=== PATIENT | female | born 1975 | race Two or more races ===

== ENCOUNTER 2020-01-14 08:03 | Emergency (ER) | payer MEDICAID, SELFPAY ==
[2020-01-14 08:12] VITALS: BP 119/63; PULSE 79; RESP 16; TEMP 36.3; O2SAT 99; BMI 22.1
--- NOTE | 2020-01-14 08:12 | XR_ITS ---
EXAMINATION: XR CHEST CLINICAL INFORMATION: Cough COMPARISON: Chest radiographs 05/26/2019, 04/23/2019 TECHNIQUE: Frontal x2 views of the chest was obtained. FINDINGS: The lungs are clear. The vascularity is normal. There is no airspace consolidation or effusion. The heart is normal in size. The hilar and mediastinal contours and visualized bony structures are unremarkable. IMPRESSION: Unremarkable examination.
--- NOTE | 2020-01-14 08:12 | ED.URI ---
HPI - URI/Sore Throat General Chief Complaint: Upper Respiratory Symptoms Stated Complaint: cold symptoms Time Seen by Provider: 01/14/20 08:11 Source: patient Mode of arrival: ambulatory Limitations: no limitations History of Present Illness MD elicited complaint: cough and rhinorrhea Pertinent past history: asthma Onset (ago): day(s) (7) Consistency: constant Severity: moderate Description of mucous: clear and watery Able to tolerate fluids by mouth: Yes Exacerbating factors: nothing Relieving factors: nothing Associated symptoms: chills, myalgias, rhinorrhea, nasal congestion, cough and shortness of breath Treatments prior to arrival: other (using inhaler more frequently ) Related Data Previous Rx's Medication Instructions Recorded prednisone 40 mg PO DAILY 5 Days #10 tab 01/14/20 Allergies Allergy/AdvReac Type Severity Reaction Status Date / Time No Known Allergies Allergy Unverified 12/20/19 15:51 dust Allergy Unknown Uncoded 08/03/11 00:00 NKDA Allergy Unknown Uncoded 08/03/11 00:00 Review of Systems Review of Systems: Constitutional : no Fever, positive Chills, positive fatigue, positive Malaise ENT/Mouth : no sore throat, positive runny nose Eyes: No Discharge Cardiovascular : No Chest Pain, positive dyspnea Respiratory : positive Cough, No Sputum Gastrointestinal : No Nausea, No Vomiting, No Diarrhea Genitourinary : No Dysuria, No Urinary Frequency Musculoskeletal : positive Myalgia Skin : No rash Neuro : No Headache PMFSH Past Medical History Medical History Asthma Surgical History History of carpal tunnel release Social History Social History (Updated 01/14/20 @ 08:13 by Queenie Duffy DO) Smoking Status: Current every day smoker Use of substances other than those prescribed or required for medical reasons: No Advance Directives: No Advance Directives Information Provided: Yes Physical Exam Vital Signs: Vital Signs: Vital Signs Temp Pulse Resp BP Pulse Ox 01/14/20 08:12 97.3 F 79 16 119/63 99 Body Mass Index 22.1 Appearance: Alert. Oriented X3. No acute distress. Eyes: Pupils equal, round and reactive to light. ENT: Pharynx normal. Neck: Normal inspection. Neck supple. CVS: Normal heart rate and rhythm. Pulses normal. Respiratory: No respiratory distress. Breath sounds normal. Abdomen: Soft and nontender. Skin: Skin warm and dry. Normal skin color. Normal skin turgor. Extremities: No lower extremity edema. Normal ROM Neuro: Oriented X 3. No motor deficit. No sensory deficit. Course Course Course Narrative: negative CXR stable for DC MDM - URI/Sore Throat MDM Narrative Medical decision making narrative: not toxic, well hydrated, no hypoxia, clear lungs hx of asthma here with URI will obtain CXR to r/o pneumonia, using INH at home frequently - start on steroids and test for COVID. Discharge Plan Discharge Clinical Impression: Upper respiratory infection Patient Disposition: Home, Self-Care Instructions: Viral Syndrome (ED), COVID-19 (Coronavirus Disease 2019) (ED) Prescriptions: New prednisone 20 mg tablet 40 mg PO DAILY 5 Days Qty: 10 RF: 0 Referrals: Dory Ray MD [Primary Care Provider] - 2 days (if not better)
== END 2020-01-14 09:00 | disposition home or self-care (01) ==
LOC: HO.ED 08:39
PROVIDERS: Emergency Provider Emergency Medicine; PCP Internal Medicine
DX: J06.9 Acute upper respiratory infection, unspecified (principal); Z20.828 Contact with and (suspected) exposure to other viral communicable diseases; J02.9 Acute pharyngitis, unspecified; J45.909 Unspecified asthma, uncomplicated; F17.200 Nicotine dependence, unspecified, uncomplicated
CPT/HCPCS: 71045; 87635; 99284

== ENCOUNTER 2020-02-06 09:31 | Outpatient (REF) | payer MEDICAID, SELFPAY ==
[2020-02-06 13:21] LABS: CT PCR NOT DETECTED (Not Detect.); NG PCR NOT DETECTED (Not Detect.)
== END 2020-02-06 09:32 | disposition home or self-care (01) ==
LOC: HO.LAB 09:31
PROVIDERS: PCP Internal Medicine; Visit Provider Obstetrics & Gynecology
DX: Z01.419 Encounter for gynecological examination (general) (routine) without abnormal findings (principal); N84.1 Polyp of cervix uteri; R10.2 Pelvic and perineal pain; N92.1 Excessive and frequent menstruation with irregular cycle; N63.13 Unspecified lump in the right breast, lower outer quadrant; F17.200 Nicotine dependence, unspecified, uncomplicated; Z79.52 Long term (current) use of systemic steroids
CPT/HCPCS: 81025; 87491; 87591; 88305

== ENCOUNTER 2020-02-18 09:54 | Outpatient (REF) | payer MEDICAID, SELFPAY ==
[2020-02-18 11:36] LABS: Hemoglobin 12.3 g/dl (12.0-16.0); Mean Corpuscular HGB Conc 33.2 g/dl (31.0-35.0); Mean Corpuscular Volume 96.4 fL (80-98); Mean Platelet Volume 10.3 fL (9.4-12.3); Platelet Count 247 X10*3/uL (160-400); Red Blood Count 3.84 X10*6/uL (4.20-5.50); Red Cell Distribution Width 13.1 % (11.0-16.0); White Blood Count 6.1 X10*3/uL (4.8-10.8)
[2020-02-18 12:21] LABS: Thyroid Stimulating Hormone 2.12 uIU/mL (0.32-4.0)
[2020-02-18 12:38] LABS: HCG Quantitative 3 mIU/mL
== END 2020-02-18 09:55 | disposition home or self-care (01) ==
LOC: HO.LAB 09:54
PROVIDERS: PCP Internal Medicine; Visit Provider Obstetrics & Gynecology
DX: N92.1 Excessive and frequent menstruation with irregular cycle (principal); R10.2 Pelvic and perineal pain
CPT/HCPCS: 36415; 84443; 84702; 85027

== ENCOUNTER → 2020-02-19 10:22 | Outpatient (BNVA) | payer MEDICAID, SELFPAY | PROVIDERS: PCP Internal Medicine; Visit Provider Urology | DX: N39.3 Stress incontinence (female) (male) (principal) | CPT/HCPCS: 51798 ==

== ENCOUNTER 2020-02-20 13:46 | Outpatient (REF) | payer MEDICAID, SELFPAY ==
--- NOTE | 2020-02-20 13:51 | MM_ITS ---
EXAMINATION: MM DIAGNOSTIC DIGITAL BREAST TOMOSYNTHESIS, BILATERAL US DIAGNOSTIC ULTRASOUND BREAST, RIGHT CLINICAL INFORMATION: Chronic palpable olive-sized nodule noted by patient posterior inferior right breast near inframammary fold 7:00 position. Also pain right 8:00-9:00 position. No discharge. Family history breast cancer in sister. The lifetime risk of breast cancer based on the Tyrer-Cuzick Model is 15%. COMPARISON: Mammography: 03/01/2018, 12/27/2016, 06/16/2016, 11/21/2015 TECHNIQUE: Digital breast tomosynthesis is performed in both the craniocaudal and mediolateral oblique views along with computer-aided detection (CAD). Synthesized 2D images are generated from the tomosynthesis. Additional exaggerated right CC view is provided. Ultrasound right breast is targeted to both areas of concern, palpable area inferior breast and lateral breast. Patient is able to point to the areas of concern at time of imaging. Grayscale imaging and color Doppler are performed without and with harmonics. FINDINGS: There are scattered areas of fibroglandular density (ACR BI-RADS breast composition Category b). Breast parenchymal pattern is similar to prior studies. There is no developing density. There is denser breast tissue in the outer quadrant similar to prior studies. There is no interval mass or architectural abnormality. No abnormal calcification. No skin thickening or coarsening of the Hugo's ligaments. No adenopathy. Ultrasound right breast demonstrates no cystic or solid mass, architectural abnormality, or focal duct ectasia. No skin thickening or edema tracking in the soft tissue planes. Results are discussed with the patient at time of visit. MM/MM diagnostic mammo BI IMPRESSION: 1. No mammographic evidence of malignancy or focal inflammatory changes. 2. Unremarkable targeted right breast ultrasound. ASSESSMENT: BI-RADS 1: Negative RECOMMENDATION: 1. Patient should be managed based on the clinical impression. If clinically indicated, further evaluation may be considered with surgical consult. Decision to proceed with biopsy should be based on clinical grounds and degree of clinical concern. 2. Otherwise, routine annual screening mammography. This patient's information was entered into a reminder system with a target due date for their next mammogram.
== END 2020-02-20 13:47 | disposition home or self-care (01) ==
LOC: HO.MAMMO 13:46
PROVIDERS: PCP Internal Medicine; Visit Provider Obstetrics & Gynecology
DX: N63.13 Unspecified lump in the right breast, lower outer quadrant (principal); N64.52 Nipple discharge; F17.200 Nicotine dependence, unspecified, uncomplicated; Z79.899 Other long term (current) drug therapy
CPT/HCPCS: 76642; 77066; 99202

== ENCOUNTER 2020-02-22 10:16 | Outpatient (REF) | payer MEDICAID, SELFPAY | END 2020-02-22 10:17 | disposition home or self-care (01) | LOC: HO.CT 10:16 | PROVIDERS: Visit Provider Obstetrics & Gynecology | DX: Z13.89 Encounter for screening for other disorder (principal) ==

== ENCOUNTER 2020-03-05 08:24 | Outpatient (REF) | payer MEDICAID, SELFPAY ==
[2020-03-06 09:36] LABS: BV Int Neg Control Negative (Negative); BV Int Pos Control Positive (Positive)
[2020-03-11 11:30] LABS: CT PCR NOT DETECTED (Not Detect.); NG PCR NOT DETECTED (Not Detect.)
== END 2020-03-05 08:25 | disposition home or self-care (01) ==
LOC: HO.LNP 08:24
PROVIDERS: PCP Internal Medicine; Visit Provider Obstetrics & Gynecology
DX: N76.0 Acute vaginitis (principal); N92.1 Excessive and frequent menstruation with irregular cycle; B96.89 Other specified bacterial agents as the cause of diseases classified elsewhere
CPT/HCPCS: 87480; 87491; 87510; 87591; 87660; 99212

== ENCOUNTER 2020-03-07 07:49 | Outpatient (REF) | payer MEDICAID, SELFPAY ==
--- NOTE | 2020-03-07 07:52 | CT_ITS ---
EXAMINATION: CT ABDOMEN AND PELVIS WITH CONTRAST CLINICAL INFORMATION: R10.2 - Pelvic and perineal pain. Age 44. COMPARISON: CT abdomen and pelvis with contrast 11/14/2019, 03/03/2019 TECHNIQUE: Multidetector volumetric images were obtained from the superior aspect of the liver through the pubic symphysis following administration 85 mL of Omnipaque 350 intravenous contrast. Sagittal and coronal reformatted images were obtained on the technologist's workstation. Oral contrast: No This CT examination was performed using dose optimization techniques as appropriate, variously including the following: *Automated exposure control *Adjustment of mA and/or kV according to patient size (this includes techniques or standardized protocols for targeted exams where dose is matched to indication/reason for exam; i.e. extremities or head) *Use of iterative reconstruction technique DLP: 264 mGy-cm FINDINGS: LUNG BASES: Minor disc atelectasis left lateral and bilateral posterior bases. No airspace consolidation or effusion. LIVER, GALLBLADDER, AND BILIARY TREE: Liver is normal in size and smooth in contour and normal in attenuation. There is no focal hepatic parenchymal lesion or intrahepatic ductal dilatation. The gallbladder is unremarkable with no evidence of radiopaque gallstones, gallbladder wall thickening, or obvious pericholecystic inflammatory changes. PANCREAS: Unremarkable. SPLEEN: Unremarkable. ADRENAL GLANDS: Unremarkable. KIDNEYS AND URETERS: The kidneys are normal in size and smooth in contour and enhance symmetrically. There is a small cyst again noted lower pole left kidney. No hydronephrosis, hydroureter, or perinephric stranding. BLADDER: Unremarkable. GASTROINTESTINAL TRACT: There is no bowel obstruction or inflammatory changes in the bowel or mesentery. There is moderate stool scattered throughout the colon. The appendix is normal. No ascites or fluid collection. ABDOMINAL WALL: No significant hernia is appreciated. LYMPH NODES: No lymphadenopathy. VASCULAR: Unremarkable. PELVIC VISCERA: Bilateral tubal ligation clips suggested. Anteverted uterus. Benign-appearing left adnexal cyst with fine nonenhancing internal septation and overall size 5.0 x 4.0 x 3.6 cm. No right adnexal mass. No pelvic ascites or fluid collection. OSSEOUS STRUCTURES: Unremarkable. CT/CT abdomen pelvis w con IMPRESSION: 1. Benign-appearing left adnexal cyst 5.0 x 4.0 x 3.6 cm with single fine avascular internal septation. No ascites. 2. No inflammatory changes in bowel or mesentery. Normal appendix.
[2020-03-07] MEDS: iohexoL 350 MG/ML 100 ML INFUS..BTL 85 ML IV (10:49)
[2020-03-07] MEDS: Barium Sulfate Oral (Berry) 450 ML ORAL.SUSP 900 ML PO (10:50)
== END 2020-03-07 07:50 | disposition home or self-care (01) ==
LOC: HO.CT 07:49
PROVIDERS: PCP Internal Medicine; Visit Provider Obstetrics & Gynecology
DX: R10.2 Pelvic and perineal pain (principal)
CPT/HCPCS: 74177; Q9967

== ENCOUNTER 2020-03-24 13:43 | Emergency (ER) | payer MEDICAID, SELFPAY ==
[2020-03-24 13:57] VITALS: BP 113/61; PULSE 81; RESP 15; TEMP 36.6; O2SAT 98; BMI 22.3
== END 2020-03-24 17:46 | disposition left against medical advice (07) ==
PROVIDERS: Emergency Provider Emergency Medicine; PCP Internal Medicine
DX: R10.9 Unspecified abdominal pain (principal); R11.0 Nausea
CPT/HCPCS: 99282

== ENCOUNTER 2020-03-26 07:51 | Outpatient (REF) | payer MEDICAID, SELFPAY ==
[2020-03-26 10:15] LABS: HCG Quantitative < 2 mIU/mL
[2020-03-27 10:07] LABS: Follicle Stimulating Hormone 12.4 mIU/mL; Lutenizing Hormone 12.9 mIU/mL
[2020-03-27 11:42] LABS: CA-125 15 U/mL (<35)
== END 2020-03-26 07:52 | disposition home or self-care (01) ==
LOC: HO.LAB 07:51
PROVIDERS: PCP Internal Medicine; Visit Provider Obstetrics & Gynecology
DX: N83.299 Other ovarian cyst, unspecified side (principal); N92.1 Excessive and frequent menstruation with irregular cycle; R79.89 Other specified abnormal findings of blood chemistry
CPT/HCPCS: 58100; 81025; 83001; 83002; 84702; 86304; 99212

== ENCOUNTER → 2020-04-09 08:39 | Outpatient (BNVA) | payer MEDICAID, SELFPAY | PROVIDERS: PCP Internal Medicine; Visit Provider Obstetrics & Gynecology | DX: N63.11 Unspecified lump in the right breast, upper outer quadrant (principal); N92.1 Excessive and frequent menstruation with irregular cycle | CPT/HCPCS: 99212 ==

== ENCOUNTER 2020-04-17 14:10 | Outpatient (REF) | payer MEDICAID, SELFPAY | END 2020-04-17 14:11 | disposition home or self-care (01) | LOC: HO.LAB 14:10 | PROVIDERS: Visit Provider Internal Medicine | DX: Z20.822 Contact with and (suspected) exposure to COVID-19 (principal) | CPT/HCPCS: 36415; C9803; U0003 ==

== ENCOUNTER 2020-04-22 07:46 | Emergency (ER) | payer MEDICAID, SELFPAY | END 2020-04-22 11:16 | disposition left against medical advice (07) | PROVIDERS: Emergency Provider Emergency Medicine; PCP Internal Medicine | DX: J45.909 Unspecified asthma, uncomplicated (principal) ==

== ENCOUNTER 2020-04-24 09:33 | Outpatient (REF) | payer MEDICAID, SELFPAY | END 2020-04-24 09:34 | disposition home or self-care (01) | LOC: HO.LAB 09:33 | PROVIDERS: PCP Internal Medicine; Visit Provider Obstetrics & Gynecology | DX: N84.1 Polyp of cervix uteri (principal); N92.1 Excessive and frequent menstruation with irregular cycle; N76.0 Acute vaginitis; B96.89 Other specified bacterial agents as the cause of diseases classified elsewhere | CPT/HCPCS: 88305; 99212 ==

== ENCOUNTER 2020-04-28 16:54 | Outpatient (REF) | payer MEDICAID, SELFPAY | END 2020-04-28 16:55 | disposition home or self-care (01) | LOC: HO.LAB 16:54 | PROVIDERS: Visit Provider Internal Medicine | DX: Z20.822 Contact with and (suspected) exposure to COVID-19 (principal) | CPT/HCPCS: 36415; C9803; U0003 ==

== ENCOUNTER 2020-04-29 14:39 | Outpatient (REF) | payer MEDICAID, SELFPAY ==
--- NOTE | 2020-04-29 14:42 | US_ITS ---
EXAMINATION: PELVIC ULTRASOUND CLINICAL INFORMATION: Ovarian cyst. The right ovary has been removed. COMPARISON: Previous pelvic ultrasound most recent October 2019 CT of the abdomen and pelvis March 2020 TECHNIQUE: Transabdominal and transvaginal pelvic ultrasound was performed. Transvaginal exam was performed for better visualization of the uterus and ovaries. FINDINGS: The uterus is anteverted and measures 8.7 x 4 x 5.9 cm in dimension. There is a 1.1 x 1 x 1.1 cm complex cystic lesion in the anterior uterine body adjacent to the endometrium questionable for a small fibroid. No other focal uterine lesion is seen. Endometrial thickness is normal measuring 1.1 cm. There are nabothian cysts in the cervix. The right ovary has reportedly been removed. The left ovary measures 2.7 x 2.8 x 2.3 cm. There is a 1.8 x 1.7 x 1.6 cm minimally complex cyst with slightly thickened wall and internal echoes. The previously identified 3.5 x 4 cm left ovarian cyst on CT 11/22/2019 is no longer seen. There is no fluid in the pelvis. US/US transvaginal IMPRESSION: Resolved 3.5 x 4 cm left ovarian cyst from CT March 2020. 1.8 x 1.7 x 1.6 cm minimally complex probable physiologic left ovarian cyst. Question small uterine fibroid.
--- NOTE | 2020-04-29 14:42 | US_ITS ---
EXAMINATION: PELVIC ULTRASOUND CLINICAL INFORMATION: Ovarian cyst. The right ovary has been removed. COMPARISON: Previous pelvic ultrasound most recent October 2019 CT of the abdomen and pelvis March 2020 TECHNIQUE: Transabdominal and transvaginal pelvic ultrasound was performed. Transvaginal exam was performed for better visualization of the uterus and ovaries. FINDINGS: The uterus is anteverted and measures 8.7 x 4 x 5.9 cm in dimension. There is a 1.1 x 1 x 1.1 cm complex cystic lesion in the anterior uterine body adjacent to the endometrium questionable for a small fibroid. No other focal uterine lesion is seen. Endometrial thickness is normal measuring 1.1 cm. There are nabothian cysts in the cervix. The right ovary has reportedly been removed. The left ovary measures 2.7 x 2.8 x 2.3 cm. There is a 1.8 x 1.7 x 1.6 cm minimally complex cyst with slightly thickened wall and internal echoes. The previously identified 3.5 x 4 cm left ovarian cyst on CT 11/22/2019 is no longer seen. There is no fluid in the pelvis. US/US pelvic complete IMPRESSION: Resolved 3.5 x 4 cm left ovarian cyst from CT March 2020. 1.8 x 1.7 x 1.6 cm minimally complex probable physiologic left ovarian cyst. Question small uterine fibroid.
== END 2020-04-29 14:40 | disposition home or self-care (01) ==
LOC: HO.US 14:39
PROVIDERS: Visit Provider Obstetrics & Gynecology
DX: N83.299 Other ovarian cyst, unspecified side (principal)
CPT/HCPCS: 76830; 76856

== ENCOUNTER → 2020-05-13 11:38 | Outpatient (BNVA) | payer MEDICAID, SELFPAY | PROVIDERS: PCP Internal Medicine; Visit Provider Obstetrics & Gynecology ==

== ENCOUNTER 2020-05-27 19:17 | Emergency (ER) | payer MEDICAID, SELFPAY ==
--- NOTE | ~2020-05-27 | CT_ITS ---
EXAMINATION: CT ANGIOGRAM OF THE CHEST WITH AND WITHOUT CONTRAST (CT PULMONARY ANGIOGRAM FOR PE) CLINICAL INFORMATION: Reason for Exam pain on inspiration, tachycardia COMPARISON: Chest x-ray 01/14/2020. CT of chest 03/07/2019 TECHNIQUE: Prior to contrast administration, noncontrast localization images were obtained. Subsequently, multidetector volumetric imaging was performed from the thoracic inlet to below the diaphragms following the administration of 55 mL Omnipaque 350 intravenous contrast. No contrast reaction reported Sagittal, coronal, and MIP oblique sagittal reformatted images were obtained on the CT workstation, uploaded to PACS, and reviewed. This CT examination was performed using dose optimization techniques as appropriate, variously including the following: *Automated exposure control *Adjustment of mA and/or kV according to patient size (this includes techniques or standardized protocols for targeted exams where dose is matched to indication/reason for exam; i.e. extremities or head) *Use of iterative reconstruction technique Total exam dose-length product 185 mGy-cm FINDINGS: QUALITY OF STUDY/CONTRAST BOLUS: Satisfactory. PULMONARY ARTERIES: No central or segmental pulmonary emboli. THORACIC AORTA: No aneurysm or dissection. LUNG: No acute airspace disease. No interstitial lung disease. There is no bronchiectasis. Lung nodules: The previously seen 2 mm nodule in the left lower lobe on the CAT scan to 03/07/2019 is stable axial image 346/499 series 603. This is benign nodule with no further follow-up needed. There are no new lung nodules. PLEURA: No pleural effusion or pneumothorax. MEDIASTINUM: Normal heart size. No pericardial effusion. No hilar or mediastinal lymphadenopathy. No evidence of septal bowing or right heart strain. CHEST WALL/AXILLA: No axillary or internal mammary lymphadenopathy. OSSEOUS STRUCTURES: No acute or suspicious osseous abnormality. UPPER ABDOMEN: Unremarkable. No reflux of contrast into the hepatic veins to suggest elevated right heart pressures. CT/CT angio chest PE protocol IMPRESSION: Normal CT of chest. No evidence of pulmonary embolism. VTE: negative
[2020-05-27 20:20] VITALS: BP 107/64; PULSE 92; RESP 18; TEMP 37.3; O2SAT 99; BMI 22.3
--- NOTE | 2020-05-27 20:54 | ECG_ITS ---
Test Reason : CHEST PAIN Blood Pressure : / mmHG Vent. Rate : 074 BPM Atrial Rate : 074 BPM P-R Int : 110 ms QRS Dur : 082 ms QT Int : 348 ms P-R-T Axes : 058 065 054 degrees QTc Int : 386 ms Sinus rhythm with sinus arrhythmia with short GA Otherwise normal ECG When compared with ECG of 07-MAR-2019 11:29, No significant change was found Referred By: Karley Venegas Electronically Signed By:QUITA CERVANTES MD
--- NOTE | 2020-05-27 20:57 | ED.URI ---
HPI - URI/Sore Throat General Chief Complaint: Upper Respiratory Symptoms Stated Complaint: COVID + Time Seen by Provider: 05/27/20 21:48 Source: patient Mode of arrival: ambulatory Limitations: no limitations History of Present Illness HPI Narrative: 44-year-old female with past medical history of arthritis, asthma, depression, fibromyalgia, migraines, breast lumps with strong family history of breast cancer, menorrhagia, recent COVID positive test presents with increased shortness of breath, shortness of breath on exertion, pain on inspiration to the left lateral chest wall, dizziness, and palpitations. She states that her symptoms have worsened, and that [id number] medications are not subsiding her symptoms. MD elicited complaint: fever and cough Pertinent past history: other (Positive COVID-19) Onset (ago): day(s) Consistency: constant Severity: moderate Pain scale (0-10): 7 Description of mucous: clear Able to tolerate fluids by mouth: Yes Exacerbating factors: exertion and deep breaths Relieving factors: nothing Associated symptoms: myalgias, headache, chest pain and shortness of breath Treatments prior to arrival: acetaminophen and ibuprofen Related Data Home Medications Medication Instructions Recorded Confirmed cyclobenzaprine 10 mg tablet 10 mg PO BEDTIME 02/20/20 05/13/20 loratadine 10 mg capsule 10 mg PO DAILY 02/20/20 05/13/20 paroxetine HCl 40 mg tablet 50 mg PO DAILY tab 02/20/20 05/13/20 tramadol 50 mg tablet 50 mg PO DAILY 02/20/20 05/13/20 mirtazapine 15 mg tablet 15 mg PO DAILY 05/13/20 05/13/20 Previous Rx's Medication Instructions Recorded metronidazole 500 mg tablet 500 mg PO BID 7 Days #14 tab 03/05/20 metronidazole 500 mg tablet 500 mg PO BID 7 Days #14 tab 04/24/20 azithromycin 250 mg PO DAILY 5 Days #5 tab 05/27/20 benzonatate [Tessalon Perles] 100 mg PO TID PRN #30 cap 05/27/20 Allergies Allergy/AdvReac Type Severity Reaction Status Date / Time dust Allergy Unknown unknown Uncoded 05/27/20 20:20 Review of Systems Review of Systems: Constitutional: positive Fever, positive Chills, positive fatigue, positive Malaise ENT/Mouth: No sore throat, positive runny nose Eyes: No Discharge Cardiovascular: Positive Chest Pain, positive SOB, positive SOB on exertion, positive pain on inspiration Respiratory: Positive Cough, No Sputum, No Wheezing, No Smoke Exposure, No Dyspnea Gastrointestinal: No Nausea, No Vomiting, No Diarrhea Genitourinary: no irregular bleeding, No Dysuria, No Urinary Frequency, No Hematuria, No Urinary Incontinence, No Urgency, No Flank Pain, Musculoskeletal: positive Myalgia Skin: No rash Neuro: No Headache Yes all other systems are reviewed and are negative PMFSH Past Medical History Attestation statement: The following information was validated with the patient. Source: old records reviewed Medical History Arthritis Asthma Depression Fibromyalgia Migraines Surgical History H/O LEEP History of bilateral tubal ligation History of carpal tunnel release History of salpingo-oophorectomy Family History Family History Sister History of breast cancer, Onset Age: 52 Brother History of bone cancer History of blood disorder History of brain cancer Paternal Aunt History of cancer of uterus Social History Social History Alcohol intake: never Smoking Status: Current every day smoker Use of substances other than those prescribed or required for medical reasons: No Advance Directives: No Advance Directives Information Provided: No Sexual orientation: Straight/Heterosexual Gender identity: female Physical Exam Vital Signs: Vital Signs: Last Vital Signs Temp 98.4 F 05/27/20 21:41 Pulse 86 05/27/20 21:41 Resp 19 05/27/20 21:41 BP 139/85 05/27/20 21:41 Pulse Ox 98 05/27/20 21:43 Body Mass Index 22.3 Appearance: Alert. Oriented X3. Mild distress. Eyes: Pupils equal, round and reactive to light. Sclera nonicteric ENT: Pharynx normal. Neck: Normal inspection. Neck supple. No JVD CVS: Tachycardic heart rate and rhythm. Pulses normal. Respiratory: No respiratory distress. Lung sounds expiratory wheezing throughout Abdomen: Soft and nontender. Skin: Skin warm and dry. Normal skin color. Normal skin turgor. Extremities: No lower extremity edema. Neuro: No motor deficit. No sensory deficit. Cranial nerves 2-12 intact, gait well balanced well coordinated Course Course Course Narrative: 44-year-old female recently COVID positive presents with increased shortness of breath on exertion, chest pain, chest pain on inspiration, slightly tachycardic with heart rate of 103 regular rhythm. Patient has had total hysterectomy with bilateral oophorectomy and salpingectomy, has a strong family history of breast cancer. Based on her presentation will order CT PE study, rule out ACS, repeat COVID test. COVID is positive. CT PE study is negative. EKG is normal sinus with shortened CT interval no changes from prior EKGs. At this time will treat with azithromycin, albuterol, and Tessalon. Will discharge home as she is not hypoxic, has even unlabored respirations no accessory muscle use, lactic acid is negative no indication of sepsis, patient verbalized understanding of and agrees to plan of care discharge home. MDM - URI/Sore Throat MDM Narrative Medical decision making narrative: Pulmonary embolism, pneumonia Differential Diagnosis Differential diagnosis: Likely upper respiratory infection, otitis media, sinusitis, viral infection, bronchitis, influenza and pharyngitis Medical Records Attestation: I reviewed the patient's medical records. Lab Data Attestation: I reviewed the patient's lab results. Result diagrams: 05/27/20 21:38 05/27/20 21:38 Labs: Lab Results 05/27/20 05/27/20 05/27/20 Range/Units 21:38 21:38 21:38 WBC 4.9 (4.8-10.8) X10*3/uL RBC 3.70 L (4.20-5.50) X10*6/uL Hgb 11.8 L (12.0-16.0) g/dl Hct 35.2 L (37-47) % MCV 95.1 (80-98) fL MCH 31.9 (27.0-33.0) pg MCHC 33.5 (31.0-35.0) g/dl RDW 12.7 (11.0-16.0) % Plt Count 207 (160-400) X10*3/uL MPV 9.9 (9.4-12.3) fL Immature Gran % (Auto) 0.2 (0.0-0.4) % Neut % (Auto) 55.6 (45-73) % Lymph % (Auto) 30.3 (20-40) % [place] % (Auto) 11.7 H (2-11) % Eos % (Auto) 1.8 (0-4) % Baso % (Auto) 0.4 (0-2) % Lymph # (Auto) 1.5 (1.2-4.9) X10*3/uL [place] # (Auto) 0.6 (0.1-1.2) X10*3/uL Eos # (Auto) 0.1 (0.0-0.4) X10*3/uL Baso # (Auto) 0.0 (0.0-0.2) X10*3/uL Abs Immat Gran (auto) 0.01 (0.00-0.03) X10*3/uL Absolute Neuts (auto) 2.7 (2.0-8.3) X10*3/uL Absolute Nucleated RBC 0.000 (0.0-0.012) X10*3/uL Nucleated RBC % (auto) 0.0 (0.0-0.2) /100WBC PT (10.8-13.0) SEC INR (0.9-1.1) APTT (24.1-38.0) SEC Hold Blue Top Sodium 138 (135-145) mmol/L Potassium 4.3 (3.3-5.1) mmol/L Chloride 108 (96-108) mmol/L Carbon Dioxide 23 (22-29) mmol/L Anion Gap 11 L (12-20) BUN 11 (9-16) mg/dL Creatinine 0.73 (0.5-1.4) mg/dL Estim Creat Clear Calc 83.1 Estimated GFR > 60 Random Glucose 84 (60-115) mg/dL Calcium 9.1 (8.4-10.2) mg/dL Total Bilirubin 0.2 (0.0-1.0) mg/dL Direct Bilirubin < 0.2 (0.0-0.5) mg/dL AST 14 (5-31) U/L ALT 11 (0-31) U/L Alkaline Phosphatase 34 L (39-117) U/L Troponin I High Sens < 3.5 (<3.5-17.0) ng/L Total Protein 6.8 (6.5-8.0) g/dL Albumin 4.2 (3.5-5.0) g/dL Lipase 55 (8-78) U/L Coronavirus (PCR) (Negative) Influenza Type A (PCR) (Negative) Influenza Type B (PCR) (Negative) RSV RNA Qual (PCR) (Negative) 05/27/20 05/27/20 Range/Units 21:40 21:46 WBC (4.8-10.8) X10*3/uL RBC (4.20-5.50) X10*6/uL Hgb (12.0-16.0) g/dl Hct (37-47) % MCV (80-98) fL MCH (27.0-33.0) pg MCHC (31.0-35.0) g/dl RDW (11.0-16.0) % Plt Count (160-400) X10*3/uL MPV (9.4-12.3) fL Immature Gran % (Auto) (0.0-0.4) % Neut % (Auto) (45-73) % Lymph % (Auto) (20-40) % [place] % (Auto) (2-11) % Eos % (Auto) (0-4) % Baso % (Auto) (0-2) % Lymph # (Auto) (1.2-4.9) X10*3/uL [place] # (Auto) (0.1-1.2) X10*3/uL Eos # (Auto) (0.0-0.4) X10*3/uL Baso # (Auto) (0.0-0.2) X10*3/uL Abs Immat Gran (auto) (0.00-0.03) X10*3/uL Absolute Neuts (auto) (2.0-8.3) X10*3/uL Absolute Nucleated RBC (0.0-0.012) X10*3/uL Nucleated RBC % (auto) (0.0-0.2) /100WBC PT 11.6 (10.8-13.0) SEC INR 1.0 (0.9-1.1) APTT 36.2 (24.1-38.0) SEC Hold Blue Top SEE NOTE Sodium (135-145) mmol/L Potassium (3.3-5.1) mmol/L Chloride (96-108) mmol/L Carbon Dioxide (22-29) mmol/L Anion Gap (12-20) BUN (9-16) mg/dL Creatinine (0.5-1.4) mg/dL Estim Creat Clear Calc Estimated GFR Random Glucose (60-115) mg/dL Calcium (8.4-10.2) mg/dL Total Bilirubin (0.0-1.0) mg/dL Direct Bilirubin (0.0-0.5) mg/dL AST (5-31) U/L ALT (0-31) U/L Alkaline Phosphatase (39-117) U/L Troponin I High Sens (<3.5-17.0) ng/L Total Protein (6.5-8.0) g/dL Albumin (3.5-5.0) g/dL Lipase (8-78) U/L Coronavirus (PCR) POSITIVE A (Negative) Influenza Type A (PCR) NEGATIVE (Negative) Influenza Type B (PCR) NEGATIVE (Negative) RSV RNA Qual (PCR) NEGATIVE (Negative) Imaging Data CT PE study: Attestation: I personally reviewed and interpreted this imaging study as follows: Radiologist's impression: EXAMINATION: CT ANGIOGRAM OF THE CHEST WITH AND WITHOUT CONTRAST (CT PULMONARY ANGIOGRAM FOR PE) CLINICAL INFORMATION: Reason for Exam pain on inspiration, tachycardia COMPARISON: Chest x-ray 01/14/2020. CT of chest 03/07/2019 TECHNIQUE: Prior to contrast administration, noncontrast localization images were obtained. Subsequently, multidetector volumetric imaging was performed from the thoracic inlet to below the diaphragms following the administration of 55 mL Omnipaque 350 intravenous contrast. No contrast reaction reported Sagittal, coronal, and MIP oblique sagittal reformatted images were obtained on the CT workstation, uploaded to PACS, and reviewed. This CT examination was performed using dose optimization techniques as appropriate, variously including the following: *Automated exposure control *Adjustment of mA and/or kV according to patient size (this includes techniques or standardized protocols for targeted exams where dose is matched to indication/reason for exam; i.e. extremities or head) *Use of iterative reconstruction technique Total exam dose-length product 185 mGy-cm FINDINGS: QUALITY OF STUDY/CONTRAST BOLUS: Satisfactory. PULMONARY ARTERIES: No central or segmental pulmonary emboli. THORACIC AORTA: No aneurysm or dissection. LUNG: No acute airspace disease. No interstitial lung disease. There is no bronchiectasis. Lung nodules: The previously seen 2 mm nodule in the left lower lobe on the CAT scan to 03/07/2019 is stable axial image 346/499 series 603. This is benign nodule with no further follow-up needed. There are no new lung nodules. PLEURA: No pleural effusion or pneumothorax. MEDIASTINUM: Normal heart size. No pericardial effusion. No hilar or mediastinal lymphadenopathy. No evidence of septal bowing or right heart strain. CHEST WALL/AXILLA: No axillary or internal mammary lymphadenopathy. OSSEOUS STRUCTURES: No acute or suspicious osseous abnormality. UPPER ABDOMEN: Unremarkable. No reflux of contrast into the hepatic veins to suggest elevated right heart pressures. CT/CT angio chest PE protocol IMPRESSION: Normal CT of chest. No evidence of pulmonary embolism. VTE: negative ECG Data Attestation: I personally reviewed and interpreted this ECG as follows: ECG interpretation date: 05/27/20 ECG interpretation time: 21:38 Prior ECG tracings: available for review Interpretation: Vent. rate [address] interval 110 ms QRS duration 82 ms QT/QTc 348/386 ms P-R-T axes 58 65 54 Sinus rhythm with sinus arrhythmia with short CT Otherwise normal ECG When compared with ECG of 07-MAR-2019 11:29, No significant change was found Discharge Plan Discharge Clinical Impression: COVID-19, Non-cardiac chest pain Patient Disposition: Home, Self-Care Instructions: Noncardiac Chest Pain (ED), COVID-19 (Coronavirus Disease 2019) (ED) Additional Instructions: Usted fue evaluado para detectar s?ntomas consistentes con COVID-19, as? praveena dolor en el pecho en la inspiraci?n a los lados laterales. Pedimos shyann tomograf?a computarizada para descartar la embolia pulmonar. Esta tomograf?a computarizada fue negativa, no tienes co?gulos sangu?neos en los pulmones. Monge electrocardiograma era el ritmo sinusal normal, jonathon enzimas card?acas nicholas negativas. Usted es positivo para COVID-19. Por favor, contin?e manteniendo las directrices estatales y federales para el aislamiento social. Es monge responsabilidad mantener estas directrices. Utilice Tesal?n Perles seg?n sea necesario para la tos. Curso completo de azitromicina. Utilice albuterol seg?n sea necesario para la dificultad para respirar. Sarah por elegir aleksandr departamento de emergencias para monge evaluaci?n. Por favor, jorge un seguimiento con el m?dico de atenci?n primaria seg?n sea necesario. Regrese al servicio de emergencias para cualquier s?ntoma nuevo, preocupante o que empeore. You were evaluated for symptoms consistent with COVID-19, as well as chest pain on inspiration to the lateral sides. We ordered a CT scan to rule out pulmonary embolism. This CT scan was negative, you do not have blood clots in the lungs. Your EKG was normal sinus rhythm, your cardiac enzymes were negative. You are positive for COVID-19. Please continue to maintain state and Federal guidelines for social isolation. It is your responsibility to maintain these guidelines. Use Tessalon Perles as needed for cough. Complete course of azithromycin. Use albuterol as needed for shortness of breath. Thank you for choosing this emergency department for evaluation. Please follow-up with primary care physician as needed. Return to the emergency department for any new, concerning, or worsening symptoms. Prescriptions: New azithromycin 250 mg tablet 250 mg PO DAILY 5 Days Qty: 5 RF: 0 benzonatate [Tessalon Perles] 100 mg capsule 100 mg PO TID PRN (Reason: cough) Qty: 30 RF: 0 No Action metronidazole 500 mg tablet 500 mg PO BID 7 Days Qty: 14 RF: 0 metronidazole [Flagyl] 500 mg tablet 500 mg PO BID 7 Days Qty: 14 RF: 0 loratadine 10 mg capsule 10 mg PO DAILY RF: 0 paroxetine HCl [Paxil] 40 mg tablet 50 mg PO DAILY RF: 0 tramadol 50 mg tablet 50 mg PO DAILY RF: 0 cyclobenzaprine 10 mg tablet 10 mg PO BEDTIME RF: 0 mirtazapine [Remeron] 15 mg tablet 15 mg PO DAILY RF: 0 Interventions: ED Discharge Assessment Last Done: 05/27/20 23:29 Discharge Date/Time: 05/27/20 23:50
[2020-05-27 21:41] VITALS: BP 139/85; PULSE 86; RESP 19; TEMP 36.9; O2SAT 100
[2020-05-27 21:43] VITALS: O2SAT 98
[2020-05-27 21:52] LABS: MANUAL DIFF FLAG NO
[2020-05-27 21:55] LABS: Basophils Percent Auto 0.4 % (0-2); Eosinophils Absolute Auto 0.1 X10*3/uL (0.0-0.4); Eosinophils Percent Auto 1.8 % (0-4); Hematocrit 35.2 % (37-47); Hemoglobin 11.8 g/dl (12.0-16.0); Imm Gran Abs Auto 0.01 X10*3/uL (0.00-0.03); Imm Gran Pct Auto 0.2 % (0.0-0.4); Lymphocytes Absolute Auto 1.5 X10*3/uL (1.2-4.9); Lymphocytes Percent Auto 30.3 % (20-40); Mean Corpuscular HGB Conc 33.5 g/dl (31.0-35.0); Mean Corpuscular Hemoglobin 31.9 pg (27.0-33.0); Mean Corpuscular Volume 95.1 fL (80-98); Mean Platelet Volume 9.9 fL (9.4-12.3); Monocytes Absolute Auto 0.6 X10*3/uL (0.1-1.2); Monocytes Percent Auto 11.7 % (2-11); Neutrophils Absolute Auto 2.7 X10*3/uL (2.0-8.3); Neutrophils Percent Auto 55.6 % (45-73); Platelet Count 207 X10*3/uL (160-400); Red Cell Distribution Width 12.7 % (11.0-16.0); White Blood Count 4.9 X10*3/uL (4.8-10.8)
--- NOTE | 2020-05-27 22:01 | PC.NURSE ---
iv inserted, labs drawn, ekg performed, monitor tech applied-nsr 80s, vss, covid swab performed, pt awaiting ct scan, will continue to monitor
[2020-05-27 22:27] LABS: Prothrombin Time 11.6 SEC (10.8-13.0)
[2020-05-27 22:28] LABS: Alanine Aminotransferase 11 U/L (0-31); Albumin Level 4.2 g/dL (3.5-5.0); Alkaline Phosphatase 34 U/L (39-117); Anion Gap 11 (12-20); Aspartate Amino Transferase 14 U/L (5-31); Bilirubin Direct < 0.2 mg/dL (0.0-0.5); Bilirubin Total 0.2 mg/dL (0.0-1.0); Blood Urea Nitrogen 11 mg/dL (9-16); Calcium 9.1 mg/dL (8.4-10.2); Carbon Dioxide 23 mmol/L (22-29); Chloride 108 mmol/L (96-108); Creatinine Clr Calc Pharmacy 83.1; Estimated Glomerular Filt Rate > 60; Glucose Random 84 mg/dL (60-115); Lipase 55 U/L (8-78); Potassium 4.3 mmol/L (3.3-5.1); Sodium 138 mmol/L (135-145); Total Protein 6.8 g/dL (6.5-8.0)
[2020-05-27 22:29] LABS: Partial Thromboplastin Time 36.2 SEC (24.1-38.0)
[2020-05-27 22:34] LABS: Troponin-I High Sensitivity < 3.5 ng/L (<3.5-17.0)
[2020-05-27 22:35] LABS: Influenza A PCR NEGATIVE (Negative); Influenza B PCR NEGATIVE (Negative); Resp Syncy Virus RNA Qual PCR NEGATIVE (Negative); SARS COV2 PCR INHOUSE POSITIVE (Negative)
[2020-05-27] MEDS: iohexoL 350 MG/ML 100 ML INFUS..BTL IV (22:46)
[2020-05-27] MEDS: Benzonatate 100 MG CAPSULE 200 MG PO (23:46)
[2020-05-27] MEDS: Azithromycin 500 MG TABLET PO (23:47)
[2020-05-27] MEDS: Albuterol Sulfate 90 MCG 8 GM INHALER 2 PUFF INHALE (23:47)
--- NOTE | 2020-05-27 23:49 | PC.NURSE ---
patient medicated per order
== END 2020-05-27 23:50 | disposition home or self-care (01) ==
PROVIDERS: Nurse Practitioner Family; Emergency Provider Emergency Medicine; PCP Internal Medicine
DX: U07.1 COVID-19 (principal); R07.89 Other chest pain; J45.909 Unspecified asthma, uncomplicated; Z79.899 Other long term (current) drug therapy; F17.200 Nicotine dependence, unspecified, uncomplicated
CPT/HCPCS: 0241U; 36415; 71275; 80048; 80076; 83690; 84484; 85025; 85610; 85730; 93005; 99284; Q9967

== ENCOUNTER 2020-06-10 07:49 | Emergency (ER) | payer MEDICAID, SELFPAY ==
--- NOTE | ~2020-06-10 | CT_ITS ---
EXAMINATION: CT HEAD WITHOUT CONTRAST CLINICAL INFORMATION: Headache. COMPARISON: 05/31/[address] scan[address] TECHNIQUE: Contiguous axial imaging was performed from the skull base to vertex without intravenous administration of contrast. Coronal and sagittal reformatted images were obtained. This CT examination was performed using dose optimization techniques as appropriate, variously including the following: *Automated exposure control *Adjustment of mA and/or kV according to patient size (this includes techniques or standardized protocols for targeted exams where dose is matched to indication/reason for exam; i.e. extremities or head) *Use of iterative reconstruction technique DLP: 640.08 mGy-cm FINDINGS: There is no evidence of acute intracranial hemorrhage or territorial infarction. No abnormal mass effect or midline shift is seen. Stark to white matter differentiation is well preserved. No extra-axial fluid collections are identified. The ventricles are normal in size. There is no abnormal attenuation within the brain parenchyma. The osseous structures and soft tissues are normal. The mastoid air cells and visualized portions of the paranasal sinuses are well aerated. CT/CT head/brain wo con IMPRESSION: No acute intracranial pathology.
[2020-06-10 08:05] VITALS: BP 118/76; PULSE 83; RESP 16; TEMP 36.3; O2SAT 98; BMI 22.3
--- NOTE | 2020-06-10 08:57 | ED.HA ---
HPI - Headache General Chief Complaint: Headache Stated Complaint: headache x 4 days Time Seen by Provider: 06/10/20 08:50 Source: patient Mode of arrival: ambulatory Limitations: no limitations History of Present Illness HPI Narrative: Female with below noted past medical history including history of arthritis, asthma, depression, fibromyalgia and migraine headaches for which she says she sees her primary care doctor and has not had any imaging of her head states she has been suffering from headaches for the past couple of years and will have occasional exacerbations states felt more frequent this time given that she had an episode last month the last 2 weeks and then this episode going on for last 4 days she called her primary care doctor she was given Imitrex and naproxen did not help much. Denies any fever chills. MD elicited complaint: migraine Onset (ago): day(s) Onset description: gradually Location: temporal and occipital Severity: moderate Quality & Timing: aching Exacerbating factors: none Relieving factors: nothing Associated symptoms: photophobia Treatments prior to arrival: other (Naproxen and Imitrex) Related Data Home Medications Medication Instructions Recorded Confirmed cyclobenzaprine 10 mg tablet 10 mg PO BEDTIME 02/20/20 05/13/20 loratadine 10 mg capsule 10 mg PO DAILY 02/20/20 05/13/20 paroxetine HCl 40 mg tablet 50 mg PO DAILY tab 02/20/20 05/13/20 tramadol 50 mg tablet 50 mg PO DAILY 02/20/20 05/13/20 mirtazapine 15 mg tablet 15 mg PO DAILY 05/13/20 05/13/20 Previous Rx's Medication Instructions Recorded metronidazole 500 mg tablet 500 mg PO BID 7 Days #14 tab 03/05/20 metronidazole 500 mg tablet 500 mg PO BID 7 Days #14 tab 04/24/20 azithromycin 250 mg PO DAILY 5 Days #5 tab 05/27/20 benzonatate [Tessalon Perles] 100 mg PO TID PRN #30 cap 05/27/20 Allergies Allergy/AdvReac Type Severity Reaction Status Date / Time dust Allergy Unknown unknown Uncoded 05/27/20 20:20 Review of Systems Review of Systems: Constitutional: No Weight loss, No Fever, No Chills, No Night Sweats, No Fatigue, No Malaise ENT/Mouth: No Hearing loss, No Ear Pain, No Nasal Congestion, No Sinus Pain, No Hoarseness, No sore throat, No Rhinorrhea, No Swallowing Difficulty Eyes: No Eye Pain, No Swelling, No Redness, No Foreign Body, No Discharge, No Vision Changes Cardiovascular: No Chest Pain, No SOB, No Dyspnea on Exertion, No Orthopnea, No Edema, No Palpitations Respiratory: No Cough, No Sputum, No Wheezing, No Dyspnea Gastrointestinal: No Nausea, No Vomiting, No Diarrhea, No Constipation, No abdominal Pain, No Hematochezia, No Melena Genitourinary: no irregular bleeding, No Dysuria, No Urinary Frequency, No Hematuria, No Urinary Incontinence, No Urgency, No Flank Pain, No Urinary Flow Changes, No Hesitancy Musculoskeletal: No joint pain, No Myalgias, No Joint Swelling Skin: No Skin Lesions, No rash Neuro: No Weakness, No Numbness, No Paresthesias, No Loss of Consciousness, No Dizziness, + Headache as noted per HPI Psych: No Social Issues Heme/Lymph: No Bruising, No Bleeding,No Lymphadenopathy Endocrine: No Polyuria, No Polydipsia, No Temperature Intolerance Yes all other systems are reviewed and are negative Neurologic: Reports Abnormal speech present [facility] Past Medical History Medical History Arthritis Asthma Depression Fibromyalgia Migraines Surgical History H/O LEEP History of bilateral tubal ligation History of carpal tunnel release History of salpingo-oophorectomy Family History Family History Sister History of breast cancer, Onset Age: 52 Brother History of bone cancer History of blood disorder History of brain cancer Paternal Aunt History of cancer of uterus Social History Social History Alcohol intake: never Smoking Status: Current every day smoker Use of substances other than those prescribed or required for medical reasons: No Advance Directives: Yes Advance Directives Information Provided: Yes Advance Directives on File: No Sexual orientation: Straight/Heterosexual Gender identity: female Physical Exam Vital Signs: Vital Signs: Last Vital Signs Temp 97.3 F 06/10/20 08:05 Pulse 83 06/10/20 10:37 Resp 16 06/10/20 10:37 BP 123/73 06/10/20 10:37 Pulse Ox 100 06/10/20 10:37 Body Mass Index 22.3 Reviewed Const: Other: On her cell phone General: cooperative and healthy appearing; No acute distress or intoxicated appearing Nutritional Appearance: average body habitus Orientation/consciousness: patient oriented x3 HENMT: Head: Yes normal to inspection Ears: hearing grossly normal bilaterally Eyes: General: appearance normal, both eyes and all related structures Visual Redd: normal visual redd by confrontation Pupils: Equal, round and reactive pupils present Neck: Neck: Yes normal visual inspection, Yes no meningeal signs, No positive Brudzinski's sign, No positive Kernig's sign and No tender Thyroid: Thyroid normal Chest: Chest palpation & inspection: normal inspection of the chest Resp: Effort & Inspection: normal respiratory effort Auscultation: clear to auscultation bilaterally Cardio: Jugular venous distension: no JVD Rhythm: regular rhythm Heart sounds: S1 normal heart sound present and S2 normal heart sound present GI: Inspection: Yes normal to inspection Percussion: Yes normal to percussion Auscultation: normal bowel sounds : General: Yes no CVA tenderness Back/Spine/Pelvis: Back: no CVA tenderness Skin: General skin exam: no rashes or lesions noted Neuro: General: patient oriented x3, gait normal, tone normal, moves all extremities, Normal light touch and pain sensation, no meningeal signs, no focal motor deficits, CN's II-XI intact bilaterally and normal sensation to monofilament Cranial nerves: Yes CN's II-XII intact bilaterally, Yes Facial sensation intact/muscles of mastication intact, Yes Intact sense of smell present, Yes Equal, round and reactive pupils present, Yes Normal accommodation reflex present, Yes Bilaterally intact EOM present, Yes Nystagmus not present, Yes Normal facial strength present, Yes Midline tongue present and Yes Normal gag reflex present Cognition (Neuro): normal cognition Speech: Abnormal speech present Gait exam (Neuro): Normal gait present Motor exam (neuro): 5/5 motor strength present throughout Sensory Exam: Normal double simultaneous stimulation for sensation Extrem: General: Yes normal to inspection NIH Stroke Scale Internal: Initial- Upon Arrival Level of Consciousness: Alert Level of Consciousness Questions: Answers both questions correctly Level of Consciousness Commands: Performs both tasks correctly Best Gaze: Normal Visual: No visual loss Facial Palsy: Normal Motor Arm (Right): No drift Motor Arm (Left): No drift Motor Leg (Right): No drift Motor Leg (Left): No drift Limb Ataxia: Absent Sensory: Normal Best Language: No aphasia Dysarthia: Normal Extinction and Inattention: No abnormality Score: 0 Course Course Course Narrative: Workup overall stable. Head CT negative. Was able to sleep after her migraine cocktail now tells me that her headache has 100% resolved. I will give her referral to Neurology for follow-up. She will also follow up with her primary care doctor. She is ambulatory status with gait. Stable for discharge. MDM - Headache MDM Narrative Medical decision making narrative: Will check labs head CT states has not had formal neuro evaluation being treated with migraine medications dome ice suspicion for acute intracranial process is low will need to rule out mass. Will treat with migraine cocktail. Differential Diagnosis Differential diagnosis: Likely migraine, tension headache and headache; Unlikely subarachnoid hemorrhage, meningitis, sinusitis and postconcussion syndrome Medical Records Attestation: I reviewed the patient's medical records. Medical records narrative: She was here May 26 2020 for COVID related complaint. Lab Data Attestation: I reviewed the patient's lab results. Result diagrams: 06/10/20 09:16 06/10/20 09:16 Labs: Lab Results 06/10/20 06/10/20 Range/Units 09:16 09:16 WBC 9.2 (4.8-10.8) X10*3/uL RBC 3.88 L (4.20-5.50) X10*6/uL Hgb 12.1 (12.0-16.0) g/dl Hct 36.4 L (37-47) % MCV 93.8 (80-98) fL MCH 31.2 (27.0-33.0) pg MCHC 33.2 (31.0-35.0) g/dl RDW 12.6 (11.0-16.0) % Plt Count 240 (160-400) X10*3/uL MPV 9.7 (9.4-12.3) fL Immature Gran % (Auto) 0.3 (0.0-0.4) % Neut % (Auto) 70.6 (45-73) % Lymph % (Auto) 23.0 (20-40) % [place] % (Auto) 5.1 (2-11) % Eos % (Auto) 0.8 (0-4) % Baso % (Auto) 0.2 (0-2) % Lymph # (Auto) 2.1 (1.2-4.9) X10*3/uL [place] # (Auto) 0.5 (0.1-1.2) X10*3/uL Eos # (Auto) 0.1 (0.0-0.4) X10*3/uL Baso # (Auto) 0.0 (0.0-0.2) X10*3/uL Abs Immat Gran (auto) 0.03 (0.00-0.03) X10*3/uL Absolute Neuts (auto) 6.5 (2.0-8.3) X10*3/uL Absolute Nucleated RBC 0.000 (0.0-0.012) X10*3/uL Nucleated RBC % (auto) 0.0 (0.0-0.2) /100WBC Sodium 140 (135-145) mmol/L Potassium 4.1 (3.3-5.1) mmol/L Chloride 107 (96-108) mmol/L Carbon Dioxide 27 (22-29) mmol/L Anion Gap 10 L (12-20) BUN 10 (9-16) mg/dL Creatinine 0.70 (0.5-1.4) mg/dL Estim Creat Clear Calc 86.7 Estimated GFR > 60 Random Glucose 85 (60-115) mg/dL Calcium 8.9 (8.4-10.2) mg/dL Total Bilirubin 0.4 (0.0-1.0) mg/dL AST 14 (5-31) U/L ALT 10 (0-31) U/L Alkaline Phosphatase 37 L (39-117) U/L Total Protein 6.7 (6.5-8.0) g/dL Albumin 4.2 (3.5-5.0) g/dL Discharge Plan Discharge Clinical Impression: Migraine Patient Disposition: Home, Self-Care Instructions: Migraine Headache (ED) Additional Instructions: Your CT scan of the head did not show any acute findings Well-balanced diet Plenty of sleep Push fluids Keep a headache diary Avoiding triggers Follow up with her primary care doctor Follow-up with neurology call for appointment Thank you Prescriptions: No Action metronidazole 500 mg tablet 500 mg PO BID 7 Days Qty: 14 RF: 0 azithromycin 250 mg tablet 250 mg PO DAILY 5 Days Qty: 5 RF: 0 benzonatate [Tessalon Perles] 100 mg capsule 100 mg PO TID PRN (Reason: cough) Qty: 30 RF: 0 metronidazole [Flagyl] 500 mg tablet 500 mg PO BID 7 Days Qty: 14 RF: 0 loratadine 10 mg capsule 10 mg PO DAILY RF: 0 paroxetine HCl [Paxil] 40 mg tablet 50 mg PO DAILY RF: 0 tramadol 50 mg tablet 50 mg PO DAILY RF: 0 cyclobenzaprine 10 mg tablet 10 mg PO BEDTIME RF: 0 mirtazapine [Remeron] 15 mg tablet 15 mg PO DAILY RF: 0 Referrals: Dory Ray MD [Primary Care Provider] - 1 week Conchis Cesar MD [Physician] - 2 weeks Interventions: ED Discharge Assessment Last Done: 06/10/20 11:28 Discharge Date/Time: 06/10/20 11:28
[2020-06-10] MEDS: Acetaminophen 325 MG TABLET 975 MG PO (09:17)
[2020-06-10] MEDS: 0.9 % Sodium Chloride 1,000 ML 999 ML IV (09:17)
[2020-06-10] MEDS: diphenhydrAMINE HCL 50 MG/ML VIAL IVPUSH (09:19)
[2020-06-10] MEDS: ondansetron HCL 4 MG/2 ML VIAL IVPUSH (09:19)
[2020-06-10 09:31] LABS: MANUAL DIFF FLAG NO
[2020-06-10 09:32] LABS: Basophils Percent Auto 0.2 % (0-2); Eosinophils Absolute Auto 0.1 X10*3/uL (0.0-0.4); Eosinophils Percent Auto 0.8 % (0-4); Hematocrit 36.4 % (37-47); Hemoglobin 12.1 g/dl (12.0-16.0); Imm Gran Abs Auto 0.03 X10*3/uL (0.00-0.03); Imm Gran Pct Auto 0.3 % (0.0-0.4); Lymphocytes Absolute Auto 2.1 X10*3/uL (1.2-4.9); Mean Corpuscular HGB Conc 33.2 g/dl (31.0-35.0); Mean Corpuscular Hemoglobin 31.2 pg (27.0-33.0); Mean Corpuscular Volume 93.8 fL (80-98); Mean Platelet Volume 9.7 fL (9.4-12.3); Monocytes Absolute Auto 0.5 X10*3/uL (0.1-1.2); Monocytes Percent Auto 5.1 % (2-11); Neutrophils Absolute Auto 6.5 X10*3/uL (2.0-8.3); Neutrophils Percent Auto 70.6 % (45-73); Platelet Count 240 X10*3/uL (160-400); Red Blood Count 3.88 X10*6/uL (4.20-5.50); Red Cell Distribution Width 12.6 % (11.0-16.0); White Blood Count 9.2 X10*3/uL (4.8-10.8)
--- NOTE | 2020-06-10 09:43 | PC.NURSE ---
To and from CT scan, ambulatory, steady gait.
[2020-06-10 10:02] LABS: Alanine Aminotransferase 10 U/L (0-31); Albumin Level 4.2 g/dL (3.5-5.0); Alkaline Phosphatase 37 U/L (39-117); Anion Gap 10 (12-20); Aspartate Amino Transferase 14 U/L (5-31); Bilirubin Total 0.4 mg/dL (0.0-1.0); Blood Urea Nitrogen 10 mg/dL (9-16); Calcium 8.9 mg/dL (8.4-10.2); Carbon Dioxide 27 mmol/L (22-29); Chloride 107 mmol/L (96-108); Creatinine Clr Calc Pharmacy 86.7; Estimated Glomerular Filt Rate > 60; Glucose Random 85 mg/dL (60-115); Potassium 4.1 mmol/L (3.3-5.1); Sodium 140 mmol/L (135-145); Total Protein 6.7 g/dL (6.5-8.0)
[2020-06-10 10:37] VITALS: BP 123/73; PULSE 83; RESP 16; O2SAT 100
--- NOTE | 2020-06-10 10:37 | PC.NURSE ---
Headache has subsided s/p med interventions
== END 2020-06-10 11:28 | disposition home or self-care (01) ==
PROVIDERS: Nurse Practitioner Primary Care; Emergency Provider Emergency Medicine Emergency Medical Services; PCP Internal Medicine
DX: G43.909 Migraine, unspecified, not intractable, without status migrainosus (principal); Z79.899 Other long term (current) drug therapy; F17.200 Nicotine dependence, unspecified, uncomplicated; Z71.6 Tobacco abuse counseling
CPT/HCPCS: 36415; 70450; 80053; 85025; 96365; 96375; 99284; J1200; J2405

== ENCOUNTER 2020-09-03 11:06 | Outpatient (REF) | payer MEDICAID, SELFPAY ==
--- NOTE | ~2020-09-03 | US_ITS ---
EXAMINATION: PELVIC ULTRASOUND CLINICAL INFORMATION: Ovarian cyst with pelvic pain and menorrhagia. COMPARISON: Pelvic ultrasound 04/29/2020 CT abdomen/pelvis 03/07/2020 TECHNIQUE: Both transabdominal and endovaginal scanning was performed. FINDINGS: An anteverted uterus is present measuring 7.4 x 3.7 x 5.0 cm. Endometrium appears unremarkable at 0.8 cm. No uterine masses are seen. Previously detected fibroid seen at the time of the prior ultrasound is not seen with certainty on the current study. The cervix measures about 3.3 cm in length and contains nabothian cysts and some calcification. The right ovary has been removed and is not visualized. Left ovary measures 2.5 x 1.1 x 2.0 cm for a volume of 2.9 mL and appears unremarkable. A small follicular cyst is present. No free fluid is present in the cul-de-sac. US/US transvaginal IMPRESSION: A worrisome finding is not present. The previously seen small uterine fibroid is not identified on the current study. An abnormal adnexal mass is not seen.
--- NOTE | ~2020-09-03 | US_ITS ---
EXAMINATION: PELVIC ULTRASOUND CLINICAL INFORMATION: Ovarian cyst with pelvic pain and menorrhagia. COMPARISON: Pelvic ultrasound 04/29/2020 CT abdomen/pelvis 03/07/2020 TECHNIQUE: Both transabdominal and endovaginal scanning was performed. FINDINGS: An anteverted uterus is present measuring 7.4 x 3.7 x 5.0 cm. Endometrium appears unremarkable at 0.8 cm. No uterine masses are seen. Previously detected fibroid seen at the time of the prior ultrasound is not seen with certainty on the current study. The cervix measures about 3.3 cm in length and contains nabothian cysts and some calcification. The right ovary has been removed and is not visualized. Left ovary measures 2.5 x 1.1 x 2.0 cm for a volume of 2.9 mL and appears unremarkable. A small follicular cyst is present. No free fluid is present in the cul-de-sac. US/US pelvic complete IMPRESSION: A worrisome finding is not present. The previously seen small uterine fibroid is not identified on the current study. An abnormal adnexal mass is not seen.
== END 2020-09-03 11:07 | disposition home or self-care (01) ==
LOC: HO.US 11:06
PROVIDERS: Visit Provider Obstetrics & Gynecology
DX: N83.299 Other ovarian cyst, unspecified side (principal)
CPT/HCPCS: 76830; 76856

== ENCOUNTER → 2020-09-17 11:10 | Outpatient (BNVA) | payer MEDICAID, SELFPAY | PROVIDERS: Visit Provider Obstetrics & Gynecology ==

== ENCOUNTER 2020-10-26 07:37 | Emergency (ER) | payer MEDICAID, SELFPAY ==
--- NOTE | ~2020-10-26 | XR_ITS ---
EXAMINATION: XR LUMBOSACRAL SPINE CLINICAL INFORMATION: Right-sided sciatica COMPARISON: CT abdomen of March 07, 2020 TECHNIQUE: Three views of the lumbosacral spine. FINDINGS: There is sacralization of the left side of L5. No acute fracture, spondylolisthesis, or spondylolysis is appreciated. Pedicles intact. There is some narrowing of the L5-S1 disc space. No significant abnormality of the sacroiliac joints is seen other than some sclerosis about the sacralization of the left side of L5. XR/XR lumbar spine 2-3V IMPRESSION: Sacralization left side of L5. Otherwise essentially unremarkable lumbosacral spine study.
[2020-10-26 07:41] VITALS: BP 104/46; PULSE 84; RESP 16; TEMP 36.2; O2SAT 98; BMI 22.3
--- NOTE | 2020-10-26 08:11 | ED.BACK ---
HPI - Back Pain/Injury General Chief Complaint: Back Pain/Injury Stated Complaint: BACK PAIN Time Seen by Provider: 10/26/20 08:11 Source: patient Mode of arrival: ambulatory Limitations: no limitations History of Present Illness HPI Narrative: patient with right flank pain worse with walking and bending. Patient does not have back problems. No dysuria no hematuria MD elicited complaint: back pain Pertinent past history: prior back pain Onset (ago): day(s) (4) Timing: intermittent Severity: moderate Quality: burning Location: lumbar spine Radiation: right upper leg Exacerbating factors: movement Relieving factors: none Context: while lifting, turning/twisting and bending Related Data Home Medications Medication Instructions Recorded Confirmed cyclobenzaprine 10 mg tablet 10 mg PO BEDTIME 02/20/20 05/13/20 loratadine 10 mg capsule 10 mg PO DAILY 02/20/20 05/13/20 paroxetine HCl 40 mg tablet 50 mg PO DAILY tab 02/20/20 05/13/20 tramadol 50 mg tablet 50 mg PO DAILY 02/20/20 05/13/20 mirtazapine 15 mg tablet 15 mg PO DAILY 05/13/20 05/13/20 Previous Rx's Medication Instructions Recorded metronidazole 500 mg tablet 500 mg PO BID 7 Days #14 tab 03/05/20 metronidazole 500 mg tablet 500 mg PO BID 7 Days #14 tab 04/24/20 azithromycin 250 mg PO DAILY 5 Days #5 tab 05/27/20 benzonatate [Tessalon Perles] 100 mg PO TID PRN #30 cap 05/27/20 cyclobenzaprine 10 mg PO TID #10 tab 10/26/20 naproxen [Naprosyn] 500 mg PO BID #20 tab 10/26/20 Allergies Allergy/AdvReac Type Severity Reaction Status Date / Time dust Allergy Unknown unknown Uncoded 05/27/20 20:20 Review of Systems Constitutional: Constitutional: Reports no additional constitutional complaints Eyes: Eyes: Reports no additional eye complaints ENT: Denies dizziness Cardiovascular: Cardiovascular: Reports no additional cardiovascular complaints Respiratory: Respiratory: Reports as per HPI Gastrointestinal: Gastrointestinal: Reports no additional gastrointestinal complaints Genitourinary: Genitourinary: Reports no additional female genitourinary complaints Musculoskeletal: Musculoskeletal: Reports no additional musculoskeletal complaints Integumentary/Breasts: Skin/Breast: Denies rash Neurologic: Reports system reviewed and no additional complaints, except as documented, Denies dizziness and Denies Sensory deficit (Neuro) Psychiatric: Psychiatric: Denies anxiety [facility] Past Medical History Medical History Arthritis Asthma Depression Fibromyalgia Migraines Surgical History H/O LEEP History of bilateral tubal ligation History of carpal tunnel release History of salpingo-oophorectomy Family History Family History Sister History of breast cancer, Onset Age: 52 Brother History of bone cancer History of blood disorder History of brain cancer Paternal Aunt History of cancer of uterus Social History Social History Alcohol intake: never Advance Directives: Yes Advance Directives Information Provided: Yes Advance Directives on File: No Patient : No Sexual orientation: Straight/Heterosexual Gender identity: female Physical Exam Vital Signs: Vital Signs: Last Vital Signs Temp 97.9 F 10/26/20 08:48 Pulse 68 10/26/20 08:48 Resp 16 10/26/20 08:48 BP 140/87 H 10/26/20 08:48 Pulse Ox 99 10/26/20 08:48 Body Mass Index 22.3 Const: General: healthy appearing Nutritional Appearance: average body habitus Orientation/consciousness: oriented to person and patient oriented x3 Limitations: no limitations HENMT: Head: Yes normal to inspection Ears: external ears normal General nose exam: Normal external nose present Mouth: Normal oral and palatal mucosa present and oropharynx normal Throat: Yes posterior oropharynx normal Eyes: General: appearance normal, both eyes and all related structures Neck: Other: supple Neck: Yes normal visual inspection Chest: Chest palpation & inspection: normal inspection of the chest Resp: Auscultation: clear to auscultation bilaterally Cardio: Jugular venous distension: no JVD Rate: regular rate Rhythm: regular rhythm Heart sounds: S1 normal heart sound present and S2 normal heart sound present GI: Inspection: Yes normal to inspection Palpation (GI): Soft to palpation, nontender and No hepatosplenomegaly present Auscultation: normal bowel sounds : General: Yes no CVA tenderness Back/Spine/Pelvis: Other: right SI joint tenderness and right sciatica tenderness Back: no CVA tenderness Skin: General skin exam: no rashes or lesions noted Neuro: General: oriented to person and patient oriented x3 Cranial nerves: Yes CN's II-XII intact bilaterally Motor exam (neuro): 5/5 motor strength present throughout Sensory Exam: No Sensory deficit (Neuro) Extrem: General: Yes normal to inspection Psych: Appearance: grossly normal Course Reevaluation(s) Reevaluation #1: UA and xray are negative, will give naprosyn and flexeril for pain to treat lumbar radiculopathy Time: 09:45 MDM - Back Pain/Injury Lab Data Labs: Lab Results 10/26/20 Range/Units 08:52 Urine Color YELLOW Urine Appearance HAZY Urine pH 6.0 (5.0-8.0) Ur Specific [place] <= 1.005 (1.005-1.025) Urine Protein NEG (NEG-TRACE) MG/DL Urine Glucose (UA) NEG (NEG) MG/DL Urine Ketones NEG (NEG) MG/DL Urine Blood 1+ H (NEG) Urine Nitrite NEG (NEG) Ur Leukocyte Esterase NEG (NEG) Urine RBC 0-2 (0) /HPF Urine WBC 0 (0-4) /HPF Ur Squamous Epith Cells 2+ /LPF Urine Bacteria 1+ /LPF Imaging Data lumbar sacral spine: Radiologist's impression: IMPRESSION: Sacralization left side of L5. Otherwise essentially unremarkable lumbosacral spine study. Discharge Plan Discharge Clinical Impression: Lumbar radiculopathy Patient Disposition: Home, Self-Care Instructions: Lumbar Radiculopathy (ED) Prescriptions: New cyclobenzaprine 10 mg tablet 10 mg PO TID Qty: 10 RF: 0 naproxen [Naprosyn] 500 mg tablet 500 mg PO BID Qty: 20 RF: 0 No Action metronidazole 500 mg tablet 500 mg PO BID 7 Days Qty: 14 RF: 0 azithromycin 250 mg tablet 250 mg PO DAILY 5 Days Qty: 5 RF: 0 benzonatate [Tessalon Perles] 100 mg capsule 100 mg PO TID PRN (Reason: cough) Qty: 30 RF: 0 metronidazole [Flagyl] 500 mg tablet 500 mg PO BID 7 Days Qty: 14 RF: 0 loratadine 10 mg capsule 10 mg PO DAILY RF: 0 paroxetine HCl [Paxil] 40 mg tablet 50 mg PO DAILY RF: 0 tramadol 50 mg tablet 50 mg PO DAILY RF: 0 cyclobenzaprine 10 mg tablet 10 mg PO BEDTIME RF: 0 mirtazapine [Remeron] 15 mg tablet 15 mg PO DAILY RF: 0 Referrals: Dory Ray MD [Primary Care Provider] - 1 week
[2020-10-26] MEDS: Ketorolac Tromethamine 60 MG/2 ML VIAL IM (08:39)
[2020-10-26] MEDS: Cyclobenzaprine HCl 10 MG TABLET PO (08:39)
[2020-10-26 08:48] VITALS: BP 140/87; PULSE 68; RESP 16; TEMP 36.6; O2SAT 99
[2020-10-26 08:57] LABS: Glucose Urine UA NEG (NEG); Leukocyte Esterase Urine NEG (NEG); Nitrite Urine NEG (NEG); Specific Gravity - Urine <= 1.005 (1.005-1.025); Urine Blood 1+ (NEG); Urine Ketones NEG (NEG); Urine Protein NEG (NEG-TRACE)
[2020-10-26 08:59] LABS: Appearance Urine HAZY; Color Urine YELLOW
[2020-10-26 09:04] LABS: RBC Urine 0-2 /HPF (0); WBC Urine 0 /HPF (0-4)
[2020-10-26 09:05] LABS: Bacteria Urine 1+ /LPF; Squamous Epithelial Cell Urine 2+ /LPF
== END 2020-10-26 10:12 | disposition home or self-care (01) ==
PROVIDERS: Emergency Provider Emergency Medicine; PCP Internal Medicine
DX: M54.16 Radiculopathy, lumbar region (principal)
CPT/HCPCS: 72100; 81001; 96372; 99284; J1885

== ENCOUNTER 2020-11-14 14:19 | Emergency (ER) | payer MEDICAID, SELFPAY ==
--- NOTE | ~2020-11-14 | XR_ITS ---
EXAMINATION: XR CHEST CLINICAL INFORMATION: Cough COMPARISON: January 14, 2020 TECHNIQUE: AP portable view of the chest was obtained. FINDINGS: No significant abnormality is noted involving the heart, lungs, mediastinum, bony thorax or soft tissues. XR/XR chest 1V IMPRESSION: No acute disease.
[2020-11-14 14:30] VITALS: BP 129/79; PULSE 81; RESP 18; TEMP 36.8; O2SAT 99; BMI 22.3
[2020-11-14 14:59] LABS: COVID-19 Test Negative (Negative)
--- NOTE | 2020-11-14 15:12 | ECG_ITS ---
Test Reason : SHORTNESSOF BREATH Blood Pressure : / mmHG Vent. Rate : 080 BPM Atrial Rate : 080 BPM P-R Int : 136 ms QRS Dur : 084 ms QT Int : 374 ms P-R-T Axes : 062 049 052 degrees QTc Int : 431 ms Normal sinus rhythm Normal ECG When compared with ECG of 27-MAY-2020 21:38, No significant change was found Referred By: Yareli Mallory Electronically Signed By:NIRMAL ÁLVAREZ
--- NOTE | 2020-11-14 15:14 | ED.URI ---
HPI - URI/Sore Throat General Chief Complaint: Upper Respiratory Symptoms Stated Complaint: headache cough Time Seen by Provider: 11/14/20 14:58 Source: patient Mode of arrival: ambulatory Limitations: no limitations History of Present Illness HPI Narrative: 45-year-old female presents with dry cough, gradual onset headache, congestion, runny nose, itchy sore throat, nausea, mild dizziness that started last night. Patient has a history of asthma. She is vaccinated for COVID, but spent time with her granddaughter who had similar symptoms recently. Patient is not short of breath, has no chest pain, but complains of chest tightness. Her headache was gradual onset with no visual changes, no fever, no stiff neck. Patient does not have an albuterol inhaler at home, although she has used albuterol and prednisone for viral infections in the past due to her asthma. MD elicited complaint: cough, sore throat, rhinorrhea and nasal congestion Pertinent past history: asthma Onset (ago): day(s) (1) Consistency: constant Severity: moderate Able to tolerate fluids by mouth: Yes Exacerbating factors: nothing Relieving factors: OTC cold medicine Context: sick contacts Associated symptoms: headache, rhinorrhea, nasal congestion, sore throat, cough and nausea Treatments prior to arrival: acetaminophen Related Data Home Medications Medication Instructions Recorded Confirmed cyclobenzaprine 10 mg tablet 10 mg PO BEDTIME 02/20/20 05/13/20 loratadine 10 mg capsule 10 mg PO DAILY 02/20/20 05/13/20 paroxetine HCl 40 mg tablet (Paxil) 50 mg PO DAILY tab 02/20/20 05/13/20 tramadol 50 mg tablet 50 mg PO DAILY 02/20/20 05/13/20 mirtazapine 15 mg tablet (Remeron) 15 mg PO DAILY 05/13/20 05/13/20 Previous Rx's Medication Instructions Recorded metronidazole 500 mg tablet 500 mg PO BID 7 Days #14 tab 03/05/20 (Flagyl) metronidazole 500 mg tablet 500 mg PO BID 7 Days #14 tab 04/24/20 azithromycin 250 mg tablet 250 mg PO DAILY 5 Days #5 tab 05/27/20 benzonatate 100 mg capsule 100 mg PO TID PRN #30 cap 05/27/20 (Vickey Cartwright) cyclobenzaprine 10 mg tablet 10 mg PO TID #10 tab 10/26/20 naproxen 500 mg tablet (Naprosyn) 500 mg PO BID #20 tab 10/26/20 albuterol sulfate 90 mcg/actuation 2 puff INHALATION Q6H PRN #8.5 g 11/14/20 aerosol inhaler prednisone 20 mg tablet 60 mg PO DAILY 5 Days #15 tab 11/14/20 Allergies Allergy/AdvReac Type Severity Reaction Status Date / Time dust Allergy Unknown unknown Uncoded 05/27/20 20:20 Review of Systems Constitutional: Constitutional: Denies body ache(s), Denies chills, Denies fatigue, Denies fever(s), Reports headache(s), Denies malaise and Denies weakness Eyes: Eyes: Denies blurry vision, Denies diplopia and Denies itchy eyes ENT: Denies vertigo, Reports dizziness, Denies otalgia, Reports headache(s), Denies mouth pain, Reports nasal congestion, Reports nasal discharge, Denies post nasal drip, Denies sinus pain, Denies sinus pressure, Reports sore throat and Denies throat swelling Cardiovascular: Cardiovascular: Denies chest pain, Denies syncope, Denies leg edema, Denies lightheadedness, Denies Loss of Consciousness, Denies palpitations and Denies dyspnea Respiratory: Respiratory: Denies chest congestion, Reports cough, Denies hemoptysis, Denies pain on inspiration, Reports pain with cough and Denies dyspnea Gastrointestinal: Gastrointestinal: Denies abdominal pain, Denies hematochezia, Denies constipation, Denies diarrhea and Denies vomiting Musculoskeletal: Musculoskeletal: Reports no additional musculoskeletal complaints and Denies myalgias Integumentary/Breasts: Skin/Breast: Denies erythema and Denies rash Neurologic: Denies confusion, Denies vertigo, Reports dizziness, Denies syncope, Reports headache(s) and Denies weakness Psychiatric: Psychiatric: Denies anxiety, Denies confusion and Denies depression Endocrine: Endocrine: Denies fatigue and Denies palpitations Allergic/Immunologic: Allergic/Immunologic: Denies itchy eyes and Denies throat swelling PMFSH Past Medical History Medical History Arthritis Asthma Depression Fibromyalgia Migraines Surgical History H/O LEEP History of bilateral tubal ligation History of carpal tunnel release History of salpingo-oophorectomy Family History Family History Sister History of breast cancer, Onset Age: 52 Brother History of bone cancer History of blood disorder History of brain cancer Paternal Aunt History of cancer of uterus Social History Social History Alcohol intake: never Advance Directives: No Advance Directives Information Provided: No Sexual orientation: Straight/Heterosexual Gender identity: female Physical Exam Vital Signs: Vital Signs: Last Vital Signs Temp 98.3 F 11/14/20 16:00 Pulse 75 11/14/20 16:00 Resp 18 11/14/20 16:00 BP 121/69 11/14/20 16:00 Pulse Ox 99 11/14/20 16:00 Body Mass Index 22.3 Const: General: no acute distress and alert; No confusion Nutritional Appearance: well nourished Orientation/consciousness: patient oriented x3 and No confusion Limitations: no limitations HENMT: Head: Yes normal to inspection, Yes normocephalic and Yes atraumatic Ears: hearing grossly normal bilaterally, external ears normal, TM's normal bilaterally and EAC's normal General nose exam: Normal external nose present Face and sinus: Yes normal facial exam and Yes sinuses nontender Mouth: Normal oral and palatal mucosa present Throat: Yes uvula midline and Yes posterior oropharynx abnormal (erythematous) Eyes: Conjunctivae: conjunctivae normal Pupils: Equal, round and reactive pupils present EOM: EOMs intact bilaterally Neck: Neck: Yes full ROM, Yes no lymphadenopathy, Yes no meningeal signs and Yes supple Resp: Other: Diminished breath sounds, wheezes throughout Effort & Inspection: able to speak in complete sentences and Actively coughing Quality: dry Auscultation: no crackles, no rales, no rhonchi and wheezes Cardio: Rate: regular rate Rhythm: regular rhythm Heart sounds: S1 normal heart sound present and S2 normal heart sound present GI: Inspection: Yes normal to inspection Palpation (GI): Soft to palpation, nontender, no guarding and not rigid Percussion: Yes normal to percussion Auscultation: normal bowel sounds Skin: General skin exam: no rashes or lesions noted Neuro: General: patient oriented x3, gait normal, tone normal, moves all extremities, no meningeal signs, no focal motor deficits, CN's II-XI intact bilaterally and No confusion Cranial nerves: Yes Equal, round and reactive pupils present Extrem: General: Yes normal to inspection and Yes full ROM Psych: Appearance: grossly normal Affect: normal affect Attitude: cooperative Thought process: Normal thought process present Course Course Course Narrative: 45-year-old female presents with upper respiratory symptoms including headache, runny nose, sore throat, and dry cough. Patient has a history of asthma but has run out of her albuterol inhaler. Patient had contact with sick granddaughter last week. On exam, patient has stable vitals, satting 99% on room air with a normal heart rate. Patient complains of chest tightness, and her lungs are diminished with diffuse wheezing, will get chest x-ray, EKG, CBC, CMP, will give prednisone, albuterol, and Tylenol. Patient's COVID is negative. CBC and CMP are remarkable only for white blood cell count of 11.2 with a left shift. CXR is negtive. This appears to be a upper respiratory infection with asthmatic component. Will send patient home on prednisone, albuterol, encouraged Tylenol, fluids, rest. MDM - URI/Sore Throat Lab Data Result diagrams: 11/14/20 16:16 11/14/20 16:16 Labs: Lab Results 11/14/20 11/14/20 11/14/20 Range/Units 14:34 16:16 16:16 WBC 11.2 H (4.8-10.8) X10*3/uL RBC 3.97 L (4.20-5.50) X10*6/uL Hgb 12.6 (12.0-16.0) g/dl Hct 37.8 (37-47) % MCV 95.2 (80-98) fL MCH 31.7 (27.0-33.0) pg MCHC 33.3 (31.0-35.0) g/dl RDW 13.4 (11.0-16.0) % Plt Count 227 (160-400) X10*3/uL MPV 9.4 (9.4-12.3) fL Immature Gran % (Auto) 0.3 (0.0-0.4) % Neut % (Auto) 88.3 H (45-73) % Lymph % (Auto) 9.9 L (20-40) % [place] % (Auto) 1.2 L (2-11) % Eos % (Auto) 0.1 (0-4) % Baso % (Auto) 0.2 (0-2) % Lymph # (Auto) 1.1 L (1.2-4.9) X10*3/uL [place] # (Auto) 0.1 (0.1-1.2) X10*3/uL Eos # (Auto) 0.0 (0.0-0.4) X10*3/uL Baso # (Auto) 0.0 (0.0-0.2) X10*3/uL Abs Immat Gran (auto) 0.03 (0.00-0.03) X10*3/uL Absolute Neuts (auto) 9.9 H (2.0-8.3) X10*3/uL Absolute Nucleated RBC 0.000 (0.0-0.012) X10*3/uL Nucleated RBC % (auto) 0.0 (0.0-0.2) /100WBC Sodium 138 (135-145) mmol/L Potassium 3.8 (3.3-5.1) mmol/L Chloride 106 (96-108) mmol/L Carbon Dioxide 24 (22-29) mmol/L Anion Gap 12 (12-20) BUN 10 (9-16) mg/dL Creatinine 0.74 (0.5-1.4) mg/dL Estim Creat Clear Calc 81.1 Estimated GFR > 60 Random Glucose 122 H D (60-115) mg/dL Calcium 9.2 (8.4-10.2) mg/dL Total Bilirubin 0.6 (0.0-1.0) mg/dL AST 14 (5-31) U/L ALT 14 (0-31) U/L Alkaline Phosphatase 38 L (39-117) U/L Total Protein 7.0 (6.5-8.0) g/dL Albumin 4.3 (3.5-5.0) g/dL COVID-19 ([facility]) Negative (Negative) COVID-19 Clin Com See Note ECG Data Interpretation: With EQ to normal sinus with a rate of 80, normal axis, no T-wave changes, no ST elevations or depression. The AL interval 136, QRS 84, QTC 431. Discharge Plan Discharge Clinical Impression: Upper respiratory infection, viral Patient Disposition: Home, Self-Care Additional Instructions: Please fill your prescription for prednisone: Take the next 5 days. Please use your albuterol inhaler, 2 puffs every 4 hours for the next 2-3 days. Please take Tylenol, and push fluids. Please rest. Return to emergency room if you have fevers, shortness of breath, chest pain, or any other new or concerning Prescriptions: New prednisone 20 mg tablet 60 mg PO DAILY 5 Days Qty: 15 RF: 0 albuterol sulfate 90 mcg/actuation HFA aerosol inhaler 2 puff inhalation Q6H PRN (Reason: shortness of breath or wheezing) Qty: 8.5 RF: 0 No Action metronidazole 500 mg tablet 500 mg PO BID 7 Days Qty: 14 RF: 0 cyclobenzaprine 10 mg tablet 10 mg PO TID Qty: 10 RF: 0 naproxen [Naprosyn] 500 mg tablet 500 mg PO BID Qty: 20 RF: 0 azithromycin 250 mg tablet 250 mg PO DAILY 5 Days Qty: 5 RF: 0 benzonatate [Tessalon Perles] 100 mg capsule 100 mg PO TID PRN (Reason: cough) Qty: 30 RF: 0 metronidazole [Flagyl] 500 mg tablet 500 mg PO BID 7 Days Qty: 14 RF: 0 loratadine 10 mg capsule 10 mg PO DAILY RF: 0 paroxetine HCl [Paxil] 40 mg tablet 50 mg PO DAILY RF: 0 tramadol 50 mg tablet 50 mg PO DAILY RF: 0 cyclobenzaprine 10 mg tablet 10 mg PO BEDTIME RF: 0 mirtazapine [Remeron] 15 mg tablet 15 mg PO DAILY RF: 0
[2020-11-14] MEDS: Albuterol Sulfate 90 MCG 8 GM INHALER 2 PUFF INHALE (15:44)
[2020-11-14] MEDS: Acetaminophen 325 MG TABLET 950 MG PO (15:53)
[2020-11-14] MEDS: predniSONE 20 MG TABLET 60 MG PO (15:54)
[2020-11-14 16:00] VITALS: BP 121/69; PULSE 75; RESP 18; TEMP 36.8; O2SAT 99
[2020-11-14 16:24] LABS: Basophils Percent Auto 0.2 % (0-2); Eosinophils Percent Auto 0.1 % (0-4); Hematocrit 37.8 % (37-47); Hemoglobin 12.6 g/dl (12.0-16.0); Imm Gran Abs Auto 0.03 X10*3/uL (0.00-0.03); Imm Gran Pct Auto 0.3 % (0.0-0.4); Lymphocytes Absolute Auto 1.1 X10*3/uL (1.2-4.9); Lymphocytes Percent Auto 9.9 % (20-40); MANUAL DIFF FLAG NO; Mean Corpuscular HGB Conc 33.3 g/dl (31.0-35.0); Mean Corpuscular Hemoglobin 31.7 pg (27.0-33.0); Mean Corpuscular Volume 95.2 fL (80-98); Mean Platelet Volume 9.4 fL (9.4-12.3); Monocytes Absolute Auto 0.1 X10*3/uL (0.1-1.2); Monocytes Percent Auto 1.2 % (2-11); Neutrophils Absolute Auto 9.9 X10*3/uL (2.0-8.3); Neutrophils Percent Auto 88.3 % (45-73); Platelet Count 227 X10*3/uL (160-400); Red Blood Count 3.97 X10*6/uL (4.20-5.50); Red Cell Distribution Width 13.4 % (11.0-16.0); White Blood Count 11.2 X10*3/uL (4.8-10.8)
[2020-11-14 16:47] LABS: Alanine Aminotransferase 14 U/L (0-31); Albumin Level 4.3 g/dL (3.5-5.0); Alkaline Phosphatase 38 U/L (39-117); Anion Gap 12 (12-20); Aspartate Amino Transferase 14 U/L (5-31); Bilirubin Total 0.6 mg/dL (0.0-1.0); Blood Urea Nitrogen 10 mg/dL (9-16); Calcium 9.2 mg/dL (8.4-10.2); Carbon Dioxide 24 mmol/L (22-29); Chloride 106 mmol/L (96-108); Creatinine Clr Calc Pharmacy 81.1; Estimated Glomerular Filt Rate > 60; Glucose Random 122 mg/dL (60-115); Potassium 3.8 mmol/L (3.3-5.1); Sodium 138 mmol/L (135-145)
--- NOTE | 2020-11-14 16:53 | PC.NURSE ---
PT AWAITING FOR PENDING RESULTS. WILL CONTINUE TO MONITOR PT.
== END 2020-11-14 17:06 | disposition home or self-care (01) ==
PROVIDERS: Physician Assistant; Emergency Provider Emergency Medicine; PCP Internal Medicine
DX: J06.9 Acute upper respiratory infection, unspecified (principal); R51.9 Headache, unspecified; R05 Cough; Z79.899 Other long term (current) drug therapy; Z20.822 Contact with and (suspected) exposure to COVID-19
CPT/HCPCS: 36415; 71045; 80053; 85025; 87635; 93005; 94640; 99284

== ENCOUNTER 2020-12-08 09:00 | Emergency (ER) | payer MEDICAID, SELFPAY ==
[2020-12-08 09:13] VITALS: BP 136/74; PULSE 72; RESP 14; TEMP 35.9; O2SAT 99; BMI 22.6
--- NOTE | 2020-12-08 09:51 | ED_ITS ---
HPI - Back Pain/Injury General Chief Complaint: Back Pain/Injury Stated Complaint: FALL BACK PAIN Time Seen by Provider: 12/08/20 09:43 Source: patient Mode of arrival: ambulatory History of Present Illness HPI Narrative: 45-year-old female with a past medical history of arthritis, asthma, depression, fibromyalgia, migraines, presenting to the ED complaining of acute on chronic low back pain radiating down bilateral lower extremities. R eports pain began since fall in kitchen in September has see PCP taking prednisone, Robaxin, tramadol without any relief, scheduled to see specialist on the . Denies new or more recent injury, numbness/tingling, weakness, urinary incontinence/retention, fever MD elicited complaint: back pain Related Data Home Medications Medication Instructions Recorded Confirmed cyclobenzaprine 10 mg tablet 10 mg PO BEDTIME 02/20/20 05/13/20 loratadine 10 mg capsule 10 mg PO DAILY 02/20/20 05/13/20 paroxetine HCl 40 mg tablet (Paxil) 50 mg PO DAILY tab 02/20/20 05/13/20 tramadol 50 mg tablet 50 mg PO DAILY 02/20/20 05/13/20 mirtazapine 15 mg tablet (Remeron) 15 mg PO DAILY 05/13/20 05/13/20 Previous Rx's Medication Instructions Recorded metronidazole 500 mg tablet 500 mg PO BID 7 Days #14 tab 03/05/20 (Flagyl) metronidazole 500 mg tablet 500 mg PO BID 7 Days #14 tab 04/24/20 azithromycin 250 mg tablet 250 mg PO DAILY 5 Days #5 tab 05/27/20 benzonatate 100 mg capsule 100 mg PO TID PRN #30 cap 05/27/20 (Tessalon Perles) cyclobenzaprine 10 mg tablet 10 mg PO TID #10 tab 10/26/20 naproxen 500 mg tablet (Naprosyn) 500 mg PO BID #20 tab 10/26/20 albuterol sulfate 90 mcg/actuation 2 puff INHALATION Q6H PRN #8.5 g 11/14/20 aerosol inhaler prednisone 20 mg tablet 60 mg PO DAILY 5 Days #15 tab 11/14/20 hydrocodone 5 mg-acetaminophen 325 1 tab PO Q8H PRN 3 Days #9 tab 12/08/20 mg tablet lidocaine 5 % topical patch 1 patch TOPICAL DAILY PRN #30 ea 12/08/20 (Lidoderm) MDD remove after 12 hours Allergies Allergy/AdvReac Type Severity Reaction Status Date / Time dust Allergy Unknown unknown Uncoded 05/27/20 20:20 Review of Systems Review of Systems: Constitutional: No Fever, No Chills ENT/Mouth: No Ear Pain, No sore throat Cardiovascular: No Chest Pain, No SOB Respiratory: No Cough, No Sputum, No Wheezing Gastrointestinal: No Nausea, No Vomiting, No Abdominal pain Genitourinary:No Dysuria, No Urinary Frequency, No Hematuria, No Urinary Incontinence/retention Musculoskeletal: + joint pain, No Myalgias, No Joint Swelling Skin: No Skin Lesions, No rash Neuro: No Weakness, No Numbness, No Paresthesias Yes all other systems are reviewed and are negative Neurologic: Denies Sensory deficit (Neuro) [facility] Past Medical History Attestation statement: The following information was validated with the patient. Medical History Arthritis Asthma Depression Fibromyalgia Migraines Surgical History H/O LEEP History of bilateral tubal ligation History of carpal tunnel release History of salpingo-oophorectomy Family History Family History Sister History of breast cancer, Onset Age: 52 Brother History of bone cancer History of blood disorder History of brain cancer Paternal Aunt History of cancer of uterus Social History Social History Alcohol intake: never Advance Directives: Yes Advance Directives Information Provided: Yes Advance Directives on File: No Sexual orientation: Straight/Heterosexual Gender identity: Female Physical Exam Vital Signs: Vital Signs: Last Vital Signs Temp 96.6 F L 12/08/20 09:13 Pulse 72 12/08/20 09:13 Resp 14 12/08/20 09:13 BP 136/74 12/08/20 09:13 Pulse Ox 99 12/08/20 09:13 Body Mass Index 22.6 Const: General: cooperative and healthy appearing Orientation/consciousness: patient oriented x3 Limitations: no limitations HENMT: Head: Yes normal to inspection Ears: hearing grossly normal bilaterally General nose exam: Normal external nose present Face and sinus: Yes normal facial exam Eyes: General: appearance normal, both eyes and all related structures EOM: EOMs intact bilaterally Neck: Other: No midline cervical spinous tenderness Neck: Yes normal visual inspection Resp: Effort & Inspection: normal respiratory effort and no respiratory distress Cardio: Rate: regular rate Back/Spine/Pelvis: Other: No midline thoracic/lumbar spinous tenderness. + visible lumbar muscle spasming/swelling and bilateral lumbar MSK tenderness to palpation. Skin: Rashes: no rashes Wounds: no wounds Neuro: Other: No saddle anesthesia General: patient oriented x3, gait normal, tone normal and moves all extremities Gait exam (Neuro): Normal gait present Sensory Exam: No Sensory deficit (Neuro) Extrem: General: Yes normal to inspection MDM - Back Pain/Injury MDM Narrative Medical decision making narrative: On exam VSS, NAD/well-appearing, physical exam as above. No midline spinous tenderness throughout, no red flag symptoms. On x-rays from 10/26 show sacralization of the left side of L5. Mass PAT review shows patient filled prescription of 28 days supply of tramadol on 11/25 Will give Toradol injection in the ED and 3 days supply of [place] Medical Records Attestation: I reviewed the patient's medical records. Discharge Plan Discharge Clinical Impression: Lumbar radiculopathy Patient Disposition: Home, Self-Care Instructions: Acute Low Back Pain (ED), Lumbar Radiculopathy (ED) Additional Instructions: Your pain is likely musculoskeletal Continue taking Naproxen as an anti-inflammatory / pain medication, take with food [place] 10 opiate medication, take pain is severe for the next 3 days Lidoderm patches are numbing patches, apply to painful area In addition take Tylenol at home If symptoms persist or worsen, pain becomes unbearable, you developed urinary retention or incontinence, or weakness return to the ED Prescriptions: New hydrocodone-acetaminophen 5-325 mg tablet 1 tab PO Q8H PRN (Reason: pain, severe) 3 Days Qty: 9 RF: 0 lidocaine [Lidoderm] 5 % adhesive patch,medicated 1 patch topical DAILY MDD remove after 12 hours PRN (Reason: pain) Qty: 30 RF: 0 No Action metronidazole 500 mg tablet 500 mg PO BID 7 Days Qty: 14 RF: 0 cyclobenzaprine 10 mg tablet 10 mg PO TID Qty: 10 RF: 0 naproxen [Naprosyn] 500 mg tablet 500 mg PO BID Qty: 20 RF: 0 prednisone 20 mg tablet 60 mg PO DAILY 5 Days Qty: 15 RF: 0 albuterol sulfate 90 mcg/actuation HFA aerosol inhaler 2 puff inhalation Q6H PRN (Reason: shortness of breath or wheezing) Qty: 8.5 RF: 0 azithromycin 250 mg tablet 250 mg PO DAILY 5 Days Qty: 5 RF: 0 benzonatate [Tessalon Perles] 100 mg capsule 100 mg PO TID PRN (Reason: cough) Qty: 30 RF: 0 metronidazole [Flagyl] 500 mg tablet 500 mg PO BID 7 Days Qty: 14 RF: 0 loratadine 10 mg capsule 10 mg PO DAILY RF: 0 paroxetine HCl [Paxil] 40 mg tablet 50 mg PO DAILY RF: 0 tramadol 50 mg tablet 50 mg PO DAILY RF: 0 cyclobenzaprine 10 mg tablet 10 mg PO BEDTIME RF: 0 mirtazapine [Remeron] 15 mg tablet 15 mg PO DAILY RF: 0 Referrals: Dory Ray MD [Primary Care Provider] - 2 days
[2020-12-08] MEDS: Ketorolac Tromethamine 15 MG/ML VIAL 30 MG IM (10:02)
== END 2020-12-08 10:13 | disposition home or self-care (01) ==
PROVIDERS: Emergency Provider Emergency Medicine; PCP Internal Medicine
DX: M54.16 Radiculopathy, lumbar region (principal); M54.5 Low back pain
CPT/HCPCS: 96372; 99284; J1885

== ENCOUNTER 2020-12-19 09:16 | Outpatient (REF) | payer MEDICAID, SELFPAY ==
--- NOTE | ~2020-12-19 | MR_ITS ---
EXAMINATION: MR LUMBAR SPINE WITHOUT CONTRAST CLINICAL INFORMATION: Back pain with left-sided sciatica. Right and left leg pain. COMPARISON: Lumbar spine radiographs dated 10/26/2020. TECHNIQUE: MRI of the lumbar spine was obtained using routine sequences without contrast. FINDINGS: VERTEBRAL BODIES AND PARASPINAL STRUCTURES: Normal vertebral body alignment. The lumbar lordosis is maintained. No acute fracture or subluxation. No loss of vertebral body height. Mild loss of intervertebral disc height with disc desiccation at L2-L3 and L5-S1. Tiny multilevel endplate osteophytes. No marrow edema to suggest acute osseous injury. The visualized paraspinal soft tissues are unremarkable. CONUS MEDULLARIS AND CAUDA EQUINA: Normal, terminating at the level of L1. SPINAL LEVELS: T12-L1: No significant disc bulge. No central canal or neural foraminal stenosis. L1-L2: Minimal broad-based disc bulge and bilateral facet arthropathy. No central canal or neural foraminal stenosis. L2-L3: Mild broad-based disc bulge with bilateral facet arthropathy causing mild bilateral neural foraminal stenosis. No significant central canal stenosis. L3-L4: Mild broad-based disc bulge. Superimposed left subarticular disc protrusion. Mild bilateral facet arthropathy and thickening of the ligamentum flavum. Findings encroach upon the traversing left L4 nerve root within the lateral recess. [id number] left and mild right neural foraminal stenosis. L4-L5: Mild broad-based disc bulge with a shallow posterior central disc protrusion, bilateral facet arthropathy, and thickening of the ligamentum flavum causing mild central canal stenosis and encroaching upon the traversing bilateral L5 nerve roots within the lateral recesses. Mild bilateral neural foraminal stenosis. L5-S1: No significant disc bulge. Bilateral facet arthropathy and thickening of the ligamentum flavum with mild bilateral neural foraminal stenosis. MR/MR lumbar spine wo con IMPRESSION: 1. Mild broad-based disc bulge at L2 L4 L1 superimposed left subarticular disc protrusion. Mild bilateral facet arthropathy and thickening of the ligamentum flavum which encroaches upon the traversing left L4 nerve root in the lateral recess and causes [id number] left as well as mild right neural foraminal stenosis. 2. Mild broad-based disc bulge at L4-L5 with a shallow posterior central disc extrusion, bilateral facet arthropathy, and thickening of the ligamentum flavum causing mild central canal stenosis and encroaching upon the traversing bilateral L5 nerve roots. Mild bilateral neural foraminal stenosis. 3. Mild broad-based disc bulge at L2-L3 with bilateral facet arthropathy causing mild bilateral neural foraminal stenosis.
== END 2020-12-19 09:17 | disposition home or self-care (01) ==
LOC: HO.MRI 09:16
PROVIDERS: PCP Internal Medicine; Visit Provider Registered Nurse Community Health
DX: M54.42 Lumbago with sciatica, left side (principal)
CPT/HCPCS: 72148

== ENCOUNTER 2020-12-27 10:33 | Emergency (ER) | payer MEDICAID, SELFPAY ==
[2020-12-27 11:00] VITALS: BP 113/78; PULSE 78; RESP 18; TEMP 36.7; O2SAT 99; BMI 22.6
== END 2020-12-27 12:36 | disposition left against medical advice (07) ==
PROVIDERS: Emergency Provider Emergency Medicine; PCP Internal Medicine
DX: R51.9 Headache, unspecified (principal); R06.02 Shortness of breath; R53.1 Weakness
CPT/HCPCS: 99281; 99282

== ENCOUNTER 2021-01-06 09:18 | Outpatient (REF) | payer MEDICAID, SELFPAY ==
[2021-01-07 09:22] LABS: CT PCR NOT DETECTED (Not Detect.); NG PCR NOT DETECTED (Not Detect.)
[2021-01-07 09:55] LABS: BV Int Neg Control Negative (Negative); BV Int Pos Control Positive (Positive)
== END 2021-01-06 09:19 | disposition home or self-care (01) ==
LOC: HO.LAB 09:18
PROVIDERS: Visit Provider Obstetrics & Gynecology
DX: N92.1 Excessive and frequent menstruation with irregular cycle (principal); N76.0 Acute vaginitis; B96.89 Other specified bacterial agents as the cause of diseases classified elsewhere; R19.04 Left lower quadrant abdominal swelling, mass and lump
CPT/HCPCS: 87480; 87491; 87510; 87591; 87660; 99212

== ENCOUNTER 2021-01-29 09:40 | Outpatient (REF) | payer MEDICAID, SELFPAY ==
--- NOTE | ~2021-01-29 | XR_ITS ---
EXAMINATION: XR HAND, LEFT CLINICAL INFORMATION: Bouchards nodes with arthropathy. COMPARISON: 03/22/2008 report only. TECHNIQUE: PA, lateral, and oblique views of the left hand. FINDINGS: No fracture or dislocation. Alignment is anatomic. Joint spaces are maintained. No osseous erosion. No soft tissue abnormality. XR/XR hand LT min 3V IMPRESSION: Normal left hand. No arthritic changes noted.
== END 2021-01-29 09:41 | disposition home or self-care (01) ==
LOC: HO.XRAY 09:40
PROVIDERS: Absent Provider Internal Medicine; PCP Internal Medicine; Visit Provider Registered Nurse
DX: M15.2 Bouchard's nodes (with arthropathy) (principal)
CPT/HCPCS: 73130

== ENCOUNTER 2021-01-30 08:34 | Emergency (ER) | payer MEDICAID, SELFPAY ==
--- NOTE | ~2021-01-30 | XR_ITS ---
EXAMINATION: XR CHEST CLINICAL INFORMATION: Shortness of breath, diminished lung sounds on right. COMPARISON: Chest radiographs 11/14/2020, 01/14/2020 TECHNIQUE: The chest is imaged in 2 frontal views and a lateral projection for a total of 3 views. FINDINGS: The lungs are clear. There is no pneumothorax, pleural reaction, airspace consolidation, groundglass opacity. The costophrenic sulci are well-defined and there is no effusion. The cardiac and hilar and mediastinal contours and visualized bony structures are unremarkable. XR/XR chest 2V IMPRESSION: Unremarkable examination.
[2021-01-30 09:03] VITALS: BP 135/72; PULSE 87; RESP 16; TEMP 36.7; O2SAT 100; BMI 23.5
--- NOTE | 2021-01-30 09:14 | ED.HA ---
HPI - Headache General Chief Complaint: Headache Stated Complaint: cold, cough Time Seen by Provider: 01/30/21 09:14 Source: patient Mode of arrival: ambulatory Limitations: no limitations History of Present Illness HPI Narrative: 45-year-old female past medical history of COPD, emphysema, asthma presents to the emergency department with 3 days of dry cough, rhinorrhea, headache and chills. She states that she was recently seen by her primary care provider for upper respiratory symptoms, and because she was wheezing a lot, she was placed on prednisone for the wheezing, but they did not prescribe her any antibiotics. She states she is having facial pressure, a dry cough, runny nose w/ green/yellow discharge, and she states that she has had chills she is unsure of whether not she has had a fever. She also mentions a headache, she describes as tightness, and pressure to her head, forehead. Denies shortness of breath, chest pain, abdominal pain, nausea, vomiting, weakness. MD elicited complaint: headache Pertinent past history: other (recent URI ) Onset (ago): day(s) (3) Onset description: gradually and other (worse with cough ) Location: frontal and facial Severity: moderate Quality & Timing: squeezing and pressure Exacerbating factors: none Relieving factors: nothing Associated symptoms: other (chills) Related Data Home Medications Medication Instructions Recorded Confirmed cyclobenzaprine 10 mg tablet 10 mg PO BEDTIME 02/20/20 05/13/20 loratadine 10 mg capsule 10 mg PO DAILY 02/20/20 05/13/20 paroxetine HCl 40 mg tablet (Paxil) 50 mg PO DAILY tab 02/20/20 05/13/20 mirtazapine 15 mg tablet (Remeron) 15 mg PO DAILY 05/13/20 05/13/20 baclofen 20 mg tablet 20 mg PO TID 01/06/21 diclofenac sodium 75 mg 75 mg PO BID 01/06/21 tablet,delayed release fluticasone propionate 50 2 spray INTRANASAL DAILY 01/06/21 mcg/actuation nasal spray,suspension gabapentin 600 mg tablet 600 mg PO BID PRN 01/06/21 lorazepam 1 mg tablet 1 mg PO DAILY PRN 01/06/21 Previous Rx's Medication Instructions Recorded metronidazole 500 mg tablet 500 mg PO BID 7 Days #14 tab 03/05/20 (Flagyl) metronidazole 500 mg tablet 500 mg PO BID 7 Days #14 tab 04/24/20 azithromycin 250 mg tablet 250 mg PO DAILY 5 Days #5 tab 05/27/20 benzonatate 100 mg capsule 100 mg PO TID PRN #30 cap 05/27/20 (Violetasalclarisa Cartwright) cyclobenzaprine 10 mg tablet 10 mg PO TID #10 tab 10/26/20 naproxen 500 mg tablet (Naprosyn) 500 mg PO BID #20 tab 10/26/20 albuterol sulfate 90 mcg/actuation 2 puff INHALATION Q6H PRN #8.5 g 11/14/20 aerosol inhaler prednisone 20 mg tablet 60 mg PO DAILY 5 Days #15 tab 11/14/20 hydrocodone 5 mg-acetaminophen 325 1 tab PO Q8H PRN 3 Days #9 tab 12/08/20 mg tablet lidocaine 5 % topical patch 1 patch TOPICAL DAILY PRN #30 ea 12/08/20 (Lidoderm) MDD remove after 12 hours metronidazole 500 mg tablet 500 mg PO BID 7 Days #14 tab 01/06/21 barium sulfate 2 % (w/v) oral 900 ml PO ONCE #900 ml 01/21/21 suspension (Readi-Cat 2) amoxicillin 875 mg-potassium 1 tab PO BID 7 Days #14 tab 01/30/21 clavulanate 125 mg tablet (Augmentin) benzonatate 100 mg capsule 100 mg PO BID PRN #14 cap 01/30/21 (Tessalon Chay) Allergies Allergy/AdvReac Type Severity Reaction Status Date / Time dust Allergy Unknown unknown Uncoded 05/27/20 20:20 Review of Systems Review of Systems: Yes all other systems are reviewed and are negative Constitutional: Constitutional: Reports no additional constitutional complaints, Denies body ache(s), Reports chills, Denies fever(s), Reports headache(s) and Denies weakness Eyes: Eyes: Reports no additional eye complaints and Denies change in vision ENT: Reports system reviewed and no additional complaints, except as documented, Denies dizziness, Reports headache(s), Reports nasal congestion, Reports nasal discharge, Denies neck pain and Reports sinus pain Cardiovascular: Cardiovascular: Reports no additional cardiovascular complaints, Denies chest pain, Denies leg edema and Denies dyspnea Respiratory: Respiratory: Reports no additional respiratory complaints, Denies cough and Denies dyspnea Gastrointestinal: Gastrointestinal: Reports no additional gastrointestinal complaints, Denies abdominal pain, Denies diarrhea, Denies nausea and Denies vomiting Genitourinary: Genitourinary: Reports no additional female genitourinary complaints and Denies urinary incontinence Musculoskeletal: Musculoskeletal: Reports no additional musculoskeletal complaints, Denies back pain, Denies arthralgias, Denies joint swelling, Denies neck pain, Denies numbness and Denies tingling Integumentary/Breasts: Skin/Breast: Reports system reviewed and no additional complaints, except as docu and Denies rash Neurologic: Reports system reviewed and no additional complaints, except as documented, Denies Abnormal speech present, Denies dizziness, Reports headache(s), Denies numbness, Denies tingling and Denies weakness PMFSH Past Medical History Attestation statement: The following information was validated with the patient. Source: old records reviewed and nursing notes reviewed Medical History Arthritis Asthma COVID-19 Depression Fibromyalgia Migraines Surgical History H/O LEEP History of bilateral tubal ligation History of carpal tunnel release History of salpingo-oophorectomy Family History Family History Sister History of breast cancer, Onset Age: 52 Brother History of bone cancer History of blood disorder History of brain cancer Paternal Aunt History of cancer of uterus Social History Social History Alcohol intake: never Advance Directives: No Patient : No Sexual orientation: Straight/Heterosexual Gender identity: Female Physical Exam Vital Signs: Vital Signs: Last Vital Signs Temp 98.1 F 01/30/21 09:03 Pulse 87 01/30/21 09:03 Resp 16 01/30/21 09:03 BP 135/72 01/30/21 09:03 Pulse Ox 100 01/30/21 09:03 Body Mass Index 23.5 Const: General: cooperative, healthy appearing, comfortable and no acute distress Orientation/consciousness: patient oriented x3 Limitations: no limitations HENMT: Head: Yes normal to inspection Ears: hearing grossly normal bilaterally General nose exam: Normal external nose present and Other nasal findings present (dark yello nasal d/c) Face and sinus: Yes normal facial exam and No sinuses nontender (Tenderness to percussion and palpation of maxilarry and ethmoid sinuses ) Mouth: Normal oral and palatal mucosa present Throat: Yes posterior oropharynx normal Eyes: General: appearance normal, both eyes and all related structures Pupils: Equal, round and reactive pupils present Neck: Neck: Yes normal visual inspection Chest: Chest palpation & inspection: normal inspection of the chest Resp: Effort & Inspection: normal respiratory effort Auscultation: clear to auscultation bilaterally (w/ dimished breathsounds in right lower lobe ) Cardio: Rate: regular rate Rhythm: regular rhythm Peripheral pulses: Peripheral pulses 2+ throughout GI: Inspection: Yes normal to inspection Palpation (GI): Soft to palpation and nontender Auscultation: normal bowel sounds Back/Spine/Pelvis: Thoracic/Lumbar Spine: thoracic and lumbar spine normal to inspection Skin: General skin exam: no rashes or lesions noted Neuro: General: patient oriented x3, no focal motor deficits and normal sensation to monofilament Cranial nerves: Yes Equal, round and reactive pupils present Cognition (Neuro): normal cognition Speech: No Abnormal speech present Gait exam (Neuro): Normal gait present Motor exam (neuro): 5/5 motor strength present throughout Extrem: General: Yes normal to inspection Course Reevaluation(s) Reevaluation #1: At this time patient is refusing Tylenol, she will be given Fioricet for her headache. X-ray shows no acute findings. COVID negative. This is likely sinusitis. She will be discharged home on antibiotics and given Tessalon Perles for the cough. She has been advised to follow-up with her primary care provider. Return with new or worsening symptoms. She is safe for discharge home with PCP MDM - Headache MDM Narrative Medical decision making narrative: 45-year-old female past medical history is significant COPD, asthma, migraines presents emergency department with 3 days of worsening upper respiratory symptoms. She was recently seen at her primary care provider and put on prednisone for wheezing. She states all of her symptoms have worsened, and she states she has been having headache when she coughs because she has been coughing so much. She is vaccinated against COVID 19. Upon physical examination there are diminished lung sounds in the low right lower lobe. There is green/yellow nasal discharge. And there is pain & pressure with bending over. There is also discomfort with palpation, and percussion over the sinuses. Based off of patient history, and physical examination this is likely sinusitis. However, chest x-ray will be done to rule out pneumonia. Medical Records Attestation: I reviewed the patient's medical records. Lab Data Attestation: I reviewed the patient's lab results. Labs: Lab Results 01/30/21 Range/Units 09:23 COVID-19 ([facility]) Negative (Negative) COVID-19 Clin Com See Note Imaging Data Chest x-ray: Attestation: I personally reviewed and interpreted this imaging study as follows: Radiologist's impression: FINDINGS: The lungs are clear. There is no pneumothorax, pleural reaction, airspace consolidation, groundglass opacity. The costophrenic sulci are well-defined and there is no effusion. The cardiac and hilar and mediastinal contours and visualized bony structures are unremarkable. XR/XR chest 2V IMPRESSION: Unremarkable examination. Discharge Plan Discharge Clinical Impression: Cough Sinusitis Qualifiers: Sinusitis location: unspecified location Chronicity: acute Recurrence: not specified as recurrent Qualified Code(s): J01.90 - Acute sinusitis, unspecified Upper respiratory infection Qualifiers: URI type: unspecified viral URI Qualified Code(s): J06.9 - Acute upper respiratory infection, unspecified Patient Disposition: Home, Self-Care Instructions: Sinusitis (ED), Acute Cough (ED) Additional Instructions: Your x-ray looked good today, no signs of pneumonia. Your symptoms are likely from sinusitis. Antibiotics have been prescribed, it is important that you take these as prescribed, do not miss any doses, do not stop them early. Follow-up with your primary care provider this week. If you develop a fever you can take Tylenol, or Motrin. Return to the emergency department with new or worsening symptoms. Prescriptions: New amoxicillin-pot clavulanate [Augmentin] 875-125 mg tablet 1 tab PO BID 7 Days Qty: 14 RF: 0 benzonatate [Tessalon Perles] 100 mg capsule 100 mg PO BID PRN (Reason: cough) Qty: 14 RF: 0 No Action metronidazole 500 mg tablet 500 mg PO BID 7 Days Qty: 14 RF: 0 Readi-Cat 2 2 % (w/v) suspension 900 ml PO ONCE Qty: 900 RF: 0 cyclobenzaprine 10 mg tablet 10 mg PO TID Qty: 10 RF: 0 naproxen [Naprosyn] 500 mg tablet 500 mg PO BID Qty: 20 RF: 0 prednisone 20 mg tablet 60 mg PO DAILY 5 Days Qty: 15 RF: 0 albuterol sulfate 90 mcg/actuation HFA aerosol inhaler 2 puff inhalation Q6H PRN (Reason: shortness of breath or wheezing) Qty: 8.5 RF: 0 azithromycin 250 mg tablet 250 mg PO DAILY 5 Days Qty: 5 RF: 0 benzonatate [Tessalon Perles] 100 mg capsule 100 mg PO TID PRN (Reason: cough) Qty: 30 RF: 0 hydrocodone-acetaminophen 5-325 mg tablet 1 tab PO Q8H PRN (Reason: pain, severe) 3 Days Qty: 9 RF: 0 lidocaine [Lidoderm] 5 % adhesive patch,medicated 1 patch topical DAILY MDD remove after 12 hours PRN (Reason: pain) Qty: 30 RF: 0 diclofenac sodium 75 mg tablet,delayed release (DR/EC) 75 mg PO BID RF: 0 baclofen 20 mg tablet 20 mg PO TID RF: 0 gabapentin 600 mg tablet 600 mg PO BID PRNRF: 0 lorazepam 1 mg tablet 1 mg PO DAILY PRNRF: 0 fluticasone propionate 50 mcg/actuation spray,suspension 2 spray intranasal DAILY RF: 0 metronidazole [Flagyl] 500 mg tablet 500 mg PO BID 7 Days Qty: 14 RF: 0 loratadine 10 mg capsule 10 mg PO DAILY RF: 0 paroxetine HCl [Paxil] 40 mg tablet 50 mg PO DAILY RF: 0 cyclobenzaprine 10 mg tablet 10 mg PO BEDTIME RF: 0 mirtazapine [Remeron] 15 mg tablet 15 mg PO DAILY RF: 0 metronidazole 500 mg tablet 500 mg PO BID 7 Days Qty: 14 RF: 0 Referrals: Dory Ray MD [Primary Care Provider] - 2 days Stand Alone Forms: Work/School Release Interventions: ED Discharge Assessment Last Done: 01/30/21 10:20 Discharge Date/Time: 01/30/21 10:21
[2021-01-30 09:52] LABS: COVID-19 Test Negative (Negative); IDNOW Serial# 9DD0AD1C
[2021-01-30] MEDS: Butalb/Acetamin/Caff 50/325/40 TABLET 1 TAB PO (10:19)
== END 2021-01-30 10:21 | disposition home or self-care (01) ==
PROVIDERS: Nurse Practitioner Family; Emergency Provider Emergency Medicine; PCP Internal Medicine
DX: J06.9 Acute upper respiratory infection, unspecified (principal); J01.90 Acute sinusitis, unspecified; J43.9 Emphysema, unspecified; Z20.822 Contact with and (suspected) exposure to COVID-19
CPT/HCPCS: 36415; 71046; 87635; 99284

== ENCOUNTER 2021-02-08 12:41 | Emergency (ER) | payer MEDICAID, SELFPAY ==
--- NOTE | ~2021-02-08 | XR_ITS ---
EXAMINATION: XR CHEST CLINICAL INFORMATION: Cough. COMPARISON: Chest x-ray January 30, 2021 TECHNIQUE: Frontal view of the chest was obtained. 1:56 PM FINDINGS: No significant abnormality is noted involving the heart, lungs, mediastinum, bony thorax or soft tissues. XR/XR chest 1V IMPRESSION: Unremarkable examination.
--- NOTE | 2021-02-08 12:59 | ECG_ITS ---
Test Reason : CHEST TIGHTNES Blood Pressure : / mmHG Vent. Rate : 080 BPM Atrial Rate : 080 BPM P-R Int : 112 ms QRS Dur : 084 ms QT Int : 352 ms P-R-T Axes : 058 056 055 degrees QTc Int : 405 ms Normal sinus rhythm Minimal voltage criteria for LVH, may be normal variant ( Sokolow-Richards ) Borderline ECG No significant changes seen Referred By: Generic ED Physician Electronically Signed By:JOHN NICOLE MD
[2021-02-08 13:13] VITALS: BP 105/75; PULSE 76; RESP 20; TEMP 36.6; O2SAT 99; BMI 23.6
--- NOTE | 2021-02-08 13:39 | ED_ITS ---
HPI - URI/Sore Throat General Chief Complaint: Upper Respiratory Symptoms Stated Complaint: chest tightness, lung pain Time Seen by Provider: 02/08/21 13:13 History of Present Illness HPI Narrative: Patient is a 45-year-old female presents today with having chest pain. Coughing upper respiratory symptoms. The symptoms been ongoing for days. Patient was seen in the in the last month for similar symptoms. Now she is developing chest pain. The chest pain is worse when she lies down worse when she coughs. Improved with sitting up. No exertional component. Patient does have a history of smoking. No history of diabetes, high blood pressure, high cholesterol. Never had a heart attack. She did have her coronavirus vaccine. Patient denies any leg swelling. Denies any history of blood clots. Is not on control. Related Data Home Medications Medication Instructions Recorded Confirmed cyclobenzaprine 10 mg tablet 10 mg PO BEDTIME 02/20/20 05/13/20 loratadine 10 mg capsule 10 mg PO DAILY 02/20/20 05/13/20 paroxetine HCl 40 mg tablet (Paxil) 50 mg PO DAILY tab 02/20/20 05/13/20 mirtazapine 15 mg tablet (Remeron) 15 mg PO DAILY 05/13/20 05/13/20 baclofen 20 mg tablet 20 mg PO TID 01/06/21 diclofenac sodium 75 mg 75 mg PO BID 01/06/21 tablet,delayed release fluticasone propionate 50 2 spray INTRANASAL DAILY 01/06/21 mcg/actuation nasal spray,suspension gabapentin 600 mg tablet 600 mg PO BID PRN 01/06/21 lorazepam 1 mg tablet 1 mg PO DAILY PRN 01/06/21 Previous Rx's Medication Instructions Recorded metronidazole 500 mg tablet 500 mg PO BID 7 Days #14 tab 03/05/20 (Flagyl) metronidazole 500 mg tablet 500 mg PO BID 7 Days #14 tab 04/24/20 azithromycin 250 mg tablet 250 mg PO DAILY 5 Days #5 tab 05/27/20 benzonatate 100 mg capsule 100 mg PO TID PRN #30 cap 05/27/20 (Tessalon Chay) cyclobenzaprine 10 mg tablet 10 mg PO TID #10 tab 10/26/20 naproxen 500 mg tablet (Naprosyn) 500 mg PO BID #20 tab 10/26/20 albuterol sulfate 90 mcg/actuation 2 puff INHALATION Q6H PRN #8.5 g 11/14/20 aerosol inhaler prednisone 20 mg tablet 60 mg PO DAILY 5 Days #15 tab 11/14/20 hydrocodone 5 mg-acetaminophen 325 1 tab PO Q8H PRN 3 Days #9 tab 12/08/20 mg tablet lidocaine 5 % topical patch 1 patch TOPICAL DAILY PRN #30 ea 12/08/20 (Lidoderm) MDD remove after 12 hours metronidazole 500 mg tablet 500 mg PO BID 7 Days #14 tab 01/06/21 barium sulfate 2 % (w/v) oral 900 ml PO ONCE #900 ml 01/21/21 suspension (Readi-Cat 2) amoxicillin 875 mg-potassium 1 tab PO BID 7 Days #14 tab 01/30/21 clavulanate 125 mg tablet (Augmentin) benzonatate 100 mg capsule 100 mg PO BID PRN #14 cap 01/30/21 (Tessalon Perles) Allergies Allergy/AdvReac Type Severity Reaction Status Date / Time dust Allergy Unknown unknown Uncoded 05/27/20 20:20 Review of Systems Review of Systems: Positive coughing upper respiratory symptoms. Positive chest pain. No cold sweat PMFSH Past Medical History Attestation statement: The following information was validated with the patient. Medical History Arthritis Asthma COVID-19 Depression Fibromyalgia Migraines Surgical History H/O LEEP History of bilateral tubal ligation History of carpal tunnel release History of salpingo-oophorectomy Family History Family History Sister History of breast cancer, Onset Age: 52 Brother History of bone cancer History of blood disorder History of brain cancer Paternal Aunt History of cancer of uterus Social History Social History Alcohol intake: never Advance Directives: No Sexual orientation: Straight/Heterosexual Gender identity: Female Physical Exam Vital Signs: Vital Signs: Last Vital Signs Temp 97.8 F 02/08/21 13:13 Pulse 76 02/08/21 13:13 Resp 20 02/08/21 13:13 BP 105/75 02/08/21 13:13 Pulse Ox 99 02/08/21 13:13 Body Mass Index 23.6 Appearance: Alert. Oriented X3. No acute distress. Eyes: Pupils equal, round and reactive to light. ENT: Pharynx normal. Neck: Normal inspection. Neck supple. No lymph nodes noted. No crepitus CVS: Normal heart rate and rhythm. Pulses normal. Normal S1 and S2 Respiratory: No respiratory distress. Breath sounds normal. No Wheezing. No rales Abdomen: Soft and nontender. No rigidity. No distention. good BS x4 Skin: Skin warm and dry. Normal skin color. Normal skin turgor. Extremities: No lower extremity edema. Neurovascular intact to all extremities. No Lacerations. No Rash Neuro: Oriented X 3. No motor deficit. No sensory deficit. Moving all extermities. No slurred speech MDM - URI/Sore Throat MDM Narrative Medical decision making narrative: EKG showed a sinus pattern heart rate is 80 p.o. clears QT within normal limits. There is no ST segment elevation. Patient's D-dimer was negative. There is no evidence for PE in the setting of low risk. Patient's chest x-ray negative for pneumonia pneumothorax. Patient's troponin was negative she has been having chest pain all night. In the setting of she is 45. Negative troponin. History not consistent with ACS. Patient's heart score is less than 3. Will discharge patient home. Close follow-up outpatient basis. Medical Records Attestation: I reviewed the patient's medical records. Lab Data Attestation: I reviewed the patient's lab results. Result diagrams: 02/08/21 14:02 02/08/21 14:02 Labs: Lab Results 02/08/21 02/08/21 02/08/21 Range/Units 14:02 14:02 14:02 WBC 9.1 (4.8-10.8) X10*3/uL RBC 3.94 L (4.20-5.50) X10*6/uL Hgb 12.8 (12.0-16.0) g/dl Hct 38.1 (37.0-47.0) % MCV 96.7 (80.0-98.0) fL MCH 32.5 (27.0-33.0) pg MCHC 33.6 (31.0-35.0) g/dl RDW 12.6 (11.0-16.0) % Plt Count 249 (160-400) X10*3/uL MPV 9.5 (9.4-12.3) fL Immature Gran % (Auto) 0.4 (0.0-0.4) % Neut % (Auto) 61.9 (45-73) % Lymph % (Auto) 30.5 (20-40) % [place] % (Auto) 6.2 (2-11) % Eos % (Auto) 0.8 (0-4) % Baso % (Auto) 0.2 (0-2) % Lymph # (Auto) 2.8 (1.2-4.9) X10*3/uL [place] # (Auto) 0.6 (0.1-1.2) X10*3/uL Eos # (Auto) 0.1 (0.0-0.4) X10*3/uL Baso # (Auto) 0.0 (0.0-0.2) X10*3/uL Abs Immat Gran (auto) 0.04 H (0.00-0.03) X10*3/uL Absolute Neuts (auto) 5.6 (2.0-8.3) x10*3/uL Absolute Nucleated RBC 0.000 (0.0-0.012) X10*3/uL Nucleated RBC % (auto) 0.0 (0.0-0.2) /100WBC D-Dimer 224 NG/ML Sodium 139 (135-145) mmol/L Potassium 3.9 (3.3-5.1) mmol/L Chloride 108 (96-108) mmol/L Carbon Dioxide 25 (22-29) mmol/L Anion Gap 10 L (12-20) BUN 10 (9-16) mg/dL Creatinine 0.78 (0.5-1.4) mg/dL Estim Creat Clear Calc 76.9 Estimated GFR > 60 Random Glucose 93 (60-115) mg/dL Calcium 8.8 (8.4-10.2) mg/dL Troponin I High Sens (<3.5-17.0) ng/L 02/08/21 Range/Units 14:02 WBC (4.8-10.8) X10*3/uL RBC (4.20-5.50) X10*6/uL Hgb (12.0-16.0) g/dl Hct (37.0-47.0) % MCV (80.0-98.0) fL MCH (27.0-33.0) pg MCHC (31.0-35.0) g/dl RDW (11.0-16.0) % Plt Count (160-400) X10*3/uL MPV (9.4-12.3) fL Immature Gran % (Auto) (0.0-0.4) % Neut % (Auto) (45-73) % Lymph % (Auto) (20-40) % [place] % (Auto) (2-11) % Eos % (Auto) (0-4) % Baso % (Auto) (0-2) % Lymph # (Auto) (1.2-4.9) X10*3/uL [place] # (Auto) (0.1-1.2) X10*3/uL Eos # (Auto) (0.0-0.4) X10*3/uL Baso # (Auto) (0.0-0.2) X10*3/uL Abs Immat Gran (auto) (0.00-0.03) X10*3/uL Absolute Neuts (auto) (2.0-8.3) x10*3/uL Absolute Nucleated RBC (0.0-0.012) X10*3/uL Nucleated RBC % (auto) (0.0-0.2) /100WBC D-Dimer NG/ML Sodium (135-145) mmol/L Potassium (3.3-5.1) mmol/L Chloride (96-108) mmol/L Carbon Dioxide (22-29) mmol/L Anion Gap (12-20) BUN (9-16) mg/dL Creatinine (0.5-1.4) mg/dL Estim Creat Clear Calc Estimated GFR Random Glucose (60-115) mg/dL Calcium (8.4-10.2) mg/dL Troponin I High Sens < 3.5 (<3.5-17.0) ng/L Discharge Plan Discharge Clinical Impression: Chest pain, Acute upper respiratory infection Patient Disposition: Home, Self-Care Instructions: Chest Pain (ED), Upper Respiratory Infection (ED) Prescriptions: No Action metronidazole 500 mg tablet 500 mg PO BID 7 Days Qty: 14 RF: 0 Readi-Cat 2 2 % (w/v) suspension 900 ml PO ONCE Qty: 900 RF: 0 cyclobenzaprine 10 mg tablet 10 mg PO TID Qty: 10 RF: 0 naproxen [Naprosyn] 500 mg tablet 500 mg PO BID Qty: 20 RF: 0 prednisone 20 mg tablet 60 mg PO DAILY 5 Days Qty: 15 RF: 0 albuterol sulfate 90 mcg/actuation HFA aerosol inhaler 2 puff inhalation Q6H PRN (Reason: shortness of breath or wheezing) Qty: 8.5 RF: 0 azithromycin 250 mg tablet 250 mg PO DAILY 5 Days Qty: 5 RF: 0 benzonatate [Tessalon Perles] 100 mg capsule 100 mg PO TID PRN (Reason: cough) Qty: 30 RF: 0 hydrocodone-acetaminophen 5-325 mg tablet 1 tab PO Q8H PRN (Reason: pain, severe) 3 Days Qty: 9 RF: 0 lidocaine [Lidoderm] 5 % adhesive patch,medicated 1 patch topical DAILY MDD remove after 12 hours PRN (Reason: pain) Qty: 30 RF: 0 amoxicillin-pot clavulanate [Augmentin] 875-125 mg tablet 1 tab PO BID 7 Days Qty: 14 RF: 0 benzonatate [Tessalon Perles] 100 mg capsule 100 mg PO BID PRN (Reason: cough) Qty: 14 RF: 0 diclofenac sodium 75 mg tablet,delayed release (DR/EC) 75 mg PO BID RF: 0 baclofen 20 mg tablet 20 mg PO TID RF: 0 gabapentin 600 mg tablet 600 mg PO BID PRNRF: 0 lorazepam 1 mg tablet 1 mg PO DAILY PRNRF: 0 fluticasone propionate 50 mcg/actuation spray,suspension 2 spray intranasal DAILY RF: 0 metronidazole [Flagyl] 500 mg tablet 500 mg PO BID 7 Days Qty: 14 RF: 0 loratadine 10 mg capsule 10 mg PO DAILY RF: 0 paroxetine HCl [Paxil] 40 mg tablet 50 mg PO DAILY RF: 0 cyclobenzaprine 10 mg tablet 10 mg PO BEDTIME RF: 0 mirtazapine [Remeron] 15 mg tablet 15 mg PO DAILY RF: 0 metronidazole 500 mg tablet 500 mg PO BID 7 Days Qty: 14 RF: 0 Referrals: Dory Ray MD [Primary Care Provider] - 2 days
[2021-02-08 14:08] LABS: MANUAL DIFF FLAG NO
[2021-02-08 14:10] LABS: Basophils Percent Auto 0.2 % (0-2); Eosinophils Absolute Auto 0.1 X10*3/uL (0.0-0.4); Eosinophils Percent Auto 0.8 % (0-4); Hematocrit 38.1 % (37.0-47.0); Hemoglobin 12.8 g/dl (12.0-16.0); Imm Gran Abs Auto 0.04 X10*3/uL (0.00-0.03); Imm Gran Pct Auto 0.4 % (0.0-0.4); Lymphocytes Absolute Auto 2.8 X10*3/uL (1.2-4.9); Lymphocytes Percent Auto 30.5 % (20-40); Mean Corpuscular HGB Conc 33.6 g/dl (31.0-35.0); Mean Corpuscular Hemoglobin 32.5 pg (27.0-33.0); Mean Corpuscular Volume 96.7 fL (80.0-98.0); Mean Platelet Volume 9.5 fL (9.4-12.3); Monocytes Absolute Auto 0.6 X10*3/uL (0.1-1.2); Monocytes Percent Auto 6.2 % (2-11); Neutrophils Absolute Auto 5.6 x10*3/uL (2.0-8.3); Neutrophils Percent Auto 61.9 % (45-73); Platelet Count 249 X10*3/uL (160-400); Red Blood Count 3.94 X10*6/uL (4.20-5.50); Red Cell Distribution Width 12.6 % (11.0-16.0); White Blood Count 9.1 X10*3/uL (4.8-10.8)
[2021-02-08 14:24] LABS: Anion Gap 10 (12-20); Blood Urea Nitrogen 10 mg/dL (9-16); Calcium 8.8 mg/dL (8.4-10.2); Carbon Dioxide 25 mmol/L (22-29); Chloride 108 mmol/L (96-108); Creatinine Clr Calc Pharmacy 76.9; Estimated Glomerular Filt Rate > 60; Glucose Random 93 mg/dL (60-115); Potassium 3.9 mmol/L (3.3-5.1); Sodium 139 mmol/L (135-145)
[2021-02-08 14:30] LABS: Troponin-I High Sensitivity < 3.5 ng/L (<3.5-17.0)
[2021-02-08 14:48] LABS: D Dimer 224 NG/ML
--- NOTE | 2021-02-08 14:58 | PC.NURSE ---
Unlabored resp. ls cta. skin pwd. NAD. awaits swab results. states that right sided cp is worse when lying down.
[2021-02-08 15:21] VITALS: BP 129/69; PULSE 74; RESP 18; TEMP 36.8; O2SAT 98
[2021-02-08 15:21] LABS: Influenza A PCR NEGATIVE (Negative); Influenza B PCR NEGATIVE (Negative); Resp Syncy Virus RNA Qual PCR NEGATIVE (Negative); SARS COV2 PCR INHOUSE NEGATIVE (Negative)
== END 2021-02-08 16:09 | disposition home or self-care (01) ==
PROVIDERS: Emergency Provider Emergency Medicine Emergency Medical Services; PCP Internal Medicine
DX: R07.9 Chest pain, unspecified (principal); J06.9 Acute upper respiratory infection, unspecified; R05.9 Cough, unspecified; Z20.822 Contact with and (suspected) exposure to COVID-19
CPT/HCPCS: 0241U; 36415; 71045; 80048; 84484; 85025; 85379; 93005; 99283; 99284

== ENCOUNTER → 2021-02-09 14:35 | Outpatient (BNVA) | payer MEDICAID, SELFPAY | PROVIDERS: PCP Internal Medicine; Visit Provider Anesthesiology | DX: M51.36 Other intervertebral disc degeneration, lumbar region (principal); M47.816 Spondylosis without myelopathy or radiculopathy, lumbar region; G89.4 Chronic pain syndrome | CPT/HCPCS: 99202 ==

== ENCOUNTER 2021-03-11 08:47 | Outpatient (REF) | payer MEDICAID, SELFPAY ==
--- NOTE | ~2021-03-11 | CT_ITS ---
EXAMINATION: CT ABDOMEN AND PELVIS WITH CONTRAST CLINICAL INFORMATION: Left lower quadrant pain COMPARISON: Previous CT of the abdomen and pelvis March 2020 TECHNIQUE: Multidetector volumetric images were obtained from the superior aspect of the liver through the pubic symphysis following administration 85 mL of Omnipaque 350 intravenous contrast. Sagittal and coronal reformatted images were obtained on the technologist's workstation. Oral contrast: Yes This CT examination was performed using dose optimization techniques as appropriate, variously including the following: *Automated exposure control *Adjustment of mA and/or kV according to patient size (this includes techniques or standardized protocols for targeted exams where dose is matched to indication/reason for exam; i.e. extremities or head) *Use of iterative reconstruction technique DLP: 365 mGy-cm FINDINGS: LUNG BASES: There is a 3 mm left lower lobe nodule axial image 12 series 7. This is stable from previous exams. LIVER, GALLBLADDER, AND BILIARY TREE: The liver is normal in size, shape, and attenuation. No focal hepatic lesion or biliary ductal dilatation is present. The gallbladder is unremarkable with no evidence of radiopaque gallstones, gallbladder wall thickening, or obvious pericholecystic inflammatory changes. PANCREAS: Unremarkable. SPLEEN: Unremarkable. ADRENAL GLANDS: Unremarkable. KIDNEYS AND URETERS: There is a 1 cm low-attenuation lesion in the lower pole of the left kidney suggestive of a cyst. This is similar to previous exam. No imaging follow-up needed. The kidneys are otherwise unremarkable. BLADDER: Unremarkable. GASTROINTESTINAL TRACT: There is mild diverticulosis of the colon. No evidence of diverticulitis is seen. There is a large amount of stool seen in the colon questionable for constipation. The small and large bowel is otherwise unremarkable. The appendix is unremarkable. Stomach is unremarkable. ABDOMINAL WALL: No significant hernia is appreciated. LYMPH NODES: Normal. VASCULAR: Unremarkable. PELVIC VISCERA: Unremarkable OSSEOUS STRUCTURES: Unremarkable. CT/CT abdomen pelvis w con IMPRESSION: Mild diverticulosis of the colon. Question constipation. Small left renal cyst. Stable small left lower lobe pulmonary nodule. Fleischner guidelines were followed.
[2021-03-11] MEDS: iohexoL 350 MG/ML 100 ML INFUS..BTL IV (11:32)
[2021-03-11] MEDS: Barium Sulfate Oral (Vanilla) 450 ML ORAL.SUSP 900 ML PO (11:32)
== END 2021-03-11 08:48 | disposition home or self-care (01) ==
LOC: HO.CT 08:47
PROVIDERS: PCP Internal Medicine; Visit Provider Surgery
DX: R19.04 Left lower quadrant abdominal swelling, mass and lump (principal)
CPT/HCPCS: 74177; Q9967

== ENCOUNTER → 2021-03-19 09:36 | Outpatient (BNVA) | payer MEDICAID, SELFPAY | PROVIDERS: PCP Internal Medicine; Referring Provider Internal Medicine; Visit Provider Surgery | DX: R19.04 Left lower quadrant abdominal swelling, mass and lump (principal) | CPT/HCPCS: 99212 ==

== ENCOUNTER 2021-03-24 04:04 | Emergency (ER) | payer MEDICAID, SELFPAY ==
--- NOTE | ~2021-03-24 | US_ITS ---
EXAMINATION: US PELVIS CLINICAL INFORMATION: Left-sided pain. History of ovarian cysts COMPARISON: Previous CT of the abdomen and pelvis 03/11/2021 and pelvic ultrasound most recent September 2020 TECHNIQUE: Ultrasound of the pelvis is performed using both transabdominal and transvaginal transducers along with Doppler. Transvaginal imaging is performed due to inadequate visualization transabdominally. FINDINGS: Uterus: The uterus is anteverted and measures 10 x 4.4 x 5.5 cm. The double wall endometrial thickness is 18 mm. The uterus is smooth in contour and has normal myometrial echogenicity. No visible fibroid. There is a small nabothian cyst in the cervix. Adnexa: The right ovary has reportedly been removed. The left ovary is enlarged and measures 5.8 x 3.9 x 4 cm. There is a complex cyst in the left ovary measuring 3.6 x 2.7 x 3.1 cm. This demonstrates slight wall thickening and lacelike reticulations suggestive of a hemorrhagic cyst. There is an adjacent simple cyst measuring 2.5 x 2.5 x 2.4 cm. Doppler and color signal is documented to the left ovary. There is no evidence of torsion. Left ovarian cysts are new from previous exams September and March 2021. There is no fluid in the pelvis. US/US pelvic and transvaginal IMPRESSION: Slightly thickened endometrium measuring 1.8 cm. Enlarged left ovary with 2 new cysts, largest a 3.6 x 2.7 x 3.1 cm minimally complex cyst suggestive of a hemorrhagic cyst. No evidence of torsion.
[2021-03-24 04:19] VITALS: BP 110/75; PULSE 97; RESP 16; TEMP 36.9; O2SAT 97; BMI 23.6
[2021-03-24 05:01] LABS: MANUAL DIFF FLAG NO
[2021-03-24 05:06] LABS: Basophils Percent Auto 0.1 % (0-2); Eosinophils Percent Auto 0.1 % (0-4); Hematocrit 38.8 % (37.0-47.0); Hemoglobin 12.7 g/dl (12.0-16.0); Imm Gran Abs Auto 0.03 X10*3/uL (0.00-0.03); Imm Gran Pct Auto 0.4 % (0.0-0.4); Lymphocytes Absolute Auto 1.1 X10*3/uL (1.2-4.9); Lymphocytes Percent Auto 14.7 % (20-40); Mean Corpuscular HGB Conc 32.7 g/dl (31.0-35.0); Mean Corpuscular Hemoglobin 31.6 pg (27.0-33.0); Mean Corpuscular Volume 96.5 fL (80.0-98.0); Mean Platelet Volume 9.7 fL (9.4-12.3); Monocytes Absolute Auto 0.1 X10*3/uL (0.1-1.2); Monocytes Percent Auto 1.2 % (2-11); Neutrophils Absolute Auto 6.4 x10*3/uL (2.0-8.3); Neutrophils Percent Auto 83.5 % (45-73); Platelet Count 227 X10*3/uL (160-400); Red Blood Count 4.02 X10*6/uL (4.20-5.50); Red Cell Distribution Width 12.7 % (11.0-16.0); White Blood Count 7.7 X10*3/uL (4.8-10.8)
[2021-03-24 05:16] LABS: COVID-19 Test Negative (Negative); IDNOW Serial# 9DD0AD1C
[2021-03-24 05:27] LABS: Alanine Aminotransferase 30 U/L (0-31); Albumin Level 4.2 g/dL (3.5-5.0); Alkaline Phosphatase 41 U/L (39-117); Anion Gap 9 (12-20); Aspartate Amino Transferase 21 U/L (5-31); Bilirubin Total 0.3 mg/dL (0.0-1.0); Blood Urea Nitrogen 17 mg/dL (9-16); Calcium 9.4 mg/dL (8.4-10.2); Carbon Dioxide 23 mmol/L (22-29); Chloride 112 mmol/L (96-108); Creatinine Clr Calc Pharmacy 75.1; Estimated Glomerular Filt Rate > 60; Glucose Random 146 mg/dL (60-115); Potassium 4.6 mmol/L (3.3-5.1); Sodium 139 mmol/L (135-145); Total Protein 6.7 g/dL (6.5-8.0)
--- NOTE | 2021-03-24 06:23 | PC.NURSE ---
pt a&o, no sob or chest pain. pt able to get oob with a steady gait. Ua collected and sent .
[2021-03-24 06:30] LABS: Appearance Urine HAZY; Color Urine YELLOW; Glucose Urine UA NEG (NEG); Leukocyte Esterase Urine NEG (NEG); Nitrite Urine NEG (NEG); Specific Gravity - Urine 1.025 (1.005-1.025); UACC Culture Trigger NO; Urine Blood 2+ (NEG); Urine Ketones NEG (NEG); Urine Protein NEG (NEG-TRACE)
--- NOTE | 2021-03-24 06:35 | ED_ITS ---
HPI - Abdominal Pain General Chief Complaint: Abdominal Pain Stated Complaint: Left Side Pain Time Seen by Provider: 03/24/21 06:34 Source: patient Mode of arrival: ambulatory Limitations: no limitations History of Present Illness MD elicited complaint: abdominal pain Pertinent past history: none Onset (ago): day(s) (3) Pain Consistency: constant Location: LLQ Severity: moderate Quality: cramping Radiation: none Migration to: no migration Exacerbating factors: movement Relieving factors: nothing Associated symptoms: dysuria Related Data Home Medications Medication Instructions Recorded Confirmed cyclobenzaprine 10 mg tablet 10 mg PO BEDTIME 02/20/20 02/09/21 loratadine 10 mg capsule 10 mg PO DAILY 02/20/20 02/09/21 paroxetine HCl 40 mg tablet (Paxil) 50 mg PO DAILY tab 02/20/20 05/13/20 mirtazapine 15 mg tablet (Remeron) 15 mg PO DAILY 05/13/20 05/13/20 baclofen 20 mg tablet 20 mg PO TID 01/06/21 diclofenac sodium 75 mg 75 mg PO BID 01/06/21 02/09/21 tablet,delayed release fluticasone propionate 50 2 spray INTRANASAL DAILY 01/06/21 02/09/21 mcg/actuation nasal spray,suspension gabapentin 600 mg tablet 600 mg PO BID PRN 01/06/21 02/09/21 lorazepam 1 mg tablet 1 mg PO DAILY PRN 01/06/21 02/09/21 doxycycline hyclate 100 mg capsule 100 mg PO BID 02/09/21 02/09/21 hydroxyzine pamoate 25 mg capsule 0 mg PO 02/09/21 02/09/21 lactulose 10 gram/15 mL oral 10 g PO DAILY 02/09/21 02/09/21 solution methocarbamol 750 mg tablet 0 mg PO BEDTIME 02/09/21 02/09/21 norethindrone (contraceptive) 0.35 0.35 mg PO DAILY 02/09/21 02/09/21 mg tablet (Ortho Micronor) topiramate 50 mg tablet 50 mg PO BID 02/09/21 02/09/21 Previous Rx's Medication Instructions Recorded metronidazole 500 mg tablet 500 mg PO BID 7 Days #14 tab 03/05/20 (Flagyl) metronidazole 500 mg tablet 500 mg PO BID 7 Days #14 tab 01/21/21 azithromycin 250 mg tablet 250 mg PO DAILY 5 Days #5 tab 05/27/20 benzonatate 100 mg capsule 100 mg PO TID PRN #30 cap 05/27/20 (Tessalon Chay) cyclobenzaprine 10 mg tablet 10 mg PO TID #10 tab 10/26/20 naproxen 500 mg tablet (Naprosyn) 500 mg PO BID #20 tab 10/26/20 albuterol sulfate 90 mcg/actuation 2 puff INHALATION Q6H PRN #8.5 g 11/14/20 aerosol inhaler prednisone 20 mg tablet 60 mg PO DAILY 5 Days #15 tab 11/14/20 hydrocodone 5 mg-acetaminophen 325 1 tab PO Q8H PRN 3 Days #9 tab 12/08/20 mg tablet lidocaine 5 % topical patch 1 patch TOPICAL DAILY PRN #30 ea 12/08/20 (Lidoderm) MDD remove after 12 hours metronidazole 500 mg tablet 500 mg PO BID 7 Days #14 tab 01/06/21 barium sulfate 2 % (w/v) oral 900 ml PO ONCE #900 ml 01/21/21 suspension (Readi-Cat 2) amoxicillin 875 mg-potassium 1 tab PO BID 7 Days #14 tab 01/30/21 clavulanate 125 mg tablet (Augmentin) benzonatate 100 mg capsule 100 mg PO BID PRN #14 cap 01/30/21 (Tessalon Chay) tramadol 50 mg tablet 50 mg PO Q8H PRN #14 tab 03/24/21 Allergies Allergy/AdvReac Type Severity Reaction Status Date / Time dust Allergy Unknown unknown Uncoded 02/09/21 15:06 Review of Systems Review of Systems Constitutional : No Weight loss, No Fever, No Chills ENT/Mouth : No sore throat, No Rhinorrhea Eyes: No Swelling, No Redness Cardiovascular : No Chest Pain, No SOB, NoEdema Respiratory : No Cough, No Sputum, No Wheezing Gastrointestinal : no Nausea, no Vomiting, no Diarrhea, positive abdominal Pain, No Hematochezia, No Melena Genitourinary : pos Dysuria, pos Urinary Frequency, No Hematuria, No Urgency Musculoskeletal : No joint pain, No Myalgias, No Joint Swelling Skin : No Skin Lesions, No rash Neuro : No Weakness, No Numbness, No Dizziness, No Headache Psych : No Anxiety/Panic, No Depression Heme/Lymph: No Bruising, No Lymphadenopathy Endocrine : No Polyuria, No Polydipsia All other systems reviewed and are negative. Physical Exam Vital Signs: Vital Signs: Last Vital Signs Temp 98.1 F 03/24/21 07:44 Pulse 78 03/24/21 07:44 Resp 16 03/24/21 07:44 BP 98/57 L 03/24/21 07:44 Pulse Ox 97 03/24/21 07:44 BMI result Body Mass Index 23.6 Appearance: Alert. Oriented X3. No acute distress. Eyes: Pupils equal, round and reactive to light. ENT: Pharynx normal. Neck: Normal inspection. Neck supple. CVS: Normal heart rate and rhythm. Pulses normal. Respiratory: No respiratory distress. Breath sounds normal. Abdomen: Soft and very mild L pelvic lower ttp no rebound or guarding no mass Skin: Skin warm and dry. Normal skin color. Normal skin turgor. Extremities: No lower extremity edema. No calf ttp Neuro: Oriented X 3. No motor deficit. No sensory deficit. Course Course Course Narrative: chronic hematuria stable for DC at this time MDM - Abdominal Pain MDM Narrative Medical decision making narrative: 45 yo female with hx of R ovarian cysts here with some dysuria and very low L pelvic pain no mass felt no other GI symptoms such as n/v/d no fevers not toxic will obtain UA and pelvic studies to evaluate for ovarian cyst. Dispo per results and findings. Lab Data Result diagrams: 03/24/21 04:55 03/24/21 04:55 Labs: Lab Results 03/24/21 03/24/21 03/24/21 Range/Units 04:55 04:55 04:56 WBC 7.7 (4.8-10.8) X10*3/uL RBC 4.02 L (4.20-5.50) X10*6/uL Hgb 12.7 (12.0-16.0) g/dl Hct 38.8 (37.0-47.0) % MCV 96.5 (80.0-98.0) fL MCH 31.6 (27.0-33.0) pg MCHC 32.7 (31.0-35.0) g/dl RDW 12.7 (11.0-16.0) % Plt Count 227 (160-400) X10*3/uL MPV 9.7 (9.4-12.3) fL Immature Gran % (Auto) 0.4 (0.0-0.4) % Neut % (Auto) 83.5 H (45-73) % Lymph % (Auto) 14.7 L (20-40) % Putnam % (Auto) 1.2 L (2-11) % Eos % (Auto) 0.1 (0-4) % Baso % (Auto) 0.1 (0-2) % Lymph # (Auto) 1.1 L (1.2-4.9) X10*3/uL [place] # (Auto) 0.1 (0.1-1.2) X10*3/uL Eos # (Auto) 0.0 (0.0-0.4) X10*3/uL Baso # (Auto) 0.0 (0.0-0.2) X10*3/uL Abs Immat Gran (auto) 0.03 (0.00-0.03) X10*3/uL Absolute Neuts (auto) 6.4 (2.0-8.3) x10*3/uL Absolute Nucleated RBC 0.000 (0.0-0.012) X10*3/uL Nucleated RBC % (auto) 0.0 (0.0-0.2) /100WBC Sodium 139 (135-145) mmol/L Potassium 4.6 (3.3-5.1) mmol/L Chloride 112 H (96-108) mmol/L Carbon Dioxide 23 (22-29) mmol/L Anion Gap 9 L (12-20) BUN 17 H (9-16) mg/dL Creatinine 0.80 (0.5-1.4) mg/dL Estim Creat Clear Calc 75.1 Estimated GFR > 60 Random Glucose 146 H (60-115) mg/dL Calcium 9.4 D (8.4-10.2) mg/dL Total Bilirubin 0.3 (0.0-1.0) mg/dL AST 21 D (5-31) U/L ALT 30 (0-31) U/L Alkaline Phosphatase 41 (39-117) U/L Total Protein 6.7 (6.5-8.0) g/dL Albumin 4.2 (3.5-5.0) g/dL Lipase 44 (8-78) U/L Urine Color Urine Appearance Urine pH (5.0-8.0) Ur Specific [place] (1.005-1.025) Urine Protein (NEG-TRACE) MG/DL Urine Glucose (UA) (NEG) MG/DL Urine Ketones (NEG) MG/DL Urine Blood (NEG) Urine Nitrite (NEG) Ur Leukocyte Esterase (NEG) Urine RBC (0) /HPF Urine WBC (0-4) /HPF Ur Squamous Epith Cells /LPF Amorphous Sediment /LPF Urine Bacteria /LPF COVID-19 (VAL[facility]IN) Negative (Negative) COVID-19 Clin Com See Note 03/24/21 Range/Units 06:24 WBC (4.8-10.8) X10*3/uL RBC (4.20-5.50) X10*6/uL Hgb (12.0-16.0) g/dl Hct (37.0-47.0) % MCV (80.0-98.0) fL MCH (27.0-33.0) pg MCHC (31.0-35.0) g/dl RDW (11.0-16.0) % Plt Count (160-400) X10*3/uL MPV (9.4-12.3) fL Immature Gran % (Auto) (0.0-0.4) % Neut % (Auto) (45-73) % Lymph % (Auto) (20-40) % [place]nam % (Auto) (2-11) % Eos % (Auto) (0-4) % Baso % (Auto) (0-2) % Lymph # (Auto) (1.2-4.9) X10*3/uL [place] # (Auto) (0.1-1.2) X10*3/uL Eos # (Auto) (0.0-0.4) X10*3/uL Baso # (Auto) (0.0-0.2) X10*3/uL Abs Immat Gran (auto) (0.00-0.03) X10*3/uL Absolute Neuts (auto) (2.0-8.3) x10*3/uL Absolute Nucleated RBC (0.0-0.012) X10*3/uL Nucleated RBC % (auto) (0.0-0.2) /100WBC Sodium (135-145) mmol/L Potassium (3.3-5.1) mmol/L Chloride (96-108) mmol/L Carbon Dioxide (22-29) mmol/L Anion Gap (12-20) BUN (9-16) mg/dL Creatinine (0.5-1.4) mg/dL Estim Creat Clear Calc Estimated GFR Random Glucose (60-115) mg/dL Calcium (8.4-10.2) mg/dL Total Bilirubin (0.0-1.0) mg/dL AST (5-31) U/L ALT (0-31) U/L Alkaline Phosphatase (39-117) U/L Total Protein (6.5-8.0) g/dL Albumin (3.5-5.0) g/dL Lipase (8-78) U/L Urine Color YELLOW Urine Appearance HAZY Urine pH 7.0 (5.0-8.0) Ur Specific [place] 1.025 (1.005-1.025) Urine Protein NEG (NEG-TRACE) MG/DL Urine Glucose (UA) NEG (NEG) MG/DL Urine Ketones NEG (NEG) MG/DL Urine Blood 2+ H (NEG) Urine Nitrite NEG (NEG) Ur Leukocyte Esterase NEG (NEG) Urine RBC 5-9 H (0) /HPF Urine WBC 0-2 (0-4) /HPF Ur Squamous Epith Cells TRACE /LPF Amorphous Sediment 2+ /LPF Urine Bacteria NONE /LPF COVID-19 ([facility]ENTIN) (Negative) COVID-19 Clin Com Discharge Plan Discharge Clinical Impression: Complex ovarian cyst Patient Disposition: Home, Self-Care Instructions: Ovarian Cyst (ED) Additional Instructions: return to ED for any worsening symptoms or concerns Slightly thickened endometrium measuring 1.8 cm. Enlarged left ovary with 2 new cysts, largest a 3.6 x 2.7 x 3.1 cm minimally complex cyst suggestive of a hemorrhagic cyst. No evidence of torsion. REPEAT ULTRASOUND IN 4 WEEKS Prescriptions: New tramadol 50 mg tablet 50 mg PO Q8H PRN (Reason: pain) Qty: 14 RF: 0 No Action metronidazole 500 mg tablet 500 mg PO BID 7 Days Qty: 14 RF: 0 Readi-Cat 2 2 % (w/v) suspension 900 ml PO ONCE Qty: 900 RF: 0 cyclobenzaprine 10 mg tablet 10 mg PO TID Qty: 10 RF: 0 naproxen [Naprosyn] 500 mg tablet 500 mg PO BID Qty: 20 RF: 0 prednisone 20 mg tablet 60 mg PO DAILY 5 Days Qty: 15 RF: 0 albuterol sulfate 90 mcg/actuation HFA aerosol inhaler 2 puff inhalation Q6H PRN (Reason: shortness of breath or wheezing) Qty: 8.5 RF: 0 azithromycin 250 mg tablet 250 mg PO DAILY 5 Days Qty: 5 RF: 0 benzonatate [Tessalon Perles] 100 mg capsule 100 mg PO TID PRN (Reason: cough) Qty: 30 RF: 0 hydrocodone-acetaminophen 5-325 mg tablet 1 tab PO Q8H PRN (Reason: pain, severe) 3 Days Qty: 9 RF: 0 lidocaine [Lidoderm] 5 % adhesive patch,medicated 1 patch topical DAILY MDD remove after 12 hours PRN (Reason: pain) Qty: 30 RF: 0 amoxicillin-pot clavulanate [Augmentin] 875-125 mg tablet 1 tab PO BID 7 Days Qty: 14 RF: 0 benzonatate [Tessalon Perles] 100 mg capsule 100 mg PO BID PRN (Reason: cough) Qty: 14 RF: 0 diclofenac sodium 75 mg tablet,delayed release (DR/EC) 75 mg PO BID RF: 0 baclofen 20 mg tablet 20 mg PO TID RF: 0 gabapentin 600 mg tablet 600 mg PO BID PRNRF: 0 lorazepam 1 mg tablet 1 mg PO DAILY PRNRF: 0 fluticasone propionate 50 mcg/actuation spray,suspension 2 spray intranasal DAILY RF: 0 metronidazole [Flagyl] 500 mg tablet 500 mg PO BID 7 Days Qty: 14 RF: 0 loratadine 10 mg capsule 10 mg PO DAILY RF: 0 paroxetine HCl [Paxil] 40 mg tablet 50 mg PO DAILY RF: 0 cyclobenzaprine 10 mg tablet 10 mg PO BEDTIME RF: 0 mirtazapine [Remeron] 15 mg tablet 15 mg PO DAILY RF: 0 metronidazole 500 mg tablet 500 mg PO BID 7 Days Qty: 14 RF: 0 norethindrone (contraceptive) [Ortho Micronor] 0.35 mg tablet 0.35 mg PO DAILY RF: 0 lactulose 10 gram/15 mL solution 10 g PO DAILY RF: 0 doxycycline hyclate 100 mg capsule 100 mg PO BID RF: 0 hydroxyzine pamoate 25 mg capsule 0 mg PO RF: 0 topiramate 50 mg tablet 50 mg PO BID RF: 0 methocarbamol 750 mg tablet 0 mg PO BEDTIME RF: 0 Referrals: Macho Sarkar MD [Physician] - 2 weeks Stand Alone Forms: Work/School Release [facility] Past Medical History Medical History Arthritis Asthma Chronic pain syndrome COVID-19 Depression Disc degeneration, lumbar Fibromyalgia Migraines Spondylosis of lumbar spine Surgical History H/O LEEP History of bilateral tubal ligation History of carpal tunnel release History of salpingo-oophorectomy Family History Family History Sister History of breast cancer, Onset Age: 52 Brother History of bone cancer History of blood disorder History of brain cancer Paternal Aunt History of cancer of uterus Social History Social History Alcohol intake: never Patient Tobacco Use Status: Current someday Tobacco user Use of substances other than those prescribed or required for medical reasons: No Advance Directives: No Advance Directives Information Provided: No Sexual orientation: Straight/Heterosexual Gender identity: Female
--- NOTE | 2021-03-24 07:05 | PC.NURSE ---
pt reports having had a bm no straining. Pt reports passing gas. denies any n/v
[2021-03-24 07:11] LABS: Lipase 44 U/L (8-78)
[2021-03-24 07:27] LABS: WBC Urine 0-2 /HPF (0-4)
[2021-03-24 07:28] LABS: Amorphous Sediment Urine 2+ /LPF; Squamous Epithelial Cell Urine TRACE /LPF
[2021-03-24 07:44] VITALS: BP 98/57; PULSE 78; RESP 16; TEMP 36.7; O2SAT 97
[2021-03-24] MEDS: traMADoL HCL 50 MG TABLET PO (07:51)
== END 2021-03-24 09:25 | disposition home or self-care (01) ==
PROVIDERS: Emergency Provider Emergency Medicine; PCP Internal Medicine
DX: N83.292 Other ovarian cyst, left side (principal); J45.909 Unspecified asthma, uncomplicated; Z20.822 Contact with and (suspected) exposure to COVID-19
CPT/HCPCS: 36415; 76830; 76856; 80053; 81001; 83690; 85025; 87635; 99284; 99285

== ENCOUNTER 2021-05-11 17:52 | Emergency (ER) | payer MEDICAID, SELFPAY ==
--- NOTE | 2021-05-11 | ECG_ITS ---
Test Reason : CHEST PAIN Blood Pressure : / mmHG Vent. Rate : 080 BPM Atrial Rate : 080 BPM P-R Int : 138 ms QRS Dur : 078 ms QT Int : 360 ms P-R-T Axes : 061 049 044 degrees QTc Int : 415 ms Normal sinus rhythm Normal ECG When compared with ECG of 08-FEB-2021 14:02, No significant change was found Referred By: Generic ED Physician Electronically Signed By:Sid Walter
--- NOTE | ~2021-05-11 | US_ITS ---
EXAMINATION: US VENOUS ULTRASOUND WITH DOPPLER LOWER EXTREMITY, LEFT CLINICAL INFORMATION: Left lower extremity pain COMPARISON: None TECHNIQUE: Ultrasound of the deep veins is performed from the hip to the calf with compression sonography and color and pulse Doppler assessment. Spectral analysis with color-flow imaging is performed. FINDINGS: There is normal venous compression and respiratory variation and augmented flow. The visualized common femoral vein, superficial femoral vein, profunda femoral vein, popliteal vein, and the trifurcation region shows no evidence of deep venous thrombosis. There is no significant popliteal fossa cyst. If the patient's symptoms persist, followup ultrasound in 5 days 7 days might be of value to exclude proximal propagation from a non-visualized calf vein. US/US venous duplex LE LT IMPRESSION: No DVT demonstrated in the left lower extremity.
--- NOTE | ~2021-05-11 | XR_ITS ---
EXAMINATION: XR CHEST CLINICAL INFORMATION: Chest pain and shortness of breath COMPARISON: 02/08/2021 TECHNIQUE: Frontal view of the chest was obtained. FINDINGS: No significant abnormality is noted involving the heart, lungs, mediastinum, bony thorax or soft tissues. XR/XR chest 1V IMPRESSION: Unremarkable examination.
[2021-05-11 18:10] VITALS: BP 116/75; PULSE 84; RESP 18; TEMP 36.7; O2SAT 99; BMI 23.6
--- NOTE | 2021-05-11 20:17 | ED.CHESTPAIN ---
HPI - Chest Pain General Chief Complaint: Chest Pain Stated Complaint: knee pain, chest pain Time Seen by Provider: 05/11/21 20:17 Source: patient Mode of arrival: ambulatory Limitations: no limitations History of Present Illness HPI narrative: Patient with no known coronary artery disease complaining of pain in the chest for last 1 week patient does have history of musculoskeletal chronic pain syndrome on pain medications also complaining of pain in the left popliteal area for last few days no calf pain has slight swelling of the popliteal area Related Data Home Medications Medication Instructions Recorded Confirmed loratadine 10 mg capsule 10 mg PO DAILY 02/20/20 04/17/21 paroxetine HCl 40 mg tablet (Paxil) 50 mg PO DAILY tab 02/20/20 04/17/21 mirtazapine 15 mg tablet (Remeron) 15 mg PO DAILY 05/13/20 04/17/21 baclofen 20 mg tablet 20 mg PO TID 01/06/21 04/17/21 diclofenac sodium 75 mg 75 mg PO BID 01/06/21 04/17/21 tablet,delayed release fluticasone propionate 50 2 spray INTRANASAL DAILY 01/06/21 04/17/21 mcg/actuation nasal spray,suspension gabapentin 600 mg tablet 600 mg PO BID PRN 01/06/21 04/17/21 lorazepam 1 mg tablet 1 mg PO DAILY PRN 01/06/21 04/17/21 doxycycline hyclate 100 mg capsule 100 mg PO BID 02/09/21 04/17/21 hydroxyzine pamoate 25 mg capsule 0 mg PO 02/09/21 02/09/21 lactulose 10 gram/15 mL oral 10 g PO DAILY 02/09/21 04/17/21 solution methocarbamol 750 mg tablet 750 mg PO BEDTIME 02/09/21 02/09/21 norethindrone (contraceptive) 0.35 0.35 mg PO DAILY 02/09/21 04/17/21 mg tablet (Ortho Micronor) topiramate 50 mg tablet 50 mg PO BID 02/09/21 02/09/21 Previous Rx's Medication Instructions Recorded cyclobenzaprine 10 mg tablet 10 mg PO TID #10 tab 10/26/20 naproxen 500 mg tablet (Naprosyn) 500 mg PO BID #20 tab 10/26/20 albuterol sulfate 90 mcg/actuation 2 puff INHALATION Q6H PRN #8.5 g 11/14/20 aerosol inhaler prednisone 20 mg tablet 60 mg PO DAILY 5 Days #15 tab 11/14/20 lidocaine 5 % topical patch 1 patch TOPICAL DAILY PRN #30 ea 12/08/20 (Lidoderm) MDD remove after 12 hours barium sulfate 2 % (w/v) oral 900 ml PO ONCE #900 ml 01/21/21 suspension (Readi-Cat 2) benzonatate 100 mg capsule 100 mg PO BID PRN #14 cap 01/30/21 (Tessalon Perles) tramadol 50 mg tablet 50 mg PO Q8H PRN #14 tab 03/24/21 Allergies Allergy/AdvReac Type Severity Reaction Status Date / Time dust Allergy Unknown unknown Uncoded 05/11/21 18:10 Review of Systems Review of Systems: Yes all other systems are reviewed and are negative [facility] Past Medical History Medical History Anxiety and depression Arthritis Asthma Chronic pain syndrome COVID-19 Depression Disc degeneration, lumbar Fibromyalgia Migraines Seasonal allergies Spondylosis of lumbar spine Surgical History H/O LEEP History of bilateral tubal ligation History of carpal tunnel release History of salpingo-oophorectomy Hx of colonoscopy Family History Family History Sister History of breast cancer, Onset Age: 52 Brother History of bone cancer History of blood disorder History of brain cancer Paternal Aunt History of cancer of uterus Social History Social History Alcohol intake: never Patient Tobacco Use Status: Current someday Tobacco user Advance Directives: No Advance Directives Information Provided: Yes Patient : No Sexual orientation: Straight/Heterosexual Gender identity: Female Physical Exam Vital Signs: Vital Signs: Last Vital Signs Temp 98.1 F 05/11/21 18:10 Pulse 84 05/11/21 18:10 Resp 18 05/11/21 18:10 BP 116/75 05/11/21 18:10 Pulse Ox 99 05/11/21 18:10 BMI result Body Mass Index 23.6 Appearance: Alert. Oriented X3. No acute distress. ENT: Pharynx normal. Oral Mucosa moist Neck: Normal inspection. Neck supple. CVS: Normal heart rate and rhythm. Pulses normal. Respiratory: No respiratory distress. Equal air entry bilateral, no wheezing/rales/rhonchi left chest wall tenderness++ Abdomen: Soft and nontender. Bowel sounds are present, no mass palpable, no CVA tenderness Skin: Skin warm and dry. Normal skin color. Normal skin turgor. Extremities: No lower extremity edema. No calf tenderness slight tenderness in popliteal area on the left side with fullness,Consuelo sign negative Neuro: Oriented X 3. MDM - Chest Pain MDM Narrative Medical decision making narrative: Patient atypical chest pain for 1 with negative troponin Doppler of the left leg is negative for popliteal cyst or DVT will discharge patient home on pain management Lab Data Attestation: I reviewed the patient's lab results. Result diagrams: 05/11/21 20:52 05/11/21 20:52 Labs: Lab Results 05/11/21 05/11/21 05/11/21 Range/Units 20:52 20:52 20:52 WBC 6.2 (4.8-10.8) X10*3/uL RBC 3.55 L (4.20-5.50) X10*6/uL Hgb 11.3 L (12.0-16.0) g/dl Hct 34.4 L (37.0-47.0) % MCV 96.9 (80.0-98.0) fL MCH 31.8 (27.0-33.0) pg MCHC 32.8 (31.0-35.0) g/dl RDW 13.1 (11.0-16.0) % Plt Count 216 (160-400) X10*3/uL MPV 9.4 (9.4-12.3) fL Immature Gran % (Auto) 0.3 (0.0-0.4) % Neut % (Auto) 45.6 (45-73) % Lymph % (Auto) 45.9 H (20-40) % [place] % (Auto) 5.8 (2-11) % Eos % (Auto) 2.1 (0-4) % Baso % (Auto) 0.3 (0-2) % Lymph # (Auto) 2.9 (1.2-4.9) X10*3/uL [place] # (Auto) 0.4 (0.1-1.2) X10*3/uL Eos # (Auto) 0.1 (0.0-0.4) X10*3/uL Baso # (Auto) 0.0 (0.0-0.2) X10*3/uL Abs Immat Gran (auto) 0.02 (0.00-0.03) X10*3/uL Absolute Neuts (auto) 2.8 (2.0-8.3) x10*3/uL Absolute Nucleated RBC 0.000 (0.0-0.012) X10*3/uL Nucleated RBC % (auto) 0.0 (0.0-0.2) /100WBC D-Dimer High Sensitivty NG/ML Sodium 138 (135-145) mmol/L Potassium 3.7 (3.3-5.1) mmol/L Chloride 108 (96-108) mmol/L Carbon Dioxide 28 (22-29) mmol/L Anion Gap 6 L (12-20) BUN 10 (9-16) mg/dL Creatinine 0.70 (0.5-1.4) mg/dL Estim Creat Clear Calc 85.8 Estimated GFR > 60 Random Glucose 99 (60-115) mg/dL Calcium 8.9 (8.4-10.2) mg/dL Troponin I High Sens < 3.5 (<3.5-17.0) ng/L 05/11/21 Range/Units 20:52 WBC (4.8-10.8) X10*3/uL RBC (4.20-5.50) X10*6/uL Hgb (12.0-16.0) g/dl Hct (37.0-47.0) % MCV (80.0-98.0) fL MCH (27.0-33.0) pg MCHC (31.0-35.0) g/dl RDW (11.0-16.0) % Plt Count (160-400) X10*3/uL MPV (9.4-12.3) fL Immature Gran % (Auto) (0.0-0.4) % Neut % (Auto) (45-73) % Lymph % (Auto) (20-40) % [place] % (Auto) (2-11) % Eos % (Auto) (0-4) % Baso % (Auto) (0-2) % Lymph # (Auto) (1.2-4.9) X10*3/uL [place] # (Auto) (0.1-1.2) X10*3/uL Eos # (Auto) (0.0-0.4) X10*3/uL Baso # (Auto) (0.0-0.2) X10*3/uL Abs Immat Gran (auto) (0.00-0.03) X10*3/uL Absolute Neuts (auto) (2.0-8.3) x10*3/uL Absolute Nucleated RBC (0.0-0.012) X10*3/uL Nucleated RBC % (auto) (0.0-0.2) /100WBC D-Dimer High Sensitivty 287 NG/ML Sodium (135-145) mmol/L Potassium (3.3-5.1) mmol/L Chloride (96-108) mmol/L Carbon Dioxide (22-29) mmol/L Anion Gap (12-20) BUN (9-16) mg/dL Creatinine (0.5-1.4) mg/dL Estim Creat Clear Calc Estimated GFR Random Glucose (60-115) mg/dL Calcium (8.4-10.2) mg/dL Troponin I High Sens (<3.5-17.0) ng/L ECG Data ECG #1: Interpretation: Normal sinus rhythm heart rate 80 beats per minute normal intervals normal axis no acute ST wave changes no acute ischemia impression normal EKG Discharge Plan Discharge Clinical Impression: Atypical chest pain, Musculoskeletal leg pain Patient Disposition: Home, Self-Care Instructions: Musculoskeletal Pain (ED), Chest Wall Pain (ED) Additional Instructions: Take pain medication as prescribed by her PCP No blood clot was seen in your left leg Prescriptions: No Action Readi-Cat 2 2 % (w/v) suspension 900 ml PO ONCE Qty: 900 0RF cyclobenzaprine 10 mg tablet 10 mg PO TID Qty: 10 0RF naproxen [Naprosyn] 500 mg tablet 500 mg PO BID Qty: 20 0RF prednisone 20 mg tablet 60 mg PO DAILY 5 Days Qty: 15 0RF albuterol sulfate 90 mcg/actuation HFA aerosol inhaler 2 puff inhalation Q6H PRN (Reason: shortness of breath or wheezing) Qty: 8.5 0RF lidocaine [Lidoderm] 5 % adhesive patch,medicated 1 patch topical DAILY MDD remove after 12 hours PRN (Reason: pain) Qty: 30 0RF Rx Instructions: leave on most painful area for up to 12 hrs benzonatate [Tessalon Perles] 100 mg capsule 100 mg PO BID PRN (Reason: cough) Qty: 14 0RF tramadol 50 mg tablet 50 mg PO Q8H PRN (Reason: pain) Qty: 14 0RF diclofenac sodium 75 mg tablet,delayed release (DR/EC) 75 mg PO BID 0RF baclofen 20 mg tablet 20 mg PO TID 0RF gabapentin 600 mg tablet 600 mg PO BID PRN (Reason: Pain) 0RF lorazepam 1 mg tablet 1 mg PO DAILY PRN (Reason: Anxiety) 0RF fluticasone propionate 50 mcg/actuation spray,suspension 2 spray intranasal DAILY 0RF loratadine 10 mg capsule 10 mg PO DAILY 0RF paroxetine HCl [Paxil] 40 mg tablet 50 mg PO DAILY 0RF mirtazapine [Remeron] 15 mg tablet 15 mg PO DAILY 0RF norethindrone (contraceptive) [Ortho Micronor] 0.35 mg tablet 0.35 mg PO DAILY 0RF lactulose 10 gram/15 mL solution 10 g PO DAILY 0RF doxycycline hyclate 100 mg capsule 100 mg PO BID 0RF hydroxyzine pamoate 25 mg capsule 0 mg PO 0RF topiramate 50 mg tablet 50 mg PO BID 0RF methocarbamol 750 mg tablet 750 mg PO BEDTIME 0RF
[2021-05-11 20:56] LABS: MANUAL DIFF FLAG NO
[2021-05-11 20:57] LABS: Basophils Percent Auto 0.3 % (0-2); Eosinophils Absolute Auto 0.1 X10*3/uL (0.0-0.4); Eosinophils Percent Auto 2.1 % (0-4); Hematocrit 34.4 % (37.0-47.0); Hemoglobin 11.3 g/dl (12.0-16.0); Imm Gran Abs Auto 0.02 X10*3/uL (0.00-0.03); Imm Gran Pct Auto 0.3 % (0.0-0.4); Lymphocytes Absolute Auto 2.9 X10*3/uL (1.2-4.9); Lymphocytes Percent Auto 45.9 % (20-40); Mean Corpuscular HGB Conc 32.8 g/dl (31.0-35.0); Mean Corpuscular Hemoglobin 31.8 pg (27.0-33.0); Mean Corpuscular Volume 96.9 fL (80.0-98.0); Mean Platelet Volume 9.4 fL (9.4-12.3); Monocytes Absolute Auto 0.4 X10*3/uL (0.1-1.2); Monocytes Percent Auto 5.8 % (2-11); Neutrophils Absolute Auto 2.8 x10*3/uL (2.0-8.3); Neutrophils Percent Auto 45.6 % (45-73); Platelet Count 216 X10*3/uL (160-400); Red Blood Count 3.55 X10*6/uL (4.20-5.50); Red Cell Distribution Width 13.1 % (11.0-16.0); White Blood Count 6.2 X10*3/uL (4.8-10.8)
[2021-05-11 21:18] LABS: D Dimer High Sensitivity 287 NG/ML
[2021-05-11 21:22] LABS: Troponin-I High Sensitivity < 3.5 ng/L (<3.5-17.0)
[2021-05-11 21:24] LABS: Anion Gap 6 (12-20); Blood Urea Nitrogen 10 mg/dL (9-16); Calcium 8.9 mg/dL (8.4-10.2); Carbon Dioxide 28 mmol/L (22-29); Chloride 108 mmol/L (96-108); Creatinine Clr Calc Pharmacy 85.8; Estimated Glomerular Filt Rate > 60; Glucose Random 99 mg/dL (60-115); Potassium 3.7 mmol/L (3.3-5.1); Sodium 138 mmol/L (135-145)
== END 2021-05-11 23:09 | disposition home or self-care (01) ==
PROVIDERS: Emergency Provider Internal Medicine; PCP Internal Medicine
DX: R07.89 Other chest pain (principal); M79.605 Pain in left leg; M79.18 Myalgia, other site; F17.200 Nicotine dependence, unspecified, uncomplicated; G89.29 Other chronic pain; Z79.891 Long term (current) use of opiate analgesic
CPT/HCPCS: 36415; 71045; 80048; 84484; 85025; 85379; 93005; 93971; 99283; 99284

== ENCOUNTER 2021-05-12 10:00 | Outpatient (RCR) | payer MEDICAID, SELFPAY | END 2021-05-12 10:30 | disposition home or self-care (01) | LOC: HO.OT 10:00 | PROVIDERS: PCP Internal Medicine; Visit Provider Internal Medicine | DX: M79.642 Pain in left hand (principal) | CPT/HCPCS: 97018; 97035; 97110; 97165 ==

== ENCOUNTER 2021-05-22 08:18 | Outpatient (REF) | payer MEDICAID, SELFPAY ==
--- NOTE | ~2021-05-22 | XR_ITS ---
EXAMINATION: XR KNEE, LEFT CLINICAL INFORMATION: Left knee pain COMPARISON: None TECHNIQUE: Four views of the left knee. FINDINGS: Bones and soft tissues are normal. No fracture or joint effusion. Alignment is anatomic. Joint spaces are well maintained. No abnormal soft tissue calcification. XR/XR knee LT 4V IMPRESSION: No bony abnormality of the left knee identified.
== END 2021-05-22 08:19 | disposition home or self-care (01) ==
LOC: HO.XRAY 08:18
PROVIDERS: PCP Internal Medicine; Visit Provider Internal Medicine
DX: M25.562 Pain in left knee (principal)
CPT/HCPCS: 73564

== ENCOUNTER 2021-07-19 07:37 | Emergency (ER) | payer MEDICAID, SELFPAY ==
--- NOTE | ~2021-07-19 | XR_ITS ---
EXAMINATION: XR CHEST CLINICAL INFORMATION: Cough COMPARISON: May 11, 2021 TECHNIQUE: AP portable view of the chest was obtained. FINDINGS: No significant abnormality is noted involving the heart, lungs, mediastinum, bony thorax or soft tissues. XR/XR chest 1V IMPRESSION: No acute disease.
[2021-07-19 07:51] VITALS: BP 125/70; PULSE 80; RESP 22; TEMP 36.2; O2SAT 99; BMI 22.3
[2021-07-19 08:00] VITALS: BP 121/72; PULSE 90; RESP 16; TEMP 36.8; O2SAT 100
--- NOTE | 2021-07-19 08:22 | ED_ITS ---
HPI - URI/Sore Throat General Chief Complaint: Upper Respiratory Symptoms Stated Complaint: Asthma Time Seen by Provider: 07/19/21 08:20 Source: patient Mode of arrival: ambulatory Limitations: no limitations History of Present Illness HPI Narrative: 45-year-old female came in for evaluation of upper respiratory symptoms. This is a 45-year-old female, smoker and history of asthma and COPD, patient's daughter just flew from [place] complaining of coughing and runny nose and was tested positive for flu at her doctor. Patient has been complaining of generalized body ache and coughing with no production of sputum, subjective low-grade fever. Patient do not have albuterol at home. Related Data Home Medications Medication Instructions Recorded Confirmed loratadine 10 mg capsule 10 mg PO DAILY 02/20/20 04/17/21 paroxetine HCl 40 mg tablet (Paxil) 50 mg PO DAILY tab 02/20/20 04/17/21 mirtazapine 15 mg tablet (Remeron) 15 mg PO DAILY 05/13/20 04/17/21 baclofen 20 mg tablet 20 mg PO TID 01/06/21 04/17/21 diclofenac sodium 75 mg 75 mg PO BID 01/06/21 04/17/21 tablet,delayed release fluticasone propionate 50 2 spray INTRANASAL DAILY 01/06/21 04/17/21 mcg/actuation nasal spray,suspension gabapentin 600 mg tablet 600 mg PO BID PRN 01/06/21 04/17/21 lorazepam 1 mg tablet 1 mg PO DAILY PRN 01/06/21 04/17/21 doxycycline hyclate 100 mg capsule 100 mg PO BID 02/09/21 04/17/21 hydroxyzine pamoate 25 mg capsule 0 mg PO 02/09/21 02/09/21 lactulose 10 gram/15 mL oral 10 g PO DAILY 02/09/21 04/17/21 solution methocarbamol 750 mg tablet 750 mg PO BEDTIME 02/09/21 02/09/21 norethindrone (contraceptive) 0.35 0.35 mg PO DAILY 02/09/21 04/17/21 mg tablet (Ortho Micronor) topiramate 50 mg tablet 50 mg PO BID 02/09/21 02/09/21 Previous Rx's Medication Instructions Recorded cyclobenzaprine 10 mg tablet 10 mg PO TID #10 tab 10/26/20 naproxen 500 mg tablet (Naprosyn) 500 mg PO BID #20 tab 10/26/20 albuterol sulfate 90 mcg/actuation 2 puff INHALATION Q6H PRN #8.5 g 11/14/20 aerosol inhaler prednisone 20 mg tablet 60 mg PO DAILY 5 Days #15 tab 11/14/20 lidocaine 5 % topical patch 1 patch TOPICAL DAILY PRN #30 ea 12/08/20 (Lidoderm) MDD remove after 12 hours barium sulfate 2 % (w/v) oral 900 ml PO ONCE #900 ml 01/21/21 suspension (Readi-Cat 2) benzonatate 100 mg capsule 100 mg PO BID PRN #14 cap 01/30/21 (Tessalon Perles) tramadol 50 mg tablet 50 mg PO Q8H PRN #14 tab 03/24/21 albuterol sulfate 90 mcg/actuation 1 inh INHALATION QID PRN #6.7 g 07/19/21 aerosol inhaler oseltamivir 75 mg capsule (Tamiflu) 75 mg PO BID 5 Days #10 cap 07/19/21 prednisone 20 mg tablet 20 mg PO BID #10 tab 07/19/21 Allergies Allergy/AdvReac Type Severity Reaction Status Date / Time dust Allergy Mild unknown Uncoded 07/19/21 07:51 Review of Systems Review of Systems: All other systems are reviewed and are negative Constitutional: Reports as per HPI and Reports no additional constitutional complaints Eyes: Reports as per HPI and Reports no additional eye complaints Reports system reviewed and no additional complaints, except as documented Cardiovascular: Reports as per HPI and Reports no additional cardiovascular complaints Respiratory: Reports as per HPI and Reports no additional respiratory complaints Gastrointestinal: Reports as per HPI and Reports no additional gastrointestinal complaints Genitourinary: Reports no additional female genitourinary complaints Musculoskeletal: Reports no additional musculoskeletal complaints Skin/Breast: Reports system reviewed and no additional complaints, except as do cu Psychiatric: Reports no additional psychiatric complaints Endocrine: Reports no additional endocrine complaints Hematologic/Lymphatic: Reports no additional hematologic/lymphatic complaints Allergic/Immunologic: Reports no additional allergic/immunologic complaints Reports system reviewed and no additional complaints, except as documented and Reports Abnormal speech present [facility] Past Medical History Medical History Anxiety and depression Arthritis Asthma Chronic pain syndrome COVID-19 Depression Disc degeneration, lumbar Fibromyalgia Migraines Seasonal allergies Spondylosis of lumbar spine Surgical History H/O LEEP History of bilateral tubal ligation History of carpal tunnel release History of salpingo-oophorectomy Hx of colonoscopy Family History Family History Sister History of breast cancer, Onset Age: 52 Brother History of bone cancer History of blood disorder History of brain cancer Paternal Aunt History of cancer of uterus Social History Social History Alcohol intake: never Patient Tobacco Use Status: Current someday Tobacco user Advance Directives: No Advance Directives Information Provided: No Patient : No Sexual orientation: Straight/Heterosexual Gender identity: Female Physical Exam Vital Signs: Vital Signs: Last Vital Signs Temp 97.2 F 07/19/21 07:51 Pulse 77 07/19/21 08:31 Resp 22 H 07/19/21 08:31 BP 125/70 07/19/21 07:51 Pulse Ox 99 07/19/21 07:51 BMI result Body Mass Index 22.3 Vital signs have been reviewed as appeared to be correct. Blood pressure normal. Heart rate normal. Respiration rate normal. Temperature normal. Ox ygen saturation normal. Appearance: Alert. Oriented X3. No acute distress. Head: Normal external exam. Normocephalic. Atraumatic. No Sanderson signs noted. No raccoon eyes noted Eyes: PERRLA. EOMI. Conjunctiva and sclera normal. Eyelids normal. ENT: TM's Normal. Pharynx normal. Uvula midline. Moist mucous membranes. No trismus noted. No drooling noted. No muffled voice noted. Neck: Normal inspection. Neck supple. FROM. No adenopathy. Thyroid Normal. No meningeal signs. No neck mass noted. CVS: Normal heart rate and rhythm. Heart sound normal. No murmurs noted. Pulses normal throughout. Respiratory: No respiratory distress. Painless inspiration. Breath sounds normal. Diffuse expiratory wheezing with prolonged expiration. Chest nontender. No accessory muscle usage noted or decreased air movement noted. Abdomen: Soft and nontender. Bowel sounds normal in all 4 quadrants. No distention noted. No organomegaly noted. No visible injury noted. Back: No CVA tenderness. Full range of motion noted. Skin: Skin warm and dry. Normal skin color. Normal skin turgor. No rashes/lesions/lacerations noted. Extremities: No lower extremity edema. Extremities exhibit normal range of motion. Extremities nontender. Neuro: Oriented X 3. Cranial nerve exam: II-XII are grossly intact No motor deficit. No sensory deficit. Reflexes normal. Course Course Course Narrative: Assessment and plan. 45-year-old female history of smoking and COPD with asthma presented with viral acute bronchitis secondary to flu a. Start patient on Tamiflu/albuterol/prednisone. MDM - URI/Sore Throat Lab Data Attestation: I reviewed the patient's lab results. Labs: Lab Results 07/19/21 07/19/21 Range/Units 08:03 08:03 COVID-19 (VALENTIN) Negative (Negative) COVID-19 Clin Com See Note Influenza Type A (KALEB) Positive A (Negative) Influenza Type B (KALEB) Negative (Negative) Influenza A & B Note See Note Imaging Data Chest x-ray: Attestation: I personally reviewed and interpreted this imaging study as follows: Radiologist's impression: No acute thoracic pathology. Discharge Plan Discharge Clinical Impression: Influenza A, Acute bronchitis, viral Patient Disposition: Home, Self-Care Instructions: Influenza (ED) Prescriptions: New oseltamivir [Tamiflu] 75 mg capsule 75 mg PO BID 5 Days Qty: 10 0RF albuterol sulfate 90 mcg/actuation HFA aerosol inhaler 1 inh inhalation QID PRN (Reason: shortness of breath or wheezing) Qty: 6.7 0RF prednisone 20 mg tablet 20 mg PO BID Qty: 10 0RF No Action Readi-Cat 2 2 % (w/v) suspension 900 ml PO ONCE Qty: 900 0RF cyclobenzaprine 10 mg tablet 10 mg PO TID Qty: 10 0RF naproxen [Naprosyn] 500 mg tablet 500 mg PO BID Qty: 20 0RF prednisone 20 mg tablet 60 mg PO DAILY 5 Days Qty: 15 0RF albuterol sulfate 90 mcg/actuation HFA aerosol inhaler 2 puff inhalation Q6H PRN (Reason: shortness of breath or wheezing) Qty: 8.5 0RF lidocaine [Lidoderm] 5 % adhesive patch,medicated 1 patch topical DAILY MDD remove after 12 hours PRN (Reason: pain) Qty: 30 0RF Rx Instructions: leave on most painful area for up to 12 hrs benzonatate [Tessalon Perles] 100 mg capsule 100 mg PO BID PRN (Reason: cough) Qty: 14 0RF tramadol 50 mg tablet 50 mg PO Q8H PRN (Reason: pain) Qty: 14 0RF diclofenac sodium 75 mg tablet,delayed release (DR/EC) 75 mg PO BID 0RF baclofen 20 mg tablet 20 mg PO TID 0RF gabapentin 600 mg tablet 600 mg PO BID PRN (Reason: Pain) 0RF lorazepam 1 mg tablet 1 mg PO DAILY PRN (Reason: Anxiety) 0RF fluticasone propionate 50 mcg/actuation spray,suspension 2 spray intranasal DAILY 0RF loratadine 10 mg capsule 10 mg PO DAILY 0RF paroxetine HCl [Paxil] 40 mg tablet 50 mg PO DAILY 0RF mirtazapine [Remeron] 15 mg tablet 15 mg PO DAILY 0RF norethindrone (contraceptive) [Ortho Micronor] 0.35 mg tablet 0.35 mg PO DAILY 0RF lactulose 10 gram/15 mL solution 10 g PO DAILY 0RF doxycycline hyclate 100 mg capsule 100 mg PO BID 0RF hydroxyzine pamoate 25 mg capsule 0 mg PO 0RF topiramate 50 mg tablet 50 mg PO BID 0RF methocarbamol 750 mg tablet 750 mg PO BEDTIME 0RF Referrals: Dory Ray MD [Primary Care Provider] -
[2021-07-19 08:25] LABS: COVID-19 Test Negative (Negative); IDNOW Serial# 16C4AD1C; Influenza A Positive (Negative); Influenza B2 Negative (Negative)
[2021-07-19 08:31] VITALS: PULSE 77; RESP 22; O2SAT 99
[2021-07-19] MEDS: Albuterol/Iprat 2.5/0.5MG 3 ML AMPUL.NEB INHALE (08:31)
[2021-07-19] MEDS: Albuterol Sulfate (0.083%) 2.5 MG/3 ML VIAL.NEB 5 MG INHALE (08:31)
[2021-07-19] MEDS: predniSONE 20 MG TABLET 60 MG PO (08:35)
[2021-07-19] MEDS: Acetaminophen 325 MG TABLET 650 MG PO (08:55)
== END 2021-07-19 11:03 | disposition home or self-care (01) ==
PROVIDERS: Emergency Provider Emergency Medicine; PCP Internal Medicine
DX: J10.1 Influenza due to other identified influenza virus with other respiratory manifestations (principal); J44.0 Chronic obstructive pulmonary disease with (acute) lower respiratory infection; J20.8 Acute bronchitis due to other specified organisms; Z20.822 Contact with and (suspected) exposure to COVID-19
CPT/HCPCS: 71045; 87502; 87635; 94640; 99284

== ENCOUNTER 2021-07-21 07:31 | Emergency (ER) | payer MEDICAID, SELFPAY ==
--- NOTE | ~2021-07-21 | XR_ITS ---
EXAMINATION: XR CHEST CLINICAL INFORMATION: Chest pain, shortness of breath, flu positive. COMPARISON: 07/19/2021 chest radiograph. TECHNIQUE: 2 views of the chest were obtained. FINDINGS: No significant abnormality is noted involving the heart, lungs, mediastinum, bony thorax or soft tissues. XR/XR chest 2V IMPRESSION: No acute cardiopulmonary process.
[2021-07-21 08:33] VITALS: BP 128/83; PULSE 97; RESP 18; TEMP 37; O2SAT 99; BMI 22.3
--- NOTE | 2021-07-21 09:14 | ECG_ITS ---
Test Reason : MED CLEARANCE Blood Pressure : / mmHG Vent. Rate : 083 BPM Atrial Rate : 083 BPM P-R Int : 128 ms QRS Dur : 086 ms QT Int : 354 ms P-R-T Axes : 076 058 025 degrees QTc Int : 415 ms Normal sinus rhythm Possible Left atrial enlargement Nonspecific ST abnormality Abnormal ECG When compared with ECG of 11-MAY-2021 18:29, No significant change was found Referred By: Carly Parham Electronically Signed By:QUITA CERVANTES MD
[2021-07-21] MEDS: Albuterol/Iprat 2.5/0.5MG 3 ML AMPUL.NEB INHALE (09:22)
[2021-07-21 09:23] VITALS: PULSE 92; RESP 18; O2SAT 97
[2021-07-21] MEDS: Ibuprofen 600 MG TABLET PO (09:40)
[2021-07-21] MEDS: Acetaminophen 325 MG TABLET 975 MG PO (09:40)
[2021-07-21] MEDS: predniSONE 20 MG TABLET 60 MG PO (09:41)
[2021-07-21] MEDS: guaiFENesin DM 100/10/5 ML 5 ML SYRUP PO (10:14)
[2021-07-21 10:16] LABS: MANUAL DIFF FLAG NO
[2021-07-21 10:27] LABS: Basophils Percent Auto 0.2 % (0-2); Eosinophils Percent Auto 0.2 % (0-4); Hematocrit 34.5 % (37.0-47.0); Hemoglobin 11.2 g/dl (12.0-16.0); Imm Gran Abs Auto 0.04 X10*3/uL (0.00-0.03); Imm Gran Pct Auto 0.3 % (0.0-0.4); Lymphocytes Absolute Auto 3.7 X10*3/uL (1.2-4.9); Lymphocytes Percent Auto 31.7 % (20-40); Mean Corpuscular HGB Conc 32.5 g/dl (31.0-35.0); Mean Corpuscular Volume 95.6 fL (80.0-98.0); Mean Platelet Volume 9.7 fL (9.4-12.3); Monocytes Absolute Auto 0.8 X10*3/uL (0.1-1.2); Neutrophils Percent Auto 60.6 % (45-73); Platelet Count 225 X10*3/uL (160-400); Red Blood Count 3.61 X10*6/uL (4.20-5.50); Red Cell Distribution Width 13.8 % (11.0-16.0); White Blood Count 11.5 X10*3/uL (4.8-10.8)
--- NOTE | 2021-07-21 10:36 | ED_ITS ---
HPI - URI/Sore Throat General Chief Complaint: Upper Respiratory Symptoms Stated Complaint: Asthma/Sore throat Time Seen by Provider: 07/21/21 08:40 Source: patient Mode of arrival: ambulatory Limitations: no limitations History of Present Illness HPI Narrative: Patient presents to the emergency department for evaluation of asthma/flu symptoms. She was diagnosed with influenza last week by her doctor's office, w as evaluated in the emergency department 2 days ago for similar symptoms. She reports feeling no better, complaining of worsening fatigue, headache, sore throat, cough, congestion, chest pain, shortness of breath. She has been taking Tylenol and ibuprofen in addition to her albuterol inhaler and nebulizer without significant improvement. She reports that she has been taking prednisone and Tamiflu as prescribed. Denies any past history of intubations for her asthma. Related Data Home Medications Medication Instructions Recorded Confirmed loratadine 10 mg capsule 10 mg PO DAILY 02/20/20 04/17/21 paroxetine HCl 40 mg tablet (Paxil) 50 mg PO DAILY tab 02/20/20 04/17/21 mirtazapine 15 mg tablet (Remeron) 15 mg PO DAILY 05/13/20 04/17/21 baclofen 20 mg tablet 20 mg PO TID 01/06/21 04/17/21 diclofenac sodium 75 mg 75 mg PO BID 01/06/21 04/17/21 tablet,delayed release fluticasone propionate 50 2 spray INTRANASAL DAILY 01/06/21 04/17/21 mcg/actuation nasal spray,suspension gabapentin 600 mg tablet 600 mg PO BID PRN 01/06/21 04/17/21 lorazepam 1 mg tablet 1 mg PO DAILY PRN 01/06/21 04/17/21 doxycycline hyclate 100 mg capsule 100 mg PO BID 02/09/21 04/17/21 hydroxyzine pamoate 25 mg capsule 0 mg PO 02/09/21 02/09/21 lactulose 10 gram/15 mL oral 10 g PO DAILY 02/09/21 04/17/21 solution methocarbamol 750 mg tablet 750 mg PO BEDTIME 02/09/21 02/09/21 norethindrone (contraceptive) 0.35 0.35 mg PO DAILY 02/09/21 04/17/21 mg tablet (Ortho Micronor) topiramate 50 mg tablet 50 mg PO BID 02/09/21 02/09/21 Previous Rx's Medication Instructions Recorded cyclobenzaprine 10 mg tablet 10 mg PO TID #10 tab 10/26/20 naproxen 500 mg tablet (Naprosyn) 500 mg PO BID #20 tab 10/26/20 albuterol sulfate 90 mcg/actuation 2 puff INHALATION Q6H PRN #8.5 g 11/14/20 aerosol inhaler prednisone 20 mg tablet 60 mg PO DAILY 5 Days #15 tab 11/14/20 lidocaine 5 % topical patch 1 patch TOPICAL DAILY PRN #30 ea 12/08/20 (Lidoderm) MDD remove after 12 hours barium sulfate 2 % (w/v) oral 900 ml PO ONCE #900 ml 01/21/21 suspension (Readi-Cat 2) benzonatate 100 mg capsule 100 mg PO BID PRN #14 cap 01/30/21 (Teslolita Cartwright) tramadol 50 mg tablet 50 mg PO Q8H PRN #14 tab 03/24/21 albuterol sulfate 90 mcg/actuation 1 inh INHALATION QID PRN #6.7 g 07/19/21 aerosol inhaler oseltamivir 75 mg capsule (Tamiflu) 75 mg PO BID 5 Days #10 cap 07/19/21 prednisone 20 mg tablet 20 mg PO BID #10 tab 07/19/21 benzonatate 100 mg capsule 100 mg PO BID PRN #14 cap 07/21/21 dextromethorphan-guaifenesin 5 10 ml PO Q4-8H PRN #118 ml 07/21/21 mg-100 mg/5 mL oral liquid (Robitussin Cough-Chest Congestion DM) Allergies Allergy/AdvReac Type Severity Reaction Status Date / Time dust Allergy Mild unknown Uncoded 07/19/21 07:51 Review of Systems Review of Systems: Constitutional : No Fever, No Chills ENT/Mouth : No Hoarseness, No sore throat, No Rhinorrhea Eyes: No Redness, No Discharge, No Vision Changes Cardiovascular : Positive Chest Pain, positive SOB, positive Dyspnea on Exertion, No Edema Respiratory : positive Cough, No Sputum, positive Wheezing, Gastrointestinal : No Nausea, No Vomiting, No Diarrhea, No abdominal Pain Genitourinary : No Dysuria, No Hematuria Musculoskeletal : No joint pain, No Myalgias Skin : No rash Neuro : No Weakness, No Numbness, No Headache Psych : No anxiety, depression Heme/Lymph: No Bruising, No Bleeding Endocrine : No Polyuria, No Polydipsia Yes all other systems are reviewed and are negative [facility] Past Medical History Attestation statement: The following information was validated with the patient. Source: old records reviewed Medical History Anxiety and depression Arthritis Asthma Chronic pain syndrome COVID-19 Depression Disc degeneration, lumbar Fibromyalgia Migraines Seasonal allergies Spondylosis of lumbar spine Surgical History H/O LEEP History of bilateral tubal ligation History of carpal tunnel release History of salpingo-oophorectomy Hx of colonoscopy Family History Family History Sister History of breast cancer, Onset Age: 52 Brother History of bone cancer History of blood disorder History of brain cancer Paternal Aunt History of cancer of uterus Social History Social History Alcohol intake: never Patient Tobacco Use Status: Current someday Tobacco user Advance Directives: No Advance Directives Information Provided: No Sexual orientation: Straight/Heterosexual Gender identity: Female Physical Exam Vital Signs: Vital Signs: Last Vital Signs Temp 99.4 F 07/21/21 11:16 Pulse 77 07/21/21 11:16 Resp 16 07/21/21 11:16 BP 134/76 07/21/21 11:16 Pulse Ox 99 07/21/21 11:16 BMI result Body Mass Index 22.3 Vital signs have been reviewed as normal and appeared to be correct. Blood pressure normal.? Heart rate normal.? Respiration rate normal. Temperature normal.? Oxygen saturation normal. Appearance: Alert.?Oriented to person, place and time. No acute distress, appears tired.?Normal affect. Eyes: Pupils equal, round and reactive to light.? ENT: Pharynx normal.?? Neck: Normal inspection.? Neck supple.?? CVS: Heart sounds normal. Normal heart rate and rhythm.? Pulses normal.?? Respiratory: No respiratory distress. No increased work of breathing, use of accessory muscles. Lung sounds expiratory wheezing bilaterally throughout Abdomen: Soft and non-tender. Normoactive bowel sounds. No pulsatile mass.?? Skin: Skin warm and dry.? Normal skin color.? Normal skin turgor.?? Extremities: No lower extremity edema.? No calf ttp? Neuro: Moves all extremities spontaneously. Sensation intact bilaterally. CN II- XII intact. No focal neuro deficits. Ambulates with normal steady gait. Course Course Course Narrative: Patient is a 45-year-old female with a past medical history of anxiety, depression, arthritis, asthma, fibromyalgia, migraines, and recent influenza diagnosis. Presenting for evaluation of flu-like symptoms and asthma exacerbation. Given reports of associated chest pain, worsening shortness of breath and fatigue will obtain CBC, BMP, troponin, EKG, chest x-ray. Not consistent with PE, AAA, dissection. Patient to receive Tylenol and ibuprofen in addition to DuoNeb updraft, Robitussin DM for cough. Disposition pending results Reevaluation(s) Reevaluation #1: CBC reveals a mild leukocytosis at 11.5, mild normocytic anemia with hemoglobin 11.2 and hematocrit 34.5 consistent with prior labs. BMP is overall unremarkable. Troponin is <3.5, EKG reveals normal sinus rhythm no acute concerns for ischemia, heart score of 1, unlikely to be ACS. Chest x-ray is normal, unlikely pneumonia. Patient without tachycardia, hypoxia. Lung sounds with decreased wheezing throughout after receiving DuoNeb. Cough has improved with use of Robitussin DM. Symptoms are most consistent with bronchitis secondary to viral infection, with asthma. Discussed plan of care for discharge home, outpatient follow-up with primary care provider in 1-3 days, discussed reasons to return back to the emergency department, patient is agreeable to plan of care. MDM - URI/Sore Throat Medical Records Attestation: I reviewed the patient's medical records. Lab Data Attestation: I reviewed the patient's lab results. Result diagrams: 07/21/21 10:11 07/21/21 10:11 Labs: Lab Results 07/21/21 07/21/21 07/21/21 Range/Units 10:11 10:11 10:11 WBC 11.5 H (4.8-10.8) X10*3/uL RBC 3.61 L (4.20-5.50) X10*6/uL Hgb 11.2 L (12.0-16.0) g/dl Hct 34.5 L (37.0-47.0) % MCV 95.6 (80.0-98.0) fL MCH 31.0 (27.0-33.0) pg MCHC 32.5 (31.0-35.0) g/dl RDW 13.8 (11.0-16.0) % Plt Count 225 (160-400) X10*3/uL MPV 9.7 (9.4-12.3) fL Immature Gran % (Auto) 0.3 (0.0-0.4) % Neut % (Auto) 60.6 (45-73) % Lymph % (Auto) 31.7 (20-40) % Gonzales % (Auto) 7.0 (2-11) % Eos % (Auto) 0.2 (0-4) % Baso % (Auto) 0.2 (0-2) % Lymph # (Auto) 3.7 (1.2-4.9) X10*3/uL Gonzales # (Auto) 0.8 (0.1-1.2) X10*3/uL Eos # (Auto) 0.0 (0.0-0.4) X10*3/uL Baso # (Auto) 0.0 (0.0-0.2) X10*3/uL Abs Immat Gran (auto) 0.04 H (0.00-0.03) X10*3/uL Absolute Neuts (auto) 7.0 (2.0-8.3) x10*3/uL Absolute Nucleated RBC 0.000 (0.0-0.012) X10*3/uL Nucleated RBC % (auto) 0.0 (0.0-0.2) /100WBC Sodium 139 (135-145) mmol/L Potassium 3.4 (3.3-5.1) mmol/L Chloride 106 (96-108) mmol/L Carbon Dioxide 26 (22-29) mmol/L Anion Gap 10 L (12-20) BUN 11 (9-16) mg/dL Creatinine 0.69 (0.5-1.4) mg/dL Estim Creat Clear Calc 87.0 Estimated GFR > 60 Random Glucose 88 (60-115) mg/dL Calcium 8.8 (8.4-10.2) mg/dL Magnesium 1.8 (1.6-2.6) mg/dL Troponin I High Sens < 3.5 (<3.5-17.0) ng/L Imaging Data Chest x-ray: Radiologist's impression: FINDINGS: No significant abnormality is noted involving the heart, lungs, mediastinum, bony thorax or soft tissues. XR/XR chest 2V IMPRESSION: No acute cardiopulmonary process. ECG Data Attestation: I personally reviewed and interpreted this ECG as follows: ECG interpretation date: 07/21/21 ECG interpretation time: 10:30 Prior ECG tracings: available for review Interpretation: Rate: 83 Rhythm:? Normal sinus rhythm [place]:? Normal Normal P waves.? Normal SUE.?? Normal QRS complex.?? ST T wave :??Nonspecific ST abnormality qTC: 415 prior studies:? May 2021 The study has been interpreted contemporaneously by me. Discharge Plan Discharge Clinical Impression: Influenza, Asthma exacerbation, Bronchitis Patient Disposition: Home, Self-Care Instructions: Asthma (ED), Pharyngitis (ED), Influenza (ED), Acute Bronchitis (ED) Additional Instructions: Continue taking Tamiflu and prednisone as previously prescribed, addition to the use of your albuterol inhaler nebulizer as needed for shortness breath. Follow- up with your primary care provider in 1-3 days. Return to the emergency department with any new or worsening symptoms or concerns Prescriptions: New Robitussin Cough-Chest Jarod DM 5-100 mg/5 mL liquid 10 ml PO Q4-8H PRN (Reason: cough) Qty: 118 0RF benzonatate 100 mg capsule 100 mg PO BID PRN (Reason: cough) Qty: 14 0RF No Action Readi-Cat 2 2 % (w/v) suspension 900 ml PO ONCE Qty: 900 0RF cyclobenzaprine 10 mg tablet 10 mg PO TID Qty: 10 0RF naproxen [Naprosyn] 500 mg tablet 500 mg PO BID Qty: 20 0RF prednisone 20 mg tablet 60 mg PO DAILY 5 Days Qty: 15 0RF albuterol sulfate 90 mcg/actuation HFA aerosol inhaler 2 puff inhalation Q6H PRN (Reason: shortness of breath or wheezing) Qty: 8.5 0RF lidocaine [Lidoderm] 5 % adhesive patch,medicated 1 patch topical DAILY MDD remove after 12 hours PRN (Reason: pain) Qty: 30 0RF Rx Instructions: leave on most painful area for up to 12 hrs benzonatate [Tessalon Perles] 100 mg capsule 100 mg PO BID PRN (Reason: cough) Qty: 14 0RF tramadol 50 mg tablet 50 mg PO Q8H PRN (Reason: pain) Qty: 14 0RF oseltamivir [Tamiflu] 75 mg capsule 75 mg PO BID 5 Days Qty: 10 0RF albuterol sulfate 90 mcg/actuation HFA aerosol inhaler 1 inh inhalation QID PRN (Reason: shortness of breath or wheezing) Qty: 6.7 0RF prednisone 20 mg tablet 20 mg PO BID Qty: 10 0RF diclofenac sodium 75 mg tablet,delayed release (DR/EC) 75 mg PO BID 0RF baclofen 20 mg tablet 20 mg PO TID 0RF gabapentin 600 mg tablet 600 mg PO BID PRN (Reason: Pain) 0RF lorazepam 1 mg tablet 1 mg PO DAILY PRN (Reason: Anxiety) 0RF fluticasone propionate 50 mcg/actuation spray,suspension 2 spray intranasal DAILY 0RF loratadine 10 mg capsule 10 mg PO DAILY 0RF paroxetine HCl [Paxil] 40 mg tablet 50 mg PO DAILY 0RF mirtazapine [Remeron] 15 mg tablet 15 mg PO DAILY 0RF norethindrone (contraceptive) [Ortho Micronor] 0.35 mg tablet 0.35 mg PO DAILY 0RF lactulose 10 gram/15 mL solution 10 g PO DAILY 0RF doxycycline hyclate 100 mg capsule 100 mg PO BID 0RF hydroxyzine pamoate 25 mg capsule 0 mg PO 0RF topiramate 50 mg tablet 50 mg PO BID 0RF methocarbamol 750 mg tablet 750 mg PO BEDTIME 0RF
[2021-07-21 10:39] LABS: Anion Gap 10 (12-20); Blood Urea Nitrogen 11 mg/dL (9-16); Calcium 8.8 mg/dL (8.4-10.2); Carbon Dioxide 26 mmol/L (22-29); Chloride 106 mmol/L (96-108); Estimated Glomerular Filt Rate > 60; Glucose Random 88 mg/dL (60-115); Magnesium 1.8 mg/dL (1.6-2.6); Potassium 3.4 mmol/L (3.3-5.1); Sodium 139 mmol/L (135-145)
[2021-07-21 10:43] LABS: Troponin-I High Sensitivity < 3.5 ng/L (<3.5-17.0)
[2021-07-21 11:16] VITALS: BP 134/76; PULSE 77; RESP 16; TEMP 37.4; O2SAT 99
== END 2021-07-21 11:37 | disposition home or self-care (01) ==
PROVIDERS: Nurse Practitioner Family; Emergency Provider Emergency Medicine; PCP Internal Medicine
DX: J11.1 Influenza due to unidentified influenza virus with other respiratory manifestations (principal); J40 Bronchitis, not specified as acute or chronic; R07.89 Other chest pain; R06.02 Shortness of breath; Z79.899 Other long term (current) drug therapy
CPT/HCPCS: 36415; 71046; 80048; 83735; 84484; 85025; 93005; 94640; 99284

== ENCOUNTER 2021-08-28 09:08 | Outpatient (REF) | payer MEDICAID, SELFPAY ==
--- NOTE | ~2021-08-28 | MM_ITS ---
EXAMINATION: MM SCREENING DIGITAL BREAST TOMOSYNTHESIS, BILATERAL CLINICAL INFORMATION: Screening. Asymptomatic. The lifetime risk of breast cancer based on the Tyrer-Cuzick Model is 15%. COMPARISON: Mammography: 02/20/2020 and prior studies dating back to 01/04/2014 TECHNIQUE: Digital breast tomosynthesis is performed in both the craniocaudal and mediolateral oblique views along with computer-aided detection (CAD). Synthesized 2D images are generated from the tomosynthesis. FINDINGS: There are scattered areas of fibroglandular density (ACR BI-RADS breast composition Category b). There are no significant masses, abnormal calcifications, or other abnormalities. Parenchymal pattern is similar to prior studies. There is chronic minor accessory fibroglandular tissue anterior upper left breast on MLO view similar to prior exams. No developing density. The axilla and skin contours are unremarkable. MM/MM tomosynthesis screening BI IMPRESSION: No significant changes from prior studies. ASSESSMENT: BI-RADS 2: Benign RECOMMENDATION: Routine annual mammography screening. This patient's information was entered into a reminder system with a target due date for their next mammogram.
== END 2021-08-28 09:09 | disposition home or self-care (01) ==
LOC: HO.MAMMO 09:08
PROVIDERS: PCP Internal Medicine; Visit Provider Internal Medicine
DX: Z12.31 Encounter for screening mammogram for malignant neoplasm of breast (principal)
CPT/HCPCS: 77063; 77067

== ENCOUNTER → 2021-10-29 09:10 | Outpatient (BNVA) | payer MEDICAID, SELFPAY | PROVIDERS: PCP Internal Medicine; Visit Provider Surgery Vascular Surgery | DX: I83.12 Varicose veins of left lower extremity with inflammation (principal) | CPT/HCPCS: 99202 ==

== ENCOUNTER 2021-11-29 07:25 | Emergency (ER) | payer MEDICAID, SELFPAY ==
--- NOTE | ~2021-11-29 | US_ITS ---
EXAMINATION: US VENOUS ULTRASOUND WITH DOPPLER LOWER EXTREMITY, LEFT CLINICAL INFORMATION: Pain and swelling COMPARISON: May 11, 2021 TECHNIQUE: Ultrasound of the deep veins is performed from the hip to the calf with compression sonography and color and pulse Doppler assessment. Spectral analysis with color-flow imaging is performed. FINDINGS: There is normal venous compression and respiratory variation and augmented flow. The visualized common femoral vein, superficial femoral vein, profunda femoral vein, popliteal vein, and the trifurcation region shows no evidence of deep venous thrombosis. There is no significant popliteal fossa cyst. US/US venous duplex LE LT IMPRESSION: No acute DVT demonstrated in the left lower extremity.
[2021-11-29 07:27] VITALS: BP 135/87; PULSE 82; RESP 17; TEMP 36.6; O2SAT 98; BMI 25.7
--- NOTE | 2021-11-29 07:48 | ED.LOWEXIN ---
HPI - Extremity Injury (Lower) General Chief Complaint: Extremity Injury, Lower Stated Complaint: L leg pain/swelling Time Seen by Provider: 11/29/21 07:46 Source: patient Mode of arrival: ambulatory Limitations: no limitations History of Present Illness HPI Narrative: 46-YEAR-OLD FEMALE CAME IN FOR EVALUATION OF LEFT LOWER EXTREMITIES PAIN. Left leg pain started months ago, declined any trauma or injury to the left lower extremity, no recent travel, no SOB, no CP. No fever, no chills. Patient has been taking NSAIDs. Related Data Home Medications Medication Instructions Recorded Confirmed loratadine 10 mg capsule 10 mg PO DAILY 02/20/20 04/17/21 paroxetine HCl 40 mg tablet (Paxil) 50 mg PO DAILY 02/20/20 04/17/21 mirtazapine 15 mg tablet (Remeron) 15 mg PO DAILY 05/13/20 04/17/21 baclofen 20 mg tablet 20 mg PO TID 01/06/21 04/17/21 diclofenac sodium 75 mg 75 mg PO BID 01/06/21 04/17/21 tablet,delayed release fluticasone propionate 50 2 spray intranasal DAILY 01/06/21 04/17/21 mcg/actuation nasal spray,suspension gabapentin 600 mg tablet 600 mg PO BID PRN Pain 01/06/21 04/17/21 lorazepam 1 mg tablet 1 mg PO DAILY PRN Anxiety 01/06/21 04/17/21 doxycycline hyclate 100 mg capsule 100 mg PO BID 02/09/21 04/17/21 lactulose 10 gram/15 mL oral 10 g PO DAILY 02/09/21 04/17/21 solution methocarbamol 750 mg tablet 750 mg PO BEDTIME 02/09/21 02/09/21 norethindrone (contraceptive) 0.35 0.35 mg PO DAILY 02/09/21 04/17/21 mg tablet (Ortho Micronor) topiramate 50 mg tablet 50 mg PO BID 02/09/21 02/09/21 hydroxyzine pamoate 25 mg capsule 50 mg PO 10/29/21 Previous Rx's Medication Instructions Recorded cyclobenzaprine 10 mg tablet 10 mg PO TID #10 tabs 10/26/20 naproxen 500 mg tablet (Naprosyn) 500 mg PO BID #20 tabs 10/26/20 albuterol sulfate 90 mcg/actuation 2 puff inhalation Q6H PRN 11/14/20 aerosol inhaler shortness of breath or wheezing #8.5 grams prednisone 20 mg tablet 60 mg PO DAILY asthma flare 5 days 11/14/20 #15 tabs lidocaine 5 % topical patch 1 patch topical DAILY PRN pain #30 12/08/20 (Lidoderm) ea barium sulfate 2 % (w/v) oral 900 ml PO ONCE #900 mL 01/21/21 suspension (Readi-Cat 2) benzonatate 100 mg capsule 100 mg PO BID PRN cough #14 caps 01/30/21 (Tessalon Perles) tramadol 50 mg tablet 50 mg PO Q8H PRN pain #14 tabs 03/24/21 albuterol sulfate 90 mcg/actuation 1 inh inhalation QID PRN shortness 07/19/21 aerosol inhaler of breath or wheezing #6.7 grams oseltamivir 75 mg capsule (Tamiflu) 75 mg PO BID 5 days #10 caps 07/19/21 prednisone 20 mg tablet 20 mg PO BID #10 tabs 07/19/21 benzonatate 100 mg capsule 100 mg PO BID PRN cough #14 caps 07/21/21 dextromethorphan-guaifenesin 5 10 ml PO Q4-8H PRN cough #118 mL 07/21/21 mg-100 mg/5 mL oral liquid (Robitussin Cough-Chest Congestion DM) Allergies Allergy/AdvReac Type Severity Reaction Status Date / Time dust Allergy Mild unknown Uncoded 07/19/21 07:51 Review of Systems Review of Systems: All other systems are reviewed and are negative Constitutional: Reports as per HPI and Reports no additional constitutional complaints Eyes: Reports as per HPI and Reports no additional eye complaints Reports system reviewed and no additional complaints, except as documented Cardiovascular: Reports as per HPI and Reports no additional cardiovascular complaints Respiratory: Reports as per HPI and Reports no additional respiratory complaints Gastrointestinal: Reports as per HPI and Reports no additional gastrointestinal complaints Genitourinary: Reports no additional female genitourinary complaints Musculoskeletal: Reports no additional musculoskeletal complaints Skin/Breast: Reports system reviewed and no additional complaints, except as docu Psychiatric: Reports no additional psychiatric complaints Endocrine: Reports no additional endocrine complaints Hematologic/Lymphatic: Reports no additional hematologic/lymphatic complaints Allergic/Immunologic: Reports no additional allergic/immunologic complaints Reports system reviewed and no additional complaints, except as documented and Reports Abnormal speech present PMFSH Past Medical History Medical History Anxiety and depression Arthritis Asthma Chronic pain syndrome COVID-19 Depression Disc degeneration, lumbar Fibromyalgia Migraines Seasonal allergies Spondylosis of lumbar spine Surgical History H/O LEEP History of bilateral tubal ligation History of carpal tunnel release History of salpingo-oophorectomy Hx of colonoscopy Family History Family History Sister History of breast cancer, Onset Age: 52 Brother History of bone cancer History of blood disorder History of brain cancer Paternal Aunt History of cancer of uterus Social History Social History Alcohol intake: never Patient Tobacco Use Status: Former Tobacco user Cigarettes Per Day: 8 Smoked in Last 30 Days: Yes Use of substances other than those prescribed or required for medical reasons: No Advance Directives: No Advance Directives Information Provided: Yes Patient : No Sexual orientation: Straight/Heterosexual Gender identity: Female Physical Exam Vital Signs: Vital Signs: Last Vital Signs Temp 98.1 F 11/29/21 08:00 Pulse 74 11/29/21 08:00 Resp 16 11/29/21 08:00 BP 101/79 11/29/21 08:00 Pulse Ox 97 11/29/21 08:00 O2 Del Method 11/29/21 08:00 BMI result Body Mass Index 25.7 Vital signs have been reviewed as appeared to be correct. Blood pressure normal. Heart rate normal. Respiration rate normal. Temperature normal. Oxygen saturation normal. Appearance: Alert. Oriented X3. No acute distress. Head: Normal external exam. Normocephalic. Atraumatic. No Sanderson signs noted. No raccoon eyes noted Eyes: PERRLA. EOMI. Conjunctiva and sclera normal. Eyelids normal. ENT: TM's Normal. Pharynx normal. Uvula midline. Moist mucous membranes. No trismus noted. No drooling noted. No muffled voice noted. Neck: Normal inspection. Neck supple. FROM. No adenopathy. Thyroid Normal. No meningeal signs. No neck mass noted. CVS: Normal heart rate and rhythm. Heart sound normal. No murmurs noted. Pulses normal throughout. Respiratory: No respiratory distress. Painless inspiration. Breath sounds normal. No wheezes/rales/rhonchi noted. Chest nontender. No accessory muscle usage noted or decreased air movement noted. Abdomen: Soft and nontender. Bowel sounds normal in all 4 quadrants. No distention noted. No organomegaly noted. No visible injury noted. Back: No CVA tenderness. Full range of motion noted. Skin: Skin warm and dry. Normal skin color. Normal skin turgor. No rashes/lesions/lacerations noted. Extremities: No lower extremity edema. Extremities exhibit normal range of motion. Extremities nontender. Neuro: Oriented X 3. Cranial nerve exam: II-XII are grossly intact No motor deficit. No sensory deficit. Reflexes normal. Course Course Course Narrative: Left leg pain for many months, no DVT negative ultrasound today, no apparent trauma or injury. Continue with heating pads and NSAIDs with follow-up with PCP. MDM - Extremity Injury (Lower) Imaging Data Left leg ultrasound: Attestation: I personally reviewed and interpreted this imaging study as follows: Radiologist's impression: No acute DVT demonstrated in the left lower extremity. Discharge Plan Discharge Clinical Impression: Acute leg pain Patient Disposition: Home, Self-Care Instructions: Leg Pain (ED) Prescriptions: No Action Readi-Cat 2 2 % (w/v) suspension 900 ml PO ONCE Qty: 900 0RF cyclobenzaprine 10 mg tablet 10 mg PO TID Qty: 10 0RF naproxen [Naprosyn] 500 mg tablet 500 mg PO BID Qty: 20 0RF prednisone 20 mg tablet 60 mg PO DAILY 5 Days Qty: 15 0RF albuterol sulfate 90 mcg/actuation HFA aerosol inhaler 2 puff inhalation Q6H PRN (Reason: shortness of breath or wheezing) Qty: 8.5 0RF lidocaine [Lidoderm] 5 % adhesive patch,medicated 1 patch topical DAILY MDD remove after 12 hours PRN (Reason: pain) Qty: 30 0RF Rx Instructions: leave on most painful area for up to 12 hrs benzonatate [Tessalon Perles] 100 mg capsule 100 mg PO BID PRN (Reason: cough) Qty: 14 0RF tramadol 50 mg tablet 50 mg PO Q8H PRN (Reason: pain) Qty: 14 0RF oseltamivir [Tamiflu] 75 mg capsule 75 mg PO BID 5 Days Qty: 10 0RF albuterol sulfate 90 mcg/actuation HFA aerosol inhaler 1 inh inhalation QID PRN (Reason: shortness of breath or wheezing) Qty: 6.7 0RF prednisone 20 mg tablet 20 mg PO BID Qty: 10 0RF Robitussin Cough-Chest Jarod DM 5-100 mg/5 mL liquid 10 ml PO Q4-8H PRN (Reason: cough) Qty: 118 0RF benzonatate 100 mg capsule 100 mg PO BID PRN (Reason: cough) Qty: 14 0RF diclofenac sodium 75 mg tablet,delayed release (DR/EC) 75 mg PO BID baclofen 20 mg tablet 20 mg PO TID gabapentin 600 mg tablet 600 mg PO BID PRN (Reason: Pain) lorazepam 1 mg tablet 1 mg PO DAILY PRN (Reason: Anxiety) fluticasone propionate 50 mcg/actuation spray,suspension 2 spray intranasal DAILY loratadine 10 mg capsule 10 mg PO DAILY paroxetine HCl [Paxil] 40 mg tablet 50 mg PO DAILY mirtazapine [Remeron] 15 mg tablet 15 mg PO DAILY norethindrone (contraceptive) [Ortho Micronor] 0.35 mg tablet 0.35 mg PO DAILY lactulose 10 gram/15 mL solution 10 g PO DAILY doxycycline hyclate 100 mg capsule 100 mg PO BID topiramate 50 mg tablet 50 mg PO BID methocarbamol 750 mg tablet 750 mg PO BEDTIME hydroxyzine pamoate 25 mg capsule 50 mg PO
[2021-11-29 08:00] VITALS: BP 101/79; PULSE 74; RESP 16; TEMP 36.7; O2SAT 97
[2021-11-29] MEDS: oxyCODONE HCl Immed Release 5 MG TABLET PO (08:10)
--- NOTE | 2021-11-29 08:19 | PC.NURSE ---
Patient reports experiencing right knee pain a 9 and she said when ambulating she is limping. Patient vitals were stable, patient was administer oxy by doctor order. Patient lung sound were clear, patient had skin turgor normal, no edema on her leg, no wound, no discoloration, varicose veins, and palpate distal pulses.
[2021-11-29 10:00] VITALS: BP 148/79; PULSE 55; RESP 20; O2SAT 98
== END 2021-11-29 10:41 | disposition home or self-care (01) ==
PROVIDERS: Emergency Provider Emergency Medicine; PCP Internal Medicine
DX: R60.0 Localized edema (principal); Z79.899 Other long term (current) drug therapy; Z87.891 Personal history of nicotine dependence
CPT/HCPCS: 93971; 99284

== ENCOUNTER 2021-12-13 06:45 | Emergency (ER) | payer MEDICAID, SELFPAY ==
[2021-12-13 07:09] VITALS: BP 112/69; PULSE 78; RESP 16; TEMP 36.1; O2SAT 99; BMI 23.3
[2021-12-13 07:35] LABS: Appearance Urine Clear; Color Urine Yellow; Glucose Urine UA Negative (Negative); Leukocyte Esterase Urine Negative (Negative); Nitrite Urine Negative (Negative); PH 5.5 (5.0-9.0); Specific Gravity - Urine 1.025 (1.005-1.025); Urine Blood Moderate (2+) (Negative); Urine Ketones Negative (Negative); Urine Protein Negative (Neg-Trace)
[2021-12-13 07:41] LABS: Bacteria Urine None Seen (None Seen); Hyaline Casts Urine 0-2 /LPF (0-2); WBC Urine 0-5 /HPF (0-5)
--- NOTE | 2021-12-13 08:30 | ED_ITS ---
HPI - Female Genitourinary General Chief complaint: Urogenital-Female Stated complaint: vaginal infection Time Seen by Provider: 12/13/21 08:30 Source: patient Mode of arrival: ambulatory Limitations: no limitations History of Present Illness HPI Narrative: 46-year-old female came in for evaluation of dysuria and frequency urination. Started 2 days ago with suprapubic pain more with urination, increased urination and burning sensation while urinating, bad odor to the urine, no vaginal discharge, patient is sexually active with 1 partner patient declined chance of STDs. Related Data Home Medications Medication Instructions Recorded Confirmed loratadine 10 mg capsule 10 mg PO DAILY 02/20/20 04/17/21 paroxetine HCl 40 mg tablet (Paxil) 50 mg PO DAILY 02/20/20 04/17/21 mirtazapine 15 mg tablet (Remeron) 15 mg PO DAILY 05/13/20 04/17/21 baclofen 20 mg tablet 20 mg PO TID 01/06/21 04/17/21 diclofenac sodium 75 mg 75 mg PO BID 01/06/21 04/17/21 tablet,delayed release fluticasone propionate 50 2 spray intranasal DAILY 01/06/21 04/17/21 mcg/actuation nasal spray,suspension gabapentin 600 mg tablet 600 mg PO BID PRN Pain 01/06/21 04/17/21 lorazepam 1 mg tablet 1 mg PO DAILY PRN Anxiety 01/06/21 04/17/21 doxycycline hyclate 100 mg capsule 100 mg PO BID 02/09/21 04/17/21 lactulose 10 gram/15 mL oral 10 g PO DAILY 02/09/21 04/17/21 solution methocarbamol 750 mg tablet 750 mg PO BEDTIME 02/09/21 02/09/21 norethindrone (contraceptive) 0.35 0.35 mg PO DAILY 02/09/21 04/17/21 mg tablet (Ortho Micronor) topiramate 50 mg tablet 50 mg PO BID 02/09/21 02/09/21 hydroxyzine pamoate 25 mg capsule 50 mg PO 10/29/21 Previous Rx's Medication Instructions Recorded cyclobenzaprine 10 mg tablet 10 mg PO TID #10 tabs 10/26/20 naproxen 500 mg tablet (Naprosyn) 500 mg PO BID #20 tabs 10/26/20 albuterol sulfate 90 mcg/actuation 2 puff inhalation Q6H PRN 11/14/20 aerosol inhaler shortness of breath or wheezing #8.5 grams prednisone 20 mg tablet 60 mg PO DAILY asthma flare 5 days 11/14/20 #15 tabs lidocaine 5 % topical patch 1 patch topical DAILY PRN pain #30 12/08/20 (Lidoderm) ea barium sulfate 2 % (w/v) oral 900 ml PO ONCE #900 mL 01/21/21 suspension (Readi-Cat 2) benzonatate 100 mg capsule 100 mg PO BID PRN cough #14 caps 01/30/21 (Tessalon Perles) tramadol 50 mg tablet 50 mg PO Q8H PRN pain #14 tabs 03/24/21 albuterol sulfate 90 mcg/actuation 1 inh inhalation QID PRN shortness 07/19/21 aerosol inhaler of breath or wheezing #6.7 grams oseltamivir 75 mg capsule (Tamiflu) 75 mg PO BID 5 days #10 caps 07/19/21 prednisone 20 mg tablet 20 mg PO BID #10 tabs 07/19/21 benzonatate 100 mg capsule 100 mg PO BID PRN cough #14 caps 07/21/21 dextromethorphan-guaifenesin 5 10 ml PO Q4-8H PRN cough #118 mL 07/21/21 mg-100 mg/5 mL oral liquid (Robitussin Cough-Chest Congestion DM) nitrofurantoin 100 mg PO Q12H 5 days #10 caps 12/13/21 monohydrate/macrocrystals 100 mg capsule (Macrobid) phenazopyridine 100 mg tablet 100 mg PO TID PRN pain 6 doses #6 12/13/21 (Pyridium) tabs Allergies Allergy/AdvReac Type Severity Reaction Status Date / Time dust Allergy Mild unknown Uncoded 07/19/21 07:51 Review of Systems Review of Systems: All other systems are reviewed and are negative Constitutional: Reports as per HPI and Reports no additional constitutional complaints Eyes: Reports as per HPI and Reports no additional eye complaints Reports system reviewed and no additional complaints, except as documented Cardiovascular: Reports as per HPI and Reports no additional cardiovascular complaints Respiratory: Reports as per HPI and Reports no additional respiratory complaints Gastrointestinal: Reports as per HPI and Reports no additional gastrointestinal complaints Genitourinary: Reports no additional female genitourinary complaints Musculoskeletal: Reports no additional musculoskeletal complaints Skin/Breast: Reports system reviewed and no additional complaints, except as docu Psychiatric: Reports no additional psychiatric complaints Endocrine: Reports no additional endocrine complaints Hematologic/Lymphatic: Reports no additional hematologic/lymphatic complaints Allergic/Immunologic: Reports no additional allergic/immunologic complaints Reports system reviewed and no additional complaints, except as documented and Reports Abnormal speech present [facility] Past Medical History Medical History Anxiety and depression Arthritis Asthma Chronic pain syndrome COVID-19 Depression Disc degeneration, lumbar Fibromyalgia Migraines Seasonal allergies Spondylosis of lumbar spine Surgical History H/O LEEP History of bilateral tubal ligation History of carpal tunnel release History of salpingo-oophorectomy Hx of colonoscopy Family History Family History Sister History of breast cancer, Onset Age: 52 Brother History of bone cancer History of blood disorder History of brain cancer Paternal Aunt History of cancer of uterus Social History Social History Alcohol intake: never Patient Tobacco Use Status: Former Tobacco user Cigarettes Per Day: 8 Advance Directives: No Advance Directives Information Provided: Yes Sexual orientation: Straight/Heterosexual Gender identity: Female Physical Exam Vital Signs: Vital Signs: Last Vital Signs Temp 97.0 F 12/13/21 07:09 Pulse 78 12/13/21 07:09 Resp 16 12/13/21 07:09 BP 112/69 12/13/21 07:09 Pulse Ox 99 12/13/21 07:09 O2 Del Method 12/13/21 07:09 BMI result Body Mass Index 23.3 Vital signs have been reviewed as appeared to be correct. Blood pressure normal. Heart rate normal. Respiration rate normal. Temperature normal. Oxygen saturation normal. Appearance: Alert. Oriented X3. No acute distress. Head: Normal external exam. Normocephalic. Atraumatic. No Sanderson signs noted. No raccoon eyes noted Eyes: PERRLA. EOMI. Conjunctiva and sclera normal. Eyelids normal. ENT: TM's Normal. Pharynx normal. Uvula midline. Moist mucous membranes. No trismus noted. No drooling noted. No muffled voice noted. Neck: Normal inspection. Neck supple. FROM. No adenopathy. Thyroid Normal. No meningeal signs. No neck mass noted. CVS: Normal heart rate and rhythm. Heart sound normal. No murmurs noted. Pulses normal throughout. Respiratory: No respiratory distress. Painless inspiration. Breath sounds normal. No wheezes/rales/rhonchi noted. Chest nontender. No accessory muscle usage noted or decreased air movement noted. Abdomen: Soft and nontender. Bowel sounds normal in all 4 quadrants. No distention noted. No organomegaly noted. No visible injury noted. Back: No CVA tenderness. Full range of motion noted. Skin: Skin warm and dry. Normal skin color. Normal skin turgor. No rashes/lesions/lacerations noted. Extremities: No lower extremity edema. Extremities exhibit normal range of motion. Extremities nontender. Neuro: Oriented X 3. Cranial nerve exam: II-XII are grossly intact No motor deficit. No sensory deficit. Reflexes normal. Course Course Course Narrative: 46-year-old female with dysuria and urinary frequency UA showing blood. Physical exam and finding is more consistent with possible hemorrhagic cystitis, start the patient on Macrobid and encouraged to drink plenty of fluid MDM - Female Genitourinary Lab Data Attestation: I reviewed the patient's lab results. Labs: Lab Results 12/13/21 Range/Units 07:25 Urine Color Yellow Urine Appearance Clear Urine pH 5.5 (5.0-9.0) Ur Specific [place] 1.025 (1.005-1.025) Urine Protein Negative (Neg-Trace) mg/dL Urine Glucose (UA) Negative (Negative) mg/dL Urine Ketones Negative (Negative) mg/dL Urine Blood Moderate (2+) H (Negative) Urine Nitrite Negative (Negative) Ur Leukocyte Esterase Negative (Negative) Urine RBC 6-10 H (0-2) /HPF Urine WBC 0-5 (0-5) /HPF Ur Squamous Epith Cells 6-10 (0-2) /HPF Urine Bacteria None Seen (None Seen) Hyaline Casts 0-2 (0-2) /LPF Discharge Plan Discharge Clinical Impression: Cystitis, Urinary tract infection Patient Disposition: Home, Self-Care Instructions: Urinary Tract Infection in Women (ED) Prescriptions: New nitrofurantoin monohyd/m-cryst [Macrobid] 100 mg capsule 100 mg PO Q12H 5 Days Qty: 10 0RF Rx Instructions: must administer with a meal/food phenazopyridine [Pyridium] 100 mg tablet 100 mg PO TID PRN (Reason: pain) Qty: 6 0RF No Action Readi-Cat 2 2 % (w/v) suspension 900 ml PO ONCE Qty: 900 0RF cyclobenzaprine 10 mg tablet 10 mg PO TID Qty: 10 0RF naproxen [Naprosyn] 500 mg tablet 500 mg PO BID Qty: 20 0RF prednisone 20 mg tablet 60 mg PO DAILY 5 Days Qty: 15 0RF albuterol sulfate 90 mcg/actuation HFA aerosol inhaler 2 puff inhalation Q6H PRN (Reason: shortness of breath or wheezing) Qty: 8.5 0RF lidocaine [Lidoderm] 5 % adhesive patch,medicated 1 patch topical DAILY MDD remove after 12 hours PRN (Reason: pain) Qty: 30 0RF Rx Instructions: leave on most painful area for up to 12 hrs benzonatate [Tessalon Perles] 100 mg capsule 100 mg PO BID PRN (Reason: cough) Qty: 14 0RF tramadol 50 mg tablet 50 mg PO Q8H PRN (Reason: pain) Qty: 14 0RF oseltamivir [Tamiflu] 75 mg capsule 75 mg PO BID 5 Days Qty: 10 0RF albuterol sulfate 90 mcg/actuation HFA aerosol inhaler 1 inh inhalation QID PRN (Reason: shortness of breath or wheezing) Qty: 6.7 0RF prednisone 20 mg tablet 20 mg PO BID Qty: 10 0RF Robitussin Cough-Chest Jarod DM 5-100 mg/5 mL liquid 10 ml PO Q4-8H PRN (Reason: cough) Qty: 118 0RF benzonatate 100 mg capsule 100 mg PO BID PRN (Reason: cough) Qty: 14 0RF diclofenac sodium 75 mg tablet,delayed release (DR/EC) 75 mg PO BID baclofen 20 mg tablet 20 mg PO TID gabapentin 600 mg tablet 600 mg PO BID PRN (Reason: Pain) lorazepam 1 mg tablet 1 mg PO DAILY PRN (Reason: Anxiety) fluticasone propionate 50 mcg/actuation spray,suspension 2 spray intranasal DAILY loratadine 10 mg capsule 10 mg PO DAILY paroxetine HCl [Paxil] 40 mg tablet 50 mg PO DAILY mirtazapine [Remeron] 15 mg tablet 15 mg PO DAILY norethindrone (contraceptive) [Ortho Micronor] 0.35 mg tablet 0.35 mg PO DAILY lactulose 10 gram/15 mL solution 10 g PO DAILY doxycycline hyclate 100 mg capsule 100 mg PO BID topiramate 50 mg tablet 50 mg PO BID methocarbamol 750 mg tablet 750 mg PO BEDTIME hydroxyzine pamoate 25 mg capsule 50 mg PO Referrals: Dory Ray MD [Primary Care Provider] -
[2021-12-13 08:38] LABS: UPreg QC Valid YES
[2021-12-13 08:40] LABS: Urine Pregnancy NEGATIVE (NEGATIVE)
[2021-12-13] MEDS: Phenazopyridine HCL 100 MG TABLET PO (09:17)
[2021-12-13] MEDS: Fluconazole 150 MG TABLET PO (09:17)
[2021-12-13] MEDS: Nitrofurantoin Monohyd/M-Cryst 100 MG CAPSULE PO (09:17)
== END 2021-12-13 09:24 | disposition home or self-care (01) ==
PROVIDERS: Emergency Provider Emergency Medicine; PCP Internal Medicine
DX: N30.00 Acute cystitis without hematuria (principal); R30.0 Dysuria; Z87.891 Personal history of nicotine dependence; Z79.899 Other long term (current) drug therapy
CPT/HCPCS: 81001; 81025; 99283; 99284

== ENCOUNTER 2021-12-15 08:26 | Emergency (ER) | payer MEDICAID, SELFPAY ==
--- NOTE | ~2021-12-15 | CT_ITS ---
EXAMINATION: CT ABDOMEN AND PELVIS WITHOUT CONTRAST CLINICAL INFORMATION: Flank pain COMPARISON: Previous CT of the abdomen and pelvis pelvic ultrasound March 2021 TECHNIQUE: Multidetector volumetric imaging was performed from the superior aspect of the liver through the pubic symphysis. Sagittal and coronal reformatted images were obtained on the technologist's workstation. This CT examination was performed using dose optimization techniques as appropriate, variously including the following: *Automated exposure control *Adjustment of mA and/or kV according to patient size (this includes techniques or standardized protocols for targeted exams where dose is matched to indication/reason for exam; i.e. extremities or head) *Use of iterative reconstruction technique DLP: 397 mGy-cm FINDINGS: LUNG BASES: The visualized lung bases are unremarkable. LIVER, GALLBLADDER, AND BILIARY TREE: The liver is normal in size, shape, and attenuation. There is a small calcification in the right lobe of liver axial image 19 series 3. No other focal hepatic lesion or biliary ductal dilatation is present. The gallbladder is unremarkable with no evidence of radiopaque gallstones, gallbladder wall thickening, or obvious pericholecystic inflammatory changes. PANCREAS: Unremarkable. SPLEEN: Unremarkable. ADRENAL GLANDS: Unremarkable. KIDNEYS AND URETERS: The kidneys are normal in size, shape, and attenuation. No hydronephrosis, hydroureter, or calculi seen. No perinephric stranding. BLADDER: Unremarkable. GASTROINTESTINAL TRACT: The small and large bowel are unremarkable. The appendix is unremarkable. ABDOMINAL WALL: No significant hernia is appreciated. LYMPH NODES: Normal. VASCULAR: Unremarkable. PELVIC VISCERA: Unremarkable. OSSEOUS STRUCTURES: Unremarkable. CT/CT abdomen pelvis wo IV con IMPRESSION: Unremarkable exam. Fleischner guidelines were followed.
[2021-12-15 08:30] VITALS: BP 120/80; PULSE 86; RESP 18; TEMP 36.8; O2SAT 98; BMI 23.3
[2021-12-15 08:46] LABS: Appearance Urine Clear; Color Urine Dark Yellow; Glucose Urine UA Negative (Negative); Leukocyte Esterase Urine Trace (Negative); Nitrite Urine Positive (Negative); UMIC TRIGGER UACC YES; Urine Blood Small (1+) (Negative); Urine Ketones Negative (Negative); Urine Protein Negative (Neg-Trace)
[2021-12-15 08:57] LABS: Hyaline Casts Urine 0-2 /LPF (0-2); UACC Culture Trigger YES; WBC Urine 0-5 /HPF (0-5)
[2021-12-15 08:59] LABS: Bacteria Urine Trace (None Seen)
--- NOTE | 2021-12-15 10:06 | ED.FEMALEGU ---
HPI - Female Genitourinary General Chief complaint: Urogenital-Female Stated complaint: lower abd pain/possible UTI Time Seen by Provider: 12/15/21 09:11 History of Present Illness HPI Narrative: Patient recently seen for UTI and treated with Macrobid complains that she has continuing bladder discomfort with urination as well as some low back pain worse on the left side She has no nausea no vomiting no fever Her back pain is worse with movement Related Data Home Medications Medication Instructions Recorded Confirmed loratadine 10 mg capsule 10 mg PO DAILY 02/20/20 04/17/21 paroxetine HCl 40 mg tablet (Paxil) 50 mg PO DAILY 02/20/20 04/17/21 mirtazapine 15 mg tablet (Remeron) 15 mg PO DAILY 05/13/20 04/17/21 baclofen 20 mg tablet 20 mg PO TID 01/06/21 04/17/21 diclofenac sodium 75 mg 75 mg PO BID 01/06/21 04/17/21 tablet,delayed release fluticasone propionate 50 2 spray intranasal DAILY 01/06/21 04/17/21 mcg/actuation nasal spray,suspension gabapentin 600 mg tablet 600 mg PO BID PRN Pain 01/06/21 04/17/21 lorazepam 1 mg tablet 1 mg PO DAILY PRN Anxiety 01/06/21 04/17/21 doxycycline hyclate 100 mg capsule 100 mg PO BID 02/09/21 04/17/21 lactulose 10 gram/15 mL oral 10 g PO DAILY 02/09/21 04/17/21 solution methocarbamol 750 mg tablet 750 mg PO BEDTIME 02/09/21 02/09/21 norethindrone (contraceptive) 0.35 0.35 mg PO DAILY 02/09/21 04/17/21 mg tablet (Ortho Micronor) topiramate 50 mg tablet 50 mg PO BID 02/09/21 02/09/21 hydroxyzine pamoate 25 mg capsule 50 mg PO 10/29/21 Previous Rx's Medication Instructions Recorded cyclobenzaprine 10 mg tablet 10 mg PO TID #10 tabs 10/26/20 naproxen 500 mg tablet (Naprosyn) 500 mg PO BID #20 tabs 10/26/20 albuterol sulfate 90 mcg/actuation 2 puff inhalation Q6H PRN 11/14/20 aerosol inhaler shortness of breath or wheezing #8.5 grams prednisone 20 mg tablet 60 mg PO DAILY asthma flare 5 days 11/14/20 #15 tabs lidocaine 5 % topical patch 1 patch topical DAILY PRN pain #30 12/08/20 (Lidoderm) ea barium sulfate 2 % (w/v) oral 900 ml PO ONCE #900 mL 01/21/21 suspension (Readi-Cat 2) benzonatate 100 mg capsule 100 mg PO BID PRN cough #14 caps 01/30/21 (Vickey Cartwright) tramadol 50 mg tablet 50 mg PO Q8H PRN pain #14 tabs 03/24/21 albuterol sulfate 90 mcg/actuation 1 inh inhalation QID PRN shortness 07/19/21 aerosol inhaler of breath or wheezing #6.7 grams oseltamivir 75 mg capsule (Tamiflu) 75 mg PO BID 5 days #10 caps 07/19/21 prednisone 20 mg tablet 20 mg PO BID #10 tabs 07/19/21 benzonatate 100 mg capsule 100 mg PO BID PRN cough #14 caps 07/21/21 dextromethorphan-guaifenesin 5 10 ml PO Q4-8H PRN cough #118 mL 07/21/21 mg-100 mg/5 mL oral liquid (Robitussin Cough-Chest Congestion DM) nitrofurantoin 100 mg PO Q12H 5 days #10 caps 12/13/21 monohydrate/macrocrystals 100 mg capsule (Macrobid) phenazopyridine 100 mg tablet 100 mg PO TID PRN pain 6 doses #6 12/13/21 (Pyridium) tabs cefuroxime axetil 250 mg tablet 250 mg PO BID 7 days #14 tabs 12/15/21 ibuprofen 600 mg tablet 600 mg PO Q6H PRN pain #20 tabs 12/15/21 oxycodone 5 mg tablet 5 mg PO Q6H PRN pain #7 tabs 12/15/21 phenazopyridine 200 mg tablet 200 mg PO TID PRN Urinary 12/15/21 (Pyridium) discomfort 6 doses #6 tabs Allergies Allergy/AdvReac Type Severity Reaction Status Date / Time dust Allergy Mild unknown Uncoded 07/19/21 07:51 Review of Systems Review of Systems: Positive for dysuria and back pain Negatives are no fever no chills no dizziness no weakness no fainting no feeling faint no headache no neck pain no chest pain no abdominal pain no numbness weakness or tingling no incontinence no skin rash Yes all other systems are reviewed and are negative [facility] Past Medical History Source: nursing notes reviewed Medical History Anxiety and depression Arthritis Asthma Chronic pain syndrome COVID-19 Depression Disc degeneration, lumbar Fibromyalgia Migraines Seasonal allergies Spondylosis of lumbar spine Surgical History H/O LEEP History of bilateral tubal ligation History of carpal tunnel release History of salpingo-oophorectomy Hx of colonoscopy Family History Family History Sister History of breast cancer, Onset Age: 52 Brother History of bone cancer History of blood disorder History of brain cancer Paternal Aunt History of cancer of uterus Social History Social History Alcohol intake: never Patient Tobacco Use Status: Former Tobacco user Cigarettes Per Day: 8 Advance Directives: No Advance Directives Information Provided: No Sexual orientation: Straight/Heterosexual Gender identity: Female Physical Exam Vital Signs: Vital Signs: Last Vital Signs Temp 98.2 F 12/15/21 08:30 Pulse 86 12/15/21 08:30 Resp 18 12/15/21 08:30 BP 120/80 12/15/21 08:30 Pulse Ox 98 12/15/21 08:30 O2 Del Method 12/15/21 08:30 BMI result Body Mass Index 23.3 General appearance no acute distress Head is normocephalic atraumatic Eyes anicteric no pallor The neck is supple The pharynx is clear moist and well hydrated The chest is clear to auscultation bilateral The abdomen there is some tenderness in the suprapubic area and some flank tenderness on the right side Extremities full range of motion x4 Legs no swelling Skin no rash Course Course Course Narrative: CT scan was done to rule out kidney stones, no acute pathology was noted Urinalysis was consistent with infection Antibiotic was changed as patient has been taking Macrobid but has persistent symptoms and so it was changed to cefuroxime, urine culture was not back from previous visit and well-appearing patient was discharged [facility] - Female Genitourinary Lab Data Attestation: I reviewed the patient's lab results. Result diagrams: 12/15/21 10:27 12/15/21 10:27 Labs: Lab Results 12/15/21 12/15/21 12/15/21 Range/Units 08:39 10:27 10:27 WBC 8.1 (4.8-10.8) X10*3/uL RBC 4.20 (4.20-5.50) X10*6/uL Hgb 13.1 (12.0-16.0) g/dl Hct 38.6 (37.0-47.0) % MCV 91.9 (80.0-98.0) fL MCH 31.2 (27.0-33.0) pg MCHC 33.9 (31.0-35.0) g/dl RDW 13.1 (11.0-16.0) % Plt Count 218 (160-400) X10*3/uL MPV 9.3 L (9.4-12.3) fL Immature Gran % (Auto) 0.4 (0.0-0.4) % Neut % (Auto) 60.8 (45-73) % Lymph % (Auto) 31.2 (20-40) % [place] % (Auto) 6.7 (2-11) % Eos % (Auto) 0.7 (0-4) % Baso % (Auto) 0.2 (0-2) % Lymph # (Auto) 2.5 (1.2-4.9) X10*3/uL [place] # (Auto) 0.5 (0.1-1.2) X10*3/uL Eos # (Auto) 0.1 (0.0-0.4) X10*3/uL Baso # (Auto) 0.0 (0.0-0.2) X10*3/uL Abs Immat Gran (auto) 0.03 (0.00-0.03) X10*3/uL Absolute Neuts (auto) 4.9 (2.0-8.3) x10*3/uL Absolute Nucleated RBC 0.000 (0.0-0.012) X10*3/uL Nucleated RBC % (auto) 0.0 (0.0-0.2) /100WBC Sodium 137 (135-145) mmol/L Potassium 4.0 (3.3-5.1) mmol/L Chloride 101 (96-108) mmol/L Carbon Dioxide 29 (22-29) mmol/L Anion Gap 11 L (12-20) BUN 7 L (9-16) mg/dL Creatinine 0.72 (0.5-1.4) mg/dL Estim Creat Clear Calc 82.5 Estimated GFR > 60 Random Glucose 89 (60-115) mg/dL Calcium 9.1 (8.4-10.2) mg/dL Total Bilirubin 0.4 (0.0-1.0) mg/dL Direct Bilirubin 0.2 (0.0-0.5) mg/dL AST 14 (5-31) U/L ALT 9 (0-31) U/L Alkaline Phosphatase 41 (39-117) U/L Total Protein 6.8 (6.5-8.0) g/dL Albumin 4.2 (3.5-5.0) g/dL Lipase 27 (8-78) U/L Urine Color Dark Yellow Urine Appearance Clear Urine pH 6.0 (5.0-9.0) Ur Specific [place] 1.010 (1.005-1.025) Urine Protein Negative (Neg-Trace) mg/dL Urine Glucose (UA) Negative (Negative) mg/dL Urine Ketones Negative (Negative) mg/dL Urine Blood Small (1+) H (Negative) Urine Nitrite Positive H (Negative) Ur Leukocyte Esterase Trace H (Negative) Urine RBC 3-5 H (0-2) /HPF Urine WBC 0-5 (0-5) /HPF Ur Squamous Epith Cells 6-10 (0-2) /HPF Urine Bacteria Trace (None Seen) Hyaline Casts 0-2 (0-2) /LPF Discharge Plan Discharge Clinical Impression: UTI (urinary tract infection), Back pain Patient Disposition: Home, Self-Care Additional Instructions: As you are still having symptoms after taking antibiotic Macrobid for urine infection we are changing it to cefuroxime which is a different antibiotic You can use Pyridium which is often helpful for bladder pain the low back pain may be unrelated to your urine infection, so use Motrin and if needed the oxycodone for this pain Follow with her doctor Return any time for fever vomiting weakness any change or worsening pain any worse condition or any concerns Urinalysis did show that you likely still have a urine infection, otherwise there were no significant lab abnormalities The CT scan did not reveal any kidney stones or any dangerous condition Prescriptions: New cefuroxime axetil 250 mg tablet 250 mg PO BID 7 Days Qty: 14 0RF phenazopyridine [Pyridium] 200 mg tablet 200 mg PO TID PRN (Reason: Urinary discomfort) Qty: 6 0RF ibuprofen 600 mg tablet 600 mg PO Q6H PRN (Reason: pain) Qty: 20 0RF oxycodone 5 mg tablet 5 mg PO Q6H PRN (Reason: pain) Qty: 7 0RF Rx Instructions: Partial Fill upon patient request. No Action Readi-Cat 2 2 % (w/v) suspension 900 ml PO ONCE Qty: 900 0RF cyclobenzaprine 10 mg tablet 10 mg PO TID Qty: 10 0RF naproxen [Naprosyn] 500 mg tablet 500 mg PO BID Qty: 20 0RF prednisone 20 mg tablet 60 mg PO DAILY 5 Days Qty: 15 0RF albuterol sulfate 90 mcg/actuation HFA aerosol inhaler 2 puff inhalation Q6H PRN (Reason: shortness of breath or wheezing) Qty: 8.5 0RF lidocaine [Lidoderm] 5 % adhesive patch,medicated 1 patch topical DAILY MDD remove after 12 hours PRN (Reason: pain) Qty: 30 0RF Rx Instructions: leave on most painful area for up to 12 hrs benzonatate [Tessalon Perles] 100 mg capsule 100 mg PO BID PRN (Reason: cough) Qty: 14 0RF tramadol 50 mg tablet 50 mg PO Q8H PRN (Reason: pain) Qty: 14 0RF oseltamivir [Tamiflu] 75 mg capsule 75 mg PO BID 5 Days Qty: 10 0RF albuterol sulfate 90 mcg/actuation HFA aerosol inhaler 1 inh inhalation QID PRN (Reason: shortness of breath or wheezing) Qty: 6.7 0RF prednisone 20 mg tablet 20 mg PO BID Qty: 10 0RF Robitussin Cough-Chest Jarod DM 5-100 mg/5 mL liquid 10 ml PO Q4-8H PRN (Reason: cough) Qty: 118 0RF benzonatate 100 mg capsule 100 mg PO BID PRN (Reason: cough) Qty: 14 0RF nitrofurantoin monohyd/m-cryst [Macrobid] 100 mg capsule 100 mg PO Q12H 5 Days Qty: 10 0RF Rx Instructions: must administer with a meal/food phenazopyridine [Pyridium] 100 mg tablet 100 mg PO TID PRN (Reason: pain) Qty: 6 0RF diclofenac sodium 75 mg tablet,delayed release (DR/EC) 75 mg PO BID baclofen 20 mg tablet 20 mg PO TID gabapentin 600 mg tablet 600 mg PO BID PRN (Reason: Pain) lorazepam 1 mg tablet 1 mg PO DAILY PRN (Reason: Anxiety) fluticasone propionate 50 mcg/actuation spray,suspension 2 spray intranasal DAILY loratadine 10 mg capsule 10 mg PO DAILY paroxetine HCl [Paxil] 40 mg tablet 50 mg PO DAILY mirtazapine [Remeron] 15 mg tablet 15 mg PO DAILY norethindrone (contraceptive) [Ortho Micronor] 0.35 mg tablet 0.35 mg PO DAILY lactulose 10 gram/15 mL solution 10 g PO DAILY doxycycline hyclate 100 mg capsule 100 mg PO BID topiramate 50 mg tablet 50 mg PO BID methocarbamol 750 mg tablet 750 mg PO BEDTIME hydroxyzine pamoate 25 mg capsule 50 mg PO Interventions: ED Discharge Assessment Last Done: 12/15/21 11:43 Discharge Date/Time: 12/15/21 11:43
[2021-12-15 10:36] LABS: MANUAL DIFF FLAG NO
[2021-12-15 10:37] LABS: Basophils Percent Auto 0.2 % (0-2); Eosinophils Absolute Auto 0.1 X10*3/uL (0.0-0.4); Eosinophils Percent Auto 0.7 % (0-4); Hematocrit 38.6 % (37.0-47.0); Hemoglobin 13.1 g/dl (12.0-16.0); Imm Gran Abs Auto 0.03 X10*3/uL (0.00-0.03); Imm Gran Pct Auto 0.4 % (0.0-0.4); Lymphocytes Absolute Auto 2.5 X10*3/uL (1.2-4.9); Lymphocytes Percent Auto 31.2 % (20-40); Mean Corpuscular HGB Conc 33.9 g/dl (31.0-35.0); Mean Corpuscular Hemoglobin 31.2 pg (27.0-33.0); Mean Corpuscular Volume 91.9 fL (80.0-98.0); Mean Platelet Volume 9.3 fL (9.4-12.3); Monocytes Absolute Auto 0.5 X10*3/uL (0.1-1.2); Monocytes Percent Auto 6.7 % (2-11); Neutrophils Absolute Auto 4.9 x10*3/uL (2.0-8.3); Neutrophils Percent Auto 60.8 % (45-73); Platelet Count 218 X10*3/uL (160-400); Red Cell Distribution Width 13.1 % (11.0-16.0); White Blood Count 8.1 X10*3/uL (4.8-10.8)
[2021-12-15 10:53] LABS: Alanine Aminotransferase 9 U/L (0-31); Albumin Level 4.2 g/dL (3.5-5.0); Alkaline Phosphatase 41 U/L (39-117); Anion Gap 11 (12-20); Aspartate Amino Transferase 14 U/L (5-31); Bilirubin Direct 0.2 mg/dL (0.0-0.5); Bilirubin Total 0.4 mg/dL (0.0-1.0); Blood Urea Nitrogen 7 mg/dL (9-16); Calcium 9.1 mg/dL (8.4-10.2); Carbon Dioxide 29 mmol/L (22-29); Chloride 101 mmol/L (96-108); Creatinine Clr Calc Pharmacy 82.5; Estimated Glomerular Filt Rate > 60; Glucose Random 89 mg/dL (60-115); Lipase 27 U/L (8-78); Sodium 137 mmol/L (135-145); Total Protein 6.8 g/dL (6.5-8.0)
[2021-12-15] MEDS: Ibuprofen 600 MG TABLET PO (11:41)
== END 2021-12-15 11:43 | disposition home or self-care (01) ==
PROVIDERS: Emergency Provider Emergency Medicine
DX: N39.0 Urinary tract infection, site not specified (principal); B96.89 Other specified bacterial agents as the cause of diseases classified elsewhere; M54.50 Low back pain, unspecified; Z87.891 Personal history of nicotine dependence; Z79.899 Other long term (current) drug therapy
CPT/HCPCS: 36415; 74176; 80048; 80076; 81001; 83690; 85025; 87086; 99283; 99284

== ENCOUNTER 2021-12-21 16:09 | Emergency (ER) | payer MEDICAID, SELFPAY ==
[2021-12-21 16:11] VITALS: BP 114/89; BP 138/100; PULSE 72; PULSE 80; RESP 18; TEMP 36.6; O2SAT 95; O2SAT 98; BMI 23.3
--- NOTE | 2021-12-21 16:12 | ECG_ITS ---
Test Reason : chest pain Blood Pressure : / mmHG Vent. Rate : 069 BPM Atrial Rate : 069 BPM P-R Int : 140 ms QRS Dur : 082 ms QT Int : 380 ms P-R-T Axes : 064 041 029 degrees QTc Int : 407 ms Normal sinus rhythm Normal ECG When compared with ECG of 21-JUL-2021 09:57, No significant change was found Referred By: Generic ED Physician Electronically Signed By:SARITHA SUNG
[2021-12-21 16:30] LABS: MANUAL DIFF FLAG NO
[2021-12-21 16:39] LABS: Basophils Percent Auto 0.3 % (0-2); Eosinophils Absolute Auto 0.1 X10*3/uL (0.0-0.4); Eosinophils Percent Auto 0.9 % (0-4); Hematocrit 35.6 % (37.0-47.0); Hemoglobin 12.2 g/dl (12.0-16.0); Imm Gran Abs Auto 0.02 X10*3/uL (0.00-0.03); Imm Gran Pct Auto 0.2 % (0.0-0.4); Lymphocytes Absolute Auto 3.2 X10*3/uL (1.2-4.9); Lymphocytes Percent Auto 36.2 % (20-40); Mean Corpuscular HGB Conc 34.3 g/dl (31.0-35.0); Mean Corpuscular Hemoglobin 32.1 pg (27.0-33.0); Mean Corpuscular Volume 93.7 fL (80.0-98.0); Monocytes Absolute Auto 0.6 X10*3/uL (0.1-1.2); Monocytes Percent Auto 6.2 % (2-11); Neutrophils Percent Auto 56.2 % (45-73); Platelet Count 210 X10*3/uL (160-400); Red Cell Distribution Width 12.6 % (11.0-16.0); White Blood Count 8.9 X10*3/uL (4.8-10.8)
[2021-12-21 16:50] LABS: Alanine Aminotransferase 9 U/L (0-31); Albumin Level 4.2 g/dL (3.5-5.0); Alkaline Phosphatase 43 U/L (39-117); Anion Gap 12 (12-20); Aspartate Amino Transferase 15 U/L (5-31); Bilirubin Total 0.5 mg/dL (0.0-1.0); Blood Urea Nitrogen 9 mg/dL (9-16); Calcium 9.4 mg/dL (8.4-10.2); Carbon Dioxide 27 mmol/L (22-29); Chloride 101 mmol/L (96-108); Creatinine Clr Calc Pharmacy 75.1; Estimated Glomerular Filt Rate > 60; Glucose Random 93 mg/dL (60-115); Potassium 3.5 mmol/L (3.3-5.1); Sodium 136 mmol/L (135-145)
[2021-12-21 16:54] LABS: Troponin-I High Sensitivity < 3.5 ng/L (<3.5-17.0)
--- NOTE | 2021-12-21 21:17 | PC.NURSE ---
called x3 to triage for reassessment. No answer Presumed LWT at this time.
== END 2021-12-21 21:26 | disposition left against medical advice (07) ==
PROVIDERS: Emergency Provider Emergency Medicine
DX: R07.9 Chest pain, unspecified (principal); R10.13 Epigastric pain
CPT/HCPCS: 36415; 80053; 84484; 85025; 93005; 99283

== ENCOUNTER 2021-12-22 07:43 | Emergency (ER) | payer MEDICAID, SELFPAY ==
--- NOTE | ~2021-12-22 | XR_ITS ---
EXAMINATION: XR CHEST CLINICAL INFORMATION: Chest pain. COMPARISON: 07/21/2021 chest radiographs. TECHNIQUE: 2 views of the chest were obtained. FINDINGS: No significant abnormality is noted involving the heart, lungs, mediastinum, bony thorax or soft tissues. XR/XR chest 2V IMPRESSION: No acute cardiopulmonary process.
--- NOTE | 2021-12-22 07:48 | ECG_ITS ---
Test Reason : chest pain Blood Pressure : / mmHG Vent. Rate : 074 BPM Atrial Rate : 074 BPM P-R Int : 138 ms QRS Dur : 086 ms QT Int : 372 ms P-R-T Axes : 064 054 046 degrees QTc Int : 412 ms Normal sinus rhythm Normal ECG When compared with ECG of 21-DEC-2021 16:16, No significant change was found Referred By: Generic ED Physician Electronically Signed By:SARITHA SUNG
[2021-12-22 07:51] VITALS: BP 117/56; PULSE 84; RESP 18; TEMP 36.6; O2SAT 98; BMI 25.7
--- NOTE | 2021-12-22 10:29 | ED.GENADULT ---
HPI - General Adult General Chief complaint: General Medical Stated complaint: chest pain Time Seen by Provider: 12/22/21 10:29 Source: patient Mode of arrival: ambulatory Limitations: no limitations History of Present Illness HPI narrative: chest pain started 3 days ago, no fever no cough. Patient had chest pain in the past. No history of heart problems Onset (ago): day(s) Location: chest Severity: mild Relieving factors: none Exacerbating factors: movement Associated symptoms: denies other symptoms Related Data Home Medications Medication Instructions Recorded Confirmed loratadine 10 mg capsule 10 mg PO DAILY 02/20/20 04/17/21 paroxetine HCl 40 mg tablet (Paxil) 50 mg PO DAILY 02/20/20 04/17/21 mirtazapine 15 mg tablet (Remeron) 15 mg PO DAILY 05/13/20 04/17/21 baclofen 20 mg tablet 20 mg PO TID 01/06/21 04/17/21 diclofenac sodium 75 mg 75 mg PO BID 01/06/21 04/17/21 tablet,delayed release fluticasone propionate 50 2 spray intranasal DAILY 01/06/21 04/17/21 mcg/actuation nasal spray,suspension gabapentin 600 mg tablet 600 mg PO BID PRN Pain 01/06/21 04/17/21 lorazepam 1 mg tablet 1 mg PO DAILY PRN Anxiety 01/06/21 04/17/21 doxycycline hyclate 100 mg capsule 100 mg PO BID 02/09/21 04/17/21 lactulose 10 gram/15 mL oral 10 g PO DAILY 02/09/21 04/17/21 solution methocarbamol 750 mg tablet 750 mg PO BEDTIME 02/09/21 02/09/21 norethindrone (contraceptive) 0.35 0.35 mg PO DAILY 02/09/21 04/17/21 mg tablet (Ortho Micronor) topiramate 50 mg tablet 50 mg PO BID 02/09/21 02/09/21 hydroxyzine pamoate 25 mg capsule 50 mg PO 10/29/21 Previous Rx's Medication Instructions Recorded cyclobenzaprine 10 mg tablet 10 mg PO TID #10 tabs 10/26/20 naproxen 500 mg tablet (Naprosyn) 500 mg PO BID #20 tabs 10/26/20 albuterol sulfate 90 mcg/actuation 2 puff inhalation Q6H PRN 11/14/20 aerosol inhaler shortness of breath or wheezing #8.5 grams prednisone 20 mg tablet 60 mg PO DAILY asthma flare 5 days 11/14/20 #15 tabs lidocaine 5 % topical patch 1 patch topical DAILY PRN pain #30 12/08/20 (Lidoderm) ea barium sulfate 2 % (w/v) oral 900 ml PO ONCE #900 mL 01/21/21 suspension (Readi-Cat 2) benzonatate 100 mg capsule 100 mg PO BID PRN cough #14 caps 01/30/21 (Tessalon Chay) tramadol 50 mg tablet 50 mg PO Q8H PRN pain #14 tabs 03/24/21 albuterol sulfate 90 mcg/actuation 1 inh inhalation QID PRN shortness 07/19/21 aerosol inhaler of breath or wheezing #6.7 grams oseltamivir 75 mg capsule (Tamiflu) 75 mg PO BID 5 days #10 caps 07/19/21 prednisone 20 mg tablet 20 mg PO BID #10 tabs 07/19/21 benzonatate 100 mg capsule 100 mg PO BID PRN cough #14 caps 07/21/21 dextromethorphan-guaifenesin 5 10 ml PO Q4-8H PRN cough #118 mL 07/21/21 mg-100 mg/5 mL oral liquid (Robitussin Cough-Chest Congestion DM) nitrofurantoin 100 mg PO Q12H 5 days #10 caps 12/13/21 monohydrate/macrocrystals 100 mg capsule (Macrobid) phenazopyridine 100 mg tablet 100 mg PO TID PRN pain 6 doses #6 12/13/21 (Pyridium) tabs cefuroxime axetil 250 mg tablet 250 mg PO BID 7 days #14 tabs 12/15/21 ibuprofen 600 mg tablet 600 mg PO Q6H PRN pain #20 tabs 12/15/21 oxycodone 5 mg tablet 5 mg PO Q6H PRN pain #7 tabs 12/15/21 phenazopyridine 200 mg tablet 200 mg PO TID PRN Urinary 12/15/21 (Pyridium) discomfort 6 doses #6 tabs naproxen 500 mg tablet (Naprosyn) 500 mg PO BID #20 tabs 12/22/21 Allergies Allergy/AdvReac Type Severity Reaction Status Date / Time dust Allergy Mild unknown Uncoded 07/19/21 07:51 Review of Systems Constitutional: Constitutional: Reports no additional constitutional complaints Eyes: Eyes: Reports no additional eye complaints ENT: Denies dizziness Cardiovascular: Cardiovascular: Reports no additional cardiovascular complaints Respiratory: Respiratory: Reports as per HPI Gastrointestinal: Gastrointestinal: Reports no additional gastrointestinal complaints Genitourinary: Genitourinary: Reports no additional female genitourinary complaints Musculoskeletal: Musculoskeletal: Reports no additional musculoskeletal complaints Integumentary/Breasts: Skin/Breast: Denies rash Neurologic: Reports system reviewed and no additional complaints, except as documented, Denies dizziness and Denies Sensory deficit (Neuro) Psychiatric: Psychiatric: Denies anxiety PMFSH Past Medical History Medical History Anxiety and depression Arthritis Asthma Chronic pain syndrome COVID-19 Depression Disc degeneration, lumbar Fibromyalgia Migraines Seasonal allergies Spondylosis of lumbar spine Surgical History H/O LEEP History of bilateral tubal ligation History of carpal tunnel release History of salpingo-oophorectomy Hx of colonoscopy Family History Family History Sister History of breast cancer, Onset Age: 52 Brother History of bone cancer History of blood disorder History of brain cancer Paternal Aunt History of cancer of uterus Social History Social History Alcohol intake: never Patient Tobacco Use Status: Former Tobacco user Cigarettes Per Day: 8 Advance Directives: No Advance Directives Information Provided: No Sexual orientation: Straight/Heterosexual Gender identity: Female Physical Exam ED Vital Signs: Vital Signs - 24 hr 12/22/21 07:51 12/22/21 11:13 Temperature 98 F 98.5 F Pulse Rate 84 65 Respiratory Rate 18 14 Blood Pressure 117/56 L 113/60 Pulse Oximetry 98 98 Oxygen Delivery Method Room Air Room Air BMI result Body Mass Index 25.7 Const Other: anxious General: healthy appearing Nutritional Appearance: average body habitus Orientation/consciousness: oriented to person and patient oriented x3 Limitations: no limitations HENMT Head: Yes normal to inspection Ears: external ears normal General nose exam: Normal external nose present Mouth: Normal oral and palatal mucosa present and oropharynx normal Throat: Yes posterior oropharynx normal Eyes General: appearance normal, both eyes and all related structures Neck Neck: Yes normal visual inspection Chest Other: reproducible pain to palpation Resp Auscultation: clear to auscultation bilaterally Cardio Jugular venous distension: no JVD Rate: regular rate Rhythm: regular rhythm Heart sounds: S1 normal heart sound present and S2 normal heart sound present GI Inspection: Yes normal to inspection Palpation (GI): Soft to palpation, nontender and No hepatosplenomegaly present Auscultation: normal bowel sounds General: Yes no CVA tenderness Back/Spine/Pelvis Back: no CVA tenderness Skin General skin exam: no rashes or lesions noted Neuro General: oriented to person and patient oriented x3 Cranial nerves: Yes CN's II-XII intact bilaterally Motor exam (neuro): 5/5 motor strength present throughout Sensory Exam: No Sensory deficit (Neuro) Extrem General: Yes normal to inspection Psych Appearance: grossly normal Course Reevaluation(s) Reevaluation #1: patient with chronic pain syndrome, exam and history likely costrochondritis, will dc on naprosyn Time: 11:38 Medical Decision Making Imaging Data Chest x-ray: Radiologist's impression: FINDINGS: No significant abnormality is noted involving the heart, lungs, mediastinum, bony thorax or soft tissues. ECG Data Attestation: I personally reviewed and interpreted this ECG as follows: Interpretation: sinus rate 75, no st or twave changes Discharge Plan Discharge Clinical Impression: Acute costochondritis Patient Disposition: Home, Self-Care Instructions: Costochondritis (ED), Thoracic Pain (ED) Prescriptions: New naproxen [Naprosyn] 500 mg tablet 500 mg PO BID Qty: 20 0RF No Action Readi-Cat 2 2 % (w/v) suspension 900 ml PO ONCE Qty: 900 0RF cyclobenzaprine 10 mg tablet 10 mg PO TID Qty: 10 0RF naproxen [Naprosyn] 500 mg tablet 500 mg PO BID Qty: 20 0RF prednisone 20 mg tablet 60 mg PO DAILY 5 Days Qty: 15 0RF albuterol sulfate 90 mcg/actuation HFA aerosol inhaler 2 puff inhalation Q6H PRN (Reason: shortness of breath or wheezing) Qty: 8.5 0RF lidocaine [Lidoderm] 5 % adhesive patch,medicated 1 patch topical DAILY MDD remove after 12 hours PRN (Reason: pain) Qty: 30 0RF Rx Instructions: leave on most painful area for up to 12 hrs benzonatate [Tessalon Perles] 100 mg capsule 100 mg PO BID PRN (Reason: cough) Qty: 14 0RF cefuroxime axetil 250 mg tablet 250 mg PO BID 7 Days Qty: 14 0RF phenazopyridine [Pyridium] 200 mg tablet 200 mg PO TID PRN (Reason: Urinary discomfort) Qty: 6 0RF ibuprofen 600 mg tablet 600 mg PO Q6H PRN (Reason: pain) Qty: 20 0RF oxycodone 5 mg tablet 5 mg PO Q6H PRN (Reason: pain) Qty: 7 0RF Rx Instructions: Partial Fill upon patient request. tramadol 50 mg tablet 50 mg PO Q8H PRN (Reason: pain) Qty: 14 0RF oseltamivir [Tamiflu] 75 mg capsule 75 mg PO BID 5 Days Qty: 10 0RF albuterol sulfate 90 mcg/actuation HFA aerosol inhaler 1 inh inhalation QID PRN (Reason: shortness of breath or wheezing) Qty: 6.7 0RF prednisone 20 mg tablet 20 mg PO BID Qty: 10 0RF Robitussin Cough-Chest Jarod DM 5-100 mg/5 mL liquid 10 ml PO Q4-8H PRN (Reason: cough) Qty: 118 0RF benzonatate 100 mg capsule 100 mg PO BID PRN (Reason: cough) Qty: 14 0RF nitrofurantoin monohyd/m-cryst [Macrobid] 100 mg capsule 100 mg PO Q12H 5 Days Qty: 10 0RF Rx Instructions: must administer with a meal/food phenazopyridine [Pyridium] 100 mg tablet 100 mg PO TID PRN (Reason: pain) Qty: 6 0RF diclofenac sodium 75 mg tablet,delayed release (DR/EC) 75 mg PO BID baclofen 20 mg tablet 20 mg PO TID gabapentin 600 mg tablet 600 mg PO BID PRN (Reason: Pain) lorazepam 1 mg tablet 1 mg PO DAILY PRN (Reason: Anxiety) fluticasone propionate 50 mcg/actuation spray,suspension 2 spray intranasal DAILY loratadine 10 mg capsule 10 mg PO DAILY paroxetine HCl [Paxil] 40 mg tablet 50 mg PO DAILY mirtazapine [Remeron] 15 mg tablet 15 mg PO DAILY norethindrone (contraceptive) [Ortho Micronor] 0.35 mg tablet 0.35 mg PO DAILY lactulose 10 gram/15 mL solution 10 g PO DAILY doxycycline hyclate 100 mg capsule 100 mg PO BID topiramate 50 mg tablet 50 mg PO BID methocarbamol 750 mg tablet 750 mg PO BEDTIME hydroxyzine pamoate 25 mg capsule 50 mg PO Referrals: Dory Ray MD [Primary Care Provider] - 1 week
[2021-12-22] MEDS: Ketorolac Tromethamine 60 MG/2 ML VIAL IM (10:41)
[2021-12-22 11:13] VITALS: BP 113/60; PULSE 65; RESP 14; TEMP 36.9; O2SAT 98
== END 2021-12-22 12:17 | disposition home or self-care (01) ==
PROVIDERS: Emergency Provider Emergency Medicine; PCP Internal Medicine
DX: M94.0 Chondrocostal junction syndrome [Tietze] (principal); R07.89 Other chest pain; Z79.899 Other long term (current) drug therapy
CPT/HCPCS: 71046; 93005; 96372; 99284; J1885

== ENCOUNTER 2021-12-30 12:31 | Outpatient (REF) | payer MEDICAID, SELFPAY ==
--- NOTE | ~2021-12-30 | US_ITS ---
EXAMINATION: US LOWER EXTREMITY VENOUS (REFLUX EXAM), BILATERAL CLINICAL INDICATION: Varicose veins COMPARISON: None. TECHNIQUE: Color flow triplex imaging and compression Doppler was performed to evaluate both the deep and the superficial systems bilaterally. To evaluate the superficial system, the examination was performed in the upright position. Color-flow Doppler ultrasound and compression ultrasound were utilized. In addition, maneuvers were utilized to demonstrate reflux. FINDINGS: 1. DEEP VENOUS ULTRASOUND OF THE RIGHT LOWER EXTREMITY: Common Femoral Vein: Compressible, normal respiratory variation and augmented flow. Femoral Vein: Compressible, normal color flow and augmentation. Popliteal Vein: Compressible, normal augmentation. Deep Reflux: There is no evidence of reflux in the deep system in either the common femoral vein or the popliteal vein. There is no evidence of a Martinez's cyst. 2. SUPERFICIAL ULTRASOUND WITH DOPPLER OF RIGHT LOWER EXTREMITY: GREAT SAPHENOUS VEIN: Saphenofemoral Junction: 0.5 cm; Reflux: 0 ms Proximal Thigh: 0.3 cm; Reflux: 0 ms Mid Thigh: 0.2 cm; Reflux: 0 ms Above Knee: 0.3 cm; Reflux: 0 ms At Knee: 0.4 cm; Reflux: 0 ms Below Knee: 0.2 cm; Reflux: 428 ms Mid Calf: 0.1 cm; Reflux: 0 ms Ankle: 0.1 cm; Reflux: 0 ms DUPLICATED MEDIAL GREAT SAPHENOUS VEIN: Diameter: None Imaged Reflux: NA DUPLICATED LATERAL GREAT SAPHENOUS VEIN: Diameter: None Imaged Reflux: NA SMALL SAPHENOUS VEIN: Proximal: 0.2 cm; Reflux: 0 ms Distal: 0.1 cm; Reflux: 0 ms VEIN OF GIACOMINI: None Imaged. PERFORATORS: Location: Proximal calf and mid thigh Size: 0.2cm Reflux: NA VARICOSITIES: Location: None Imaged Size: NA Reflux: NA 3. DEEP VENOUS ULTRASOUND OF THE LEFT LOWER EXTREMITY: Common Femoral Vein: Compressible, normal respiratory variation and augmented flow. Femoral Vein: Compressible, normal color flow and augmentation. Popliteal Vein: Compressible, normal augmentation. Deep Reflux: There is no evidence of reflux in the deep system in either the common femoral vein or the popliteal vein. There is no evidence of a Martinez's cyst. 4. SUPERFICIAL ULTRASOUND WITH DOPPLER OF LEFT LOWER EXTREMITY: GREAT SAPHENOUS VEIN: Saphenofemoral Junction: 0.7 cm; Reflux: 0 ms Proximal Thigh: 0.4 cm; Reflux: 0 ms Mid Thigh: 0.2 cm; Reflux: 0 ms Above Knee: 0.2 cm; Reflux: 0 ms At Knee: 0.2 cm; Reflux: 0 ms Below Knee: 0.2 cm; Reflux: 0 ms Mid Calf: 0.08 cm; Reflux: 0 ms Ankle: 0.09 cm; Reflux: 0 ms DUPLICATED MEDIAL GREAT SAPHENOUS VEIN: Diameter: None Imaged Reflux: NA DUPLICATED LATERAL GREAT SAPHENOUS VEIN: Diameter: 0.2 cm Reflux: NA SMALL SAPHENOUS VEIN: Proximal: 0.2 cm; Reflux: 0 ms Distal: 0.1 cm; Reflux: 0 ms VEIN OF GIACOMINI: None Imaged. PERFORATORS: Location: MID thigh Size: 0.2 cm Reflux: NA VARICOSITIES: Location: Lateral calf Size: 0.1 cm Reflux: 1172 ms US/US venous duplex LE BI IMPRESSION: Right: Minimal reflux in the right great saphenous vein below the knee. Multiple small mid thigh and calf perforators. Left: No reflux in the great saphenous vein. There is a mid thigh fuel buyer and a proximal lateral calf varicose vein with reflux.
== END 2021-12-30 12:32 | disposition home or self-care (01) ==
LOC: HO.US 12:31
PROVIDERS: Visit Provider Surgery Vascular Surgery
DX: I83.12 Varicose veins of left lower extremity with inflammation (principal)
CPT/HCPCS: 93970

== ENCOUNTER → 2022-01-07 10:26 | Outpatient (BNVA) | payer MEDICAID, SELFPAY | PROVIDERS: PCP Internal Medicine; Visit Provider Surgery Vascular Surgery | DX: I83.12 Varicose veins of left lower extremity with inflammation (principal) | CPT/HCPCS: 99212 ==

== ENCOUNTER → 2022-01-27 10:38 | Outpatient (BNVA) | payer MEDICAID, SELFPAY | PROVIDERS: PCP Internal Medicine; Referring Provider Internal Medicine; Visit Provider Internal Medicine Cardiovascular Disease | DX: R07.9 Chest pain, unspecified (principal) | CPT/HCPCS: 99202 ==

== ENCOUNTER 2022-02-18 10:14 | Outpatient (REF) | payer MEDICAID, SELFPAY ==
--- NOTE | ~2022-02-18 | MM_ITS ---
EXAMINATION: MM DIAGNOSTIC DIGITAL BREAST TOMOSYNTHESIS, LEFT US DIAGNOSTIC ULTRASOUND BREAST, LEFT CLINICAL INFORMATION: Pain medial left breast with ridgelike fullness near sternum. Patient notes recent visit to emergency room with similar symptoms, costochondritis. Family history breast cancer. TC score 17%. COMPARISON: Mammography: 08/28/2021 and prior exams dating back to 01/04/2014. TECHNIQUE: Digital breast tomosynthesis is performed in both the craniocaudal and mediolateral oblique views along with computer-aided detection (CAD). Synthesized 2D images are generated from the tomosynthesis. Additional left MLO view is obtained. Ultrasound left breast is targeted to the areas of clinical concern. Grayscale imaging and color Doppler are performed without and with harmonics. Patient is able to point to area of concern at time of imaging. FINDINGS: There are scattered areas of fibroglandular density (ACR BI-RADS breast composition Category b). Parenchymal pattern is similar to prior exams and there is no interval mass or architectural abnormality or abnormal calcifications. No skin thickening or coarsening of the Hugo's ligaments. Ultrasound demonstrates no cystic or solid mass or architectural abnormality. No focal duct ectasia. No skin thickening or edema tracking in soft tissue planes. Chest wall soft tissues appear normal. No hyperemia. Results are discussed with the patient at time of visit, with assistance of an charging board operator. MM/MM tomosynthesis diagnostic LT IMPRESSION: -No mammographic evidence of malignancy or inflammatory changes. -Unremarkable targeted left breast ultrasound. ASSESSMENT: BI-RADS 1: Negative RECOMMENDATION: 1. Patient should be managed based on the clinical impression. 2. Otherwise, routine annual screening mammography. This patient's information was entered into a reminder system with a target due date for their next mammogram.
== END 2022-02-18 10:15 | disposition home or self-care (01) ==
LOC: HO.MAMMO 10:14
PROVIDERS: PCP Nurse Practitioner Primary Care; Visit Provider Nurse Practitioner Primary Care
DX: N63.22 Unspecified lump in the left breast, upper inner quadrant (principal); N64.4 Mastodynia; Z80.3 Family history of malignant neoplasm of breast
CPT/HCPCS: 76642; 77061; 77065

== ENCOUNTER 2022-03-01 09:34 | Outpatient (REF) | payer MEDICAID, SELFPAY ==
--- NOTE | ~2022-03-01 | MR_ITS ---
EXAMINATION: MR LUMBAR SPINE WITHOUT CONTRAST CLINICAL INFORMATION: Lumbago with sciatica, right side. COMPARISON: Lumbar spine MRI 12/19/2020. TECHNIQUE: MRI of the lumbar spine was obtained using routine sequences without contrast. FINDINGS: The lumbar vertebral bodies maintain normal heights. There is trace retrolisthesis of L3 on L4 with progressive mild disc height loss. Unchanged mild disc height loss at L2-L3. There is no bone marrow edema. The distal spinal cord appears normal. The conus medullaris terminates normally at the L1 level. The extraspinal soft tissues are within normal limits. SPINAL LEVELS: L1-L2: No posterior disc abnormality. No spinal canal or neural foraminal stenosis. L2-L3: Mild disc bulging. No spinal canal or neural foraminal stenosis. L3-L4: Disc bulging with shallow left foraminal protrusion and mild facet arthropathy. Mild narrowing left subarticular zone. Progressive mild left more than right neural foraminal stenosis without foraminal nerve root compression. L4-L5: Mild disc bulging with mild to moderate facet arthropathy. No spinal canal or neural foraminal stenosis. L5-S1: Hypoplastic disc. No spinal canal or neural foraminal stenosis. MR/MR lumbar spine wo con IMPRESSION: 1. At L3-L4 there is progressive mild disc height loss and shallow left foraminal protrusion with mild narrowing of the left subarticular zone and progressive mild left more than right neural foraminal stenosis without foraminal nerve root compression. 2. At L2-L3 there is unchanged mild disc bulging without nerve root compression. 3. At L4-L5 there is mild disc bulging with mild to moderate facet arthropathy but no spinal canal or neural foraminal stenosis. 4. At L5-S1 there is a hypoplastic disc.
== END 2022-03-01 09:35 | disposition home or self-care (01) ==
LOC: HO.MRI 09:34
PROVIDERS: Visit Provider Emergency Medicine
DX: M54.41 Lumbago with sciatica, right side (principal)
CPT/HCPCS: 72148

== ENCOUNTER 2022-04-13 19:52 | Emergency (ER) | payer MEDICAID, SELFPAY ==
[2022-04-13 20:11] VITALS: BP 120/81; PULSE 87; RESP 18; TEMP 36.2; O2SAT 97; BMI 25.7
--- NOTE | 2022-04-13 20:12 | ED_ITS ---
HPI - General Adult General Chief complaint: General Medical Stated complaint: Back pain Time Seen by Provider: 04/13/22 20:43 Source: patient Mode of arrival: ambulatory Limitations: no limitations History of Present Illness HPI narrative: 46 yo female presenting with suprapubic abdominal pain, increased urinary frequency and urgency for the last 3 days. She feels like she has UTI. She is nauseous but not vomiting. No fevers but has some chills at home. No blood in her urine. No flank pain. MD complaint: Suprapubic pain Onset (ago): day(s) (3) Location: abdomen Radiation: back Severity: moderate Quality: burning and aching Pain Consistency: constant Relieving factors: none Exacerbating factors: other (urination) Associated symptoms: fever/chills and nausea/vomiting Treatments prior to arrival: none Related Data Home Medications Medication Instructions Recorded Confirmed loratadine 10 mg capsule 10 mg PO DAILY 02/20/20 01/27/22 paroxetine HCl 40 mg tablet (Paxil) 50 mg PO DAILY 02/20/20 01/27/22 mirtazapine 15 mg tablet (Remeron) 15 mg PO DAILY 05/13/20 01/27/22 baclofen 20 mg tablet 20 mg PO TID 01/06/21 01/27/22 diclofenac sodium 75 mg 75 mg PO BID 01/06/21 01/27/22 tablet,delayed release fluticasone propionate 50 2 spray intranasal DAILY 01/06/21 01/27/22 mcg/actuation nasal spray,suspension doxycycline hyclate 100 mg capsule 100 mg PO BID 02/09/21 01/27/22 lactulose 10 gram/15 mL oral 10 g PO DAILY 02/09/21 01/27/22 solution methocarbamol 750 mg tablet 750 mg PO BEDTIME 02/09/21 01/27/22 norethindrone (contraceptive) 0.35 0.35 mg PO DAILY 02/09/21 01/27/22 mg tablet (Ortho Micronor) hydroxyzine pamoate 25 mg capsule 50 mg PO 10/29/21 01/27/22 bupropion HCl 300 mg 24 hr tablet, 300 mg PO QPM 01/07/22 01/27/22 extended release hydrochlorothiazide 12.5 mg tablet 12.5 mg PO DAILY 01/07/22 01/27/22 trazodone 150 mg tablet 150 mg PO DAILY 01/07/22 01/27/22 famotidine 40 mg tablet 40 mg PO BEDTIME 01/27/22 01/27/22 gabapentin 600 mg tablet 800 mg PO TID Pain 01/27/22 01/27/22 ibuprofen 600 mg tablet 800 mg PO Q6H PRN pain 01/27/22 01/27/22 lorazepam 1 mg tablet 1 mg PO DAILY Anxiety 01/27/22 01/27/22 sumatriptan succinate 50 mg tablet 0 mg PO 01/27/22 01/27/22 Previous Rx's Medication Instructions Recorded cyclobenzaprine 10 mg tablet 10 mg PO TID #10 tabs 10/26/20 albuterol sulfate 90 mcg/actuation 2 puff inhalation Q6H PRN 11/14/20 aerosol inhaler shortness of breath or wheezing #8.5 grams lidocaine 5 % topical patch 1 patch topical DAILY PRN pain #30 12/08/20 (Lidoderm) ea tramadol 50 mg tablet 50 mg PO Q8H PRN pain #14 tabs 03/24/21 albuterol sulfate 90 mcg/actuation 1 inh inhalation QID PRN shortness 07/19/21 aerosol inhaler of breath or wheezing #6.7 grams benzonatate 100 mg capsule 100 mg PO BID PRN cough #14 caps 07/21/21 dextromethorphan-guaifenesin 5 10 ml PO Q4-8H PRN cough #118 mL 07/21/21 mg-100 mg/5 mL oral liquid (Robitussin Cough-Chest Congestion DM) nitrofurantoin 100 mg PO Q12H 5 days #10 caps 12/13/21 monohydrate/macrocrystals 100 mg capsule (Macrobid) naproxen 500 mg tablet (Naprosyn) 500 mg PO BID #20 tabs 12/22/21 cefuroxime axetil 250 mg tablet 250 mg PO BID 7 days #14 tabs 04/13/22 Allergies Allergy/AdvReac Type Severity Reaction Status Date / Time dust Allergy Mild unknown Uncoded 01/27/22 11:04 Review of Systems Review of Systems: Yes all other systems are reviewed and are negative PMFSH Past Medical History Medical History Anxiety and depression Arthritis Asthma Chronic pain syndrome COVID-19 Depression Disc degeneration, lumbar Fibromyalgia Migraines Seasonal allergies Spondylosis of lumbar spine Surgical History H/O LEEP History of bilateral tubal ligation History of carpal tunnel release History of salpingo-oophorectomy Hx of colonoscopy Family History Family History Sister History of breast cancer, Onset Age: 52 Brother History of bone cancer History of blood disorder History of brain cancer Paternal Aunt History of cancer of uterus Social History Social History Alcohol intake: never Patient Tobacco Use Status: Former Tobacco user Cigarettes Per Day: 8 Advance Directives: No Advance Directives Information Provided: No Sexual orientation: Straight/Heterosexual Gender identity: Female Physical Exam ED Vital Signs: Vital Signs - 24 hr 04/13/22 20:11 Temperature 97.2 F Pulse Rate 87 Respiratory Rate 18 Blood Pressure 120/81 Pulse Oximetry 97 Oxygen Delivery Method Room Air BMI result Body Mass Index 25.7 Appearance: Alert. Oriented X3. No acute distress. Eyes: Pupils equal, round and reactive to light. ENT: Pharynx normal. Neck: Normal inspection. Neck supple. CVS: Normal heart rate and rhythm. Pulses normal. Respiratory: No respiratory distress. Breath sounds normal. Abdomen: Soft with lower abdominal tenderness, +BS x4. pelvic deferred. Skin: Skin warm and dry. Normal skin color. Normal skin turgor. No rashes. Extremities: No lower extremity edema. Neuro: Oriented X 3. nonfocal Course Course Course Narrative: 46 yo female presenting with 3 days of uterus pain radiating to my lower back along with urinary frequency and sensation of incomplete bladder emptying. +Nausea but no vomiting, no fevers. Similar to prior UTIs. Afebrile in triage. UA ordered. Nontoxic appearing. Reevaluation(s) Reevaluation #1: UA positive for infection. 1st dose of ceftin and pyridium given here. stable for d/c home with po abx. Medical Decision Making Lab Data Labs: Lab Results 04/13/22 Range/Units 20:22 Urine Color Yellow Urine Appearance Clear Urine pH 8.0 (5.0-9.0) Ur Specific [place] 1.020 (1.005-1.025) Urine Protein Negative (Neg-Trace) mg/dL Urine Glucose (UA) Negative (Negative) mg/dL Urine Ketones Negative (Negative) mg/dL Urine Blood Small (1+) H (Negative) Urine Nitrite Negative (Negative) Ur Leukocyte Esterase Negative (Negative) Discharge Plan Discharge Clinical Impression: Acute UTI Patient Disposition: Home, Self-Care Instructions: Urinary Tract Infection in Women (ED) Additional Instructions: Your urine test showed you have a urinary tract infection. Start the prescribed antibiotics tomorrow morning, your given 1st dose today in the ER. Increase her oral hydration, drink plenty of water. No sexual activity until your symptoms are completely resolved and your off antibiotics. Follow-up with primary care doctor. If you develop new or worsening symptoms call 911 or come back to the ER for further evaluation. Delgado an?lisis de orina mostr? que tiene shyann infecci?n del tracto urinario. Comience con los antibi?ticos recetados ma?giovanni por la ma?giovanni, le dieron la primera dosis hoy en la casey de emergencias. Aumente delgado hidrataci?n oral, pamela ting agua. No tenga actividad sexual hasta que jonathon s?ntomas se resuelvan por completo y deje de hugo antibi?ticos. Seguimiento con m?dico de atenci?n primaria. Si desarrolla s?ntomas nuevos o que empeoran, llame al 911 o regrese a la casey de emergencias para shyann evaluaci?n adicional. Prescriptions: New cefuroxime axetil 250 mg tablet 250 mg PO BID 7 Days Qty: 14 0RF No Action cyclobenzaprine 10 mg tablet 10 mg PO TID Qty: 10 0RF albuterol sulfate 90 mcg/actuation HFA aerosol inhaler 2 puff inhalation Q6H PRN (Reason: shortness of breath or wheezing) Qty: 8.5 0RF lidocaine [Lidoderm] 5 % adhesive patch,medicated 1 patch topical DAILY MDD remove after 12 hours PRN (Reason: pain) Qty: 30 0RF Rx Instructions: leave on most painful area for up to 12 hrs naproxen [Naprosyn] 500 mg tablet 500 mg PO BID Qty: 20 0RF tramadol 50 mg tablet 50 mg PO Q8H PRN (Reason: pain) Qty: 14 0RF albuterol sulfate 90 mcg/actuation HFA aerosol inhaler 1 inh inhalation QID PRN (Reason: shortness of breath or wheezing) Qty: 6.7 0RF Robitussin Cough-Chest Jarod DM 5-100 mg/5 mL liquid 10 ml PO Q4-8H PRN (Reason: cough) Qty: 118 0RF benzonatate 100 mg capsule 100 mg PO BID PRN (Reason: cough) Qty: 14 0RF nitrofurantoin monohyd/m-cryst [Macrobid] 100 mg capsule 100 mg PO Q12H 5 Days Qty: 10 0RF Rx Instructions: must administer with a meal/food diclofenac sodium 75 mg tablet,delayed release (DR/EC) 75 mg PO BID baclofen 20 mg tablet 20 mg PO TID fluticasone propionate 50 mcg/actuation spray,suspension 2 spray intranasal DAILY gabapentin 600 mg tablet 800 mg PO TID lorazepam 1 mg tablet 1 mg PO DAILY loratadine 10 mg capsule 10 mg PO DAILY paroxetine HCl [Paxil] 40 mg tablet 50 mg PO DAILY mirtazapine [Remeron] 15 mg tablet 15 mg PO DAILY ibuprofen 600 mg tablet 800 mg PO Q6H PRN (Reason: pain) sumatriptan succinate 50 mg tablet 0 mg PO famotidine 40 mg tablet 40 mg PO BEDTIME norethindrone (contraceptive) [Ortho Micronor] 0.35 mg tablet 0.35 mg PO DAILY lactulose 10 gram/15 mL solution 10 g PO DAILY doxycycline hyclate 100 mg capsule 100 mg PO BID methocarbamol 750 mg tablet 750 mg PO BEDTIME hydroxyzine pamoate 25 mg capsule 50 mg PO hydrochlorothiazide 12.5 mg tablet 12.5 mg PO DAILY bupropion HCl 300 mg tablet extended release 24 hr 300 mg PO QPM trazodone 150 mg tablet 150 mg PO DAILY Referrals: Dory Ray MD [Primary Care Provider] - Print Language: Icelandic
[2022-04-13 20:30] LABS: Appearance Urine Clear; Color Urine Yellow; Glucose Urine UA Negative (Negative); Leukocyte Esterase Urine Negative (Negative); Nitrite Urine Negative (Negative); UMIC TRIGGER UACC YES; Urine Blood Small (1+) (Negative); Urine Ketones Negative (Negative); Urine Protein Negative (Neg-Trace)
[2022-04-13] MEDS: Phenazopyridine HCL 100 MG TABLET PO (20:54)
[2022-04-13 21:09] LABS: Bacteria Urine None Seen (None Seen); Hyaline Casts Urine 0-2 /LPF (0-2); RBC Urine >20 /HPF (0-2); Squamous Epithelial Cell Urine 0-2 /HPF (0-2); WBC Urine 0-5 /HPF (0-5)
== END 2022-04-13 20:58 | disposition home or self-care (01) ==
PROVIDERS: Physician Assistant; Emergency Provider Internal Medicine; PCP Internal Medicine
DX: N39.0 Urinary tract infection, site not specified (principal); Z87.891 Personal history of nicotine dependence; Z79.899 Other long term (current) drug therapy
CPT/HCPCS: 81001; 99283

== ENCOUNTER 2022-06-14 05:45 | Emergency (ER) | payer MEDICAID, SELFPAY ==
--- NOTE | ~2022-06-14 | CT_ITS ---
EXAMINATION: CT ABDOMEN AND PELVIS WITHOUT CONTRAST CLINICAL INFORMATION: Flank pain COMPARISON: 12/15/2021 TECHNIQUE: Multidetector volumetric imaging was performed from the superior aspect of the liver through the pubic symphysis. Sagittal and coronal reformatted images were obtained on the technologist's workstation. This CT examination was performed using dose optimization techniques as appropriate, variously including the following: *Automated exposure control *Adjustment of mA and/or kV according to patient size (this includes techniques or standardized protocols for targeted exams where dose is matched to indication/reason for exam; i.e. extremities or head) *Use of iterative reconstruction technique DLP: 383 mGy-cm FINDINGS: LUNG BASES: The visualized lung bases are unremarkable. LIVER, GALLBLADDER, AND BILIARY TREE: The liver is normal in size, shape, and attenuation. No focal hepatic lesion or biliary ductal dilatation is present. The gallbladder is unremarkable with no evidence of radiopaque gallstones, gallbladder wall thickening, or obvious pericholecystic inflammatory changes. PANCREAS: Unremarkable. SPLEEN: Unremarkable. ADRENAL GLANDS: Unremarkable. KIDNEYS AND URETERS: The kidneys are normal in size, shape, and attenuation. No hydronephrosis, hydroureter, or calculi seen. No perinephric stranding. Multiple phleboliths in the pelvis are unchanged from prior. BLADDER: Unremarkable. GASTROINTESTINAL TRACT: The stomach is unremarkable. Normal caliber of the small bowel. No obstruction. Scattered colonic diverticulosis without diverticulitis. Normal appendix. No free air or free fluid. ABDOMINAL WALL: No significant hernia is appreciated. LYMPH NODES: Normal. VASCULAR: Normal caliber aorta with mild atherosclerotic calcification. PELVIC VISCERA: Anteverted uterus. Endometrial thickness of 1.1 cm. 4.6 cm simple-appearing left adnexal cyst. No follow-up imaging recommended. OSSEOUS STRUCTURES: No acute or suspicious osseous abnormality. Mild degenerative changes of the spine. Transitional anatomy of the lumbosacral junction. CT/CT abdomen pelvis wo IV con IMPRESSION: No acute findings in the abdomen or pelvis. No hydronephrosis or nephrolithiasis. Fleischner guidelines were followed.
[2022-06-14 05:51] VITALS: BP 139/71; PULSE 76; RESP 21; TEMP 36.6; O2SAT 98; BMI 22.6
[2022-06-14 06:37] LABS: Appearance Urine Clear; Color Urine Yellow; Glucose Urine UA Negative (Negative); Leukocyte Esterase Urine Negative (Negative); Nitrite Urine Negative (Negative); PH 6.5 (5.0-9.0); UMIC TRIGGER UACC YES; UPreg QC Valid YES; Urine Blood Moderate (2+) (Negative); Urine Ketones Negative (Negative); Urine Pregnancy NEGATIVE (NEGATIVE); Urine Protein Negative (Neg-Trace)
[2022-06-14 06:42] LABS: Bacteria Urine None Seen (None Seen); Hyaline Casts Urine 0-2 /LPF (0-2); RBC Urine >20 /HPF (0-2); WBC Urine 0-5 /HPF (0-5)
--- NOTE | 2022-06-14 06:58 | PC.NURSE ---
pt aox4, calm/cooperative no apparent distress
--- NOTE | 2022-06-14 07:23 | ED.FEMALEGU ---
HPI - Female Genitourinary General Chief complaint: Urogenital-Female Stated complaint: UTI Time Seen by Provider: 06/14/22 06:33 Source: patient Mode of arrival: ambulatory History of Present Illness HPI Narrative: 46-year-old female without significant past medical history, denies any previous kidney stones, presents with 4 days of urinary frequency and chills but denies any nausea or vomiting and states she is having lower abdominal discomfort. Related Data Home Medications Medication Instructions Recorded Confirmed loratadine 10 mg capsule 10 mg PO DAILY 02/20/20 01/27/22 paroxetine HCl 40 mg tablet (Paxil) 50 mg PO DAILY 02/20/20 01/27/22 mirtazapine 15 mg tablet (Remeron) 15 mg PO DAILY 05/13/20 01/27/22 baclofen 20 mg tablet 20 mg PO TID 01/06/21 01/27/22 diclofenac sodium 75 mg 75 mg PO BID 01/06/21 01/27/22 tablet,delayed release fluticasone propionate 50 2 spray intranasal DAILY 01/06/21 01/27/22 mcg/actuation nasal spray,suspension doxycycline hyclate 100 mg capsule 100 mg PO BID 02/09/21 01/27/22 lactulose 10 gram/15 mL oral 10 g PO DAILY 02/09/21 01/27/22 solution methocarbamol 750 mg tablet 750 mg PO BEDTIME 02/09/21 01/27/22 norethindrone (contraceptive) 0.35 0.35 mg PO DAILY 02/09/21 01/27/22 mg tablet (Ortho Micronor) hydroxyzine pamoate 25 mg capsule 50 mg PO 10/29/21 01/27/22 bupropion HCl 300 mg 24 hr tablet, 300 mg PO QPM 01/07/22 01/27/22 extended release hydrochlorothiazide 12.5 mg tablet 12.5 mg PO DAILY 01/07/22 01/27/22 trazodone 150 mg tablet 150 mg PO DAILY 01/07/22 01/27/22 famotidine 40 mg tablet 40 mg PO BEDTIME 01/27/22 01/27/22 gabapentin 600 mg tablet 800 mg PO TID Pain 01/27/22 01/27/22 ibuprofen 600 mg tablet 800 mg PO Q6H PRN pain 01/27/22 01/27/22 lorazepam 1 mg tablet 1 mg PO DAILY Anxiety 01/27/22 01/27/22 sumatriptan succinate 50 mg tablet 0 mg PO 01/27/22 01/27/22 Previous Rx's Medication Instructions Recorded cyclobenzaprine 10 mg tablet 10 mg PO TID #10 tabs 10/26/20 albuterol sulfate 90 mcg/actuation 2 puff inhalation Q6H PRN 11/14/20 aerosol inhaler shortness of breath or wheezing #8.5 grams lidocaine 5 % topical patch 1 patch topical DAILY PRN pain #30 12/08/20 (Lidoderm) ea tramadol 50 mg tablet 50 mg PO Q8H PRN pain #14 tabs 03/24/21 albuterol sulfate 90 mcg/actuation 1 inh inhalation QID PRN shortness 07/19/21 aerosol inhaler of breath or wheezing #6.7 grams benzonatate 100 mg capsule 100 mg PO BID PRN cough #14 caps 07/21/21 dextromethorphan-guaifenesin 5 10 ml PO Q4-8H PRN cough #118 mL 07/21/21 mg-100 mg/5 mL oral liquid (Robitussin Cough-Chest Congestion DM) nitrofurantoin 100 mg PO Q12H 5 days #10 caps 12/13/21 monohydrate/macrocrystals 100 mg capsule (Macrobid) naproxen 500 mg tablet (Naprosyn) 500 mg PO BID #20 tabs 12/22/21 cefuroxime axetil 250 mg tablet 250 mg PO BID 7 days #14 tabs 04/13/22 Allergies Allergy/AdvReac Type Severity Reaction Status Date / Time dust Allergy Mild unknown Uncoded 01/27/22 11:04 Review of Systems Review of Systems: Pertinent positives and negatives as stated in HPI [facility] Past Medical History Source: nursing notes reviewed Medical History Anxiety and depression Arthritis Asthma Chronic pain syndrome COVID-19 Depression Disc degeneration, lumbar Fibromyalgia Migraines Seasonal allergies Spondylosis of lumbar spine Surgical History H/O LEEP History of bilateral tubal ligation History of carpal tunnel release History of salpingo-oophorectomy Hx of colonoscopy Family History Family History Sister History of breast cancer, Onset Age: 52 Brother History of bone cancer History of blood disorder History of brain cancer Paternal Aunt History of cancer of uterus Social History Social History Alcohol intake: never Patient Tobacco Use Status: Former Tobacco user Cigarettes Per Day: 8 Advance Directives: No Advance Directives Information Provided: Yes Patient : No Sexual orientation: Straight/Heterosexual Gender identity: Female Physical Exam Vital Signs: Vital Signs: Last Vital Signs Temp 97.8 F 06/14/22 08:18 Pulse 62 06/14/22 08:18 Resp 18 06/14/22 08:18 BP 110/72 06/14/22 08:18 Pulse Ox 98 06/14/22 08:18 O2 Del Method 06/14/22 08:18 BMI result Body Mass Index 22.6 VITAL SIGNS: Reviewed. GENERAL: Well developed, well nourished, in no acute distress. HEAD: Normocephalic/atraumatic EYES: PERRLA, EOMI LUNGS: Normal breath sounds. No adventitious sounds or accessory muscle use. SpO2<98> CARDIOVASCULAR: Regular rate and rhythm without noted murmurs ABDOMEN: Soft, mild tenderness in lower abdomen, non-distended with bowel sounds, no CVA tenderness. MUSCULOSKELETAL: No tenderness, deformities, or effusions noted on gross inspection. EXTREMITIES: No cyanosis, clubbing or edema. SKIN: Inspection of the skin reveals no rashes NEUROLOGIC: Alert and oriented x 4. Strength and sensation to light touch were grossly intact x 4. Medications Administered Discontinued Medications Generic Name Dose Route Start Last Admin Trade Name Freq PRN Reason Stop Dose Admin Sodium Chloride 1,000 mls @ 999 mls/hr 06/14/22 07:30 06/14/22 07:43 Ns IV 06/14/22 08:30 999 mls/hr .Q1H1M KATHERINE Administration Ketorolac Tromethamine 15 mg 06/14/22 07:22 06/14/22 07:45 Ketorolac Tromethamine 30 Mg/Ml Vial IVPUSH 06/14/22 07:23 15 mg ONCE ONE Administration Medical Decision Making Medical Decision Making [facility] Narrative: 0725: 46-year-old female with history and clinical presentation suggestive of possible renal colic,ectopic, UTI and lower clinical suspicion for pyelonephritis. Review of all investigations, negative in my interpretation is as patient may have menstrual related discomfort. She received combination analgesics, she has a left ovarian cyst as well. Will provide patient with referral to gynecology and she will be discharged home in stable condition Differential Diagnosis Please see the discussion above Lab Data Please see the discussion above Labs: Lab Results 06/14/22 06/14/22 Range/Units 06:30 06:30 Urine Color Yellow Urine Appearance Clear Urine pH 6.5 (5.0-9.0) Ur Specific [place] 1.020 (1.005-1.025) Urine Protein Negative (Neg-Trace) mg/dL Urine Glucose (UA) Negative (Negative) mg/dL Urine Ketones Negative (Negative) mg/dL Urine Blood Moderate (2+) H (Negative) Urine Nitrite Negative (Negative) Ur Leukocyte Esterase Negative (Negative) Urine RBC >20 H (0-2) /HPF Urine WBC 0-5 (0-5) /HPF Ur Squamous Epith Cells 6-10 (0-2) /HPF Urine Bacteria None Seen (None Seen) Hyaline Casts 0-2 (0-2) /LPF Urine Test NEGATIVE (NEGATIVE) Radiology Impression Radiologist Impression: My interpretation is in agreement with radiology's impression of the imaging studies. External Record Review External record reviewed: Outpatient record and Prior outpatient labs Discharge Plan Discharge Clinical Impression: Abdominal discomfort, Cyst of left ovary Patient Disposition: Home, Self-Care Instructions: Abdominal Pain (ED), Ovarian Cyst (ED) Additional Instructions: 1. Tylenol 1000 mg, orally, every 6 hours as needed for pain control. Do not exceed 4000 mg within 24 hours. 2. Ibuprofen 400 mg, orally with milk or food, every 6 hours as needed for pain control. 3. I have given you a referral to follow-up with gynecology for further management and evaluation left ovarian cyst. 4. Please follow-up with your primary care provider by calling the office today and setting up an appointment. Return to the ER for any worsening symptoms. Prescriptions: No Action cyclobenzaprine 10 mg tablet 10 mg PO TID Qty: 10 0RF albuterol sulfate 90 mcg/actuation HFA aerosol inhaler 2 puff inhalation Q6H PRN (Reason: shortness of breath or wheezing) Qty: 8.5 0RF lidocaine [Lidoderm] 5 % adhesive patch,medicated 1 patch topical DAILY MDD remove after 12 hours PRN (Reason: pain) Qty: 30 0RF Rx Instructions: leave on most painful area for up to 12 hrs naproxen [Naprosyn] 500 mg tablet 500 mg PO BID Qty: 20 0RF cefuroxime axetil 250 mg tablet 250 mg PO BID 7 Days Qty: 14 0RF tramadol 50 mg tablet 50 mg PO Q8H PRN (Reason: pain) Qty: 14 0RF albuterol sulfate 90 mcg/actuation HFA aerosol inhaler 1 inh inhalation QID PRN (Reason: shortness of breath or wheezing) Qty: 6.7 0RF Robitussin Cough-Chest Jarod DM 5-100 mg/5 mL liquid 10 ml PO Q4-8H PRN (Reason: cough) Qty: 118 0RF benzonatate 100 mg capsule 100 mg PO BID PRN (Reason: cough) Qty: 14 0RF nitrofurantoin monohyd/m-cryst [Macrobid] 100 mg capsule 100 mg PO Q12H 5 Days Qty: 10 0RF Rx Instructions: must administer with a meal/food diclofenac sodium 75 mg tablet,delayed release (DR/EC) 75 mg PO BID baclofen 20 mg tablet 20 mg PO TID fluticasone propionate 50 mcg/actuation spray,suspension 2 spray intranasal DAILY gabapentin 600 mg tablet 800 mg PO TID lorazepam 1 mg tablet 1 mg PO DAILY loratadine 10 mg capsule 10 mg PO DAILY paroxetine HCl [Paxil] 40 mg tablet 50 mg PO DAILY mirtazapine [Remeron] 15 mg tablet 15 mg PO DAILY ibuprofen 600 mg tablet 800 mg PO Q6H PRN (Reason: pain) sumatriptan succinate 50 mg tablet 0 mg PO famotidine 40 mg tablet 40 mg PO BEDTIME norethindrone (contraceptive) [Ortho Micronor] 0.35 mg tablet 0.35 mg PO DAILY lactulose 10 gram/15 mL solution 10 g PO DAILY doxycycline hyclate 100 mg capsule 100 mg PO BID methocarbamol 750 mg tablet 750 mg PO BEDTIME hydroxyzine pamoate 25 mg capsule 50 mg PO hydrochlorothiazide 12.5 mg tablet 12.5 mg PO DAILY bupropion HCl 300 mg tablet extended release 24 hr 300 mg PO QPM trazodone 150 mg tablet 150 mg PO DAILY Referrals: Macho Sarkar MD [Physician] - (4.6cm left ovarian cyst)
[2022-06-14 07:33] VITALS: BP 103/71; PULSE 77; RESP 19; TEMP 36.6; O2SAT 97
[2022-06-14] MEDS: 0.9 % Sodium Chloride 1,000 ML 999 ML IV (07:43)
[2022-06-14] MEDS: Ketorolac Tromethamine 30 MG/ML VIAL 15 MG IVPUSH (07:45)
[2022-06-14 08:18] VITALS: BP 110/72; PULSE 62; RESP 18; TEMP 36.6; O2SAT 98
[2022-06-14 09:15] VITALS: BP 124/79; PULSE 66; RESP 18; TEMP 36.7; O2SAT 99
== END 2022-06-14 09:28 | disposition home or self-care (01) ==
PROVIDERS: Emergency Provider Student in an Organized Health Care Education/Training Program
DX: N83.202 Unspecified ovarian cyst, left side (principal); R10.2 Pelvic and perineal pain; R35.0 Frequency of micturition; Z79.899 Other long term (current) drug therapy
CPT/HCPCS: 74176; 81001; 81025; 96361; 96374; 99284; 99285; J1885

== ENCOUNTER 2022-06-16 08:30 | Outpatient (REF) | payer MEDICAID, SELFPAY ==
[2022-06-16 13:51] LABS: CT PCR NOT DETECTED (Not Detect.); NG PCR NOT DETECTED (Not Detect.)
[2022-06-17 10:56] LABS: BV Int Neg Control Negative (Negative); BV Int Pos Control Positive (Positive)
== END 2022-06-16 08:31 | disposition home or self-care (01) ==
LOC: HO.LNP 08:30
PROVIDERS: Visit Provider Obstetrics & Gynecology
DX: N83.209 Unspecified ovarian cyst, unspecified side (principal); N89.8 Other specified noninflammatory disorders of vagina; R31.29 Other microscopic hematuria
CPT/HCPCS: 0353U; 87086; 87480; 87510; 87660; 99212

== ENCOUNTER 2022-07-05 10:55 | Outpatient (REF) | payer MEDICAID, SELFPAY ==
[2022-07-05 13:02] LABS: HBsAGNum1 0.36 S/CO (0.00-0.99); HIV AB/AG Nonreactive (Nonreactive); HIV Num 1 0.06 S/CO (0.00-0.99); Hepatitis B Surface Antigen Negative (Negative); ~HepC Num1 0.25 S/CO (0.00-0.79); ~Hepatitis C Antibody Nonreactive (Nonreactive)
[2022-07-05 13:04] LABS: Syphilis Screen Nonreactive (Nonreactive)
== END 2022-07-05 10:56 | disposition home or self-care (01) ==
LOC: HO.LAB 10:55
PROVIDERS: Visit Provider Obstetrics & Gynecology
DX: Z11.4 Encounter for screening for human immunodeficiency virus [HIV] (principal); B96.89 Other specified bacterial agents as the cause of diseases classified elsewhere; N76.0 Acute vaginitis
CPT/HCPCS: 36415; 86780; 86803; 87340; 87389

== ENCOUNTER → 2022-07-13 09:22 | Outpatient (BNVA) | payer MEDICAID, SELFPAY | PROVIDERS: Visit Provider Obstetrics & Gynecology | DX: R31.29 Other microscopic hematuria (principal); N83.209 Unspecified ovarian cyst, unspecified side | CPT/HCPCS: 81003; 99212 ==

== ENCOUNTER 2022-07-24 19:15 | Emergency (ER) | payer MEDICAID, SELFPAY ==
--- NOTE | ~2022-07-24 | CT_ITS ---
EXAMINATION: CT ABDOMEN AND PELVIS WITHOUT CONTRAST CLINICAL INFORMATION: Flank pain. Question kidney stones. COMPARISON: 06/14/2022 TECHNIQUE: Multidetector volumetric imaging was performed from the superior aspect of the liver through the pubic symphysis. Sagittal and coronal reformatted images were obtained on the technologist's workstation. This CT examination was performed using dose optimization techniques as appropriate, variously including the following: *Automated exposure control. *Adjustment of mA and/or kV according to patient size (this includes techniques or standardized protocols for targeted exams where dose is matched to indication/reason for exam; i.e. extremities or head). *Use of iterative reconstruction technique. DLP: 402 mGy-cm FINDINGS: LUNG BASES: The visualized lung bases are unremarkable. LIVER, GALLBLADDER, AND BILIARY TREE: The liver is normal in size, shape, and attenuation. No focal hepatic lesion or biliary ductal dilatation is present. The gallbladder is unremarkable with no evidence of radiopaque gallstones, gallbladder wall thickening, or obvious pericholecystic inflammatory changes. PANCREAS: Unremarkable. SPLEEN: Unremarkable. ADRENAL GLANDS: Unremarkable. KIDNEYS AND URETERS: The kidneys are normal in size, shape, and attenuation. No hydronephrosis, hydroureter, or calculi seen. No perinephric stranding. BLADDER: Unremarkable. GASTROINTESTINAL TRACT: Stomach, small bowel, and colon are normal in caliber. No bowel wall thickening or surrounding inflammatory changes. Appendix is normal. No intraperitoneal free fluid or free air. ABDOMINAL WALL: No significant hernia is appreciated. LYMPH NODES: Normal. VASCULAR: Unremarkable. PELVIC VISCERA: Uterus is anteverted. Normal endometrial thickness. No focal lesions. No suspicious adnexal lesions. OSSEOUS STRUCTURES: There is Castellvi type IIA transitional anatomy on the left at the lumbosacral junction. No acute osseous abnormalities. Mild multilevel degenerative disc disease with multilevel disc bulges, most notably at L3-L4 and L4-L5. CT/CT abdomen pelvis wo IV con IMPRESSION: No acute intra-abdominal or intrapelvic abnormalities. No nephrolithiasis or evidence of obstructive uropathy. Fleischner guidelines were followed.
[2022-07-24 19:28] VITALS: BP 133/54; PULSE 84; RESP 18; TEMP 36.6; O2SAT 98; BMI 23.6
--- NOTE | 2022-07-24 19:31 | ED_ITS ---
HPI - General Adult General Chief complaint: Urogenital-Female <Jordon Hidalgo - Last Filed: 07/24/22 20:00> Stated complaint: back pain for several days <Jordon Hidalgo - Last Filed: 07/24/22 20:00> Time Seen by Provider: 07/24/22 20:44 <Jordon Hidalgo - Last Filed: 07/24/22 20:00> Source: patient <KATH Aiken - Last Filed: 07/25/22 17:35> Mode of arrival: ambulatory <KATH Aiken - Last Filed: 07/25/22 17:35> Limitations: no limitations <KATH Aiken Last Filed: 07/25/22 17:35> History of Present Illness HPI narrative: 47-year-old female with chronic back pain presents to the ED for low back pain radiating to bilateral lower abdomen for one week. Patient denies any urinary symptoms, urinary/bowel incontinence, fever, chills, or any recent trauma. Patient states she is not having ovary pain but more chronic back pain exacerbation radiating to her lower abdomen. Patient states no nausea or vomiting. Patient states no fever, chills, chest pain, shortness of breath. Denies any history of IV drug use. patient states back pain that is worse on movement. <KATH Aiken - Last Filed: 07/25/22 17:35> Related Data Home medications: Home Medications Medication Instructions Recorded Confirmed loratadine 10 mg capsule 10 mg PO DAILY 02/20/20 01/27/22 paroxetine HCl 40 mg tablet (Paxil) 50 mg PO DAILY 02/20/20 01/27/22 mirtazapine 15 mg tablet (Remeron) 15 mg PO DAILY 05/13/20 01/27/22 baclofen 20 mg tablet 20 mg PO TID 01/06/21 01/27/22 diclofenac sodium 75 mg 75 mg PO BID 01/06/21 01/27/22 tablet,delayed release fluticasone propionate 50 2 spray intranasal DAILY 01/06/21 01/27/22 mcg/actuation nasal spray,suspension doxycycline hyclate 100 mg capsule 100 mg PO BID 02/09/21 01/27/22 lactulose 10 gram/15 mL oral 10 g PO DAILY 02/09/21 01/27/22 solution methocarbamol 750 mg tablet 750 mg PO BEDTIME 02/09/21 01/27/22 norethindrone (contraceptive) 0.35 0.35 mg PO DAILY 02/09/21 01/27/22 mg tablet (Ortho Micronor) hydroxyzine pamoate 25 mg capsule 50 mg PO 10/29/21 01/27/22 bupropion HCl 300 mg 24 hr tablet, 300 mg PO QPM 01/07/22 01/27/22 extended release hydrochlorothiazide 12.5 mg tablet 12.5 mg PO DAILY 01/07/22 01/27/22 trazodone 150 mg tablet 150 mg PO DAILY 01/07/22 01/27/22 famotidine 40 mg tablet 40 mg PO BEDTIME 01/27/22 01/27/22 gabapentin 600 mg tablet 800 mg PO TID Pain 01/27/22 01/27/22 ibuprofen 600 mg tablet 800 mg PO Q6H PRN pain 01/27/22 01/27/22 lorazepam 1 mg tablet 1 mg PO DAILY Anxiety 01/27/22 01/27/22 sumatriptan succinate 50 mg tablet 0 mg PO 01/27/22 01/27/22 Previous Rx's Medication Instructions Recorded cyclobenzaprine 10 mg tablet 10 mg PO TID #10 tabs 10/26/20 albuterol sulfate 90 mcg/actuation 2 puff inhalation Q6H PRN 11/14/20 aerosol inhaler shortness of breath or wheezing #8.5 grams lidocaine 5 % topical patch 1 patch topical DAILY PRN pain #30 12/08/20 (Lidoderm) ea tramadol 50 mg tablet 50 mg PO Q8H PRN pain #14 tabs 03/24/21 albuterol sulfate 90 mcg/actuation 1 inh inhalation QID PRN shortness 07/19/21 aerosol inhaler of breath or wheezing #6.7 grams benzonatate 100 mg capsule 100 mg PO BID PRN cough #14 caps 07/21/21 dextromethorphan-guaifenesin 5 10 ml PO Q4-8H PRN cough #118 mL 07/21/21 mg-100 mg/5 mL oral liquid (Robitussin Cough-Chest Congestion DM) nitrofurantoin 100 mg PO Q12H 5 days #10 caps 12/13/21 monohydrate/macrocrystals 100 mg capsule (Macrobid) naproxen 500 mg tablet (Naprosyn) 500 mg PO BID #20 tabs 12/22/21 cefuroxime axetil 250 mg tablet 250 mg PO BID 7 days #14 tabs 04/13/22 nitrofurantoin 100 mg PO BID 5 days #10 caps 06/16/22 monohydrate/macrocrystals 100 mg capsule (Macrobid) metronidazole 0.75 % (37.5 mg/5 1 appful vaginal BEDTIME 5 days 06/18/22 gram) vaginal gel #70 grams naproxen 500 mg tablet 500 mg PO BID PRN pain 7 days #14 07/25/22 tabs prednisone 20 mg tablet 40 mg PO DAILY 5 days #10 tabs 07/25/22 <Jordon Hidalgo - Last Filed: 07/24/22 20:00> Allergies/adverse reactions: Allergies Allergy/AdvReac Type Severity Reaction Status Date / Time dust Allergy Mild unknown Uncoded 07/24/22 19:28 <Jordon Hidalgo - Last Filed: 07/24/22 20:00> Review of Systems Review of Systems: Chronic back pain exacerbation no trauma <KATH Aiken - Last Filed: 07/25/22 17:35> Yes all other systems are reviewed and are negative <KATH Aiken - Last Filed: 07/25/22 17:35> PMFSH Past Medical History Medical History: Medical History Anxiety and depression Arthritis Asthma Chronic pain syndrome COVID-19 Depression Disc degeneration, lumbar Fibromyalgia Migraines Seasonal allergies Spondylosis of lumbar spine <Jordon Hidalgo - Last Filed: 07/24/22 20:00> Surgical History: Surgical History H/O LEEP History of bilateral tubal ligation History of carpal tunnel release History of salpingo-oophorectomy Hx of colonoscopy <Jordon Hidalgo - Last Filed: 07/24/22 20:00> Family History Family History: Family History Sister History of breast cancer, Onset Age: 52 Brother History of bone cancer History of blood disorder History of brain cancer Paternal Aunt History of cancer of uterus <Jordon Hidalgo - Last Filed: 07/24/22 20:00> Social History Social History: Social History Alcohol intake: never Patient Tobacco Use Status: Former Tobacco user Cigarettes Per Day: 8 Advance Directives: No Advance Directives Information Provided: No Sexual orientation: Straight/Heterosexual Gender identity: Female <Jordon Hidalgo - Last Filed: 07/24/22 20:00> Physical Exam ED Vital Signs: Vital Signs - 24 hr 07/24/22 19:28 07/24/22 20:00 07/24/22 22:00 Temperature 97.9 F 97.9 F 97.7 F Pulse Rate 84 82 80 Respiratory Rate 18 18 16 Blood Pressure 133/54 L 130/60 132/58 L Pulse Oximetry 98 98 98 Oxygen Delivery Method Room Air Room Air Room Air 07/24/22 23:58 Temperature 97.8 F Pulse Rate 62 Respiratory Rate 16 Blood Pressure 130/70 Pulse Oximetry 98 Oxygen Delivery Method Room Air BMI result Body Mass Index 23.6 <Jordon Hidalgo - Last Filed: 07/24/22 20:00> Vital Signs - 24 hr 07/24/22 19:28 07/24/22 20:00 07/24/22 22:00 Temperature 97.9 F 97.9 F 97.7 F Pulse Rate 84 82 80 Respiratory Rate 18 18 16 Blood Pressure 133/54 L 130/60 132/58 L Pulse Oximetry 98 98 98 Oxygen Delivery Method Room Air Room Air Room Air 07/24/22 23:58 Temperature 97.8 F Pulse Rate 62 Respiratory Rate 16 Blood Pressure 130/70 Pulse Oximetry 98 Oxygen Delivery Method Room Air BMI result Body Mass Index 23.6 <KATH Aiken - Last Filed: 07/25/22 17:35> Const General: cooperative, healthy appearing, comfortable, no acute distress, well developed, alert and awake <KATH Aiken - Last Filed: 07/25/22 17:35> Orientation/consciousness: oriented to person, oriented to place, oriented to time and patient oriented x3 <KATH Aiken Last Filed: 07/25/22 17:35> HENMT Head: Yes normal to inspection, Yes No palpable skull fracture present, Yes normocephalic, Yes atraumatic and No abrasion <Taras Hogan KATH Jorge Last Filed: 07/25/22 17:35> Eyes General: appearance normal, both eyes and all related structures <Taras Hogan [facility] Last Filed: 07/25/22 17:35> Neck Neck: Yes normal visual inspection, Yes full ROM, Yes no lymphadenopathy, Yes no meningeal signs, Yes trachea midline, Yes supple, No anterior neck swelling and No tender <Taras Hogan [place] Last Filed: 07/25/22 17:35> Chest Chest palpation & inspection: normal inspection of the chest and normal palpation of entire chest wall <Taras Hogan KATH Last Filed: 07/25/22 17:35> Resp Effort & Inspection: normal respiratory effort and able to speak in complete sentences <Taras Hogan [place] Filed: 07/25/22 17:35> Auscultation: clear to auscultation bilaterally <Taras Hogan [place] Last Filed: 07/25/22 17:35> Cardio Jugular venous distension: no JVD <Taras Hogan [place] Last Filed: 07/25/22 17:35> Heart sounds: S1 normal heart sound present and S2 normal heart sound present <Taras Hogan [place] Last Filed: 07/25/22 17:35> GI Inspection: Yes normal to inspection and No abdominal wall ecchymosis <Taras Hogan [place] Last Filed: 07/25/22 17:35> Palpation (GI): Soft to palpation, not firm, nontender, no guarding, not rigid and No hepatosplenomegaly present <Taras Hogan [place] Last Filed: 07/25/22 17:35> General: No CVA tenderness and Yes no CVA tenderness <Taras Hogan KATH Last Filed: 07/25/22 17:35> Back/Spine/Pelvis Back: no CVA tenderness, No CVA tenderness and back tenderness (lumbar spine tenderness on palpation.) <Taras Edison KATH Last Filed: 07/25/22 17:35> Back/spine/pelvis image: 1. Positive for tenderness on palpation. Negative for crepitus. Negative erythema. Negative for ecchymosis. <Jordon Hidalgo - Last Filed: 07/24/22 20:00> 1. Positive for tenderness on palpation. Negative for crepitus. Negative erythema. Negative for ecchymosis. <KATH Aiken - Last Filed: 07/25/22 17:35> Skin General skin exam: no rashes or lesions noted and elasticity normal <KATH Aiken - Last Filed: 07/25/22 17:35> Neuro General: oriented to person, oriented to place, oriented to time, patient oriented x3, gait normal, tone normal, moves all extremities, Normal light touch and pain sensation, no meningeal signs, no focal motor deficits, CN's II-XI intact bilaterally and normal sensation to monofilament <KATH Aiken - Last Filed: 07/25/22 17:35> Extrem General: Yes normal to inspection and Yes full ROM <KATH Aiken - Last Filed: 07/25/22 17:35> Psych Appearance: grossly normal, well kempt and not disheveled <KATH Aiken - Last Filed: 07/25/22 17:35> Course Course Course Narrative: 46-year-old female presents for evaluation of left lower back pain that radiates to her left flank, down to her buttocks and across her left lower abdomen. Reports urinary frequency and oliguria. Plan for UA and basic labs. <Jordon Hidalgo - Last Filed: 07/24/22 20:00> Reevaluation(s) Reevaluation #1: UA show blood. Patient is not on her menstruation. Negative for any suprapubic tenderness. Patient denies any vaginal bleeding. Patient sent for CT scan to rule out kidney stone. CT scan did not show any pelvic adnexal mass or any emergent abdominal etiology or kidney stones. It shows severe lumbar radiculopathy. Patient will be discharged with pain medication. Not suspecting tubo-ovarian abscess or torsion. Patient last OBGYN note Dr. Sarkar states there was negative for complex left ovarian cyst. Patient's pain resolved after receiving meds. <KATH Aiken Last Filed: 07/25/22 17:35> Time: 01:41 <KATH Aiken Last Filed: 07/25/22 17:35> Medications Administered Discontinued Medications Generic Name Dose Route Start Last Admin Trade Name Freq PRN Reason Stop Dose Admin Ketorolac Tromethamine 30 mg 07/24/22 21:40 07/24/22 21:59 Ketorolac Tromethamine 30 Mg/Ml Vial IVPUSH 07/24/22 21:41 30 mg ONCE ONE Administration Morphine Sulfate 4 mg 07/24/22 22:51 07/24/22 22:57 Morphine Sulfate 4 Mg/Ml Cartridge IVPUSH 07/24/22 22:52 4 mg ONCE ONE Administration Protocol <Jordon Hidalgo - Last Filed: 07/24/22 20:00> Medications Administered Discontinued Medications Generic Name Dose Route Start Last Admin Trade Name Freq PRN Reason Stop Dose Admin Ketorolac Tromethamine 30 mg 07/24/22 21:40 07/24/22 21:59 Ketorolac Tromethamine 30 Mg/Ml Vial IVPUSH 07/24/22 21:41 30 mg ONCE ONE Administration Morphine Sulfate 4 mg 07/24/22 22:51 07/24/22 22:57 Morphine Sulfate 4 Mg/Ml Cartridge IVPUSH 07/24/22 22:52 4 mg ONCE ONE Administration Protocol <KATH Aiken - Last Filed: 07/25/22 17:35> Medical Decision Making Medical Decision Making [facility] Narrative: 47-year-old female with back spinal lumbar pain radiating to bilateral lower abdomen. Positive for spinal tenderness on palpation. Negative for urinary/bowel incontinence. Negative IV drug use. Negative recent trauma <KATH Aiken - Last Filed: 07/25/22 17:35> Differential Diagnosis Differential Diagnoses: The differential diagnosis associated with the presentation includes (Kidney stones, pyelonephritis, spinal fracture, lumbar radiculopathy, diverticulitis, UTI) <KATH Aiken - Last Filed: 07/25/22 17:35> Admission/Observation Consideration of admission/observation: Escalation of care including admission/observation considered <KATH Aiken - Last Filed: 07/25/22 17:35> Lab Data [facility] Lab Attestation statement: I reviewed the patient's lab results. <KATH Aiken - Last Filed: 07/25/22 17:35> Result Diagrams: 07/24/22 19:55 07/24/22 19:55 <Jordon Hidalgo - Last Filed: 07/24/22 20:00> Labs: Lab Results 07/24/22 07/24/22 07/24/22 Range/Units 19:55 19:55 19:55 WBC 8.7 (4.8-10.8) X10*3/uL RBC 3.96 L (4.20-5.50) X10*6/uL Hgb 12.6 (12.0-16.0) g/dl Hct 37.0 (37.0-47.0) % MCV 93.4 (80.0-98.0) fL MCH 31.8 (27.0-33.0) pg MCHC 34.1 (31.0-35.0) g/dl RDW 13.3 (11.0-16.0) % Plt Count 276 D (160-400) X10*3/uL MPV 9.4 (9.4-12.3) fL Immature Gran % (Auto) 0.2 (0.0-0.4) % Neut % (Auto) 54.4 (45-73) % Lymph % (Auto) 38.6 (20-40) % [place] % (Auto) 5.0 (2-11) % Eos % (Auto) 1.5 (0-4) % Baso % (Auto) 0.3 (0-2) % Lymph # (Auto) 3.4 (1.2-4.9) X10*3/uL [place] # (Auto) 0.4 (0.1-1.2) X10*3/uL Eos # (Auto) 0.1 (0.0-0.4) X10*3/uL Baso # (Auto) 0.0 (0.0-0.2) X10*3/uL Abs Immat Gran (auto) 0.02 (0.00-0.03) X10*3/uL Absolute Neuts (auto) 4.7 (2.0-8.3) x10*3/uL Absolute Nucleated RBC 0.000 (0.0-0.012) X10*3/uL Nucleated RBC % (auto) 0.0 (0.0-0.2) /100WBC Sodium 138 (135-145) mmol/L Potassium 3.7 (3.3-5.1) mmol/L Chloride 103 (96-108) mmol/L Carbon Dioxide 28 (22-29) mmol/L Anion Gap 11 L (12-20) BUN 11 (9-16) mg/dL Creatinine 0.81 (0.5-1.4) mg/dL Estim Creat Clear Calc 73.3 Estimated GFR > 60 Random Glucose 105 (60-115) mg/dL Calcium 9.2 (8.4-10.2) mg/dL Urine Color Yellow Urine Appearance Cloudy Urine pH >= 9.0 (5.0-9.0) Ur Specific [place] 1.020 (1.005-1.025) Urine Protein Trace (Neg-Trace) mg/dL Urine Glucose (UA) Negative (Negative) mg/dL Urine Ketones Negative (Negative) mg/dL Urine Blood Trace H (Negative) Urine Nitrite Negative (Negative) Ur Leukocyte Esterase Negative (Negative) Urine RBC 11-20 H (0-2) /HPF Urine WBC 0-5 (0-5) /HPF Ur Squamous Epith Cells 3-5 (0-2) /HPF Urine Bacteria None Seen (None Seen) Hyaline Casts 0-2 (0-2) /LPF <Jordon Hidalgo - Last Filed: 07/24/22 20:00> Lab Results 07/24/22 07/24/22 07/24/22 Range/Units 19:55 19:55 19:55 WBC 8.7 (4.8-10.8) X10*3/uL RBC 3.96 L (4.20-5.50) X10*6/uL Hgb 12.6 (12.0-16.0) g/dl Hct 37.0 (37.0-47.0) % MCV 93.4 (80.0-98.0) fL MCH 31.8 (27.0-33.0) pg MCHC 34.1 (31.0-35.0) g/dl RDW 13.3 (11.0-16.0) % Plt Count 276 D (160-400) X10*3/uL MPV 9.4 (9.4-12.3) fL Immature Gran % (Auto) 0.2 (0.0-0.4) % Neut % (Auto) 54.4 (45-73) % Lymph % (Auto) 38.6 (20-40) % [place] % (Auto) 5.0 (2-11) % Eos % (Auto) 1.5 (0-4) % Baso % (Auto) 0.3 (0-2) % Lymph # (Auto) 3.4 (1.2-4.9) X10*3/uL [place] # (Auto) 0.4 (0.1-1.2) X10*3/uL Eos # (Auto) 0.1 (0.0-0.4) X10*3/uL Baso # (Auto) 0.0 (0.0-0.2) X10*3/uL Abs Immat Gran (auto) 0.02 (0.00-0.03) X10*3/uL Absolute Neuts (auto) 4.7 (2.0-8.3) x10*3/uL Absolute Nucleated RBC 0.000 (0.0-0.012) X10*3/uL Nucleated RBC % (auto) 0.0 (0.0-0.2) /100WBC Sodium 138 (135-145) mmol/L Potassium 3.7 (3.3-5.1) mmol/L Chloride 103 (96-108) mmol/L Carbon Dioxide 28 (22-29) mmol/L Anion Gap 11 L (12-20) BUN 11 (9-16) mg/dL Creatinine 0.81 (0.5-1.4) mg/dL Estim Creat Clear Calc 73.3 Estimated GFR > 60 Random Glucose 105 (60-115) mg/dL Calcium 9.2 (8.4-10.2) mg/dL Urine Color Yellow Urine Appearance Cloudy Urine pH >= 9.0 (5.0-9.0) Ur Specific [place] 1.020 (1.005-1.025) Urine Protein Trace (Neg-Trace) mg/dL Urine Glucose (UA) Negative (Negative) mg/dL Urine Ketones Negative (Negative) mg/dL Urine Blood Trace H (Negative) Urine Nitrite Negative (Negative) Ur Leukocyte Esterase Negative (Negative) Urine RBC 11-20 H (0-2) /HPF Urine WBC 0-5 (0-5) /HPF Ur Squamous Epith Cells 3-5 (0-2) /HPF Urine Bacteria None Seen (None Seen) Hyaline Casts 0-2 (0-2) /LPF <KATH Aiken - Last Filed: 07/25/22 17:35> Radiology Impression Discussion of test interpretation with radiology: I have reviewed the radiologist's reading. <KATH Aiken - Last Filed: 07/25/22 17:35> Prescription Management I considered prescription management with: Pain Medication <KATH Aiken - Last Filed: 07/25/22 17:35> Discharge Plan Discharge Clinical Impression: Lumbar radiculopathy <Jordon Hidalgo - Last Filed: 07/24/22 20:00> Patient Disposition: Home, Self-Care <Jordon Hidalgo - Last Filed: 07/24/22 20:00> Instructions: Lumbar Radiculopathy (ED) <Jordon Hidalgo - Last Filed: 07/24/22 20:00> Additional Instructions: Your CT scan shows extensive lumbar radiculopathy with disc bulging. Probably developing herniated disc. Return to the ED for worsening back pain, urinary/bowel incontinence, fever, chills, nausea, vomiting, abdominal pain, vaginal discharge, vaginal bleeding, fever, chills, flank pain, weakness, or any other concerning symptoms. <Jordon Hidalgo - Last Filed: 07/24/22 20:00> Prescriptions: New naproxen 500 mg tablet 500 mg PO BID PRN (Reason: pain) 7 Days Qty: 14 0RF prednisone 20 mg tablet 40 mg PO DAILY 5 Days Qty: 10 0RF No Action metronidazole 0.75 % (37.5mg/5 gram) gel 1 appful vaginal BEDTIME 5 Days Qty: 70 0RF cyclobenzaprine 10 mg tablet 10 mg PO TID Qty: 10 0RF albuterol sulfate 90 mcg/actuation HFA aerosol inhaler 2 puff inhalation Q6H PRN (Reason: shortness of breath or wheezing) Qty: 8.5 0RF lidocaine [Lidoderm] 5 % adhesive patch,medicated 1 patch topical DAILY MDD remove after 12 hours PRN (Reason: pain) Qty: 30 0RF Rx Instructions: leave on most painful area for up to 12 hrs naproxen [Naprosyn] 500 mg tablet 500 mg PO BID Qty: 20 0RF cefuroxime axetil 250 mg tablet 250 mg PO BID 7 Days Qty: 14 0RF tramadol 50 mg tablet 50 mg PO Q8H PRN (Reason: pain) Qty: 14 0RF albuterol sulfate 90 mcg/actuation HFA aerosol inhaler 1 inh inhalation QID PRN (Reason: shortness of breath or wheezing) Qty: 6.7 0RF Robitussin Cough-Chest Jarod DM 5-100 mg/5 mL liquid 10 ml PO Q4-8H PRN (Reason: cough) Qty: 118 0RF benzonatate 100 mg capsule 100 mg PO BID PRN (Reason: cough) Qty: 14 0RF nitrofurantoin monohyd/m-cryst [Macrobid] 100 mg capsule 100 mg PO Q12H 5 Days Qty: 10 0RF Rx Instructions: must administer with a meal/food diclofenac sodium 75 mg tablet,delayed release (DR/EC) 75 mg PO BID baclofen 20 mg tablet 20 mg PO TID fluticasone propionate 50 mcg/actuation spray,suspension 2 spray intranasal DAILY gabapentin 600 mg tablet 800 mg PO TID lorazepam 1 mg tablet 1 mg PO DAILY loratadine 10 mg capsule 10 mg PO DAILY paroxetine HCl [Paxil] 40 mg tablet 50 mg PO DAILY mirtazapine [Remeron] 15 mg tablet 15 mg PO DAILY ibuprofen 600 mg tablet 800 mg PO Q6H PRN (Reason: pain) sumatriptan succinate 50 mg tablet 0 mg PO famotidine 40 mg tablet 40 mg PO BEDTIME nitrofurantoin monohyd/m-cryst [Macrobid] 100 mg capsule 100 mg PO BID 5 Days Qty: 10 0RF norethindrone (contraceptive) [Ortho Micronor] 0.35 mg tablet 0.35 mg PO DAILY lactulose 10 gram/15 mL solution 10 g PO DAILY doxycycline hyclate 100 mg capsule 100 mg PO BID methocarbamol 750 mg tablet 750 mg PO BEDTIME hydroxyzine pamoate 25 mg capsule 50 mg PO hydrochlorothiazide 12.5 mg tablet 12.5 mg PO DAILY bupropion HCl 300 mg tablet extended release 24 hr 300 mg PO QPM trazodone 150 mg tablet 150 mg PO DAILY <Jordon Hidalgo - Last Filed: 07/24/22 20:00> Stand Alone Forms: Work/School Release <Jordon Hidalgo - Last Filed: 07/24/22 20:00> Interventions: ED Discharge Assessment Last Done: 07/25/22 02:11 <Jordon Hidalgo - Last Filed: 07/24/22 20:00> Discharge Date/Time: 07/25/22 02:12 <Jordon Hidalgo - Last Filed: 07/24/22 20:00> Print Language: Turkmen <Jordon Hidalgo - Last Filed: 07/24/22 20:00>
[2022-07-24 20:00] VITALS: BP 130/60; PULSE 82; RESP 18; TEMP 36.6; O2SAT 98
[2022-07-24 20:03] LABS: MANUAL DIFF FLAG NO
[2022-07-24 20:05] LABS: Basophils Percent Auto 0.3 % (0-2); Eosinophils Absolute Auto 0.1 X10*3/uL (0.0-0.4); Eosinophils Percent Auto 1.5 % (0-4); Hemoglobin 12.6 g/dl (12.0-16.0); Imm Gran Abs Auto 0.02 X10*3/uL (0.00-0.03); Imm Gran Pct Auto 0.2 % (0.0-0.4); Lymphocytes Absolute Auto 3.4 X10*3/uL (1.2-4.9); Lymphocytes Percent Auto 38.6 % (20-40); Mean Corpuscular HGB Conc 34.1 g/dl (31.0-35.0); Mean Corpuscular Hemoglobin 31.8 pg (27.0-33.0); Mean Corpuscular Volume 93.4 fL (80.0-98.0); Mean Platelet Volume 9.4 fL (9.4-12.3); Monocytes Absolute Auto 0.4 X10*3/uL (0.1-1.2); Neutrophils Absolute Auto 4.7 x10*3/uL (2.0-8.3); Neutrophils Percent Auto 54.4 % (45-73); Platelet Count 276 X10*3/uL (160-400); Red Blood Count 3.96 X10*6/uL (4.20-5.50); Red Cell Distribution Width 13.3 % (11.0-16.0); White Blood Count 8.7 X10*3/uL (4.8-10.8)
[2022-07-24 20:06] LABS: Appearance Urine Cloudy; Color Urine Yellow; Glucose Urine UA Negative (Negative); Leukocyte Esterase Urine Negative (Negative); Nitrite Urine Negative (Negative); PH >= 9.0 (5.0-9.0); UMIC TRIGGER UACC YES; Urine Blood Trace (Negative); Urine Ketones Negative (Negative); Urine Protein Trace mg/dL (Neg-Trace)
[2022-07-24 20:10] LABS: Bacteria Urine None Seen (None Seen); Hyaline Casts Urine 0-2 /LPF (0-2); WBC Urine 0-5 /HPF (0-5)
[2022-07-24 20:24] LABS: Anion Gap 11 (12-20); Blood Urea Nitrogen 11 mg/dL (9-16); Calcium 9.2 mg/dL (8.4-10.2); Carbon Dioxide 28 mmol/L (22-29); Chloride 103 mmol/L (96-108); Creatinine Clr Calc Pharmacy 73.3; Estimated Glomerular Filt Rate > 60; Glucose Random 105 mg/dL (60-115); Potassium 3.7 mmol/L (3.3-5.1); Sodium 138 mmol/L (135-145)
[2022-07-24] MEDS: Ketorolac Tromethamine 30 MG/ML VIAL IVPUSH (21:59)
[2022-07-24 22:00] VITALS: BP 132/58; PULSE 80; RESP 16; TEMP 36.5; O2SAT 98
[2022-07-24] MEDS: Morphine Sulfate 4 MG/ML CARTRIDGE IVPUSH (22:57)
[2022-07-24 23:58] VITALS: BP 130/70; PULSE 62; RESP 16; TEMP 36.6; O2SAT 98
== END 2022-07-25 02:12 | disposition home or self-care (01) ==
PROVIDERS: Physician Assistant; Emergency Provider Emergency Medicine; PCP Internal Medicine
DX: M54.16 Radiculopathy, lumbar region (principal); Z79.899 Other long term (current) drug therapy
CPT/HCPCS: 36415; 74176; 80048; 81001; 85025; 96374; 96375; 99284; J1885; J2270

== ENCOUNTER 2022-08-08 16:43 | Emergency (ER) | payer MEDICAID, SELFPAY ==
[2022-08-08 16:55] VITALS: BP 139/87; PULSE 112; RESP 18; TEMP 36.8; O2SAT 97; BMI 23.7
--- NOTE | 2022-08-08 16:55 | ED_ITS ---
HPI - General Adult General Chief complaint: Headache <KATH Wren - Last Filed: 08/08/22 16:58> Stated complaint: dizziness/high bp <KATH Wren - Last Filed: 08/08/22 16:58> Time Seen by Provider: 08/08/22 18:02 <KATH Wren - Last Filed: 08/08/22 16:58> Source: patient <Laura Adkins MD - Last Filed: 08/08/22 22:52> Mode of arrival: ambulatory <Laura Adkins MD - Last Filed: 08/08/22 22:52> History of Present Illness HPI narrative: 47-year-old female with known hypertension presents with complaints of h eadache, tachycardia, weakness as well as elevated blood pressure in tremors. Otherwise, she denies any fever, chills, GI or symptoms. <Laura Adkins MD - Last Filed: 08/08/22 22:52> Related Data Home medications: Home Medications Medication Instructions Recorded Confirmed loratadine 10 mg capsule 10 mg PO DAILY 02/20/20 01/27/22 paroxetine HCl 40 mg tablet (Paxil) 50 mg PO DAILY 02/20/20 01/27/22 mirtazapine 15 mg tablet (Remeron) 15 mg PO DAILY 05/13/20 01/27/22 baclofen 20 mg tablet 20 mg PO TID 01/06/21 01/27/22 diclofenac sodium 75 mg 75 mg PO BID 01/06/21 01/27/22 tablet,delayed release fluticasone propionate 50 2 spray intranasal DAILY 01/06/21 01/27/22 mcg/actuation nasal spray,suspension doxycycline hyclate 100 mg capsule 100 mg PO BID 02/09/21 01/27/22 lactulose 10 gram/15 mL oral 10 g PO DAILY 02/09/21 01/27/22 solution methocarbamol 750 mg tablet 750 mg PO BEDTIME 02/09/21 01/27/22 norethindrone (contraceptive) 0.35 0.35 mg PO DAILY 02/09/21 01/27/22 mg tablet (Ortho Micronor) hydroxyzine pamoate 25 mg capsule 50 mg PO 10/29/21 01/27/22 bupropion HCl 300 mg 24 hr tablet, 300 mg PO QPM 01/07/22 01/27/22 extended release hydrochlorothiazide 12.5 mg tablet 12.5 mg PO DAILY 01/07/22 01/27/22 trazodone 150 mg tablet 150 mg PO DAILY 01/07/22 01/27/22 famotidine 40 mg tablet 40 mg PO BEDTIME 01/27/22 01/27/22 gabapentin 600 mg tablet 800 mg PO TID Pain 01/27/22 01/27/22 ibuprofen 600 mg tablet 800 mg PO Q6H PRN pain 01/27/22 01/27/22 lorazepam 1 mg tablet 1 mg PO DAILY Anxiety 01/27/22 01/27/22 sumatriptan succinate 50 mg tablet 0 mg PO 01/27/22 01/27/22 Previous Rx's Medication Instructions Recorded cyclobenzaprine 10 mg tablet 10 mg PO TID #10 tabs 10/26/20 albuterol sulfate 90 mcg/actuation 2 puff inhalation Q6H PRN 11/14/20 aerosol inhaler shortness of breath or wheezing #8.5 grams lidocaine 5 % topical patch 1 patch topical DAILY PRN pain #30 12/08/20 (Lidoderm) ea tramadol 50 mg tablet 50 mg PO Q8H PRN pain #14 tabs 03/24/21 albuterol sulfate 90 mcg/actuation 1 inh inhalation QID PRN shortness 07/19/21 aerosol inhaler of breath or wheezing #6.7 grams benzonatate 100 mg capsule 100 mg PO BID PRN cough #14 caps 07/21/21 dextromethorphan-guaifenesin 5 10 ml PO Q4-8H PRN cough #118 mL 07/21/21 mg-100 mg/5 mL oral liquid (Robitussin Cough-Chest Congestion DM) nitrofurantoin 100 mg PO Q12H 5 days #10 caps 12/13/21 monohydrate/macrocrystals 100 mg capsule (Macrobid) naproxen 500 mg tablet (Naprosyn) 500 mg PO BID #20 tabs 12/22/21 cefuroxime axetil 250 mg tablet 250 mg PO BID 7 days #14 tabs 04/13/22 nitrofurantoin 100 mg PO BID 5 days #10 caps 06/16/22 monohydrate/macrocrystals 100 mg capsule (Macrobid) metronidazole 0.75 % (37.5 mg/5 1 appful vaginal BEDTIME 5 days 06/18/22 gram) vaginal gel #70 grams naproxen 500 mg tablet 500 mg PO BID PRN pain 7 days #14 07/25/22 tabs prednisone 20 mg tablet 40 mg PO DAILY 5 days #10 tabs 07/25/22 <KATH Wren - Last Filed: 08/08/22 16:58> Allergies/adverse reactions: Allergies Allergy/AdvReac Type Severity Reaction Status Date / Time dust Allergy Mild unknown Uncoded 08/08/22 16:55 <KATH Wren - Last Filed: 08/08/22 16:58> Review of Systems Review of Systems: And negatives as stated in HPI <Laura Adkins MD - Last Filed: 08/08/22 22:52> PMFSH Past Medical History Source: nursing notes reviewed <Laura Adkins MD - Last Filed: 08/08/22 22:52> Medical History: Medical History Anxiety and depression Arthritis Asthma Chronic pain syndrome COVID-19 Depression Disc degeneration, lumbar Fibromyalgia Migraines Seasonal allergies Spondylosis of lumbar spine <KATH Wren - Last Filed: 08/08/22 16:58> Surgical History: Surgical History H/O LEEP History of bilateral tubal ligation History of carpal tunnel release History of salpingo-oophorectomy Hx of colonoscopy <KATH Wren - Last Filed: 08/08/22 16:58> Family History Family History: Family History Sister History of breast cancer, Onset Age: 52 Brother History of bone cancer History of blood disorder History of brain cancer Paternal Aunt History of cancer of uterus <KATH Wren - Last Filed: 08/08/22 16:58> Social History Social History: Social History Alcohol intake: never Patient Tobacco Use Status: Former Tobacco user Cigarettes Per Day: 8 Smoked in Last 30 Days: Yes Use of substances other than those prescribed or required for medical reasons: No Advance Directives: No Advance Directives Information Provided: No Sexual orientation: Straight/Heterosexual Gender identity: Female <KATH Wren - Last Filed: 08/08/22 16:58> Physical Exam ED Vital Signs: Vital Signs - 24 hr 08/08/22 16:55 08/08/22 17:54 08/08/22 21:37 Temperature 98.3 F Pulse Rate 112 H 101 H 87 Respiratory Rate 18 18 Blood Pressure 139/87 119/81 102/72 Pulse Oximetry 97 97 Oxygen Delivery Method Room Air 08/08/22 21:38 08/08/22 21:38 Temperature Pulse Rate 90 111 H Respiratory Rate Blood Pressure 122/76 110/76 Pulse Oximetry Oxygen Delivery Method BMI result Body Mass Index 23.7 <KATH Wren - Last Filed: 08/08/22 16:58> Vital Signs - 24 hr 08/08/22 16:55 08/08/22 17:54 08/08/22 21:37 Temperature 98.3 F Pulse Rate 112 H 101 H 87 Respiratory Rate 18 18 Blood Pressure 139/87 119/81 102/72 Pulse Oximetry 97 97 Oxygen Delivery Method Room Air 08/08/22 21:38 08/08/22 21:38 Temperature Pulse Rate 90 111 H Respiratory Rate Blood Pressure 122/76 110/76 Pulse Oximetry Oxygen Delivery Method BMI result Body Mass Index 23.7 VITAL SIGNS: Reviewed. GENERAL: Well developed, well nourished, in no acute distress. HEAD: Normocephalic/atraumatic EYES: PERRLA, EOMI EARS: Ext canals without abnormality LUNGS: Normal breath sounds. No adventitious sounds or accessory muscle use. SpO2<97> CARDIOVASCULAR: Regular rate and rhythm without noted murmurs, no JVD or lower extremity edema. ABDOMEN: Soft, non-tender, non-distended with bowel sounds. MUSCULOSKELETAL: No tenderness, deformities, or effusions noted on gross inspection. EXTREMITIES: No cyanosis, clubbing or edema. SKIN: Inspection of the skin reveals no rashes NEUROLOGIC: Alert and oriented x 4. Strength somewhat decreased on the left at baseline due to chronic back pain, and sensation to light touch were grossly intact x 4. <Laura Adkins MD - Last Filed: 08/08/22 22:52> Course Course Course Narrative: RME: 47-year-old female with a past medical history HTN, presenting to the ED complaining of elevated BP and heart rate at home with associated headache x today. Also reports CP last night & feeling shaky. denies N/V appear anxious, tachycardic, BP 139/87 EKG, labs ordered Full HPI, ROS and PE to be performed by primary ED provider. <KATH Wren - Last Filed: 08/08/22 16:58> Medical Decision Making Medical Decision Making MDM Narrative: 47-year-old female with history and clinical presentation suggestive of possible hypertension although she reports being compliant with her medications and denies any recent changes in medications. There is no history to suggest acute infection or anemia but will obtain lab work, EKG. Patient does not appear to be hypertensive here in the emergency room. I reviewed all investigations and my interpretation is that patient may have been suffering from poor p.o. intake. My interpretation is there is no evidence of infection, anemia, electrolyte abnormalities and patient is not suffering from diarrhea, nausea or vomiting that would otherwise prevent her from drinking more fluids. Orthostatics are otherwise negative and patient was discharged home in stable condition with instructions to follow-up with her primary care provider for evaluation of blood pressure and to continue to drink more fluids. <Laura Adkins MD - Last Filed: 08/08/22 22:52> Differential Diagnosis Please see the discussion above <Laura Adkins MD - Last Filed: 08/08/22 22:52> Lab Data Please see the discussion above <Laura Adkins MD - Last Filed: 08/08/22 22:52> Result Diagrams: 08/08/22 17:20 08/08/22 17:20 <KATH Wren - Last Filed: 08/08/22 16:58> Labs: Lab Results 08/08/22 08/08/22 08/08/22 Range/Units 17:20 17:20 17:20 WBC 8.6 (4.8-10.8) X10*3/uL RBC 4.31 (4.20-5.50) X10*6/uL Hgb 13.5 (12.0-16.0) g/dl Hct 40.4 (37.0-47.0) % MCV 93.7 (80.0-98.0) fL MCH 31.3 (27.0-33.0) pg MCHC 33.4 (31.0-35.0) g/dl RDW 13.4 (11.0-16.0) % Plt Count 238 (160-400) X10*3/uL MPV 9.4 (9.4-12.3) fL Immature Gran % (Auto) 0.5 H (0.0-0.4) % Neut % (Auto) 59.0 (45-73) % Lymph % (Auto) 32.0 (20-40) % [place] % (Auto) 6.8 (2-11) % Eos % (Auto) 1.2 (0-4) % Baso % (Auto) 0.5 (0-2) % Lymph # (Auto) 2.7 (1.2-4.9) X10*3/uL [place] # (Auto) 0.6 (0.1-1.2) X10*3/uL Eos # (Auto) 0.1 (0.0-0.4) X10*3/uL Baso # (Auto) 0.0 (0.0-0.2) X10*3/uL Abs Immat Gran (auto) 0.04 H (0.00-0.03) X10*3/uL Absolute Neuts (auto) 5.1 (2.0-8.3) x10*3/uL Absolute Nucleated RBC 0.000 (0.0-0.012) X10*3/uL Nucleated RBC % (auto) 0.0 (0.0-0.2) /100WBC Sodium 139 (135-145) mmol/L Potassium 3.3 (3.3-5.1) mmol/L Chloride 104 (96-108) mmol/L Carbon Dioxide 24 (22-29) mmol/L Anion Gap 14 (12-20) BUN 6 L (9-16) mg/dL Creatinine 0.71 (0.5-1.4) mg/dL Estim Creat Clear Calc 82.7 Estimated GFR > 60 Random Glucose 110 (60-115) mg/dL Calcium 9.4 (8.4-10.2) mg/dL Magnesium 1.9 (1.6-2.6) mg/dL Total Bilirubin 0.3 (0.0-1.0) mg/dL Direct Bilirubin 0.1 (0.0-0.5) mg/dL AST 17 (5-31) U/L ALT 20 (0-31) U/L Alkaline Phosphatase 41 (39-117) U/L Troponin I High Sens < 2.7 (<3.5-17.0) ng/L Total Protein 7.1 (6.5-8.0) g/dL Albumin 4.2 (3.5-5.0) g/dL TSH 3.02 (0.32-4.0) uIU/mL Beta HCG, Quant < 2 mIU/mL Urine Color Urine Appearance Urine pH (5.0-9.0) Ur Specific [place] (1.005-1.025) Urine Protein (Neg-Trace) mg/dL Urine Glucose (UA) (Negative) mg/dL Urine Ketones (Negative) mg/dL Urine Blood (Negative) Urine Nitrite (Negative) Ur Leukocyte Esterase (Negative) Urine RBC (0-2) /HPF Urine WBC (0-5) /HPF Ur Squamous Epith Cells (0-2) /HPF Urine Bacteria (None Seen) Hyaline Casts (0-2) /LPF Urine Opiates Screen (Not Detect) Urine Fentanyl Screen (Not Detect) Ur Barbiturates Screen (Not Detect) Ur Phencyclidine Scrn (Not Detect) Ur Amphetamines Screen (Not Detect) U Benzodiazepines Scrn (Not Detect) Urine Cocaine Screen (Not Detect) U Marijuana (THC) Screen (Not Detect) 08/08/22 08/08/22 Range/Units 18:25 18:25 WBC (4.8-10.8) X10*3/uL RBC (4.20-5.50) X10*6/uL Hgb (12.0-16.0) g/dl Hct (37.0-47.0) % MCV (80.0-98.0) fL MCH (27.0-33.0) pg MCHC (31.0-35.0) g/dl RDW (11.0-16.0) % Plt Count (160-400) X10*3/uL MPV (9.4-12.3) fL Immature Gran % (Auto) (0.0-0.4) % Neut % (Auto) (45-73) % Lymph % (Auto) (20-40) % [place] % (Auto) (2-11) % Eos % (Auto) (0-4) % Baso % (Auto) (0-2) % Lymph # (Auto) (1.2-4.9) X10*3/uL [place] # (Auto) (0.1-1.2) X10*3/uL Eos # (Auto) (0.0-0.4) X10*3/uL Baso # (Auto) (0.0-0.2) X10*3/uL Abs Immat Gran (auto) (0.00-0.03) X10*3/uL Absolute Neuts (auto) (2.0-8.3) x10*3/uL Absolute Nucleated RBC (0.0-0.012) X10*3/uL Nucleated RBC % (auto) (0.0-0.2) /100WBC Sodium (135-145) mmol/L Potassium (3.3-5.1) mmol/L Chloride (96-108) mmol/L Carbon Dioxide (22-29) mmol/L Anion Gap (12-20) BUN (9-16) mg/dL Creatinine (0.5-1.4) mg/dL Estim Creat Clear Calc Estimated GFR Random Glucose (60-115) mg/dL Calcium (8.4-10.2) mg/dL Magnesium (1.6-2.6) mg/dL Total Bilirubin (0.0-1.0) mg/dL Direct Bilirubin (0.0-0.5) mg/dL AST (5-31) U/L ALT (0-31) U/L Alkaline Phosphatase (39-117) U/L Troponin I High Sens (<3.5-17.0) ng/L Total Protein (6.5-8.0) g/dL Albumin (3.5-5.0) g/dL TSH (0.32-4.0) uIU/mL Beta HCG, Quant mIU/mL Urine Color Yellow Urine Appearance Clear Urine pH 7.5 (5.0-9.0) Ur Specific [place] 1.010 (1.005-1.025) Urine Protein Negative (Neg-Trace) mg/dL Urine Glucose (UA) Negative (Negative) mg/dL Urine Ketones Negative (Negative) mg/dL Urine Blood Trace H (Negative) Urine Nitrite Negative (Negative) Ur Leukocyte Esterase Negative (Negative) Urine RBC 3-5 H (0-2) /HPF Urine WBC 0-5 (0-5) /HPF Ur Squamous Epith Cells 0-2 (0-2) /HPF Urine Bacteria None Seen (None Seen) Hyaline Casts 0-2 (0-2) /LPF Urine Opiates Screen Not Detected (Not Detect) Urine Fentanyl Screen Not Detected (Not Detect) Ur Barbiturates Screen Not Detected (Not Detect) Ur Phencyclidine Scrn Not Detected (Not Detect) Ur Amphetamines Screen Not Detected (Not Detect) U Benzodiazepines Scrn Not Detected (Not Detect) Urine Cocaine Screen Not Detected (Not Detect) U Marijuana (THC) Screen Not Detected (Not Detect) <KATH Wren - Last Filed: 08/08/22 16:58> Lab Results 08/08/22 08/08/22 08/08/22 Range/Units 17:20 17:20 17:20 WBC 8.6 (4.8-10.8) X10*3/uL RBC 4.31 (4.20-5.50) X10*6/uL Hgb 13.5 (12.0-16.0) g/dl Hct 40.4 (37.0-47.0) % MCV 93.7 (80.0-98.0) fL MCH 31.3 (27.0-33.0) pg MCHC 33.4 (31.0-35.0) g/dl RDW 13.4 (11.0-16.0) % Plt Count 238 (160-400) X10*3/uL MPV 9.4 (9.4-12.3) fL Immature Gran % (Auto) 0.5 H (0.0-0.4) % Neut % (Auto) 59.0 (45-73) % Lymph % (Auto) 32.0 (20-40) % [place] % (Auto) 6.8 (2-11) % Eos % (Auto) 1.2 (0-4) % Baso % (Auto) 0.5 (0-2) % Lymph # (Auto) 2.7 (1.2-4.9) X10*3/uL [place] # (Auto) 0.6 (0.1-1.2) X10*3/uL Eos # (Auto) 0.1 (0.0-0.4) X10*3/uL Baso # (Auto) 0.0 (0.0-0.2) X10*3/uL Abs Immat Gran (auto) 0.04 H (0.00-0.03) X10*3/uL Absolute Neuts (auto) 5.1 (2.0-8.3) x10*3/uL Absolute Nucleated RBC 0.000 (0.0-0.012) X10*3/uL Nucleated RBC % (auto) 0.0 (0.0-0.2) /100WBC Sodium 139 (135-145) mmol/L Potassium 3.3 (3.3-5.1) mmol/L Chloride 104 (96-108) mmol/L Carbon Dioxide 24 (22-29) mmol/L Anion Gap 14 (12-20) BUN 6 L (9-16) mg/dL Creatinine 0.71 (0.5-1.4) mg/dL Estim Creat Clear Calc 82.7 Estimated GFR > 60 Random Glucose 110 (60-115) mg/dL Calcium 9.4 (8.4-10.2) mg/dL Magnesium 1.9 (1.6-2.6) mg/dL Total Bilirubin 0.3 (0.0-1.0) mg/dL Direct Bilirubin 0.1 (0.0-0.5) mg/dL AST 17 (5-31) U/L ALT 20 (0-31) U/L Alkaline Phosphatase 41 (39-117) U/L Troponin I High Sens < 2.7 (<3.5-17.0) ng/L Total Protein 7.1 (6.5-8.0) g/dL Albumin 4.2 (3.5-5.0) g/dL TSH 3.02 (0.32-4.0) uIU/mL Beta HCG, Quant < 2 mIU/mL Urine Color Urine Appearance Urine pH (5.0-9.0) Ur Specific [place] (1.005-1.025) Urine Protein (Neg-Trace) mg/dL Urine Glucose (UA) (Negative) mg/dL Urine Ketones (Negative) mg/dL Urine Blood (Negative) Urine Nitrite (Negative) Ur Leukocyte Esterase (Negative) Urine RBC (0-2) /HPF Urine WBC (0-5) /HPF Ur Squamous Epith Cells (0-2) /HPF Urine Bacteria (None Seen) Hyaline Casts (0-2) /LPF Urine Opiates Screen (Not Detect) Urine Fentanyl Screen (Not Detect) Ur Barbiturates Screen (Not Detect) Ur Phencyclidine Scrn (Not Detect) Ur Amphetamines Screen (Not Detect) U Benzodiazepines Scrn (Not Detect) Urine Cocaine Screen (Not Detect) U Marijuana (THC) Screen (Not Detect) 08/08/22 08/08/22 Range/Units 18:25 18:25 WBC (4.8-10.8) X10*3/uL RBC (4.20-5.50) X10*6/uL Hgb (12.0-16.0) g/dl Hct (37.0-47.0) % MCV (80.0-98.0) fL MCH (27.0-33.0) pg MCHC (31.0-35.0) g/dl RDW (11.0-16.0) % Plt Count (160-400) X10*3/uL MPV (9.4-12.3) fL Immature Gran % (Auto) (0.0-0.4) % Neut % (Auto) (45-73) % Lymph % (Auto) (20-40) % [place] % (Auto) (2-11) % Eos % (Auto) (0-4) % Baso % (Auto) (0-2) % Lymph # (Auto) (1.2-4.9) X10*3/uL [place] # (Auto) (0.1-1.2) X10*3/uL Eos # (Auto) (0.0-0.4) X10*3/uL Baso # (Auto) (0.0-0.2) X10*3/uL Abs Immat Gran (auto) (0.00-0.03) X10*3/uL Absolute Neuts (auto) (2.0-8.3) x10*3/uL Absolute Nucleated RBC (0.0-0.012) X10*3/uL Nucleated RBC % (auto) (0.0-0.2) /100WBC Sodium (135-145) mmol/L Potassium (3.3-5.1) mmol/L Chloride (96-108) mmol/L Carbon Dioxide (22-29) mmol/L Anion Gap (12-20) BUN (9-16) mg/dL Creatinine (0.5-1.4) mg/dL Estim Creat Clear Calc Estimated GFR Random Glucose (60-115) mg/dL Calcium (8.4-10.2) mg/dL Magnesium (1.6-2.6) mg/dL Total Bilirubin (0.0-1.0) mg/dL Direct Bilirubin (0.0-0.5) mg/dL AST (5-31) U/L ALT (0-31) U/L Alkaline Phosphatase (39-117) U/L Troponin I High Sens (<3.5-17.0) ng/L Total Protein (6.5-8.0) g/dL Albumin (3.5-5.0) g/dL TSH (0.32-4.0) uIU/mL Beta HCG, Quant mIU/mL Urine Color Yellow Urine Appearance Clear Urine pH 7.5 (5.0-9.0) Ur Specific [place] 1.010 (1.005-1.025) Urine Protein Negative (Neg-Trace) mg/dL Urine Glucose (UA) Negative (Negative) mg/dL Urine Ketones Negative (Negative) mg/dL Urine Blood Trace H (Negative) Urine Nitrite Negative (Negative) Ur Leukocyte Esterase Negative (Negative) Urine RBC 3-5 H (0-2) /HPF Urine WBC 0-5 (0-5) /HPF Ur Squamous Epith Cells 0-2 (0-2) /HPF Urine Bacteria None Seen (None Seen) Hyaline Casts 0-2 (0-2) /LPF Urine Opiates Screen Not Detected (Not Detect) Urine Fentanyl Screen Not Detected (Not Detect) Ur Barbiturates Screen Not Detected (Not Detect) Ur Phencyclidine Scrn Not Detected (Not Detect) Ur Amphetamines Screen Not Detected (Not Detect) U Benzodiazepines Scrn Not Detected (Not Detect) Urine Cocaine Screen Not Detected (Not Detect) U Marijuana (THC) Screen Not Detected (Not Detect) <Laura Adkins MD - Last Filed: 08/08/22 22:52> Independent Interpretation I performed an independent interpretation of an: EKG <Laura Adkins MD - Last Filed: 08/08/22 22:52> Interpretation: Sinus tachycardia, HR-102, no STEMI, RI/QRS/QTC is within normal limits. <Laura Adkins MD - Last Filed: 08/08/22 22:52> External Record Review External record reviewed: Outpatient record and Prior outpatient labs <Laura Adkins MD - Last Filed: 08/08/22 22:52> Discharge Plan Discharge Clinical Impression: Dehydration, Headache, Hypertension <KATH Wren - Last Filed: 08/08/22 16:58> Patient Disposition: Home, Self-Care <KATH Wren - Last Filed: 08/08/22 16:58> Instructions: Dehydration (ED), General Headache (ED), Hypertension (ED) <KATH Wren - Last Filed: 08/08/22 16:58> Additional Instructions: 1. Resume all home medications as prescribed. Increase the amount of water intake. 2. Please follow-up with primary care provider by calling the office in Tuesday. Return to the ER for any worsening symptoms. <KATH Wren - Last Filed: 08/08/22 16:58> Prescriptions: No Action metronidazole 0.75 % (37.5mg/5 gram) gel 1 appful vaginal BEDTIME 5 Days Qty: 70 0RF cyclobenzaprine 10 mg tablet 10 mg PO TID Qty: 10 0RF albuterol sulfate 90 mcg/actuation HFA aerosol inhaler 2 puff inhalation Q6H PRN (Reason: shortness of breath or wheezing) Qty: 8.5 0RF lidocaine [Lidoderm] 5 % adhesive patch,medicated 1 patch topical DAILY MDD remove after 12 hours PRN (Reason: pain) Qty: 30 0RF Rx Instructions: leave on most painful area for up to 12 hrs naproxen [Naprosyn] 500 mg tablet 500 mg PO BID Qty: 20 0RF cefuroxime axetil 250 mg tablet 250 mg PO BID 7 Days Qty: 14 0RF tramadol 50 mg tablet 50 mg PO Q8H PRN (Reason: pain) Qty: 14 0RF albuterol sulfate 90 mcg/actuation HFA aerosol inhaler 1 inh inhalation QID PRN (Reason: shortness of breath or wheezing) Qty: 6.7 0RF Robitussin Cough-Chest Jarod DM 5-100 mg/5 mL liquid 10 ml PO Q4-8H PRN (Reason: cough) Qty: 118 0RF benzonatate 100 mg capsule 100 mg PO BID PRN (Reason: cough) Qty: 14 0RF nitrofurantoin monohyd/m-cryst [Macrobid] 100 mg capsule 100 mg PO Q12H 5 Days Qty: 10 0RF Rx Instructions: must administer with a meal/food naproxen 500 mg tablet 500 mg PO BID PRN (Reason: pain) 7 Days Qty: 14 0RF prednisone 20 mg tablet 40 mg PO DAILY 5 Days Qty: 10 0RF diclofenac sodium 75 mg tablet,delayed release (DR/EC) 75 mg PO BID baclofen 20 mg tablet 20 mg PO TID fluticasone propionate 50 mcg/actuation spray,suspension 2 spray intranasal DAILY gabapentin 600 mg tablet 800 mg PO TID lorazepam 1 mg tablet 1 mg PO DAILY loratadine 10 mg capsule 10 mg PO DAILY paroxetine HCl [Paxil] 40 mg tablet 50 mg PO DAILY mirtazapine [Remeron] 15 mg tablet 15 mg PO DAILY ibuprofen 600 mg tablet 800 mg PO Q6H PRN (Reason: pain) sumatriptan succinate 50 mg tablet 0 mg PO famotidine 40 mg tablet 40 mg PO BEDTIME nitrofurantoin monohyd/m-cryst [Macrobid] 100 mg capsule 100 mg PO BID 5 Days Qty: 10 0RF norethindrone (contraceptive) [Ortho Micronor] 0.35 mg tablet 0.35 mg PO DAILY lactulose 10 gram/15 mL solution 10 g PO DAILY doxycycline hyclate 100 mg capsule 100 mg PO BID methocarbamol 750 mg tablet 750 mg PO BEDTIME hydroxyzine pamoate 25 mg capsule 50 mg PO hydrochlorothiazide 12.5 mg tablet 12.5 mg PO DAILY bupropion HCl 300 mg tablet extended release 24 hr 300 mg PO QPM trazodone 150 mg tablet 150 mg PO DAILY <KATH Wren - Last Filed: 08/08/22 16:58> Referrals: Dory Ray MD [Primary Care Provider] - <KATH Wren - Last Filed: 08/08/22 16:58>
--- NOTE | 2022-08-08 16:56 | ECG_ITS ---
Test Reason : DIZZINESS Blood Pressure : / mmHG Vent. Rate : 102 BPM Atrial Rate : 102 BPM P-R Int : 140 ms QRS Dur : 080 ms QT Int : 336 ms P-R-T Axes : 067 037 021 degrees QTc Int : 437 ms Sinus tachycardia Otherwise normal ECG When compared with ECG of 22-DEC-2021 07:56, T wave inversion now evident in Inferior leads Referred By: Aubree Melvin Electronically Signed By:NIRMAL ÁLVAREZ
[2022-08-08 17:26] LABS: MANUAL DIFF FLAG NO
[2022-08-08 17:34] LABS: Basophils Percent Auto 0.5 % (0-2); Eosinophils Absolute Auto 0.1 X10*3/uL (0.0-0.4); Eosinophils Percent Auto 1.2 % (0-4); Hematocrit 40.4 % (37.0-47.0); Hemoglobin 13.5 g/dl (12.0-16.0); Imm Gran Abs Auto 0.04 X10*3/uL (0.00-0.03); Imm Gran Pct Auto 0.5 % (0.0-0.4); Lymphocytes Absolute Auto 2.7 X10*3/uL (1.2-4.9); Mean Corpuscular HGB Conc 33.4 g/dl (31.0-35.0); Mean Corpuscular Hemoglobin 31.3 pg (27.0-33.0); Mean Corpuscular Volume 93.7 fL (80.0-98.0); Mean Platelet Volume 9.4 fL (9.4-12.3); Monocytes Absolute Auto 0.6 X10*3/uL (0.1-1.2); Monocytes Percent Auto 6.8 % (2-11); Neutrophils Absolute Auto 5.1 x10*3/uL (2.0-8.3); Platelet Count 238 X10*3/uL (160-400); Red Blood Count 4.31 X10*6/uL (4.20-5.50); Red Cell Distribution Width 13.4 % (11.0-16.0); White Blood Count 8.6 X10*3/uL (4.8-10.8)
[2022-08-08 17:54] VITALS: BP 119/81; PULSE 101; RESP 18; O2SAT 97
[2022-08-08 17:55] LABS: Alanine Aminotransferase 20 U/L (0-31); Albumin Level 4.2 g/dL (3.5-5.0); Alkaline Phosphatase 41 U/L (39-117); Anion Gap 14 (12-20); Aspartate Amino Transferase 17 U/L (5-31); Bilirubin Direct 0.1 mg/dL (0.0-0.5); Bilirubin Total 0.3 mg/dL (0.0-1.0); Blood Urea Nitrogen 6 mg/dL (9-16); Calcium 9.4 mg/dL (8.4-10.2); Carbon Dioxide 24 mmol/L (22-29); Chloride 104 mmol/L (96-108); Creatinine Clr Calc Pharmacy 82.7; Estimated Glomerular Filt Rate > 60; Glucose Random 110 mg/dL (60-115); Magnesium 1.9 mg/dL (1.6-2.6); Potassium 3.3 mmol/L (3.3-5.1); Sodium 139 mmol/L (135-145); Total Protein 7.1 g/dL (6.5-8.0)
[2022-08-08 18:04] LABS: Troponin-I High Sensitivity < 2.7 ng/L (<3.5-17.0)
[2022-08-08 18:10] LABS: TSH reflex Free T4 3.02 uIU/mL (0.32-4.0)
[2022-08-08 18:54] LABS: HCG Quantitative < 2 mIU/mL
[2022-08-08 18:54] LABS: Amphetamine Screen Urine Not Detected (Not Detect); Barbiturates, Urine Not Detected (Not Detect); Benzodiazepines Screen Urine Not Detected (Not Detect); Cannabinoid Screen Urine Not Detected (Not Detect); Cocaine Screen Urine Not Detected (Not Detect); Fentanyl, urine Not Detected (Not Detect); Opiate Screen Urine Not Detected (Not Detect); Phencyclidine Screen Urine Not Detected (Not Detect)
[2022-08-08 19:35] LABS: Color Urine Yellow; Glucose Urine UA Negative (Negative); Leukocyte Esterase Urine Negative (Negative); Nitrite Urine Negative (Negative); PH 7.5 (5.0-9.0); UMIC TRIGGER UACC YES; Urine Blood Trace (Negative); Urine Ketones Negative (Negative); Urine Protein Negative (Neg-Trace)
[2022-08-08 19:36] LABS: Appearance Urine Clear
[2022-08-08 19:54] LABS: Bacteria Urine None Seen (None Seen); Hyaline Casts Urine 0-2 /LPF (0-2); Squamous Epithelial Cell Urine 0-2 /HPF (0-2); WBC Urine 0-5 /HPF (0-5)
[2022-08-08 21:37] VITALS: BP 102/72; PULSE 87
[2022-08-08 21:38] VITALS: BP 110/76; BP 122/76; PULSE 111; PULSE 90
== END 2022-08-08 23:06 | disposition home or self-care (01) ==
PROVIDERS: Physician Assistant; Emergency Provider Student in an Organized Health Care Education/Training Program; PCP Internal Medicine
DX: E86.0 Dehydration (principal); R51.9 Headache, unspecified; R42 Dizziness and giddiness; R00.0 Tachycardia, unspecified; I10 Essential (primary) hypertension; Z79.899 Other long term (current) drug therapy; Z87.891 Personal history of nicotine dependence
CPT/HCPCS: 36415; 80048; 80076; 80307; 81001; 81003; 83735; 84443; 84484; 84702; 85025; 93005; 99284

== ENCOUNTER → 2022-09-02 10:46 | Outpatient (BNVA) | payer MEDICAID, SELFPAY | PROVIDERS: PCP Internal Medicine; Visit Provider Urology | DX: R31.29 Other microscopic hematuria (principal) | CPT/HCPCS: 99202 ==

== ENCOUNTER 2022-09-28 09:31 | Day surgery (SDC) | payer MEDICAID, SELFPAY ==
--- NOTE | 2022-09-27 11:05 | P.CONAN_ITS ---
Documented by User: Mary Billingsley NP 09/27/22 11:08 HPI - Anesthesia Eval Consult details Narrative: 47yo F for Cystoscopy Hydrodistention,poss Bladder biopsy s/p tubal PMFSH Active Problems Active Problems: All Active Problems (Updated 08/10/22 @ 00:33 by Francie Lacy) Vaginal discharge (Acute) Microscopic hematuria (Acute) Ovarian cyst (Acute) Chest pain (Acute) Varicose veins of left lower extremity with inflammation (Acute) Well woman exam (Acute) Metrorrhagia (Acute) Breast lump (Acute) Female pelvic pain (Acute) Endocervical polyp (Acute) Stress incontinence (Acute) Bacterial vaginosis (Acute) Complex ovarian cyst (Acute) COVID-19 (Acute) Abdominal mass, left lower quadrant (Acute) Chronic pain syndrome (Acute) Spondylosis of lumbar spine (Acute) Disc degeneration, lumbar (Acute) Past Medical History Medical History Anxiety and depression Arthritis Asthma Chronic pain syndrome COVID-19 Depression Disc degeneration, lumbar Fibromyalgia Migraines Seasonal allergies Spondylosis of lumbar spine Family History Family History Sister History of breast cancer, Onset Age: 52 Brother History of bone cancer History of blood disorder History of brain cancer Paternal Aunt History of cancer of uterus Surgical History Surgical History H/O LEEP History of bilateral tubal ligation History of carpal tunnel release History of salpingo-oophorectomy Hx of colonoscopy Social History Social History Alcohol intake: never Patient Tobacco Use Status: Current everyday Tobacco user Cigarettes Per Day: 10 Use of substances other than those prescribed or required for medical reasons: No Are you DNR?: No Advance Directives: No Advance Directives Information Provided: Yes Recently lost weight without trying: No Sexual orientation: Straight/Heterosexual Gender identity: Female Meds Allergies Allergy/AdvReac Type Severity Reaction Status Date / Time dust Allergy Mild unknown Uncoded 09/02/22 11:25 Home Medications Medication Instructions Recorded Confirmed Last Taken Type loratadine 10 mg capsule 10 mg PO DAILY 02/20/20 09/24/22 Unknown History baclofen 20 mg tablet 20 mg PO TID 01/06/21 09/24/22 Unknown History diclofenac sodium 75 mg 75 mg PO BID 01/06/21 09/24/22 Unknown History tablet,delayed release fluticasone propionate 50 2 spray intranasal DAILY 01/06/21 09/24/22 Unknown History mcg/actuation nasal spray,suspension doxycycline hyclate 100 mg capsule 100 mg PO BID 02/09/21 09/24/22 Unknown History lactulose 10 gram/15 mL oral 10 g PO DAILY 02/09/21 09/24/22 Unknown History solution methocarbamol 750 mg tablet 750 mg PO BEDTIME 02/09/21 09/24/22 Unknown History hydroxyzine pamoate 25 mg capsule 50 mg PO 10/29/21 01/27/22 Unknown History bupropion HCl 300 mg 24 hr tablet, 300 mg PO QPM 01/07/22 09/24/22 Unknown History extended release hydrochlorothiazide 12.5 mg tablet 12.5 mg PO DAILY 01/07/22 09/24/22 Unknown History trazodone 150 mg tablet 150 mg PO DAILY 01/07/22 09/24/22 Unknown History famotidine 40 mg tablet 40 mg PO BEDTIME 01/27/22 09/24/22 Unknown History gabapentin 600 mg tablet 800 mg PO TID Pain 01/27/22 09/24/22 Unknown History ibuprofen 600 mg tablet 800 mg PO Q6H PRN pain 01/27/22 09/24/22 Unknown History lorazepam 1 mg tablet 1 mg PO DAILY Anxiety 01/27/22 09/24/22 Unknown History sumatriptan succinate 50 mg tablet 0 mg PO 01/27/22 01/27/22 Unknown History mirtazapine 15 mg tablet 15 mg PO BEDTIME 09/24/22 09/24/22 Unknown History norethindrone (contraceptive) 0.35 0.35 mg PO DAILY 09/24/22 09/24/22 Unknown History mg tablet paroxetine HCl 10 mg tablet 10 mg PO DAILY 09/24/22 09/24/22 Unknown History paroxetine HCl 40 mg tablet 40 mg PO DAILY 09/24/22 09/24/22 Unknown History Exam Exam Date and Time: September 27, 2022 110 Pertinent Lab Results Pertinent Lab Results: Laboratory Tests 08/08/22 08/08/22 17:20 17:20 WBC 8.6 Hgb 13.5 Hct 40.4 Plt Count 238 Sodium 139 Potassium 3.3 Chloride 104 Carbon Dioxide 24 BUN 6 L Creatinine 0.71 Narrative Narrative: EKG 08/2022 Vent. Rate : 102 BPM ? ? Atrial Rate : 102 BPM ?? P-R Int : 140 ms? QRS Dur : 080 ms ? ? QT Int : 336 ms ? ? ? P-R-T Axes : 067 037 021 degrees ?? QTc Int : 437 ms ? Sinus tachycardia Otherwise normal ECG When compared with ECG of 22-DEC-2021 07:56, T wave inversion now evident in Inferior leads Assessment and Plan Assessment Anesthesia Assessment: Chart Reviewed Documented by User: Irene Kelley MD 09/28/22 14:02 [facility] Past Medical History Medical History Anxiety and depression Arthritis Asthma Chronic pain syndrome COVID-19 Depression Disc degeneration, lumbar Fibromyalgia Migraines Seasonal allergies Spondylosis of lumbar spine Family History Family History Sister History of breast cancer, Onset Age: 52 Brother History of bone cancer History of blood disorder History of brain cancer Paternal Aunt History of cancer of uterus Family history of problems with anesthesia: No Surgical History Surgical History H/O LEEP History of bilateral tubal ligation History of carpal tunnel release History of salpingo-oophorectomy Hx of colonoscopy History of Problems with Anesthesia: No Social History Social History Alcohol intake: never Patient Tobacco Use Status: Current everyday Tobacco user Cigarettes Per Day: 10 Use of substances other than those prescribed or required for medical reasons: No Are you DNR?: No Advance Directives: No Advance Directives Information Provided: Yes Recently lost weight without trying: No Sexual orientation: Straight/Heterosexual Gender identity: Female Meds Allergies Allergy/AdvReac Type Severity Reaction Status Date / Time dust Allergy Mild unknown Uncoded 09/02/22 11:25 Home Medications Medication Instructions Recorded Confirmed Last Taken Type loratadine 10 mg capsule 10 mg PO DAILY 02/20/20 09/24/22 Unknown History baclofen 20 mg tablet 20 mg PO TID 01/06/21 09/24/22 Unknown History diclofenac sodium 75 mg 75 mg PO BID 01/06/21 09/24/22 Unknown History tablet,delayed release fluticasone propionate 50 2 spray intranasal DAILY 01/06/21 09/24/22 Unknown History mcg/actuation nasal spray,suspension doxycycline hyclate 100 mg capsule 100 mg PO BID 02/09/21 09/24/22 Unknown History lactulose 10 gram/15 mL oral 10 g PO DAILY 02/09/21 09/24/22 Unknown History solution methocarbamol 750 mg tablet 750 mg PO BEDTIME 02/09/21 09/24/22 Unknown History hydroxyzine pamoate 25 mg capsule 50 mg PO 10/29/21 01/27/22 Unknown History bupropion HCl 300 mg 24 hr tablet, 300 mg PO QPM 01/07/22 09/24/22 Unknown History extended release hydrochlorothiazide 12.5 mg tablet 12.5 mg PO DAILY 01/07/22 09/24/22 Unknown History trazodone 150 mg tablet 150 mg PO DAILY 01/07/22 09/24/22 Unknown History famotidine 40 mg tablet 40 mg PO BEDTIME 01/27/22 09/24/22 Unknown History gabapentin 600 mg tablet 800 mg PO TID Pain 01/27/22 09/24/22 Unknown History ibuprofen 600 mg tablet 800 mg PO Q6H PRN pain 01/27/22 09/24/22 Unknown History lorazepam 1 mg tablet 1 mg PO DAILY Anxiety 01/27/22 09/24/22 Unknown History sumatriptan succinate 50 mg tablet 0 mg PO 01/27/22 01/27/22 Unknown History mirtazapine 15 mg tablet 15 mg PO BEDTIME 09/24/22 09/24/22 Unknown History norethindrone (contraceptive) 0.35 0.35 mg PO DAILY 09/24/22 09/24/22 Unknown History mg tablet paroxetine HCl 10 mg tablet 10 mg PO DAILY 09/24/22 09/24/22 Unknown History paroxetine HCl 40 mg tablet 40 mg PO DAILY 09/24/22 09/24/22 Unknown History Exam Airway Mallampati Class: II TM Dist: >3cm Neck ROM: Full Loose/Missing/Broken Teeth: No Heart: rr Lungs: cta Assessment and Plan Final Anesthetic Review Family History of Problems with Anesthesia: No History of Problems with Anesthesia: No NPO: Yes ASA Class: II Final Preanesthetic Review: No Changes in Pt Med Stat, Meds/Allgs Chart Reviewed, Consent Obtained/Reviewed and Anes Risks/Benef Reviewed Patient Risk: Low Procedure Risk: Low Anesthetic Plan Anesthetic Plan: GA Disposition: Standard PACU
[2022-09-28 10:46] VITALS: BMI 24.2
[2022-09-28 10:54] VITALS: BP 119/75; PULSE 76; RESP 18; TEMP 36.1; O2SAT 95
[2022-09-28] MEDS: Lactated Ringers 1,000 ML 100 ML IVCONT (11:31)
--- NOTE | 2022-09-28 13:20 | MHC.SHP ---
Pre-Procedural Eval Section A Date of Service: 09/28/22 The History & Physical has been completed within 30 days and I have reviewed it.: Yes Section B Chief Complaint: Other microscopic hematuria Allergies: Allergies Allergy/AdvReac Type Severity Reaction Status Date / Time dust Allergy Mild unknown Uncoded 09/02/22 11:25 Plan Diagnosis/Plan: Unchanged I have reviewed the history and physical and performed a pertinent physical examination on my patient. No changes have occurred unless specified. Cystoscopy Hydrodistension. Discussed risks to include but not limited to, blood in the urine, burning with urination, urgency. Time Spent With Patient Time: Total time managing care of this patient today ____ minutes.
[2022-09-28 14:23] VITALS: BP 111/62; PULSE 73; RESP 16; TEMP 36.5; O2SAT 97
[2022-09-28 14:28] VITALS: BP 112/67; PULSE 67; RESP 12; O2SAT 97
--- NOTE | 2022-09-28 14:28 | P.OP_ITS ---
Operative Note Operative Note Date of Service: 09/28/22 Narrative: PREOP DIAGNOSIS: pelvic pain, microscopic hematuria POSTOP DIAGNOSIS: pelvic pain, microscopic hematuria, Interstitial cystitis, PROCEDURE: CYSTOSCOPY HYDRODISTENTION Anethesia: General Surgeon: Dr. Jessica Beard Details of procedure: The patient was brought into the operating room placed on the OR table in supine position. 2 g of Ancef IV. General anesthesia was administered. The patient was repositioned into lithotomy position, prepped and draped in the usual sterile fashion. Time-out was done per protocol. A 22 fr cystoscope was placed transurethrally into the bladder. Urine was drained from the bladder measuring 75 mL.The right and left ureteral orifices were visualized. The entire bladder was visualized. There were no suspicious bladder lesions seen. There were mild trabeculations noted. The bladder was filled with sterile water at 80 cm of water pressure under gravity. The bladder was distended for 2 minutes. Bladder capacity measured 575 mL. Revisualization of the bladder, noted mild/moderate glomerulations. No Wilmer ulcerations. The bladder was refilled with sterile water again at 80 cm of water pressure under gravity. The bladder was distended for 3 minutes. The fluid was drained from the bladder and measured 700 mL. The cystoscope was removed. 2% lidocaine urojet was passed transurethrally, Solution of (1% l idocaine plain, 15 mL, 0.5 % Marcaine 15 mL mixed with 30, 000 units of heparin concentration 5000 units per mL total of 6 mL hepaine) instilled transurethrally with 16 fr red rubber catheter into the bladder. The patient was brought out of anesthesia and taken to recovery in stable condition. Complications: None Drains: none
[2022-09-28 14:33] VITALS: BP 123/70; PULSE 73; RESP 16; O2SAT 97
[2022-09-28 14:38] VITALS: BP 125/67; PULSE 73; RESP 16; O2SAT 97
[2022-09-28 14:53] VITALS: BP 119/69; PULSE 69; RESP 16; TEMP 36.3; O2SAT 96
== END 2022-09-28 15:13 | disposition home or self-care (01) ==
PROVIDERS: PCP Internal Medicine; Visit Provider Urology
PROC: 0T7B7ZZ Dilation of Bladder, Via Natural or Artificial Opening (ICD-10-PCS; CPT 52260; principal; 2022-09-28 11:20)
DX: N30.11 Interstitial cystitis (chronic) with hematuria (principal); R31.29 Other microscopic hematuria; R10.2 Pelvic and perineal pain; G89.4 Chronic pain syndrome; N83.292 Other ovarian cyst, left side; N32.89 Other specified disorders of bladder; M79.7 Fibromyalgia; F41.8 Other specified anxiety disorders; J45.909 Unspecified asthma, uncomplicated; Z79.51 Long term (current) use of inhaled steroids; Z79.1 Long term (current) use of non-steroidal anti-inflammatories (NSAID); Z79.899 Other long term (current) drug therapy; F17.210 Nicotine dependence, cigarettes, uncomplicated
CPT/HCPCS: 52260; J0690; J1643; J2250; J2795; J3010

== ENCOUNTER 2022-10-28 09:50 | Outpatient (AMB) | payer MEDICAID, SELFPAY ==
--- NOTE | 2022-10-28 06:49 | A.OFFVIS_ITS ---
Intake Intake Visit Reasons: 4 week follow up Intake Note: Patient presents today for a follow-up on Post Op, Patient stated urinating every half hour: Meds- Pyridium & Naproxen Allergies to Antibiotic- No Known Allergies Blood Thinner- None PVR- 0ml Slip Dumper Required: Yes Slip Dumper Language: Icicle Machine Operator Name: EMILIANO Quintana/CAYETANO Coulter Accompanied by: Mother Allergies dust Allergy (Mild, Uncoded 10/28/22 10:24) unknown HPI HPI Comments History of Present Illness Details Marlene is a 47-year-old female who presents to the office as a fu for microscopic hematuria. 09/02/22-- In review of the chart she has been seen in past for pain management for chronic back pain and had evaluation with OB-PROCUREMENT OFFICER for pelvic pain. She had imaging in the past and review of? OB-PROCUREMENT OFFICER note noted simple left adnexal cyst. She was in the ER last couple of months in June and July for abdominal pain and back pain. CAT scan was done on both the visits. There were no urinary tract stone visualized and kidneys WNL, bladder unremarkable. The patient states having history of microscopic hematuria, c/o's of urinary frequency, urinary incontinence and feeling of? incomplete bladder emptying. The patient takes Motrin occasionally for back pain Evaluation today:? Urinalysis--Blood: 2+, leukocytes: negative. CT Imaging reviewed with the patient Plan: Cystoscopy Hydrodistension discussed to be scheduled. Consent was obtained. Instructed not to take NSAIDS? 5 days prior to procedure 10/28/2022--Here for FU The patient is following up post-cystoscopy hydrodistention on 09/28/22. A certified network relay tester was present during the visit. She states that she has noticed significant improvement in her pain post- procedure. She states that her pain score is down from 10/10 to 6/10 in intensity. The patient still reports urinary urgency and frequently goes to the bathroom. 09/28/22 -- Cystoscopy hydrodistention finding results reviewed --- Bladder capacity post distention was 700 mL. Mild to moderate glomerulations noted post distention. Finding consistent with interstitial cystitis. Evaluation today UA: Blood: 1+ Lino/uL, leukocytes: Negative. Bladder scan PVR 0 mL. It is discussed that Interstitial cystitis (IC) is a chronic condition in which the lining of the bladder is inflamed and symptoms may include bladder pressure, burning with urination, urgency or pelvic pain. The exact cause for IC is not known, but likely factors that contribute would be factors that affect the protective lining of the bladder allowing urine to irritate the bladder wall. Contributing factors may include Recurrent UTI's, autoimmune reaction, heredity or allergy. Treatment includes lifestyle changes including diet modification. Plan: Bladder instillation with nurse was discussed to be scheduled. Myrbetriq 50 mg once daily was ordered. A pamphlet on interstitial cystitis diagnosis and symptoms was provided to the patient with dietary recommendations. The patient will follow up in three months. [facility] Medical History (Updated 11/09/22 @ 13:48 by Jessica Beard MD) Anxiety and depression Arthritis Asthma Chronic pain syndrome COVID-19 Cystitis Depression Disc degeneration, lumbar Fibromyalgia Migraines Seasonal allergies Spondylosis of lumbar spine Surgical History H/O LEEP History of bilateral tubal ligation History of carpal tunnel release History of salpingo-oophorectomy Hx of bladder endoscopy Hx of colonoscopy Family History Sister History of breast cancer, Onset Age: 52 Brother History of bone cancer History of blood disorder History of brain cancer Paternal Aunt History of cancer of uterus Social History Alcohol intake: never Patient Tobacco Use Status: Current everyday Tobacco user Cigarettes Per Day: 10 Sexual orientation: Straight/Heterosexual Gender identity: Female Review of Systems Const All systems reviewed & are unremarkable except as noted in HPI and below Reports no additional complaints Eyes Reports no additional complaints ENT Reports no additional complaints Card Denies dyspnea Resp Denies cough and Denies dyspnea GI Reports no additional complaints Reports no additional complaints Musc Reports no additional complaints Skin/Breast Denies rash and Denies unusual bruising Neuro Reports no additional complaints Psych Reports no additional complaints Endo Reports no additional complaints Min/Lymph Reports no additional complaints Aller/Immun Reports no additional complaints Physical Exam Const General: cooperative, healthy appearing and no acute distress Orientation/consciousness: patient oriented x3 HEENT Head: Yes normal to inspection, Yes normocephalic and Yes atraumatic Eyes Conjunctivae: conjunctivae normal Neck Neck: Yes normal visual inspection and Yes trachea midline Chest Chest palpation & inspection: normal inspection of the chest Resp Effort & Inspection: normal respiratory effort Cardio Rate: regular rate GI Inspection: Yes normal to inspection Skin General skin exam: no rashes or lesions noted Neuro General: patient oriented x3 Extrem General: No edema Psych Appearance: grossly normal Results AMB Urinalysis, Automated UA Leukoctes 0 Deisy/uL Last Edit by EMILIANO Quintana on 10/28/22 10:31 UA Nitrite Negative Last Edit by EMILIANO Quintana on 10/28/22 10:31 UA Urobilinogen 0.2 mg/dL Last Edit by EMILIANO Quintana on 10/28/22 10:3 1 UA Protein 0 mg/dL Last Edit by EMILIANO Quintana on 10/28/22 10:31 UA pH 6.5 Last Edit by EMILIANO Quintana on 10/28/22 10:31 UA Blood 25 Lino/uL Last Edit by EMILIANO Quintana on 10/28/22 10:31 1+ John Hernandez 10/28/22 10:31 UA Specific [place] 1.015 Last Edit by EMILIANO Quintana on 10/28/22 10: 31 UA Ketone Negative Last Edit by EMILIANO Quintana on 10/28/22 10:31 UA Bilirubin 0 mg/dL Last Edit by EMILIANO Quintana on 10/28/22 10:31 UA Glucose 0 mg/dL Last Edit by EMILIANO Quintana on 10/28/22 10:31 Results Reviewed Results Reviewed: Laboratory Last Values Urine pH (Auto) 6.5 10/28/22 10:30 Specific [place] (Auto) 1.015 10/28/22 10:30 Urine Protein (Auto) 0 mg/dL 10/28/22 10:30 Glucose (UA)(Auto) 0 mg/dL 10/28/22 10:30 Urine Ketones (Auto) Negative 10/28/22 10:30 Urine Blood (Auto) 25 Lino/uL 10/28/22 10:30 Urine Nitrite (Auto) Negative 10/28/22 10:30 Urine Bilirubin (Auto) 0 mg/dL 10/28/22 10:30 Urine Urobilinogen (Auto) 0.2 mg/dL 10/28/22 10:30 Leukocyte Esterase (Auto) 0 Deisy/uL 10/28/22 10:30 Assessment & Plan Assessment & Plan (1) Interstitial cystitis: Code(s): N30.10 - Interstitial cystitis (chronic) without hematuria (2) Female pelvic pain: Code(s): R10.2 - Pelvic and perineal pain (3) Bladder pain: Code(s): R39.89 - Other symptoms and signs involving the genitourinary system (4) Urinary frequency: Code(s): R35.0 - Frequency of micturition Plan Bladder instillation with nurse was discussed to be scheduled. Myrbetriq 50 mg once daily was ordered. A pamphlet on interstitial cystitis diagnosis and symptoms was provided to the patient with dietary recommendations. The patient will follow up in three months. Orders: Orders AMB Urinalysis Automated 10/28/22 Z13.9 - Encounter for screening, unspecified AMB Post Void Residual by ultrasound 10/28/22 N39.8 - Other specified disorders of urinary system Medications: New mirabegron ER (Myrbetriq) 50 mg PO DAILY 90 tabs 0RF Patient Instructions: The patient had an opportunity to ask questions regarding treatment plan. All questions were answered. Imaging, Laboratory studies and physical exam results were discussed and reviewed in detail. No major barriers to understanding were identified. The patient expressed understanding and agreement with the above treatment plan.? ? ? The patient is aware they should contact our office by phone for worsening of their current condition or the appearance of new symptoms. Compliance is encouraged with any medications and followup testing that is ordered.? ? ? It is a privilege to be allowed the opportunity to participate in the urologic care of your patient. If you have any questions or concerns regarding treatment for the above conditions please do not hesitate to contact me. The office telephone contact is [phone].? ? ? This note is constructed in part using voice recognition software. While every effort has been made to ensure accuracy card processing clerk errors may have been included.? ? ? Yours sincerely,? ? ? Jessica Beard MD? ? Coding Level of Care Code Est Pt Level 4 (39084) Diagnoses Interstitial cystitis N30.10 Female pelvic pain R10.2 Bladder pain R39.89 Urinary frequency R35.0
== END 2022-10-28 10:50 | disposition home or self-care (01) ==
PROVIDERS: PCP Internal Medicine; Visit Provider Urology
DX: N30.10 Interstitial cystitis (chronic) without hematuria (principal); R10.2 Pelvic and perineal pain; R39.89 Other symptoms and signs involving the genitourinary system; R35.0 Frequency of micturition
CPT/HCPCS: 99214

== ENCOUNTER → 2022-10-28 09:50 | Outpatient (BNVA) | payer MEDICAID, SELFPAY | PROVIDERS: PCP Internal Medicine; Visit Provider Urology | DX: N30.10 Interstitial cystitis (chronic) without hematuria (principal); R10.2 Pelvic and perineal pain; R39.89 Other symptoms and signs involving the genitourinary system; R35.0 Frequency of micturition | CPT/HCPCS: 99212 ==

== ENCOUNTER 2022-11-02 10:10 | Outpatient (AMB) | payer MEDICAID, SELFPAY ==
--- NOTE | 2022-11-02 10:22 | AM.OFFVISNUR ---
Intake Intake Visit Reasons: IC instillation #1 Allergies dust Allergy (Mild, Uncoded 10/28/22 10:24) unknown Office Procedures Bladder/Catheter Procedure Details: pt presents to office for daily IC instillation #1- per Dr Canchola pt prepped with 10 mls lidocaine urojet, 12 fr straight cath used to empty bladder and instill: 10 mls lidocaine 2% 10 mls bupivicaine 10,000 units (2 mls) heparin 1 ml solumedrol (40 mg) [id number] of Bladder [id number]-Berdtd Bladder Catheter Procedure code (CPT) selection complete Coding Diagnoses CPT Codes Bladder/Catheter Procedure - CPT: 84662-Wyrukveqra of Bladder ([id number]) Bladder/Catheter Procedure - CPT: 96085-Egitsj Bladder Catheter ([id number]) Assessment & Plan Assessment & Plan Orders: Orders AMB Bladder/Catheter Procedure Today N30.90 - Cystitis, unspecified without hematuria
== END 2022-11-02 11:22 | disposition home or self-care (01) ==
PROVIDERS: PCP Internal Medicine; Visit Provider Urology
DX: N30.10 Interstitial cystitis (chronic) without hematuria (principal)
CPT/HCPCS: 51700

== ENCOUNTER → 2022-11-02 10:10 | Outpatient (BNVA) | payer MEDICAID, SELFPAY | PROVIDERS: PCP Internal Medicine; Visit Provider Urology | DX: N30.90 Cystitis, unspecified without hematuria (principal) | CPT/HCPCS: 51700; J1643; J2920 ==

== ENCOUNTER 2022-11-03 11:30 | Outpatient (AMB) | payer MEDICAID, SELFPAY ==
--- NOTE | 2022-11-03 11:32 | AM.OFFVISNUR ---
Intake Intake Visit Reasons: IC instillation #2 Allergies dust Allergy (Mild, Uncoded 10/28/22 10:24) unknown Office Procedures Bladder/Catheter Procedure Details: pt presents to office for daily IC instillation #2, pt states I'm already feeling better - per Dr Canchola pt prepped with 10 mls lidocaine urojet, 12 fr straight cath used to empty bladder and instill: 10 mls lidocaine 2% 10 mls bupivicaine 10,000 units (2 mls) heparin 1 ml solumedrol (40 mg) 13817-Ngwsjoggvd of Bladder 03138-Qmjxvd Bladder Catheter Procedure code (CPT) selection complete Coding Diagnoses CPT Codes Bladder/Catheter Procedure - CPT: 98633-Ztjvbjlnxw of Bladder ([id number]) Bladder/Catheter Procedure - CPT: 90047-Tzkfmc Bladder Catheter ([id number]) Assessment & Plan Assessment & Plan Orders: Orders AMB Bladder/Catheter Procedure Today N30.90 - Cystitis, unspecified without hematuria
== END 2022-11-03 11:48 | disposition home or self-care (01) ==
LOC: HO.HUSH 11:30
PROVIDERS: PCP Internal Medicine; Visit Provider Urology
DX: N30.10 Interstitial cystitis (chronic) without hematuria (principal)
CPT/HCPCS: 51700

== ENCOUNTER → 2022-11-03 11:30 | Outpatient (BNVA) | payer MEDICAID, SELFPAY | PROVIDERS: PCP Internal Medicine; Visit Provider Urology | DX: N30.90 Cystitis, unspecified without hematuria (principal) | CPT/HCPCS: 51700; J2920 ==

== ENCOUNTER → 2022-11-04 10:16 | Outpatient (BNVA) | payer MEDICAID, SELFPAY | PROVIDERS: PCP Internal Medicine; Visit Provider Urology | DX: N30.90 Cystitis, unspecified without hematuria (principal) | CPT/HCPCS: 51700; 51701; J1643; J2920 ==

== ENCOUNTER → 2022-11-05 10:20 | Outpatient (BNVA) | payer MEDICAID, SELFPAY | PROVIDERS: PCP Internal Medicine; Visit Provider Urology | DX: N30.90 Cystitis, unspecified without hematuria (principal) | CPT/HCPCS: 51700; 51701 ==

== ENCOUNTER → 2022-11-10 10:20 | Outpatient (BNVA) | payer MEDICAID, SELFPAY | PROVIDERS: PCP Internal Medicine; Visit Provider Urology | DX: N30.10 Interstitial cystitis (chronic) without hematuria (principal) | CPT/HCPCS: 51700; J2920 ==

== ENCOUNTER 2022-11-10 13:09 | Emergency (ER) | payer MEDICAID, SELFPAY ==
[2022-11-10 13:39] VITALS: BP 129/88; PULSE 73; RESP 16; TEMP 36.6; O2SAT 96; BMI 25.4
--- NOTE | 2022-11-10 13:39 | ED.GENADULT ---
HPI - General Adult General Chief complaint: General Medical Stated complaint: Urinary issues Related Data Home Medications Medication Instructions Recorded Confirmed loratadine 10 mg capsule 10 mg PO DAILY 02/20/20 09/24/22 baclofen 20 mg tablet 20 mg PO TID 01/06/21 09/24/22 diclofenac sodium 75 mg 75 mg PO BID 01/06/21 09/24/22 tablet,delayed release fluticasone propionate 50 2 spray intranasal DAILY 01/06/21 09/24/22 mcg/actuation nasal spray,suspension doxycycline hyclate 100 mg capsule 100 mg PO BID 02/09/21 09/24/22 lactulose 10 gram/15 mL oral 10 g PO DAILY 02/09/21 09/24/22 solution methocarbamol 750 mg tablet 750 mg PO BEDTIME 02/09/21 09/24/22 hydroxyzine pamoate 25 mg capsule 50 mg PO 10/29/21 01/27/22 bupropion HCl 300 mg 24 hr tablet, 300 mg PO QPM 01/07/22 09/24/22 extended release hydrochlorothiazide 12.5 mg tablet 12.5 mg PO DAILY 01/07/22 09/24/22 trazodone 150 mg tablet 150 mg PO DAILY 01/07/22 09/24/22 famotidine 40 mg tablet 40 mg PO BEDTIME 01/27/22 09/24/22 gabapentin 600 mg tablet 800 mg PO TID Pain 01/27/22 09/24/22 ibuprofen 600 mg tablet 800 mg PO Q6H PRN pain 01/27/22 09/24/22 lorazepam 1 mg tablet 1 mg PO DAILY Anxiety 01/27/22 09/24/22 sumatriptan succinate 50 mg tablet 0 mg PO 01/27/22 01/27/22 mirtazapine 15 mg tablet 15 mg PO BEDTIME 09/24/22 09/24/22 norethindrone (contraceptive) 0.35 0.35 mg PO DAILY 09/24/22 09/24/22 mg tablet paroxetine HCl 10 mg tablet 10 mg PO DAILY 09/24/22 09/24/22 paroxetine HCl 40 mg tablet 40 mg PO DAILY 09/24/22 09/24/22 Previous Rx's Medication Instructions Recorded cyclobenzaprine 10 mg tablet 10 mg PO TID #10 tabs 10/26/20 albuterol sulfate 90 mcg/actuation 2 puff inhalation Q6H PRN 11/14/20 aerosol inhaler shortness of breath or wheezing #8.5 grams lidocaine 5 % topical patch 1 patch topical DAILY PRN pain #30 12/08/20 (Lidoderm) ea tramadol 50 mg tablet 50 mg PO Q8H PRN pain #14 tabs 03/24/21 benzonatate 100 mg capsule 100 mg PO BID PRN cough #14 caps 07/21/21 dextromethorphan-guaifenesin 5 10 ml PO Q4-8H PRN cough #118 mL 07/21/21 mg-100 mg/5 mL oral liquid (Robitussin Cough-Chest Congestion DM) naproxen 500 mg tablet (Naprosyn) 500 mg PO BID #20 tabs 12/22/21 metronidazole 0.75 % (37.5 mg/5 1 appful vaginal BEDTIME 5 days 06/18/22 gram) vaginal gel #70 grams naproxen 500 mg tablet 500 mg PO BID PRN pain 7 days #14 07/25/22 tabs phenazopyridine 200 mg tablet 200 mg PO TID urinary burning, 09/28/22 (Pyridium) pain #20 tabs mirabegron 50 mg tablet,extended 50 mg PO DAILY #90 tabs 10/28/22 release 24 hr (Myrbetriq) terconazole 0.8 % vaginal cream 1 appful vaginal BEDTIME 3 days 11/10/22 #20 grams Allergies Allergy/AdvReac Type Severity Reaction Status Date / Time dust Allergy Mild unknown Uncoded 11/10/22 13:42 [facility] Past Medical History Medical History (Updated 11/13/22 @ 17:33 by KATH Phillips) Anxiety and depression Arthritis Asthma Chronic pain syndrome COVID-19 Cystitis Depression Disc degeneration, lumbar Fibromyalgia Migraines Seasonal allergies Spondylosis of lumbar spine Surgical History H/O LEEP History of bilateral tubal ligation History of carpal tunnel release History of salpingo-oophorectomy Hx of bladder endoscopy Hx of colonoscopy Family History Family History Sister History of breast cancer, Onset Age: 52 Brother History of bone cancer History of blood disorder History of brain cancer Paternal Aunt History of cancer of uterus Social History Social History Alcohol intake: never Patient Tobacco Use Status: Current everyday Tobacco user Cigarettes Per Day: 10 Sexual orientation: Straight/Heterosexual Gender identity: Female Physical Exam ED Vital Signs: BMI result Body Mass Index 25.4 Course Course Course Narrative: RME - 47 yo female presents to the ER for evaluation of 3 days of headache, dizziness, nausea & night sweats. Seen recently at Urology and found to have some glucose in her urine, no infection. Thinks she has BV and was just sent in Rx by [facility]CH[employer] here. Reevaluation(s) Reevaluation #1: patient eloped prior to full evaluation and treatment Medical Decision Making Lab Data 11/10/22 14:12 11/10/22 14:12 Labs: Lab Results 11/10/22 11/10/22 11/10/22 Range/Units 14:12 14:12 14:12 WBC 8.3 (4.8-10.8) X10*3/uL RBC 4.29 (4.20-5.50) X10*6/uL Hgb 13.3 (12.0-16.0) g/dl Hct 40.1 (37.0-47.0) % MCV 93.5 (80.0-98.0) fL MCH 31.0 (27.0-33.0) pg MCHC 33.2 (31.0-35.0) g/dl RDW 12.9 (11.0-16.0) % Plt Count 258 (160-400) X10*3/uL MPV 9.2 L (9.4-12.3) fL Immature Gran % (Auto) 0.4 (0.0-0.4) % Neut % (Auto) 51.4 (45-73) % Lymph % (Auto) 41.2 H (20-40) % [place] % (Auto) 5.8 (2-11) % Eos % (Auto) 0.8 (0-4) % Baso % (Auto) 0.4 (0-2) % Lymph # (Auto) 3.4 (1.2-4.9) X10*3/uL [place] # (Auto) 0.5 (0.1-1.2) X10*3/uL Eos # (Auto) 0.1 (0.0-0.4) X10*3/uL Baso # (Auto) 0.0 (0.0-0.2) X10*3/uL Abs Immat Gran (auto) 0.03 (0.00-0.03) X10*3/uL Absolute Neuts (auto) 4.3 (2.0-8.3) x10*3/uL Absolute Nucleated RBC 0.000 (0.0-0.012) X10*3/uL Nucleated RBC % (auto) 0.0 (0.0-0.2) /100WBC Sodium 141 (135-145) mmol/L Potassium 4.0 D (3.3-5.1) mmol/L Chloride 103 (96-108) mmol/L Carbon Dioxide 29 (22-29) mmol/L Anion Gap 13 (12-20) BUN 9 (9-16) mg/dL Creatinine 0.75 (0.5-1.4) mg/dL Estim Creat Clear Calc 85.4 Estimated GFR > 60 Random Glucose 86 (60-115) mg/dL Calcium 9.7 (8.4-10.2) mg/dL Magnesium 2.2 (1.6-2.6) mg/dL Total Bilirubin 0.3 (0.0-1.0) mg/dL Direct Bilirubin 0.1 (0.0-0.5) mg/dL AST 15 (5-31) U/L ALT 14 (0-31) U/L Alkaline Phosphatase 48 (39-117) U/L Total Protein 7.3 (6.5-8.0) g/dL Albumin 4.0 (3.5-5.0) g/dL COVID-19 (VALENTIN) Negative (Negative) COVID-19 Clin Com See Note Discharge Plan Discharge Clinical Impression: Headache Patient Disposition: Elopement Prescriptions: No Action metronidazole 0.75 % (37.5mg/5 gram) gel 1 appful vaginal BEDTIME 5 Days Qty: 70 0RF terconazole 0.8 % cream 1 appful vaginal BEDTIME 3 Days Qty: 20 0RF cyclobenzaprine 10 mg tablet 10 mg PO TID Qty: 10 0RF albuterol sulfate 90 mcg/actuation HFA aerosol inhaler 2 puff inhalation Q6H PRN (Reason: shortness of breath or wheezing) Qty: 8.5 0RF lidocaine [Lidoderm] 5 % adhesive patch,medicated 1 patch topical DAILY MDD remove after 12 hours PRN (Reason: pain) Qty: 30 0RF Rx Instructions: leave on most painful area for up to 12 hrs naproxen [Naprosyn] 500 mg tablet 500 mg PO BID Qty: 20 0RF tramadol 50 mg tablet 50 mg PO Q8H PRN (Reason: pain) Qty: 14 0RF Robitussin Cough-Chest Jarod DM 5-100 mg/5 mL liquid 10 ml PO Q4-8H PRN (Reason: cough) Qty: 118 0RF benzonatate 100 mg capsule 100 mg PO BID PRN (Reason: cough) Qty: 14 0RF naproxen 500 mg tablet 500 mg PO BID PRN (Reason: pain) 7 Days Qty: 14 0RF paroxetine HCl 10 mg tablet 10 mg PO DAILY mirtazapine 15 mg tablet 15 mg PO BEDTIME paroxetine HCl 40 mg Tablet 40 mg PO DAILY Rx Instructions: to equal 50 mg daily norethindrone (contraceptive) 0.35 mg Tablet 0.35 mg PO DAILY phenazopyridine [Pyridium] 200 mg tablet 200 mg PO TID Qty: 20 1RF Rx Instructions: take with food as may cause stomach upset diclofenac sodium 75 mg tablet,delayed release (DR/EC) 75 mg PO BID baclofen 20 mg tablet 20 mg PO TID fluticasone propionate 50 mcg/actuation spray,suspension 2 spray intranasal DAILY gabapentin 600 mg tablet 800 mg PO TID lorazepam 1 mg tablet 1 mg PO DAILY loratadine 10 mg capsule 10 mg PO DAILY ibuprofen 600 mg tablet 800 mg PO Q6H PRN (Reason: pain) sumatriptan succinate 50 mg tablet 0 mg PO famotidine 40 mg tablet 40 mg PO BEDTIME lactulose 10 gram/15 mL solution 10 g PO DAILY doxycycline hyclate 100 mg capsule 100 mg PO BID methocarbamol 750 mg tablet 750 mg PO BEDTIME hydroxyzine pamoate 25 mg capsule 50 mg PO hydrochlorothiazide 12.5 mg tablet 12.5 mg PO DAILY bupropion HCl 300 mg tablet extended release 24 hr 300 mg PO QPM trazodone 150 mg tablet 150 mg PO DAILY Myrbetriq 50 mg tablet extended release 24 hr 50 mg PO DAILY Qty: 90 0RF Discharge Date/Time: 11/10/22 17:18
== END 2022-11-10 17:18 | disposition left against medical advice (07) ==
PROVIDERS: Emergency Provider Emergency Medicine; PCP Internal Medicine
DX: R51.9 Headache, unspecified (principal); N30.10 Interstitial cystitis (chronic) without hematuria; R39.198 Other difficulties with micturition; R11.2 Nausea with vomiting, unspecified; R61 Generalized hyperhidrosis; Z20.822 Contact with and (suspected) exposure to COVID-19; Z20.828 Contact with and (suspected) exposure to other viral communicable diseases; Z79.899 Other long term (current) drug therapy; F17.210 Nicotine dependence, cigarettes, uncomplicated; Z71.6 Tobacco abuse counseling
CPT/HCPCS: 51700; 51701; 80048; 80076; 83735; 85025; 87086; 87635; 99281; 99283; 99284

== ENCOUNTER 2022-11-10 18:03 | Outpatient (REF) | payer MEDICAID, SELFPAY ==
[2022-11-10 14:16] LABS: MANUAL DIFF FLAG NO
[2022-11-10 14:17] LABS: Basophils Percent Auto 0.4 % (0-2); Eosinophils Absolute Auto 0.1 X10*3/uL (0.0-0.4); Eosinophils Percent Auto 0.8 % (0-4); Hematocrit 40.1 % (37.0-47.0); Hemoglobin 13.3 g/dl (12.0-16.0); Imm Gran Abs Auto 0.03 X10*3/uL (0.00-0.03); Imm Gran Pct Auto 0.4 % (0.0-0.4); Lymphocytes Absolute Auto 3.4 X10*3/uL (1.2-4.9); Lymphocytes Percent Auto 41.2 % (20-40); Mean Corpuscular HGB Conc 33.2 g/dl (31.0-35.0); Mean Corpuscular Volume 93.5 fL (80.0-98.0); Mean Platelet Volume 9.2 fL (9.4-12.3); Monocytes Absolute Auto 0.5 X10*3/uL (0.1-1.2); Monocytes Percent Auto 5.8 % (2-11); Neutrophils Absolute Auto 4.3 x10*3/uL (2.0-8.3); Neutrophils Percent Auto 51.4 % (45-73); Platelet Count 258 X10*3/uL (160-400); Red Blood Count 4.29 X10*6/uL (4.20-5.50); Red Cell Distribution Width 12.9 % (11.0-16.0); White Blood Count 8.3 X10*3/uL (4.8-10.8)
[2022-11-10 14:31] LABS: Alanine Aminotransferase 14 U/L (0-31); Alkaline Phosphatase 48 U/L (39-117); Anion Gap 13 (12-20); Aspartate Amino Transferase 15 U/L (5-31); Bilirubin Direct 0.1 mg/dL (0.0-0.5); Bilirubin Total 0.3 mg/dL (0.0-1.0); Blood Urea Nitrogen 9 mg/dL (9-16); Calcium 9.7 mg/dL (8.4-10.2); Carbon Dioxide 29 mmol/L (22-29); Chloride 103 mmol/L (96-108); Creatinine Clr Calc Pharmacy 85.4; Estimated Glomerular Filt Rate > 60; Glucose Random 86 mg/dL (60-115); Magnesium 2.2 mg/dL (1.6-2.6); Sodium 141 mmol/L (135-145); Total Protein 7.3 g/dL (6.5-8.0)
[2022-11-10 14:32] LABS: COVID-19 Test Negative (Negative); IDNOW Serial# BCCEAD1C
== END 2022-11-10 18:04 ==
LOC: HO.HHCLNP 18:03
PROVIDERS: Physician Assistant; Visit Provider Emergency Medicine
DX: N30.10 Interstitial cystitis (chronic) without hematuria (principal); Z20.822 Contact with and (suspected) exposure to COVID-19
CPT/HCPCS: 51700; 80048; 80076; 83735; 85025; 87086; 87635

== ENCOUNTER 2022-11-11 11:35 | Outpatient (REF) | payer MEDICAID, SELFPAY ==
[2022-11-12 11:44] LABS: BV Int Neg Control Negative (Negative); BV Int Pos Control Positive (Positive)
== END 2022-11-11 11:36 | disposition home or self-care (01) ==
LOC: HO.HHCLNP 11:35
PROVIDERS: Visit Provider Emergency Medicine
DX: N89.8 Other specified noninflammatory disorders of vagina (principal)
CPT/HCPCS: 87480; 87510; 87660

== ENCOUNTER 2022-11-11 13:29 | Outpatient (REF) | payer MEDICAID, SELFPAY ==
--- NOTE | ~2022-11-11 | XR_ITS ---
EXAMINATION: XR CHEST CLINICAL INFORMATION: Acute cough x2 weeks. Smoker. COMPARISON: None available. TECHNIQUE: 2 views of the chest were obtained. FINDINGS: No significant abnormality is noted involving the heart, lungs, mediastinum, bony thorax or soft tissues. XR/XR chest 2V IMPRESSION: Unremarkable chest examination.
== END 2022-11-11 13:30 | disposition home or self-care (01) ==
LOC: HO.HHCX 13:29
PROVIDERS: Visit Provider Emergency Medicine
DX: R05.1 Acute cough (principal)
CPT/HCPCS: 71046

== ENCOUNTER 2022-11-17 10:10 | Outpatient (AMB) | payer MEDICAID, SELFPAY ==
--- NOTE | 2022-11-17 10:24 | AM.OFFVISNUR ---
Intake Intake Visit Reasons: IC instillation week #2 Allergies dust Allergy (Mild, Uncoded 11/10/22 13:42) unknown Office Procedures Bladder/Catheter Procedure Details: pt presents to office for weekly IC instillation #2. pt reports feels well, instillations still working, not waking at night as much and feels much better than she did last week- went to [facility] mort[facility] operator and was prescribed abx for BV. per Dr Canchola pt prepped with 10 mls lidocaine urojet, 12 fr straight cath used to empty bladder and instill: 10 mls lidocaine 2% 10 mls bupivicaine 30,000 units (6 mls) heparin 1 ml solumedrol (40 mg) 26047-Hrgpocqqcg of Bladder 15877-Okpwts Bladder Catheter Procedure code (CPT) selection complete Coding Diagnoses CPT Codes Bladder/Catheter Procedure - CPT: 33756-Dhuxjmpgxf of Bladder ([id number]) Bladder/Catheter Procedure - CPT: 41954-Nftwvn Bladder Catheter ([id number]) Assessment & Plan Assessment & Plan Orders: Orders AMB Bladder/Catheter Procedure Today N30.10 - Interstitial cystitis (chronic) without hematuria
== END 2022-11-17 11:01 | disposition home or self-care (01) ==
PROVIDERS: PCP Internal Medicine; Visit Provider Urology
DX: N30.10 Interstitial cystitis (chronic) without hematuria (principal)

== ENCOUNTER → 2022-11-17 10:10 | Outpatient (BNVA) | payer MEDICAID, SELFPAY | PROVIDERS: PCP Internal Medicine; Visit Provider Urology | DX: N30.10 Interstitial cystitis (chronic) without hematuria (principal) | CPT/HCPCS: 51700; J1643; J2920 ==

== ENCOUNTER 2022-11-24 10:01 | Outpatient (AMB) | payer MEDICAID, SELFPAY ==
--- NOTE | 2022-11-24 10:15 | AM.OFFVISNUR ---
Intake Intake Visit Reasons: IC instillation week #3 Allergies dust Allergy (Mild, Uncoded 11/10/22 13:42) unknown Office Procedures Bladder/Catheter Procedure Details: pt presents to office for weekly IC instillation #3. pt continues to report improvement in symptoms. 12 fr straight cath used to empty bladder and instill: 10 mls lidocaine 2% 10 mls bupivicaine 10 mls lidocaine urojet 10,000 units (2 mls) heparin 1 ml solumedrol (40 mg) 57763-Wethxmtolh of Bladder 93393-Issxce Bladder Catheter Procedure code (CPT) selection complete Coding Diagnoses CPT Codes Bladder/Catheter Procedure - CPT: 24502-Tjvhkjutbz of Bladder ([id number]) Bladder/Catheter Procedure - CPT: 17616-Odpxnq Bladder Catheter ([id number]) Assessment & Plan Assessment & Plan Orders: Orders AMB Bladder/Catheter Procedure Today N30.10 - Interstitial cystitis (chronic) without hematuria
== END 2022-11-24 11:42 | disposition home or self-care (01) ==
PROVIDERS: PCP Internal Medicine; Visit Provider Urology
DX: N30.10 Interstitial cystitis (chronic) without hematuria (principal)

== ENCOUNTER → 2022-11-24 10:01 | Outpatient (BNVA) | payer MEDICAID, SELFPAY | PROVIDERS: PCP Internal Medicine; Visit Provider Urology | DX: N30.10 Interstitial cystitis (chronic) without hematuria (principal) | CPT/HCPCS: 51700; J1643; J2920 ==

== ENCOUNTER 2022-11-25 16:09 | Outpatient (REF) | payer MEDICAID, SELFPAY ==
[2022-11-25 17:12] LABS: Amphetamine Screen Urine Not Detected (Not Detect); Barbiturates, Urine Not Detected (Not Detect); Benzodiazepines Screen Urine Not Detected (Not Detect); Cannabinoid Screen Urine Not Detected (Not Detect); Cocaine Screen Urine Not Detected (Not Detect); Fentanyl, urine Not Detected (Not Detect); Opiate Screen Urine Not Detected (Not Detect); Phencyclidine Screen Urine Not Detected (Not Detect)
== END 2022-11-25 16:10 | disposition home or self-care (01) ==
LOC: HO.HHCLNP 16:09
PROVIDERS: Visit Provider Internal Medicine
DX: F41.9 Anxiety disorder, unspecified (principal)
CPT/HCPCS: 80307

== ENCOUNTER 2022-12-01 10:21 | Outpatient (AMB) | payer MEDICAID, SELFPAY ==
--- NOTE | 2022-12-01 10:44 | AM.OFFVISNUR ---
Intake Intake Visit Reasons: IC instillation week #4 Allergies dust Allergy (Mild, Uncoded 11/10/22 13:42) unknown Office Procedures Bladder/Catheter Procedure Details: pt presents to office for weekly IC instillation #4. pt continues to report improvement in symptoms, but states for past two days has had lower abd pain and she cannto distinguish between BV or UTI symptoms- UA done, negative results, pt states will follow up with [facility]ACT[facility] MANAGER. 12 fr straight cath used to empty bladder and instill: 10 mls lidocaine 2% 10 mls bupivicaine 10 mls lidocaine urojet 10,000 units (2 mls) heparin 1 ml solumedrol (40 mg) 65423-Pktlryezzj of Bladder 27549-Nmsmfk Bladder Catheter Procedure code (CPT) selection complete Results AMB Urinalysis, Automated UA Leukoctes 0 Deisy/uL Last Edit by Marquita Martinez RN on 12/01/22 10:50 UA Nitrite Negative Last Edit by Marquita Martinez RN on 12/01/22 10:50 UA Urobilinogen 0 mg/dL Last Edit by Marquita Martinez RN on 12/01/22 10:50 UA Protein 0 mg/dL Last Edit by Marquita Martinez RN on 12/01/22 10:50 UA pH 6.5 Last Edit by Marquita Martinez RN on 12/01/22 10:50 UA Blood 10 Lino/uL Last Edit by Marquita Martinez RN on 12/01/22 10:50 UA Specific Morven 1.015 Last Edit by Marquita Martinez RN on 12/01/22 10:50 UA Ketone Negative Last Edit by Marquita Martinez RN on 12/01/22 10:50 UA Bilirubin 0 mg/dL Last Edit by Marquita Martinez RN on 12/01/22 10:50 UA Glucose 0 mg/dL Last Edit by Marquita Martinez RN on 12/01/22 10:50 Coding Diagnoses CPT Codes Bladder/Catheter Procedure - CPT: 69795-Wauvopfjjc of Bladder ([id number]) Bladder/Catheter Procedure - CPT: 02795-Juzfkc Bladder Catheter ([id number]) Assessment & Plan Assessment & Plan Orders: Orders AMB Bladder/Catheter Procedure Today N30.10 - Interstitial cystitis (chronic) without hematuria AMB Urinalysis Automated Today N30.10 - Interstitial cystitis (chronic) without hematuria
== END 2022-12-01 11:10 | disposition home or self-care (01) ==
PROVIDERS: PCP Internal Medicine; Visit Provider Urology
DX: N30.10 Interstitial cystitis (chronic) without hematuria (principal)

== ENCOUNTER → 2022-12-01 10:21 | Outpatient (BNVA) | payer MEDICAID, SELFPAY | PROVIDERS: PCP Internal Medicine; Visit Provider Urology | DX: N30.10 Interstitial cystitis (chronic) without hematuria (principal) | CPT/HCPCS: 51700; 51702; 81003; J1643; J2920 ==

== ENCOUNTER 2022-12-03 13:31 | Outpatient (REF) | payer MEDICAID, SELFPAY ==
[2022-12-03 16:50] LABS: Amphetamine Screen Urine Not Detected (Not Detect); Barbiturates, Urine Not Detected (Not Detect); Benzodiazepines Screen Urine Not Detected (Not Detect); Cannabinoid Screen Urine Not Detected (Not Detect); Cocaine Screen Urine Not Detected (Not Detect); Fentanyl, urine Not Detected (Not Detect); Opiate Screen Urine Not Detected (Not Detect); Phencyclidine Screen Urine Not Detected (Not Detect)
== END 2022-12-03 13:32 | disposition home or self-care (01) ==
LOC: HO.HHCL 13:31
PROVIDERS: Visit Provider Internal Medicine
DX: F41.9 Anxiety disorder, unspecified (principal)
CPT/HCPCS: 80307

== ENCOUNTER → 2022-12-10 13:57 | Outpatient (BNVA) | payer MEDICAID, SELFPAY | PROVIDERS: PCP Internal Medicine; Visit Provider Urology | DX: N30.10 Interstitial cystitis (chronic) without hematuria (principal) | CPT/HCPCS: 51700; 51701; J1643; J2920 ==

== ENCOUNTER 2022-12-11 10:59 | Emergency (ER) | payer MEDICAID, SELFPAY | END 2022-12-11 11:56 | disposition left against medical advice (07) | PROVIDERS: Emergency Provider Emergency Medicine; PCP Internal Medicine | DX: K08.89 Other specified disorders of teeth and supporting structures (principal) ==

== ENCOUNTER 2022-12-12 08:34 | Emergency (ER) | payer MEDICAID, SELFPAY ==
[2022-12-12 08:40] VITALS: BP 114/73; PULSE 77; RESP 18; TEMP 36.6; O2SAT 98; BMI 25.4
[2022-12-12 08:59] VITALS: BP 136/75; PULSE 71; RESP 18; TEMP 36.2; O2SAT 97
--- NOTE | 2022-12-12 09:08 | PC.NURSE ---
reports dental pain left upper mouth r/t removal / of molar. rsting calm/coop. no resp distress.
--- NOTE | 2022-12-12 10:01 | ED.DENTAL ---
HPI - Dental/Oral General Chief complaint: Dental/Oral Stated complaint: Dental pain Time Seen by Provider: 12/12/22 09:09 Source: patient Mode of arrival: ambulatory Limitations: no limitations History of Present Illness HPI Narrative: 47-year-old female here with complaints of left lower dental pain for the last week. Patient reports 1 week ago she had several teeth removed with a dentist. She called him on Tuesday to tell him that she was still having pain any start her on amoxicillin. She took 1 dose Tuesday evening, 2 doses yesterday and 1 dose today. She is taking a Tylenol and Motrin intermittently as well as tramadol with continued pain. No fevers, chills, difficulty breathing, difficulty swallowing. Related Data Home Medications Medication Instructions Recorded Confirmed loratadine 10 mg capsule 10 mg PO DAILY 02/20/20 09/24/22 baclofen 20 mg tablet 20 mg PO TID 01/06/21 09/24/22 diclofenac sodium 75 mg 75 mg PO BID 01/06/21 09/24/22 tablet,delayed release fluticasone propionate 50 2 spray intranasal DAILY 01/06/21 09/24/22 mcg/actuation nasal spray,suspension doxycycline hyclate 100 mg capsule 100 mg PO BID 02/09/21 09/24/22 lactulose 10 gram/15 mL oral 10 g PO DAILY 02/09/21 09/24/22 solution methocarbamol 750 mg tablet 750 mg PO BEDTIME 02/09/21 09/24/22 hydroxyzine pamoate 25 mg capsule 50 mg PO 10/29/21 01/27/22 bupropion HCl 300 mg 24 hr tablet, 300 mg PO QPM 01/07/22 09/24/22 extended release hydrochlorothiazide 12.5 mg tablet 12.5 mg PO DAILY 01/07/22 09/24/22 trazodone 150 mg tablet 150 mg PO DAILY 01/07/22 09/24/22 famotidine 40 mg tablet 40 mg PO BEDTIME 01/27/22 09/24/22 gabapentin 600 mg tablet 800 mg PO TID Pain 01/27/22 09/24/22 ibuprofen 600 mg tablet 800 mg PO Q6H PRN pain 01/27/22 09/24/22 lorazepam 1 mg tablet 1 mg PO DAILY Anxiety 01/27/22 09/24/22 sumatriptan succinate 50 mg tablet 0 mg PO 01/27/22 01/27/22 mirtazapine 15 mg tablet 15 mg PO BEDTIME 09/24/22 09/24/22 norethindrone (contraceptive) 0.35 0.35 mg PO DAILY 09/24/22 09/24/22 mg tablet paroxetine HCl 10 mg tablet 10 mg PO DAILY 09/24/22 09/24/22 paroxetine HCl 40 mg tablet 40 mg PO DAILY 09/24/22 09/24/22 Previous Rx's Medication Instructions Recorded cyclobenzaprine 10 mg tablet 10 mg PO TID #10 tabs 10/26/20 albuterol sulfate 90 mcg/actuation 2 puff inhalation Q6H PRN 11/14/20 aerosol inhaler shortness of breath or wheezing #8.5 grams lidocaine 5 % topical patch 1 patch topical DAILY PRN pain #30 12/08/20 (Lidoderm) ea tramadol 50 mg tablet 50 mg PO Q8H PRN pain #14 tabs 03/24/21 benzonatate 100 mg capsule 100 mg PO BID PRN cough #14 caps 07/21/21 dextromethorphan-guaifenesin 5 10 ml PO Q4-8H PRN cough #118 mL 07/21/21 mg-100 mg/5 mL oral liquid (Robitussin Cough-Chest Congestion DM) naproxen 500 mg tablet (Naprosyn) 500 mg PO BID #20 tabs 12/22/21 metronidazole 0.75 % (37.5 mg/5 1 appful vaginal BEDTIME 5 days 06/18/22 gram) vaginal gel #70 grams naproxen 500 mg tablet 500 mg PO BID PRN pain 7 days #14 07/25/22 tabs phenazopyridine 200 mg tablet 200 mg PO TID urinary burning, 09/28/22 (Pyridium) pain #20 tabs mirabegron 50 mg tablet,extended 50 mg PO DAILY #90 tabs 10/28/22 release 24 hr (Myrbetriq) terconazole 0.8 % vaginal cream 1 appful vaginal BEDTIME 3 days 11/10/22 #20 grams Allergies Allergy/AdvReac Type Severity Reaction Status Date / Time dust Allergy Mild unknown Uncoded 11/10/22 13:42 Review of Systems Review of Systems: Yes all other systems are reviewed and are negative Constitutional: Constitutional: Reports no additional constitutional complaints, Denies body ache(s), Denies chills, Denies fever(s), Denies headache(s) and Denies weakness Eyes: Eyes: Reports no additional eye complaints and Denies change in vision ENT: Reports system reviewed and no additional complaints, except as documented, Reports dental pain, Denies dizziness, Denies headache(s), Denies nasal congestion, Denies nasal discharge and Denies neck pain Cardiovascular: Cardiovascular: Reports no additional cardiovascular complaints, Denies chest pain, Denies leg edema and Denies dyspnea Respiratory: Respiratory: Reports no additional respiratory complaints, Denies cough and Denies dyspnea Gastrointestinal: Gastrointestinal: Reports no additional gastrointestinal complaints, Denies abdominal pain, Denies diarrhea, Denies nausea and Denies vomiting Genitourinary: Genitourinary: Reports no additional female genitourinary complaints and Denies urinary incontinence Musculoskeletal: Musculoskeletal: Reports no additional musculoskeletal complaints, Denies back pain, Denies arthralgias, Denies joint swelling, Denies neck pain, Denies numbness and Denies tingling Integumentary/Breasts: Skin/Breast: Reports system reviewed and no additional complaints, except as docu and Denies rash Neurologic: Reports system reviewed and no additional complaints, except as documented, Denies Abnormal speech present, Denies dizziness, Denies headache(s), Denies numbness, Denies tingling and Denies weakness PMFSH Past Medical History Attestation statement: The following information was validated with the patient. Source: old records reviewed and nursing notes reviewed Medical History Cystitis Seasonal allergies Anxiety and depression Chronic pain syndrome Spondylosis of lumbar spine Disc degeneration, lumbar COVID-19 Depression Fibromyalgia Arthritis Migraines Asthma Surgical History Hx of bladder endoscopy Hx of colonoscopy History of salpingo-oophorectomy History of bilateral tubal ligation H/O LEEP History of carpal tunnel release Family History Family History Sister History of breast cancer, Onset Age: 52 Brother History of bone cancer History of blood disorder History of brain cancer Paternal Aunt History of cancer of uterus Social History Social History Alcohol intake: never Patient Tobacco Use Status: Current everyday Tobacco user Cigarettes Per Day: 10 Smoked in Last 30 Days: Yes Use of substances other than those prescribed or required for medical reasons: No Advance Directives: No Sexual orientation: Straight/Heterosexual Gender identity: Female Physical Exam Vital Signs: Vital Signs: Last Vital Signs Temp 97.1 F 12/12/22 08:59 Pulse 71 12/12/22 08:59 Resp 18 12/12/22 08:59 BP 136/75 12/12/22 08:59 Pulse Ox 97 12/12/22 08:59 O2 Del Method Room Air 12/12/22 08:59 BMI result Body Mass Index 25.4 Const: General: cooperative, healthy appearing, comfortable and no acute distress Orientation/consciousness: patient oriented x3 Limitations: no limitations HEENT: Head: Yes normal to inspection Ears: hearing grossly normal bilaterally General nose exam: Normal external nose present Face and sinus: Yes normal facial exam Mouth: Normal oral and palatal mucosa present Teeth image: 1. +absent teeth, no fluctuance/abscess/swelling noted. No abscess or trismus on exam Throat: Yes posterior oropharynx normal Eyes: General: appearance normal, both eyes and all related structures Pupils: Equal, round and reactive pupils present Neck: Neck: Yes normal visual inspection, Yes full ROM and Yes no lymphadenopathy Chest: Chest palpation & inspection: normal inspection of the chest Resp: Effort & Inspection: normal respiratory effort Auscultation: clear to auscultation bilaterally Cardio: Rate: regular rate Rhythm: regular rhythm Peripheral pulses: Peripheral pulses 2+ throughout GI: Inspection: Yes normal to inspection Palpation (GI): Soft to palpation and nontender Auscultation: normal bowel sounds Back/Spine/Pelvis: Thoracic/Lumbar Spine: thoracic and lumbar spine normal to inspection Skin: General skin exam: no rashes or lesions noted Neuro: General: patient oriented x3, no focal motor deficits and normal sensation to monofilament Cranial nerves: Yes Equal, round and reactive pupils present Cognition (Neuro): normal cognition Speech: No Abnormal speech present Gait exam (Neuro): Normal gait present Motor exam (neuro): 5/5 motor strength present throughout Extrem: General: Yes normal to inspection Medications Administered Discontinued Medications Generic Name Dose Route Start Last Admin Trade Name Freq PRN Reason Stop Dose Admin Ketorolac Tromethamine 60 mg 12/12/22 10:01 12/12/22 10:12 Ketorolac Tromethamine 60 Mg/2 Ml Vial IM 12/12/22 10:02 60 mg ONCE ONE Administration Medical Decision Making Medical Decision Making [facility] Narrative: 47 year-old female here with complaints of left lower dental pain for the last week. Patient reports 1 week ago she had several teeth removed with a dentist. She called him on Tuesday to tell him that she was still having pain any start her on amoxicillin. She took 1 dose Tuesday evening, 2 doses yesterday and 1 dose today. She is taking a Tylenol and Motrin intermittently as well as tramadol with continued pain. No fevers, chills, difficulty breathing, difficulty swallowing. On exam patient has the left lower dental area absent teeth with no evidence of cellulitis, dental abscess. There is no trismus on exam. Patient is tolerating secretions with no difficulty. No lymphadenopathy. Patient will be given Toradol IM for her pain. I do not see any reason to change her antibiotic as there is no signs of infection on exam. Patient can continue supportive care with Motrin and Tylenol or her home tramadol as needed. She should follow-up with her dentist tomorrow in the office. Reviewed worrisome signs and symptoms of when to return to the emergency room. Comfortable plan for discharge home. Differential Diagnosis Differential Diagnoses: The differential diagnosis associated with the presentation includes No evidence of Bry's angina, dental abscess, cellulitis Admission/Observation Consideration of admission/observation: Escalation of care including admission/observation considered No evidence of Bry's angina, cellulitis necessitating CT facial bones and or IV antibiotics and admission Tests considered The following testing was considered but not selected: No evidence of Bry's angina, cellulitis necessitating CT facial bones Prescription Management I considered prescription management with: Pain Medication and Antibiotic patient is currently on amoxicillin. There is no evidence of infection and I do not think that a change in antibiotics is warranted. Patient has tramadol at home which she can take for pain in addition to Motrin Tylenol I do not feel that she needs additional pain medication. Discharge Plan Discharge Clinical Impression: Toothache Patient Disposition: Home, Self-Care Instructions: Toothache (ED) Additional Instructions: continue your antibiotic continue to alternate Motrin and Tylenol and take your pain medicine at home saltwater gargles soft food call your dentist tomorrow to follow-up Prescriptions: No Action metronidazole 0.75 % (37.5mg/5 gram) gel 1 appful vaginal BEDTIME 5 Days Qty: 70 0RF terconazole 0.8 % cream 1 appful vaginal BEDTIME 3 Days Qty: 20 0RF cyclobenzaprine 10 mg tablet 10 mg PO TID Qty: 10 0RF albuterol sulfate 90 mcg/actuation HFA aerosol inhaler 2 puff inhalation Q6H PRN (Reason: shortness of breath or wheezing) Qty: 8.5 0RF lidocaine [Lidoderm] 5 % adhesive patch,medicated 1 patch topical DAILY MDD remove after 12 hours PRN (Reason: pain) Qty: 30 0RF Rx Instructions: leave on most painful area for up to 12 hrs naproxen [Naprosyn] 500 mg tablet 500 mg PO BID Qty: 20 0RF tramadol 50 mg tablet 50 mg PO Q8H PRN (Reason: pain) Qty: 14 0RF Robitussin Cough-Chest Jarod DM 5-100 mg/5 mL liquid 10 ml PO Q4-8H PRN (Reason: cough) Qty: 118 0RF benzonatate 100 mg capsule 100 mg PO BID PRN (Reason: cough) Qty: 14 0RF naproxen 500 mg tablet 500 mg PO BID PRN (Reason: pain) 7 Days Qty: 14 0RF paroxetine HCl 10 mg tablet 10 mg PO DAILY mirtazapine 15 mg tablet 15 mg PO BEDTIME paroxetine HCl 40 mg Tablet 40 mg PO DAILY Rx Instructions: to equal 50 mg daily norethindrone (contraceptive) 0.35 mg Tablet 0.35 mg PO DAILY phenazopyridine [Pyridium] 200 mg tablet 200 mg PO TID Qty: 20 1RF Rx Instructions: take with food as may cause stomach upset diclofenac sodium 75 mg tablet,delayed release (DR/EC) 75 mg PO BID baclofen 20 mg tablet 20 mg PO TID fluticasone propionate 50 mcg/actuation spray,suspension 2 spray intranasal DAILY gabapentin 600 mg tablet 800 mg PO TID lorazepam 1 mg tablet 1 mg PO DAILY loratadine 10 mg capsule 10 mg PO DAILY ibuprofen 600 mg tablet 800 mg PO Q6H PRN (Reason: pain) sumatriptan succinate 50 mg tablet 0 mg PO famotidine 40 mg tablet 40 mg PO BEDTIME lactulose 10 gram/15 mL solution 10 g PO DAILY doxycycline hyclate 100 mg capsule 100 mg PO BID methocarbamol 750 mg tablet 750 mg PO BEDTIME hydroxyzine pamoate 25 mg capsule 50 mg PO hydrochlorothiazide 12.5 mg tablet 12.5 mg PO DAILY bupropion HCl 300 mg tablet extended release 24 hr 300 mg PO QPM trazodone 150 mg tablet 150 mg PO DAILY Myrbetriq 50 mg tablet extended release 24 hr 50 mg PO DAILY Qty: 90 0RF Interventions: ED Discharge Assessment Last Done: 12/12/22 10:20 Discharge Date/Time: 12/12/22 10:20
[2022-12-12] MEDS: Ketorolac Tromethamine 60 MG/2 ML VIAL IM (10:12)
== END 2022-12-12 10:20 | disposition home or self-care (01) ==
PROVIDERS: Emergency Provider Emergency Medicine; PCP Internal Medicine
DX: K08.89 Other specified disorders of teeth and supporting structures (principal); F17.210 Nicotine dependence, cigarettes, uncomplicated; Z71.6 Tobacco abuse counseling; Z79.899 Other long term (current) drug therapy
CPT/HCPCS: 96372; 99284; J1885

== ENCOUNTER 2022-12-14 10:00 | Outpatient (REF) | payer MEDICAID, SELFPAY ==
[2022-12-14 11:55] LABS: TSH reflex Free T4 2.38 uIU/mL (0.32-4.0)
== END 2022-12-14 10:01 | disposition home or self-care (01) ==
LOC: HO.HHCL 10:00
PROVIDERS: Visit Provider Internal Medicine
DX: R63.5 Abnormal weight gain (principal)
CPT/HCPCS: 36415; 84443

== ENCOUNTER → 2022-12-15 10:27 | Outpatient (BNVA) | payer MEDICAID, SELFPAY | PROVIDERS: PCP Internal Medicine; Visit Provider Urology | DX: N30.10 Interstitial cystitis (chronic) without hematuria (principal) | CPT/HCPCS: 51700; 51701; J1643; J2920 ==

== ENCOUNTER 2022-12-22 12:33 | Outpatient (AMB) | payer MEDICAID, SELFPAY ==
--- NOTE | 2022-12-22 12:47 | AM.OFFVISNUR ---
Intake Intake Visit Reasons: IC instillation week #7 Allergies dust Allergy (Mild, Uncoded 11/10/22 13:42) unknown Office Procedures Bladder/Catheter Procedure Details: pt presents to office for weekly IC instillation #7. pt requesting in office UA, states got no sleep last night as was waking constantly to urinate. UA results negative for infection. pt would like to proceed with instillation. 14 fr straight cath used to empty bladder and instill: 10 mls lidocaine 2% 10 mls bupivicaine 10 mls lidocaine urojet 10,000 units (2 mls) heparin 1 ml solumedrol (40 mg) 75039-Bfttlbtsob of Bladder 18751-Lheybn Bladder Catheter Procedure code (CPT) selection complete Results AMB Urinalysis, Automated UA Leukoctes 0 Deisy/uL Last Edit by Marquita Martinez RN on 12/22/22 12:53 UA Nitrite Negative Last Edit by Marquita Martinez RN on 12/22/22 12:53 UA Urobilinogen 0 mg/dL Last Edit by Marquita Martinez RN on 12/22/22 12:53 UA Protein 30 mg/dL Last Edit by Marquita Martinez RN on 12/22/22 12:53 UA pH 6.0 Last Edit by Marquita Martinez RN on 12/22/22 12:53 UA Blood 25 Lino/uL Last Edit by Marquita Martinez RN on 12/22/22 12:53 UA Specific [place] 1.030 Last Edit by Marquita Martinez RN on 12/22/22 12:53 UA Ketone Positive Last Edit by Marquita Martinez RN on 12/22/22 12:53 UA Bilirubin 1 mg/dL Last Edit by Marquita Martinez RN on 12/22/22 12:53 UA Glucose 0 mg/dL Last Edit by Marquita Martinez RN on 12/22/22 12:53 Coding CPT Codes Bladder/Catheter Procedure - CPT: 51072-Qtuxcrphef of Bladder ([id number]) Bladder/Catheter Procedure - CPT: 69790-Mqnkja Bladder Catheter ([id number]) Assessment & Plan Assessment & Plan Orders: Orders AMB Bladder/Catheter Procedure Today N30.10 - Interstitial cystitis (chronic) without hematuria AMB Urinalysis Automated Today N30.10 - Interstitial cystitis (chronic) without hematuria
== END 2022-12-22 13:43 | disposition home or self-care (01) ==
PROVIDERS: PCP Internal Medicine; Visit Provider Urology
DX: N30.10 Interstitial cystitis (chronic) without hematuria (principal)

== ENCOUNTER → 2022-12-22 12:33 | Outpatient (BNVA) | payer MEDICAID, SELFPAY | PROVIDERS: PCP Internal Medicine; Visit Provider Urology | DX: N30.10 Interstitial cystitis (chronic) without hematuria (principal) | CPT/HCPCS: 51700; 51701; 81003 ==

== ENCOUNTER → 2022-12-29 10:08 | Outpatient (BNVA) | payer MEDICAID, SELFPAY | PROVIDERS: PCP Internal Medicine; Visit Provider Urology | DX: N30.10 Interstitial cystitis (chronic) without hematuria (principal) | CPT/HCPCS: 51700; 51701 ==

== ENCOUNTER 2023-01-11 17:24 | Outpatient (REF) | payer MEDICAID, SELFPAY | END 2023-01-11 17:25 | disposition home or self-care (01) | LOC: HO.HHCLNP 17:24 | PROVIDERS: Visit Provider Internal Medicine | DX: R35.0 Frequency of micturition (principal) | CPT/HCPCS: 87086 ==

== ENCOUNTER 2023-01-14 08:53 | Outpatient (REF) | payer MEDICAID, SELFPAY ==
--- NOTE | ~2023-01-14 | XR_ITS ---
EXAMINATION: XR ANKLE, RIGHT CLINICAL INFORMATION: Pain in right ankle and joints of foot. Pain along the posterior distal lower leg COMPARISON: None available. TECHNIQUE: AP, lateral, and mortise views of the right ankle. FINDINGS: A few tiny faint calcific/ossific densities in the soft tissues along the dorsal superior aspect of the calcaneus. Alignment preserved. Joint spaces are maintained. XR/XR ankle RT min 3V IMPRESSION: A few tiny faint calcific/ossific densities in the soft tissues along the dorsal superior aspect of the calcaneus. Correlation with clinical exam recommended to determine further management. Recommend follow-up imaging in 10-14 days if fracture is suspected. Additional imaging with CT scan or MRI should be considered for better visualization as these modalities are much more sensitive for detection of fracture or other underlying pathology.
== END 2023-01-14 08:54 | disposition home or self-care (01) ==
LOC: HO.HOSX 08:53
PROVIDERS: PCP Internal Medicine; Visit Provider Orthopaedic Surgery
DX: R39.89 Other symptoms and signs involving the genitourinary system (principal); N30.10 Interstitial cystitis (chronic) without hematuria; S86.111A Strain of other muscle(s) and tendon(s) of posterior muscle group at lower leg level, right leg, initial encounter
CPT/HCPCS: 51798; 73610; 81003; 99212

== ENCOUNTER 2023-01-14 08:53 | Outpatient (AMB) | payer MEDICAID, SELFPAY ==
--- NOTE | 2023-01-14 09:39 | MHC.OFFVIS ---
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 Patient reports ongoing pain for a week. No hx of injury. Her pain is on the back of the ankle and it radiates up to her calf. 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 She states she has pain in the posterior aspect of her ankle which radiates to her calf. She has not had any recent injury. [facility] Medical History Cystitis Seasonal allergies Anxiety and depression Chronic pain syndrome Spondylosis of lumbar spine Disc degeneration, lumbar COVID-19 Depression Fibromyalgia Arthritis Migraines Asthma Surgical History Hx of bladder endoscopy Hx of colonoscopy History of salpingo-oophorectomy History of bilateral tubal ligation H/O LEEP History of carpal tunnel release Family History Sister History of breast cancer, Onset Age: 52 Brother History of bone cancer History of blood disorder History of brain cancer Paternal Aunt History of cancer of uterus Social History Alcohol intake: never Patient Tobacco Use Status: Current everyday Tobacco user Cigarettes Per Day: 10 Sexual orientation: Straight/Heterosexual Gender identity: Female Review of Systems Const All systems reviewed & are unremarkable except as noted in HPI and below Physical Exam Vital Signs: BMI result Body Mass Index 25.4 Const General: cooperative, healthy appearing, comfortable, no acute distress, well developed and alert Orientation/consciousness: patient oriented x3 HEENT Head: Yes normal to inspection, Yes normocephalic and Yes atraumatic Eyes General: appearance normal, both eyes and all related structures Resp Effort & Inspection: normal respiratory effort and able to speak in complete sentences Cardio Rate: regular rate Peripheral pulses: Peripheral pulses 2+ throughout GI Palpation (GI): Soft to palpation Skin Lesions: no lesions Rashes: no rashes Neuro General: patient oriented x3 Extrem Other: Right ankle: Normal to inspection. Tenderness over the distal end of the Achilles tendon which extends to the muscle belly of the gastroc. She has full ROM of the ankle however she has some discomfort with plantar flexion with and without resistance. Negative Estevez?s. No deformity along the Achilles or gastroc. Results AMB Urinalysis, Automated UA Leukoctes 0 Deisy/uL Last Edit by EMILIANO Quintana on 01/14/23 14:02 UA Nitrite Negative Last Edit by John Hernandez [facility] on 01/14/23 14:02 UA Urobilinogen 0.2 mg/dL Last Edit by John Hernandez [facility] on 01/14/23 14:02 UA Protein 0 mg/dL Last Edit by John Hernandez [facility] on 01/14/23 14:02 UA pH 6.0 Last Edit by John Hernandez [facility] on 01/14/23 14:02 UA Blood 80 Lino/uL Last Edit by John Hernandez [facility] on 01/14/23 14:02 2+ John Hernandez 01/14/23 14:02 UA Specific [place] 1.025 Last Edit by John Hernandez Nichole on 01/14/23 14:02 UA Ketone Negative Last Edit by John Hernandez [facility] on 01/14/23 14:02 UA Bilirubin 0 mg/dL Last Edit by John Hernandez [facility] on 01/14/23 14:02 UA Glucose 0 mg/dL Last Edit by John Hernandez [facility] on 01/14/23 14:02 Results Reviewed Results Reviewed: X-rays of the right ankle obtained in the office today show negative for any acute fracture or dislocation. Assessment & Plan Assessment & Plan (1) Strain of gastrocnemius tendon of right lower extremity: Code(s): S86.111A - Strain of other muscle(s) and tendon(s) of posterior muscle group at lower leg level, right leg, initial encounter Plan She was given a tall boot to weight bearing as tolerated for the next 2 weeks. At that time I feel that she should transition to a regular street shoe as tolerated. I do recommend a course of physical therapy to work on ROM, heel quad stretching and strengthening. She will see me back if symptoms persist or worsen. Orders: Orders XR ankle RT min 3V 01/14/23 M25.571 - Pain in right ankle and joints of right foot PT Evaluation and Treatment 01/14/23 S86.111A - Strain of other muscle(s) and tendon(s) of posterior muscle group at lower leg level, right leg, initial encounter Patient Instructions: Scribed for Symone Mathur PA-C, by Javier Rodriugez medical aides teacher, on 01/14/2023 at 9:15 AM EST. I, Symone Mathur PA-C, have personally reviewed and agree with the information entered by the scribe. Coding Level of Care Code New Pt Level 2 (58982) Diagnoses Strain of gastrocnemius tendon of right lower extremity S86.111A
[2023-01-14 09:42] VITALS: BMI 25.4
== END 2023-01-14 11:05 | disposition home or self-care (01) ==
PROVIDERS: PCP Internal Medicine; Visit Provider Physician Assistant
DX: S86.111A Strain of other muscle(s) and tendon(s) of posterior muscle group at lower leg level, right leg, initial encounter (principal)
CPT/HCPCS: 99202

== ENCOUNTER 2023-01-14 13:12 | Outpatient (AMB) | payer MEDICAID, SELFPAY ==
--- NOTE | 2023-01-14 13:42 | MHC.OFFVIS ---
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 LV -- 10/28/2022?Follow-up visit. The patient is following up post-cystoscopy hydrodistention on 09/28/22. A certified hand hardener was present during the visit. She states that she has noticed significant improvement in her pain post-procedure. She states that her pain score is down from 10/10 to 6/10 in intensity. The patient still reports urinary urgency and frequently goes to the bathroom. 09/28/22 -- Cystoscopy hydrodistention finding results reviewed --- Bladder capacity post distention was 700 mL. Mild to moderate glomerulations noted post distention. Finding consistent with interstitial cystitis. Evaluation today UA: Blood: 1+ Lino/uL, leukocytes: Negative. Bladder scan PVR 0 mL. It is discussed that Interstitial cystitis (IC) is a chronic condition in which the lining of the bladder is inflamed and symptoms may include bladder pressure, burning with urination, urgency or pelvic pain. The exact cause for IC is not known, but likely factors that contribute would be factors that affect the protective lining of the bladder allowing urine to irritate the bladder wall. Contributing factors may include Recurrent UTI's, autoimmune reaction, heredity or allergy. Treatment includes lifestyle changes including diet modification. 01/14/23: The patient is following up for painful bladder syndrome. The patient underwent cystoscopy hydrodistention on 09/28/22, which was notable for glomerulations, and the finding was consistent with interstitial cystitis. The patient reports worsening bladder pain. She has completed the bladder instillation with the nursing staff. She states that the initial three treatments were beneficial, but after that, she felt that the medication did not help the bladder pain. She is not taking Myrbetriq 50 mg for the about 3 weeks, she did not get a refill. She is taking hydroxyzine 50 mg, which is prescribed by another provider. I also discussed with the patient that Elmiron is an FDA-approved medication for IC. There are possible side effects, which include elevation of liver enzymes, which usually return to normal with stopping the medication. There are also reports of retinal changes after long-term use (5?10 years). The patient understands and wants to use the Elmiron. Evaluation today-- Blood: 80 Lino/uL, leukocytes: 0 Deisy/uL. Urine protein: 0 mg/dL. Bladder scan PVR: 43 ml. Plan The patient will resume Myrbetriq 50 mg as directed. She will also take Pyridium P.R.N. as directed. I will start her on Elmiron 100 mg, 2 tablets, in the morning and 1 at night. I also discussed that Elmiron can take up to three months to provide effective improvement in bladder pain symptoms. The patient will follow up in eight weeks. [facility] Medical History Cystitis Seasonal allergies Anxiety and depression Chronic pain syndrome Spondylosis of lumbar spine Disc degeneration, lumbar COVID-19 Depression Fibromyalgia Arthritis Migraines Asthma Surgical History Hx of bladder endoscopy Hx of colonoscopy History of salpingo-oophorectomy History of bilateral tubal ligation H/O LEEP History of carpal tunnel release Family History Sister History of breast cancer, Onset Age: 52 Brother History of bone cancer History of blood disorder History of brain cancer Paternal Aunt History of cancer of uterus Social History Alcohol intake: never Patient Tobacco Use Status: Current everyday Tobacco user Cigarettes Per Day: 10 Sexual orientation: Straight/Heterosexual Gender identity: Female Review of Systems Const All systems reviewed & are unremarkable except as noted in HPI and below Reports no additional complaints Eyes Reports no additional complaints ENT Reports no additional complaints Card Reports no additional complaints Resp Reports no additional complaints GI Reports no additional complaints Musc Reports no additional complaints Skin/Breast Reports system reviewed and no additional complaints, except as documented Neuro Reports no additional complaints Psych Reports no additional complaints Endo Reports no additional complaints Min/Lymph Reports no additional complaints Aller/Immun Reports no additional complaints Physical Exam Const General: healthy appearing, no acute distress and well developed Orientation/consciousness: patient oriented x3 HEENT Head: Yes normocephalic and Yes atraumatic Eyes Conjunctivae: conjunctivae normal Neck Neck: Yes normal visual inspection Chest Chest palpation & inspection: normal inspection of the chest Resp Effort & Inspection: normal respiratory effort Cardio Rate: regular rate GI Inspection: Yes normal to inspection Skin General skin exam: no rashes or lesions noted Neuro General: patient oriented x3 Extrem General: Yes no pedal edema Psych Appearance: grossly normal Affect: normal affect Office Procedures Post Void Residual Post Residual Void Post Void Residual (PVR): [id number] Void Residual by ultrasound Results AMB Urinalysis, Automated UA Leukoctes 0 Deisy/uL Last Edit by EMILIANO Quintana on 01/14/23 14:02 UA Nitrite Negative Last Edit by John Hernandez [facility] on 01/14/23 14:02 UA Urobilinogen 0.2 mg/dL Last Edit by John Hernandez [facility] on 01/14/23 14:02 UA Protein 0 mg/dL Last Edit by John Hernandez [facility] on 01/14/23 14:02 UA pH 6.0 Last Edit by John Hernandez [facility] on 01/14/23 14:02 UA Blood 80 Lino/uL Last Edit by John Hernandez [facility] on 01/14/23 14:02 2+ John Hernandez 01/14/23 14:02 UA Specific [place] 1.025 Last Edit by John Hernandez [facility] on 01/14/23 14:02 UA Ketone Negative Last Edit by John Hernandez Nichole on 01/14/23 14:02 UA Bilirubin 0 mg/dL Last Edit by John Hernandez [facility] on 01/14/23 14:02 UA Glucose 0 mg/dL Last Edit by John Hernandez [facility] on 01/14/23 14:02 Results Reviewed Results Reviewed: Laboratory Last Values Urine pH (Auto) 6.0 01/14/23 13:44 Specific [place] (Auto) 1.025 01/14/23 13:44 Urine Protein (Auto) 0 mg/dL 01/14/23 13:44 Glucose (UA)(Auto) 0 mg/dL 01/14/23 13:44 Urine Ketones (Auto) Negative 01/14/23 13:44 Urine Blood (Auto) 80 Lino/uL 01/14/23 13:44 Urine Nitrite (Auto) Negative 01/14/23 13:44 Urine Bilirubin (Auto) 0 mg/dL 01/14/23 13:44 Urine Urobilinogen (Auto) 0.2 mg/dL 01/14/23 13:44 Leukocyte Esterase (Auto) 0 Deisy/uL 01/14/23 13:44 Assessment & Plan Assessment & Plan (1) Bladder pain: Code(s): R39.89 - Other symptoms and signs involving the genitourinary system (2) Interstitial cystitis: Code(s): N30.10 - Interstitial cystitis (chronic) without hematuria Plan The patient will resume Myrbetriq 50 mg as directed. She will also take Pyridium P.R.N. as directed. I will start her on Elmiron 100 mg, 2 tablets, in the morning and 1 at night. I also discussed that Elmiron can take up to three months to provide effective improvement in bladder pain symptoms. The patient will follow up in eight weeks. Orders: Orders AMB Urinalysis Automated 01/14/23 Z13.9 - Encounter for screening, unspecified AMB Post Void Residual by ultrasound 01/14/23 N39.8 - Other specified disorders of urinary system Medications: New pentosan polysulfate sodium (Elmiron) 100 mg orally take 2 tabs in the morning, and one tab at night; 90 caps 1RF Refilled mirabegron ER (Myrbetriq) 50 mg PO DAILY 90 tabs 3RF Patient Instructions: The patient had an opportunity to ask questions regarding treatment plan. All questions were answered. Imaging, Laboratory studies and physical exam results were discussed and reviewed in detail. No major barriers to understanding were identified. The patient expressed understanding and agreement with the above treatment plan. The patient is aware they should contact our office by phone for worsening of their current condition or the appearance of new symptoms. Compliance is encouraged with any medications and followup testing that is ordered. It is a privilege to be allowed the opportunity to participate in the urologic care of your patient. If you have any questions or concerns regarding treatment for the above conditions please do not hesitate to contact me. The office telephone contact is [phone]. This note is constructed in part using voice recognition software. While every effort has been made to ensure accuracy insole taper errors may have been included. Yours sincerely, Jessica Beard MD Coding Level of Care Code Est Pt Level 4 (35783) Diagnoses Bladder pain R39.89 Interstitial cystitis N30.10 CPT Codes Post Residual Void - PVR CPT Code: 10724-Zxrk Void Residual by ultrasound ([id number])
== END 2023-01-14 14:07 | disposition home or self-care (01) ==
PROVIDERS: PCP Internal Medicine; Visit Provider Urology
DX: R39.89 Other symptoms and signs involving the genitourinary system (principal); N30.10 Interstitial cystitis (chronic) without hematuria
CPT/HCPCS: 99214

== ENCOUNTER 2023-01-20 09:59 | Outpatient (REF) | payer MEDICAID, SELFPAY ==
[2023-01-22 02:09] LABS: Lyme Abs Screen <0.90 index
[2023-01-25 19:38] LABS: Estrogen 139 pg/mL
== END 2023-01-20 10:00 | disposition home or self-care (01) ==
LOC: HO.LAB 09:59
PROVIDERS: PCP Internal Medicine; Visit Provider Psychiatry & Neurology Neurology
DX: Z13.89 Encounter for screening for other disorder (principal)
CPT/HCPCS: 36415; 82672; 86617; 86618

== ENCOUNTER 2023-02-21 13:19 | Outpatient (AMB) | payer MEDICAID, SELFPAY ==
--- NOTE | 2023-02-21 13:24 | A.OFFVIS_ITS ---
Intake Vital Signs 02/21/23 13:29 Height 5 ft 4 in Weight 147 lb 11.355 oz BMI 25.4 BP 110/70 Intake Visit Reasons: AUB Dairy Specialist Required: Yes Dairy Specialist Language: Transfer And Pumphouse Operator Chief Name: Sirisha CUMMINGS Information Interpreted: non-clinical & clinical Editor Managing Director: Editor Managing Director Present (Sirisha CUMMIGNS) Accompanied by: Self / Same As Patient Allergies dust Allergy (Mild, Uncoded 02/21/23 13:30) unknown Post menopausal: Yes HPI HPI Comments History of Present Illness Details The patient is presenting c/o irregular uterine bleeding. Last co testing was 02 18 last mammogram was BI-RADS 1 in 02/23 [facility] Medical History Cystitis Seasonal allergies Anxiety and depression Chronic pain syndrome Spondylosis of lumbar spine Disc degeneration, lumbar COVID-19 Depression Fibromyalgia Arthritis Migraines Asthma Surgical History Hx of bladder endoscopy Hx of colonoscopy History of salpingo-oophorectomy History of bilateral tubal ligation H/O LEEP History of carpal tunnel release Family History Sister History of breast cancer, Onset Age: 52 Brother History of bone cancer History of blood disorder History of brain cancer Paternal Aunt History of cancer of uterus Social History Alcohol intake: never Patient Tobacco Use Status: Current everyday Tobacco user Cigarettes Per Day: 10 Sexual orientation: Straight/Heterosexual Gender identity: Female Review of Systems Const All systems reviewed & are unremarkable except as noted in HPI and below Card Reports as per HPI Resp Reports as per HPI GI Reports as per HPI and Reports no additional complaints Reports as per HPI Physical Exam Vital Signs: BMI result Body Mass Index 25.4 Const General: cooperative, healthy appearing and comfortable Chest Chest palpation & inspection: normal inspection of the chest and normal palpation of entire chest wall Breast/axilla inspection: normal inspection of the breasts and normal inspection of the axillae Breast/axilla palpation: normal palpation of the breasts, normal palpation of the axillae and no axillary lymphadenopathy Resp Effort & Inspection: normal respiratory effort Auscultation: clear to auscultation bilaterally Percussion: percussion normal Cardio Palpation: normal PMI Rate: regular rate Rhythm: regular rhythm Heart sounds: no murmurs and no rubs Peripheral pulses: Peripheral pulses 2+ throughout GI Inspection: Yes normal to inspection Palpation (GI): Soft to palpation, nontender, no guarding, not rigid and No hepatosplenomegaly present Percussion: Yes normal to percussion Auscultation: normal bowel sounds Rectal Exam - Female: deferred General: Yes bladder normal to palpation External Female Exam: No lesion Speculum Exam - Vagina: normal appearance of the vagina, normal palpation, normal vaginal discharge and not erythematous Speculum Exam - Cervix: normal appearance of the cervix and normal palpation Bimanual exam- vagina & uterus: normal bimanual exam, normal palpation, uterine size normal, bladder normal to palpation, consistency normal and normal palpation Bimanual Exam- Adnexa, other: normal adnexae, no masses and no tenderness Assessment & Plan Assessment & Plan (1) Abnormal uterine bleeding (AUB): Code(s): N93.9 - Abnormal uterine and vaginal bleeding, unspecified Plan: Urine test done in the office was negative. Co testing done, GC and chlamydia taken CBC, TSH, FSH/LH, HCG, and pelvic ultrasound ordered. Discussed with the patient the different causes of abnormal bleeding including thyroid disorders, uterine and ovarian pathology, endometrial hyperplasia, carcinoma and other potential causes. Discussed with the patient the work up including CBC (to r/o anemia), TSH, pelvic Ultrasound, endometrial biopsy to r/o endometrial pathology. All questions answered and the patient verbalized understanding. Instructed the patient to schedule an appointment for an endometrial biopsy in 2 weeks. Orders: Orders TSH reflex Free T4 Today N93.9 - Abnormal uterine and vaginal bleeding, unspecified Complete Blood Count no Diff Today N93.9 - Abnormal uterine and vaginal bleedi ng, unspecified Prolactin Today N93.9 - Abnormal uterine and vaginal bleeding, unspecified US pelvic and transvaginal Today N93.9 - Abnormal uterine and vaginal bleeding, unspecified MM screening mammo BI Today Z12.31 - Encounter for screening mammogram for malignant neoplasm of breast HCG Quantitative Today N93.9 - Abnormal uterine and vaginal bleeding, unspecified Lutenizing Hormone Today N93.9 - Abnormal uterine and vaginal bleeding, unspecified Follicle Stimulating Hormone Today N93.9 - Abnormal uterine and vaginal bleeding, unspecified Medications: Refilled phenazopyridine (Pyridium) take with food as may cause stomach upset 200 mg PO TID 20 tabs 1RF urinary burning, pain Coding Level of Care Code Est Pt Level 3 (41197) Diagnoses Abnormal uterine bleeding (AUB) N93.9
[2023-02-21 13:29] VITALS: BP 110/70; BMI 25.4
== END 2023-02-21 13:46 | disposition home or self-care (01) ==
PROVIDERS: PCP Internal Medicine; Visit Provider Obstetrics & Gynecology
DX: N93.9 Abnormal uterine and vaginal bleeding, unspecified (principal)
CPT/HCPCS: 99213

== ENCOUNTER 2023-02-21 13:19 | Outpatient (REF) | payer MEDICAID, SELFPAY ==
[2023-02-22 03:30] LABS: CT PCR NOT DETECTED (Not Detect.); NG PCR NOT DETECTED (Not Detect.)
[2023-02-25 08:53] LABS: HPV mRNA E6/E7 rflx Not Detected (Not Detected)
== END 2023-02-21 13:20 | disposition home or self-care (01) ==
LOC: HO.LNP 13:19
PROVIDERS: PCP Internal Medicine; Visit Provider Obstetrics & Gynecology
DX: N93.9 Abnormal uterine and vaginal bleeding, unspecified (principal)
CPT/HCPCS: 0353U; 87624; 88142; 99212

== ENCOUNTER 2023-02-28 05:04 | Emergency (ER) | payer MEDICAID, SELFPAY ==
--- NOTE | ~2023-02-28 | CT_ITS ---
EXAMINATION: CT ABDOMEN AND PELVIS WITHOUT CONTRAST CLINICAL INFORMATION: Right lower quadrant and flank pain COMPARISON: 07/24/2022 TECHNIQUE: Multidetector volumetric imaging was performed from the superior aspect of the liver through the pubic symphysis. Sagittal and coronal reformatted images were obtained on the technologist's workstation. This CT examination was performed using dose optimization techniques as appropriate, variously including the following: *Automated exposure control *Adjustment of mA and/or kV according to patient size (this includes techniques or standardized protocols for targeted exams where dose is matched to indication/reason for exam; i.e. extremities or head) *Use of iterative reconstruction technique DLP: 434 mGy-cm FINDINGS: LUNG BASES: The visualized lung bases are unremarkable. LIVER, GALLBLADDER, AND BILIARY TREE: The liver is normal in size, shape, and attenuation. No focal hepatic lesion or biliary ductal dilatation is identified on this noncontrast exam. The gallbladder is unremarkable with no evidence of radiopaque gallstones, gallbladder wall thickening, or obvious pericholecystic inflammatory changes. PANCREAS: Unremarkable. SPLEEN: Unremarkable. ADRENAL GLANDS: Unremarkable. KIDNEYS AND URETERS: No hydronephrosis or obstructing calculus bilaterally. BLADDER: Minimally distended and grossly unremarkable. GASTROINTESTINAL TRACT: No evidence of bowel obstruction or significant wall thickening. The appendix is unremarkable. No free fluid or free air is seen. ABDOMINAL WALL: No significant hernia is appreciated. LYMPH NODES: Normal. VASCULAR: Minimal scattered calcification. PELVIC VISCERA: Left adnexal cyst measuring approximately 2.7 cm. Findings are overwhelmingly likely to represent a normal ovarian follicle. No followup imaging recommended. OSSEOUS STRUCTURES: Redemonstrated transitional anatomy at the lumbosacral junction on the left. Mild endplate osteophytes in the spine. Disc space narrowing at L3-L4. CT/CT abdomen pelvis wo IV con IMPRESSION: No acute findings identified in the abdomen/pelvis.
[2023-02-28 05:10] VITALS: BP 127/82; PULSE 89; RESP 18; TEMP 36.4; O2SAT 97; BMI 25.4
[2023-02-28 05:24] LABS: Appearance Urine Turbid; Color Urine Yellow; Glucose Urine UA Negative (Negative); Leukocyte Esterase Urine Small (1+) (Negative); Nitrite Urine Negative (Negative); Specific Gravity - Urine 1.025 (1.005-1.025); UMIC TRIGGER UACC YES; Urine Blood Large (3+) (Negative); Urine Ketones Trace mg/dL (Negative); Urine Protein 30 (1+) mg/dL (Neg-Trace)
[2023-02-28 05:29] LABS: Bacteria Urine 4+ (None Seen); Hyaline Casts Urine 0-2 /LPF (0-2); RBC Urine >20 /HPF (0-2); Squamous Epithelial Cell Urine >20 /HPF (0-2); UACC Culture Trigger YES
[2023-02-28 05:32] LABS: Basophils Percent Auto 0.3 % (0-2); Eosinophils Absolute Auto 0.1 X10*3/uL (0.0-0.4); Eosinophils Percent Auto 1.7 % (0-4); Hematocrit 37.8 % (37.0-47.0); Hemoglobin 12.6 g/dl (12.0-16.0); Imm Gran Abs Auto 0.02 X10*3/uL (0.00-0.03); Imm Gran Pct Auto 0.3 % (0.0-0.4); Lymphocytes Absolute Auto 2.7 X10*3/uL (1.2-4.9); Lymphocytes Percent Auto 41.5 % (20-40); MANUAL DIFF FLAG NO; Mean Corpuscular HGB Conc 33.3 g/dl (31.0-35.0); Mean Corpuscular Hemoglobin 31.2 pg (27.0-33.0); Mean Corpuscular Volume 93.6 fL (80.0-98.0); Mean Platelet Volume 9.4 fL (9.4-12.3); Monocytes Absolute Auto 0.4 X10*3/uL (0.1-1.2); Monocytes Percent Auto 6.1 % (2-11); Neutrophils Absolute Auto 3.3 x10*3/uL (2.0-8.3); Neutrophils Percent Auto 50.1 % (45-73); Platelet Count 264 X10*3/uL (160-400); Red Blood Count 4.04 X10*6/uL (4.20-5.50); Red Cell Distribution Width 13.3 % (11.0-16.0); White Blood Count 6.5 X10*3/uL (4.8-10.8)
[2023-02-28 05:49] LABS: Alanine Aminotransferase 9 U/L (0-31); Alkaline Phosphatase 42 U/L (39-117); Anion Gap 13 (12-20); Aspartate Amino Transferase 16 U/L (5-31); Bilirubin Direct < 0.2 mg/dL (0.0-0.5); Bilirubin Total 0.2 mg/dL (0.0-1.0); Blood Urea Nitrogen 9 mg/dL (9-16); Calcium 9.1 mg/dL (8.4-10.2); Carbon Dioxide 25 mmol/L (22-29); Chloride 107 mmol/L (96-108); Creatinine Clr Calc Pharmacy 82.1; Estimated Glomerular Filt Rate > 60; Glucose Random 121 mg/dL (60-115); Lipase 29 U/L (8-78); Potassium 3.6 mmol/L (3.3-5.1); Sodium 141 mmol/L (135-145); Total Protein 7.3 g/dL (6.5-8.0)
--- NOTE | 2023-02-28 05:54 | ED.BACK ---
HPI - Back Pain/Injury General Chief Complaint: Back Pain/Injury Stated Complaint: back pain Time Seen by Provider: 02/28/23 05:53 Source: patient Mode of arrival: ambulatory Limitations: no limitations History of Present Illness HPI Narrative: 47-year-old female with history of cystitis, anxiety, depression, chronic pain syndrome, spondylosis of lumbar spine, degenerative lumbar disease, depression, fibromyalgia, migraines, asthma who presents emergency department for evaluation of right lower back and right flank pain. Patient states that 2 days prior she developed pain in her right back, the pain came on suddenly, the pain was intermittent and eventually resolved she states that last night at around 20:00 hours the pain came back. She states the pain was located in her right flank area and then radiated to her right lower abdomen. The pain was a sharp, constant pain which was 9/10. Patient had associated nausea and diaphoresis with no vomiting. She denied fever, chills, chest pain or shortness of breath. She did note urinary frequency dysuria. This is a 1st episode of this type of pain. She states she took tramadol and ibuprofen with no relief for pain. Related Data Home Medications Medication Instructions Recorded Confirmed loratadine 10 mg capsule 10 mg PO DAILY 02/20/20 09/24/22 baclofen 20 mg tablet 20 mg PO TID 01/06/21 09/24/22 fluticasone propionate 50 2 spray intranasal DAILY 01/06/21 09/24/22 mcg/actuation nasal spray,suspension lactulose 10 gram/15 mL oral 10 g PO DAILY 02/09/21 09/24/22 solution hydroxyzine pamoate 25 mg capsule 50 mg PO 10/29/21 01/27/22 bupropion HCl 300 mg 24 hr tablet, 300 mg PO QPM 01/07/22 09/24/22 extended release hydrochlorothiazide 12.5 mg tablet 12.5 mg PO DAILY 01/07/22 09/24/22 trazodone 150 mg tablet 150 mg PO DAILY 01/07/22 09/24/22 famotidine 40 mg tablet 40 mg PO BEDTIME 01/27/22 09/24/22 gabapentin 600 mg tablet 800 mg PO TID Pain 01/27/22 09/24/22 ibuprofen 600 mg tablet 800 mg PO Q6H PRN pain 01/27/22 09/24/22 lorazepam 1 mg tablet 1 mg PO DAILY Anxiety 01/27/22 09/24/22 sumatriptan succinate 50 mg tablet 0 mg PO 01/27/22 01/27/22 mirtazapine 30 mg tablet 30 mg PO BEDTIME 02/21/23 topiramate 25 mg tablet 25 mg PO DAILY 02/21/23 Previous Rx's Medication Instructions Recorded albuterol sulfate 90 mcg/actuation 2 puff inhalation Q6H PRN 11/14/20 aerosol inhaler shortness of breath or wheezing #8.5 grams lidocaine 5 % topical patch 1 patch topical DAILY PRN pain #30 12/08/20 (Lidoderm) ea tramadol 50 mg tablet 50 mg PO Q8H PRN pain #14 tabs 03/24/21 benzonatate 100 mg capsule 100 mg PO BID PRN cough #14 caps 07/21/21 terconazole 0.8 % vaginal cream 1 appful vaginal BEDTIME 3 days 11/10/22 #20 grams pentosan polysulfate sodium 100 mg 100 mg PO .COMPLEX #90 caps 01/14/23 capsule (Elmiron) phenazopyridine 200 mg tablet 200 mg PO TID urinary burning, 02/21/23 (Pyridium) pain #20 tabs cefuroxime axetil 250 mg tablet 250 mg PO Q12H 5 days #10 tabs 02/28/23 morphine 15 mg immediate release 15 mg PO Q6H PRN pain #10 tabs 02/28/23 tablet Allergies Allergy/AdvReac Type Severity Reaction Status Date / Time dust Allergy Mild unknown Uncoded 02/21/23 13:30 Review of Systems Review of Systems: Yes all other systems are reviewed and are negative [facility] Past Medical History [facility] Narrative: Social history: She does smoke cigarettes. She denies alcohol use. She denies drug use. Medical History Cystitis Seasonal allergies Anxiety and depression Chronic pain syndrome Spondylosis of lumbar spine Disc degeneration, lumbar COVID-19 Depression Fibromyalgia Arthritis Migraines Asthma Surgical History Hx of bladder endoscopy Hx of colonoscopy History of salpingo-oophorectomy History of bilateral tubal ligation H/O LEEP History of carpal tunnel release Family History Family History Sister History of breast cancer, Onset Age: 52 Brother History of bone cancer History of blood disorder History of brain cancer Paternal Aunt History of cancer of uterus Social History Alcohol intake: never Patient Tobacco Use Status: Current everyday Tobacco user Cigarettes Per Day: 10 Smoked in Last 30 Days: Yes Use of substances other than those prescribed or required for medical reasons: Yes Substance Use Type: Marijuana Substance Use Frequency: Occasionally Advance Directives: No Patient : No Sexual orientation: Straight/Heterosexual Gender identity: Female Physical Exam Vital Signs: Vital Signs: Last Vital Signs Temp 97.5 F 02/28/23 05:10 Pulse 89 02/28/23 05:10 Resp 18 02/28/23 05:10 BP 127/82 02/28/23 05:10 Pulse Ox 97 02/28/23 05:10 O2 Del Method Room Air 02/28/23 05:10 BMI result Body Mass Index 25.4 Vital signs were normal Exam: General: Awake, alert, in [id number] distress secondary to back pain Head: Normocephalic, atraumatic EENT: PERRL, Lids normal, sclera normal, conjunctiva normal, nose normal , ears normal, throat without erythema or exudates Neck: Supple, no adenopathy, no trachea midline or C-spine tenderness Lung: breath sounds symmetric, no wheezing, rales or rhonchi Chest: symmetric movement, nontender Heart: regular rate and rhythm, normal S1, S2 no murmurs or rubs Abdomen: soft, mild to moderate right lower quadrant tenderness, nondistended, normal bowel sounds Back: no vertebral tenderness, moderate right CVA tenderness Extremities: no deformities, moves all extremities symmetrically Neuro: Awake, alert, oriented, normal speech, moves all extremities symmetrically Psych: Pleasant, cooperative Medications Administered Discontinued Medications Generic Name Dose Route Start Last Admin Trade Name Freq PRN Reason Stop Dose Admin Sodium Chloride 1,000 mls @ 999 mls/hr 02/28/23 06:05 02/28/23 06:21 Ns IV 02/28/23 07:05 999 mls/hr .Q1H1M STA Administration Ketorolac Tromethamine 15 mg 02/28/23 06:05 02/28/23 06:22 Ketorolac Tromethamine 15 Mg/Ml Vial IVPUSH 02/28/23 06:06 15 mg ONCE STA Administration Ondansetron HCl 4 mg 02/28/23 06:05 02/28/23 06:20 Ondansetron Hcl 4 Mg/2 Ml Vial IVPUSH 02/28/23 06:06 4 mg ONCE ONE Administration Medical Decision Making Medical Decision Making MDM Narrative: 47-year-old female with history of cystitis, anxiety, depression, chronic pain syndrome, spondylosis of lumbar spine, degenerative lumbar disease, depression, fibromyalgia, migraines, asthma who presents emergency department for evaluation of right lower back and right flank pain. Patient states that 2 days prior she developed pain in her right back, the pain came on suddenly but resolved. Pain came back suddenly last night at 20:00 hours, located in her right flank and radiates to her right lower quadrant. Pain was 9/10, associated with diaphoresis, nausea and urinary frequency. Vital signs were normal. Physical exam revealed right CVA tenderness and right lower quadrant tenderness. Following evaluation was ordered: CBC, CMP, urinalysis, CT scan of the abdomen pelvis without IV contrast Patient was treated with Toradol 15 mg IV, Zofran 4 mg IV and normal saline x1 L 06:19 My interpretation patient's laboratory evaluation is as follows: CBC was normal. CMP revealed an elevated glucose of 121. The urinalysis revealed 3+ blood, + leukocyte, + protein. Microscopic revealed greater than 20 RBCs, 11 to 20 WBCs, 4+ bacteria greater than 20 squamous cells-this is a non clean catch specimen therefore is nondiagnostic. 07:03 CT scan of the patient's abdomen pelvis without IV contrast did not reveal a clear etiology for the patient's pain At this time I do not have a clear etiology, it is possible with pain could be musculoskeletal or may be secondary to urinary tract infection. Patient will be treated empirically with cefuroxime 250 mg q.12 hours x 5 days Patient was advised to take Tylenol ibuprofen for pain and for pain not relieved by these medications she was prescribed morphine. She was given printed and verbal instructions and discharged home. Differential Diagnosis Differential Diagnoses: The differential diagnosis associated with the presentation includes Differential diagnosis includes was not limited to renal colic, ureteral stone, urinary tract infection, pyelonephritis, electrolyte abnormalities, anemia Admission/Observation Consideration of admission/observation: Escalation of care including admission/observation considered Lab Data [facility] Lab Attestation statement: I reviewed the patient's lab results. See MDM 02/28/23 05:27 02/28/23 05:27 Labs: Lab Results 02/28/23 02/28/23 Range/Units 05:18 05:27 WBC 6.5 (4.8-10.8) X10*3/uL RBC 4.04 L (4.20-5.50) X10*6/uL Hgb 12.6 (12.0-16.0) g/dl Hct 37.8 (37.0-47.0) % MCV 93.6 (80.0-98.0) fL MCH 31.2 (27.0-33.0) pg MCHC 33.3 (31.0-35.0) g/dl RDW 13.3 (11.0-16.0) % Plt Count 264 (160-400) X10*3/uL MPV 9.4 (9.4-12.3) fL Immature Gran % (Auto) 0.3 (0.0-0.4) % Neut % (Auto) 50.1 (45-73) % Lymph % (Auto) 41.5 H (20-40) % [place] % (Auto) 6.1 (2-11) % Eos % (Auto) 1.7 (0-4) % Baso % (Auto) 0.3 (0-2) % Lymph # (Auto) 2.7 (1.2-4.9) X10*3/uL [place] # (Auto) 0.4 (0.1-1.2) X10*3/uL Eos # (Auto) 0.1 (0.0-0.4) X10*3/uL Baso # (Auto) 0.0 (0.0-0.2) X10*3/uL Abs Immat Gran (auto) 0.02 (0.00-0.03) X10*3/uL Absolute Neuts (auto) 3.3 (2.0-8.3) x10*3/uL Absolute Nucleated RBC 0.000 (0.0-0.012) X10*3/uL Nucleated RBC % (auto) 0.0 (0.0-0.2) /100WBC Sodium 141 (135-145) mmol/L Potassium 3.6 (3.3-5.1) mmol/L Chloride 107 (96-108) mmol/L Carbon Dioxide 25 (22-29) mmol/L Anion Gap 13 (12-20) BUN 9 (9-16) mg/dL Creatinine 0.78 (0.5-1.4) mg/dL Estim Creat Clear Calc 82.1 Estimated GFR > 60 Random Glucose 121 H (60-115) mg/dL Calcium 9.1 D (8.4-10.2) mg/dL Total Bilirubin 0.2 (0.0-1.0) mg/dL Direct Bilirubin < 0.2 (0.0-0.5) mg/dL AST 16 (5-31) U/L ALT 9 (0-31) U/L Alkaline Phosphatase 42 (39-117) U/L Total Protein 7.3 (6.5-8.0) g/dL Albumin 4.0 (3.5-5.0) g/dL Lipase 29 (8-78) U/L Urine Color Yellow Urine Appearance Turbid Urine pH 6.0 (5.0-9.0) Ur Specific [place] 1.025 (1.005-1.025) Urine Protein 30 (1+) H (Neg-Trace) mg/dL Urine Glucose (UA) Negative (Negative) mg/dL Urine Ketones Trace (Negative) mg/dL Urine Blood Large (3+) H (Negative) Urine Nitrite Negative (Negative) Ur Leukocyte Esterase Small (1+) H (Negative) Urine RBC >20 H (0-2) /HPF Urine WBC 11-20 H (0-5) /HPF Ur Squamous Epith Cells >20 (0-2) /HPF Urine Bacteria 4+ (None Seen) Hyaline Casts 0-2 (0-2) /LPF Radiology Impression Discussion of test interpretation with radiology: I have reviewed the radiologist's reading. Radiologist Impression: CT abdomen pelvis wo IV con IMPRESSION: No acute findings identified in the abdomen/pelvis. Dictated By: Corey Gordon MD Prescription Management I considered prescription management with: Pain Medication and Antibiotic Chronic Conditions Patient?s care impacted by: Other (Chronic pain syndrome) Discharge Plan Discharge Clinical Impression: Acute right flank pain Abdominal pain Qualifiers: Abdominal location: right lower quadrant Qualified Code(s): R10.31 - Right lower quadrant pain Urinary tract infection Qualifiers: Urinary tract infection type: site unspecified Hematuria presence: with hematuria Qualified Code(s): N39.0 - Urinary tract infection, site not specified Patient Disposition: Home, Self-Care Instructions: Urinary Tract Infection in Women (ED), Abdominal Pain (ED) Additional Instructions: Your blood work was unremarkable. Your urinalysis was nondiagnostic. The CT scan of your abdomen pelvis did not reveal a clear cause for your pain, there was no kidney stone seen by the radiologist. I am going to treat you for possible urinary tract infection with cefuroxime 250 mg pills, 1 pill every 12 hours for 5 days Take ibuprofen 200 mg pills, 3 pills every 6 hours as needed for pain. Take Tylenol (acetaminophen) 2 pills every 6 hours as needed for pain. For pain not relieved by ibuprofen or Tylenol take morphine 15 mg pills, 1 pill every 6 hours as needed for pain. This medication will make you sleepy, do not drive or work while taking this medication. Morphine is a narcotic medication and can be addicting. If you are concerned about addiction you can ask the pharmacist for less pills or do not get this prescription filled. Follow-up with your doctor in 2 days. Please return to the emergency department if your symptoms get worse or if you develop any symptoms that are concerning to you. Prescriptions: New cefuroxime axetil 250 mg tablet 250 mg PO Q12H 5 Days Qty: 10 0RF morphine 15 mg tablet 15 mg PO Q6H PRN (Reason: pain) Qty: 10 0RF Rx Instructions: The patient may ask for partial fill; Partial Fill upon patient request. No Action terconazole 0.8 % cream 1 appful vaginal BEDTIME 3 Days Qty: 20 0RF albuterol sulfate 90 mcg/actuation HFA aerosol inhaler 2 puff inhalation Q6H PRN (Reason: shortness of breath or wheezing) Qty: 8.5 0RF lidocaine [Lidoderm] 5 % adhesive patch,medicated 1 patch topical DAILY MDD remove after 12 hours PRN (Reason: pain) Qty: 30 0RF Rx Instructions: leave on most painful area for up to 12 hrs tramadol 50 mg tablet 50 mg PO Q8H PRN (Reason: pain) Qty: 14 0RF benzonatate 100 mg capsule 100 mg PO BID PRN (Reason: cough) Qty: 14 0RF baclofen 20 mg tablet 20 mg PO TID fluticasone propionate 50 mcg/actuation spray,suspension 2 spray intranasal DAILY gabapentin 600 mg tablet 800 mg PO TID lorazepam 1 mg tablet 1 mg PO DAILY loratadine 10 mg capsule 10 mg PO DAILY ibuprofen 600 mg tablet 800 mg PO Q6H PRN (Reason: pain) sumatriptan succinate 50 mg tablet 0 mg PO famotidine 40 mg tablet 40 mg PO BEDTIME lactulose 10 gram/15 mL solution 10 g PO DAILY hydroxyzine pamoate 25 mg capsule 50 mg PO hydrochlorothiazide 12.5 mg tablet 12.5 mg PO DAILY bupropion HCl 300 mg tablet extended release 24 hr 300 mg PO QPM trazodone 150 mg tablet 150 mg PO DAILY Elmiron 100 mg capsule 100 mg PO .COMPLEX Qty: 90 1RF Rx Instructions: 100 mg orally take 2 tabs in the morning, and one tab at night; topiramate 25 mg tablet 25 mg PO DAILY mirtazapine 30 mg tablet 30 mg PO BEDTIME phenazopyridine [Pyridium] 200 mg tablet 200 mg PO TID Qty: 20 1RF Rx Instructions: take with food as may cause stomach upset
[2023-02-28] MEDS: ondansetron HCL 4 MG/2 ML VIAL IVPUSH (06:20)
[2023-02-28] MEDS: 0.9 % Sodium Chloride 1,000 ML 999 ML IV (06:21)
[2023-02-28] MEDS: Ketorolac Tromethamine 15 MG/ML VIAL IVPUSH (06:22)
[2023-02-28] MEDS: cefuroxime axetiL 250 MG TABLET PO (07:52)
[2023-02-28 07:54] VITALS: BP 134/45; PULSE 74; RESP 18; O2SAT 99
== END 2023-02-28 07:58 | disposition home or self-care (01) ==
PROVIDERS: Emergency Provider Emergency Medicine Emergency Medical Services; PCP Internal Medicine
DX: N39.0 Urinary tract infection, site not specified (principal); R10.31 Right lower quadrant pain; F17.210 Nicotine dependence, cigarettes, uncomplicated; F12.90 Cannabis use, unspecified, uncomplicated
CPT/HCPCS: 36415; 74176; 80048; 80076; 81001; 83690; 85025; 87086; 96361; 96374; 96375; 99284; 99285; J1885; J2405

== ENCOUNTER 2023-04-19 07:12 | Emergency (ER) | payer MEDICAID, SELFPAY ==
[2023-04-19 07:25] VITALS: BP 132/77; PULSE 95; RESP 17; TEMP 36.1; O2SAT 94; BMI 26.4
--- NOTE | 2023-04-19 07:53 | ED.GENADULT ---
HPI - General Adult General Chief complaint: Dental/Oral Stated complaint: Pain/lump on tongue Time Seen by Provider: 04/19/23 07:53 Source: patient Mode of arrival: ambulatory Limitations: no limitations History of Present Illness HPI narrative: Patient is a 47 year old assigned female at with a history of chronic pain syndrome presenting to the emergency department today with mouth pain. Patient states that over the last few months she has had pain on the top of her mouth. Patient states that she has not seen her dentist for this. Patient denies any dizziness, lightheadedness, abdominal pain, nausea, vomiting, fever, chills, blurry vision, double vision, loss of vision, chest pain, difficulty breathing, shortness of breath, back pain, night sweats, pain with urination, increased urinary frequency, increased urinary urgency, blood in her urine or stool, syncope or a near syncopal episode, recent trauma or falls, bowel incontinence, bladder incontinence, bowel retention, bladder retention, or any other complaints at this time. Onset (ago): month(s) (3) Location: mouth Severity: mild Severity scale (1-10): 2 Quality: aching and dull Pain Consistency: constant Relieving factors: none Exacerbating factors: eating Associated symptoms: denies other symptoms Treatments prior to arrival: none Related Data Home Medications Medication Instructions Recorded Confirmed loratadine 10 mg capsule 10 mg PO DAILY 02/20/20 09/24/22 baclofen 20 mg tablet 20 mg PO TID 01/06/21 09/24/22 fluticasone propionate 50 2 spray intranasal DAILY 01/06/21 09/24/22 mcg/actuation nasal spray,suspension lactulose 10 gram/15 mL oral 10 g PO DAILY 02/09/21 09/24/22 solution hydroxyzine pamoate 25 mg capsule 50 mg PO 10/29/21 01/27/22 bupropion HCl 300 mg 24 hr tablet, 300 mg PO QPM 01/07/22 09/24/22 extended release hydrochlorothiazide 12.5 mg tablet 12.5 mg PO DAILY 01/07/22 09/24/22 trazodone 150 mg tablet 150 mg PO DAILY 01/07/22 09/24/22 famotidine 40 mg tablet 40 mg PO BEDTIME 01/27/22 09/24/22 gabapentin 600 mg tablet 800 mg PO TID Pain 01/27/22 09/24/22 ibuprofen 600 mg tablet 800 mg PO Q6H PRN pain 01/27/22 09/24/22 lorazepam 1 mg tablet 1 mg PO DAILY Anxiety 01/27/22 09/24/22 sumatriptan succinate 50 mg tablet 0 mg PO 01/27/22 01/27/22 mirtazapine 30 mg tablet 30 mg PO BEDTIME 02/21/23 topiramate 25 mg tablet 25 mg PO DAILY 02/21/23 Previous Rx's Medication Instructions Recorded albuterol sulfate 90 mcg/actuation 2 puff inhalation Q6H PRN 11/14/20 aerosol inhaler shortness of breath or wheezing #8.5 grams lidocaine 5 % topical patch 1 patch topical DAILY PRN pain #30 12/08/20 (Lidoderm) ea tramadol 50 mg tablet 50 mg PO Q8H PRN pain #14 tabs 03/24/21 benzonatate 100 mg capsule 100 mg PO BID PRN cough #14 caps 07/21/21 terconazole 0.8 % vaginal cream 1 appful vaginal BEDTIME 3 days 11/10/22 #20 grams pentosan polysulfate sodium 100 mg 100 mg PO .COMPLEX #90 caps 01/14/23 capsule (Elmiron) phenazopyridine 200 mg tablet 200 mg PO TID urinary burning, 02/21/23 (Pyridium) pain #20 tabs cefuroxime axetil 250 mg tablet 250 mg PO Q12H 5 days #10 tabs 02/28/23 morphine 15 mg immediate release 15 mg PO Q6H PRN pain #10 tabs 02/28/23 tablet lidocaine HCl 2 % mucosal solution 1 appl mucous membrane BID PRN 04/19/23 (Lidocaine Viscous) mouth pain #100 mL Allergies Allergy/AdvReac Type Severity Reaction Status Date / Time dust Allergy Mild unknown Uncoded 02/21/23 13:30 Review of Systems Constitutional: Constitutional: Reports no additional constitutional complaints, Denies chills, Denies fever(s) and Denies night sweats Eyes: Eyes: Reports no additional eye complaints, Denies blurry vision, Denies change in vision, Denies diplopia, Denies eye discharge, Denies loss of vision and Denies eye pain ENT: Denies dizziness and Reports mouth pain Cardiovascular: Cardiovascular: Reports no additional cardiovascular complaints, Denies chest pain, Denies lightheadedness, Denies Loss of Consciousness and Denies dyspnea Respiratory: Respiratory: Reports no additional respiratory complaints and Denies dyspnea Gastrointestinal: Gastrointestinal: Reports no additional gastrointestinal complaints, Denies abdominal pain, Denies melena, Denies hematochezia, Denies change in bowel habits and Denies change in stool character Genitourinary: Genitourinary: Denies hematuria, Denies urinary frequency, Denies dysuria, Denies urinary incontinence, Denies urinary hesitancy and Denies urinary urgency Musculoskeletal: Musculoskeletal: Reports no additional musculoskeletal complaints, Denies numbness and Denies tingling Neurologic: Denies dizziness, Denies loss of vision, Denies numbness and Denies tingling Psychiatric: Psychiatric: Reports no additional psychiatric complaints Endocrine: Endocrine: Reports no additional endocrine complaints Hematologic/Lymphatic: Hematologic/Lymphatic: Reports no additional hematologic/lymphatic complaints Allergic/Immunologic: Allergic/Immunologic: Reports no additional allergic/immunologic complaints PMFSH Past Medical History Attestation statement: The following information was validated with the patient. Source: old records reviewed and nursing notes reviewed Onset Date is defined in the Problem List Problems that require an onset date and time if occurred within 24 hrs of arrival to the ED Aortic Dissection and Rupture; Neurologic impairment; Cardiopulmonary Arrest; Endotracheal Intubation; Insertion or Replacement of Mechanical Circulatory Assist Device Medical History Abnormal uterine bleeding (AUB) Strain of gastrocnemius tendon of right lower extremity Urinary frequency Bladder pain Interstitial cystitis Vaginal discharge Microscopic hematuria Chest pain Cystitis Abdominal mass, left lower quadrant COVID-19 Complex ovarian cyst Bacterial vaginosis Stress incontinence Female pelvic pain Breast lump Well woman exam Seasonal allergies Anxiety and depression Chronic pain syndrome Spondylosis of lumbar spine Disc degeneration, lumbar COVID-19 Depression Fibromyalgia Arthritis Migraines Asthma Surgical History Hx of bladder endoscopy Hx of colonoscopy History of salpingo-oophorectomy History of bilateral tubal ligation H/O LEEP History of carpal tunnel release Family History Family History Sister History of breast cancer, Onset Age: 52 Brother History of bone cancer History of blood disorder History of brain cancer Paternal Aunt History of cancer of uterus Social History Social History Alcohol intake: never Patient Tobacco Use Status: Current everyday Tobacco user Cigarettes Per Day: 10 Substance Use Type: Marijuana Advance Directives: No Sexual orientation: Straight/Heterosexual Gender identity: Female Physical Exam ED Vital Signs: Vital Signs - 24 hr 04/19/23 07:25 Temperature 97.0 F Pulse Rate 95 Respiratory Rate 17 Blood Pressure 132/77 Pulse Oximetry 94 Oxygen Delivery Method Room Air BMI result Body Mass Index 26.4 Const General: cooperative, no acute distress, alert and awake Nutritional Appearance: well nourished Orientation/consciousness: patient oriented x3 Limitations: no limitations HENMT Head: Yes normal to inspection and Yes atraumatic Ears: hearing grossly normal bilaterally and external ears normal General nose exam: Normal external nose present, no nasal discharge noted and no epistaxis Face and sinus: Yes normal facial exam, No abrasion and No laceration Mouth: Normal oral and palatal mucosa present, no drooling and no muffled voice Eyes General: appearance normal, both eyes and all related structures Periorbital: periorbital findings normal Eyelids: Yes eyelids normal Conjunctivae: conjunctivae normal Pupils: Equal, round and reactive pupils present EOM: EOMs intact bilaterally Neck Neck: Yes normal visual inspection, Yes full ROM and Yes no lymphadenopathy Chest Chest palpation & inspection: normal inspection of the chest Resp Effort & Inspection: normal respiratory effort and able to speak in complete sentences GI Inspection: Yes normal to inspection Neuro General: patient oriented x3 and moves all extremities Cranial nerves: Yes Equal, round and reactive pupils present Cognition (Neuro): normal cognition Motor exam (neuro): 5/5 motor strength present throughout Sensory Exam: Normal double simultaneous stimulation for sensation Coordination: [id number] test normal Extrem General: Yes normal to inspection, Yes full ROM and Yes capillary refill normal Psych Appearance: grossly normal Mental Status: mental status grossly normal Affect: normal affect Attitude: cooperative Thought process: Normal thought process present Thought content: Normal thought content present Insight: Good insight present (Psych) Medical Decision Making Medical Decision Making MDM Narrative: Patient is a 47 year old assigned female at with a history of chronic pain syndrome presenting to the emergency department today with mouth pain. Patient's physical exam was unremarkable. I explained my physical exam findings to the patient. I answered all questions asked by the patient. I stressed the importance of the patient taking her medication as prescribed. I stressed the importance of the patient following up with her primary care provider and dentist. I stressed the importance of the patient returning to the emergency department immediately if her symptoms were to worsen or if she were to develop any dizziness, shortness of breath, difficulty breathing, chest pain, blurry vision, loss of vision, nausea, vomiting, abdominal pain, fever, chills, back pain, or any other complaints. Patient verbalized agreement and understanding with this treatment plan and discharge. Differential Diagnosis Differential Diagnoses: The differential diagnosis associated with the presentation includes Mouth pain Admission/Observation Consideration of admission/observation: Escalation of care including admission/observation considered Patient would have been admitted to the hospital had her clinical presentation warranted hospital admission. Prescription Management I considered prescription management with: Pain Medication (patient prescribed viscous lidocaine for pain.) Discharge Plan Discharge Clinical Impression: Mouth pain Patient Disposition: Home, Self-Care Additional Instructions: Follow up with your primary care provider and a dentist. Return to the emergency department immediately if your symptoms worsen or if you develop any dizziness, shortness of breath, difficulty breathing, chest pain, blurry vision, loss of vision, nausea, vomiting, abdominal pain, fever, chills, back pain, or any other complaints. Prescriptions: New lidocaine HCl [Lidocaine Viscous] 2 % solution 1 appl mucous membrane BID PRN (Reason: mouth pain) Qty: 100 0RF No Action terconazole 0.8 % cream 1 appful vaginal BEDTIME 3 Days Qty: 20 0RF albuterol sulfate 90 mcg/actuation HFA aerosol inhaler 2 puff inhalation Q6H PRN (Reason: shortness of breath or wheezing) Qty: 8.5 0RF lidocaine [Lidoderm] 5 % adhesive patch,medicated 1 patch topical DAILY MDD remove after 12 hours PRN (Reason: pain) Qty: 30 0RF Rx Instructions: leave on most painful area for up to 12 hrs tramadol 50 mg tablet 50 mg PO Q8H PRN (Reason: pain) Qty: 14 0RF benzonatate 100 mg capsule 100 mg PO BID PRN (Reason: cough) Qty: 14 0RF cefuroxime axetil 250 mg tablet 250 mg PO Q12H 5 Days Qty: 10 0RF morphine 15 mg tablet 15 mg PO Q6H PRN (Reason: pain) Qty: 10 0RF Rx Instructions: The patient may ask for partial fill; Partial Fill upon patient request. baclofen 20 mg tablet 20 mg PO TID fluticasone propionate 50 mcg/actuation spray,suspension 2 spray intranasal DAILY gabapentin 600 mg tablet 800 mg PO TID lorazepam 1 mg tablet 1 mg PO DAILY loratadine 10 mg capsule 10 mg PO DAILY ibuprofen 600 mg tablet 800 mg PO Q6H PRN (Reason: pain) sumatriptan succinate 50 mg tablet 0 mg PO famotidine 40 mg tablet 40 mg PO BEDTIME lactulose 10 gram/15 mL solution 10 g PO DAILY hydroxyzine pamoate 25 mg capsule 50 mg PO hydrochlorothiazide 12.5 mg tablet 12.5 mg PO DAILY bupropion HCl 300 mg tablet extended release 24 hr 300 mg PO QPM trazodone 150 mg tablet 150 mg PO DAILY Elmiron 100 mg capsule 100 mg PO .COMPLEX Qty: 90 1RF Rx Instructions: 100 mg orally take 2 tabs in the morning, and one tab at night; topiramate 25 mg tablet 25 mg PO DAILY mirtazapine 30 mg tablet 30 mg PO BEDTIME phenazopyridine [Pyridium] 200 mg tablet 200 mg PO TID Qty: 20 1RF Rx Instructions: take with food as may cause stomach upset Referrals: [facility] [place] Family Medicine [Provider Group] (Call to establish and follow up with a primary care provider. If you already have a primary care provider, please follow up with them.) [facility] [place] Primary Care, [facility] [Provider Group] (Call to establish and follow up with a primary care provider. If you already have a primary care provider, please follow up with them.) [facility] [place] Primary Care,[facility] [Provider Group] (Call to establish and follow up with a primary care provider. If you already have a primary care provider, please follow up with them.) Interventions: ED Discharge Assessment Last Done: 04/19/23 08:32 Discharge Date/Time: 04/19/23 08:32 Print Language: Syriac
== END 2023-04-19 08:32 | disposition home or self-care (01) ==
PROVIDERS: Emergency Provider Emergency Medicine
DX: K13.79 Other lesions of oral mucosa (principal); F17.210 Nicotine dependence, cigarettes, uncomplicated
CPT/HCPCS: 99282; 99283

== ENCOUNTER 2023-05-28 07:58 | Outpatient (REF) | payer MEDICAID, SELFPAY | END 2023-05-28 07:59 | disposition home or self-care (01) | LOC: HO.MAMMO 07:58 | PROVIDERS: PCP Internal Medicine; Referring Provider Obstetrics & Gynecology; Visit Provider Internal Medicine | DX: Z12.31 Encounter for screening mammogram for malignant neoplasm of breast (principal) | CPT/HCPCS: 77063; 77067 ==

== ENCOUNTER → 2023-05-28 08:15 | Outpatient (BNV) | payer MEDICAID, SELFPAY | PROVIDERS: PCP Internal Medicine; Visit Provider Radiology Diagnostic Radiology | DX: Z12.31 Encounter for screening mammogram for malignant neoplasm of breast (principal) | CPT/HCPCS: 77063; 77067 ==

== ENCOUNTER 2023-06-16 09:59 | Outpatient (REF) | payer MEDICAID, SELFPAY ==
[2023-06-16 12:17] LABS: Alanine Aminotransferase 10 U/L (0-31); Alkaline Phosphatase 46 U/L (39-117); Anion Gap 12 (12-20); Aspartate Amino Transferase 15 U/L (5-31); Bilirubin Direct < 0.2 mg/dL (0.0-0.5); Bilirubin Total 0.2 mg/dL (0.0-1.0); Blood Urea Nitrogen 10 mg/dL (9-16); Calcium 9.1 mg/dL (8.4-10.2); Carbon Dioxide 26 mmol/L (22-29); Chloride 107 mmol/L (96-108); Cholesterol 191 mg/dL (<200); Estimated Glomerular Filt Rate > 60; Glucose Random 100 mg/dL (60-115); HDL Cholesterol 33 mg/dL (>40); LDL Cholesterol Calculated 137 mg/dL (<100); Potassium 4.2 mmol/L (3.3-5.1); Sodium 141 mmol/L (135-145); Total Protein 7.2 g/dL (6.5-8.0); Triglycerides 107 mg/dL (<150)
[2023-06-16 12:51] LABS: TSH reflex Free T4 3.16 uIU/mL (0.32-4.0)
== END 2023-06-16 10:00 | disposition home or self-care (01) ==
LOC: HO.HHCL 09:59
PROVIDERS: Visit Provider Internal Medicine
DX: I10 Essential (primary) hypertension (principal); R63.5 Abnormal weight gain
CPT/HCPCS: 36415; 80048; 80061; 80076; 84443

== ENCOUNTER 2023-07-18 16:43 | Emergency (ER) | payer MEDICAID, SELFPAY ==
[2023-07-18 17:13] VITALS: BP 134/74; PULSE 88; RESP 18; TEMP 36.3; O2SAT 99; BMI 26.2
--- NOTE | 2023-07-18 17:22 | ED.GENADULT ---
HPI - General Adult General Chief complaint: General Medical Stated complaint: rash all over body Related Data Home Medications ?Medication ?Instructions ?Recorded ?Confirmed loratadine 10 mg capsule 10 mg PO DAILY 02/20/20 09/24/22 baclofen 20 mg tablet 20 mg PO TID 01/06/21 09/24/22 fluticasone propionate 50 2 spray intranasal DAILY 01/06/21 09/24/22 mcg/actuation nasal spray,suspension lactulose 10 gram/15 mL oral 10 g PO DAILY 02/09/21 09/24/22 solution hydroxyzine pamoate 25 mg capsule 50 mg PO 10/29/21 01/27/22 bupropion HCl 300 mg 24 hr tablet, 300 mg PO QPM 01/07/22 09/24/22 extended release hydrochlorothiazide 12.5 mg tablet 12.5 mg PO DAILY 01/07/22 09/24/22 trazodone 150 mg tablet 150 mg PO DAILY 01/07/22 09/24/22 famotidine 40 mg tablet 40 mg PO BEDTIME 01/27/22 09/24/22 gabapentin 600 mg tablet 800 mg PO TID Pain 01/27/22 09/24/22 ibuprofen 600 mg tablet 800 mg PO Q6H PRN pain 01/27/22 09/24/22 lorazepam 1 mg tablet 1 mg PO DAILY Anxiety 01/27/22 09/24/22 sumatriptan succinate 50 mg tablet 0 mg PO 01/27/22 01/27/22 mirtazapine 30 mg tablet 30 mg PO BEDTIME 02/21/23 topiramate 25 mg tablet 25 mg PO DAILY 02/21/23 Previous Rx's ?Medication ?Instructions ?Recorded albuterol sulfate 90 mcg/actuation 2 puff inhalation Q6H PRN 11/14/20 aerosol inhaler shortness of breath or wheezing #8.5 grams lidocaine 5 % topical patch 1 patch topical DAILY PRN pain #30 12/08/20 (Lidoderm) ea tramadol 50 mg tablet 50 mg PO Q8H PRN pain #14 tabs 03/24/21 benzonatate 100 mg capsule 100 mg PO BID PRN cough #14 caps 07/21/21 terconazole 0.8 % vaginal cream 1 appful vaginal BEDTIME 3 days 11/10/22 #20 grams pentosan polysulfate sodium 100 mg 100 mg PO .COMPLEX #90 caps 01/14/23 capsule (Elmiron) phenazopyridine 200 mg tablet 200 mg PO TID urinary burning, 02/21/23 (Pyridium) pain #20 tabs cefuroxime axetil 250 mg tablet 250 mg PO Q12H 5 days #10 tabs 02/28/23 morphine 15 mg immediate release 15 mg PO Q6H PRN pain #10 tabs 02/28/23 tablet lidocaine HCl 2 % mucosal solution 1 appl mucous membrane BID PRN 04/19/23 (Lidocaine Viscous) mouth pain #100 mL Allergies Allergy/AdvReac Type Severity Reaction Status Date / Time No Known Allergies Allergy Verified 07/18/23 17:15 PMFSH Past Medical History Medical History Abnormal uterine bleeding (AUB) Strain of gastrocnemius tendon of right lower extremity Urinary frequency Bladder pain Interstitial cystitis Vaginal discharge Microscopic hematuria Chest pain Cystitis Abdominal mass, left lower quadrant COVID-19 Complex ovarian cyst Bacterial vaginosis Stress incontinence Female pelvic pain Breast lump Well woman exam Seasonal allergies Anxiety and depression Chronic pain syndrome Spondylosis of lumbar spine Disc degeneration, lumbar COVID-19 Depression Fibromyalgia Arthritis Migraines Asthma Surgical History Hx of bladder endoscopy Hx of colonoscopy History of salpingo-oophorectomy History of bilateral tubal ligation H/O LEEP History of carpal tunnel release Family History Family History Sister History of breast cancer, Onset Age: 52 Brother History of bone cancer History of blood disorder History of brain cancer Paternal Aunt History of cancer of uterus Social History Social History Alcohol intake: never Patient Tobacco Use Status: Current everyday Tobacco user Cigarettes Per Day: 10 Substance Use Type: Marijuana Sexual orientation: Straight/Heterosexual Gender identity: Female Physical Exam ED Vital Signs: Vital Signs - 24 hr 07/18/23 17:13 Temperature 97.4 F Pulse Rate 88 Respiratory Rate 18 Blood Pressure 134/74 Pulse Oximetry 99 Oxygen Delivery Method Room Air BMI result Body Mass Index 26.2 Course Course Course Narrative: RME- 47 year old female presents for evaluation of a rash. Symptoms started 10 days ago. She saw her PCP and was given Benadryl and prednisone without improvement Discharge Plan Discharge Prescriptions: No Action terconazole 0.8 % cream 1 appful vaginal BEDTIME 3 Days Qty: 20 0RF albuterol sulfate 90 mcg/actuation HFA aerosol inhaler 2 puff inhalation Q6H PRN (Reason: shortness of breath or wheezing) Qty: 8.5 0RF lidocaine [Lidoderm] 5 % adhesive patch,medicated 1 patch topical DAILY MDD remove after 12 hours PRN (Reason: pain) Qty: 30 0RF Rx Instructions: leave on most painful area for up to 12 hrs tramadol 50 mg tablet 50 mg PO Q8H PRN (Reason: pain) Qty: 14 0RF benzonatate 100 mg capsule 100 mg PO BID PRN (Reason: cough) Qty: 14 0RF cefuroxime axetil 250 mg tablet 250 mg PO Q12H 5 Days Qty: 10 0RF morphine 15 mg tablet 15 mg PO Q6H PRN (Reason: pain) Qty: 10 0RF Rx Instructions: The patient may ask for partial fill; Partial Fill upon patient request. lidocaine HCl [Lidocaine Viscous] 2 % solution 1 appl mucous membrane BID PRN (Reason: mouth pain) Qty: 100 0RF baclofen 20 mg tablet 20 mg PO TID fluticasone propionate 50 mcg/actuation spray,suspension 2 spray intranasal DAILY gabapentin 600 mg tablet 800 mg PO TID lorazepam 1 mg tablet 1 mg PO DAILY loratadine 10 mg capsule 10 mg PO DAILY ibuprofen 600 mg tablet 800 mg PO Q6H PRN (Reason: pain) sumatriptan succinate 50 mg tablet 0 mg PO famotidine 40 mg tablet 40 mg PO BEDTIME lactulose 10 gram/15 mL solution 10 g PO DAILY hydroxyzine pamoate 25 mg capsule 50 mg PO hydrochlorothiazide 12.5 mg tablet 12.5 mg PO DAILY bupropion HCl 300 mg tablet extended release 24 hr 300 mg PO QPM trazodone 150 mg tablet 150 mg PO DAILY Elmiron 100 mg capsule 100 mg PO .COMPLEX Qty: 90 1RF Rx Instructions: 100 mg orally take 2 tabs in the morning, and one tab at night; topiramate 25 mg tablet 25 mg PO DAILY mirtazapine 30 mg tablet 30 mg PO BEDTIME phenazopyridine [Pyridium] 200 mg tablet 200 mg PO TID Qty: 20 1RF Rx Instructions: take with food as may cause stomach upset Print Language: Bhutanese
[2023-07-18 18:13] LABS: MANUAL DIFF FLAG NO
[2023-07-18 18:14] LABS: Basophils Percent Auto 0.4 % (0-2); Eosinophils Absolute Auto 0.1 X10*3/uL (0.0-0.4); Eosinophils Percent Auto 1.4 % (0-4); Hematocrit 37.5 % (37.0-47.0); Hemoglobin 12.9 g/dl (12.0-16.0); Imm Gran Abs Auto 0.08 X10*3/uL (0.00-0.03); Imm Gran Pct Auto 0.8 % (0.0-0.4); Lymphocytes Absolute Auto 3.2 X10*3/uL (1.2-4.9); Lymphocytes Percent Auto 31.3 % (20-40); Mean Corpuscular HGB Conc 34.4 g/dl (31.0-35.0); Mean Corpuscular Hemoglobin 31.6 pg (27.0-33.0); Mean Corpuscular Volume 91.9 fL (80.0-98.0); Mean Platelet Volume 8.9 fL (9.4-12.3); Monocytes Absolute Auto 0.5 X10*3/uL (0.1-1.2); Monocytes Percent Auto 4.5 % (2-11); Neutrophils Absolute Auto 6.2 x10*3/uL (2.0-8.3); Neutrophils Percent Auto 61.6 % (45-73); Platelet Count 310 X10*3/uL (160-400); Red Blood Count 4.08 X10*6/uL (4.20-5.50); Red Cell Distribution Width 13.4 % (11.0-16.0); White Blood Count 10.1 X10*3/uL (4.8-10.8)
[2023-07-18 18:27] LABS: Anion Gap 13 (12-20); Blood Urea Nitrogen 10 mg/dL (9-16); C Reactive Protein 0.53 mg/dL (< or = 0.50); Calcium 9.5 mg/dL (8.4-10.2); Carbon Dioxide 24 mmol/L (22-29); Chloride 105 mmol/L (96-108); Creatinine Clr Calc Pharmacy 85.5; Estimated Glomerular Filt Rate > 60; Glucose Random 112 mg/dL (60-115); Potassium 3.5 mmol/L (3.3-5.1); Sodium 138 mmol/L (135-145)
[2023-07-18 18:53] LABS: Erythrocyte Sedimentation Rate 28 MM/HR (0-20)
== END 2023-07-18 19:49 | disposition left against medical advice (07) ==
PROVIDERS: Physician Assistant; Emergency Provider Emergency Medicine; PCP Internal Medicine
DX: R21 Rash and other nonspecific skin eruption (principal)
CPT/HCPCS: 36415; 80048; 85025; 85652; 86140; 99281; 99283

== ENCOUNTER 2023-07-19 08:38 | Outpatient (REF) | payer MEDICAID, SELFPAY ==
[2023-07-19 15:48] LABS: CT PCR NOT DETECTED (Not Detect.); NG PCR NOT DETECTED (Not Detect.)
[2023-07-20 13:55] LABS: BV Int Neg Control Negative (Negative); BV Int Pos Control Positive (Positive)
[2023-07-21 23:29] LABS: HPV mRNA E6/E7 rflx Not Detected (Not Detected)
== END 2023-07-19 08:39 | disposition home or self-care (01) ==
LOC: HO.LNP 08:38
PROVIDERS: Visit Provider Obstetrics & Gynecology
DX: Z01.419 Encounter for gynecological examination (general) (routine) without abnormal findings (principal); N76.0 Acute vaginitis; R31.29 Other microscopic hematuria
CPT/HCPCS: 0353U; 81002; 87086; 87480; 87510; 87624; 87660; 88142; 99396

== ENCOUNTER 2023-07-19 08:38 | Outpatient (AMB) | payer MEDICAID, SELFPAY ==
--- NOTE | 2023-07-19 08:53 | MHC.OFFVIS ---
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 Media Relations Specialist Required: Yes Media Relations Specialist Language: Artificial Stone Setter Name: Sirisha Thrasher Information Interpreted: non-clinical & clinical Blasting Helper: Blasting Helper Present (Aidyn) Allergies No Known Allergies Allergy (Verified 07/19/23 08:59) Is last menstrual period known: Yes Last menstrual period: 06/18/23 Post menopausal: No HPI HPI Comments History of Present Illness Details Presenting for annual exam, complaining of vaginal discharge associated with itching and no foul malodor, in addition to urinary frequency, dysuria over the last 2 days Last Pap/HPV was ascus/HPV negative in 02/24 Last Mammogram was BI-RADS 1 in 05/28 No previous screening Colonoscopy PFSH Medical History (Updated 07/19/23 @ 09:18 by Macho Sarkar MD) Microscopic hematuria Well woman exam Abnormal uterine bleeding (AUB) Strain of gastrocnemius tendon of right lower extremity Urinary frequency Bladder pain Interstitial cystitis Vaginal discharge Chest pain Cystitis Abdominal mass, left lower quadrant COVID-19 Complex ovarian cyst Bacterial vaginosis Stress incontinence Female pelvic pain Breast lump Seasonal allergies Anxiety and depression Chronic pain syndrome Spondylosis of lumbar spine Disc degeneration, lumbar COVID-19 Depression Fibromyalgia Arthritis Migraines Asthma Surgical History Hx of bladder endoscopy Hx of colonoscopy History of salpingo-oophorectomy History of bilateral tubal ligation H/O LEEP History of carpal tunnel release Family History Sister History of breast cancer, Onset Age: 52 Brother History of bone cancer History of blood disorder History of brain cancer Paternal Aunt History of cancer of uterus Social History Alcohol intake: never Patient Tobacco Use Status: Current everyday Tobacco user Cigarettes Per Day: 10 Substance Use Type: Marijuana Sexual orientation: Straight/Heterosexual Gender identity: Female Female Reproductive History Menstrual Age of Menarche: 9 Duration of menses: 6-7 days Date of last menstrual period: 06/18/23 control method: permanent sterilization Total pregnancies: 3 Full term: 3 Number of Living Children: 3 Date of last pap smear: 02/22/23 (ASCUS) History of abnormal pap smear: Yes Date of Mammogram: 05/28/23 Review of Systems Const All systems reviewed & are unremarkable except as noted in HPI and below Card Reports as per HPI Resp Reports as per HPI GI Reports as per HPI and Reports no additional complaints Reports as per HPI Physical Exam Vital Signs: Last Vital Signs BP 102/66 07/19/23 08:57 BMI result Body Mass Index 26.1 Const General: cooperative, healthy appearing and comfortable Chest Chest palpation & inspection: normal inspection of the chest and normal palpation of entire chest wall Breast/axilla inspection: normal inspection of the breasts and normal inspection of the axillae Breast/axilla palpation: normal palpation of the breasts, normal palpation of the axillae and no axillary lymphadenopathy Resp Effort & Inspection: normal respiratory effort Auscultation: clear to auscultation bilaterally Percussion: percussion normal Cardio Palpation: normal PMI Rate: regular rate Rhythm: regular rhythm Heart sounds: no murmurs and no rubs Peripheral pulses: Peripheral pulses 2+ throughout GI Inspection: Yes normal to inspection Palpation (GI): Soft to palpation, nontender, no guarding, not rigid and No hepatosplenomegaly present Percussion: Yes normal to percussion Auscultation: normal bowel sounds Rectal Exam - Female: deferred General: Yes bladder normal to palpation External Female Exam: No lesion Speculum Exam - Vagina: normal appearance of the vagina, normal palpation, normal vaginal discharge and not erythematous Speculum Exam - Cervix: normal appearance of the cervix and normal palpation Bimanual exam- vagina & uterus: normal bimanual exam, normal palpation, uterine size normal, bladder normal to palpation, consistency normal and normal palpation Bimanual Exam- Adnexa, other: normal adnexae, no masses and no tenderness Assessment & Plan Assessment & Plan (1) Well woman exam: Comment: Ascus/HPV negative in 02/24 Code(s): Z01.419 - Encounter for gynecological examination (general) (routine) without abnormal findings Plan: Co testing done. Counseled the patient about the recommended dietary allowance of 1200 mg of Calcium & 600 IU of vitamin D. Instructions given the patient to schedule next screen Mammogram in 05/29. The patient was referred to GI for screening colonoscopy . The patient was instructed to perform monthly self-breast exams and schedule annual exam in a year. All questions answered and the patient verbalized understanding. (2) Vulvovaginitis: Code(s): N76.0 - Acute vaginitis Plan: GC/CT, Bacterial Vaginosis panel taken, Terazol 0.8% q.h.s. for 3 days was sent to the patient's pharmacy. The patient was instructed to call if symptoms don't improve in 48 hours. (3) Microscopic hematuria: Code(s): R31.29 - Other microscopic hematuria Plan: Urine dip showed microscopic hematuria, will send urine for culture, treat with Macrobid 100 mg p.o. b.i.d. for 5 days and repeat urine dip in 2 weeks. Instructions given the patient to call in case symptoms persist, fever above 100.4, flank pain, nausea or vomiting and to schedule a 2 week follow-up urine dip appointment. Orders: Referrals Gastroenterology Referral Z12.11 - Encounter for screening for malignant neoplasm of colon Medications: New nitrofurantoin monohyd/m-cryst 100 mg (Macrobid) 100 mg PO BID 5 days 10 caps 0RF terconazole 0.8% 1 appful vaginal BEDTIME 3 days 20 grams 0RF Coding Level of Care Code Est Pt Prev Care 40-64y(40931) Diagnoses Well woman exam Z01.419 Vulvovaginitis N76.0 Microscopic hematuria R31.29
[2023-07-19 08:57] VITALS: BP 102/66; BMI 26.1
== END 2023-07-19 10:01 | disposition home or self-care (01) ==
PROVIDERS: PCP Internal Medicine; Visit Provider Obstetrics & Gynecology
DX: Z01.419 Encounter for gynecological examination (general) (routine) without abnormal findings (principal); N76.0 Acute vaginitis; R31.29 Other microscopic hematuria
CPT/HCPCS: 99396

== ENCOUNTER 2023-07-21 19:02 | Emergency (ER) | payer MEDICAID, SELFPAY ==
[2023-07-21 19:42] VITALS: BP 114/72; PULSE 87; RESP 16; TEMP 37.1; O2SAT 98; BMI 26.3
--- NOTE | 2023-07-21 19:43 | ED_ITS ---
HPI - General Adult General Chief complaint: Urogenital-Female Stated complaint: Blood in urine Time Seen by Provider: 07/22/23 00:27 History of Present Illness HPI narrative: The patient is a 47-year-old female who a says that her urine looked bloody today. 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 She says that she was found to have microscopic hematuria. She was started on Macrobid 100 mg p.o. b.i.d. for 5 days. She was also found to have bacterial vaginosis and was prescribed terazosin 0.8% cream at bedtime. The patient says that today she received calls that she missed that she believes were from the gynecology office and may have had results that she does not know the result of. However she was also prescribed metronidazole 500 mg b.i.d.. The patient says today she felt that she had gross hematuria. She says that when she was at the office visit 2 days ago microscopic hematuria. She acknowledges that the urine sample that she gave here in the emergency room did not appear bloody. She is also complaining of pain in her back and in her lower abdomen. She says these symptoms are more bilateral than unilateral. Related Data Home Medications ?Medication ?Instructions ?Recorded ?Confirmed loratadine 10 mg capsule 10 mg PO DAILY 02/20/20 09/24/22 baclofen 20 mg tablet 20 mg PO TID 01/06/21 09/24/22 fluticasone propionate 50 2 spray intranasal DAILY 01/06/21 09/24/22 mcg/actuation nasal spray,suspension lactulose 10 gram/15 mL oral 10 g PO DAILY 02/09/21 09/24/22 solution hydroxyzine pamoate 25 mg capsule 50 mg PO 10/29/21 01/27/22 bupropion HCl 300 mg 24 hr tablet, 300 mg PO QPM 01/07/22 09/24/22 extended release hydrochlorothiazide 12.5 mg tablet 12.5 mg PO DAILY 01/07/22 09/24/22 trazodone 150 mg tablet 150 mg PO DAILY 01/07/22 09/24/22 famotidine 40 mg tablet 40 mg PO BEDTIME 01/27/22 09/24/22 gabapentin 600 mg tablet 800 mg PO TID Pain 01/27/22 09/24/22 ibuprofen 600 mg tablet 800 mg PO Q6H PRN pain 01/27/22 09/24/22 lorazepam 1 mg tablet 1 mg PO DAILY Anxiety 01/27/22 09/24/22 sumatriptan succinate 50 mg tablet 0 mg PO 01/27/22 01/27/22 mirtazapine 30 mg tablet 30 mg PO BEDTIME 02/21/23 topiramate 25 mg tablet 25 mg PO DAILY 02/21/23 diphenhydramine HCl 25 mg tablet 25 mg PO Q6H PRN itch 07/19/23 (Gina-Dryl) Previous Rx's ?Medication ?Instructions ?Recorded albuterol sulfate 90 mcg/actuation 2 puff inhalation Q6H PRN 11/14/20 aerosol inhaler shortness of breath or wheezing #8.5 grams lidocaine 5 % topical patch 1 patch topical DAILY PRN pain #30 12/08/20 (Lidoderm) ea tramadol 50 mg tablet 50 mg PO Q8H PRN pain #14 tabs 03/24/21 benzonatate 100 mg capsule 100 mg PO BID PRN cough #14 caps 07/21/21 pentosan polysulfate sodium 100 mg 100 mg PO .COMPLEX #90 caps 01/14/23 capsule (Elmiron) phenazopyridine 200 mg tablet 200 mg PO TID urinary burning, 02/21/23 (Pyridium) pain #20 tabs cefuroxime axetil 250 mg tablet 250 mg PO Q12H 5 days #10 tabs 02/28/23 morphine 15 mg immediate release 15 mg PO Q6H PRN pain #10 tabs 02/28/23 tablet lidocaine HCl 2 % mucosal solution 1 appl mucous membrane BID PRN 04/19/23 (Lidocaine Viscous) mouth pain #100 mL nitrofurantoin 100 mg PO BID 5 days #10 caps 07/19/23 monohydrate/macrocrystals 100 mg capsule (Macrobid) terconazole 0.8 % vaginal cream 1 appful vaginal BEDTIME 3 days 07/19/23 #20 grams metronidazole 500 mg tablet 500 mg PO BID 7 days #14 tabs 07/20/23 Allergies Allergy/AdvReac Type Severity Reaction Status Date / Time No Known Allergies Allergy Verified 07/21/23 19:46 Review of Systems 2 Review of Systems: Yes all other systems are reviewed and are negative [facility] Past Medical History Medical History (Updated 07/22/23 @ 00:42 by Andrew Villanueva MD) Microscopic hematuria Well woman exam Abnormal uterine bleeding (AUB) Strain of gastrocnemius tendon of right lower extremity Urinary frequency Bladder pain Interstitial cystitis Vaginal discharge Chest pain Cystitis Abdominal mass, left lower quadrant COVID-19 Complex ovarian cyst Bacterial vaginosis Stress incontinence Female pelvic pain Breast lump Seasonal allergies Anxiety and depression Chronic pain syndrome Spondylosis of lumbar spine Disc degeneration, lumbar COVID-19 Depression Fibromyalgia Arthritis Migraines Asthma Surgical History Hx of bladder endoscopy Hx of colonoscopy History of salpingo-oophorectomy History of bilateral tubal ligation H/O LEEP History of carpal tunnel release Family History Family History Sister History of breast cancer, Onset Age: 52 Brother History of bone cancer History of blood disorder History of brain cancer Paternal Aunt History of cancer of uterus Social History Social History Alcohol intake: never Patient Tobacco Use Status: Current everyday Tobacco user Cigarettes Per Day: 10 Smoked in Last 30 Days: No Use of substances other than those prescribed or required for medical reasons: No Substance Use Type: Marijuana Advance Directives: No Advance Directives Information Provided: Yes Patient : No Sexual orientation: Straight/Heterosexual Gender identity: Female Physical Exam ED Vital Signs: Vital Signs - 24 hr 07/21/23 19:42 07/22/23 00:52 07/22/23 00:53 Temperature 98.7 F 98.6 F 98.6 F Pulse Rate 87 90 90 Respiratory Rate 16 16 16 Blood Pressure 114/72 122/81 122/81 Pulse Oximetry 98 96 96 Oxygen Delivery Method Room Air Room Air Room Air BMI result Body Mass Index 26.3 Const Other: The patient is awake and alert and does not appear in obvious distress. HENMT Other: Face is symmetrical. Mucous membranes moist. Eyes Other: Pupils are round equal, conjunctivae are clear Resp Effort & Inspection: normal respiratory effort Auscultation: clear to auscultation bilaterally Cardio Rate: regular rate Rhythm: regular rhythm Heart sounds: S1 normal heart sound present and S2 normal heart sound present GI Other: The patient seemed to have mild diffuse abdominal tenderness without significant focal tenderness. No rebound or guarding. Back/Spine/Pelvis Other: No definite unilateral CVA tenderness. Skin Other: Skin is dry and unremarkable. Neuro Other: The patient is awake, alert, pleasant, cooperative. Cranial nerves are grossly intact and she moves her extremities normally. Extrem Other: No peripheral edema Course Course Course Narrative: This is an RME: Additional HPI, ROS, PE not included below will be deferred to primary provider. 47 yo f presents with microscopic hematuria at [facility] with wood heel flap rubber. Antibiotics given on Tuesday, new one added today. Reports suprapubic discomfort with visible hematuria today. Reports headache and chills. Denies chest pain, shortness of breath, fever, cough. Medical Decision Making Medical Decision Making MDM Narrative: The patient is a 47-year-old woman who presents with a complaint of hematuria. She had had a scheduled annual exam with her automation/controls manager 2 days ago. Apparently she had some microscopic hematuria which prompted a prescription for Macrobid. She was also felt to have vaginitis and was initially started on a topical treatment. She says that she received calls today that may have indicated some results. Additionally she was concerned that she had seen some gross hematuria. I reviewed her chart. Apparently she tested positive for Gardnerella and metronidazole prescription was called in today which she has picked up. The patient's urinalysis currently shows only trace microscopic hematuria. I spoke to the patient about possibly doing a CT of the abdomen and pelvis to look for a kidney stone or other source of hematuria but she indicated that she is not feeling that bad and that if the metronidazole was the appropriate medication for Gardnerella she was just as comfortable going home without a CT. I think this is entirely reasonable. Lab Data 07/21/23 20:07 07/21/23 20:07 Labs: Lab Results 07/21/23 Range/Units 20:07 WBC 9.7 (4.8-10.8) X10*3/uL RBC 4.22 (4.20-5.50) X10*6/uL Hgb 13.2 (12.0-16.0) g/dl Hct 39.0 (37.0-47.0) % MCV 92.4 (80.0-98.0) fL MCH 31.3 (27.0-33.0) pg MCHC 33.8 (31.0-35.0) g/dl RDW 13.4 (11.0-16.0) % Plt Count 280 (160-400) X10*3/uL MPV 9.1 L (9.4-12.3) fL Immature Gran % (Auto) 0.6 H (0.0-0.4) % Neut % (Auto) 59.3 (45-73) % Lymph % (Auto) 32.3 (20-40) % [place] % (Auto) 5.7 (2-11) % Eos % (Auto) 1.7 (0-4) % Baso % (Auto) 0.4 (0-2) % Lymph # (Auto) 3.2 (1.2-4.9) X10*3/uL [place] # (Auto) 0.6 (0.1-1.2) X10*3/uL Eos # (Auto) 0.2 (0.0-0.4) X10*3/uL Baso # (Auto) 0.0 (0.0-0.2) X10*3/uL Abs Immat Gran (auto) 0.06 H (0.00-0.03) X10*3/uL Absolute Neuts (auto) 5.8 (2.0-8.3) x10*3/uL Absolute Nucleated RBC 0.000 (0.0-0.012) X10*3/uL Nucleated RBC % (auto) 0.0 (0.0-0.2) /100WBC Sodium 140 (135-145) mmol/L Potassium 3.7 (3.3-5.1) mmol/L Chloride 104 (96-108) mmol/L Carbon Dioxide 28 (22-29) mmol/L Anion Gap 12 (12-20) BUN 10 (9-16) mg/dL Creatinine 0.79 (0.5-1.4) mg/dL Estim Creat Clear Calc 82.4 Estimated GFR > 60 Random Glucose 113 (60-115) mg/dL Calcium 9.6 (8.4-10.2) mg/dL Total Bilirubin 0.2 (0.0-1.0) mg/dL AST 17 (5-31) U/L ALT 15 (0-31) U/L Alkaline Phosphatase 50 (39-117) U/L C-Reactive Protein 0.77 H (< or = 0.50) mg/dL Total Protein 7.5 (6.5-8.0) g/dL Albumin 4.3 (3.5-5.0) g/dL Urine Color [place] A Urine Appearance Clear Urine pH 7.0 (5.0-9.0) Ur Specific [place] 1.010 (1.005-1.025) Urine Protein Negative (Neg-Trace) mg/dL Urine Glucose (UA) Negative (Negative) mg/dL Urine Ketones Negative (Negative) mg/dL Urine Blood Trace H (Negative) Urine Nitrite Negative (Negative) Ur Leukocyte Esterase Negative (Negative) Urine RBC 6-10 H (0-2) /HPF Urine WBC 0-5 (0-5) /HPF Ur Squamous Epith Cells 0-2 (0-2) /HPF Urine Bacteria None Seen (None Seen) Hyaline Casts 0-2 (0-2) /LPF Discharge Plan Discharge Clinical Impression: Hematuria Patient Disposition: Home, Self-Care Additional Instructions: Your urine test today does not show any significant amount of blood in your urine. Please continue the medications that has been prescribed by your automation/controls manager. Please continue the nitrofurantoin and the metronidazole. If you have continuing concerns about blood in your urine please follow up with your regular doctor. If you feel significantly worse please return to the emergency room. Prescriptions: No Action metronidazole 500 mg tablet 500 mg PO BID 7 Days Qty: 14 0RF albuterol sulfate 90 mcg/actuation HFA aerosol inhaler 2 puff inhalation Q6H PRN (Reason: shortness of breath or wheezing) Qty: 8.5 0RF lidocaine [Lidoderm] 5 % adhesive patch,medicated 1 patch topical DAILY MDD remove after 12 hours PRN (Reason: pain) Qty: 30 0RF Rx Instructions: leave on most painful area for up to 12 hrs tramadol 50 mg tablet 50 mg PO Q8H PRN (Reason: pain) Qty: 14 0RF benzonatate 100 mg capsule 100 mg PO BID PRN (Reason: cough) Qty: 14 0RF cefuroxime axetil 250 mg tablet 250 mg PO Q12H 5 Days Qty: 10 0RF morphine 15 mg tablet 15 mg PO Q6H PRN (Reason: pain) Qty: 10 0RF Rx Instructions: The patient may ask for partial fill; Partial Fill upon patient request. lidocaine HCl [Lidocaine Viscous] 2 % solution 1 appl mucous membrane BID PRN (Reason: mouth pain) Qty: 100 0RF baclofen 20 mg tablet 20 mg PO TID fluticasone propionate 50 mcg/actuation spray,suspension 2 spray intranasal DAILY gabapentin 600 mg tablet 800 mg PO TID lorazepam 1 mg tablet 1 mg PO DAILY loratadine 10 mg capsule 10 mg PO DAILY ibuprofen 600 mg tablet 800 mg PO Q6H PRN (Reason: pain) sumatriptan succinate 50 mg tablet 0 mg PO famotidine 40 mg tablet 40 mg PO BEDTIME lactulose 10 gram/15 mL solution 10 g PO DAILY hydroxyzine pamoate 25 mg capsule 50 mg PO hydrochlorothiazide 12.5 mg tablet 12.5 mg PO DAILY bupropion HCl 300 mg tablet extended release 24 hr 300 mg PO QPM trazodone 150 mg tablet 150 mg PO DAILY Elmiron 100 mg capsule 100 mg PO .COMPLEX Qty: 90 1RF Rx Instructions: 100 mg orally take 2 tabs in the morning, and one tab at night; diphenhydramine HCl [Gina-Dryl] 25 mg tablet 25 mg PO Q6H PRN (Reason: itch) terconazole 0.8 % cream 1 appful vaginal BEDTIME 3 Days Qty: 20 0RF nitrofurantoin monohyd/m-cryst [Macrobid] 100 mg capsule 100 mg PO BID 5 Days Qty: 10 0RF topiramate 25 mg tablet 25 mg PO DAILY mirtazapine 30 mg tablet 30 mg PO BEDTIME phenazopyridine [Pyridium] 200 mg tablet 200 mg PO TID Qty: 20 1RF Rx Instructions: take with food as may cause stomach upset Referrals: Dory Ray MD [Physician] - Interventions: ED Discharge Assessment Last Done: 07/22/23 00:53 Discharge Date/Time: 07/22/23 00:55 Print Language: Ukrainian
[2023-07-21 20:13] LABS: MANUAL DIFF FLAG NO
[2023-07-21 20:17] LABS: Basophils Percent Auto 0.4 % (0-2); Eosinophils Absolute Auto 0.2 X10*3/uL (0.0-0.4); Eosinophils Percent Auto 1.7 % (0-4); Hemoglobin 13.2 g/dl (12.0-16.0); Imm Gran Abs Auto 0.06 X10*3/uL (0.00-0.03); Imm Gran Pct Auto 0.6 % (0.0-0.4); Lymphocytes Absolute Auto 3.2 X10*3/uL (1.2-4.9); Lymphocytes Percent Auto 32.3 % (20-40); Mean Corpuscular HGB Conc 33.8 g/dl (31.0-35.0); Mean Corpuscular Hemoglobin 31.3 pg (27.0-33.0); Mean Corpuscular Volume 92.4 fL (80.0-98.0); Mean Platelet Volume 9.1 fL (9.4-12.3); Monocytes Absolute Auto 0.6 X10*3/uL (0.1-1.2); Monocytes Percent Auto 5.7 % (2-11); Neutrophils Absolute Auto 5.8 x10*3/uL (2.0-8.3); Neutrophils Percent Auto 59.3 % (45-73); Platelet Count 280 X10*3/uL (160-400); Red Blood Count 4.22 X10*6/uL (4.20-5.50); Red Cell Distribution Width 13.4 % (11.0-16.0); White Blood Count 9.7 X10*3/uL (4.8-10.8)
[2023-07-21 20:22] LABS: Appearance Urine Clear; Color Urine Orange; Glucose Urine UA Negative (Negative); Leukocyte Esterase Urine Negative (Negative); Nitrite Urine Negative (Negative); UMIC TRIGGER UACC YES; Urine Blood Trace (Negative); Urine Ketones Negative (Negative); Urine Protein Negative (Neg-Trace)
[2023-07-21 20:23] LABS: Bacteria Urine None Seen (None Seen); Hyaline Casts Urine 0-2 /LPF (0-2); Squamous Epithelial Cell Urine 0-2 /HPF (0-2); WBC Urine 0-5 /HPF (0-5)
[2023-07-21 20:29] LABS: Alanine Aminotransferase 15 U/L (0-31); Albumin Level 4.3 g/dL (3.5-5.0); Alkaline Phosphatase 50 U/L (39-117); Anion Gap 12 (12-20); Aspartate Amino Transferase 17 U/L (5-31); Bilirubin Total 0.2 mg/dL (0.0-1.0); Blood Urea Nitrogen 10 mg/dL (9-16); Calcium 9.6 mg/dL (8.4-10.2); Carbon Dioxide 28 mmol/L (22-29); Chloride 104 mmol/L (96-108); Creatinine Clr Calc Pharmacy 82.4; Estimated Glomerular Filt Rate > 60; Glucose Random 113 mg/dL (60-115); Potassium 3.7 mmol/L (3.3-5.1); Sodium 140 mmol/L (135-145); Total Protein 7.5 g/dL (6.5-8.0)
[2023-07-22 00:52] VITALS: BP 122/81; PULSE 90; RESP 16; TEMP 37; O2SAT 96
[2023-07-22 00:53] VITALS: BP 122/81; PULSE 90; RESP 16; TEMP 37; O2SAT 96
[2023-07-22 01:01] LABS: C Reactive Protein 0.77 mg/dL (< or = 0.50)
== END 2023-07-22 00:55 | disposition home or self-care (01) ==
PROVIDERS: Physician Assistant; Emergency Provider Emergency Medicine
DX: R31.29 Other microscopic hematuria (principal); N76.0 Acute vaginitis; B96.89 Other specified bacterial agents as the cause of diseases classified elsewhere
CPT/HCPCS: 36415; 80053; 81001; 85025; 86140; 99283; 99284

== ENCOUNTER 2023-07-29 09:59 | Outpatient (REF) | payer MEDICAID, SELFPAY ==
[2023-07-30 04:15] LABS: Syphilis Screen Nonreactive (Nonreactive)
== END 2023-07-29 10:00 | disposition home or self-care (01) ==
LOC: HO.HHCL 09:59
PROVIDERS: Visit Provider Internal Medicine
DX: L30.9 Dermatitis, unspecified (principal)
CPT/HCPCS: 36415; 86780

== ENCOUNTER 2023-08-01 13:17 | Outpatient (AMB) | payer MEDICAID, SELFPAY ==
--- NOTE | 2023-08-01 13:20 | A.OFFVIS_ITS ---
Intake Visit Reasons: Abdominal pain/ Hematuria Intake Note: Patient presents today for a follow-up Interstitial cystitis, Urinary Frequency: Meds- Pyridium, Mybertriq & Naproxen Allergies to Antibiotic- No Known Allergies Blood Thinner- None PVR- 55 mL Lab Associate Required: Yes Lab Associate Language: Turkmen Information Interpreted: non-clinical & clinical Accompanied by: Mother Allergies No Known Allergies Allergy (Verified 07/21/23 19:46) HPI Comments Details: --Marlene is a 48-year-old female who presents to the office as a fu for interstitial cystitis. She complains of Increased bladder pain and blood in the urine, she states she stopped Elmiron because she ran out. Plan--resume Elmiron and Pyridium IC diet pamphlet provided again, follow-up in 3 months. Review of chart: 09/02/22--In review of the chart she has been seen in past for pain management for chronic back pain and had evaluation with OB-NATURAL DEVELOPER for pelvic pain. She had imaging in the past and review of? OB-NATURAL DEVELOPER note noted simple left adnexal cyst. She was in the ER last couple of months in June and July for abdominal pain and back pain. CAT scan was done on both the visits. There were no urinary tract stone visualized and kidneys WNL, bladder unremarkable. The patient states having history of microscopic hematuria, c/o's of urinary frequency, urinary incontinence and feeling of? incomplete bladder emptying. The patient takes Motrin occasionally for back pain. Evaluation today:? Urinalysis--Blood: 2+, leukocytes: negative. CT Imaging reviewed with the patient. Plan: Cystoscopy Hydrodistension discussed to be scheduled. Consent was obtained. Instructed not to take NSAIDS? 5 days prior to procedure. 10/28/2022--Here for FU. The patient is following up post-cystoscopy hydrodistention on 09/28/22. A certified engine lathe operator was present during the visit. She states that she has noticed significant improvement in her pain post-procedure. She states that her pain score is down from 10/10 to 6/10 in intensity. The patient still reports urinary urgency and frequently goes to the bathroom. 09/28/22 -- Cystoscopy hydrodistention finding results reviewed --- Bladder capacity post distention was 700 mL. Mild to moderate glomerulations noted post distention. Finding consistent with interstitial cystitis. Evaluation today UA: Blood: 1+ Lino/uL, leukocytes: Negative. Bladder scan PVR 0 mL. It is discussed that Interstitial cystitis (IC) is a chronic condition in which the lining of the bladder is inflamed and symptoms may include bladder pressure, burning with urination, urgency or pelvic pain. The exact cause for IC is not known, but likely factors that contribute would be factors that affect the protective lining of the bladder allowing urine to irritate the bladder wall. Contributing factors may include Recurrent UTI's, autoimmune reaction, heredity or allergy. Treatment includes lifestyle changes including diet modification. Plan: Bladder instillation with nurse was discussed to be scheduled. Myrbetriq 50 mg once daily was ordered. A pamphlet on interstitial cystitis diagnosis and symptoms was provided to the patient with dietary recommendations. The patient will follow up in three months. [facility] Medical History Microscopic hematuria Well woman exam Abnormal uterine bleeding (AUB) Strain of gastrocnemius tendon of right lower extremity Urinary frequency Bladder pain Interstitial cystitis Vaginal discharge Chest pain Cystitis Abdominal mass, left lower quadrant COVID-19 Complex ovarian cyst Bacterial vaginosis Stress incontinence Female pelvic pain Breast lump Seasonal allergies Anxiety and depression Chronic pain syndrome Spondylosis of lumbar spine Disc degeneration, lumbar COVID-19 Depression Fibromyalgia Arthritis Migraines Asthma Surgical History Hx of bladder endoscopy Hx of colonoscopy History of salpingo-oophorectomy History of bilateral tubal ligation H/O LEEP History of carpal tunnel release Family History Sister History of breast cancer, Onset Age: 52 Brother History of bone cancer History of blood disorder History of brain cancer Paternal Aunt History of cancer of uterus Social History Alcohol intake: never Patient Tobacco Use Status: Current everyday Tobacco user Cigarettes Per Day: 10 Substance Use Type: Marijuana Sexual orientation: Straight/Heterosexual Gender identity: Female Female Reproductive History Menstrual Age of Menarche: 9 Review of Systems Const All systems reviewed & are unremarkable except as noted in HPI and below Reports no additional complaints Eyes Reports no additional complaints ENT Reports no additional complaints Card Reports no additional complaints Resp Reports no additional complaints GI Reports no additional complaints Reports as per HPI Musc Reports no additional complaints Skin/Breast Reports system reviewed and no additional complaints, except as documented Neuro Reports no additional complaints Psych Reports no additional complaints Endo Reports no additional complaints Min/Lymph Reports no additional complaints Aller/Immun Reports no additional complaints Office Procedures Post Void Residual Post Residual Void Post Void Residual (PVR): 55 [id number] Void Residual by ultrasound Results AMB Urinalysis, Automated UA Leukoctes 0 Deisy/uL Last Edit by EMILIANO Quintana on 08/01/23 13:29 UA Nitrite Negative Last Edit by EMILIANO Quintana on 08/01/23 13:29 UA Urobilinogen 0.2 mg/dL Last Edit by John Hernandez Nichole on 08/01/23 13:2 9 UA Protein 15 mg/dL Last Edit by EMILIANO Quintana on 08/01/23 13:29 UA pH 6.0 Last Edit by EMILIANO Quintana on 08/01/23 13:29 UA Blood 80 Lino/uL Last Edit by EMILIANO Quintana on 08/01/23 13:29 2+ John Hernandez 08/01/23 13:29 UA Specific [place] 1.025 Last Edit by EMILIANO Quintana on 08/01/23 13: 29 UA Ketone Negative Last Edit by EMILIANO Quintana on 08/01/23 13:29 UA Bilirubin 0 mg/dL Last Edit by EMILIANO Quintana on 08/01/23 13:29 UA Glucose 0 mg/dL Last Edit by EMILIANO Quintana on 08/01/23 13:29 Results Reviewed Results Reviewed: Laboratory Last Values Urine pH (Auto) 6.0 08/01/23 13:28 Specific [place] (Auto) 1.025 08/01/23 13:28 Urine Protein (Auto) 15 mg/dL 08/01/23 13:28 Glucose (UA)(Auto) 0 mg/dL 08/01/23 13:28 Urine Ketones (Auto) Negative 08/01/23 13:28 Urine Blood (Auto) 80 Lino/uL 08/01/23 13:28 Urine Nitrite (Auto) Negative 08/01/23 13:28 Urine Bilirubin (Auto) 0 mg/dL 08/01/23 13:28 Urine Urobilinogen (Auto) 0.2 mg/dL 08/01/23 13:28 Leukocyte Esterase (Auto) 0 Deisy/uL 08/01/23 13:28 Assessment & Plan Assessment & Plan (1) Bladder pain: Code(s): R39.89 - Other symptoms and signs involving the genitourinary system Category: Medical (2) Interstitial cystitis: Code(s): N30.10 - Interstitial cystitis (chronic) without hematuria Category: Medical Plan Resume Elmiron, Pyridium, IC diet follow-up in 3mon Orders: Orders AMB Urinalysis Automated 08/01/23 Z13.9 - Encounter for screening, unspecified AMB Post Void Residual by ultrasound 08/01/23 N39.8 - Other specified disorders of urinary system Medications: Changed From pentosan polysulfate sodium 100 mg orally take 2 tabs in the morning, and one tab at night; 90 caps 1RF To pentosan polysulfate sodium (Elmiron) 100 mg orally take 2 tabs in the morning, and one tab at night; 90 caps 2RF From pentosan polysulfate sodium 100 mg orally take 2 tabs in the morning, and one tab at night; 90 caps 2RF To pentosan polysulfate sodium (Elmiron) 100 mg orally take 2 tabs in the morning, and one tab at night; 90 caps 2RF Patient Instructions: The patient had an opportunity to ask questions regarding treatment plan. The patient expressed understanding and agreement with the above treatment plan. The patient is aware they should contact our office by phone for worsening of their current condition or the appearance of new symptoms. Compliance is encouraged with any medications and followup testing that is ordered. It is a privilege to be allowed the opportunity to participate in the urologic care of your patient. If you have any questions or concerns regarding treatment for the above conditions please do not hesitate to contact me. The office telephone contact is [phone]. This note is constructed in part using voice recognition software. While every effort has been made to ensure accuracy financial sales manager errors may have been included. Yours sincerely, Jessica Beard MD Coding Level of Care Code Est Pt Level 4 (59368) Diagnoses Bladder pain R39.89 Interstitial cystitis N30.10 CPT Codes Post Residual Void - PVR CPT Code: 61406-Ulrc Void Residual by ultrasound ([id number])
== END 2023-08-01 14:23 | disposition home or self-care (01) ==
PROVIDERS: Referring Provider Internal Medicine; Visit Provider Urology
DX: N30.10 Interstitial cystitis (chronic) without hematuria (principal); R39.89 Other symptoms and signs involving the genitourinary system
CPT/HCPCS: 99214

== ENCOUNTER → 2023-08-01 13:17 | Outpatient (BNVA) | payer MEDICAID, SELFPAY | PROVIDERS: Visit Provider Urology | DX: R10.9 Unspecified abdominal pain (principal); N30.10 Interstitial cystitis (chronic) without hematuria; R39.89 Other symptoms and signs involving the genitourinary system; N39.8 Other specified disorders of urinary system | CPT/HCPCS: 51798; 81003; 99212 ==

== ENCOUNTER 2023-08-02 10:03 | Outpatient (AMB) | payer MEDICAID, SELFPAY ==
--- NOTE | 2023-08-02 10:11 | MHC.OFFVIS ---
Vital Signs 08/02/23 10:14 Height 5 ft 4 in Weight 152 lb 1.903 oz BMI 26.1 BP 110/70 Intake Visit Reasons: 2 week urine dip follow up Theater Education Teacher Required: Yes Theater Education Teacher Language: Clip Bolter And Wrapper Name: Sirisha CUMMINGS Information Interpreted: non-clinical & clinical Allergies No Known Allergies Allergy (Verified 07/21/23 19:46) HPI Comments Details: Presenting for repeat urine dip. The patient had microscopic hematuria identified on last visit, urine culture was negative. The patient was seen at urology on 07/[address] scan done 02/24 was negative [facility] Medical History Microscopic hematuria Well woman exam Abnormal uterine bleeding (AUB) Strain of gastrocnemius tendon of right lower extremity Urinary frequency Bladder pain Interstitial cystitis Vaginal discharge Chest pain Cystitis Abdominal mass, left lower quadrant COVID-19 Complex ovarian cyst Bacterial vaginosis Stress incontinence Female pelvic pain Breast lump Seasonal allergies Anxiety and depression Chronic pain syndrome Spondylosis of lumbar spine Disc degeneration, lumbar COVID-19 Depression Fibromyalgia Arthritis Migraines Asthma Surgical History Hx of bladder endoscopy Hx of colonoscopy History of salpingo-oophorectomy History of bilateral tubal ligation H/O LEEP History of carpal tunnel release Family History Sister History of breast cancer, Onset Age: 52 Brother History of bone cancer History of blood disorder History of brain cancer Paternal Aunt History of cancer of uterus Social History Alcohol intake: never Patient Tobacco Use Status: Current everyday Tobacco user Cigarettes Per Day: 10 Substance Use Type: Marijuana Sexual orientation: Straight/Heterosexual Gender identity: Female Female Reproductive History Menstrual Age of Menarche: 9 Review of Systems Const All systems reviewed & are unremarkable except as noted in HPI and below Reports as per HPI and Reports no additional complaints GI Reports no additional complaints Reports no additional complaints Physical Exam Vital Signs: Last Vital Signs BP 110/70 08/02/23 10:14 BMI result Body Mass Index 26.1 Assessment & Plan Assessment & Plan (1) Microscopic hematuria: Code(s): R31.29 - Other microscopic hematuria Category: Medical Plan: Repeat urine dip showed persistent microscopic hematuria with negative urine culture, the patient was seen by Urology yesterday and have follow-up appointment regarding microscopic hematuria, recommended to the patient to follow-up with urology for further management. All questions answered, the patient verbalized understanding Coding Level of Care Code Est Pt Level 3 (88650) Diagnoses Microscopic hematuria R31.29
[2023-08-02 10:14] VITALS: BP 110/70; BMI 26.1
== END 2023-08-02 10:59 | disposition home or self-care (01) ==
PROVIDERS: PCP Internal Medicine; Referring Provider Internal Medicine; Visit Provider Obstetrics & Gynecology
DX: R31.29 Other microscopic hematuria (principal)
CPT/HCPCS: 99213

== ENCOUNTER → 2023-08-02 10:03 | Outpatient (BNVA) | payer MEDICAID, SELFPAY | PROVIDERS: PCP Internal Medicine; Visit Provider Obstetrics & Gynecology | DX: R31.29 Other microscopic hematuria (principal) | CPT/HCPCS: 81002; 99212 ==

== ENCOUNTER 2023-10-04 08:34 | Outpatient (REF) | payer MEDICAID, SELFPAY | END 2023-10-04 08:35 | disposition home or self-care (01) | LOC: HO.MRI 08:34 | PROVIDERS: PCP Internal Medicine; Visit Provider Internal Medicine | DX: Z13.89 Encounter for screening for other disorder (principal) ==

== ENCOUNTER 2023-10-17 08:43 | Outpatient (REF) | payer MEDICAID, SELFPAY ==
--- NOTE | ~2023-10-17 | XR_ITS ---
EXAMINATION: XR LEFT KNEE XR LEFT ANKLE XR LEFT FOOT CLINICAL INFORMATION: Worsening left foot and ankle pain radiating up to left knee. Patient states pain for 2 months, left leg weakness, left foot pain radiates up leg to knee. Patient denies injury. COMPARISON: None available. TECHNIQUE: 4 views left knee, 4 views left ankle, 3 views left foot. FINDINGS: LEFT KNEE: Moderate joint effusion. [id number] narrowing of the medial compartment. Lateral and patellofemoral compartments are preserved. LEFT ANKLE: Tiny posterior calcaneal spurs. Mild degenerative changes at the midfoot. Ankle mortise is preserved. Talar dome is maintained. LEFT FOOT: Moderate degenerative changes in the first metatarsophalangeal joint with joint space narrowing and hypertrophic change. No acute displaced fracture is appreciated. XR/XR knee LT 4V IMPRESSION: 1. Moderate joint effusion left knee. 2. Moderate degenerative changes first metatarsophalangeal joint. 3. No acute displaced fracture. Recommend follow up imaging in 10-14 days if fracture is suspected.
--- NOTE | ~2023-10-17 | XR_ITS ---
EXAMINATION: XR LEFT KNEE XR LEFT ANKLE XR LEFT FOOT CLINICAL INFORMATION: Worsening left foot and ankle pain radiating up to left knee. Patient states pain for 2 months, left leg weakness, left foot pain radiates up leg to knee. Patient denies injury. COMPARISON: None available. TECHNIQUE: 4 views left knee, 4 views left ankle, 3 views left foot. FINDINGS: LEFT KNEE: Moderate joint effusion. Gxww-zz-[id number] narrowing of the medial compartment. Lateral and patellofemoral compartments are preserved. LEFT ANKLE: Tiny posterior calcaneal spurs. Mild degenerative changes at the midfoot. Ankle mortise is preserved. Talar dome is maintained. LEFT FOOT: Moderate degenerative changes in the first metatarsophalangeal joint with joint space narrowing and hypertrophic change. No acute displaced fracture is appreciated. XR/XR ankle LT min 3V IMPRESSION: 1. Moderate joint effusion left knee. 2. Moderate degenerative changes first metatarsophalangeal joint. 3. No acute displaced fracture. Recommend follow up imaging in 10-14 days if fracture is suspected.
--- NOTE | ~2023-10-17 | XR_ITS ---
EXAMINATION: XR LEFT KNEE XR LEFT ANKLE XR LEFT FOOT CLINICAL INFORMATION: Worsening left foot and ankle pain radiating up to left knee. Patient states pain for 2 months, left leg weakness, left foot pain radiates up leg to knee. Patient denies injury. COMPARISON: None available. TECHNIQUE: 4 views left knee, 4 views left ankle, 3 views left foot. FINDINGS: LEFT KNEE: Moderate joint effusion. [id number]-[id number] narrowing of the medial compartment. Lateral and patellofemoral compartments are preserved. LEFT ANKLE: Tiny posterior calcaneal spurs. Mild degenerative changes at the midfoot. Ankle mortise is preserved. Talar dome is maintained. LEFT FOOT: Moderate degenerative changes in the first metatarsophalangeal joint with joint space narrowing and hypertrophic change. No acute displaced fracture is appreciated. XR/XR foot LT min 3V IMPRESSION: 1. Moderate joint effusion left knee. 2. Moderate degenerative changes first metatarsophalangeal joint. 3. No acute displaced fracture. Recommend follow up imaging in 10-14 days if fracture is suspected.
== END 2023-10-17 08:44 | disposition home or self-care (01) ==
LOC: HO.HHCX 08:43
PROVIDERS: Visit Provider Family Medicine
DX: M25.562 Pain in left knee (principal); M79.672 Pain in left foot; M25.462 Effusion, left knee; M19.072 Primary osteoarthritis, left ankle and foot
CPT/HCPCS: 73564; 73610; 73630

== ENCOUNTER 2023-10-19 08:25 | Outpatient (AMB) | payer MEDICAID, SELFPAY ==
--- NOTE | 2023-10-19 08:38 | MHC.OFFVIS ---
Vital Signs 10/19/23 08:48 Height 5 ft 4 in Weight 150 lb 5.684 oz BMI 25.8 BP 110/58 L Blood Pressure Location Rt brachial Position Sitting Pulse 78 Pulse Source Pulse Oximeter Pulse Oximetry (%) 95 Oxygen Delivery Method Room Air Intake Visit Reasons: colonoscopy screening Intake Note: Marlene presents in office today for a scheduled colo s/p scrn CC; [place] s/p is routine as referred by MAP COLORER. Pt has prior hx of colo s/p (2011). Pt denies any new sx or concerns at this time. Rouge Presser Required: No Allergies No Known Allergies Allergy (Verified 10/19/23 08:47) HPI HPI colonoscopy screening: Details: 48 year old? female here today for pre colonoscopy screening.? Patient was sent to us by Dr. Sarkar. Had colonoscopy in 2011. Patient denies any gastrointestinal symptoms in the past or at present.? Occasional acid reflux, uses pantoprazole on as needed basis. Denies any personal or family history of gastrointestinal disease, colon polyps, or CRC.? Denies history of difficulty with sedation or anesthesia in the past.? Negative for history of sleep apnea.? Denies any history of cardiac, renal, pulmonary, or hepatic disease.?? No history of infectious? diseases like hepatitis A, B, C, HIV or tuberculosis.? Patient is not on any anticoagulation [facility] Medical History Microscopic hematuria Well woman exam Abnormal uterine bleeding (AUB) Strain of gastrocnemius tendon of right lower extremity Urinary frequency Bladder pain Interstitial cystitis Vaginal discharge Chest pain Cystitis Abdominal mass, left lower quadrant COVID-19 Complex ovarian cyst Bacterial vaginosis Stress incontinence Female pelvic pain Breast lump Seasonal allergies Anxiety and depression Chronic pain syndrome Spondylosis of lumbar spine Disc degeneration, lumbar COVID-19 Depression Fibromyalgia Arthritis Migraines Asthma Surgical History Hx of bladder endoscopy Hx of colonoscopy History of salpingo-oophorectomy History of bilateral tubal ligation H/O LEEP History of carpal tunnel release Family History Sister History of breast cancer, Onset Age: 52 Brother History of bone cancer History of blood disorder History of brain cancer Paternal Aunt History of cancer of uterus Social History Alcohol intake: never Patient Tobacco Use Status: Current everyday Tobacco user Cigarettes Per Day: 10 Substance Use Type: Marijuana Sexual orientation: Straight/Heterosexual Gender identity: Female Female Reproductive History Menstrual Age of Menarche: 9 Review of Systems Const Denies weight gain and Denies weight loss ENT Reports no additional complaints, Denies dysphagia and Denies odynophagia Card Reports no additional complaints Resp Reports no additional complaints GI Denies abdominal pain, Denies belching, Denies melena, Denies bloating, Denies change in bowel habits, Denies dysphagia, Denies excessive flatus, Denies dyspepsia, Denies heartburn, Denies diarrhea, Denies loose stools, Denies nausea, Denies odynophagia and Denies vomiting Musc Reports no additional complaints Neuro Reports no additional complaints Psych Reports no additional complaints Endo Reports no additional complaints Physical Exam Vital Signs: Last Vital Signs Pulse 78 10/19/23 08:48 BP 110/58 L 10/19/23 08:48 Pulse Ox 95 10/19/23 08:48 Oxygen Delivery Method Room Air 10/19/23 08:48 BMI result Body Mass Index 25.8 Const General: healthy appearing, no acute distress and well developed Nutritional Appearance: well nourished Orientation/consciousness: patient oriented x3 Resp Effort & Inspection: normal respiratory effort, able to speak in complete sentences, no tracheal deviation and symmetric chest movement Auscultation: clear to auscultation bilaterally Cardio Rate: regular rate GI Inspection: Yes normal to inspection and No distended Palpation (GI): Soft to palpation, not firm, nontender and No hepatosplenomegaly present Auscultation: normal bowel sounds General: Yes no CVA tenderness Back/Spine/Pelvis Back: no CVA tenderness Skin General skin exam: elasticity normal, turgor normal and dry skin Neuro General: patient oriented x3 Psych Appearance: grossly normal Mental Status: mental status grossly normal Assessment & Plan Assessment & Plan (1) Screen for colon cancer: Code(s): Z12.11 - Encounter for screening for malignant neoplasm of colon Plan Patient denies any GI, cardiac or respiratory symptoms.? Occasional acid reflux, uses pantoprazole as needed. Denies any issues with anesthesia in the past.? Denies any history of sleep apnea.? No history infectious diseases in the past or present.? Not on any anticoagulation therapy.? No family or personal history of colon cancer or polyps.? Patient denies melena, hematochezia, unintentional weight loss or ribbon like stools.? Discussed at length the pre-procedure,? prep, diet & medications as well as what to expect prior, during and after the procedure.?? Stressed the importance of good bowel prep.? Recommended the use of Vaseline or Calmoseptine OTC & baby wipes with bowel movements to promote comfort.? ?Patient verbalizes understanding and agrees to plan of care.? She was given the opportunity to ask questions and all questions answered.? We will see her after the procedure.? Medications: New bisacodyl (Dulcolax (bisacodyl)) take 4 tabs at noon the day before your colonoscopy 20 mg (4 x 5 mg) PO ONCE 1 day 4 tabs 0RF Z12.11 - Encounter for screening for malignant neoplasm of colon polyethylene glycol 3350 (Miralax) As directed by gastroenterology department at [facility] 238 grams PO ONCE 238 grams 0RF Z12.11 - Encounter for screening for malignant neoplasm of colon Discontinued metronidazole Discontinued Reason: Patient Completed Course 500 mg PO BID 7 days 14 tabs 0RF Coding Level of Care Code New Pt Level 3 (20749) Diagnoses Screen for colon cancer Z12.11 Time Spent (min) 40 Comment 30 minutes spent with patient and additional 10 minutes spent reviewing her records
[2023-10-19 08:48] VITALS: BP 110/58; PULSE 78; O2SAT 95; BMI 25.8
== END 2023-10-19 10:03 | disposition home or self-care (01) ==
PROVIDERS: PCP Internal Medicine; Visit Provider Nurse Practitioner Family
DX: Z12.11 Encounter for screening for malignant neoplasm of colon (principal); Z01.818 Encounter for other preprocedural examination
CPT/HCPCS: 99203

== ENCOUNTER → 2023-10-19 08:25 | Outpatient (BNVA) | payer MEDICAID, SELFPAY | PROVIDERS: PCP Internal Medicine; Visit Provider Nurse Practitioner Family | DX: Z01.818 Encounter for other preprocedural examination (principal) | CPT/HCPCS: 99212 ==

== ENCOUNTER 2023-11-04 08:41 | Outpatient (REF) | payer MEDICAID, SELFPAY ==
--- NOTE | 2023-11-04 08:52 | EMG_ITS ---
Chief complaint: Left-sided leg pain/numbness Reason for referral: Evaluate for radiculopathy versus neuropathy Referred by: Dr. James Procedure done: Left lower extremity NCS/EMG Precautions and/or limitations: None The limb temperature was monitored continuously and remained between 32-36 degrees C during the performance of the NCS. Nerve Conduction Studies Anti Sensory Summary Table ?Stim Site NR Onset (ms) Norm Onset (ms) Peak (ms) Norm Peak (ms) O-P Amp (?V) Norm O-P Amp Site1 Site2 Delta-0 (ms) Dist (cm) Feng (m/s) Norm Feng (m/s) Left Sural Anti Sensory (Lat Mall) Calf ? 3.0 3.4 <4.0 8.3 >5.0 Calf Lat Mall 3.0 14.0 47 Motor Summary Table ?Stim Site NR Onset (ms) Norm Onset (ms) O-P Amp (mV) Norm O-P Amp iAmp (mV) Amp (1st) (%) Site1 Site2 Delta-0 (ms) Dist (cm) Feng (m/s) Norm Feng (m/s) Left Peroneal Motor (Ext Dig Brev) Ankle ? 4.0 <4.0 5.3 >2.5 6.5 100.0 Ankle Ext Dig Brev 4.0 0.0 B Fib ? 11.2 6.0 6.9 113.2 B Fib Ankle 7.2 34.0 47 >40 Poplt ? 12.0 5.9 6.9 111.3 Poplt B Fib 0.8 5.0 62 >40 Left Tibial Motor (Abd Fernández Brev) Ankle ? 3.7 <5 13.2 >2.5 17.6 100.0 Ankle Abd Fernández Brev 3.7 0.0 Knee ? 12.1 6.5 9.3 49.2 Knee Ankle 8.4 40.0 48 >40 EMG ?Side Muscle Nerve Root Ins Act Fibs Psw Amp Dur Poly Recrt Int Pat Comment Left AbdHallucis MedPlantar S1-2 Nml Nml Nml Nml Nml 0 Nml Complete Left AntTibialis Dp Br Peron L4-5 Nml Nml Nml Nml Nml 0 Nml Complete Left PostTibialis Tibial L5, S1 Nml Nml Nml Nml Nml 0 Nml Complete Left MedGastroc Tibial S1-2 Nml Nml Nml Nml Nml 0 Nml Complete Left VastusMed Femoral L2-4 Nml Nml Nml Nml Nml 0 Nml Complete FINDINGS: All motor and sensory nerves tested showed normal latencies, amplitudes and conduction velocities. Concentric needle EMG was performed in selected muscles of the left lower extremity. Study did not reveal signs of electric abnormalities as shown in the table above. IMPRESSION: 1. This is a normal study. 2. There is no electrodiagnostic evidence for peroneal neuropathy, tibial neuropathy, lumbosacral plexopathy, lumbar radiculopathy, or peripheral neuropathy. Thank you for your kind referral. Brandy Plascencia MD, [place] Board Certified, [place] Board [employer] Physical Medicine and Rehabilitation (ABPMR) Board Certified, [place] Board of Electrodiagnostic Medicine (ABEM) [place] [id number] [facility]
== END 2023-11-04 08:42 | disposition home or self-care (01) ==
LOC: HO.NEURO 08:41
PROVIDERS: PCP Internal Medicine; Visit Provider Family Medicine
DX: M79.605 Pain in left leg (principal)
CPT/HCPCS: 95886; 95908

== ENCOUNTER → 2023-11-04 08:52 | Outpatient (BNV) | payer MEDICAID, SELFPAY | PROVIDERS: PCP Internal Medicine; Visit Provider Physical Medicine & Rehabilitation | DX: M79.605 Pain in left leg (principal); R20.2 Paresthesia of skin | CPT/HCPCS: 95886; 95908 ==

== ENCOUNTER 2023-12-13 17:28 | Outpatient (REF) | payer MEDICAID, SELFPAY ==
[2023-12-14 07:34] LABS: CT PCR NOT DETECTED (Not Detect.); NG PCR NOT DETECTED (Not Detect.)
[2023-12-14 11:25] LABS: Bacterial Vaginosis PCR NEGATIVE (Negative); Candida Group PCR DETECTED (Not Detect); Candida glab krusei PCR NOT DETECTED (Not Detect); Trichomonas vaginalis PCR NOT DETECTED (Not Detect)
== END 2023-12-13 17:29 | disposition home or self-care (01) ==
LOC: HO.HHCLNP 17:28
PROVIDERS: Visit Provider Emergency Medicine
DX: N89.8 Other specified noninflammatory disorders of vagina (principal); R30.0 Dysuria
CPT/HCPCS: 0352U; 87086; 87491; 87591

== ENCOUNTER 2024-01-18 09:05 | Outpatient (AMB) | payer MEDICAID, SELFPAY ==
--- NOTE | 2024-01-18 09:06 | A.OFFVIS_ITS ---
Vital Signs 01/18/24 09:19 Height 5 ft 4 in Weight 150 lb BMI 25.7 Intake Visit Reasons: New prob- Left knee pain Intake Note: Marlene is a 48 year old female who presents today for an evaluation of left knee pain. Patient reports constant pain that starts in her left foot and radiates up the lateral side of leg to the posterior aspect of knee. Denies injury. Her pain has been present for a few months and was seen by her PCP who ordered x-rays and a nerve conduction study. States her leg feels tired and heavy. Numbness and tingling in her foot. Hx of cyst removal on the posterior aspect of left knee in her childhood years. Finds no relief with Motrin, gabapentin, or topical creams. She would like to discuss surgical intervention as she was told having arthritis. She is not interested in any injections. Allergies No Known Allergies Allergy (Verified 01/18/24 09:13) Medication List - Last Reconciled 01/18/24 by Symone Mathur PA-C albuterol sulfate 90 mcg/actuation 2 puffs inhalation Q6H PRN baclofen 20 mg PO TID benzonatate 100 mg PO BID PRN bisacodyl (Dulcolax (bisacodyl)) 20 mg (4 x 5 mg) PO ONCE 1 day bupropion HCl XL 150 mg PO QAM cefuroxime axetil 250 mg PO Q12H 5 days diphenhydramine HCl (Gina-Dryl) 25 mg PO Q6H PRN famotidine 40 mg PO BEDTIME fluticasone propionate 50 mcg/actuation 2 sprays intranasal DAILY gabapentin 800 mg PO TID hydrochlorothiazide 25 mg PO QAM hydroxyzine HCl 25 mg PO Q12H ibuprofen 800 mg PO Q8H PRN lactulose 10 grams PO DAILY lidocaine 5% (Lidoderm) 1 patch topical DAILY PRN MDD remove after 12 hours lidocaine HCl 2% (Lidocaine Viscous) 1 appl mucous membrane BID PRN loratadine 10 mg PO DAILY lorazepam 1 mg PO DAILY mirtazapine 15 mg PO BEDTIME nitrofurantoin monohyd/m-cryst 100 mg (Macrobid) 100 mg PO BID 5 days pantoprazole 40 mg PO QAM pentosan polysulfate sodium (Elmiron) 100 mg orally take 2 tabs in the morning, and one tab at night; polyethylene glycol 3350 (Miralax) 238 grams PO ONCE terconazole 0.8% 1 appful vaginal BEDTIME 3 days topiramate 25 mg PO DAILY tramadol 50 mg PO Q8H PRN trazodone 50 mg PO BEDTIME PRN HPI HPI New prob- Left knee pain: Details: 48-year-old female who presents to the office today for an evaluation of left knee pain for a few months. She has not had any injury in the past. She was seen by her PCP who ordered x-rays and nerve conduction study. She states she has constant pain that starts in her left foot the radiates to the lateral aspect of her leg as well as posterior aspect of her knee. She also experiences numbness and tingling in her foot and reports her leg feels tired as well as heavy. She finds no relief with Motrin, gabapentin or topical creams. She would like to discuss surgical intervention. She is not interested in any injections. She has a history of cyst removal at the posterior aspect of her knee in her childhood years. [facility] Medical History (Updated 01/18/24 @ 09:49 by Symone Mathur PA-C) Microscopic hematuria Well woman exam Abnormal uterine bleeding (AUB) Strain of gastrocnemius tendon of right lower extremity Urinary frequency Bladder pain Interstitial cystitis Vaginal discharge Chest pain Cystitis Abdominal mass, left lower quadrant COVID-19 Complex ovarian cyst Bacterial vaginosis Stress incontinence Female pelvic pain Breast lump Seasonal allergies Anxiety and depression Chronic pain syndrome Spondylosis of lumbar spine Disc degeneration, lumbar COVID-19 Depression Fibromyalgia Arthritis Migraines Asthma Surgical History Hx of bladder endoscopy Hx of colonoscopy History of salpingo-oophorectomy History of bilateral tubal ligation H/O LEEP History of carpal tunnel release Family History Sister History of breast cancer, Onset Age: 52 Brother History of bone cancer History of blood disorder History of brain cancer Paternal Aunt History of cancer of uterus Social History Alcohol intake: never Patient Tobacco Use Status: Current everyday Tobacco user Cigarettes Per Day: 10 Substance Use Type: Marijuana Sexual orientation: Straight/Heterosexual Gender identity: Female Female Reproductive History Menstrual Age of Menarche: 9 Review of Systems Const All systems reviewed & are unremarkable except as noted in HPI and below Physical Exam Vital Signs: BMI result Body Mass Index 25.7 Eyes Other: Left knee: Skin intact, no erythema or joint effusion. Tenderness along the medial and lateral joint line. Full ROM with crepitus. Negative Elvin?s. No ligamentous laxity. NVI. ? Left ankle Normal to inspection. She does have tenderness along soft tissue of lat side of ankle into foot. Full ROM. No instability. NVI. Extrem Other: Left knee skin intact, no erythema or joint effusion. Tenderness along the medial joint line. ROM full with crepitus. Negative steinmans. No ligamentous laxity. NVI. She has tenderness along the ATFL of the left ankle, No swelling or laxity Results Reviewed Results Reviewed: xrays of the left knee show well preserved joint space, mild left knee oa Assessment & Plan Assessment & Plan (1) Left ankle tendonitis: Code(s): M77.52 - Other enthesopathy of left foot and ankle Category: Medical (2) Osteoarthritis of left knee: Code(s): M17.12 - Unilateral primary osteoarthritis, left knee Category: Medical Plan We discussed options which include PT, NSAIDs and injections. The patient will defer on the injection today and proceed with PT and NSAIDs. If symptoms persist, she will contact me for an injection, otherwise, PRN. Orders: Orders PT Evaluation and Treatment Today M17.12 - Unilateral primary osteoarthritis, left knee, M77.52 - Other enthesopathy of left foot and ankle Patient Instructions: Scribed for Symone Mathur PA-C, by Javier Rodriguez outside medical sales representative, on 01/18/2024 at 9:30 AM EST.? I, Symone Mathur PA-C, have personally reviewed and agree with the information entered by the scribe. Coding Level of Care Code Est Pt Level 3 (04289) Complex EM visit Add On G2211 Diagnoses Left ankle tendonitis M77.52 Osteoarthritis of left knee M17.12
[2024-01-18 09:19] VITALS: BMI 25.7
== END 2024-01-18 09:49 | disposition home or self-care (01) ==
PROVIDERS: PCP Internal Medicine; Visit Provider Physician Assistant
DX: M77.52 Other enthesopathy of left foot and ankle (principal); M17.12 Unilateral primary osteoarthritis, left knee
CPT/HCPCS: 99213

== ENCOUNTER → 2024-01-18 09:05 | Outpatient (BNVA) | payer MEDICAID, SELFPAY | PROVIDERS: PCP Internal Medicine; Visit Provider Physician Assistant | DX: M77.52 Other enthesopathy of left foot and ankle (principal); M17.12 Unilateral primary osteoarthritis, left knee | CPT/HCPCS: 99212 ==

== ENCOUNTER 2024-02-28 11:56 | Outpatient (AMB) | payer MEDICAID, SELFPAY ==
--- NOTE | 2024-02-28 11:58 | MHC.OFFVIS ---
Vital Signs 02/28/24 12:00 Height 5 ft 4 in Weight 150 lb BMI 25.7 BP 124/74 Intake Visit Reasons: family hx of cancer Clay Mixer Required: Yes Clay Mixer Language: Doctor Of Naturopathic Medicine Services: Clay Mixer Present (In person) Clay Mixer Name: EMILIANO Marin Information Interpreted: non-clinical & clinical Accompanied by: Self / Same As Patient Allergies No Known Allergies Allergy (Verified 02/28/24 12:01) HPI Comments Details: Presenting to discuss her family history of cancer . The patient had a sister diagnosed at the age of 55 with double breast cancer any recent the diagnosis of uterine cancer. The patient has been having irregular menstrual cycles Last co testing in 07/26 was negative Last mammogram in 05/28 was BI-RADS 2 [facility] Medical History (Updated 02/28/24 @ 12:21 by Macho Sarkar MD) Abnormal uterine bleeding (AUB) Microscopic hematuria Well woman exam Strain of gastrocnemius tendon of right lower extremity Urinary frequency Bladder pain Interstitial cystitis Vaginal discharge Chest pain Cystitis Abdominal mass, left lower quadrant COVID-19 Complex ovarian cyst Bacterial vaginosis Stress incontinence Female pelvic pain Breast lump Seasonal allergies Anxiety and depression Chronic pain syndrome Spondylosis of lumbar spine Disc degeneration, lumbar COVID-19 Depression Fibromyalgia Arthritis Migraines Asthma Surgical History Hx of bladder endoscopy Hx of colonoscopy History of salpingo-oophorectomy History of bilateral tubal ligation H/O LEEP History of carpal tunnel release Family History Sister History of breast cancer, Onset Age: 52 Brother History of bone cancer History of blood disorder History of brain cancer Paternal Aunt History of cancer of uterus Social History Alcohol intake: never Patient Tobacco Use Status: Current everyday Tobacco user Cigarettes Per Day: 10 Substance Use Type: Marijuana Sexual orientation: Straight/Heterosexual Gender identity: Female Female Reproductive History Menstrual Age of Menarche: 9 Physical Exam Vital Signs: Last Vital Signs BP 124/74 02/28/24 12:00 BMI result Body Mass Index 25.7 Assessment & Plan Assessment & Plan (1) At high risk for breast cancer: Code(s): Z91.89 - Other specified personal risk factors, not elsewhere classified Category: Medical Plan: Discussed with the patient her increased risk for Breast ca The lifetime risk of breast cancer based on the Tyrer-Cuzick Model is 24% Recommended Intensification of breast Cancer screening with annual MRI breast in addition to annual mammogram and MRI alternating every 6 months. Mammogram done recently , Breast MRI ordered Will refer to Dr Berry for possible Genetic Ca counseling and possible testing, in addition to counseling regarding Chemoprevention strategies All questions answered, the patient verbalized understanding and agreed with the plan (2) Abnormal uterine bleeding (AUB): Code(s): N93.9 - Abnormal uterine and vaginal bleeding, unspecified Category: Medical Plan: Will order pelvic ultrasound . Instructions given the patient to schedule ultrasound follow-up appointment /possible EMB to rule out endometrial pathology including endometrial hyperplasia or malignancy. All questions answered, the patient verbalized understanding Orders: Orders US pelvic and transvaginal Today N93.9 - Abnormal uterine and vaginal bleeding, unspecified MR breast BI wo/w con Today Z80.3 - Family history of malignant neoplasm of breast Referrals General Surgery Referral Z91.89 - Other specified personal risk factors, not elsewhere classified Coding Level of Care Code Est Pt Level 3 (06530) Diagnoses At high risk for breast cancer Z91.89 Abnormal uterine bleeding (AUB) N93.9
[2024-02-28 12:00] VITALS: BP 124/74; BMI 25.7
== END 2024-02-28 12:27 | disposition home or self-care (01) ==
LOC: HO.HWS 11:56
PROVIDERS: PCP Internal Medicine; Visit Provider Obstetrics & Gynecology
DX: N93.9 Abnormal uterine and vaginal bleeding, unspecified (principal); Z80.3 Family history of malignant neoplasm of breast; Z80.49 Family history of malignant neoplasm of other genital organs
CPT/HCPCS: 99213

== ENCOUNTER → 2024-02-28 11:56 | Outpatient (BNVA) | payer MEDICAID, SELFPAY | PROVIDERS: PCP Internal Medicine; Visit Provider Obstetrics & Gynecology | DX: N93.9 Abnormal uterine and vaginal bleeding, unspecified (principal); Z80.3 Family history of malignant neoplasm of breast; Z91.89 Other specified personal risk factors, not elsewhere classified | CPT/HCPCS: 99212 ==

== ENCOUNTER 2024-02-28 17:45 | Outpatient (REF) | payer MEDICAID, SELFPAY ==
[2024-02-29 09:19] LABS: Bacterial Vaginosis PCR NEGATIVE (Negative); Candida Group PCR NOT DETECTED (Not Detect); Candida glab krusei PCR NOT DETECTED (Not Detect); Trichomonas vaginalis PCR NOT DETECTED (Not Detect)
== END 2024-02-28 17:46 | disposition home or self-care (01) ==
LOC: HO.HHCLNP 17:45
PROVIDERS: Visit Provider Internal Medicine
DX: N89.8 Other specified noninflammatory disorders of vagina (principal)
CPT/HCPCS: 0352U; 87086

== ENCOUNTER 2024-03-15 09:25 | Outpatient (AMB) | payer MEDICAID, SELFPAY ==
--- NOTE | 2024-03-15 10:03 | A.OFFVIS_ITS ---
Vital Signs 03/15/24 10:27 Height 5 ft 4 in Weight 152 lb BMI 26.1 BP 127/61 Blood Pressure Location Lt brachial Position Sitting Pulse 87 Intake Visit Reasons: Family history of malignant neoplasm of breast Intake Note: Patient is seen in office for family history of malignant neoplasm of the breast. Pt c/o: right breast pain for yrs, painful to the touch, has calcification found on mm, denies lump, bump, discharge, rendess, no prior breast surgeries or infection, yes to breast feeding with no complications, interested in genetic testing L.OV:03/19/21 (abdominal pain) Bulk Materials Handling Plant Operator Required: Yes Bulk Materials Handling Plant Operator Language: Call Center Manager Services: Bulk Materials Handling Plant Operator Present Bulk Materials Handling Plant Operator Name: Nehal CUMMINGS Information Interpreted: non-clinical & clinical Purchasing Coordinator: Purchasing Coordinator Present Accompanied by: Self / Same As Patient Allergies No Known Allergies Allergy (Verified 03/15/24 10:16) Medication List - Last Reconciled 03/15/24 by Cr Berry MD albuterol sulfate 90 mcg/actuation 2 puffs inhalation Q6H PRN baclofen 20 mg PO TID bisacodyl (Dulcolax (bisacodyl)) 20 mg (4 x 5 mg) PO ONCE 1 day bupropion HCl XL 150 mg PO QAM cefuroxime axetil 250 mg PO Q12H 5 days diphenhydramine HCl (Gina-Dryl) 25 mg PO Q6H PRN famotidine 40 mg PO BEDTIME fluticasone propionate 50 mcg/actuation 2 sprays intranasal DAILY gabapentin 800 mg PO TID hydrochlorothiazide 25 mg PO QAM hydroxyzine HCl 25 mg PO Q12H ibuprofen 800 mg PO Q8H PRN lactulose 10 grams PO DAILY loratadine 10 mg PO DAILY lorazepam 1 mg PO DAILY mirtazapine 15 mg PO BEDTIME pantoprazole 40 mg PO QAM pentosan polysulfate sodium (Elmiron) 100 mg orally take 2 tabs in the morning, and one tab at night; polyethylene glycol 3350 (Miralax) 238 grams PO ONCE terconazole 0.8% 1 appful vaginal BEDTIME 3 days topiramate 25 mg PO DAILY tramadol 50 mg PO Q8H PRN trazodone 50 mg PO BEDTIME PRN HPI Comments Details: 48-year-old female patient with a strong family history of cancers including her sister having breast cancer at the age of 61, mother with lung cancer, brother with blood and bone cancer presenting for possible high risk evaluation due to family history. She reports pain in the right breast but denies a previous history of breast surgery or breast biopsies. She is 3 para 3 and breastfed her 3 children. Her most recent mammogram of 05/28/2023 revealed no mammographic evidence of malignancy (BI-RADS 1). She is interested in undergoing genetic testing. [facility] Medical History Abnormal uterine bleeding (AUB) Microscopic hematuria Well woman exam Strain of gastrocnemius tendon of right lower extremity Urinary frequency Bladder pain Interstitial cystitis Vaginal discharge Chest pain Cystitis Abdominal mass, left lower quadrant COVID-19 Complex ovarian cyst Bacterial vaginosis Stress incontinence Female pelvic pain Breast lump Seasonal allergies Anxiety and depression Chronic pain syndrome Spondylosis of lumbar spine Disc degeneration, lumbar COVID-19 Depression Fibromyalgia Arthritis Migraines Asthma Surgical History Hx of bladder endoscopy Hx of colonoscopy History of salpingo-oophorectomy History of bilateral tubal ligation H/O LEEP History of carpal tunnel release Family History Sister History of breast cancer, Onset Age: 52 Brother History of bone cancer History of blood disorder History of brain cancer Paternal Aunt History of cancer of uterus Mother Hx of cancer of lung Sister Hx of hysterectomy Family/Other Hx of hysterectomy Family/Other Hx of hysterectomy Daughter Hx of thyroid cancer Social History Alcohol intake: never Patient Tobacco Use Status: Current everyday Tobacco user Cigarettes Per Day: 10 Substance Use Type: Marijuana Sexual orientation: Straight/Heterosexual Gender identity: Female Female Reproductive History Menstrual Age of Menarche: 9 Review of Systems Const All systems reviewed & are unremarkable except as noted in HPI and below Physical Exam Vital Signs: Last Vital Signs Pulse 87 03/15/24 10:27 BP 127/61 03/15/24 10:27 BMI result Body Mass Index 26.1 Const General: cooperative and no acute distress Nutritional Appearance: well nourished Orientation/consciousness: patient oriented x3 Limitations: no limitations HEENT Head: Yes normocephalic and Yes atraumatic Ears: hearing grossly normal bilaterally Chest Other: Bilateral areas of fibrocystic change with tenderness to palpation. Left breast: No skin change, no nipple retraction, no nipple discharge, no palpable mass, no enlarged lymph nodes. Right breast: No skin change, no nipple retraction, no nipple discharge, no palpable mass, no enlarged lymph nodes. Resp Effort & Inspection: normal respiratory effort, no audible wheezes, no cough and no respiratory distress Cardio Jugular venous distension: no JVD GI Inspection: Yes normal to inspection Skin Other: Warm, dry, no rash Neuro General: patient oriented x3 Extrem General: Yes no clubbing, cyanosis or edema Assessment & Plan Assessment & Plan (1) At high risk for breast cancer: Code(s): Z91.89 - Other specified personal risk factors, not elsewhere classified Category: Medical (2) Family history of breast cancer: Code(s): Z80.3 - Family history of malignant neoplasm of breast Category: Medical Plan 48-year-old female patient with a strong family history of breast cancer presenting for breast evaluation and genetic testing. Examination today revealed no suspicious findings in either side although she does have bilateral areas of fibrocystic change. Her most recent mammogram of 05/28/2023 revealed no mammographic evidence of malignancy (BI-RADS 1). We discussed genetic testing including the risks and benefits of undergoing the testing. She wishes to proceed with the testing and will undergo the evaluation today. I have asked her to return in approximately 6 weeks to review the results and discuss treatment options. Coding Level of Care Code New Pt Level 4 (62352) Diagnoses At high risk for breast cancer Z91.89 Family history of breast cancer Z80.3
[2024-03-15 10:27] VITALS: BP 127/61; PULSE 87; BMI 26.1
== END 2024-03-15 10:31 | disposition home or self-care (01) ==
PROVIDERS: PCP Internal Medicine; Visit Provider Surgery
DX: N64.4 Mastodynia (principal); Z80.3 Family history of malignant neoplasm of breast; Z91.89 Other specified personal risk factors, not elsewhere classified
CPT/HCPCS: 99214

== ENCOUNTER → 2024-03-15 09:25 | Outpatient (BNVA) | payer MEDICAID, SELFPAY | PROVIDERS: PCP Internal Medicine; Visit Provider Surgery | DX: Z91.89 Other specified personal risk factors, not elsewhere classified (principal); Z80.3 Family history of malignant neoplasm of breast | CPT/HCPCS: 99212 ==

== ENCOUNTER 2024-03-23 10:29 | Outpatient (REF) | payer MEDICAID, SELFPAY | END 2024-03-23 10:30 | disposition home or self-care (01) | LOC: HO.US 10:29 | PROVIDERS: PCP Internal Medicine; Visit Provider Obstetrics & Gynecology | DX: N93.9 Abnormal uterine and vaginal bleeding, unspecified (principal) | CPT/HCPCS: 76830; 76856 ==

== ENCOUNTER 2024-03-26 09:34 | Day surgery (SDC) | payer MEDICAID, SELFPAY ==
[2024-03-26 10:08] VITALS: BMI 26.4
--- NOTE | 2024-03-26 10:08 | MHC.SHP ---
Pre-Procedural Eval Section A - 24 Hr Update-Section A only Date of Service: 03/26/24 Section B - Complete if H&P > 30 days Chief Complaint: screening Relevant Family History (Specify if Yes): No Relevant Social History: Tobacco Use Present Medications: see Short Stay Collaborative assessment Medical History: Significant History (Anxiety and depression Arthritis Asthma Chronic pain syndrome COVID-19 Depression Disc degeneration, lumbar Fibromyalgia Migraines Seasonal allergies Spondylosis of lumbar spine) History of Previous Operations: Relevant previous surgery/procedure and date(s) (H/O LEEP History of bilateral tubal ligation History of carpal tunnel release History of salpingo-oophorectomy Hx of colonoscopy) Allergies: Allergies Allergy/AdvReac Type Severity Reaction Status Date / Time No Known Allergies Allergy Verified 03/26/24 09:51 Review of Systems Sugical H&P ROS: Negative: Constitution, Cardiovascular, Respiratory, Neurological, Psychiatric, Hem-Onc, Allergic/Immunologic, Gastrointestinal, Genitourinary, Musculoskeletal, Integumentary, Endocrine and Eyes/Ears/Nose/Throat Exam Surgical H&P Exam: Normal: HEENT, Normal: Heart, Normal: Lungs, Normal: Extremities, Normal: Abdomen, Normal: Skin and Normal: Neurological Plan Diagnosis/Plan: Unchanged I have reviewed the history and physical and performed a pertinent physical examination on my patient. No changes have occurred unless specified. Time Spent With Patient Time: Total time managing care of this patient today ____ minutes.
--- NOTE | 2024-03-26 10:12 | HO.ANESPROP2 ---
HPI - Anesthesia Eval Consult details Narrative: 48 yo F presenting for colonoscopy [facility] Active Problems Active Problems: All Active Problems Family history of breast cancer (Acute) At high risk for breast cancer (Acute) Left ankle tendonitis (Acute) Osteoarthritis of left knee (Acute) Vulvovaginitis (Acute) Ovarian cyst (Acute) Varicose veins of left lower extremity with inflammation (Acute) Endocervical polyp (Acute) Metrorrhagia (Acute) Abnormal uterine bleeding (AUB) (Acute) Microscopic hematuria (Acute) Well woman exam (Acute) Chronic pain syndrome (Acute) Spondylosis of lumbar spine (Acute) Disc degeneration, lumbar (Acute) Past Medical History Medical History (Updated 03/26/24 @ 09:50 by Radha Briscoe RN) Constipation HTN (hypertension) Abnormal uterine bleeding (AUB) Strain of gastrocnemius tendon of right lower extremity Urinary frequency Bladder pain Interstitial cystitis Vaginal discharge Microscopic hematuria Chest pain Cystitis Seasonal allergies Anxiety and depression Chronic pain syndrome Spondylosis of lumbar spine Disc degeneration, lumbar Abdominal mass, left lower quadrant COVID-19 COVID-19 Complex ovarian cyst Bacterial vaginosis Stress incontinence Female pelvic pain Breast lump Well woman exam Depression Fibromyalgia Arthritis Migraines Asthma Family History Family History Sister History of breast cancer, Onset Age: 52 Brother History of bone cancer History of blood disorder History of brain cancer Paternal Aunt History of cancer of uterus Mother Hx of cancer of lung Sister Hx of hysterectomy Family/Other Hx of hysterectomy Family/Other Hx of hysterectomy Daughter Hx of thyroid cancer Family history of problems with anesthesia: No Surgical History Surgical History Hx of bladder endoscopy History of salpingo-oophorectomy History of bilateral tubal ligation H/O LEEP History of carpal tunnel release History of Problems with Anesthesia: No Social History Social History Alcohol intake: never Patient Tobacco Use Status: Current everyday Tobacco user Cigarettes Per Day: 10 Substance Use Type: Marijuana Advance Directives: No Advance Directives Information Provided: Yes Sexual orientation: Straight/Heterosexual Gender identity: Female Meds Allergies Allergy/AdvReac Type Severity Reaction Status Date / Time No Known Allergies Allergy Verified 03/26/24 09:51 Home Medications ?Medication ?Instructions ?Recorded ?Confirmed ?Last Taken ?Type loratadine 10 mg capsule 10 mg PO DAILY 02/20/20 03/26/24 Unknown History baclofen 20 mg tablet 20 mg PO TID 01/06/21 03/26/24 Unknown History lactulose 10 gram/15 mL oral 10 g PO DAILY 02/09/21 03/26/24 Unknown History solution famotidine 40 mg tablet 40 mg PO BEDTIME 01/27/22 03/26/24 Unknown History gabapentin 600 mg tablet 800 mg PO TID Pain 01/27/22 03/26/24 Unknown History lorazepam 1 mg tablet 1 mg PO DAILY Anxiety 01/27/22 03/26/24 Unknown History topiramate 25 mg tablet 25 mg PO DAILY 02/21/23 03/26/24 Unknown History bupropion HCl 150 mg 24 hr tablet, 150 mg PO QAM 10/19/23 03/26/24 Unknown History extended release hydrochlorothiazide 25 mg tablet 25 mg PO QAM 10/19/23 03/26/24 Unknown History hydroxyzine HCl 25 mg tablet 25 mg PO Q12H 10/19/23 03/26/24 Unknown History mirtazapine 15 mg tablet 15 mg PO BEDTIME 10/19/23 03/26/24 Unknown History pantoprazole 40 mg tablet,delayed 40 mg PO QAM 10/19/23 03/26/24 Unknown History release trazodone 50 mg tablet 50 mg PO BEDTIME PRN insomnia 10/19/23 03/26/24 Unknown History ibuprofen 800 mg tablet 800 mg PO Q8H PRN moderate pain 01/18/24 03/26/24 Unknown History Exam Exam Date and Time: 03/26/24 1010 Airway Mallampati Class: I TM Dist: >3cm Neck ROM: Full Denture: Upper (removed) Heart: S1S2 Lungs: CTAB Assessment and Plan Assessment Anesthesia Assessment: Anesthesia Plan Discussed and Chart Reviewed Final Anesthetic Review Family History of Problems with Anesthesia: No History of Problems with Anesthesia: No NPO: Yes ASA Class: II Final Preanesthetic Review: No Changes in Pt Med Stat, Meds/Allgs Chart Reviewed, Consent Obtained/Reviewed and Anes Risks/Benef Reviewed Patient Risk: Low Procedure Risk: Low Anesthetic Plan Anesthetic Plan: MAC: and Agree w/ Assess. and Plan Disposition: Standard PACU
[2024-03-26 10:16] VITALS: BP 116/59; PULSE 85; RESP 15; TEMP 36.6; O2SAT 95
[2024-03-26] MEDS: Lactated Ringers 1,000 ML 50 ML IVCONT (10:27)
--- NOTE | 2024-03-26 11:22 | P.OPN-COLO_ITS ---
Colonoscopy Operative Note Operative Note Date of Service: 03/26/24 Narrative: Operative Information Procedure Description: Colonoscopy Indication: screening Anesthesia: MAC COLONOSCOPY Instrument: Olympus variable stiffness pediatric scope 190L Colonoscopy Monitoring: Vital signs and clinical assessment, continuous EKG monitoring, Pulse oximetry, Carbon Dioxide monitoring and blood pressure monitoring were done throughout the procedure. Colon withdrawal time was 10 minutes. Procedure: The patient was placed in the left lateral decubitis position and pre-procedure medications were administered. After a digital rectal examination of the ano-rectum, the video colonoscope was inserted into the rectum and advanced through the colon to the cecum/TI. The colonoscope was slowly withdrawn in a retrograde panoramic fashion and the colon mucosa was carefully examined including a retroflexed view of the rectum. Findings and interventions are described below. Procedure Difficulty: easy Findings: Terminal Ileum-normal Cecum:normal Right sided retroflexion- normal Ascending Colon: moderate diverticulosis Transverse Colon -normal Descending Colon:normal Sigmoid Colon: normal Rectum: Retroflexion with small internal hemorrhoids seen, grade I Anorectum - normal Intervention: none Colon preparation: [place] Bowel Preparation Scale Right colon; 2 Transverse colon: 2 Left colon; 2 (0 = Unprepared colon segment with mucosa not seen due to solid stool that cannot be cleared. 1 = Portion of mucosa of the colon segment seen, but other areas of the colon segment not well seen due to staining, residual stool and/or opaque liquid. 2 = Minor amount of residual staining, small fragments of stool and/or opaque liquid, but mucosa of colon segment seen well. 3 = Entire mucosa of colon segment seen well with no residual staining, small fragments of stool or opaque liquid) Impression and Post Procedure Diagnosis: diverticulosis internal hemorrhoids Plan: High fiber diet leaflet Avoid straining at stool, epsom salts and sitz bath, anusol supps or cream Repeat Colonoscopy in 10 years or earlier if clinically indicated Above findings were reviewed with the patient and relevant handouts were provided if indicated.
[2024-03-26 11:29] VITALS: BP 116/63; PULSE 84; RESP 16; TEMP 36.3; O2SAT 99
== END 2024-03-26 12:25 | disposition home or self-care (01) ==
PROVIDERS: PCP Internal Medicine; Visit Provider Internal Medicine Gastroenterology
PROC: 0DJD8ZZ Inspection of Lower Intestinal Tract, Via Natural or Artificial Opening Endoscopic (ICD-10-PCS; CPT 45378; principal; 2024-03-26 11:40)
DX: Z12.11 Encounter for screening for malignant neoplasm of colon (principal); K57.30 Diverticulosis of large intestine without perforation or abscess without bleeding; K64.0 First degree hemorrhoids; J45.909 Unspecified asthma, uncomplicated; G89.4 Chronic pain syndrome; Z98.51 Tubal ligation status; F17.210 Nicotine dependence, cigarettes, uncomplicated; F12.90 Cannabis use, unspecified, uncomplicated
CPT/HCPCS: 45378; J2003; J2704

== ENCOUNTER → 2024-03-26 09:34 | Outpatient (BNV) | payer MEDICAID, SELFPAY | PROVIDERS: PCP Internal Medicine; Visit Provider Internal Medicine Gastroenterology | DX: Z12.11 Encounter for screening for malignant neoplasm of colon (principal); K57.90 Diverticulosis of intestine, part unspecified, without perforation or abscess without bleeding; K64.0 First degree hemorrhoids | CPT/HCPCS: 45378 ==

== ENCOUNTER → 2024-04-09 08:56 | Outpatient (BNV) | payer MEDICAID, SELFPAY | PROVIDERS: PCP Internal Medicine; Visit Provider Internal Medicine | DX: Z80.3 Family history of malignant neoplasm of breast (principal) | CPT/HCPCS: 77049 ==

== ENCOUNTER 2024-04-09 08:58 | Outpatient (REF) | payer MEDICAID, SELFPAY ==
--- NOTE | ~2024-04-09 | MR_ITS ---
EXAMINATION: MR BREAST WITHOUT AND WITH CONTRAST, BILATERAL CLINICAL INFORMATION: Family history of breast cancer including sister in her 50s. High risk screening surveillance. COMPARISON: Mammography May 28, 2023 breast imaging February 18, 2022 TECHNIQUE: MR imaging of the breast was performed using T1, T2 and fat saturated techniques. Dynamic multiphase imaging was also performed after administration of intravenous gadolinium contrast. Computer generated 3-D reconstruction was generated. FINDINGS: There is extremely dense fibroglandular breast tissue with marked background enhancement. LEFT BREAST: No suspicious enhancing masses or areas of nonmass enhancement. No architectural distortion. No internal mammary or axillary adenopathy. RIGHT BREAST: No suspicious enhancing masses or areas of nonmass enhancement. No architectural distortion. No internal mammary or axillary adenopathy. Limited views of the chest and abdomen are unremarkable. MR/MR breast BI wo/w con IMPRESSION: No MRI evidence of malignancy bilateral breasts. ASSESSMENT: LEFT BREAST: BI-RADS 1-Negative RIGHT BREAST: BI-RADS 1-Negative RECOMMENDATIONS: Yearly screening mammography. Recommend yearly MRI screening surveillance. Electronically signed by: Saranya Monteor DO 04/09/2024 04:54 PM EST
[2024-04-09] MEDS: gadobutroL 7.5 ML VIAL IVPUSH (10:16)
== END 2024-04-09 08:59 | disposition home or self-care (01) ==
LOC: HO.MRI 08:58
PROVIDERS: PCP Internal Medicine; Visit Provider Obstetrics & Gynecology
DX: Z12.39 Encounter for other screening for malignant neoplasm of breast (principal); Z80.3 Family history of malignant neoplasm of breast
CPT/HCPCS: 77049; A9585

== ENCOUNTER 2024-04-12 09:38 | Emergency (ER) | payer MEDICAID, SELFPAY ==
--- NOTE | ~2024-04-12 | XR_ITS ---
EXAMINATION: XR CHEST CLINICAL INFORMATION: chest pain COMPARISON: X-ray dated November 11, 2022 TECHNIQUE: 2 views of the chest were obtained. FINDINGS: No consolidation, pleural effusion or pneumothorax. Cardiomediastinal silhouette is normal. Osseous structures are intact. XR/XR chest 2V IMPRESSION: No acute airspace disease. Negative exam. Electronically signed by: Luis Enrique Sheriff MD 04/12/2024 10:11 AM [facility]
--- NOTE | 2024-04-12 09:42 | ECG_ITS ---
Test Reason : chest pain Blood Pressure : */* mmHG Vent. Rate : 89 BPM Atrial Rate : 89 BPM P-R Int : 118 ms QRS Dur : 82 ms QT Int : 334 ms P-R-T Axes : 42 50 34 degrees QTcB Int : 406 ms Normal sinus rhythm Normal ECG When compared with ECG of 08-Aug-2022 17:23, No significant change was found Referred By: Generic ED Physician Electronically Signed By: NIRMAL ÁLVAREZ
[2024-04-12 09:53] VITALS: BP 139/82; PULSE 90; RESP 18; TEMP 36.7; O2SAT 99; BMI 24.2
--- NOTE | 2024-04-12 09:53 | ED.CHESTPAIN ---
HPI - Chest Pain General Chief Complaint: Chest Pain Stated Complaint: chest pain Source: patient and old records reviewed Mode of arrival: ambulatory Limitations: no limitations History of Present Illness ED Provider: TERESA ALMONTE narrative: 48 yo female with PMH of arthritis, AUB, chronic back pain, asthma, GERD here with c/o R sided on and off chest pain since Tuesday feels dyspnea and mild nausea. Occured at rest. Did have recent URI but no fevers. She has not traveled or had any procedures. She notes it hurts to move, touch, bend forward. She came today as it became more sore when she was trying to tie her shoe complaint: chest pain Onset (ago): day(s) (8) Timing of current episode: episodic Prior episodes: Yes Onset: during rest and other (movement) Pain location: left chest Pain radiation: none Severity: moderate Quality: aching and heaviness Relieving factors: nothing Exacerbating factors: palpation and movement Context: recent illness Associated symptoms: dyspnea Treatment prior to arrival: none Related Data Home Medications ?Medication ?Instructions ?Recorded ?Confirmed loratadine 10 mg capsule 10 mg PO DAILY 02/20/20 03/26/24 baclofen 20 mg tablet 20 mg PO TID 01/06/21 03/26/24 lactulose 10 gram/15 mL oral 10 g PO DAILY 02/09/21 03/26/24 solution famotidine 40 mg tablet 40 mg PO BEDTIME 01/27/22 03/26/24 gabapentin 600 mg tablet 800 mg PO TID Pain 01/27/22 03/26/24 lorazepam 1 mg tablet 1 mg PO DAILY Anxiety 01/27/22 03/26/24 topiramate 25 mg tablet 25 mg PO DAILY 02/21/23 03/26/24 bupropion HCl 150 mg 24 hr tablet, 150 mg PO QAM 10/19/23 03/26/24 extended release hydrochlorothiazide 25 mg tablet 25 mg PO QAM 10/19/23 03/26/24 hydroxyzine HCl 25 mg tablet 25 mg PO Q12H 10/19/23 03/26/24 mirtazapine 15 mg tablet 15 mg PO BEDTIME 10/19/23 03/26/24 pantoprazole 40 mg tablet,delayed 40 mg PO QAM 10/19/23 03/26/24 release trazodone 50 mg tablet 50 mg PO BEDTIME PRN insomnia 10/19/23 03/26/24 ibuprofen 800 mg tablet 800 mg PO Q8H PRN moderate pain 01/18/24 03/26/24 Previous Rx's ?Medication ?Instructions ?Recorded albuterol sulfate 90 mcg/actuation 2 puff inhalation Q6H PRN 11/14/20 aerosol inhaler shortness of breath or wheezing #8.5 grams tramadol 50 mg tablet 50 mg PO Q8H PRN pain #14 tabs 03/24/21 pentosan polysulfate sodium 100 mg 100 mg PO .COMPLEX #90 caps 08/01/23 capsule (Elmiron) diazepam 5 mg tablet (Valium) 5 mg PO BID PRN muscle spasm #10 04/12/24 tabs lidocaine 5 % topical patch 1 patch topical DAILY #30 ea 04/12/24 Allergies Allergy/AdvReac Type Severity Reaction Status Date / Time No Known Allergies Allergy Verified 04/12/24 09:55 Review of Systems Review of Systems: Constitutional : No Weight loss, No Fever, No Chills ENT/Mouth : No sore throat, No Rhinorrhea Eyes: No Eye Pain, No Swelling Cardiovascular : pos Chest Pain, pos SOB, no Dyspnea on Exertion, No Orthopnea, No Edema, No Palpitations Respiratory : No Cough, No Sputum Gastrointestinal : pos Nausea, No Vomiting, No Diarrhea, No abdominal Pain, No Hematochezia, No Melena Genitourinary : No Dysuria, No Urinary Frequency Musculoskeletal : No joint pain, No Myalgias, No Joint Swelling Skin : No Skin Lesions, No rash Neuro : No Weakness, No Numbness, No Dizziness, No Headache Psych : No Anxiety/Panic, No Depression All other systems reviewed and are negative [facility] Past Medical History Attestation statement: The following information was validated with the patient. Source: old records reviewed Medical History Constipation HTN (hypertension) Abnormal uterine bleeding (AUB) Strain of gastrocnemius tendon of right lower extremity Urinary frequency Bladder pain Interstitial cystitis Vaginal discharge Microscopic hematuria Chest pain Cystitis Seasonal allergies Anxiety and depression Chronic pain syndrome Spondylosis of lumbar spine Disc degeneration, lumbar Abdominal mass, left lower quadrant COVID-19 COVID-19 Complex ovarian cyst Bacterial vaginosis Stress incontinence Female pelvic pain Breast lump Well woman exam Depression Fibromyalgia Arthritis Migraines Asthma Surgical History Hx of bladder endoscopy History of salpingo-oophorectomy History of bilateral tubal ligation H/O LEEP History of carpal tunnel release Family History Family History Sister History of breast cancer, Onset Age: 52 Brother History of bone cancer History of blood disorder History of brain cancer Paternal Aunt History of cancer of uterus Mother Hx of cancer of lung Sister Hx of hysterectomy Family/Other Hx of hysterectomy Family/Other Hx of hysterectomy Daughter Hx of thyroid cancer Social History Social History Alcohol intake: never Patient Tobacco Use Status: Current everyday Tobacco user Tobacco use type: Cigarette Cigarettes Per Day: 8 Substance Use Type: Marijuana Advance Directives: No Advance Directives Information Provided: Yes Sexual orientation: Straight/Heterosexual Gender identity: Female Physical Exam Vital Signs: Vital Signs: Last Vital Signs Temp 98.0 F 04/12/24 09:53 Pulse 90 04/12/24 09:53 Resp 18 04/12/24 09:53 BP 139/82 04/12/24 09:53 Pulse Ox 99 04/12/24 09:53 O2 Del Method Room Air 04/12/24 09:53 BMI result Body Mass Index 24.2 Appearance: Alert. Oriented X3. No acute distress. Eyes: Pupils equal, round and reactive to light. ENT: Pharynx normal. Neck: Normal inspection. Neck supple. CVS: Normal heart rate and rhythm. Pulses normal. Chest: ttp along costochondral border Respiratory: No respiratory distress. Breath sounds normal. Abdomen: Soft and nontender. Skin: Skin warm and dry. Normal skin color. Normal skin turgor. Extremities: No lower extremity edema. No calf ttp Neuro: Oriented X 3. No motor deficit. No sensory deficit. CN2-12 intact Course Course Course Narrative: 48 yo female with PMH of arthritis, AUB, chronic back pain, asthma, GERD here with c/o R side chest pain since Tuesday worse with movements, touching, bending down. No known trauma, no travel or procedures. Has dyspnea and nausea. Did have preceding cough and cold. At this time EKG, basic labs, CXR, swab. this is a RAPID medical screening exam the rest of the history and physical exam is to be done by the main provider. Medical Decision Making Medical Decision Making [facility] Narrative: 48 yo female with PMH of arthritis, AUB, chronic back pain, asthma, GERD here with c/o chest wall pain worse with movements, she did have recent URI cold, at this time EKG and trop x 1 given pain > 24 hours, doubt VTE given lack of DVT findings/tachycardia/hypoxia and her pain seems more MSK in nature. Doubt dissection given the duration as well as distal pulses intact. She had recent viral syndrome now with reproduceable costochondral border ttp suspect more costochondritis Differential Diagnosis Differential Diagnoses: The differential diagnosis associated with the presentation includes chest wall pain, distal pulses intactc doubt dissection, no signs of DVT no tachycardia/hypoxia to suggest VTE suspect more MSK pain in nature Admission/Observation Consideration of admission/observation: Escalation of care including admission/observation considered Lab Data [facility] Lab Attestation statement: I reviewed the patient's lab results. 04/12/24 10:00 04/12/24 10:00 Labs: Lab Results 04/12/24 Range/Units 10:00 WBC 8.3 (4.8-10.8) X10*3/uL RBC 3.82 L (4.20-5.50) X10*6/uL Hgb 12.1 (12.0-16.0) g/dl Hct 35.4 L (37.0-47.0) % MCV 92.7 (80.0-98.0) fL MCH 31.7 (27.0-33.0) pg MCHC 34.2 (31.0-35.0) g/dl RDW 13.8 (11.0-16.0) % Plt Count 273 (160-400) X10*3/uL MPV 9.2 L (9.4-12.3) fL Immature Gran % (Auto) 0.5 H (0.0-0.4) % Neut % (Auto) 59.7 (45-73) % Lymph % (Auto) 31.5 (20-40) % Clark % (Auto) 6.6 (2-11) % Eos % (Auto) 1.2 (0-4) % Baso % (Auto) 0.5 (0-2) % Lymph # (Auto) 2.6 (1.2-4.9) X10*3/uL Clark # (Auto) 0.6 (0.1-1.2) X10*3/uL Eos # (Auto) 0.1 (0.0-0.4) X10*3/uL Baso # (Auto) 0.0 (0.0-0.2) X10*3/uL Abs Immat Gran (auto) 0.04 H (0.00-0.03) X10*3/uL Absolute Neuts (auto) 4.9 (2.0-8.3) x10*3/uL Absolute Nucleated RBC 0.000 (0.0-0.012) X10*3/uL Nucleated RBC % (auto) 0.0 (0.0-0.2) /100WBC PT 10.4 L (10.9-12.4) SEC INR 0.9 (0.9-1.1) Sodium 140 (135-145) mmol/L Potassium 3.9 (3.3-5.1) mmol/L Chloride 106 (96-108) mmol/L Carbon Dioxide 28 (22-29) mmol/L Anion Gap 10 L (12-20) BUN 9 (9-16) mg/dL Creatinine 0.70 (0.5-1.4) mg/dL Estim Creat Clear Calc 97.0 Estimated GFR > 60 Random Glucose 110 (60-115) mg/dL Calcium 9.3 (8.4-10.2) mg/dL Magnesium 2.0 (1.6-2.6) mg/dL Total Bilirubin 0.1 (0.0-1.0) mg/dL Direct Bilirubin < 0.2 (0.0-0.5) mg/dL AST 16 (5-31) U/L ALT 14 (0-31) U/L Alkaline Phosphatase 49 (39-117) U/L Troponin I High Sens < 2.7 (<3.5-17.0) ng/L Total Protein 7.3 (6.5-8.0) g/dL Albumin 4.0 (3.5-5.0) g/dL Influenza Type A (PCR) NEGATIVE (Negative) Influenza Type B (PCR) NEGATIVE (Negative) RSV RNA Qual (PCR) NEGATIVE (Negative) SARS-CoV-2 RNA (RT-PCR) NEGATIVE (Negative) Independent Interpretation I performed an independent interpretation of an: EKG and Plain X-Ray (normal ) Interpretation: Rate: 89 Rhythm: NSR [place]: normal Normal P waves. Normal SUE. Normal QRS complex. ST T wave : normal no MICKI qTC: 406 prior studies: no acute ischemia The study has been interpreted contemporaneously by me. . Radiology Impression Discussion of test interpretation with radiology: I have reviewed the radiologist's reading. External Record Review External record reviewed: Outpatient record Prescription Management I considered prescription management with: Other Discharge Plan Discharge Clinical Impression: Atypical chest pain, Acute costochondritis Patient Disposition: Home, Self-Care Instructions: Chest Pain (ED), Costochondritis (ED) Additional Instructions: return for worsening symptoms or concerns monitor your breathing and pain. continue your tramadol with the muscle relaxer as long as you do not feel dizzy. Rest and stay hydrated. labs reassuring along with EKG and your chest xray no covid, flu, rsv follow up with your doctor as needed Prescriptions: New lidocaine 5 % adhesive patch,medicated 1 patch topical DAILY Qty: 30 0RF Rx Instructions: leave on most painful area for up to 12 hrs diazepam [Valium] 5 mg tablet 5 mg PO BID PRN (Reason: muscle spasm) Qty: 10 0RF Rx Instructions: partial fill is okay No Action albuterol sulfate 90 mcg/actuation HFA aerosol inhaler 2 puff inhalation Q6H PRN (Reason: shortness of breath or wheezing) Qty: 8.5 0RF tramadol 50 mg tablet 50 mg PO Q8H PRN (Reason: pain) Qty: 14 0RF baclofen 20 mg tablet 20 mg PO TID gabapentin 600 mg tablet 800 mg PO TID lorazepam 1 mg tablet 1 mg PO DAILY loratadine 10 mg capsule 10 mg PO DAILY famotidine 40 mg tablet 40 mg PO BEDTIME lactulose 10 gram/15 mL solution 10 g PO DAILY Elmiron 100 mg capsule 100 mg PO .COMPLEX Qty: 90 2RF Rx Instructions: 100 mg orally take 2 tabs in the morning, and one tab at night; mirtazapine 15 mg tablet 15 mg PO BEDTIME bupropion HCl 150 mg tablet extended release 24 hr 150 mg PO QAM hydrochlorothiazide 25 mg tablet 25 mg PO QAM trazodone 50 mg tablet 50 mg PO BEDTIME PRN (Reason: insomnia) pantoprazole 40 mg tablet,delayed release (DR/EC) 40 mg PO QAM hydroxyzine HCl 25 mg tablet 25 mg PO Q12H topiramate 25 mg tablet 25 mg PO DAILY ibuprofen 800 mg tablet 800 mg PO Q8H PRN (Reason: moderate pain) Print Language: Maltese
[2024-04-12 10:05] LABS: MANUAL DIFF FLAG NO
[2024-04-12 10:07] LABS: Basophils Percent Auto 0.5 % (0-2); Eosinophils Absolute Auto 0.1 X10*3/uL (0.0-0.4); Eosinophils Percent Auto 1.2 % (0-4); Hematocrit 35.4 % (37.0-47.0); Hemoglobin 12.1 g/dl (12.0-16.0); Imm Gran Abs Auto 0.04 X10*3/uL (0.00-0.03); Imm Gran Pct Auto 0.5 % (0.0-0.4); Lymphocytes Absolute Auto 2.6 X10*3/uL (1.2-4.9); Lymphocytes Percent Auto 31.5 % (20-40); Mean Corpuscular HGB Conc 34.2 g/dl (31.0-35.0); Mean Corpuscular Hemoglobin 31.7 pg (27.0-33.0); Mean Corpuscular Volume 92.7 fL (80.0-98.0); Mean Platelet Volume 9.2 fL (9.4-12.3); Monocytes Absolute Auto 0.6 X10*3/uL (0.1-1.2); Monocytes Percent Auto 6.6 % (2-11); Neutrophils Absolute Auto 4.9 x10*3/uL (2.0-8.3); Neutrophils Percent Auto 59.7 % (45-73); Platelet Count 273 X10*3/uL (160-400); Red Blood Count 3.82 X10*6/uL (4.20-5.50); Red Cell Distribution Width 13.8 % (11.0-16.0); White Blood Count 8.3 X10*3/uL (4.8-10.8)
[2024-04-12 10:13] LABS: INTERNATIONAL NORM RATIO 0.9 (0.9-1.1); Prothrombin Time 10.4 SEC (10.9-12.4)
[2024-04-12 10:25] LABS: Alanine Aminotransferase 14 U/L (0-31); Anion Gap 10 (12-20); Aspartate Amino Transferase 16 U/L (5-31); Bilirubin Direct < 0.2 mg/dL (0.0-0.5); Bilirubin Total 0.1 mg/dL (0.0-1.0); Blood Urea Nitrogen 9 mg/dL (9-16); Calcium 9.3 mg/dL (8.4-10.2); Carbon Dioxide 28 mmol/L (22-29); Chloride 106 mmol/L (96-108); Estimated Glomerular Filt Rate > 60; Glucose Random 110 mg/dL (60-115); Potassium 3.9 mmol/L (3.3-5.1); Sodium 140 mmol/L (135-145); Total Protein 7.3 g/dL (6.5-8.0)
[2024-04-12 10:35] LABS: Troponin-I High Sensitivity < 2.7 ng/L (<3.5-17.0)
[2024-04-12 10:48] LABS: Influenza A PCR NEGATIVE (Negative); Influenza B PCR NEGATIVE (Negative); Resp Syncy Virus RNA Qual PCR NEGATIVE (Negative); SARS COV2 PCR INHOUSE NEGATIVE (Negative)
[2024-04-12 12:42] LABS: Alkaline Phosphatase 49 U/L (39-117)
[2024-04-12 13:24] VITALS: BP 139/82; PULSE 90; RESP 18; TEMP 36.7; O2SAT 99
== END 2024-04-12 13:24 | disposition home or self-care (01) ==
PROVIDERS: Emergency Provider Emergency Medicine; PCP Internal Medicine
DX: R07.89 Other chest pain (principal); M94.0 Chondrocostal junction syndrome [Tietze]; R06.02 Shortness of breath; Z03.818 Encounter for observation for suspected exposure to other biological agents ruled out; J45.909 Unspecified asthma, uncomplicated; F17.210 Nicotine dependence, cigarettes, uncomplicated; F12.90 Cannabis use, unspecified, uncomplicated; Z79.899 Other long term (current) drug therapy
CPT/HCPCS: 0241U; 36415; 71046; 80048; 80076; 83735; 84484; 85025; 85610; 93005; 99283

== ENCOUNTER → 2024-04-12 09:42 | Outpatient (BNV) | payer MEDICAID, SELFPAY | PROVIDERS: PCP Internal Medicine; Visit Provider Internal Medicine | DX: R94.31 Abnormal electrocardiogram [ECG] [EKG] (principal) | CPT/HCPCS: 93010 ==

== ENCOUNTER → 2024-04-12 09:55 | Outpatient (BNV) | payer MEDICAID, SELFPAY | PROVIDERS: PCP Internal Medicine; Visit Provider Radiology Diagnostic Radiology | DX: R07.9 Chest pain, unspecified (principal) | CPT/HCPCS: 71046 ==

== ENCOUNTER 2024-04-13 17:11 | Observation (INO) | payer MEDICAID, SELFPAY ==
--- NOTE | ~2024-04-13 | CT_ITS ---
CLINICAL HISTORY: aphasia CT head without contrast Comparison: CT/REG/ID - CT HEAD/BRAIN WO CON - 06/10/20 09:[address]/REG - BRAIN WO IV CONTRAST [id number] - 05/31/12 00:[address] - BRAIN WO IV CONTRAST [id number] - 07/06/11 00:00 EDT MR - MRI BRAIN O [id number] - 06/07/06 00:00 EST Findings: The prior imaging reports are not available for review. No intra-axial mass, midline shift, hydrocephalus, or acute hemorrhage. No significant atrophy-like change or white matter disease. There is no sinus or mastoid fluid. The orbits are within normal limits. There is no acute fracture. IMPRESSION: 1. No acute intracranial findings This document has been electronically signed by: Rhianna Lopez MD on 04/13/2024 17:53:47
--- NOTE | ~2024-04-13 | CT_ITS ---
CLINICAL HISTORY: aphasia CT angiography head and neck with contrast and CT venogram of the head. 3D Postprocessing. Comparison: CR/SR - NECK SOFT TISSUE [id number] - 09/08/18 23:26 EDT Findings: Evaluation is limited by the mildly delayed phase of contrast and venous contamination. Aortic arch and cervical great vessels are patent. No significant Atherosclerosis calcification of the carotid bulbs. Right dominant vertebral artery. The left vertebral artery arises directly from the aortic arch. Intracranial arteries are patent. No aneurysm, dissection, or occlusion. No abnormal intracranial enhancement. The visualized thyroid gland is unremarkable. No cervical mass or fluid collection. Lung apices clear. No acute fracture. No abnormal contrast filling defect of the dural venous sinuses. IMPRESSION: Patent head and neck CTA. No evidence of dural venous sinus thrombosis. This document has been electronically signed by: Rhianna Lopez MD on 04/13/2024 19:07:22
--- NOTE | ~2024-04-13 | MR_ITS ---
CLINICAL HISTORY: slurred speech MR Brain without gadolinium Comparison: CT/SR - CT HEAD FOR STROKE - 04/13/24 17:26 EST MR - MRI BRAIN WWO [id number] - 06/07/06 00:00 EST Findings: No restricted diffusion. No intracranial mass or hemorrhage. No midline shift. No hydrocephalus. Vascular flow voids are intact. Orbital contents are unremarkable. The sinuses and mastoid air cells are clear. No focal bone lesion. IMPRESSION: No acute findings. This document has been electronically signed by: Irene Costa MD on 04/14/2024 13:23:29
--- NOTE | 2024-04-13 17:18 | ECG_ITS ---
Test Reason : ?STROKE Blood Pressure : */* mmHG Vent. Rate : 96 BPM Atrial Rate : 96 BPM P-R Int : 154 ms QRS Dur : 92 ms QT Int : 368 ms P-R-T Axes : 65 46 42 degrees QTcB Int : 464 ms Normal sinus rhythm Nonspecific ST abnormality Abnormal ECG When compared with ECG of 12-Apr-2024 09:45, QT has lengthened Nonspecific ST and T wave abnormality present Referred By: Thuy Duffy Electronically Signed By: NIRMAL ÁLVAREZ
[2024-04-13 17:24] LABS: Prothrombin Time Whole Bld POC 11.4 sec (11.1-13.5)
[2024-04-13 17:25] LABS: Glucose, Whole Blood 146 mg/dL (60-115)
[2024-04-13 17:26] VITALS: BP 137/84; PULSE 114; O2SAT 97; BMI 28.7
--- NOTE | 2024-04-13 17:32 | ED_ITS ---
HPI - Neuro Symptoms/Deficit General Chief Complaint: Stroke Stated Complaint: SOB, ANXIETY? PER EMS Time Seen by Provider: 04/13/24 17:17 Source: patient, EMS and old records reviewed Mode of arrival: EMS Limitations: no limitations History of Present Illness ED Provider: TERESA ALMONTE Narrative: 48 yo female with PMH Of ovarian cyst, fibromyalgia, migraines, anxiety, chronic pain here yesterday with costochondritis work up was given valium for pain now returns with c/o taking the first dose at 2pm then taking a nap she woke up with very dry mouth, states it makes it hard to talk and then had a hard time breathing. She takes ativan at baseline. She called her daughter with her symptoms and they called 911. She told EMS she had a migraine but denies this on arrival. Onset (ago): hour(s) (woke up with symptoms) Last Observed Normal: 14:00 Timing confirmed by: family member Location: speech History of same: No Severity: mild Relieving factors: none Exacerbating factors: none Context: change in medication On Anticoagulants: No Associated symptoms: denies other symptoms Treatments Prior to Arrival: none Related Data Home Medications ?Medication ?Instructions ?Recorded ?Confirmed loratadine 10 mg capsule 10 mg PO DAILY 02/20/20 03/26/24 baclofen 20 mg tablet 20 mg PO TID 01/06/21 03/26/24 lactulose 10 gram/15 mL oral 10 g PO DAILY 02/09/21 03/26/24 solution famotidine 40 mg tablet 40 mg PO BEDTIME 01/27/22 03/26/24 gabapentin 600 mg tablet 800 mg PO TID Pain 01/27/22 03/26/24 lorazepam 1 mg tablet 1 mg PO DAILY Anxiety 01/27/22 03/26/24 topiramate 25 mg tablet 25 mg PO DAILY 02/21/23 03/26/24 bupropion HCl 150 mg 24 hr tablet, 150 mg PO QAM 10/19/23 03/26/24 extended release hydrochlorothiazide 25 mg tablet 25 mg PO QAM 10/19/23 03/26/24 hydroxyzine HCl 25 mg tablet 25 mg PO Q12H 10/19/23 03/26/24 mirtazapine 15 mg tablet 15 mg PO BEDTIME 10/19/23 03/26/24 pantoprazole 40 mg tablet,delayed 40 mg PO QAM 10/19/23 03/26/24 release trazodone 50 mg tablet 50 mg PO BEDTIME PRN insomnia 10/19/23 03/26/24 ibuprofen 800 mg tablet 800 mg PO Q8H PRN moderate pain 01/18/24 03/26/24 Previous Rx's ?Medication ?Instructions ?Recorded albuterol sulfate 90 mcg/actuation 2 puff inhalation Q6H PRN 11/14/20 aerosol inhaler shortness of breath or wheezing #8.5 grams tramadol 50 mg tablet 50 mg PO Q8H PRN pain #14 tabs 03/24/21 pentosan polysulfate sodium 100 mg 100 mg PO .COMPLEX #90 caps 08/01/23 capsule (Elmiron) diazepam 5 mg tablet (Valium) 5 mg PO BID PRN muscle spasm #10 04/12/24 tabs lidocaine 5 % topical patch 1 patch topical DAILY #30 ea 04/12/24 Allergies Allergy/AdvReac Type Severity Reaction Status Date / Time No Known Allergies Allergy Verified 04/13/24 17:28 Review of Systems 2 Review of Systems: Constitutional : No Fever, No Chills, No Fatigue ENT/Mouth : No sore throat, No Rhinorrhea Eyes: No Eye Pain, No Swelling, No Redness Cardiovascular : No Chest Pain, No SOB, No Dyspnea on Exertion Respiratory : No Cough, No Sputum Gastrointestinal : No Nausea, No Vomiting, No Diarrhea, No abdominal Pain Genitourinary : No Dysuria, No Urinary Frequency, No Hematuria, Musculoskeletal : No joint pain, No Myalgias, No Joint Swelling Skin : No Skin Lesions, No rash Neuro : No Weakness, No Numbness, No Dizziness, no Headache Psych : pos Anxiety/Panic, No Depression All other systems reviewed and are negative [facility] Past Medical History Attestation statement: The following information was validated with the patient. Source: old records reviewed Medical History Constipation HTN (hypertension) Abnormal uterine bleeding (AUB) Strain of gastrocnemius tendon of right lower extremity Urinary frequency Bladder pain Interstitial cystitis Vaginal discharge Microscopic hematuria Chest pain Cystitis Seasonal allergies Anxiety and depression Chronic pain syndrome Spondylosis of lumbar spine Disc degeneration, lumbar Abdominal mass, left lower quadrant COVID-19 COVID-19 Complex ovarian cyst Bacterial vaginosis Stress incontinence Female pelvic pain Breast lump Well woman exam Depression Fibromyalgia Arthritis Migraines Asthma Surgical History Hx of bladder endoscopy History of salpingo-oophorectomy History of bilateral tubal ligation H/O LEEP History of carpal tunnel release Family History Family History Sister History of breast cancer, Onset Age: 52 Brother History of bone cancer History of blood disorder History of brain cancer Paternal Aunt History of cancer of uterus Mother Hx of cancer of lung Sister Hx of hysterectomy Family/Other Hx of hysterectomy Family/Other Hx of hysterectomy Daughter Hx of thyroid cancer Social History Social History Alcohol intake: never Patient Tobacco Use Status: Current everyday Tobacco user Tobacco use type: Cigarette Cigarettes Per Day: 8 Smoked in Last 30 Days: Yes Use of substances other than those prescribed or required for medical reasons: No Substance Use Type: Marijuana Advance Directives: No Advance Directives Information Provided: No Do you have a plan to hurt others: No Plan Sexual orientation: Straight/Heterosexual Gender identity: Female Physical Exam 2 Vital Signs: Vital Signs: Last Vital Signs Temp 97.8 F 04/13/24 18:23 Pulse 91 04/13/24 18:23 Resp 14 04/13/24 18:23 BP 143/88 H 04/13/24 18:23 Pulse Ox 99 04/13/24 18:23 O2 Del Method Room Air 04/13/24 18:23 BMI result Body Mass Index 28.7 Appearance: Alert. Oriented X3. No acute distress. Eyes: Pupils equal, round and reactive to light. ENT: Pharynx dry MM Neck: Normal inspection. Neck supple. CVS: Normal heart rate and rhythm. Pulses normal. Respiratory: No respiratory distress. Breath sounds normal. Abdomen: Soft and nontender. Skin: Skin warm and dry. Normal skin color. Normal skin turgor. Extremities: No lower extremity edema. No calf ttp Neuro: Oriented X 3. No motor deficit. No sensory deficit. CN2-12 intact no drift, she is shaking all over, she has mild to mod dysarthria on arrival Course Course Course Narrative: repeat exam 545pm no dysarthria no noted deficits states her mouth is dry, speech was stuttering then she strung together a completely fluent sentence and it improved Reevaluation(s) Reevaluation #1: speech back to baseline Medical Decision Making Medical Decision Making [facility] Narrative: 48 yo female with PMH Of ovarian cyst, fibromyalgia, migraines, anxiety, chronic pain here with c/o waking up [employer] feeling shaky, weakness, dry mouth and her speech is slurred. States this started after taking diazepam. On arrival she had some slurred speech but it was intermittent and not consistent. No headaches, no trauma. Sent for labs, given water, CTA for LVO though low suspicion. Her speech fully resolved rapidly which is odd for side effect of valium - could be TIA Differential Diagnosis Differential Diagnoses: The differential diagnosis associated with the presentation includes complex migraine, adverse reaction to medication, TIA Admission/Observation Consideration of admission/observation: Escalation of care including admission/observation considered admit for TIA Consult Healthcare Provider Management of the patient was discussed with: Hospitalist (will admit) Lab Data [facility] Lab Attestation statement: I reviewed the patient's lab results. 04/13/24 18:17 04/13/24 18:17 Labs: Lab Results 04/13/24 04/13/24 04/13/24 Range/Units 17:19 18:17 18:20 WBC 8.1 (4.8-10.8) X10*3/uL RBC 3.90 L (4.20-5.50) X10*6/uL Hgb 12.3 (12.0-16.0) g/dl Hct 36.2 L (37.0-47.0) % MCV 92.8 (80.0-98.0) fL MCH 31.5 (27.0-33.0) pg MCHC 34.0 (31.0-35.0) g/dl RDW 14.0 (11.0-16.0) % Plt Count 285 (160-400) X10*3/uL MPV 9.2 L (9.4-12.3) fL Immature Gran % (Auto) 0.6 H (0.0-0.4) % Neut % (Auto) 61.1 (45-73) % Lymph % (Auto) 28.1 (20-40) % [place] % (Auto) 8.2 (2-11) % Eos % (Auto) 1.6 (0-4) % Baso % (Auto) 0.4 (0-2) % Lymph # (Auto) 2.3 (1.2-4.9) X10*3/uL [place] # (Auto) 0.7 (0.1-1.2) X10*3/uL Eos # (Auto) 0.1 (0.0-0.4) X10*3/uL Baso # (Auto) 0.0 (0.0-0.2) X10*3/uL Abs Immat Gran (auto) 0.05 H (0.00-0.03) X10*3/uL Absolute Neuts (auto) 4.9 (2.0-8.3) x10*3/uL Absolute Nucleated RBC 0.000 (0.0-0.012) X10*3/uL Nucleated RBC % (auto) 0.0 (0.0-0.2) /100WBC PT 10.5 L (10.9-12.4) SEC Whole Blood PT 11.4 (11.1-13.5) sec INR 0.9 (0.9-1.1) Whole Blood INR 1.0 (0.9-1.1) Sodium 141 (135-145) mmol/L Potassium 3.2 L (3.3-5.1) mmol/L Chloride 105 (96-108) mmol/L Carbon Dioxide 27 (22-29) mmol/L Anion Gap 12 (12-20) BUN 7 L (9-16) mg/dL Creatinine 0.74 (0.5-1.4) mg/dL Estim Creat Clear Calc 90.6 Estimated GFR > 60 POC Glucose 146 H (60-115) mg/dL Random Glucose 105 (60-115) mg/dL Calcium 9.4 (8.4-10.2) mg/dL Magnesium 2.1 (1.6-2.6) mg/dL Total Bilirubin 0.1 (0.0-1.0) mg/dL Direct Bilirubin < 0.2 (0.0-0.5) mg/dL AST 19 (5-31) U/L ALT 16 (0-31) U/L Troponin I High Sens < 2.7 (<3.5-17.0) ng/L Total Protein 7.5 (6.5-8.0) g/dL Albumin 4.1 (3.5-5.0) g/dL Lipase 31 (8-78) U/L Urine Color Yellow Urine Appearance Clear Urine pH 7.0 (5.0-9.0) Ur Specific [place] 1.015 (1.005-1.025) Urine Protein Negative (Neg-Trace) mg/dL Urine Glucose (UA) Negative (Negative) mg/dL Urine Ketones Negative (Negative) mg/dL Urine Blood Large (3+) H (Negative) Urine Nitrite Negative (Negative) Ur Leukocyte Esterase Trace H (Negative) Urine RBC >20 H (0-2) /HPF Urine WBC 0-5 (0-5) /HPF Ur Squamous Epith Cells 0-2 (0-2) /HPF Urine Bacteria None Seen (None Seen) Hyaline Casts 0-2 (0-2) /LPF Urine Opiates Screen Not Detected (Not Detect) Ur Buprenorphine Scrn Not Detected (Not Detect) ng/mL Ur Oxycodone Screen Not Detected (Not Detect) ng/mL Urine Methadone Screen Not Detected (Not Detect) ng/mL Urine Fentanyl Screen Not Detected (Not Detect) Ur Barbiturates Screen Not Detected (Not Detect) Ur Phencyclidine Scrn Not Detected (Not Detect) Ur Amphetamines Screen Not Detected (Not Detect) U Benzodiazepines Scrn Not Detected (Not Detect) Urine Cocaine Screen Not Detected (Not Detect) U Marijuana (THC) Screen Not Detected (Not Detect) Ethyl Alcohol < 10 mg/dL Influenza Type A (PCR) NEGATIVE (Negative) Influenza Type B (PCR) NEGATIVE (Negative) RSV RNA Qual (PCR) NEGATIVE (Negative) SARS-CoV-2 RNA (RT-PCR) NEGATIVE (Negative) Independent Interpretation I performed an independent interpretation of an: EKG and CT Scan (no ICH, no LVO) Interpretation: Rate: 96 Rhythm: NSR [place]: normal Normal P waves. Normal SUE. Normal QRS complex. ST T wave : normal no MICKI qTC: 464 prior studies: no acute ischemia The study has been interpreted contemporaneously by me. . Radiology Impression Discussion of test interpretation with radiology: I have reviewed the radiologist's reading. Independent Historian Clinical information obtained from an independent historian. History obtained from or confirmed by: EMS and Other (daughter) External Record Review External record reviewed: Inpatient record and Outpatient record NIH Stroke Scale Internal: Initial- Upon Arrival Level of Consciousness: Alert Level of Consciousness Questions: Answers both questions correctly Level of Consciousness Commands: Performs both tasks correctly Best Gaze: Normal Visual: No visual loss Facial Palsy: Normal Motor Arm (Right): No drift Motor Arm (Left): No drift Motor Leg (Right): No drift Motor Leg (Left): No drift Limb Ataxia: Absent Sensory: Normal Best Language: No aphasia Dysarthia: Mild to moderate dysarthria Extinction and Inattention: No abnormality Score: 1 Critical Care Time Critical Care Time Critical Care Time: Yes Total Critical Care Time: 35 Attestation: family discussion, review of records, stroke protocol I attest to this time spent taking care of the patient Discharge Plan Discharge Clinical Impression: Dysarthria, Acute hypokalemia Patient Disposition: Admitted As Inpatient Prescriptions: No Action albuterol sulfate 90 mcg/actuation HFA aerosol inhaler 2 puff inhalation Q6H PRN (Reason: shortness of breath or wheezing) Qty: 8.5 0RF tramadol 50 mg tablet 50 mg PO Q8H PRN (Reason: pain) Qty: 14 0RF lidocaine 5 % adhesive patch,medicated 1 patch topical DAILY Qty: 30 0RF Rx Instructions: leave on most painful area for up to 12 hrs diazepam [Valium] 5 mg tablet 5 mg PO BID PRN (Reason: muscle spasm) Qty: 10 0RF Rx Instructions: partial fill is okay baclofen 20 mg tablet 20 mg PO TID gabapentin 600 mg tablet 800 mg PO TID lorazepam 1 mg tablet 1 mg PO DAILY loratadine 10 mg capsule 10 mg PO DAILY famotidine 40 mg tablet 40 mg PO BEDTIME lactulose 10 gram/15 mL solution 10 g PO DAILY Elmiron 100 mg capsule 100 mg PO .COMPLEX Qty: 90 2RF Rx Instructions: 100 mg orally take 2 tabs in the morning, and one tab at night; mirtazapine 15 mg tablet 15 mg PO BEDTIME bupropion HCl 150 mg tablet extended release 24 hr 150 mg PO QAM hydrochlorothiazide 25 mg tablet 25 mg PO QAM trazodone 50 mg tablet 50 mg PO BEDTIME PRN (Reason: insomnia) pantoprazole 40 mg tablet,delayed release (DR/EC) 40 mg PO QAM hydroxyzine HCl 25 mg tablet 25 mg PO Q12H topiramate 25 mg tablet 25 mg PO DAILY ibuprofen 800 mg tablet 800 mg PO Q8H PRN (Reason: moderate pain) Print Language: Romanian
--- NOTE | 2024-04-13 18:19 | PC.NURSE ---
patient's speech is clear for the last hour, no defects noted. daughter claimed that she took the med Valium as prescribed by Dr Moura last night for inflammation in her chest. She took this mediation and fell asleep and woke up to have strange speech and daughter came to her home and found her speech to be off and called 911.
[2024-04-13 18:23] VITALS: BP 143/88; PULSE 91; RESP 14; TEMP 36.6; O2SAT 99
[2024-04-13 18:25] LABS: MANUAL DIFF FLAG NO
[2024-04-13 18:27] LABS: Basophils Percent Auto 0.4 % (0-2); Eosinophils Absolute Auto 0.1 X10*3/uL (0.0-0.4); Eosinophils Percent Auto 1.6 % (0-4); Hematocrit 36.2 % (37.0-47.0); Hemoglobin 12.3 g/dl (12.0-16.0); Imm Gran Abs Auto 0.05 X10*3/uL (0.00-0.03); Imm Gran Pct Auto 0.6 % (0.0-0.4); Lymphocytes Absolute Auto 2.3 X10*3/uL (1.2-4.9); Lymphocytes Percent Auto 28.1 % (20-40); Mean Corpuscular Hemoglobin 31.5 pg (27.0-33.0); Mean Corpuscular Volume 92.8 fL (80.0-98.0); Mean Platelet Volume 9.2 fL (9.4-12.3); Monocytes Absolute Auto 0.7 X10*3/uL (0.1-1.2); Monocytes Percent Auto 8.2 % (2-11); Neutrophils Absolute Auto 4.9 x10*3/uL (2.0-8.3); Neutrophils Percent Auto 61.1 % (45-73); Platelet Count 285 X10*3/uL (160-400); White Blood Count 8.1 X10*3/uL (4.8-10.8)
[2024-04-13 18:31] LABS: Appearance Urine Clear; Color Urine Yellow; Glucose Urine UA Negative (Negative); Leukocyte Esterase Urine Trace (Negative); Nitrite Urine Negative (Negative); Specific Gravity - Urine 1.015 (1.005-1.025); UMIC TRIGGER UACC YES; Urine Blood Large (3+) (Negative); Urine Ketones Negative (Negative); Urine Protein Negative (Neg-Trace)
[2024-04-13 18:32] LABS: INTERNATIONAL NORM RATIO 0.9 (0.9-1.1); Prothrombin Time 10.5 SEC (10.9-12.4)
[2024-04-13 18:36] LABS: Bacteria Urine None Seen (None Seen); Hyaline Casts Urine 0-2 /LPF (0-2); RBC Urine >20 /HPF (0-2); Squamous Epithelial Cell Urine 0-2 /HPF (0-2); WBC Urine 0-5 /HPF (0-5)
[2024-04-13 18:40] LABS: Ethanol < 10 mg/dL
[2024-04-13 18:41] LABS: Amphetamine Screen Urine Not Detected (Not Detect); Barbiturates, Urine Not Detected (Not Detect); Benzodiazepines Screen Urine Not Detected (Not Detect); Buprenorphine Scr Not Detected (Not Detect); Cannabinoid Screen Urine Not Detected (Not Detect); Cocaine Screen Urine Not Detected (Not Detect); Fentanyl, urine Not Detected (Not Detect); Methadone Screen, Urine Not Detected (Not Detect); Opiate Screen Urine Not Detected (Not Detect); Oxycodone Screen Urine Not Detected (Not Detect); Phencyclidine Screen Urine Not Detected (Not Detect)
[2024-04-13 18:53] LABS: Alanine Aminotransferase 16 U/L (0-31); Albumin Level 4.1 g/dL (3.5-5.0); Anion Gap 12 (12-20); Aspartate Amino Transferase 19 U/L (5-31); Bilirubin Direct < 0.2 mg/dL (0.0-0.5); Bilirubin Total 0.1 mg/dL (0.0-1.0); Blood Urea Nitrogen 7 mg/dL (9-16); Calcium 9.4 mg/dL (8.4-10.2); Carbon Dioxide 27 mmol/L (22-29); Chloride 105 mmol/L (96-108); Creatinine Clr Calc Pharmacy 90.6; Estimated Glomerular Filt Rate > 60; Glucose Random 105 mg/dL (60-115); Lipase 31 U/L (8-78); Magnesium 2.1 mg/dL (1.6-2.6); Potassium 3.2 mmol/L (3.3-5.1); Sodium 141 mmol/L (135-145); Total Protein 7.5 g/dL (6.5-8.0); Troponin-I High Sensitivity < 2.7 ng/L (<3.5-17.0)
[2024-04-13 19:05] LABS: Influenza A PCR NEGATIVE (Negative); Influenza B PCR NEGATIVE (Negative); Resp Syncy Virus RNA Qual PCR NEGATIVE (Negative); SARS COV2 PCR INHOUSE NEGATIVE (Negative)
--- NOTE | 2024-04-13 19:24 | PM.IMHP ---
History of Present Illness Date of Service: 04/13/24 Attending physician on admission: Nader Anderson Chief Complaint: Slurred speech Pt is a 48-year-old female with a PMH significant for?asthma, HTN, migraines, chronic pain, GERD, and anxiety who presents to the ED for evaluation of slurred speech. Pt was seen in the ED yesterday for atypical chest pain x1 week and was diagnosed with costochondritis and sent home with a prescription for Valium. Pt reports filled the prescription earlier today?and took her 1st dose at 14:00 this afternoon. Pt then took a nap and when she she awoke found her hands were shaking, she had very dry mouth, and found it difficult to speak or breathe. Called EMS who noted pt had slurred speech upon examination. On initial arrival to the ED pt had intermittent slurred speech that soon fully resolved. Pt continues to complain of right-sided chest pain and pressure that has been ongoing for the past week. Reports some difficulty walking and that she feels ?unbalanced? when ambulating. Also complains of perioral numbness, as well as intermittent palpitations, fatigue, and DEMARCO. Pt denies headache or acute vision changes. No numbness or tingling in extremities. Denies hemiparesis. Currently smokes around half a pack of cigarettes daily. In the ED pt with elevated HR of 91 and elevated BP of 143/88. Labs were significant for potassium of 3.2, otherwise grossly unremarkable and baseline for pt. No leukocytosis. Stable H&H. Renal and hepatic function WNL. Troponin negative. UA negative for UTI. Tested negative for flu, COVID, RSV. CT?of head negative for acute intracranial findings. CTA of head and neck negative for acute findings. EKG demonstrated normal sinus rhythm without significant ischemic changes. Pt was treated with potassium chloride and aspirin. Pt will be admitted to the hospital under observation for treatment and further evaluation acute slurred speech concerning for TIA versus iatrogenic from Valium. Review of Systems Review of Systems: Negative except for that which is stated in the HPI. [facility] Medical History Constipation HTN (hypertension) Abnormal uterine bleeding (AUB) Strain of gastrocnemius tendon of right lower extremity Urinary frequency Bladder pain Interstitial cystitis Vaginal discharge Microscopic hematuria Chest pain Cystitis Seasonal allergies Anxiety and depression Chronic pain syndrome Spondylosis of lumbar spine Disc degeneration, lumbar Abdominal mass, left lower quadrant COVID-19 COVID-19 Complex ovarian cyst Bacterial vaginosis Stress incontinence Female pelvic pain Breast lump Well woman exam Depression Fibromyalgia Arthritis Migraines Asthma Family History Sister History of breast cancer, Onset Age: 52 Brother History of bone cancer History of blood disorder History of brain cancer Paternal Aunt History of cancer of uterus Mother Hx of cancer of lung Sister Hx of hysterectomy Family/Other Hx of hysterectomy Family/Other Hx of hysterectomy Daughter Hx of thyroid cancer Surgical History Hx of bladder endoscopy History of salpingo-oophorectomy History of bilateral tubal ligation H/O LEEP History of carpal tunnel release Social History Alcohol intake: never Patient Tobacco Use Status: Current everyday Tobacco user Tobacco use type: Cigarette Cigarettes Per Day: 8 Smoked in Last 30 Days: Yes Use of substances other than those prescribed or required for medical reasons: No Substance Use Type: Marijuana Advance Directives: No Advance Directives Information Provided: No Do you have a plan to hurt others: No Plan Sexual orientation: Straight/Heterosexual Gender identity: Female Meds Allergies Allergy/AdvReac Type Severity Reaction Status Date / Time No Known Allergies Allergy Verified 04/13/24 17:28 Home Medications ?Medication ?Instructions ?Recorded ?Confirmed ?Last Taken ?Type loratadine 10 mg capsule 10 mg PO DAILY 02/20/20 03/26/24 Unknown History baclofen 20 mg tablet 20 mg PO TID 01/06/21 03/26/24 Unknown History lactulose 10 gram/15 mL oral 10 g PO DAILY 02/09/21 03/26/24 Unknown History solution famotidine 40 mg tablet 40 mg PO BEDTIME 01/27/22 03/26/24 Unknown History gabapentin 600 mg tablet 800 mg PO TID Pain 01/27/22 03/26/24 Unknown History lorazepam 1 mg tablet 1 mg PO DAILY Anxiety 01/27/22 03/26/24 Unknown History topiramate 25 mg tablet 25 mg PO DAILY 02/21/23 03/26/24 Unknown History bupropion HCl 150 mg 24 hr tablet, 150 mg PO QAM 10/19/23 03/26/24 Unknown History extended release hydrochlorothiazide 25 mg tablet 25 mg PO QAM 10/19/23 03/26/24 03/26/24 07:30 History hydroxyzine HCl 25 mg tablet 25 mg PO Q12H 10/19/23 03/26/24 Unknown History mirtazapine 15 mg tablet 15 mg PO BEDTIME 10/19/23 03/26/24 Unknown History pantoprazole 40 mg tablet,delayed 40 mg PO QAM 10/19/23 03/26/24 Unknown History release trazodone 50 mg tablet 50 mg PO BEDTIME PRN insomnia 10/19/23 03/26/24 Unknown History ibuprofen 800 mg tablet 800 mg PO Q8H PRN moderate pain 01/18/24 03/26/24 Unknown History betamethasone, augmented 0.05 % 1 appl topical BID 04/13/24 Unknown History topical ointment cyclobenzaprine 10 mg tablet 10 mg PO TID PRN muscle spasm 04/13/24 Unknown History nicotine 14 mg/24 hr daily 1 patch topical ONCE 04/13/24 Unknown History transdermal patch ziprasidone HCl 20 mg capsule 20 mg PO BID 04/13/24 Unknown History Physical Exam Vital Signs and Narrative: Vital Signs: Last Vital Signs Temp 97.8 F 04/13/24 18:23 Pulse 91 04/13/24 18:23 Resp 14 04/13/24 18:23 BP 143/88 H 04/13/24 18:23 Pulse Ox 99 04/13/24 18:23 O2 Del Method Room Air 04/13/24 18:23 BMI result Body Mass Index 28.7 General: AOx3, no acute distress Resp: CTA bilaterally CVS: S1, S2, RRR GI: +BS, NT, no distention Chest: Right-sided anteriror chest wall tenderness. Skin: Warm, dry Neuro: Cranial nerves II-XII grossly intact bilaterally. Motor grossly intact bilaterally. No focal deficits noted. Preserved and symmetric strength of upper and lower extremities bilaterally. Sensation to light touch intact of face, upper extremities, and lower extremities. Negative pronator drift. No facial droop or dysarthria noted. Extremities: No edema Psych: Appropriate affect Results Labs 04/13/24 18:17 04/13/24 18:17 Labs: Laboratory Results - last 24 hr 04/13/24 04/13/2425 17:19 18:17 18:20 MCV 92.8 MCH 31.5 MCHC 34.0 RDW 14.0 Plt Count 285 MPV 9.2 L Immature Gran % (Auto) 0.6 H Neut % (Auto) 61.1 Lymph % (Auto) 28.1 [place] % (Auto) 8.2 Eos % (Auto) 1.6 Baso % (Auto) 0.4 Lymph # (Auto) 2.3 [place] # (Auto) 0.7 Eos # (Auto) 0.1 Baso # (Auto) 0.0 Abs Immat Gran (auto) 0.05 H Absolute Neuts (auto) 4.9 Absolute Nucleated RBC 0.000 Nucleated RBC % (auto) 0.0 PT 10.5 L Whole Blood PT 11.4 INR 0.9 Whole Blood INR 1.0 Anion Gap 12 Estim Creat Clear Calc 90.6 Estimated GFR > 60 POC Glucose 146 H Random Glucose 105 Calcium 9.4 Magnesium 2.1 Total Bilirubin 0.1 Direct Bilirubin < 0.2 AST 19 ALT 16 Troponin I High Sens < 2.7 Total Protein 7.5 Albumin 4.1 Lipase 31 Urine Color Yellow Urine Appearance Clear Urine pH 7.0 Ur Specific [place] 1.015 Urine Protein Negative Urine Glucose (UA) Negative Urine Ketones Negative Urine Blood Large (3+) H Urine Nitrite Negative Ur Leukocyte Esterase Trace H Urine RBC >20 H Urine WBC 0-5 Ur Squamous Epith Cells 0-2 Urine Bacteria None Seen Hyaline Casts 0-2 Urine Opiates Screen Not Detected Ur Buprenorphine Scrn Not Detected Ur Oxycodone Screen Not Detected Urine Methadone Screen Not Detected Urine Fentanyl Screen Not Detected Ur Barbiturates Screen Not Detected Ur Phencyclidine Scrn Not Detected Ur Amphetamines Screen Not Detected U Benzodiazepines Scrn Not Detected Urine Cocaine Screen Not Detected U Marijuana (THC) Screen Not Detected Ethyl Alcohol < 10 Influenza Type A (PCR) NEGATIVE Influenza Type B (PCR) NEGATIVE RSV RNA Qual (PCR) NEGATIVE SARS-CoV-2 RNA (RT-PCR) NEGATIVE Assessment and Plan (1) Dysarthria: Status: Acute Plan Pt is a 48-year-old female with a PMH significant for?asthma, HTN, migraines, chronic pain, GERD, and anxiety who presents to the ED for evaluation of slurred speech. Pt will be admitted to the hospital under observation for treatment and further evaluation acute slurred speech concerning for TIA versus iatrogenic from Valium. Dysarthria Pt with slurred speech, perioral numbness and tingling after waking from nap, difficulty ambulating Pt previously had taken 1st dose of Valium Pt now back to baseline CT of head and CTA of head/neck negative for acute abnormalities Unclear etiology: TIA versus iatrogenic from Valium Pt given aspirin in the ED Will get MRI of head and brain Echocardiogram Lipid profile Neurology consult PT/OT evaluation Monitor on telemetry Acute costochondritis Right-sided, reproducible anterior chest pain x1 week Was seen and evaluated at ED yesterday Troponins negative yesterday, repeat troponin today negative EKG without ischemic changes Analgesics for pain management Acute hypokalemia, mild Potassium 3.2 at time of presentation Patient's supplemented potassium chloride in the ED Follow BMP HTN Hold antihypertensives for now due to permissive hypertension Asthma Not in acute exacerbation Continue home meds Peripheral neuropathy Continue gabapentin GERD Continue famotidine, pantoprazole Migraines Reports last migraine 2 months ago Continue topiramate Mood disorder Continue home mood stabilizers Full Code Attending:?Dr. Coulter DVT Prophylaxis: Lovenox Pt will be admitted to the hospital under observation for treatment and further evaluation of acute onset dysarthria concerning for TIA versus iatrogenic from Valium use. Quality Stroke Does the patient have a stroke diagnosis?: No Reason for No Anti-thrombotic by Day Two: Contraindicated (Pt back to baseline) VTE Prior VTE?: No VTE Risk Level:: Medical - moderate - high VTE Device Contraindication: Treatment Not Indicated VTE Drug Contraindication: N/A - Med Ordered
[2024-04-13 19:40] LABS: Alkaline Phosphatase 48 U/L (39-117)
[2024-04-13 20:07] VITALS: BP 149/82; PULSE 91; RESP 16; TEMP 36.7; O2SAT 98
[2024-04-13] MEDS: Aspirin 81 MG TAB.CHEW PO (20:11)
[2024-04-13] MEDS: Potassium Chloride ER 20 MEQ TAB.ER.PRT PO (20:46)
[2024-04-13 21:10] VITALS: BP 132/77; PULSE 86; RESP 20; TEMP 36.6; O2SAT 97
[2024-04-13 21:14] VITALS: BMI 25.8
--- NOTE | 2024-04-13 21:46 | PHA.MEDREC ---
Addendum entered by Jamrai Marx, [facility] 04/13/24 22:05: Med rec reviewed, unable to find fill history for diazepam via newspaper reporter or claims Original Note: Pharmacy Consult ? Medication Reconciliation Pharmacy has completed the medication reconciliation. Spoke with gumaro and she was able to confirm her medications. She confirmed she is taking the Diazepam 5mg tab still and usually doesn't get much relief when taking it but stated today she took one and took a nap and when she woke up from the nap she was very groggy and not feeling great and thinks it was caused by the Diazepam. She confirmed she still takes Hydroxyzine 25mg tabs as needed for anxiety but has not had to take it in a bit . She confirmed the Lorazepam and confirmed she is taking 1mg daily as needed for anxiety. She confirmed she took Motrin 800mg, Gabapentin 800mg and the Diazepam 5mg tab this morning and everything else was taken yesterday.
[2024-04-13] MEDS: Mirtazapine 15 MG TABLET PO (22:24)
[2024-04-13] MEDS: Ziprasidone 20 MG CAPSULE PO (22:24)
[2024-04-13] MEDS: Morphine Sulfate 2 MG/ML CARTRIDGE IVPUSH (22:27)
[2024-04-14] VITALS: BP 106/55; PULSE 91; RESP 18; TEMP 36.3; O2SAT 97
[2024-04-14 03:49] VITALS: BP 107/57; PULSE 88; RESP 16; TEMP 36.3; O2SAT 98
[2024-04-14 07:13] LABS: MANUAL DIFF FLAG NO
[2024-04-14 07:16] LABS: Basophils Percent Auto 0.4 % (0-2); Eosinophils Absolute Auto 0.1 X10*3/uL (0.0-0.4); Eosinophils Percent Auto 1.9 % (0-4); Hematocrit 35.3 % (37.0-47.0); Hemoglobin 12.1 g/dl (12.0-16.0); Imm Gran Abs Auto 0.04 X10*3/uL (0.00-0.03); Imm Gran Pct Auto 0.6 % (0.0-0.4); Lymphocytes Absolute Auto 1.9 X10*3/uL (1.2-4.9); Lymphocytes Percent Auto 25.9 % (20-40); Mean Corpuscular HGB Conc 34.3 g/dl (31.0-35.0); Mean Corpuscular Volume 93.4 fL (80.0-98.0); Mean Platelet Volume 9.7 fL (9.4-12.3); Monocytes Absolute Auto 0.5 X10*3/uL (0.1-1.2); Monocytes Percent Auto 7.4 % (2-11); Neutrophils Absolute Auto 4.6 x10*3/uL (2.0-8.3); Neutrophils Percent Auto 63.8 % (45-73); Platelet Count 276 X10*3/uL (160-400); Red Blood Count 3.78 X10*6/uL (4.20-5.50); Red Cell Distribution Width 14.2 % (11.0-16.0); White Blood Count 7.3 X10*3/uL (4.8-10.8)
[2024-04-14 07:31] LABS: Anion Gap 10 (12-20); Blood Urea Nitrogen 9 mg/dL (9-16); Calcium 8.8 mg/dL (8.4-10.2); Carbon Dioxide 27 mmol/L (22-29); Chloride 107 mmol/L (96-108); Cholesterol 175 mg/dL (<200); Creatinine Clr Calc Pharmacy 86.3; Estimated Glomerular Filt Rate > 60; Glucose Random 108 mg/dL (60-115); HDL Cholesterol 41 mg/dL (>40); LDL Cholesterol Calculated 121 mg/dL (<100); Potassium 3.5 mmol/L (3.3-5.1); Sodium 140 mmol/L (135-145); Triglycerides 68 mg/dL (<150)
[2024-04-14 07:39] LABS: Estimated Average Glucose 117 mg/dL; Hemoglobin A1C 116.1385 umol/L; Hemoglobin A1c % 5.7 % (<6.0); Total Hemoglobin (HGBA1C) 3004.4043 umol/L
[2024-04-14 08:00] VITALS: BP 107/61; PULSE 88; RESP 18; TEMP 36.6; O2SAT 96
[2024-04-14] MEDS: Aspirin Enteric Coated 81 MG TABLET.DR PO (08:10)
[2024-04-14] MEDS: Loratadine 10 MG TABLET PO (08:10)
[2024-04-14] MEDS: Ziprasidone 20 MG CAPSULE PO (08:10)
[2024-04-14] MEDS: Acetaminophen 325 MG TABLET 975 MG PO (08:11)
[2024-04-14 10:11] VITALS: BP 106/51; PULSE 96; O2SAT 95
--- NOTE | 2024-04-14 10:12 | MHC.CM.PN ---
Addendum entered by Mayra Mohamud 04/14/24 14:39: PT TO DC HOME TODAY WITH NO SERVICES Original Note: PT REPORTS SHE LIVES WITH HER S/O AND HAS DAILY [employer] SERVICES SHE HAS A [employer] AND NEBULIZER FOR DME SHE DOES NOT HAVE A HCP, PER DISCUSSION, DOCUMENT AND INFORMATION PROVIDED PCP: [facility] NOTICE DELIVERED DCP: HOME, RESUME [employer] VS WITH [facility] PT WILL ARRANGE TRANSPORT
[2024-04-14 11:33] VITALS: BP 106/51; PULSE 94; RESP 18; TEMP 36.4; O2SAT 96
[2024-04-14] MEDS: LORazepam 2 MG/ML VIAL 1 MG IVPUSH (12:20)
--- NOTE | 2024-04-14 12:41 | P.CNNE_ITS ---
History of Present Illness Data of Consult Service Date: 04/14/24 Primary Care Provider: Dory Wen MD HPI Reason for consult: Slurred speech 48 years old woman who was recently prescribed Valium. She said that she took Valium and when she woke up her mouth was very dry and she could not speak well and was shaky. She remember the event. Now she was feeling back to baseline. There was no associated arm or leg weakness or headache. Review of Systems 2 Review of Systems: No recent cold or flu-like illness PMFSH Past Medical History Medical History Constipation HTN (hypertension) Abnormal uterine bleeding (AUB) Strain of gastrocnemius tendon of right lower extremity Urinary frequency Bladder pain Interstitial cystitis Vaginal discharge Microscopic hematuria Chest pain Cystitis Seasonal allergies Anxiety and depression Chronic pain syndrome Spondylosis of lumbar spine Disc degeneration, lumbar Abdominal mass, left lower quadrant COVID-19 COVID-19 Complex ovarian cyst Bacterial vaginosis Stress incontinence Female pelvic pain Breast lump Well woman exam Depression Fibromyalgia Arthritis Migraines Asthma Family History Family History Sister History of breast cancer, Onset Age: 52 Brother History of bone cancer History of blood disorder History of brain cancer Paternal Aunt History of cancer of uterus Mother Hx of cancer of lung Sister Hx of hysterectomy Family/Other Hx of hysterectomy Family/Other Hx of hysterectomy Daughter Hx of thyroid cancer Surgical History Surgical History Hx of bladder endoscopy History of salpingo-oophorectomy History of bilateral tubal ligation H/O LEEP History of carpal tunnel release Social History Social History Household Members: Significant Other Housing: Apartment Do you presently have visiting nurse or other home services: Yes ([employer] daily) Alcohol intake: never Patient Tobacco Use Status: Current everyday Tobacco user Tobacco use type: Cigarette Cigarettes Per Day: 10 Smoked in Last 30 Days: Yes Patient Interested in Nicotine Replacement: Yes (Pt requesting a Nicotine patch.) Patient Given Instructions on How to Stop Smoking: No (Declined) Second Hand Smoke Exposure: No Use of substances other than those prescribed or required for medical reasons: No Substance Use Type: Marijuana Currently Displaying Signs/Symptoms of Drug Intoxication Withdrawal: No Any prior treatment program specific to substance use: No Have you been hit, kicked, punched, or otherwise hurt by someone within the past year? If so, by whom?: No Do you feel safe in your current relationship?: Yes Is there a partner from a previous relationship who is making you feel unsafe now?: No Are you made to feel afraid or neglected: Yes Spiritual Healthcare Practices: Baptism Advance Directives: No Advance Directives Information Provided: No Advance Directives on File: No Do you have a plan to hurt others: No Plan Recently lost weight without trying: No Eating poorly because of decreased appetite: No Nutrition Risks: No Nutritional Risk Patient : No : No Poor oral hygiene: No service: No Sexual orientation: Straight/Heterosexual Gender identity: Female Meds Allergies Allergy/AdvReac Type Severity Reaction Status Date / Time No Known Allergies Allergy Verified 04/13/24 17:28 Active Medications: Current Medications Acetaminophen (Acetaminophen 325 Mg Tablet) 975 mg PO Q6H PRN PRN Reason: Pain, Mild 1-3,fever,headache Last Admin: 04/14/24 08:11 Dose: 975 mg Aspirin (Aspirin Enteric Coated 81 Mg Tablet.Dr) 81 mg PO DAILY [facility] Last Admin: 04/14/24 08:10 Dose: 81 mg Hydrochlorothiazide (Hydrochlorothiazide 25 Mg Tablet) 25 mg PO DAILY [facility]; Protocol Loratadine (Loratadine 10 Mg Tablet) 10 mg PO DAILY [facility] Last Admin: 04/14/24 08:10 Dose: 10 mg Lorazepam (Lorazepam 2 Mg/Ml Vial) 1 mg IVPUSH ONCE PRN PRN Reason: 10 mins before MRI Last Admin: 04/14/24 12:20 Dose: 1 mg Mirtazapine (Mirtazapine 15 Mg Tablet) 15 mg PO BEDTIME [facility] Last Admin: 04/13/24 22:24 Dose: 15 mg Morphine Sulfate (Morphine Sulfate 2 Mg/Ml Cartridge) 2 mg IVPUSH Q4H PRN; Protocol PRN Reason: Pain, Severe (Pain Scale 7-10) Last Admin: 04/13/24 22:27 Dose: 2 mg Ziprasidone (Ziprasidone 20 Mg Capsule) 20 mg PO BID [facility] Last Admin: 04/14/24 08:10 Dose: 20 mg Home Medications ?Medication ?Instructions ?Recorded ?Confirmed ?Last Taken ?Type lactulose 10 gram/15 mL oral 10 g PO DAILY PRN Constipation 02/09/21 04/13/24 04/12/24 History solution lorazepam 1 mg tablet 1 mg PO DAILY PRN Anxiety 01/27/22 04/13/24 04/12/24 History hydrochlorothiazide 25 mg tablet 25 mg PO DAILY nx 10/19/23 04/13/24 04/12/24 History hydroxyzine HCl 25 mg tablet 25 mg PO Q12H PRN Anxiety 10/19/23 04/13/24 Unknown History mirtazapine 15 mg tablet 15 mg PO BEDTIME 10/19/23 04/13/24 04/12/24 History pantoprazole 40 mg tablet,delayed 40 mg PO DAILY@0630 10/19/23 04/13/24 04/12/24 History release trazodone 50 mg tablet 50 mg PO BEDTIME PRN insomnia 10/19/23 04/13/24 04/12/24 History ibuprofen 800 mg tablet 800 mg PO Q8H PRN moderate pain 01/18/24 04/13/24 Unknown History betamethasone, augmented 0.05 % 1 appl topical BID 04/13/24 04/13/24 04/12/24 History topical ointment cyclobenzaprine 10 mg tablet 10 mg PO TID PRN muscle spasm 04/13/24 04/13/24 Unknown History gabapentin 800 mg tablet 800 mg PO TID 04/13/24 04/13/24 04/13/24 History loratadine 10 mg tablet 10 mg PO DAILY PRN allergies 04/13/24 04/13/24 Unknown History nicotine 14 mg/24 hr daily 1 patch topical DAILY 04/13/24 04/13/24 Unknown History transdermal patch ziprasidone HCl 20 mg capsule 20 mg PO BID 04/13/24 04/13/24 04/12/24 History zolpidem 5 mg tablet 5 mg PO BEDTIME 04/13/24 04/13/24 Unknown History Physical Exam 2 Vital Signs: Vital Signs: Last Vital Signs Temp 97.6 F 04/14/24 11:33 Pulse 94 04/14/24 11:33 Resp 18 04/14/24 11:33 BP 106/51 L 04/14/24 11:33 Pulse Ox 96 04/14/24 11:33 O2 Del Method Room Air 04/14/24 11:33 BMI result Body Mass Index 25.8 Neuro: Other: she is alert and awake with normal spontaneity of speech fluency comprehension and affect. Face is symmetrical. Visual hayes are full. Xlbann-ya-qrea testing is normal. There is no obvious focal weakness. Plantars are flexor. Results Labs 04/14/24 06:35 04/14/24 06:35 Labs: Short CBC 04/13/24 04/14/24 Range/Units 18:17 06:35 WBC 8.1 7.3 (4.8-10.8) X10*3/uL Hgb 12.3 12.1 (12.0-16.0) g/dl Hct 36.2 L 35.3 L (37.0-47.0) % Plt Count 285 276 (160-400) X10*3/uL BMP 04/13/24 04/14/24 18:17 06:35 Sodium 141 140 Potassium 3.2 L 3.5 Chloride 105 107 Carbon Dioxide 27 27 BUN 7 L 9 Creatinine 0.74 0.74 Calcium 9.4 8.8 D Liver Function 04/13/24 Range/Units 18:17 Total Bilirubin 0.1 (0.0-1.0) mg/dL Direct Bilirubin < 0.2 (0.0-0.5) mg/dL AST 19 (5-31) U/L ALT 16 (0-31) U/L Alkaline Phosphatase 48 (39-117) U/L Albumin 4.1 (3.5-5.0) g/dL Urine 04/13/24 Range/Units 18:20 Urine Color Yellow Urine Appearance Clear Urine pH 7.0 (5.0-9.0) Ur Specific [place] 1.015 (1.005-1.025) Urine Protein Negative (Neg-Trace) mg/dL Urine Glucose (UA) Negative (Negative) mg/dL CTA and CTA of brain and neck did not reveal any significant abnormality. Assessment and Plan (1) Dysarthria: Status: Acute Probably anxiety related or iatrogenic symptom from taking Valium. Suspicion for stroke or seizure disorder is low. Conservative supportive treatment is recommended. Procedures Date of Service Date of Service: 04/14/24
--- NOTE | 2024-04-14 14:18 | PM.DS ---
DS: Providers Provider Date of Service: 04/14/24 Date of admission: 04/13/24 19:35 Date of discharge: 04/14/24 Primary care physician: Dory Wen MD Consults: 04/13/24 19:28 Consult to Neurology Routine Consulting Provider: Blair Griffin Reason for consultation: slurred speech Has provider been notified: No Attending physician on discharge: Alea Ayers Discharging clinician: Rohini Salinas DS: Diagnosis Discharge Diagnosis (1) Dysarthria: Status: Acute DS: Summary Hospital Course Hospital Course: From H&P on the day of admission Pt is a 48-year-old female with a PMH significant for?asthma, HTN, migraines, chronic pain, GERD, and anxiety who presents to the ED for evaluation of slurred speech. Pt was seen in the ED yesterday for atypical chest pain x1 week and was diagnosed with costochondritis and sent home with a prescription for Valium. Pt reports filled the prescription earlier today?and took her 1st dose at 14:00 this afternoon. Pt then took a nap and when she she awoke found her hands were shaking, she had very dry mouth, and found it difficult to speak or breathe. Called EMS who noted pt had slurred speech upon examination. On initial arrival to the ED pt had intermittent slurred speech that soon fully resolved. Pt continues to complain of right-sided chest pain and pressure that has been ongoing for the past week. Reports some difficulty walking and that she feels ?unbalanced? when ambulating. Also complains of perioral numbness, as well as intermittent palpitations, fatigue, and DEMARCO. Pt denies headache or acute vision changes. No numbness or tingling in extremities. Denies hemiparesis. Currently smokes around half a pack of cigarettes daily. In the ED pt with elevated HR of 91 and elevated BP of 143/88. Labs were significant for potassium of 3.2, otherwise grossly unremarkable and baseline for pt. No leukocytosis. Stable H&H. Renal and hepatic function WNL. Troponin negative. UA negative for UTI. Tested negative for flu, COVID, RSV. CT?of head negative for acute intracranial findings. CTA of head and neck negative for acute findings. EKG demonstrated normal sinus rhythm without significant ischemic changes. Pt was treated with potassium chloride and aspirin. Pt will be admitted to the hospital under observation for treatment and further evaluation acute slurred speech concerning for TIA versus iatrogenic from Valium Dysarthria Pt with slurred speech, perioral numbness and tingling after waking from nap, difficulty ambulating. Pt previously had taken 1st dose of Valium. Returned back to baseline. no other focal neurological deficits were noted. concern for tia so CT of head and CTA of head/neck negative obtained and were negative for acute abnormalities. Seen by neurology, no further workup required. MRI negative for acute stroke. Acute costochondritis Right-sided, reproducible anterior chest pain x1 week Was seen and evaluated at ED yesterday Troponins negative yesterday, repeat troponin today negative EKG without ischemic changes Analgesics for pain management. improving HTN bp soft. will hold HCTZ for now. outpatient follow up with PCP recommended Acute hypokalemia. resolved with replacement Time Attestation Discharge Coordination Time (in mins): 36 Quality: Safe Use of Opioids Does Pt have an Active Cancer Diagnosis on the Problem List?: No Quality: Stroke Does the patient have a stroke diagnosis?: No Physical Exam Vital Signs: Vital Signs: Last Vital Signs Temp 97.6 F 04/14/24 11:33 Pulse 94 04/14/24 11:33 Resp 18 04/14/24 11:33 BP 106/51 L 04/14/24 11:33 Pulse Ox 96 04/14/24 11:33 O2 Del Method Room Air 04/14/24 11:33 BMI result Body Mass Index 25.8 Const: General: cooperative, comfortable, alert and awake Orientation/consciousness: patient oriented x3 Neuro: General: patient oriented x3, moves all extremities and CN's II-XI intact bilaterally DS: Data Data Completed and Pending Labs on day of discharge: Laboratory Results - last 24 hr 04/13/24 04/13/24 04/13/24 17:19 18:17 18:20 WBC 8.1 RBC 3.90 L Hgb 12.3 Hct 36.2 L MCV 92.8 MCH 31.5 MCHC 34.0 RDW 14.0 Plt Count 285 MPV 9.2 L Immature Gran % (Auto) 0.6 H Neut % (Auto) 61.1 Lymph % (Auto) 28.1 [place] % (Auto) 8.2 Eos % (Auto) 1.6 Baso % (Auto) 0.4 Lymph # (Auto) 2.3 [place] # (Auto) 0.7 Eos # (Auto) 0.1 Baso # (Auto) 0.0 Abs Immat Gran (auto) 0.05 H Absolute Neuts (auto) 4.9 Absolute Nucleated RBC 0.000 Nucleated RBC % (auto) 0.0 PT 10.5 L Whole Blood PT 11.4 INR 0.9 Whole Blood INR 1.0 Sodium 141 Potassium 3.2 L Chloride 105 Carbon Dioxide 27 Anion Gap 12 BUN 7 L Creatinine 0.74 Estim Creat Clear Calc 90.6 Estimated GFR > 60 POC Glucose 146 H Random Glucose 105 Estimat Average Glucose Hemoglobin A1c % Calcium 9.4 Magnesium 2.1 Total Bilirubin 0.1 Direct Bilirubin < 0.2 AST 19 ALT 16 Alkaline Phosphatase 48 Troponin I High Sens < 2.7 Total Protein 7.5 Albumin 4.1 Triglycerides Cholesterol LDL Cholesterol, Calc HDL Cholesterol Lipase 31 Urine Color Yellow Urine Appearance Clear Urine pH 7.0 Ur Specific [place] 1.015 Urine Protein Negative Urine Glucose (UA) Negative Urine Ketones Negative Urine Blood Large (3+) H Urine Nitrite Negative Ur Leukocyte Esterase Trace H Urine RBC >20 H Urine WBC 0-5 Ur Squamous Epith Cells 0-2 Urine Bacteria None Seen Hyaline Casts 0-2 Urine Opiates Screen Not Detected Ur Buprenorphine Scrn Not Detected Ur Oxycodone Screen Not Detected Urine Methadone Screen Not Detected Urine Fentanyl Screen Not Detected Ur Barbiturates Screen Not Detected Ur Phencyclidine Scrn Not Detected Ur Amphetamines Screen Not Detected U Benzodiazepines Scrn Not Detected Urine Cocaine Screen Not Detected U Marijuana (THC) Screen Not Detected Ethyl Alcohol < 10 Influenza Type A (PCR) NEGATIVE Influenza Type B (PCR) NEGATIVE RSV RNA Qual (PCR) NEGATIVE SARS-CoV-2 RNA (RT-PCR) NEGATIVE 04/14/24 06:35 WBC 7.3 RBC 3.78 L Hgb 12.1 Hct 35.3 L MCV 93.4 MCH 32.0 MCHC 34.3 RDW 14.2 Plt Count 276 MPV 9.7 Immature Gran % (Auto) 0.6 H Neut % (Auto) 63.8 Lymph % (Auto) 25.9 [place] % (Auto) 7.4 Eos % (Auto) 1.9 Baso % (Auto) 0.4 Lymph # (Auto) 1.9 [place] # (Auto) 0.5 Eos # (Auto) 0.1 Baso # (Auto) 0.0 Abs Immat Gran (auto) 0.04 H Absolute Neuts (auto) 4.6 Absolute Nucleated RBC 0.000 Nucleated RBC % (auto) 0.0 PT Whole Blood PT INR Whole Blood INR Sodium 140 Potassium 3.5 Chloride 107 Carbon Dioxide 27 Anion Gap 10 L BUN 9 Creatinine 0.74 Estim Creat Clear Calc 86.3 Estimated GFR > 60 POC Glucose Random Glucose 108 Estimat Average Glucose 117 Hemoglobin A1c % 5.7 Calcium 8.8 D Magnesium Total Bilirubin Direct Bilirubin AST ALT Alkaline Phosphatase Troponin I High Sens Total Protein Albumin Triglycerides 68 Cholesterol 175 LDL Cholesterol, Calc 121 H HDL Cholesterol 41 Lipase Urine Color Urine Appearance Urine pH Ur Specific [place] Urine Protein Urine Glucose (UA) Urine Ketones Urine Blood Urine Nitrite Ur Leukocyte Esterase Urine RBC Urine WBC Ur Squamous Epith Cells Urine Bacteria Hyaline Casts Urine Opiates Screen Ur Buprenorphine Scrn Ur Oxycodone Screen Urine Methadone Screen Urine Fentanyl Screen Ur Barbiturates Screen Ur Phencyclidine Scrn Ur Amphetamines Screen U Benzodiazepines Scrn Urine Cocaine Screen U Marijuana (THC) Screen Ethyl Alcohol Influenza Type A (PCR) Influenza Type B (PCR) RSV RNA Qual (PCR) SARS-CoV-2 RNA (RT-PCR) Discharge Plan Discharge Anticipated Discharge Date/Time: 04/14/24 14:32 Patient Disposition: Home, Self-Care Discharge Diagnosis: dysarthria Referrals: Dory Ray MD [Primary Care Provider] - 1 Week Discharge Medications: Continued albuterol sulfate 90 mcg/actuation HFA aerosol inhaler 2 puff inhalation Q6H PRN (Reason: shortness of breath or wheezing) Qty: 8.5 0RF tramadol 50 mg tablet 50 mg PO Q8H PRN (Reason: pain) Qty: 14 0RF cyclobenzaprine 10 mg tablet 10 mg PO TID PRN (Reason: muscle spasm) ziprasidone HCl 20 mg capsule 20 mg PO BID betamethasone, augmented 0.05 % ointment 1 appl TOPICAL BID gabapentin 800 mg tablet 800 mg PO TID loratadine 10 mg tablet 10 mg PO DAILY PRN (Reason: allergies) nicotine 14 mg/24 hr patch 24 hour 1 patch topical DAILY zolpidem 5 mg tablet 5 mg PO BEDTIME lidocaine 5 % adhesive patch,medicated 1 patch topical DAILY Qty: 30 0RF Rx Instructions: leave on most painful area for up to 12 hrs lorazepam 1 mg tablet 1 mg PO DAILY PRN (Reason: Anxiety) lactulose 10 gram/15 mL solution 10 g PO DAILY PRN (Reason: Constipation) mirtazapine 15 mg tablet 15 mg PO BEDTIME trazodone 50 mg tablet 50 mg PO BEDTIME PRN (Reason: insomnia) pantoprazole 40 mg tablet,delayed release (DR/EC) 40 mg PO DAILY@0630 hydroxyzine HCl 25 mg tablet 25 mg PO Q12H PRN (Reason: Anxiety) ibuprofen 800 mg tablet 800 mg PO Q8H PRN (Reason: moderate pain) Held hydrochlorothiazide 25 mg tablet 25 mg PO DAILY Hold Instructions: bp soft. hold for now; follow up with pcp Discharge Orders: Discharge Order (Routine); Ordered 04/14/24 Ordered By: Rohini Salinas Activity on Discharge: As tolerated Stand Alone Forms: Patient Portal Discharge page Print Language: Maori Care Plan Goals: see below Health Concerns: dystharthria - resolved low potassium - resolved Plan of Treatment: difficulty speaking likely due to medication. no stroke blood pressure on lower side. don't take HCTZ, call to schedule follow up with PCP minimize use of sedating medications don't take any more valium Assessment: see discharge summary
== END 2024-04-14 15:23 | disposition home or self-care (01) ==
LOC: HO.ED 19:17 → HO.EDOVER 19:40 → HO.IMC 19:48
PROVIDERS: Admitting Provider Internal Medicine; Emergency Provider Emergency Medicine; PCP Internal Medicine; Visit Provider Physician Assistant Medical
DX: R47.1 Dysarthria and anarthria (principal); E87.6 Hypokalemia; M94.0 Chondrocostal junction syndrome [Tietze]; R68.2 Dry mouth, unspecified; G62.9 Polyneuropathy, unspecified; G43.909 Migraine, unspecified, not intractable, without status migrainosus; F39 Unspecified mood [affective] disorder; R47.81 Slurred speech; R06.02 Shortness of breath; I10 Essential (primary) hypertension; J45.909 Unspecified asthma, uncomplicated; R53.1 Weakness; K21.9 Gastro-esophageal reflux disease without esophagitis; F41.9 Anxiety disorder, unspecified; Z79.899 Other long term (current) drug therapy; Z03.818 Encounter for observation for suspected exposure to other biological agents ruled out
CPT/HCPCS: 0241U; 36415; 70450; 70496; 70498; 70551; 80048; 80061; 80076; 80307; 81001; 82947; 83036; 83690; 83735; 84484; 85025; 85610; 93005; 96374; 96375; 97161; 99222; 99285; J2060; J2270

== ENCOUNTER → 2024-04-13 17:17 | Outpatient (BNV) | payer MEDICAID, SELFPAY | PROVIDERS: Emergency Provider Emergency Medicine; PCP Internal Medicine; Visit Provider Nuclear Medicine | DX: R47.01 Aphasia (principal) | CPT/HCPCS: 70450; 70496; 70498 ==

== ENCOUNTER → 2024-04-13 17:18 | Outpatient (BNV) | payer MEDICAID, SELFPAY | PROVIDERS: Admitting Provider Internal Medicine; Emergency Provider Emergency Medicine; PCP Internal Medicine; Visit Provider Internal Medicine | DX: R94.31 Abnormal electrocardiogram [ECG] [EKG] (principal) | CPT/HCPCS: 93010 ==

== ENCOUNTER → 2024-04-13 19:35 | Outpatient (BNV) | payer MEDICAID, SELFPAY | PROVIDERS: Admitting Provider Internal Medicine; Emergency Provider Emergency Medicine; PCP Internal Medicine; Visit Provider Psychiatry & Neurology Neurology | DX: R47.1 Dysarthria and anarthria (principal) | CPT/HCPCS: 99221 ==

== ENCOUNTER → 2024-04-13 19:35 | Outpatient (BNV) | payer MEDICAID, SELFPAY | PROVIDERS: Admitting Provider Internal Medicine; Emergency Provider Emergency Medicine; PCP Internal Medicine; Visit Provider Student in an Organized Health Care Education/Training Program | DX: R47.1 Dysarthria and anarthria (principal) | CPT/HCPCS: 99239 ==

== ENCOUNTER → 2024-04-24 09:19 | Outpatient (BNVA) | payer MEDICAID, SELFPAY | PROVIDERS: PCP Internal Medicine; Visit Provider Surgery ==

== ENCOUNTER 2024-05-01 10:23 | Outpatient (RCR) | payer MEDICAID, SELFPAY ==
--- NOTE | 2024-05-03 15:08 | MHC.PT.EP ---
[facility] [address] Office [place] Office [place] Office [address] [phone] F: [phone] F: [phone] F: [phone] F: [phone] Physical Therapy Plan of Care Date of Evaluation: 05/01/24 Date of Surgery: NA Diagnosis: LEFT ANKLE PAIN, KNEE OA (KP) Assessment: SARI IS A PLEASANT 48 YO FEMALE WHO PRESENTS WITH C/O INCREASING LAT ANKLE AND CALF PAIN. UPON INTERVIEWING SHE STATES THAT HER KNEE PAIN HAS BEEN FAIRLY CONSTANT OVER THE LAST FEW YEARS WITH THE ANKLE PAIN BEGINNING A FEW MONTHS AGO. SHE DESCRIES PAIN BURNING', SHARP AND SORE . IT DOES NOT CHANGE WITH WEIGHT BEARING, IT DOES NOT APPEAR TO CHANGE WITH POSITIONING. SHE STATES THE SYMPTOMS VARY IN FREQUENCY AND INTENSITY BUT CANNOT PINPOINT ANY SPECIFIC ACTIVITIES THAT HELP OR HURT. SHE WILL OCCASIONALLY USE HEAT OR ICE WELL MUSCLE CREAM FOR SOME PAIN RELIEF BUT STATES THIS DOES NOT MAKE ANY SIGNIFICANT CHANGE. SHE LIVES WITH HER S/O IN A SECOND FLOOR APARTMENT AND REPORTS OFTEN PERFORMING NON-RECIPROCAL GAIT ON STAIRS. UPON EXAM IMPAIRMENTS INCLUDE DECREASED RANGE AND STRENGTH OF LOW BACK, HIPS AND LE INCLUDING FOOT/ANKLE COMPLEX, INCREASED TISSUE TENSION OF LOW BACK AND LOWER LEG, ALTERED GAIT PATTERN AND INCREASED PAIN FUNCTIONAL LIMITATIONS INCLUDE DECREASED TOLERANCE TO WALKING, STATIC STANDING, STAIR NEGOTIAION AND SQUATTING. SHE REPORTS DECREASED ABILITY TO PERFORM HOMEMAKING TASKS, DECREASED TOLERANCE TO WALKING FOR FITNESS AND DECREASED PARTICIPATION IN RECREATIONAL ACTIVITIES. SHE REPORTS DISRUPTED SLEEP Frequency and Duration: The patient will be seen 2 X WEEK FOR 4 WEEKS Short Term Goals: INITIATE HEP AND PROMOTE SELF MANAGEMENT OF SYMPTOMS [employer]ader Goals: FULL LE STRENGTH EQUAL [place] INCREASED LUMBAR ROM TO A MINIMUM OF 50% ALL PLANES TO TOLERATE A MINIMUM OF 20 MINS WALKING WITH PAIN NO GREATER THAN 2/10 INDEPENDENT HEP Treatment Plan: Modalities to reduce pain, spasms and effusion. Manual therapy to restore motion and function. Therapeutic exercise to improve strength and flexibility. Neuromuscular re-education for posture and balance. Therapeutic activities to return to functional activities of daily living. Electronically signed by: MAHNAZ ABRAHAM PT DPT Please sign and return to therapist. Thank you for your referral.
--- NOTE | 2024-05-23 09:41 | MHC.PT.DC ---
[facility] [place] Office [place] Office [place] Office [address] Armando Garcia [address] [phone] F: [phone] F: [phone] F: [phone] F: [phone] Physical Therapy Discharge Report Diagnosis: LEFT ANKLE PAIN, KNEE OA (KP) Date of Surgery: NA Date of Evaluation: 05/01/24 Date of Discharge: 05/23/24 Treatments to Date: 1 Cancellations to Date: 2 No Shows to Date: 2 Discharge Status: Visit Non-compliance Discharge Summary: Pt attended eval only. Cancelled first 2 visits, no showed 2nd 2 visits and is DCed for non-compliance. Electronically signed by: Fani Vale PT DPT Please sign and return to therapist. Thank you for your referral.
== END 2024-05-23 09:41 | disposition home or self-care (01) ==
LOC: HO.PT 10:23
PROVIDERS: PCP Internal Medicine; Visit Provider Physician Assistant
DX: M17.12 Unilateral primary osteoarthritis, left knee (principal); M77.52 Other enthesopathy of left foot and ankle
CPT/HCPCS: 97110; 97163; 97535

== ENCOUNTER 2024-05-14 09:34 | Outpatient (AMB) | payer MEDICAID, SELFPAY ==
--- NOTE | 2024-05-14 09:34 | A.OFFVIS_ITS ---
Vital Signs 05/14/24 09:37 Height 5 ft 4 in Weight 150 lb BMI 25.7 BP 130/80 Intake Visit Reasons: US Follow up Allergies No Known Allergies Allergy (Verified 04/13/24 17:28) HPI Comments Details: Presenting for ultrasound follow-up complaining of bilateral pelvic pain associated with vaginal discharge no vulvovaginal itching or foul odor no fever or chills no GI or symptoms. Pelvic ultrasound done on 03/23/2024 read on 05/09/2024 showed the following: Uterus: The uterus is anteverted and measures 9 x 4 x 5 cm. The cervix demonstrates probable nabothian cysts. The double wall endometrial thickness is 20 mm. The uterus is smooth in contour and has normal myometrial echogenicity. No visible fibroid. Adnexa: Status post right oophorectomy.. There is no pelvic ascites or fluid collection. Left ovary measures 3 x 3 x 3 cm. Volume is 11 cc. There is a 2 cm anechoic lesion with thin septations. No flow on color Doppler interrogation. [facility] Medical History (Updated 05/14/24 @ 09:55 by Macho Sarkar MD) Complex ovarian cyst Constipation HTN (hypertension) Abnormal uterine bleeding (AUB) Strain of gastrocnemius tendon of right lower extremity Urinary frequency Bladder pain Interstitial cystitis Vaginal discharge Microscopic hematuria Chest pain Cystitis Seasonal allergies Anxiety and depression Chronic pain syndrome Spondylosis of lumbar spine Disc degeneration, lumbar Abdominal mass, left lower quadrant COVID-19 COVID-19 Bacterial vaginosis Stress incontinence Female pelvic pain Breast lump Well woman exam Depression Fibromyalgia Arthritis Migraines Asthma Surgical History Hx of bladder endoscopy History of salpingo-oophorectomy History of bilateral tubal ligation H/O LEEP History of carpal tunnel release Family History Sister History of breast cancer, Onset Age: 52 Brother History of bone cancer History of blood disorder History of brain cancer Paternal Aunt History of cancer of uterus Mother Hx of cancer of lung Sister Hx of hysterectomy Family/Other Hx of hysterectomy Family/Other Hx of hysterectomy Daughter Hx of thyroid cancer Social History Household Members: Significant Other Housing: Apartment Do you presently have visiting nurse or other home services: Yes (FIRE WATCHMAN daily) Alcohol intake: never Patient Tobacco Use Status: Current everyday Tobacco user Tobacco use type: Cigarette Cigarettes Per Day: 10 Second Hand Smoke Exposure: No Substance Use Type: Marijuana service: No Sexual orientation: Straight/Heterosexual Gender identity: Female Female Reproductive History Menstrual Age of Menarche: 9 Review of Systems Const All systems reviewed & are unremarkable except as noted in HPI and below Reports as per HPI and Reports no additional complaints GI Reports no additional complaints Reports no additional complaints Office Procedures Endometrial Biopsy Details: The patient was counseled regarding the indication and benefits of endometrial sampling to rule out endometrial pathology including not limited to endometrial hyperplasia or endometrial cancer and others; The alternatives (Either do nothing vs. hysteroscopy D&C) & the risks were discussed with the patient including but not limited: pain, uterine perforation, bleeding, infection, po ssible injury to bladder, bowel, ureter, possible need for blood transfusion with all its possible risks. The patient verbalized understanding all questions answered and signed consent. Urine test done in the office was negative The patient was placed into the dorsal lithotomy position; a speculum was inserted in the vagina. Using aseptic technique for the procedure, the cervix was cleansed with Betadine. The anterior lip of the cervix was grasped with a single tooth tenaculum. The uterus was sounded to 7 cm with a 4 mm Pipelle was used. Tissues samples were obtained and placed in formalin, in a patient labeled container and sent to the pathology department. At the end of the procedure, there was minimal bleeding noted The patient tolerated the procedure well and was discharged in good condition with the following instructions: Nothing in the vagina until the bleeding stops. No sex until the bleeding stops, to call if any of the following occurs: fever (>100.4), flu-like symptoms, abdominal pain, heavy bleeding, four smelling vaginal discharge. The patient was instructed to schedule a Follow up appointment in 2 weeks to discuss pathology results of the biopsy and treatment options. This note was generated with a voice recognition program. Some errors may have been overlooked during the review of this note. Sometimes these errors may affect the content or meaning of a given sentence. [id number] Biopsy Assessment & Plan Assessment & Plan (1) Abnormal uterine bleeding (AUB): Comment: Thick endometrium by ultrasound Code(s): N93.9 - Abnormal uterine and vaginal bleeding, unspecified Category: Medical Plan: Discussed with the patient the pelvic ultrasound findings, the endometrial stripe thickenss . Recommended to the patient that the next step is an endometrial sampling via hysteroscopy D&C possible polypectomy versus endometrial biopsy to r/o endometrial pathology including hyperplasia or cancer. All the pros and cons risks and benefits of each approach were discussed with the patient, endometrial biopsy being less invasive, office procedure with less sensitivity and inability diagnose a polyp and removal versus hysteroscopy done under anesthesia more invasive more sensitive to endometrial cancer and possibility of diagnosing and endometrial polyp with the possibility of p olypectomy. All questions were answered pt verbalized understanding and decided to proceed with endometrial biopsy. EMB done, see procedure note (2) Complex ovarian cyst: Code(s): N83.299 - Other ovarian cyst, unspecified side Category: Medical Plan: Discussed with the patient the complex ovarian cyst by ultrasound. Discussed with the patient the Ultrasound findings, the main limitation of transvaginal ultrasonography alone as a diagnostic tool to distinguish benign from malignant masses relates to its lack of specificity and low positive predictive value for cancer. The differential diagnosis discussed with the patient includes the following but not limited to: benign and malignant gynecological and non-gynecological causes. Laboratory evaluation include UPT and GC/CT , serum tumor marker CA 125 . Discussed with the patient options of treatment ,including laparoscopy ovarian cystectomy/oophorectomy vs. expectant management with repeat US in repeating pelvic US in 6 weeks from previous US. If the ovarian complex cyst is pers istent larger and / or more complex looking, will refer to gynecologic Oncology. All pros, cons, risks and benefits of each approach were discussed with the patient including but not limited to a delay in the diagnosis and treatment of ovarian cancer affecting the prognosis; The patient decided to go ahead with expectant management. Instructions given the patient to schedule a 2 week follow-up ultrasound appointment. All questions were answered & the patient verbalized understanding and agreed with the plan. (3) Pelvic pain: Code(s): R10.2 - Pelvic and perineal pain Category: Medical Plan: Urine dip and test done in the office were both negative. GC and chlamydia with BV panel taken and pelvic ultrasound ordered. Discussed with the patient the differential diagnosis of pelvic pain including but not limited to adnexal, uterine masses, pelvic infections (PID), GI the (Irritable bowel syndrome, diverticulitis, others), musculoskeletal, myofascial pain abdominal wall , adhesions, endometriosis, psychological and others causes. Will check results and treat accordingly. All questions answered, the patient verbalized understanding. Instructed the patient to schedule an ultrasound and a follow-up appointment in 2 weeks. All questions answered, the patient verbalized understanding and agreed with the plan. (4) Microscopic hematuria: Code(s): R31.29 - Other microscopic hematuria Category: Medical Plan: Urine dip showed microscopic hematuria, urine culture sent. Will repeat urine dip in 2 weeks. Discussed with the patient the possible causes of microscopic hematuria including but not limited to: interstitial cystitis, polyps, stones, masses, urethral inflammatory processes and others. If Urine Culture is negative and repeat urine dip in 2 weeks shows persistent microscopic hematuria, will proceed with CT abdomen/pelvis and urology referral. Instructions given the patient to schedule a 2 week urine dip follow-up appointment. All questions answered and the patient verbalized understanding. Orders: Orders US pelvic and transvaginal Today N83.299 - Other ovarian cyst, unspecified side Urine Culture Today N93.9 - Abnormal uterine and vaginal bleeding, unspecified, R31.29 - Other microscopic hematuria Surgical Today N93.9 - Abnormal uterine and vaginal bleeding, unspecified, R 31.29 - Other microscopic hematuria AMB Endometrial Biopsy Today N93.9 - Abnormal uterine and vaginal bleeding, unspecified Coding Level of Care Code Est Pt Level 3 (53403) Procedure Only Diagnoses Abnormal uterine bleeding (AUB) N93.9 Complex ovarian cyst N83.299 Pelvic pain R10.2 Microscopic hematuria R31.29 CPT Codes Endometrial Biopsy - CPT: 56048-[id number] Biopsy ([id number])
[2024-05-14 09:37] VITALS: BP 130/80; BMI 25.7
--- OUTSIDE RECORDS SUMMARY | 2024-05-14 10:15 | XMS_ITS | Encounter Summary ---
Author Organization [employer] Address [address] [place] [address] Care Team Providers Care Gun Welder Name Role Phone Dory Ray MD Primary Care Provide r Reason for Visit * Reason Comments Med Refill Encounter Details Date Type Department Care Team ([facility] st Contact Info) Description 02/22/2024 Refill [facility] PEDS [address] [place], [place] [phone] Dory Ray MD [address] [place] [address] Chronic pain syndrome; Anxiety Social History Tobacco Use Types Packs/Day Years Used Date Smoking Tobacco: Every Day Cigarettes Passive Smoke Exposure: Current Smokeless Tobacco: Never Alcohol Use Standard Drinks/Week Comments Never 0 (1 standard drink = 0.6 oz pur e alcohol) Alcohol Answer Date Recorded Frequency of Alcohol Consumption Not on file 08/30/2023 Average Number of Drinks Not on file 024 Frequency of Binge Drinking Not on file 08/03 Score 0 08/30/2023 Depression Answer Date Recorded Patient Health Questionnaire-9 Score 24 01/10/2024 Patient Health Questionnaire-9 Score 24 01/10/2024 Last PHQ-9: Questionnaire Data Not on file 1 Housing Stability Answer Date Recorded What is your housing situation today? I do not have housing (Staying with others, in a hotel, in a prison, living outside on the street, on a beach, in a car, or in a park 08/19/[address] you li ve. Do you have problems with any of the following? None of the above;Lead [place] or Pipes;Pests such as bugs, ants, or mice 08/19/2023 Food Insecurity Answer Date Recorded Within the past 12 months, y ou worried that your food would run out before you got money to buy more: Sometimes True 2023 Within the past 12 months,th e food you bought just didn't last and you didn't have enough money to get more: Sometimes True 08/19/2023 Transportation Answer Date Recorded In the past 12 months, has l ack of transportation kept you from medical appts, meetings, work or from getting things needed for daily living? No 01/17/2023 Utilities Answer Date Recorded In the past 12 months, has t he electric, gas, oil or water company threatened to shut off services in your home? No 01/17/2023 Depression Answer Date Recorded Patient Health Questionnaire-2 Score 6 01/10/2024 Comments Unknown Sex and Gender Information Value Date Recorded Sex Assigned at Female 02/01/2022 10:14 AM EDT Legal Sex Female 10:14 AM EDT Gender Identity Female 02/01/2022 10:14 AM EDT Sexual Orientation Choose not to disclose 2021 10:14 AM EDT documented as of this encounter Plan of Treatment Upcoming Encounters Date Type Department Care Team (Late st Contact Info) Description 05/15/2024 9:30 AM EST Office Visit [address] [address] Dory Ray MD [address] [place] [address] 05/15/2024 11:00 AM EST Office Visit [address] [address] 05/30/2024 10:15 AM EST Office Visit [address] [address] Dory Ray MD [address] [place] [address] documented as of this encounter Goals Goal Patient Goal Type Associated Problems Recent Progress Patient-Stated? Author Smoking cessation General No change(2023 2:25 PM EDT) Kiah Hanson, PharmD Note: Maintain current progress, smoke 8 cigarettes per day or less. documented as of this encounter Visit Diagnoses Diagnosis Chronic pain syndrome Anxiety Anxiety state, unspecified documented in this encounter Additional Health Concerns Assessment Noted Time PHQ-9 Depression Total Score: 24 024 9:01 AM EDT documented as of this encounter Care Teams Gun Welder Relationship Specialty Start Date End Date Dory Ray MD [address] [place] [address] PCP - General Family Medicine 01/03/19 Jeane Lemons GmNeurodiagnostic Tech 11/09/23 documented as of this encounter
--- OUTSIDE RECORDS SUMMARY | 2024-05-14 10:15 | XMS_ITS | Encounter Summary ---
Author Organization [employer] Address [address] [place] [address] Care Team Providers Care Dual Rate Supervisor Name Role Phone Dory Ray MD Primary Care Provide r Encounter Details Date Type Department Care Team (Late Contact Info) Description 04/07/2022 Orders Only [facility] MEDICINE [address] [place] [address] Rohini Middleton MD [address] [place] [phone] Pain (Primary Dx) Social History Tobacco Use Types Packs/Day Years Used Date Smoking Tobacco: Every Day Cigarettes Smokeless Tobacco: Never Alcohol Use Standard Drinks/Week Comments Never 0 (1 standard drink = 0.6 oz pur e alcohol) Comments Unknown Sex and Gender Information Value Date Recorded Sex Assigned at Female 02/01/2022 10:14 AM EDT Legal Sex Female 10:14 AM EDT Gender Identity Female 02/01/2022 10:14 AM EDT Sexual Orientation Choose not to disclose 2021 10:14 AM EDT COVID-19 Exposure Response Date Recorded In the last 10 days, have ellis higgins been in contact with someone who was confirmed or suspected to have Coronavirus/COVID-19? No / Unsure 04/06/2022 12:51 PM EST documented as of this encounter Plan of Treatment Upcoming Encounters Date Type Department Care Team (Late Contact Info) Description 05/15/2024 9:30 AM EST Office Visit [facility] MEDICINE [address] [place] [address] Dory Ray MD [address] [place] [address] 05/15/2024 11:00 AM EST Office Visit [facility] MEDICINE [address] [place] [address] [phone] 05/30/2024 10:15 AM EST Office Visit [address] [phone] Dory Ray MD [address] [place] [address] [phone] documented as of this encounter Visit Diagnoses Diagnosis Pain- Primary Generalized pain documented in this encounter Care Teams Dual Rate Supervisor Relationship Specialty Start Date End Date Dory Ray MD [address] [place] [address] [phone] PCP - General Family Medicine 01/03/19 Jeane Lemons Before School BabysitterFilm Cutter 11/09/23 documented as of this encounter
--- OUTSIDE RECORDS SUMMARY | 2024-05-14 10:15 | XMS_ITS | Encounter Summary ---
Author Organization [employer] Address [address] [facility] 7t [place] [address] Care Team Providers Care Billing Specialist Name Role Phone Dory Ray MD Primary Care Provide r Reason for Visit * Reason Onset Date Comments ER Follow-up 04/17/2024 Encounter Details Date Type Department Care Team ([facility] Contact Info) Description 04/17/2024 Telephone [facility] MEDICINE [address] [place] [address] Dory Ray MD [address] [place] [address] ER Follow-up Social History Tobacco Use Types Packs/Day Years [...] with others, in a hotel, in a halfway, living outside on the street, on a beach, in a car, or in a park 08/19/[address] you li ve. Do you have problems with any of the following? None of the above;Lead [place] or P[place];Pests such as bugs, ants, or [...] AM EDT documented as of this encounter Miscellaneous Notes * Telephone Encounter - Keerthi Felix RN - 04/17/2024 12:11 PM EST Tc to pt to do status check for post discharge [place] [facility] for slurred speech, anxiety, sob from 04/12/24-04/13/24. Recommendations from ED provider to stopp taking their HTCZ due to low BP. Pt denies chest pain, sob, slurred speech, lightheaded, and numbness/tingling. Pt reports they have not been checking their BP at home or documenting their readings. Pt advised to document their BP readings and HR each day up until their appt . Pt advised that if they experience chest pain, sob or 10/10 headache to head back to Ed to be evaluated. Pt scheduled for HDF on 05/10/24 with PCP and pt verbalized unde rstanding. * Telephone Encounter - Yoli Holland - 04/17/2024 9:50 AM EST Patient calling to report ED visit on : Date: 04/13/24-04/14/24 Hospital: [facility] Seen for: Low blood pressure Symptomatic Yes Pt stated she was advise by [facility] not to take blood pressure medication. Pt denied triage. Would liketo follow up with PCP Radha. Patient advised will forward to team nurse for follow up Contact pt at [phone] ([email or web address]) documented in this encounter Plan of Treatment Upcoming Encounters Date Type Department Care Team ([facility] st Contact Info) Description 05/15/2024 9:30 AM EST Office Visit [address] [address] Dory Ray MD [address] [place] [phone] 05/15/2024 11:00 AM EST Office Visit [address] [address] 05/30/2024 10:15 AM EST Office Visit [address] [address] Dory Ray MD [address] [place] [phone] documented as of this encounter Goals Goal Patient Goal Type Associated Problems Recent Progress Patient-Stated? Author Smoking cessation General No change(2023 2:25 PM EDT) No Kiah Cisneros, Olimpia Note: Maintain current progress, smoke 8 cigarettes per day or less. documented as of this encounter Visit Diagnoses Not on filedocumented in this encounter Additional Health Concerns Assessment Noted Time PHQ-9 Depression Total Score: 24 024 9:01 AM EDT documented as of this encounter Care Teams Billing Specialist Relationship Specialty Start Date End Date Dory Ray MD [address] [place] [phone] PCP - General Family Medicine 01/03/[address] MagistrateMonitoring Engineer 11/09/23 documented as of this encounter
--- OUTSIDE RECORDS SUMMARY | 2024-05-14 10:15 | XMS_ITS | Encounter Summary ---
Author Organization [employer] Address [address] [place] [address] Care Team Providers Care Bilingual Middle School Teacher Name Role Phone Dory Ray MD Primary Care Provide r Reason for Visit * Reason Onset Date Comments requesting call back 03/24/2022 Encounter Details Date Type Department Care Team ([facility] Contact Info) Description 03/24/2022 Telephone [facility] MEDICINE [address] [place] [address] Dory Ray MD [address] [place] [address] requesting call back Social History Tobacco Use Types Packs/Day Years [...] Recorded In the last 10 days, have yo gisela been in contact with someone who was confirmed or suspected to have Coronavirus/COVID-19? No / Unsure 03/05/2022 3:18 PM EST documented as of this encounter Miscellaneous Notes * Telephone Encounter - Abhinav Ruperto - 03/24/2022 10:29 AM EST Tc from pt returning call Please contact pt at [phone] documented in this encounter Plan of Treatment Upcoming Encounters Date Type Department Care Team (Late st Contact Info) Description 05/15/2024 9:30 AM EST Office Visit [address] [address] Dory Ray MD [address] [place] [phone] 05/15/2024 11:00 AM EST Office Visit [address] [address] 05/30/2024 10:15 AM EST Office Visit [address] [address] Dory Ray MD [address] [place] [address] [phone] documented as of this encounter Visit Diagnoses Not on filedocumented in this encounter Care Teams Bilingual Middle School Teacher Relationship Specialty Start Date End Date Dory Ray MD [address] [place] [address] [phone] PCP - General Family Medicine 01/03/19 Jeane Lemons Surveillance Camera TechnicianStripper Latex 11/09/23 documented as of this encounter
--- OUTSIDE RECORDS SUMMARY | 2024-05-14 10:15 | XMS_ITS | Encounter Summary ---
Author Organization [employer] Address [address] [facility] [address]t [address] Floor [place] [id number] Care Team Providers Care Placement Specialist Name Role Phone Dory Ray MD Primary Care Provide r Reason for Visit * Reason Comments Med Refill Encounter Details Date Type Department Care Team ([facility] st Contact Info) Description 08/23/2023 Refill [facility] DENTAL [address] [place] [address] Dashawn Garcia DDS [address] [place] [address] Social History Tobacco Use Types Packs/Day Years Used Date Smoking Tobacco: Every Day Cigarettes Passive Smoke Exposure: Current Smokeless Tobacco: Never Alcohol Use Standard Drinks/Week Comments Never 0 (1 standard drink = 0.6 oz pur e alcohol) Depression Answer Date Recorded Patient Health Questionnaire-9 Score 24 12/14/2022 Housing Stability Answer Date Recorded What is your housing situation today? I do not have housing (Staying with others, in a hotel, in a care home, living outside on the street, on a beach, in a car, or in a park 08/19/[address] you li ve. Do you have problems with any of the following? None of the above;Lead [place] or Pipes;Pests such as bugs, ants, or [...] Date Recorded Patient Health Questionnaire-2 Score 6 12/14/2022 Comments Unknown Sex and Gender Information Value Date Recorded Sex Assigned at Female 02/01/2022 10:14 AM EDT Legal Sex Female 10:14 AM EDT Gender Identity Female 02/01/2022 10:14 AM EDT Sexual Orientation Choose not to disclose 2021 10:14 AM EDT documented as of this encounter Miscellaneous Notes * Telephone Encounter - Starla Alvarez - 08/26/2023 10:05 AM EDT Good morning [address] Zeng Patient is calling she feeling a lot pain and some swollen. She's asking for some medication for pain until Tuesday that she can come in for emergency with you . * Telephone Encounter - Dashawn Garcia DDS - 08/23/2023 4:03 PM EDT Pt. Needs to see the dentist. documented in this encounter Plan of Treatment Upcoming Encounters Date Type Department Care Team (Late st Contact Info) Description 05/15/2024 9:30 AM EST Office Visit [facility] MEDICINE [address] [place] [address] Dory Ray MD [address] [place] [phone] 05/15/2024 11:00 AM EST Office Visit [address] [address] 05/30/2024 10:15 AM EST Office Visit [address] [place] [address] Dory Ray MD [address] [place] [address] documented as of this encounter Goals Goal Patient Goal Type Associated Problems Recent Progress Patient-Stated? Author Smoking cessation General No change(2023 2:25 PM EDT) Kiah Hanson, PharmD Note: Maintain current progress, smoke 8 cigarettes per day or less. documented as of this encounter Visit Diagnoses Not on filedocumented in this encounter Additional Health Concerns Assessment Noted Time PHQ-9 Depression Total Score: 24 023 9:07 AM EDT documented as of this encounter Care Teams Placement Specialist Relationship Specialty Start Date End Date Dory Ray MD [address] [place] [phone] PCP - General Family Medicine 01/03/19 Jeane Lemons Log SawyerProject Management Instructor 11/09/23 documented as of this encounter
--- OUTSIDE RECORDS SUMMARY | 2024-05-14 10:15 | XMS_ITS | Encounter Summary ---
Author Organization [email or web address] Address [address] [place] [address] Care Team Providers Care Eligibility Worker Name Role Phone Dory Ray MD Primary Care Provide r Reason for Visit * Reason Comments Med Refill Encounter Details Date Type Department Care Team ([facility] st Contact Info) Description 05/20/2023 Refill [facility] [address] [place], [place] [phone] Dory Ray MD [address] [place], [place] [phone] Chronic pain syndrome Social History Tobacco Use Types Packs/Day Years Used Date Smoking Tobacco: Every Day Cigarettes Passive Smoke Exposure: Current Smokeless Tobacco: Never Alcohol Use Standard Drinks/Week Comments Never 0 (1 standard drink = 0.6 oz pur e alcohol) Depression Answer Date Recorded Patient Health Questionnaire-9 Score 24 12/14/2022 Housing Stability Answer Date Recorded What is your housing situation today? I have danielito jernigan 01/17/[address] you li ve. Do you have problems with any of the following? None of the above 01/17/2023 Food Insecurity Answer Date Recorded Within the past 12 months, y ou worried that your food would run out before you got money to buy more: Never True 01/17/2023 Within the past 12 months,th e food you bought just didn't last and you didn't have enough money to get more: Never True Transportation Answer Date Recorded In the past [...] Description 05/15/2024 9:30 AM EST Office Visit [address] [address] Dory Ray MD [address] [place] [id number] 05/15/2024 11:00 AM EST Office Visit [address] [address] 05/30/2024 10:15 AM EST Office Visit [address] [address] Dory Ray MD [address] [place] [id number] documented as of this encounter Goals Goal Patient Goal Type Associated Problems Recent Progress Patient-Stated? Author Smoking cessation General No change(2023 2:25 PM EDT) No Kiah Cisneros PharmD Note: Maintain current progress, smoke 8 cigarettes per day or less. documented as of this encounter Visit Diagnoses Diagnosis Chronic pain syndrome documented in this encounter Additional Health Concerns Assessment Noted Time PHQ-9 Depression Total Score: 24 023 9:07 AM EDT documented as of this encounter Care Teams Eligibility Worker Relationship Specialty Start Date End Date Dory Ray MD [address] [place] [phone] PCP - General Family Medicine 01/03/19 Jeane Lemons [employer] 11/09/23 documented as of this encounter
--- OUTSIDE RECORDS SUMMARY | 2024-05-14 10:15 | XMS_ITS | Clinical Summary ---
Author Organization [address] [facility] Address [address] [place] [address] Phone Care Team Providers Care Psych Social Worker Name Role Phone Doyr Ray MD Primary Care Provide r Allergies Active Allergy Reactions Criticality Noted Date Comments Amoxicillin-Pot Clavulanate Nausea And Vomiting 09/07/2012 Medications acetaminophen (TYLENOL) 500 mg tablet Take 1 tablet (500 mg total) by mouth See administration instructions. EVERY 6 TO 8 HOURS NEEDED FOR PAIN 1 Active albuterol HFA (PROAIR HFA ; PROVENTIL HFA ; VENTOLIN HFA) 90 mcg/actuation inhaler Inhale 2 puffs by mouth every 4 (four) hours if needed (Cough or Wheezing). 4 Active buPROPion XL (WELLBUTRIN XL) 150 mg 24 hr tablet Take 1 tablet (150 mg total) by mouth 1 (one) time each day in the evening. 1 Active buPROPion XL (WELLBUTRIN XL) 300 mg 24 hr tablet Take 1 tablet (300 mg total) by mouth 1 (one) time each day in the evening. 1 Active cyclobenzaprin e (FLEXERIL) 10 mg tablet Take 1 tablet (10 mg total) by mouth 3 (three) times a day. 1 Active cyclobenzaprin e (FLEXERIL) 5 mg tablet Take 1 tablet (5 mg total) by mouth 3 (three) times a day if needed for muscle spasms. 5 Active famotidine (PEPCID) 20 mg tablet Take 1 tablet (20 mg total) by mouth 2 (two) times a day. 1 Active gabapentin (NEURONTIN) 400 mg capsule Take 1 capsule (400 mg total) by mouth 2 (two) times a day. 1 Active hydrOXYzine pamoate (VISTARIL) 25 mg capsule Take 2 capsules (50 mg total) by mouth 2 (two) times a day if needed. 1 Active ibuprofen (ADVIL,MOTRIN) 800 mg tablet Take 1 tablet (800 mg total) by mouth 2 (two) times a day. AFTER MEALS 1 Active loratadine (CLARITIN) 10 mg tablet Take 1 tablet (10 mg total) by mouth 1 (one) time each day. 5 Active LORazepam (ATIVAN) 1 mg tablet Take 1 tablet (1 mg total) by mouth 1 (one) time each day if needed. Max Daily Amount: 1 mg 1 Active mirtazapine (REMERON) 7.5 mg tablet Take 1 tablet (7.5 mg total) by mouth at bedtime. 1 Active naloxone (Narcan) 4 mg/0.1 mL nasal spray PLEASE SEE ATTACHED FOR DETAILED DIRECTIONS 1 Active oxyCODONE (ROXICODONE) 5 mg immediate release tablet Take 1 tablet (5 mg total) by mouth every 4 (four) hours if needed (Pain). Max Daily Amount: 30 mg 1 Active PARoxetine (PAXIL) 30 mg tablet Take 1 tablet (30 mg total) by mouth 1 (one) time each day in the morning. 1 Active SUMAtriptan (IMITREX) 50 mg tablet Take 1 tablet (50 mg total) by mouth. AT ONSET OF MIGRAINE MAY REPEAT AFTER 2 HOURS IF NEEDED ,NOT TO EXCEED 200MG IN 24HRS 1 Active topiramate (TOPAMAX) 25 mg tablet Take 1 tablet (25 mg total) by mouth 1 (one) time each day. 1 Active traMADoL (ULTRAM) 50 mg tablet Take 1 tablet (50 mg total) by mouth every 12 (twelve) hours if needed. Max Daily Amount: 100 mg 1 Active traZODone (DESYREL) 150 mg tablet Take 1 tablet (150 mg total) by mouth at bedtime as needed. 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 Cocaine use 07/04/2012 Overview (02/16/2024): Component Latest Ref Rng 06/27/2012 12:31 PM DRUG NAME COCAINE CONFIRMATION RESULT NEGATIVE POSITIVE, CONFIRMED Chronic pelvic pain in female 07/04/2012 Abdominal pain 12/10/2011 Back pain 12/10/2011 CTS (carpal tunnel syndrome) 12/10/2011 Tobacco use disorder 12/10/2011 Arthritis of back 09/20/2011 Arthritis of knee 09/20/2011 Asthma 09/20/2011 Bursitis, hip 09/20/2011 Depression 09/20/2011 Fibromyalgia 09/20/2011 Panic attack 09/20/2011 Immunizations Name Administration Dates Next Due Hepatitis B (Cfbckzj-F-Ohovh , Recombivax HB-Adult) 19yo and older 01/18/2007,08/24/2006 Influenza trivalent, 0.5mL, preservative free (Fluarix; FluLaval; Fluzone) ages 6mo and older (Afluria) 3 years and older 04/17/2014,12/10/2011 Pneumococcal polysaccharide 23 valent (Pneumovax 23) 2yo and older 04/17/2014 Tdap Tetanus diptheria acell ular pertussis (Boostrix; Adacel) 7yo and older 12/10/2011 Surgical History Surgery Date Site/Laterality Comments HAND SURGERY 06/24/2014 Left PROCEDURE: HISTORICAL HAND SURGERY; COMMENT: Carpal tunnel revision, Dr. Luo TUBAL LIGATION PROCEDURE: HISTORICAL TUBAL LIGATION CARPAL TUNNEL RELEASE 12/25/2012 Right PROCEDURE: HISTORICAL CARPAL TUNNEL REL; COMMENT: Dr. Luo OTHER SURGICAL HISTORY 09/25/2020 Left PROCEDURE: [place] NEUROPLASTY &/TRANSPOSITION ULNAR NERVE ELBOW; COMMENT: Submuscular Transposition, Dr. Luo OTHER SURGICAL HISTORY 04/14/2012 Left PROCEDURE: [place] DCMPRN FASCT F/ARM&WRST FLXR/XTNSR W/O DBRDMT; COMMENT: 1st [place] Compartment/[place] Quervain's Release, Dr. Luo Medical History Medical History Date Comments Depression DX:Depression Arthritis DX:Arthritis Carpal tunnel syndrome DX:Carpal tunnel syndrome Asthma DX:Asthma Anxiety state DX:Anxiety state Bronchitis DX:Bronchitis Esophageal reflux DX:Esophageal reflux Family History Relation Name Status Comments Brother 1 Alive renal stone Brother 2 Alive renal stone Brother 3 Alive Brother 4 Alive Brother 5 Alive Brother 6 Daughter 1 Alive asthma Daughter 2 Alive Father CVA and on [place] Mother Alive htn and osteopo rosis Sister 1 Alive renal stone Sister 2 Alive renal stone Sister 3 Alive Sister 4 Alive Sister 5 Alive Sister 6 Alive Sister 7 Alive Son Alive Social History Tobacco Use Types Packs/Day Years Used Date Smoking Tobacco: Every Day Cigarettes Smokeless Tobacco: Never Alcohol Use Standard Drinks/Week Comments No 0 (1 standard drink = 0.6 oz pur e alcohol) Comments Unknown Sex and Gender Information Value Date Recorded Sex Assigned at Not on file Legal Sex Female 11:38 PM EST Gender Identity Not on file Sexual Orientation Not on file Obstetrics History Plan of Treatment Health Maintenance Due Date Last Done Comments Breast Cancer Screening 1975 Hepatitis B Vaccines (3 of 3 - 19+ 3-dose series) 03/15/2007 01/18/2007, 08/24/2006 DTaP,Tdap,and Td Vaccines (2 - Td or Tdap) 01/07/2012 12/10/2011 Cervical Cancer Screening: P ap Smear 06/08/2014 06/09/2011 Pneumococcal Vaccine: 50+ Years (2 of 2 - PCV) 04/17/2015 04/17/2014 Pneumococcal Vaccine: Pediatrics (0 to 5 Years) and At-Risk Patients (6 to 64 Years) (2 of 2 - PCV) 04/17/2015 04/17/2014 Colorectal Cancer Screening: Colonoscopy 03/07/2022 Depression Screening 03/07/2022 HIV Screening 03/07/2022 Hepatitis C Screening 03/07/2022 Social Influencers of Health Screening 03/07/2022 Zoster Vaccines (1 of 2) 07/26/2023 COVID-19 Vaccine (2023-2 5 season) 2023 Influenza Vaccine (#1) 2023 5, 12/10/2011 HIB Vaccines Aged Out No longer eligi ble based on patient's age to complete this topic HPV Vaccines Aged Out No longer eligi ble based on patient's age to complete this topic Hepatitis A Vaccines Aged Out No long er eligible based on patient's age to complete this topic IPV Vaccines Aged Out No longer eligi ble based on patient's age to complete this topic MMR Vaccines Aged Out No longer eligi ble based on patient's age to complete this topic Meningococcal ACWY Vaccine Aged Out N o longer eligible based on patient's age to complete this topic Meningococcal B Vacine Aged Out No lo nger eligible based on patient's age to complete this topic RSV Immunization Patients Under 20 months Aged Out No longer eligible b ased on patient's age to complete this topic Varicella Vaccines Aged Out No longer eligible based on patient's age to complete this topic Procedures Procedure Name Priority Date/Time Associated Diagnosis Comments PAP SMEAR Routine 06/09/2011 from Last 3 Months or Most Recently Relevant to Health Maintenance Results * Pap Smear (06/09/2011) Pap smear No interpretation , abstracted Historical Provider HEALTH MAINTENANCE Final Result from Last 3 Months or Most Recently Relevant to Health Maintenance Care Teams Psych Social Worker Relationship Specialty Start Date End Date Dory Ray MD [address] [place] [phone] PCP - General Internal Medicine 12/30/20
--- OUTSIDE RECORDS SUMMARY | 2024-05-14 10:15 | XMS_ITS | Clinical Summary ---
Author Organization [employer] Address [address] [facility] [address] [place] [address] Care Team Providers Care Highway Maintenance Supervisor Name Role Phone Dory Ray MD Primary Care Provide r Allergies No known active allergies Medications * This document contains information received from the source organization and may not represent a complete record from that organization. fluticasone (Flonase Allergy Relief) 50 MCG/ACT nasal spray Administer 2 sprays into affected nostril(s) at bed time. 022 Active Ventolin HFA 108 (90 Base) MCG/ACT inhalerIndication s:Mild intermittent asthma without complication INHALE 2 PUFFS BY MOUTH EVERY 4 HOURS NEEDED FOR WHEEZING 18 g 1 023 Active albuterol (2.5 MG/3ML) 0.083% nebulizer solutionIndicatio ns:Mild intermittent asthma with exacerbation Take 3 mL (2.5 mg) by nebulization every 4 (four) hours if needed for wheezing. 75 mL 11 023 Active chlorhexidine (Peridex) 0.12 % solution USE 15 ML IN THE MOUTH OR THROAT IF NEEDED IN THE MORNING, AT NOON, AND AT BEDTIME (PROPHYLAXIS) FOR UP TO 5 DAYS. 473 mL 023 Active baclofen (Lioresal) 10 MG tabletIndications :Strain of neck muscle, initial encounter,Neck pain TAKE 1 TABLET BY MOUTH EVERY 12 (TWELVE) HOURS IF NEEDED FOR MUSCLE SPASMS FOR UP TO 15 DAYS. 30 tablet 023 Active Myrbetriq 50 MG 24 hr tablet TAKE 1 TABLET BY MOUTH EVERY DAY 023 Active Elmiron 100 MG capsule TAKE 2 CAPSULES BY MOUTH EVERY DAY IN THE MORNING AND TAKE 1 CAPSULE AT NIGHT 023 Active buPROPion XL (Wellbutrin XL) 300 MG 24 hr tabletIndications :Recurrent major depressive episodes, moderate (CMS/HCC) TAKE 1 TABLET BY MOUTH EVERY DAY IN THE MORNING 90 tablet 1 Active permethrin (Elimite) 5 % creamIndications: Rash and nonspecific skin eruption apply to skin from hairline to toes and wash off 8-10 hours later 60 g 024 Active diphenhydrAMINE (BENADryl) 2 % cream Apply topically if needed in the morning, at noon, and at bedtime for itching. 56 g 1 024 2024 Active diphenhydrAMINE (BENADryl) 25 MG tabletIndications :Rash and nonspecific skin eruption Take 1 tablet (25 mg) by mouth every 6 (six) hours if needed for itching. 30 tablet 024 Active butalbital-acetam inophen-caffeine 50-325-40 MG tabletIndications :Chronic nonintractable headache, unspecified headache type TAKE 1 TABLET BY MOUTH EVERY 4 HOURS 20 tablet 1 024 Active loratadine (Claritin) 10 MG tablet TAKE 1 TABLET BY MOUTH EVERY DAY NEEDED FOR ALLERGIES 90 tablet 3 024 Active Diclofenac Sodium 1 % gel Apply 2 g topically if needed in the morning, at noon, in the evening, and at bedtime (pain). 150 g 3 024 Active acetaminophen (Tylenol 8 Hour) 650 MG ER tablet Take 1 tablet (650 mg) by mouth every 8 (eight) hours if needed for mild pain. Do not crush, chew, or split. 60 tablet 2 024 2024 Active hydroCHLOROthiazi de (HYDRODiuril) 25 MG tabletIndications :Essential hypertension TAKE 1 TABLET BY MOUTH EVERY DAY IN THE MORNING 90 tablet 1 024 Active budesonide-formot kori (Symbicort) 160-4.5 MCG/ACT inhalerIndication s:Asthma-chronic obstructive pulmonary disease overlap syndrome (CMS/HCC) Inhale 2 puffs in the morning and at bedtime. Rinse mouth with water after use to reduce aftertaste and incidence of candidiasis. Do not swallow. 1 each 11 024 2024 Active traZODone (Desyrel) 50 MG tabletIndications :Recurrent major depressive episodes, moderate (CMS/HCC) TAKE 1 TABLET BY MOUTH EVERY DAY AT BEDTIME NEEDED FOR SLEEP 90 tablet 1 Active cyclobenzaprine (Flexeril) 10 MG tabletIndications :Chronic midline thoracic back pain,Neck pain TAKE 1 TABLET BY MOUTH THREE TIMES DAILY IN THE MORNING, AT NOON, AND AT BEDTIME NEEDED FOR MUSCLE SPASMS 60 tablet 2 Active topiramate (Topamax) 50 MG tabletIndications :Chronic migraine with aura without status migrainosus, not intractable Take 50 mg by mouth 2 times daily. 30 tablet 1 024 2024 Active SUMAtriptan (Imitrex) 50 MG tabletIndications :Chronic migraine with aura without status migrainosus, not intractable Take 1 tablet (50 mg) by mouth 1 (one) time if needed for migraine for up to 18 doses. May repeat dose once in 2 hours if no relief. Do not exceed 2 doses in 24 hours. 9 tablet 1 Active pantoprazole (Protonix) 40 MG EC tabletIndications :Epigastric pain Take 1 tablet (40 mg) by mouth before breakfast. Do not crush, chew, or split. 30 tablet 11 024 2024 Active lidocaine (Lidoderm) 5 % patchIndications: Chronic right-sided low back pain with right-sided sciatica APPLY 1 PATCH TOPICALLY ONCE PER DAY. REMOVE & DISCARD PATCH WITHIN 12 HOURS OR DIRECTED BY MD. 30 patch 1 Active ibuprofen 800 MG tabletIndications :Chronic right-sided low back pain with right-sided sciatica TAKE 1 TABLET BY MOUTH EVERY 8 HOURS IF NEEDED FOR MILD OR MODERATE PAIN 90 tablet Active betamethasone, augmented, (Diprolene) 0.05 % ointmentIndicatio ns:Dermatitis Apply topically 2 times daily. 50 g 2 Active nicotine (Nicoderm, Step 2) 14 MG/24HR patch PLACE 1 PATCH ON THE SKIN 1 TIME EACH DAY AT THE SAME TIME. 42 patch 1 024 Active gabapentin (Neurontin) 800 MG tabletIndications :Migraine without status migrainosus, not intractable, unspecified migraine type TAKE 1 TABLET BY MOUTH THREE TIMES DAILY IN THE MORNING, AT NOON, AND AT BEDTIME 90 tablet 1 025 Active nicotine polacrilex (Commit) 4 MG lozenge DISSOLVE 1 LOZENGE (4 MG) IN THE MOUTH EVERY 2 (TWO) HOURS IF NEEDED FOR SMOKING CESSATION. 144 lozenge 5 025 Active traMADol (Ultram) 50 MG tabletIndications :Chronic right-sided low back pain with right-sided sciatica TAKE 1 TABLET BY MOUTH EVERY 6 HOURS NEEDED FOR SEVERE PAIN 112 tablet 025 2024 Active mirtazapine (Remeron) 45 MG tablet TAKE 1 TABLET BY MOUTH EVERYDAY AT BEDTIME 30 tablet 1 025 Active hydrOXYzine HCl (Atarax) 25 MG tablet Take 1-2 tablets by mouth if needed in the morning and at bedtime for anxiety (or insomnia). 025 Active QUEtiapine (SEROquel) 25 MG tablet Take 1-2 tablets by mouth if needed at bedtime (insomina). 025 Active ziprasidone (Geodon) 40 MG capsule Take 1 capsule by mouth with breakfast and with evening meal. 025 Active zolpidem (Ambien) 5 MG tablet Take 5 mg by mouth at bedtime. 024 Active LORazepam (Ativan) 0.5 MG tablet Take 1 tablet by mouth if needed in the morning and at bedtime for anxiety (severe anxiety). Active nicotine polacrilex (Commit) 4 MG lozenge Dissolve 1 lozenge (4 mg) in the mouth every 2 (two) hours if needed for smoking cessation. 144 lozenge 5 024 2024 Discontinued lidocaine (Xylocaine) 2 % solution APPLY TO AFFECTED MUCOSAL AREA 2 TIMES A DAY NEEDED FOR MOUTH PAIN 024 2024 Discontinued(M ed list cleanup (will not trigger notification to Pharmacy)) LORazepam (Ativan) 0.5 MG tablet Take one tablet PO 30 min prior to MRI and repeat prior to MRI if needed 2 tablet 024 2024 Discontinued(M ed list cleanup (will not trigger notification to Pharmacy)) hydrOXYzine pamoate (Vistaril) 25 MG capsuleIndication s:Mixed anxiety and depressive disorder Take 2 capsules (50 mg) by mouth every 12 (twelve) hours if needed for itching. TAKE 1 CAPSULE BY MOUTH TWICE A DAY NEEDED FOR ANXIETY 60 capsule 024 2024 Discontinued(M ed list cleanup (will not trigger notification to Pharmacy)) LORazepam (Ativan) 1 MG tabletIndications :Anxiety TAKE 1 TABLET BY MOUTH EVERY DAY AT BEDTIME NEEDED FOR ANXIETY. 28 tablet 2024 Discontinued(M ed list cleanup (will not trigger notification to Pharmacy)) mirtazapine (Remeron) 45 MG tablet TAKE 1 TABLET BY MOUTH EVERYDAY AT BEDTIME 30 tablet 1 024 2024 Discontinued traMADol (Ultram) 50 MG tabletIndications :Chronic right-sided low back pain with right-sided sciatica TAKE 1 TABLET BY MOUTH EVERY 6 HOURS NEEDED FOR SEVERE PAIN 112 tablet 024 2024 Discontinued Active Problems Problem Noted Date Diagnosed Date Vaginal discharge 02/28/2024 Assessment & Plan (02/28/2024 4:36 PM EST): BV panel ordered I will treat empirically with Metrogel Patient will be contacted with results Chronic migraine with aura w ithout status migrainosus, not intractable 01/10/2024 Assessment & Plan (01/10/2024 1:51 PM EDT): I advise to avoid migraine triggers like red wine, chocolate, cheese, strong perfumes Screening for lung cancer 01/10/2024 Assessment & Plan (01/10/2024 1:51 PM EDT): Lung cancer screening form filled, patient will be refer for lung cancer screening Long-term current use of opiate analgesic 2023 Overview (03/15/2024): Medication: Tramadol 50mg Q6H PRN Indication: bulging lumbar disc, fibromyalgia Last ACTIVITY SPECIALIST Agreement: 04/13/23 Additional considerations/risk factors: BZO Tier II (ACTIVITY SPECIALIST visits Q3 months) - last evaluated Mar 2024 by PCP Long-term current use of benzodiazepine 12/13/19 Dysuria 12/01/2023 Asymptomatic microscopic hematuria 12/01/2023 Assessment & Plan (12/01/2023 12:33 PM EDT): Continue to follow with urology Acute maxillary sinusitis 12/01/2023 Tooth infection 08/30/2023 Abnormal uterine bleeding (AUB) 08/26/2023 Acute right flank pain 08/26/2023 Hematuria 08/26/2023 Mouth pain 08/26/2023 Strain of gastrocnemius tendon of right lower ex tremity 08/26/2023 Toothache 08/26/2023 Vulvovaginitis 08/26/2023 Abdominal pain 08/26/2023 Assessment & Plan (02/28/2024 4:34 PM EST): C/w current interventions I advise to contact GI office to set up her appointment Bladder pain 08/26/2023 Urinary frequency 08/26/2023 Rash and nonspecific skin eruption 07/15/2023 Chronic nonintractable headache 07/15/2023 Encounter for preventive health examination 07/03 Assessment & Plan (07/15/2023 2:41 PM EDT): See HPI Bulging lumbar disc 06/14/2023 Assessment & Plan (03/15/2024 5:01 PM EST): History of chronic pain associated with fibromyalgia and lumbar back pain Good engagement and participation with Group Medical Visit model Encouraged multifactorial approach to pain control including pharm and non-pharm modalities Continues with COT. See auto service representative for urine/pill count. Assessment & Plan (01/10/2024 4:59 PM EDT): History of chronic pain associated with fibromyalgia and lumbar back pain Good engagement and participation with Group Medical Visit model Encouraged multifactorial approach to pain control including pharm and non-pharm modalities Continues with COT, UTOX and pill count as expected Assessment & Plan (10/11/2023 3:48 PM EDT): History of chronic pain associated with fibromyalgia and lumbar back pain Good engagement and participation with Group Medical Visit model Encouraged multifactorial approach to pain control including pharm and non-pharm modalities Continues with COT, UTOX and pill count as expected Assessment & Plan (08/16/2023 1:22 PM EDT): History of chronic pain associated with fibromyalgia and lumbar back pain Good engagement and participation with Group Medical Visit model Encouraged multifactorial approach to pain control including pharm and non-pharm modalities Continues with COT, UTOX and pill count as expected Assessment & Plan (07/14/2023 10:21 AM EDT): History of chronic pain associated with fibromyalgia and lumbar back pain Good engagement and participation with Group Medical Visit model Encouraged multifactorial approach to pain control including pharm and non-pharm modalities Continues with COT, UTOX and pill count as expected Assessment & Plan (06/14/2023 1:42 PM EDT): History of chronic pain associated with fibromyalgia and lumbar back pain Good engagement and participation with Group Medical Visit model - today was first visit. Encouraged multifactorial approach to pain control including pharm and non-pharm modalities Continues with COT, UTOX and pill count as expected Epigastric pain 05/31/2023 Assessment & Plan (05/31/2023 9:57 AM EST): I advise patient to avoid NSAIDs, spicy and acid food, I advise to eat at the same time every day, I advise to elevate the head of the bed and take medications as prescribe Diastasis of rectus abdominis 05/31/2023 Assessment & Plan (05/31/2023 10:00 AM EST): Weight reduction was advise Smoking 03/24/2023 Bilateral lower extremity pain 02/21/2023 Assessment & Plan (02/21/2023 9:46 AM EST): Clinical picture consistent with neuropathy or fibromlagia Chronic midline thoracic back pain 02/21/2023 Assessment & Plan (08/30/2023 10:06 AM EDT): Medications as above MRI ordered today Assessment & Plan (02/21/2023 9:49 AM EST): Patient reports tramadol does help her I went up on dose to Q 6 hrs instead of Q 8hrs, I explain to her this is the max dose Currently she is on every 7 days to come back for prescription I explain to her she can be put back to every 28 days after she comes to COT appointment and everything is in order Patient declines local injections and pain management referral Weight gain 12/14/2022 Assessment & Plan (05/31/2023 9:57 AM EST): TSH will be check with labs Assessment & Plan (12/14/2022 4:22 PM EDT): TSH will be check Counseling about healthy diet done today Stress incontinence of urine 12/14/2022 Assessment & Plan (12/14/2022 4:24 PM EDT): Urine pads are prescribe today Colon cancer screening 12/14/2022 Interstitial cystitis 11/10/2022 Neck pain 08/12/2022 Assessment & Plan (08/30/2023 10:05 AM EDT): Apply heat on affected area Acetaminophen PRN Flexeril 10mg Q 8hrs (patient knows abut side effects) Lidocaine patch Chest discomfort 04/06/2022 Assessment & Plan (04/06/2022 2:38 PM EST): Likely costochondritis. Recommend ibuprofen prn pain, warm compress, rest. COVID and flu rapid are negative. EKG without evidence of ischemia or infarction. ER precautions discussed. Chronic bronchitis 03/04/2022 Vascular insufficiency 03/04/2022 Asthma-chronic obstructive p ulmonary disease overlap syndrome 03/04/2022 Heartburn 03/04/2022 Chronic pain of left knee 03/04/2022 Costal chondritis 03/04/2022 Polyp of corpus uteri 03/04/2022 Palpitations 03/04/2022 UTI symptoms 03/04/2022 Assessment & Plan (02/28/2024 4:36 PM EST): UA and culture Essential hypertension 03/04/2022 Assessment & Plan (12/01/2023 12:33 PM EDT): I advise: - Aerobic exercise to reduce BP. Initial goal of 30 min walk 3-5x/week. Increase as tolerated. - low-sodium diet (goal: <2g/day) and heart healthy diet such as DASH to reduce BP and prevent ASCVD. - Home BP monitoring 1-2 x day with goal of <140/90. - Seek immediate medical attention for chest pain, palpitations, SOB, syncope, or sudden changes in mental status. - Do not change or discontinue current prescriptions without first consulting health care provider Assessment & Plan (08/30/2023 10:05 AM EDT): - Aerobic exercise to reduce BP. Initial goal of 30 min walk 3-5x/week. Increase as tolerated. - low-sodium diet (goal: <2g/day) and heart healthy diet such as DASH to reduce BP and prevent ASCVD. - Home BP monitoring 1-2 x day with goal of <140/90. - Seek immediate medical attention for chest pain, palpitations, SOB, syncope, or sudden changes in mental status. - Do not change or discontinue current prescriptions without first consulting health care provider Assessment & Plan (05/31/2023 9:57 AM EST): Maintenance: BMP: ordered today Lipid Panel: ordered today ASCVD Risk: Calculate pending updated labs - Aerobic exercise to reduce BP. Initial goal of 30 min walk 3-5x/week. Increase as tolerated. - low-sodium diet (goal: <2g/day) and heart healthy diet such as DASH to reduce BP and prevent ASCVD. - Home BP monitoring 1-2 x day with goal of <140/90. - Seek immediate medical attention for chest pain, palpitations, SOB, syncope, or sudden changes in mental status. - Do not change or discontinue current prescriptions without first consulting health care provider Assessment & Plan (08/12/2022 10:32 AM EDT): - Aerobic exercise to reduce BP. Initial goal of 30 min walk 3-5x/week. Increase as tolerated. - low-sodium diet (goal: <2g/day) and heart healthy diet such as DASH to reduce BP and prevent ASCVD. - Home BP monitoring 1-2 x day with goal of <140/90. - Seek immediate medical attention for chest pain, palpitations, SOB, syncope, or sudden changes in mental status. - Do not change or discontinue current prescriptions without first consulting health care provider Assessment & Plan (03/29/2022 11:07 PM EST): -BP above goal in office, pt reports above goal at home as well -INCREASE hydrochlorothiazide to 25mg daily. Reviewed med safety and SE. -Encouraged to continue with low salt diet and monitoring BP levels at home -Goal 150 mins of exercise weekly -ED/urgent care precautions reviewed Pain in female pelvis 08/04/2017 Anxiety 02/11/2017 Assessment & Plan (12/14/2022 4:23 PM EDT): Continue to follow with therapist Patient reports she takes lorazepam once a day she does not understand why is not on the urine For now I will continue to prescribe lorazepam Chronic low back pain 08/25/2016 Assessment & Plan (01/10/2024 1:51 PM EDT): C/w acetaminophen alternate with tramadol and lidocaine patches Assessment & Plan (08/12/2022 10:32 AM EDT): Continue with current interventions + today referral to orthopedics for further input Assessment & Plan (03/29/2022 11:08 PM EST): -Discussed multimodal approach to the treatment of chronic pain including use of pharmacologic and non-pharmacologic options, with the goal of improving overall functioning and quality of life -Pt has trialed a variety of options including PO medication, topical meds, physical therapy, pain management, lumbar injections -START capsaicin topical, reviewed med safety and use Follow up in 3 months for back pain, sooner as needed. Rectal hemorrhage 08/13/2016 Constipation 08/13/2016 Seasonal allergic rhinitis 08/13/2016 Hip pain, chronic, left 02/10/2016 Generalized anxiety disorder 12/11/2015 Recurrent major depressive episodes, moderate Assessment & Plan (05/31/2023 9:59 AM EST): Continue to follow with new therapist C/w current medication management Assessment & Plan (02/02/2023 8:29 AM EDT): Marlene reports anhedonia, depression, sleep disturbance, lack of energy, poor appetite, guilt, moving and taking slowly. She also reports anxiousness, inability to control worries, worrying about a lot of different things, difficulty relaxing, restlessness, and fearfulness. She reports everyday life, and tasks being extremely difficult due to symptoms. Marlene agrees to go in person to [facility] to follow up on status of a therapist. She also agrees to follow up in 2 weeks via telehealth for support. She agrees to come in person if needed, to sign a release for me to speak with N. I also recommended acupuncture and discussed sleep hygiene. PHQ9: 17 GAD7: 17 Paresthesia of foot, bilateral 11/03/2015 Pulmonary nodule 08/11/2015 Hand pain 05/13/2015 Fibromyalgia 05/13/2015 Female dyspareunia 05/13/2015 Tobacco use 05/13/2015 Headache 11/04/2011 Anemia 11/04/2011 Mixed anxiety and depressive disorder 11/04/2011 Assessment & Plan (01/10/2024 1:53 PM EDT): Patient has upcoming psychiatrist appointment on 02/2024 I will increase for now hydroxyzine to 50mg BID C/w rest of mental health medications Carpal tunnel syndrome 01/02/2009 Resolved Problems Problem Noted Date Diagnosed Date Resolved Date Infected tooth 03/24/2023 07/14/2023 Oral thrush 03/24/2023 07/14/2023 Assessment & Plan (05/31/2023 9:59 AM EST): Nystatin and clotrimazole chewable tablets already prescribed, I will prescribed today fluconazole 200mg for 14 days Acute right ankle pain 01/11/202307/13 Urinary frequency 01/11/2023 07/14/2023 Dental caries 12/07/2022 07/14/2023 Fibromyositis 03/29/2022 03/29/2022 Upper respiratory infection 03/04/2022 03/29/2022 Chest pain 01/18/2018 03/29/2022 Migraine 01/18/2018 03/29/2022 Wheezing 08/13/2016 03/29/2022 Encounters Date Type Department Care Team Description 05/03/2024 Refill [facility] [address] [place] [address] Dory Ray MD Essential hypertension 04/17/2024 Telephone [facility] [address] [place] [address] Dustin Hickey MA Durable Medical Equipment 04/17/2024 Telephone [facility] [address] [place] [address] Dory Ray MD ER Follow-up 04/16/2024 Refill [facility] [address] [place] [address] Katerine Killian MD Chronic right-sided low back pain with right-sided sciatica 04/16/2024 Refill [facility] [address] [place] [address] Dory Ray MD 04/13/2024 Orders Only GENERIC EXTERNAL DATA DEPARTMENT Provider, Generic External Data 04/12/2024 Orders Only GENERIC EXTERNAL DATA DEPARTMENT Provider, Generic External Data 04/12/2024 Telephone [facility] [address] [place] [address] Dory Ray MD Nurse Triage 04/11/2024 Refill [facility] [address] [place] [address] Dory Ray MD Migraine without status migrainosus, not intractable, unspecified migraine type 04/10/2024 Refill [facility] [address] [place] [address] Dory Ray MD Chronic right-sided low back pain with right-sided sciatica 04/09/2024 Orders Only [facility] External Provider, [facility] 04/08/2024 Refill [facility] [address] [place] [address] Dory Ray MD Chronic right-sided low back pain with right-sided sciatica; Essential hypertension 03/24/2024 Refill [facility] [address] [place] [address] Dory Ray MD 03/23/2024 Orders Only [facility] External Provider, [facility] 03/21/2024 Telephone [facility] [address] [place] [address] Dory Ray MD Durable Medical Equipment 03/20/2024 Telephone [facility] [address] [place] [address] Dory Ray MD Med Refill 03/19/2024 Refill [facility] [address] [place] [address] Dory Ray MD Essential hypertension 03/19/2024 Refill [facility] [address] [place] [address] Dory Ray MD Chronic right-sided low back pain with right-sided sciatica 03/13/2024 11:00 AM EST Office Visit [facility] [address] [place] [address] Emilia De La Torre, RUN BOAT OPERATOR Bulging lumbar disc (Primary Dx); Fibromyalgia; Long-term current use of opiate analgesic 03/13/2024 Telephone [facility] [address] [place] [address] Rosalinda Fields, DARWIN ACTIVITY SPECIALIST Renewal today; Recomend ACTIVITY SPECIALIST 2 Level 03/13/2024 Travel 03/08/2024 Refill [facility] [address] [place] [address] Cece Velasquez MD Dermatitis 03/08/2024 Refill [facility] [address] [place] [address] Dory Ray MD Chronic right-sided low back pain with right-sided sciatica; Dermatitis 02/29/2024 Telephone [facility] [address] [place] [id number] Dory Ray MD callback requested 02/28/2024 10:00 AM EST Office Visit [address] [address] Dory Ray MD Vaginal discharge (Primary Dx); Left upper quadrant abdominal pain; Acute maxillary sinusitis, recurrence not specified; Migraine without status migrainosus, not intractable, unspecified migraine type; UTI symptoms 02/28/2024 Travel 02/22/2024 Refill [facility] [address] [place] [phone] Rosalinda Fields RN Anxiety; Chronic right-sided low back pain with right-sided sciatica 02/22/2024 Refill [facility] [address], [place] [phone] Dory aRy MD Chronic pain syndrome; Anxiety 02/22/2024 Refill [facility] [address] [place] [id number] Dory Ray MD Chronic right-sided low back pain with right-sided sciatica 02/17/2024 Patient Outreach [address] [address] Dory Ray MD Pre-visit Planning (SDOH screening completed on 08/19/2023) 02/14/[address] [address] Dory Ray MD Chronic right-sided low back pain with right-sided sciatica from Last 3 Months Immunizations Name Administration Dates Next Due Hep B, adult 01/18/2007,08/24/2006 Influenza High-dose Quadriva lent Preservative Free 04/17/2014 Influenza injectable quadriv alent IIV4 with preservative 01/07/2017 Influenza injectable quadriv alent preservative free 01/08/2022,02/26/2020,03/07/2019,05/13 Influenza, IIV3, injectable 04/17/2014, 2 Influenza, injectable, quadr ivalent, preservative free, pediatric 12/10/2011 Moderna Covid-19 Vaccine 12+ 04/05/2021,08/31/19 21,08/06/2020 Pfizer Covid-19 Vaccine 12+ 01/04/2023 Pfizer Covid-19 Vaccine 12+ Bivalent 05/17/2022 Pneumococcal Conjugate PCV 20 09/05/2022 Pneumococcal Polysaccharide PPSV23 03/07/2019, Tdap 07/15/2023,12/10/2011 Family History Medical History Relation Name Comments Blindness Mother in one eye, ananth son unknown Relation Name Status Comments Mother Social History Tobacco Use Types Packs/Day Years Used Date Smoking Tobacco: Every Day Cigarettes Passive Smoke Exposure: Current Smokeless Tobacco: Never Tobacco Cessation:Ready to Q uit: Not Asked; Counseling Given: Not Answered Alcohol Use Standard Drinks/Week Comments Never 0 [...] with others, in a hotel, in a senior care, living outside on the street, on a beach, in a car, or in a park 08/19/[address] you li ve. Do you have problems with any of the following? None of the above;Lead Natural Steps or Pipes;Pests such as bugs, ants, or [...] not to disclose 2021 10:14 AM EDT Last Filed Vital Signs Vital Sign Reading Time Taken Comments Blood Pressure 136/94 02/28/2024 9:58 AM EST Pulse 94 02/28/2024 9:58 AM EST Temperature 37.2 ??C (98.9 ??F) 02/28/2024 9:58 AM ES T Respiratory Rate 18 02/28/2024 9:58 AM EST Oxygen Saturation 93% 02/28/2024 9:58 AM EST Inhaled Oxygen Concentration - - Weight 68.7 kg (151 lb 6.4 oz) 02/28/2024 9:58 A M EST Height 152.4 cm (5') 02/28/2024 9:58 AM EST Body Mass Index 29.57 02/28/2024 9:58 AM EST Plan of Treatment Upcoming Encounters Date Type Department Care Team (Late st Contact Info) Description 05/15/2024 9:30 AM EST Office Visit [address] [address] Dory Ray MD [address] [place] [phone] 05/15/2024 11:00 AM EST Office Visit [address] [address] 05/30/2024 10:15 AM EST Office Visit [address] [address] Dory Ray MD [address] [place] [phone] Health Maintenance Due Date Last Done Comments CT Colonography 1975 Colonoscopy 1975 Dental Prophylaxis 1975 Dental X-Ray: Full Mouth 1973 FIT 1975 FOBT 1975 HIV Screening 1975 Sigmoidoscopy 1975 Family Planning (PISQ) 1988 Hepatitis C Screening 07/26/1991 Hepatitis B Vaccines (3 of 3 - 19+ 3-dose series) 03/15/2007 01/18/2007, 08/24/2006 Dental Oral Exam 01/23/2017 07/23/2016, 01/17/2015 Dental X-Ray: Bitewings 10/15/2019 10/13/2018 COVID-19 Vaccine ( season) 2023 01/04/2023, 05/17/2022, 04/05/2021, Additional history exists Zoster Vaccines (2 of 2) 05/08/2024 03/13/2024 Depression Monitoring (PHQ-9) 07/10/2024 01/10/2024, 01/10/2024 SDOH Screening 08/18/2024 08/19/2023 Depression Screening 01/09/2025 01/10/2024, 01/10/20 24 Alcohol/Substance Use Screening 02/27/2025 02/28/2024 Tobacco Screening 02/27/2025 02/28/2024 Mammogram 04/09/2025 04/09/2024, 05/06, 02/18/2022, Additional history exists Colorectal Cancer Screening 12/27/2025 FIT DNA/Cologuard 12/27/2025 12/27/2022 Pap Smear 02/21/2026 02/21/2023, 02/17/2017 Lipid Panel 06/15/2028 06/16/2023, 07/0 09/2021, 01/28/2021 Cervical Cancer Screening 07/18/2028 HPV/Cotest 07/18/2028 07/19/2023, 02/21/2023 DTaP/Tdap/Td Vaccines (3 - Td or Tdap) 07/14/2033 07/15/2023, 12/10/2011 RSV Patients and Patients Aged 60 years or older (1 - 1-dose 75+ series) 2048 Pneumococcal Vaccine: 50+ Years Completed 09/05/2022, 03/07/2019, 04/17/2014 Influenza Vaccine Completed 03/13/2024, , 02/26/2020, Additional history exists HIB Vaccines Aged Out No longer eligi [...] patient's age to complete this topic Meningococcal Vaccine Aged Out No gladys caron eligible based on patient's age to complete this topic RSV under 20 months Aged Out No longe r eligible based on patient's age to complete this topic Rotavirus Vaccines Aged Out No longer eligible based on patient's age to complete this topic Goals Goal Patient Goal Type Associated Problems Recent Progress Patient-Stated? Author Smoking cessation General No change(2023 2:25 PM EDT) No Kiah Cisneros, MichaelD Note: Maintain current progress, smoke 8 cigarettes per day or less. Procedures Procedure Name Priority Date/Time Associated Diagnosis Comments MR BRAIN WO CONTRAST Routine 04/14/2024 1:23 PM EST CTA HEAD STROKE W AND WO CONTRAST Routine 04/13/2024 7:07 PM EST DRUG MONITOR, PANEL 1, SCREEN, URINE Routine 04/13/2024 6:20 PM EST URINALYSIS, COMPLETE, WITH REFLEX TO CULTURE Routine 04/13/2024 6:20 PM EST HIGH SENSITIVITY TROPONIN I Routine 04/12/2024 10:00 AM EST MAGNESIUM Routine 04/12/2024 10:00 AM EST BASIC METABOLIC PANEL Routine 04/12/2024 10:00 AM EST HEPATIC FUNCTION PANEL Routine 04/12/2024 10:00 AM EST PROTHROMBIN TIME-INR Routine 04/12/2024 10:00 AM EST CBC WITH AUTO DIFFERENTIAL Routine 04/12/2024 10:00 AM EST XR CHEST 2 VIEWS Routine 04/12/2024 10:0 0 AM EST SARS COV2/INFLUENZA A/B AND RSV RNA QL NAAT Routine 04/12/2024 10:00 AM EST BI MR BREAST W AND WO CONTRAST BILATERAL Routine 04/09/2024 8:56 AM EST US PELVIS TRANSVAGINAL Routine 03/23/2024 11:02 AM EST POCT MARÍA-14 URINE DRUG SCREEN Routine 03/13/2024 1:12 PM EST Bulging lumbar disc Fibromyalgia Long-term current use of opiate analgesic POCT URINALYSIS DIPSTICK Routine 02/28/2024 10:54 AM EST Vaginal discharge BACTERIAL VAGINOSIS PANEL Routine 02/28/2024 12:00 AM EST Vaginal discharge CULTURE, URINE, ROUTINE Routine 02/28/2024 12:00 AM EST Vaginal discharge HPV MRNA E6/E7 REFLEX TO HPV 16, 18/45 Routine 07/19/2023 9:21 AM EDT LIPID PANEL, STANDARD Routine 06/16/2023 10:01 AM EDT Essential hypertension PAP SMEAR Routine 02/21/2023 2:25 PM EST LAB COLOGUARD?? COLON CANCER SCREEN Routine 12/27/2022 9:47 AM EDT Colon cancer screening BITEWING - SINGLE RADIOGRAPHIC IMAGE Routine 10/13/2018 12:00 AM EDT PERIODIC ORAL EVALUATION - ESTABLISHED PATIENT Routine 07/23/2016 12:00 AM EDT from Last 3 Months or Most Recently Relevant to Health Maintenance Results * MR Brain w/o Contrast (04/14/2024 1:23 PM EST) Anatomical Region Laterality Modality Brain Magnetic Resonan ce 04/14/2024 1:23 PM EST Narrative 04/14/2024 1:25 PM EST ? [facility] ?[address] ?[place] [address] ? Magnetic Resonance Report ? Signed ? Patient: Kurt,Marlene ?MR#: [id number] ?? [id number] ? : 1975 ?Acct:[id number] ? Age/Sex: 48 / F ?ADM Date: 04/13/24 ? Loc: HO.IMC ?453-1 ? Attending Dr: Rohini STOCKTON ? Ordering Physician: Nader Stringer MD ?? Date of Service: 04/13/24 ?? Procedure(s): MR head/brain wo con ?? Accession Number(s): [id number] ? cc: Dory Ray MD; Nader Stringer MD ? CLINICAL HISTORY: slurred speech ? MR Brain without gadolinium ? Comparison: CT/SR - CT HEAD FOR STROKE - 04/13/24 17:26 EST ?? MR - [place]RAIN O [id number] - 06/07/06 00:00 EST ? Findings: ?? No restricted diffusion. No intracranial mass or hemorrhage. ?? No midline shift. No hydrocephalus. ?? Vascular flow voids are intact. ? Orbital contents are unremarkable. ?? The sinuses and mastoid air cells are clear. ?? No focal bone lesion. ? IMPRESSION: ?? No acute findings. ? This document has been electronically signed by: Irene Costa MD on ?? 04/14/2024 13:23:29 ? Dictated By: ?Irene Costa MD ? Signed By: ?<Electronically signed by Irene Costa MD in OV> ? 04/14/24 1324 ? DD/ 1323 ? TD/TT: 04/14/24 1323 ? Real Estate Transaction Manager: ? Procedure Note Rosemary Kang - 04/14/[address] [place] [address] Magnetic Resonance Report Signed Patient: Crissy Hicks#: [id number] : 1975Acct:[id number] Age/Sex: 48 / FADM Date: 04/13/24 Loc: .[facility] 453-[address]: Rohini STOCKTON Ordering Physician: Nader Stringer MD Date of Service: 04/13/24 Procedure(s): MR head/brain wo con Accession Number(s): [id number] cc: Dory Ray MD; Nader Stringer MD CLINICAL HISTORY: slurred speech MR Brain without gadolinium Comparison: CT/SR - CT HEAD FOR STROKE - 04/13/24 17:26 EST MR - MRI BRAIN O [id number] - 06/07/06 00:00 EST Findings: No restricted diffusion. No intracranial mass or hemorrhage. No midline shift. No hydrocephalus. Vascular flow voids are intact. Orbital contents are unremarkable. The sinuses and mastoid air cells are clear. No focal bone lesion. IMPRESSION: No acute findings. This document has been electronically signed by: Irene Costa MD on 04/14/2024 13:23:29 Dictated By: Irene Costa MD Signed By: <Electronically signed by Irene Costa MD in OV> 04/14/24 1324 DD/ 1323 TD/TT: 04/14/24 1323 Real Estate Transaction Manager: [facility] External Provider IMG MRI PROCEDURES Edited Result - Final * CTA Head Stroke w/ and w/o Contrast (04/13/2024 7:07 PM EST) Anatomical Region Laterality Modality Computed Tomogra phy 04/13/2024 7:07 PM EST Narrative 04/13/2024 7:08 PM EST ? [facility] ?[address] ?[place] [address] ? CT Scan Report ? Signed ? Patient: Kurt,Marlene ?MR#: [id number] ?? [id number] ? : 1975 ?Acct:[id number] ? Age/Sex: 48 / F ?ADM Date: 01/10/25 ? Loc: HO.ED ? Attending Dr: ? Ordering Physician: Thuy Duffy DO ?? Date of Service: 04/13/24 ?? Procedure(s): CT angio head neck STROKE ?? Accession Number(s): [id number] ? cc: Dory Ray MD; Thuy Duffy DO ? Report Number: ?? [id number]: Total DLP = 1542.00 mGy-cm ? CLINICAL HISTORY: aphasia ? CT angiography head and neck with contrast and CT venogram of the head. 3D ?? Postprocessing. ? Comparison: CR/SR - NECK SOFT TISSUE [id number] - 09/08/18 23:26 EDT ? Findings: ?? Evaluation is limited by the mildly delayed phase of contrast and venous ?? contamination. ?? Aortic arch and cervical great vessels are patent. No significant ?? Atherosclerosis calcification of the carotid bulbs. Right dominant ?? vertebral artery. The left vertebral artery arises directly from the ?? aortic arch. ?? Intracranial arteries are patent. No aneurysm, dissection, or occlusion. ?? No abnormal intracranial enhancement. ? The visualized thyroid gland is unremarkable. No cervical mass or fluid ?? collection. ?? Lung apices clear. ?? No acute fracture. ? No abnormal contrast filling defect of the dural venous sinuses. ? IMPRESSION: ?? Patent head and neck CTA. ? No evidence of dural venous sinus thrombosis. ? This document has been electronically signed by: Rhianna Lopez MD on ?? 04/13/2024 19:07:22 ? Dictated By: ?Rhianna Lopez MD ? Signed By: ?<Electronically signed by Rhianna Lopez MD in OV> ? 04/13/24 1907 ? DD/ 06 ? TD/TT: 04/13/241906 ? Real Estate Transaction Manager: ? Procedure Note Rosemary Kang - 04/13/[address] [address] CT Scan Report Signed Patient: Crissy Hicks#: [id number] : 1975Acct:[id number] Age/Sex: 48 / FADM Date: 04/13/24 Loc: HO.ED Attending Dr: Ordering Physician: Thuy Duffy DO Date of Service: 04/13/24 Procedure(s): CT angio head neck STROKE Accession Number(s): [id number] cc: Dory Ray MD; [place],Mel Report Number: [id number]: Total DLP = 1542.00 mGy-cm CLINICAL HISTORY: aphasia CT angiography head and neck with contrast and CT venogram of the head. 3D Postprocessing. Comparison: CR/SR - NECK SOFT TISSUE [id number] - 09/08/18 23:26 EDT Findings: Evaluation is limited by the mildly delayed phase of contrast and venous contamination. Aortic arch and cervical great vessels are patent. No significant Atherosclerosis calcification of the carotid bulbs. Right dominant vertebral artery. The left vertebral artery arises directly from the aortic arch. Intracranial arteries are patent. No aneurysm, dissection, or occlusion. No abnormal intracranial enhancement. The visualized thyroid gland is unremarkable. No cervical mass or fluid collection. Lung apices clear. No acute fracture. No abnormal contrast filling defect of the dural venous sinuses. IMPRESSION: Patent head and neck CTA. No evidence of dural venous sinus thrombosis. This document has been electronically signed by: Rhianna Lopez MD on 04/13/2024 19:07:22 Dictated By: Rhianna Lopez MD Signed By: <Electronically signed by Rhianna Lopez MD in OV> 04/13/241906 DD/ 06 TD/TT: 04/13/241906 Real Estate Transaction Manager: [facility] External Provider IMG CT PROCEDURES Final Result * (ABNORMAL) Urinalysis, Complete, with Reflex to Culture (04/13/2024 6:20 PM EST) Color Urine Yellow [facility] Appearance Urine Clear [facility] PH 7.0 5.0 - 9.0 [facility] Glucose Urine UA Negative Negative mg/dL [facility] Urine Blood Large (3+)(A) Negative [facility] Specific [place] - Urine 1.015 1.005 - 1.025 [facility] Urine Protein Negative Neg-Trace mg/dL [facility] Urine Ketones Negative Negative mg/dL [facility] Nitrite Urine Negative Negative [facility] Leukocyte Esterase Urine Trace(A) Negative [facility] RBC Urine >20(A) 0 - 2 /HPF [facility] Urine WBC 0-5 0 - 5 /HPF [facility] Urine Squamous Epithelial Cell 0-2 0 - 2 /HPF [facility] Urine Bacteria None Seen None Seen [facility] Hyaline Casts, Urine 0-2 0 - 2 /LPF [facility] 04/13/2024 6:20 PM EST 04/13/2024 6:23 PM EST Narrative [facility] - 04/13/2024 6:45 PM EST [id number], [employer] External Data Provider LAB URINE ORDERAB LES Final Result [facility] [address] [place] [address] [phone] * Drug Monitoring, Panel 1, Screen, Urine (04/13/2024 6:20 PM EST) Opiate Screen Urine Not Detected Not Detect [facility] Comment:Opiate cut-off is 30 0 ng/mL.Positive results are unconfirmed and should not be used fornon-medical purposes. Barbiturates, Urine Not Detected Not Detect [facility] Comment:Barbiturate cut-off is 200 ng/mL.Positive results are unconfirmed and should not be used fornon-medical purposes. Phencyclidine Screen Urine Not Detected Not Detect [facility] Comment:Phencyclidine cut-of f is 25 ng/mL.Positive results are unconfirmed and should not be used fornon-medical purposes. Amphetamine Screen Urine Not Detected Not Detect [facility] Comment:Amphetamine cut-off is 1000 ng/mL.Positive results are unconfirmed and should not be used fornon-medical purposes. Benzodiazepines Screen Urine Not Detected Not Detect [facility] Comment:Benzodiazepine cut-o ff is 200 ng/mL.Positive results are unconfirmed and should not be used fornon-medical purposes. Cocaine Screen Urine Not Detected Not Detect [facility] Comment:Cocaine cut-off is 3 00 ng/mL.Positive results are unconfirmed and should not be used fornon-medical purposes. Cannabinoid Screen Urine Not Detected Not Detect [facility] Comment:Cannabinoid cut-off is 50 ng/mL.Positive results are unconfirmed and should not be used fornon-medical purposes. Methadone Screen, Urine Not Detected Not Detect ng/mL [facility] Comment:Methadone cut-off is 300 ng/mL.Positive results are unconfirmed and should not be used fornon-medical purposes. FENTANYL URINE Not Detected Not Detect [facility] Comment:Fentanyl cut-off is 1 ng/mL.Positive results are unconfirmed and should not be used fornon-medical purposes. Oxycodone Urine Screen Not Detected Not Detect ng/mL [facility] Comment:Oxycodone cut-off is 100 ng/mL.Positive results are unconfirmed and should not be used fornon-medical purposes. Buprenorphine Screen Not Detected Not Detect ng/mL [facility] Comment:Buprenorphine cut-of f is 5 ng/mL.Positive results are unconfirmed and should not be used fornon-medical purposes. 04/13/2024 6:20 PM EST 04/13/2024 6:23 PM EST [employer] External Data Provider LAB URINE ORDERAB LES Final Result Performing Organization Address [facility] Co de Phone Number [facility] [address] [place] [phone] * High Sensitivity Troponin I (04/12/2024 10:00 AM EST) TROPONIN I HIGH SENSITIVITY <2.7 <3.5 - 17.0 ng/L [facility] Comment:The [place] high sens itivity Troponin-I results should beused in conjunction with other diagnostic information suchas ECG, clinical observations and information, and patientsymptoms to aid in the diagnosis of DE. 04/12/2024 10:0 0 AM EST 04/12/2024 10:04 AM EST us Generic External Data Provider LAB BLOOD ORDERAB LES Final Result Performing Organization Address City/[facility]/ZIP Co de Phone Number [facility] [address] [place] [address] [phone] * SARS-CoV-2 RNA, Influenza A/B, and RSV RNA, Ql NAAT (04/12/2024 10:00 AM EST) Influenza A PCR NEGATIVE Negative [facility] Influenza B PCR NEGATIVE Negative [facility] Resp Syncy Virus RNA Qual PCR NEGATIVE Negative [facility] SARS COV2 PCR NEGATIVE Negative [facility] Comment:All test results mus t be correlated with clinical findings.Negative results do not preclude SARS-CoV2, influenza Avirus, influenza B virus and/or RSV infectionand should not be used as the sole basis for treatment orother patient management decisions. Negative results must becombined with clinical observations, patient history, andepidemiological information.This test has not been evaluated for monitoring treatment ofinfection.This test has been authorized by the FDA under an EmergencyUse Authorization (EUA) for use by authorized laboratories.Testing performed on the [employer] GeneXpert utilizingreal-time RT-PCR.All SARS CoV2 and positive influenza A/B results arereported to [facility]. 04/12/2024 10:0 0 AM EST 04/12/2024 10:04 AM EST Generic External Data Provider LAB MICROBIOLOGY - GENERAL ORDERABLES Final Result Performing Organization Address [facility]/ZIP Co de Phone Number [facility] [address] [place] [phone] * (ABNORMAL) CBC auto differential (04/12/2024 10:00 AM EST) White Blood Count 8.3 4.8 - 10.8 X10*3/uL [facility] Red Blood Count 3.82(L) 4.20 - 5.50 X10*6/uL [facility] Hemoglobin 12.1 12.0 - 16.0 g/dl [facility] Hematocrit 35.4(L) 37.0 - 47.0 % [facility] Mean Corpuscular Volume 92.7 80.0 - 98.0 fL [facility] Mean Corpuscular Hemoglobin 31.7 27.0 - 33.0 pg [facility] Mean Corpuscular HGB Conc 34.2 31.0 - 35.0 g/dl [facility] Red Cell Distribution Width 13.8 11.0 - 16.0 % [facility] Platelet Count 273 160 - 400 X10*3/uL [facility] Mean Platelet Volume 9.2(L) 9.4 - 12.3 fL [facility] Neutrophils Percent Auto 59.7 45 - 73 % [facility] Imm Gran Pct Auto 0.5(H) 0.0 - 0.4 % [facility] Lymphocytes Percent Auto 31.5 20 - 40 % [facility] Monocytes Percent Auto 6.6 2 - 11 % [facility] Eosinophils Percent Auto 1.2 0 - 4 % [facility] Basophils Percent Auto 0.5 0 - 2 % [facility] NRBC Pct Auto 0.0 0.0 - 0.2 /100WBC [facility] Neutrophils Absolute Auto 4.9 2.0 - 8.3 x10*3/uL [facility] Imm Gran Abs Auto 0.04(H) 0.00 - 0.03 X10*3/uL [facility] Lymphocytes Absolute Auto 2.6 1.2 - 4.9 X10*3/uL [facility] Monocytes Absolute Auto 0.6 0.1 - 1.2 X10*3/uL [facility] Eosinophils Absolute Auto 0.1 0.0 - 0.4 X10*3/uL [facility] Basophils Absolute Auto 0.0 0.0 - 0.2 X10*3/uL [facility] NRBC Abs Auto 0.000 0.0 - 0.012 X10*3/uL [facility] 04/12/2024 10:0 0 AM EST 04/12/2024 10:04 AM EST us Generic External Data Provider LAB BLOOD ORDERAB LES Final Result [facility] [address] [place] [phone] * XR Chest 2 Views (04/12/2024 10:00 AM EST) Anatomical Region Laterality Modality Chest Radiographic [place] 04/12/2024 10:0 0 AM EST Narrative 04/12/2024 10:17 AM EST ? [facility] ?[address] ?[place] [address] ?XRay Report ? Signed ? Patient: Kurt,Marlene ?MR#: [id number] ?? [id number] ? : 1975 ?Acct:[id number] ? Age/Sex: 48 / F ?ADM Date: 04/12/24 ? Loc: HO.ED ? Attending Dr: ? Ordering Physician: Thuy Duffy DO ?? Date of Service: 04/12/24 ?? Procedure(s): XR chest 2V ?? Accession Number(s): [id number] ? cc: Dory Ray MD; Thuy Duffy DO ? EXAMINATION: ?? XR CHEST ? CLINICAL INFORMATION: ?? chest pain ? COMPARISON: ?? X-ray dated November 11, 2022 ? TECHNIQUE: ?? 2 views of the chest were obtained. ? FINDINGS: ?? No consolidation, pleural effusion or pneumothorax. Cardiomediastinal ?? silhouette is normal. Osseous structures are intact. ? XR/XR chest 2V ?? IMPRESSION: ?? No acute airspace disease. Negative exam. ? Electronically signed by: ??Luis Enrique Sheriff MD ??04/12/2024 10:11 AM ?? EST RP ? Dictated By: ?Luis Enrique Figueroa MD ? Signed By: ?<Electronically signed by Luis Enrique Blankenship MD in OV> ? 04/12/24 1011 ? DD/ 1000 ? TD/TT: 04/12/24 1005 ? Real Estate Transaction Manager: ? Procedure Note Rosemary Kang - 04/12/[address] [place] [address] XRay Report Signed Patient: Crissy Hicks#: [id number] : 1975Acct:[id number] Age/Sex: 48 / FADM Date: 04/12/24 Loc: HO.ED Attending Dr: Ordering Physician: Thuy Duffy DO Date of Service: 04/12/24 Procedure(s): XR chest 2V Accession Number(s): [id number] cc: Dory Ray MD; Thuy Duffy DO EXAMINATION: XR CHEST CLINICAL INFORMATION: chest pain COMPARISON: X-ray dated November 11, 2022 TECHNIQUE: 2 views of the chest were obtained. FINDINGS: No consolidation, pleural effusion or pneumothorax. Cardiomediastinal silhouette is normal. Osseous structures are intact. XR/XR chest 2V IMPRESSION: No acute airspace disease. Negative exam. Electronically signed by: Luis Enrique Sheriff MD 04/12/2024 10:11 AM EST Dictated By: Luis Enrique Figueroa MD Signed By: <Electronically signed by Luis Enrique Blankenship MDin OV> 04/12/24 1011 DD/ 1000 TD/TT: 04/12/24 1005 Real Estate Transaction Manager: [facility] External Provider IMG XR PROCEDURES Final Result * (ABNORMAL) Prothrombin Time-INR (04/12/2024 10:00 AM EST) Prothrombin Time 10.4(L) 10.9 - 12.4 SEC [facility] INTERNATIONAL NORM RATIO 0.9 0.9 - 1.1 [facility] Comment:INTERNATIONAL NORMAL IZED RATIO (INR) REFERENCE RANGES Reference RangeFor patients not on anticoagulant therapy: 0.9 - 1.1INR ranges for oral anticoagulanttherapy:For prevention and treatment of venous thrombosis and pulmonary embolism: 2.0 - 3.0For acute myocardial infarction with aspirin therapy: 2.0 - 3.0For acute myocardial infarction without aspirin therapy: 3.0 - 4.0For patients with mechanical prosthetic heart valves: 2.5 - 3.5 04/12/2024 10:0 0 AM EST 04/12/2024 10:04 AM EST us Generic External Data Provider LAB BLOOD ORDERAB LES Final Result Performing Organization Address [facility] Co de Phone Number [facility] [address] [place] [phone] * Magnesium (04/12/2024 10:00 AM EST) Magnesium 2.0 1.6 - 2.6 mg/dL [facility] 04/12/2024 10:0 0 AM EST 04/12/2024 10:04 AM EST us Generic External Data Provider LAB BLOOD ORDERAB LES Final Result Performing Organization Address [facility] Phone Number [facility] [address] [place] [phone] * Hepatic Function Panel (04/12/2024 10:00 AM EST) Bilirubin, Total 0.1 0.0 - 1.0 mg/dL [facility] Bilirubin, Direct <0.2 0.0 - 0.5 mg/dL [facility] Aspartate Amino Transferase 16 5 - 31 U/L [facility] Alanine Aminotransferase 14 0 - 31 U/L [facility] Total Protein 7.3 6.5 - 8.0 g/dL [facility] Albumin Level 4.0 3.5 - 5.0 g/dL [facility] Alkaline Phosphatase 49 39 - 117 U/L [facility] 04/12/2024 10:0 0 AM EST 04/12/2024 10:04 AM EST Generic External Data Provider LAB BLOOD ORDERAB LES Final Result Performing Organization Address [facility] Co de Phone Number [facility] [address] [place] [phone] * (ABNORMAL) Basic Metabolic Panel (04/12/2024 10:00 AM EST) Sodium 140 135 - 145 mmol/L [facility] Potassium 3.9 3.3 - 5.1 mmol/L [facility] Chloride 106 96 - 108 mmol/L [facility] Carbon Dioxide 28 22 - 29 mmol/L [facility] Anion Gap 10(L) 12 - 20 [facility] Urea Nitrogen (BUN) 9 9 - 16 mg/dL [facility] Creatinine, Serum 0.70 0.5 - 1.4 mg/dL [facility] [facility] 97.0 [facility] Comment:Provided height and weight: 172.72 cm,72.2 kg.eGFR (calculated from the MDRD study equation) and eCrCl(calculated from the Cockcroft-Gault equation) are based ondifferent parameters and may not yield comparable results.If eCrCl result is absurd, please check patient'sheight/weight. Estimated Glomerular Filt Rate >60 [facility] Comment:Chronic Kidney Disea se: Estimated GFR < 60 mL/min/1.63j4Fsnmco Kidney Disease: Estimated GFR < 15 mL/min/1.73m2 Glucose 110 60 - 115 mg/dL [facility] Calcium 9.3 8.4 - 10.2 mg/dL [facility] 04/12/2024 10:0 0 AM EST 04/12/2024 10:04 AM EST us Generic External Data Provider LAB BLOOD ORDERAB LES Final Result [facility] [address] [place] [phone] * BI MR Breast w and w/o Contrast Bilateral (04/09/2024 8:56 AM EST) Anatomical Region Laterality Modality Breast Bilateral Magnetic Resonan ce 04/09/2024 8:56 AM EST Narrative 04/09/2024 4:57 PM EST ? [facility] ?[address] ?[place] [address] ? Magnetic Resonance Report ? Signed ? Patient: Kurt,Marlene ?MR#: [id number] ?? [id number] ? : 1975 ?Acct:[id number] ? Age/Sex: 48 / F ?ADM Date: 04/09/24 ? Loc: HO.MRI ? Attending Dr: Macho Sarkar MD ? Ordering Physician: Macho Sarkar MD ?? Date of Service: 04/09/24 ?? Procedure(s): MR breast BI wo/w con ?? Accession Number(s): [id number] ? cc: Dory Ray MD; Macho Sarkar MD ? EXAMINATION: ?? MR BREAST WITHOUT AND WITH CONTRAST, BILATERAL ? CLINICAL INFORMATION: ?? Family history of breast cancer including sister in her 50s. High risk ?? screening surveillance. ? COMPARISON: ?? Mammography May 28, 2023 breast imaging February 18, 2022 ? TECHNIQUE: ?? MR imaging of the breast was performed using T1, T2 and fat saturated ?? techniques. Dynamic multiphase imaging was also performed after ?? administration of intravenous gadolinium contrast. Computer generated ?? 3-D reconstruction was generated. ? FINDINGS: ?? There is extremely dense fibroglandular breast tissue with marked ?? background enhancement. ? LEFT BREAST: ?? No suspicious enhancing masses or areas of nonmass enhancement. ?? No architectural distortion. ?? No internal mammary or axillary adenopathy. ? RIGHT BREAST: ?? No suspicious enhancing masses or areas of nonmass enhancement. ?? No architectural distortion. ?? No internal mammary or axillary adenopathy. ? Limited views of the chest and abdomen are unremarkable. ? MR/MR breast BI wo/w con ?? IMPRESSION: ?? No MRI evidence of malignancy bilateral breasts. ? ASSESSMENT: ?? LEFT BREAST: BI-RADS 1-Negative ? RIGHT BREAST: BI-RADS 1-Negative ? RECOMMENDATIONS: ?? Yearly screening mammography. ?? Recommend yearly MRI screening surveillance. ? Electronically signed by: ??Saranya Montero DO ??04/09/2024 04:54 PM EST ?? RP ? Dictated By: ?Saranya Montero DO ? Signed By: ?<Electronically signed by Saranya Montero, DO in OV> ? 04/09/24 1654 ? DD/ 0856 ? TD/TT: 04/09/24 0915 ? Real Estate Transaction Manager: ? Procedure Note Donotuseinterpreter, Image - 04/09/[address] [address] Magnetic Resonance Report Signed Patient: Crissy Hicks#: [id number] : 1975Acct:[id number] Age/Sex: 48 / FADM Date: 04/09/24 Loc: HO.MRI Attending Dr: Macho Sarkar MD Ordering Physician: Macho Sarkar MD Date of Service: 04/09/24 Procedure(s): MR breast BI wo/w con Accession Number(s): [id number] cc: Dory Ray MD; Macho Sarkar MD EXAMINATION: MR BREAST WITHOUT AND WITH CONTRAST, BILATERAL CLINICAL INFORMATION: Family history of breast cancer including sister in her 50s. High risk screening surveillance. COMPARISON: Mammography May 28, 2023 breast imaging February 18, 2022 TECHNIQUE: MR imaging of the breast was performed using T1, T2 and fat saturated techniques. Dynamic multiphase imaging was also performed after administration of intravenous gadolinium contrast. Computer generated 3-D reconstruction was generated. FINDINGS: There is extremely dense fibroglandular breast tissue with marked background enhancement. LEFT BREAST: No suspicious enhancing masses or areas of nonmass enhancement. No architectural distortion. No internal mammary or axillary adenopathy. RIGHT BREAST: No suspicious enhancing masses or areas of nonmass enhancement. No architectural distortion. No internal mammary or axillary adenopathy. Limited views of the chest and abdomen are unremarkable. MR/MR breast BI wo/w con IMPRESSION: No MRI evidence of malignancy bilateral breasts. ASSESSMENT: LEFT BREAST: BI-RADS 1-Negative RIGHT BREAST: BI-RADS 1-Negative RECOMMENDATIONS: Yearly screening mammography. Recommend yearly MRI screening surveillance. Electronically signed by: Saranya Montero DO 04/09/2024 04:54 PM EST Dictated By: Saranya Montero DO Signed By: <Electronically signed by Saranya Montero DO in OV> 04/09/24 1654 DD/ 0856 TD/TT: 04/09/24 0915 Real Estate Transaction Manager: us [facility] External Provider IMG MRI PROCEDURES Final Result * US Pelvis Transvaginal (03/23/2024 11:02 AM EST) Anatomical Region Laterality Modality Pelvis Ultrasound 03/23/2024 11:0 2 AM EST Narrative 05/09/2024 8:06 AM EST ? [facility] ?[address] ?[place], [place] [address] ? Ultrasound Report ? Signed ? Patient: Kurt,Marlene ?MR#: [id number] ?? [id number] ? : 1975 ?Acct:[id number] ? Age/Sex: 48 / F ?ADM Date: 03/23/24 ? Loc: HO.US ? Attending Dr: Macho Sarkar MD ? Ordering Physician: Macho Sarkar MD ?? Date of Service: 03/23/24 ?? Procedure(s): US pelvic and transvaginal ?? Accession Number(s): [id number] ? cc: Dory Ray MD; Macho Sarkar MD ? EXAMINATION: ? US PELVIS ? CLINICAL INFORMATION: ? Vaginal bleed. ? COMPARISON: ?? March 24, 2021. ?? Correlated to CT dated February 28, 2023. ? TECHNIQUE: ?? Ultrasound of the pelvis is performed using both transabdominal and ?? transvaginal transducers along with Doppler. Transvaginal imaging is ?? performed due to inadequate visualization transabdominally. ? FINDINGS: ? Submitted for interpretation on May 09, 2024. ?? Uterus: ?? The uterus is anteverted and measures 9 x 4 x 5 cm. ??The cervix ?? demonstrates probable nabothian cysts. ? The double wall endometrial thickness is 20 mm. ? The uterus is smooth in contour and has normal myometrial echogenicity. ?No visible fibroid. ? Adnexa: ?? Status post right oophorectomy.. ??There is no pelvic ascites or fluid ?? collection. ? Left ovary measures 3 x 3 x 3 cm. Volume is 11 cc. There is a 2 cm ?? anechoic lesion with thin septations. No flow on color Doppler ?? interrogation. ? US/US pelvic and transvaginal ?? IMPRESSION: ?? Thickened, 20 mm endometrial stripe. This is abnormal in a ?? postmenopausal woman. ?? 2 cm septated cystic lesion, left ovary. ? Electronically signed by: ??Luis Enrique Sheriff MD ??05/09/2024 08:03 AM ?? EST RP ? Dictated By: ?Luis Enrique Figueroa MD ? Signed By: ?<Electronically signed by Luis Enrique Blankenship MD in OV> ? 05/09/24802 ? DD/ 1102 ? TD/TT: 03/23/24 1124 ? Real Estate Transaction Manager: ? Procedure Note [place], Image - 05/09/2024 [place] [address] Ultrasound Report Signed Patient: Crissy Hicks#: [id number] : 1975Acct:[id number] Age/Sex: 48 / FADM Date: 03/23/24 Loc: HO.US Attending Dr: Macho Sarkar MD Ordering Physician: Macho Sarkar MD Date of Service: 03/23/24 Procedure(s): US pelvic and transvaginal Accession Number(s): [id number] cc: Dory Ray MD; Macho Sarkar MD EXAMINATION: US PELVIS CLINICAL INFORMATION: Vaginal bleed. COMPARISON: March 24, 2021. Correlated to CT dated February 28, 2023. TECHNIQUE: Ultrasound of the pelvis is performed using both transabdominal and transvaginal transducers along with Doppler. Transvaginal imaging is performed due to inadequate visualization transabdominally. FINDINGS: Submitted for interpretation on May 09, 2024. Uterus: The uterus is anteverted and measures 9 x 4 x 5 cm. The cervix demonstrates probable nabothian cysts. The double wall endometrial thickness is 20 mm. The uterus is smooth in contour and has normal myometrial echogenicity. No visible fibroid. Adnexa: Status post right oophorectomy.. There is no pelvic ascites or fluid collection. Left ovary measures 3 x 3 x 3 cm. Volume is 11 cc. There is a 2 cm anechoic lesion with thin septations. No flow on color Doppler interrogation. US/US pelvic and transvaginal IMPRESSION: Thickened, 20 mm endometrial stripe. This is abnormal in a postmenopausal woman. 2 cm septated cystic lesion, left ovary. Electronically signed by: Luis Enrique Sheriff MD 05/09/2024 08:03 AM EST RP Dictated By: Luis Enrique Figueroa MD Signed By: <Electronically signed by Luis Enrique Blankenship MDin OV> 05/09/24 0803 DD/ 1102 TD/TT: 03/23/24 1124 Real Estate Transaction Manager: [facility] External Provider IMG US PROCEDURES Edited Result - Final * POCT MARÍA-14 Urine Drug Screen (03/13/2024 1:12 PM EST) Benzodiazepines Screen, Urine Positive TCA, Urine Positive Urine Urine specimen obtained by clean catch procedure / Unknown 03/13/2024 1:12 PM EST Narrative Rosalinda Fields RN - 03/13/2024 1:12 PM EST UTOX cup Lot#[id number] Exp. 12/27/25 Internal Pass Control Emilia De La Torre RUN BOAT OPERATOR POINT OF CARE TEST ENTER/EDIT ORDERABLES Final Result * (ABNORMAL) POCT Urinalysis (02/28/2024 10:54 AM EST) Color, UA Yellow Clarity, UA Clear Glucose, UA Negative Bilirubin, UA Negative Ketones, UA Negative Spec Grav, UA 1.015 Blood, UA Positive(A) Negative, None Detected Comment:trace - intact pH, UA 7.5 Protein, UA Negative Urobilinogen, UA 0.2 Leukocytes, UA Negative Negative, Rare, Trace Nitrite, UA Negative Negative, None Detected Appearance, UA clear QC Media Lot # [id number] Lot# Expiration Date , Urine 02/28/2024 10:5 4 AM EST Dory Wen MD POINT OF CARE TEST EN TER/EDIT ORDERABLES Final Result * Bacterial Vaginosis (02/28/2024 12:00 AM EST) TRICHOMONAS VAGINALIS DETECTION BY PCR NOT DETECTED Not Detect [facility] BACTERIAL VAGINOSIS DETECTION BY PCR NEGATIVE Negative [facility] Comment:The BV organism targ ets of the Xpert Xpress MVP test can becommensal in women; Xpert Xpress MVP positive results forbacterial vaginosis should be considered in conjunction withother clinical and patient information to determine thedisease status. Organisms that are not detected by the XpertXpress MVP test have also been reported to be associatedwith BV and aerobic vaginitis.The Xpert Xpress MVP test performance has not been evaluatedin patients under the age of 14. MAUREEN GROUP DETECTION BY PCR NOT DETECTED Not Detect [facility] Maureen glab krusei PCR NOT DETECTED Not Detect [facility] Swab Vaginal structure / Unknown 02/28/2024 02/28/2024 us Dory Wen MD LAB MICROBIOLOGY - GE NERAL ORDERABLES Final Result Performing Organization Address City/[facility]/ZIP Co de Phone Number [facility] [address] [place] [phone] * Culture, Urine, Routine (02/28/2024 12:00 AM EST) Urine Urine specimen obtained by clean catch procedure / Unknown 02/28/2024 02/28/2024 Comment:UACC Narrative [facility] - 03/01/2024 8:13 AM EST Urine Culture No growth. Specimen Source: Urine clean catch us Dory Wen MD LAB MICROBIOLOGY - GE NERAL ORDERABLES Final Result Performing Organization Address City/[facility]/ZIP Co de Phone Number [facility] [address] [place] [phone] * HPV mRNA E6/E7 w/Reflex to HPV Genotypes 16, 18/45 (07/19/2023 9:21 AM EDT) HPV nRNA E6/E7 Not Detected Not Detected [facility] Comment:Methodology: Transcr iption-Mediated AmplificationThis assay detects E6/E7 viral messenger RNA (mRNA) from 14high-risk HPV types (16,18,31,33,35,39,45,51,52,56,58,59,66,68).Cervical sources are required for HPV testing.If a vaginal source from a patient who has had atotal hysterectomy with removal of cervix wassubmitted, please contact the testing laboratoryfor alternative testing options.For additional information, please refer tohttp://education.Camerborn/faq/FXB316q8(This link if provided for information/educational purposes only.)THIS TEST WAS PERFORMED AT:[employer] [place] [phone] WONG MD HPV mRNA E6/E7 [facility] HPV 16 RNA [facility] HPV 18/45 RNA [facility] 07/19/2023 9:21 AM EDT 07/20/2023 9:05 AM EDT us Generic External Data Provider LAB CYTOLOGY NEFTALI ROLLINS Final Result [facility] [address] [place] [phone] * (ABNORMAL) Lipid Panel, Standard (06/16/2023 10:01 AM EDT) Triglycerides 107 <150 mg/dL [facility] Comment:Desirable Triglyceri de: less than 150 mg/dLBorderline High Triglyceride 150-199 mg/dLHigh Triglyceride: 200-499 mg/dLVery High Triglyceride: greater than or equal to 5OO mg/dL Cholesterol 191 <200 mg/dL [facility] Comment:Desirable Cholestero l: less than 200 mg/dLBorderline High Cholesterol: 200-239 mg/dLHigh Cholesterol: greater than 239 mg/dL LDL Cholesterol Calculated 137(H) <100 mg/dL [facility] Comment:Desirable LDL: less than 100 mg/dLNear Optimal/Above Optimal LDL: 110- 129 mg/dLBorderline High LDL: 130-159 mg/dLHigh LDL: 160-189 mg/dLVery High LDL: greater than or equal to 190 mg/dL HDL Cholesterol 33(L) >40 mg/dL [facility] Comment:Desirable HDL: great er than 40 mg/dL Note: This HDL assay may give artificially low results in patients with liver disease. Blood Venous blood specimen / Unknown 06/16/2023 10:01 AM EDT 06/16/2023 11:27 AM EDT us Dory Wen MD LAB BLOOD ORDERABLES Final Result [facility] [address] [place] [phone] * Pap Smear (02/21/2023 2:25 PM EST) 02/21/2023 2:25 PM EST 02/22/2023 10:30 AM EST Narrative [facility] - 03/07/2023 8:53 PM EST ----- ------- Name: Marlene Hicks ? Age/Sex: 47/F ? : 1975 Unit#: [id number] ?? Attend Dr: Macho Sarkar MD ?Re02/21/23 ?Status: DEP REF ? Location: HO.LNP ?Disch: ? ----- ------- SPEC : [id number] ?RECD: 02/22/23 ? STATUS: ??SOUT ? REQ NUM: [id number] ? TREVON: 02/21/23-5958 ? SUBM DR: Macho Sarkar MD ? ENTERED: ??02/22/236 ?SP TYPE: Pap Smr ?OTHR DR: Dory Ray MD ? ORDERED: ??Pap Smear, PAP path review ? Interpretation ?? General Category: ?Epithelial cell abnormality. ?? Adequacy: ? Endocervical component present.k ?? Interpretation: ? Atypical squamous cells of undetermined significance. ? Hyperkeratosis. ? HPV mRNA E6/E7: ?Not detected ? This assay detects E6/E7 viral messenger RNA (mRNA) from 14 high-risk HPV types (16, 18, ?? 31, 33, 35, 39, 45, 51, 52, 56, 58, 59, 66, 68) ?? HPV testing performed by [facility], [place], [place]. ??See reference laboratory ?? portion of the EMR for entire report. ?Clinical Information LMP: Postmenopausal Previous PAP test: Unknown date/findings Other history: Abnormal uterine and vaginal bleeding. ? Material Received ?? ThinPrep-Cervical Copies To: ?? Dory Ray MD ?? [address] [facility] ?? [place] [address] ?? [phone] ?? Macho Sarkar MD ?? [address] [facility] ?? [place] [address] ?? [phone] ----- ------- Signed (signature on file) Abbie Saunders MD 03/07/232052 ? ----- ------- ? END OF REPORT ? us Generic External Data Provider LAB CYTOLOGY NEFTALI ROLLINS Final Result [facility] [address] [place] [phone] * Cologuard?? colon cancer screening (12/27/2022 9:47 AM EDT) [facility] Cologuard Result Negative Negative 01/07/20 5:43 PM EDT [facility] (CLIA #:[id number]) Comment: NEGATIVE TEST RESULT. A negative Cologuard result indicates a low likelihood that a colorectal cancer (CRC) or advanced adenoma (adenomatous polyps with more advanced pre-malignant features) ??is present. The chance that a person with a negative Cologuard test has a colorectal cancer is less than 1 in 1500 (negative predictive value >99.9%) or has an ??advanced adenoma is less than ??5.3% (negative predictive value 94.7%). These data are based on a prospective cross-sectional study of 10,000 individuals at average risk for colorectal cancer who were screened with both Cologuard and colonoscopy. (Anum Adan al, N Engl J Med 2014;370(14):1286- 1297) The normal value (reference range) for this assay is negative. COLOGUARD RE-SCREENING RECOMMENDATION: Periodic colorectal cancer screening is an important part of preventive healthcare for asymptomatic individuals at average risk for colorectal cancer. ??Following a negative Cologuard result, the [place] Cancer Society and U.S. Multi-Society Task Force screening guidelines recommend a Cologuard re-screening interval of 3 years. References: [place] Cancer Society Guideline for Colorectal Cancer Screening: https://www.cancer.org/cancer/fxpvs-peirhz-tpwski/suxaafvjq-wlloakovd-yvxulpb/ac s-rec ommendations.html.; Yossi DK, Katja CR, Mona LugoK, Colorectal Cancer Screening: Recommendations for Physicians and Patients from the U.S. Multi-Society Task Force on Colorectal Cancer Screening , Am J Gastroenterology 2017; 112:2840-8154. TEST DESCRIPTION: Composite algorithmic analysis of stool DNA-biomarkers with hemoglobin immunoassay. ?? Quantitative values of individual biomarkers are not reportable and are not associated with individual biomarker result reference ranges. Cologuard is intended for colorectal cancer screening of adults of either sex, 45 years or older, who are at average-risk for colorectal cancer (CRC). Cologuard has been approved for use by the U.S. FDA. The performance of Cologuard was established in a cross sectional study of average-risk adults aged 50-84. Cologuard performance in patients ages 45 to 49 years was estimated by sub-group analysis of near-age groups. Colonoscopies performed for a positive result may find as the most clinically significant lesion: colorectal cancer [4.0%], advanced adenoma (including sessile serrated polyps greater than or equal to 1cm diameter) [20%] or non- advanced adenoma [31%]; or no colorectal neoplasia [45%]. These estimates are derived from a prospective cross-sectional screening study of 10,000 individuals at average risk for colorectal cancer who were screened with both Cologuard and colonoscopy. (Anum Adan al, N Engl J Med 2014;370(14):7176-3845.) Cologuard may produce a false negative or false positive result (no colorectal cancer or precancerous polyp present at colonoscopy follow up). A negative Cologuard test result does not guarantee the absence of CRC or advanced adenoma (pre-cancer). The current Cologuard screening interval is every 3 years. ([place] Cancer Society and U.S. Multi-Society Task Force). Cologuard performance data in a 10,000 patient pivotal study using colonoscopy as the reference method can be accessed at the following location: www.Dibbz.StemCells/results. Additional description of the Cologuard test process, warnings and precautions can be found at www.Echoing GreenogMediSafe Projectrd.com. Stool specimen (specimen) 12/27/2022 9:47 AM EDT 12/29/2022 7:44 PM EDT us Dory Wen MD LAB MOLECULAR DIAGNOS TICS ORDERABLES Final Result [facility] (CLIA #:[id number]) [address] [place] [address], [place] [phone] from Last 3 Months or Most Recently Relevant to Health Maintenance Insurance * Guarantor: Marlene Hicks Account Type Relation to Patient Date of Phone Billing Address Personal/Family Self 1975 [address] [place] [address] [place] C3 Care Teams Highway Maintenance Supervisor Relationship Specialty Start Date End Date Dory Ray MD [address] [place] [phone] PCP - General Family Medicine 01/03/19 Jeane Lemons Smocking Machine OperatorIn Processing Instructor 11/09/23
--- OUTSIDE RECORDS SUMMARY | 2024-05-14 10:15 | XMS_ITS | Encounter Summary ---
Author Organization [employer] Address [address] [place] [address] Care Team Providers Care Scratch Polisher Name Role Phone Doyr Ray MD Primary Care Provide r Reason for Visit * Reason Comments Med Refill Encounter Details Date Type Department Care Team ([facility] st Contact Info) Description 04/16/[address] [facility] [address] [place] [address] Dory Ray MD [address] [place] [address] Social History Tobacco Use Types Packs/Day Years [...] of the following? None of the above;Lead [place] or Pipes;Pests such as bugs, ants, or [...] Description 05/15/2024 9:30 AM EST Office Visit [address] [address] Dory Ray MD [address] [place] [phone] 05/15/2024 11:00 AM EST Office Visit [address] [address] 05/30/2024 10:15 AM EST Office Visit [address] [address] Dory Ray MD [address] [place] [phone] documented as of this encounter Goals Goal Patient Goal Type Associated Problems Recent Progress Patient-Stated? Author Smoking cessation General No change(2023 2:25 PM EDT) Kiah Hanson, [place] Note: Maintain current progress, smoke 8 cigarettes per day or less. documented as of this encounter Visit Diagnoses Not on filedocumented in this encounter Additional Health Concerns Assessment Noted Time PHQ-9 Depression Total Score: 24 024 9:01 AM EDT documented as of this encounter Care Teams Scratch Polisher Relationship Specialty Start Date End Date Dory Ray MD [address] [place] [phone] PCP - General Family Medicine 01/03/19 Jeane Lemons Fairing ManContamination Consultant 11/09/23 documented as of this encounter
--- OUTSIDE RECORDS SUMMARY | 2024-05-14 10:15 | XMS_ITS | Encounter Summary ---
Author Organization [employer] Address [address] [facility] [facility] [address] 7t [place] [address] Care Team Providers Care Direct Sales Representative Name Role Phone Dory Ray MD Primary Care Provide r Reason for Visit * Reason Onset Date Comments Nurse Triage 10/11/2022 Encounter Details Date Type Department Care Team ([facility] st Contact Info) Description 10/11/2022 Telephone [facility] [address] [place] [address] Dory Ray MD 230 [place] [address] Nurse Triage Social History Tobacco Use Types Packs/Day Years Used Date Smoking Tobacco: Every Day Cigarettes Smokeless Tobacco: Never Alcohol Use Standard Drinks/Week Comments Never 0 (1 standard drink = 0.6 oz pur e alcohol) PHQ-2 Answer Date Recorded Patient Health Questionnaire-2 Score 4 08/12/2022 Comments Unknown Sex and Gender Information Value Date Recorded Sex Assigned at Female 02/01/2022 10:14 AM EDT Legal Sex Female 10:14 AM EDT Gender Identity Female 02/01/2022 10:14 AM EDT Sexual Orientation Choose not to disclose 2021 10:14 AM EDT documented as of this encounter Miscellaneous Notes * Telephone Encounter - Perla Washington RN - 10/11/2022 11:39 AM EDT Triage call with Augment translator interpreter ID [id number] Pt calls with numerous concerns but, abdominal pain is the worse pain at this time. Pt reports having upper abdominal pain, above belly button which radiates to right side of back. Pt reports vomitedonce last week but, denies nausea, vomiting, diarrhea. Pt last BM this morning denies constipation.Pt does take pepcid daily for relief of some to this discomfort. Pt reports is gaining weight. Pt takes tylenol/ibuprofen and tramadol for pain with some relief of back pain but no relief of abdominal discomfort. Advised Pt to come to [facility] to be seen and Pt reports will come in the morning. Home care is reviewed. Protocol Used: Abdominal Pain - Upper (Adult) Protocol-Based Disposition: See in Office or Video Visit Today or Tomorrow Video visit not offered Positive Triage Question: * Mild to Moderate pain that comes and goes (cramps) lasts > 24 hours * All higher-acuity triage questions were negative Care Advice Discussed: * Reassurance and Education - Stomach Pain * Drink Clear Fluids * Diet * Antacid Medicine * Food Recommendations to Reduce Reflux * Expected Course - Abdominal Pain * Reasons To Call Back - Abdomen pain is constant and present for more than 2 hours. - You become worse * Telephone Encounter - Verona Lewis - 10/11/2022 10:28 AM EDT Symptoms: Shoulder Pain - Not From Injury, Back Pain - Not From Injury Outcome: Schedule an urgent appointment (within 1 hour) or talk to a nurse or provider soon Reason: Severe pain now The caller accepted this outcome Please contact pt at [phone] (Nepali speaker) documented in this encounter Plan of Treatment Upcoming Encounters Date Type Department Care Team (Late st Contact Info) Description 05/15/2024 9:30 AM EST Office Visit [address] [address] Dory Ray MD [address] [place] [address] 05/15/2024 11:00 AM EST Office Visit [address] [address] 05/30/2024 10:15 AM EST Office Visit [address] [place] [address] Dory Ray MD [address] [place] [address] documented as of this encounter Visit Diagnoses Not on filedocumented in this encounter Additional Health Concerns Assessment Noted Time PHQ-9 Depression Total Score: 21 023 9:24 AM EDT documented as of this encounter Care Teams Direct Sales Representative Relationship Specialty Start Date End Date Dory Ray MD 230 [place] [address] PCP - General Family Medicine 01/03/19 Jeane Lemons Grounds Maintenance ManagerOil Field Pipeline Supervisor 11/09/23 documented as of this encounter
--- OUTSIDE RECORDS SUMMARY | 2024-05-14 10:15 | XMS_ITS | Encounter Summary ---
Author Organization [employer] Address [address] [facility] [address] 7[address] [place] [address] Care Team Providers Care Asphalt Machine Operator Name Role Phone Dory Ray MD Primary Care Provide r Reason for Visit * Reason Comments Med Refill Encounter Details Date Type Department Care Team ([facility] st Contact Info) Description 08/06/2023 Refill [facility] 230 [place], [place] [phone] Dory Ray MD 230 [place] [address] Chronic right-sided low back pain with right-sided sciatica Social History Tobacco Use Types Packs/Day Years [...] Description 05/15/2024 9:30 AM EST Office Visit [address] [address] Dory Ray MD [address] [place] [address] 05/15/2024 11:00 AM EST Office Visit [address] [address] 05/30/2024 10:15 AM EST Office Visit [address] [address] Dory Ray MD [address] [place] [address] documented as of this encounter Goals Goal Patient Goal Type Associated Problems Recent Progress Patient-Stated? Author Smoking cessation General No change(2023 2:25 PM EDT) No Kiah Cisneros, MichaelD Note: Maintain current progress, smoke 8 cigarettes per day or less. documented as of this encounter Visit Diagnoses Diagnosis Chronic right-sided low back pain with right-sided sciatica documented in this encounter Additional Health Concerns Assessment Noted Time PHQ-9 Depression Total Score: 24 023 9:07 AM EDT documented as of this encounter Care Teams Asphalt Machine Operator Relationship Specialty Start Date End Date Dory Ray MD 230 [place] [address] PCP - General Family Medicine 01/03/19 Jeane Lemons Pest ControllerEntomology Teacher 11/09/23 documented as of this encounter
--- OUTSIDE RECORDS SUMMARY | 2024-05-14 10:15 | XMS_ITS | Encounter Summary ---
Author Organization [employer] Address [address] [facility] 7t [place] [address] Care Team Providers Care Linux Administrator Name Role Phone Dory Ray MD Primary Care Provide r Reason for Visit * Reason Comments Med Refill Encounter Details Date Type Department Care Team ([facility] st Contact Info) Description 04/08/2024 Refill [facility] 230 [place] [address] Dory Ray MD 230 [place] [address] Chronic right-sided low back pain with right-sided sciatica; Essential hypertension Social History Tobacco Use Types Packs/Day Years [...] with others, in a hotel, in a jail, living outside on the street, on a beach, in a car, or in a park 08/19/[address] you li ve. Do you have problems with any of the following? None of the above;Lead [place] or Pipes;Pests such as bugs, ants, or [...] Description 05/15/2024 9:30 AM EST Office Visit [address] [address] Dory Ray MD [address] [place] [address] 05/15/2024 11:00 AM EST Office Visit [address] [address] 05/30/2024 10:15 AM EST Office Visit [address] [address] Dory Ray MD [address] [place] [address] documented as of this encounter Goals Goal Patient Goal Type Associated Problems Recent Progress Patient-Stated? Author Smoking cessation General No change(2023 2:25 PM EDT) Kiah Hanson, PharmD Note: Maintain current progress, smoke 8 cigarettes per day or less. documented as of this encounter Visit Diagnoses Diagnosis Chronic right-sided low back pain with right-sided sciatica Essential hypertension Unspecified essential hypertension documented in this encounter Additional Health Concerns Assessment Noted Time PHQ-9 Depression Total Score: 24 024 9:01 AM EDT documented as of this encounter Care Teams Linux Administrator Relationship Specialty Start Date End Date Dory Ray MD [address] [place] [address] PCP - General Family Medicine 01/03/19 Jeane Lemons Electroplating LaborerData Center Project Manager 11/09/23 documented as of this encounter
--- OUTSIDE RECORDS SUMMARY | 2024-05-14 10:15 | XMS_ITS | Encounter Summary ---
Author Organization [employer] Address [address] [facility] 7t [place] [address] Care Team Providers Care Machine Operator Hop Worker Name Role Phone Dory Ray MD Primary Care Provide r Reason for Visit * Reason Comments Med Refill Encounter Details Date Type Department Care Team (Late Contact Info) Description 10/06/[address] [facility] [address] [place], [place] [phone] Dory Ray MD [address] [place] [address] [phone] Chronic pain syndrome Social History Tobacco Use [...] Upcoming Encounters Date Type Department Care Team ([facility] Contact Info) Description 05/15/2024 9:30 AM EST Office [address] [facility] 230 [place], [place] [phone] Dory Ray MD 230 [place], [place] [phone] 05/15/2024 11:00 AM EST Office Visit [address] [phone] 05/30/2024 10:15 AM EST Office Visit [address] [address] Dory Ray MD [address] [place] [address] documented as of this encounter Visit Diagnoses Diagnosis Chronic pain syndrome documented in this encounter Additional Health Concerns Assessment Noted Time PHQ-9 Depression Total Score: 21 023 9:24 AM EDT documented as of this encounter Care Teams Machine Operator Hop Worker Relationship Specialty Start Date End Date Dory Ray MD [address] [place] [address] PCP - General Family Medicine 01/03/19 Jeane Lemons Tube MakerMechanical Service Technician 11/09/23 documented as of this encounter
--- OUTSIDE RECORDS SUMMARY | 2024-05-14 10:15 | XMS_ITS | Encounter Summary ---
Author Organization [employer] Address [address] [facility] [address] 7t [place] [address] Care Team Providers Care Retail Sales Advisor Name Role Phone Dory Ray MD Primary Care Provide r Reason for Visit * Reason Comments Med Refill Encounter Details Date Type Department Care Team ([facility] st Contact Info) Description 03/07/2022 Refill [facility] [address] [place] [address] Emilia De La Torre FNP [address] [place] [address] Fibromyalgia (Primary Dx) Social History Tobacco Use Types [...] encounter Miscellaneous Notes * Telephone Encounter - Rosalinda Fields RN - 03/10/2022 9:03 AM EST Tramadol request was sent & approved on 03/08/22. * Telephone Encounter - Robyn Herring - 03/08/2022 1:47 PM EST Tc from pt checking status on med tramadol . * Telephone Encounter - Jaz Cameron - 03/08/2022 9:19 AM EST Tc from pt requesting a new script for traMADol (Ultram) 50 MG tablettraMADol (Ultram) . Pt stated will be traveling to [place] on 03/10/22. Last seen on 01/20/22. PCP Dr. Garcia documented in this encounter Plan of Treatment Upcoming Encounters Date Type Department Care Team (Late st Contact Info) Description 05/15/2024 9:30 AM EST Office Visit [facility] [address] [place] [address] Dory Ray MD [address] [place] [address] 05/15/2024 11:00 AM EST Office Visit [address] [address] 05/30/2024 10:15 AM EST Office Visit [address] [address] Dory Ray MD [address] [place] [address] documented as of this encounter Visit Diagnoses Diagnosis Fibromyalgia- Primary Unspecified myalgia and myositis documented in this encounter Care Teams Retail Sales Advisor Relationship Specialty Start Date End Date Dory Ray MD [address] [place] [address] PCP - General Family Medicine 01/03/19 Jeane Lemons Trombone Slide AssemblerMarine Pipefitter Helper 11/09/23 documented as of this encounter
--- OUTSIDE RECORDS SUMMARY | 2024-05-14 10:15 | XMS_ITS | Encounter Summary ---
Author Organization [employer] Address [address] [facility] 7t [place] [address] Care Team Providers Care Work Manager Name Role Phone Dory Ray MD Primary Care Provide r Reason for Visit * Reason Comments Med Refill Encounter Details Date Type Department Care Team (Late Contact Info) Description 06/22/2022 Refill [facility] MEDICINE [address] [place] [address] [phone] Name, MD Soy [address] [place] [phone] Recurrent major depressive episodes, moderate (CMS/HCC); Migraine without status migrainosus, not intractable, unspecified migraine type Social History Tobacco Use Types Packs/Day Years [...] Description 05/15/2024 9:30 AM EST Office Visit [facility] [address] [place] [address] Dory Ray MD 230 [place], [place] [phone] 05/15/2024 11:00 AM EST Office Visit [address] [phone] 05/30/2024 10:15 AM EST Office Visit [address] [address] Dory Ray MD [address] [place] [address] [phone] documented as of this encounter Visit Diagnoses Diagnosis Recurrent major depressive episodes, moderate (CMS/HCC) Major depressive disorder, recurrent episode, moderate Migraine without status migrainosus, not intractable, unspecified migraine type documented in this encounter Care Teams Work Manager Relationship Specialty Start Date End Date Dory Ray MD [address] [place] [address] [phone] PCP - General Family Medicine 01/03/19 Jeane Lemons Merchandise For Resale Purchasing AgentClinical Nursing Instructor 11/09/23 documented as of this encounter
--- OUTSIDE RECORDS SUMMARY | 2024-05-14 10:16 | XMS_ITS | Encounter Summary ---
Author Organization [employer] Address [address] [facility] [address] [address] 7t [place] [address] Care Team Providers Care Airline Attendant Name Role Phone Dory Ray MD Primary Care Provide r Encounter Details Date Type Department Care Team (Late st Contact Info) Description 01/12/2023 Abstract [facility] 230 [place] [address] Dory Ray MD 230 [place] [address] Social History Tobacco Use Types Packs/Day Years Used Date Smoking Tobacco: Every Day Cigarettes Smokeless Tobacco: Never Alcohol Use Standard Drinks/Week Comments Never 0 (1 standard drink = 0.6 oz pur e alcohol) Depression Answer Date Recorded Patient Health Questionnaire-9 Score 24 12/14/2022 Housing Stability Answer Date Recorded What is your housing situation today? I have danielitogisela jernigan 01/11/[address] you li ve. Do you have problems with any of the following? None of the above 01/11/2023 Food Insecurity Answer Date Recorded Within the past 12 months, y ou worried that your food would run out before you got money to buy more: Never True 01/11/2023 Within the past 12 months,th e food you bought just didn't last and you didn't have enough money to get more: Never True 01/2023 Transportation Answer Date Recorded In the past 12 months, has l ack of transportation kept you from medical appts, meetings, work or from getting things needed for daily living? No 01/11/2023 Utilities Answer Date Recorded In the past 12 months, has t he electric, gas, oil or water company threatened to shut off services in your home? No 01/11/2023 Depression Answer Date Recorded Patient Health Questionnaire-2 [...] Description 05/15/2024 9:30 AM EST Office Visit [facility] [address] [place] [address] Dory Ray MD [address] [place] [address] 05/15/2024 11:00 AM EST Office Visit [address] [address] 05/30/2024 10:15 AM EST Office Visit [address] [address] Dory Ray MD [address] [place] [address] documented as of this encounter Visit Diagnoses Not on filedocumented in this encounter Additional Health Concerns Assessment Noted Time PHQ-9 Depression Total Score: 24 023 9:07 AM EDT documented as of this encounter Care Teams Airline Attendant Relationship Specialty Start Date End Date Dory Ray MD [address] [place] [address] PCP - General Family Medicine 01/03/19 Jeane Lemons Senior Director MarketingAgile Project Manager 11/09/23 documented as of this encounter
--- OUTSIDE RECORDS SUMMARY | 2024-05-14 10:16 | XMS_ITS | Encounter Summary ---
Author Organization [employer] Address [address] [facility] 7t [place] [address] Care Team Providers Care Merchandise Flow Team Member Name Role Phone Dory Ray MD Primary Care Provide r Reason for Visit * Reason Onset Date Comments Durable Medical Equipment 03/21/2024 Encounter Details Date Type Department Care Team ([facility] st Contact Info) Description 03/21/2024 Telephone [facility]INE 230 [place] [address] Doyr Ray MD 230 [place] [address] Durable Medical Equipment Social History Tobacco Use Types Packs/Day Years [...] with others, in a hotel, in a group home, living outside on the street, on a beach, in a car, or in a park 08/19/[address] you li ve. Do you have problems with any of the following? None of the above;Lead [place] or Pipes;Pests such as bugs, ants, or [...] encounter Miscellaneous Notes * Telephone Encounter - Jas Lozano - 03/21/2024 2:31 PM EST Tc from pt requesting DME for Wipes. Contact pt at [phone] documented in this encounter Plan of Treatment Upcoming Encounters Date Type Department Care Team (Late st Contact Info) Description 05/15/2024 9:30 AM EST Office Visit [address] [address] Dory Ray MD [address] [place] [address] 05/15/2024 11:00 AM EST Office Visit [address] [address] 05/30/2024 10:15 AM EST Office Visit [address] [place] [address] Dory Ray MD 230 [place] [address] documented as of this encounter Goals Goal [...] documented as of this encounter Care Teams Merchandise Flow Team Member Relationship Specialty Start Date End Date Dory Ray MD 230 [place] [address] PCP - General Family Medicine 01/03/19 Jeane Lemons Terminal WorkerSap Consultant 11/09/23 documented as of this encounter
--- OUTSIDE RECORDS SUMMARY | 2024-05-14 10:16 | XMS_ITS | Encounter Summary ---
Author Organization [employer] Address [address] [facility] [address] 7t [place] [address] Care Team Providers Care Harbor Patrol Police Name Role Phone Dory Ray MD Primary Care Provide r Reason for Visit * Reason Onset Date Comments Durable Medical Equipment 04/17/2024 Encounter Details Date Type Department Care Team ([facility] st Contact Info) Description 04/17/2024 Telephone [facility] 230 [place], [place] [phone] Dustin Hickey [place] Durable Medical Equipment Social History Tobacco Use [...] with others, in a hotel, in a penitentiary, living outside on the street, on a beach, in a car, or in a park 08/19/[address] you li ve. Do you have problems with any of the following? None of the above;Lead [place] or Pipes;Pests such as bugs, ants, or [...] t he electric, gas, oil or water [employer] threatened to shut off services in your [...] encounter Miscellaneous Notes * Telephone Encounter - Dustin Hickey MA - 04/17/2024 9:50 AM EST DME-Generated prescription for wipes on 04/17/2024 , waiting for provider to sign. Signed ,scanned and fax to [facility] on 04/19/2024 documented in this encounter Plan of Treatment Upcoming Encounters Date Type Department Care Team (Late st Contact Info) Description 05/15/2024 9:30 AM EST Office Visit [facility] [address] [place] [address] Dory Ray MD 230 [place] [address] 05/15/2024 11:00 AM EST Office Visit [facility] [address] [place] [address] 05/30/2024 10:15 AM EST Office Visit [facility] 230 [place] [address] Dory Ray MD [address] [place] [address] documented as of this encounter Goals Goal [...] documented as of this encounter Care Teams Harbor Patrol Police Relationship Specialty Start Date End Date Dory Ray MD [address] [place] [address] PCP - General Family Medicine 01/03/19 Jeane Lemons Executive RecruiterCrystalizer Operator 11/09/23 documented as of this encounter
--- OUTSIDE RECORDS SUMMARY | 2024-05-14 10:16 | XMS_ITS | Encounter Summary ---
Author Organization [employer] Address [address] [facility] [address] 7t [place] [address] Care Team Providers Care Operations Research Group Manager Name Role Phone Dory Ray MD Primary Care Provide r Reason for Visit * Reason Comments Med Refill Encounter Details Date Type Department Care Team ([facility] st Contact Info) Description 04/10/2024 Refill [facility] MED[facility]INE 230 [place], [place] [phone] Dory Ray MD 230 [place] [address] Chronic right-sided low back pain with right-sided [...] with others, in a hotel, in a retirement, living outside on the street, on a beach, in a car, or in a park 08/19/[address] you li ve. Do you have problems with any of the following? None of the above;Lead [place] or Pipes;Pests such as bugs, ants, or [...] Description 05/15/2024 9:30 AM EST Office Visit [address] [address] Dory Ray MD [address] [place] [address] 05/15/2024 11:00 AM EST Office Visit [address] [address] 05/30/2024 10:15 AM EST Office Visit [address] [address] Dory Ray MD [address] [place] [address] documented as of this encounter Goals Goal Patient Goal Type Associated Problems Recent Progress Patient-Stated? Author Smoking cessation General No change(2023 2:25 PM EDT) Kiah Hanson, MichaelD Note: Maintain current progress, smoke 8 cigarettes per day or less. documented as of this encounter Visit Diagnoses Diagnosis Chronic right-sided low back pain with right-sided sciatica documented in this encounter Additional Health Concerns Assessment Noted Time PHQ-9 Depression Total Score: 24 024 9:01 AM EDT documented as of this encounter Care Teams Operations Research Group Manager Relationship Specialty Start Date End Date Dory Ray MD [address] [place] [address] PCP - General Family Medicine 01/03/19 Jeane Lemons Melt SuperintendantContracts Analyst 11/09/23 documented as of this encounter
--- OUTSIDE RECORDS SUMMARY | 2024-05-14 10:16 | XMS_ITS | Encounter Summary ---
Author Organization [employer] Address [address] [facility] [address] 7t [place] [address] Care Team Providers Care Design Editor Name Role Phone Dory Ray MD Primary Care Provide r Reason for Visit * Reason Comments Med Refill Encounter Details Date Type Department Care Team ([facility] st Contact Info) Description 05/03/2024 Refill [facility]INE [address] [place] [address] Dory Ray MD 230 [place] [address] Essential hypertension Social History Tobacco Use Types [...] with others, in a hotel, in a skilled nursing, living outside on the street, on a beach, in a car, or in a park 08/19/[address] you li ve. Do you have problems with any of the following? None of the above;Lead [place] or Pipes;Pests such as bugs, ants, or [...] Description 05/15/2024 9:30 AM EST Office Visit [address] [address] Dory Ray MD [address] [place] [address] 05/15/2024 11:00 AM EST Office Visit [address] [address] 05/30/2024 10:15 AM EST Office Visit [address] [address] Dory Ray MD [address] [place] [address] documented as of this encounter Goals Goal Patient Goal Type Associated Problems Recent Progress Patient-Stated? Author Smoking cessation General No change(2023 2:25 PM EDT) Kiah Hanson, Olimpia Note: Maintain current progress, smoke 8 cigarettes per day or less. documented as of this encounter Visit Diagnoses Diagnosis Essential hypertension Unspecified essential hypertension documented in this encounter Additional Health Concerns Assessment Noted Time PHQ-9 Depression Total Score: 24 024 9:01 AM EDT documented as of this encounter Care Teams Design Editor Relationship Specialty Start Date End Date Dory Ray MD [address] [place] [address] PCP - General Family Medicine 01/03/19 Jeane Lemons Linseed Oil Press TenderCoal Trimmer Machine Operator 11/09/23 documented as of this encounter
--- OUTSIDE RECORDS SUMMARY | 2024-05-14 10:16 | XMS_ITS | Encounter Summary ---
Author Organization [employer] Address [address] 7t [place] [address] Care Team Providers Care Supervisor Wool Shearing Name Role Phone Dory Ray MD Primary Care Provide r Reason for Visit * Reason Comments Med Refill Encounter Details Date Type Department Care Team ([facility] st Contact Info) Description 04/16/2024 Refill [facility] [address] [place], [place] [phone] Katerine Killian MD [address] [place] [address] Chronic right-sided low back pain with right-sided [...] with others, in a hotel, in a custodial, living outside on the street, on a beach, in a car, or in a park 08/19/[address] you li ve. Do you have problems with any of the following? None of the above;Lead Munson or Pipes;Pests such as bugs, ants, or [...] Description 05/15/2024 9:30 AM EST Office Visit [address] [address] Dory Ray MD [address] [place] [address] 05/15/2024 11:00 AM EST Office Visit [address] [address] 05/30/2024 10:15 AM EST Office Visit [address] [address] Dory Ray MD [address] [place] [address] documented as of this encounter Goals Goal [...] documented as of this encounter Care Teams Supervisor Wool Shearing Relationship Specialty Start Date End Date Dory Ray MD [address] [place] [address] PCP - General Family Medicine 01/03/19 Jeane Lemons Mail Distribution Scheme ExaminerGlove Maker 11/09/23 documented as of this encounter
--- OUTSIDE RECORDS SUMMARY | 2024-05-14 10:16 | XMS_ITS | Encounter Summary ---
Demographics Address [address] [place] [address] Work Phone Mobile Phone Email Address Preferred Language es Marital Status Unknown Episcopalian Affiliation Unknown Race Other Race Ethnic Group or Author Organization [employer] Address [address] 7t [place] [address] Care Team Providers Care Local Operator Name Role Phone Dory Ray MD Primary Care Provide r Encounter Details Date Type Department Care Team (Late st Contact Info) Description 03/23/2024 Orders Only [facility] External Provider, [facility] Social History Tobacco Use Types Packs/Day Years [...] with others, in a hotel, in a mcc, living outside on the street, on a beach, in a car, or in a park 08/19/[address] you li ve. Do you have problems with any of the following? None of the above;Lead Panther or Pipes;Pests such as bugs, ants, or [...] Description 05/15/2024 9:30 AM EST Office Visit [address] [address] Dory Ray MD [address] [place] [address] 05/15/2024 11:00 AM EST Office Visit [address] [address] 05/30/2024 10:15 AM EST Office Visit [address] [address] Dory Ray MD [address] [place] [address] documented as of this encounter Goals Goal Patient Goal Type Associated Problems Recent Progress Patient-Stated? Author Smoking cessation General No change(2023 2:25 PM EDT) No Kiah Cisneros, PharmD Note: Maintain current progress, smoke 8 cigarettes per day or less. documented as of this encounter Procedures Procedure Name Priority Date/Time Associated Diagnosis Comments US PELVIS TRANSVAGINAL Routine 03/23/2024 11:02 AM EST documented in this encounter Results * US Pelvis Transvaginal (03/23/2024 11:02 AM EST) Anatomical Region Laterality Modality Pelvis Ultrasound 03/23/2024 11:0 2 AM EST Narrative 05/09/2024 8:06 AM EST ? [facility] ?[address] ?[place] [address] ? Ultrasound Report ? Signed ? Patient: Kurt,Marlene ?MR#: [id number] ?? [id number] ? : 1975 ?Acct:[id number] ? Age/Sex: 48 / F ?ADM Date: 03/23/24 ? Loc: HO.US ? Attending Dr: Macho Sarkar MD ? Ordering Physician: Macho Sarkar MD ?? Date of Service: 03/23/24 ?? Procedure(s): US pelvic and transvaginal ?? Accession Number(s): [id number] ? cc: Dory Ray MD; Macho Sarkar [...] Luis Enrique Blankenship MD in OV> ? 05/09/24 0803 ? DD/ 1102 ? TD/TT: 03/23/24 1124 ? Storage Worker: ? Procedure Note Donchadwickter, Image - 05/09/2024 [place] [address] Ultrasound Report Signed Patient: Crissy Hicks#: [id number] : 1975Acct:[id number] Age/Sex: 48 / FADM Date: 03/23/24 Loc: HO.US Attending Dr: Macho Sarkar MD Ordering Physician: Macho Sarkar MD Date of Service: 03/23/24 Procedure(s): US pelvic and transvaginal Accession Number(s): [id number] cc: Dory Ray MD; Macho Sarkar MD [...] 05/09/24 0803 DD/ 1102 TD/TT: 03/23/24 1124 Storage Worker: [facility] External Provider IMG US PROCEDURES Edited Result - Final documented in this encounter Visit Diagnoses Not on filedocumented in this encounter Additional Health Concerns Assessment Noted Time PHQ-9 Depression Total Score: 24 024 9:01 AM EDT documented as of this encounter Care Teams Local Operator Relationship Specialty Start Date End Date Dory Ray MD 230 [place] [address] PCP - General Family Medicine 01/03/19 Jeane Lemons Design TechBusiness Writer 11/09/23 documented as of this encounter
--- OUTSIDE RECORDS SUMMARY | 2024-05-14 10:16 | XMS_ITS | Encounter Summary ---
Author Organization [employer] Address [address] 7t [place] [address] Care Team Providers Care Track Leader Name Role Phone Dory Ray MD Primary Care Provide r Reason for Visit * Reason Comments Med Refill Encounter Details Date Type Department Care Team ([facility] st Contact Info) Description 03/19/2024 Refill [facility] 230 [place] [address] Dory Ray MD 230 [place] [address] Essential hypertension Social History Tobacco Use Types [...] with others, in a hotel, in a detention, living outside on the street, on a beach, in a car, or in a park 08/19/[address] you li ve. Do you have problems with any of the following? None of the above;Lead Wallula or Pipes;Pests such as bugs, ants, or [...] Description 05/15/2024 9:30 AM EST Office Visit [address] [address] Dory Ray MD [address] [place] [address] 05/15/2024 11:00 AM EST Office Visit [address] [address] 05/30/2024 10:15 AM EST Office Visit [address] [address] Dory Ray MD [address] [place] [address] documented as of this encounter Goals Goal [...] documented as of this encounter Care Teams Track Leader Relationship Specialty Start Date End Date Dory Ray MD [address] [place] [address] PCP - General Family Medicine 01/03/19 Jeane Lemons Pull Socket AssemblerPower Line Installer And Repairer 11/09/23 documented as of this encounter
--- OUTSIDE RECORDS SUMMARY | 2024-05-14 10:16 | XMS_ITS | Encounter Summary ---
Author Organization [employer] Address [address] [facility] 7t [place] [address] Care Team Providers Care Smash Fixer Name Role Phone Dory Ray MD Primary Care Provide r Reason for Visit * Reason Comments Med Refill Encounter Details Date Type Department Care Team (Late Contact Info) Description 11/16/2022 Refill [facility] [address] [place] [address] [phone] Eden Cobb MD [address] [place] [address] [phone] Anxiety Social History Tobacco Use Types Packs/Day [...] Description 05/15/2024 9:30 AM EST Office Visit [facility] 230 [place], [place] [phone] Dory Ray MD 230 [place], [place] [phone] 05/15/2024 11:00 AM EST Office Visit [facility] [address] [place] [address] 05/30/2024 10:15 AM EST Office Visit [facility] [address] [place] [address] Dory Ray MD [address] [place] [address] documented as of this encounter Visit Diagnoses Diagnosis Anxiety Anxiety state, unspecified documented in this encounter Additional Health Concerns Assessment Noted Time PHQ-9 Depression Total Score: 21 023 9:24 AM EDT documented as of this encounter Care Teams Smash Fixer Relationship Specialty Start Date End Date Dory Ray MD [address] [place] [address] PCP - General Family Medicine 01/03/19 Jeane Lemons Adult Education ProfessionalAircraft Machinist 11/09/23 documented as of this encounter
--- OUTSIDE RECORDS SUMMARY | 2024-05-14 10:16 | XMS_ITS | Encounter Summary ---
Author Organization [employer] Address [address] 7t [place] [address] Care Team Providers Care Maintenance Equipment Operator Name Role Phone Dory Ray MD Primary Care Provide r Reason for Visit * Reason Comments Med Refill Encounter Details Date Type Department Care Team ([facility] st Contact Info) Description 01/17/2023 Refill [facility] 230 [place], [place] [phone] Dory Ray MD 230 [place] [address] Migraine without status migrainosus, not intractable, unspecified migraine type; Chronic right-sided low back pain with right-sided [...] 05/15/2024 9:30 AM EST Office Visit [address] [address] Dory Ray MD [address] [place] [address] 05/15/2024 11:00 AM EST Office Visit [address] [address] 05/30/2024 10:15 AM EST Office Visit [address] [address] Dory Ray MD [address] [place] [address] documented as of this encounter Visit Diagnoses Diagnosis Migraine without status migrainosus, not intractable, unspecified migraine type Chronic right-sided low back pain with right-sided sciatica documented in this encounter Additional Health Concerns Assessment Noted Time PHQ-9 Depression Total Score: 24 023 9:07 AM EDT documented as of this encounter Care Teams Maintenance Equipment Operator Relationship Specialty Start Date End Date Dory Ray MD [address] [place] [address] PCP - General Family Medicine 01/03/19 Jeane Lemons Cellular Tower ClimberConcrete Block Layer 11/09/23 documented as of this encounter
--- OUTSIDE RECORDS SUMMARY | 2024-05-14 10:16 | XMS_ITS | Encounter Summary ---
Author Organization [employer] Address [address] 7t [place] [address] Care Team Providers Care Social Media Marketing Manager Name Role Phone Dory Ray MD Primary Care Provide r Reason for Visit * Reason Onset Date Comments Prior Authorization 02/16/2023 LORazepam (A tivan) 1 MG Encounter Details Date Type Department Care Team ([facility] Contact Info) Description 02/16/2023 Telephone [facility] 230 [place] [address] Dory Ray MD 230 [place] [address] Prior Authorization (LORazepam (Ativan) 1 MG ) Social History Tobacco Use Types Packs/Day Years [...] of the following? None of the above;Lead Porter or Pipes;Pests such as bugs, ants, or [...] encounter Miscellaneous Notes * Telephone Encounter - Irais Lynn - 02/22/2023 3:24 PM EST PA for LORazepam (Ativan) 1 MG has been generated and placed on Provider desk for review and signature. * Telephone Encounter - Verona Lewis - 02/17/2023 2:12 PM EST Tc from pt requesting status on PA. [facility] pharmacy has not received anything. * Telephone Encounter - Radha Long - 02/16/2023 10:35 AM EST Tc from pt stating needs a PA for script on LORazepam (Ativan) 1 MG tablet, Needle Grinder confirmed with pharmacy, [facility] has faxed PA. documented in this encounter Plan of Treatment Upcoming Encounters Date Type Department Care Team (Late st Contact Info) Description 05/15/2024 9:30 AM EST Office Visit [address] [address] Dory Ray MD [address] [place] [address] [phone] 05/15/2024 11:00 AM EST Office Visit [address] [phone] 05/30/2024 10:15 AM EST Office Visit [address] [phone] Dory Ray MD [address] [place] [address] [phone] documented as of this encounter Goals Goal [...] documented as of this encounter Care Teams Social Media Marketing Manager Relationship Specialty Start Date End Date Dory Ray MD [address] [place] [address] [phone] PCP - General Family Medicine 01/03/19 Jeane Lemons Cad DesignerCertified Genetic Counselor 11/09/23 documented as of this encounter
--- OUTSIDE RECORDS SUMMARY | 2024-05-14 10:16 | XMS_ITS | Encounter Summary ---
Author Organization [employer] Address [address] [facility] 7t [place] [address] Care Team Providers Care Chimney Builder Name Role Phone Dory Ray MD Primary Care Provide r Reason for Visit * Reason Comments Med Refill Encounter Details Date Type Department Care Team (Late Contact Info) Description 08/05/2022 Refill [facility] [address] [place] [address] [phone] Dory Ray MD [address] [place] [address] Anxiety Social History Tobacco Use Types Packs/Day [...] Description 05/15/2024 9:30 AM EST Office Visit [facility] [address] [place] [address] [phone] Dory Ray MD [address] [place] [address] 05/15/2024 11:00 AM EST Office Visit [facility] [address] [place] [address] 05/30/2024 10:15 AM EST Office Visit [facility] [address] [place] [address] Dory Ray MD [address] [place] [address] documented as of this encounter Visit Diagnoses Diagnosis Anxiety Anxiety state, unspecified documented in this encounter Care Teams Chimney Builder Relationship Specialty Start Date End Date Dory Ray MD [address] [place] [address] PCP - General Family Medicine 01/03/19 Jeane Lemons Forge OperatorElectrologist 11/09/23 documented as of this encounter
--- OUTSIDE RECORDS SUMMARY | 2024-05-14 10:16 | XMS_ITS | Encounter Summary ---
Author Organization [employer] Address [address] 7t [place] [address] Care Team Providers Care Maintenance Engineer Oil Field Name Role Phone Dory Ray MD Primary Care Provide r Reason for Visit * Reason Comments Med Refill Encounter Details Date Type Department Care Team ([facility] st Contact Info) Description 12/29/2022 Refill [facility] [address] [place] [address] Sunshine James, DO [address] [place] [address] Strain of neck muscle, initial encounter; Neck pain Social History Tobacco Use Types Packs/Day Years Used Date Smoking Tobacco: Every Day Cigarettes Smokeless Tobacco: Never Alcohol Use Standard Drinks/Week Comments Never 0 (1 standard drink = 0.6 oz pur e alcohol) Depression Answer Date Recorded Patient Health Questionnaire-9 Score 24 12/14/2022 Depression Answer Date Recorded Patient Health Questionnaire-2 Score 6 12/14/2022 Comments Unknown Sex and Gender Information Value Date Recorded Sex Assigned at Female 02/01/2022 10:14 AM EDT Legal Sex Female 10:14 AM EDT Gender Identity Female 02/01/2022 10:14 AM EDT Sexual Orientation Choose not to disclose 2021 10:14 AM EDT documented as of this encounter Miscellaneous Notes * Telephone Encounter - Sunita Pierce RN - 01/12/2023 11:24 AM EDT CM reached out to pt for f/u call. Pt reports she currently do not have a therapist because her therapist left and this is the time that she really needs one. States she called the office multiple time and have still not been able to be placed with a new therapist. Pt reports increase depression due to increase stress from life struggle and has been crying more frequently. Pt denies SI/HI. CM gave pt the number for crisis and encourage pt to use it when needed. Will forward message to N f/u with pt. documented in this encounter Plan of Treatment Upcoming Encounters Date Type Department Care Team (Late st Contact Info) Description 05/15/2024 9:30 AM EST Office Visit [address] [address] Dory Ray MD [address] [place] [address] 05/15/2024 11:00 AM EST Office Visit [address] [address] 05/30/2024 10:15 AM EST Office Visit [address] [address] Dory Ray MD [address] [place] [address] documented as of this encounter Visit Diagnoses Diagnosis Strain of neck muscle, initial encounter Neck pain Cervicalgia documented in this encounter Additional Health Concerns Assessment Noted Time PHQ-9 Depression Total Score: 24 023 9:07 AM EDT documented as of this encounter Care Teams Maintenance Engineer Oil Field Relationship Specialty Start Date End Date Dory Ray MD [address] [place] [phone] PCP - General Family Medicine 01/03/19 Jeane Lemons Logging SuperintendentMother Tester 11/09/23 documented as of this encounter
--- OUTSIDE RECORDS SUMMARY | 2024-05-14 10:16 | XMS_ITS | Encounter Summary ---
Author Organization [employer] Address [address] [facility] 7t [place] [address] Care Team Providers Care Bingo Checker Name Role Phone Dory Ray MD Primary Care Provide r Reason for Visit * Reason Comments Med Refill Encounter Details Date Type Department Care Team (Late st Contact Info) Description 07/20/2022 Refill [facility] 230 [place] [address] Eden Cobb MD 230 [place] [address] Migraine without status migrainosus, not intractable, unspecified [...] Description 05/15/2024 9:30 AM EST Office Visit [facility] 230 [place] [address] Dory Ray MD 230 [place], [place] [phone] 05/15/2024 11:00 AM EST Office Visit [facility] [address] [place] [address] 05/30/2024 10:15 AM EST Office Visit [facility] [address] [place] [address] Dory Ray MD [address] [place] [address] documented as of this encounter Visit Diagnoses Diagnosis Migraine without status migrainosus, not intractable, unspecified migraine type documented in this encounter Care Teams Bingo Checker Relationship Specialty Start Date End Date Dory Ray MD [address] [place] [address] [phone] PCP - General Family Medicine 01/03/19 Jeane Lemons Exceptional Children Teacher AssistantJinriksha Driver 11/09/23 documented as of this encounter
--- OUTSIDE RECORDS SUMMARY | 2024-05-14 10:16 | XMS_ITS | Encounter Summary ---
Author Organization [employer] Address [address] [facility] 7t [place] [address] Care Team Providers Care Inventory Control Coordinator Name Role Phone Dory Ray MD Primary Care Provide r Reason for Visit * Reason Comments Med Refill Encounter Details Date Type Department Care Team (Late Contact Info) Description 12/09/2022 Refill [facility] [address] [place] [address] [phone] Dory Ray MD [address] [place] [address] [phone] Anxiety Social History Tobacco Use Types Packs/Day [...] Description 05/15/2024 9:30 AM EST Office Visit [facility] [address] [place] [address] [phone] Dory Ray MD [address] [place] [address] [phone] 05/15/2024 11:00 AM EST Office Visit [facility] [address] [place] [address] [phone] 05/30/2024 10:15 AM EST Office Visit [address] [address] Dory Ray MD [address] [place] [address] documented as of this encounter Visit Diagnoses Diagnosis Anxiety Anxiety state, unspecified documented in this encounter Additional Health Concerns Assessment Noted Time PHQ-9 Depression Total Score: 21 023 9:24 AM EDT documented as of this encounter Care Teams Inventory Control Coordinator Relationship Specialty Start Date End Date Dory Ray MD [address] [place] [phone] PCP - General Family Medicine 01/03/19 Jeane Lemons Medical Records ManagerCorn Crop Supervisor 11/09/23 documented as of this encounter
--- OUTSIDE RECORDS SUMMARY | 2024-05-14 10:16 | XMS_ITS | Encounter Summary ---
Author Organization [employer] Address [address] [facility] [address] [place] [address] Care Team Providers Care Psychiatric Therapist Name Role Phone Dory Ray MD Primary Care Provide r Reason for Visit * Reason Comments Med Refill Encounter Details Date Type Department Care Team (Late Contact Info) Description 11/26/2022 Refill [facility] [address] [place] [phone] Name, MD Soy [address] [place] [address] Migraine without status migrainosus, not intractable, unspecified [...] Description 05/15/2024 9:30 AM EST Office Visit [facility] [address] [place] [address] Dory Ray MD 230 [place] [address] 05/15/2024 11:00 AM EST Office Visit [facility] [address] [place] [address] 05/30/2024 10:15 AM EST Office Visit [address] [address] Dory Ray MD [address] [place] [address] documented as of this encounter Visit Diagnoses Diagnosis Migraine without status migrainosus, not intractable, unspecified migraine type documented in this encounter Additional Health Concerns Assessment Noted Time PHQ-9 Depression Total Score: 21 023 9:24 AM EDT documented as of this encounter Care Teams Psychiatric Therapist Relationship Specialty Start Date End Date Dory Ray MD [address] [place] [phone] PCP - General Family Medicine 01/03/19 Jeane Lemons Atmospheric TechnicianBaggage Smasher 11/09/23 documented as of this encounter
--- OUTSIDE RECORDS SUMMARY | 2024-05-14 10:16 | XMS_ITS | Encounter Summary ---
Author Organization [employer] Address [address] 7t [place] [address] Care Team Providers Care Sportspersons Name Role Phone Dory Ray MD Primary Care Provide r Encounter Details Date Type Department Care Team (Late st Contact Info) Description 01/12/2023 Abstract [facility] 230 [place] [address] Dory Ray MD 230 [place] [address] Social History Tobacco Use Types Packs/Day Years [...] Description 05/15/2024 9:30 AM EST Office Visit [facility] [address] [place] [address] Dory Ray MD [address] [place] [address] 05/15/2024 11:00 AM EST Office Visit [address] [address] 05/30/2024 10:15 AM EST Office Visit [address] [address] Dory Ray MD [address] [place] [address] documented as of this encounter Visit Diagnoses Not on filedocumented in this encounter Additional Health Concerns Assessment Noted Time PHQ-9 Depression Total Score: 24 023 9:07 AM EDT documented as of this encounter Care Teams Sportspersons Relationship Specialty Start Date End Date Dory Ray MD [address] [place] [address] PCP - General Family Medicine 01/03/19 Jeane Lemons Photonics Engineering TechnologistCasting Machine Set Up Operator 11/09/23 documented as of this encounter
--- OUTSIDE RECORDS SUMMARY | 2024-05-14 10:16 | XMS_ITS | Encounter Summary ---
Author Organization [employer] Address [address] [facility] [address] 7t [place] [address] Care Team Providers Care Clinical Trial Associate Name Role Phone Dory Ray MD Primary Care Provide r Reason for Visit * Reason Onset Date Comments antibiotic 12/09/2022 Encounter Details Date Type Department Care Team ([facility] st Contact Info) Description 12/09/2022 Telephone [facility] ADULT DENTAL [address] [place], [place] [phone] Dashawn Garcia, DDS [address] [place], [place] [phone] antibiotic Social History Tobacco Use Types Packs/Day Years [...] encounter Miscellaneous Notes * Telephone Encounter - Magalie Cobian - 12/10/2022 9:55 AM EDT Patient called back in again today looking for antibiotic and pain medication. She called in after 6 on 12/09 to speak to ton cylinder inspector and nothing was sent to pharmacy ton cylinder inspector side either. Can something be sent to the pharmacy. She states he is in more pain than she was in prior to having tooth extraction done . * Telephone Encounter - Magalie Cobian - 12/09/2022 3:56 PM EDT Patient had extraction on 12/07. She states she has been in pain and woke up swollen this morning. She is requesting an antibiotic be sent to the pharmacy. Informed patient that I wouuld send requestbut due to the time there is a possibility the message may not be read until tomorrow. Informed that if script is not in pharmacy by 6pm, she can call back and speak to ton cylinder inspector Or go to the emergency room. Patient understood DR documented in this encounter Plan of Treatment Upcoming Encounters Date Type Department Care Team (Late st Contact Info) Description 05/15/2024 9:30 AM EST Office Visit [facility] MEDICINE [address] [place] [address] Dory Ray MD [address] [place] [address] 05/15/2024 11:00 AM EST Office Visit [facility] MEDICINE [address] [place] [address] 05/30/2024 10:15 AM EST Office Visit [address] [address] Dory Ray MD [address] [place] [address] documented as of this encounter Visit Diagnoses Not on filedocumented in this encounter Additional Health Concerns Assessment Noted Time PHQ-9 Depression Total Score: 21 023 9:24 AM EDT documented as of this encounter Care Teams Clinical Trial Associate Relationship Specialty Start Date End Date Dory Ray MD [address] [place] [address] PCP - General Family Medicine 01/03/19 Jeane Lemons Dye Lab TechnicianParakeet Raiser 11/09/23 documented as of this encounter
--- OUTSIDE RECORDS SUMMARY | 2024-05-14 10:16 | XMS_ITS | Encounter Summary ---
Author Organization [employer] Address [address] [facility] [address] 7t [place] [address] Care Team Providers Care Writer Technical Publications Name Role Phone Dory Ray MD Primary Care Provide r Reason for Visit * Reason Onset Date Comments PA 07/29/2022 Encounter Details Date Type Department Care Team ([facility] st Contact Info) Description 07/29/2022 Telephone [facility] MEDICINE 230 [place] [address] Dory Ray MD 230 [place] [address] PA Social History Tobacco Use Types Packs/Day Years [...] encounter Miscellaneous Notes * Telephone Encounter - Bere Paulson - 07/29/2022 3:02 PM EDT PA for Lorazepam faxed to * Telephone Encounter - Neris Ivey - 07/29/2022 1:16 PM EDT Tc from pt stating that medication LORazepam (Ativan) 1 MG tablet Needs a PA from provider. Pt is currently without medication! documented in this encounter Plan of Treatment Upcoming Encounters Date Type Department Care Team (Late st Contact Info) Description 05/15/2024 9:30 AM EST Office Visit [address] [address] Dory Ray MD [address] [place] [address] 05/15/2024 11:00 AM EST Office Visit [address] [phone] 05/30/2024 10:15 AM EST Office Visit [address] [address] Dory Ray MD [address] [place] [address] [phone] documented as of this encounter Visit Diagnoses Not on filedocumented in this encounter Care Teams Writer Technical Publications Relationship Specialty Start Date End Date Dory Ray MD [address] [place] [address] [phone] PCP - General Family Medicine 01/03/19 Jeane Lemons Tier Lift OperatorInformation Systems Security Analyst 11/09/23 documented as of this encounter
== END 2024-05-14 09:59 | disposition home or self-care (01) ==
LOC: HO.HWS 09:34
PROVIDERS: PCP Internal Medicine; Visit Provider Obstetrics & Gynecology
DX: N93.9 Abnormal uterine and vaginal bleeding, unspecified (principal); N83.292 Other ovarian cyst, left side; R10.2 Pelvic and perineal pain; R31.29 Other microscopic hematuria; Z32.02 Encounter for pregnancy test, result negative
CPT/HCPCS: 58100; 99213

== ENCOUNTER 2024-05-14 09:34 | Outpatient (REF) | payer MEDICAID, SELFPAY ==
--- OUTSIDE RECORDS SUMMARY | 2024-05-14 10:47 | XMS_ITS | Encounter Summary ---
Author Organization [employer] Address [address] [facility] [address] 7t [place] [address] Care Team Providers Care Spine Nurse Name Role Phone Dory Ray MD Primary Care Provide r Reason for Visit * Reason Comments Med Refill Encounter Details Date Type Department Care Team ([facility] st Contact Info) Description 08/06/2023 Refill [facility] MEDICINE 230 [place], [place] [phone] Dory Ray MD 230 [place] [address] Chronic right-sided low back pain with right-sided [...] 05/15/2024 9:30 AM EST Office Visit [address] [address] Dory Ray MD [address] [place] [address] 05/15/2024 11:00 AM EST Office Visit [address] [address] 05/30/2024 10:15 AM EST Office Visit [address] [address] Dory Ray MD [address] [place] [address] documented as of this encounter Goals Goal [...] documented as of this encounter Care Teams Spine Nurse Relationship Specialty Start Date End Date Dory Ray MD 230 [place] [address] PCP - General Family Medicine 01/03/19 Jeane Lemons Shingle InspectorPsychology Assistant 11/09/23 documented as of this encounter
--- OUTSIDE RECORDS SUMMARY | 2024-05-14 10:47 | XMS_ITS | Encounter Summary ---
Author Organization [employer] Address [address] [facility] [address] 7t [place] [address] Care Team Providers Care Assistant Wrestling Coach Name Role Phone Dory Ray MD Primary Care Provide r Reason for Visit * Reason Comments Med Refill Encounter Details Date Type Department Care Team ([facility] st Contact Info) Description 05/20/2023 Refill [facility] MEDICINE 230 [place], [place] [phone] Dory Ray MD 230 [place], [place] [phone] Chronic pain syndrome Social History Tobacco Use [...] Description 05/15/2024 9:30 AM EST Office Visit [address] [address] Dory Ray MD [address] [place] [address] 05/15/2024 11:00 AM EST Office Visit [address] [address] 05/30/2024 10:15 AM EST Office Visit [address] [address] Dory Ray MD [address] [place] [address] documented as of this encounter Goals Goal [...] documented as of this encounter Care Teams Assistant Wrestling Coach Relationship Specialty Start Date End Date Dory Ray MD [address] [place] [address] PCP - General Family Medicine 01/03/19 Jeane Lemons Piece DyerOffice Workforce Planner 11/09/23 documented as of this encounter
--- OUTSIDE RECORDS SUMMARY | 2024-05-14 10:47 | XMS_ITS | Encounter Summary ---
Author Organization [employer] Address [address] [facility] [address] 7t [place] [address] Care Team Providers Care Under Trimmer Name Role Phone Dory Ray MD Primary Care Provide r Reason for Visit * Reason Onset Date Comments requesting call back 03/24/2022 Encounter Details Date Type Department Care Team ([facility] Contact Info) Description 03/24/2022 Telephone [facility] MEDICINE 230 [place] [address] Dory Ray MD 230 [place] [address] requesting call back Social History Tobacco Use [...] pt returning call Please contact pt at [phone] documented in this encounter Plan of Treatment Upcoming Encounters Date Type Department Care Team (Late st Contact Info) Description 05/15/2024 9:30 AM EST Office Visit [address] [address] Dory Ray MD [address] [place] [address] 05/15/2024 11:00 AM EST Office Visit [address] [address] 05/30/2024 10:15 AM EST Office Visit [address] [address] Dory Ray MD [address] [place] [address] [phone] documented as of this encounter Visit Diagnoses Not on filedocumented in this encounter Care Teams Under Trimmer Relationship Specialty Start Date End Date Dory Ray MD [address] [place] [address] [phone] PCP - General Family Medicine 01/03/19 Jeane Lemons Web Services ManagerFraming Mechanic 11/09/23 documented as of this encounter
--- OUTSIDE RECORDS SUMMARY | 2024-05-14 10:47 | XMS_ITS | Encounter Summary ---
Author Organization [employer] Address [address] [facility] [address] 7t [place] [address] Care Team Providers Care Sql Data Analyst Name Role Phone Dory Ray MD Primary Care Provide r Reason for Visit * Reason Comments Med Refill Encounter Details Date Type Department Care Team ([facility] st Contact Info) Description 02/22/2024 Refill [facility] CHC MED & PEDS [address] [place], [place] [phone] Dory Ray MD 230 [place] [address] Chronic pain syndrome; Anxiety Social History Tobacco [...] of the following? None of the above;Lead Luis M. Cintron or Pipes;Pests such as bugs, ants, or [...] Description 05/15/2024 9:30 AM EST Office Visit [address] [address] Dory Ray MD [address] [place] [address] 05/15/2024 11:00 AM EST Office Visit [address] [address] 05/30/2024 10:15 AM EST Office Visit [address] [address] Dory Ray MD [address] [place] [address] documented as of this encounter Goals Goal [...] documented as of this encounter Care Teams Sql Data Analyst Relationship Specialty Start Date End Date Dory Ray MD 230 [place] [address] PCP - General Family Medicine 01/03/19 Jeane Lemons Breakfast AttendantRn Progressive Care Unit 11/09/23 documented as of this encounter
--- OUTSIDE RECORDS SUMMARY | 2024-05-14 10:47 | XMS_ITS | Encounter Summary ---
Author Organization [employer] Address [address] [facility] 7t [place] [address] Care Team Providers Care Export Freight Manager Name Role Phone Dory Ray MD Primary Care Provide r Reason for Visit * Reason Comments Med Refill Encounter Details Date Type Department Care Team (Late Contact Info) Description 10/06/2022 Refill [facility] CHC MED & PEDS [address] [place], [place] [phone] Dory Ray MD [address] [place] [address] [phone] Chronic pain syndrome Social History Tobacco Use [...] Upcoming Encounters Date Type Department Care Team ([facility] Contact Info) Description 05/15/2024 9:30 AM EST Office Visit [facility] MEDICINE 230 [place], [place] [phone] Dory Ray MD 230 [place], [place] [phone] 05/15/2024 11:00 AM EST Office Visit [address] [phone] 05/30/2024 10:15 AM EST Office Visit [address] [address] Dory Ray MD [address] [place] [address] documented as of this encounter Visit Diagnoses Diagnosis Chronic pain syndrome documented in this encounter Additional Health Concerns Assessment Noted Time PHQ-9 Depression Total Score: 21 023 9:24 AM EDT documented as of this encounter Care Teams Export Freight Manager Relationship Specialty Start Date End Date Dory Ray MD [address] [place] [address] PCP - General Family Medicine 01/03/19 Jeane Lemons Dragsaw OperatorIt Auditor 11/09/23 documented as of this encounter
--- OUTSIDE RECORDS SUMMARY | 2024-05-14 10:47 | XMS_ITS | Encounter Summary ---
Author Organization [employer] Address 75 [facility] 7t h Floor [place] [phone] Care Team Providers Care Name Plate Stamper Name Role Phone Dory Ray MD Primary Care Provide r Reason for Visit * Reason Comments Med Refill Encounter Details Date Type Department Care Team ([facility] st Contact Info) Description 08/23/2023 Refill [facility] ADULT DENTAL 230 [place] [address] Dashawn Garcia DDS 230 [place] [address] Social History Tobacco Use Types Packs/Day Years [...] with others, in a hotel, in a assisted, living outside on the street, on a beach, in a car, or in a park 08/19/[address] you li ve. Do you have problems with any of the following? None of the above;Lead [place] or Pipes;Pests such as bugs, ants, or [...] 08/26/2023 10:05 AM EDT Good morning Dr eZng Patient is calling she feeling a lot [...] Description 05/15/2024 9:30 AM EST Office Visit [facility] MEDICINE [address] [place] [address] Dory Ray MD [address] [place] [address] 05/15/2024 11:00 AM EST Office Visit [address] [address] 05/30/2024 10:15 AM EST Office Visit [address] [place] [address] Dory Ray MD 230 [place] [address] documented as of this encounter Goals Goal [...] documented as of this encounter Care Teams Name Plate Stamper Relationship Specialty Start Date End Date Dory Ray MD 230 [place] [address] PCP - General Family Medicine 01/03/19 Jeane Lemons Strategic ManagerInspector Rubber Stamp Die 11/09/23 documented as of this encounter
--- OUTSIDE RECORDS SUMMARY | 2024-05-14 10:47 | XMS_ITS | Encounter Summary ---
Author Organization [employer] Address [address] [facility] [address] 7t [place] [address] Care Team Providers Care Fuel Cell Designer Name Role Phone Dory Ray MD Primary Care Provide r Reason for Visit * Reason Onset Date Comments Nurse Triage 10/11/2022 Encounter Details Date Type Department Care Team ([facility] st Contact Info) Description 10/11/2022 Telephone [facility] MEDICINE 230 [place] [address] Dory Ray MD 230 [place] [address] Nurse Triage Social History Tobacco Use Types [...] 10/11/2022 11:39 AM EDT Triage call with Floq drapery hemmer automatic [place] [id number] Pt calls with numerous concerns but, abdominal [...] abdominal discomfort. Advised Pt to come to [facility] to be seen and Pt reports will [...] accepted this outcome Please contact pt at [phone] (Yakut speaker) documented in this encounter Plan of Treatment Upcoming Encounters Date Type Department Care Team (Late st Contact Info) Description 05/15/2024 9:30 AM EST Office Visit [address] [address] Dory Ray MD [address] [place] [address] 05/15/2024 11:00 AM EST Office Visit [address] [address] 05/30/2024 10:15 AM EST Office Visit [address] [place] [address] Dory Ray MD 230 [place] [address] documented as of this encounter Visit Diagnoses Not on filedocumented in this encounter Additional Health Concerns Assessment Noted Time PHQ-9 Depression Total Score: 21 023 9:24 AM EDT documented as of this encounter Care Teams Fuel Cell Designer Relationship Specialty Start Date End Date Dory Ray MD 230 [place] [address] PCP - General Family Medicine 01/03/19 Jeane Lemons Meat ApprenticeMarketing Support Assistant 11/09/23 documented as of this encounter
--- OUTSIDE RECORDS SUMMARY | 2024-05-14 10:47 | XMS_ITS | Encounter Summary ---
Author Organization [employer] Address [address] [facility] [address] 7t [place] [address] Care Team Providers Care Client Support Representative Name Role Phone Dory Ray MD Primary Care Provide r Reason for Visit * Reason Comments Med Refill Encounter Details Date Type Department Care Team ([facility] st Contact Info) Description 03/07/2022 Refill [facility] MEDICINE [address] [place] [address] Emilia De La Torre FNP [address] [place] [address] Fibromyalgia (Primary Dx) Social History Tobacco Use [...] . Pt stated will be traveling to [place] on 03/10/22. Last seen on 01/20/22. PCP Dr. Garcia documented in this encounter Plan of Treatment Upcoming Encounters Date Type Department Care Team (Late st Contact Info) Description 05/15/2024 9:30 AM EST Office Visit [facility] MEDICINE [address] [place] [address] Dory Ray MD [address] [place] [address] 05/15/2024 11:00 AM EST Office Visit [address] [address] 05/30/2024 10:15 AM EST Office Visit [address] [address] Dory Ray MD [address] [place] [address] documented as of this encounter Visit Diagnoses Diagnosis Fibromyalgia- Primary Unspecified myalgia and myositis documented in this encounter Care Teams Client Support Representative Relationship Specialty Start Date End Date Dory Ray MD [address] [place] [address] PCP - General Family Medicine 01/03/19 Jeane Lemons Dust Collector AttendantScrummaster 11/09/23 documented as of this encounter
--- OUTSIDE RECORDS SUMMARY | 2024-05-14 10:47 | XMS_ITS | Encounter Summary ---
Author Organization [employer] Address 75 [facility] 7t [place] [address] Care Team Providers Care Rack Maker Name Role Phone Dory Ray MD Primary Care Provide r Reason for Visit * Reason Comments Med Refill Encounter Details Date Type Department Care Team (Late Contact Info) Description 06/22/2022 Refill [facility] MEDICINE [address] [place] [address] [phone] Name, MD Soy [address] [place] [address] [phone] Recurrent major depressive episodes, moderate (CMS/HCC); Migraine [...] Description 05/15/2024 9:30 AM EST Office Visit [facility] MEDICINE [address] [place] [address] Dory Ray MD 230 [place], [place] [phone] 05/15/2024 11:00 AM EST Office Visit [address] [phone] 05/30/2024 10:15 AM EST Office Visit [address] [address] Dory Ray MD [address] [place] [address] [phone] documented as of this encounter Visit Diagnoses Diagnosis Recurrent major depressive episodes, moderate (CMS/HCC) Major depressive disorder, recurrent episode, moderate Migraine without status migrainosus, not intractable, unspecified migraine type documented in this encounter Care Teams Rack Maker Relationship Specialty Start Date End Date Dory Ray MD [address] [place] [address] [phone] PCP - General Family Medicine 01/03/[address] Registrar 11/09/23 documented as of this encounter
--- OUTSIDE RECORDS SUMMARY | 2024-05-14 10:47 | XMS_ITS | Encounter Summary ---
Author Organization [employer] Address [address] [facility] [address] 7t [place] [address] Care Team Providers Care Automobile Body Repair Supervisor Name Role Phone Dory Ray MD Primary Care Provide r Encounter Details Date Type Department Care Team (Late Contact Info) Description 04/07/2022 Orders Only [facility] MEDICINE [address] [place] [address] Rohini Middleton MD [address] [place] [address] Pain (Primary Dx) Social History Tobacco Use [...] Description 05/15/2024 9:30 AM EST Office Visit [facility] MEDICINE [address] [place] [address] Dory Ray MD [address] [place] [address] 05/15/2024 11:00 AM EST Office Visit [facility] MEDICINE [address] [place] [address] [phone] 05/30/2024 10:15 AM EST Office Visit [address] [phone] Dory Ray MD [address] [place] [address] [phone] documented as of this encounter Visit Diagnoses Diagnosis Pain- Primary Generalized pain documented in this encounter Care Teams Automobile Body Repair Supervisor Relationship Specialty Start Date End Date Dory Ray MD [address] [place] [address] [phone] PCP - General Family Medicine 01/03/19 Jeane Lemons Physicist AcousticsBarista 11/09/23 documented as of this encounter
--- OUTSIDE RECORDS SUMMARY | 2024-05-14 10:47 | XMS_ITS | Encounter Summary ---
Author Organization [employer] Address [address] [facility] [address] 7t [place] [address] Care Team Providers Care Oracle Fusion Middleware Architect Name Role Phone Dory Ray MD Primary Care Provide r Reason for Visit * Reason Comments Med Refill Encounter Details Date Type Department Care Team ([facility] st Contact Info) Description 04/08/2024 Refill [facility]INE 230 [place] [address] Dory Ray MD 230 [place] [address] Chronic right-sided low back pain with right-sided [...] of the following? None of the above;Lead [place] or Pipes;Pests such as bugs, ants, or [...] Description 05/15/2024 9:30 AM EST Office Visit [address] [address] Dory Ray MD [address] [place] [address] 05/15/2024 11:00 AM EST Office Visit [address] [address] 05/30/2024 10:15 AM EST Office Visit [address] [address] Dory Ray MD [address] [place] [address] documented as of this encounter Goals Goal [...] documented as of this encounter Care Teams [employer] Fusion Middleware Architect Relationship Specialty Start Date End Date Dory Ray MD [address] [place] [address] PCP - General Family Medicine 01/03/19 Jeane Lemons Zoology TeacherStores Naval 11/09/23 documented as of this encounter
--- OUTSIDE RECORDS SUMMARY | 2024-05-14 10:48 | XMS_ITS | Encounter Summary ---
Author Organization [employer] Address [address] [facility] [address] 7t [place] [address] Care Team Providers Care Order Administrator Name Role Phone Dory Ray MD Primary Care Provide r Reason for Visit * Reason Comments Med Refill Encounter Details Date Type Department Care Team ([facility] st Contact Info) Description 04/16/2024 Refill [facility] MEDICINE 230 [place], [place] [phone] Katerine Killian MD 230 [place] [address] Chronic right-sided low back pain with right-sided [...] of the following? None of the above;Lead [place] or Pipes;Pests such as bugs, ants, or [...] 05/15/2024 9:30 AM EST Office Visit [address] [address] Dory Ray MD [address] [place] [address] 05/15/2024 11:00 AM EST Office Visit [address] [address] 05/30/2024 10:15 AM EST Office Visit [address] [address] Dory Ray MD [address] [place] [address] documented as of this encounter Goals Goal [...] documented as of this encounter Care Teams Order Administrator Relationship Specialty Start Date End Date Dory Ray MD 230 [place] [address] PCP - General Family Medicine 01/03/19 Jeane Lemons Display Card WriterHome Health Nurse 11/09/23 documented as of this encounter
--- OUTSIDE RECORDS SUMMARY | 2024-05-14 10:48 | XMS_ITS | Encounter Summary ---
Author Organization [employer] Address [address] [facility] [address] 7t [place] [address] Care Team Providers Care Site Coordinator Name Role Phone Dory Ray MD Primary Care Provide r Reason for Visit * Reason Onset Date Comments Durable Medical Equipment 03/21/2024 Encounter Details Date Type Department Care Team ([facility] st Contact Info) Description 03/21/2024 Telephone [facility] MEDICINE 230 [place] [address] Dory Ray MD 230 [place] [address] Durable Medical Equipment Social History Tobacco Use [...] with others, in a hotel, in a half-way, living outside on the street, on a beach, in a car, or in a park 08/19/[address] you li ve. Do you have problems with any of the following? None of the above;Lead [place] or Pipes;Pests such as bugs, ants, or [...] requesting DME for Wipes. Contact pt at [phone] documented in this encounter Plan of Treatment Upcoming Encounters Date Type Department Care Team (Late st Contact Info) Description 05/15/2024 9:30 AM EST Office Visit [address] [address] Dory Ray MD [address] [place] [address] 05/15/2024 11:00 AM EST Office Visit [address] [address] 05/30/2024 10:15 AM EST Office Visit [address] [place] [address] Dory Ray MD 230 [place] [address] documented as of this encounter Goals Goal [...] documented as of this encounter Care Teams Site Coordinator Relationship Specialty Start Date End Date Dory Ray MD 230 [place] [address] PCP - General Family Medicine 01/03/19 Jeane Lemons Spa Manager/EstheticianDistillation Operator 11/09/23 documented as of this encounter
--- OUTSIDE RECORDS SUMMARY | 2024-05-14 10:48 | XMS_ITS | Encounter Summary ---
Author Organization [employer] Address [address] [facility] [address] [place] [address] Care Team Providers Care Mining Professionals Name Role Phone Dory Ray MD Primary Care Provide r Reason for Visit * Reason Comments Med Refill Encounter Details Date Type Department Care Team ([facility] st Contact Info) Description 05/03/2024 Refill [facility] [address] [place] [address] Dory Ray MD [address] [place] [phone] Essential hypertension Social History Tobacco Use Types [...] of the following? None of the above;Lead [place] or Pipes;Pests such as bugs, ants, or [...] Description 05/15/2024 9:30 AM EST Office Visit [address] [address] Dory Ray MD [address] [place] [address] 05/15/2024 11:00 AM EST Office Visit [address] [address] 05/30/2024 10:15 AM EST Office Visit [address] [address] Dory Ray MD [address] [place] [phone] documented as of this encounter Goals Goal [...] documented as of this encounter Care Teams Mining Professionals Relationship Specialty Start Date End Date Dory Ray MD [address] [place] [phone] PCP - General Family Medicine 01/03/19 Jeane Lemons Lining FellerDedenter 11/09/23 documented as of this encounter
--- OUTSIDE RECORDS SUMMARY | 2024-05-14 10:48 | XMS_ITS | Encounter Summary ---
Author Organization [employer] Address [address] [facility] [address] 7t [place] [address] Care Team Providers Care Jacquard Loom Heddles Tier Name Role Phone Dory Ray MD Primary Care Provide r Reason for Visit * Reason Comments Med Refill Encounter Details Date Type Department Care Team ([facility] st Contact Info) Description 04/16/2024 Refill [facility]INE [address] [place] [address] Dory Ray MD [address] [place] [address] Social History Tobacco Use Types Packs/Day Years [...] with others, in a hotel, in a residential, living outside on the street, on a beach, in a car, or in a park 08/19/[address] you li ve. Do you have problems with any of the following? None of the above;Lead [place] or Pipes;Pests such as bugs, ants, or [...] Description 05/15/2024 9:30 AM EST Office Visit [address] [address] Dory Ray MD [address] [place] [address] 05/15/2024 11:00 AM EST Office Visit [address] [address] 05/30/2024 10:15 AM EST Office Visit [address] [address] Dory Ray MD [address] [place] [phone] documented as of this encounter Goals Goal [...] documented as of this encounter Care Teams Jacquard Loom Heddles Tier Relationship Specialty Start Date End Date Dory Ray MD [address] [place] [phone] PCP - General Family Medicine 01/03/19 Jeane Lemons Rib KnitterConfiguration Management Administrator 11/09/23 documented as of this encounter
--- OUTSIDE RECORDS SUMMARY | 2024-05-14 10:48 | XMS_ITS | Encounter Summary ---
Author Organization [employer] Address [address] [facility] [address] 7t [place] [address] Care Team Providers Care Low Altitude Air Defense Officer Name Role Phone Dory Ray MD Primary Care Provide r Reason for Visit * Reason Comments Med Refill Encounter Details Date Type Department Care Team ([facility] st Contact Info) Description 01/17/2023 Refill [facility] [address] [place], [place] [phone] Dory Ray MD [address] [place] [address] Migraine without status migrainosus, not intractable, unspecified [...] Description 05/15/2024 9:30 AM EST Office Visit [address] [address] Dory Ray MD [address] [place] [address] 05/15/2024 11:00 AM EST Office Visit [address] [address] 05/30/2024 10:15 AM EST Office Visit [address] [address] Dory Ray MD [address] [place] [address] documented as of this encounter Visit Diagnoses Diagnosis Migraine without status migrainosus, not intractable, unspecified migraine type Chronic right-sided low back pain with right-sided sciatica documented in this encounter Additional Health Concerns Assessment Noted Time PHQ-9 Depression Total Score: 24 023 9:07 AM EDT documented as of this encounter Care Teams Low Altitude Air Defense Officer Relationship Specialty Start Date End Date Dory Ray MD [address] [place] [address] PCP - General Family Medicine 01/03/19 Jeane Lemons Saw SharpenerAutomation Software Engineer 11/09/23 documented as of this encounter
--- OUTSIDE RECORDS SUMMARY | 2024-05-14 10:48 | XMS_ITS | Encounter Summary ---
Author Organization [employer] Address [address] [facility] 7t [place] [address] Care Team Providers Care Biometrics Instructor Name Role Phone Dory Ray MD Primary Care Provide r Reason for Visit * Reason Comments Med Refill Encounter Details Date Type Department Care Team (Late Contact Info) Description 12/09/2022 Refill [facility] MED[facility]INE [address] [place] [address] [phone] Dory Ray MD [address] [place] [address] [phone] Anxiety Social History Tobacco Use Types Packs/Day [...] Description 05/15/2024 9:30 AM EST Office Visit [facility] [address] [place] [address] [phone] Dory Ray MD [address] [place] [address] [phone] 05/15/2024 11:00 AM EST Office Visit [facility] [address] [place] [address] [phone] 05/30/2024 10:15 AM EST Office Visit [address] [address] Dory Ray MD [address] [place] [address] documented as of this encounter Visit Diagnoses Diagnosis Anxiety Anxiety state, unspecified documented in this encounter Additional Health Concerns Assessment Noted Time PHQ-9 Depression Total Score: 21 023 9:24 AM EDT documented as of this encounter Care Teams Biometrics Instructor Relationship Specialty Start Date End Date Dory Ray MD [address] [place] [phone] PCP - General Family Medicine 01/03/19 Jeane Lemons Confectionery MakerChip Bin Operator 11/09/23 documented as of this encounter
--- OUTSIDE RECORDS SUMMARY | 2024-05-14 10:48 | XMS_ITS | Encounter Summary ---
Author Organization [employer] Address [address] [facility] [address] 7t [place] [address] Care Team Providers Care Nuclear Licensing Engineer Name Role Phone Dory Ray MD Primary Care Provide r Encounter Details Date Type Department Care Team (Late st Contact Info) Description 01/12/2023 Abstract [facility] MEDICINE [address] [place] [address] Dory Ray MD 230 [place] [address] Social History Tobacco Use Types Packs/Day Years [...] Description 05/15/2024 9:30 AM EST Office Visit [facility] MED[facility]INE [address] [place] [address] Dory Ray MD [address] [place] [address] 05/15/2024 11:00 AM EST Office Visit [address] [address] 05/30/2024 10:15 AM EST Office Visit [address] [address] Dory Ray MD [address] [place] [address] documented as of this encounter Visit Diagnoses Not on filedocumented in this encounter Additional Health Concerns Assessment Noted Time PHQ-9 Depression Total Score: 24 023 9:07 AM EDT documented as of this encounter Care Teams Nuclear Licensing Engineer Relationship Specialty Start Date End Date Dory Ray MD [address] [place] [phone] PCP - General Family Medicine 01/03/19 Jeane Lemons [employer] Weapons SergeantGastroenterology Teacher 11/09/23 documented as of this encounter
--- OUTSIDE RECORDS SUMMARY | 2024-05-14 10:48 | XMS_ITS | Encounter Summary ---
Author Organization [employer] Address [address] [facility] [address] 7t [place] [address] Care Team Providers Care Research Tech Name Role Phone Dory Ray MD Primary Care Provide r Reason for Visit * Reason Onset Date Comments Prior Authorization 02/16/2023 LORazepam (A tivan) 1 MG Encounter Details Date Type Department Care Team ([facility] Contact Info) Description 02/16/2023 Telephone [facility]INE [address] [place] [address] Dory Ray MD 230 [place] [address] Prior Authorization (LORazepam (Ativan) 1 MG ) [...] with others, in a hotel, in a nursing home, living outside on the street, on a beach, in a car, or in a park 08/19/[address] you li ve. Do you have problems with any of the following? None of the above;Lead [place] or Pipes;Pests such as bugs, ants, or [...] Tc from pt requesting status on PA. [facility] pharmacy has not received anything. * Telephone Encounter - Radha Long - 02/16/2023 10:35 AM EST Tc from pt stating needs a PA for script on LORazepam (Ativan) 1 MG tablet, Deli/Bakery Associate confirmed with pharmacy, [facility] has faxed PA. documented in this encounter Plan of Treatment Upcoming Encounters Date Type Department Care Team (Late st Contact Info) Description 05/15/2024 9:30 AM EST Office Visit [address] [address] Dory Ray MD [address] [place] [address] [phone] 05/15/2024 11:00 AM EST Office Visit [address] [phone] 05/30/2024 10:15 AM EST Office Visit [address] [phone] Dory Ray MD [address] [place] [address] [phone] documented as of this encounter Goals Goal [...] documented as of this encounter Care Teams Research Tech Relationship Specialty Start Date End Date Dory Ray MD [address] [place] [address] [phone] PCP - General Family Medicine 01/03/19 Jeane Lemons Lead Case ManagerSite Monitor 11/09/23 documented as of this encounter
--- OUTSIDE RECORDS SUMMARY | 2024-05-14 10:48 | XMS_ITS | Encounter Summary ---
Author Organization [employer] Address [address] [facility] [address] 7t [place] [address] Care Team Providers Care Clinical Specialist Vascular Name Role Phone Dory Ray MD Primary Care Provide r Reason for Visit * Reason Comments Med Refill Encounter Details Date Type Department Care Team ([facility] st Contact Info) Description 12/29/2022 Refill [facility] [address] [place] [address] Sunshine James, DO [address] [place] [address] Strain of neck muscle, initial encounter; Neck [...] 05/15/2024 9:30 AM EST Office Visit [address] [address] Dory Ray MD [address] [place] [address] 05/15/2024 11:00 AM EST Office Visit [address] [address] 05/30/2024 10:15 AM EST Office Visit [address] [address] Dory Ray MD [address] [place] [phone] documented as of this encounter Visit Diagnoses Diagnosis Strain of neck muscle, initial encounter Neck pain Cervicalgia documented in this encounter Additional Health Concerns Assessment Noted Time PHQ-9 Depression Total Score: 24 023 9:07 AM EDT documented as of this encounter Care Teams Clinical Specialist Vascular Relationship Specialty Start Date End Date Dory Ray MD [address] [place] [phone] PCP - General Family Medicine 01/03/19 Jeane Lemons Ladle RepairmanIt Business Systems Analyst 11/09/23 documented as of this encounter
--- OUTSIDE RECORDS SUMMARY | 2024-05-14 10:48 | XMS_ITS | Encounter Summary ---
Demographics Address [address] [facility] [address] [place] [address] Work Phone Mobile Phone Email Address Preferred Language es Marital Status Unknown Jain Affiliation Unknown Race Other Race Ethnic Group or Author Organization [employer] Address [address] [facility] [address]t [place] [address] Care Team Providers Care Assistant Case Manager Name Role Phone Dory Ray MD Primary Care Provide r Encounter Details Date Type Department Care Team (Late st Contact Info) Description 03/23/2024 Orders Only [facility] External Provider, [facility] Social History Tobacco Use Types Packs/Day [...] of the following? None of the above;Lead [place] or Pipes;Pests such as bugs, ants, or [...] Description 05/15/2024 9:30 AM EST Office Visit [address] [address] Dory Ray MD [address] [place] [address] 05/15/2024 11:00 AM EST Office Visit [address] [address] 05/30/2024 10:15 AM EST Office Visit [address] [address] Dory Ray MD [address] [place] [address] documented as of this encounter Goals Goal [...] EST Narrative 05/09/2024 8:06 AM EST ? [facility] ?[address] ?[place] [address] ? Ultrasound Report ? Signed ? Patient: Kurt,Marlene ?MR#: [id number] ?? [id number] ? : 1975 ?Acct:[id number] ? Age/Sex: 48 / F ?ADM Date: 03/23/24 ? Loc: HO.US ? Attending Dr: Macho Sarkar MD ? Ordering Physician: Macho Sarkar MD ?? Date of Service: 03/23/24 ?? Procedure(s): US pelvic and transvaginal ?? Accession Number(s): [id number] ? cc: Dory Ray MD; Macho Sarkar [...] DD/ 1102 ? TD/TT: 03/23/24 1124 ? Er Medical Technician: ? Procedure Note Donchadwickter, Image - 05/09/2024 [place] [address] Ultrasound Report Signed Patient: Crissy Hicks#: [id number] : 1975Acct:[id number] Age/Sex: 48 / FADM Date: 03/23/24 Loc: HO.US Attending Dr: Macho Sarkar MD Ordering Physician: Macho Sarkar MD Date of Service: 03/23/24 Procedure(s): US pelvic and transvaginal Accession Number(s): [id number] cc: Dory Ray MD; Macho Sarkar MD [...] 05/09/24 0803 DD/ 1102 TD/TT: 03/23/24 1124 Er Medical Technician: [facility] External Provider IMG US PROCEDURES Edited Result - Final documented in this encounter Visit Diagnoses Not on filedocumented in this encounter Additional Health Concerns Assessment Noted Time PHQ-9 Depression Total Score: 24 024 9:01 AM EDT documented as of this encounter Care Teams Assistant Case Manager Relationship Specialty Start Date End Date Dory Ray MD [address] [place] [address] PCP - General Family Medicine 01/03/19 Jeane Lemons Senior Android DeveloperSign Painter Helper 11/09/23 documented as of this encounter
--- OUTSIDE RECORDS SUMMARY | 2024-05-14 10:48 | XMS_ITS | Clinical Summary ---
Author Organization [employer] Address [address] [facility] [address] [place] [address] Care Team Providers Care Wash House Supervisor Name Role Phone Dory Ray MD [...] PRN Indication: bulging lumbar disc, fibromyalgia Last LIDAR TECHNICIAN Agreement: 04/13/23 Additional considerations/risk factors: BZO Tier II (LIDAR TECHNICIAN visits Q3 months) - last evaluated Mar [...] and non-pharm modalities Continues with COT. See story analyst for urine/pill count. Assessment & Plan (01/10/2024 [...] Marlene agrees to go in person to [facility] to follow up on status [...] Team Description 05/03/2024 Refill [facility] [address] [place] [address] Dory Ray MD Essential hypertension 04/17/2024 Telephone [facility] MEDIC[facility] [address] [place] [address] Dustin Hickey MA Durable Medical Equipment 04/17/2024 Telephone [facility] MED[facility] [address] [place] [address] Dory Ray MD ER Follow-up 04/16/2024 Refill [facility] [address] [place] [address] Katerine Killian MD Chronic right-sided low back pain with right-sided sciatica 04/16/2024 Refill [facility] [address] [place] [address] Dory Ray MD 04/13/2024 Orders Only GENERIC EXTERNAL DATA DEPARTMENT Provider, Generic External Data 04/12/2024 Orders Only GENERIC EXTERNAL DATA DEPARTMENT Provider, Generic External Data 04/12/2024 Telephone [facility] [address] [place] [address] Dory Ray MD Nurse Triage 04/11/2024 Refill [facility] [address] [place] [address] Dory Ray MD Migraine without status migrainosus, not intractable, unspecified migraine type 04/10/2024 Refill [facility] [address] [place] [address] Dory Ray MD Chronic right-sided low back pain with right-sided sciatica 04/09/2024 Orders Only [facility] External Provider, [facility] 04/08/2024 Refill [facility] [address] [place] [address] Dory Ray MD Chronic right-sided low back pain with right-sided sciatica; Essential hypertension 03/24/2024 Refill [facility] [address] [place] [address] Dory Ray MD 03/23/2024 Orders Only [facility] External Provider, [facility] 03/21/2024 Telephone [facility] [address] [place] [address] Dory Ray MD Durable Medical Equipment 03/20/2024 Telephone [facility] [address] [place] [address] Dory Ray MD Med Refill 03/19/2024 Refill [facility] [address] [place] [address] Dory Ray MD Essential hypertension 03/19/2024 Refill [facility] [address] [place] [address] Dory Ray MD Chronic right-sided low back pain with right-sided sciatica 03/13/2024 11:00 AM EST Office Visit [facility] [address] [place] [address] Emilia De La Torre, MEDICAL SCIENTIST Bulging lumbar disc (Primary Dx); Fibromyalgia; Long-term current use of opiate analgesic 03/13/2024 Telephone [facility] [address] [place] [address] Rosalinda Fields, DARWIN LIDAR TECHNICIAN Renewal today; Recomend LIDAR TECHNICIAN 2 Level 03/13/2024 Travel 03/08/2024 Refill [facility] [address] [place] [address] Cece Velasquez MD Dermatitis 03/08/2024 Refill [facility] [address] [place] [address] Dory Ray MD Chronic right-sided low back pain with right-sided sciatica; Dermatitis 02/29/2024 Telephone [facility] [address] [place] [phone] Dory Ray MD callback requested 02/28/2024 10:00 AM EST Office Visit [address] [address] Dory Ray MD Vaginal discharge (Primary Dx); Left upper quadrant abdominal pain; Acute maxillary sinusitis, recurrence not specified; Migraine without status migrainosus, not intractable, unspecified migraine type; UTI symptoms 02/28/2024 Travel 02/22/2024 Refill [facility] [address] [place] [phone] Rosalinda Fields RN Anxiety; Chronic right-sided low back pain with right-sided sciatica 02/22/2024 Refill [facility] [address] [place], [place] [phone] Dory Ray MD Chronic pain syndrome; Anxiety 02/22/2024 Refill [facility] [address] [place] [address] Dory Ray MD Chronic right-sided low back pain with right-sided sciatica 02/17/2024 Patient Outreach [address] [address] Dory Ray MD Pre-visit Planning (SDOH screening completed on 08/19/2023) 02/14/[address] [address] Dory Ray MD Chronic right-sided low back [...] with others, in a hotel, in a long-term, living outside on the street, on a beach, in a car, or in a park 08/19/[address] you li ve. Do you have problems with any of the following? None of the above;Lead [place] or [place];Pests such as bugs, ants, or [...] Description 05/15/2024 9:30 AM EST Office Visit [address] [address] Dory Ray MD [address] [place] [address] 05/15/2024 11:00 AM EST Office Visit [address] [address] 05/30/2024 10:15 AM EST Office Visit [address] [address] Dory Ray MD [address] [place] [address] Health Maintenance Due Date Last Done Comments [...] EST Narrative 04/14/2024 1:25 PM EST ? [facility] ?[address] ?[place] [address] ? Magnetic Resonance Report ? Signed ? Patient: Kurt,Marlene ?MR#: [id number] ?? 7446 ? : 1975 ?Acct:[id number] ? Age/Sex: 48 / F ?ADM Date: 04/13/24 ? Loc: HO.IMC ?453-1 ? Attending Dr: Rohini STOCKTON ? Ordering Physician: Nader Stringer MD ?? Date of Service: 04/13/24 ?? Procedure(s): MR head/brain wo con ?? Accession Number(s): [id number] ? cc: Dory Ray MD; Nader Stringer MD ? CLINICAL HISTORY: slurred speech ? MR Brain without gadolinium ? Comparison: CT/SR - CT HEAD FOR STROKE - 04/13/24 17:26 EST ?? MR - MRI BRAIN O [id number] - 06/07/06 00:00 EST ? Findings: ?? [...] DD/ 1323 ? TD/TT: 04/14/24 1323 ? Chemical Technician: ? Procedure Note Rosemary Kang - 04/14/[address] [place] [address] Magnetic Resonance Report Signed Patient: Crissy Hicks#: [id number] : 1975Acct:[id number] Age/Sex: 48 / FADM Date: 04/13/24 Loc: [place] [place]: Rohini STOCKTON Ordering Physician: Nader Stringer MD Date of Service: 04/13/24 Procedure(s): MR head/brain wo con Accession Number(s): [id number] cc: Dory Ray MD; Nader Stringer MD CLINICAL HISTORY: slurred speech MR Brain without gadolinium Comparison: CT/SR - CT HEAD FOR STROKE - 04/13/24 17:26 EST MR - MRI BRAIN O [id number] - 06/07/06 00:00 EST Findings: No restricted [...] 04/14/24 1324 DD/ 1323 TD/TT: 04/14/24 1323 Chemical Technician: [facility] External Provider IMG MRI PROCEDURES Edited Result - Final * CTA Head Stroke w/ and w/o Contrast (04/13/2024 7:07 PM EST) Anatomical Region Laterality Modality Computed Tomogra phy 04/13/2024 7:07 PM EST Narrative 04/13/2024 7:08 PM EST ? [facility] ?[address] ?[place] [address] ? CT Scan Report ? Signed ? Patient: Kurt,Marlene ?MR#: [id number] ?? 7446 ? : 1975 ?Acct:[id number] ? Age/Sex: 48 / F ?ADM Date: 01/10/25 ? Loc: HO.ED ? Attending Dr: ? Ordering Physician: Thuy Duffy DO ?? Date of Service: 04/13/24 ?? Procedure(s): CT angio head neck STROKE ?? Accession Number(s): [id number] ? cc: Dory Ray MD; Thuy Duffy DO ? Report Number: ?? [id number]: Total DLP = 1542.00 mGy-cm ? CLINICAL HISTORY: aphasia ? CT angiography head and neck with contrast and CT venogram of the head. 3D ?? Postprocessing. ? Comparison: CR/SR - NECK SOFT TISSUE [id number] - 09/08/18 23:26 EDT ? Findings: ?? [...] ? DD/ 06 ? TD/TT: 04/13/241906 ? Chemical Technician: ? Procedure Note Rosemary Kang - 04/13/[address] [address] [address] Scan Report Signed Patient: Crissy Hicks#: [id number] : 1975Acct:[id number] Age/Sex: 48 / FADM Date: 04/13/24 Loc: HO.ED Attending Dr: Ordering Physician: Thuy Duffy DO Date of Service: 04/13/24 Procedure(s): CT angio head neck STROKE Accession Number(s): [id number] cc: Dory Ray MD; Claiborne,Mel Report Number: [id number]: Total DLP = 1542.00 mGy-cm CLINICAL HISTORY: aphasia CT angiography head and neck with contrast and CT venogram of the head. 3D Postprocessing. Comparison: CR/SR - NECK SOFT TISSUE [id number] - 09/08/18 23:26 EDT Findings: Evaluation is [...] in OV> 04/13/241906 DD/ 06 TD/TT: 04/13/241906 Chemical Technician: [facility] External Provider IMG CT PROCEDURES Final Result * (ABNORMAL) Urinalysis, Complete, with Reflex to Culture (04/13/2024 6:20 PM EST) Color Urine Yellow [facility] Appearance Urine Clear [facility] PH 7.0 5.0 - 9.0 [facility] Glucose Urine UA Negative Negative mg/dL [facility] Urine Blood Large (3+)(A) Negative [facility] Specific [place] - Urine 1.015 1.005 - 1.025 [facility] Urine Protein Negative Neg-Trace mg/dL [facility] Urine Ketones Negative Negative mg/dL [facility] Nitrite Urine Negative Negative [facility] Leukocyte Esterase Urine Trace(A) Negative [facility] RBC Urine >20(A) 0 - 2 /HPF [facility] Urine WBC 0-5 0 - 5 /HPF [facility] Urine Squamous Epithelial Cell 0-2 0 - 2 /HPF [facility] Urine Bacteria None Seen None Seen [facility] Hyaline Casts, Urine 0-2 0 - 2 /LPF [facility] 04/13/2024 6:20 PM EST 04/13/2024 6:23 PM EST Narrative [facility] - 04/13/2024 6:45 PM EST [id number], Clean Catch us Generic External Data Provider LAB URINE ORDERAB LES Final Result [facility] [address] [place] [address] [phone] * Drug Monitoring, Panel 1, Screen, Urine (04/13/2024 6:20 PM EST) Opiate Screen Urine Not Detected Not Detect [facility] Comment:Opiate cut-off is 30 0 ng/mL.Positive results are unconfirmed and should not be used fornon-medical purposes. Barbiturates, Urine Not Detected Not Detect [facility] Comment:Barbiturate cut-off is 200 ng/mL.Positive results are unconfirmed and should not be used fornon-medical purposes. Phencyclidine Screen Urine Not Detected Not Detect [facility] Comment:Phencyclidine cut-of f is 25 ng/mL.Positive results are unconfirmed and should not be used fornon-medical purposes. Amphetamine Screen Urine Not Detected Not Detect [facility] Comment:Amphetamine cut-off is 1000 ng/mL.Positive results are unconfirmed and should not be used fornon-medical purposes. Benzodiazepines Screen Urine Not Detected Not Detect [facility] Comment:Benzodiazepine cut-o ff is 200 ng/mL.Positive results are unconfirmed and should not be used fornon-medical purposes. Cocaine Screen Urine Not Detected Not Detect [facility] Comment:Cocaine cut-off is 3 00 ng/mL.Positive results are unconfirmed and should not be used fornon-medical purposes. Cannabinoid Screen Urine Not Detected Not Detect [facility] Comment:Cannabinoid cut-off is 50 ng/mL.Positive results are unconfirmed and should not be used fornon-medical purposes. Methadone Screen, Urine Not Detected Not Detect ng/mL [facility] Comment:Methadone cut-off is 300 ng/mL.Positive results are unconfirmed and should not be used fornon-medical purposes. FENTANYL URINE Not Detected Not Detect [facility] Comment:Fentanyl cut-off is 1 ng/mL.Positive results are unconfirmed and should not be used fornon-medical purposes. Oxycodone Urine Screen Not Detected Not Detect ng/mL [facility] Comment:Oxycodone cut-off is 100 ng/mL.Positive results are unconfirmed and should not be used fornon-medical purposes. Buprenorphine Screen Not Detected Not Detect ng/mL [facility] Comment:Buprenorphine cut-of f is 5 ng/mL.Positive results are unconfirmed and should not be used fornon-medical purposes. 04/13/2024 6:20 PM EST 04/13/2024 6:23 PM EST [employer] External Data Provider LAB URINE ORDERAB LES Final Result Performing Organization Address [facility] Co de Phone Number [facility] [address] [place] [phone] * High Sensitivity Troponin I (04/12/2024 10:00 AM EST) TROPONIN I HIGH SENSITIVITY <2.7 <3.5 - 17.0 ng/L [facility] Comment:The [place] high sens itivity Troponin-I results should beused in conjunction with other diagnostic information suchas ECG, clinical observations and information, and patientsymptoms to aid in the diagnosis of [place]. 04/12/2024 10:0 0 AM EST 04/12/2024 10:04 AM EST us Generic External Data Provider LAB BLOOD ORDERAB LES Final Result Performing Organization Address City/[facility]/ZIP Co de Phone Number [facility] [address] [place] [phone] * SARS-CoV-2 RNA, Influenza A/B, and RSV RNA, Ql NAAT (04/12/2024 10:00 AM EST) Influenza A PCR NEGATIVE Negative [facility] Influenza B PCR NEGATIVE Negative [facility] Resp Syncy Virus RNA Qual PCR NEGATIVE Negative [facility] SARS COV2 PCR NEGATIVE Negative [facility] Comment:All test results mus t [...] use by authorized laboratories.Testing performed on the [employer] GeneXpert utilizingreal-time RT-PCR.All SARS CoV2 and positive influenza A/B results arereported to [facility]. 04/12/2024 10:0 0 AM EST 04/12/2024 10:04 AM EST Generic External Data Provider LAB MICROBIOLOGY - GENERAL ORDERABLES Final Result Performing Organization Address [facility]/ZIP Co de Phone Number [facility] [address] [place] [phone] * (ABNORMAL) CBC auto differential (04/12/2024 10:00 AM EST) White Blood Count 8.3 4.8 - 10.8 X10*3/uL [facility] Red Blood Count 3.82(L) 4.20 - 5.50 X10*6/uL [facility] Hemoglobin 12.1 12.0 - 16.0 g/dl [facility] Hematocrit 35.4(L) 37.0 - 47.0 % [facility] Mean Corpuscular Volume 92.7 80.0 - 98.0 fL [facility] Mean Corpuscular Hemoglobin 31.7 27.0 - 33.0 pg [facility] Mean Corpuscular HGB Conc 34.2 31.0 - 35.0 g/dl [facility] Red Cell Distribution Width 13.8 11.0 - 16.0 % [facility] Platelet Count 273 160 - 400 X10*3/uL [facility] Mean Platelet Volume 9.2(L) 9.4 - 12.3 fL [facility] Neutrophils Percent Auto 59.7 45 - 73 % [facility] Imm Gran Pct Auto 0.5(H) 0.0 - 0.4 % [facility] Lymphocytes Percent Auto 31.5 20 - 40 % [facility] Monocytes Percent Auto 6.6 2 - 11 % [facility] Eosinophils Percent Auto 1.2 0 - 4 % [facility] Basophils Percent Auto 0.5 0 - 2 % [facility] NRBC Pct Auto 0.0 0.0 - 0.2 /100WBC [facility] Neutrophils Absolute Auto 4.9 2.0 - 8.3 x10*3/uL [facility] Imm Gran Abs Auto 0.04(H) 0.00 - 0.03 X10*3/uL [facility] Lymphocytes Absolute Auto 2.6 1.2 - 4.9 X10*3/uL [facility] Monocytes Absolute Auto 0.6 0.1 - 1.2 X10*3/uL [facility] Eosinophils Absolute Auto 0.1 0.0 - 0.4 X10*3/uL [facility] Basophils Absolute Auto 0.0 0.0 - 0.2 X10*3/uL [facility] NRBC Abs Auto 0.000 0.0 - 0.012 X10*3/uL [facility] 04/12/2024 10:0 0 AM EST 04/12/2024 10:04 AM EST us Generic External Data Provider LAB BLOOD ORDERAB LES Final Result [facility] [address] [place] [phone] * XR Chest 2 Views (04/12/2024 10:00 AM EST) Anatomical Region Laterality Modality Chest Radiographic [place] 04/12/2024 10:0 0 AM EST Narrative 04/12/2024 10:17 AM EST ? [facility] ?[address] ?[place] [address] ?XRay Report ? Signed ? Patient: Kurt,Marlene ?MR#: [id number] ?? 7446 ? : 1975 ?Acct:[id number] ? Age/Sex: 48 / F ?ADM Date: 04/12/24 ? Loc: HO.ED ? Attending Dr: ? Ordering Physician: Thuy Duffy DO ?? Date of Service: 04/12/24 ?? Procedure(s): XR chest 2V ?? Accession Number(s): [id number] ? cc: Dory Ray MD; Thuy Duffy [...] DD/ 1000 ? TD/TT: 04/12/24 1005 ? Chemical Technician: ? Procedure Note Rosemary Kang - 04/12/[address] [place] [address] XRay Report Signed Patient: Crissy Hicks#: [id number] : 1975Acct:[id number] Age/Sex: 48 / FADM Date: 04/12/24 Loc: HO.ED Attending Dr: Ordering Physician: Thuy Duffy DO Date of Service: 04/12/24 Procedure(s): XR chest 2V Accession Number(s): [id number] cc: Dory Ray MD; Thuy Duffy DO [...] 04/12/24 1011 DD/ 1000 TD/TT: 04/12/24 1005 Chemical Technician: [facility] External Provider IMG XR PROCEDURES Final Result * (ABNORMAL) Prothrombin Time-INR (04/12/2024 10:00 AM EST) Prothrombin Time 10.4(L) 10.9 - 12.4 SEC [facility] INTERNATIONAL NORM RATIO 0.9 0.9 - 1.1 [facility] Comment:INTERNATIONAL NORMAL IZED RATIO (INR) REFERENCE [...] ORDERAB LES Final Result Performing Organization Address [facility] Co de Phone Number [facility] [address] [place] [phone] * Magnesium (04/12/2024 10:00 AM EST) Magnesium 2.0 1.6 - 2.6 mg/dL [facility] 04/12/2024 10:0 0 AM EST 04/12/2024 10:04 AM EST us Generic External Data Provider LAB BLOOD ORDERAB LES Final Result Performing Organization Address [facility] Phone Number [facility] [address] [place] [phone] * Hepatic Function Panel (04/12/2024 10:00 AM EST) Bilirubin, Total 0.1 0.0 - 1.0 mg/dL [facility] Bilirubin, Direct <0.2 0.0 - 0.5 mg/dL [facility] Aspartate Amino Transferase 16 5 - 31 U/L [facility] Alanine Aminotransferase 14 0 - 31 U/L [facility] Total Protein 7.3 6.5 - 8.0 g/dL [facility] Albumin Level 4.0 3.5 - 5.0 g/dL [facility] Alkaline Phosphatase 49 39 - 117 U/L [facility] 04/12/2024 10:0 0 AM EST 04/12/2024 10:04 AM EST Generic External Data Provider LAB BLOOD ORDERAB LES Final Result Performing Organization Address [facility] Co de Phone Number [facility] [address] [place] [phone] * (ABNORMAL) Basic Metabolic Panel (04/12/2024 10:00 AM EST) Sodium 140 135 - 145 mmol/L [facility] Potassium 3.9 3.3 - 5.1 mmol/L [facility] Chloride 106 96 - 108 mmol/L [facility] Carbon Dioxide 28 22 - 29 mmol/L [facility] Anion Gap 10(L) 12 - 20 [facility] Urea Nitrogen (BUN) 9 9 - 16 mg/dL [facility] Creatinine, Serum 0.70 0.5 - 1.4 mg/dL [facility] Creatinine Clr Calc Pharmacy 97.0 [facility] Comment:Provided height and weight: 172.72 cm,72.2 kg.eGFR (calculated from the MDRD study equation) and eCrCl(calculated from the Cockcroft-Gault equation) are based ondifferent parameters and may not yield comparable results.If eCrCl result is absurd, please check patient'sheight/weight. Estimated Glomerular Filt Rate >60 [facility] Comment:Chronic Kidney Disea se: Estimated GFR < 60 mL/min/[id number] Kidney Disease: Estimated GFR < 15 mL/min/1.73m2 Glucose 110 60 - 115 mg/dL [facility] Calcium 9.3 8.4 - 10.2 mg/dL [facility] 04/12/2024 10:0 0 AM EST 04/12/2024 10:04 AM EST us Generic External Data Provider LAB BLOOD ORDERAB LES Final Result [facility] [address] [place] [phone] * BI MR Breast w and w/o Contrast Bilateral (04/09/2024 8:56 AM EST) Anatomical Region Laterality Modality Breast Bilateral Magnetic Resonan ce 04/09/2024 8:56 AM EST Narrative 04/09/2024 4:57 PM EST ? [facility] ?[address] ?[place] [address] ? Magnetic Resonance Report ? Signed ? Patient: Kurt,Marlene ?MR#: [id number] ?? 7446 ? : 1975 ?Acct:[id number] ? Age/Sex: 48 / F ?ADM Date: 04/09/24 ? Loc: HO.MRI ? Attending Dr: Macho Sarkar MD ? Ordering Physician: Macho Sakrar MD ?? Date of Service: 04/09/24 ?? Procedure(s): MR breast BI wo/w con ?? Accession Number(s): [id number] ? cc: Dory Ray MD; Macho Sarkar [...] DD/ 0856 ? TD/TT: 04/09/24 0915 ? Chemical Technician: ? Procedure Note Donotuseinterpreter, Image - 04/09/[address] [address] Magnetic Resonance Report Signed Patient: Crissy Hicks#: [id number] : 1975Acct:[id number] Age/Sex: 48 / FADM Date: 04/09/24 Loc: HO.MRI Attending Dr: Macho Sarkar MD Ordering Physician: Macho Sarkar MD Date of Service: 04/09/24 Procedure(s): MR breast BI wo/w con Accession Number(s): [id number] cc: Dory Ray MD; Macho Sarkar MD [...] 04/09/24 1654 DD/ 0856 TD/TT: 04/09/24 0915 Chemical Technician: us [facility] External Provider IMG MRI PROCEDURES Final Result * US Pelvis Transvaginal (03/23/2024 11:02 AM EST) Anatomical Region Laterality Modality Pelvis Ultrasound 03/23/2024 11:0 2 AM EST Narrative 05/09/2024 8:06 AM EST ? [facility] ?[address] ?[place], [place] [address] ? Ultrasound Report ? Signed ? Patient: Kurt,Marlene ?MR#: [id number] ?? [id number] ? : 1975 ?Acct:[id number] ? Age/Sex: 48 / F ?ADM Date: 03/23/24 ? Loc: HO.US ? Attending Dr: Macho Sarkar MD ? Ordering Physician: Macho Sarkar MD ?? Date of Service: 03/23/24 ?? Procedure(s): US pelvic and transvaginal ?? Accession Number(s): [id number] ? cc: Dory Ray MD; Macho Sarkar [...] DD/ 1102 ? TD/TT: 03/23/24 1124 ? Chemical Technician: ? Procedure Note [place], Image - 05/09/2024 [place] [address] Ultrasound Report Signed Patient: Crissy Hicks#: [id number] : 1975Acct:[id number] Age/Sex: 48 / FADM Date: 03/23/24 Loc: HO.US Attending Dr: Macho Sarkar MD Ordering Physician: Macho Sarkar MD Date of Service: 03/23/24 Procedure(s): US pelvic and transvaginal Accession Number(s): [id number] cc: Dory Ray MD; Macho Sarkar MD [...] 05/09/24 0803 DD/ 1102 TD/TT: 03/23/24 1124 Chemical Technician: [facility] External Provider IMG US PROCEDURES Edited Result - Final * POCT MARÍA-14 Urine Drug Screen (03/13/2024 1:12 PM EST) Benzodiazepines Screen, Urine Positive TCA, Urine Positive Urine Urine specimen obtained by clean catch procedure / Unknown 03/13/2024 1:12 PM EST Narrative Rosalinda Fields RN - 03/13/2024 1:12 PM EST UTOX cup Lot#[id number] Exp. 12/27/25 Internal Pass Control Emilia De La Torre MEDICAL SCIENTIST POINT OF CARE TEST ENTER/EDIT ORDERABLES Final [...] DETECTION BY PCR NOT DETECTED Not Detect [facility] BACTERIAL VAGINOSIS DETECTION BY PCR NEGATIVE Negative [facility] Comment:The BV organism targ ets of [...] DETECTION BY PCR NOT DETECTED Not Detect [facility] Maureen glab krusei PCR NOT DETECTED Not Detect [facility] Swab Vaginal structure / Unknown 02/28/2024 02/28/2024 us Dory Wen MD LAB MICROBIOLOGY - GE NERAL ORDERABLES Final Result Performing Organization Address City/[facility]/ZIP Co de Phone Number [facility] [address] [place] [phone] * Culture, Urine, Routine (02/28/2024 12:00 AM EST) Urine Urine specimen obtained by clean catch procedure / Unknown 02/28/2024 02/28/2024 Comment:UACC Narrative [facility] - 03/01/2024 8:13 AM EST Urine Culture No growth. Specimen Source: Urine clean catch us Dory Wen MD LAB MICROBIOLOGY - GE NERAL ORDERABLES Final Result Performing Organization Address City/[facility]/ZIP Co de Phone Number [facility] [address] [place] [phone] * HPV mRNA E6/E7 w/Reflex to HPV Genotypes 16, 18/45 (07/19/2023 9:21 AM EDT) HPV nRNA E6/E7 Not Detected Not Detected [facility] Comment:Methodology: Transcr iption-Mediated AmplificationThis assay detects E6/E7 viral messenger RNA (mRNA) from 14high-risk HPV types (16,18,31,33,35,39,45,51,52,56,58,59,66,68).Cervical sources are required for HPV testing.If a vaginal source from a patient who has had atotal hysterectomy with removal of cervix wassubmitted, please contact the testing laboratoryfor alternative testing options.For additional information, please refer tohttp://education.TheGrid/faq/OQZ028f8(This link if provided for information/educational purposes only.)THIS TEST WAS PERFORMED AT:[address] [place] [id number] WONG MD HPV mRNA E6/E7 [facility] HPV 16 RNA [facility] HPV 18/45 RNA [facility] 07/19/2023 9:21 AM EDT 07/20/2023 9:05 AM EDT us Generic External Data Provider LAB CYTOLOGY NEFTALI ROLLINS Final Result [facility] [address] [place] [address] [phone] * (ABNORMAL) Lipid Panel, Standard (06/16/2023 10:01 AM EDT) Triglycerides 107 <150 mg/dL [facility] Comment:Desirable Triglyceri de: less than 150 mg/dLBorderline High Triglyceride 150-199 mg/dLHigh Triglyceride: 200-499 mg/dLVery High Triglyceride: greater than or equal to 5OO mg/dL Cholesterol 191 <200 mg/dL [facility] Comment:Desirable Cholestero l: less than 200 mg/dLBorderline High Cholesterol: 200-239 mg/dLHigh Cholesterol: greater than 239 mg/dL LDL Cholesterol Calculated 137(H) <100 mg/dL [facility] Comment:Desirable LDL: less than 100 mg/dLNear Optimal/Above Optimal LDL: 110- 129 mg/dLBorderline High LDL: 130-159 mg/dLHigh LDL: 160-189 mg/dLVery High LDL: greater than or equal to 190 mg/dL HDL Cholesterol 33(L) >40 mg/dL [facility] Comment:Desirable HDL: great er than 40 mg/dL Note: This HDL assay may give artificially low results in patients with liver disease. Blood Venous blood specimen / Unknown 06/16/2023 10:01 AM EDT 06/16/2023 11:27 AM EDT us Dory Wen MD LAB BLOOD ORDERABLES Final Result [facility] [address] [place] [phone] * Pap Smear (02/21/2023 2:25 PM EST) 02/21/2023 2:25 PM EST 02/22/2023 10:30 AM EST Narrative [facility] - 03/07/2023 8:53 PM EST ----- ------- Name: Marlene Hicks ? Age/Sex: 47/F ? : 1975 Unit#: [id number] ?? Attend Dr: Macho Sarkar MD ?Re02/21/23 ?Status: DEP REF ? Location: HO.LNP ?Disch: ? ----- ------- SPEC : [id number] ?RECD: 02/22/233 ? STATUS: ??SOUT ? REQ NUM: [id number] ? TREVON: 02/21/23-0003 ? SUBM DR: Macho Sarkar MD ? ENTERED: ??02/22/23 ?SP TYPE: Pap Smr ?OTHR DR: Dory [...] 66, 68) ?? HPV testing performed by [facility], [place], [place]. ??See reference laboratory ?? portion of the EMR for entire report. ?Clinical Information LMP: Postmenopausal Previous PAP test: Unknown date/findings Other history: Abnormal uterine and vaginal bleeding. ? Material Received ?? ThinPrep-Cervical Copies To: ?? Dory Ray MD ?? [address] [facility] ?? [place] [address] ?? [phone] ?? Macho Sarkar MD ?? [address] [facility] ?? [place] [address] ?? [phone] ----- ------- Signed (signature on file) Abbie Saunders MD 03/07/232052 ? ----- ------- ? END OF REPORT ? us Generic External Data Provider LAB CYTOLOGY NEFTALI ROLLINS Final Result [facility] [address] [place] [phone] * Cologuard?? colon cancer screening (12/27/2022 9:47 AM EDT) [facility] Cologuard Result Negative Negative 01/07/20 5:43 PM EDT [facility] (CLIA #:[id number]) Comment: NEGATIVE TEST RESULT. A negative Cologuard [...] cancer. ??Following a negative Cologuard result, the [place] [employer] Cancer Society and U.S. Multi-Society Task Force screening guidelines recommend a Cologuard re-screening interval of 3 years. References: [place] [employer] Guideline for Colorectal Cancer Screening: https://www.cancer.org/cancer/ncqin-tjvzmd-pushox/wtidzgsjp-nqsrkbccz-udnurej/ac s-rec ommendations.html.; Yossi DK, Katja CR, Mona LugoK, Colorectal Cancer Screening: Recommendations for Physicians and Patients from the U.S. Multi-Society Task Force on Colorectal Cancer Screening , Am J Gastroenterology 2017; 112:2332-7269. TEST DESCRIPTION: Composite algorithmic analysis of stool [...] (Anum Adan al, N Engl J Med 2014;370(14):1013-8051.) Cologuard may produce a false negative or false positive result (no colorectal cancer or precancerous polyp present at colonoscopy follow up). A negative Cologuard test result does not guarantee the absence of CRC or advanced adenoma (pre-cancer). The current Cologuard screening interval is every 3 years. ([place] [employer] Society and U.S. Multi-Society Task Force). Cologuard performance data in a 10,000 patient pivotal study using colonoscopy as the reference method can be accessed at the following location: www.[employer]/results. Additional description of the Cologuard test process, warnings and precautions can be found at www.[employer].rd.com. Stool specimen (specimen) 12/27/2022 9:47 AM EDT 12/29/2022 7:44 PM EDT us Dory Wen MD LAB MOLECULAR DIAGNOS TICS ORDERABLES Final Result [facility] (CLIA #:[id number]) Freddie Uma[address] [place] [address], [place] [phone] from Last 3 Months or Most Recently Relevant to Health Maintenance Insurance * Guarantor: Marlene Hicks Account Type Relation to Patient Date of Phone Billing Address Personal/Family Self 1975 [address] [place] [address] [place] C3 Care Teams Wash House Supervisor Relationship Specialty Start Date End Date Dory Ray MD [address] [place] [phone] PCP - General Family Medicine 01/03/19 Jeane Lemons Certified Dental AssistantReligion Professor 11/09/23
--- OUTSIDE RECORDS SUMMARY | 2024-05-14 10:48 | XMS_ITS | Encounter Summary ---
Author Organization [employer] Address [address] 7t [place] [address] Care Team Providers Care Supervisor Rod Placing Name Role Phone oDry Ray MD Primary Care Provide r Reason for Visit * Reason Comments Med Refill Encounter Details Date Type Department Care Team (Late st Contact Info) Description 07/20/2022 Refill [facility] [address] [place] [address] Eden Cobb MD 230 [place] [address] Migraine without status migrainosus, not intractable, unspecified [...] Description 05/15/2024 9:30 AM EST Office Visit [facility] [address] [place] [address] Dory Ray MD [address] [place], [place] [phone] 05/15/2024 11:00 AM EST Office Visit [facility] [address] [place] [address] 05/30/2024 10:15 AM EST Office Visit [facility] [address] [place] [address] Dory Ray MD [address] [place] [address] documented as of this encounter Visit Diagnoses Diagnosis Migraine without status migrainosus, not intractable, unspecified migraine type documented in this encounter Care Teams Supervisor Rod Placing Relationship Specialty Start Date End Date Dory Ray MD [address] [place] [address] [phone] PCP - General Family Medicine 01/03/19 Jeane Lemons Rn Employee HealthDoor Patcher 11/09/23 documented as of this encounter
--- OUTSIDE RECORDS SUMMARY | 2024-05-14 10:48 | XMS_ITS | Encounter Summary ---
Author Organization [employer] Address [address] 7t [place] [address] Care Team Providers Care Statistical Secretary Name Role Phone Dory Ray MD Primary Care Provide r Encounter Details Date Type Department Care Team (Late st Contact Info) Description 01/12/2023 Abstract [facility] [address] [place] [address] Dory Ray MD 230 [place] [address] Social History Tobacco Use Types Packs/Day Years [...] Description 05/15/2024 9:30 AM EST Office Visit [facility] [address] [place] [address] Dory Ray MD [address] [place] [address] 05/15/2024 11:00 AM EST Office Visit [address] [address] 05/30/2024 10:15 AM EST Office Visit [address] [address] Dory Ray MD [address] [place] [address] documented as of this encounter Visit Diagnoses Not on filedocumented in this encounter Additional Health Concerns Assessment Noted Time PHQ-9 Depression Total Score: 24 023 9:07 AM EDT documented as of this encounter Care Teams Statistical Secretary Relationship Specialty Start Date End Date Dory Ray MD [address] [place] [address] PCP - General Family Medicine 01/03/19 Jeane Lemons Teacher Visually ImpairedAmbulance Assistant 11/09/23 documented as of this encounter
--- OUTSIDE RECORDS SUMMARY | 2024-05-14 10:48 | XMS_ITS | Encounter Summary ---
Author Organization [employer] Address [address] 7t [place] [address] Care Team Providers Care Porcelain Enamel Sprayer Name Role Phone Dory Ray MD Primary Care Provide r Reason for Visit * Reason Onset Date Comments PA 07/29/2022 Encounter Details Date Type Department Care Team ([facility] st Contact Info) Description 07/29/2022 Telephone [facility] [address] [place] [address] Dory Ray MD [address] [place] [address] PA Social History Tobacco Use Types Packs/Day [...] 05/15/2024 9:30 AM EST Office Visit [address] [address] Dory Ray MD [address] [place] [address] 05/15/2024 11:00 AM EST Office Visit [address] [phone] 05/30/2024 10:15 AM EST Office Visit [address] [address] Dory Ray MD [address] [place] [place] [address] [phone] documented as of this encounter Visit Diagnoses Not on filedocumented in this encounter Care Teams Porcelain Enamel Sprayer Relationship Specialty Start Date End Date Dory Ray MD [address] [place] [place] [address] [phone] PCP - General Family Medicine 01/03/19 Jeane Lemons Nuisance Wildlife SpecialistData Management Analyst 11/09/23 documented as of this encounter
--- OUTSIDE RECORDS SUMMARY | 2024-05-14 10:48 | XMS_ITS | Encounter Summary ---
Author Organization [employer] Address [address] 7t [place] [address] Care Team Providers Care Shipwright Name Role Phone Dory Ray MD Primary Care Provide r Reason for Visit * Reason Onset Date Comments Durable Medical Equipment 04/17/2024 Encounter Details Date Type Department Care Team ([facility] st Contact Info) Description 04/17/2024 Telephone [facility] [address] [place], [place] [phone] Dustin Hickey [place] Durable Medical Equipment Social [...] of the following? None of the above;Lead [place] or Pipes;Pests such as bugs, ants, or [...] t he electric, gas, oil or water Toptal threatened to shut off services in your [...] 9:30 AM EST Office Visit [facility] [address] [place] [address] Dory Ray MD 230 [place] [address] 05/15/2024 11:00 AM EST Office Visit [facility] [address] [place] [address] 05/30/2024 10:15 AM EST Office Visit [facility] [address] [place] [address] Dory Ray MD [address] [place] [address] documented as of this encounter Goals Goal [...] documented as of this encounter Care Teams Shipwright Relationship Specialty Start Date End Date Dory Ray MD [address] [place] [address] PCP - General Family Medicine 01/03/19 Jeane Lemons Account ProcessorCellar Worker 11/09/23 documented as of this encounter
--- OUTSIDE RECORDS SUMMARY | 2024-05-14 10:48 | XMS_ITS | Encounter Summary ---
Author Organization [employer] Address [address] 7t [place] [address] Care Team Providers Care Construction Person Name Role Phone Dory Ray MD Primary Care Provide r Reason for Visit * Reason Onset Date Comments ER Follow-up 04/17/2024 Encounter Details Date Type Department Care Team ([facility] Contact Info) Description 04/17/2024 Telephone [facility] 230 [place] [address] Dory Ray MD 230 [place] [address] ER Follow-up Social History Tobacco Use Types [...] of the following? None of the above;Lead [place] or Pipes;Pests such as bugs, ants, or [...] do status check for post discharge from [facility] for slurred speech, anxiety, sob from 04/12/24-04/13/24. [...] ED visit on : Date: 04/13/24-04/14/24 Hospital: [facility] Seen for: Low blood pressure Symptomatic Yes Pt stated she was advise by [facility] not to take blood pressure medication. Pt denied triage. Would liketo follow up with PCP Radha. Patient advised will forward to team nurse for follow up Contact pt at [phone] (albanian) documented in this encounter Plan of Treatment Upcoming Encounters Date Type Department Care Team ([facility] st Contact Info) Description 05/15/2024 9:30 AM EST Office Visit [address] [address] Dory Ray MD [address] [place] [phone] 05/15/2024 11:00 AM EST Office Visit [address] [address] 05/30/2024 10:15 AM EST Office Visit [address] [address] Dory Ray MD [address] [place] [phone] documented as of this encounter Goals Goal [...] documented as of this encounter Care Teams Construction Person Relationship Specialty Start Date End Date Dory Ray MD [address] [place] [phone] PCP - General Family Medicine 01/03/19 Jeane Lemons Jordan ManChina Painter 11/09/23 documented as of this encounter
--- OUTSIDE RECORDS SUMMARY | 2024-05-14 10:48 | XMS_ITS | Encounter Summary ---
Author Organization [employer] Address [address] 7t [place] [address] Care Team Providers Care Flyer Builder Name Role Phone Dory Ray MD Primary Care Provide r Reason for Visit * Reason Onset Date Comments antibiotic 12/09/2022 Encounter Details Date Type Department Care Team ([facility] st Contact Info) Description 12/09/2022 Telephone [facility] 230 [place], [place] [phone] Dashawn Garcia, DDS 230 [place], [place] [phone] antibiotic Social History Tobacco Use Types Packs/Day [...] after 6 on 12/09 to speak to conference translator and nothing was sent to pharmacy conference translator side either. Can something be sent to [...] she can call back and speak to conference translator Or go to the emergency room. Patient understood DR documented in this encounter Plan of Treatment Upcoming Encounters Date Type Department Care Team (Late st Contact Info) Description 05/15/2024 9:30 AM EST Office Visit [facility] [address] [place] [address] Dory Ray MD [address] [place] [address] 05/15/2024 11:00 AM EST Office Visit [facility] [address] [place] [address] 05/30/2024 10:15 AM EST Office Visit [address] [address] Dory Ray MD [address] [place] [address] documented as of this encounter Visit Diagnoses Not on filedocumented in this encounter Additional Health Concerns Assessment Noted Time PHQ-9 Depression Total Score: 21 023 9:24 AM EDT documented as of this encounter Care Teams Flyer Builder Relationship Specialty Start Date End Date Dory Ray MD [address] [place] [phone] PCP - General Family Medicine 01/03/19 Jeane Lemons Contractor BuyerRamp Jockey 11/09/23 documented as of this encounter
--- OUTSIDE RECORDS SUMMARY | 2024-05-14 10:48 | XMS_ITS | Encounter Summary ---
Author Organization [email or web address] Address [address] [facility] 7t [place] [address] Care Team Providers Care Shuttle Inspector Name Role Phone Dory Ray MD Primary Care Provide r Reason for Visit * Reason Comments Med Refill Encounter Details Date Type Department Care Team (Late Contact Info) Description 11/26/2022 Refill [facility] [address] [place] [phone] Name, MD Soy [address] [place] [address] Migraine without status migrainosus, not intractable, unspecified [...] Description 05/15/2024 9:30 AM EST Office Visit [facility] [address] [place] [address] Dory Ray MD [address] [place] [address] 05/15/2024 11:00 AM EST Office Visit [facility] [address] [place] [address] 05/30/2024 10:15 AM EST Office Visit [address] [address] Dory Ray MD [address] [place] [address] documented as of this encounter Visit Diagnoses Diagnosis Migraine without status migrainosus, not intractable, unspecified migraine type documented in this encounter Additional Health Concerns Assessment Noted Time PHQ-9 Depression Total Score: 21 023 9:24 AM EDT documented as of this encounter Care Teams Shuttle Inspector Relationship Specialty Start Date End Date Dory Ray MD [address] [place] [phone] PCP - General Family Medicine 01/03/19 Jeane Lemons Manager Student ServicesSenior Staff Specialized Employment 11/09/23 documented as of this encounter
--- OUTSIDE RECORDS SUMMARY | 2024-05-14 10:48 | XMS_ITS | Encounter Summary ---
Author Organization [employer] Address [address] 7t [place] [address] Care Team Providers Care Sales Order Coordinator Name Role Phone Dory Ray MD Primary Care Provide r Reason for Visit * Reason Comments Med Refill Encounter Details Date Type Department Care Team ([facility] st Contact Info) Description 04/10/2024 Refill [facility] [address] [place], [place] [phone] Dory Ray MD 230 [place] [address] Chronic right-sided low back pain with right-sided [...] with others, in a hotel, in a mcfp, living outside on the street, on a beach, in a car, or in a park 08/19/[address] you li ve. Do you have problems with any of the following? None of the above;Lead [place] or Pipes;Pests such as bugs, ants, or [...] 05/15/2024 9:30 AM EST Office Visit [address] [address] Dory Ray MD [address] [place] [address] 05/15/2024 11:00 AM EST Office Visit [address] [address] 05/30/2024 10:15 AM EST Office Visit [address] [address] Dory Ray MD [address] [place] [address] documented as of this encounter Goals Goal [...] documented as of this encounter Care Teams Sales Order Coordinator Relationship Specialty Start Date End Date Dory Ray MD [address] [place] [address] PCP - General Family Medicine 01/03/19 Jeane Lemons Deli Department ManagerHealthcare Management Consultant 11/09/23 documented as of this encounter
--- OUTSIDE RECORDS SUMMARY | 2024-05-14 10:48 | XMS_ITS | Encounter Summary ---
Author Organization [employer] Address [address] [facility] 7t [place] [address] Care Team Providers Care Manager Creative Services Name Role Phone Dory Ray MD Primary Care Provide r Reason for Visit * Reason Comments Med Refill Encounter Details Date Type Department Care Team (Late Contact Info) Description 11/16/2022 Refill [facility] [address] [place] [address] [phone] Eden Cobb MD [address] [place] [address] [phone] Anxiety Social History Tobacco Use Types Packs/Day [...] 9:30 AM EST Office Visit [facility] 230 [place], [place] [phone] Dory Ray MD 230 [place], [place] [phone] 05/15/2024 11:00 AM EST Office Visit [facility] [address] [place] [address] 05/30/2024 10:15 AM EST Office Visit [facility] [address] [place] [address] Dory Ray MD [address] [place] [address] documented as of this encounter Visit Diagnoses Diagnosis Anxiety Anxiety state, unspecified documented in this encounter Additional Health Concerns Assessment Noted Time PHQ-9 Depression Total Score: 21 023 9:24 AM EDT documented as of this encounter Care Teams Manager Creative Services Relationship Specialty Start Date End Date Dory Ray MD [address] [place] [phone] PCP - General Family Medicine 01/03/19 Jeane Lemons Mold Shop SupervisorKitchen And Bath Designer 11/09/23 documented as of this encounter
--- OUTSIDE RECORDS SUMMARY | 2024-05-14 10:48 | XMS_ITS | Clinical Summary ---
Author Organization [address] [facility] Address [address] [place] [address] Phone Care Team Providers Care Rock Wool Applicator Name Role Phone Dory Ray MD Primary [...] Name Administration Dates Next Due Hepatitis B (Wwkbejp-B-Bcfmd , Recombivax HB-Adult) 19yo and older 01/18/2007,08/24/2006 [...] Luo OTHER SURGICAL HISTORY 09/25/2020 Left PROCEDURE: MO NEUROPLASTY &/TRANSPOSITION ULNAR NERVE ELBOW; COMMENT: Submuscular Transposition, Dr. Luo OTHER SURGICAL HISTORY 04/14/2012 Left PROCEDURE: MO DCMPRN FASCT F/ARM&WRST FLXR/XTNSR W/O DBRDMT; COMMENT: 1st [place] Compartment/De Quervain's Release, Dr. Luo Medical History [...] Recently Relevant to Health Maintenance Care Teams Rock Wool Applicator Relationship Specialty Start Date End Date Dory Ray MD [address] [place] [phone] PCP - General Internal Medicine 12/30/20
--- OUTSIDE RECORDS SUMMARY | 2024-05-14 10:48 | XMS_ITS | Encounter Summary ---
Author Organization [employer] Address [address] [facility] 7t [place] [address] Care Team Providers Care Exchange Engineer Name Role Phone Dory Ray MD Primary Care Provide r Reason for Visit * Reason Comments Med Refill Encounter Details Date Type Department Care Team (Late Contact Info) Description 08/05/2022 Refill [facility] [address] [place] [address] [phone] Dory Ray MD [address] [place] [address] Anxiety Social History Tobacco Use Types Packs/Day [...] Description 05/15/2024 9:30 AM EST Office Visit [facility] [address] [place] [address] [phone] Dory Ray MD [address] [place] [address] 05/15/2024 11:00 AM EST Office Visit [facility] [address] [place] [address] 05/30/2024 10:15 AM EST Office Visit [facility] [address] [place] [address] Dory Ray MD [address] [place] [address] documented as of this encounter Visit Diagnoses Diagnosis Anxiety Anxiety state, unspecified documented in this encounter Care Teams Exchange Engineer Relationship Specialty Start Date End Date Dory Ray MD [address] [place] [address] PCP - General Family Medicine 01/03/19 Jeane Lemons Packer Sausage And WienerVp Clinical 11/09/23 documented as of this encounter
--- OUTSIDE RECORDS SUMMARY | 2024-05-14 10:48 | XMS_ITS | Encounter Summary ---
Author Organization [employer] Address [address] 7t [place] [address] Care Team Providers Care Windshield Wiper Repairer Name Role Phone Dory Ray MD Primary Care Provide r Reason for Visit * Reason Comments Med Refill Encounter Details Date Type Department Care Team ([facility] st Contact Info) Description 03/19/2024 Refill [facility] MEDICINE [address] [place] [address] Dory Ray MD [address] [place] [address] Essential hypertension Social History Tobacco Use Types [...] of the following? None of the above;Lead [place] or Pipes;Pests such as bugs, ants, or [...] Description 05/15/2024 9:30 AM EST Office Visit [address] [address] Dory Ray MD [address] [place] [address] 05/15/2024 11:00 AM EST Office Visit [address] [address] 05/30/2024 10:15 AM EST Office Visit [address] [address] Dory Ray MD [address] [place] [address] documented as of this encounter Goals Goal [...] documented as of this encounter Care Teams Windshield Wiper Repairer Relationship Specialty Start Date End Date Dory Ray MD [address] [place] [address] PCP - General Family Medicine 01/03/19 Jaene Lemons Mirror Department SupervisorCoating Machine Operator Helper 11/09/23 documented as of this encounter
[2024-05-15 05:56] LABS: CT PCR NOT DETECTED (Not Detect.); NG PCR NOT DETECTED (Not Detect.)
== END 2024-05-14 09:35 | disposition home or self-care (01) ==
LOC: HO.LNP 09:34
PROVIDERS: PCP Internal Medicine; Visit Provider Obstetrics & Gynecology
DX: N93.9 Abnormal uterine and vaginal bleeding, unspecified (principal); R31.29 Other microscopic hematuria; R10.2 Pelvic and perineal pain
CPT/HCPCS: 58100; 81025; 87086; 87491; 87591; 88305; 99212

== ENCOUNTER 2024-06-26 08:16 | Outpatient (REF) | payer MEDICAID, SELFPAY ==
[2024-06-26 10:41] LABS: Hematocrit 39.2 % (37.0-47.0); Hemoglobin 13.4 g/dl (12.0-16.0); Mean Corpuscular HGB Conc 34.2 g/dl (31.0-35.0); Mean Corpuscular Hemoglobin 31.2 pg (27.0-33.0); Mean Corpuscular Volume 91.2 fL (80.0-98.0); Mean Platelet Volume 9.8 fL (9.4-12.3); Platelet Count 306 X10*3/uL (160-400); Red Cell Distribution Width 13.2 % (11.0-16.0); White Blood Count 6.5 X10*3/uL (4.8-10.8)
[2024-06-26 11:55] LABS: HCG Quantitative 6 mIU/mL; TSH reflex Free T4 2.29 uIU/mL (0.32-4.0)
[2024-06-26 12:20] LABS: Syphilis Screen Nonreactive (Nonreactive)
[2024-06-26 12:22] LABS: HBsAGNum1 0.26 S/CO (0.00-0.99); HIV AB/AG Nonreactive (Nonreactive); HIV Num 1 0.05 S/CO (0.00-0.99); Hepatitis B Surface Antigen Negative (Negative); ~HepC Num1 0.36 S/CO (0.00-0.79); ~Hepatitis C Antibody Nonreactive (Nonreactive)
[2024-06-27 09:04] LABS: Follicle Stimulating Hormone 58.1 mIU/mL; Lutenizing Hormone 27.5 mIU/mL
== END 2024-06-26 08:17 | disposition home or self-care (01) ==
LOC: HO.LAB 08:16
PROVIDERS: PCP Internal Medicine; Visit Provider Obstetrics & Gynecology
DX: N76.0 Acute vaginitis (principal); B96.89 Other specified bacterial agents as the cause of diseases classified elsewhere; N93.9 Abnormal uterine and vaginal bleeding, unspecified; R10.2 Pelvic and perineal pain; N83.299 Other ovarian cyst, unspecified side; R31.29 Other microscopic hematuria
CPT/HCPCS: 36415; 81002; 83001; 83002; 84443; 84702; 85027; 86780; 86803; 87340; 87389; 99212

== ENCOUNTER 2024-06-26 08:16 | Outpatient (AMB) | payer MEDICAID, SELFPAY ==
--- NOTE | 2024-06-26 08:19 | A.OFFVIS_ITS ---
Intake Visit Reasons: emb results, U/S/urine dip/do not mayelin Sole Conforming Machine Operator Required: Yes Sole Conforming Machine Operator Language: Cleaning Porter Services: Sole Conforming Machine Operator Present (In person) Sole Conforming Machine Operator Name: EMILIANO Marin Information Interpreted: non-clinical & clinical Cook Helper Dessert: Cook Helper Dessert Present (EMILIANO Marin) Accompanied by: Self / Same As Patient Allergies No Known Allergies Allergy (Verified 06/26/24 08:27) HPI Comments Details: The patient is presenting for follow-up to discuss the results of her abnormal uterine bleeding workup and options of treatment. The following workup was done.: H&H= 12.1/35.3 GC and chlamydia were negative. Endometrial biopsy pathology showed the following: Disordered proliferative endometrium; no atypia or hyperplasia identified Co testing was done in 07/26 was negative. Mammogram was negative. Pelvic ultrasound showed the following: IMPRESSION: Thickened, 20 mm endometrial stripe. This is abnormal in a postmenopausal woman. 2 cm septated cystic lesion, left ovary. Follow-up ultrasound was scheduled on 05/25/2022, the patient missed it because she was in [place] The patient has a B persistent microscopic hematuria in the past , CT scan in 2022 was negative, the patient was refer to urology and was diagnosed with IUD and it has been on medications for it PFSH Medical History HTN (hypertension) Asthma Seasonal allergies Nicotine dependence, cigarettes, uncomplicated Fibromyalgia Chronic pain syndrome Anxiety and depression Migraines Constipation Complex ovarian cyst Abnormal uterine bleeding (AUB) Microscopic hematuria Interstitial cystitis Urinary frequency Stress incontinence Female pelvic pain Abdominal mass, left lower quadrant Well woman exam Breast lump Disc degeneration, lumbar Spondylosis of lumbar spine Arthritis Surgical History History of carpal tunnel surgery of left wrist History of cystoscopy History of salpingo-oophorectomy History of loop electrosurgical excision procedure (LEEP) History of bilateral tubal ligation Family History Sister History of breast cancer, Onset Age: 52 Brother History of bone cancer History of blood disorder History of brain cancer Paternal Aunt History of cancer of uterus Mother Hx of cancer of lung Sister Hx of hysterectomy Family/Other Hx of hysterectomy Family/Other Hx of hysterectomy Daughter Hx of thyroid cancer Social History Household Members: Significant Other Housing: Apartment Do you presently have visiting nurse or other home services: Yes (FILAMENT WOUND PARTS FABRICATOR daily) Alcohol intake: never Patient Tobacco Use Status: Current everyday Tobacco user Tobacco use type: Cigarette Cigarettes Per Day: 10 Second Hand Smoke Exposure: No Substance Use Type: Marijuana service: No Sexual orientation: Straight/Heterosexual Gender identity: Female Female Reproductive History Menstrual Age of Menarche: 9 Review of Systems Const All systems reviewed & are unremarkable except as noted in HPI and below Reports as per HPI and Reports no additional complaints GI Reports no additional complaints Reports no additional complaints Assessment & Plan Assessment & Plan (1) Abnormal uterine bleeding (AUB): Comment: Thick endometrium by ultrasound Code(s): N93.9 - Abnormal uterine and vaginal bleeding, unspecified Category: Medical Plan: TSH, hCG, CBC, FSH/LH ordered. Discussed with the patient the results of the pathology of the endometrial biopsy. Instructions given to the patient to schedule a 2 week follow-up appointment to discuss different options of treatment (2) Complex ovarian cyst: Code(s): N83.299 - Other ovarian cyst, unspecified side Category: Medical Plan: Pelvic Ultrasound rescheduled. Instructions given to patient to schedule a 2 week follow-up appointment. (3) Microscopic hematuria: Code(s): R31.29 - Other microscopic hematuria Category: Medical Plan: Repeat urine dip showed microscopic hematuria, the patient was diagnose interstitial cystitis. Instructions given the patient to follow-up with urology Orders: Orders TSH reflex Free T4 Today N93.9 - Abnormal uterine and vaginal bleeding, unspecified Follicle Stimulating Hormone Today N93.9 - Abnormal uterine and vaginal bleeding, unspecified Lutenizing Hormone Today N93.9 - Abnormal uterine and vaginal bleeding, unspecified HCG Quantitative Today N93.9 - Abnormal uterine and vaginal bleeding, unspecified Complete Blood Count no Diff Today N93.9 - Abnormal uterine and vaginal bleeding, unspecified Coding Level of Care Code Est Pt Level 3 (74015) Diagnoses Abnormal uterine bleeding (AUB) N93.9 Complex ovarian cyst N83.299 Microscopic hematuria R31.29
--- OUTSIDE RECORDS SUMMARY | 2024-06-26 08:40 | XMS_ITS | Encounter Summary ---
Author Organization [employer] Address [address] [facility] [address] 7[address] [place] [address] Care Team Providers Care Interactive Video Technician Name Role Phone Dory Ray MD Primary Care Provide r Reason for Visit * Reason Comments Med Refill Encounter Details Date Type Department Care Team ([facility] st Contact Info) Description 03/19/2024 Refill [facility] 230 [place] [address] Dory Ray MD 230 [place] [address] Essential hypertension Social History Tobacco Use Types [...] of the following? None of the above;Lead [place] or Pipes;Pests such as bugs, ants, or [...] Care Team (Late st Contact Info) Description 07/10/2024 11:00 AM EDT Office Visit [facility] [address] [place] [address] 08/15/2024 9:00 AM EDT Office Visit [facility] [address] [place] [address] Dory Ray MD [address] [place] [address] documented as of this encounter Goals Goal [...] documented as of this encounter Care Teams Interactive Video Technician Relationship Specialty Start Date End Date Dory Rya MD [address] [place] [address] PCP - General Family Medicine 01/03/19 Jeane Lemons Preschool Lead TeacherGang Boss 11/09/23 documented as of this encounter
--- OUTSIDE RECORDS SUMMARY | 2024-06-26 08:40 | XMS_ITS | Encounter Summary ---
Author Organization [employer] Address [address] [facility] [facility] [address] 7t [place] [address] Care Team Providers Care Manager Leasing Name Role Phone Dory Ray MD Primary Care Provide r Reason for Visit * Reason Onset Date Comments Chart prep 05/28/2024 Encounter Details Date Type Department Care Team ([facility] st Contact Info) Description 05/28/2024 Telephone [facility] MEDICINE 230 [place] [address] Dory Ray MD 230 [place] [address] Chart prep Social History Tobacco Use Types Packs/Day Years [...] housing situation today? I have danielito jernigan 05/16/[address] you li ve. Do you have problems with any of the following? None of the above 05/16/2024 Food Insecurity Answer Date Recorded Within the past 12 months, y ou worried that your food would run out before you got money to buy more: Never True 05/16/2024 Within the past 12 months,th e food you bought just didn't last and you didn't have enough money to get more: Never True 03/2025 Transportation Answer Date Recorded In the past [...] Recorded Patient Health Questionnaire-2 Score 6 01/10/2024 Internet Access Answer Date Recorded Internet Access Q1 Yes 05/16/2024 Internet Access Q2 Not on file 05/16/2024 Comments Unknown Sex and Gender Information Value Date Recorded Sex Assigned at Female 02/01/2022 10:14 AM EDT Legal Sex Female 10:14 AM EDT Gender Identity Female 02/01/2022 10:14 AM EDT Sexual Orientation Choose not to disclose 2021 10:14 AM EDT documented as of this encounter Miscellaneous Notes * Telephone Encounter - Carola Davis MA - 05/28/2024 10:58 AM EST Chart Prep Labs: done Images: done Vaccines due: yes Referrals: complete Screenings: Up to date Overdue care gaps: Up to date documented in this encounter Plan of Treatment Upcoming Encounters Date Type Department Care Team (Late st Contact Info) Description 07/10/2024 11:00 AM EDT Office Visit [facility] MEDICINE [address] [place] [address] 08/15/2024 9:00 AM EDT Office Visit [facility] MEDICINE [address] [place] [address] Dory Ray MD [address] [place] [address] documented as of this encounter Goals Goal [...] as of this encounter Care Teams Manager Leasing Relationship Specialty Start Date End Date Dory Ray MD 230 [place] [address] PCP - General Family Medicine 01/03/19 Jeane Lemons Message And Delivery Service PricerManager Adult 11/09/23 documented as of this encounter
--- OUTSIDE RECORDS SUMMARY | 2024-06-26 08:40 | XMS_ITS | Encounter Summary ---
Author Organization [employer] Address [address] 7t [place] [address] Care Team Providers Care Oil Burner Technician Name Role Phone Dory Ray MD Primary Care Provide r Reason for Visit * Reason Comments Med Refill Encounter Details Date Type Department Care Team ([facility] st Contact Info) Description 04/10/2024 Refill [facility] MEDICINE 230 [place], [place] [phone] Dory Ray MD 230 [place] [address] Chronic right-sided low back pain with right-sided [...] of the following? None of the above;Lead [place] or Pipes;Pests such as bugs, ants, or [...] Description 07/10/2024 11:00 AM EDT Office Visit [address] [address] 08/15/2024 9:00 AM EDT Office Visit [facility] MEDICINE [address] [place] [address] Dory Ray MD [address] [place] [address] documented as of this encounter Goals Goal [...] documented as of this encounter Care Teams Oil Burner Technician Relationship Specialty Start Date End Date Dory Ray MD 230 [place] [address] PCP - General Family Medicine 01/03/19 Jeane Lemons Marketing Communications ManagerClinical Technician 11/09/23 documented as of this encounter
--- OUTSIDE RECORDS SUMMARY | 2024-06-26 08:40 | XMS_ITS | Encounter Summary ---
Author Organization [employer] Address [address] 7t [place] [address] Care Team Providers Care Software Security Architect Name Role Phone Dory Ray MD Primary Care Provide r Reason for Visit * Reason Onset Date Comments Nurse Triage 10/11/2022 Encounter Details Date Type Department Care Team ([facility] st Contact Info) Description 10/11/2022 Telephone [facility] MEDICINE 230 [place] [address] Dory Ray MD [address] [place] [address] Nurse Triage Social History Tobacco Use Types [...] 10/11/2022 11:39 AM EDT Triage call with [employer] chargeback analyst ID [id number] Pt calls with numerous concerns but, abdominal [...] abdominal discomfort. Advised Pt to come to [facility] to be seen and Pt [...] accepted this outcome Please contact pt at [phone] (Citizen Of [place] speaker) documented in this encounter Plan of Treatment Upcoming Encounters Date Type Department Care Team (Late st Contact Info) Description 07/10/2024 11:00 AM EDT Office Visit [facility] MEDICINE [address] [place] [address] [phone] 08/15/2024 9:00 AM EDT Office Visit [facility] MEDICINE [address] [place] [address] Dory Ray MD [address] [place] [address] documented as of this encounter Visit Diagnoses Not on filedocumented in this encounter Additional Health Concerns Assessment Noted Time PHQ-9 Depression Total Score: 21 023 9:24 AM EDT documented as of this encounter Care Teams Software Security Architect Relationship Specialty Start Date End Date Dory Ray MD [address] [place] [address] PCP - General Family Medicine 01/03/19 Jeane Lemons Shoe Lining FitterProductivity Engineer 11/09/23 documented as of this encounter
--- OUTSIDE RECORDS SUMMARY | 2024-06-26 08:40 | XMS_ITS | Encounter Summary ---
Author Organization [employer] Address [address] [facility] [address]t h Floor [place] [id number] Care Team Providers Care Oracle Distribution Consultant Name Role Phone Dory Ray MD Primary Care Provide r Reason for Visit * Reason Comments Med Refill Encounter Details Date Type Department Care Team ([facility] st Contact Info) Description 08/23/2023 Refill [facility] ADULT DENTAL 230 [place] [address] Dashawn Garcia DDS 230 [place] [address] Social History Tobacco Use Types Packs/Day Years [...] of the following? None of the above;Lead [place] or Pipes;Pests such as bugs, ants, or [...] Description 07/10/2024 11:00 AM EDT Office Visit [facility] MEDICINE [address] [place] [address] 08/15/2024 9:00 AM EDT Office Visit [facility] MEDICINE [address] [place] [address] Dory Ray MD [address] [place] [address] documented as of this encounter Goals Goal [...] as of this encounter Care Teams Oracle Distribution Consultant Relationship Specialty Start Date End Date Dory Ray MD [address] [place] [address] PCP - General Family Medicine 01/03/19 Jeane Lemons Filling HandSample Paster 11/09/23 documented as of this encounter
--- OUTSIDE RECORDS SUMMARY | 2024-06-26 08:40 | XMS_ITS | Encounter Summary ---
Author Organization [employer] Address [address] 7[address] [place] [address] Care Team Providers Care Plain Clothes Police Officer Name Role Phone Dory Ray MD Primary Care Provide r Reason for Visit * Reason Comments Med Refill Encounter Details Date Type Department Care Team ([facility] st Contact Info) Description 08/06/2023 Refill [facility] MEDICINE 230 [place], [place] [phone] Dory Ray MD 230 [place] [address] Chronic right-sided low back pain with right-sided [...] Description 07/10/2024 11:00 AM EDT Office Visit [facility] MEDICINE [address] [place] [address] 08/15/2024 9:00 AM EDT Office Visit [address] [address] Dory Ray MD [address] [place] [address] documented as of this encounter Goals Goal [...] documented as of this encounter Care Teams Plain Clothes Police Officer Relationship Specialty Start Date End Date Dory Ray MD [address] [place] [address] PCP - General Family Medicine 01/03/19 Jeane Lemons Automation Application EngineerHumidifier Maintenance Worker 11/09/23 documented as of this encounter
--- OUTSIDE RECORDS SUMMARY | 2024-06-26 08:40 | XMS_ITS | Encounter Summary ---
Author Organization [employer] Address [address] [facility] 7t [place] [address] Care Team Providers Care Natural Gas Plant Supervisor Name Role Phone Dory Ray MD Primary Care Provide r Reason for Visit * Reason Comments Med Refill Encounter Details Date Type Department Care Team (Late st Contact Info) Description 08/05/2022 Refill [facility] MEDICINE [address] [place] [address] [phone] Dory Ray MD [address] [place] [address] Anxiety Social History Tobacco Use Types Packs/Day [...] Department Care Team (Late Contact Info) Description 07/10/2024 11:00 AM EDT Office Visit [facility] MEDICINE [address] [place] [address] [phone] 08/15/2024 9:00 AM EDT Office Visit [facility] MEDICINE [address] [place] [address] Dory Ray MD [address] [place] [address] [phone] documented as of this encounter Visit Diagnoses Diagnosis Anxiety Anxiety state, unspecified documented in this encounter Care Teams Natural Gas Plant Supervisor Relationship Specialty Start Date End Date Dory Ray MD 230 [place], [place] [phone] PCP - General Family Medicine 01/03/19 Jeane Lemons Professor Of Environmental EngineeringFood Analyst 11/09/23 documented as of this encounter
--- OUTSIDE RECORDS SUMMARY | 2024-06-26 08:40 | XMS_ITS | Encounter Summary ---
Author Organization [employer] Address [address] [place] [address] Care Team Providers Care Classifier Tender Name Role Phone Dory Ray MD Primary Care Provide r Reason for Visit * Reason Comments Med Refill Encounter Details Date Type Department Care Team ([facility] st Contact Info) Description 03/07/2022 Refill [facility] MEDICINE [address] [place] [address] Emilia De La Torre FNP [address] [place] [address] Fibromyalgia (Primary Dx) Social History Tobacco Use [...] . Pt stated will be traveling to [place] on 03/10/22. Last seen on 01/20/22. PCP Dr. Garcia documented in this encounter Plan of Treatment Upcoming Encounters Date Type Department Care Team (Late st Contact Info) Description 07/10/2024 11:00 AM EDT Office Visit [address] [address] 08/15/2024 9:00 AM EDT Office Visit [address] [address] Dory Ray MD [address] [place] [address] documented as of this encounter Visit Diagnoses Diagnosis Fibromyalgia- Primary Unspecified myalgia and myositis documented in this encounter Care Teams Classifier Tender Relationship Specialty Start Date End Date Dory Ray MD [address] [place] [address] PCP - General Family Medicine 01/03/19 Jeane Lemons Local Company Intermodal Truck DriverBorematic Operator 11/09/23 documented as of this encounter
--- OUTSIDE RECORDS SUMMARY | 2024-06-26 08:40 | XMS_ITS | Encounter Summary ---
Author Organization [employer] Address [address] [facility] 7t [place] [address] Care Team Providers Care Clinical Training Coordinator Name Role Phone Dory Ray MD Primary Care Provide r Reason for Visit * Reason Comments Med Refill Encounter Details Date Type Department Care Team (Late Contact Info) Description 07/20/[address] [facility] [address] [place] [address] Eden Cobb MD [address] [place] [phone] Migraine without status migrainosus, not intractable, unspecified [...] Description 07/10/2024 11:00 AM EDT Office Visit [facility] MEDICINE [address] [place] [address] 08/15/2024 9:00 AM EDT Office Visit [facility] MEDICINE [address] [place] [address] Dory Ray MD [address] [place] [address] documented as of this encounter Visit Diagnoses Diagnosis Migraine without status migrainosus, not intractable, unspecified migraine type documented in this encounter Care Teams Clinical Training Coordinator Relationship Specialty Start Date End Date Dory Ray MD [address] [place] [address] PCP - General Family Medicine 01/03/19 Jeane Lemons Rail Track LayerInspector Handbag Frames 11/09/23 documented as of this encounter
--- OUTSIDE RECORDS SUMMARY | 2024-06-26 08:40 | XMS_ITS | Encounter Summary ---
Author Organization [employer] Address [address] [facility] [address] [facility] [address] 7t [place] [address] Care Team Providers Care Mac Operator Name Role Phone Dory Ray MD Primary Care Provide r Reason for Visit * Reason Onset Date Comments Med Refill 06/05/2024 Lorazepam from psychiatrist 06/05/2024 Encounter Details Date Type Department Care Team ([facility] st Contact Info) Description 06/05/2024 Telephone [facility] MEDICINE [address] [place] [address] Dory Ray MD [address] [place] [address] Med Refill; Lorazepam from psychiatrist Social History Tobacco Use Types Packs/Day Years [...] Telephone Encounter - Rosalinda Fields RN - 06/05/2024 1:50 PM EST TC to patient, reminded pt she receives her Lorazepam from her psychiatrist. Pt to call psychiatrist for her refill. * Telephone Encounter - Jas Lozano - 06/05/2024 12:36 PM EST TC from pt requesting medication refill. Medications needing refill : LORazepam (Ativan) 0.5 MG tablet To be sent to: [facility]/pharmacy #[id number] [place], [place] - [address] [place] [address] documented in this encounter Plan of Treatment Upcoming Encounters Date Type Department Care Team ([facility] Contact Info) Description 07/10/2024 11:00 AM EDT Office Visit [facility] MED[facility] [address] [place] [address] 08/15/2024 9:00 AM EDT Office Visit [facility] MED[facility] [address] [place] [address] Dory Ray MD [address] [place] [address] documented as of this encounter Goals Goal [...] documented as of this encounter Care Teams Mac Operator Relationship Specialty Start Date End Date Dory Ray MD [address] [place] [address] PCP - General Family Medicine 01/03/19 Jeane Lemons Ice PullerReservations Agent 11/09/23 documented as of this encounter
--- OUTSIDE RECORDS SUMMARY | 2024-06-26 08:40 | XMS_ITS | Encounter Summary ---
Author Organization [employer] Address [address] [facility] [address] 7t [place] [address] Care Team Providers Care Sanitation Worker Cleaning Machinery Name Role Phone Dory Ray MD Primary Care Provide r Reason for Visit * Reason Onset Date Comments No Show 05/30/2024 Encounter Details Date Type Department Care Team ([facility] st Contact Info) Description 05/30/2024 Telephone [facility] MEDICINE [address] [place] [address] Dory Ray MD 230 [place] [address] No Show Social History Tobacco Use Types Packs/Day Years [...] encounter Miscellaneous Notes * Telephone Encounter - Amanda Lezama - 05/30/2024 11:21 AM EST Pt no showed to appt on 05/30/24 documented in this encounter Plan of Treatment Upcoming Encounters Date Type Department Care Team (Late st Contact Info) Description 07/10/2024 11:00 AM EDT Office Visit [facility] MEDICINE [address] [place] [address] 08/15/2024 9:00 AM EDT Office Visit [facility] MEDICINE [address] [place] [address] Dory Ray MD [address] [place] [address] documented as of this encounter Goals Goal Patient Goal Type Associated Problems Recent Progress Patient-Stated? Author Smoking cessation General No change(2023 2:25 PM EDT) No Cisneros, Kiah, PharmD Note: Maintain current progress, smoke 8 cigarettes per day or less. documented as of this encounter Visit Diagnoses Not on filedocumented in this encounter Additional Health Concerns Assessment Noted Time PHQ-9 Depression Total Score: 24 024 9:01 AM EDT documented as of this encounter Care Teams Sanitation Worker Cleaning Machinery Relationship Specialty Start Date End Date Dory Ray MD [address] [place] [address] PCP - General Family Medicine 01/03/19 Jeane Lemons Label SewerCustomer Services Coordinator 11/09/23 documented as of this encounter
--- OUTSIDE RECORDS SUMMARY | 2024-06-26 08:40 | XMS_ITS | Encounter Summary ---
Author Organization [employer] Address [address] [facility] [address] 7t [place] [address] Care Team Providers Care Home Restoration Service Cleaner Name Role Phone Dory Ray MD Primary Care Provide r Reason for Visit * Reason Onset Date Comments Durable Medical Equipment 03/21/2024 Encounter Details Date Type Department Care Team ([facility] st Contact Info) Description 03/21/2024 Telephone [facility] MEDICINE [address] [place] [address] Dory Ray MD 230 [place] [address] Durable Medical Equipment Social History Tobacco Use [...] with others, in a hotel, in a correction, living outside on the street, on a beach, in a car, or in a park 08/19/[address] you li ve. Do you have problems with any of the following? None of the above;Lead [place] or Pipes;Pests such as bugs, ants, or [...] requesting DME for Wipes. Contact pt at [phone] documented in this encounter Plan of Treatment Upcoming Encounters Date Type Department Care Team (Late st Contact Info) Description 07/10/2024 11:00 AM EDT Office Visit [facility] MEDICINE [address] [place] [phone] 08/15/2024 9:00 AM EDT Office Visit [facility] MEDICINE [address] [place] [address] Dory Ray MD 230 [place] [address] documented as of this encounter Goals Goal [...] documented as of this encounter Care Teams Home Restoration Service Cleaner Relationship Specialty Start Date End Date Dory Ray MD [address] [place] [address] PCP - General Family Medicine 01/03/19 Jeane Lemons Behavioral Health Care ManagerExhibitor Sales 11/09/23 documented as of this encounter
--- OUTSIDE RECORDS SUMMARY | 2024-06-26 08:40 | XMS_ITS | Encounter Summary ---
Author Organization [employer] Address [address] [facility] [address] 7t [place] [address] Care Team Providers Care Scrap Stripper Hand Name Role Phone Dory Ray MD Primary Care Provide r Reason for Visit * Reason Onset Date Comments PA 07/29/2022 Encounter Details Date Type Department Care Team ([facility] st Contact Info) Description 07/29/2022 Telephone [facility] MEDICINE [address] [place] [address] Dory Ray MD 230 [place] [address] PA Social History Tobacco Use Types Packs/Day [...] Description 07/10/2024 11:00 AM EDT Office Visit [facility] MEDICINE [address] [place] [address] 08/15/2024 9:00 AM EDT Office Visit [facility] MEDICINE [address] [place] [address] Dory Ray MD [address] [place] [address] documented as of this encounter Visit Diagnoses Not on filedocumented in this encounter Care Teams Scrap Stripper Hand Relationship Specialty Start Date End Date Dory Ray MD [address] [place] [address] PCP - General Family Medicine 01/03/19 Jeane Lemons Leaf Size PickerLoan Manager 11/09/23 documented as of this encounter
--- OUTSIDE RECORDS SUMMARY | 2024-06-26 08:40 | XMS_ITS | Encounter Summary ---
Author Organization [employer] Address [address] [facility] [address] 7t [place] [address] Care Team Providers Care Voltage Regulator Assembler Name Role Phone Dory Ray MD Primary Care Provide r Reason for Visit * Reason Comments Med Refill Encounter Details Date Type Department Care Team ([facility] st Contact Info) Description 04/08/2024 Refill [facility] MEDICINE 230 [place] [address] Dory Ray MD 230 [place] [address] Chronic right-sided low back pain with right-sided [...] of the following? None of the above;Lead [place] or Pipes;Pests such as bugs, ants, or [...] Description 07/10/2024 11:00 AM EDT Office Visit [facility] MEDICINE [address] [place] [phone] 08/15/2024 9:00 AM EDT Office Visit [facility] MEDICINE [address] [place] [address] Dory Ray MD [address] [place] [address] documented as of this encounter Goals Goal [...] documented as of this encounter Care Teams Voltage Regulator Assembler Relationship Specialty Start Date End Date Dory Ray MD 230 [place] [address] PCP - General Family Medicine 01/03/19 Jeane Lemons Dye Reel Operator HelperCase Liner 11/09/23 documented as of this encounter
--- OUTSIDE RECORDS SUMMARY | 2024-06-26 08:40 | XMS_ITS | Encounter Summary ---
Author Organization [employer] Address [address] [facility] [address] 7t [place] [address] Care Team Providers Care Pulmonology Technician Name Role Phone Dory Ray MD Primary Care Provide r Reason for Visit * Reason Onset Date Comments requesting call back 03/24/2022 Encounter Details Date Type Department Care Team ([facility] Contact Info) Description 03/24/2022 Telephone [facility] MEDICINE 230 [place] [address] Dory Ray MD 230 [place] [address] requesting call back Social History Tobacco Use [...] pt returning call Please contact pt at [phone] documented in this encounter Plan of Treatment Upcoming Encounters Date Type Department Care Team ([facility] st Contact Info) Description 07/10/2024 11:00 AM EDT Office Visit [address] [address] 08/15/2024 9:00 AM EDT Office Visit [address] [address] Dory Ray MD [address] [place] [address] documented as of this encounter Visit Diagnoses Not on filedocumented in this encounter Care Teams Pulmonology Technician Relationship Specialty Start Date End Date Dory Ray MD [address] [place] [address] [phone] PCP - General Family Medicine 01/03/19 Jeane Lemons Engineering Project DesignerSolid Die Cutter 11/09/23 documented as of this encounter
--- OUTSIDE RECORDS SUMMARY | 2024-06-26 08:40 | XMS_ITS | Encounter Summary ---
Author Organization [employer] Address [address] [facility] [address] 7t [place] [address] Care Team Providers Care Engineering Laboratory Technician Name Role Phone Dory Ray MD Primary Care Provide r Encounter Details Date Type Department Care Team (Late Contact Info) Description 04/07/2022 Orders Only [facility] MEDICINE [address] [place] [phone] Rohini Middleton MD [address] [place] [address] [phone] Pain (Primary Dx) Social History Tobacco Use [...] Description 07/10/2024 11:00 AM EDT Office Visit [facility] MEDICINE [address] [place] [phone] 08/15/2024 9:00 AM EDT Office Visit [facility] MEDICINE 230 [place] [address] Dory Ray MD 230 [place], [place] [phone] documented as of this encounter Visit Diagnoses Diagnosis Pain- Primary Generalized pain documented in this encounter Care Teams Engineering Laboratory Technician Relationship Specialty Start Date End Date Dory Ray MD [address] [place] [address] [phone] PCP - General Family Medicine 01/03/19 Jeane Lemons Feller Buncher OperatorCooker Tender 11/09/23 documented as of this encounter
--- OUTSIDE RECORDS SUMMARY | 2024-06-26 08:40 | XMS_ITS | Encounter Summary ---
Author Organization [employer] Address [address] [facility] 7t [place] [address] Care Team Providers Care Cleaning Manager Name Role Phone Dory Ray MD Primary Care Provide r Reason for Visit * Reason Comments Med Refill Encounter Details Date Type Department Care Team ([facility] Contact Info) Description 10/06/2022 Refill [facility] PEDS [address] [place] [address] Dory Ray MD 230 [place] [address] Chronic pain syndrome Social History Tobacco Use [...] Upcoming Encounters Date Type Department Care Team ([facility] Contact Info) Description 07/10/2024 11:00 AM EDT Office Visit [facility] MEDICINE [address] [place] [address] [phone] 08/15/2024 9:00 AM EDT Office Visit [facility] MEDICINE [address] [place] [address] [phone] Dory Ray MD [address] [place], [place] [phone] documented as of this encounter Visit Diagnoses Diagnosis Chronic pain syndrome documented in this encounter Additional Health Concerns Assessment Noted Time PHQ-9 Depression Total Score: 21 023 9:24 AM EDT documented as of this encounter Care Teams Cleaning Manager Relationship Specialty Start Date End Date Dory Ray MD [address] [place] [address] PCP - General Family Medicine 01/03/19 Jeane Lemons Claim RepFlume Worker 11/09/23 documented as of this encounter
--- OUTSIDE RECORDS SUMMARY | 2024-06-26 08:40 | XMS_ITS | Encounter Summary ---
Author Organization [employer] Address [address] [facility] [address] 7t [place] [address] Care Team Providers Care Access Manager Name Role Phone Dory Ray MD Primary Care Provide r Reason for Visit * Reason Comments Med Refill Encounter Details Date Type Department Care Team ([facility] st Contact Info) Description 02/22/2024 Refill [facility] MED [facility] PEDS [address] [place], [place] [phone] Dory Ray MD [address] [place] [address] Chronic pain syndrome; Anxiety Social History Tobacco [...] of the following? None of the above;Lead [place] or Pipes;Pests such as bugs, ants, or [...] Description 07/10/2024 11:00 AM EDT Office Visit [facility] MEDICINE [address] [place] [address] 08/15/2024 9:00 AM EDT Office Visit [address] [address] Dory Ray MD [address] [place] [address] documented as of this encounter Goals Goal [...] documented as of this encounter Care Teams Access Manager Relationship Specialty Start Date End Date Dory Ray MD 230 [place] [address] PCP - General Family Medicine 01/03/19 Jeane Lemons LcpcWellness Program Manager 11/09/23 documented as of this encounter
--- OUTSIDE RECORDS SUMMARY | 2024-06-26 08:40 | XMS_ITS | Encounter Summary ---
Author Organization [employer] Address [address] [facility] 7t [place] [address] Care Team Providers Care Customer Development Representative Name Role Phone Dory Ray MD Primary Care Provide r Reason for Visit * Reason Comments Med Refill Encounter Details Date Type Department Care Team (Late st Contact Info) Description 06/22/2022 Refill [facility] MEDICINE [address] [place] [phone] Name, MD Soy [address] [place] [address] Recurrent major depressive episodes, moderate (CMS/HCC); Migraine [...] Description 07/10/2024 11:00 AM EDT Office Visit [facility] MEDICINE [address] [place] [address] [phone] 08/15/2024 9:00 AM EDT Office Visit [facility] MEDICINE [address] [place] [address] [phone] Dory Ray MD 230 [place] [address] documented as of this encounter Visit Diagnoses Diagnosis Recurrent major depressive episodes, moderate (CMS/HCC) Major depressive disorder, recurrent episode, moderate Migraine without status migrainosus, not intractable, unspecified migraine type documented in this encounter Care Teams Customer Development Representative Relationship Specialty Start Date End Date Dory Ray MD [address] [place] [address] PCP - General Family Medicine 01/03/19 Jeane Lemons Pile TrimmerMarketing And Communications Officer 11/09/23 documented as of this encounter
--- OUTSIDE RECORDS SUMMARY | 2024-06-26 08:40 | XMS_ITS | Encounter Summary ---
Author Organization [employer] Address [address] [facility] [address] 7t [place] [address] Care Team Providers Care Garment Patternmaker Name Role Phone Dory Ray MD Primary Care Provide r Reason for Visit * Reason Comments Med Refill Encounter Details Date Type Department Care Team ([facility] st Contact Info) Description 05/20/2023 Refill [facility] MEDICINE [address] [place], [place] [phone] oDry Ray MD 230 [place], [place] [phone] Chronic pain syndrome Social History Tobacco Use [...] Description 07/10/2024 11:00 AM EDT Office Visit [facility] MEDICINE [address] [place] [address] 08/15/2024 9:00 AM EDT Office Visit [address] [address] Dory Ray MD [address] [place] [address] documented as of this encounter Goals Goal [...] documented as of this encounter Care Teams Garment Patternmaker Relationship Specialty Start Date End Date Dory Ray MD [address] [place] [phone] PCP - General Family Medicine 01/03/19 Jeane Lemons Order BuilderBusiness Account Manager 11/09/23 documented as of this encounter
--- OUTSIDE RECORDS SUMMARY | 2024-06-26 08:41 | XMS_ITS | Encounter Summary ---
Author Organization [employer] Address [address] [facility] 7t [place] [address] Care Team Providers Care Speech Assistant Name Role Phone Dory Ray MD Primary Care Provide r Reason for Visit * Reason Comments Med Refill Encounter Details Date Type Department Care Team ([facility] Contact Info) Description 11/16/2022 Refill [facility] MEDICINE [address] [place] [address] Eden Cobb MD [address] [place] [phone] Anxiety Social History Tobacco Use Types Packs/Day [...] Upcoming Encounters Date Type Department Care Team ([facility] Contact Info) Description 07/10/2024 11:00 AM EDT [facility] Visit [facility] [address] [place] [address] [phone] 08/15/2024 9:00 AM EDT Office Visit [facility] MEDICINE [address] [place] [address] [phone] Dory Ray MD 230 [place] [address] documented as of this encounter Visit Diagnoses Diagnosis Anxiety Anxiety state, unspecified documented in this encounter Additional Health Concerns Assessment Noted Time PHQ-9 Depression Total Score: 21 023 9:24 AM EDT documented as of this encounter Care Teams Speech Assistant Relationship Specialty Start Date End Date Dory Ray MD 230 [place] [address] PCP - General Family Medicine 01/03/19 Jeane Lemons Casting RepairerKitchen Stewardess 11/09/23 documented as of this encounter
--- OUTSIDE RECORDS SUMMARY | 2024-06-26 08:41 | XMS_ITS | Clinical Summary ---
Author Organization [facility] Address [address] [place] [address] Phone Care Team Providers Care Bed Rubber Name Role Phone Dory Ray MD Primary [...] Name Administration Dates Next Due Hepatitis B (Uubjaer-P-Akjsu , Recombivax HB-Adult) 19yo and older 01/18/2007,08/24/2006 [...] Luo OTHER SURGICAL HISTORY 09/25/2020 Left PROCEDURE: DE NEUROPLASTY &/TRANSPOSITION ULNAR NERVE ELBOW; COMMENT: Submuscular Transposition, Dr. Luo OTHER SURGICAL HISTORY 04/14/2012 Left PROCEDURE: DE DCMPRN FASCT F/ARM&WRST FLXR/XTNSR W/O DBRDMT; COMMENT: 1st [place] Compartment/De Quervain's Release, Dr. Luo Medical History [...] - 19+ 3-dose series) 03/15/2007 01/18/2007, 08/24/2006 Cervical Cancer Screening: P ap Smear 06/08/2014 06/09/2011 Pneumococcal Vaccine: 50+ Years (2 of 2 - PCV) 04/17/2015 04/17/2014 Pneumococcal Vaccine: Pediatrics (0 to 5 Years) and At-Risk Patients (6 to 64 Years) (2 of 2 - PCV) 04/17/2015 04/17/2014 DTaP,Tdap,and Td Vaccines (2 - Td or Tdap) 12/09/2021 12/10/2011 Colorectal Cancer Screening: Colonoscopy 03/07/2022 Depression Screening [...] Recently Relevant to Health Maintenance Care Teams Bed Rubber Relationship Specialty Start Date End Date Dory Ray MD [address] [place] [phone] PCP - General Internal Medicine 12/30/20
--- OUTSIDE RECORDS SUMMARY | 2024-06-26 08:41 | XMS_ITS | Encounter Summary ---
Author Organization [employer] Address [address] [facility] 7t [place] [address] Care Team Providers Care Doll Wig Maker Name Role Phone Dory Ray MD Primary Care Provide r Reason for Visit * Reason Comments Med Refill Encounter Details Date Type Department Care Team (Late Contact Info) Description 12/09/2022 Refill [facility] MEDICINE [address] [place] [address] Dory Ray MD [address] [place] [address] Anxiety Social History Tobacco Use Types Packs/Day [...] Description 07/10/2024 11:00 AM EDT Office Visit [facility] MEDICINE [address] [place] [address] [phone] 08/15/2024 9:00 AM EDT Office Visit [facility] MEDICINE [address] [place] [address] [phone] Dory Ray MD 230 [place] [address] documented as of this encounter Visit Diagnoses Diagnosis Anxiety Anxiety state, unspecified documented in this encounter Additional Health Concerns Assessment Noted Time PHQ-9 Depression Total Score: 21 023 9:24 AM EDT documented as of this encounter Care Teams Doll Wig Maker Relationship Specialty Start Date End Date Dory Ray MD [address] [place] [address] PCP - General Family Medicine 01/03/19 Jeane Lemons Systems Checkout MechanicShop Manager 11/09/23 documented as of this encounter
--- OUTSIDE RECORDS SUMMARY | 2024-06-26 08:41 | XMS_ITS | Encounter Summary ---
Author Organization [employer] Address [address] 7[address] [place] [address] Care Team Providers Care Machine Coil Assembler Name Role Phone Dory Ray MD Primary Care Provide r Reason for Visit * Reason Comments Med Refill Encounter Details Date Type Department Care Team ([facility] st Contact Info) Description 06/15/2024 Refill [facility] MEDICINE 230 [place], [place] [phone] Dory Ray MD [address] [place] [address] Chronic right-sided low back pain with right-sided [...] Description 07/10/2024 11:00 AM EDT Office Visit [facility] MEDICINE [address] [place] [phone] 08/15/2024 9:00 AM EDT Office Visit [address] [address] Dory Ray MD [address] [place] [address] documented as of this encounter Goals Goal [...] as of this encounter Care Teams Machine Coil Assembler Relationship Specialty Start Date End Date Dory Ray MD [address] [place] [address] PCP - General Family Medicine 01/03/19 Jeane Lemons Compensation InternCapture Manager 11/09/23 documented as of this encounter
--- OUTSIDE RECORDS SUMMARY | 2024-06-26 08:41 | XMS_ITS | Encounter Summary ---
Author Organization [employer] Address [address] [facility] [address] 7t [place] [address] Care Team Providers Care Tattoo Artist Name Role Phone Dory Ray MD Primary Care Provide r Reason for Visit * Reason Onset Date Comments Referral 06/22/2024 Encounter Details Date Type Department Care Team ([facility] st Contact Info) Description 06/22/2024 Telephone [facility] MEDICINE 230 [place] [address] Dory Ray MD 230 [place] [address] Referral Social History Tobacco Use Types Packs/Day Years [...] encounter Miscellaneous Notes * Telephone Encounter - Cassi Cisse RN - 06/22/2024 9:14 AM EDT [place] [facility] [place], they confirm they have active referral for pt.'s LDCT. They will reach out to pt. Today to schedule. * Telephone Encounter - Jas Lozano - 06/22/2024 9:08 AM EDT Tc from pt stating that she wax supposed to get a call from a referral for a Value Analysis Coordinator but never received a call to make a Apt. Bread Panner dis not see any referral regarding Pulmonology. Contact pt at [phone] documented in this encounter Plan of Treatment Upcoming Encounters Date Type Department Care Team (Late st Contact Info) Description 07/10/2024 11:00 AM EDT Office Visit [facility] MEDICINE [address] [place] [address] 08/15/2024 9:00 AM EDT Office Visit [facility] MEDICINE [address] [place] [address] Dory Ray MD 230 [place] [address] documented as of this encounter Goals Goal [...] documented as of this encounter Care Teams Tattoo Artist Relationship Specialty Start Date End Date Dory Ray MD 230 [place] [address] PCP - General Family Medicine 01/03/19 Jeane Lemons Spot CleanerAdmitting Representative 11/09/23 documented as of this encounter
--- OUTSIDE RECORDS SUMMARY | 2024-06-26 08:41 | XMS_ITS | Clinical Summary ---
Author Organization [employer] Address [address] [place] [address] Care Team Providers Care Insurance Application Investigator Name Role Phone Dory Ray MD Primary [...] MORNING AND TAKE 1 CAPSULE AT NIGHT Active buPROPion XL (Wellbutrin XL) 300 MG [...] split. 60 tablet 2 024 2024 Active budesonide-formot kori (Symbicort) 160-4.5 MCG/ACT inhalerIndication s:Asthma-chronic obstructive pulmonary disease overlap syndrome (CMS/HCC) Inhale 2 puffs in the morning and at bedtime. Rinse mouth with water after use to reduce aftertaste and incidence of candidiasis. Do not swallow. 1 each 024 2024 Active traZODone (Desyrel) 50 MG tabletIndications :Recurrent major depressive episodes, moderate (CMS/HCC) TAKE 1 TABLET BY MOUTH EVERY DAY AT BEDTIME NEEDED FOR SLEEP 90 tablet 1 Active topiramate (Topamax) 50 MG tabletIndications :Chronic [...] topically 2 times daily. 50 g 2 024 Active nicotine (Nicoderm, Step 2) 14 MG/24HR [...] SMOKING CESSATION. 144 lozenge 5 025 Active mirtazapine (Remeron) 45 MG tablet TAKE [...] at bedtime for anxiety (severe anxiety). Active cyclobenzaprine (Flexeril) 10 MG tabletIndications :Chronic midline thoracic back pain,Neck pain TAKE 1 TABLET BY MOUTH THREE TIMES DAILY IN THE MORNING, AT NOON, AND AT BEDTIME NEEDED FOR MUSCLE SPASMS 60 tablet 2 025 Active hydroCHLOROthiazi de (HYDRODiuril) 25 MG tabletIndications :Essential hypertension TAKE 1 TABLET BY MOUTH EVERY DAY IN THE MORNING 90 tablet 1 025 Active traMADol (Ultram) 50 MG tabletIndications :Chronic right-sided low back pain with right-sided sciatica TAKE 1 TABLET BY MOUTH EVERY 6 HOURS NEEDED FOR SEVERE PAIN 112 tablet 025 2024 Active hydroCHLOROthiazi de (HYDRODiuril) 25 MG tabletIndications :Essential hypertension TAKE 1 TABLET BY MOUTH EVERY DAY IN THE MORNING 90 tablet 1 024 2024 Discontinued traMADol (Ultram) 50 MG tabletIndications :Chronic right-sided low back pain with right-sided sciatica Take 1 tablet (50 mg) by mouth every 6 (six) hours if needed for severe pain for up to 28 days. 112 tablet 025 2024 Discontinued Active Problems Problem Noted Date Diagnosed Date Diazepam adverse reaction 05/15/2024 Assessment & Plan (05/15/2024 4:26 PM EST): Now is completely resolved it was advised to avoid this medication in the future Vaginal discharge 02/28/2024 Assessment & Plan (02/28/2024 [...] for lung cancer 01/10/2024 Assessment & Plan (05/15/2024 4:29 PM EST): Information about lung cancer screening given to patient, she was given the office number for her to call back Assessment & Plan (01/10/2024 1:51 PM EDT): Lung cancer screening form filled, patient will be refer for lung cancer screening Long-term current use of opiate analgesic 2023 Overview (05/17/2024): Medication: Tramadol 50mg Q6H PRN Indication: bulging lumbar disc, fibromyalgia Last ACCREDITED LEGAL SECRETARY Agreement: 03/13/24 Additional considerations/risk factors: BZO Tier II (ACCREDITED LEGAL SECRETARY visits Q3 months) - last evaluated Mar [...] Bulging lumbar disc 06/14/2023 Assessment & Plan (05/17/2024 2:37 PM EST): History of chronic pain associated with fibromyalgia and lumbar back pain Good engagement and participation with Group Medical Visit model Encouraged multifactorial approach to pain control including pharm and non-pharm modalities Utox as expected, pill count with 70 more pills than expected. May consider decreasing dose/frequency. Assessment & Plan (03/15/2024 5:01 PM EST): History of chronic pain associated with fibromyalgia and lumbar back pain Good engagement and participation with Group Medical Visit model Encouraged multifactorial approach to pain control including pharm and non-pharm modalities Continues with COT. See district sales manager for urine/pill count. Assessment & Plan (01/10/2024 [...] culture Essential hypertension 03/04/2022 Assessment & Plan (05/15/2024 4:28 PM EST): Blood pressure seems to be stable Advise low-sodium diet and to continue with current medication regimen which is hydrochlorothiazide 25 mg daily Assessment & Plan (12/01/2023 12:33 PM EDT): [...] Marlene agrees to go in person to [facility] to follow up on status of a [...] Encounters Date Type Department Care Team Description 06/22/2024 Telephone [facility] [address] [place] [address] Dory Ray MD Referral 06/15/2024 Population Health Risk Score [facility] ([facility] Department [address] [phone] Provider, Population Health Generic 06/15/2024 Refill [facility] [address] [place] [address] Dory Ray MD Chronic right-sided low back pain with right-sided sciatica 06/12/2024 Refill [facility] [address] [place] [address] Dory Ray MD Essential hypertension 06/05/2024 Telephone [facility] [address] [place] [address] Dory Ray MD Med Refill; Lorazepam from psychiatrist 05/30/2024 Telephone [facility] [address] [place] [address] Dory Ray MD No Show 05/28/2024 Telephone [facility] [address] [place] [address] Dory Ray MD Chart prep 05/22/2024 Telephone [facility] [address] [place] [address] Dory Ray MD Rescheduled chronic pain group appt 05/17/2024 Refill [facility] [address] [place] [address] Dory Ray MD Chronic right-sided low back pain with right-sided sciatica 05/17/2024 Refill [facility] [address] [place] [address] Dory Ray MD Chronic right-sided low back pain with right-sided sciatica 05/16/2024 Telephone [facility] [address] [place] [address] Jeaneth Regalado, RN LDCT referral 05/16/2024 Patient Outreach [facility] [address] [place] [address] Dory Ray MD Pre-visit Planning (SDOH screening negative and tobacco screening positive) 05/15/2024 11:00 AM EST Office Visit [facility] [address] [place] [address] Emilia De La Torre, MARIE Bulging lumbar disc (Primary Dx); Long-term current use of opiate analgesic; Fibromyalgia 05/15/2024 9:30 AM EST Office Visit [facility] [address] [place] [address] Dory Ray MD Adverse effect of diazepam, initial encounter (Primary Dx); Essential hypertension; Screening for lung cancer 05/15/2024 Refill [facility] [address] [place] [address] Dory Ray MD Chronic midline thoracic back pain; Neck pain 05/15/2024 Travel 05/14/2024 Orders Only GENERIC EXTERNAL DATA DEPARTMENT Provider, Generic External Data 05/14/[address] [address] Dustin Hickey [place] Chart Prep 05/03/2024 Refill [facility] [address] [place] [address] Dory Ray MD Essential hypertension 04/17/[address] [address] Dustin Hickey [place] Durable Medical Equipment 04/17/2024 Telephone [facility] [address] [place] [address] Dory Ray MD ER Follow-up 04/16/2024 Refill [facility] [address] [place] [address] Katerine Killian MD Chronic right-sided low back pain with right-sided sciatica 04/16/2024 Refill [facility] [address] [place] [address] Dory Ray MD 04/13/2024 Orders Only GENERIC EXTERNAL DATA DEPARTMENT Provider, Generic External Data 04/12/2024 Orders Only GENERIC EXTERNAL DATA DEPARTMENT Provider, Generic External Data 04/12/2024 Telephone [facility] [address] [place] [address] Dory Ray MD Nurse Triage 04/11/2024 Refill [facility] [address] [place] [address] Dory Ray MD Migraine without status migrainosus, not intractable, unspecified migraine type 04/10/2024 Refill [facility] [address] [place] [address] Dory Ray MD Chronic right-sided low back pain with right-sided sciatica 04/09/2024 Orders Only [facility] External Provider, [facility] 04/08/2024 Refill [facility] [address] [place] [address] Dory Ray MD Chronic right-sided low back pain with right-sided sciatica; Essential hypertension from Last 3 Months Immunizations Name Administration [...] Sign Reading Time Taken Comments Blood Pressure 129/89 05/15/2024 9:36 AM EST Pulse 86 05/15/2024 9:36 AM EST Temperature 36.6 ??C (97.8 ??F) 05/15/2024 9:36 AM ES T Respiratory Rate 18 05/15/2024 9:36 AM EST Oxygen Saturation 94% 05/15/2024 9:36 AM EST Inhaled Oxygen Concentration - - Weight 72.8 kg (160 lb 6.4 oz) 05/15/2024 9:36 A M EST Height 152.4 cm (5') 05/15/2024 9:36 AM EST Body Mass Index 31.33 05/15/2024 9:36 AM EST Plan of Treatment Upcoming Encounters Date Type Department Care Team (Late st Contact Info) Description 07/10/2024 11:00 AM EDT Office Visit [facility] [address] [place] [address] 08/15/2024 9:00 AM EDT Office Visit [facility] [address] [place] [phone] Dory Ray MD [address] [place] [phone] Health Maintenance Due Date Last Done Comments [...] 03/13/2024 Depression Monitoring (PHQ-9) 07/10/2024 01/10/2024, 01/10/2024 Depression Screening 01/09/2025 01/10/2024, 01/10/20 Alcohol/Substance Use Screening 02/27/2025 02/28/2024 Mammogram 04/09/2025 04/09/2024, 05/06, 02/18/2022, Additional history exists Tobacco Screening 05/15/2025 05/15/2024 SDOH Screening 05/16/2025 05/16/2024 Colorectal Cancer Screening 12/27/2025 FIT DNA/Cologuard 12/27/2025 [...] Procedure Name Priority Date/Time Associated Diagnosis Comments POCT MARÍA-14 URINE DRUG SCREEN Routine 05/15/2024 2:27 PM EST Long-term current use of opiate analgesic HEMATOXYLIN AND EOSIN STAIN Routine 05/14/2024 9:56 AM EST CULTURE, URINE, ROUTINE Routine 05/14/2024 9:34 AM EST CHLAMYDIA/N. GONORRHOEAE RNA, TMA, UROGENITAL Routine 05/14/2024 9:34 AM EST MR BRAIN WO CONTRAST Routine 04/14/2024 1:23 [...] CONTRAST BILATERAL Routine 04/09/2024 8:56 AM EST HPV MRNA E6/E7 REFLEX TO HPV 16, [...] Recently Relevant to Health Maintenance Results * POCT MARÍA-14 Urine Drug Screen (05/15/2024 2:27 PM EST) Benzodiazepines Screen, Urine Positive Urine Urine specimen obtained by clean catch procedure / Unknown 05/15/2024 2:27 PM EST Narrative Danyell Garrett RN - 05/15/2024 2:27 PM EST .UTOX cup Lot#[id number] Exp. 12/27/25 Internal Pass Control Emilia De La Torre PRINT PRODUCTION COORDINATOR POINT OF CARE TEST ENTER/EDIT ORDERABLES Final Result * Hematoxylin and Eosin Stain (05/14/2024 9:56 AM EST) 05/14/2024 9:56 AM EST 05/15/2024 6:10 AM EST Narrative [facility] - 05/17/2024 11:01 AM EST ----- ------- Name: Marlene Hicks ? Age/Sex: 48/F ? : 1975 Unit#: [id number] ?? Attend Dr: Macho Sarkar MD ?Re05/14/24 ?Status: DEP REF ? Location: HO.LNP ?Disch: ? ----- ------- SPEC : [id number] ?RECD: 05/15/24 ? STATUS: ??SOUT ? REQ NUM: [id number] ? TREVON: 05/14/24 ? SUBM DR: Macho Sarkar MD ? ENTERED: ??05/15/24 ?SP TYPE: Surgical ? OTHR DR: Dory Ray MD ? ORDERED: ??HE Stain/2, Gross Micro L4 ? Diagnosis ?? Endometrium, biopsy: ??Disordered proliferative endometrium; no atypia or hyperplasia ?? identified. ?Clinical History AUB ?Microscopic Description Microscopic sections reviewed. ? Material Received ?? EMB ? Gross Description Received in formalin labeled ?EMB? are fragments of pink-العلي soft tissue mixed with mucus and clotted blood forming an aggregate measuring 1.7 x 1.5 x 0.3 cm which is wrapped in lens paper and entirely submitted for microscopic examination, multiple pieces in cassette [facility] Copies To: ?? Dory Ray MD ?? [facility] ?? [address] [facility] ?? [place] [address] ?? [phone] ?? Macho Sarkar MD ?? [facility] ?? [address] ?? [place] [address] ?? [phone] ----- ------- Signed (signature on file) Galen Booker MD 05/17/24 110 ? ----- ------- ? END OF REPORT ? us Generic External Data Provider LAB BLOOD ORDERAB LES Final Result [facility] [address] [place] [address] [phone] * Chlamydia/N. Gonorrhoeae RNA, TMA, Urogenitial (05/14/2024 9:34 AM EST) CT PCR NOT DETECTED Not Detect. [facility] Comment:A not detected test result does not exclude the possibilityof infection because test results can be affected byimproper specimen collection, concurrent antibiotic therapy,or the number of organisms in the specimen which may bebelow the sensitivity of the test. As with many diagnostictests, results from the Xpert CT/NG assay should beinterpreted in conjunction with other laboratory andclinical data available to the clinician.Xpert CT/NG performance has not been evaluated in patientsless than 14 years of age. The assay should not be used forthe evaluationof suspected sexual abuse or for other medico-legalindications. Additional testing is recommended in anycircumstance when false positive or false negative resultscould lead to adverse medical, social or psychologicalconsequences. NG PCR NOT DETECTED Not Detect. [facility] Comment:A not detected test result does not exclude the possibilityof infection because test results can be affected byimproper specimen collection, concurrent antibiotic therapy,or the number of organisms in the specimen which may bebelow the sensitivity of the test. As with many diagnostictests, results from the Xpert CT/NG assay should beinterpreted in conjunction with other laboratory andclinical data available to the clinician.Xpert CT/NG performance has not been evaluated in patientsless than 14 years of age. The assay should not be used forthe evaluationof suspected sexual abuse or for other medico-legalindications. Additional testing is recommended in anycircumstance when false positive or false negative resultscould lead to adverse medical, social or psychologicalconsequences. 05/14/2024 9:34 AM EST 05/14/2024 3:23 PM EST Narrative [facility] - 05/15/2024 5:56 AM EST Vaginal Generic External Data Provider LAB MICROBIOLOGY - GENERAL ORDERABLES Final Result Performing Organization Address City/[facility] Co de Phone Number [facility] [address] [place] [address] [phone] * Culture, Urine, Routine (05/14/2024 9:34 AM EST) Urine Urine specimen obtained by clean catch procedure / Unknown 05/14/2024 9:34 AM EST 05/14/2024 3:23 PM EST Comment:UACC Narrative [facility] - 05/16/2024 10:49 AM EST Urine Culture No growth. Specimen Source: Urine clean catch Baeta External Data Provider LAB MICROBIOLOGY - GENERAL ORDERABLES Final Result Performing Organization Address [facility] de Phone Number [facility] [address] [place] [phone] * MR Brain w/o Contrast (04/14/2024 1:23 PM EST) Anatomical Region Laterality Modality Brain Magnetic Resonan ce 04/14/2024 1:23 PM EST Narrative 04/14/2024 1:25 PM EST ? [facility] ?[address] ?[place] [address] ? Magnetic Resonance Report ? Signed ? Patient: Kurt,Marlene ?MR#: [id number] ?? [id number] ? : 1975 ?Acct:[id number] ? Age/Sex: 48 / F ?ADM Date: 01/10/25 ? Loc: HO.IMC ?453-1 ? Attending Dr: Rohini STOCKTON ? Ordering Physician: Nader Stringer MD ?? Date of Service: 04/13/24 ?? Procedure(s): MR head/brain wo con ?? Accession Number(s): [id number] ? cc: Dory Ray MD; Nader Stringer MD ? CLINICAL HISTORY: slurred speech ? MR Brain without gadolinium ? Comparison: CT/SR - CT HEAD FOR STROKE - 04/13/24 17:26 EST ?? MR - MRI BRAIN [facility] [address] - 06/07/06 00:00 EST ? Findings: ?? [...] MD ? Signed By: ?<Electronically signed by Irnee Costa MD in OV> ? 04/14/24 1324 ? DD/ 1323 ? TD/TT: 04/14/24 1323 ? Report Clerk: ? Procedure Note Jonathaneusebia, Image - 04/14/2024 [place] [address] Magnetic Resonance Report Signed Patient: Crissy Hicks#: [id number] : 1975Acct:[id number] Age/Sex: 48 / FADM Date: 04/13/24 Loc: [facility] 453-[address]: Rohini STOCKTON Ordering Physician: Nader Stringer MD Date of Service: 04/13/24 Procedure(s): MR head/brain wo con Accession Number(s): [id number] cc: Dory Ray MD; Nader Stringer MD CLINICAL HISTORY: slurred speech MR Brain without gadolinium Comparison: CT/SR - CT HEAD FOR STROKE - 04/13/24 17:26 EST MR [place] [id number] - 06/07/06 00:00 EST Findings: No restricted [...] 04/14/24 1324 DD/ 1323 TD/TT: 04/14/24 1323 Report Clerk: [facility] External Provider IMG MRI PROCEDURES Edited Result - Final * CTA Head Stroke w/ and w/o Contrast (04/13/2024 7:07 PM EST) Anatomical Region Laterality Modality Computed Tomogra phy 04/13/2024 7:07 PM EST Narrative 04/13/2024 7:08 PM EST ? [facility] ?[address] ?[place] [address] ? CT Scan Report ? Signed ? Patient: KurtMarlene ?MR#: [id number] ?? [id number] ? : 1975 ?Acct:[id number] ? Age/Sex: 48 / F ?ADM Date: 04/13/24 ? Loc: HO.ED ? Attending Dr: ? Ordering Physician: Thuy Duffy DO ?? Date of Service: 04/13/24 ?? Procedure(s): CT angio head neck STROKE ?? Accession Number(s): [id number] ? cc: Dory Ray MD; Thuy Duffy DO ? Report Number: ?? [id number]: Total DLP = 1542.00 mGy-cm ? CLINICAL HISTORY: aphasia ? CT angiography head and neck with contrast and CT venogram of the head. 3D ?? Postprocessing. ? Comparison: CR/SR - NECK SOFT TISSUE [id number] - 09/08/18 23:26 EDT ? Findings: ?? [...] by Rhianna Lopez MD in OV> ? 04/13/241906 ? DD/ 06 ? TD/TT: 04/13/241906 ? Report Clerk: ? Procedure Note Jorge Luis, Image - 04/13/[address] [place] [address] [address] Scan Report Signed Patient: Crissy Hicks#: [id number] : 1975Acct:[id number] Age/Sex: 48 / FADM Date: 04/13/24 Loc: HO.ED Attending Dr: Ordering Physician: Thuy Duffy DO Date of Service: 04/13/24 Procedure(s): CT angio head neck STROKE Accession Number(s): [id number] cc: Dory Ray MD; Thuy Duffy DO Report Number: [id number]: Total DLP = 1542.00 mGy-cm CLINICAL HISTORY: aphasia CT angiography head and neck with contrast and CT venogram of the head. 3D Postprocessing. Comparison: CR/SR - NECK SOFT TISSUE [id number] - 09/08/18 23:26 EDT Findings: Evaluation is [...] in OV> 04/13/241906 DD/ 06 TD/TT: 04/13/241906 Report Clerk: [facility] External Provider IMG CT PROCEDURES Final Result * (ABNORMAL) Urinalysis, Complete, with Reflex to Culture (04/13/2024 6:20 PM EST) Color Urine Yellow [facility] Appearance Urine Clear [facility] PH 7.0 5.0 - 9.0 [facility] Glucose Urine UA Negative Negative mg/dL [facility] Urine Blood Large (3+)(A) Negative [facility] Specific [place] - Urine 1.015 1.005 - 1.025 [facility] Urine Protein Negative Neg-Trace mg/dL [facility] Urine Ketones Negative Negative mg/dL [facility] Nitrite Urine Negative Negative [facility] Leukocyte Esterase Urine Trace(A) Negative [facility] RBC Urine >20(A) 0 - 2 /HPF [facility] Urine WBC 0-5 0 - 5 /HPF [facility] Urine Squamous Epithelial Cell 0-2 0 - 2 /HPF [facility] Urine Bacteria None Seen None Seen [facility] Hyaline Casts, Urine 0-2 0 - 2 /LPF [facility] 04/13/2024 6:20 PM EST 04/13/2024 6:23 PM EST Narrative [facility] - 04/13/2024 6:45 PM EST [id number], Clean Catch Generic External Data Provider LAB URINE ORDERAB LES Final Result [facility] [address] [place] [phone] * Drug Monitoring, Panel 1, Screen, Urine (04/13/2024 6:20 PM EST) Opiate Screen Urine Not Detected Not Detect [facility] Comment:Opiate cut-off is 30 0 ng/mL.Positive results are unconfirmed and should not be used fornon-medical purposes. Barbiturates, Urine Not Detected Not Detect [facility] Comment:Barbiturate cut-off is 200 ng/mL.Positive results are unconfirmed and should not be used fornon-medical purposes. Phencyclidine Screen Urine Not Detected Not Detect [facility] Comment:Phencyclidine cut-of f is 25 ng/mL.Positive results are unconfirmed and should not be used fornon-medical purposes. Amphetamine Screen Urine Not Detected Not Detect [facility] Comment:Amphetamine cut-off is 1000 ng/mL.Positive results are unconfirmed and should not be used fornon-medical purposes. Benzodiazepines Screen Urine Not Detected Not Detect [facility] Comment:Benzodiazepine cut-o ff is 200 ng/mL.Positive results are unconfirmed and should not be used fornon-medical purposes. Cocaine Screen Urine Not Detected Not Detect [facility] Comment:Cocaine cut-off is 3 00 ng/mL.Positive results are unconfirmed and should not be used fornon-medical purposes. Cannabinoid Screen Urine Not Detected Not Detect [facility] Comment:Cannabinoid cut-off is 50 ng/mL.Positive results are unconfirmed and should not be used fornon-medical purposes. Methadone Screen, Urine Not Detected Not Detect ng/mL [facility] Comment:Methadone cut-off is 300 ng/mL.Positive results are unconfirmed and should not be used fornon-medical purposes. FENTANYL URINE Not Detected Not Detect [facility] Comment:Fentanyl cut-off is 1 ng/mL.Positive results are unconfirmed and should not be used fornon-medical purposes. Oxycodone Urine Screen Not Detected Not Detect ng/mL [facility] Comment:Oxycodone cut-off is 100 ng/mL.Positive results are unconfirmed and should not be used fornon-medical purposes. Buprenorphine Screen Not Detected Not Detect ng/mL [facility] Comment:Buprenorphine cut-of f is 5 ng/mL.Positive results are unconfirmed and should not be used fornon-medical purposes. 04/13/2024 6:20 PM EST 04/13/2024 6:23 PM EST Generic External Data Provider LAB URINE ORDERAB LES Final Result Performing Organization Address [facility] Phone Number [facility] [address] [place] [phone] * High Sensitivity Troponin I (04/12/2024 10:00 AM EST) TROPONIN I HIGH SENSITIVITY <2.7 <3.5 - 17.0 ng/L [facility] Comment:The [place] high sens itivity Troponin-I results should beused in conjunction with other diagnostic information suchas ECG, clinical observations and information, and patientsymptoms to aid in the diagnosis of VT. 04/12/2024 10:0 0 AM EST 04/12/2024 10:04 AM EST Generic External Data Provider LAB BLOOD ORDERAB LES Final Result Performing Organization Address [facility] Number [facility] [address] [place] [phone] * SARS-CoV-2 RNA, Influenza A/B, and RSV RNA, Ql NAAT (04/12/2024 10:00 AM EST) Pathologist [facility] Influenza A PCR NEGATIVE Negative [facility] Influenza B PCR NEGATIVE Negative [facility] Resp Syncy Virus RNA Qual PCR NEGATIVE Negative [facility] SARS COV2 PCR NEGATIVE Negative [facility] Comment:All test results mus t [...] use by authorized laboratories.Testing performed on the [employer] GeneXpert utilizingreal-time RT-PCR.All SARS CoV2 and positive influenza A/B results arereported to [facility]. 04/12/2024 10:0 0 AM EST 04/12/2024 10:04 AM EST us Generic External Data Provider LAB MICROBIOLOGY - GENERAL ORDERABLES Final Result [facility] [address] [place] [address] [phone] * (ABNORMAL) CBC auto differential (04/12/2024 10:00 AM EST) White Blood Count 8.3 4.8 - 10.8 X10*3/uL [facility] Red Blood Count 3.82(L) 4.20 - 5.50 X10*6/uL [facility] Hemoglobin 12.1 12.0 - 16.0 g/dl [facility] Hematocrit 35.4(L) 37.0 - 47.0 % [facility] Mean Corpuscular Volume 92.7 80.0 - 98.0 fL [facility] Mean Corpuscular Hemoglobin 31.7 27.0 - 33.0 pg [facility] Mean Corpuscular HGB Conc 34.2 31.0 - 35.0 g/dl [facility] Red Cell Distribution Width 13.8 11.0 - 16.0 % [facility] Platelet Count 273 160 - 400 X10*3/uL [facility] Mean Platelet Volume 9.2(L) 9.4 - 12.3 fL [facility] Neutrophils Percent Auto 59.7 45 - 73 % [facility] Imm Gran Pct Auto 0.5(H) 0.0 - 0.4 % [facility] Lymphocytes Percent Auto 31.5 20 - 40 % [facility] Monocytes Percent Auto 6.6 2 - 11 % [facility] Eosinophils Percent Auto 1.2 0 - 4 % [facility] Basophils Percent Auto 0.5 0 - 2 % [facility] NRBC Pct Auto 0.0 0.0 - 0.2 /100WBC [facility] Neutrophils Absolute Auto 4.9 2.0 - 8.3 x10*3/uL [facility] Imm Gran Abs Auto 0.04(H) 0.00 - 0.03 X10*3/uL [facility] Lymphocytes Absolute Auto 2.6 1.2 - 4.9 X10*3/uL [facility] Monocytes Absolute Auto 0.6 0.1 - 1.2 X10*3/uL [facility] Eosinophils Absolute Auto 0.1 0.0 - 0.4 X10*3/uL [facility] Basophils Absolute Auto 0.0 0.0 - 0.2 X10*3/uL [facility] NRBC Abs Auto 0.000 0.0 - 0.012 X10*3/uL [facility] 04/12/2024 10:0 0 AM EST 04/12/2024 10:04 AM EST us Generic External Data Provider LAB BLOOD ORDERAB LES Final Result Performing Organization Address City/State/[facility] Co de Phone Number [facility] [address] [place] [address] [phone] * XR Chest 2 Views (04/12/2024 10:00 AM EST) Anatomical Region Laterality Modality Chest Radiographic Haw[place] ging 04/12/2024 10:0 0 AM EST Narrative 04/12/2024 10:17 AM EST ? [facility] ?[address] ?[place] [address] ?XRay Report ? Signed ? Patient: Kurt,Marlene ?MR#: [id number] ?? [id number] ? : 1975 ?Acct:[id number] ? Age/Sex: 48 / F ?ADM Date: 01/09/25 ? Loc: HO.ED ? Attending Dr: ? Ordering Physician: Thuy Duffy DO ?? Date of Service: 04/12/24 ?? Procedure(s): XR chest 2V ?? Accession Number(s): [id number] ? cc: Dory Ray MD; Thuy Duffy [...] DD/ 1000 ? TD/TT: 04/12/24 1005 ? Report Clerk: ? Procedure Note Jorge Lius, Rosemary - 04/12/[address] [address] XRay Report Signed Patient: Crissy Hicks#: [id number] : 1975Acct:[id number] Age/Sex: 48 / FADM Date: 04/12/24 Loc: HO.ED Attending Dr: Ordering Physician: Thuy Duffy DO Date of Service: 04/12/24 Procedure(s): XR chest 2V Accession Number(s): [id number] cc: Dory Ray MD; Thuy Duffy DO [...] 04/12/24 1011 DD/ 1000 TD/TT: 04/12/24 1005 Report Clerk: [facility] External Provider IMG XR PROCEDURES Final Result * (ABNORMAL) Prothrombin Time-INR (04/12/2024 10:00 AM EST) Prothrombin Time 10.4(L) 10.9 - 12.4 SEC [facility] INTERNATIONAL NORM RATIO 0.9 0.9 - 1.1 [facility] Comment:INTERNATIONAL NORMAL IZED RATIO (INR) [...] ORDERAB LES Final Result Performing Organization Address [facility] Co de Phone Number [facility] [address] [place] [phone] * Magnesium (04/12/2024 10:00 AM EST) Magnesium 2.0 1.6 - 2.6 mg/dL [facility] 04/12/2024 10:0 0 AM EST 04/12/2024 10:04 AM EST Generic External Data Provider LAB BLOOD ORDERAB LES Final Result Performing Organization Address [facility] Co de Phone Number [facility] [address] [place] [phone] * Hepatic Function Panel (04/12/2024 10:00 AM EST) Bilirubin, Total 0.1 0.0 - 1.0 mg/dL [facility] Bilirubin, Direct <0.2 0.0 - 0.5 mg/dL [facility] Aspartate Amino Transferase 16 5 - 31 U/L [facility] Alanine Aminotransferase 14 0 - 31 U/L [facility] Total Protein 7.3 6.5 - 8.0 g/dL [facility] Albumin Level 4.0 3.5 - 5.0 g/dL [facility] Alkaline Phosphatase 49 39 - 117 U/L [facility] 04/12/2024 10:0 0 AM EST 04/12/2024 10:04 AM EST us Generic External Data Provider LAB BLOOD ORDERAB LES Final Result Performing Organization Address City/State/[facility] Co de Phone Number [facility] [address] [place] [phone] * (ABNORMAL) Basic Metabolic Panel (04/12/2024 10:00 AM EST) Pathologist [facility] Sodium 140 135 - 145 mmol/L [facility] Potassium 3.9 3.3 - 5.1 mmol/L [facility] Chloride 106 96 - 108 mmol/L [facility] Carbon Dioxide 28 22 - 29 mmol/L [facility] Anion Gap 10(L) 12 - 20 [facility] Urea Nitrogen (BUN) 9 9 - 16 mg/dL [facility] Creatinine, Serum 0.70 0.5 - 1.4 mg/dL [facility] Creatinine Clr Calc Pharmacy 97.0 [facility] Comment:Provided height and weight: 172.72 cm,72.2 kg.eGFR (calculated from the MDRD study equation) and eCrCl(calculated from the Cockcroft-Gault equation) are based ondifferent parameters and may not yield comparable results.If eCrCl result is absurd, please check patient'sheight/weight. Estimated Glomerular Filt Rate >60 [facility] Comment:Chronic Kidney Disea se: Estimated GFR < 60 mL/min/1.37w1[place] Kidney Disease: Estimated GFR < 15 mL/min/1.73m2 Glucose 110 60 - 115 mg/dL [facility] Calcium 9.3 8.4 - 10.2 mg/dL [facility] 04/12/2024 10:0 0 AM EST 04/12/2024 10:04 AM EST us Generic External Data Provider LAB BLOOD ORDERAB LES Final Result [facility] [address], [place] [phone] * BI MR Breast w and w/o Contrast Bilateral (04/09/2024 8:56 AM EST) Anatomical Region Laterality Modality Breast Bilateral Magnetic Resonan ce 04/09/2024 8:56 AM EST Narrative 04/09/2024 4:57 PM EST ? [facility] ?[address] ?[place] [address] ? Magnetic Resonance Report ? Signed ? Patient: Marlene Hicks ?MR#: [id number] ?? [id number] ? : 1975 ?Acct:[id number] ? Age/Sex: 48 / F ?ADM Date: 04/09/24 ? Loc: HO.MRI ? Attending Dr: Macho Sarkar MD ? Ordering Physician: Macho Sarkar MD ?? Date of Service: 04/09/24 ?? Procedure(s): MR breast BI wo/w con ?? Accession Number(s): [id number] ? cc: Dory Ray MD; Macho Sarkar [...] DD/ 0856 ? TD/TT: 04/09/24 0915 ? Report Clerk: ? Procedure Note Jorge Luis, Image - 04/09/2024 [place] [address] Magnetic Resonance Report Signed Patient: Crissy Hicks#: [id number] : 1975Acct:[id number] Age/Sex: 48 / FADM Date: 04/09/24 Loc: HO.MRI Attending Dr: Macho Sarkar MD Ordering Physician: Macho Sarkar MD Date of Service: 04/09/24 Procedure(s): MR breast BI wo/w con Accession Number(s): [id number] cc: Dory Ray MD; Macho Sarkar MD [...] by: Saranya Montero DO 04/09/2024 04:54 PM [facility] Dictated By: Saranya Montero DO Signed By: <Electronically signed by Saranya Montero DO in OV> 04/09/24 1654 DD/ 0856 TD/TT: 04/09/24 0915 Report Clerk: [facility] External Provider IMG MRI PROCEDURES Final Result * HPV mRNA E6/E7 w/Reflex to HPV Genotypes 16, 18/45 (07/19/2023 9:21 AM EDT) HPV nRNA E6/E7 Not Detected Not Detected [facility] Comment:Methodology: Transcr iption-Mediated AmplificationThis assay detects E6/E7 viral messenger RNA (mRNA) from 14high-risk HPV types (16,18,31,33,35,39,45,51,52,56,58,59,66,68).Cervical sources are required for HPV testing.If a vaginal source from a patient who has had atotal hysterectomy with removal of cervix wassubmitted, please contact the testing laboratoryfor alternative testing options.For additional information, please refer tohttp://[employer]/faq/KWH281p8(This link if provided for information/educational purposes only.)THIS TEST WAS PERFORMED AT:[facility] [place] [phone] WONG MD HPV mRNA E6/E7 TNP [facility] HPV 16 RNA TNP [facility] HPV 18/45 RNA [facility] 07/19/2023 9:21 AM EDT 07/20/2023 9:05 AM EDT us Generic External Data Provider LAB CYTOLOGY NEFTALI RABJANAK Final Result [facility] [address] [place] [phone] [phone] * (ABNORMAL) Lipid Panel, Standard (06/16/2023 10:01 AM EDT) Triglycerides 107 <150 mg/dL [facility] Comment:Desirable Triglyceri de: less than 150 mg/dLBorderline High Triglyceride 150-199 mg/dLHigh Triglyceride: 200-499 mg/dLVery High Triglyceride: greater than or equal to 5OO mg/dL Cholesterol 191 <200 mg/dL [facility] Comment:Desirable Cholestero l: less than 200 mg/dLBorderline High Cholesterol: 200-239 mg/dLHigh Cholesterol: greater than 239 mg/dL LDL Cholesterol Calculated 137(H) <100 mg/dL [facility] Comment:Desirable LDL: less than 100 mg/dLNear Optimal/Above Optimal LDL: 110- 129 mg/dLBorderline High LDL: 130-159 mg/dLHigh LDL: 160-189 mg/dLVery High LDL: greater than or equal to 190 mg/dL HDL Cholesterol 33(L) >40 mg/dL [facility] Comment:Desirable HDL: great er than 40 mg/dL Note: This HDL assay may give artificially low results in patients with liver disease. Blood Venous blood specimen / Unknown 06/16/2023 10:01 AM EDT 06/16/2023 11:27 AM EDT us LindyNichole Wen MD LAB BLOOD ORDERABLES Final Result [facility] [address] [place] [address] [phone] * Pap Smear (02/21/2023 2:25 PM EST) 02/21/2023 2:25 PM EST 02/22/2023 10:30 AM EST Narrative [facility] - 03/07/2023 8:53 PM EST ----- ------- Name: Marlene Hicks ? Age/Sex: 47/F ? : 1975 Unit#: [id number] ?? Attend Dr: Macho Sarkar MD ?Re02/21/23 ?Status: DEP REF ? Location: HO.LNP ?Disch: ? ----- ------- SPEC : [id number] ?RECD: 02/22/23-0 ? STATUS: ??SOUT ? REQ NUM: [id number] ? TREVON: 02/21/23-0397 ? SUBM DR: Macho Sarkar MD ? ENTERED: ??02/22/23-1217 ?SP TYPE: Pap Smr ?OTHR DR: Dory [...] 66, 68) ?? HPV testing performed by [facility], [place], [place]. ??See reference laboratory ?? portion of the EMR for entire report. ?Clinical Information LMP: Postmenopausal Previous PAP test: Unknown date/findings Other history: Abnormal uterine and vaginal bleeding. ? Material Received ?? ThinPrep-Cervical Copies To: ?? Dory Ray MD ?? [address] ?? [place] [address] ?? [phone] ?? Macho Sarkar MD ?? [address] [facility] ?? [place] [address] ?? [phone] ----- ------- Signed (signature on file) Abbie Saunders MD 03/07/232052 ? ----- ------- ? END OF REPORT ? us Generic External Data Provider LAB CYTOLOGY NEFTALI ROLLINS Final Result [facility] [address] [place] [address] [phone] * Cologuard?? colon cancer screening (12/27/2022 9:47 AM EDT) Cologuard Result Negative Negative 01/07/20 5:43 PM EDT [employer] [facility] (CLIA #:[id number]) Comment: NEGATIVE TEST RESULT. A negative Cologuard [...] cancer. ??Following a negative Cologuard result, the [place] Cancer Society and U.S. Multi-Society Task Force screening guidelines recommend a Cologuard re-screening interval of 3 years. References: [place] [employer] Society Guideline for Colorectal Cancer Screening: https://www.cancer.org/cancer/kmbal-agzfti-yzgena/kjvimcnuh-tjacdisiu-sokrqwj/ac s-rec ommendations.html.; Yossi DK, Katja TELLEZ, Mona LugoK, Colorectal Cancer Screening: Recommendations for Physicians and Patients from the U.S. Multi-Society Task Force on Colorectal Cancer Screening , Am J Gastroenterology 2017; 112:9342-0112. TEST DESCRIPTION: Composite algorithmic analysis of stool [...] (Anum Adan al, N Engl J Med 2014;370(14):2244-4596.) Cologuard may produce a false negative or false positive result (no colorectal cancer or precancerous polyp present at colonoscopy follow up). A negative Cologuard test result does not guarantee the absence of CRC or advanced adenoma (pre-cancer). The current Cologuard screening interval is every 3 years. ([place] Cancer Society and U.S. Multi-Society Task Force). Cologuard performance data in a 10,000 patient pivotal study using colonoscopy as the reference method can be accessed at the following location: www.[employer].com/results. Additional description of the Cologuard test process, warnings and precautions can be found at www.cologuard.com. Stool specimen (specimen) 12/27/2022 9:47 AM EDT 12/29/2022 7:44 PM EDT Dory Wen MD LAB MOLECULAR DIAGNOS TICS ORDERABLES Final Result [employer] [facility] (CLIA #:[id number]) [place] [address], from Last 3 Months or Most Recently Relevant to Health Maintenance Insurance [facility] C[place] * Guarantor: Marlene Hicks Account Type Relation to Patient Date of Phone Billing Address Personal/Family Self [address] [place] [address] * Guarantor: Marlene Hicks Account Type Relation to Patient Date of Phone Billing Address Personal/Family Self [address] [place] [address] Care Teams Insurance Application Investigator Relationship Specialty Start Date End Date Dory Ray MD [address] [place] [phone] PCP - General Family Medicine 01/03/19 Jeane Lemons It Senior Software Engineer JavaAntenna Design Engineer 11/09/23
--- OUTSIDE RECORDS SUMMARY | 2024-06-26 08:41 | XMS_ITS | Encounter Summary ---
Author Organization [employer] Address [address] [facility] 7t [place] [address] Care Team Providers Care Inspector Heating And Refrigeration Name Role Phone Dory Ray MD Primary Care Provide r Encounter Details Date Type Department Care Team ([facility] st Contact Info) Description 06/15/2024 Population Health Risk Score [facility] (C3) Department [address] [facility] [address] [place] [phone] Provider, Population Health Generic Social History Tobacco Use Types Packs/Day Years [...] Description 07/10/2024 11:00 AM EDT Office Visit [facility] [address] [place] [phone] 08/15/2024 9:00 AM EDT Office Visit [address] [address] Dory Ray MD [address] [place] [phone] documented as of this encounter Goals Goal [...] documented as of this encounter Care Teams Inspector Heating And Refrigeration Relationship Specialty Start Date End Date Dory Ray MD [address] [place] [phone] PCP - General Family Medicine 01/03/19 Jeane Lemons Luncheonette ManagerWeb Art Director 11/09/23 documented as of this encounter
--- OUTSIDE RECORDS SUMMARY | 2024-06-26 08:41 | XMS_ITS | Encounter Summary ---
Author Organization [employer] Address [address] [facility] [facility] [address] 7[address] [place] [address] Care Team Providers Care Aviation Warfare Systems Operator Name Role Phone Dory Ray MD Primary Care Provide r Reason for Visit * Reason Comments Med Refill Encounter Details Date Type Department Care Team ([facility] st Contact Info) Description 01/17/2023 Refill [facility] [address] [place], [place] [phone] Dory Ray MD [address] [place] [address] Migraine without status migrainosus, not intractable, unspecified [...] Description 07/10/2024 11:00 AM EDT Office Visit [facility] [address] [place] [address] 08/15/2024 9:00 AM EDT Office Visit [address] [address] Dory Ray MD [address] [place] [phone] documented as of this encounter Visit Diagnoses Diagnosis Migraine without status migrainosus, not intractable, unspecified migraine type Chronic right-sided low back pain with right-sided sciatica documented in this encounter Additional Health Concerns Assessment Noted Time PHQ-9 Depression Total Score: 24 023 9:07 AM EDT documented as of this encounter Care Teams Aviation Warfare Systems Operator Relationship Specialty Start Date End Date Dory Ray MD [address] [place] [phone] PCP - General Family Medicine 01/03/19 Jeane Lemons Board AttendantHebrew Professor 11/09/23 documented as of this encounter
--- OUTSIDE RECORDS SUMMARY | 2024-06-26 08:41 | XMS_ITS | Encounter Summary ---
Author Organization [employer] Address [address] [address] [address] 7t [place] [address] Care Team Providers Care Insecticide Supervisor Name Role Phone Dory Ray MD Primary Care Provide r Reason for Visit * Reason Onset Date Comments antibiotic 12/09/2022 Encounter Details Date Type Department Care Team ([facility] st Contact Info) Description 12/09/2022 Telephone [facility] [address] [place], [place] [phone] Dashawn Garcia, DDS [address], [place] [phone] antibiotic Social History Tobacco Use Types Packs/Day [...] after 6 on 12/09 to speak to traffic control signaler and nothing was sent to pharmacy traffic control signaler side either. Can something be sent to the pharmacy. She states he is in more pain than she was in prior to having tooth extraction done . * Telephone Encounter - Magalie Mango - 12/09/2022 3:56 PM EDT Patient had [...] she can call back and speak to traffic control signaler Or go to the emergency room. Patient understood DR documented in this encounter Plan of Treatment Upcoming Encounters Date Type Department Care Team (Late st Contact Info) Description 07/10/2024 11:00 AM EDT Office Visit [facility] [address] [place] [phone] 08/15/2024 9:00 AM EDT Office Visit [facility] [address] [place] [address] Dory Ray MD [address] [place] [address] documented as of this encounter Visit Diagnoses Not on filedocumented in this encounter Additional Health Concerns Assessment Noted Time PHQ-9 Depression Total Score: 21 023 9:24 AM EDT documented as of this encounter Care Teams Insecticide Supervisor Relationship Specialty Start Date End Date Dory Ray MD [address] [place] [phone] PCP - General Family Medicine 01/03/19 Jeane Lemons Animal Cruelty Investigation SupervisorVisual Merchandising Manager 11/09/23 documented as of this encounter
--- OUTSIDE RECORDS SUMMARY | 2024-06-26 08:41 | XMS_ITS | Encounter Summary ---
Author Organization [employer] Address [address] [facility] [address] 7t [place] [address] Care Team Providers Care Keying Machine Operator Name Role Phone Dory Ray MD Primary Care Provide r Reason for Visit * Reason Comments Med Refill Encounter Details Date Type Department Care Team ([facility] st Contact Info) Description 06/12/2024 Refill [facility] [address] [place] [address] Dory Ray MD [address] [place] [address] Essential hypertension Social History Tobacco Use Types [...] Description 07/10/2024 11:00 AM EDT Office Visit [facility] [address] [place] [address] 08/15/2024 9:00 AM EDT Office Visit [facility] [address] [place] [address] Dory Ray MD [address] [place] [address] documented as of this encounter Goals Goal [...] documented as of this encounter Care Teams Keying Machine Operator Relationship Specialty Start Date End Date Dory Ray MD [address] [place] [address] PCP - General Family Medicine 01/03/19 Jeane Lemons [employer] Combination TeacherCreel Cleaner 11/09/23 documented as of this encounter
--- OUTSIDE RECORDS SUMMARY | 2024-06-26 08:42 | XMS_ITS | Encounter Summary ---
Author Organization [employer] Address [address] [facility] [address] 7[address] [place] [address] Care Team Providers Care Outsole Splicer Name Role Phone Dory Ray MD Primary Care Provide r Encounter Details Date Type Department Care Team (Late st Contact Info) Description 01/12/2023 Abstract [facility] [address] [place] [address] Dory Ray MD [address] [place] [address] Social History Tobacco Use Types Packs/Day Years [...] Description 07/10/2024 11:00 AM EDT Office Visit [facility] [address] [place] [address] 08/15/2024 9:00 AM EDT Office Visit [facility] [address] [place] [address] Dory Ray MD [address] [place] [address] documented as of this encounter Visit Diagnoses Not on filedocumented in this encounter Additional Health Concerns Assessment Noted Time PHQ-9 Depression Total Score: 24 023 9:07 AM EDT documented as of this encounter Care Teams Outsole Splicer Relationship Specialty Start Date End Date Dory Ray MD [address] [place] [address] PCP - General Family Medicine 01/03/19 Jeane Lemons Valve Seater OperatorSavings Teller 11/09/23 documented as of this encounter
--- OUTSIDE RECORDS SUMMARY | 2024-06-26 08:42 | XMS_ITS | Encounter Summary ---
Author Organization [employer] Address [address] [facility] [address] [place] [address] Care Team Providers Care Insulation Worker Name Role Phone Dory Ray MD Primary Care Provide r Reason for Visit * Reason Comments Med Refill Encounter Details Date Type Department Care Team ([facility] st Contact Info) Description 12/29/2022 Refill [facility] [address] [place] [address] Sunshine James, DO [address] [place] [address] Strain of neck muscle, initial encounter; Neck [...] Description 07/10/2024 11:00 AM EDT Office Visit [facility] [address] [place] [phone] 08/15/2024 9:00 AM EDT Office Visit [address] [address] Dory Ray MD [address] [place] [address] documented as of this encounter Visit Diagnoses Diagnosis Strain of neck muscle, initial encounter Neck pain Cervicalgia documented in this encounter Additional Health Concerns Assessment Noted Time PHQ-9 Depression Total Score: 24 023 9:07 AM EDT documented as of this encounter Care Teams Insulation Worker Relationship Specialty Start Date End Date Dory Ray MD [address] [place] [address] PCP - General Family Medicine 01/03/19 Jeane Lemons Auto Parts Delivery DriverSupervisor Modern Languages 11/09/23 documented as of this encounter
--- OUTSIDE RECORDS SUMMARY | 2024-06-26 08:42 | XMS_ITS | Encounter Summary ---
Author Organization [employer] Address [address] [facility] 7t [place] [address] Care Team Providers Care Inspector Subassemblies Name Role Phone Dory Ray MD Primary Care Provide r Reason for Visit * Reason Comments Med Refill Encounter Details Date Type Department Care Team (Late Contact Info) Description 11/26/2022 Refill [facility] [address] [place] [address] [phone] Name, MD Soy [address] [place] [phone] Migraine without status migrainosus, not intractable, unspecified [...] Description 07/10/2024 11:00 AM EDT Office Visit [facility] [address] [place] [phone] 08/15/2024 9:00 AM EDT Office Visit [facility] [address] [place] [address] Dory Ray MD [address] [place] [address] documented as of this encounter Visit Diagnoses Diagnosis Migraine without status migrainosus, not intractable, unspecified migraine type documented in this encounter Additional Health Concerns Assessment Noted Time PHQ-9 Depression Total Score: 21 023 9:24 AM EDT documented as of this encounter Care Teams Inspector Subassemblies Relationship Specialty Start Date End Date Dory Ray MD [address] [place] [address] PCP - General Family Medicine 01/03/19 Jeane Lemons Camera Control OperatorDifferential Tester 11/09/23 documented as of this encounter
--- OUTSIDE RECORDS SUMMARY | 2024-06-26 08:42 | XMS_ITS | Encounter Summary ---
Author Organization [employer] Address [address] [facility] [address] 7t [place] [address] Care Team Providers Care Small Battery Plate Assembler Name Role Phone Dory Ray MD Primary Care Provide r Encounter Details Date Type Department Care Team (Late st Contact Info) Description 01/12/2023 Abstract [facility] MEDICINE [address] [place] [address] Dory Ray MD [address] [place] [address] Social History Tobacco Use Types Packs/Day Years [...] Description 07/10/2024 11:00 AM EDT Office Visit [facility] [address] [place] [address] 08/15/2024 9:00 AM EDT Office Visit [facility] [address] [place] [address] Dory Ray MD [address] [place] [address] documented as of this encounter Visit Diagnoses Not on filedocumented in this encounter Additional Health Concerns Assessment Noted Time PHQ-9 Depression Total Score: 24 023 9:07 AM EDT documented as of this encounter Care Teams Small Battery Plate Assembler Relationship Specialty Start Date End Date Dory Ray MD [address] [place] [phone] PCP - General Family Medicine 01/03/19 Jeane Lemons Wallpaper Hanger HelperChannel Business Manager 11/09/23 documented as of this encounter
== END 2024-06-26 09:17 | disposition home or self-care (01) ==
LOC: HO.HWS 08:16
PROVIDERS: PCP Internal Medicine; Visit Provider Obstetrics & Gynecology
DX: N93.9 Abnormal uterine and vaginal bleeding, unspecified (principal); N83.299 Other ovarian cyst, unspecified side; R31.29 Other microscopic hematuria; R10.2 Pelvic and perineal pain
CPT/HCPCS: 99213

== ENCOUNTER 2024-06-27 11:29 | Outpatient (REF) | payer MEDICAID, SELFPAY ==
--- OUTSIDE RECORDS SUMMARY | 2024-06-27 14:01 | XMS_ITS | Encounter Summary ---
Author Organization [employer] Address [address] [facility] [address] 7t [place] [address] Care Team Providers Care Cushion Installer Name Role Phone Dory Ray MD Primary Care Provide r Reason for Visit * Reason Onset Date Comments Durable Medical Equipment 03/21/2024 Encounter Details Date Type Department Care Team ([facility] st Contact Info) Description 03/21/2024 Telephone [facility] MED[facility]INE [address] [place] [address] Dory Ray MD [address] [place] [address] Durable Medical Equipment Social History Tobacco Use [...] of the following? None of the above;Lead [place] or Pipes;Pests such as bugs, ants, or [...] requesting DME for Wipes. Contact pt at [phone] documented in this encounter Plan of Treatment Upcoming Encounters Date Type Department Care Team (Late st Contact Info) Description 07/10/2024 11:00 AM EDT Office Visit [facility] MED[facility]INE [address] [place] [address] 08/15/2024 9:00 AM EDT Office Visit [facility] [address] [place] [address] Dory Ray MD [address] [place] [address] documented as of this encounter Goals Goal [...] documented as of this encounter Care Teams Cushion Installer Relationship Specialty Start Date End Date Dory Ray MD [address] [place] [address] PCP - General Family Medicine 01/03/19 Jeane Lemons Town ManagerHelpdesk Manager 11/09/23 documented as of this encounter
--- OUTSIDE RECORDS SUMMARY | 2024-06-27 14:01 | XMS_ITS | Encounter Summary ---
Author Organization [employer] Address [address] [facility] 7t [place] [address] Care Team Providers Care Environmental Project Manager Name Role Phone Dory Ray MD Primary Care Provide r Reason for Visit * Reason Comments Med Refill Encounter Details Date Type Department Care Team (Late st Contact Info) Description 06/22/2022 Refill [facility] [address] [place] [phone] Name, MD Soy [address] [place] [phone] Recurrent major depressive episodes, moderate (CMS/HCC); Migraine [...] 07/10/2024 11:00 AM EDT Office Visit [facility] [address] [place] [address] [phone] 08/15/2024 9:00 AM EDT Office Visit [facility] [address] [place] [address] [phone] Dory Ray MD 230 [place] [address] documented as of this encounter Visit Diagnoses Diagnosis Recurrent major depressive episodes, moderate (CMS/HCC) Major depressive disorder, recurrent episode, moderate Migraine without status migrainosus, not intractable, unspecified migraine type documented in this encounter Care Teams Environmental Project Manager Relationship Specialty Start Date End Date Dory Ray MD [address] [place] [address] PCP - General Family Medicine 01/03/19 Jeane Lemons Steam And Power SupervisorWood Carving Machine Operator 11/09/23 documented as of this encounter
--- OUTSIDE RECORDS SUMMARY | 2024-06-27 14:01 | XMS_ITS | Encounter Summary ---
Author Organization [employer] Address [address] 7t [place] [address] Care Team Providers Care Director Of Application Development Name Role Phone Dory Ray MD Primary Care Provide r Encounter Details Date Type Department Care Team ([facility] st Contact Info) Description 06/26/2024 Orders Only GENERIC EXTERNAL DATA DEPARTMENT Provider, Generic External Data Social History Tobacco Use Types Packs/Day Years [...] Description 07/10/2024 11:00 AM EDT Office Visit [address] [address] 08/15/2024 9:00 AM EDT Office Visit [facility] MEDICINE [address] [place] [address] Dory Ray MD [address] [place] [address] documented as of this encounter Goals Goal Patient Goal Type Associated Problems Recent Progress Patient-Stated? Author Smoking cessation General No change(2023 2:25 PM EDT) No Kiah Cisneros, MichaelD Note: Maintain current progress, smoke 8 cigarettes per day or less. documented as of this encounter Procedures Procedure Name Priority Date/Time Associated Diagnosis Comments SYPHILIS SCREEN Routine 06/26/2024 9:38 AM EDT HEPATITIS C ANTIBODY Routine 06/26/2024 9:38 AM EDT TSH W/REFLEX TO FT4 Routine 06/26/2024 9 :38 AM EDT HEPATITIS B SURFACE ANTIGEN, EIA Routine 06/26/2024 9:38 AM EDT HIV 1/2 ANTIGEN/ANTIBODY, FOURTH GENERATION W/RFL Routine 06/26/2024 9:38 AM EDT CBC Routine 06/26/2024 9:38 AM EDT HCG, TOTAL, QN Routine 06/26/2024 9:38 AM EDT LH Routine 06/26/2024 9:38 AM EDT FSH Routine 06/26/2024 9:38 AM EDT documented in this encounter Results * LH (06/26/2024 9:38 AM EDT) Lutenizing Hormone 27.5 mIU/mL [facility] Comment:Reference Range Foll icular Phase 1.9-12.5 Mid-Cycle Peak 8.7-76.3 Luteal Phase 0.5-16.9 Postmenopausal 10.0-54.7THIS TEST WAS PERFORMED AT:[email or web address] [address] [id number] WONG MD 06/26/2024 9:38 AM EDT 06/26/2024 9:38 AM EDT us Generic External Data Provider LAB BLOOD ORDERAB LES Final Result [facility] [address] [place] [address] [phone] * FSH (06/26/2024 9:38 AM EDT) Follicle Stimulating Hormone 58.1 mIU/mL [facility] Comment:Reference Range Foll icular Phase 2.5-10.2 Mid-cycle Peak 3.1-17.7 Luteal Phase 1.5- 9.1 Postmenopausal 23.0-116.3THIS TEST WAS PERFORMED AT:[email or web address] [address] [id number] WONG MD 06/26/2024 9:38 AM EDT 06/26/2024 9:38 AM EDT us Generic External Data Provider LAB BLOOD ORDERAB LES Final Result Performing Organization Address City/[facility]/ZIP Co de Phone Number [facility] [address] [place] [phone] * Hepatitis B surface antigen, EIA (06/26/2024 9:38 AM EDT) Hepatitis B Surface Ag Negative Negative [facility] 06/26/2024 9:38 AM EDT 06/26/2024 9:38 AM EDT Generic External Data Provider LAB BLOOD ORDERAB LES Final Result Performing Organization Address [facility] Phone Number [facility] [address] [place] [phone] * HIV-1/2 Antigen and Antibodies, Fourth Generation, with Reflexes (06/26/2024 9:38 AM EDT) Pathologist [facility] HIV AB/AG Nonreactive Nonreactive [facility] Comment:HIV-1 p24 Ag and/or HIV-1/HIV-2 Ab not detected.A test result that is nonreactive does not exclude thepossibility of exposure to or infection with HIV-1 and/orHIV-2. Nonreactive results in this assay for individualswith prior exposure to HIV-1 and/or HIV-2 may be due toantigen and antibody levels that are below the limit ofdetection of this assay.The [employer] HIV Ag/Ab Combo assay result andsupplemental assay results should be interpreted inconjunction with the patient's clinical presentation,history and other laboratory results. If the results areinconsistent with clinical evidence, additional testing issuggested to confirm the result. 06/26/2024 9:38 AM EDT 06/26/2024 9:38 AM EDT Generic External Data Provider LAB BLOOD ORDERAB LES Final Result Performing Organization Address [facility]/[place] de Phone Number [facility] [address] [place] [phone] * Hepatitis C Ab (06/26/2024 9:38 AM EDT) Hepatitis C Antibody Nonreactive Nonreactive [facility] Comment:Antibodies to HCV no t detected; does not exclude early acuteHCV infection. 06/26/2024 9:38 AM EDT 06/26/2024 9:38 AM EDT Generic External Data Provider LAB BLOOD ORDERAB LES Final Result Performing Organization Address [facility] Phone Number [facility] [address] [place] [phone] * Syphilis Screen (06/26/2024 9:38 AM EDT) Syphilis Screen Nonreactive Nonreactive [facility] 06/26/2024 9:38 AM EDT 06/26/2024 9:38 AM EDT Generic External Data Provider LAB BLOOD ORDERAB LES Final Result Performing Organization Address [facility] de Phone Number [facility] [address] [place] [phone] * hCG, Total, Quantitative (06/26/2024 9:38 AM EDT) HCG Quantitative 6 mIU/mL [facility] Comment:Weeks post LMP Appro ximate hCG(Last Menstrual Period) Range (mIU/ml)3 - 4 weeks 9 - 1304 - 5 weeks 75 - 2,6005 - 6 weeks 850 - 20,8006 - 7 weeks 4000 - 100,2007 - 12 weeks 11,500 - 289,76914 - 16 weeks 18,300 - 137,14819 - 29 weeks (2nd trimester) 1,400 - 53,64846 - 41 weeks (3rd trimester) 940 - 60,000The [place]right B- hCG assay is used for the early detection ofpregnancy; it cannot be used to diagnose any conditionunrelated to . If a B-hCG level is not supportedby the clinical evidence, results should be confirmed by analternative method (qualitative urine hCG, for example). 06/26/2024 9:38 AM EDT 06/26/2024 9:38 AM EDT Generic External Data Provider LAB BLOOD ORDERAB LES Final Result Performing Organization Address [facility] Co de Phone Number [facility] [address] [place] [phone] * TSH with Reflex to Free T4 (06/26/2024 9:38 AM EDT) Pathologist [facility] TSH reflex Free T4 2.29 0.32 - 4.0 uIU/mL [facility] 06/26/2024 9:38 AM EDT 06/26/2024 9:38 AM EDT Generic External Data Provider LAB BLOOD ORDERAB LES Final Result Performing Organization Address [facility] Co de Phone Number [facility] [address] [place] [phone] * CBC (06/26/2024 9:38 AM EDT) White Blood Count 6.5 4.8 - 10.8 X10*3/uL [facility] Red Blood Count 4.30 4.20 - 5.50 X10*6/uL [facility] Hemoglobin 13.4 12.0 - 16.0 g/dl [facility] Hematocrit 39.2 37.0 - 47.0 % [facility] Mean Corpuscular Volume 91.2 80.0 - 98.0 fL [facility] Mean Corpuscular Hemoglobin 31.2 27.0 - 33.0 pg [facility] Mean Corpuscular HGB Conc 34.2 31.0 - 35.0 g/dl [facility] Red Cell Distribution Width 13.2 11.0 - 16.0 % [facility] Platelet Count 306 160 - 400 X10*3/uL [facility] Mean Platelet Volume 9.8 9.4 - 12.3 fL [facility] NRBC Pct Auto 0.0 0.0 - 0.2 /100WBC [facility] NRBC Abs Auto 0.000 0.0 - 0.012 X10*3/uL [facility] 06/26/2024 9:38 AM EDT 06/26/2024 9:38 AM EDT us Generic External Data Provider LAB BLOOD ORDERAB LES Final Result [facility] [address] [place] [phone] [phone] documented in this encounter Visit Diagnoses Not on filedocumented in this encounter Additional Health Concerns Assessment Noted Time PHQ-9 Depression Total Score: 24 024 9:01 AM EDT documented as of this encounter Care Teams Director Of Application Development Relationship Specialty Start Date End Date Dory Ray MD [address] [place] [phone] PCP - General Family Medicine 01/03/19 Jeane Lemons Senior Office Support Assistant SosaSuperintendent Sanitation 11/09/23 documented as of this encounter
--- OUTSIDE RECORDS SUMMARY | 2024-06-27 14:01 | XMS_ITS | Encounter Summary ---
Author Organization [employer] Address [address] 7t [place] [address] Care Team Providers Care Papeterie Table Assembler Name Role Phone Dory Ray MD Primary Care Provide r Encounter Details Date Type Department Care Team (Late Contact Info) Description 04/07/2022 Orders Only [facility] MEDICINE [address] [place] [phone] Rohini Middleton MD [address] [place] [address] [phone] Pain (Primary Dx) Social History Tobacco Use [...] Description 07/10/2024 11:00 AM EDT Office Visit [facility] MEDICINE [address] [place] [address] 08/15/2024 9:00 AM EDT Office Visit [facility] MED[facility]INE [address] [place] [address] Dory Ray MD 230 [place], [place] [phone] documented as of this encounter Visit Diagnoses Diagnosis Pain- Primary Generalized pain documented in this encounter Care Teams Papeterie Table Assembler Relationship Specialty Start Date End Date Dory Ray MD [address] [place] [address] [phone] PCP - General Family Medicine 01/03/19 Jeane Lemons Senior Private Client AdvisorEquities Analyst 11/09/23 documented as of this encounter
--- OUTSIDE RECORDS SUMMARY | 2024-06-27 14:01 | XMS_ITS | Encounter Summary ---
Author Organization [employer] Address [address] 7t [place] [address] Care Team Providers Care Body Repairer Name Role Phone Dory Ray MD Primary Care Provide r Reason for Visit * Reason Comments Med Refill Encounter Details Date Type Department Care Team ([facility] st Contact Info) Description 04/10/2024 Refill [facility] MEDICINE 230 [place], [place] [phone] Dory Ray MD [address] [place] [address] Chronic right-sided low back pain with right-sided [...] others, in a hotel, in a senior living, living outside on the street, on a beach, in a car, or in a park 08/19/[address] you li ve. Do you have problems with any of the following? None of the above;Lead [place] or Pipes;Pests such as bugs, ants, or [...] Description 07/10/2024 11:00 AM EDT Office Visit [address] [address] 08/15/2024 9:00 AM EDT Office Visit [facility] MEDICINE [address] [place] [address] Dory Ray MD [address] [place] [address] documented as of this encounter Goals Goal [...] documented as of this encounter Care Teams Body Repairer Relationship Specialty Start Date End Date Dory Ray MD [address] [place] [address] PCP - General Family Medicine 01/03/19 Jeane Lemons Urgent Care PhysicianOffice Professional 11/09/23 documented as of this encounter
--- OUTSIDE RECORDS SUMMARY | 2024-06-27 14:01 | XMS_ITS | Encounter Summary ---
Author Organization [employer] Address [address] 7t [place] [address] Care Team Providers Care Floorworker Lasting Name Role Phone Dory Ray MD Primary Care Provide r Reason for Visit * Reason Comments Med Refill Encounter Details Date Type Department Care Team ([facility] st Contact Info) Description 03/07/2022 Refill [facility]INE [address] [place] [address] Emilia De La Torre FNP [address] [place] [address] Fibromyalgia (Primary Dx) Social History Tobacco Use [...] . Pt stated will be traveling to [place] on 03/10/22. Last seen on 01/20/22. PCP Dr. Garcia documented in this encounter Plan of Treatment Upcoming Encounters Date Type Department Care Team (Late st Contact Info) Description 07/10/2024 11:00 AM EDT Office Visit [address] [address] 08/15/2024 9:00 AM EDT Office Visit [address] [address] Dory Ray MD [address] [place] [address] documented as of this encounter Visit Diagnoses Diagnosis Fibromyalgia- Primary Unspecified myalgia and myositis documented in this encounter Care Teams Floorworker Lasting Relationship Specialty Start Date End Date Dory Ray MD [address] [place] [address] PCP - General Family Medicine 01/03/19 Jeane Lemons Sheet Pile Driver OperatorCharm Filter Operator Helper 11/09/23 documented as of this encounter
--- OUTSIDE RECORDS SUMMARY | 2024-06-27 14:01 | XMS_ITS | Encounter Summary ---
Author Organization [employer] Address [address] 7t [place] [address] Care Team Providers Care Mother Repairer Name Role Phone Dory Ray MD Primary Care Provide r Reason for Visit * Reason Comments Med Refill Encounter Details Date Type Department Care Team ([facility] st Contact Info) Description 03/19/2024 Refill [facility] MEDICINE [address] [place] [address] Dory Ray MD [address] [place] [address] Essential hypertension Social History Tobacco Use Types [...] of the following? None of the above;Lead [place] or Pipes;Pests such as bugs, ants, or [...] Description 07/10/2024 11:00 AM EDT Office Visit [facility] MEDICINE [address] [place] [address] 08/15/2024 9:00 AM EDT Office Visit [facility] MED[facility]INE [address] [place] [address] Dory Ray MD [address] [place] [address] documented as of this encounter Goals Goal [...] documented as of this encounter Care Teams Mother Repairer Relationship Specialty Start Date End Date Dory Ray MD [address] [place] [address] PCP - General Family Medicine 01/03/19 Jeane Lemons Golf Ball Cover TreaterTree Trimmer Helper 11/09/23 documented as of this encounter
--- OUTSIDE RECORDS SUMMARY | 2024-06-27 14:01 | XMS_ITS | Encounter Summary ---
Author Organization [employer] Address [address] 7[address] [place] [address] Care Team Providers Care Roller Stainer Name Role Phone Dory Ray MD Primary Care Provide r Reason for Visit * Reason Onset Date Comments requesting call back 03/24/2022 Encounter Details Date Type Department Care Team ([facility] Contact Info) Description 03/24/2022 Telephone [facility] MEDICINE [address] [place] [address] Dory Ray MD [address] [place] [address] requesting call back Social History Tobacco Use [...] pt returning call Please contact pt at [phone] documented in this encounter Plan of Treatment Upcoming Encounters Date Type Department Care Team ([facility] st Contact Info) Description 07/10/2024 11:00 AM EDT Office Visit [address] [address] 08/15/2024 9:00 AM EDT Office Visit [address] [address] Dory Ray MD [address] [place] [address] documented as of this encounter Visit Diagnoses Not on filedocumented in this encounter Care Teams Roller Stainer Relationship Specialty Start Date End Date Dory Ray MD [address] [place] [address] [phone] PCP - General Family Medicine 01/03/19 Jeane Lemons Marble Chip Terrazzo WorkerSpooling Machine Operator 11/09/23 documented as of this encounter
--- OUTSIDE RECORDS SUMMARY | 2024-06-27 14:02 | XMS_ITS | Encounter Summary ---
Author Organization [employer] Address [address] [facility] [address] 7t [place] [address] Care Team Providers Care Santa'S Helper Name Role Phone Dory Ray MD Primary Care Provide r Encounter Details Date Type Department Care Team (Late st Contact Info) Description 01/12/2023 Abstract [facility]INE [address] [place] [address] Dory Ray MD [address] [place] [address] Social History Tobacco Use Types Packs/Day Years [...] Description 07/10/2024 11:00 AM EDT Office Visit [facility] [address] [place] [address] 08/15/2024 9:00 AM EDT Office Visit [facility] [address] [place] [address] Dory Ray MD [address] [place] [address] documented as of this encounter Visit Diagnoses Not on filedocumented in this encounter Additional Health Concerns Assessment Noted Time PHQ-9 Depression Total Score: 24 023 9:07 AM EDT documented as of this encounter Care Teams Santa'S Helper Relationship Specialty Start Date End Date Dory Ray MD [address] [place] [address] PCP - General Family Medicine 01/03/19 Jeane Lemons Graphic Design SpecialistRug Renovator 11/09/23 documented as of this encounter
--- OUTSIDE RECORDS SUMMARY | 2024-06-27 14:02 | XMS_ITS | Encounter Summary ---
Author Organization [employer] Address [address] [facility] [address] [facility] [address] [address] 7t [place] [address] Care Team Providers Care Pipe Recovery Specialist Name Role Phone Dory Ray MD Primary Care Provide r Reason for Visit * Reason Onset Date Comments Referral 06/22/2024 Encounter Details Date Type Department Care Team ([facility] st Contact Info) Description 06/22/[address] [facility] MEDICINE [address] [place] [address] Dory Ray MD [address] [place] [address] Referral Social History Tobacco Use Types Packs/Day [...] 06/22/2024 9:14 AM EDT TC placed to [facility] pulmonology, they confirm they have active referral for pt.'s LDCT. They will reach out to pt. Today to schedule. * Telephone Encounter - Jas Lozano - 06/22/2024 9:08 AM EDT Tc from pt stating that she wax supposed to get a call from a referral for a Advanced Practice Provider but never received a call to make a Apt. Calibrator Barometers dis not see any referral regarding Pulmonology. Contact pt at [phone] documented in this encounter Plan of Treatment Upcoming Encounters Date Type Department Care Team (Late st Contact Info) Description 07/10/2024 11:00 AM EDT Office Visit [facility] MEDICINE [address] [place] [address] 08/15/2024 9:00 AM EDT Office Visit [facility] MEDICINE [address] [place] [address] Dory Ray MD [address] [place] [address] documented as of this encounter Goals Goal [...] documented as of this encounter Care Teams Pipe Recovery Specialist Relationship Specialty Start Date End Date Dory Ray MD [address] [place] [address] PCP - General Family Medicine 01/03/19 Jeane Lemons Wholesale Account ExecutiveSenior Licensing Manager 11/09/23 documented as of this encounter
--- OUTSIDE RECORDS SUMMARY | 2024-06-27 14:02 | XMS_ITS | Encounter Summary ---
Author Organization [employer] Address [address] [facility] 7t h Floor [place] [id number] Care Team Providers Care Applications Chemist Name Role Phone Dory Ray MD Primary Care Provide r Reason for Visit * Reason Comments Med Refill Encounter Details Date Type Department Care Team ([facility] st Contact Info) Description 08/23/2023 Refill [facility] [address] [place] [address] Dashawn Garcia DDS [address] [place] [address] Social History Tobacco Use Types Packs/Day Years [...] with others, in a hotel, in a intermediate, living outside on the street, on a beach, in a car, or in a park 08/19/[address] you li ve. Do you have problems with any of the following? None of the above;Lead [place] or Pipes;Pests such as bugs, ants, or [...] EDT Office Visit [facility] [address] [place] [address] 08/15/2024 9:00 AM EDT Office Visit [facility] [address] [place] [address] Dory Ray MD 230 [place] [address] documented as of this encounter Goals Goal [...] documented as of this encounter Care Teams Applications Chemist Relationship Specialty Start Date End Date Dory Ray MD [address] [place] [address] PCP - General Family Medicine 01/03/19 Jeane Lemons Licensed Loan Officer AssistantShank Burnisher 11/09/23 documented as of this encounter
--- OUTSIDE RECORDS SUMMARY | 2024-06-27 14:02 | XMS_ITS | Encounter Summary ---
Author Organization [employer] Address [address] [facility] [address] 7t [place] [address] Care Team Providers Care Cocoa Bean Roaster Name Role Phone Dory Ray MD Primary Care Provide r Reason for Visit * Reason Onset Date Comments Med Refill 06/05/2024 Lorazepam from psychiatrist 06/05/2024 Encounter Details Date Type Department Care Team ([facility] st Contact Info) Description 06/05/2024 Telephone [facility] [address] [place] [address] Dory Ray MD 230 [place] [address] Med Refill; Lorazepam from psychiatrist Social History [...] 0.5 MG tablet To be sent to: [facility]/pharmacy #[id number] [place], [place] - [address] [place] [address] documented in this encounter Plan of Treatment Upcoming Encounters Date Type Department Care Team ([facility] Contact Info) Description 07/10/2024 11:00 AM EDT Office Visit [facility] [address] [place] [address] 08/15/2024 9:00 AM EDT Office Visit [facility] [address] [place] [address] Dory Ray MD [address] [place] [address] documented as of this encounter Goals Goal [...] documented as of this encounter Care Teams Cocoa Bean Roaster Relationship Specialty Start Date End Date Dory Ray MD [address] [place] [address] PCP - General Family Medicine 01/03/19 Jeane Lemons Quilting Machine OperatorBest Worker 11/09/23 documented as of this encounter
--- OUTSIDE RECORDS SUMMARY | 2024-06-27 14:02 | XMS_ITS | Encounter Summary ---
Author Organization [employer] Address [address] [facility] [address] 7t [place] [address] Care Team Providers Care Lap Machine Operator Name Role Phone Dory Ray MD Primary Care Provide r Reason for Visit * Reason Comments Med Refill Encounter Details Date Type Department Care Team ([facility] st Contact Info) Description 05/20/2023 Refill [facility] 230 [place], [place] [phone] Dory Ray MD 230 [place], [place] [phone] Chronic pain syndrome Social History Tobacco Use [...] [facility] [address] [place] [address] 08/15/2024 9:00 AM EDT Office Visit [address] [address] Dory Ray MD [address] [place] [address] documented as of this encounter Goals Goal [...] documented as of this encounter Care Teams Lap Machine Operator Relationship Specialty Start Date End Date Dory Ray MD [address] [place] [address] PCP - General Family Medicine 01/03/19 Jeane Lemons Car EscortWearing Apparel Folder 11/09/23 documented as of this encounter
--- OUTSIDE RECORDS SUMMARY | 2024-06-27 14:02 | XMS_ITS | Encounter Summary ---
Author Organization [employer] Address [address] [facility] [address] 7t [place] [address] Care Team Providers Care Commissioned Security Officer Name Role Phone Dory Ray MD Primary Care Provide r Reason for Visit * Reason Comments Med Refill Encounter Details Date Type Department Care Team ([facility] st Contact Info) Description 06/12/2024 Refill [facility] [address] [place] [address] Doyr Ray MD 230 [place] [address] Essential hypertension Social History Tobacco Use Types [...] 07/10/2024 11:00 AM EDT Office Visit [facility] [address] [place] [phone] 08/15/2024 9:00 AM EDT Office Visit [facility] [address] [place] [address] Dory Ray MD [address] [place] [address] documented as of this encounter Goals Goal [...] documented as of this encounter Care Teams Commissioned Security Officer Relationship Specialty Start Date End Date Dory Ray MD [address] [place] [address] PCP - General Family Medicine 01/03/19 Jeane Lemons Supervisor Dog License OfficerGuest Relations Executive 11/09/23 documented as of this encounter
--- OUTSIDE RECORDS SUMMARY | 2024-06-27 14:02 | XMS_ITS | Encounter Summary ---
Author Organization [employer] Address [address] [facility] [address] 7t [place] [address] Care Team Providers Care Bridge Maintenance Worker Name Role Phone Dory Ray MD Primary Care Provide r Reason for Visit * Reason Onset Date Comments No Show 05/30/2024 Encounter Details Date Type Department Care Team ([facility] st Contact Info) Description 05/30/2024 Telephone [facility] [address] [place] [address] Dory Ray MD 230 [place] [address] No Show Social History Tobacco Use Types [...] 11:00 AM EDT Office Visit [facility] [address] [place] [address] 08/15/2024 9:00 AM EDT Office Visit [facility] [address] [place] [address] Dory Ray MD [address] [place] [address] documented as of this encounter Goals Goal [...] documented as of this encounter Care Teams Bridge Maintenance Worker Relationship Specialty Start Date End Date Dory Ray MD [address] [place] [address] PCP - General Family Medicine 01/03/19 Jeane Lemons Board Liner OperatorElevator Troubleshooter 11/09/23 documented as of this encounter
--- OUTSIDE RECORDS SUMMARY | 2024-06-27 14:02 | XMS_ITS | Encounter Summary ---
Author Organization [employer] Address [address] [facility] [address] 7t [place] [address] Care Team Providers Care Art Manager Name Role Phone Dory Ray MD Primary Care Provide r Reason for Visit * Reason Comments Med Refill Encounter Details Date Type Department Care Team ([facility] st Contact Info) Description 02/22/2024 Refill [facility] & PEDS [address] [place], [place] [phone] Dory Ray MD 230 [place] [address] Chronic pain syndrome; Anxiety Social History Tobacco [...] of the following? None of the above;Lead [place] or Pipes;Pests such as bugs, ants, or [...] Description 07/10/2024 11:00 AM EDT Office Visit [facility] [address] [place] [address] 08/15/2024 9:00 AM EDT Office Visit [address] [address] Dory Ray MD [address] [place] [address] documented as of this encounter Goals Goal [...] documented as of this encounter Care Teams Art Manager Relationship Specialty Start Date End Date Dory Ray MD [address] [place] [address] PCP - General Family Medicine 01/03/19 Jeane Lemons Riffler TenderCathode Maker 11/09/23 documented as of this encounter
--- OUTSIDE RECORDS SUMMARY | 2024-06-27 14:02 | XMS_ITS | Encounter Summary ---
Author Organization [employer] Address 75 [facility] 7t [place] [address] Care Team Providers Care Client Project Coordinator Name Role Phone Dory Ray MD Primary Care Provide r Reason for Visit * Reason Comments Med Refill Encounter Details Date Type Department Care Team ([facility] Contact Info) Description 10/06/2022 Refill [facility] MED & PEDS [address] [place] [address] Dory Ray MD 230 [place] [address] Chronic pain syndrome Social History Tobacco Use [...] Upcoming Encounters Date Type Department Care Team ([facility] Contact Info) Description 07/10/2024 11:00 AM EDT Office Visit [facility] MED[facility]INE [address] [place] [address] [phone] 08/15/2024 9:00 AM EDT Office Visit [facility] [address] [place] [address] [phone] Dory Ray MD [address] [place], [place] [phone] documented as of this encounter Visit Diagnoses Diagnosis Chronic pain syndrome documented in this encounter Additional Health Concerns Assessment Noted Time PHQ-9 Depression Total Score: 21 023 9:24 AM EDT documented as of this encounter Care Teams Client Project Coordinator Relationship Specialty Start Date End Date Dory Ray MD [address] [place] [address] PCP - General Family Medicine 01/03/19 Jeane Lemons Convenience Recycle Center TechSales Development Director 11/09/23 documented as of this encounter
--- OUTSIDE RECORDS SUMMARY | 2024-06-27 14:02 | XMS_ITS | Encounter Summary ---
Author Organization [employer] Address [address] [facility] [address] 7t [place] [address] Care Team Providers Care Spiral Weaver Name Role Phone Dory Ray MD Primary Care Provide r Encounter Details Date Type Department Care Team (Late st Contact Info) Description 01/12/2023 Abstract [facility] [address] [place] [address] Dory Ray MD [address] [place] [address] Social History Tobacco Use Types Packs/Day Years [...] Description 07/10/2024 11:00 AM EDT Office Visit [facility] [address] [place] [address] 08/15/2024 9:00 AM EDT Office Visit [facility] [address] [place] [address] Dory Ray MD [address] [place] [address] documented as of this encounter Visit Diagnoses Not on filedocumented in this encounter Additional Health Concerns Assessment Noted Time PHQ-9 Depression Total Score: 24 023 9:07 AM EDT documented as of this encounter Care Teams Spiral Weaver Relationship Specialty Start Date End Date Dory Ray MD [address] [place] [address] PCP - General Family Medicine 01/03/19 Jeane Lemons ScowmanBusiness Development Sales Executive 11/09/23 documented as of this encounter
--- OUTSIDE RECORDS SUMMARY | 2024-06-27 14:02 | XMS_ITS | Encounter Summary ---
Author Organization [employer] Address [address] [facility] [address] 7t [place] [address] Care Team Providers Care Apprentice Carpenter Name Role Phone Dory Ray MD Primary Care Provide r Reason for Visit * Reason Onset Date Comments Chart prep 05/28/2024 Encounter Details Date Type Department Care Team ([facility] st Contact Info) Description 05/28/2024 Telephone [facility] MED[facility]INE [address] [place] [address] Dory Ray MD 230 [place] [address] Chart prep Social History Tobacco Use Types [...] Visit [facility] [address] [place] [phone] 08/15/2024 9:00 AM EDT Office Visit [facility] [address] [place] [address] Dory Ray MD [address] [place] [address] documented as of this encounter Goals Goal [...] documented as of this encounter Care Teams Apprentice Carpenter Relationship Specialty Start Date End Date Dory Ray MD 230 [place] [address] PCP - General Family Medicine 01/03/19 Jeane Lemons Taker OffSteel Pickler 11/09/23 documented as of this encounter
--- OUTSIDE RECORDS SUMMARY | 2024-06-27 14:02 | XMS_ITS | Encounter Summary ---
Author Organization [employer] Address [address] [facility] 7t [place] [address] Care Team Providers Care Sales And Merchandising Representative Name Role Phone Dory Ray MD Primary Care Provide r Encounter Details Date Type Department Care Team ([facility] st Contact Info) Description 06/15/2024 Population Health Risk Score [facility] (C[facility]) Department [address] [facility] [address] [place] [phone] Provider, Population Health Generic Social History Tobacco [...] Description 07/10/2024 11:00 AM EDT Office Visit [facility] MED[facility] [address] [place] [phone] 08/15/2024 9:00 AM EDT Office Visit [address] [address] Dory Ray MD [address] [place] [address] documented as of this encounter Goals Goal [...] as of this encounter Care Teams Sales And Merchandising Representative Relationship Specialty Start Date End Date Dory Ray MD [address] [place] [address] PCP - General Family Medicine 01/03/19 Jeane Lemons Varnisher ApprenticeManager Channel 11/09/23 documented as of this encounter
--- OUTSIDE RECORDS SUMMARY | 2024-06-27 14:02 | XMS_ITS | Encounter Summary ---
Author Organization [employer] Address [address] [facility] 7t [place] [address] Care Team Providers Care Factory Expert Name Role Phone Dory Ray MD Primary Care Provide r Reason for Visit * Reason Comments Med Refill Encounter Details Date Type Department Care Team (Late st Contact Info) Description 08/05/2022 Refill [facility] [address] [place] [address] [phone] Dory Ray MD [address] [place] [address] Anxiety Social History Tobacco Use Types Packs/Day [...] AM EDT Office Visit [facility] [address] [place] [address] [phone] 08/15/2024 9:00 AM EDT Office Visit [facility] [address] [place] [address] Dory Ray MD [address] [place] [address] [phone] documented as of this encounter Visit Diagnoses Diagnosis Anxiety Anxiety state, unspecified documented in this encounter Care Teams Factory Expert Relationship Specialty Start Date End Date Dory Ray MD 230 [place], [place] [phone] PCP - General Family Medicine 01/03/19 Jeane Lemons Reaming Machine OperatorKettle Cook 11/09/23 documented as of this encounter
--- OUTSIDE RECORDS SUMMARY | 2024-06-27 14:02 | XMS_ITS | Encounter Summary ---
Author Organization [employer] Address [address] [facility] 7t [place] [address] Care Team Providers Care Product Marketing Analyst Name Role Phone Dory Ray MD Primary Care Provide r Reason for Visit * Reason Comments Med Refill Encounter Details Date Type Department Care Team (Late Contact Info) Description 11/26/2022 Refill [facility] [address] [place] [address] [phone] Name, MD Soy [address] [place] [phone] Migraine without status migrainosus, not intractable, unspecified [...] Description 07/10/2024 11:00 AM EDT Office Visit [facility] [address] [place] [address] [phone] 08/15/2024 9:00 AM EDT Office Visit [facility] [address] [place] [address] Dory Ray MD [address] [place] [address] documented as of this encounter Visit Diagnoses Diagnosis Migraine without status migrainosus, not intractable, unspecified migraine type documented in this encounter Additional Health Concerns Assessment Noted Time PHQ-9 Depression Total Score: 21 023 9:24 AM EDT documented as of this encounter Care Teams Product Marketing Analyst Relationship Specialty Start Date End Date Dory Ray MD 230 [place] [address] PCP - General Family Medicine 01/03/19 Jeane Lemons Welding Machine Operator ThermitManager Mechanical Maintenance 11/09/23 documented as of this encounter
--- OUTSIDE RECORDS SUMMARY | 2024-06-27 14:02 | XMS_ITS | Clinical Summary ---
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 See munitions worker for urine/pill count. Assessment & Plan (01/10/2024 [...] Marlene agrees to go in person to [facility] to follow up on status of [...] Encounters Date Type Department Care Team Description 06/26/2024 Orders Only GENERIC EXTERNAL DATA DEPARTMENT Provider, Generic External Data 06/22/2024 Telephone [facility] [address] [place] [address] Dory Ray MD Referral 06/15/2024 Population Health Risk Score Community [facility] (C[facility]) Department [address] [phone] Provider, Population Health Generic 06/15/2024 Refill [facility] [address] [place] [address] Dory Ray MD Chronic right-sided low back pain with right-sided sciatica 06/12/2024 Refill [facility] [address] [place] [address] Dory Ray MD Essential hypertension 06/05/2024 Telephone [facility] [address] [place] [address] Dory Ray MD Med Refill; Lorazepam from psychiatrist 05/30/2024 Telephone [facility] [address] [place] [address] Dory Ray MD No Show 05/28/2024 Telephone [facility] [address] [place] [address] Dory Ray MD Chart prep 05/22/2024 Telephone [facility] [address] [place], [place] [phone] Dory Ray MD Rescheduled chronic pain group appt 05/17/2024 Refill [facility] [address] [place] [address] Dory Ray MD Chronic right-sided low back pain with right-sided sciatica 05/17/2024 Refill [facility] [address] [place] [address] Dory Ray MD Chronic right-sided low back pain with right-sided sciatica 05/16/[address] [address] Jeaneth Regalado, DARWIN LDCT referral 05/16/2024 Patient Outreach [address] [address] Dory Ray MD Pre-visit Planning (SDOH screening negative and tobacco screening positive) 05/15/2024 11:00 AM EST Office Visit [address] [address] Emilia De La Torre, [place] Bulging lumbar disc (Primary Dx); Long-term current use of opiate analgesic; Fibromyalgia 05/15/2024 9:30 AM EST Office Visit [address] [address] Dory Ray MD Adverse effect of diazepam, initial encounter (Primary Dx); Essential hypertension; Screening for lung cancer 05/15/[address] [address] Dory Ray MD Chronic midline thoracic back pain; Neck pain 05/15/2024 Travel 05/14/2024 Orders Only GENERIC EXTERNAL DATA DEPARTMENT Provider, Generic External Data 05/14/[address] [address] Dustin Hickey [place] Chart Prep 05/03/[address] [address] Dory Ray MD Essential hypertension 04/17/[address] [address] Dustin Hickey [place] Durable Medical Equipment 04/17/[address] [address] Dory Ray MD ER Follow-up 04/16/2024 Refill [facility] [address] [place] [address] Katerine Killian MD Chronic right-sided low back pain with right-sided sciatica 04/16/2024 Refill [facility] [address] [place] [address] Dory Ray MD 04/13/2024 Orders Only GENERIC EXTERNAL DATA DEPARTMENT Provider, Generic External Data 04/12/2024 Orders Only GENERIC EXTERNAL DATA DEPARTMENT Provider, Generic External Data 04/12/2024 Telephone [facility] [address] [place] [address] Dory Ray MD Nurse Triage 04/11/2024 Refill [facility] [address] [place] [address] Dory Ray MD Migraine without status migrainosus, not intractable, unspecified migraine type 04/10/2024 Refill [facility] [address] [place] [address] Dory Ray MD Chronic right-sided low back pain with right-sided sciatica 04/09/2024 Orders Only [facility] External Provider, [facility] 04/08/2024 Refill [facility] [address] [place], [place] [phone] Dory Ray MD Chronic right-sided low back [...] Description 07/10/2024 11:00 AM EDT Office Visit [facility] [address] [place] [phone] 08/15/2024 9:00 AM EDT Office Visit [address] [address] Dory Ray MD [address] [place] [address] Health Maintenance Due Date Last Done Comments CT Colonography 1975 Colonoscopy 1975 Dental Prophylaxis 1975 Dental X-Ray: Full Mouth 1973 FIT 1975 FOBT 1975 Sigmoidoscopy 1975 Family Planning (PISQ) 1988 Hepatitis B Vaccines (3 of 3 - [...] Completed 03/13/2024, , 02/26/2020, Additional history exists HIV Screening Completed 06/26/2024 Hepatitis C Screening Completed 06/26/2024 HIB Vaccines Aged Out No longer eligi [...] Procedure Name Priority Date/Time Associated Diagnosis Comments LH Routine 06/26/2024 9:38 AM EDT FSH Routine 06/26/2024 9:38 AM EDT HEPATITIS B SURFACE ANTIGEN, EIA Routine 06/26/2024 9:38 AM EDT HIV 1/2 ANTIGEN/ANTIBODY, FOURTH GENERATION W/RFL Routine 06/26/2024 9:38 AM EDT HEPATITIS C ANTIBODY Routine 06/26/2024 9:38 AM EDT SYPHILIS SCREEN Routine 06/26/2024 9:38 AM EDT HCG, TOTAL, QN Routine 06/26/2024 9:38 AM EDT TSH W/REFLEX TO FT4 Routine 06/26/2024 9 :38 AM EDT CBC Routine 06/26/2024 9:38 AM EDT POCT MARÍA-14 URINE DRUG SCREEN Routine 05/15/2024 [...] Recently Relevant to Health Maintenance Results * Syphilis Screen (06/26/2024 9:38 AM EDT) Pathologist [facility] Syphilis Screen Nonreactive Nonreactive [facility] 06/26/2024 9:38 AM EDT 06/26/2024 9:38 AM EDT Generic External Data Provider LAB BLOOD ORDERAB LES Final Result Performing Organization Address [facility] Co de Phone Number [facility] [address] [place] [phone] * Hepatitis C Ab (06/26/2024 9:38 AM EDT) [facility] Hepatitis C Antibody Nonreactive Nonreactive [facility] Comment:Antibodies to HCV no t detected; does not exclude early acuteHCV infection. 06/26/2024 9:38 AM EDT 06/26/2024 9:38 AM EDT Generic External Data Provider LAB BLOOD ORDERAB LES Final Result Performing Organization Address [facility] Co de Phone Number [facility] [address] [place] [phone] * TSH with Reflex to Free T4 (06/26/2024 9:38 AM EDT) [facility] TSH reflex Free T4 2.29 0.32 - 4.0 uIU/mL [facility] 06/26/2024 9:38 AM EDT 06/26/2024 9:38 AM EDT Generic External Data Provider LAB BLOOD ORDERAB LES Final Result Performing Organization Address [facility]/ZIP Co de Phone Number [facility] [address] [place] [phone] * Hepatitis B surface antigen, EIA (06/26/2024 9:38 AM EDT) Hepatitis B Surface Ag Negative Negative [facility] 06/26/2024 9:38 AM EDT 06/26/2024 9:38 AM EDT us Generic External Data Provider LAB BLOOD ORDERAB LES Final Result Performing Organization Address [facility] de Phone Number [facility] [address] [place] [phone] * HIV-1/2 Antigen and Antibodies, Fourth Generation, with Reflexes (06/26/2024 9:38 AM EDT) Pathologist [facility] HIV AB/AG Nonreactive Nonreactive [facility] Comment:HIV-1 p24 Ag and/or HIV-1/HIV-2 Ab not detected.A test result that is nonreactive does not exclude thepossibility of exposure to or infection with HIV-1 and/orHIV-2. Nonreactive results in this assay for individualswith prior exposure to HIV-1 and/or HIV-2 may be due toantigen and antibody levels that are below the limit ofdetection of this assay.The [employer] SquaredniAgenda HIV Ag/Ab Combo assay result andsupplemental assay results should be interpreted inconjunction with the patient's clinical presentation,history and other laboratory results. If the results areinconsistent with clinical evidence, additional testing issuggested to confirm the result. 06/26/2024 9:38 AM EDT 06/26/2024 9:38 AM EDT us Generic External Data Provider LAB BLOOD ORDERAB LES Final Result Performing Organization Address [facility] Co de Phone Number [facility] [address] [place] [phone] * CBC (06/26/2024 9:38 AM EDT) White Blood Count 6.5 4.8 - 10.8 X10*3/uL [facility] Red Blood Count 4.30 4.20 - 5.50 X10*6/uL [facility] Hemoglobin 13.4 12.0 - 16.0 g/dl [facility] Hematocrit 39.2 37.0 - 47.0 % [facility] Mean Corpuscular Volume 91.2 80.0 - 98.0 fL [facility] Mean Corpuscular Hemoglobin 31.2 27.0 - 33.0 pg [facility] Mean Corpuscular HGB Conc 34.2 31.0 - 35.0 g/dl [facility] Red Cell Distribution Width 13.2 11.0 - 16.0 % [facility] Platelet Count 306 160 - 400 X10*3/uL [facility] Mean Platelet Volume 9.8 9.4 - 12.3 fL [facility] NRBC Pct Auto 0.0 0.0 - 0.2 /100WBC [facility] NRBC Abs Auto 0.000 0.0 - 0.012 X10*3/uL [facility] 06/26/2024 9:38 AM EDT 06/26/2024 9:38 AM EDT us Generic External Data Provider LAB BLOOD ORDERAB LES Final Result [facility] [address] [place] [phone] * hCG, Total, Quantitative (06/26/2024 9:38 AM EDT) HCG Quantitative 6 mIU/mL [facility] Comment:Weeks post LMP Appro ximate hCG(Last Menstrual Period) Range (mIU/ml)3 - 4 weeks 9 - 1304 - 5 weeks 75 - 2,6005 - 6 weeks 850 - 20,8006 - 7 weeks 4000 - 100,2007 - 12 weeks 11,500 - 289,71393 - 16 weeks 18,300 - 137,01046 - 29 weeks (2nd trimester) 1,400 - 53,44402 - 41 weeks (3rd trimester) 940 - 60,000The Albright B-hCG assay is used for the early detection ofpregnancy; it cannot be used to diagnose any conditionunrelated to . If a B-hCG level is not supportedby the clinical evidence, results should be confirmed by analternative method (qualitative urine hCG, for example). 06/26/2024 9:38 AM EDT 06/26/2024 9:38 AM EDT Generic External Data Provider LAB BLOOD ORDERAB LES Final Result Performing Organization Address [facility]/ZIP Co de Phone Number [facility] [address] [place] [phone] * LH (06/26/2024 9:38 AM EDT) Lutenizing Hormone 27.5 mIU/mL [facility] Comment:Reference Range Foll icular Phase 1.9-12.5 Mid-Cycle Peak 8.7-76.3 Luteal Phase 0.5-16.9 Postmenopausal 10.0-54.7THIS TEST WAS PERFORMED AT:[employer] [place] [phone] WONG MD 06/26/2024 9:38 AM EDT 06/26/2024 9:38 AM EDT Generic External Data Provider LAB BLOOD ORDERAB LES Final Result Performing Organization Address [facility]/ZIP Co de Phone Number [facility] [address] [place] [phone] * FSH (06/26/2024 9:38 AM EDT) Follicle Stimulating Hormone 58.1 mIU/mL [facility] Comment:Reference Range Foll icular Phase 2.5-10.2 Mid-cycle Peak 3.1-17.7 Luteal Phase 1.5- 9.1 Postmenopausal 23.0-116.3THIS TEST WAS PERFORMED AT:[employer] [place] [phone] WONG MD 06/26/2024 9:38 AM EDT 06/26/2024 9:38 AM EDT us Generic External Data Provider LAB BLOOD ORDERAB LES Final Result [facility] [address] [place] [phone] * POCT MARÍA-14 Urine Drug Screen (05/15/2024 2:27 PM EST) Benzodiazepines Screen, Urine Positive Urine Urine specimen obtained by clean catch procedure / Unknown 05/15/2024 2:27 PM EST Narrative Danyell Garrett RN - 05/15/2024 2:27 PM EST .UTOX cup Lot#[id number] Exp. 12/27/25 Internal Pass Control us Emilia SALAZAR POINT OF CARE TEST ENTER/EDIT ORDERABLES Final Result * Hematoxylin and Eosin Stain (05/14/2024 9:56 AM EST) 05/14/2024 9:56 AM EST 05/15/2024 6:10 AM EST Narrative [facility] - 05/17/2024 11:01 AM EST ----- ------- Name: Marlene Hicks ? Age/Sex: 48/F ? : 1975 Unit#: [id number] ?? Attend Dr: Macho Sarkar MD ?Re05/14/24 ?Status: DEP REF ? Location: HO.LNP ?Disch: ? ----- ------- SPEC : [id number] ?RECD: 05/15/24 ? STATUS: ??SOUT ? REQ NUM: [id number] ? TREVON: 05/14/24 ? SUBM DR: Macho [...] examination, multiple pieces in cassette [facility] Copies To: ?? Dory Ray MD ?? [facility] ?? [address] ?? [place] [address] ?? [phone] ?? Macho Sarkar MD ?? [facility] ?? [address] ?? [place] [address] ?? [phone] ----- ------- Signed (signature on file) Galen Booker MD 05/17/241100 ? ----- ------- ? END OF REPORT ? us Generic External Data Provider LAB BLOOD ORDERAB LES Final Result [facility] [address] [place] [address] [phone] * Chlamydia/N. Gonorrhoeae RNA, TMA, Urogenitial (05/14/2024 9:34 AM EST) CT PCR NOT DETECTED Not Detect. [facility] Comment:A not detected test result does [...] psychologicalconsequences. NG PCR NOT DETECTED Not Detect. [facility] Comment:A not detected test result does [...] AM EST 05/14/2024 3:23 PM EST Narrative [facility] - 05/15/2024 5:56 AM EST Vaginal us Generic External Data Provider LAB MICROBIOLOGY - GENERAL ORDERABLES Final Result [facility] [address] [place] [phone] * Culture, Urine, Routine (05/14/2024 9:34 AM EST) Urine Urine specimen obtained by clean catch procedure / Unknown 05/14/2024 9:34 AM EST 05/14/2024 3:23 PM EST Comment:UA Narrative [facility] - 05/16/2024 10:49 AM EST Urine Culture No growth. Specimen Source: Urine clean catch us Generic External Data Provider LAB MICROBIOLOGY - GENERAL ORDERABLES Final Result [facility] [address] [place] [address] [phone] * MR Brain w/o Contrast (04/14/2024 1:23 PM EST) Anatomical Region Laterality Modality Brain Magnetic Resonan ce 04/14/2024 1:23 PM EST Narrative 04/14/2024 1:25 PM EST ? [facility] ?[address] ?[place] [address] ? Magnetic Resonance Report ? Signed ? Patient: Marlene Hicks ?MR#: [id number] ?? [id number] ? : 1975 ?Acct:[id number] ? Age/Sex: 48 / F ?ADM Date: 04/13/24 ? Loc: HO.IMC ?453-1 ? Attending Dr: Rohini STOCKTON ? Ordering Physician: Nader Stringer MD ?? Date of Service: 04/13/24 ?? Procedure(s): MR head/brain wo con ?? Accession Number(s): [id number] ? cc: Dory Ray MD; Nader Stringer MD ? CLINICAL HISTORY: slurred speech ? MR Brain without gadolinium ? Comparison: CT/SR - CT HEAD FOR STROKE - 04/13/24 17:26 EST ?? MR - MRI BRAIN O [id number] - 06/07/06 00:00 EST ? Findings: ?? [...] ?? 04/14/2024 13:23:29 ? Dictated By: ?Irene oCsta MD ? Signed By: ?<Electronically signed by Irene Costa MD in OV> ? 04/14/24 1324 ? DD/ 1323 ? TD/TT: 04/14/24 1323 ? Recreational Resort Manager: ? Procedure Note [place], Image - 04/14/2024 [place] [address] Magnetic Resonance Report Signed Patient: Crissy Hicks#: [id number] : 1975Acct:[id number] Age/Sex: 48 / FADM Date: 04/13/24 Loc: [facility] 453-[address]: Rohini STOCKTON Ordering Physician: Nader Stringer MD Date of Service: 04/13/24 Procedure(s): MR head/brain wo [facility] Accession Number(s): [id number] cc: Dory Ray MD; Nader Stringer MD CLINICAL HISTORY: slurred speech MR Brain without gadolinium Comparison: CT/SR - CT HEAD FOR STROKE - 04/13/24 17:26 EST MR - MRI BRAIN O [id number] - 06/07/06 00:00 EST Findings: No restricted [...] Costa MD in OV> 04/14/24 1324 DD/ 132 TD/TT: 04/14/24 132 Recreational Resort Manager: [facility] External Provider IMG MRI PROCEDURES Edited Result - Final * CTA Head Stroke w/ and w/o Contrast (04/13/2024 7:07 PM EST) Anatomical Region Laterality Modality Computed Tomogra phy 04/13/2024 7:07 PM EST Narrative 04/13/2024 7:08 PM EST ? [facility] ?[address] ?[place] [address] ? CT Scan Report ? Signed ? Patient: Kurt,Marlene ?MR#: [id number] ?? [id number] ? : 1975 ?Acct:[id number] ? Age/Sex: 48 / F ?ADM Date: 04/13/24 ? Loc: HO.ED ? Attending Dr: ? Ordering Physician: Thuy Duffy DO ?? Date of Service: 04/13/24 ?? Procedure(s): CT angio head neck STROKE ?? Accession Number(s): [id number] ? cc: Dory Ray MD; Thuy Duffy DO ? Report Number: ?? [id number]: Total DLP = 1542.00 mGy-cm ? CLINICAL HISTORY: aphasia ? CT angiography head and neck with contrast and CT venogram of the head. 3D ?? Postprocessing. ? Comparison: CR/SR - NECK SOFT TISSUE [id number] - 09/08/18 23:26 EDT ? Findings: ?? [...] MD in OV> ? 04/13/241906 ? DD/ ? TD/TT: 04/13/241906 ? Recreational Resort Manager: ? Procedure Note Jorge Luis, Image - 04/13/[address] [address] [address] Scan Report Signed Patient: Crissy Hicks#: [id number] : 1975Acct:[id number] Age/Sex: 48 / FADM Date: 04/13/24 Loc: HO.ED Attending Dr: Ordering Physician: Thuy Duffy DO Date of Service: 04/13/24 Procedure(s): CT angio head neck STROKE Accession Number(s): [id number] cc: Dory Ray MD; Thuy Duffy DO Report Number: [id number]: Total DLP = 1542.00 mGy-cm CLINICAL HISTORY: aphasia CT angiography head and neck with contrast and CT venogram of the head. 3D Postprocessing. Comparison: CR/SR - NECK SOFT TISSUE [id number] - 09/08/18 23:26 EDT Findings: Evaluation is [...] in OV> 04/13/241906 DD/ 06 TD/TT: 04/13/241906 Recreational Resort Manager: [facility] External Provider IMG CT PROCEDURES Final Result * (ABNORMAL) Urinalysis, Complete, with Reflex to Culture (04/13/2024 6:20 PM EST) Color Urine Yellow [facility] Appearance Urine Clear [facility] PH 7.0 5.0 - 9.0 [facility] Glucose Urine UA Negative Negative mg/dL [facility] Urine Blood Large (3+)(A) Negative [facility] Specific [place] - Urine 1.015 1.005 - 1.025 [facility] Urine Protein Negative Neg-Trace mg/dL [facility] Urine Ketones Negative Negative mg/dL [facility] Nitrite Urine Negative Negative [facility] Leukocyte Esterase Urine Trace(A) Negative [facility] RBC Urine >20(A) 0 - 2 /HPF [facility] Urine WBC 0-5 0 - 5 /HPF [facility] Urine Squamous Epithelial Cell 0-2 0 - 2 /HPF [facility] Urine Bacteria None Seen None Seen [facility] Hyaline Casts, Urine 0-2 0 - 2 /LPF [facility] 04/13/2024 6:20 PM EST 04/13/2024 6:23 PM EST Narrative [facility] - 04/13/2024 6:45 PM EST [id number], Clean Catch us Generic External Data Provider LAB URINE ORDERAB LES Final Result [facility] [address] [place] [phone] * Drug Monitoring, Panel 1, Screen, Urine (04/13/2024 6:20 PM EST) Opiate Screen Urine Not Detected Not Detect [facility] Comment:Opiate cut-off is 30 0 ng/mL.Positive results are unconfirmed and should not be used fornon-medical purposes. Barbiturates, Urine Not Detected Not Detect [facility] Comment:Barbiturate cut-off is 200 ng/mL.Positive results are unconfirmed and should not be used fornon-medical purposes. Phencyclidine Screen Urine Not Detected Not Detect [facility] Comment:Phencyclidine cut-of f is 25 ng/mL.Positive results are unconfirmed and should not be used fornon-medical purposes. Amphetamine Screen Urine Not Detected Not Detect [facility] Comment:Amphetamine cut-off is 1000 ng/mL.Positive results are unconfirmed and should not be used fornon-medical purposes. Benzodiazepines Screen Urine Not Detected Not Detect [facility] Comment:Benzodiazepine cut-o ff is 200 ng/mL.Positive results are unconfirmed and should not be used fornon-medical purposes. Cocaine Screen Urine Not Detected Not Detect [facility] Comment:Cocaine cut-off is 3 00 ng/mL.Positive results are unconfirmed and should not be used fornon-medical purposes. Cannabinoid Screen Urine Not Detected Not Detect [facility] Comment:Cannabinoid cut-off is 50 ng/mL.Positive results are unconfirmed and should not be used fornon-medical purposes. Methadone Screen, Urine Not Detected Not Detect ng/mL [facility] Comment:Methadone cut-off is 300 ng/mL.Positive results are unconfirmed and should not be used fornon-medical purposes. FENTANYL URINE Not Detected Not Detect [facility] Comment:Fentanyl cut-off is 1 ng/mL.Positive results are unconfirmed and should not be used fornon-medical purposes. Oxycodone Urine Screen Not Detected Not Detect ng/mL [facility] Comment:Oxycodone cut-off is 100 ng/mL.Positive results are unconfirmed and should not be used fornon-medical purposes. Buprenorphine Screen Not Detected Not Detect ng/mL [facility] Comment:Buprenorphine cut-of f is 5 ng/mL.Positive results are unconfirmed and should not be used fornon-medical purposes. 04/13/2024 6:20 PM EST 04/13/2024 6:23 PM EST us Generic External Data Provider LAB URINE ORDERAB LES Final Result [facility] [address] [place] [address] [phone] * High Sensitivity Troponin I (04/12/2024 10:00 AM EST) Pathologist [facility] TROPONIN I HIGH SENSITIVITY <2.7 <3.5 - 17.0 ng/L [facility] Comment:The Albright high sens itivity Troponin-I results should beused in conjunction with other diagnostic information suchas ECG, clinical observations and information, and patientsymptoms to aid in the diagnosis of ID. 04/12/2024 10:0 0 AM EST 04/12/2024 10:04 AM EST Generic External Data Provider LAB BLOOD ORDERAB LES Final Result Performing Organization Address [facility]/ZIP Co de Phone Number [facility] [address] [place] [phone] * SARS-CoV-2 RNA, Influenza A/B, and RSV RNA, Ql NAAT (04/12/2024 10:00 AM EST) Influenza A PCR NEGATIVE Negative [facility] Influenza B PCR NEGATIVE Negative [facility] Resp Syncy Virus RNA Qual PCR NEGATIVE Negative [facility] SARS COV2 PCR NEGATIVE Negative [facility] Comment:All test results mus t be [...] use by authorized laboratories.Testing performed on the [employer] GeneXpert utilizingreal-time RT-PCR.All SARS CoV2 and positive influenza A/B results arereported to [facility]. 04/12/2024 10:0 0 AM EST 04/12/2024 10:04 AM EST Generic External Data Provider LAB MICROBIOLOGY - GENERAL ORDERABLES Final Result Performing Organization Address [facility] [facility]/ZIP Co de Phone Number [facility] [address] [place] [phone] * (ABNORMAL) CBC auto differential (04/12/2024 10:00 AM EST) White Blood Count 8.3 4.8 - 10.8 X10*3/uL [facility] Red Blood Count 3.82(L) 4.20 - 5.50 X10*6/uL [facility] Hemoglobin 12.1 12.0 - 16.0 g/dl [facility] Hematocrit 35.4(L) 37.0 - 47.0 % [facility] Mean Corpuscular Volume 92.7 80.0 - 98.0 fL [facility] Mean Corpuscular Hemoglobin 31.7 27.0 - 33.0 pg [facility] Mean Corpuscular HGB Conc 34.2 31.0 - 35.0 g/dl [facility] Red Cell Distribution Width 13.8 11.0 - 16.0 % [facility] Platelet Count 273 160 - 400 X10*3/uL [facility] Mean Platelet Volume 9.2(L) 9.4 - 12.3 fL [facility] Neutrophils Percent Auto 59.7 45 - 73 % [facility] Imm Gran Pct Auto 0.5(H) 0.0 - 0.4 % [facility] Lymphocytes Percent Auto 31.5 20 - 40 % [facility] Monocytes Percent Auto 6.6 2 - 11 % [facility] Eosinophils Percent Auto 1.2 0 - 4 % [facility] Basophils Percent Auto 0.5 0 - 2 % [facility] NRBC Pct Auto 0.0 0.0 - 0.2 /100WBC [facility] Neutrophils Absolute Auto 4.9 2.0 - 8.3 x10*3/uL [facility] Imm Gran Abs Auto 0.04(H) 0.00 - 0.03 X10*3/uL [facility] Lymphocytes Absolute Auto 2.6 1.2 - 4.9 X10*3/uL [facility] Monocytes Absolute Auto 0.6 0.1 - 1.2 X10*3/uL [facility] Eosinophils Absolute Auto 0.1 0.0 - 0.4 X10*3/uL [facility] Basophils Absolute Auto 0.0 0.0 - 0.2 X10*3/uL [facility] NRBC Abs Auto 0.000 0.0 - 0.012 X10*3/uL [facility] 04/12/2024 10:0 0 AM EST 04/12/2024 10:04 AM EST us Generic External Data Provider LAB BLOOD ORDERAB LES Final Result [facility] [address] [place] [address] [phone] * XR Chest 2 Views (04/12/2024 10:00 AM EST) Anatomical Region Laterality Modality Chest Radiographic Haw[place] ging 04/12/2024 10:0 0 AM EST Narrative 04/12/2024 10:17 AM EST ? [facility] ?[address] ?[place] [address] ?XRay Report ? Signed ? Patient: Marlene Hicks ?MR#: [id number] ?? [id number] ? : 1975 ?Acct:[id number] ? Age/Sex: 48 / F ?ADM Date: 04/12/24 ? Loc: HO.ED ? Attending Dr: ? Ordering Physician: Thuy Duffy DO ?? Date of Service: 04/12/24 ?? Procedure(s): XR chest 2V ?? Accession Number(s): [id number] ? cc: Dory Ray MD; Thuy Duffy [...] DD/ 1000 ? TD/TT: 04/12/24 1005 ? Recreational Resort Manager: ? Procedure Note Donotartemioter, Image - 04/12/[address] [address] XRay Report Signed Patient: Crissy Hicks#: [id number] : 1975Acct:[id number] Age/Sex: 48 / FADM Date: 04/12/24 Loc: HO.ED Attending Dr: Ordering Physician: Thuy Duffy DO Date of Service: 04/12/24 Procedure(s): XR chest 2V Accession Number(s): [id number] cc: Dory Ray MD; Thuy Duffy DO [...] 04/12/24 1011 DD/ 1000 TD/TT: 04/12/24 1005 Recreational Resort Manager: [facility] External Provider IMG XR PROCEDURES Final Result * (ABNORMAL) Prothrombin Time-INR (04/12/2024 10:00 AM EST) Prothrombin Time 10.4(L) 10.9 - 12.4 SEC [facility] INTERNATIONAL NORM RATIO 0.9 0.9 - 1.1 [facility] Comment:INTERNATIONAL NORMAL IZED RATIO (INR) [...] ORDERAB LES Final Result Performing Organization Address [facility]/ZIP Co de Phone Number [facility] [address] [place] [phone] * Magnesium (04/12/2024 10:00 AM EST) Magnesium 2.0 1.6 - 2.6 mg/dL [facility] 04/12/2024 10:0 0 AM EST 04/12/2024 10:04 AM EST Generic External Data Provider LAB BLOOD ORDERAB LES Final Result Performing Organization Address [facility] Co de Phone Number [facility] [address] [place] [phone] * Hepatic Function Panel (04/12/2024 10:00 AM EST) Bilirubin, Total 0.1 0.0 - 1.0 mg/dL [facility] Bilirubin, Direct <0.2 0.0 - 0.5 mg/dL [facility] Aspartate Amino Transferase 16 5 - 31 U/L [facility] Alanine Aminotransferase 14 0 - 31 U/L [facility] Total Protein 7.3 6.5 - 8.0 g/dL [facility] Albumin Level 4.0 3.5 - 5.0 g/dL [facility] Alkaline Phosphatase 49 39 - 117 U/L [facility] 04/12/2024 10:0 0 AM EST 04/12/2024 10:04 AM EST us Generic External Data Provider LAB BLOOD ORDERAB LES Final Result Performing Organization Address City/[facility]/ZIP Co de Phone Number [facility] [address] [place] [address] [phone] * (ABNORMAL) Basic Metabolic Panel (04/12/2024 10:00 AM EST) Sodium 140 135 - 145 mmol/L [facility] Potassium 3.9 3.3 - 5.1 mmol/L [facility] Chloride 106 96 - 108 mmol/L [facility] Carbon Dioxide 28 22 - 29 mmol/L [facility] Anion Gap 10(L) 12 - 20 [facility] Urea Nitrogen (BUN) 9 9 - 16 mg/dL [facility] Creatinine, Serum 0.70 0.5 - 1.4 mg/dL [facility] Creatinine Clr Calc Pharmacy 97.0 [facility] Comment:Provided height and weight: 172.72 cm,72.2 kg.eGFR (calculated from the MDRD study equation) and eCrCl(calculated from the Cockcroft-Gault equation) are based ondifferent parameters and may not yield comparable results.If eCrCl result is absurd, please check patient'sheight/weight. Estimated Glomerular Filt Rate >60 [facility] Comment:Chronic Kidney Disea se: Estimated GFR < 60 mL/min/1.74m6Rwuiyf Kidney Disease: Estimated GFR < 15 mL/min/1.73m2 Glucose 110 60 - 115 mg/dL [facility] Calcium 9.3 8.4 - 10.2 mg/dL [facility] 04/12/2024 10:0 0 AM EST 04/12/2024 10:04 AM EST us Generic External Data Provider LAB BLOOD ORDERAB LES Final Result [facility] [address] [place] [address] [phone] * BI MR Breast w and w/o Contrast Bilateral (04/09/2024 8:56 AM EST) Anatomical Region Laterality Modality Breast Bilateral Magnetic Resonan ce 04/09/2024 8:56 AM EST Narrative 04/09/2024 4:57 PM EST ? [facility] ?[address] ?[place] [address] ? Magnetic Resonance Report ? Signed ? Patient: Kurt,Marlene ?MR#: [id number] ?? 7446 ? : 1975 ?Acct:[id number] ? Age/Sex: 48 / F ?ADM Date: 04/09/24 ? Loc: HO.MRI ? Attending Dr: Macho Sarkar MD ? Ordering Physician: Macho Sarkar MD ?? Date of Service: 04/09/24 ?? Procedure(s): MR breast BI wo/w con ?? Accession Number(s): [id number] ? cc: Dory Ray MD; Macho Sarkar [...] by Saranya Montero, DO in OV> ? 04/09/244 ? DD/ 0856 ? TD/TT: 04/09/24 0915 ? Recreational Resort Manager: ? Procedure Note Donotuseinterpreter, Image - 04/09/2024 [place] [address] Magnetic Resonance Report Signed Patient: Crissy Hicks#: [id number] [id number] : 1975Acct:[id number] Age/Sex: 48 / FADM Date: 04/09/24 Loc: HO.MRI Attending Dr: Macho Sarkar MD Ordering Physician: Macho Sarkar MD Date of Service: 04/09/24 Procedure(s): MR breast BI wo/w con Accession Number(s): [id number] cc: Dory Ray MD; Macho Sarkar MD [...] Saranya Montero DO 04/09/2024 04:54 PM EST RP Dictated By: Saranya Montero DO Signed By: <Electronically signed by Saranya Montero DO in OV> 04/09/24 1654 DD/ 0856 TD/TT: 04/09/24 0915 Recreational Resort Manager: [facility] External Provider IMG MRI PROCEDURES Final Result * HPV mRNA E6/E7 w/Reflex to HPV Genotypes 16, 18/45 (07/19/2023 9:21 AM EDT) HPV nRNA E6/E7 Not Detected Not Detected [facility] Comment:Methodology: Transcr iption-Mediated AmplificationThis assay detects E6/E7 viral messenger RNA (mRNA) from 14high-risk HPV types (16,18,31,33,35,39,45,51,52,56,58,59,66,68).Cervical sources are required for HPV testing.If a vaginal source from a patient who has had atotal hysterectomy with removal of cervix wassubmitted, please contact the testing laboratoryfor alternative testing options.For additional information, please refer tohttp://education.cheerapp/faq/WEL831f5(This link if provided for information/educational purposes only.)THIS TEST WAS PERFORMED AT:[employer] [place] [phone] WONG MD HPV mRNA E6/E7 [facility] HPV 16 RNA [facility] HPV 18/45 RNA [facility] 07/19/2023 9:21 AM EDT 07/20/2023 9:05 AM EDT Generic External Data Provider LAB CYTOLOGY NEFTALI ROLLINS Final Result [facility] [address] [place] [phone] [phone] * (ABNORMAL) Lipid Panel, Standard (06/16/2023 10:01 AM EDT) Triglycerides 107 <150 mg/dL [facility] Comment:Desirable Triglyceri de: less than 150 mg/dLBorderline High Triglyceride 150-199 mg/dLHigh Triglyceride: 200-499 mg/dLVery High Triglyceride: greater than or equal to 5OO mg/dL Cholesterol 191 <200 mg/dL [facility] Comment:Desirable Cholestero l: less than 200 mg/dLBorderline High Cholesterol: 200-239 mg/dLHigh Cholesterol: greater than 239 mg/dL LDL Cholesterol Calculated 137(H) <100 mg/dL [facility] Comment:Desirable LDL: less than 100 mg/dLNear Optimal/Above Optimal LDL: 110- 129 mg/dLBorderline High LDL: 130-159 mg/dLHigh LDL: 160-189 mg/dLVery High LDL: greater than or equal to 190 mg/dL HDL Cholesterol 33(L) >40 mg/dL [facility] Comment:Desirable HDL: great er than 40 mg/dL Note: This HDL assay may give artificially low results in patients with liver disease. Blood Venous blood specimen / Unknown 06/16/2023 10:01 AM EDT 06/16/2023 11:27 AM EDT us Dory Wen MD LAB BLOOD ORDERABLES Final Result [facility] [address] [place] [phone] [phone] * Pap Smear (02/21/2023 2:25 PM EST) 02/21/2023 2:25 PM EST 02/22/2023 10:30 AM EST Narrative [facility] - 03/07/2023 8:53 PM EST ----- ------- Name: KurtChiragMarlene ? Age/Sex: 47/F ? : 1975 Unit#: [id number] ?? Attend Dr: Macho Sarkar MD ?Re02/21/23 ?Status: DEP REF ? Location: HO.LNP ?Disch: ? ----- ------- SPEC : [id number] ?RECD: 02/22/23-0 ? STATUS: ??SOUT ? REQ NUM: [id number] ? TREVON: 02/21/23-4087 ? SUBM DR: Macho Sarkar MD ? ENTERED: ??02/22/23-7 ?SP TYPE: Pap Smr ?OTHR DR: Dory [...] 66, 68) ?? HPV testing performed by [employer], [place], [place]. ??See reference laboratory ?? portion of the EMR for entire report. ?Clinical Information LMP: Postmenopausal Previous PAP test: Unknown date/findings Other history: Abnormal uterine and vaginal bleeding. ? Material Received ?? ThinPrep-Cervical Copies To: ?? Dory Ray MD ?? [address] [facility] ?? [place] [address] ?? [phone] ?? Macho Sarkar MD ?? [address] [place] [address] Dr. [facility] ?? [place] [address] ?? [phone] ----- ------- Signed (signature on file) Abbie Saunders MD 03/07/232052 ? ----- ------- ? END OF REPORT ? us Generic External Data Provider LAB CYTOLOGY NEFTALI ROLLINS Final Result Performing Organization Address City/State/[facility] Co de Phone Number [facility] [address] [place] [phone] * Cologuard?? colon cancer screening (12/27/2022 9:47 AM EDT) [facility] Cologuard Result Negative Negative 01/07/20 5:43 PM EDT [facility] (CLIA #:[id number]) Comment: NEGATIVE TEST RESULT. A negative Cologuard [...] cancer. ??Following a negative Cologuard result, the French Cancer Society and U.S. Multi-Society Task Force screening guidelines recommend a Cologuard re-screening interval of 3 years. References: French Cancer Society Guideline for Colorectal Cancer Screening: https://www.cancer.org/cancer/lbhqx-embkkm-mekurx/ccpzwsftq-xcqhwfsck-nctfqze/ac s-rec ommendations.html.; Yossi OWEN, Katja TELLEZ, Mona ARCEO, Colorectal Cancer Screening: Recommendations for Physicians and Patients from the U.S. Multi-Society Task Force on Colorectal Cancer Screening , Am J Gastroenterology 2017; 112:0659-8173. TEST DESCRIPTION: Composite algorithmic analysis of stool [...] screened with both Cologuard and colonoscopy. (Anum Dillon et al, N Engl J Med 2014;370(14):4669-1973.) Cologuard may produce a false negative or false positive result (no colorectal cancer or precancerous polyp present at colonoscopy follow up). A negative Cologuard test result does not guarantee the absence of CRC or advanced adenoma (pre-cancer). The current Cologuard screening interval is every 3 years. (French Cancer Society and U.S. Multi-Society Task Force). Cologuard performance data in a 10,000 patient pivotal study using colonoscopy as the reference method can be accessed at the following location: www.Xockets/results. Additional description of the Cologuard test process, warnings and precautions can be found at www.cologuard.com. Stool specimen (specimen) 12/27/2022 9:47 AM EDT 12/29/2022 7:44 PM EDT Dory Wen MD LAB MOLECULAR DIAGNOS TICS ORDERABLES Final Result [facility] (CLIA #:[id number]) [place] [address], [place] [phone] from Last 3 Months or Most Recently Relevant to Health Maintenance Insurance [facility] [facility] C3 DENTAL-[employer] STAND ADULT Care Teams Hat Stock Laminating Machine Operator Relationship Specialty Start Date End Date Dory Ray MD [address] [place] [phone] PCP - General Family Medicine 01/03/19 Jeane Lemons Software ProgrammerWreath Inspector 11/09/23
--- OUTSIDE RECORDS SUMMARY | 2024-06-27 14:02 | XMS_ITS | Encounter Summary ---
Author Organization [employer] Address [address] [place] [address] Care Team Providers Care Data Analytics Developer Name Role Phone Dory Ray MD Primary Care Provide r Reason for Visit * Reason Comments Med Refill Encounter Details Date Type Department Care Team ([facility] st Contact Info) Description 01/17/2023 Refill [facility] [address] [place], [place] [phone] Dory Ray MD [address] [place] [address] Migraine without status migrainosus, not intractable, unspecified [...] 11:00 AM EDT Office Visit [facility] [address] [place] [phone] 08/15/2024 9:00 AM EDT Office Visit [address] [address] Dory Ray MD [address] [place] [phone] documented as of this encounter Visit Diagnoses Diagnosis Migraine without status migrainosus, not intractable, unspecified migraine type Chronic right-sided low back pain with right-sided sciatica documented in this encounter Additional Health Concerns Assessment Noted Time PHQ-9 Depression Total Score: 24 023 9:07 AM EDT documented as of this encounter Care Teams Data Analytics Developer Relationship Specialty Start Date End Date Dory Ray MD [address] [place] [phone] PCP - General Family Medicine 01/03/19 Jeane Lemons Manager Of Environmental ServicesBrake Coupler [address] Freight 11/09/23 documented as of this encounter
--- OUTSIDE RECORDS SUMMARY | 2024-06-27 14:02 | XMS_ITS | Encounter Summary ---
Author Organization [employer] Address [address] [place] [address] Care Team Providers Care Drawer In Hand Name Role Phone Dory Ray MD Primary Care Provide r Reason for Visit * Reason Comments Med Refill Encounter Details Date Type Department Care Team ([facility] st Contact Info) Description 04/08/2024 Refill [facility] MEDICINE [address] [place] [address] Dory Ray MD [address] [place] [address] Chronic right-sided low back pain with right-sided [...] of the following? None of the above;Lead [place] or Pipes;Pests such as bugs, ants, or [...] 11:00 AM EDT Office Visit [facility] MEDICINE [address] [place] [phone] 08/15/2024 9:00 AM EDT Office Visit [facility]INE [address] [place] [phone] Dory Ray MD [address] [place] [address] documented as of this encounter Goals Goal [...] documented as of this encounter Care Teams Drawer In Hand Relationship Specialty Start Date End Date Dory Ray MD [address] [place] [address] PCP - General Family Medicine 01/03/19 Jeane Lemons Signaling Project EngineerLive In Companion 11/09/23 documented as of this encounter
--- OUTSIDE RECORDS SUMMARY | 2024-06-27 14:02 | XMS_ITS | Encounter Summary ---
Author Organization [employer] Address [address] [facility] [address] [place] [address] Care Team Providers Care Robot Designer Name Role Phone Dory Ray MD Primary Care Provide r Reason for Visit * Reason Onset Date Comments Nurse Triage 10/11/2022 Encounter Details Date Type Department Care Team ([facility] st Contact Info) Description 10/11/2022 Telephone [facility] MEDICINE [address] [place] [address] Dory Ray MD [address] [place] [address] Nurse Triage Social History Tobacco Use Types [...] 10/11/2022 11:39 AM EDT Triage call with [facility] tunneller [place] [id number] Pt calls with numerous concerns but, abdominal [...] abdominal discomfort. Advised Pt to come to [facility] to be seen and Pt reports [...] accepted this outcome Please contact pt at [phone] (Citizen Of [place] speaker) documented in this encounter Plan of Treatment Upcoming Encounters Date Type Department Care Team (Late st Contact Info) Description 07/10/2024 11:00 AM EDT Office Visit [facility] MED[facility]INE [address] [place] [address] [phone] 08/15/2024 9:00 AM EDT Office Visit [facility] [address] [place] [phone] Dory Ray MD [address] [place] [address] documented as of this encounter Visit Diagnoses Not on filedocumented in this encounter Additional Health Concerns Assessment Noted Time PHQ-9 Depression Total Score: 21 023 9:24 AM EDT documented as of this encounter Care Teams Robot Designer Relationship Specialty Start Date End Date Dory Ray MD [address] [place] [address] PCP - General Family Medicine 01/03/19 Jeane Lemons Patient Accounting RepresentativeRegistered Nurse Float Pool 11/09/23 documented as of this encounter
--- OUTSIDE RECORDS SUMMARY | 2024-06-27 14:02 | XMS_ITS | Encounter Summary ---
Author Organization [employer] Address [address] [place] [address] Care Team Providers Care Fishing Rod Trimmer Name Role Phone Dory Ray MD Primary Care Provide r Reason for Visit * Reason Onset Date Comments antibiotic 12/09/2022 Encounter Details Date Type Department Care Team ([facility] st Contact Info) Description 12/09/2022 Telephone [facility] [address] [place], [place] [phone] Dashawn Garcia, DDS [address] [place], [place] [phone] antibiotic Social History Tobacco Use Types Packs/Day [...] after 6 on 12/09 to speak to medical certification specialist and nothing was sent to pharmacy medical certification specialist side either. Can something be sent to the pharmacy. She states he is in more pain than she was in prior to having tooth extraction done . * Telephone Encounter - Magalie Magno - 12/09/2022 3:56 PM EDT Patient had [...] she can call back and speak to medical certification specialist Or go to the emergency room. Patient understood DR documented in this encounter Plan of Treatment Upcoming Encounters Date Type Department Care Team (Late st Contact Info) Description 07/10/2024 11:00 AM EDT Office Visit [facility] MEDICINE [address] [place] [phone] 08/15/2024 9:00 AM EDT Office Visit [facility] MEDICINE [address] [place] [phone] Dory Ray MD [address] [place] [phone] documented as of this encounter Visit Diagnoses Not on filedocumented in this encounter Additional Health Concerns Assessment Noted Time PHQ-9 Depression Total Score: 21 023 9:24 AM EDT documented as of this encounter Care Teams Fishing Rod Trimmer Relationship Specialty Start Date End Date Dory Ray MD [address] [place] [address] PCP - General Family Medicine 01/03/19 Jeane Lemons Neonatal DoctorCelebrity Manager 11/09/23 documented as of this encounter
--- OUTSIDE RECORDS SUMMARY | 2024-06-27 14:02 | XMS_ITS | Encounter Summary ---
Author Organization [employer] Address [address] [facility] 7t [place] [address] Care Team Providers Care Sewage Disposal Worker Name Role Phone Dory aRy MD Primary Care Provide r Reason for Visit * Reason Comments Med Refill Encounter Details Date Type Department Care Team (Late Contact Info) Description 12/09/2022 Refill [facility] MEDICINE [address] [place] [phone] Dory Ray MD [address] [place] [phone] Anxiety Social History Tobacco Use Types Packs/Day [...] Description 07/10/2024 11:00 AM EDT Office Visit [facility] MED[facility] [address] [place] [address] [phone] 08/15/2024 9:00 AM EDT Office Visit [facility] MED[facility]INE [address] [place] [address] [phone] Dory Ray MD [address] [place] [address] documented as of this encounter Visit Diagnoses Diagnosis Anxiety Anxiety state, unspecified documented in this encounter Additional Health Concerns Assessment Noted Time PHQ-9 Depression Total Score: 21 023 9:24 AM EDT documented as of this encounter Care Teams Sewage Disposal Worker Relationship Specialty Start Date End Date Dory Ray MD [address] [place] [address] PCP - General Family Medicine 01/03/19 Jeane Lemons Manager MolecularState Game Protector 11/09/23 documented as of this encounter
--- OUTSIDE RECORDS SUMMARY | 2024-06-27 14:02 | XMS_ITS | Encounter Summary ---
Author Organization [employer] Address [address] [place] [address] Care Team Providers Care Branch Credit Counselor Name Role Phone Dory Ray MD Primary Care Provide r Reason for Visit * Reason Comments Med Refill Encounter Details Date Type Department Care Team ([facility] st Contact Info) Description 06/15/2024 Refill [facility] MEDICINE [address] [place], [place] [phone] Dory Ray MD [address] [place] [address] Chronic right-sided low back pain with right-sided [...] Description 07/10/2024 11:00 AM EDT Office Visit [facility] MEDICINE [address] [place] [phone] 08/15/2024 9:00 AM EDT Office Visit [address] [address] Dory Ray MD [address] [place] [address] documented as of this encounter Goals Goal [...] documented as of this encounter Care Teams Branch Credit Counselor Relationship Specialty Start Date End Date Dory Ray MD [address] [place] [address] PCP - General Family Medicine 01/03/19 Jeane Lemons Manager MaintenanceRailcar Brake Operator 11/09/23 documented as of this encounter
--- OUTSIDE RECORDS SUMMARY | 2024-06-27 14:02 | XMS_ITS | Encounter Summary ---
Author Organization [employer] Address 75 [facility] 7t [place] [address] Care Team Providers Care Devulcanizer Loader Name Role Phone Dory Ray MD Primary Care Provide r Reason for Visit * Reason Comments Med Refill Encounter Details Date Type Department Care Team ([facility] Contact Info) Description 11/16/2022 Refill [facility] MEDICINE [address] [place] [address] Eden Cobb MD [address] [place] [address] Anxiety Social History Tobacco Use Types Packs/Day [...] Upcoming Encounters Date Type Department Care Team ([facility] Contact Info) Description 07/10/2024 11:00 AM EDT Office Visit [facility] MEDICINE [address] [place] [address] [phone] 08/15/2024 9:00 AM EDT Office Visit [facility] MEDICINE [address] [place] [address] [phone] Dory Ray MD [address] [place] [address] documented as of this encounter Visit Diagnoses Diagnosis Anxiety Anxiety state, unspecified documented in this encounter Additional Health Concerns Assessment Noted Time PHQ-9 Depression Total Score: 21 023 9:24 AM EDT documented as of this encounter Care Teams Devulcanizer Loader Relationship Specialty Start Date End Date Dory Ray MD [address] [place] [address] PCP - General Family Medicine 01/03/19 Jeane Lemons Nail ExpertTank Shop Supervisor 11/09/23 documented as of this encounter
--- OUTSIDE RECORDS SUMMARY | 2024-06-27 14:02 | XMS_ITS | Encounter Summary ---
Author Organization [employer] Address [address] [facility] [address] 7t [place] [address] Care Team Providers Care Bin Worker Name Role Phone Dory Ray MD Primary Care Provide r Reason for Visit * Reason Onset Date Comments PA 07/29/2022 Encounter Details Date Type Department Care Team ([facility] st Contact Info) Description 07/29/2022 Telephone [facility] MEDICINE [address] [place] [address] Dory Ray MD [address] [place] [address] PA Social History Tobacco Use Types Packs/Day [...] 07/10/2024 11:00 AM EDT Office Visit [facility] [address] [place] [address] 08/15/2024 9:00 AM EDT Office Visit [facility] [address] [place] [address] Dory Ray MD [address] [place] [address] documented as of this encounter Visit Diagnoses Not on filedocumented in this encounter Care Teams Bin Worker Relationship Specialty Start Date End Date Dory Ray MD [address] [place] [phone] PCP - General Family Medicine 01/03/19 Jeane Lemons Secondary Market ManagerOil Well Logger 11/09/23 documented as of this encounter
--- OUTSIDE RECORDS SUMMARY | 2024-06-27 14:02 | XMS_ITS | Clinical Summary ---
Author Organization [facility] Address [address] [place] [address] Phone Care Team Providers Care Training Assistant Name Role Phone Dory Ray MD [...] Name Administration Dates Next Due Hepatitis B (Rmcieml-Y-Ljafy , Recombivax HB-Adult) 19yo and older 01/18/2007,08/24/2006 [...] Luo OTHER SURGICAL HISTORY 09/25/2020 Left PROCEDURE: TX NEUROPLASTY &/TRANSPOSITION ULNAR NERVE ELBOW; COMMENT: Submuscular Transposition, Dr. Luo OTHER SURGICAL HISTORY 04/14/2012 Left PROCEDURE: TX DCMPRN FASCT F/ARM&WRST FLXR/XTNSR W/O DBRDMT; COMMENT: 1st [place] Compartment/[place]'s Release, Dr. Luo Medical History [...] Recently Relevant to Health Maintenance Care Teams Training Assistant Relationship Specialty Start Date End Date Dory Ray MD [address] [place] [address] [phone] PCP - General Internal Medicine 12/30/20
--- OUTSIDE RECORDS SUMMARY | 2024-06-27 14:02 | XMS_ITS | Encounter Summary ---
Author Organization [employer] Address 75 [facility] 7t [place] [address] Care Team Providers Care Director Clinical Operations Name Role Phone Dory Ray MD Primary Care Provide r Reason for Visit * Reason Comments Med Refill Encounter Details Date Type Department Care Team (Late Contact Info) Description 07/20/2022 Refill [facility] [address] [place] [address] Eden Cobb MD [address] [place] [phone] Migraine without status migrainosus, not intractable, unspecified [...] 07/10/2024 11:00 AM EDT Office Visit [facility] MEDICINE [address] [place] [address] 08/15/2024 9:00 AM EDT Office Visit [facility] MED[facility]INE [address] [place] [address] Dory Ray MD [address] [place] [address] documented as of this encounter Visit Diagnoses Diagnosis Migraine without status migrainosus, not intractable, unspecified migraine type documented in this encounter Care Teams Director Clinical Operations Relationship Specialty Start Date End Date Dory Ray MD [address] [place] [address] PCP - General Family Medicine 01/03/19 Jeane Lemons Sock DrierFilm Mounter 11/09/23 documented as of this encounter
--- OUTSIDE RECORDS SUMMARY | 2024-06-27 14:02 | XMS_ITS | Encounter Summary ---
Author Organization [employer] Address [address] [facility] [address] 7t [place] [address] Care Team Providers Care Bow Stapler Name Role Phone Dory Ray MD Primary Care Provide r Reason for Visit * Reason Comments Med Refill Encounter Details Date Type Department Care Team ([facility] st Contact Info) Description 08/06/2023 Refill [facility] MEDICINE [address] [place], [place] [phone] Dory Ray MD [address] [place] [address] Chronic right-sided low back pain with right-sided [...] Description 07/10/2024 11:00 AM EDT Office Visit [facility] [address] [place] [address] 08/15/2024 9:00 AM EDT Office Visit [address] [address] Dory Ray MD [address] [place] [address] documented as of this encounter Goals Goal [...] documented as of this encounter Care Teams Bow Stapler Relationship Specialty Start Date End Date Dory Ray MD [address] [place] [phone] PCP - General Family Medicine 01/03/19 Jeane Lemons Life Skills Coordinator VolunteerSeo Specialist 11/09/23 documented as of this encounter
--- OUTSIDE RECORDS SUMMARY | 2024-06-27 14:03 | XMS_ITS | Encounter Summary ---
Author Organization [employer] Address [address] [facility] [address] 7t [place] [address] Care Team Providers Care Automotive Brake Technician Name Role Phone Dory Ray MD Primary Care Provide r Reason for Visit * Reason Comments Med Refill Encounter Details Date Type Department Care Team ([facility] st Contact Info) Description 12/29/2022 Refill [facility]EDS [address] [place] [address] Sunshine James, DO [address] [place] [address] Strain of neck muscle, initial encounter; Neck [...] Description 07/10/2024 11:00 AM EDT Office Visit [facility] MEDICINE [address] [place] [address] 08/15/2024 9:00 AM EDT Office Visit [address] [address] Dory Ray MD [address] [place] [phone] documented as of this encounter Visit Diagnoses Diagnosis Strain of neck muscle, initial encounter Neck pain Cervicalgia documented in this encounter Additional Health Concerns Assessment Noted Time PHQ-9 Depression Total Score: 24 023 9:07 AM EDT documented as of this encounter Care Teams Automotive Brake Technician Relationship Specialty Start Date End Date Dory Ray MD [address] [place] [address] PCP - General Family Medicine 01/03/19 Jeane Lemons Biomaterials EngineerComputer Networker 11/09/23 documented as of this encounter
== END 2024-06-27 11:30 | disposition home or self-care (01) ==
LOC: HO.MAMMO 11:29
PROVIDERS: PCP Internal Medicine; Visit Provider Internal Medicine
DX: Z12.31 Encounter for screening mammogram for malignant neoplasm of breast (principal)
CPT/HCPCS: 77063; 77067

== ENCOUNTER → 2024-06-27 12:00 | Outpatient (BNV) | payer MEDICAID, SELFPAY | PROVIDERS: PCP Internal Medicine; Visit Provider Internal Medicine | DX: Z12.31 Encounter for screening mammogram for malignant neoplasm of breast (principal) | CPT/HCPCS: 77063; 77067 ==

== ENCOUNTER 2024-06-28 09:09 | Outpatient (REF) | payer MEDICAID, SELFPAY ==
[2024-06-28 10:36] LABS: HCG Quantitative 6 mIU/mL
== END 2024-06-28 09:10 | disposition home or self-care (01) ==
LOC: HO.LAB 09:09
PROVIDERS: PCP Internal Medicine; Visit Provider Obstetrics & Gynecology
DX: N93.9 Abnormal uterine and vaginal bleeding, unspecified (principal)
CPT/HCPCS: 36415; 84702

== ENCOUNTER → 2024-06-29 10:06 | Outpatient (AMB) | payer MEDICAID, SELFPAY ==
--- NOTE | 2024-06-29 07:53 | A.OFFVIS_ITS ---
Intake Visit Reasons: LDCT Allergies No Known Allergies Allergy (Verified 06/26/24 08:27) HPI HPI LDCT: Details: Initial visit for this 48yo smoker with a 20PYH. Patient started smoking at age 10 for 38 years at 1/2-3/4ppd. . Denies marijuana use. Denies second hand smoke exposure. Denies exposure to chemicals or substances like asbestos. . Reports family history of lung cancer. Mother. Denies personal history of cancers. . Denies chest CT in last year. She had prior scan at [facility] that noted some nodules and she never had follow up. . Denies recent travel outside the [place]. Denies recent respiratory illness or recent hospitalization for respiratory issues. Reports testing positive for COVID. Admits receiving COVID Vaccine. . Denies fever, chills, new/worsening cough, hemoptysis, hoarseness or dysphagia. Denies significant chest pain, significant dyspnea or unintentional weight loss. Patient Lung Cancer Screening Questionnaire reviewed with patient by provider. . Shared Decision Making Completed. Patient meets criteria. Discussed in detail with patient, the risk vs benefit of LDCT screening. Patient consents to proceed with scan. Discussed smoking cessation. [facility] Medical History (Updated 06/29/24 @ 10:40 by Ella Gould PA-C) HTN (hypertension) Asthma Seasonal allergies Nicotine dependence, cigarettes, uncomplicated Fibromyalgia Chronic pain syndrome Anxiety and depression Migraines Constipation Complex ovarian cyst Abnormal uterine bleeding (AUB) Microscopic hematuria Interstitial cystitis Urinary frequency Stress incontinence Female pelvic pain Abdominal mass, left lower quadrant Well woman exam Breast lump Disc degeneration, lumbar Spondylosis of lumbar spine Arthritis Surgical History History of carpal tunnel surgery of left wrist History of cystoscopy History of salpingo-oophorectomy History of loop electrosurgical excision procedure (LEEP) History of bilateral tubal ligation Family History Sister History of breast cancer, Onset Age: 52 Brother History of bone cancer History of blood disorder History of brain cancer Paternal Aunt History of cancer of uterus Mother Hx of cancer of lung Sister Hx of hysterectomy Family/Other Hx of hysterectomy Family/Other Hx of hysterectomy Daughter Hx of thyroid cancer Social History (Updated 06/29/24 @ 10:40 by Ella Gould PA-C) Household Members: Significant Other Housing: Apartment Do you presently have visiting nurse or other home services: Yes ([employer]EE URN ATTENDANT daily) Alcohol intake: never Patient Tobacco Use Status: Current everyday Tobacco user Tobacco use type: Cigarette Cigarettes Per Day: 10 Years Smoked: (onset 10yo, 1/2-3/4ppd x 38yrs - 20pyh) Second Hand Smoke Exposure: No Substance Use Type: Marijuana service: No Sexual orientation: Straight/Heterosexual Gender identity: Female Female Reproductive History Menstrual Age of Menarche: 9 Assessment & Plan Assessment & Plan (1) Nicotine dependence, cigarettes, uncomplicated: Comment: (onset 10yo, 1/2-3/4ppd x 38yrs - 20pyh) Code(s): F17.210 - Nicotine dependence, cigarettes, uncomplicated Category: Medical Plan: - SDM visit completed today in office. - Patient meets criteria for LDCT for lung cancer screening purposes and is asymptomatic. - Smoking cessation counseling offered. Patients can always call [phone]. - Will arrange for a LDCT scan of the chest for screening purposes at [facility]. - Risks, benefits, and alternatives were discussed in detail and the patient agrees to proceed. - Risks discussed include but are not limited to: radiation exposure, anxiety during testing and while awaiting results, false negatives, false positives and possibility of additional intervention such as further imaging or surgical procedures for benign disease. - Benefits are obviously detection of lung cancer at an early stage which can lead to improved outcomes. - Discussed the importance of screening program compliance with adherence to yearly LDCT scan as scheduled - or sooner interval scans for personalized screening regimen. - Discussed follow up plan. Our office will send a letter discussing results and if needed set up phone call and office visit based on CT findings. - Patient educated on results categorization and the management decisions for suspicious findings potentially found on the screening LDCT scan. Any patient with a Lung RADS score of 3 or 4 will be reviewed by a multidisciplinary team at [facility] to form a plan of action in regards to scan findings. - If further work up is warranted for a suspicious lung finding this will be followed by the Lung Cancer Screening program in conjunction with the Thoracic Surgery Department at [facility]. - A copy of the office note and LDCT will be sent to the patient's PCP - as well as documentation on any associated further plans of care. - Incidental findings on LDCT are the PCP's responsibility. These findings are indicated with an S finding on the LDCT Assessment. A note discussing the findings will be sent to the PCP who is then responsible for further management. - All questions answered.? Coding Level of Care Code Lung Cancer Screening G0296 Diagnoses Nicotine dependence, cigarettes, uncomplicated F17.210
== END ==
LOC: HO.HPS 10:06
PROVIDERS: PCP Internal Medicine; Referring Provider Internal Medicine; Visit Provider Physician Assistant Medical
DX: F17.210 Nicotine dependence, cigarettes, uncomplicated (principal)
CPT/HCPCS: G0296

== ENCOUNTER 2024-06-29 10:23 | Outpatient (REF) | payer MEDICAID, SELFPAY ==
--- NOTE | ~2024-06-29 | CT_ITS ---
EXAMINATION: CT LUNG SCREENING HISTORY: Smoking history TECHNIQUE: Low dose axial images were obtained from the sternal notch to upper abdomen without IV contrast per standard departmental protocol. Sagittal and coronal reformatted images were also obtained and reviewed. One or more of the following techniques was used for dose reduction: Automated exposure control, adjustment of the mA and/or kV according to patient size, use of iterative reconstruction technique. DLP: 43 mGy-cm COMPARISON: Comparison is made with the prior examination dated 05/27/2020. FINDINGS: Lung nodules: There are tiny 1-2 mm nodules of the right upper lobe (series 4, images 27 and 37). No additional pulmonary nodules are identified. Emphysema: none Coronary Calcification: none Aortic Arch Calcification: none Potentially Significant Incidentals : none Additional Chest Findings: There is no pleural or pericardial effusion. No mediastinal or axillary lymphadenopathy is identified. Visualized upper abdomen: The visualized portions of the liver, spleen, and adrenals have an unremarkable unenhanced appearance. CT/CT lung screening IMPRESSION: No suspicious pulmonary nodules are identified. LUNG-RADS ASSESSMENT: Lung-RADS 2: Benign MANAGEMENT: Continue annual screening with LDCT in 12 months Category S: N/A Electronically signed by: Richard Willson MD 06/29/2024 11:34 AM EDT
== END 2024-06-29 10:24 | disposition home or self-care (01) ==
LOC: HO.CT 10:23
PROVIDERS: PCP Internal Medicine; Visit Provider Physician Assistant Medical
DX: Z12.2 Encounter for screening for malignant neoplasm of respiratory organs (principal); F17.210 Nicotine dependence, cigarettes, uncomplicated
CPT/HCPCS: 71271; G0296

== ENCOUNTER → 2024-06-29 10:24 | Outpatient (BNV) | payer MEDICAID, SELFPAY | PROVIDERS: PCP Internal Medicine; Visit Provider Radiology Diagnostic Radiology | DX: F17.210 Nicotine dependence, cigarettes, uncomplicated (principal) | CPT/HCPCS: 71271 ==

== ENCOUNTER 2024-07-09 12:28 | Outpatient (REF) | payer MEDICAID, SELFPAY ==
--- NOTE | ~2024-07-09 | US_ITS ---
EXAMINATION: US PELVIS TRANSABDOMINAL AND TRANSVAGINAL HISTORY: N83.299 - Other ovarian cyst, unspecified side COMPARISON: Comparison is made with the prior examination dated 03/23/2024. TECHNIQUE: Transabdominal and endovaginal real-time 2D berry-scale ultrasound was performed. FINDINGS: Uterus: The uterus is normal in size, measuring 8.9 x 4.0 x 5.4 cm. Myometrium has a normal echotexture. No fibroids are identified. Endometrium: The endometrial stripe measures 9 mm in thickness. Right ovary: The right ovary is not visualized. Left ovary: The left ovary measures 2.6 x 1.8 x 2.4 cm. The left ovary is normal in size and echotexture. The previously seen septated cyst is no longer identified. Pelvic fluid: none. US/US pelvic and transvaginal IMPRESSION: The right ovary is not visualized. Otherwise unremarkable pelvic ultrasound. The previously seen septated left ovarian cyst has resolved. Electronically signed by: Richard Willson MD 07/09/2024 02:04 PM EDT
--- OUTSIDE RECORDS SUMMARY | 2024-07-09 14:47 | XMS_ITS | Encounter Summary ---
Author Organization [employer] Address 75 [facility] 7t [place] [address] Care Team Providers Care Piece Dyer Name Role Phone Dory Ray MD Primary Care Provide r Reason for Visit * Reason Comments Med Refill Encounter Details Date Type Department Care Team ([facility] Contact Info) Description 10/06/2022 Refill [facility] PEDS [address] [place] [address] Dory Ray MD [address] [place] [address] Chronic pain syndrome Social History Tobacco Use [...] Upcoming Encounters Date Type Department Care Team ([facility] Contact Info) Description 07/10/2024 11:00 AM EDT Office Visit [facility] MEDICINE [address] [place] [address] [phone] 08/15/2024 9:00 AM EDT Office Visit [facility] MEDICINE [address] [place] [address] [phone] Dory Ray MD [address] [place], [place] [phone] documented as of this encounter Visit Diagnoses Diagnosis Chronic pain syndrome documented in this encounter Additional Health Concerns Assessment Noted Time PHQ-9 Depression Total Score: 21 023 9:24 AM EDT documented as of this encounter Care Teams Piece Dyer Relationship Specialty Start Date End Date Dory Ray MD [address] [place] [address] PCP - General Family Medicine 01/03/19 Jeane Lemons Personal Lines Account ExecutiveRoom Server 11/09/23 documented as of this encounter
--- OUTSIDE RECORDS SUMMARY | 2024-07-09 14:47 | XMS_ITS | Encounter Summary ---
Author Organization [employer] Address [address] [facility] [address] 7t [place] [address] Care Team Providers Care Cable Television Program Director Name Role Phone Dory Ray MD Primary Care Provide r Encounter Details Date Type Department Care Team (Late Contact Info) Description 04/07/[address] [facility] MEDICINE [address] [place] [address] Rohini Middleton MD [address] [place] [address] [phone] Pain (Primary Dx) Social History Tobacco Use [...] AM EDT Office Visit [facility] MEDICINE [address] [place] [phone] 08/15/2024 9:00 AM EDT Office Visit [facility] MEDICINE [address] [place] [address] Dory Ray MD [address] [place], [place] [phone] documented as of this encounter Visit Diagnoses Diagnosis Pain- Primary Generalized pain documented in this encounter Care Teams Cable Television Program Director Relationship Specialty Start Date End Date Dory Ray MD [address] [place] [address] [phone] PCP - General Family Medicine 01/03/19 Jeane Lemons Binder CutterWildlife Conservationist 11/09/23 documented as of this encounter
--- OUTSIDE RECORDS SUMMARY | 2024-07-09 14:47 | XMS_ITS | Encounter Summary ---
Author Organization [employer] Address [address] [facility] [address] 7t [place] [address] Care Team Providers Care Rod Buster Name Role Phone Dory Ray MD Primary Care Provide r Reason for Visit * Reason Comments Med Refill Encounter Details Date Type Department Care Team ([facility] st Contact Info) Description 08/06/[address] [facility] MEDICINE [address] [place], [place] [phone] Dory Ray MD [address] [place] [address] Chronic right-sided low back pain with right-sided [...] Office Visit [facility] MEDICINE [address] [place] [phone] 08/15/2024 9:00 AM EDT Office Visit [address] [address] Dory Ray MD [address] [place] [address] documented as of this encounter Goals Goal [...] documented as of this encounter Care Teams Rod Buster Relationship Specialty Start Date End Date Dory Ray MD [address] [place] [address] PCP - General Family Medicine 01/03/19 Jeane Lemons Newspaper JournalistComputer Sciences Professor 11/09/23 documented as of this encounter
--- OUTSIDE RECORDS SUMMARY | 2024-07-09 14:47 | XMS_ITS | Encounter Summary ---
Author Organization [employer] Address [address] [facility] [address] 7t [place] [address] Care Team Providers Care Litharge Supervisor Name Role Phone Dory Ray MD Primary Care Provide r Reason for Visit * Reason Comments Med Refill Encounter Details Date Type Department Care Team ([facility] st Contact Info) Description 03/19/2024 Refill [facility] MEDICINE [address] [place] [address] Dory Ray MD [address] [place] [address] Essential hypertension Social History Tobacco Use Types [...] with others, in a hotel, in a snf, living outside on the street, on a beach, in a car, or in a park 08/19/[address] you li ve. Do you have problems with any of the following? None of the above;Lead [place] or Pipes;Pests such as bugs, ants, or [...] Office Visit [facility] MEDICINE [address] [place] [phone] 08/15/2024 9:00 AM EDT Office Visit [facility] MEDICINE [address] [place] [address] Dory Ray MD [address] [place] [address] documented as of this encounter Goals Goal [...] documented as of this encounter Care Teams Litharge Supervisor Relationship Specialty Start Date End Date Dory Ray MD [address] [place] [address] PCP - General Family Medicine 01/03/19 Jeane Lemons Yarding EngineerDoggy Daycare Activities Director 11/09/23 documented as of this encounter
--- OUTSIDE RECORDS SUMMARY | 2024-07-09 14:47 | XMS_ITS | Encounter Summary ---
Author Organization [employer] Address [address] [facility] [address] 7t [place] [address] Care Team Providers Care Filter Press Pumper Name Role Phone Dory Ray MD Primary Care Provide r Reason for Visit * Reason Comments Med Refill Encounter Details Date Type Department Care Team ([facility] st Contact Info) Description 04/10/2024 Refill [facility] MEDICINE [address] [place], [place] [phone] Dory Ray MD [address] [place] [address] Chronic right-sided low back pain with right-sided [...] of the following? None of the above;Lead [place] or Pipes;Pests such as bugs, ants, or [...] Description 07/10/2024 11:00 AM EDT Office Visit [address] [address] 08/15/2024 9:00 AM EDT Office Visit [facility] MEDICINE [address] [place] [address] Dory Ray MD [address] [place] [address] documented as of this encounter Goals Goal [...] documented as of this encounter Care Teams Filter Press Pumper Relationship Specialty Start Date End Date Dory Ray MD [address] [place] [address] PCP - General Family Medicine 01/03/19 Jeane Lemons Cranberry Bog SupervisorDuct Layer Supervisor 11/09/23 documented as of this encounter
--- OUTSIDE RECORDS SUMMARY | 2024-07-09 14:47 | XMS_ITS | Encounter Summary ---
Author Organization [employer] [facility] [employer] Address 75 [facility] 7t [place] [address] Care Team Providers Care Wireless Consultant Name Role Phone Dory Ray MD Primary Care Provide r Reason for Visit * Reason Comments Med Refill Encounter Details Date Type Department Care Team (Late st Contact Info) Description 08/05/2022 Refill [facility] MEDICINE [address] [place] [address] [phone] Dory Ray MD [address] [place] [phone] Anxiety Social History Tobacco Use Types Packs/Day [...] Description 07/10/2024 11:00 AM EDT Office Visit [facility] MEDICINE [address] [place] [address] [phone] 08/15/2024 9:00 AM EDT Office Visit [facility] MEDICINE [address] [place] [address] Dory Ray MD [address] [place] [address] [phone] documented as of this encounter Visit Diagnoses Diagnosis Anxiety Anxiety state, unspecified documented in this encounter Care Teams Wireless Consultant Relationship Specialty Start Date End Date Dory Ray MD [address] [place], [place] [phone] PCP - General Family Medicine 01/03/19 Jeane Lemons Machine Fur CleanerSatellite Installer 11/09/23 documented as of this encounter
--- OUTSIDE RECORDS SUMMARY | 2024-07-09 14:47 | XMS_ITS | Encounter Summary ---
Author Organization [employer] Address [address] [facility] [address] 7[address] [place] [address] Care Team Providers Care Internal Combustion Engine Inspector Name Role Phone Dory Ray MD Primary Care Provide r Reason for Visit * Reason Comments Med Refill Encounter Details Date Type Department Care Team ([facility] st Contact Info) Description 03/07/2022 Refill [facility] [address] [place] [address] Emilia De La Torre FNP [address] [place] [address] Fibromyalgia (Primary Dx) Social History Tobacco Use [...] . Pt stated will be traveling to [place] on 03/10/22. Last seen on 01/20/22. PCP Dr. Garcia documented in this encounter Plan of Treatment Upcoming Encounters Date Type Department Care Team (Late st Contact Info) Description 07/10/2024 11:00 AM EDT Office Visit [address] [address] 08/15/2024 9:00 AM EDT Office Visit [address] [address] Dory Ray MD [address] [place] [address] documented as of this encounter Visit Diagnoses Diagnosis Fibromyalgia- Primary Unspecified myalgia and myositis documented in this encounter Care Teams Internal Combustion Engine Inspector Relationship Specialty Start Date End Date Dory Ray MD [address] [place] [address] PCP - General Family Medicine 01/03/19 Jeaen Lem[place] Home Demonstration AgentWireworker Supervisor 11/09/23 documented as of this encounter
--- OUTSIDE RECORDS SUMMARY | 2024-07-09 14:47 | XMS_ITS | Encounter Summary ---
Author Organization [employer] Address [address] [facility] [address] 7t [place] [address] Care Team Providers Care Laundry Tech Name Role Phone Dory Ray MD Primary Care Provide r Reason for Visit * Reason Onset Date Comments requesting call back 03/24/2022 Encounter Details Date Type Department Care Team ([facility] Contact Info) Description 03/24/2022 Telephone [facility] [address] [place] [address] Dory Ray MD [address] [place] [address] requesting call back Social History Tobacco Use [...] encounter Miscellaneous Notes * Telephone Encounter - Abihnav Ruperto - 03/24/2022 10:29 AM EST Tc from pt returning call Please contact pt at [phone] documented in this encounter Plan of Treatment Upcoming Encounters Date Type Department Care Team ([facility] st Contact Info) Description 07/10/2024 11:00 AM EDT Office Visit [address] [address] 08/15/2024 9:00 AM EDT Office Visit [address] [address] Dory Ray MD [address] [place] [address] documented as of this encounter Visit Diagnoses Not on filedocumented in this encounter Care Teams Laundry Tech Relationship Specialty Start Date End Date Dory Ray MD [address] [place] [address] [phone] PCP - General Family Medicine 01/03/19 Jeane Lemons Stock Control ClerkHorse Rider 11/09/23 documented as of this encounter
--- OUTSIDE RECORDS SUMMARY | 2024-07-09 14:47 | XMS_ITS | Encounter Summary ---
Author Organization [employer] Address [address] [facility] [address] 7t [place] [address] Care Team Providers Care Effervescent Salts Compounder Name Role Phone Dory Ray MD Primary Care Provide r Reason for Visit * Reason Comments Med Refill Encounter Details Date Type Department Care Team ([facility] st Contact Info) Description 05/20/2023 Refill [facility]INE 230 [place], [place] [phone] Dory Ray MD [address] [place], [place] [phone] Chronic pain syndrome Social History Tobacco Use [...] 11:00 AM EDT Office Visit [facility] [address] [place] [address] 08/15/2024 9:00 AM EDT Office Visit [address] [address] Dory Ray MD [address] [place] [address] documented as of this encounter Goals Goal [...] documented as of this encounter Care Teams Effervescent Salts Compounder Relationship Specialty Start Date End Date Dory Ray MD [address] [place] [phone] PCP - General Family Medicine 01/03/19 Jeane Lemons Chairman CeoStatement Request Clerk 11/09/23 documented as of this encounter
--- OUTSIDE RECORDS SUMMARY | 2024-07-09 14:47 | XMS_ITS | Encounter Summary ---
Author Organization [employer] Address [address] [facility] 7t h Floor [place] [phone] Care Team Providers Care Boiler House Supervisor Name Role Phone Dory Ray MD Primary Care Provide r Reason for Visit * Reason Comments Med Refill Encounter Details Date Type Department Care Team ([facility] st Contact Info) Description 08/23/2023 Refill [facility] 230 [place] [address] Dashawn Garcia DDS [address] [place] [address] Social History Tobacco Use Types Packs/Day Years [...] with others, in a hotel, in a [place] [facility] [place], living outside on the street, on a beach, in a car, or in a park 08/19/[address] you li ve. Do you have problems with any of the following? None of the above;Lead [place] or Pipes;Pests such as bugs, ants, or [...] Description 07/10/2024 11:00 AM EDT Office Visit [facility] [address] [place] [address] 08/15/2024 9:00 AM EDT Office Visit [facility] [address] [place] [address] Dory Ray MD 230 [place] [address] documented as of this encounter Goals Goal [...] documented as of this encounter Care Teams Boiler House Supervisor Relationship Specialty Start Date End Date Dory Ray MD [address] [place] [address] PCP - General Family Medicine 01/03/19 Jeane Lemons Senior Storage AdministratorChiropractic Neurologist 11/09/23 documented as of this encounter
--- OUTSIDE RECORDS SUMMARY | 2024-07-09 14:47 | XMS_ITS | Encounter Summary ---
Author Organization [employer] Address [address] [facility] [address] 7t [place] [address] Care Team Providers Care Java Web Application Developer Name Role Phone Dory Ray MD Primary Care Provide r Reason for Visit * Reason Onset Date Comments Durable Medical Equipment 03/21/2024 Encounter Details Date Type Department Care Team ([facility] st Contact Info) Description 03/21/2024 Telephone [facility]INE 230 [place] [address] Dory Ray MD [address] [place] [address] Durable Medical Equipment Social History Tobacco Use [...] of the following? None of the above;Lead [place] or Pipes;Pests such as bugs, ants, or [...] requesting DME for Wipes. Contact pt at [phone] documented in this encounter Plan of Treatment Upcoming Encounters Date Type Department Care Team (Late st Contact Info) Description 07/10/2024 11:00 AM EDT Office Visit [facility] MED[facility]INE [address] [place] [address] 08/15/2024 9:00 AM EDT Office Visit [facility] [address] [place] [address] Dory Ray MD [address] [place] [address] documented as of this encounter Goals Goal [...] documented as of this encounter Care Teams Java Web Application Developer Relationship Specialty Start Date End Date Dory Ray MD [address] [place] [address] PCP - General Family Medicine 01/03/19 Jeane Lemons Editor Continuity And ScriptSlab Grinder 11/09/23 documented as of this encounter
--- OUTSIDE RECORDS SUMMARY | 2024-07-09 14:47 | XMS_ITS | Encounter Summary ---
Author Organization [employer] Address 75 [facility] 7t [place] [address] Care Team Providers Care Senior Production Planner Name Role Phone Dory Ray MD Primary Care Provide r Reason for Visit * Reason Comments Med Refill Encounter Details Date Type Department Care Team (Late st Contact Info) Description 06/22/2022 Refill [facility] MED[facility] [address] [place] [address] Name, MD Soy [address] [place] [phone] Recurrent major depressive episodes, moderate (CMS/HCC); Migraine [...] Description 07/10/2024 11:00 AM EDT Office Visit [facility] [address] [place] [phone] 08/15/2024 9:00 AM EDT Office Visit [facility] [address] [place] [address] [phone] Dory Ray MD 230 [place] [address] documented as of this encounter Visit Diagnoses Diagnosis Recurrent major depressive episodes, moderate (CMS/HCC) Major depressive disorder, recurrent episode, moderate Migraine without status migrainosus, not intractable, unspecified migraine type documented in this encounter Care Teams Senior Production Planner Relationship Specialty Start Date End Date Dory Ray MD [address] [place] [address] PCP - General Family Medicine 01/03/19 Jeane Lemons Yarn Mercerizer OperatorRetail Management Trainee 11/09/23 documented as of this encounter
--- OUTSIDE RECORDS SUMMARY | 2024-07-09 14:47 | XMS_ITS | Encounter Summary ---
Author Organization [employer] Address 75 [facility] 7t [place] [address] Care Team Providers Care Bituminous Distributor Operator Name Role Phone Dory Ray MD Primary Care Provide r Reason for Visit * Reason Comments Med Refill Encounter Details Date Type Department Care Team (Late Contact Info) Description 07/20/2022 Refill [facility] [address] [place] [address] Eden Cobb MD [address] [place] [address] Migraine without status migrainosus, not intractable, unspecified [...] 11:00 AM EDT Office Visit [facility] [address] [place] [address] 08/15/2024 9:00 AM EDT Office Visit [facility] [address] [place] [address] Dory Ray MD [address] [place] [address] documented as of this encounter Visit Diagnoses Diagnosis Migraine without status migrainosus, not intractable, unspecified migraine type documented in this encounter Care Teams Bituminous Distributor Operator Relationship Specialty Start Date End Date Dory Ray MD [address] [place] [address] PCP - General Family Medicine 01/03/19 Jeane Lemons Chemical Process OperatorInsurance Executive 11/09/23 documented as of this encounter
--- OUTSIDE RECORDS SUMMARY | 2024-07-09 14:47 | XMS_ITS | Encounter Summary ---
Author Organization [employer] Address [address] [facility] [address] 7t [place] [address] Care Team Providers Care Grant Writer Name Role Phone Dory Ray MD Primary Care Provide r Reason for Visit * Reason Onset Date Comments PA 07/29/2022 Encounter Details Date Type Department Care Team ([facility] st Contact Info) Description 07/29/2022 Telephone [facility] [address] [place] [address] Dory Ray MD [address] [place] [address] PA Social History Tobacco Use Types Packs/Day [...] 07/10/2024 11:00 AM EDT Office Visit [facility] [address] [place] [address] 08/15/2024 9:00 AM EDT Office Visit [facility] [address] [place] [address] Dory Ray MD [address] [place] [address] documented as of this encounter Visit Diagnoses Not on filedocumented in this encounter Care Teams Grant Writer Relationship Specialty Start Date End Date Dory Ray MD [address] [place] [phone] PCP - General Family Medicine 01/03/19 Jeane Lemons Apparatus OperatorRetort Forker 11/09/23 documented as of this encounter
--- OUTSIDE RECORDS SUMMARY | 2024-07-09 14:48 | XMS_ITS | Encounter Summary ---
Author Organization [employer] Address [address] [facility] [address] 7t [place] [address] Care Team Providers Care Customer Service Receptionist Name Role Phone Dory Ray MD Primary Care Provide r Encounter Details Date Type Department Care Team (Late st Contact Info) Description 01/12/2023 Abstract [facility] [address] [place] [address] Dory Ray MD [address] [place] [address] Social History Tobacco Use Types Packs/Day Years [...] Description 07/10/2024 11:00 AM EDT Office Visit [facility] [address] [place] [address] 08/15/2024 9:00 AM EDT Office Visit [facility] [address] [place] [address] Dory Ray MD [address] [place] [address] documented as of this encounter Visit Diagnoses Not on filedocumented in this encounter Additional Health Concerns Assessment Noted Time PHQ-9 Depression Total Score: 24 023 9:07 AM EDT documented as of this encounter Care Teams Customer Service Receptionist Relationship Specialty Start Date End Date Dory Ray MD [address] [place] [phone] PCP - General Family Medicine 01/03/19 Jeane Lemons Personal Health CoachHeavy Coil Winder 11/09/23 documented as of this encounter
--- OUTSIDE RECORDS SUMMARY | 2024-07-09 14:48 | XMS_ITS | Encounter Summary ---
Author Organization [employer] Address [address] [facility] 7t [place] [address] Care Team Providers Care Budget Consultant Name Role Phone Dory Ray MD Primary Care Provide r Reason for Visit * Reason Comments Med Refill Encounter Details Date Type Department Care Team ([facility] st Contact Info) Description 07/05/2024 Refill [facility] [address] [place], [place] [phone] [facility] 230 [place] [address] Social History Tobacco Use Types Packs/Day Years [...] Description 07/10/2024 11:00 AM EDT Office Visit [facility] [address] [place] [address] 08/15/2024 9:00 AM EDT Office Visit [facility] [address] [place] [address] Dory Ray MD [address] [place] [address] documented as of this encounter Goals Goal [...] documented as of this encounter Care Teams Budget Consultant Relationship Specialty Start Date End Date Dory Ray MD 230 [place] [address] PCP - General Family Medicine 01/03/19 Jeane Lemons Bleacher Kraft PulpAutomatic Log Cut Off Sawyer 11/09/23 documented as of this encounter
--- OUTSIDE RECORDS SUMMARY | 2024-07-09 14:48 | XMS_ITS | Clinical Summary ---
Author Organization [facility] Address [address] [place] [address] Phone Care Team Providers Care Brick Paver Name Role Phone Dory Ray MD Primary [...] Name Administration Dates Next Due Hepatitis B (Uvfzlpi-S-Egbwx , Recombivax HB-Adult) 19yo and older 01/18/2007,08/24/2006 [...] Luo OTHER SURGICAL HISTORY 09/25/2020 Left PROCEDURE: [place] NEUROPLASTY &/TRANSPOSITION ULNAR NERVE ELBOW; COMMENT: Submuscular Transposition, Dr. Luo OTHER SURGICAL HISTORY 04/14/2012 Left PROCEDURE: [place] DCMPRN FASCT F/ARM&WRST FLXR/XTNSR W/O DBRDMT; COMMENT: 1st [place] Compartment/De Quervain's Release, Dr. Luo Medical History [...] age to complete this topic Meningococcal B Vaccine Aged Out No l onger eligible based on patient's age to complete [...] Recently Relevant to Health Maintenance Care Teams Brick Paver Relationship Specialty Start Date End Date Dory Ray MD [address] [place] [phone] PCP - General Internal Medicine 12/30/20
--- OUTSIDE RECORDS SUMMARY | 2024-07-09 14:48 | XMS_ITS | Clinical Summary ---
Author Organization [employer] Address [address] [facility] 7t [place] [address] Care Team Providers Care Mortgage Loan Funder Name Role Phone Dory Ray MD Primary [...] split. 30 tablet 11 024 2024 Active ibuprofen 800 MG tabletIndications :Chronic right-sided [...] NOON, AND AT BEDTIME 90 tablet 1 Active nicotine polacrilex (Commit) 4 MG lozenge DISSOLVE 1 LOZENGE (4 MG) IN THE MOUTH EVERY 2 (TWO) HOURS IF NEEDED FOR SMOKING CESSATION. 144 lozenge 5 Active hydrOXYzine HCl (Atarax) 25 MG tablet Take 1-2 tablets by mouth if needed in the morning and at bedtime for anxiety (or insomnia). 01/14/2 025 Active QUEtiapine (SEROquel) 25 MG tablet [...] SEVERE PAIN 112 tablet 025 2024 Active lidocaine (Lidoderm) 5 % patchIndications: Chronic right-sided low back pain with right-sided sciatica Apply 1 patch topically Once per day. Remove & discard patch within 12 hours or as directed by MD. 30 patch 1 025 Active mirtazapine (Remeron) 45 MG tablet TAKE 1 TABLET BY MOUTH EVERYDAY AT BEDTIME 30 tablet 1 025 Active hydroCHLOROthiazi de (HYDRODiuril) 25 MG tabletIndications :Essential hypertension TAKE 1 TABLET BY MOUTH EVERY DAY IN THE MORNING 90 tablet 1 024 2024 Discontinued lidocaine (Lidoderm) 5 % patchIndications: Chronic right-sided low back pain with right-sided sciatica APPLY 1 PATCH TOPICALLY ONCE PER DAY. REMOVE & DISCARD PATCH WITHIN 12 HOURS OR DIRECTED BY MD. 30 patch 1 024 2024 Discontinued(R eorder (will not trigger notification to Pharmacy)) mirtazapine (Remeron) 45 MG tablet TAKE 1 TABLET BY MOUTH EVERYDAY AT BEDTIME 30 tablet 1 025 2024 Discontinued traMADol (Ultram) 50 MG tabletIndications [...] PRN Indication: bulging lumbar disc, fibromyalgia Last DICE MANAGER Agreement: 03/13/24 Additional considerations/risk factors: BZO Tier II (DICE MANAGER visits Q3 months) - last evaluated Mar [...] and non-pharm modalities Continues with COT. See outside rigger for urine/pill count. Assessment & Plan (01/10/2024 [...] Marlene agrees to go in person to [facility] to follow up on status of a therapist. She also agrees to follow up in 2 weeks via telehealth for support. She agrees to come in person if needed, to sign a release for me to speak with [facility]. I also recommended acupuncture and discussed sleep [...] Encounters Date Type Department Care Team Description 07/09/2024 Orders Only [facility] External Provider, [facility] 07/05/2024 Refill [facility] [address] [place] [address] [facility] 07/02/2024 Refill [facility] [address] [place] [address] Dory Ray MD Chronic right-sided low back pain with right-sided sciatica 06/29/2024 Orders Only [facility] External Provider, [facility] 06/28/2024 Orders Only [facility]TERNAL DATA DEPARTMENT Provider, Generic External Data 06/27/2024 Orders Only [facility] [address] [place] [address] Dory Ray MD 06/26/2024 Orders Only GENERIC EXTERNAL DATA DEPARTMENT Provider, Generic External Data 06/22/2024 Telephone [facility] [address] [place] [address] Dory Ray MD Referral 06/15/2024 Population Health Risk Score [facility] [address] [phone] Provider, Population Health Generic 06/15/2024 Refill [facility] [address] [place] [address] Dory Ray MD Chronic right-sided low back pain with right-sided sciatica 06/12/2024 Refill [facility] [address] [place] [address] Dory Ray MD Essential hypertension 06/05/[address] [address] Dory Ray MD Med Refill; Lorazepam from psychiatrist 05/30/[address] [address] Dory Ray MD No Show 05/28/[address] [address] Dory Ray MD Chart prep 05/22/[address] [address] Dory Ray MD Rescheduled chronic pain group appt 05/17/[address] [address] Dory Ray MD Chronic right-sided low back pain with right-sided sciatica 05/17/2024 Refill [facility] [address] [place] [address] Dory Ray MD Chronic right-sided low back pain with right-sided sciatica 05/16/[address] [address] Jeaneth Regalado, DARWIN LDCT referral 05/16/2024 Patient Outreach [address] [address] Dory Ray MD Pre-visit Planning (SDOH screening negative and tobacco screening positive) 05/15/2024 11:00 AM EST Office Visit [address] [address] Emilia De La Torre FNP Bulging lumbar disc (Primary Dx); Long-term current use of opiate analgesic; Fibromyalgia 05/15/2024 9:30 AM EST Office Visit [address] [phone] Dory Ray MD Adverse effect of diazepam, initial encounter (Primary Dx); Essential hypertension; Screening for lung cancer 05/15/2024 Refill [facility] [address] [place] [address] Dory Ray MD Chronic midline thoracic back pain; Neck pain 05/15/2024 Travel 05/14/2024 Orders Only GENERIC EXTERNAL DATA DEPARTMENT Provider, Generic External Data 05/14/2024 Telephone [facility] [address] [place] [address] Dustin Hickey MA Chart Prep 05/03/2024 Refill [facility] [address] [place] [address] Dory Ray MD Essential hypertension 04/17/2024 Telephone [facility] [address] [place] [address] Dustin Hickey MA Durable Medical Equipment 04/17/2024 Telephone [facility] [address] [place] [address] Dory Ray MD ER Follow-up 04/16/2024 Refill [facility] [address] [place] [address] Katerine Killian MD Chronic right-sided low back pain with right-sided sciatica 04/16/2024 Refill [facility] [address] [place] [address] Dory Ray MD 04/13/2024 Orders Only GENERIC EXTERNAL DATA DEPARTMENT Provider, Generic External Data 04/12/2024 Orders Only GENERIC EXTERNAL DATA DEPARTMENT Provider, Generic External Data 04/12/2024 Telephone [facility] [address] [place] [address] Dory Ray MD Nurse Triage 04/11/2024 Refill [facility] [address] [place] [address] Dory Ray MD Migraine without status migrainosus, not intractable, unspecified migraine type 04/10/2024 Refill [facility] [address] [place] [address] Dory Ray MD Chronic right-sided low back [...] EDT Office Visit [facility] [address] [place] [phone] 08/15/2024 9:00 AM EDT Office Visit [facility] [address] [place] [address] Dory Ray MD [address] [place] [address] Health Maintenance Due Date Last Done Comments [...] 01/10/2024, 01/10/20 Alcohol/Substance Use Screening 02/27/2025 02/28/2024 Tobacco Screening 05/15/2025 05/15/2024 SDOH Screening 05/16/2025 05/16/2024 Mammogram 06/27/2025 06/27/2024, 01/0 09/2024, 05/28/2023, Additional history exists Colorectal Cancer Screening 12/27/2025 [...] Associated Diagnosis Comments US PELVIS TRANSVAGINAL Routine 07/09/2024 1:02 PM EDT LDCT LUNG SCREENING Routine 06/29/2024 1 0:29 AM EDT HCG, TOTAL, QN Routine 06/28/2024 9:31 AM EDT BI MAMMOGRAM SCREENING TOMOSYNTHESIS BILATERAL Routine 06/27/2024 11:45 AM EDT LH Routine 06/26/2024 9:38 AM [...] QL NAAT Routine 04/12/2024 10:00 AM EST HPV MRNA E6/E7 REFLEX TO [...] Recently Relevant to Health Maintenance Results * US Pelvis Transvaginal (07/09/2024 1:02 PM EDT) Anatomical Region Laterality Modality Pelvis Ultrasound 07/09/2024 1:02 PM EDT Narrative 07/09/2024 2:07 PM EDT ? [facility] ?[address] ? [place] [address] ? Ultrasound Report ? Signed ? Patient: Kurt,Marlene ?MR#: [id number] ?? [id number] ? : 1975 ?Acct:[id number] ? Age/Sex: 48 / F ?ADM Date: 07/09/24 ? Loc: HO.HMGCX ? Attending Dr: Macho Sarkar MD ? Ordering Physician: Macho Sarkar MD ?? Date of Service: 07/09/24 ?? Procedure(s): US pelvic and transvaginal ?? Accession Number(s): [id number] ? cc: Dory Ray MD; Macho Sarkar MD ? EXAMINATION: ??US PELVIS TRANSABDOMINAL AND TRANSVAGINAL ? HISTORY: N83.299 - Other ovarian cyst, unspecified side ? COMPARISON: Comparison is made with the prior examination dated ?? 03/23/2024. ? TECHNIQUE: ? Transabdominal and endovaginal real-time 2D berry-scale ultrasound was ?? performed. ? FINDINGS: ? Uterus: ??The uterus is normal in size, measuring 8.9 x 4.0 x 5.4 cm. ? Myometrium has a normal echotexture. ??No fibroids are identified. ? Endometrium: ??The endometrial stripe measures 9 mm in thickness. ? Right ovary: ??The right ovary is not visualized. ? Left ovary: ?? The left ovary measures 2.6 x 1.8 x 2.4 cm. ??The left ?? ovary is normal in size and echotexture. The previously seen septated ?? cyst is no longer identified. ? Pelvic fluid: none. ? US/US pelvic and transvaginal ?? IMPRESSION: ?? The right ovary is not visualized. Otherwise unremarkable pelvic ?? ultrasound. The previously seen septated left ovarian cyst has resolved. ? Electronically signed by: ??Richard Willson MD ??07/09/2024 02:04 PM EDT ?? RP ? Dictated By: ?Richard Willson MD ? Signed By: ?<Electronically signed by Richard Willson MD in OV> ?07/09/24 1404 ? DD/ 1302 ? TD/TT: 07/09/24 1315 ? Coordinate Measuring Equipment Operator: ? Procedure Note Donotuseinterpreter, Image - 07/09/2024 [facility] [address] [place] [address] [place] [address] Ultrasound Report Signed Patient: Crissy Hicks#: [id number] : 1975Acct:[id number] Age/Sex: 48 / FADM Date: 07/09/24 Loc: HO.HMGCX Attending Dr: Macho Sarkar MD Ordering Physician: Macho Sarkar MD Date of Service: 07/09/24 Procedure(s): US pelvic and transvaginal Accession Number(s): [id number] cc: Dory Ray MD; Macho Sarkar MD EXAMINATION: US PELVIS TRANSABDOMINAL AND TRANSVAGINAL HISTORY: N83.299 - Other ovarian cyst, unspecified side COMPARISON: Comparison is made with the prior examination dated 03/23/2024. TECHNIQUE: Transabdominal and endovaginal real-time 2D berry-scale ultrasound was performed. FINDINGS: Uterus: The uterus is normal in size, measuring 8.9 x 4.0 x 5.4 cm. Myometrium has a normal echotexture. No fibroids are identified. Endometrium: The endometrial stripe measures 9 mm in thickness. Right ovary: The right ovary is not visualized. Left ovary: The left ovary measures 2.6 x 1.8 x 2.4 cm. The left ovary is normal in size and echotexture. The previously seen septated cyst is no longer identified. Pelvic fluid: none. US/US pelvic and transvaginal IMPRESSION: The right ovary is not visualized. Otherwise unremarkable pelvic ultrasound. The previously seen septated left ovarian cyst has resolved. Electronically signed by: Richard Willson MD 07/09/2024 02:04 PM EDT Dictated By: Richard Willson MD Signed By: <Electronically signed by Richard Willson MD in OV> 07/09/24 1404 DD/ 1302 TD/TT: 07/09/24 1315 Coordinate Measuring Equipment Operator: us [facility] External Provider IMG US PROCEDURES Final Result * CT Lung Screening Low dose (06/29/2024 10:29 AM EDT) Anatomical Region Laterality Modality Lung Computed Tomogra phy 06/29/2024 10:2 9 AM EDT Narrative 06/29/2024 11:37 AM EDT ? [facility] ?[address] ?[place], [place] [address] ? CT Scan Report ? Signed ? Patient: Marlene Hicks ?MR#: [id number] ?? [id number] ? : 1975 ?Acct:[id number] ? Age/Sex: 48 / F ?ADM Date: 06/29/24 ? Loc: HO.CT ? Attending Dr: Ella Gould PA-C ? Ordering Physician: Ella Gould PA-C ?? Date of Service: 06/29/24 ?? Procedure(s): CT lung screening ?? Accession Number(s): [id number] ? cc: Dory Ray MD; Ella Gould PA-C ? Report Number: ?? [id number]: Total DLP = ?? 43.00 mGy-cm ?? EXAMINATION: ??CT LUNG SCREENING ? HISTORY: Smoking history ? TECHNIQUE: Low dose axial images were obtained from the sternal notch ?? to upper abdomen without IV contrast per standard departmental ?? protocol. ??Sagittal and coronal reformatted images were also obtained ?? and reviewed. ??One or more of the following techniques was used for ?? dose reduction: Automated exposure control, adjustment of the mA and/or ?? kV according to patient size, use of iterative reconstruction technique. ? DLP: 43 mGy-cm ? COMPARISON: ??Comparison is made with the prior examination dated ?? 05/27/2020. ? FINDINGS: ? Lung nodules: There are tiny 1-2 mm nodules of the right upper lobe ?? (series 4, images 27 and 37). No additional pulmonary nodules are ?? identified. ? Emphysema: none ? Coronary Calcification: ??none ? Aortic Arch Calcification: ??none ? Potentially Significant Incidentals : none ? Additional Chest Findings: There is no pleural or pericardial effusion. ?? No mediastinal or axillary lymphadenopathy is identified. ? Visualized upper abdomen: The visualized portions of the liver, spleen, ?? and adrenals have an unremarkable unenhanced appearance. ? CT/CT lung screening ?? IMPRESSION: ?? No suspicious pulmonary nodules are identified. ? LUNG-RADS ASSESSMENT: ?? Lung-RADS 2: Benign ? MANAGEMENT: ?? Continue annual screening with LDCT in 12 months ? Category S: N/A ? Electronically signed by: ??Richard Willson MD ??06/29/2024 11:34 AM EDT ? Dictated By: ?Richard Willson MD ? Signed By: ?<Electronically signed by Richard Willson MD in OV> ?06/29/24 1134 ? DD/ 1029 ? TD/TT: 06/29/24 1035 ? Coordinate Measuring Equipment Operator: ? Procedure Note Rosemary Kang - 06/29/[address] [place] [address] [address] Scan Report Signed Patient: Crissy Hicks#: [id number] : 1975Acct:[id number] Age/Sex: 48 / FADM Date: 06/29/24 Loc: HO.CT Attending Dr: Ella Gould PA-C Ordering Physician: Ella Gould PA-C Date of Service: 06/29/24 Procedure(s): CT lung screening Accession Number(s): [id number] cc: Dory Ray MD; Ella Gould PA-C Report Number: [id number]: Total DLP = 43.00 mGy-cm EXAMINATION: CT LUNG SCREENING HISTORY: Smoking history TECHNIQUE: Low dose axial images were obtained from the sternal notch to upper abdomen without IV contrast per standard departmental protocol. Sagittal and coronal reformatted images were also obtained and reviewed. One or more of the following techniques was used for dose reduction: Automated exposure control, adjustment of the mA and/or kV according to patient size, use of iterative reconstruction technique. DLP: 43 mGy-cm COMPARISON: Comparison is made with the prior examination dated 05/27/2020. FINDINGS: Lung nodules: There are tiny 1-2 mm nodules of the right upper lobe (series 4, images 27 and 37). No additional pulmonary nodules are identified. Emphysema: none Coronary Calcification: none Aortic Arch Calcification: none Potentially Significant Incidentals : none Additional Chest Findings: There is no pleural or pericardial effusion. No mediastinal or axillary lymphadenopathy is identified. Visualized upper abdomen: The visualized portions of the liver, spleen, and adrenals have an unremarkable unenhanced appearance. CT/CT lung screening IMPRESSION: No suspicious pulmonary nodules are identified. LUNG-RADS ASSESSMENT: Lung-RADS 2: Benign MANAGEMENT: Continue annual screening with LDCT in 12 months Category S: N/A Electronically signed by: Richard Willson MD 06/29/2024 11:34 AM EDT RP Dictated By: Richard Willson MD Signed By: <Electronically signed by Richard Willson MD in OV> 06/29/24 1134 DD/ 1029 TD/TT: 06/29/24 1035 Coordinate Measuring Equipment Operator: [facility] External Provider IMG CT PROCEDURES Final Result * hCG, Total, Quantitative (06/28/2024 9:31 AM EDT) Only the most recent of2 resultswithin the time period is included. HCG Quantitative 6 mIU/mL [facility] Comment:Weeks post LMP Appro ximate hCG(Last Menstrual Period) Range (mIU/ml)3 - 4 weeks 9 - 1304 - 5 weeks 75 - 2,6005 - 6 weeks 850 - 20,8006 - 7 weeks 4000 - 100,2007 - 12 weeks 11,500 - 289,70880 - 16 weeks 18,300 - 137,10913 - 29 weeks (2nd trimester) 1,400 - 53,31613 - 41 weeks (3rd trimester) 940 - 60,000The Albright B- hCG assay is used for the early detection ofpregnancy; it cannot be used to diagnose any conditionunrelated to . If a B-hCG level is not supportedby the clinical evidence, results should be confirmed by analternative method (qualitative urine hCG, for example). 06/28/2024 9:31 AM EDT 06/28/2024 9:31 AM EDT us Generic External Data Provider LAB BLOOD ORDERAB LES Final Result [facility] [address] [place] [address] [phone] * BI Mammogram Screening Tomosynthesis Bilateral (06/27/2024 11:45 AM EDT) Anatomical Region Laterality Modality Breast Bilateral Mammography 06/27/2024 11:4 5 AM EDT Narrative 07/03/2024 5:46 PM EDT ? [facility] ? [address] ?[place] [address] ?[phone] ? Mammography Report ? Signed ? Patient: Marlene Hicks ?MR#: [id number] ?? [id number] ? : 1975 ?Acct:[id number] ? Age/Sex: 48 / F ?ADM Date: 03/26/25 ? Loc: HO.MAMMO ? Attending Dr: Dory Wen MD ? Ordering Physician: Dory Ray MD ?Results: ?? 1Negative ? Date of Service: 06/27/24 ?Follow Up: 1 Year From Orig ?? inal Mammogram ? Procedure(s): MM tomosynthesis screening BI ?? Accession Number(s): [id number] ? cc: Dory Ray MD ? EXAMINATION: ?? MM SCREENING DIGITAL BREAST TOMOSYNTHESIS, BILATERAL ? CLINICAL INFORMATION: ? Screening. Asymptomatic. ??Strong family history of breast cancer ?? including sister in her 50s. ? COMPARISON: ?? Mammography: Comparison is made with available priors ? TECHNIQUE: ?? Digital breast mammography with tomosynthesis is performed in both the ?? craniocaudal and mediolateral oblique views along with computer-aided ?? detection (CAD). ? FINDINGS: ?? The breasts are heterogeneously dense, which may obscure small masses ?? (ACR BI-RADS breast composition Category c). ? There are no significant masses, abnormal calcifications, or other ?? abnormalities. ? MM/MM tomosynthesis screening BI ?? IMPRESSION: ?? No mammographic evidence of malignancy. ? ASSESSMENT: ? BI-RADS BI-RADS 1 - Negative ? RECOMMENDATION: ?? Routine annual mammography screening. ? 1 year F/U ? This examination should not preclude the clinical evaluation of a ?? suspicious palpable abnormality. ? This patient's information was entered into a reminder system with a ?? target due date for their next mammogram. ? Electronically signed by: ??Saranya Miyacyrus DO ??07/03/2024 05:43 PM EDT ?? RP ? Dictated By: ?Saranya Montero DO ? Signed By: ?<Electronically signed by Saranya Montero, DO in OV> ? 07/03/24 1743 ? DD/ 1145 ? TD/TT: 06/27/24 1200 ? Coordinate Measuring Equipment Operator: ? Procedure Note Jorge Luis, Image - 07/03/2024 [facility] [address] [place] [address] Mammography Report Signed Patient: Crissy Hicks#: [id number] : 1975Acct:[id number] Age/Sex: 48 / FADM Date: 06/27/24 Loc: HO.MAMMO Attending Dr: Dory Wen MD Ordering Physician: Dory Ray MDResults: 1Negative Date of Service: 06/27/24Follow Up: 1 Year From Orig inal Mammogram Procedure(s): MM tomosynthesis screening BI Accession Number(s): [id number] cc: Dory Ray MD EXAMINATION: MM SCREENING DIGITAL BREAST TOMOSYNTHESIS, BILATERAL CLINICAL INFORMATION: Screening. Asymptomatic. Strong family history of breast cancer including sister in her 50s. COMPARISON: Mammography: Comparison is made with available priors TECHNIQUE: Digital breast mammography with tomosynthesis is performed in both the craniocaudal and mediolateral oblique views along with computer-aided detection (CAD). FINDINGS: The breasts are heterogeneously dense, which may obscure small masses (ACR BI-RADS breast composition Category c). There are no significant masses, abnormal calcifications, or other abnormalities. MM/MM tomosynthesis screening BI IMPRESSION: No mammographic evidence of malignancy. ASSESSMENT: BI-RADS BI-RADS 1 - Negative RECOMMENDATION: Routine annual mammography screening. 1 year F/U This examination should not preclude the clinical evaluation of a suspicious palpable abnormality. This patient's information was entered into a reminder system with a target due date for their next mammogram. Electronically signed by: Saranya Montero DO 07/03/2024 05:43 PM EDT Dictated By: Saranya Montero DO Signed By: <Electronically signed by Saranya Montero DO in OV> 07/03/24 1743 DD/ 1145 TD/TT: 06/27/24 1200 Coordinate Measuring Equipment Operator: us Dory Wen MD IMG BI PROCEDURES Fin al Result * Syphilis Screen (06/26/2024 9:38 AM EDT) Syphilis Screen Nonreactive Nonreactive [facility] 06/26/2024 9:38 AM EDT 06/26/2024 9:38 AM EDT Generic External Data Provider LAB BLOOD ORDERAB LES Final Result Performing Organization Address [facility] Co de Phone Number [facility] [address] [place] [phone] * Hepatitis C Ab (06/26/2024 9:38 AM EDT) Pathologist [facility] Hepatitis C Antibody Nonreactive Nonreactive [facility] Comment:Antibodies to HCV no t detected; does not exclude early acuteHCV infection. 06/26/2024 9:38 AM EDT 06/26/2024 9:38 AM EDT Generic External Data Provider LAB BLOOD ORDERAB LES Final Result Performing Organization Address [facility] Co de Phone Number [facility] [address] [place] [phone] * TSH with Reflex to Free T4 (06/26/2024 9:38 AM EDT) Pathologist [facility] TSH reflex Free T4 2.29 0.32 - 4.0 uIU/mL [facility] 06/26/2024 9:38 AM EDT 06/26/2024 9:38 AM EDT Generic External Data Provider LAB BLOOD ORDERAB LES Final Result Performing Organization Address [facility] de Phone Number [facility] [address] [place] [phone] * Hepatitis B surface antigen, EIA (06/26/2024 9:38 AM EDT) Hepatitis B Surface Ag Negative Negative [facility] 06/26/2024 9:38 AM EDT 06/26/2024 9:38 AM EDT us Generic External Data Provider LAB BLOOD ORDERAB LES Final Result Performing Organization Address [facility] Co de Phone Number [facility] [address] [place] [phone] * HIV-1/2 Antigen and Antibodies, Fourth Generation, with Reflexes (06/26/2024 9:38 AM EDT) Pathologist [facility] HIV AB/AG Nonreactive Nonreactive [facility] Comment:HIV-1 p24 Ag and/or HIV-1/HIV-2 Ab not detected.A test result that is nonreactive does not exclude thepossibility of exposure to or infection with HIV-1 and/orHIV-2. Nonreactive results in this assay for individualswith prior exposure to HIV-1 and/or HIV-2 may be due toantigen and antibody levels that are below the limit ofdetection of this assay.The [employer] HIV Ag/Ab Combo assay result andsupplemental assay results should be interpreted inconjunction with the patient's clinical presentation,history and other laboratory results. If the results areinconsistent with clinical evidence, additional testing issuggested to confirm the result. 06/26/2024 9:38 AM EDT 06/26/2024 9:38 AM EDT us Generic External Data Provider LAB BLOOD ORDERAB LES Final Result Performing Organization Address City/[facility]/ZIP Co de Phone Number [facility] [address] [place] [phone] * CBC (06/26/2024 9:38 AM EDT) Pathologist [facility] White Blood Count 6.5 4.8 - 10.8 X10*3/uL [facility] Red Blood Count 4.30 4.20 - 5.50 X10*6/uL [facility] Hemoglobin 13.4 12.0 - 16.0 g/dl [facility] Hematocrit 39.2 37.0 - 47.0 % [facility] Mean Corpuscular Volume 91.2 80.0 - 98.0 fL [facility] Mean Corpuscular Hemoglobin 31.2 27.0 - 33.0 pg [facility] Mean Corpuscular HGB Conc 34.2 31.0 - 35.0 g/dl [facility] Red Cell Distribution Width 13.2 11.0 - 16.0 % [facility] Platelet Count 306 160 - 400 X10*3/uL [facility] Mean Platelet Volume 9.8 9.4 - 12.3 fL [facility] NRBC Pct Auto 0.0 0.0 - 0.2 /100WBC [facility] NRBC Abs Auto 0.000 0.0 - 0.012 X10*3/uL [facility] 06/26/2024 9:38 AM EDT 06/26/2024 9:38 AM EDT us Generic External Data Provider LAB BLOOD ORDERAB LES Final Result Performing Organization Address [facility]/ZIP Co de Phone Number [facility] [address] [place] [phone] * LH (06/26/2024 9:38 AM EDT) Lutenizing Hormone 27.5 mIU/mL [facility] Comment:Reference Range Foll icular Phase 1.9-12.5 Mid-Cycle Peak 8.7-76.3 Luteal Phase 0.5-16.9 Postmenopausal 10.0-54.7THIS TEST WAS PERFORMED AT:[facility] [place] [id number] WONG MD 06/26/2024 9:38 AM EDT 06/26/2024 9:38 AM EDT us Generic External Data Provider LAB BLOOD ORDERAB LES Final Result Performing Organization Address City/[facility]/ZIP Co de Phone Number [facility] [address] [place] [phone] * FSH (06/26/2024 9:38 AM EDT) Follicle Stimulating Hormone 58.1 mIU/mL [facility] Comment:Reference Range Foll icular Phase 2.5-10.2 Mid-cycle Peak 3.1-17.7 Luteal Phase 1.5- 9.1 Postmenopausal 23.0-116.3THIS TEST WAS PERFORMED AT:[facility] [place] [phone] WONG MD 06/26/2024 9:38 AM EDT 06/26/2024 9:38 AM EDT Generic External Data Provider LAB BLOOD ORDERAB LES Final Result [facility] [address] [place] [phone] * POCT MARÍA-14 Urine Drug Screen (05/15/2024 2:27 PM EST) Benzodiazepines Screen, Urine Positive Urine Urine specimen obtained by clean catch procedure / Unknown 05/15/2024 2:27 PM EST Narrative Danyell Garrett RN - 05/15/2024 2:27 PM EST .UTOX cup Lot#[id number] Exp. 12/27/25 Internal Pass Control Emilia SALAZAR POINT OF CARE TEST ENTER/EDIT ORDERABLES Final Result * Hematoxylin and Eosin Stain (05/14/2024 9:56 AM EST) 05/14/2024 9:56 AM EST 05/15/2024 6:10 AM EST Narrative [facility] - 05/17/2024 11:01 AM EST ----- ------- Name: Marlene Hicks ? Age/Sex: 48/F ? : 1975 Unit#: [id number] ?? Attend Dr: Macho Sarkar MD ?Re05/14/24 ?Status: DEP REF ? Location: HO.LNP ?Disch: ? ----- ------- SPEC : [id number] ?RECD: 05/15/24 ? STATUS: ??SOUT ? REQ NUM: [id number] ? TREVON: 05/14/24 ? SUBM DR: Macho [...] microscopic examination, multiple pieces in cassette [facility] Copies To: ?? Dory Ray MD ?? [facility] ?? [address] ?? [place] [address] ?? [phone] ?? Macho Sarkar MD ?? [facility] ?? [address] ?? [place] [address] ?? [phone] ----- ------- Signed (signature on file) Galen Booker MD 05/17/241100 ? ----- ------- ? END OF REPORT ? us Generic External Data Provider LAB BLOOD ORDERAB LES Final Result [facility] [address] [place] [address] [phone] * Chlamydia/N. Gonorrhoeae RNA, TMA, Urogenitial (05/14/2024 9:34 AM EST) CT PCR NOT DETECTED Not Detect. [facility] Comment:A not detected test result [...] psychologicalconsequences. NG PCR NOT DETECTED Not Detect. [facility] Comment:A not detected test result [...] AM EST 05/14/2024 3:23 PM EST Narrative [facility] - 05/15/2024 5:56 AM EST Vaginal us Generic External Data Provider LAB MICROBIOLOGY - GENERAL ORDERABLES Final Result Performing Organization Address [facility] de Phone Number [facility] [address] [place] [phone] * Culture, Urine, Routine (05/14/2024 9:34 AM EST) Urine Urine specimen obtained by clean catch procedure / Unknown 05/14/2024 9:34 AM EST 05/14/2024 3:23 PM EST Comment:UACC Narrative [facility] - 05/16/2024 10:49 AM EST Urine Culture No growth. Specimen Source: Urine clean catch Generic External Data Provider LAB MICROBIOLOGY - GENERAL ORDERABLES Final Result Performing Organization Address [facility] de Phone Number [facility] [address] [place] [address] [phone] * MR Brain w/o Contrast (04/14/2024 1:23 PM EST) Anatomical Region Laterality Modality Brain Magnetic Resonan ce 04/14/2024 1:23 PM EST Narrative 04/14/2024 1:25 PM EST ? [facility] ?[address] ?[place] [address] ? Magnetic Resonance Report ? Signed ? Patient: Kurt,Marlene ?MR#: [id number] ?? [id number] ? : 1975 ?Acct:[id number] ? Age/Sex: 48 / F ?ADM Date: 01/10/25 ? Loc: HO.IMC ?453-1 ? Attending Dr: Rohini STOCKTON ? Ordering Physician: Nader Stringer MD ?? Date of Service: 04/13/24 ?? Procedure(s): MR head/brain wo con ?? Accession Number(s): [id number] ? cc: Dory Ray MD; Nader Stringer MD ? CLINICAL HISTORY: slurred speech ? MR Brain without gadolinium ? Comparison: CT/SR - CT HEAD FOR STROKE - 04/13/24 17:26 EST ?? MR - MRI BRAIN O [id number] - 06/07/06 00:00 EST ? Findings: ?? [...] DD/ 1323 ? TD/TT: 04/14/24 1323 ? Coordinate Measuring Equipment Operator: ? Procedure Note Jorge Luis, Image - 04/14/2024 [place] [address] Magnetic Resonance Report Signed Patient: Crissy Hicks#: [id number] : 1975Acct:[id number] Age/Sex: 48 / FADM Date: 04/13/24 Loc: [facility] 453-[address]: Rohini STOCKTON Ordering Physician: Nader Stringer MD Date of Service: 04/13/24 Procedure(s): MR head/brain wo con Accession Number(s): [id number] cc: Dory Ray MD; Nader Stringer MD CLINICAL HISTORY: slurred speech MR Brain without gadolinium Comparison: CT/SR - CT HEAD FOR STROKE - 04/13/24 17:26 EST MR - MRI BRAIN O [id number] - 06/07/06 00:00 EST Findings: No restricted [...] 04/14/24 1324 DD/ 1323 TD/TT: 04/14/24 1323 Coordinate Measuring Equipment Operator: [facility] External Provider IMG MRI PROCEDURES Edited Result - Final * CTA Head Stroke w/ and w/o Contrast (04/13/2024 7:07 PM EST) Anatomical Region Laterality Modality Computed Tomogra phy 04/13/2024 7:07 PM EST Narrative 04/13/2024 7:08 PM EST ? [facility] ?[address] ?[place] [address] ? CT Scan Report ? Signed ? Patient: KurtMarlene ?MR#: [id number] ?? [id number] ? : 1975 ?Acct:[id number] ? Age/Sex: 48 / F ?ADM Date: 04/13/24 ? Loc: HO.ED ? Attending Dr: ? Ordering Physician: Thuy Duffy DO ?? Date of Service: 04/13/24 ?? Procedure(s): CT angio head neck STROKE ?? Accession Number(s): [id number] ? cc: Dory Ray MD; Thuy Duffy DO ? Report Number: ?? [id number]: Total DLP = 1542.00 mGy-cm ? CLINICAL HISTORY: aphasia ? CT angiography head and neck with contrast and CT venogram of the head. 3D ?? Postprocessing. ? Comparison: CR/SR - NECK SOFT TISSUE [id number] - 09/08/18 23:26 EDT ? Findings: ?? [...] ? DD/ 06 ? TD/TT: 04/13/241906 ? Coordinate Measuring Equipment Operator: ? Procedure Note Donotuseinterpreter, Image - 04/13/[address] [address] [address] Scan Report Signed Patient: Crissy Hicks#: [id number] : 1975Acct:[id number] Age/Sex: 48 / FADM Date: 04/13/24 Loc: HO.ED Attending Dr: Ordering Physician: Thuy Duffy DO Date of Service: 04/13/24 Procedure(s): CT angio head neck STROKE Accession Number(s): [id number] cc: Dory Ray MD; Thuy Duffy DO Report Number: [id number]: Total DLP = 1542.00 mGy-cm CLINICAL HISTORY: aphasia CT angiography head and neck with contrast and CT venogram of the head. 3D Postprocessing. Comparison: CR/SR - NECK SOFT TISSUE [id number] - 09/08/18 23:26 EDT Findings: Evaluation is [...] in OV> 04/13/241906 DD/ 06 TD/TT: 04/13/241906 Coordinate Measuring Equipment Operator: [facility] External Provider IMG CT PROCEDURES Final Result * (ABNORMAL) Urinalysis, Complete, with Reflex to Culture (04/13/2024 6:20 PM EST) Color Urine Yellow [facility] Appearance Urine Clear [facility] PH 7.0 5.0 - 9.0 [facility] Glucose Urine UA Negative Negative mg/dL [facility] Urine Blood Large (3+)(A) Negative [facility] Specific [place] - Urine 1.015 1.005 - 1.025 [facility] Urine Protein Negative Neg-Trace mg/dL [facility] Urine Ketones Negative Negative mg/dL [facility] Nitrite Urine Negative Negative [facility] Leukocyte Esterase Urine Trace(A) Negative [facility] RBC Urine >20(A) 0 - 2 /HPF [facility] Urine WBC 0-5 0 - 5 /HPF [facility] Urine Squamous Epithelial Cell 0-2 0 - 2 /HPF [facility] Urine Bacteria None Seen None Seen [facility] Hyaline Casts, Urine 0-2 0 - 2 /LPF [facility] 04/13/2024 6:20 PM EST 04/13/2024 6:23 PM EST Narrative [facility] - 04/13/2024 6:45 PM EST [id number], Clean Catch Generic External Data Provider LAB URINE ORDERAB LES Final Result [facility] [address] [place] [phone] * Drug Monitoring, Panel 1, Screen, Urine (04/13/2024 6:20 PM EST) Opiate Screen Urine Not Detected Not Detect [facility] Comment:Opiate cut-off is 30 0 ng/mL.Positive results are unconfirmed and should not be used fornon-medical purposes. Barbiturates, Urine Not Detected Not Detect [facility] Comment:Barbiturate cut-off is 200 ng/mL.Positive results are unconfirmed and should not be used fornon-medical purposes. Phencyclidine Screen Urine Not Detected Not Detect [facility] Comment:Phencyclidine cut-of f is 25 ng/mL.Positive results are unconfirmed and should not be used fornon-medical purposes. Amphetamine Screen Urine Not Detected Not Detect [facility] Comment:Amphetamine cut-off is 1000 ng/mL.Positive results are unconfirmed and should not be used fornon-medical purposes. Benzodiazepines Screen Urine Not Detected Not Detect [facility] Comment:Benzodiazepine cut-o ff is 200 ng/mL.Positive results are unconfirmed and should not be used fornon-medical purposes. Cocaine Screen Urine Not Detected Not Detect [facility] Comment:Cocaine cut-off is 3 00 ng/mL.Positive results are unconfirmed and should not be used fornon-medical purposes. Cannabinoid Screen Urine Not Detected Not Detect [facility] Comment:Cannabinoid cut-off is 50 ng/mL.Positive results are unconfirmed and should not be used fornon-medical purposes. Methadone Screen, Urine Not Detected Not Detect ng/mL [facility] Comment:Methadone cut-off is 300 ng/mL.Positive results are unconfirmed and should not be used fornon-medical purposes. FENTANYL URINE Not Detected Not Detect [facility] Comment:Fentanyl cut-off is 1 ng/mL.Positive results are unconfirmed and should not be used fornon-medical purposes. Oxycodone Urine Screen Not Detected Not Detect ng/mL [facility] Comment:Oxycodone cut-off is 100 ng/mL.Positive results are unconfirmed and should not be used fornon-medical purposes. Buprenorphine Screen Not Detected Not Detect ng/mL [facility] Comment:Buprenorphine cut-of f is 5 ng/mL.Positive results are unconfirmed and should not be used fornon-medical purposes. 04/13/2024 6:20 PM EST 04/13/2024 6:23 PM EST Generic External Data Provider LAB URINE ORDERAB LES Final Result Performing Organization Address [facility] Co de Phone Number [facility] [address] [place] [phone] * High Sensitivity Troponin I (04/12/2024 10:00 AM EST) Pathologist [facility] TROPONIN I HIGH SENSITIVITY <2.7 <3.5 - 17.0 ng/L [facility] Comment:The [place] high sens itivity Troponin-I results should beused in conjunction with other diagnostic information suchas ECG, clinical observations and information, and patientsymptoms to aid in the diagnosis of ND. 04/12/2024 10:0 0 AM EST 04/12/2024 10:04 AM EST Generic External Data Provider LAB BLOOD ORDERAB LES Final Result Performing Organization Address [facility] de Phone Number [facility] [address] [place] [phone] * SARS-CoV-2 RNA, Influenza A/B, and RSV RNA, Ql NAAT (04/12/2024 10:00 AM EST) [facility] Influenza A PCR NEGATIVE Negative [facility] Influenza B PCR NEGATIVE Negative [facility] Resp Syncy Virus RNA Qual PCR NEGATIVE Negative [facility] SARS COV2 PCR NEGATIVE Negative [facility] Comment:All test results mus [...] use by authorized laboratories.Testing performed on the [employer]ro[employer] GeneXpert utilizingreal-time RT-PCR.All SARS CoV2 and positive influenza A/B results arereported to [facility]. 04/12/2024 10:0 0 AM EST 04/12/2024 10:04 AM EST us Generic External Data Provider LAB MICROBIOLOGY - GENERAL ORDERABLES Final Result [facility] [address] [place] [phone] * (ABNORMAL) CBC auto differential (04/12/2024 10:00 AM EST) White Blood Count 8.3 4.8 - 10.8 X10*3/uL [facility] Red Blood Count 3.82(L) 4.20 - 5.50 X10*6/uL [facility] Hemoglobin 12.1 12.0 - 16.0 g/dl [facility] Hematocrit 35.4(L) 37.0 - 47.0 % [facility] Mean Corpuscular Volume 92.7 80.0 - 98.0 fL [facility] Mean Corpuscular Hemoglobin 31.7 27.0 - 33.0 pg [facility] Mean Corpuscular HGB Conc 34.2 31.0 - 35.0 g/dl [facility] Red Cell Distribution Width 13.8 11.0 - 16.0 % [facility] Platelet Count 273 160 - 400 X10*3/uL [facility] Mean Platelet Volume 9.2(L) 9.4 - 12.3 fL [facility] Neutrophils Percent Auto 59.7 45 - 73 % [facility] Imm Gran Pct Auto 0.5(H) 0.0 - 0.4 % [facility] Lymphocytes Percent Auto 31.5 20 - 40 % [facility] Monocytes Percent Auto 6.6 2 - 11 % [facility] Eosinophils Percent Auto 1.2 0 - 4 % [facility] Basophils Percent Auto 0.5 0 - 2 % [facility] NRBC Pct Auto 0.0 0.0 - 0.2 /100WBC [facility] Neutrophils Absolute Auto 4.9 2.0 - 8.3 x10*3/uL [facility] Imm Gran Abs Auto 0.04(H) 0.00 - 0.03 X10*3/uL [facility] Lymphocytes Absolute Auto 2.6 1.2 - 4.9 X10*3/uL [facility] Monocytes Absolute Auto 0.6 0.1 - 1.2 X10*3/uL [facility] Eosinophils Absolute Auto 0.1 0.0 - 0.4 X10*3/uL [facility] Basophils Absolute Auto 0.0 0.0 - 0.2 X10*3/uL [facility] NRBC Abs Auto 0.000 0.0 - 0.012 X10*3/uL [facility] 04/12/2024 10:0 0 AM EST 04/12/2024 10:04 AM EST us Generic External Data Provider LAB BLOOD ORDERAB LES Final Result Performing Organization Address City/State/[facility] Co de Phone Number [facility] [address] [place] [phone] * XR Chest 2 Views (04/12/2024 10:00 AM EST) Anatomical Region Laterality Modality Chest Radiographic [place] 04/12/2024 10:0 0 AM EST Narrative 04/12/2024 10:17 AM EST ? [facility] ?[address] ?[place] [address] ?XRay Report ? Signed ? Patient: Kurt,Marlene ?MR#: [id number] ?? [id number] ? : 1975 ?Acct:[id number] ? Age/Sex: 48 / F ?ADM Date: 01/09/25 ? Loc: HO.ED ? Attending Dr: ? Ordering Physician: Thuy Duffy DO ?? Date of Service: 04/12/24 ?? Procedure(s): XR chest 2V ?? Accession Number(s): [id number] ? cc: Dory Ray MD; Thuy Duffy [...] DD/ 1000 ? TD/TT: 04/12/24 1005 ? Coordinate Measuring Equipment Operator: ? Procedure Note Codyter, Image - 04/12/2024 [place] [address] XRay Report Signed Patient: Crissy Hicks#: [id number] : 1975Acct:[id number] Age/Sex: 48 / FADM Date: 04/12/24 Loc: HO.ED Attending Dr: Ordering Physician: Thuy Duffy DO Date of Service: 04/12/24 Procedure(s): XR chest 2V Accession Number(s): [id number] cc: Dory Ray MD; Thuy Duffy DO [...] 04/12/24 1011 DD/ 1000 TD/TT: 04/12/24 1005 Coordinate Measuring Equipment Operator: [facility] External Provider IMG XR PROCEDURES Final Result * (ABNORMAL) Prothrombin Time-INR (04/12/2024 10:00 AM EST) Prothrombin Time 10.4(L) 10.9 - 12.4 SEC [facility] INTERNATIONAL NORM RATIO 0.9 0.9 - 1.1 [facility] Comment:INTERNATIONAL NORMAL IZED RATIO (INR) [...] ORDERAB LES Final Result Performing Organization Address [facility] Co de Phone Number [facility] [address] [place] [phone] * Magnesium (04/12/2024 10:00 AM EST) Magnesium 2.0 1.6 - 2.6 mg/dL [facility] 04/12/2024 10:0 0 AM EST 04/12/2024 10:04 AM EST Generic External Data Provider LAB BLOOD ORDERAB LES Final Result Performing Organization Address [facility] Co de Phone Number [facility] [address] [place] [phone] * Hepatic Function Panel (04/12/2024 10:00 AM EST) Bilirubin, Total 0.1 0.0 - 1.0 mg/dL [facility] Bilirubin, Direct <0.2 0.0 - 0.5 mg/dL [facility] Aspartate Amino Transferase 16 5 - 31 U/L [facility] Alanine Aminotransferase 14 0 - 31 U/L [facility] Total Protein 7.3 6.5 - 8.0 g/dL [facility] Albumin Level 4.0 3.5 - 5.0 g/dL [facility] Alkaline Phosphatase 49 39 - 117 U/L [facility] 04/12/2024 10:0 0 AM EST 04/12/2024 10:04 AM EST us Generic External Data Provider LAB BLOOD ORDERAB LES Final Result [facility] [address] [place] [phone] * (ABNORMAL) Basic Metabolic Panel (04/12/2024 10:00 AM EST) Sodium 140 135 - 145 mmol/L [facility] Potassium 3.9 3.3 - 5.1 mmol/L [facility] Chloride 106 96 - 108 mmol/L [facility] Carbon Dioxide 28 22 - 29 mmol/L [facility] Anion Gap 10(L) 12 - 20 [facility] Urea Nitrogen (BUN) 9 9 - 16 mg/dL [facility] Creatinine, Serum 0.70 0.5 - 1.4 mg/dL [facility] Creatinine Clr Calc Pharmacy 97.0 [facility] Comment:Provided height and weight: 172.72 cm,72.2 kg.eGFR (calculated from the MDRD study equation) and eCrCl(calculated from the Cockcroft-Gault equation) are based ondifferent parameters and may not yield comparable results.If eCrCl result is absurd, please check patient'sheight/weight. Estimated Glomerular Filt Rate >60 [facility] Comment:Chronic Kidney Disea se: Estimated GFR < 60 mL/min/1.24g0Dyrpgs Kidney Disease: Estimated GFR < 15 mL/min/1.73m2 Glucose 110 60 - 115 mg/dL [facility] Calcium 9.3 8.4 - 10.2 mg/dL [facility] 04/12/2024 10:0 0 AM EST 04/12/2024 10:04 AM EST Generic External Data Provider LAB BLOOD ORDERAB LES Final Result Performing Organization Address [facility]/ZIP Co de Phone Number [facility] [address] [place] [phone] * HPV mRNA E6/E7 w/Reflex to HPV Genotypes 16, 18/45 (07/19/2023 9:21 AM EDT) HPV nRNA E6/E7 Not Detected Not Detected [facility] Comment:Methodology: Transcr iption-Mediated AmplificationThis assay detects E6/E7 viral messenger RNA (mRNA) from 14high-risk HPV types (16,18,31,33,35,39,45,51,52,56,58,59,66,68).Cervical sources are required for HPV testing.If a vaginal source from a patient who has had atotal hysterectomy with removal of cervix wassubmitted, please contact the testing laboratoryfor alternative testing options.For additional information, please refer tohttp://education.PayLease/faq/EBV556g3(This link if provided for information/educational purposes only.)THIS TEST WAS PERFORMED AT:[facility] [place] [phone] WONG MD HPV mRNA E6/E7 TNP [facility] HPV 16 RNA TNP [facility] HPV 18/45 RNA [facility] 07/19/2023 9:21 AM EDT 07/20/2023 9:05 AM EDT Generic External Data Provider LAB CYTOLOGY ORDE RABLES Final Result Performing Organization Address [facility]/ZIP Co de Phone Number [facility] [address] [place] [phone] * (ABNORMAL) Lipid Panel, Standard (06/16/2023 10:01 AM EDT) Triglycerides 107 <150 mg/dL [facility] Comment:Desirable Triglyceri de: less than 150 mg/dLBorderline High Triglyceride 150-199 mg/dLHigh Triglyceride: 200-499 mg/dLVery High Triglyceride: greater than or equal to 5OO mg/dL Cholesterol 191 <200 mg/dL [facility] Comment:Desirable Cholestero l: less than 200 mg/dLBorderline High Cholesterol: 200-239 mg/dLHigh Cholesterol: greater than 239 mg/dL LDL Cholesterol Calculated 137(H) <100 mg/dL [facility] Comment:Desirable LDL: less than 100 mg/dLNear Optimal/Above Optimal LDL: 110- 129 mg/dLBorderline High LDL: 130-159 mg/dLHigh LDL: 160-189 mg/dLVery High LDL: greater than or equal to 190 mg/dL HDL Cholesterol 33(L) >40 mg/dL [facility] Comment:Desirable HDL: great er than 40 mg/dL Note: This HDL assay may give artificially low results in patients with liver disease. Blood Venous blood specimen / Unknown 06/16/2023 10:01 AM EDT 06/16/2023 11:27 AM EDT us Dory Wen MD LAB BLOOD ORDERABLES Final Result [facility] [address] [place] [phone] * Pap Smear (02/21/2023 2:25 PM EST) 02/21/2023 2:25 PM EST 02/22/2023 10:30 AM EST Narrative [facility] - 03/07/2023 8:53 PM EST ----- ------- Name: Marlene Hicks ? Age/Sex: 47/F ? : 1975 Unit#: [id number] ?? Attend Dr: Macho Sarkar MD ?Re02/21/23 ?Status: DEP REF ? Location: HO.LNP ?Disch: ? ----- ------- SPEC : [id number] ?RECD: 02/22/230 ? STATUS: ??SOUT ? REQ NUM: [id number] ? TREVON: 02/21/23-8544 ? SUBM DR: Macho Sarkar MD ? [...] 66, 68) ?? HPV testing performed by [facility] [place], [place]. ??See reference laboratory ?? portion of the EMR for entire report. ?Clinical Information LMP: Postmenopausal Previous PAP test: Unknown date/findings Other history: Abnormal uterine and vaginal bleeding. ? Material Received ?? ThinPrep-Cervical Copies To: ?? Dory Ray MD ?? [address] ?? [place] [address] ?? [phone] ?? Macho Sarkar MD ?? [address] [place] [address] Dr. Zuluaga [facility] ?? [place] [address] ?? [phone] ----- ------- Signed (signature on file) Abbie Saunders MD 03/07/232052 ? ----- ------- ? END OF REPORT ? us Generic External Data Provider LAB CYTOLOGY THUE RIA Final Result [facility] [address] [place] [address] [phone] * Cologuard?? colon cancer screening (12/27/2022 9:47 AM EDT) [facility] Cologuard Result Negative Negative 01/07/20 5:43 PM EDT [facility] ([employer] #:[id number]) Comment: NEGATIVE TEST RESULT. A negative Cologuard [...] cancer. ??Following a negative Cologuard result, the [place] [employer] and U.S. Multi-Society Task Force screening guidelines recommend a Cologuard re-screening interval of 3 years. References: [place] [employer] Guideline for Colorectal Cancer Screening: https://www.cancer.org/cancer/ypkvn-gpkrfb-gnqqew/pdgzimbry-pjktyxufj-glnkjpb/ac s-rec ommendations.html.; Yossi DK, Katja CR, Mona LugoK, Colorectal Cancer Screening: Recommendations for Physicians and Patients from the U.S. Multi-Society Task Force on Colorectal Cancer Screening , Am J Gastroenterology 2017; 112:3662-9655. TEST DESCRIPTION: Composite algorithmic analysis of stool [...] (Anum Adan al, N Engl J Med 2014;370(14):3850-0868.) Cologuard may produce a false negative or false positive result (no colorectal cancer or precancerous polyp present at colonoscopy follow up). A negative Cologuard test result does not guarantee the absence of CRC or advanced adenoma (pre-cancer). The current Cologuard screening interval is every 3 years. ([place] [employer] and U.S. Multi-Society Task Force). Cologuard performance data in a 10,000 patient pivotal study using colonoscopy as the reference method can be accessed at the following location: www.[employer]/results. Additional description of the Cologuard test process, warnings and precautions can be found at www.[employer].com. Stool specimen (specimen) 12/27/2022 9:47 AM EDT 12/29/2022 7:44 PM EDT Dory Wen MD LAB MOLECULAR DIAGNOS TICS ORDERABLES Final Result [facility] (CLIA #:[id number]) [place] [address] [place] [address], from Last 3 Months or Most Recently Relevant to Health Maintenance Insurance [facility] C3 DENTAL-[facility] MEDICAID STAND ADULT * Guarantor: Marlene Hicks Account Type Relation to Patient Date of Phone Billing Address Personal/Family Self [address] [facility] [address] [place] [address] * Guarantor: Marlene Hicks Account Type Relation to Patient Date of Phone Billing Address Personal/Family Self [address] [facility] [address] [place] [address] Care Teams Mortgage Loan Funder Relationship Specialty Start Date End Date Dory Ray MD [address] [place] [phone] PCP - General Family Medicine 01/03/19 Jeane Lemons Active Directory EngineerAcidizer Water Well 11/09/23
--- OUTSIDE RECORDS SUMMARY | 2024-07-09 14:48 | XMS_ITS | Encounter Summary ---
Author Organization [employer] Address [address] 7t [place] [address] Care Team Providers Care Spiritual Care Coordinator Name Role Phone Dory Ray MD Primary Care Provide r Reason for Visit * Reason Onset Date Comments antibiotic 12/09/2022 Encounter Details Date Type Department Care Team ([facility] st Contact Info) Description 12/09/2022 Telephone [facility] [address] [place], [place] [phone] Dashawn Garcia, DDS [address] [place], [place] [phone] antibiotic Social History Tobacco Use Types Packs/Day [...] after 6 on 12/09 to speak to bpm solution architect and nothing was sent to pharmacy bpm solution architect side either. Can something be sent to [...] she can call back and speak to bpm solution architect Or go to the emergency room. Patient understood DR documented in this encounter Plan of Treatment Upcoming Encounters Date Type Department Care Team (Late st Contact Info) Description 07/10/2024 11:00 AM EDT Office Visit [facility] [address] [place] [address] 08/15/2024 9:00 AM EDT Office Visit [facility] [address] [place] [address] Dory Ray MD [address] [place] [address] documented as of this encounter Visit Diagnoses Not on filedocumented in this encounter Additional Health Concerns Assessment Noted Time PHQ-9 Depression Total Score: 21 023 9:24 AM EDT documented as of this encounter Care Teams Spiritual Care Coordinator Relationship Specialty Start Date End Date Dory Ray MD [address] [place] [address] PCP - General Family Medicine 01/03/19 Jeane Lemons Acid TenderSteamer Blocker 11/09/23 documented as of this encounter
--- OUTSIDE RECORDS SUMMARY | 2024-07-09 14:48 | XMS_ITS | Encounter Summary ---
Author Organization [employer] Address [address] [facility] 7t [place] [address] Care Team Providers Care Run Boat Operator Name Role Phone Dory Ray MD Primary Care Provide r Reason for Visit * Reason Comments Med Refill Encounter Details Date Type Department Care Team (Late Contact Info) Description 11/26/2022 Refill [facility] [address] [place] [address] [phone] Name, MD Soy [address] [place] [address] Migraine without status migrainosus, not intractable, unspecified [...] Description 07/10/2024 11:00 AM EDT Office Visit [facility] [address] [place] [address] [phone] 08/15/2024 9:00 AM EDT Office Visit [facility] [address] [place] [address] Dory Ray MD 230 [place] [address] documented as of this encounter Visit Diagnoses Diagnosis Migraine without status migrainosus, not intractable, unspecified migraine type documented in this encounter Additional Health Concerns Assessment Noted Time PHQ-9 Depression Total Score: 21 023 9:24 AM EDT documented as of this encounter Care Teams Run Boat Operator Relationship Specialty Start Date End Date Dory Ray MD 230 [place] [address] PCP - General Family Medicine 01/03/19 Jeane Lemons Concaving Machine OperatorRock Room Worker 11/09/23 documented as of this encounter
--- OUTSIDE RECORDS SUMMARY | 2024-07-09 14:48 | XMS_ITS | Encounter Summary ---
Author Organization [employer] Address [address] 7t [place] [address] Care Team Providers Care Screener Operator Name Role Phone Dory Ray MD Primary Care Provide r Reason for Visit * Reason Onset Date Comments Nurse Triage 10/11/2022 Encounter Details Date Type Department Care Team ([facility] st Contact Info) Description 10/11/2022 Telephone [facility] 230 [place] [address] Dory Ray MD 230 [place] [address] Nurse Triage Social History Tobacco Use Types [...] 10/11/2022 11:39 AM EDT Triage call with [employer] cloth inspector ID [id number] Pt calls with numerous concerns but, abdominal [...] abdominal discomfort. Advised Pt to come to [facility] to be seen and Pt reports [...] accepted this outcome Please contact pt at [phone] (Australian speaker) documented in this encounter Plan of Treatment Upcoming Encounters Date Type Department Care Team (Late st Contact Info) Description 07/10/2024 11:00 AM EDT Office Visit [facility] [address] [place] [address] [phone] 08/15/2024 9:00 AM EDT Office Visit [facility] [address] [place] [address] Dory Ray MD [address] [place] [address] documented as of this encounter Visit Diagnoses Not on filedocumented in this encounter Additional Health Concerns Assessment Noted Time PHQ-9 Depression Total Score: 21 023 9:24 AM EDT documented as of this encounter Care Teams Screener Operator Relationship Specialty Start Date End Date Dory Ray MD [address] [place] [address] PCP - General Family Medicine 01/03/19 Jeane Lemons Senior Wind Turbine TechnicianSpring Intern 11/09/23 documented as of this encounter
--- OUTSIDE RECORDS SUMMARY | 2024-07-09 14:48 | XMS_ITS | Encounter Summary ---
Author Organization [employer] Address [address] [facility] [address] 7t [place] [address] Care Team Providers Care It Project Lead Name Role Phone Dory Ray MD Primary Care Provide r Reason for Visit * Reason Comments Med Refill Encounter Details Date Type Department Care Team ([facility] st Contact Info) Description 02/22/[address] [facility] [address] [place], [place] [phone] Dory Ray MD 230 [place] [address] Chronic pain syndrome; Anxiety Social History Tobacco [...] of the following? None of the above;Lead [place] or Pipes;Pests such as bugs, ants, or [...] Description 07/10/2024 11:00 AM EDT Office Visit [facility] [address] [place] [address] 08/15/2024 9:00 AM EDT Office Visit [address] [address] Dory Ray MD [address] [place] [address] documented as of this encounter Goals Goal [...] documented as of this encounter Care Teams It Project Lead Relationship Specialty Start Date End Date Dory Ray MD [address] [place] [address] PCP - General Family Medicine 01/03/19 Jeane Lmeons Video Arcade ManagerExtrusion Die Coordinator 11/09/23 documented as of this encounter
--- OUTSIDE RECORDS SUMMARY | 2024-07-09 14:48 | XMS_ITS | Encounter Summary ---
Author Organization [employer] Address [address] [facility] 7t [place] [address] Care Team Providers Care Mill House Supervisor Name Role Phone Dory Ray MD Primary Care Provide r Reason for Visit * Reason Comments Med Refill Encounter Details Date Type Department Care Team ([facility] Contact Info) Description 11/16/[address] [facility] [address] [place] [address] Eden Cobb MD [address] [place] [address] Anxiety Social History Tobacco Use Types Packs/Day [...] Department Care Team ([facility] Contact Info) Description 07/10/2024 11:00 AM EDT Office Visit [facility] [address] [place] [address] [phone] 08/15/2024 9:00 AM EDT Office Visit [facility] [address] [place] [address] [phone] Dory Ray MD 230 [place] [address] documented as of this encounter Visit Diagnoses Diagnosis Anxiety Anxiety state, unspecified documented in this encounter Additional Health Concerns Assessment Noted Time PHQ-9 Depression Total Score: 21 023 9:24 AM EDT documented as of this encounter Care Teams Mill House Supervisor Relationship Specialty Start Date End Date Dory Ray MD 230 [place] [address] PCP - General Family Medicine 01/03/19 Jeane Lemons Digital Marketing AssociateRail Gang Supervisor 11/09/23 documented as of this encounter
--- OUTSIDE RECORDS SUMMARY | 2024-07-09 14:48 | XMS_ITS | Encounter Summary ---
Author Organization [employer] Address [address] [facility] [address] [facility] [address] 7t [place] [address] Care Team Providers Care It Coordinator Name Role Phone Dory Ray MD Primary Care Provide r Reason for Visit * Reason Comments Med Refill Encounter Details Date Type Department Care Team ([facility] st Contact Info) Description 01/17/2023 Refill [facility] 230 [place], [place] [phone] Dory Ray MD 230 [place] [address] Migraine without status migrainosus, not intractable, unspecified [...] 07/10/2024 11:00 AM EDT Office Visit [facility] [address] [place] [address] 08/15/2024 9:00 AM EDT Office Visit [address] [address] Dory Ray MD [address] [place] [address] documented as of this encounter Visit Diagnoses Diagnosis Migraine without status migrainosus, not intractable, unspecified migraine type Chronic right-sided low back pain with right-sided sciatica documented in this encounter Additional Health Concerns Assessment Noted Time PHQ-9 Depression Total Score: 24 023 9:07 AM EDT documented as of this encounter Care Teams It Coordinator Relationship Specialty Start Date End Date Dory Ray MD [address] [place] [address] PCP - General Family Medicine 01/03/19 Jeane Lemons Security RepresentativeMash Filter Cloth Changer 11/09/23 documented as of this encounter
--- OUTSIDE RECORDS SUMMARY | 2024-07-09 14:48 | XMS_ITS | Encounter Summary ---
Author Organization [employer] Address [address] [facility] [address] 7t [place] [address] Care Team Providers Care Program Lead Name Role Phone Dory Ray MD Primary Care Provide r Reason for Visit * Reason Comments Med Refill Encounter Details Date Type Department Care Team ([facility] st Contact Info) Description 12/29/2022 Refill [facility] [address] [place] [address] Sunshine James, DO [address] [place] [address] Strain of neck muscle, initial encounter; Neck [...] Description 07/10/2024 11:00 AM EDT Office Visit [facility] [address] [place] [address] 08/15/2024 9:00 AM EDT Office Visit [address] [address] Dory Ray MD [address] [place] [address] documented as of this encounter Visit Diagnoses Diagnosis Strain of neck muscle, initial encounter Neck pain Cervicalgia documented in this encounter Additional Health Concerns Assessment Noted Time PHQ-9 Depression Total Score: 24 023 9:07 AM EDT documented as of this encounter Care Teams Program Lead Relationship Specialty Start Date End Date Dory Ray MD [address] [place] [address] PCP - General Family Medicine 01/03/19 Jeane Lemons Subassembly AssemblerClinical Practitioner 11/09/23 documented as of this encounter
--- OUTSIDE RECORDS SUMMARY | 2024-07-09 14:48 | XMS_ITS | Encounter Summary ---
Author Organization [employer] Address [address] [facility] 7t [place] [address] Care Team Providers Care Picking Table Worker Name Role Phone Dory Ray MD Primary Care Provide r Reason for Visit * Reason Comments Med Refill Encounter Details Date Type Department Care Team (Late Contact Info) Description 12/09/2022 Refill [facility] [address] [place] [phone] Dory Ray MD [address] [place] [address] Anxiety Social History Tobacco Use Types Packs/Day [...] Visit [facility] [address] [place] [address] [phone] 08/15/2024 9:00 AM EDT Office Visit [facility] [address] [place] [address] [phone] Dory Ray MD 230 [place] [address] documented as of this encounter Visit Diagnoses Diagnosis Anxiety Anxiety state, unspecified documented in this encounter Additional Health Concerns Assessment Noted Time PHQ-9 Depression Total Score: 21 023 9:24 AM EDT documented as of this encounter Care Teams Picking Table Worker Relationship Specialty Start Date End Date Dory Ray MD [address] [place] [address] PCP - General Family Medicine 01/03/19 Jeane Lemons Damper MakerEarth Science Professor 11/09/23 documented as of this encounter
--- OUTSIDE RECORDS SUMMARY | 2024-07-09 14:48 | XMS_ITS | Encounter Summary ---
Demographics Address [address] [facility] [address] [place] [address] Work Phone Mobile Phone Email Address Preferred Language es Marital Status Unknown Jewish Affiliation Unknown Race Other Race Ethnic Group or Author Organization [employer] Address [address] [facility] [address] 7t [place] [address] Care Team Providers Care Instructor Private Name Role Phone Dory Ray MD Primary Care Provide r Encounter Details Date Type Department Care Team (Late st Contact Info) Description 07/09/2024 Orders Only [facility] External Provider, [facility] Social History Tobacco Use Types Packs/Day [...] Description 07/10/2024 11:00 AM EDT Office Visit [address] [address] 08/15/2024 9:00 AM EDT Office Visit [address] [address] Dory Ray MD [address] [place] [address] documented as of this encounter Goals Goal Patient Goal Type Associated Problems Recent Progress Patient-Stated? Author Smoking cessation General No change(2023 2:25 PM EDT) No Kiah Cisneros, Olimpia Note: Maintain current progress, smoke 8 cigarettes per day or less. documented as of this encounter Procedures Procedure Name Priority Date/Time Associated Diagnosis Comments US PELVIS TRANSVAGINAL Routine 07/09/2024 1:02 PM EDT documented in this encounter Results * US Pelvis Transvaginal (07/09/2024 1:02 PM EDT) Anatomical Region Laterality Modality Pelvis Ultrasound 07/09/2024 1:02 PM EDT Narrative 07/09/2024 2:07 PM EDT ? [facility] ?[address] ? [place] [address] ? Ultrasound Report ? Signed ? Patient: Kurt,Marlene ?MR#: [id number] ?? [id number] ? : 1975 ?Acct:[id number] ? Age/Sex: 48 / F ?ADM Date: 07/09/24 ? Loc: HO.HMGCX ? Attending Dr: Macho Sarkar MD ? Ordering Physician: Macho Sarkar MD ?? Date of Service: 07/09/24 ?? Procedure(s): US pelvic and transvaginal ?? Accession Number(s): [id number] ? cc: Dory Ray MD; Macho Sarkar [...] DD/ 1302 ? TD/TT: 07/09/24 1315 ? Director Merit System: ? Procedure Note Donotuseinterpreter, Image - 07/09/2024 [facility] [address] [place] [address] [place] [address] Ultrasound Report Signed Patient: Crissy Hicks#: [id number] : 1975Acct:[id number] Age/Sex: 48 / FADM Date: 07/09/24 Loc: HO.HMGCX Attending Dr: Macho Sarkar MD Ordering Physician: Macho Sarkar MD Date of Service: 07/09/24 Procedure(s): US pelvic and transvaginal Accession Number(s): [id number] cc: Dory Ray MD; Macho Sarkar MD [...] 07/09/24 1404 DD/ 1302 TD/TT: 07/09/24 1315 Director Merit System: [facility] External Provider IMG US PROCEDURES Final Result documented in this encounter Visit Diagnoses Not on filedocumented in this encounter Additional Health Concerns Assessment Noted Time PHQ-9 Depression Total Score: 24 024 9:01 AM EDT documented as of this encounter Care Teams Instructor Private Relationship Specialty Start Date End Date Dory Ray MD [address] [place] [address] PCP - General Family Medicine 01/03/19 Jeane Lemons Music TypographerCommunity Development Director 11/09/23 documented as of this encounter
--- OUTSIDE RECORDS SUMMARY | 2024-07-09 14:48 | XMS_ITS | Encounter Summary ---
Author Organization [employer] Address [address] [facility] [facility] [address] 7t [place] [address] Care Team Providers Care Storyboard Artist Name Role Phone Dory aRy MD Primary Care Provide r Encounter Details Date Type Department Care Team (Late st Contact Info) Description 01/12/2023 Abstract [facility] [address] [place] [address] Dory Ray MD [address] [place] [address] Social History Tobacco Use Types Packs/Day Years [...] Visit [facility] [address] [place] [address] 08/15/2024 9:00 AM EDT Office Visit [facility] [address] [place] [address] Dory Ray MD [address] [place] [address] documented as of this encounter Visit Diagnoses Not on filedocumented in this encounter Additional Health Concerns Assessment Noted Time PHQ-9 Depression Total Score: 24 023 9:07 AM EDT documented as of this encounter Care Teams Storyboard Artist Relationship Specialty Start Date End Date Dory Ray MD [address] [place] [address] PCP - General Family Medicine 01/03/19 Jeane Lemons Net Development ManagerMarketing Coordinator 11/09/23 documented as of this encounter
--- OUTSIDE RECORDS SUMMARY | 2024-07-09 14:48 | XMS_ITS | Encounter Summary ---
Author Organization [employer] Address [address] [facility] [address] 7t [place] [address] Care Team Providers Care Strategy Lead Name Role Phone Dory Ray MD Primary Care Provide r Reason for Visit * Reason Comments Med Refill Encounter Details Date Type Department Care Team ([facility] st Contact Info) Description 04/08/2024 Refill [facility] [address] [place] [address] Dory Ray MD [address] [place] [address] Chronic right-sided low back pain with right-sided [...] of the following? None of the above;Lead [place] or Pipes;Pests such as bugs, ants, or [...] 11:00 AM EDT Office Visit [facility] [address] [place] [address] 08/15/2024 9:00 AM EDT Office Visit [facility] [address] [place] [address] Dory Ray MD [address] [place] [address] documented as of this encounter Goals Goal [...] documented as of this encounter Care Teams Strategy Lead Relationship Specialty Start Date End Date Dory Ray MD [address] [place] [address] PCP - General Family Medicine 01/03/19 Jeane Lemons Inside UpholstererSubstation Manager 11/09/23 documented as of this encounter
== END 2024-07-09 12:29 | disposition home or self-care (01) ==
LOC: HO.HMGCX 12:28
PROVIDERS: PCP Internal Medicine; Visit Provider Obstetrics & Gynecology
DX: N83.299 Other ovarian cyst, unspecified side (principal)
CPT/HCPCS: 76830; 76856

== ENCOUNTER → 2024-07-09 12:56 | Outpatient (BNV) | payer MEDICAID, SELFPAY | PROVIDERS: PCP Internal Medicine; Visit Provider Radiology Diagnostic Radiology | DX: Z87.42 Personal history of other diseases of the female genital tract (principal) | CPT/HCPCS: 76830; 76856 ==

== ENCOUNTER 2024-07-12 08:20 | Outpatient (AMB) | payer MEDICAID, SELFPAY ==
--- NOTE | 2024-07-12 08:21 | MHC.OFFVIS ---
Intake Visit Reasons: u/s results Customer Relationship Specialist Required: Yes Customer Relationship Specialist Language: Private Detective Services: Customer Relationship Specialist Present (in person) Customer Relationship Specialist Name: Sirisha CUMMINGS Information Interpreted: non-clinical & clinical Allergies No Known Allergies Allergy (Verified 06/26/24 08:27) HPI Comments Details: The patient schedule telehealth visit to discuss the results of the ultrasound regarding previously seen complex ovarian cyst in 03/27. Pelvic ultrasound done on 07/09/2024 showed the following: IMPRESSION: The right ovary is not visualized. Otherwise unremarkable pelvic ultrasound. The previously seen septated left ovarian cyst has resolved. The following workup was done.: H&H= 13.4/39.5 TSH, GC and chlamydia were negative. FSH/LH elevated HCG was 6 repeated after 48 hours remained at 6 Endometrial biopsy pathology showed the following: Disordered proliferative endometrium; no atypia or hyperplasia identified. Co testing was negative. Mammogram in 06/26 was BI-RADS 1 [facility] Medical History (Updated 07/12/24 @ 08:44 by Macho Sarkar MD) HTN (hypertension) Asthma Seasonal allergies Nicotine dependence, cigarettes, uncomplicated Fibromyalgia Chronic pain syndrome Anxiety and depression Migraines Constipation Complex ovarian cyst Abnormal uterine bleeding (AUB) Microscopic hematuria Interstitial cystitis Urinary frequency Stress incontinence Female pelvic pain Abdominal mass, left lower quadrant Well woman exam Breast lump Disc degeneration, lumbar Spondylosis of lumbar spine Arthritis Surgical History History of carpal tunnel surgery of left wrist History of cystoscopy History of salpingo-oophorectomy History of loop electrosurgical excision procedure (LEEP) History of bilateral tubal ligation Family History Sister History of breast cancer, Onset Age: 52 Brother History of bone cancer History of blood disorder History of brain cancer Paternal Aunt History of cancer of uterus Mother Hx of cancer of lung Sister Hx of hysterectomy Family/Other Hx of hysterectomy Family/Other Hx of hysterectomy Daughter Hx of thyroid cancer Social History (Updated 06/29/24 @ 10:40 by Ella Gould PA-C) Household Members: Significant Other Housing: Apartment Do you presently have visiting nurse or other home services: Yes ([employer] daily) Alcohol intake: never Patient Tobacco Use Status: Current everyday Tobacco user Tobacco use type: Cigarette Cigarettes Per Day: 10 Years Smoked: (onset 10yo, 1/2-3/4ppd x 38yrs - 20pyh) Second Hand Smoke Exposure: No Substance Use Type: Marijuana service: No Sexual orientation: Straight/Heterosexual Gender identity: Female Female Reproductive History Menstrual Age of Menarche: 9 Review of Systems Const All systems reviewed & are unremarkable except as noted in HPI and below Reports as per HPI and Reports no additional complaints GI Reports no additional complaints Reports no additional complaints Telehealth Telehealth Telehealth Platform: Telephone Location of provider rendering services: practice address Location of patient: address on file Patient Identification confirmed using: Name, : Yes Telehealth method: video Patient verbally consented to treatment: Yes Patient verbally consented to billing insurance company: Yes Patient informed of any privacy concerns related to visit: Yes Minutes spent on Phone/Video with Pt.: 3 Assessment & Plan Assessment & Plan (1) Complex ovarian cyst: Comment: Resolved Code(s): N83.299 - Other ovarian cyst, unspecified side Category: Medical Plan: Discussed with the patient ultrasound findings showing the previously identified complex cyst has resolved. The patient was instructed to call if symptoms recur. All questions were answered the patient verbalized understanding. (2) Abnormal uterine bleeding (AUB): Code(s): N93.9 - Abnormal uterine and vaginal bleeding, unspecified Category: Medical Plan: Discussed with the patient the results of the work up done and options of treatment including but not limited to BCP's, cyclic Progesterone, Mirena IUD, endometrial ablation and hysterectomy. All pros, cons, risks and benefits of each option were discussed with the patient and the patient decided to go ahead with cyclic Provera, so a more detailed discussion re: Progesterone treatment including mechanism of action, benefits (regular menses, endometrial protection form unopposed estrogen and reduction in the risk of endometrial hyperplasia and/or cancer ...), risks (Thrombosis, mood changes, weight gain, breast soreness, ? increased breast ca, others). Instructions were given to use a back- up method for contraception since this is not a method control, take the medication 1 tablet daily starting day 15-24 and to schedule a 3 months follow-up appointment; patient verbalized understanding and agreed with the plan. I spent a total of 20 minutes reviewing the chart, talking to the patient via video and documenting in the medical record. Medications: New medroxyprogesterone (Provera) start Provera 1 tablet daily from day 15-24 cyclically every months, day 1 being 1st day of menses 10 mg PO DAILY 10 days 30 tabs 0RF Coding Level of Care Code Tele Est Pt Level 3 (20923) Diagnoses Complex ovarian cyst N83.299 Abnormal uterine bleeding (AUB) N93.9
--- OUTSIDE RECORDS SUMMARY | 2024-07-12 08:30 | XMS_ITS | Encounter Summary ---
Author Organization [employer] Address [address] [facility] 7t h Floor [place] [id number] Care Team Providers Care Commercial Credit Analyst Name Role Phone Dory Ray MD Primary Care Provide r Reason for Visit * Reason Comments Med Refill Encounter Details Date Type Department Care Team ([facility] st Contact Info) Description 08/23/2023 Refill [facility] ADULT DENTAL [address] [place] [address] Dashawn Garcia DDS [address] [place] [address] Social History Tobacco Use Types Packs/Day Years [...] of the following? None of the above;Lead [place] or Pipes;Pests such as bugs, ants, or [...] Care Team (Late st Contact Info) Description 07/18/2024 2:45 PM EDT Office Visit [facility] MEDICINE [address] [place] [address] Dory Ray MD [address] [place] [address] 08/14/2024 11:00 AM EDT Office Visit [address] [address] 08/15/2024 9:00 AM EDT Office Visit [facility] MEDICINE [address] [place] [address] Dory Ray MD [address] [place] [address] documented as of this encounter Goals Goal [...] documented as of this encounter Care Teams Commercial Credit Analyst Relationship Specialty Start Date End Date Dory Ray MD [address] [place] [address] PCP - General Family Medicine 01/03/19 Jeane Lemons Electric Power Line RepairerWater Pipe Installer 11/09/23 documented as of this encounter
--- OUTSIDE RECORDS SUMMARY | 2024-07-12 08:30 | XMS_ITS | Encounter Summary ---
Author Organization [employer] Address [address] [facility] [address] 7t [place] [address] Care Team Providers Care Pricing Analyst Name Role Phone Dory Ray MD Primary Care Provide r Reason for Visit * Reason Comments Med Refill Encounter Details Date Type Department Care Team ([facility] st Contact Info) Description 05/20/2023 Refill [facility] MEDICINE 230 [place], [place] [phone] Dory Ray MD 230 [place], [place] [phone] Chronic pain syndrome Social History Tobacco Use [...] Description 07/18/2024 2:45 PM EDT Office Visit [address] [address] Dory Ray MD [address] [place] [address] 08/14/2024 11:00 AM EDT Office Visit [address] [address] 08/15/2024 9:00 AM EDT Office Visit [address] [address] Dory Ray MD [address] [place] [address] documented as of this encounter Goals Goal [...] documented as of this encounter Care Teams Pricing Analyst Relationship Specialty Start Date End Date Dory Ray MD [address] [place] [address] PCP - General Family Medicine 01/03/19 Jeane Lemons Therapy TechnicianWater Registrar 11/09/23 documented as of this encounter
--- OUTSIDE RECORDS SUMMARY | 2024-07-12 08:30 | XMS_ITS | Encounter Summary ---
Author Organization [employer] Address [address] 7t [place] [address] Care Team Providers Care Development Eng Name Role Phone Dory Ray MD Primary Care Provide r Reason for Visit * Reason Onset Date Comments requesting call back 03/24/2022 Encounter Details Date Type Department Care Team ([facility] Contact Info) Description 03/24/2022 Telephone [facility] MEDICINE [address] [place] [address] Dory Ray MD [address] [place] [address] requesting call back Social History Tobacco Use [...] pt returning call Please contact pt at [phone] documented in this encounter Plan of Treatment Upcoming Encounters Date Type Department Care Team (Late st Contact Info) Description 07/18/2024 2:45 PM EDT Office Visit [address] [address] Dory Ray MD [address] [place] [address] [phone] 08/14/2024 11:00 AM EDT Office Visit [address] [phone] 08/15/2024 9:00 AM EDT Office Visit [address] [phone] Dory Ray MD [address] [place] [address] [phone] documented as of this encounter Visit Diagnoses Not on filedocumented in this encounter Care Teams Development Eng Relationship Specialty Start Date End Date Dory Ray MD [address] [place] [address] [phone] PCP - General Family Medicine 01/03/19 Jeane Lemons Electric InstallerDesk Director 11/09/23 documented as of this encounter
--- OUTSIDE RECORDS SUMMARY | 2024-07-12 08:30 | XMS_ITS | Encounter Summary ---
Author Organization [employer] Address [address] [facility] [address] 7t [place] [address] Care Team Providers Care Supervisor Wet Room Name Role Phone Dory Ray MD Primary Care Provide r Reason for Visit * Reason Onset Date Comments Durable Medical Equipment 03/21/2024 Encounter Details Date Type Department Care Team ([facility] st Contact Info) Description 03/21/2024 Telephone [facility] MEDICINE 230 [place] [address] Dory Ray MD [address] [place] [address] Durable Medical Equipment Social History Tobacco Use [...] of the following? None of the above;Lead [place] or Pipes;Pests such as bugs, ants, or [...] requesting DME for Wipes. Contact pt at [phone] documented in this encounter Plan of Treatment Upcoming Encounters Date Type Department Care Team (Late st Contact Info) Description 07/18/2024 2:45 PM EDT Office Visit [facility] MEDICINE [address] [place] [address] Dory Ray MD [address] [place] [address] 08/14/2024 11:00 AM EDT Office Visit [address] [address] 08/15/2024 9:00 AM EDT Office Visit [facility] MEDICINE [address] [place] [address] Dory Ray MD [address] [place] [address] documented as of this encounter Goals Goal [...] as of this encounter Care Teams Supervisor Wet Room Relationship Specialty Start Date End Date Dory Ray MD [address] [place] [address] PCP - General Family Medicine 01/03/19 Jeane Lemons Account Financial ManagerDrafter (Cad) Electronic 11/09/23 documented as of this encounter
--- OUTSIDE RECORDS SUMMARY | 2024-07-12 08:30 | XMS_ITS | Encounter Summary ---
Author Organization [employer] Address [address] [facility] [address] 7t [place] [address] Care Team Providers Care Railways Assistant Name Role Phone Dory Ray MD Primary Care Provide r Reason for Visit * Reason Comments Med Refill Encounter Details Date Type Department Care Team ([facility] st Contact Info) Description 04/10/2024 Refill [facility] MEDICINE 230 [place], [place] [phone] Dory Ray MD 230 [place] [address] Chronic right-sided low back pain with right-sided [...] with others, in a hotel, in a alf, living outside on the street, on a beach, in a car, or in a park 08/19/[address] you li ve. Do you have problems with any of the following? None of the above;Lead [place] or Pipes;Pests such as bugs, ants, or [...] Description 07/18/2024 2:45 PM EDT Office Visit [address] [address] Dory Ray MD [address] [place] [address] 08/14/2024 11:00 AM EDT Office Visit [address] [phone] 08/15/2024 9:00 AM EDT Office Visit [address] [address] Dory Ray MD [address] [place] [address] documented as of this encounter Goals Goal [...] documented as of this encounter Care Teams Railways Assistant Relationship Specialty Start Date End Date Dory Ray MD [address] [place] [address] PCP - General Family Medicine 01/03/19 Jeane Lemons Industrial Machine AssemblerSales And Service Advisor 11/09/23 documented as of this encounter
--- OUTSIDE RECORDS SUMMARY | 2024-07-12 08:30 | XMS_ITS | Encounter Summary ---
Author Organization [employer] Address [address] [facility] [address] 7t [place] [address] Care Team Providers Care Postdoctoral Research Associate Name Role Phone Dory Ray MD Primary Care Provide r Reason for Visit * Reason Comments Med Refill Encounter Details Date Type Department Care Team ([facility] st Contact Info) Description 03/07/2022 Refill [facility] MEDICINE [address] [place] [address] Emilia De La Torre FNP [address] [place] [address] Fibromyalgia (Primary Dx) Social History Tobacco Use [...] . Pt stated will be traveling to [place] on 03/10/22. Last seen on 01/20/22. PCP Dr. Garcia documented in this encounter Plan of Treatment Upcoming Encounters Date Type Department Care Team (Late st Contact Info) Description 07/18/2024 2:45 PM EDT Office Visit [address] [address] Dory Ray MD [address] [place] [address] 08/14/2024 11:00 AM EDT Office Visit [address] [address] 08/15/2024 9:00 AM EDT Office Visit [address] [address] Dory Ray MD [address] [place] [address] documented as of this encounter Visit Diagnoses Diagnosis Fibromyalgia- Primary Unspecified myalgia and myositis documented in this encounter Care Teams Postdoctoral Research Associate Relationship Specialty Start Date End Date Dory Ray MD [address] [place] [phone] PCP - General Family Medicine 01/03/19 Jeane Lemons Field MechanicRotary Machine Operator 11/09/23 documented as of this encounter
--- OUTSIDE RECORDS SUMMARY | 2024-07-12 08:30 | XMS_ITS | Encounter Summary ---
Author Organization [employer] Address 75 [facility] 7t [place] [address] Care Team Providers Care Tin Pot Operator Name Role Phone Dory Ray MD Primary Care Provide r Reason for Visit * Reason Comments Med Refill Encounter Details Date Type Department Care Team (Late Contact Info) Description 08/05/2022 Refill [facility] MEDICINE [address] [place] [address] [phone] Dory Ray MD [address] [place] [address] [phone] Anxiety Social History Tobacco Use Types Packs/Day [...] [facility] Contact Info) Description 07/18/2024 2:45 PM EDT Office Visit [facility] MEDICINE 230 [place], [place] [phone] Dory Ray MD [address] [place] [address] [phone] 08/14/2024 11:00 AM EDT Office Visit [facility] MEDICINE [address] [place] [address] 08/15/2024 9:00 AM EDT Office Visit [facility] MEDICINE [address] [place] [address] Dory Ray MD [address] [place] [address] [phone] documented as of this encounter Visit Diagnoses Diagnosis Anxiety Anxiety state, unspecified documented in this encounter Care Teams Tin Pot Operator Relationship Specialty Start Date End Date Dory Ray MD [address] [place] [address] [phone] PCP - General Family Medicine 01/03/19 Jeane Lemons Tire Recapping Machine OperatorBody Mechanic Apprentice 11/09/23 documented as of this encounter
--- OUTSIDE RECORDS SUMMARY | 2024-07-12 08:30 | XMS_ITS | Encounter Summary ---
Author Organization [employer] Address [address] [facility] [address] 7t [place] [address] Care Team Providers Care Beaming Inspector Name Role Phone Dory aRy MD Primary Care Provide r Reason for Visit * Reason Comments Med Refill Encounter Details Date Type Department Care Team ([facility] st Contact Info) Description 03/19/2024 Refill [facility] MEDICINE [address] [place] [address] Dory Ray MD 230 [place] [address] Essential hypertension Social History Tobacco Use Types [...] of the following? None of the above;Lead [place] or Pipes;Pests such as bugs, ants, or [...] Description 07/18/2024 2:45 PM EDT Office Visit [address] [address] Dory Ray MD [address] [place] [address] 08/14/2024 11:00 AM EDT Office Visit [address] [phone] 08/15/2024 9:00 AM EDT Office Visit [address] [address] Dory Ray MD [address] [place] [address] documented as of this encounter Goals Goal [...] documented as of this encounter Care Teams Beaming Inspector Relationship Specialty Start Date End Date Dory Ray MD [address] [place] [address] PCP - General Family Medicine 01/03/19 Jeane Lemons Environmental Protection ForesterLast Pattern Grader 11/09/23 documented as of this encounter
--- OUTSIDE RECORDS SUMMARY | 2024-07-12 08:30 | XMS_ITS | Encounter Summary ---
Author Organization [employer] Address [address] [facility] 7t [place] [address] Care Team Providers Care Director Of Enterprise Architecture Name Role Phone Dory Ray MD Primary Care Provide r Reason for Visit * Reason Comments Med Refill Encounter Details Date Type Department Care Team (Late Contact Info) Description 10/06/2022 Refill [facility] 505 [place], [place] [phone] Dory Ray MD [address] [place] [address] [phone] Chronic pain syndrome Social History Tobacco Use [...] Department Care Team ([facility] Contact Info) Description 07/18/2024 2:45 PM EDT Office Visit [facility] MEDICINE [address] [place] [address] [phone] Dory Ray MD 230 [place], [place] [phone] 08/14/2024 11:00 AM EDT Office Visit [facility] MEDICINE [address] [place] [address] [phone] 08/15/2024 9:00 AM EDT Office Visit [address] [address] Dory Ray MD [address] [place] [address] documented as of this encounter Visit Diagnoses Diagnosis Chronic pain syndrome documented in this encounter Additional Health Concerns Assessment Noted Time PHQ-9 Depression Total Score: 21 023 9:24 AM EDT documented as of this encounter Care Teams Director Of Enterprise Architecture Relationship Specialty Start Date End Date Dory Ray MD [address] [place] [address] PCP - General Family Medicine 01/03/19 Jeane Lemons Tariff InspectorSupervisor Contingents 11/09/23 documented as of this encounter
--- OUTSIDE RECORDS SUMMARY | 2024-07-12 08:30 | XMS_ITS | Encounter Summary ---
Author Organization [employer] Address [address] [facility] [address] 7t [place] [address] Care Team Providers Care Ski Patroller Name Role Phone Dory Ray MD Primary Care Provide r Reason for Visit * Reason Onset Date Comments PA 07/29/2022 Encounter Details Date Type Department Care Team ([facility] st Contact Info) Description 07/29/2022 Telephone [facility] MEDICINE 230 [place] [address] Dory Ray MD 230 [place] [address] [place] Social History Tobacco Use Types Packs/Day [...] Description 07/18/2024 2:45 PM EDT Office Visit [facility] MEDICINE [address] [place] [address] Dory Ray MD [address] [place] [address] 08/14/2024 11:00 AM EDT Office Visit [address] [address] 08/15/2024 9:00 AM EDT Office Visit [address] [address] Dory Ray MD [address] [place] [phone] documented as of this encounter Visit Diagnoses Not on filedocumented in this encounter Care Teams Ski Patroller Relationship Specialty Start Date End Date Dory Ray MD [address] [place] [address] PCP - General Family Medicine 01/03/19 Jeane Lemons Magician/IllusionistThread Singer 11/09/23 documented as of this encounter
--- OUTSIDE RECORDS SUMMARY | 2024-07-12 08:30 | XMS_ITS | Encounter Summary ---
Author Organization [employer] Address [address] [facility] [address] 7t [place] [address] Care Team Providers Care French Folder Name Role Phone Dory Ray MD Primary Care Provide r Reason for Visit * Reason Comments Med Refill Encounter Details Date Type Department Care Team ([facility] st Contact Info) Description 08/06/[address] [facility] MEDICINE 230 [place], [place] [phone] Dory Ray MD 230 [place] [address] Chronic right-sided low back pain with right-sided [...] Description 07/18/2024 2:45 PM EDT Office Visit [address] [address] Dory Ray MD [address] [place] [address] 08/14/2024 11:00 AM EDT Office Visit [address] [address] 08/15/2024 9:00 AM EDT Office Visit [address] [address] Dory Ray MD [address] [place] [address] documented as of this encounter Goals Goal [...] documented as of this encounter Care Teams French Folder Relationship Specialty Start Date End Date Dory Ray MD 230 [place] [address] PCP - General Family Medicine 01/03/19 Jeane Lemons Slot AttendantHeader Dock 11/09/23 documented as of this encounter
--- OUTSIDE RECORDS SUMMARY | 2024-07-12 08:30 | XMS_ITS | Encounter Summary ---
Author Organization [employer] Address 75 [facility] [place] 7t [place] [address] Care Team Providers Care Stock Clerk Name Role Phone Dory Ray MD Primary Care Provide r Reason for Visit * Reason Comments Med Refill Encounter Details Date Type Department Care Team (Late Contact Info) Description 06/22/2022 Refill [facility] MEDICINE [address] [place] [address] [phone] Name, MD Soy [address] [place] [address] [phone] Recurrent major depressive episodes, moderate (CMS/HCC); Migraine [...] Description 07/18/2024 2:45 PM EDT Office Visit [facility] MEDICINE [address] [place] [address] [phone] Dory Ray MD 230 [place], [place] [phone] 08/14/2024 11:00 AM EDT Office Visit [facility] MEDICINE [address] [place] [address] [phone] 08/15/2024 9:00 AM EDT Office Visit [facility] MEDICINE [address] [place] [address] Dory Ray MD [address] [place] [address] [phone] documented as of this encounter Visit Diagnoses Diagnosis Recurrent major depressive episodes, moderate (CMS/[facility]) Major depressive disorder, recurrent episode, moderate Migraine without status migrainosus, not intractable, unspecified migraine type documented in this encounter Care Teams Stock Clerk Relationship Specialty Start Date End Date Dory Ray MD [address] [place] [address] PCP - General Family Medicine 01/03/19 Jeane Lemons Marble MasonDesulfurizer Operator 11/09/23 documented as of this encounter
--- OUTSIDE RECORDS SUMMARY | 2024-07-12 08:30 | XMS_ITS | Encounter Summary ---
Author Organization [employer] Address [address] [facility] 7t [place] [address] Care Team Providers Care Project Management Instructor Name Role Phone Dory Ray MD Primary Care Provide r Reason for Visit * Reason Comments Med Refill Encounter Details Date Type Department Care Team (Late st Contact Info) Description 07/20/2022 Refill [facility] [address] [place] [address] Eden Cobb MD [address] [place] [phone] Migraine without status migrainosus, not intractable, unspecified [...] Department Care Team (Late Contact Info) Description 07/18/2024 2:45 PM EDT Office Visit [facility] [address] [place] [address] Dory Ray MD 230 [place], [place] [phone] 08/14/2024 11:00 AM EDT Office Visit [facility] [address] [place] [address] 08/15/2024 9:00 AM EDT Office Visit [facility] [address] [place] [address] Dory Ray MD [address] [place] [address] [phone] documented as of this encounter Visit Diagnoses Diagnosis Migraine without status migrainosus, not intractable, unspecified migraine type documented in this encounter Care Teams Project Management Instructor Relationship Specialty Start Date End Date Dory Ray MD [address] [place] [address] [phone] PCP - General Family Medicine 01/03/19 Jeane Lemons DouperRip Machine Operator 11/09/23 documented as of this encounter
--- OUTSIDE RECORDS SUMMARY | 2024-07-12 08:30 | XMS_ITS | Encounter Summary ---
Author Organization [employer] Address [address] [facility] [address] 7[address] [place] [address] Care Team Providers Care Warp Starter Name Role Phone Dory Ray MD Primary Care Provide r Encounter Details Date Type Department Care Team (Late Contact Info) Description 04/07/2022 Orders Only [facility] [address] [place] [phone] Rohini Middleton MD [address] [place] [phone] Pain (Primary Dx) Social History Tobacco Use [...] Description 07/18/2024 2:45 PM EDT Office Visit [facility] [address] [place] [phone] Dory Ray MD [address] [place] [address] 08/14/2024 11:00 AM EDT Office Visit [address] [phone] 08/15/2024 9:00 AM EDT Office Visit [address] [phone] Dory Ray MD [address] [place] [address] [phone] documented as of this encounter Visit Diagnoses Diagnosis Pain- Primary Generalized pain documented in this encounter Care Teams Warp Starter Relationship Specialty Start Date End Date Dory Ray MD [address] [place] [address] [phone] PCP - General Family Medicine 01/03/19 Jeane Lemons Slitter Creaser Slotter HelperAdolescent Psychiatrist 11/09/23 documented as of this encounter
--- OUTSIDE RECORDS SUMMARY | 2024-07-12 08:31 | XMS_ITS | Encounter Summary ---
Author Organization [employer] Address [address] [facility] [address] 7[address] [place] [address] Care Team Providers Care Side Seam Envelope Machine Operator Name Role Phone Dory Ray MD Primary Care Provide r Reason for Visit * Reason Comments Med Refill Encounter Details Date Type Department Care Team ([facility] st Contact Info) Description 01/17/2023 Refill [facility] [address] [place], [place] [phone] Dory Ray MD 230 [place] [address] Migraine without status migrainosus, not intractable, unspecified [...] Description 07/18/2024 2:45 PM EDT Office Visit [address] [address] Dory Ray MD [address] [place] [address] 08/14/2024 11:00 AM EDT Office Visit [address] [address] 08/15/2024 9:00 AM EDT Office Visit [address] [address] Dory Ray MD [address] [place] [address] documented as of this encounter Visit Diagnoses Diagnosis Migraine without status migrainosus, not intractable, unspecified migraine type Chronic right-sided low back pain with right-sided sciatica documented in this encounter Additional Health Concerns Assessment Noted Time PHQ-9 Depression Total Score: 24 023 9:07 AM EDT documented as of this encounter Care Teams Side Seam Envelope Machine Operator Relationship Specialty Start Date End Date Dory Ray MD [address] [place] [phone] PCP - General Family Medicine 01/03/19 Jeane Lemons Economics InstructorStocklayer 11/09/23 documented as of this encounter
--- OUTSIDE RECORDS SUMMARY | 2024-07-12 08:31 | XMS_ITS | Encounter Summary ---
Author Organization [employer] Address [address] [facility] [address] 7[address] [place] [address] Care Team Providers Care Technical Aide Name Role Phone Dory Ray MD Primary Care Provide r Reason for Visit * Reason Comments Med Refill Encounter Details Date Type Department Care Team ([facility] st Contact Info) Description 07/09/2024 Refill [facility] 230 [place] [address] Dory Ray MD 230 [place] [address] Chronic right-sided low back pain with right-sided sciatica; Recurrent major depressive episodes, moderate (CMS/HCC) Social History Tobacco Use Types Packs/Day Years [...] Description 07/18/2024 2:45 PM EDT Office Visit [address] [address] Dory Ray MD [address] [place] [address] 08/14/2024 11:00 AM EDT Office Visit [address] [phone] 08/15/2024 9:00 AM EDT Office Visit [address] [address] Dory Ray MD [address] [place] [phone] documented as of this encounter Goals Goal Patient Goal Type Associated Problems Recent Progress Patient-Stated? Author Smoking cessation General No change(2023 2:25 PM EDT) No Kiah Cisneros, MichaelD Note: Maintain current progress, smoke 8 cigarettes per day or less. documented as of this encounter Visit Diagnoses Diagnosis Chronic right-sided low back pain with right-sided sciatica Recurrent major depressive episodes, moderate (CMS/HCC) Major depressive disorder, recurrent episode, moderate documented in this encounter Additional Health Concerns Assessment Noted Time PHQ-9 Depression Total Score: 24 024 9:01 AM EDT documented as of this encounter Care Teams Technical Aide Relationship Specialty Start Date End Date Dory Ray MD 230 [place] [address] PCP - General Family Medicine 01/03/19 Jeane Lemons Health Care Social WorkerRestaurant Manager 11/09/23 documented as of this encounter
--- OUTSIDE RECORDS SUMMARY | 2024-07-12 08:31 | XMS_ITS | Encounter Summary ---
Author Organization [employer] Address [address] [facility] [address] 7[address] [place] [address] Care Team Providers Care Recovery Assistant Name Role Phone Dory Ray MD Primary Care Provide r Reason for Visit * Reason Onset Date Comments Care Coordination 07/10/2024 Encounter Details Date Type Department Care Team ([facility] st Contact Info) Description 07/10/2024 Telephone [facility] [address] [place] [address] Danyell Garrett, RN [address] [place] [address] Care Coordination Social History Tobacco Use Types Packs/Day Years [...] encounter Miscellaneous Notes * Telephone Encounter - Morales Michelle RN - 07/11/2024 9:08 AM EDT TC placed to patient [phone] regarding below message. RN informed patient that her PCP is placing her Topamax for migraine prophylaxis and neuropathic pain. RN advised patient on how to take themedication per PCP. RN reported to patient to take Topamax 150 at bedtime. Patient to start at 100 mg if no pain relief she can increase to 150 mg at bedtime and take 50 mg in the AM. RN informed patient Tramadol was discontinued. Patient reported she is unsure that the Topamax will help with her back pain. RN encouraged patient to try the medication and if the medication does not help with her migraines and neuropathic pain for her to call PCP office. RN informed patient of medication side effects. Patient informed that Topamax can cause increased sedation, edema and kidney stones with chronic Topamax use. Pt verbalized understanding. Pt to F/U PRN. * Addendum Note - Katerine Reno MD - 07/10/2024 3:57 PM EDTAddended by: KATERINE RENO on: 07/10/2024 03:57 PM Modules accepted: Orders * Telephone Encounter - Katerine Reno MD - 07/10/2024 3:54 PM EDT Regarding pain medication, please tell patient that she can increase the Topamax that she is takingfor migraine prophylaxis up to 150 mg at night (can increase to 100 mg initially then 150mg if no improvement) and continue taking 50 mg in the morning. Topamax also helps for neuropathic pain and she can DC tramadol. Please discussed with patient regarding sedation, water retention, and potential kidney stones with chronic Topamax use. * Telephone Encounter - Danyell Garrett RN - 07/10/2024 1:13 PM EDT Pt here for chronic pain group. c/o of insomnia d/t Tramadol. States every time she takes Tramadol she can't fall/ stay asleep. Asking for another pain med, preferably not a narcotic. Pt states OTC pain meds do not provide as much pain relief. Pt has a f/u with you 08/15/24 but wants to try a different pain med before that. Please advise. documented in this encounter Plan of Treatment Upcoming Encounters Date Type Department Care Team (Late st Contact Info) Description 07/18/2024 2:45 PM EDT Office Visit [facility] MED[facility] [address] [place] [phone] Dory Ray MD 230 [place] [address] 08/14/2024 11:00 AM EDT Office Visit [facility] [address] [place] [phone] 08/15/2024 9:00 AM EDT Office Visit [facility] 230 [place] [address] Dory Ray MD [address] [place] [address] documented as of this encounter Goals Goal Patient Goal Type Associated Problems Recent Progress Patient-Stated? Author Smoking cessation General No change(2023 2:25 PM EDT) Kiah Hanson, MichaelD Note: Maintain current progress, smoke 8 cigarettes per day or less. documented as of this encounter Visit Diagnoses Diagnosis Chronic migraine with aura without status migrainosus, not intractable documented in this encounter Additional Health Concerns Assessment Noted Time PHQ-9 Depression Total Score: 24 024 9:01 AM EDT documented as of this encounter Care Teams Recovery Assistant Relationship Specialty Start Date End Date Dory Ray MD [address] [place] [phone] PCP - General Family Medicine 01/03/19 Jeane Lemons Hose BuilderHanging Flags Decorator 11/09/23 documented as of this encounter
--- OUTSIDE RECORDS SUMMARY | 2024-07-12 08:31 | XMS_ITS | Encounter Summary ---
Author Organization [employer] Address [address] [facility] [address] 7[address] [place] [address] Care Team Providers Care Triage Nurse Name Role Phone Dory Ray MD Primary Care Provide r Reason for Visit * Reason Comments Med Refill Encounter Details Date Type Department Care Team ([facility] st Contact Info) Description 02/22/2024 Refill [facility] [address] [place], [place] [phone] Dory Ray MD 230 [place] [address] Chronic pain syndrome; Anxiety Social History Tobacco [...] of the following? None of the above;Lead Decorah or Pipes;Pests such as bugs, ants, or [...] Description 07/18/2024 2:45 PM EDT Office Visit [facility] MEDICINE [address] [place] [address] Dory Ray MD [address] [place] [address] 08/14/2024 11:00 AM EDT Office Visit [address] [phone] 08/15/2024 9:00 AM EDT Office Visit [address] [address] Dory Ray MD [address] [place] [address] documented as of this encounter Goals Goal [...] documented as of this encounter Care Teams Triage Nurse Relationship Specialty Start Date End Date Dory Ray MD [address] [place] [address] PCP - General Family Medicine 01/03/19 Jeane Lemons Catalyst Operator ChiefHead Of English 11/09/23 documented as of this encounter
--- OUTSIDE RECORDS SUMMARY | 2024-07-12 08:31 | XMS_ITS | Clinical Summary ---
Author Organization [facility] Address [address] [place] [address] Phone Care Team Providers Care Pedigree Researcher Name Role Phone Dory Ray MD Primary [...] Name Administration Dates Next Due Hepatitis B (Oennecq-H-Fjtjv , Recombivax HB-Adult) 19yo and older 01/18/2007,08/24/2006 [...] Luo OTHER SURGICAL HISTORY 09/25/2020 Left PROCEDURE: [facility] NEUROPLASTY &/TRANSPOSITION ULNAR NERVE ELBOW; COMMENT: Submuscular Transposition, Dr. Luo OTHER SURGICAL HISTORY 04/14/2012 Left PROCEDURE: [facility] DCMPRN FASCT F/ARM&WRST FLXR/XTNSR W/O DBRDMT; COMMENT: 1st [place] Compartment/[place]erv[place]'s Release, Dr. Luo Medical History [...] Vaccine (2023-2 5 season) 2023 Influenza Vaccine (Season Ended) 2024 04/17/2014, 12/10/2011 HIB Vaccines Aged Out No longer [...] Recently Relevant to Health Maintenance Care Teams Pedigree Researcher Relationship Specialty Start Date End Date Dory Ray MD [address] [place] [phone] PCP - General Internal Medicine 12/30/20
--- OUTSIDE RECORDS SUMMARY | 2024-07-12 08:31 | XMS_ITS | Encounter Summary ---
Author Organization [employer] Address [address] [facility] [address] 7[address] [place] [address] Care Team Providers Care Health Care Facility Administrator Name Role Phone Dory Ray MD Primary Care Provide r Encounter Details Date Type Department Care Team (Latest Contact Info) Description 07/10/2024 Travel Social History Tobacco Use Types Packs/Day Years [...] Description 07/18/2024 2:45 PM EDT Office Visit [address] [address] Dory Ray MD [address] [place] [address] 08/14/2024 11:00 AM EDT Office Visit [address] [address] 08/15/2024 9:00 AM EDT Office Visit [address] [address] Dory Ray MD [address] [place] [address] documented as of this encounter Goals Goal [...] documented as of this encounter Care Teams Health Care Facility Administrator Relationship Specialty Start Date End Date Dory Ray MD 230 [place] [address] PCP - General Family Medicine 01/03/19 Jeane Lemons Vehicle Leasing And Rental ManagerClamp Carrier Operator 11/09/23 documented as of this encounter
--- OUTSIDE RECORDS SUMMARY | 2024-07-12 08:31 | XMS_ITS | Clinical Summary ---
Author Organization [employer] Address [address] [place] [address] Care Team Providers Care Shelter Case Manager Name Role Phone Dory Ray [...] not swallow. 1 each 024 2024 Active SUMAtriptan (Imitrex) 50 MG [...] split. 30 tablet 11 024 2024 Active betamethasone, augmented, (Diprolene) 0.05 % ointmentIndicatio ns:Dermatitis Apply topically 2 times daily. 50 g 2 024 Active gabapentin (Neurontin) 800 MG tabletIndications [...] SMOKING CESSATION. 144 lozenge 5 025 Active hydrOXYzine HCl (Atarax) 25 MG [...] MUSCLE SPASMS 60 tablet 2 025 Active traMADol (Ultram) 50 MG tabletIndications [...] as directed by MD. 30 patch 1 Active mirtazapine (Remeron) 45 MG tablet TAKE 1 TABLET BY MOUTH EVERYDAY AT BEDTIME 30 tablet 1 Active ibuprofen 800 MG tabletIndications :Chronic right-sided low back pain with right-sided sciatica TAKE 1 TABLET BY MOUTH EVERY 8 HOURS IF NEEDED FOR MILD OR MODERATE PAIN 90 tablet 025 Active traZODone (Desyrel) 50 MG tabletIndications :Recurrent major depressive episodes, moderate (CMS/HCC) TAKE 1 TABLET BY MOUTH EVERY DAY AT BEDTIME NEEDED FOR SLEEP 90 tablet 1 025 Active nicotine (Nicoderm, Step 2) 14 MG/24HR patch PLACE 1 PATCH ON THE SKIN 1 TIME EACH DAY AT THE SAME TIME. 42 patch 1 025 Active hydroCHLOROthiazi de (HYDRODiuril) 25 MG tabletIndications :Essential hypertension Take 1 tablet (25 mg) by mouth in the morning. 90 tablet 1 025 Active topiramate (Topamax) 50 MG tabletIndications :Chronic migraine with aura without status migrainosus, not intractable Take 3 tablets (150 mg) by mouth at bedtime AND 1 tablet (50 mg) Once per day. 120 tablet 1 025 2025 Active hydroCHLOROthiazi de (HYDRODiuril) 25 MG tabletIndications :Essential hypertension TAKE 1 TABLET BY MOUTH EVERY DAY IN THE MORNING 90 tablet 1 024 2024 Discontinued traZODone (Desyrel) 50 MG tabletIndications :Recurrent major depressive episodes, moderate (CMS/HCC) TAKE 1 TABLET BY MOUTH EVERY DAY AT BEDTIME NEEDED FOR SLEEP 90 tablet 1 024 2024 Discontinued topiramate (Topamax) 50 MG tabletIndications :Chronic migraine with aura without status migrainosus, not intractable Take 50 mg by mouth 2 times daily. 30 tablet 1 024 2024 Discontinued(R eorder (will not trigger notification to Pharmacy)) lidocaine (Lidoderm) 5 % patchIndications: Chronic right-sided low back pain with right-sided sciatica APPLY 1 PATCH TOPICALLY ONCE PER DAY. REMOVE & DISCARD PATCH WITHIN 12 HOURS OR DIRECTED BY MD. 30 patch 1 024 2024 Discontinued(R eorder (will not trigger notification to Pharmacy)) ibuprofen 800 MG tabletIndications :Chronic right-sided low back pain with right-sided sciatica TAKE 1 TABLET BY MOUTH EVERY 8 HOURS IF NEEDED FOR MILD OR MODERATE PAIN 90 tablet 024 2024 Discontinued nicotine (Nicoderm, Step 2) 14 MG/24HR patch PLACE 1 PATCH ON THE SKIN 1 TIME EACH DAY AT THE SAME TIME. 42 patch 1 024 2024 Discontinued mirtazapine (Remeron) 45 MG tablet TAKE 1 TABLET BY MOUTH EVERYDAY AT BEDTIME 30 tablet 1 025 2024 Discontinued traMADol (Ultram) 50 MG tabletIndications :Chronic right-sided low back pain with right-sided sciatica Take 1 tablet (50 mg) by mouth every 6 (six) hours if needed for severe pain for up to 28 days. 112 tablet 025 2024 Discontinued hydroCHLOROthiazi de (HYDRODiuril) 25 MG tabletIndications :Essential hypertension TAKE 1 TABLET BY MOUTH EVERY DAY IN THE MORNING 90 tablet 1 025 2024 Discontinued(R eorder (will not trigger notification to Pharmacy)) Active Problems Problem Noted Date Diagnosed Date [...] PRN Indication: bulging lumbar disc, fibromyalgia Last FINAL INSPECTOR PAPER Agreement: 03/13/24 Additional considerations/risk factors: BZO Tier II (FINAL INSPECTOR PAPER visits Q3 months) - last evaluated Mar 2024 by PCP Assessment & Plan (07/10/2024 2:24 PM EDT): Timeline: - 07/10/24: Group - utox/pill count as expected. Interested consideration of non- opioid pain med. Long-term current use of benzodiazepine 12/13/19 Dysuria [...] Bulging lumbar disc 06/14/2023 Assessment & Plan (07/10/2024 2:23 PM EDT): History of chronic pain associated with fibromyalgia and lumbar back pain Good engagement and participation with Group Medical Visit model Encouraged multifactorial approach to pain control including pharm and non-pharm modalities Assessment & Plan (05/17/2024 2:37 PM EST): [...] and non-pharm modalities Continues with COT. See directional drill operator for urine/pill count. Assessment & Plan (01/10/2024 [...] Marlene agrees to go in person to [facility] to follow up on status of a therapist. She also agrees to follow up in 2 weeks via telehealth for support. She agrees to come in person if needed, to sign a release for me to speak with [facility]. I also recommended acupuncture and discussed sleep [...] Encounters Date Type Department Care Team Description 07/11/2024 Telephone [facility] [address] [place] [address] Dory Ray MD Chart Prep 07/10/2024 11:00 AM EDT Office Visit [facility] [address] [place] [address] Emilia De La Torre FNP Bulging lumbar disc (Primary Dx); Long-term current use of opiate analgesic; Essential hypertension 07/10/2024 Telephone [facility] [address] [place] [address] Dory Ray MD Appointment Request 07/10/2024 Telephone [facility] [address] [place] [address] Danyell Garrett, DARWIN Care Coordination 07/10/2024 Travel 07/09/2024 Refill [facility] [address] [place] [address] Dory Ray MD Chronic right-sided low back pain with right-sided sciatica; Recurrent major depressive episodes, moderate (CMS/HCC) 07/09/2024 Orders Only [facility] External Provider, [facility] 07/05/2024 Refill [facility] [address] [place] [address] Essie Hayes, DINING CAR SERVER 07/02/2024 Refill [facility] [address] [place] [address] Dory Ray MD Chronic right-sided low back pain with right-sided sciatica 06/29/2024 Orders Only [facility] External Provider, [facility] 06/28/2024 Orders Only GENERIC EXTERNAL DATA DEPARTMENT Provider, Generic External Data 06/27/2024 Orders Only [facility] [address] [place] [address] Dory Ray MD 06/26/2024 Orders Only GENERIC EXTERNAL DATA DEPARTMENT Provider, Generic External Data 06/22/2024 Telephone [facility] [address] [place] [address] Dory Ray MD Referral 06/15/2024 Population Health Risk Score [facility] [address] [place] [phone] Provider, Population Health Generic 06/15/2024 Refill [facility] [address] [place] [address] Dory Ray MD Chronic right-sided low back pain with right-sided sciatica 06/12/2024 Refill [facility] [address] [place] [address] Dory Ray MD Essential hypertension 06/05/2024 Telephone [facility] [address] [place] [address] Dory Ray MD Med Refill; Lorazepam from psychiatrist 05/30/2024 Telephone [facility] [address] [place] [phone] Dory Ray MD No Show 05/28/2024 Telephone [facility] [address] [place] [phone] Dory Ray MD Chart prep 05/22/2024 Telephone [facility] [address] [place] [address] Dory Rya MD Rescheduled chronic pain group appt 05/17/2024 Refill [facility] [address] [place] [address] Dory Ray MD Chronic right-sided low back pain with right-sided sciatica 05/17/2024 Refill [facility] [address] [place] [address] Dory Ray MD Chronic right-sided low back pain with right-sided sciatica 05/16/2024 Telephone [facility] [address] [place] [phone] Jeaneth Regalado, RN LDCT referral 05/16/2024 Patient Outreach [facility] [address] [place] [address] Dory Ray MD Pre-visit Planning (SDOH screening negative and tobacco screening positive) 05/15/2024 11:00 AM EST Office Visit [facility] [address] [place] [address] Emilia De La Torre, DINING CAR SERVER Bulging lumbar disc (Primary Dx); Long-term current use of opiate analgesic; Fibromyalgia 05/15/2024 9:30 AM EST Office Visit [facility] [address] [place] [address] Dory Ray MD Adverse effect of diazepam, initial encounter (Primary Dx); Essential hypertension; Screening for lung cancer 05/15/2024 Refill [facility] [address] [place] [address] Dory Ray MD Chronic midline thoracic back pain; Neck pain 05/15/2024 Travel 05/14/2024 Orders Only GENERIC EXTERNAL DATA DEPARTMENT Provider, Generic External Data 05/14/2024 Telephone [facility] [address] [place] [address] Dustin Hickey MA Chart Prep 05/03/2024 Refill [facility] [address] [place] [address] Dory Ray MD Essential hypertension 04/17/2024 Telephone [facility] [address] [place] [address] Dustin Hickey MA Durable Medical Equipment 04/17/2024 Telephone [facility] [address] [place] [address] Dory Ray MD ER Follow-up 04/16/2024 Refill [facility] [address] [place] [address] Katerine Killian MD Chronic right-sided low back pain with right-sided sciatica 04/16/2024 Refill [facility] [address] [place] [address] Dory Ray MD 04/13/2024 Orders Only GENERIC EXTERNAL DATA DEPARTMENT Provider, Generic External Data from Last 3 Months Immunizations Name Administration [...] Description 07/18/2024 2:45 PM EDT Office Visit [facility] [address] [place] [address] Dory Ray MD [address] [place], [place] [phone] 08/14/2024 11:00 AM EDT Office Visit [facility] [address] [place], [place] [phone] 08/15/2024 9:00 AM EDT Office Visit [facility] [address] [place] [phone] Dory Ray MD [address] [place], [place] [phone] Health Maintenance Due Date Last Done Comments [...] (2 of 2) 05/08/2024 03/13/2024 Depression Monitoring 07/10/2024 01/10/2024, 024 Depression Screening 01/09/2025 01/10/2024, 01/10/20 24 Alcohol/Substance [...] Comments POCT MARÍA-14 URINE DRUG SCREEN Routine 07/10/2024 1:11 PM EDT Bulging lumbar disc Long-term current use of opiate analgesic US PELVIS TRANSVAGINAL Routine 07/09/2024 1:02 PM [...] TO CULTURE Routine 04/13/2024 6:20 PM EST HPV MRNA E6/E7 REFLEX TO HPV [...] Results * POCT MARÍA-14 Urine Drug Screen (07/10/2024 1:11 PM EDT) Only the most recent of2 resultswithin the time period is included. Benzodiazepines Screen, Urine Positive TCA, Urine Positive Urine Urine specimen obtained by clean catch procedure / Unknown 07/10/2024 1:11 PM EDT us Emilia De La Torre DINING CAR SERVER POINT OF CARE TEST ENTER/EDIT ORDERABLES Final Result * US Pelvis Transvaginal (07/09/2024 1:02 PM EDT) Anatomical Region Laterality Modality Pelvis Ultrasound 07/09/2024 1:02 PM EDT Narrative 07/09/2024 2:07 PM EDT ? [facility] ?[address] ? [place] [address] ? Ultrasound Report ? Signed ? Patient: Kurt,Marlene ?MR#: [id number] ?? 7446 ? : 1975 ?Acct:[id number] ? Age/Sex: 48 / F ?ADM Date: 07/09/24 ? Loc: HO.HMGCX ? Attending Dr: Macho Sarkar MD ? Ordering Physician: Macho Sarkar MD ?? Date of Service: 07/09/24 ?? Procedure(s): US pelvic and transvaginal ?? Accession Number(s): [id number] ? cc: Dory Ray MD; Macho Sarkar [...] DD/ 1302 ? TD/TT: 07/09/24 1315 ? Snap Shearer: ? Procedure Note Donotuseinterpreter, Image - 07/09/2024 [facility] [address] [place] [address] [place] [address] Ultrasound Report Signed Patient: Crissy Hicks#: [id number] : 1975Acct:[id number] Age/Sex: 48 / FADM Date: 07/09/24 Loc: HO.HMGCX Attending Dr: Macho Sarkar MD Ordering Physician: Macho Sarkar MD Date of Service: 07/09/24 Procedure(s): US pelvic and transvaginal Accession Number(s): [id number] cc: Dory Ray MD; Macho Sarkar MD [...] 07/09/24 1404 DD/ 1302 TD/TT: 07/09/24 1315 Snap Shearer: [facility] External Provider IMG US PROCEDURES Final Result * CT Lung Screening Low dose (06/29/2024 10:29 AM EDT) Anatomical Region Laterality Modality Lung Computed Tomogra phy 06/29/2024 10:2 9 AM EDT Narrative 06/29/2024 11:37 AM EDT ? [facility] ?[address] ?[place] [address] ? CT Scan Report ? Signed ? Patient: KurtMarlene ?MR#: [id number] ?? 7446 ? : 1975 ?Acct:[id number] ? Age/Sex: 48 / F ?ADM Date: 06/29/24 ? Loc: HO.CT ? Attending Dr: Ella Gould PA-C ? Ordering Physician: Ella Gould PA-C ?? Date of Service: 06/29/24 ?? Procedure(s): CT lung screening ?? Accession Number(s): [id number] ? cc: Dory Ray MD; Ella Gould PA-C ? Report Number: ?? [id number]: Total DLP = ?? 43.00 mGy-cm ?? [...] DD/ 1029 ? TD/TT: 06/29/24 1035 ? Snap Shearer: ? Procedure Note Rosemary Kang - 06/29/[address] [place] [address] CT Scan Report Signed Patient: Crissy Hicks#: [id number] : 1975Acct:[id number] Age/Sex: 48 / FADM Date: 06/29/24 Loc: HO.CT Attending Dr: Elal Gould PA-C Ordering Physician: Ella Gould PA-C Date of Service: 06/29/24 Procedure(s): CT lung screening Accession Number(s): [id number] cc: Dory Ray MD; Ella Gould PA-C Report Number: [id number]: Total DLP = 43.00 mGy-cm EXAMINATION: CT [...] Richard Willson MD 06/29/2024 11:34 AM EDT Dictated By: Richard Willson MD Signed By: <Electronically signed by Richard Willson MD in OV> 06/29/24 1134 DD/ 1029 TD/TT: 06/29/24 1035 Snap Shearer: [facility] External Provider IMG CT PROCEDURES Final Result * hCG, Total, Quantitative (06/28/2024 9:31 AM EDT) Only the most recent of2 resultswithin the time period is included. HCG Quantitative 6 mIU/mL [facility] Comment:Weeks post LMP Appro ximate hCG(Last Menstrual Period) Range (mIU/ml)3 - 4 weeks 9 - 1304 - 5 weeks 75 - 2,6005 - 6 weeks 850 - 20,8006 - 7 weeks 4000 - 100,2007 - 12 weeks 11,500 - 289,63802 - 16 weeks 18,300 - 137,55771 - 29 weeks (2nd trimester) 1,400 - 53,56097 - 41 weeks (3rd trimester) 940 - [...] ORDERAB LES Final Result Performing Organization Address City/State/[facility] Co de Phone Number [facility] [address] [place] [address] [phone] * BI Mammogram Screening Tomosynthesis Bilateral (06/27/2024 11:45 AM EDT) Anatomical Region Laterality Modality Breast Bilateral Mammography 06/27/2024 11:4 5 AM EDT Narrative 07/03/2024 5:46 PM EDT ? [facility] ? [address] ?[place] [address] ?[phone] ? Mammography Report ? Signed ? Patient: Kurt,Marlene ?MR#: [id number] ?? 7446 ? : 1975 ?Acct:[id number] ? Age/Sex: 48 / F ?ADM Date: 03/26/25 ? Loc: HO.MAMMO ? Attending Dr: Dory Wen MD ? Ordering Physician: Dory Ray MD ?Results: ?? 1Negative ? Date of Service: 06/27/24 ?Follow Up: 1 Year From Orig ?? inal Mammogram ? Procedure(s): MM tomosynthesis screening BI ?? Accession Number(s): [id number] ? cc: Dory Ray MD ? EXAMINATION: [...] next mammogram. ? Electronically signed by: ??Saranya Montero DO ??07/03/2024 05:43 PM EDT ?? RP ? Dictated By: ?Saranya Montero DO ? Signed By: ?<Electronically signed by Saranya Montero, DO in OV> ? 07/03/24 1743 ? DD/ 1145 ? TD/TT: 06/27/24 1200 ? Snap Shearer: ? Procedure Note Jorge Luis, Image - 07/03/2024 [place] [facility] [address] [place] [address] Mammography Report Signed Patient: Crissy Hicks#: [id number] : 1975Acct:[id number] Age/Sex: 48 / FADM Date: 06/27/24 Loc: HO.MAMMO Attending Dr: Dory Wen MD Ordering Physician: Dory Ray MDResults: 1Negative Date of Service: 06/27/24Follow Up: 1 Year From Orig inal Mammogram Procedure(s): MM tomosynthesis screening BI Accession Number(s): [id number] cc: Dory Ray MD EXAMINATION: MM SCREENING [...] 07/03/24 1743 DD/ 1145 TD/TT: 06/27/24 1200 Snap Shearer: us Dory Wen MD IMG BI PROCEDURES Fin al Result * Syphilis Screen (06/26/2024 9:38 AM EDT) Pathologist [facility] Syphilis Screen Nonreactive Nonreactive [facility] 06/26/2024 9:38 AM EDT 06/26/2024 9:38 AM EDT Generic External Data Provider LAB BLOOD ORDERAB LES Final Result Performing Organization Address City/[facility]/ZIP Co de Phone Number [facility] [address] [place] [phone] * Hepatitis C Ab (06/26/2024 9:38 AM EDT) [facility] Hepatitis C Antibody Nonreactive Nonreactive [facility] Comment:Antibodies to HCV no t detected; does not exclude early acuteHCV infection. 06/26/2024 9:38 AM EDT 06/26/2024 9:38 AM EDT Generic External Data Provider LAB BLOOD ORDERAB LES Final Result Performing Organization Address [facility] Co de Phone Number [facility] [address] [place] [phone] * TSH with Reflex to Free T4 (06/26/2024 9:38 AM EDT) Pathologist [facility] TSH reflex Free T4 2.29 0.32 - 4.0 uIU/mL [facility] 06/26/2024 9:38 AM EDT 06/26/2024 9:38 AM EDT Generic External Data Provider LAB BLOOD ORDERAB LES Final Result Performing Organization Address [facility] Co de Phone Number [facility] [address] [place] [phone] * Hepatitis B surface antigen, EIA (06/26/2024 9:38 AM EDT) Pathologist [facility] Hepatitis B Surface Ag Negative Negative [facility] 06/26/2024 9:38 AM EDT 06/26/2024 9:38 AM EDT Generic External Data Provider LAB BLOOD ORDERAB LES Final Result Performing Organization Address [facility]/ZIP Co de Phone Number [facility] [address] [place] [address] [phone] * HIV-1/2 Antigen and Antibodies, Fourth Generation, with Reflexes (06/26/2024 9:38 AM EDT) [facility] HIV AB/AG Nonreactive Nonreactive [facility] Comment:HIV-1 p24 Ag and/or HIV-1/HIV-2 Ab not detected.A test result that is nonreactive does not exclude thepossibility of exposure to or infection with HIV-1 and/orHIV-2. Nonreactive results in this assay for individualswith prior exposure to HIV-1 and/or HIV-2 may be due toantigen and antibody levels that are below the limit ofdetection of this assay.The [employer] HIV Ag/Ab Combo assay result andsupplemental assay results should be interpreted inconjunction with the patient's clinical presentation,history and other laboratory results. If the results areinconsistent with clinical evidence, additional testing issuggested to confirm the result. 06/26/2024 9:38 AM EDT 06/26/2024 9:38 AM EDT us Generic External Data Provider LAB BLOOD ORDERAB LES Final Result Performing Organization Address City/[facility]/ZIP Co de Phone Number [facility] [address] [place] [address] [phone] * CBC (06/26/2024 9:38 AM EDT) [facility] White Blood Count 6.5 4.8 - 10.8 X10*3/uL [facility] Red Blood Count 4.30 4.20 - 5.50 X10*6/uL [facility] Hemoglobin 13.4 12.0 - 16.0 g/dl [facility] Hematocrit 39.2 37.0 - 47.0 % [facility] Mean Corpuscular Volume 91.2 80.0 - 98.0 fL [facility] Mean Corpuscular Hemoglobin 31.2 27.0 - 33.0 pg [facility] Mean Corpuscular HGB Conc 34.2 31.0 - 35.0 g/dl [facility] Red Cell Distribution Width 13.2 11.0 - 16.0 % [facility] Platelet Count 306 160 - 400 X10*3/uL [facility] Mean Platelet Volume 9.8 9.4 - 12.3 fL [facility] NRBC Pct Auto 0.0 0.0 - 0.2 /100WBC [facility] NRBC Abs Auto 0.000 0.0 - 0.012 X10*3/uL [facility] 06/26/2024 9:38 AM EDT 06/26/2024 9:38 AM EDT us Generic External Data Provider LAB BLOOD ORDERAB LES Final Result [facility] [address] [place] [phone] * LH (06/26/2024 9:38 AM EDT) Lutenizing Hormone 27.5 mIU/mL [facility] Comment:Reference Range Foll icular Phase 1.9-12.5 Mid-Cycle Peak 8.7-76.3 Luteal Phase 0.5-16.9 Postmenopausal 10.0-54.7THIS TEST WAS PERFORMED AT:[employer] [place] [id number] WONG MD 06/26/2024 9:38 AM EDT 06/26/2024 9:38 AM EDT us Generic External Data Provider LAB BLOOD ORDERAB LES Final Result Performing Organization Address City/State/[facility] de Phone Number [facility] [address] [place] [phone] * FSH (06/26/2024 9:38 AM EDT) Follicle Stimulating Hormone 58.1 mIU/mL [facility] Comment:Reference Range Foll icular Phase 2.5-10.2 Mid-cycle Peak 3.1-17.7 Luteal Phase 1.5- 9.1 Postmenopausal 23.0-116.3THIS TEST WAS PERFORMED AT:[employer] [place] [phone] WONG MD 06/26/2024 9:38 AM EDT 06/26/2024 9:38 AM EDT us Generic External Data Provider LAB BLOOD ORDERAB LES Final Result Performing Organization Address [facility] de Phone Number [facility] [address] [place] [phone] * Hematoxylin and Eosin Stain (05/14/2024 9:56 AM EST) 05/14/2024 9:56 AM EST 05/15/2024 6:10 AM EST Narrative [facility] - 05/17/2024 11:01 AM EST ----- ------- Name: Marlene Hicks ? Age/Sex: 48/F ? : 1975 Unit#: [id number] ?? Attend Dr: Macho Sarkar MD ?Re05/14/24 ?Status: DEP REF ? Location: HO.LNP ?Disch: ? ----- ------- SPEC : [id number] ?RECD: 05/15/24 ? STATUS: ??SOUT ? REQ NUM: [id number] ? TREVON: 05/14/24 ? SUBM DR: Macho [...] microscopic examination, multiple pieces in cassette [facility] Copies To: ?? Dory Ray MD ?? [facility] ?? [address] ?? [place] [address] ?? [phone] ?? Macho Sarkar MD ?? [facility] ?? [address] ?? [place] ?? [phone] ----- ------- Signed (signature on file) Galen Booker MD 05/17/241100 ? ----- ------- ? END OF REPORT ? us Generic External Data Provider LAB BLOOD ORDERAB LES Final Result [facility] [address] [place] [address] [phone] * Chlamydia/N. Gonorrhoeae RNA, TMA, Urogenitial (05/14/2024 9:34 AM EST) CT PCR NOT DETECTED Not Detect. [facility] Comment:A not detected test result [...] psychologicalconsequences. NG PCR NOT DETECTED Not Detect. [facility] Comment:A not detected test result [...] AM EST 05/14/2024 3:23 PM EST Narrative [facility] - 05/15/2024 5:56 AM EST Vaginal us Generic External Data Provider LAB MICROBIOLOGY - GENERAL ORDERABLES Final Result [facility] [address] [place] [phone] * Culture, Urine, Routine (05/14/2024 9:34 AM EST) Urine Urine specimen obtained by clean catch procedure / Unknown 05/14/2024 9:34 AM EST 05/14/2024 3:23 PM EST Comment:UACC Narrative [facility] - 05/16/2024 10:49 AM EST Urine Culture No growth. Specimen Source: Urine clean catch us Generic External Data Provider LAB MICROBIOLOGY - GENERAL ORDERABLES Final Result [facility] [address] [place] [address] [phone] * MR Brain w/o Contrast (04/14/2024 1:23 PM EST) Anatomical Region Laterality Modality Brain Magnetic Resonan ce 04/14/2024 1:23 PM EST Narrative 04/14/2024 1:25 PM EST ? [facility] ?[address] ?[place] [address] ? Magnetic Resonance Report ? Signed ? Patient: Kurt,Marlene ?MR#: [id number] ?? [id number] ? : 1975 ?Acct:[id number] ? Age/Sex: 48 / F ?ADM Date: 04/13/24 ? Loc: HO.IMC ?453-1 ? Attending Dr: Rohini STOCKTON ? Ordering Physician: Nader Stringer MD ?? Date of Service: 04/13/24 ?? Procedure(s): MR head/brain wo con ?? Accession Number(s): [id number] ? cc: Dory Ray MD; Nader Stringer MD ? CLINICAL HISTORY: slurred speech ? MR Brain without gadolinium ? Comparison: CT/SR - CT HEAD FOR STROKE - 04/13/24 17:26 EST ?? MR [place] O [id number] - 06/07/06 00:00 EST ? Findings: ?? [...] DD/ 1323 ? TD/TT: 04/14/24 1323 ? Snap Shearer: ? Procedure Note Donotpriscilainterpreter, Image - 04/14/2024 [place] [address] Magnetic Resonance Report Signed Patient: Crissy Hicks#: [id number] : 1975Acct:[id number] Age/Sex: 48 / FADM Date: 04/13/24 Loc: .[facility] 453-[address]: Rohini STOCKTON Ordering Physician: Nader Stringer MD Date of Service: 04/13/24 Procedure(s): MR head/brain wo con Accession Number(s): [id number] cc: Dory Ray MD; Nader Stringer MD CLINICAL HISTORY: slurred speech MR Brain without gadolinium Comparison: CT/SR - CT HEAD FOR STROKE - 04/13/24 17:26 EST MR - MRI BRAIN O [id number] - 06/07/06 00:00 EST Findings: No restricted diffusion. No intracranial mass or hemorrhage. No midline shift. No hydrocephalus. Vascular flow voids are intact. Orbital contents are unremarkable. The sinuses and mastoid air cells are clear. No focal bone lesion. IMPRESSION: No acute findings. This document has been electronically signed by: Irene Cotsa MD on 04/14/2024 13:23:29 Dictated By: Irene Costa MD Signed By: <Electronically signed by Irene Costa MD in OV> 04/14/24 1324 DD/ 1323 TD/TT: 04/14/24 1323 Snap Shearer: [facility] External Provider IMG MRI PROCEDURES Edited Result - Final * CTA Head Stroke w/ and w/o Contrast (04/13/2024 7:07 PM EST) Anatomical Region Laterality Modality Computed Tomogra phy 04/13/2024 7:07 PM EST Narrative 04/13/2024 7:08 PM EST ? [facility] ?[address] ?[place] [address] ? CT Scan Report ? Signed ? Patient: Kurt,Marlene ?MR#: [id number] ?? [id number] ? : 1975 ?Acct:[id number] ? Age/Sex: 48 / F ?ADM Date: 04/13/24 ? Loc: HO.ED ? Attending Dr: ? Ordering Physician: Thuy Duffy DO ?? Date of Service: 04/13/24 ?? Procedure(s): CT angio head neck STROKE ?? Accession Number(s): [id number] ? cc: Dory Ray MD; Thuy Duffy DO ? Report Number: ?? [id number]: Total DLP = 1542.00 mGy-cm ? CLINICAL HISTORY: aphasia ? CT angiography head and neck with contrast and CT venogram of the head. 3D ?? Postprocessing. ? Comparison: CR/SR - NECK SOFT TISSUE [id number] - 09/08/18 23:26 EDT ? Findings: ?? [...] ? DD/ 06 ? TD/TT: 04/13/241906 ? Snap Shearer: ? Procedure Note Rosemary Kang - 04/13/[address] [address] [address] Scan Report Signed Patient: Crissy Hicks#: [id number] : 1975Acct:[id number] Age/Sex: 48 / FADM Date: 04/13/24 Loc: HO.ED Attending Dr: Ordering Physician: Thuy Duffy DO Date of Service: 04/13/24 Procedure(s): CT angio head neck STROKE Accession Number(s): [id number] cc: Dory Ray MD; Thuy Duffy DO Report Number: [id number]: Total DLP = 1542.00 mGy-cm CLINICAL HISTORY: aphasia CT angiography head and neck with contrast and CT venogram of the head. 3D Postprocessing. Comparison: CR/SR - NECK SOFT TISSUE [id number] - 09/08/18 23:26 EDT Findings: Evaluation is [...] in OV> 04/13/241906 DD/ 06 TD/TT: 04/13/241906 Snap Shearer: [facility] External Provider IMG CT PROCEDURES Final Result * (ABNORMAL) Urinalysis, Complete, with Reflex to Culture (04/13/2024 6:20 PM EST) Color Urine Yellow [facility] Appearance Urine Clear [facility] PH 7.0 5.0 - 9.0 [facility] Glucose Urine UA Negative Negative mg/dL [facility] Urine Blood Large (3+)(A) Negative [facility] Specific Morrison - Urine 1.015 1.005 - 1.025 [facility] Urine Protein Negative Neg-Trace mg/dL [facility] Urine Ketones Negative Negative mg/dL [facility] Nitrite Urine Negative Negative [facility] Leukocyte Esterase Urine Trace(A) Negative [facility] RBC Urine >20(A) 0 - 2 /HPF [facility] Urine WBC 0-5 0 - 5 /HPF [facility] Urine Squamous Epithelial Cell 0-2 0 - 2 /HPF [facility] Urine Bacteria None Seen None Seen [facility] Hyaline Casts, Urine 0-2 0 - 2 /LPF [facility] 04/13/2024 6:20 PM EST 04/13/2024 6:23 PM EST Narrative [facility] - 04/13/2024 6:45 PM EST [id number], Clean Catch us Generic External Data Provider LAB URINE ORDERAB LES Final Result [facility] [address] [place] [phone] * Drug Monitoring, Panel 1, Screen, Urine (04/13/2024 6:20 PM EST) Pathologist [facility] Opiate Screen Urine Not Detected Not Detect [facility] Comment:Opiate cut-off is 30 0 ng/mL.Positive results are unconfirmed and should not be used fornon-medical purposes. Barbiturates, Urine Not Detected Not Detect [facility] Comment:Barbiturate cut-off is 200 ng/mL.Positive results are unconfirmed and should not be used fornon-medical purposes. Phencyclidine Screen Urine Not Detected Not Detect [facility] Comment:Phencyclidine cut-of f is 25 ng/mL.Positive results are unconfirmed and should not be used fornon-medical purposes. Amphetamine Screen Urine Not Detected Not Detect [facility] Comment:Amphetamine cut-off is 1000 ng/mL.Positive results are unconfirmed and should not be used fornon-medical purposes. Benzodiazepines Screen Urine Not Detected Not Detect [facility] Comment:Benzodiazepine cut-o ff is 200 ng/mL.Positive results are unconfirmed and should not be used fornon-medical purposes. Cocaine Screen Urine Not Detected Not Detect [facility] Comment:Cocaine cut-off is 3 00 ng/mL.Positive results are unconfirmed and should not be used fornon-medical purposes. Cannabinoid Screen Urine Not Detected Not Detect [facility] Comment:Cannabinoid cut-off is 50 ng/mL.Positive results are unconfirmed and should not be used fornon-medical purposes. Methadone Screen, Urine Not Detected Not Detect ng/mL [facility] Comment:Methadone cut-off is 300 ng/mL.Positive results are unconfirmed and should not be used fornon-medical purposes. FENTANYL URINE Not Detected Not Detect [facility] Comment:Fentanyl cut-off is 1 ng/mL.Positive results are unconfirmed and should not be used fornon-medical purposes. Oxycodone Urine Screen Not Detected Not Detect ng/mL [facility] Comment:Oxycodone cut-off is 100 ng/mL.Positive results are unconfirmed and should not be used fornon-medical purposes. Buprenorphine Screen Not Detected Not Detect ng/mL [facility] Comment:Buprenorphine cut-of f is 5 ng/mL.Positive results are unconfirmed and should not be used fornon-medical purposes. 04/13/2024 6:20 PM EST 04/13/2024 6:23 PM EST us Generic External Data Provider LAB URINE ORDERAB LES Final Result [facility] [address] [place] [phone] * HPV mRNA E6/E7 w/Reflex to HPV Genotypes 16, 18/45 (07/19/2023 9:21 AM EDT) HPV nRNA E6/E7 Not Detected Not Detected [facility] Comment:Methodology: Transcr iption-Mediated AmplificationThis assay detects E6/E7 viral messenger RNA (mRNA) from 14high-risk HPV types (16,18,31,33,35,39,45,51,52,56,58,59,66,68).Cervical sources are required for HPV testing.If a vaginal source from a patient who has had atotal hysterectomy with removal of cervix wassubmitted, please contact the testing laboratoryfor alternative testing options.For additional information, please refer tohttp://education.[employer]/faq/ARF476f8(This link if provided for information/educational purposes only.)THIS TEST WAS PERFORMED AT:[employer] [place] [phone] WONG MD HPV mRNA E6/E7 [facility] HPV 16 RNA [facility] HPV 18/45 RNA [facility] 07/19/2023 9:21 AM EDT 07/20/2023 9:05 AM EDT us Generic External Data Provider LAB CYTOLOGY ORDE RABJANAK Final Result [facility] [address] [place] [address] [phone] * (ABNORMAL) Lipid Panel, Standard (06/16/2023 10:01 AM EDT) Triglycerides 107 <150 mg/dL [facility] Comment:Desirable Triglyceri de: less than 150 mg/dLBorderline High Triglyceride 150-199 mg/dLHigh Triglyceride: 200-499 mg/dLVery High Triglyceride: greater than or equal to 5OO mg/dL Cholesterol 191 <200 mg/dL [facility] Comment:Desirable Cholestero l: less than 200 mg/dLBorderline High Cholesterol: 200-239 mg/dLHigh Cholesterol: greater than 239 mg/dL LDL Cholesterol Calculated 137(H) <100 mg/dL [facility] Comment:Desirable LDL: less than 100 [...] Wen MD LAB BLOOD ORDERABLES Final Result [facility] [address] [place] [phone] * Pap Smear (02/21/2023 2:25 PM EST) 02/21/2023 2:25 PM EST 02/22/2023 10:30 AM EST Narrative [facility] - 03/07/2023 8:53 PM EST ----- ------- Name: Marlene Hicks ? Age/Sex: 47/F ? : 1975 Unit#: [id number] ?? Attend Dr: Macho Sarkar MD ?Re02/21/23 ?Status: DEP REF ? Location: HO.LNP ?Disch: ? ----- ------- SPEC : [id number] ?RECD: 02/22/23 ? STATUS: ??SOUT ? REQ NUM: [id number] ? TREVON: 02/21/233 ? SUBM DR: Macho Sarkar MD ? [...] 66, 68) ?? HPV testing performed by [facility], [place], [place]. ??See reference laboratory ?? portion of the EMR for entire report. ?Clinical Information LMP: Postmenopausal Previous PAP test: Unknown date/findings Other history: Abnormal uterine and vaginal bleeding. ? Material Received ?? ThinPrep-Cervical Copies To: ?? Dory Ray MD ?? [address] [facility] ?? Jesse MD ?? [phone] ?? Macho Sarkar MD ?? [address] [facility] [address] [place] ?? Jesse MD ?? [phone] ----- ------- Signed (signature on file) Abbie Saunders MD 03/07/232052 ? ----- ------- ? END OF REPORT ? us Generic External Data Provider LAB CYTOLOGY NEFTALI ROLLINS Final Result [facility] [address] [place] [address] [phone] * Cologuard?? colon cancer screening (12/27/2022 9:47 AM EDT) Cologuard Result Negative Negative 01/07/20 23 5:43 PM EDT [facility] (CLIA #:[id number]) Comment: NEGATIVE TEST RESULT. A negative Cologuard [...] cancer. ??Following a negative Cologuard result, the [place] Cancer Society and U.S. Multi-Society Task Force screening guidelines recommend a Cologuard re-screening interval of 3 years. References: [place] [employer] Society Guideline for Colorectal Cancer Screening: https://www.cancer.org/cancer/frnjr-kyucvq-xaopuf/gocjzkjdd-oswxaeejw-ilyqkwo/ac s-rec ommendations.html.; Yossi DK, Katja CR, Mona LugoK, Colorectal Cancer Screening: Recommendations for Physicians and Patients from the U.S. Multi-Society Task Force on Colorectal Cancer Screening , Am J Gastroenterology 2017; 112:2840-3362. TEST DESCRIPTION: Composite algorithmic analysis of stool [...] (Anum Adan al, N Engl J Med 2014;370(14):8860-9034.) Cologuard may produce a false negative or false positive result (no colorectal cancer or precancerous polyp present at colonoscopy follow up). A negative Cologuard test result does not guarantee the absence of CRC or advanced adenoma (pre-cancer). The current Cologuard screening interval is every 3 years. ([place] Cancer Society and U.S. Multi-Society Task Force). Cologuard performance data in a 10,000 patient pivotal study using colonoscopy as the reference method can be accessed at the following location: www.[employer]/results. Additional description of the Cologuard test process, warnings and precautions can be found at www.[employer].com. Stool specimen (specimen) 12/27/2022 9:47 AM EDT 12/29/2022 7:44 PM EDT Dory Wen MD LAB MOLECULAR DIAGNOS TICS ORDERABLES Final Result [facility] (CLIA #:[id number]) [place] [address], from Last 3 Months or Most Recently Relevant to Health Maintenance Insurance [facility] ADULT * Guarantor: Marlene Hicks Account Type Relation to Patient Date of Phone Billing Address Personal/Family Self [address] [place] [address] Care Teams Shelter Case Manager Relationship Specialty Start Date End Date Dory Ray MD [address] [place] [phone] PCP - General Family Medicine 01/03/19 Jeane Lemons Simulation SpecialistAeronautical Test Engineer 11/09/23
--- OUTSIDE RECORDS SUMMARY | 2024-07-12 08:31 | XMS_ITS | Encounter Summary ---
Author Organization [employer] Address [address] [place] [address] Care Team Providers Care Mail Sorter And Delivery Name Role Phone Dory Ray MD Primary Care Provide r Reason for Visit * Reason Comments Med Refill Encounter Details Date Type Department Care Team ([facility] st Contact Info) Description 04/08/2024 Refill [facility] [address] [place] [address] Dory Ray MD [address] [place] [address] Chronic right-sided low back pain with right-sided [...] of the following? None of the above;Lead [place] or Pipes;Pests such as bugs, ants, or [...] Description 07/18/2024 2:45 PM EDT Office Visit [address] [address] Dory Ray MD [address] [place] [phone] 08/14/2024 11:00 AM EDT Office Visit [address] [address] 08/15/2024 9:00 AM EDT Office Visit [address] [address] Dory Ray MD [address] [place] [address] documented as of this encounter Goals Goal [...] documented as of this encounter Care Teams Mail Sorter And Delivery Relationship Specialty Start Date End Date Dory Ray MD [address] [place] [address] PCP - General Family Medicine 01/03/19 Jeane Lemons Rate ExaminerMedical Lab Scientist 11/09/23 documented as of this encounter
--- OUTSIDE RECORDS SUMMARY | 2024-07-12 08:31 | XMS_ITS | Encounter Summary ---
Author Organization [employer] Address [address] [facility] [address] [place] [address] Care Team Providers Care Drop Wire Stringer Name Role Phone Dory Ray MD Primary Care Provide r Encounter Details Date Type Department Care Team (Late st Contact Info) Description 07/10/2024 11:00 AM EDT Office Visit [facility] [address] [place] [address] Emilia De La Torre FNP [address] [place] [address] Bulging lumbar disc (Primary Dx); Long-term current use of opiate analgesic; Essential hypertension Social History Tobacco Use Types [...] the past 12 months, has t he [employer], gas, oil or water [employer] threatened to shut off services in your [...] AM EDT documented as of this encounter Progress Notes * Emilia De La Torre, MANAGER MONEY - 07/10/2024 11:00 AM EDT Subjective: Marlene Hicks is a 48 y.o. female w/ PMH asthma-COPD overlap syndrome, GERD, anxiety/depression,CTS, and fibromyalgia who presents to the office for - Chronic Pain Clinic Group visits. Initial Group visit: 06/14/23 Group Topic: Art Therapy Reports that she is currently using Tramadol 50mg in the AM and in the afternoon. Not using before bed as it has been causing her SE at night such as ISSA/insomnia. Would be interested in considering non-opioid medication for pain. Continues with APAP PRN. Will send message to her PCP to see if sooner follow up available to further discuss. Chronic Pain History: Associated Diagnosis: chronic pain syndrome, fibromyalgia, chronic low back pain Relevant Imaging: Lumbar MRI Feb 2022 1. At L3-L4 there is progressive mild disc height loss and shallow left foraminal protrusion with mild narrowing of the left subarticular zone and progressive mild left more than right neural foraminal stenosis without foraminal nerve root compression. 2. At L2-L3 there is unchanged mild disc bulging without nerve root compression. 3. At L4-L5 there is mild disc bulging with mild to moderate facet arthropathy but no spinal canal or neural foraminal stenosis. 4. At L5-S1 there is a hypoplastic disc. XR Left knee & left foot 10/17/23: Moderate joint effusion left knee. Moderate degenerative changes of first metatarsophalangeal joint. MRI thoracic spine 11/28/23: Normal alignment of thoracic vertebral bodies, intervertebral disc spaces maintained. No findings of fracture, listhesis, or to suggest acute disc protrusion. No findings of acute process. Current pharm tx: Medication: Tramadol 50mg Q6hr PRN. States taking medication as prescribed. Also tx with Cymbalta 30mg daily and gabapentin Past ineffective med trials: Lyrica - dc due to SE - dizziness Non-pharm tx: CBD oil on feet, lidocaine patches, heating pad, fruit/vegetable juice, acupuncture Related Specialists: Following with therapist SANDRITA Other substance use: Tobacco: following with pharmacy smoking cessation group Review of Systems Constitutional: Negative for chills and fatigue. HENT: Negative for congestion. Respiratory: Negative for cough and wheezing. Cardiovascular: Negative for chest pain and palpitations. Musculoskeletal: Positive for arthralgias. Physical Exam Constitutional: Appearance: Normal appearance. Pulmonary: Effort: Pulmonary effort is normal. Neurological: Mental Status: She is alert and oriented to person, place, and time. Psychiatric: Mood and Affect: Mood normal. Behavior: Behavior normal. Problem List Items Addressed This Visit Circulatory Essential hypertension Relevant Medications hydroCHLOROthiazide (HYDRODiuril) 25 MG tablet Musculoskeletal Bulging lumbar disc - Primary Current Assessment & Plan History of chronic pain associated with fibromyalgia and lumbar back pain Good engagement and participation with Group Medical Visit model Encouraged multifactorial approach to pain control including pharm and non-pharm modalities Relevant Orders POCT MARÍA-14 Urine Drug Screen (Completed) Other Long-term current use of opiate analgesic Overview Medication: Tramadol 50mg Q6H PRN Indication: bulging lumbar disc, fibromyalgia Last [facility] Agreement: 03/13/24 Additional considerations/risk factors: BZO Tier II ([facility] visits Q3 months) - last evaluated Mar 2024 by PCP Current Assessment & Plan Timeline: - 07/10/24: Group - utox/pill count as expected. Interested consideration of non- opioid pain med. Relevant Orders POCT MARÍA-14 Urine Drug Screen (Completed) Follow up: 1-3 months for Group Chronic Pain Clinic. Follow up as scheduled with PCP, sooner as needed. * Danyell Garrett RN - 07/10/2024 11:00 AM EDT .[facility] telephone directory deliverer: PDMP reviewed today. Last fill date: 06/19/24 (Tramadol 50mg qid) count was (33), anticipated (27) to be remaining. BZO from an outside provider. Pt c/o of insomnia d/t Tramadol. States every time she takes Tramadol she can't fall/ stay asleep. Asking for another pain med, preferably not a narcotic. Pt states OTC pain meds do not provide as much pain relief. Pt has a f/u with PCP 08/15/24 but wants to try a different pain med before that. PCPnotified. .UTOX completed. Positive for (BZO, TCA), Negative for AMP, BAR, BUP, BILL, FTY, MDMA, MET, MOP, MTD, OXY, PCP, THC. UTOX as expected. documented in this encounter Miscellaneous Notes * Assessment & Plan Note - MARIE Sue - 07/10/2024 2:24 PM EDTAssociated Problem(s): Long-term current use of opiate analgesic Timeline: - 07/10/24: Group - utox/pill count as expected. Interested consideration of non- opioid pain med. * Assessment & Plan Note - MARIE Sue - 07/10/2024 2:23 PM EDTAssociated Problem(s): Bulging lumbar disc History of chronic pain associated with fibromyalgia and lumbar back pain Good engagement and participation with Group Medical Visit model Encouraged multifactorial approach to pain control including pharm and non-pharm modalities documented in this encounter Plan of Treatment Upcoming Encounters Date Type Department Care Team (Late st Contact Info) Description 07/18/2024 2:45 PM EDT Office Visit [address] [address] Dory Ray MD [address] [place], [place] [phone] 08/14/2024 11:00 AM EDT Office Visit [address] [address] 08/15/2024 9:00 AM EDT Office Visit [address] [phone] Dory Ray MD [address] [place], [place] [phone] documented as of this encounter Goals Goal [...] disc Long-term current use of opiate analgesic documented in this encounter Results * POCT MARÍA-14 Urine Drug Screen (07/10/2024 1:11 PM EDT) Benzodiazepines Screen, Urine Positive TCA, Urine Positive Urine Urine specimen obtained by clean catch procedure / Unknown 07/10/2024 1:11 PM EDT Emilia SALAZAR POINT OF CARE TEST ENTER/EDIT ORDERABLES Final Result documented in this encounter Visit Diagnoses Diagnosis Bulging lumbar disc- Primary Long-term current use of opiate analgesic Encounter for long-term (current) use of other medications Essential hypertension Unspecified essential hypertension documented in this encounter Additional Health Concerns Assessment Noted Time PHQ-9 Depression Total Score: 24 024 9:01 AM EDT documented as of this encounter Care Teams Drop Wire Stringer Relationship Specialty Start Date End Date Dory Ray MD [address] [place] [address] PCP - General Family Medicine 01/03/19 Jeane Lemons Template Reproduction TechnicianService Writer Advisor 11/09/23 documented as of this encounter
--- OUTSIDE RECORDS SUMMARY | 2024-07-12 08:31 | XMS_ITS | Encounter Summary ---
Author Organization [employer] Address [address] [place] [address] Care Team Providers Care Librarian Helper Name Role Phone Dory Ray MD Primary Care Provide r Reason for Visit * Reason Onset Date Comments Appointment Request 07/10/2024 Encounter Details Date Type Department Care Team ([facility] st Contact Info) Description 07/10/2024 Telephone [facility] [address] [place], [place] [phone] Dory Ray MD [address] [place] [address] Appointment Request Social History Tobacco Use Types Packs/Day Years [...] the past 12 months, has t he [email or web address], gas, oil or water [employer] threatened to shut off services in your [...] encounter Miscellaneous Notes * Telephone Encounter - Adamaris New [place] - 07/10/2024 2:35 PM EDT Call pt to schedule a follow-up medication concern appt. No answer leave-voice to call clinic back.If pt call back please schedule pt with PCP for follow-up medication concern. documented in this encounter Plan of Treatment Upcoming Encounters Date Type Department Care Team (Late st Contact Info) Description 07/18/2024 2:45 PM EDT Office Visit [facility] [address] [place] [phone] Dory Ray MD [address] [place] [address] 08/14/2024 11:00 AM EDT Office Visit [facility] [address] [place] [address] 08/15/2024 9:00 AM EDT Office Visit [facility] [address] [place] [address] Dory Ray MD [address] [place] [address] documented as of this encounter Goals Goal [...] documented as of this encounter Care Teams Librarian Helper Relationship Specialty Start Date End Date Dory Ray MD [address] [place] [address] PCP - General Family Medicine 01/03/19 Jeane Lemons Framing Mill SupervisorSausage Wrapper 11/09/23 documented as of this encounter
--- OUTSIDE RECORDS SUMMARY | 2024-07-12 08:31 | XMS_ITS | Encounter Summary ---
Author Organization [employer] Address 75 [facility] [address] 7[address] [place] [address] Care Team Providers Care Returning Officer Name Role Phone oDry Ray MD Primary Care Provide r Reason for Visit * Reason Onset Date Comments Nurse Triage 10/11/2022 Encounter Details Date Type Department Care Team ([facility] st Contact Info) Description 10/11/2022 Telephone [facility] [address] [place] [address] Dory Ray MD [address] [place] [address] Nurse Triage Social History Tobacco Use Types [...] 10/11/2022 11:39 AM EDT Triage call with [employer] professional [place] [id number] Pt calls with numerous concerns but, abdominal [...] abdominal discomfort. Advised Pt to come to [facility] to be seen and Pt reports will [...] accepted this outcome Please contact pt at [phone] (Liberian speaker) documented in this encounter Plan of Treatment Upcoming Encounters Date Type Department Care Team (Late st Contact Info) Description 07/18/2024 2:45 PM EDT Office Visit [facility] [address] [place] [address] Dory Ray MD [address] [place] [address] 08/14/2024 11:00 AM EDT Office Visit [address] [address] 08/15/2024 9:00 AM EDT Office Visit [facility] [address] [place] [address] Dory Ray MD [address] [place], [place] [phone] documented as of this encounter Visit Diagnoses Not on filedocumented in this encounter Additional Health Concerns Assessment Noted Time PHQ-9 Depression Total Score: 21 023 9:24 AM EDT documented as of this encounter Care Teams Returning Officer Relationship Specialty Start Date End Date Dory Ray MD [address] [place], [place] [phone] PCP - General Family Medicine 01/03/19 Jeane Lemons Supervisor BinderyGear Shaver Set Up Operator 11/09/23 documented as of this encounter
--- OUTSIDE RECORDS SUMMARY | 2024-07-12 08:31 | XMS_ITS | Encounter Summary ---
Author Organization [employer] Address [address] [facility] [address] 7t [place] [address] Care Team Providers Care Sound Effects Person Name Role Phone Dory Ray MD Primary Care Provide r Reason for Visit * Reason Onset Date Comments Chart Prep 07/11/2024 Encounter Details Date Type Department Care Team ([facility] st Contact Info) Description 07/11/2024 Telephone [facility] [address] [place] [address] Dory Ray MD 230 [place] [address] Chart Prep Social History Tobacco Use Types Packs/Day Years [...] Telephone Encounter - Dustin Hickey [place] - 07/11/2024 2:52 PM EDT Chart Prep Labs: done Images: done Vaccines due: yes Referrals: BOOKED Screenings: not applicable Overdue care gaps: PHQ-9 and Disability screen documented in this encounter Plan of Treatment Upcoming Encounters Date Type Department Care Team (Late st Contact Info) Description 07/18/2024 2:45 PM EDT Office Visit [facility] [address] [place] [address] Dory Ray MD [address] [place] [address] 08/14/2024 11:00 AM EDT Office Visit [address] [address] 08/15/2024 9:00 AM EDT Office Visit [facility] [address] [place] [address] Dory Ray MD 230 [place] [address] documented as of this encounter Goals Goal [...] documented as of this encounter Care Teams Sound Effects Person Relationship Specialty Start Date End Date Dory Ray MD [address] [place] [address] PCP - General Family Medicine 01/03/19 Jeane Lemons Tow Motor OperatorIndustrial Commercial Groundskeeper 11/09/23 documented as of this encounter
--- OUTSIDE RECORDS SUMMARY | 2024-07-12 08:32 | XMS_ITS | Encounter Summary ---
Author Organization [employer] Address 75 [facility] [address] 7t [place] [address] Care Team Providers Care Pipe Out Worker Name Role Phone Dory Ray MD Primary Care Provide r Reason for Visit * Reason Comments Med Refill Encounter Details Date Type Department Care Team ([facility] st Contact Info) Description 12/29/[address] [facility] & PEDS [address] [place] [address] Sunshine James, DO [address] [place] [address] Strain of neck muscle, initial encounter; Neck [...] Description 07/18/2024 2:45 PM EDT Office Visit [facility] MED[facility]INE [address] [place] [address] Dory Ray MD [address] [place] [address] 08/14/2024 11:00 AM EDT Office Visit [address] [address] 08/15/2024 9:00 AM EDT Office Visit [address] [address] Dory Ray MD [address] [place] [address] documented as of this encounter Visit Diagnoses Diagnosis Strain of neck muscle, initial encounter Neck pain Cervicalgia documented in this encounter Additional Health Concerns Assessment Noted Time PHQ-9 Depression Total Score: 24 023 9:07 AM EDT documented as of this encounter Care Teams Pipe Out Worker Relationship Specialty Start Date End Date Dory Ray MD [address] [place] [address] PCP - General Family Medicine 01/03/19 Jeane Lemons Certified Legal Secretary SpecialistPhysics Professor 11/09/23 documented as of this encounter
--- OUTSIDE RECORDS SUMMARY | 2024-07-12 08:32 | XMS_ITS | Encounter Summary ---
Author Organization [employer] Address 75 [facility] 7t [place] [address] Care Team Providers Care Children Teacher Name Role Phone Dory Ray MD Primary Care Provide r Reason for Visit * Reason Comments Med Refill Encounter Details Date Type Department Care Team ([facility] Contact Info) Description 11/16/2022 Refill [facility] [address] [place] [address] [phone] Eden Cobb MD [address] [place] [address] [phone] Anxiety Social History Tobacco Use Types Packs/Day [...] Upcoming Encounters Date Type Department Care Team ([facility] Contact Info) Description 07/18/2024 2:45 PM EDT Office Visit [facility] 230 [place], [place] [phone] Dory Ray MD 230 [place], [place] [phone] 08/14/2024 11:00 AM EDT Office Visit [facility] [address] [place] [address] 08/15/2024 9:00 AM EDT Office Visit [facility] [address] [place] [address] Dory Ray MD [address] [place] [address] documented as of this encounter Visit Diagnoses Diagnosis Anxiety Anxiety state, unspecified documented in this encounter Additional Health Concerns Assessment Noted Time PHQ-9 Depression Total Score: 21 023 9:24 AM EDT documented as of this encounter Care Teams Children Teacher Relationship Specialty Start Date End Date Dory Ray MD [address] [place] [address] PCP - General Family Medicine 01/03/19 Jeane Lemons Brick LoaderCurtain Worker 11/09/23 documented as of this encounter
--- OUTSIDE RECORDS SUMMARY | 2024-07-12 08:32 | XMS_ITS | Encounter Summary ---
Demographics Address [address] [facility] [address] [place] [address] Work Phone Mobile Phone Email Address Preferred Language es Marital Status Unknown Holiness Affiliation Unknown Race Other Race Ethnic Group or Author Organization [employer] Address [address] [facility] [address] 7t [place] [address] Care Team Providers Care Shoe Repair Supervisor Name Role Phone Dory Ray MD Primary Care Provide r Encounter Details Date Type Department Care Team (Late st Contact Info) Description 07/09/2024 Orders Only [facility] External Provider, [facility] Social History Tobacco Use Types Packs/Day Years [...] Description 07/18/2024 2:45 PM EDT Office Visit [address] [address] Dory Ray MD [address] [place] [address] 08/14/2024 11:00 AM EDT Office Visit [address] [address] 08/15/2024 9:00 AM EDT Office Visit [address] [address] Dory Ray MD [address] [place] [address] documented as of this encounter Goals Goal [...] EDT ? [facility] ?[address] [facility] [address] [facility] [address] ? [place] [address] ? Ultrasound Report ? Signed ? Patient: Kurt,Marlene ?MR#: [id number] ?? [id number] ? : 1975 ?Acct:[id number] ? Age/Sex: 48 / F ?ADM Date: 07/09/24 ? Loc: HO.HMGCX ? Attending Dr: Macho Sarkar MD ? Ordering Physician: Macho Sarkar MD ?? Date of Service: 07/09/24 ?? Procedure(s): US pelvic and transvaginal ?? Accession Number(s): [id number] ? cc: Dory Ray MD; Macho Sarkar [...] signed by Richard Willson MD in OV> ?07/09/244 ? DD/ 1302 ? TD/TT: 07/09/24 1315 ? Hedis Nurse: ? Procedure Note Donotpriscilainterpreter, Image - 07/09/2024 [facility] [address] [place] [address] [place] [address] Ultrasound Report Signed Patient: Crissy Hicks#: [id number] : 1975Acct:[id number] Age/Sex: 48 / FADM Date: 07/09/24 Loc: HO.HMGCX Attending Dr: Macho Sarkar MD Ordering Physician: Macho Sarkar MD Date of Service: 07/09/24 Procedure(s): US pelvic and transvaginal Accession Number(s): [id number] cc: Dory Ray MD; Macho Sarkar MD [...] Richard Willson MD 07/09/2024 02:04 PM EDT RP Dictated By: Richard Willson MD Signed By: <Electronically signed by Richard Willson MD in OV> 07/09/24 1404 DD/ 1302 TD/TT: 07/09/24 1315 Hedis Nurse: [facility] External Provider IMG US PROCEDURES Final Result documented in this encounter Visit Diagnoses Not on filedocumented in this encounter Additional Health Concerns Assessment Noted Time PHQ-9 Depression Total Score: 24 024 9:01 AM EDT documented as of this encounter Care Teams Shoe Repair Supervisor Relationship Specialty Start Date End Date Dory Ray MD [address] [place] [address] PCP - General Family Medicine 01/03/19 Jeane Lemons Proposal ManagerTeacher Counselor 11/09/23 documented as of this encounter
--- OUTSIDE RECORDS SUMMARY | 2024-07-12 08:32 | XMS_ITS | Encounter Summary ---
Author Organization [employer] Address 75 [facility] 7t [place] [address] Care Team Providers Care Duct Installer Name Role Phone Dory Ray MD Primary Care Provide r Reason for Visit * Reason Comments Med Refill Encounter Details Date Type Department Care Team (Late Contact Info) Description 11/26/2022 Refill [facility] [address] [place] [address] [phone] Name, MD Soy 230 [place] [address] Migraine without status migrainosus, not intractable, unspecified [...] Description 07/18/2024 2:45 PM EDT Office Visit [facility] [address] [place] [address] Dory Ray MD 230 [place] [address] 08/14/2024 11:00 AM EDT Office Visit [facility] [address] [place] [address] [phone] 08/15/2024 9:00 AM EDT Office Visit [facility] [address] [place] [address] Dory Ray MD [address] [place] [address] documented as of this encounter Visit Diagnoses Diagnosis Migraine without status migrainosus, not intractable, unspecified migraine type documented in this encounter Additional Health Concerns Assessment Noted Time PHQ-9 Depression Total Score: 21 023 9:24 AM EDT documented as of this encounter Care Teams Duct Installer Relationship Specialty Start Date End Date Dory Ray MD [address] [place] [address] PCP - General Family Medicine 01/03/19 Jeane Lemons Tube CarrierRoller Shop Supervisor 11/09/23 documented as of this encounter
--- OUTSIDE RECORDS SUMMARY | 2024-07-12 08:32 | XMS_ITS | Encounter Summary ---
Author Organization [employer] Address [address] [facility] [address] 7t [place] [address] Care Team Providers Care Lpn Cma Name Role Phone Dory Ray MD Primary Care Provide r Encounter Details Date Type Department Care Team (Late st Contact Info) Description 01/12/2023 Abstract [facility] MED[facility]INE 230 [place] [address] Dory Ray MD 230 [place] [address] Social History Tobacco Use Types Packs/Day Years [...] Description 07/18/2024 2:45 PM EDT Office Visit [facility] MED[facility]INE [address] [place] [address] Dory Ray MD [address] [place] [address] 08/14/2024 11:00 AM EDT Office Visit [facility]INE [address] [place] [address] 08/15/2024 9:00 AM EDT Office Visit [address] [address] Dory Ray MD [address] [place] [address] documented as of this encounter Visit Diagnoses Not on filedocumented in this encounter Additional Health Concerns Assessment Noted Time PHQ-9 Depression Total Score: 24 023 9:07 AM EDT documented as of this encounter Care Teams Lpn Cma Relationship Specialty Start Date End Date Dory Ray MD [address] [place] [address] [phone] PCP - General Family Medicine 01/03/19 Jeane Lemons Manager RecruitingAssistant Toddler Teacher 11/09/23 documented as of this encounter
--- OUTSIDE RECORDS SUMMARY | 2024-07-12 08:32 | XMS_ITS | Encounter Summary ---
Author Organization [employer] Address [address] [facility] [address] 7t [place] [address] Care Team Providers Care Manager Leadership Development Name Role Phone Dory Ray MD Primary Care Provide r Reason for Visit * Reason Onset Date Comments antibiotic 12/09/2022 Encounter Details Date Type Department Care Team ([facility] st Contact Info) Description 12/09/2022 Telephone [facility] 230 [place], [place] [phone] Dashawn Garcia, DDS 230 [place], [place] [phone] antibiotic Social History Tobacco Use Types Packs/Day [...] after 6 on 12/09 to speak to chief of safety and protection and nothing was sent to pharmacy chief of safety and protection side either. Can something be sent to [...] she can call back and speak to chief of safety and protection Or go to the emergency room. Patient understood DR documented in this encounter Plan of Treatment Upcoming Encounters Date Type Department Care Team (Late st Contact Info) Description 07/18/2024 2:45 PM EDT Office Visit [facility] [address] [place] [address] Dory Ray MD [address] [place] [address] 08/14/2024 11:00 AM EDT Office Visit [address] [address] 08/15/2024 9:00 AM EDT Office Visit [address] [address] Dory Ray MD [address] [place] [address] documented as of this encounter Visit Diagnoses Not on filedocumented in this encounter Additional Health Concerns Assessment Noted Time PHQ-9 Depression Total Score: 21 023 9:24 AM EDT documented as of this encounter Care Teams Manager Leadership Development Relationship Specialty Start Date End Date Dory Ray MD [address] [place] [address] PCP - General Family Medicine 01/03/19 Jeane Lemons Head ChargerPot Annealer 11/09/23 documented as of this encounter
--- OUTSIDE RECORDS SUMMARY | 2024-07-12 08:32 | XMS_ITS | Encounter Summary ---
Author Organization [employer] Address 75 [facility] 7t [place] [address] Care Team Providers Care Health Promotion Coordinator Name Role Phone Dory Ray MD Primary Care Provide r Reason for Visit * Reason Comments Med Refill Encounter Details Date Type Department Care Team (Late Contact Info) Description 12/09/2022 Refill [facility] [address] [place] [address] [phone] Dory Ray MD [address] [place] [address] [phone] Anxiety Social History Tobacco Use Types Packs/Day [...] 2:45 PM EDT Office Visit [facility] [address] [place] [address] [phone] Dory Ray MD [address] [place] [address] [phone] 08/14/2024 11:00 AM EDT Office Visit [facility] [address] [place] [address] [phone] 08/15/2024 9:00 AM EDT Office Visit [facility] [address] [place] [address] Dory Ray MD [address] [place] [address] documented as of this encounter Visit Diagnoses Diagnosis Anxiety Anxiety state, unspecified documented in this encounter Additional Health Concerns Assessment Noted Time PHQ-9 Depression Total Score: 21 023 9:24 AM EDT documented as of this encounter Care Teams Health Promotion Coordinator Relationship Specialty Start Date End Date Dory Ray MD [address] [place] [address] PCP - General Family Medicine 01/03/19 Jeane Lemons Packer InspectorMeal Attendant 11/09/23 documented as of this encounter
--- OUTSIDE RECORDS SUMMARY | 2024-07-12 08:32 | XMS_ITS | Encounter Summary ---
Author Organization [employer] Address 75 [facility] [address]t [place] [address] Care Team Providers Care Acid Pump Operator Name Role Phone Dory Ray MD Primary Care Provide r Encounter Details Date Type Department Care Team (Late st Contact Info) Description 01/12/2023 Abstract [facility] MED[facility]INE 230 [place] [address] Dory Ray MD 230 [place] [address] Social History Tobacco Use Types Packs/Day Years [...] 2:45 PM EDT Office Visit [facility] MEDICINE [address] [place] [address] Dory Ray MD [address] [place] [address] 08/14/2024 11:00 AM EDT Office Visit [facility] [address] [place] [address] 08/15/2024 9:00 AM EDT Office Visit [address] [address] Dory Ray MD [address] [place] [address] documented as of this encounter Visit Diagnoses Not on filedocumented in this encounter Additional Health Concerns Assessment Noted Time PHQ-9 Depression Total Score: 24 023 9:07 AM EDT documented as of this encounter Care Teams Acid Pump Operator Relationship Specialty Start Date End Date Dory Ray MD [address] [place] [address] [phone] PCP - General Family Medicine 01/03/19 Jeane Lemons Hand EngraverRadio Artist 11/09/23 documented as of this encounter
== END 2024-07-12 08:52 | disposition home or self-care (01) ==
LOC: HO.HWS 08:20
PROVIDERS: PCP Internal Medicine; Visit Provider Obstetrics & Gynecology
DX: N83.299 Other ovarian cyst, unspecified side (principal); N93.9 Abnormal uterine and vaginal bleeding, unspecified
CPT/HCPCS: 99213

== ENCOUNTER 2024-08-31 10:38 | Outpatient (REF) | payer MEDICAID, SELFPAY ==
--- OUTSIDE RECORDS SUMMARY | 2024-08-31 11:23 | XMS_ITS | Encounter Summary ---
Author Organization [employer] Address 75 [facility] 7t [place] [address] Care Team Providers Care Monitor Technician Name Role Phone Dory Ray MD Primary Care Provide r Encounter Details Date Type Department Care Team (Late Contact Info) Description 04/07/2022 Orders Only [facility] 230 [place] [address] Rohini Middleton MD 230 [place] [address] Pain (Primary Dx) Social History Tobacco Use [...] In the last 10 days, have yo u been in contact with someone who was confirmed or suspected to have Coronavirus/COVID-19? No / Unsure 04/06/2022 12:51 PM EST documented as of this encounter Plan of Treatment Upcoming Encounters Date Type Department Care Team (Late Contact Info) Description 11/12/2024 9:00 AM EDT Office Visit [facility] [address] [place] [address] Nathalia Allan, OD 230 [place] [address] documented as of this encounter Visit Diagnoses Diagnosis Pain- Primary Generalized pain documented in this encounter Care Teams Monitor Technician Relationship Specialty Start Date End Date Dory Ray MD [address] [place] [address] PCP - General Family Medicine 01/03/19 Jeane Lemons National Sales ConsultantMerry Go Round Attendant 11/09/23 documented as of this encounter
[2024-08-31 13:00] LABS: TSH reflex Free T4 2.16 uIU/mL (0.32-4.0)
== END 2024-08-31 10:39 | disposition home or self-care (01) ==
LOC: HO.HHCL 10:38
PROVIDERS: Visit Provider Internal Medicine
DX: R00.2 Palpitations (principal); R09.89 Other specified symptoms and signs involving the circulatory and respiratory systems
CPT/HCPCS: 36415; 84443

== ENCOUNTER 2024-10-05 19:44 | Emergency (ER) | payer MEDICAID, SELFPAY ==
--- NOTE | ~2024-10-05 | CT_ITS ---
CLINICAL HISTORY: headache, high BP CT head without contrast Comparison: CT/SR - CT HEAD FOR STROKE - 04/13/24 17:26 EST Findings: Motion artifact somewhat limits evaluation, with diffuse peripheral hypoattenuation throughout, felt to be artifactual No intra-axial mass, midline shift, hydrocephalus, or acute hemorrhage. No significant atrophy-like change or white matter disease. There is no sinus or mastoid fluid. The orbits are within normal limits. No skull fracture. IMPRESSION: 1. No acute intracranial findings. This document has been electronically signed by: Luke Yu MD on 10/05/2024 20:55:19
--- NOTE | ~2024-10-05 | XR_ITS ---
CLINICAL HISTORY: CP 2 view chest x-ray Comparison: CR/ID/SR - XR CHEST 2V - 04/12/24 10:08 EST Findings: The lungs are clear. Normal size heart. No acute fracture. IMPRESSION: 1. No acute findings. This document has been electronically signed by: Luke Yu MD on 10/05/2024 21:17:09
--- NOTE | 2024-10-05 19:47 | ECG_ITS ---
Test Reason : PALPITATIONS Blood Pressure : */* mmHG Vent. Rate : 116 BPM Atrial Rate : 116 BPM P-R Int : 154 ms QRS Dur : 82 ms QT Int : 314 ms P-R-T Axes : 70 51 51 degrees QTcB Int : 436 ms Sinus tachycardia Nonspecific ST and T wave abnormality Abnormal ECG When compared with ECG of 13-Apr-2024 17:58, No significant change was found Referred By: Skye Rodas Electronically Signed By: QUITA CERVANTES MD
[2024-10-05 19:51] VITALS: BP 130/74; PULSE 115; RESP 17; TEMP 36.7; O2SAT 96; BMI 28.7
--- NOTE | 2024-10-05 19:51 | ED.CHESTPAIN ---
HPI - Chest Pain General Chief Complaint: Arrhythmia/Palpitations Stated Complaint: heart palpitation/ bp high & low/ dizzy nausea Time Seen by Provider: 10/05/24 20:28 Source: patient Mode of arrival: ambulatory Limitations: no limitations History of Present Illness ED Provider: HPI narrative: Patient with anxiety comes here as she noticed for last few days her blood pressure is elevated systolic 160 patient is on hydrochlorothiazide also complaining of the headache and body ache poor sleep on arrival patient's blood pressure was 130/74 lipid blood pressure was 113/80 Related Data Home Medications ?Medication ?Instructions ?Recorded ?Confirmed lactulose 10 gram/15 mL oral 10 g PO DAILY PRN Constipation 02/09/21 04/13/24 solution lorazepam 1 mg tablet 1 mg PO DAILY PRN Anxiety 01/27/22 04/13/24 hydrochlorothiazide 25 mg tablet 25 mg PO DAILY nx 10/19/23 04/13/24 Held on 04/14/24. Instructions: bp soft. hold for now; follow up with pcp hydroxyzine HCl 25 mg tablet 25 mg PO Q12H PRN Anxiety 10/19/23 04/13/24 mirtazapine 15 mg tablet 15 mg PO BEDTIME 10/19/23 04/13/24 pantoprazole 40 mg tablet,delayed 40 mg PO DAILY@0630 10/19/23 04/13/24 release trazodone 50 mg tablet 50 mg PO BEDTIME PRN insomnia 10/19/23 04/13/24 ibuprofen 800 mg tablet 800 mg PO Q8H PRN moderate pain 01/18/24 04/13/24 betamethasone, augmented 0.05 % 1 appl topical BID 04/13/24 04/13/24 topical ointment cyclobenzaprine 10 mg tablet 10 mg PO TID PRN muscle spasm 04/13/24 04/13/24 gabapentin 800 mg tablet 800 mg PO TID 04/13/24 04/13/24 loratadine 10 mg tablet 10 mg PO DAILY PRN allergies 04/13/24 04/13/24 nicotine 14 mg/24 hr daily 1 patch topical DAILY 04/13/24 04/13/24 transdermal patch ziprasidone HCl 20 mg capsule 20 mg PO BID 04/13/24 04/13/24 zolpidem 5 mg tablet 5 mg PO BEDTIME 04/13/24 04/13/24 Previous Rx's ?Medication ?Instructions ?Recorded albuterol sulfate 90 mcg/actuation 2 puff inhalation Q6H PRN 11/14/20 aerosol inhaler shortness of breath or wheezing #8.5 grams tramadol 50 mg tablet 50 mg PO Q8H PRN pain #14 tabs 03/24/21 lidocaine 5 % topical patch 1 patch topical DAILY #30 ea 04/12/24 medroxyprogesterone 10 mg tablet 10 mg PO DAILY 10 days #30 tabs 07/30/24 (Provera) Allergies Allergy/AdvReac Type Severity Reaction Status Date / Time No Known Allergies Allergy Verified 10/05/24 19:53 Review of Systems Review of Systems: Yes all other systems are reviewed and are negative PMFSH Past Medical History Medical History HTN (hypertension) Asthma Seasonal allergies Nicotine dependence, cigarettes, uncomplicated Fibromyalgia Chronic pain syndrome Anxiety and depression Migraines Constipation Complex ovarian cyst Abnormal uterine bleeding (AUB) Microscopic hematuria Interstitial cystitis Urinary frequency Stress incontinence Female pelvic pain Abdominal mass, left lower quadrant Well woman exam Breast lump Disc degeneration, lumbar Spondylosis of lumbar spine Arthritis Surgical History History of carpal tunnel surgery of left wrist History of cystoscopy History of salpingo-oophorectomy History of loop electrosurgical excision procedure (LEEP) History of bilateral tubal ligation Family History Family History Sister History of breast cancer, Onset Age: 52 Brother History of bone cancer History of blood disorder History of brain cancer Paternal Aunt History of cancer of uterus Mother Hx of cancer of lung Sister Hx of hysterectomy Family/Other Hx of hysterectomy Family/Other Hx of hysterectomy Daughter Hx of thyroid cancer Social History Social History Household Members: Significant Other Housing: Apartment Do you presently have visiting nurse or other home services: Yes (NEPHROLOGY NURSE daily) Alcohol intake: never Patient Tobacco Use Status: Current everyday Tobacco user Tobacco use type: Cigarette Cigarettes Per Day: 10 Years Smoked: (onset 10yo, 1/2-3/4ppd x 38yrs - 20pyh) Smoked in Last 30 Days: No Second Hand Smoke Exposure: No Use of substances other than those prescribed or required for medical reasons: No Substance Use Type: Marijuana Advance Directives: No Advance Directives Information Provided: No Do you have a plan to hurt others: No Plan Patient : No service: No Sexual orientation: Straight/Heterosexual Gender identity: Female Physical Exam Vital Signs: Vital Signs: Last Vital Signs Temp 97.8 F 10/05/24 22:05 Pulse 103 H 10/05/24 22:05 Resp 16 10/05/24 22:05 BP 113/80 10/05/24 22:05 Pulse Ox 96 10/05/24 22:05 O2 Del Method Room Air 10/05/24 22:05 BMI result Body Mass Index 28.7 Appearance: Alert. Oriented X3. No acute distress. Anxious Eyes: PERRLA, No Nystagmus ENT: Pharynx normal. Oral Mucosa moist Neck: Normal inspection. Neck supple. CVS: Normal heart rate and rhythm. Pulses normal. Respiratory: No respiratory distress. Equal air entry bilateral, no wheezing/rales/rhonchi Abdomen: Soft and nontender. Bowel sounds are present, no mass palpable, no CVA tenderness Skin: Skin warm and dry. Normal skin color. Normal skin turgor. Extremities: No lower extremity edema. No calf tenderness Neuro: Oriented X 3. No motor deficit. No sensory deficit.No cerebellar signs , cranial nerves II-XII intact Course Course Course Narrative: This is an RME: Additional HPI, ROS, PE not included below will be deferred to primary provider. RME assessment and note performed by: Skye Rodas PA-C This is a 89-utbs-sjc-female, with a hx of hypertension on HCTZ, fibomyalgia, chronic pain, anxiety, who presents to the ER with complaints of chest pain, palpitations, headaches, lip tingling. Reports she saw her PCP yesterday as she was concerned due to elevated blood pressure and they increased her BP meds from HCTZ 25mg to 50mg. Took tylenol at 1PM. Neuros intact. Plan: Labs, CT head, ekg, further Er eval needed Medications Administered Discontinued Medications Generic Name Dose Route Start Last Admin Trade Name Freq PRN Reason Stop Dose Admin Potassium Bicarbonate 50 meq 10/05/24 20:57 10/05/24 21:14 Potassium Bicarbonate/Cit Ac 25 Meq Tablet.Eff PO 10/05/24 20:58 50 meq ONCE ONE Administration Medical Decision Making Medical Decision Making [facility] Narrative: Patient has multiple complaints with anxiety blood pressure is normal in the ER no incidentally noticed potassium of 3.0 patient has says which she been drinking more water than electrolyte. Patient is given p.o. potassium and her symptoms improved has less body cramping advised to have extra potassium containing food Lab Data [facility] Lab Attestation statement: I reviewed the patient's lab results. 10/05/24 20:25 10/05/24 20:25 Labs: Lab Results 10/05/24 Range/Units 20:25 WBC 10.4 (4.8-10.8) X10*3/uL RBC 3.98 L (4.20-5.50) X10*6/uL Hgb 12.5 (12.0-16.0) g/dl Hct 35.8 L (37.0-47.0) % MCV 89.9 (80.0-98.0) fL MCH 31.4 (27.0-33.0) pg MCHC 34.9 (31.0-35.0) g/dl RDW 13.7 (11.0-16.0) % Plt Count 297 (160-400) X10*3/uL MPV 8.9 L (9.4-12.3) fL Immature Gran % (Auto) 0.5 H (0.0-0.4) % Neut % (Auto) 67.4 (45-73) % Lymph % (Auto) 25.1 (20-40) % [place] % (Auto) 5.6 (2-11) % Eos % (Auto) 1.1 (0-4) % Baso % (Auto) 0.3 (0-2) % Lymph # (Auto) 2.6 (1.2-4.9) X10*3/uL [place] # (Auto) 0.6 (0.1-1.2) X10*3/uL Eos # (Auto) 0.1 (0.0-0.4) X10*3/uL Baso # (Auto) 0.0 (0.0-0.2) X10*3/uL Abs Immat Gran (auto) 0.05 H (0.00-0.03) X10*3/uL Absolute Neuts (auto) 7.0 (2.0-8.3) x10*3/uL Absolute Nucleated RBC 0.000 (0.0-0.012) X10*3/uL Nucleated RBC % (auto) 0.0 (0.0-0.2) /100WBC Sodium 140 (135-145) mmol/L Potassium 3.0 L (3.3-5.1) mmol/L Chloride 103 (96-108) mmol/L Carbon Dioxide 28 (22-29) mmol/L Anion Gap 12 (12-20) BUN 11 (9-16) mg/dL Creatinine 0.68 (0.5-1.4) mg/dL Estim Creat Clear Calc 97.5 Estimated GFR > 60 Random Glucose 135 H (60-115) mg/dL Calcium 9.6 D (8.4-10.2) mg/dL Magnesium 2.0 (1.6-2.6) mg/dL Total Bilirubin 0.2 (0.0-1.0) mg/dL Direct Bilirubin < 0.2 (0.0-0.5) mg/dL AST 26 (5-31) U/L ALT 28 (0-31) U/L Alkaline Phosphatase 49 (39-117) U/L Troponin I High Sens 4.1 D (<3.5-17.0) ng/L B-Natriuretic Peptide < 10 (<100) pg/mL Total Protein 7.7 (6.5-8.0) g/dL Albumin 4.6 (3.5-5.0) g/dL TSH 1.96 (0.32-4.0) uIU/mL Influenza Type A (PCR) NEGATIVE (Negative) Influenza Type B (PCR) NEGATIVE (Negative) RSV RNA Qual (PCR) NEGATIVE (Negative) SARS-CoV-2 RNA (RT-PCR) NEGATIVE (Negative) Independent Interpretation I performed an independent interpretation of an: EKG Interpretation: Sinus tachycardia with heart rate of 116 beats per minute normal interval normal axis no acute ST-T changes no acute ischemia Discharge Plan Discharge Clinical Impression: Palpitations, Anxiety, Hypokalemia Patient Disposition: Home, Self-Care Instructions: Potassium Content of Foods List (ED), Hypokalemia (ED), Generalized Anxiety Disorder (ED) Additional Instructions: Continue take your medication Have extra bananas orange juice daily Follow with your PCP Prescriptions: No Action medroxyprogesterone [Provera] 10 mg tablet 10 mg PO DAILY 10 Days Qty: 30 3RF Rx Instructions: start Provera 1 tablet daily from day 15-24 cyclically every months, day 1 being 1st day of menses albuterol sulfate 90 mcg/actuation HFA aerosol inhaler 2 puff inhalation Q6H PRN (Reason: shortness of breath or wheezing) Qty: 8.5 0RF tramadol 50 mg tablet 50 mg PO Q8H PRN (Reason: pain) Qty: 14 0RF cyclobenzaprine 10 mg tablet 10 mg PO TID PRN (Reason: muscle spasm) ziprasidone HCl 20 mg capsule 20 mg PO BID betamethasone, augmented 0.05 % ointment 1 appl TOPICAL BID gabapentin 800 mg tablet 800 mg PO TID loratadine 10 mg tablet 10 mg PO DAILY PRN (Reason: allergies) nicotine 14 mg/24 hr patch 24 hour 1 patch topical DAILY zolpidem 5 mg tablet 5 mg PO BEDTIME lidocaine 5 % adhesive patch,medicated 1 patch topical DAILY Qty: 30 0RF Rx Instructions: leave on most painful area for up to 12 hrs lorazepam 1 mg tablet 1 mg PO DAILY PRN (Reason: Anxiety) lactulose 10 gram/15 mL solution 10 g PO DAILY PRN (Reason: Constipation) mirtazapine 15 mg tablet 15 mg PO BEDTIME hydrochlorothiazide 25 mg tablet 25 mg PO DAILY trazodone 50 mg tablet 50 mg PO BEDTIME PRN (Reason: insomnia) pantoprazole 40 mg tablet,delayed release (DR/EC) 40 mg PO DAILY@0630 hydroxyzine HCl 25 mg tablet 25 mg PO Q12H PRN (Reason: Anxiety) ibuprofen 800 mg tablet 800 mg PO Q8H PRN (Reason: moderate pain) Interventions: ED Discharge Assessment Last Done: 10/05/24 22:05 Discharge Date/Time: 10/05/24 22:09 Print Language: Occitan
--- OUTSIDE RECORDS SUMMARY | 2024-10-05 20:22 | XMS_ITS | Clinical Summary ---
Author Organization 175 [facility] Address [address] [place] [address] Phone Care Team Providers Care Geography Professor Name Role Phone Dory Ray MD Primary [...] Name Administration Dates Next Due Hepatitis B (Onzesvt-Q-Eziua , Recombivax HB-Adult) 19yo and older 01/18/2007,08/24/2006 [...] Luo OTHER SURGICAL HISTORY 09/25/2020 Left PROCEDURE: [place] NEUROPLASTY &/TRANSPOSITION ULNAR NERVE ELBOW; COMMENT: Submuscular Transposition, Dr. Luo OTHER SURGICAL HISTORY 04/14/2012 Left PROCEDURE: NE DCMPRN FASCT F/ARM&WRST FLXR/XTNSR W/O DBRDMT; COMMENT: 1st [place] Compartment/De Quervain's Release, Dr. Luo Medical History [...] (2023-2 5 season) 2023 Influenza Vaccine (#1) 2024 5, 12/10/2011 HIB Vaccines Aged Out No [...] Recently Relevant to Health Maintenance Care Teams Geography Professor Relationship Specialty Start Date End Date Dory Ray MD [address] [place] [phone] PCP - General Internal Medicine 12/30/20
--- NOTE | 2024-10-05 20:23 | PC.NURSE ---
denies chest pain
[2024-10-05 20:29] LABS: MANUAL DIFF FLAG NO
[2024-10-05 20:33] LABS: Hematocrit 35.8 % (37.0-47.0); Hemoglobin 12.5 g/dl (12.0-16.0); Imm Gran Abs Auto 0.05 X10*3/uL (0.00-0.03); Imm Gran Pct Auto 0.5 % (0.0-0.4); Lymphocytes Absolute Auto 2.6 X10*3/uL (1.2-4.9); Mean Corpuscular HGB Conc 34.9 g/dl (31.0-35.0); Mean Corpuscular Hemoglobin 31.4 pg (27.0-33.0); Mean Corpuscular Volume 89.9 fL (80.0-98.0); NRBC Abs Auto 0.000 X10*3/uL (0.0-0.012); NRBC Pct Auto 0.0 /100WBC (0.0-0.2); Platelet Count 297 X10*3/uL (160-400); Red Blood Count 3.98 X10*6/uL (4.20-5.50); White Blood Count 10.4 X10*3/uL (4.8-10.8)
[2024-10-05 20:47] LABS: Alanine Aminotransferase 28 U/L (0-31); Albumin Level 4.6 g/dL (3.5-5.0); Alkaline Phosphatase 49 U/L (39-117); Anion Gap 12 (12-20); Aspartate Amino Transferase 26 U/L (5-31); Blood Urea Nitrogen 11 mg/dL (9-16); Calcium 9.6 mg/dL (8.4-10.2); Carbon Dioxide 28 mmol/L (22-29); Chloride 103 mmol/L (96-108); Creatinine Clr Calc Pharmacy 97.5; Estimated Glomerular Filt Rate > 60; Magnesium 2.0 mg/dL (1.6-2.6); Potassium 3.0 mmol/L (3.3-5.1); Sodium 140 mmol/L (135-145); Total Protein 7.7 g/dL (6.5-8.0)
[2024-10-05 20:52] LABS: B Type Natriuretic Peptide < 10 pg/mL (<100)
[2024-10-05 20:54] LABS: Troponin-I High Sensitivity 4.1 ng/L (<3.5-17.0)
[2024-10-05 21:08] LABS: Resp Syncy Virus RNA Qual PCR NEGATIVE (Negative); SARS COV2 PCR INHOUSE NEGATIVE (Negative)
[2024-10-05] MEDS: Potassium Bicarbonate/Cit AC 25 MEQ TABLET.EFF 50 MEQ PO (21:14)
[2024-10-05 21:53] VITALS: BP 113/80; PULSE 103; RESP 16; TEMP 36.6; O2SAT 96
[2024-10-05 22:05] VITALS: BP 113/80; PULSE 103; RESP 16; TEMP 36.6; O2SAT 96
== END 2024-10-05 22:09 | disposition home or self-care (01) ==
PROVIDERS: Physician Assistant Medical; Emergency Provider Internal Medicine; PCP Internal Medicine
DX: I49.9 Cardiac arrhythmia, unspecified (principal); R42 Dizziness and giddiness; R11.0 Nausea; R00.0 Tachycardia, unspecified; R51.9 Headache, unspecified; F41.8 Other specified anxiety disorders; R06.02 Shortness of breath; E87.6 Hypokalemia; F17.210 Nicotine dependence, cigarettes, uncomplicated; I10 Essential (primary) hypertension; R00.2 Palpitations; Z79.899 Other long term (current) drug therapy; Z03.818 Encounter for observation for suspected exposure to other biological agents ruled out
CPT/HCPCS: 36415; 70450; 71046; 80048; 80076; 83735; 83880; 84443; 84484; 85025; 87637; 93005; 99284; 99285

== ENCOUNTER → 2024-10-05 19:47 | Outpatient (BNV) | payer MEDICAID, SELFPAY | PROVIDERS: Emergency Provider Internal Medicine; PCP Internal Medicine; Visit Provider Internal Medicine Cardiovascular Disease | DX: R00.0 Tachycardia, unspecified (principal) | CPT/HCPCS: 93010 ==

== ENCOUNTER → 2024-10-05 19:55 | Outpatient (BNV) | payer MEDICAID, SELFPAY | PROVIDERS: Emergency Provider Internal Medicine; PCP Internal Medicine; Visit Provider Radiology Diagnostic Radiology | DX: R51.9 Headache, unspecified (principal); I10 Essential (primary) hypertension; R07.9 Chest pain, unspecified | CPT/HCPCS: 70450; 71046 ==

== ENCOUNTER 2024-10-09 12:07 | Outpatient (REF) | payer MEDICAID, SELFPAY ==
--- OUTSIDE RECORDS SUMMARY | 2024-10-10 13:14 | XMS_ITS | Encounter Summary ---
Author Organization [employer] Address [address] [facility] [address] [place] [address] Care Team Providers Care Sow Manager Name Role Phone Dory Ray MD Primary Care Provide r Encounter Details Date Type Department Care Team (Late Contact Info) Description 04/07/[address] [facility] [address] [place] [address] Rohini Middleton MD [address] [place] [address] Pain (Primary Dx) Social History Tobacco Use [...] Description 11/12/2024 9:00 AM EDT Office Visit [facility] [address] [place] [address] Nathalia Allan, OD [address] [place] [address] documented as of this encounter Visit Diagnoses Diagnosis Pain- Primary Generalized pain documented in this encounter Care Teams Sow Manager Relationship Specialty Start Date End Date Dory Ray MD [address] [place] [address] PCP - General Family Medicine 01/03/19 Jeane Lemons Cyanide Case HardenerHousekeeper/Laundry Assistant 11/09/23 documented as of this encounter
--- OUTSIDE RECORDS SUMMARY | 2024-10-10 13:14 | XMS_ITS | Clinical Summary ---
Author Organization 175 [facility] Address [address] [place] [address] Phone Care Team Providers Care Software Writer Name Role Phone Dory Ray MD [...] Name Administration Dates Next Due Hepatitis B (Qgsaxea-Y-Alzks , Recombivax HB-Adult) 19yo and older 01/18/2007,08/24/2006 [...] Luo OTHER SURGICAL HISTORY 09/25/2020 Left PROCEDURE: [place] NEUROPLASTY &/TRANSPOSITION ULNAR NERVE ELBOW; COMMENT: Submuscular Transposition, Dr. Luo OTHER SURGICAL HISTORY 04/14/2012 Left PROCEDURE: [place] DCMPRN FASCT F/ARM&WRST FLXR/XTNSR W/O DBRDMT; COMMENT: 1st [place] Compartment/De Quervain's Release, Dr. Luo Medical History [...] Vaccines (1 of 2) 07/26/2023 COVID-19 Vaccine (1 - 2023-2 5 season) 2023 Influenza Vaccine (#1) 2024 [...] (06/09/2011) Pap smear No interpretation , abstracted us Historical Provider MD HEALTH MAINTENANCE Final Result from Last 3 Months or Most Recently Relevant to Health Maintenance Care Teams Software Writer Relationship Specialty Start Date End Date Dory Ray MD [address] [place] [phone] PCP - General Internal Medicine 12/30/20
[2024-10-10 13:35] LABS: Bacterial Vaginosis PCR NEGATIVE (Negative); Candida Group PCR NOT DETECTED (Not Detect); Candida glab krusei PCR NOT DETECTED (Not Detect); Trichomonas vaginalis PCR NOT DETECTED (Not Detect)
== END 2024-10-09 12:08 | disposition home or self-care (01) ==
LOC: HO.HHCLNP 12:07
PROVIDERS: Visit Provider Internal Medicine
DX: N89.8 Other specified noninflammatory disorders of vagina (principal)
CPT/HCPCS: 81515; 87086

== ENCOUNTER 2024-10-17 08:13 | Outpatient (REF) | payer MEDICAID, SELFPAY ==
--- NOTE | ~2024-10-17 | XR_ITS ---
EXAMINATION: XR HIP, LEFT CLINICAL INFORMATION: pain COMPARISON: July 18, 2019 TECHNIQUE: AP and oblique views of the left hip. FINDINGS: No acute cortical disruption or malalignment. Mild sclerosis along the articular surface of the acetabulum. Slight asymmetric joint space narrowing. No lytic or blastic lesions. Degenerative changes in the symphysis pubis. XR/XR hip LT min 2V IMPRESSION: Mild osteoarthrosis, left hip. Electronically signed by: Luis Enrique Sheriff MD 10/17/2024 09:17 AM EDT
--- OUTSIDE RECORDS SUMMARY | 2024-10-17 08:17 | XMS_ITS | Clinical Summary ---
Author Organization 175 [facility] Address [address] [place] [address] Phone Care Team Providers Care Funeral Pre Arrangement Counselor Name Role Phone Dory Ray MD [...] Name Administration Dates Next Due Hepatitis B (Sxhefof-U-Vduvj , Recombivax HB-Adult) 19yo and older 01/18/2007,08/24/2006 [...] Luo OTHER SURGICAL HISTORY 09/25/2020 Left PROCEDURE: [place] NEUROPLASTY &/TRANSPOSITION ULNAR NERVE ELBOW; COMMENT: Submuscular Transposition, Dr. Luo OTHER SURGICAL HISTORY 04/14/2012 Left PROCEDURE: [place] DCMPRN FASCT F/ARM&WRST FLXR/XTNSR W/O DBRDMT; COMMENT: 1st [place] Compartment/De Quervain's Release, Dr. Luo Medical History [...] 12/09/2021 12/10/2011 Colorectal Cancer Screening: Colonoscopy 03/07/2022 HIV Screening 03/07/2022 Hepatitis C Screening 03/07/2022 Social Influencers of Health Screening 03/07/2022 Zoster Vaccines (1 of 2) 07/26/2023 COVID-19 Vaccine (1 - 2023-2 5 season) 2023 Depression Screening 04/04/2024 Influenza Vaccine (#1) 2024 5, 12/10/2011 HIB [...] Recently Relevant to Health Maintenance Care Teams Funeral Pre Arrangement Counselor Relationship Specialty Start Date End Date Dory Ray MD [address] [place] [phone] PCP - General Internal Medicine 12/30/20
--- OUTSIDE RECORDS SUMMARY | 2024-10-17 08:17 | XMS_ITS | Encounter Summary ---
Author Organization [employer] Address [address] [facility] 7[address] [place] [address] Care Team Providers Care Sap Basis Name Role Phone Dory Ray MD Primary Care Provide r Encounter Details Date Type Department Care Team (Late Contact Info) Description 04/07/2022 Orders Only [facility] [address] [place] [address] Rohini Middleton MD [address] [place] [address] Pain (Primary Dx) Social History Tobacco Use [...] Description 11/12/2024 9:00 AM EDT Office Visit [facility] [address] [place] [address] Nathalia Allan, OD [address] [place] [address] documented as of this encounter Visit Diagnoses Diagnosis Pain- Primary Generalized pain documented in this encounter Care Teams Sap Basis Relationship Specialty Start Date End Date Dory Ray MD [address] [place] [address] PCP - General Family Medicine 01/03/19 Jeane Lemons Datapower ConsultantStripper Machine Operator 11/09/23 documented as of this encounter
[2024-10-17 11:41] LABS: Anion Gap 10 (12-20); Blood Urea Nitrogen 11 mg/dL (9-16); Calcium 9.3 mg/dL (8.4-10.2); Carbon Dioxide 28 mmol/L (22-29); Chloride 104 mmol/L (96-108); Estimated Glomerular Filt Rate > 60; Potassium 4.1 mmol/L (3.3-5.1); Sodium 138 mmol/L (135-145)
== END 2024-10-17 08:14 | disposition home or self-care (01) ==
LOC: HO.HHCL 08:13
PROVIDERS: PCP Internal Medicine; Referring Provider Internal Medicine; Visit Provider Internal Medicine
DX: M16.12 Unilateral primary osteoarthritis, left hip (principal); I10 Essential (primary) hypertension; M25.552 Pain in left hip
CPT/HCPCS: 36415; 73502; 80048

== ENCOUNTER → 2024-10-17 08:41 | Outpatient (BNV) | payer MEDICAID, SELFPAY | PROVIDERS: PCP Internal Medicine; Referring Provider Internal Medicine; Visit Provider Radiology Diagnostic Radiology | DX: M16.12 Unilateral primary osteoarthritis, left hip (principal) | CPT/HCPCS: 73502 ==

== ENCOUNTER → 2024-10-26 09:13 | Outpatient (REF) | payer MEDICAID, SELFPAY ==
--- NOTE | 2024-10-26 09:17 | CA_ITS ---
Transthoracic Echocardiogram Patient (Last, First, Middle): Marlene Hicks, Gender: Female Date of : 1975 Age: 49 Procedure Date: 10/26/2024 Procedure Type: Transthoracic Echocardiogram Location: OP Height: 162.56 cm Weight: 74.84 kg BSA: 1.80 m2 Heart Rate: bpm BP: 124 / 60 mmHg Market Developer: Referring MD: Dory Wen MD Symptoms: SOB W/EXERTION R06.09 Study Quality: Good ECG Rhythm: Sinus Conclusions: - Normal left ventricular size and systolic function. There is mildly increased left ventricular wall thickness. The visually estimated ejection fraction is between 55-60%. Diastolic function is normal for age. - Normal right ventricular cavity size and systolic function. Findings Left Ventricle Normal left ventricular size and systolic function. There is mildly increased left ventricular wall thickness. The visually estimated ejection fraction is between 55-60%. Diastolic function is normal for age. Right Ventricle Normal right ventricular cavity size and systolic function. Atria The left atrium is normal in size. The right atrium is normal in size. Aortic Valve Normal aortic valve structure and function. There is no aortic valve stenosis. There is no aortic valve regurgitation. Mitral Valve The mitral valve appears normal. There is no mitral valve regurgitation. There is no mitral valve stenosis. Pulmonic Valve The pulmonic valve is normal. There is trace pulmonic valve regurgitation. Tricuspid Valve Normal tricuspid valve structure. There is no tricuspid valve regurgitation. Normal right atrial pressure. There is no evidence of pulmonary hypertension. Great Vessels All visible segments of the aorta are normal in size. The visualized portions of the pulmonary artery and branches are normal. Venous The inferior vena cava is normal in size and collapses greater than 50% with inspiration. Pericardium/Pleural There is no evidence of pericardial effusion. Prior Study Comparison No prior study available for comparison. Measurements 2D Linear Measurements IVSd: 1.07 0.6-0.9/0.6-1.0 cm LVIDd: 4.69 3.9-5.3/4.2-5.9 cm LVIDd Index: 2.61 2.4-3.2/2.2-3.1 cm/m2 LVIDs: 3.34 2.0-3.6 cm LVPWd: 1.03 0.7-1.1 cm Ao Root: 2.80 2.1-3.5 cm LA Diam: 3.10 2.7-3.8/3.0-4.0 cm LAIDs Index: 1.72 1.5-2.3 cm/m2 LV Mass: 218.28 67-162/88-224 g LV Mass Index: 121.27 43-95/49-115 g/m2 LVOT Diam: 1.90 3.0+(-)1.3 cm 2D Systolic Function EF 4C: 54.50 >55% EF 2C: 56.30 >55% EF BiP: 55.90 >55% Mitral Valve MV Pk E: 0.60 MV PK A: 0.71 MV Decel Time: 198.00 E/A: 0.80 E'Lateral: 10.70 E'Medial: 7.07 E/E' Med: 8.50 E/E' Lat: 5.60 PHT: 58.00 MVA PHT: 3.79 Decel [place]: 3.03 Aortic Valve AoV Pk Feng: 1.25 AoV Mn Feng: 0.86 AoV VTI: 0.24 AoV Pk Grad: 6.00 Aov Mn Grad: 4.00 JORGE Cont.VTI: 1.86 LVOT LVOT Pk Feng: 0.85 LVOT Mn Feng: 0.53 LVOT VTI: 0.16 LVOT Pk Grad: 3.00 LVOT Mn Grad: 1.00 LVOT Diam: 1.90 LVOT Area: 2.84 Diastolic Function MV Pk E: 0.60 MV Pk A: 0.71 E/A: 0.80 E'Medial: 7.07 E/E' Med: 8.50 E' Laterial: 10.70 E/E' Lat: 5.60 Right Ventricle TAPSE (mm): 26.00 TVS' Feng: 11.00 Tricuspid Valve TR Pk Feng: 1.92 TR Pk Grad: 15.00 RA Press: 3.00 RVSP: 18.00 Great Vessels Aorta Ao Root-2D: 2.80 2.0-3.7 cm Pulmonary Valve PV Pk Feng: 1.02 Peak PV Grad: 4.00 Updated in Other Vendor System with Status of Final Sid Walter MD electronically signed on 10/28/2024 2:28:01 PM with status of Final
--- OUTSIDE RECORDS SUMMARY | 2024-10-26 09:29 | XMS_ITS | Clinical Summary ---
Author Organization [address] [facility] Address [address] [place] [address] Phone Care Team Providers Care Motor Vehicles Supervisor Name Role Phone Dory Ray MD [...] Name Administration Dates Next Due Hepatitis B (Gmpjbys-F-Mooel , Recombivax HB-Adult) 19yo and older 01/18/2007,08/24/2006 [...] Luo OTHER SURGICAL HISTORY 09/25/2020 Left PROCEDURE: [place] NEUROPLASTY &/TRANSPOSITION ULNAR NERVE ELBOW; COMMENT: Submuscular Transposition, Dr. Luo OTHER SURGICAL HISTORY 04/14/2012 Left PROCEDURE: [place] DCMPRN FASCT F/ARM&WRST FLXR/XTNSR W/O DBRDMT; COMMENT: 1st [place] Compartment/De Quervain's Release, Dr. Luo Medical History [...] Recently Relevant to Health Maintenance Care Teams Motor Vehicles Supervisor Relationship Specialty Start Date End Date Dory Ray MD [address] [place] [phone] PCP - General Internal Medicine 12/30/20
--- OUTSIDE RECORDS SUMMARY | 2024-10-26 09:29 | XMS_ITS | Encounter Summary ---
Author Organization [employer] Address [address] [facility] 7t [place] [address] Care Team Providers Care Financial Recording Clerk Name Role Phone Dory Ray MD Primary Care Provide r Encounter Details Date Type Department Care Team (Late Contact Info) Description 04/07/2022 Orders Only [facility] MED[facility] [address] [place] [address] Rohini Middleton MD [address] [place] [address] Pain (Primary Dx) Social History Tobacco Use [...] Description 11/12/2024 9:00 AM EDT Office Visit [facility] OPTOM[facility] [address] [place] [address] Nathalia Allan, OD [address] [place] [address] documented as of this encounter Visit Diagnoses Diagnosis Pain- Primary Generalized pain documented in this encounter Care Teams Financial Recording Clerk Relationship Specialty Start Date End Date Dory Ray MD [address] [place] [address] PCP - General Family Medicine 01/03/19 Jeane Lemons Debone Processing SupervisorSupervisor International Reservations 11/09/23 documented as of this encounter
--- OUTSIDE RECORDS SUMMARY | 2024-10-26 09:29 | XMS_ITS | Clinical Summary ---
Author Organization [facility] Address [address] [facility] [address] [place] [phone] Phone Care Team Providers Care Mineralogy Professor Name Role Phone [place] [facility] Primary Care Provider Unavailable Allergies No known active allergies Medications No known medications Social History Tobacco Use Types Packs/Day Years Used Date Smoking Tobacco: Never Assessed Education Answer Date Recorded Are you interested in more education? Not on shirley e 07/31/2022 Are you concerned about learning? Not on file 07/31/2022 No 07/31/2022 No 07/31/2022 Digital Access Answer Date Recorded No 08/31/2022 No 08/31/2022 Reliable internet access at home? Not on file 08/31/2022 Device with a working camera? Not on file Comments Unknown Sex and Gender Information Value Date Recorded Sex Assigned at Not on file Legal Sex Female 9:20 AM EDT Gender Identity Not on file Sexual Orientation Not on file Last Filed Vital Signs Vital Sign Reading Time Taken Comments Blood Pressure 114/77 12/24/2021 9:28 AM EDT Pulse 72 12/24/2021 9:28 AM EDT Temperature 36 C (96.8 F) 12/24/2021 9:28 AM EDT Respiratory Rate 20 12/24/2021 9:28 AM EDT Oxygen Saturation 99% 12/24/2021 9:28 AM EDT Inhaled Oxygen Concentration - - Weight 61.7 kg (136 lb) 12/24/2021 9:28 AM EDT Height 162.6 cm (5' 4 ) 12/24/2021 9:28 AM EDT Body Mass Index 23.34 12/24/2021 9:28 AM EDT Plan of Treatment Health Maintenance Due Date Last Done Comments Adult Td,Tdap Booster 1973 LIPID PANEL 1973 DEPRESSION SCREENING 1985 SMOKING Hx and SMOKELESS TOB ACCO SCREENING 1986 HEPATITIS C SCREENING 07/26/1991 HIV ONE-TIME SCREENING (18-6 5 YEARS) 07/26/1991 PAP SMEAR 1994 MAMMOGRAM 2013 COLOGUARD 2018 COLONOSCOPY 2018 COLORECTAL CANCER SCREENING 2018 FIT TEST 2018 FOBT 2018 SIGMOIDOSCOPY 2018 VIRTUAL COLONOSCOPY 2018 PNEUMOCOCCAL VACCINES (50+ y ears) (1 of 1 - PCV) 07/26/2023 ZOSTER VACCINES (1 of 2) 07/26/2023 COVID-19 VACCINE (1 - 2023-2 5 season) 2023 HEPATITIS A VACCINES Aged Out No long er eligible based on patient's age to complete this topic HIB VACCINES Aged Out No longer eligi ble based on patient's age to complete this topic MENINGOCOCCAL VACCINES (ACWY) Aged Out No longer eligible based on patient's age to complete this topic MENINGOCOCCAL VACCINES (B) Aged Out N o longer eligible based on patient's age to complete this topic Medical Devices Not on file [place] [place] [address] C3 ACO [facility] C3 ACO [facility] [place] [address] [place] [address] [place] [address] [place] [address] C3 A[facility] C3 [facility] C3 ACO [facility] C3 [facility]CO [facility] C3 ACO Care Teams Mineralogy Professor Relationship Specialty Start Date End Date CenterJesse MD PCP - General 12/24/21 Additional Source Comments The information contained in this document represents components of the legal health record. It is not the complete legal health record.[facility]
== END ==
LOC: HO.CARD 09:13
PROVIDERS: PCP Internal Medicine; Visit Provider Internal Medicine
DX: R06.09 Other forms of dyspnea (principal)
CPT/HCPCS: 93306

== ENCOUNTER → 2024-10-26 09:17 | Outpatient (BNV) | payer MEDICAID, SELFPAY | PROVIDERS: PCP Internal Medicine; Visit Provider Internal Medicine Cardiovascular Disease | DX: R06.09 Other forms of dyspnea (principal) | CPT/HCPCS: 93306 ==

== ENCOUNTER 2024-10-29 10:48 | Emergency (ER) | payer MEDICAID, SELFPAY ==
--- NOTE | 2024-10-29 11:37 | ED.GENADULT ---
HPI - General Adult General Chief complaint: Skin/Abscess/Foreign Body Stated complaint: lump in l side neck Related Data Home Medications ?Medication ?Instructions ?Recorded ?Confirmed lactulose 10 gram/15 mL oral 10 g PO DAILY PRN Constipation 02/09/21 04/13/24 solution lorazepam 1 mg tablet 1 mg PO DAILY PRN Anxiety 01/27/22 04/13/24 hydrochlorothiazide 25 mg tablet 25 mg PO DAILY nx 10/19/23 04/13/24 Held on 04/14/24. Instructions: bp soft. hold for now; follow up with pcp hydroxyzine HCl 25 mg tablet 25 mg PO Q12H PRN Anxiety 10/19/23 04/13/24 mirtazapine 15 mg tablet 15 mg PO BEDTIME 10/19/23 04/13/24 pantoprazole 40 mg tablet,delayed 40 mg PO DAILY@0630 10/19/23 04/13/24 release trazodone 50 mg tablet 50 mg PO BEDTIME PRN insomnia 10/19/23 04/13/24 ibuprofen 800 mg tablet 800 mg PO Q8H PRN moderate pain 01/18/24 04/13/24 betamethasone, augmented 0.05 % 1 appl topical BID 04/13/24 04/13/24 topical ointment cyclobenzaprine 10 mg tablet 10 mg PO TID PRN muscle spasm 04/13/24 04/13/24 gabapentin 800 mg tablet 800 mg PO TID 04/13/24 04/13/24 loratadine 10 mg tablet 10 mg PO DAILY PRN allergies 04/13/24 04/13/24 nicotine 14 mg/24 hr daily 1 patch topical DAILY 04/13/24 04/13/24 transdermal patch ziprasidone HCl 20 mg capsule 20 mg PO BID 04/13/24 04/13/24 zolpidem 5 mg tablet 5 mg PO BEDTIME 04/13/24 04/13/24 Previous Rx's ?Medication ?Instructions ?Recorded albuterol sulfate 90 mcg/actuation 2 puff inhalation Q6H PRN 11/14/20 aerosol inhaler shortness of breath or wheezing #8.5 grams tramadol 50 mg tablet 50 mg PO Q8H PRN pain #14 tabs 03/24/21 lidocaine 5 % topical patch 1 patch topical DAILY #30 ea 04/12/24 medroxyprogesterone 10 mg tablet 10 mg PO DAILY 10 days #30 tabs 07/30/24 (Provera) Allergies Allergy/AdvReac Type Severity Reaction Status Date / Time No Known Allergies Allergy Verified 10/29/24 11:41 [facility] Past Medical History Medical History HTN (hypertension) Asthma Seasonal allergies Nicotine dependence, cigarettes, uncomplicated Fibromyalgia Chronic pain syndrome Anxiety and depression Migraines Constipation Complex ovarian cyst Abnormal uterine bleeding (AUB) Microscopic hematuria Interstitial cystitis Urinary frequency Stress incontinence Female pelvic pain Abdominal mass, left lower quadrant Well woman exam Breast lump Disc degeneration, lumbar Spondylosis of lumbar spine Arthritis Surgical History History of carpal tunnel surgery of left wrist History of cystoscopy History of salpingo-oophorectomy History of loop electrosurgical excision procedure (LEEP) History of bilateral tubal ligation Family History Family History Sister History of breast cancer, Onset Age: 52 Brother History of bone cancer History of blood disorder History of brain cancer Paternal Aunt History of cancer of uterus Mother Hx of cancer of lung Sister Hx of hysterectomy Family/Other Hx of hysterectomy Family/Other Hx of hysterectomy Daughter Hx of thyroid cancer Social History Social History Household Members: Significant Other Housing: Apartment Do you presently have visiting nurse or other home services: Yes (BOILER OPERATOR daily) Alcohol intake: never Patient Tobacco Use Status: Current everyday Tobacco user Tobacco use type: Cigarette Cigarettes Per Day: 10 Years Smoked: (onset 10yo, 1/2-3/4ppd x 38yrs - 20pyh) Second Hand Smoke Exposure: No Substance Use Type: Marijuana service: No Sexual orientation: Straight/Heterosexual Gender identity: Female Physical Exam ED Vital Signs: BMI result Body Mass Index 27.7 Course Course Course Narrative: This is a rapid medical exam performed by Cheryl Albert NP: Additional HPI, ROS, PE not included below will be deferred to primary provider. Patient is a 49-year-old female with history of ovarian cysts, AUB presenting to the ED with complaint of right groin pain and mass since Tuesday. States was able to express some white discharge. This morning noted left sided lymphadenopathy to her neck. Denies sore throat. Reports chills. No difficulty swallowing, managing secretions without difficulty, no dyspnea. Plan: labs Medical Decision Making Lab Data 10/29/24 11:49 10/29/24 11:49 Labs: Lab Results 10/29/24 Range/Units 11:49 WBC 8.5 (4.8-10.8) X10*3/uL RBC 3.86 L (4.20-5.50) X10*6/uL Hgb 12.3 (12.0-16.0) g/dl Hct 35.6 L (37.0-47.0) % MCV 92.2 (80.0-98.0) fL MCH 31.9 (27.0-33.0) pg MCHC 34.6 (31.0-35.0) g/dl RDW 13.2 (11.0-16.0) % Plt Count 314 (160-400) X10*3/uL MPV 9.1 L (9.4-12.3) fL Immature Gran % (Auto) 0.6 H (0.0-0.4) % Neut % (Auto) 59.8 (45-73) % Lymph % (Auto) 33.5 (20-40) % [place] % (Auto) 5.0 (2-11) % Eos % (Auto) 0.9 (0-4) % Baso % (Auto) 0.2 (0-2) % Lymph # (Auto) 2.8 (1.2-4.9) X10*3/uL [place] # (Auto) 0.4 (0.1-1.2) X10*3/uL Eos # (Auto) 0.1 (0.0-0.4) X10*3/uL Baso # (Auto) 0.0 (0.0-0.2) X10*3/uL Abs Immat Gran (auto) 0.05 H (0.00-0.03) X10*3/uL Absolute Neuts (auto) 5.1 (2.0-8.3) x10*3/uL Absolute Nucleated RBC 0.000 (0.0-0.012) X10*3/uL Nucleated RBC % (auto) 0.0 (0.0-0.2) /100WBC Sodium 140 (135-145) mmol/L Potassium 3.6 (3.3-5.1) mmol/L Chloride 104 (96-108) mmol/L Carbon Dioxide 27 (22-29) mmol/L Anion Gap 13 (12-20) BUN 9 (9-16) mg/dL Creatinine 0.81 (0.5-1.4) mg/dL Estim Creat Clear Calc 80.5 Estimated GFR > 60 Random Glucose 92 (60-115) mg/dL Calcium 9.5 (8.4-10.2) mg/dL Total Bilirubin 0.3 (0.0-1.0) mg/dL AST 26 (5-31) U/L ALT 18 (0-31) U/L Alkaline Phosphatase 47 (39-117) U/L Total Protein 7.7 (6.5-8.0) g/dL Albumin 4.7 (3.5-5.0) g/dL Discharge Plan Discharge Clinical Impression: Groin pain Qualifiers: Laterality: right Qualified Code(s): R10.31 - Right lower quadrant pain Patient Disposition: Left W/O Completing Treatment Prescriptions: No Action medroxyprogesterone [Provera] 10 mg tablet 10 mg PO DAILY 10 Days Qty: 30 3RF Rx Instructions: start Provera 1 tablet daily from day 15-24 cyclically every months, day 1 being 1st day of menses albuterol sulfate 90 mcg/actuation HFA aerosol inhaler 2 puff inhalation Q6H PRN (Reason: shortness of breath or wheezing) Qty: 8.5 0RF tramadol 50 mg tablet 50 mg PO Q8H PRN (Reason: pain) Qty: 14 0RF cyclobenzaprine 10 mg tablet 10 mg PO TID PRN (Reason: muscle spasm) ziprasidone HCl 20 mg capsule 20 mg PO BID betamethasone, augmented 0.05 % ointment 1 appl TOPICAL BID gabapentin 800 mg tablet 800 mg PO TID loratadine 10 mg tablet 10 mg PO DAILY PRN (Reason: allergies) nicotine 14 mg/24 hr patch 24 hour 1 patch topical DAILY zolpidem 5 mg tablet 5 mg PO BEDTIME lidocaine 5 % adhesive patch,medicated 1 patch topical DAILY Qty: 30 0RF Rx Instructions: leave on most painful area for up to 12 hrs lorazepam 1 mg tablet 1 mg PO DAILY PRN (Reason: Anxiety) lactulose 10 gram/15 mL solution 10 g PO DAILY PRN (Reason: Constipation) mirtazapine 15 mg tablet 15 mg PO BEDTIME hydrochlorothiazide 25 mg tablet 25 mg PO DAILY trazodone 50 mg tablet 50 mg PO BEDTIME PRN (Reason: insomnia) pantoprazole 40 mg tablet,delayed release (DR/EC) 40 mg PO DAILY@0630 hydroxyzine HCl 25 mg tablet 25 mg PO Q12H PRN (Reason: Anxiety) ibuprofen 800 mg tablet 800 mg PO Q8H PRN (Reason: moderate pain) Discharge Date/Time: 10/29/24 18:05
[2024-10-29 11:38] VITALS: BP 120/70; PULSE 79; RESP 18; TEMP 36.3; O2SAT 98; BMI 27.7
[2024-10-29 12:03] LABS: MANUAL DIFF FLAG NO
[2024-10-29 12:05] LABS: Hematocrit 35.6 % (37.0-47.0); Hemoglobin 12.3 g/dl (12.0-16.0); Imm Gran Abs Auto 0.05 X10*3/uL (0.00-0.03); Imm Gran Pct Auto 0.6 % (0.0-0.4); Lymphocytes Absolute Auto 2.8 X10*3/uL (1.2-4.9); Mean Corpuscular HGB Conc 34.6 g/dl (31.0-35.0); Mean Corpuscular Hemoglobin 31.9 pg (27.0-33.0); Mean Corpuscular Volume 92.2 fL (80.0-98.0); NRBC Abs Auto 0.000 X10*3/uL (0.0-0.012); NRBC Pct Auto 0.0 /100WBC (0.0-0.2); Platelet Count 314 X10*3/uL (160-400); Red Blood Count 3.86 X10*6/uL (4.20-5.50); White Blood Count 8.5 X10*3/uL (4.8-10.8)
[2024-10-29 12:26] LABS: Alanine Aminotransferase 18 U/L (0-31); Albumin Level 4.7 g/dL (3.5-5.0); Alkaline Phosphatase 47 U/L (39-117); Anion Gap 13 (12-20); Aspartate Amino Transferase 26 U/L (5-31); Blood Urea Nitrogen 9 mg/dL (9-16); Calcium 9.5 mg/dL (8.4-10.2); Carbon Dioxide 27 mmol/L (22-29); Chloride 104 mmol/L (96-108); Creatinine Clr Calc Pharmacy 80.5; Estimated Glomerular Filt Rate > 60; Potassium 3.6 mmol/L (3.3-5.1); Sodium 140 mmol/L (135-145); Total Protein 7.7 g/dL (6.5-8.0)
== END 2024-10-29 18:05 | disposition left against medical advice (07) ==
PROVIDERS: Registered Nurse Emergency; Emergency Provider Emergency Medicine; PCP Internal Medicine
DX: R10.31 Right lower quadrant pain (principal); R22.1 Localized swelling, mass and lump, neck
CPT/HCPCS: 36415; 80053; 85025; 99281; 99283

== ENCOUNTER 2024-11-08 08:40 | Outpatient (REF) | payer MEDICAID, SELFPAY ==
--- NOTE | ~2024-11-08 | CT_ITS ---
EXAMINATION: CT SOFT TISSUE NECK WITH CONTRAST CLINICAL INFORMATION: 6 cm neck mass versus lymph node on anterolateral neck. COMPARISON: None available. TECHNIQUE: Following the intravenous administration of 60 mL of Omnipaque 350 intravenous contrast, helical imaging was performed in the axial plane with generation of coronal and sagittal reformatted images. This CT examination was performed using dose optimization techniques as appropriate, variously including the following: *Automated exposure control *Adjustment of mA and/or kV according to patient size (this includes techniques or standardized protocols for targeted exams where dose is matched to indication/reason for exam; i.e. extremities or head) *Use of iterative reconstruction technique FINDINGS: Lymph Nodes: -Normal. No abnormal lymphadenopathy. Carotid Sheath Structures: -Normal. Internal jugular veins are patent. Salivary Glands: -Mild fatty change of the parotid glands. No lesions. -Sublingual glands and submandibular glands are normal. Tongue Base/Floor of Mouth: -Normal Mucosal Space: -Normal. No lesions. -Epiglottis and aryepiglottic folds are normal. Visceral Space: -Thyroid gland: Normal. -Larynx and true vocal cords are normal. -Cervical esophagus is normal. -Subglottic trachea is normal. Retropharangeal Space: -Normal. Parapharyngeal Fat Planes: -Normal and undisturbed. Gold Reclaimer Spaces: -Normal. Anterior Cervical Space: -Normal. No mass is appreciated. Imaged Intracranial Contents: -No mass effect, edema, or abnormal enhancement. Cortical and dural venous sinuses are patent. The skull base is normal. Globes and Orbits: -Normal. Paranasal Sinuses/Mastoids/Tympanic Spaces: -Normally aerated bilaterally. Lung Apices and Superior Mediastinal Structures: -Imaged lung apices are clear and superior mediastinal structures are normal. Bony Structures: -No suspicious bone lesions. No fractures. -Normal TM joints. -The maxilla is edentulous. CT/CT soft tissue neck w IV con IMPRESSION: 1. No mass or abnormal lymphadenopathy within the neck. Electronically signed by: Michael Dhillon MD 11/08/2024 09:14 AM EDT
--- OUTSIDE RECORDS SUMMARY | 2024-11-08 08:54 | XMS_ITS | Clinical Summary ---
Author Organization [facility] Address [address] [place] [address] Phone Care Team Providers Care Nursery Teacher Name Role Phone Dory Ray MD [...] Name Administration Dates Next Due Hepatitis B (Eohydza-J-Wtifn , Recombivax HB-Adult) 19yo and older 01/18/2007,08/24/2006 [...] Luo OTHER SURGICAL HISTORY 09/25/2020 Left PROCEDURE: OR NEUROPLASTY &/TRANSPOSITION ULNAR NERVE ELBOW; COMMENT: Submuscular Transposition, Dr. Luo OTHER SURGICAL HISTORY 04/14/2012 Left PROCEDURE: OR DCMPRN FASCT F/ARM&WRST FLXR/XTNSR W/O DBRDMT; COMMENT: 1st [place] Compartment/De Quervain's Release, Dr. Luo Medical History [...] Recently Relevant to Health Maintenance Care Teams Nursery Teacher Relationship Specialty Start Date End Date Dory Ray MD [address] [place] [phone] PCP - General Internal Medicine 12/30/20
--- OUTSIDE RECORDS SUMMARY | 2024-11-08 08:54 | XMS_ITS | Encounter Summary ---
Author Organization [facility] [employer] Address [address] [facility] 7t [place] [address] Care Team Providers Care Rug Dyer Name Role Phone Dory Ray MD Primary Care Provide r Le Us Unavailable Encounter Details Date Type Department Care Team ([facility] Contact Info) Description 04/07/[address] [facility] [address] [place] [address] Rohini Middleton MD [address] [place] [address] Pain (Primary Dx) Social History Tobacco Use [...] Upcoming Encounters Date Type Department Care Team ([facility] Contact Info) Description 11/12/2024 9:00 AM EDT Office Visit [facility] [address] [place] [address] Nathalia Allan OD [address] [place], [place] [phone] 12/13/2024 1:15 PM EDT Office Visit [facility] [address] [place], [place] [phone] Dory Ray MD [address] [place], [place] [phone] documented as of this encounter Visit Diagnoses Diagnosis Pain- Primary Generalized pain documented in this encounter Care Teams Rug Dyer Relationship Specialty Start Date End Date Dory Ray MD [address] [place], [place] [phone] PCP - General Family Medicine 01/03/19 Le Us 10/30/24 11/05/24 Jeane Lemons Diamond Finishing SupervisorPatient Registration Clerk 11/09/23 documented as of this encounter
--- OUTSIDE RECORDS SUMMARY | 2024-11-08 08:54 | XMS_ITS | Clinical Summary ---
Author Organization [facility] Address [address] [facility] [address] [place] [address] Phone Care Team Providers Care Outreach Analyst Name Role Phone [place] [facility] Primary Care Provider Unavailable Allergies No [...] topic Medical Devices Not on file [place] [address] [address] C3 ACO [facility] C3 ACO [facility] C[address] [place] [address] [place] [address] [place] [address] [place] [address] C3 ACO [facility]3 [facility]CO [facility] C3 [facility]CO [facility] C3 [facility]CO [facility] C3 ACO Care Teams Outreach Analyst Relationship Specialty Start Date End Date CenterJesse MD PCP - General 12/24/21 Additional Source Comments The information contained in this document represents components of the legal health record. It is not the complete legal health record.[facility]
[2024-11-08] MEDS: iohexoL 350 MG/ML 100 ML INFUS..BTL IV (09:02)
== END 2024-11-08 08:41 | disposition home or self-care (01) ==
LOC: HO.CT 08:40
PROVIDERS: PCP Internal Medicine
DX: R22.1 Localized swelling, mass and lump, neck (principal)
CPT/HCPCS: 70491; Q9967

== ENCOUNTER → 2024-11-08 08:42 | Outpatient (BNV) | payer MEDICAID, SELFPAY | PROVIDERS: PCP Internal Medicine; Visit Provider Radiology Diagnostic Radiology | DX: R22.1 Localized swelling, mass and lump, neck (principal) | CPT/HCPCS: 70491 ==

== ENCOUNTER 2024-11-14 07:52 | Outpatient (REF) | payer MEDICAID, SELFPAY ==
--- NOTE | ~2024-11-14 | FL_ITS ---
EXAMINATION: XR BARIUM SWALLOW CLINICAL INFORMATION: Difficulty swallowing solids. COMPARISON: None available. TECHNIQUE: Routine barium swallow was performed following oral administration of thick barium and barium coated saltine crackers in upright view and thin barium in prone lying position. FINDINGS: Following oral administration of thin barium in different positions there is normal propagation bolus from the oral cavity through the pharynx, esophagus into stomach without obstruction, narrowing or stricture. No laryngeal penetration or aspiration seen. On oral administration of saltine crackers coated with barium paste there is normal oral mastication and propagation of bolus from the oral cavity through the pharynx, esophagus into stomach. There is slightly diminished peristalsis in the distal esophagus with evidence of tertiary peristalsis. On oral administration of thin barium in prone lying position there is normal esophageal distention and propagation of bolus from the oral cavity through the esophagus into stomach. There is no extrinsic compression. No evidence of gastroesophageal reflux except for a small sliding hiatal hernia in supine position. FLUOROSCOPY TIME: 2.08 minutes DOSE AREA PRODUCT: 1521 uGy-m2 (microgray-meter squared) FL/FL barium swallow IMPRESSION: Small sliding hiatal hernia without reflux. 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 Electronically signed by: Mendez Calle MD 11/14/2024 09:36 AM EDT
--- OUTSIDE RECORDS SUMMARY | 2024-11-14 07:55 | XMS_ITS | Encounter Summary ---
Author Organization [facility] [employer] Address [address] [facility] 7t [place] [address] Care Team Providers Care Drill Instructor Name Role Phone Dory Ray MD Primary Care Provide r Le sU Unavailable Encounter Details Date Type Department Care Team ([facility] Contact Info) Description 04/07/2022 Orders Only [facility] [address] [place] [phone] Rohini Middleton MD [address] [place] [phone] Pain (Primary Dx) Social History Tobacco Use [...] Upcoming Encounters Date Type Department Care Team ([facility] Contact Info) Description 01/09/2025 10:45 AM EDT Office Visit [facility] [address] [place] [phone] Dory Ray MD [address] [place], [place] [phone] 03/22/2025 10:30 AM EST Office Visit [facility] OPTOMET[facility] [address] [place], [place] [phone] Nathalia Allan, OD [address] [place], [place] [phone] documented as of this encounter Visit Diagnoses Diagnosis Pain- Primary Generalized pain documented in this encounter Care Teams Drill Instructor Relationship Specialty Start Date End Date Dory Ray MD [address] [place], [place] [phone] PCP - General Family Medicine 01/03/19 Le Us 10/30/24 11/05/24 Jeane Lemons Collar FuserBrass Wind Instruments Tube Bender 11/09/23 documented as of this encounter
--- OUTSIDE RECORDS SUMMARY | 2024-11-14 07:55 | XMS_ITS | Clinical Summary ---
Author Organization [address] [facility] Address [address] [place] [address] Phone Care Team Providers Care Shell Grader Name Role Phone Dory Ray MD Primary [...] Name Administration Dates Next Due Hepatitis B (Nasaddh-M-Rheep , Recombivax HB-Adult) 19yo and older 01/18/2007,08/24/2006 [...] FASCT F/ARM&WRST FLXR/XTNSR W/O DBRDMT; COMMENT: 1st [place] Compartment/De Quervain's Release, Dr. Luo Medical History [...] Recently Relevant to Health Maintenance Care Teams Shell Grader Relationship Specialty Start Date End Date Dory Ray MD [address] [place] [phone] PCP - General Internal Medicine 12/30/20
--- OUTSIDE RECORDS SUMMARY | 2024-11-14 07:55 | XMS_ITS | Clinical Summary ---
Author Organization [facility] Address [address] [facility] [address] [place] [phone] Phone Care Team Providers Care Taxicab Driver Name Role Phone [facility] Primary Care Provider Unavailable Allergies No known [...] topic Medical Devices Not on file [place] [place] [address] C3 ACO [facility] C3 ACO [facility] [place] [address] [place] [address] [place] [address] [place] [address] C3 [facility] C3 [facility] C3 ACO [facility] C3 ACO [facility] C3 ACO Care Teams Taxicab Driver Relationship Specialty Start Date End Date CenterJesse MD PCP - General 12/24/21 Additional Source Comments The information contained in this document represents components of the legal health record. It is not the complete legal health record.[facility]
== END 2024-11-14 07:53 | disposition home or self-care (01) ==
LOC: HO.XRAY 07:52
PROVIDERS: PCP Internal Medicine; Visit Provider Internal Medicine
DX: R09.89 Other specified symptoms and signs involving the circulatory and respiratory systems (principal)
CPT/HCPCS: 74220

== ENCOUNTER → 2024-11-14 07:53 | Outpatient (BNV) | payer MEDICAID, SELFPAY | PROVIDERS: PCP Internal Medicine; Visit Provider Radiology Diagnostic Radiology | DX: R13.10 Dysphagia, unspecified (principal); K44.9 Diaphragmatic hernia without obstruction or gangrene | CPT/HCPCS: 74221 ==

== ENCOUNTER 2024-11-19 11:03 | Outpatient (AMB) | payer MEDICAID, SELFPAY ==
--- NOTE | 2024-11-19 11:04 | A.OFFVIS_ITS ---
Intake Visit Reasons: medication follow up Student Teacher Required: Yes Student Teacher Language: Direct Response Consultant Services: Student Teacher Present (in person) Student Teacher Name: Sirisha CUMMINGS Information Interpreted: non-clinical & clinical Allergies No Known Allergies Allergy (Verified 11/19/24 11:05) HPI Comments Details: The patient is schedule telehealth visit for follow-up regarding Provera. Taking Provera 10 mg p.o. q.d. day 15-24 cyclicly and her menstrual cycles are regular PENDING SALE TO [facility] Medical History HTN (hypertension) Asthma Seasonal allergies Nicotine dependence, cigarettes, uncomplicated Fibromyalgia Chronic pain syndrome Anxiety and depression Migraines Constipation Complex ovarian cyst Abnormal uterine bleeding (AUB) Microscopic hematuria Interstitial cystitis Urinary frequency Stress incontinence Female pelvic pain Abdominal mass, left lower quadrant Well woman exam Breast lump Disc degeneration, lumbar Spondylosis of lumbar spine Arthritis Surgical History History of carpal tunnel surgery of left wrist History of cystoscopy History of salpingo-oophorectomy History of loop electrosurgical excision procedure (LEEP) History of bilateral tubal ligation Family History Sister History of breast cancer, Onset Age: 52 Brother History of bone cancer History of blood disorder History of brain cancer Paternal Aunt History of cancer of uterus Mother Hx of cancer of lung Sister Hx of hysterectomy Family/Other Hx of hysterectomy Family/Other Hx of hysterectomy Daughter Hx of thyroid cancer Social History Household Members: Significant Other Housing: Apartment Do you presently have visiting nurse or other home services: Yes (PELLETIZER daily) Alcohol intake: never Patient Tobacco Use Status: Current everyday Tobacco user Tobacco use type: Cigarette Cigarettes Per Day: 10 Years Smoked: (onset 10yo, 1/2-3/4ppd x 38yrs - 20pyh) Second Hand Smoke Exposure: No Substance Use Type: Marijuana service: No Sexual orientation: Straight/Heterosexual Gender identity: Female Female Reproductive History Menstrual Age of Menarche: 9 Review of Systems Const All systems reviewed & are unremarkable except as noted in HPI and below Reports as per HPI and Reports no additional complaints GI Reports no additional complaints Reports no additional complaints Telehealth Telehealth Telehealth Platform: Telephone Location of provider rendering services: practice address Location of patient: address on file Patient Identification confirmed using: Name, : Yes Telehealth method: video Patient verbally consented to treatment: Yes Patient verbally consented to billing insurance company: Yes Patient informed of any privacy concerns related to visit: Yes Minutes spent on Phone/Video with Pt.: 3 Assessment & Plan Assessment & Plan (1) Abnormal uterine bleeding (AUB): Code(s): N93.9 - Abnormal uterine and vaginal bleeding, unspecified Category: Medical Plan: Recommended refill Provera 10 mg p.o. q.d. day 15-24 cyclicly. Instructions given the patient to call in case of abnormal uterine bleeding. All questions answered, the patient verbalized understanding. I spent a total of 20 minutes reviewing the chart, talking to the patient via video and documenting in the medical record. Medications: Refilled medroxyprogesterone (Provera) start Provera 1 tablet daily from day 15-24 cyclically every months, day 1 being 1st day of menses 10 mg PO DAILY 30 tabs 3RF 10 days Coding Level of Care Code Tele Est Pt Level 3 (24584) Diagnoses Abnormal uterine bleeding (AUB) N93.9
--- OUTSIDE RECORDS SUMMARY | 2024-11-19 12:14 | XMS_ITS | Clinical Summary ---
Author Organization [facility] Address [address] [facility] [address] [place] [phone] Phone Care Team Providers Care Criminology Teacher Name Role Phone [place] [facility] Primary Care Provider Unavailable Allergies No [...] topic Medical Devices Not on file [place] [address] C3 ACO [facility] C3 [facility] C[address] [place] [address] [place] [address] [place] [address] [place] [address] C3 [facility] C3 [facility] C3 ACO [facility] C3 A[facility] C3 ACO Care Teams Criminology Teacher Relationship Specialty Start Date End Date CenterJesse MD PCP - General 12/24/21 Additional Source Comments The information contained in this document represents components of the legal health record. It is not the complete legal health record.[facility]
--- OUTSIDE RECORDS SUMMARY | 2024-11-19 12:14 | XMS_ITS | Clinical Summary ---
Author Organization [address] [facility] Address [address] [place] [address] Phone Care Team Providers Care Senior Peoplesoft Developer Name Role Phone Dory Ray MD [...] Name Administration Dates Next Due Hepatitis B (Gjrwfxt-K-Kmsnl , Recombivax HB-Adult) 19yo and older 01/18/2007,08/24/2006 [...] Luo OTHER SURGICAL HISTORY 09/25/2020 Left PROCEDURE: [place] NEUROPLASTY &/TRANSPOSITION ULNAR NERVE ELBOW; COMMENT: Submuscular Transposition, Dr. Luo OTHER SURGICAL HISTORY 04/14/2012 Left PROCEDURE: SD DCMPRN FASCT F/ARM&WRST FLXR/XTNSR W/O DBRDMT; COMMENT: 1st [place] Compartment/De Quervain's Release, Dr. Luo Medical History [...] Recently Relevant to Health Maintenance Care Teams Senior Peoplesoft Developer Relationship Specialty Start Date End Date Dory Ray MD [address] [place] [phone] PCP - General Internal Medicine 12/30/20
== END 2024-11-19 11:42 | disposition home or self-care (01) ==
LOC: HO.HWS 11:03
PROVIDERS: PCP Internal Medicine; Visit Provider Obstetrics & Gynecology
DX: N93.9 Abnormal uterine and vaginal bleeding, unspecified (principal)
CPT/HCPCS: 99213

== ENCOUNTER 2024-11-22 11:08 | Outpatient (AMB) | payer MEDICAID, SELFPAY ==
--- NOTE | 2024-11-22 11:18 | A.OFFVIS_ITS ---
Vital Signs 11/22/24 11:23 Height 5 ft 4 in Weight 161 lb BMI 27.6 Intake Visit Reasons: OV-LT knee OA f/u Intake Note: Marlene is a 49 year old female who presents today for a follow up of left knee OA. At her last visit patient deferred on injection, she was referred to physical therapy. Patient reports that she was not able to attend, stating being sick and she does not recall receiving a call. States her pain starts at the top of her left foot, travels up to her knee and her hip. She would like to discuss cortisone injection. She does not find much relief with gabapentin and motrin. Computer Programming Supervisor Services: Computer Programming Supervisor Offered & Declined Allergies No Known Allergies Allergy (Verified 11/22/24 11:23) Medication List - Last Reconciled 11/22/24 by Symone Mathur PA-C albuterol sulfate 90 mcg/actuation 2 puffs inhalation Q6H PRN betamethasone, augmented 0.05 % 1 appl topical BID cyclobenzaprine 10 mg PO TID PRN gabapentin 800 mg PO TID hydrochlorothiazide 25 mg PO DAILY Held on 04/14/24. Instructions: bp soft. hold for now; follow up with pcp hydroxyzine HCl 25 mg PO Q12H PRN ibuprofen 800 mg PO Q8H PRN lactulose 10 grams PO DAILY PRN lidocaine 5% 1 patch topical DAILY loratadine 10 mg PO DAILY PRN lorazepam 1 mg PO DAILY PRN medroxyprogesterone (Provera) 10 mg PO DAILY 10 days mirtazapine 15 mg PO BEDTIME nicotine 1 patch topical DAILY pantoprazole 40 mg PO DAILY@0630 trazodone 50 mg PO BEDTIME PRN ziprasidone HCl 20 mg PO BID zolpidem 5 mg PO BEDTIME HPI HPI OV-LT knee OA f/u: Details: 49-year-old female presents to the office today for left hip pain. She states the pain has been going on for over 3 months and it is worse when she is sleeping on the left side. She denies injury and denies groin pain. Denies numbness or tingling down the leg. [facility] Medical History HTN (hypertension) Asthma Seasonal allergies Nicotine dependence, cigarettes, uncomplicated Fibromyalgia Chronic pain syndrome Anxiety and depression Migraines Constipation Complex ovarian cyst Abnormal uterine bleeding (AUB) Microscopic hematuria Interstitial cystitis Urinary frequency Stress incontinence Female pelvic pain Abdominal mass, left lower quadrant Well woman exam Breast lump Disc degeneration, lumbar Spondylosis of lumbar spine Arthritis Surgical History History of carpal tunnel surgery of left wrist History of cystoscopy History of salpingo-oophorectomy History of loop electrosurgical excision procedure (LEEP) History of bilateral tubal ligation Family History Sister History of breast cancer, Onset Age: 52 Brother History of bone cancer History of blood disorder History of brain cancer Paternal Aunt History of cancer of uterus Mother Hx of cancer of lung Sister Hx of hysterectomy Family/Other Hx of hysterectomy Family/Other Hx of hysterectomy Daughter Hx of thyroid cancer Social History Household Members: Significant Other Housing: Apartment Do you presently have visiting nurse or other home services: Yes (SAS DEVELOPER ANALYST daily) Alcohol intake: never Patient Tobacco Use Status: Current everyday Tobacco user Tobacco use type: Cigarette Cigarettes Per Day: 10 Years Smoked: (onset 10yo, 1/2-3/4ppd x 38yrs - 20pyh) Second Hand Smoke Exposure: No Substance Use Type: Marijuana service: No Sexual orientation: Straight/Heterosexual Gender identity: Female Female Reproductive History Menstrual Age of Menarche: 9 Review of Systems Const All systems reviewed & are unremarkable except as noted in HPI and below Physical Exam Vital Signs: BMI result Body Mass Index 27.6 Const General: cooperative and no acute distress Orientation/consciousness: patient oriented x3 Resp Effort & Inspection: normal respiratory effort and able to speak in complete sentences Cardio Peripheral pulses: Peripheral pulses 2+ throughout Neuro General: patient oriented x3 Extrem Other: Left hip normal to inspection. No pain with ROM of the hip. Pain along the greater trochanter. No pain with hip flexion or abduction.There is tenderness along the si joint, Negative SLR. NVI. Office Procedures AMB Joint Injection/Aspiration Joint Injection/Aspiration Details: trochanteric bursa left Prep: site was prepped using aseptic technique, ethochloride spray was applied and injection warnings given Injected: 80 mg of, DepoMedrol, 1% plain lidocaine and 1% lidocaine with epinephrine 1:100,000 Procedure: The patient tolerated the procedure well and there was some relief with the local anesthesia Coding 90153 - Glenohumeral/Tronchanteric Bursa/Intraarticular Procedure code (CPT) selection complete Assessment & Plan Assessment & Plan (1) Trochanteric bursitis, left hip: Code(s): M70.62 - Trochanteric bursitis, left hip Category: Medical Plan: We discussed options today, which include steroid injection. The patient did consent to move forward with the left hip bursa injection, which was tolerated well.? I recommended rest, ice and elevation and OTC antiinflammatories prn for discomfort. If symptoms persist over the next 6-8 weeks, they will contact our office, otherwise, prn Coding Level of Care Code Est Pt Level 3 (89061) Complex EM visit Add On G2211 Diagnoses Trochanteric bursitis, left hip M70.62 CPT Codes Coding - Joint 7: 11290 - Glenohumeral/Tronchanteric Bursa/Intraarticular ([id number])
[2024-11-22 11:23] VITALS: BMI 27.6
--- OUTSIDE RECORDS SUMMARY | 2024-11-22 12:52 | XMS_ITS | Encounter Summary ---
Author Organization [employer] Address [address] [facility] [address] [place] [address] Care Team Providers Care Card Lacer Jacquard Name Role Phone Dory Ray MD Primary Care Provide r Le Us Unavailable Encounter Details Date Type Department Care Team ([facility] Contact Info) Description 04/07/2022 Orders Only [facility] MEDICINE [address] [place] [address] Rohini Middleton MD [address] [place] [address] [phone] Pain (Primary Dx) Social History Tobacco Use [...] Upcoming Encounters Date Type Department Care Team ([facility] Contact Info) Description 01/09/2025 10:45 AM EDT Office Visit [facility] MEDICINE [address] [place] [phone] Dory Ray MD [address], [place] [phone] 03/22/2025 10:30 AM EST Office Visit [facility] OPTOMETRY [address] [place], [place] [phone] Nathalia Allan, OD [address] [place], [place] [phone] documented as of this encounter Visit Diagnoses Diagnosis Pain- Primary Generalized pain documented in this encounter Care Teams Card Lacer Jacquard Relationship Specialty Start Date End Date Dory Ray MD [address], [place] [phone] PCP - General Family Medicine 01/03/19 Le Us 10/30/24 11/05/24 Jeane Lemons Bobbin PresserFire Warden 11/09/23 documented as of this encounter
--- OUTSIDE RECORDS SUMMARY | 2024-11-22 12:52 | XMS_ITS | Clinical Summary ---
Author Organization [address] [facility] Address [address] [place] [address] Phone Care Team Providers Care Life Cycle Assessment Analyst Name Role Phone Dory Ray MD [...] Name Administration Dates Next Due Hepatitis B (Lzovcsb-L-Xpkwi , Recombivax HB-Adult) 19yo and older 01/18/2007,08/24/2006 [...] FASCT F/ARM&WRST FLXR/XTNSR W/O DBRDMT; COMMENT: 1st [place] Compartment/De Quervain's Release, Dr. Luo Medical History [...] Recently Relevant to Health Maintenance Care Teams Life Cycle Assessment Analyst Relationship Specialty Start Date End Date Dory Ray MD [address] [place] [phone] PCP - General Internal Medicine 12/30/20
--- OUTSIDE RECORDS SUMMARY | 2024-11-22 12:52 | XMS_ITS | Clinical Summary ---
Author Organization [facility] Address [address] [facility] [address] [place] [address] Phone Care Team Providers Care Cooker Pie Filling Name Role Phone [place] [facility] Primary Care Provider Unavailable Allergies No known [...] topic Medical Devices Not on file [place] [address] C3 ACO [facility] C3 ACO [facility] [place] [address] [place] [address] [place] [address] [address] [place] [address] C3 [facility]3 [facility] C3 [facility] C3 [facility]CO [facility] C3 ACO Care Teams Cooker Pie Filling Relationship Specialty Start Date End Date CenterJesse MD PCP - General 12/24/21 Additional Source Comments The information contained in this document represents components of the legal health record. It is not the complete legal health record.[facility]
== END 2024-11-22 11:50 | disposition home or self-care (01) ==
LOC: HO.HOS 11:09
PROVIDERS: PCP Internal Medicine; Visit Provider Physician Assistant
DX: M70.62 Trochanteric bursitis, left hip (principal)
CPT/HCPCS: 20610; 99213

== ENCOUNTER → 2024-11-22 11:08 | Outpatient (BNVA) | payer MEDICAID, SELFPAY | PROVIDERS: PCP Internal Medicine; Visit Provider Physician Assistant | DX: M25.552 Pain in left hip (principal); M70.62 Trochanteric bursitis, left hip | CPT/HCPCS: 20610; 99212; J1010; J2003 ==

== ENCOUNTER 2024-11-25 06:13 | Emergency (ER) | payer MEDICAID, SELFPAY ==
--- NOTE | 2024-11-25 | ECG_ITS ---
Test Reason : CHEST PAIN Blood Pressure : */* mmHG Vent. Rate : 93 BPM Atrial Rate : 93 BPM P-R Int : 118 ms QRS Dur : 80 ms QT Int : 342 ms P-R-T Axes : 58 50 4 degrees QTcB Int : 425 ms Normal sinus rhythm Nonspecific ST abnormality Abnormal ECG When compared with ECG of 05-Oct-2024 19:47, No significant change was found Referred By: Generic ED Physician Electronically Signed By: NIRMAL ÁLVAREZ
--- NOTE | ~2024-11-25 | XR_ITS ---
CLINICAL HISTORY: chest pain, cough 1 view chest x-ray Comparison: 10/05/2024 Findings: Portions of the exam are obscured by overlying material. The lungs are clear. Normal size heart. No acute fracture. IMPRESSION: 1. No acute findings. This document has been electronically signed by: Barrett Cassidy MD on 11/25/2024 07:34:22
[2024-11-25 06:25] VITALS: BP 135/77; PULSE 90; RESP 16; TEMP 37.1; O2SAT 97; BMI 28.2
--- OUTSIDE RECORDS SUMMARY | 2024-11-25 06:26 | XMS_ITS | Clinical Summary ---
Author Organization 175 [facility] Address [address] [place] [address] Phone Care Team Providers Care Human Resources Training Manager Name Role Phone Dory Ray MD [...] Name Administration Dates Next Due Hepatitis B (Wldffjd-A-Hzyez , Recombivax HB-Adult) 19yo and older 01/18/2007,08/24/2006 [...] Luo OTHER SURGICAL HISTORY 09/25/2020 Left PROCEDURE: [place] NEUROPLASTY &/TRANSPOSITION ULNAR NERVE ELBOW; COMMENT: Submuscular Transposition, Dr. Luo OTHER SURGICAL HISTORY 04/14/2012 Left PROCEDURE: [place] DCMPRN FASCT F/ARM&WRST FLXR/XTNSR W/O DBRDMT; COMMENT: 1st [place] Compartment/De Quervain's Release, Dr. Luo Medical History [...] Recently Relevant to Health Maintenance Care Teams Human Resources Training Manager Relationship Specialty Start Date End Date Dory Ray MD [address] [place] [phone] PCP - General Internal Medicine 12/30/20
--- OUTSIDE RECORDS SUMMARY | 2024-11-25 06:26 | XMS_ITS | Clinical Summary ---
Author Organization [facility] Address [address] [facility] [address] [place] [phone] Phone Care Team Providers Care Financial Institution President Name Role Phone [place] [facility] Primary Care Provider Unavailable Allergies No [...] topic Medical Devices Not on file [place] [address] [address] [facility] [address] [facility] [address] [place] [address] [place] [address] [place] [address] [place] [address] [facility] [address] [facility] [address] [facility] [facility] C3 ACO Care Teams Financial Institution President Relationship Specialty Start Date End Date CenterJesse MD PCP - General 12/24/21 Additional Source Comments The information contained in this document represents components of the legal health record. It is not the complete legal health record.[facility]
[2024-11-25 06:27] LABS: MANUAL DIFF FLAG NO
[2024-11-25 06:29] LABS: Hematocrit 35.4 % (37.0-47.0); Hemoglobin 12.6 g/dl (12.0-16.0); Imm Gran Abs Auto 0.12 X10*3/uL (0.00-0.03); Imm Gran Pct Auto 0.9 % (0.0-0.4); Lymphocytes Absolute Auto 2.8 X10*3/uL (1.2-4.9); Mean Corpuscular HGB Conc 35.6 g/dl (31.0-35.0); Mean Corpuscular Hemoglobin 32.1 pg (27.0-33.0); Mean Corpuscular Volume 90.1 fL (80.0-98.0); NRBC Abs Auto 0.000 X10*3/uL (0.0-0.012); NRBC Pct Auto 0.0 /100WBC (0.0-0.2); Platelet Count 321 X10*3/uL (160-400); Red Blood Count 3.93 X10*6/uL (4.20-5.50); White Blood Count 13.2 X10*3/uL (4.8-10.8)
[2024-11-25 06:34] VITALS: PULSE 90
[2024-11-25 06:44] LABS: Alanine Aminotransferase 26 U/L (0-31); Albumin Level 4.5 g/dL (3.5-5.0); Alkaline Phosphatase 47 U/L (39-117); Anion Gap 14 (12-20); Aspartate Amino Transferase 19 U/L (5-31); Blood Urea Nitrogen 15 mg/dL (9-16); Calcium 9.0 mg/dL (8.4-10.2); Carbon Dioxide 21 mmol/L (22-29); Chloride 106 mmol/L (96-108); Creatinine Clr Calc Pharmacy 95.4; Estimated Glomerular Filt Rate > 60; Potassium 3.5 mmol/L (3.3-5.1); Sodium 137 mmol/L (135-145); Total Protein 7.5 g/dL (6.5-8.0)
[2024-11-25 06:57] LABS: Troponin-I High Sensitivity < 2.7 ng/L (<3.5-17.0)
[2024-11-25 07:31] LABS: Resp Syncy Virus RNA Qual PCR NEGATIVE (Negative); SARS COV2 PCR INHOUSE NEGATIVE (Negative)
--- NOTE | 2024-11-25 07:35 | ED.CHESTPAIN ---
HPI - Chest Pain General Chief Complaint: Chest Pain Stated Complaint: Chest Pain Time Seen by Provider: 11/25/24 06:59 Source: patient Limitations: no limitations History of Present Illness HPI narrative: This is a 49 years old presented to the emergency department with chest pain since 19:00 yesterday the pain is in the midsternum radiating to the right upper quadrant left upper quadrant pain is not exertional. She has a history of smoking, anxiety, she has been evaluated for prior chest pain. No history of diabetes no history of hypercholesterolemia MD complaint: chest pain Onset (ago): day(s) (1) Timing of current episode: constant Onset: during rest Pain location: substernal Pain radiation: other (Right upper quadrant of the left upper quadrant) Severity: mild Quality: aching Relieving factors: nothing Exacerbating factors: nothing Treatment prior to arrival: none Risk Factors Coronary artery disease risk factors: smoking history and hypertension Related Data On Oral Contraceptives: No Home Medications ?Medication ?Instructions ?Recorded ?Confirmed lactulose 10 gram/15 mL oral 10 g PO DAILY PRN Constipation 02/09/21 11/22/24 solution lorazepam 1 mg tablet 1 mg PO DAILY PRN Anxiety 01/27/22 11/22/24 hydrochlorothiazide 25 mg tablet 25 mg PO DAILY nx 10/19/23 11/22/24 Held on 04/14/24. Instructions: bp soft. hold for now; follow up with pcp hydroxyzine HCl 25 mg tablet 25 mg PO Q12H PRN Anxiety 10/19/23 11/22/24 mirtazapine 15 mg tablet 15 mg PO BEDTIME 10/19/23 11/22/24 pantoprazole 40 mg tablet,delayed 40 mg PO DAILY@0630 10/19/23 11/22/24 release trazodone 50 mg tablet 50 mg PO BEDTIME PRN insomnia 10/19/23 11/22/24 ibuprofen 800 mg tablet 800 mg PO Q8H PRN moderate pain 01/18/24 11/22/24 betamethasone, augmented 0.05 % 1 appl topical BID 04/13/24 11/22/24 topical ointment cyclobenzaprine 10 mg tablet 10 mg PO TID PRN muscle spasm 04/13/24 11/22/24 gabapentin 800 mg tablet 800 mg PO TID 04/13/24 11/22/24 loratadine 10 mg tablet 10 mg PO DAILY PRN allergies 04/13/24 11/22/24 nicotine 14 mg/24 hr daily 1 patch topical DAILY 04/13/24 11/22/24 transdermal patch ziprasidone HCl 20 mg capsule 20 mg PO BID 04/13/24 11/22/24 zolpidem 5 mg tablet 5 mg PO BEDTIME 04/13/24 11/22/24 Previous Rx's ?Medication ?Instructions ?Recorded albuterol sulfate 90 mcg/actuation 2 puff inhalation Q6H PRN 11/14/20 aerosol inhaler shortness of breath or wheezing #8.5 grams lidocaine 5 % topical patch 1 patch topical DAILY #30 ea 04/12/24 medroxyprogesterone 10 mg tablet 10 mg PO DAILY 10 days #30 tabs 11/19/24 (Provera) naproxen 500 mg tablet (Naprosyn) 500 mg PO BID PRN PAIN #10 tabs 11/25/24 Allergies Allergy/AdvReac Type Severity Reaction Status Date / Time No Known Allergies Allergy Verified 11/25/24 06:27 Review of Systems Constitutional: Constitutional: Reports no additional constitutional complaints Cardiovascular: Cardiovascular: Reports as per HPI and Reports chest pain PMFSH Past Medical History Medical History HTN (hypertension) Asthma Seasonal allergies Nicotine dependence, cigarettes, uncomplicated Fibromyalgia Chronic pain syndrome Anxiety and depression Migraines Constipation Complex ovarian cyst Abnormal uterine bleeding (AUB) Microscopic hematuria Interstitial cystitis Urinary frequency Stress incontinence Female pelvic pain Abdominal mass, left lower quadrant Well woman exam Breast lump Disc degeneration, lumbar Spondylosis of lumbar spine Arthritis Surgical History History of carpal tunnel surgery of left wrist History of cystoscopy History of salpingo-oophorectomy History of loop electrosurgical excision procedure (LEEP) History of bilateral tubal ligation Family History Family History Sister History of breast cancer, Onset Age: 52 Brother History of bone cancer History of blood disorder History of brain cancer Paternal Aunt History of cancer of uterus Mother Hx of cancer of lung Sister Hx of hysterectomy Family/Other Hx of hysterectomy Family/Other Hx of hysterectomy Daughter Hx of thyroid cancer Social History Social History Household Members: Significant Other Housing: Apartment Do you presently have visiting nurse or other home services: Yes ([employer] daily) Alcohol intake: never Patient Tobacco Use Status: Current everyday Tobacco user Tobacco use type: Cigarette Cigarettes Per Day: 10 Years Smoked: (onset 10yo, 1/2-3/4ppd x 38yrs - 20pyh) Smoked in Last 30 Days: Yes Second Hand Smoke Exposure: No Substance Use Type: Marijuana Advance Directives: No Advance Directives Information Provided: No service: No Sexual orientation: Straight/Heterosexual Gender identity: Female Physical Exam Exam: Exam: Not acute distress looks well Vital Signs: Vital Signs: Last Vital Signs Temp 98.7 F 11/25/24 06:25 Pulse 90 11/25/24 06:25 Resp 16 11/25/24 06:25 BP 135/77 11/25/24 06:25 Pulse Ox 97 11/25/24 06:25 O2 Del Method Room Air 11/25/24 06:25 BMI result Body Mass Index 28.2 Const: General: cooperative Nutritional Appearance: average body habitus Orientation/consciousness: patient oriented x3 Limitations: no limitations HEENT: Head: Yes normal to inspection Ears: hearing grossly normal bilaterally General nose exam: Normal external nose present Face and sinus: Yes normal facial exam Mouth: Normal oral and palatal mucosa present Neck: Neck: Yes normal visual inspection Chest: Chest palpation & inspection: normal inspection of the chest Resp: Effort & Inspection: normal respiratory effort Auscultation: clear to auscultation bilaterally Cardio: Jugular venous distension: no JVD Rate: regular rate Rhythm: regular rhythm GI: Inspection: Yes normal to inspection Palpation (GI): Soft to palpation, not firm and nontender Auscultation: normal bowel sounds Skin: General skin exam: no rashes or lesions noted, elasticity normal and turgor normal Neuro: General: patient oriented x3 Course Reevaluation(s) Reevaluation #1: Bedside echo was done by me good wall motion, no pericardial effusion, ascending aorta no dilated Time: 09:42 Medications Administered Discontinued Medications Generic Name Dose Route Start Last Admin Trade Name Freq PRN Reason Stop Dose Admin Oxycodone HCl 5 mg 11/25/24 07:25 11/25/24 07:59 Oxycodone Hcl Immed Release 5 Mg Tablet PO 11/25/24 07:26 5 mg ONCE ONE Administration Medical Decision Making Medical Decision Making [facility] Narrative: Patient is here with chest pain since yesterday we will obtain EKG and labs 09:40 delta trop is flat, unlikely acute coronary syndrome, D-dimer negative unlikely PE, also unlikely dissection given negative D-dimer normal blood pressure clinical picture is more consistent with chest wall pain I can reproduce the pain on palpation, bedside echo done by dc shows no pericardial effusion ascending aorta no dilated Differential Diagnosis Differential Diagnoses: The differential diagnosis associated with the presentation includes Acute coronary syndrome/pericarditis/PE/dissection Admission/Observation Consideration of admission/observation: Escalation of care including admission/observation considered Lab Data [facility] Lab Attestation statement: I reviewed the patient's lab results. 11/25/24 06:22 11/25/24 06:22 Labs: Lab Results 11/25/24 11/25/24 11/25/24 Range/Units 06:22 06:23 06:48 WBC 13.2 H (4.8-10.8) X10*3/uL RBC 3.93 L (4.20-5.50) X10*6/uL Hgb 12.6 (12.0-16.0) g/dl Hct 35.4 L (37.0-47.0) % MCV 90.1 (80.0-98.0) fL MCH 32.1 (27.0-33.0) pg MCHC 35.6 H (31.0-35.0) g/dl RDW 13.3 (11.0-16.0) % Plt Count 321 (160-400) X10*3/uL MPV 9.0 L (9.4-12.3) fL Immature Gran % (Auto) 0.9 H (0.0-0.4) % Neut % (Auto) 72.6 (45-73) % Lymph % (Auto) 20.9 (20-40) % Bland % (Auto) 4.6 (2-11) % Eos % (Auto) 0.8 (0-4) % Baso % (Auto) 0.2 (0-2) % Lymph # (Auto) 2.8 (1.2-4.9) X10*3/uL Bland # (Auto) 0.6 (0.1-1.2) X10*3/uL Eos # (Auto) 0.1 (0.0-0.4) X10*3/uL Baso # (Auto) 0.0 (0.0-0.2) X10*3/uL Abs Immat Gran (auto) 0.12 H (0.00-0.03) X10*3/uL Absolute Neuts (auto) 9.6 H (2.0-8.3) x10*3/uL Absolute Nucleated RBC 0.000 (0.0-0.012) X10*3/uL Nucleated RBC % (auto) 0.0 (0.0-0.2) /100WBC D-Dimer High Sensitivty NG/ML Sodium 137 (135-145) mmol/L Potassium 3.5 (3.3-5.1) mmol/L Chloride 106 (96-108) mmol/L Carbon Dioxide 21 L (22-29) mmol/L Anion Gap 14 (12-20) BUN 15 (9-16) mg/dL Creatinine 0.69 (0.5-1.4) mg/dL Estim Creat Clear Calc 95.4 Estimated GFR > 60 Random Glucose 151 H (60-115) mg/dL Calcium 9.0 (8.4-10.2) mg/dL Total Bilirubin 0.2 (0.0-1.0) mg/dL AST 19 (5-31) U/L ALT 26 (0-31) U/L Alkaline Phosphatase 47 (39-117) U/L Troponin I High Sens < 2.7 (<3.5-17.0) ng/L Total Protein 7.5 (6.5-8.0) g/dL Albumin 4.5 (3.5-5.0) g/dL Influenza Type A (PCR) NEGATIVE (Negative) Influenza Type B (PCR) NEGATIVE (Negative) RSV RNA Qual (PCR) NEGATIVE (Negative) SARS-CoV-2 RNA (RT-PCR) NEGATIVE (Negative) 11/25/24 Range/Units 07:42 WBC (4.8-10.8) X10*3/uL RBC (4.20-5.50) X10*6/uL Hgb (12.0-16.0) g/dl Hct (37.0-47.0) % MCV (80.0-98.0) fL MCH (27.0-33.0) pg MCHC (31.0-35.0) g/dl RDW (11.0-16.0) % Plt Count (160-400) X10*3/uL MPV (9.4-12.3) fL Immature Gran % (Auto) (0.0-0.4) % Neut % (Auto) (45-73) % Lymph % (Auto) (20-40) % Bland % (Auto) (2-11) % Eos % (Auto) (0-4) % Baso % (Auto) (0-2) % Lymph # (Auto) (1.2-4.9) X10*3/uL Bland # (Auto) (0.1-1.2) X10*3/uL Eos # (Auto) (0.0-0.4) X10*3/uL Baso # (Auto) (0.0-0.2) X10*3/uL Abs Immat Gran (auto) (0.00-0.03) X10*3/uL Absolute Neuts (auto) (2.0-8.3) x10*3/uL Absolute Nucleated RBC (0.0-0.012) X10*3/uL Nucleated RBC % (auto) (0.0-0.2) /100WBC D-Dimer High Sensitivty 227 NG/ML Sodium (135-145) mmol/L Potassium (3.3-5.1) mmol/L Chloride (96-108) mmol/L Carbon Dioxide (22-29) mmol/L Anion Gap (12-20) BUN (9-16) mg/dL Creatinine (0.5-1.4) mg/dL Estim Creat Clear Calc Estimated GFR Random Glucose (60-115) mg/dL Calcium (8.4-10.2) mg/dL Total Bilirubin (0.0-1.0) mg/dL AST (5-31) U/L ALT (0-31) U/L Alkaline Phosphatase (39-117) U/L Troponin I High Sens < 2.7 (<3.5-17.0) ng/L Total Protein (6.5-8.0) g/dL Albumin (3.5-5.0) g/dL Influenza Type A (PCR) (Negative) Influenza Type B (PCR) (Negative) RSV RNA Qual (PCR) (Negative) SARS-CoV-2 RNA (RT-PCR) (Negative) Independent Interpretation I performed an independent interpretation of an: EKG and Plain X-Ray (Not acute disease) Interpretation: EKG was reviewed interpreted by me as normal sinus rhythm rate [address]-T changes no ischemia Radiology Impression Discussion of test interpretation with radiology: I have reviewed the radiologist's reading. Discharge Plan Discharge Clinical Impression: Chest wall pain Patient Disposition: Home, Self-Care Instructions: Chest Wall Pain (ED) Additional Instructions: Follow-up with your primary care physician tomorrow return to the emergency department if worse any concern Prescriptions: New naproxen [Naprosyn] 500 mg tablet 500 mg PO BID PRN (Reason: PAIN) Qty: 10 0RF No Action albuterol sulfate 90 mcg/actuation HFA aerosol inhaler 2 puff inhalation Q6H PRN (Reason: shortness of breath or wheezing) Qty: 8.5 0RF cyclobenzaprine 10 mg tablet 10 mg PO TID PRN (Reason: muscle spasm) ziprasidone HCl 20 mg capsule 20 mg PO BID betamethasone, augmented 0.05 % ointment 1 appl TOPICAL BID gabapentin 800 mg tablet 800 mg PO TID loratadine 10 mg tablet 10 mg PO DAILY PRN (Reason: allergies) nicotine 14 mg/24 hr patch 24 hour 1 patch topical DAILY zolpidem 5 mg tablet 5 mg PO BEDTIME lidocaine 5 % adhesive patch,medicated 1 patch topical DAILY Qty: 30 0RF Rx Instructions: leave on most painful area for up to 12 hrs lorazepam 1 mg tablet 1 mg PO DAILY PRN (Reason: Anxiety) lactulose 10 gram/15 mL solution 10 g PO DAILY PRN (Reason: Constipation) mirtazapine 15 mg tablet 15 mg PO BEDTIME hydrochlorothiazide 25 mg tablet 25 mg PO DAILY trazodone 50 mg tablet 50 mg PO BEDTIME PRN (Reason: insomnia) pantoprazole 40 mg tablet,delayed release (DR/EC) 40 mg PO DAILY@0630 hydroxyzine HCl 25 mg tablet 25 mg PO Q12H PRN (Reason: Anxiety) medroxyprogesterone [Provera] 10 mg tablet 10 mg PO DAILY 10 Days Qty: 30 3RF Rx Instructions: start Provera 1 tablet daily from day 15-24 cyclically every months, day 1 being 1st day of menses ibuprofen 800 mg tablet 800 mg PO Q8H PRN (Reason: moderate pain) Referrals: Physician,Unknown J [Primary Care Provider, Medical] Print Language: Jordanian
[2024-11-25 07:55] LABS: D Dimer High Sensitivity 227 NG/ML
[2024-11-25] MEDS: oxyCODONE HCl Immed Release 5 MG TABLET PO (07:59)
[2024-11-25 08:12] LABS: Troponin-I High Sensitivity < 2.7 ng/L (<3.5-17.0)
[2024-11-25 09:45] VITALS: BP 126/82; PULSE 72; RESP 19; TEMP -17.7; TEMP 0; O2SAT 95
== END 2024-11-25 09:46 | disposition home or self-care (01) ==
PROVIDERS: Emergency Provider Emergency Medicine
DX: R07.89 Other chest pain (principal); Z87.891 Personal history of nicotine dependence
CPT/HCPCS: 36415; 71045; 80053; 84484; 85025; 85379; 87637; 93005; 99283; 99285

== ENCOUNTER → 2024-11-25 06:19 | Outpatient (BNV) | payer MEDICAID, SELFPAY | PROVIDERS: Emergency Provider Emergency Medicine; Visit Provider Internal Medicine | DX: R94.31 Abnormal electrocardiogram [ECG] [EKG] (principal); R07.9 Chest pain, unspecified | CPT/HCPCS: 93010 ==

== ENCOUNTER → 2024-11-25 06:39 | Outpatient (BNV) | payer MEDICAID, SELFPAY | PROVIDERS: Emergency Provider Emergency Medicine; Visit Provider Specialist | DX: R07.9 Chest pain, unspecified (principal) | CPT/HCPCS: 71045 ==

== ENCOUNTER 2024-12-13 11:48 | Outpatient (REF) | payer MEDICAID, SELFPAY ==
--- NOTE | ~2024-12-13 | US_ITS ---
EXAMINATION: Noninvasive assessment of the bilateral lower extremities with ARTERIAL DUPLEX, ANKLE BRACHIAL INDICES (ABIs), and PULSE VOLUME RECORDINGS (PVRs). CLINICAL INFORMATION: Peripheral vascular disease. TECHNIQUE: Duplex Doppler techniques with waveform analysis and measurement of velocities in the bilateral common femoral, profunda femoris, superficial femoral, popliteal and tibial arteries were performed. Additionally, ankle pulse volume recordings, ankle pressure measurements and ankle brachial indices were obtained of the lower extremity arterial system bilaterally. The study was performed only at rest. COMPARISON: None FINDINGS: DIRECT DUPLEX DOPPLER FINDINGS: RIGHT LEG: Common femoral artery: 165 cm/s, phasicity: Triphasic. Spectral broadening. Profunda femoris artery: 118 cm/s, phasicity: Monophasic. Spectral broadening. Superficial femoral artery (proximal): 143 cm/s, phasicity: Triphasic. Superficial femoral artery (mid): 131 cm/s, phasicity: Triphasic. Superficial femoral artery (distal): 99 cm/s, phasicity: Triphasic. Popliteal artery: 78 cm/s, phasicity: Triphasic. Posterior tibial artery: 93 cm/s, phasicity: Triphasic. Spectral broadening. Peroneal artery: 48 cm/s, phasicity: Triphasic. Anterior tibial artery: 79 cm/s, phasicity: Triphasic. Spectral broadening. Dorsalis pedis artery: 45 cm/s, phasicity:Biphasic. Spectral broadening. LEFT LEG: Common femoral artery: 176 cm/s, phasicity: Triphasic. Profunda femoris artery: 120 cm/s, phasicity: Monophasic. Spectral broadening. Superficial femoral artery (proximal): 145 cm/s, phasicity: Triphasic. Superficial femoral artery (mid): 151 cm/s, phasicity: Triphasic. Superficial femoral artery (distal): 88 cm/s, phasicity: Triphasic. Popliteal artery: 92 cm/s, phasicity: Triphasic. Spectral broadening. Posterior tibial artery: 76 cm/s, phasicity: Triphasic. Spectral broadening. Peroneal artery: 54 cm/s, phasicity: [Biphasic. Anterior tibial artery: 78 cm/s, phasicity: Triphasic. Spectral broadening. Dorsalis pedis artery: 53 cm/s, phasicity: Triphasic. Spectral broadening. BRACHIAL PRESSURES: Right: 134 Left: 124 ANKLE PRESSURES: Right: PT 141, DP 135 Left: PT 136, DP 133 ANKLE-BRACHIAL INDEX: Right: 1.05 Left: 1.01 ANKLE PVR WAVEFORMS: Right: Normal Left: Normal US/US arterial duplex BI w/ FRANK IMPRESSION: Right leg: Disease proximal profundal femoral artery. Mild to moderate inflow disease, dorsalis pedis artery. Left leg: Disease proximal profundal femoral artery. Mild inflow disease, peroneal artery. FRANK Reference: - >1.4 = calcified vessels - 0.9 - 1.4 = normal - no significant arterial disease - 0.7 - 0.89 = mild peripheral arterial disease - 0.51 - 0.69 = moderate peripheral arterial disease - 0.50 = severe peripheral arterial disease - < .30 = critical arterial disease Electronically signed by: Luis Enrique Sheriff MD 12/13/2024 02:10 PM EDT
--- OUTSIDE RECORDS SUMMARY | 2024-12-13 16:10 | XMS_ITS | Clinical Summary ---
Author Organization [address] [facility] Address [address] [place] [address] Phone Care Team Providers Care Supervisory It Specialist Name Role Phone Dory Ray MD [...] Name Administration Dates Next Due Hepatitis B (Vljktdl-D-Evafn , Recombivax HB-Adult) 19yo and older 01/18/2007,08/24/2006 [...] Luo OTHER SURGICAL HISTORY 09/25/2020 Left PROCEDURE: WI NEUROPLASTY &/TRANSPOSITION ULNAR NERVE ELBOW; COMMENT: Submuscular Transposition, Dr. Luo OTHER SURGICAL HISTORY 04/14/2012 Left PROCEDURE: WI DCMPRN FASCT F/ARM&WRST FLXR/XTNSR W/O DBRDMT; COMMENT: 1st [place] Compartment/[place]'s Release, Dr. Luo Medical History [...] 03/07/2022 Zoster Vaccines (1 of 2) 07/26/2023 Depression Screening 04/04/2024 COVID-19 Vaccine (1 - 2023-2 5 season) 2024 Influenza Vaccine (#1) 2024 5, 12/10/2011 HIB [...] Recently Relevant to Health Maintenance Care Teams Supervisory It Specialist Relationship Specialty Start Date End Date Dory Ray MD [address] [place] [phone] PCP - General Internal Medicine 12/30/20
--- OUTSIDE RECORDS SUMMARY | 2024-12-13 16:11 | XMS_ITS | Clinical Summary ---
Author Organization [facility] Address [address] [place] [phone] Phone Care Team Providers Care Child Care Provider Name Role Phone [facility] Primary Care Provider Unavailable Allergies No known [...] 07/26/2023 ZOSTER VACCINES (1 of 2) 07/26/2023 INFLUENZA VACCINE (#1) 2024 COVID-19 VACCINE ( - 2023-2 5 season) 2024 HEPATITIS A VACCINES Aged Out No long [...] topic Medical Devices Not on file Insurance [facility] C3 ACO [facility] [place] [address] [address] [address] [employer] [place] [address] [place] [address] [place] [address] [place] [address] [place] [address] C3 ACO [facility] C3 ACO Care Teams Child Care Provider Relationship Specialty Start Date End Date CenterJesse MD PCP - General 12/24/21 Additional Source Comments The information contained in this document represents components of the legal health record. It is not the complete legal health record.[facility]
== END 2024-12-13 11:49 | disposition home or self-care (01) ==
LOC: HO.US 11:48
PROVIDERS: PCP Internal Medicine; Visit Provider Surgery Vascular Surgery
DX: I73.9 Peripheral vascular disease, unspecified (principal)
CPT/HCPCS: 93922; 93925

== ENCOUNTER → 2024-12-13 11:50 | Outpatient (BNV) | payer MEDICAID, SELFPAY | PROVIDERS: PCP Internal Medicine; Visit Provider Radiology Diagnostic Radiology | DX: I73.9 Peripheral vascular disease, unspecified (principal) | CPT/HCPCS: 93922; 93925 ==

== ENCOUNTER 2024-12-18 08:42 | Outpatient (AMB) | payer MEDICAID, SELFPAY ==
[2024-12-18 09:01] VITALS: BMI 28.1
--- NOTE | 2024-12-18 09:01 | MHC.OFFVIS ---
Vital Signs 12/18/24 09:01 Height 5 ft 4 in Weight 164 lb BMI 28.1 Intake Visit Reasons: PRN follow up s/p Arterial US 12/13/24 Intake Note: PRN follow up for bilateral LE arterial US 12/13/24. Pt states she has LE swelling and pain, has hx of US, last seen 01/07/22 Bulk Sealer Operator Required: No Accompanied by: Self / Same As Patient Allergies No Known Allergies Allergy (Verified 12/18/24 09:03) HPI HPI PRN follow up s/p Arterial US 12/13/24: Details: The patient is a 49-year-old female presenting with recurrent leg pain. The leg pain has been associated with swelling and has prompted an arterial ultrasound, which returned normal results, indicating no vascular issues. The patient also reports experiencing back pain, which is localized to the middle and lower back. The back pain is severe enough to warrant consideration for pain management referral, although the patient is hesitant about injections. Additionally, the patient has been informed of low potassium levels, or hypokalemia, which may contribute to her symptoms. She has been advised to take a daily multivitamin to address potential vitamin deficiencies. [facility] Medical History HTN (hypertension) Asthma Seasonal allergies Nicotine dependence, cigarettes, uncomplicated Fibromyalgia Chronic pain syndrome Anxiety and depression Migraines Constipation Complex ovarian cyst Abnormal uterine bleeding (AUB) Microscopic hematuria Interstitial cystitis Urinary frequency Stress incontinence Female pelvic pain Abdominal mass, left lower quadrant Well woman exam Breast lump Disc degeneration, lumbar Spondylosis of lumbar spine Arthritis Surgical History History of carpal tunnel surgery of left wrist History of cystoscopy History of salpingo-oophorectomy History of loop electrosurgical excision procedure (LEEP) History of bilateral tubal ligation Family History Sister History of breast cancer, Onset Age: 52 Brother History of bone cancer History of blood disorder History of brain cancer Paternal Aunt History of cancer of uterus Mother Hx of cancer of lung Sister Hx of hysterectomy Family/Other Hx of hysterectomy Family/Other Hx of hysterectomy Daughter Hx of thyroid cancer Social History Household Members: Significant Other Housing: Apartment Do you presently have visiting nurse or other home services: Yes (WINDOW REPAIRER daily) Alcohol intake: never Patient Tobacco Use Status: Current everyday Tobacco user Tobacco use type: Cigarette Cigarettes Per Day: 10 Years Smoked: (onset 10yo, 1/2-3/4ppd x 38yrs - 20pyh) Second Hand Smoke Exposure: No Substance Use Type: Marijuana service: No Sexual orientation: Straight/Heterosexual Gender identity: Female Female Reproductive History Menstrual Age of Menarche: 9 Review of Systems Const All systems reviewed & are unremarkable except as noted in HPI and below Reports no additional complaints ENT Reports Normal hearing present Card Denies chest pain, Denies chest pain at rest, Denies chest pain with activity and Denies pedal edema Resp Denies cough GI Denies abdominal pain Musc Denies abnormal gait, Denies muscle cramps and Denies radiating pain into limb Skin/Breast Denies skin ulcer and Denies wounds Neuro Reports Normal hearing present and Denies abnormal gait Psych Reports no additional complaints Physical Exam Vital Signs: BMI result Body Mass Index 28.1 Const General: cooperative, healthy appearing and comfortable Orientation/consciousness: oriented to person, oriented to place and oriented to time HEENT Head: Yes normal to inspection Neck Neck: Yes normal visual inspection Carotids: no bruits Chest Chest palpation & inspection: normal inspection of the chest Resp Effort & Inspection: normal respiratory effort and able to speak in complete sentences Auscultation: clear to auscultation bilaterally, no crackles, no rales, no rhonchi and no wheezes Cardio Other: Bilateral palpable dorsalis pedis pulses Rate: regular rate Rhythm: regular rhythm Heart sounds: S1 normal heart sound present and S2 normal heart sound present Bruits: no carotid bruits Peripheral pulses: Peripheral pulses 2+ throughout GI Inspection: Yes normal to inspection Skin Wounds: no wounds Hair: normal Neuro General: oriented to person, oriented to place and oriented to time Cranial nerves: Yes CN's II-XII intact bilaterally and Yes Normal hearing present Cognition (Neuro): normal cognition Motor exam (neuro): 5/5 motor strength present throughout Extrem Other: venous exam: No significant superficial varicosities or spider telangiectasias, minimal edema General: No clubbing, No cyanosis and No edema Psych Appearance: grossly normal Mental Status: mental status grossly normal Speech and movement: Normal speech and movement present Results Reviewed Results Reviewed: Noninvasive arterial testing dated 12/13/2024 demonstrates FRANK on the right of 1.05 and on the left of 1.01. Written report and images were reviewed. Assessment & Plan Assessment & Plan (1) PAD (peripheral artery disease): Code(s): I73.9 - Peripheral vascular disease, unspecified Category: Medical Plan: During the visit, I discussed with the patient that the arterial ultrasound results were normal, indicating no vascular cause for her leg pain. I recommended monitoring her symptoms and considering further evaluation if necessary. We also discussed her back pain and the potential referral to pain management, although she expressed reluctance towards injections. I advised her to continue taking a daily multivitamin to address her low potassium levels. Plan Patient was informed and verbally consented to the use of an ambient scribe for clinic note documentation during this visit. Patient Instructions: - Continue taking a daily multivitamin to address low potassium levels. - Monitor leg pain symptoms and seek further evaluation if they persist or worsen. - Consider pain management options for back pain, keeping in mind personal preferences regarding treatment methods. Coding Level of Care Code Est Pt Level 4 (02643) Diagnoses PAD (peripheral artery disease) I73.9
--- OUTSIDE RECORDS SUMMARY | 2024-12-18 10:29 | XMS_ITS | Encounter Summary ---
Author Organization [employer] Address [address] [place] [address] 7t [place] [address] Care Team Providers Care Supervisor Electrolytic Tinning Name Role Phone Dory Ray MD Primary Care Provide r Le Us Unavailable Reason for Visit * Reason Onset Date Comments Nurse Triage 10/11/2022 Encounter Details Date Type Department Care Team ([facility] st Contact Info) Description 10/11/2022 Telephone [facility] MEDICINE [address] [place] [address] Dory Ray MD [address] [place] [address] Nurse Triage Social History Tobacco Use Types [...] 10/11/2022 11:39 AM EDT Triage call with [employer] chief executive or managing director ID [id number] Pt calls with numerous concerns but, abdominal [...] abdominal discomfort. Advised Pt to come to [facility] to be seen and Pt reports [...] accepted this outcome Please contact pt at [phone] (Japanese speaker) documented in this encounter Plan of Treatment Upcoming Encounters Date Type Department Care Team (Late st Contact Info) Description 01/09/2025 10:45 AM EDT Office Visit [facility] MEDICINE [address] [place], [place] [phone] Dory Ray MD [address] [place] [address] 03/22/2025 10:30 AM EST Office Visit [facility] OPTOMETRY [address] [place], [place] [phone] Nathalia Allan OD [address] [place] [address] documented as of this encounter Visit Diagnoses Not on filedocumented in this encounter Additional Health Concerns Assessment Noted Time PHQ-9 Depression Total Score: 21 023 9:24 AM EDT documented as of this encounter Care Teams Supervisor Electrolytic Tinning Relationship Specialty Start Date End Date Dory Ray MD [address] [place] [address] PCP - General Family Medicine 01/03/19 Le Us 10/30/24 11/05/24 Jeane Lemons Community Service CoordinatorEmbroidery Cutter 11/09/23 documented as of this encounter
--- OUTSIDE RECORDS SUMMARY | 2024-12-18 10:29 | XMS_ITS | Encounter Summary ---
Author Organization [employer] Address [address] 7t [place] [address] Care Team Providers Care Tunnel Man Name Role Phone Dory Ray MD Primary Care Provide r Le Us Unavailable Reason for Visit * Reason Comments Med Refill Encounter Details Date Type Department Care Team ([facility] st Contact Info) Description 02/22/2024 Refill [facility] CHC MED & PEDS [address] [place] [address] Dory Ray MD [address] [place] [address] Chronic pain syndrome; Anxiety Social History Tobacco [...] of the following? None of the above;Lead Anchor or Pipes;Pests such as bugs, ants, or [...] Description 01/09/2025 10:45 AM EDT Office Visit [facility] MEDICINE [address] [place] [address] Dory Ray MD [address] [place] [address] 03/22/2025 10:30 AM EST Office Visit [facility] OPTOMETRY [address] [place] [address] Nathalia Allan OD [address] [place] [address] documented as of this encounter Goals Goal [...] documented as of this encounter Care Teams Tunnel Man Relationship Specialty Start Date End Date Dory Ray MD [address] [place] [address] PCP - General Family Medicine 01/03/19 Le Us 10/30/24 11/05/24 Jeane Lemons Curtain Roller AssemblerCartridge Maker 11/09/23 documented as of this encounter
--- OUTSIDE RECORDS SUMMARY | 2024-12-18 10:29 | XMS_ITS | Encounter Summary ---
Author Organization [employer] Address [address] [facility] 7t [place] [address] Care Team Providers Care Heat Treating Bluer Name Role Phone Dory Ray MD Primary Care Provide r Le Us Unavailable Encounter Details Date Type Department Care Team ([facility] Contact Info) Description 04/07/2022 Orders Only [facility] MEDICINE [address] [place] [address] Rohini Middleton MD [address] [place] [address] [phone] Pain (Primary Dx) Social History Tobacco Use [...] Upcoming Encounters Date Type Department Care Team ([facility] Contact Info) Description 01/09/2025 10:45 AM EDT Office Visit [facility] MEDICINE [address] [place] [address] Dory Ray MD [address] [place], [place] [phone] 03/22/2025 10:30 AM EST Office Visit [facility] OPTOMETRY [address] [place], [place] [phone] Nathalia Allan, OD [address] [place], [place] [phone] documented as of this encounter Visit Diagnoses Diagnosis Pain- Primary Generalized pain documented in this encounter Care Teams Heat Treating Bluer Relationship Specialty Start Date End Date oDry Ray MD [address] [place], [place] [phone] PCP - General Family Medicine 01/03/19 Le Us 10/30/24 11/05/24 Jeane Lemons Relationship BankerSemiconductor Processing Group Leader 11/09/23 documented as of this encounter
--- OUTSIDE RECORDS SUMMARY | 2024-12-18 10:29 | XMS_ITS | Encounter Summary ---
Author Organization [employer] Address [address] [facility] 7t [place] [address] Care Team Providers Care Continuous Drier Operator Name Role Phone Dory Ray MD Primary Care Provide r Encounter Details Date Type Department Care Team ([facility] st Contact Info) Description 11/08/2024 Results Follow-Up [facility] MEDICINE [address] [place] [address] Cailin Iverson, [facility] [address] [place] [address] CT Soft Tissue Neck w/ Contrast Social History Tobacco Use Types Packs/Day Years [...] Access Q2 Not on file 05/16/2024 Comments No Sex and Gender Information Value Date Recorded Sex Assigned at Female 02/01/2022 10:14 AM EDT Legal Sex Female 10:14 AM EDT Gender Identity Female 02/01/2022 10:14 AM EDT Sexual Orientation Choose not to disclose 2021 10:14 AM EDT documented as of this encounter Miscellaneous Notes * Telephone Encounter - Keerthi Felix RN - 11/08/2024 2:19 PM EDT Tc to pt to let them know per covering provider Please let patient know her CT came back normal. It did not show any mass or enlarged lymph node in her neck. I advise she follow up with her PCP if symptoms are persisting. Thanks! . And Correction: Please schedule pt follow up to further investigate or symptoms. Can be with me or PCP in 1 month thanks! . Pt verbalized understanding and requested to have the follow up with their PCP. Pt reports they wont' be able to attend the appt on 12/13/24 and requesting to r/s. Advised pt a message will be sent to [place] to follow up and contact them to r/s.Pt verbalized understanding and message forwarded to Red Team JONY ellis. * Telephone Encounter - Keerthi Felix RN - 11/08/2024 2:19 PM EDT ----- Message from Cailin Iverson sent at 11/08/2024 12:43 PM EDT ----- Please let patient know her CT came back normal. It did not show any mass or enlarged lymph node inher neck. I advise she follow up with her PCP if symptoms are persisting. Thanks! ----- Message ----- From: Temitope Garcia Results In Sent: 11/08/2024 9:18 AM EDT To: Cailin Iverson CNP * Result Encounter Note - Cailin Iverson CNP - 11/08/2024 1:25 PM EDT Correction: Please schedule pt follow up to further investigate or symptoms. Can be with me or PCP in 1 month thanks! * Result Encounter Note - Cailin Iverson CNP - 11/08/2024 12:43 PM EDT Please let patient know her CT came back normal. It did not show any mass or enlarged lymph node inher neck. I advise she follow up with her PCP if symptoms are persisting. Thanks! documented in this encounter Plan of Treatment Upcoming Encounters Date Type Department Care Team (Late st Contact Info) Description 01/09/2025 10:45 AM EDT Office Visit [facility] MEDICINE [address] [place] [address] Dory Ray MD [address] [place] [address] 03/22/2025 10:30 AM EST Office Visit [facility] OPTOMETRY [address] [place] [address] Nathalia Allan OD [address] [place] [address] documented as of this encounter Goals Goal [...] documented as of this encounter Care Teams Continuous Drier Operator Relationship Specialty Start Date End Date Dory Ray MD [address] [place] [address] PCP - General Family Medicine 01/03/19 Jeane Lemons Special Effects DesignerSupervisor Grips 11/09/23 documented as of this encounter
--- OUTSIDE RECORDS SUMMARY | 2024-12-18 10:29 | XMS_ITS | Encounter Summary ---
Author Organization [employer] Address [address] [place] [address] 7 [place] [address] Care Team Providers Care Duck Farmer Name Role Phone Dory Ray MD Primary Care Provide r Le Us Unavailable Reason for Visit * Reason Onset Date Comments Durable Medical Equipment 03/21/2024 Encounter Details Date Type Department Care Team (Late st Contact Info) Description 03/21/2024 Telephone [facility] MEDICINE [address] [place] [address] Dory Ray MD [address] [place] [address] Durable Medical Equipment Social History Tobacco Use [...] of the following? None of the above;Lead [place] or Pipes;Pests such as bugs, ants, or [...] requesting DME for Wipes. Contact pt at [phone] documented in this encounter Plan of Treatment Upcoming Encounters Date Type Department Care Team (Late st Contact Info) Description 01/09/2025 10:45 AM EDT Office Visit [facility] MEDICINE [address] [place] [address] Dory Ray MD 230 [place] [address] 03/22/2025 10:30 AM EST Office Visit [facility] OPTOMETRY [address] [place], [place] [phone] Nathalia Allan OD [address] [place] [address] documented as of this encounter Goals Goal [...] documented as of this encounter Care Teams Duck Farmer Relationship Specialty Start Date End Date Dory Ray MD 230 [place] [address] PCP - General Family Medicine 01/03/19 Le Us 10/30/24 11/05/24 Jeane Lemons Enterprise Services ManagerSupervisor Gear Repair 11/09/23 documented as of this encounter
--- OUTSIDE RECORDS SUMMARY | 2024-12-18 10:29 | XMS_ITS | Clinical Summary ---
Author Organization [facility] Address [address] [facility] [address] [place] [address] Phone Care Team Providers Care Assembler Product Name Role Phone AndrewsJaredRosiclare [facility] Primary Care Provider Unavailable Allergies [...] topic Medical Devices Not on file Insurance [facility] C3 [employer] [facility] [address] [place] [address] [address] [address] C[employer] [place] [address] [place] [address] [address] [place] [address] C3 [employer]CO [facility] C3 ACO Care Teams Assembler Product Relationship Specialty Start Date End Date CenterJesse MD PCP - General 12/24/21 Additional Source Comments The information contained in this document represents components of the legal health record. It is not the complete legal health record.[facility]
--- OUTSIDE RECORDS SUMMARY | 2024-12-18 10:29 | XMS_ITS | Encounter Summary ---
Author Organization [employer] Address [address] [facility] 7t [place] [address] Care Team Providers Care Inspector Assembly Name Role Phone Dory Ray MD Primary Care Provide r Le Us Unavailable Reason for Visit * Reason Comments Med Refill Encounter Details Date Type Department Care Team ([facility] st Contact Info) Description 03/07/2022 Refill [facility] MEDICINE [address] [place] [address] Emilia De La Torre, MARIE [address] [place] [address] Fibromyalgia (Primary Dx) Social History Tobacco Use [...] . Pt stated will be traveling to [place] on 03/10/22. Last seen on 01/20/22. PCP Dr. Garcia documented in this encounter Plan of Treatment Upcoming Encounters Date Type Department Care Team (Late st Contact Info) Description 01/09/2025 10:45 AM EDT Office Visit [facility] MEDICINE [address] [place] [address] Dory Ray MD [address] [place] [address] 03/22/2025 10:30 AM EST Office Visit [facility] OPTOMETRY [address] [place] [address] Nathalia Allan OD [address] [place] [address] documented as of this encounter Visit Diagnoses Diagnosis Fibromyalgia- Primary Unspecified myalgia and myositis documented in this encounter Care Teams Inspector Assembly Relationship Specialty Start Date End Date Dory Ray MD [address] [place] [address] PCP - General Family Medicine 01/03/19 Le Us 10/30/24 11/05/24 Jeane Lemons Student Development DeanType Proof Reproducer 11/09/23 documented as of this encounter
--- OUTSIDE RECORDS SUMMARY | 2024-12-18 10:29 | XMS_ITS | Encounter Summary ---
Author Organization [employer] Address [address] [place] [address] 7 [place] [address] Care Team Providers Care Electrician Machine Shop Name Role Phone Dory Ray MD Primary Care Provide r Le Us Unavailable Reason for Visit * Reason Comments Med Refill Encounter Details Date Type Department Care Team (Late st Contact Info) Description 03/19/2024 Refill [facility] MEDICINE [address] [place] [address] Dory Ray MD [address] [place] [address] Essential hypertension Social History Tobacco Use Types [...] of the following? None of the above;Lead [place] or Pipes;Pests such as bugs, ants, or [...] Description 01/09/2025 10:45 AM EDT Office Visit [facility] MEDICINE [address] [place] [address] Dory Ray MD [address] [place] [address] 03/22/2025 10:30 AM EST Office Visit [facility] OPTOMETRY [address] [place] [address] Nathalia Allan OD 230 [place] [address] documented as of this encounter Goals Goal [...] documented as of this encounter Care Teams Electrician Machine Shop Relationship Specialty Start Date End Date Dory Ray MD [address] [place] [address] PCP - General Family Medicine 01/03/19 Le Us 10/30/24 11/05/24 Jeane Lemons Price AnalystCity Planning Teacher 11/09/23 documented as of this encounter
--- OUTSIDE RECORDS SUMMARY | 2024-12-18 10:29 | XMS_ITS | Encounter Summary ---
Author Organization [employer] Address [address] [facility] 7t [place] [address] Care Team Providers Care Manager Manufacturing Name Role Phone Dory Ray MD Primary Care Provide r Encounter Details Date Type Department Care Team ([facility] st Contact Info) Description 12/13/2024 Orders Only [facility] External Provider, [facility] Social History Tobacco Use Types Packs/Day [...] 10:45 AM EDT Office Visit [facility] MEDICINE [address] [place] [address] Dory Ray MD [address] [place] [address] 03/22/2025 10:30 AM EST Office Visit [facility] OPTOMETRY [address] [place] [address] Jerrell, Nathalia, OD [address] [place] [address] documented as of this encounter Goals Goal Patient Goal Type Associated Problems Recent Progress Patient-Stated? Author Smoking cessation General No change(2023 2:25 PM EDT) No Kiah Cisneros, MichaelD Note: Maintain current progress, smoke 8 cigarettes per day or less. documented as of this encounter Procedures Procedure Name Priority Date/Time Associated Diagnosis Comments [facility] US LOWER EXTREMITY ARTERIAL DUPLEX BILATERAL WITH [place] Routine 12/13/2024 12:40 PM EDT documented in this encounter Results * [facility] US Lower Extremity Arterial Duplex Bilateral With [place] (12/13/2024 12:40 PM EDT) 12/13/2024 12:4 0 PM EDT Narrative [facility] IMAGING - 12/13/2024 2:13 PM EDT [address] [address] Ultrasound Report Signed Patient: Marlene Hicks MR#: [id number] : 1975 Acct:[id number] Age/Sex: 49 / F ADM Date: 12/13/24 Loc: HO.US Attending Dr: Reyes Otero MD Ordering Physician: Reyes Otero MD Date of Service: 12/13/24 Procedure(s): US arterial duplex BI w/ [place] Accession Number(s): [id number] cc: Dory Ray MD; Reyes Otero MD Reason for Exam: I73.9 - Peripheral vascular disease, unspecified EXAMINATION: Noninvasive assessment of the bilateral lower extremities with ARTERIAL DUPLEX, ANKLE BRACHIAL INDICES (ABIs), and PULSE VOLUME RECORDINGS (PVRs). CLINICAL INFORMATION: Peripheral vascular disease. TECHNIQUE: Duplex Doppler techniques with waveform analysis and measurement of velocities in the bilateral common femoral, profunda femoris, superficial femoral, popliteal and tibial arteries were performed. Additionally, ankle pulse volume recordings, ankle pressure measurements and ankle brachial indices were obtained of the lower extremity arterial system bilaterally. The study was performed only at rest. COMPARISON: None FINDINGS: DIRECT DUPLEX DOPPLER FINDINGS: RIGHT LEG: Common femoral artery: 165 cm/s, phasicity: Triphasic. Spectral broadening. Profunda femoris artery: 118 cm/s, phasicity: Monophasic. Spectral broadening. Superficial femoral artery (proximal): 143 cm/s, phasicity: Triphasic. Superficial femoral artery (mid): 131 cm/s, phasicity: Triphasic. Superficial femoral artery (distal): 99 cm/s, phasicity: Triphasic. Popliteal artery: 78 cm/s, phasicity: Triphasic. Posterior tibial artery: 93 cm/s, phasicity: Triphasic. Spectral broadening. Peroneal artery: 48 cm/s, phasicity: Triphasic. Anterior tibial artery: 79 cm/s, phasicity: Triphasic. Spectral broadening. Dorsalis pedis artery: 45 cm/s, phasicity:Biphasic. Spectral broadening. LEFT LEG: Common femoral artery: 176 cm/s, phasicity: Triphasic. Profunda femoris artery: 120 cm/s, phasicity: Monophasic. Spectral broadening. Superficial femoral artery (proximal): 145 cm/s, phasicity: Triphasic. Superficial femoral artery (mid): 151 cm/s, phasicity: Triphasic. Superficial femoral artery (distal): 88 cm/s, phasicity: Triphasic. Popliteal artery: 92 cm/s, phasicity: Triphasic. Spectral broadening. Posterior tibial artery: 76 cm/s, phasicity: Triphasic. Spectral broadening. Peroneal artery: 54 cm/s, phasicity: [Biphasic. Anterior tibial artery: 78 cm/s, phasicity: Triphasic. Spectral broadening. Dorsalis pedis artery: 53 cm/s, phasicity: Triphasic. Spectral broadening. BRACHIAL PRESSURES: Right: 134 Left: 124 ANKLE PRESSURES: Right: PT 141, DP 135 Left: PT 136, DP 133 ANKLE-BRACHIAL INDEX: Right: 1.05 Left: 1.01 ANKLE PVR WAVEFORMS: Right: Normal Left: Normal US/US arterial duplex BI w/ [place] IMPRESSION: Right leg: Disease proximal profundal femoral artery. Mild to moderate inflow disease, dorsalis pedis artery. Left leg: Disease proximal profundal femoral artery. Mild inflow disease, peroneal artery. [place] Reference: - >1.4 = calcified vessels - 0.9 - 1.4 = normal - no significant arterial disease - 0.7 - 0.89 = mild peripheral arterial disease - 0.51 - 0.69 = moderate peripheral arterial disease - 0.50 = severe peripheral arterial disease - < .30 = critical arterial disease Electronically signed by: Luis Enrique Sheriff MD 12/13/2024 02:10 PM EDT Dictated By: Luis Enrique Figueroa MD Signed By: <Electronically signed by Luis Enrique Blankenship MD in OV> 12/13/24 1410 DD/ 1240 TD/TT: 12/13/24 1310 Warp Splitter: Procedure Note Donotuseinterpreter, Image - 12/13/[address] [address] Ultrasound Report Signed Patient: Crissy Hicks#: [id number] : 1975Acct:[id number] Age/Sex: 49 / FADM Date: 12/13/24 Loc: HO.US Attending Dr: Reyes Otero MD Ordering Physician: Reyes Otero MD Date of Service: 12/13/24 Procedure(s): US arterial duplex BI w/ [place] Accession Number(s): [id number] cc: Dory Ray MD; Reyes Otero MD Reason for Exam: I73.9 - Peripheral vascular disease, unspecified EXAMINATION: Noninvasive assessment of the bilateral lower extremities with ARTERIAL DUPLEX, ANKLE BRACHIAL INDICES (ABIs), and PULSE VOLUME RECORDINGS (PVRs). CLINICAL INFORMATION: Peripheral vascular disease. TECHNIQUE: Duplex Doppler techniques with waveform analysis and measurement of velocities in the bilateral common femoral, profunda femoris, superficial femoral, popliteal and tibial arteries were performed. Additionally, ankle pulse volume recordings, ankle pressure measurements and ankle brachial indices were obtained of the lower extremity arterial system bilaterally. The study was performed only at rest. COMPARISON: None FINDINGS: DIRECT DUPLEX DOPPLER FINDINGS: RIGHT LEG: Common femoral artery: 165 cm/s, phasicity: Triphasic. Spectral broadening. Profunda femoris artery: 118 cm/s, phasicity: Monophasic. Spectral broadening. Superficial femoral artery (proximal): 143 cm/s, phasicity: Triphasic. Superficial femoral artery (mid): 131 cm/s, phasicity: Triphasic. Superficial femoral artery (distal): 99 cm/s, phasicity: Triphasic. Popliteal artery: 78 cm/s, phasicity: Triphasic. Posterior tibial artery: 93 cm/s, phasicity: Triphasic. Spectral broadening. Peroneal artery: 48 cm/s, phasicity: Triphasic. Anterior tibial artery: 79 cm/s, phasicity: Triphasic. Spectral broadening. Dorsalis pedis artery: 45 cm/s, phasicity:Biphasic. Spectral broadening. LEFT LEG: Common femoral artery: 176 cm/s, phasicity: Triphasic. Profunda femoris artery: 120 cm/s, phasicity: Monophasic. Spectral broadening. Superficial femoral artery (proximal): 145 cm/s, phasicity: Triphasic. Superficial femoral artery (mid): 151 cm/s, phasicity: Triphasic. Superficial femoral artery (distal): 88 cm/s, phasicity: Triphasic. Popliteal artery: 92 cm/s, phasicity: Triphasic. Spectral broadening. Posterior tibial artery: 76 cm/s, phasicity: Triphasic. Spectral broadening. Peroneal artery: 54 cm/s, phasicity: [Biphasic. Anterior tibial artery: 78 cm/s, phasicity: Triphasic. Spectral broadening. Dorsalis pedis artery: 53 cm/s, phasicity: Triphasic. Spectral broadening. BRACHIAL PRESSURES: Right: 134 Left: 124 ANKLE PRESSURES: Right: PT 141, DP 135 Left: PT 136, DP 133 ANKLE-BRACHIAL INDEX: Right: 1.05 Left: 1.01 ANKLE PVR WAVEFORMS: Right: Normal Left: Normal US/US arterial duplex BI w/ [place] IMPRESSION: Right leg: Disease proximal profundal femoral artery. Mild to moderate inflow disease, dorsalis pedis artery. Left leg: Disease proximal profundal femoral artery. Mild inflow disease, peroneal artery. [place] Reference: - >1.4 = calcified vessels - 0.9 - 1.4 = normal - no significant arterial disease - 0.7 - 0.89 = mild peripheral arterial disease - 0.51 - 0.69 = moderate peripheral arterial disease - 0.50 = severe peripheral arterial disease - < .30 = critical arterial disease Electronically signed by: Luis Enrique Sheriff MD 12/13/2024 02:10 PM EDT Dictated By: Luis Enrique Figueroa MD Signed By: <Electronically signed by Luis Enrique Blankenship MDin OV> 12/13/24 1410 DD/ 1240 TD/TT: 12/13/24 1310 Warp Splitter: us [facility] External Provider CV VASC ULAR PROCEDURES Final Result [facility] IMAGING [address] [place] [address] documented in this encounter Visit Diagnoses Not on filedocumented in this encounter Additional Health Concerns Assessment Noted Time PHQ-9 Depression Total Score: 24 024 9:01 AM EDT documented as of this encounter Care Teams Manager Manufacturing Relationship Specialty Start Date End Date Dory Ray MD [address] [place] [address] PCP - General Family Medicine 01/03/19 Jeane Lemons Glue SpreaderPhp Engineer 11/09/23 documented as of this encounter
--- OUTSIDE RECORDS SUMMARY | 2024-12-18 10:29 | XMS_ITS | Encounter Summary ---
Author Organization [employer] Address [address] [place] [address] 7t [place] [address] Care Team Providers Care Store Cashier Name Role Phone Dory Ray MD Primary Care Provide r Le Us Unavailable Reason for Visit * Reason Comments Med Refill Encounter Details Date Type Department Care Team ([facility] Contact Info) Description 10/06/2022 Refill [facility] MED & PEDS [address] [place], [place] [phone] Dory Ray MD 230 [place], [place] [phone] Chronic pain syndrome Social History Tobacco Use [...] Upcoming Encounters Date Type Department Care Team ([facility] Contact Info) Description 01/09/2025 10:45 AM EDT Office Visit [facility] MEDICINE [address] [place] [address] [phone] Dory Ray MD 230 [place], [place] [phone] 03/22/2025 10:30 AM EST Office Visit [facility] OPTOMETRY [address] [place], [place] [phone] Nathalia Allan, OD 230 [place], [place] [phone] documented as of this encounter Visit Diagnoses Diagnosis Chronic pain syndrome documented in this encounter Additional Health Concerns Assessment Noted Time PHQ-9 Depression Total Score: 21 023 9:24 AM EDT documented as of this encounter Care Teams Store Cashier Relationship Specialty Start Date End Date Dory Ray MD 230 [place], [place] [phone] PCP - General Family Medicine 01/03/19 Le Us 10/30/24 11/05/24 Jeane Lemons Pile Driving SupervisorWire Fence Builder 11/09/23 documented as of this encounter
--- OUTSIDE RECORDS SUMMARY | 2024-12-18 10:29 | XMS_ITS | Encounter Summary ---
Author Organization [employer] Address [address] [place] [address] 7 [place] [address] Care Team Providers Care Benefits Consultant Name Role Phone Dory Ray MD Primary Care Provide r Le Us Unavailable Reason for Visit * Reason Comments Med Refill Encounter Details Date Type Department Care Team (Late st Contact Info) Description 04/08/2024 Refill [facility] MEDICINE 230 [place] [address] Dory Ray MD 230 [place] [address] Chronic right-sided low back pain with right-sided [...] of the following? None of the above;Lead [place] or Pipes;Pests such as bugs, ants, or [...] Description 01/09/2025 10:45 AM EDT Office Visit [facility] MEDICINE 230 [place] [address] Dory Ray MD 230 [place] [address] 03/22/2025 10:30 AM EST Office Visit [facility] OPTOMETRY [address] [place] [address] Nathalia Allan OD 230 [place] [address] documented as of this encounter Goals Goal [...] documented as of this encounter Care Teams Benefits Consultant Relationship Specialty Start Date End Date Dory Ray MD [address] [place] [address] PCP - General Family Medicine 01/03/19 Le Us 10/30/24 11/05/24 Jeane Lemons Hand CoperInformation Clerk Cashier 11/09/23 documented as of this encounter
--- OUTSIDE RECORDS SUMMARY | 2024-12-18 10:29 | XMS_ITS | Encounter Summary ---
Author Organization [employer] Address [address] [place] [address] 7 [place] [address] Care Team Providers Care Patternmaker Name Role Phone Dory Ray MD Primary Care Provide r Le Us Unavailable Reason for Visit * Reason Comments Med Refill Encounter Details Date Type Department Care Team ([facility] st Contact Info) Description 09/06/2024 Refill [facility] MEDICINE 230 [place] [address] Katerine Killian MD 230 [place] [address] Social History Tobacco Use Types Packs/Day Years [...] Description 01/09/2025 10:45 AM EDT Office Visit [facility] MEDICINE 230 [place] [address] Dory Ray MD 230 [place] [address] 03/22/2025 10:30 AM EST Office Visit [facility] OPTOMETRY [address] [place] [address] Nathalia Allan, OD 230 [place] [address] documented as of this encounter Goals Goal [...] documented as of this encounter Care Teams Patternmaker Relationship Specialty Start Date End Date Dory Ray MD 230 [place] [address] PCP - General Family Medicine 01/03/19 Le Us 10/30/24 11/05/24 Jeane Lemons Composite TechnicianLead Etl Developer 11/09/23 documented as of this encounter
--- OUTSIDE RECORDS SUMMARY | 2024-12-18 10:29 | XMS_ITS | Encounter Summary ---
Author Organization [employer] Address [address] [facility] 7t [place] [address] Care Team Providers Care Supervisor Carding Name Role Phone Dory Ray MD Primary Care Provide r Le Us Unavailable Reason for Visit * Reason Comments Med Refill Encounter Details Date Type Department Care Team ([facility] st Contact Info) Description 08/06/2023 Refill [facility] MEDICINE 230 [place] [address] Dory Ray MD 230 [place], [place] [phone] Chronic right-sided low back pain with right-sided [...] Description 01/09/2025 10:45 AM EDT Office Visit [facility] MEDICINE [address] [place] [address] Dory Ray MD 230 [place] [address] 03/22/2025 10:30 AM EST Office Visit [facility] OPTOMETRY [address] [place] [address] Nathalia Allan, OD 230 [place] [address] documented as of this encounter Goals Goal [...] as of this encounter Care Teams Supervisor Carding Relationship Specialty Start Date End Date Dory Ray MD 230 [place] [address] PCP - General Family Medicine 01/03/19 Le Us 10/30/24 11/05/24 Jeane Lemons Loss Prevention ConsultantSmoke And Flame Specialist 11/09/23 documented as of this encounter
--- OUTSIDE RECORDS SUMMARY | 2024-12-18 10:29 | XMS_ITS | Encounter Summary ---
Author Organization [employer] Address [address] [place] [address] 7 [place] [address] Care Team Providers Care Assistant Federal Public Defender Name Role Phone Dory Ray MD Primary Care Provide r Le Us Unavailable Reason for Visit * Reason Comments Med Refill Encounter Details Date Type Department Care Team (Late st Contact Info) Description 09/06/2024 Refill [facility] MEDICINE 230 [place] [address] Dory Ray MD 230 [place] [address] Chronic right-sided low back pain with right-sided sciatica; Generalized anxiety disorder Social History Tobacco Use Types Packs/Day Years [...] AM EDT Office Visit [facility] MEDICINE [address] [place] [address] Dory Ray MD 230 [place] [address] 03/22/2025 10:30 AM EST Office Visit [facility] OPTOMETRY [address] [place] [address] Nathalia Allan, MEDINA 230 [place] [address] documented as of this encounter Goals Goal Patient Goal Type Associated Problems Recent Progress Patient-Stated? Author Smoking cessation General No change(2023 2:25 PM EDT) No Kiah Cisneros, PharmD Note: Maintain current progress, smoke 8 cigarettes per day or less. documented as of this encounter Visit Diagnoses Diagnosis Chronic right-sided low back pain with right-sided sciatica Generalized anxiety disorder documented in this encounter Additional Health Concerns Assessment Noted Time PHQ-9 Depression Total Score: 24 024 9:01 AM EDT documented as of this encounter Care Teams Assistant Federal Public Defender Relationship Specialty Start Date End Date Dory Ray MD [address] [place] [address] PCP - General Family Medicine 01/03/19 Le Us 10/30/24 11/05/24 Jeane Lemons Tissue PackerCostume Draper 11/09/23 documented as of this encounter
--- OUTSIDE RECORDS SUMMARY | 2024-12-18 10:29 | XMS_ITS | Encounter Summary ---
Author Organization [employer] Address [address] [place] [address] 7 [place] [address] Care Team Providers Care Hot Wire Glass Tube Cutter Name Role Phone Dory Ray MD Primary Care Provide r Le Us Unavailable Reason for Visit * Reason Comments Med Refill Encounter Details Date Type Department Care Team ([facility] st Contact Info) Description 08/23/2023 Refill [facility] ADULT DENTAL 230 [place] [address] Dashawn Garcia DDS 230 [place] [address] Social History Tobacco Use Types Packs/Day Years [...] of the following? None of the above;Lead [place] or Pipes;Pests such as bugs, ants, or [...] Description 01/09/2025 10:45 AM EDT Office Visit [facility] MEDICINE 230 [place], [place] [phone] Dory Ray MD 230 [place] [address] 03/22/2025 10:30 AM EST Office Visit [facility] OPTOMETRY [address] [place] [address] Nathalia Allan OD 230 [place] [address] documented as of this encounter Goals Goal [...] documented as of this encounter Care Teams Hot Wire Glass Tube Cutter Relationship Specialty Start Date End Date Dory Ray MD 230 [place] [address] PCP - General Family Medicine 01/03/19 Le Us 10/30/24 11/05/24 Jeane Lemons Mechanical Laboratory TechnicianMedicaid Plan Compliance Director 11/09/23 documented as of this encounter
--- OUTSIDE RECORDS SUMMARY | 2024-12-18 10:29 | XMS_ITS | Encounter Summary ---
Author Organization [employer] Address [address] [place] [address] 7 [place] [address] Care Team Providers Care Store Sales Consultant Name Role Phone Dory Ray MD Primary Care Provide r Le Us Unavailable Reason for Visit * Reason Comments Med Refill Encounter Details Date Type Department Care Team ([facility] Contact Info) Description 08/05/2022 Refill [facility] MEDICINE [address] [place] [address] [phone] Dory Ray MD [address] [place] [address] [phone] Anxiety Social History Tobacco Use Types Packs/Day [...] Upcoming Encounters Date Type Department Care Team ([facility] Contact Info) Description 01/09/2025 10:45 AM EDT Office Visit [facility] [address] [place] [address] [phone] Dory Ray MD 230 [place], [place] [phone] 03/22/2025 10:30 AM EST Office Visit [facility] OPTOMETRY [address] [place], [place] [phone] Nathalia Allan OD 230 [place], [place] [phone] documented as of this encounter Visit Diagnoses Diagnosis Anxiety Anxiety state, unspecified documented in this encounter Care Teams Store Sales Consultant Relationship Specialty Start Date End Date Dory Ray MD 230 [place], [place] [phone] PCP - General Family Medicine 01/03/19 Le Us 10/30/24 11/05/24 Jeane Lemons ButcheretteValve Assembler 11/09/23 documented as of this encounter
--- OUTSIDE RECORDS SUMMARY | 2024-12-18 10:29 | XMS_ITS | Encounter Summary ---
Author Organization [employer] Address [address] [facility] 7t [place] [address] Care Team Providers Care Car Sales Representative Name Role Phone Dory Ray MD Primary Care Provide r Le Us Unavailable Reason for Visit * Reason Comments Med Refill Encounter Details Date Type Department Care Team ([facility] st Contact Info) Description 05/20/2023 Refill [facility] MEDICINE 230 [place] [address] Dory Ray MD 230 [place], [place] [phone] Chronic pain syndrome Social History Tobacco Use [...] Description 01/09/2025 10:45 AM EDT Office Visit [facility] MEDICINE [address] [place] [address] Dory Ray MD 230 [place] [address] 03/22/2025 10:30 AM EST Office Visit [facility] OPTOMETRY [address] [place] [address] Jerrell, Nathalia, OD 230 [place] [address] documented as of this encounter Goals Goal [...] documented as of this encounter Care Teams Car Sales Representative Relationship Specialty Start Date End Date Dory Ray MD [address] [place] [address] PCP - General Family Medicine 01/03/19 Le Us 10/30/24 11/05/24 eJane Lemons Adult Crossing GuardElectrical Design Engineer 11/09/23 documented as of this encounter
--- OUTSIDE RECORDS SUMMARY | 2024-12-18 10:29 | XMS_ITS | Encounter Summary ---
Author Organization [employer] Address [address] [place] [address] 7t [place] [address] Care Team Providers Care Manufacturing Engineering Professor Name Role Phone Dory Ray MD Primary Care Provide r Le Us Unavailable Reason for Visit * Reason Onset Date Comments requesting call back 03/24/2022 Encounter Details Date Type Department Care Team ([facility] st Contact Info) Description 03/24/2022 Telephone [facility] MEDICINE 230 [place] [address] Dory Ray MD 230 [place] [address] requesting call back Social History Tobacco Use [...] Miscellaneous Notes * Telephone Encounter - Abhinav Hickey - 03/24/2022 10:29 AM EST Tc from pt returning call Please contact pt at [phone] documented in this encounter Plan of Treatment Upcoming Encounters Date Type Department Care Team (Late st Contact Info) Description 01/09/2025 10:45 AM EDT Office Visit [facility] MEDICINE 230 [place] [address] Dory Ray MD [address] [place] [address] 03/22/2025 10:30 AM EST Office Visit [facility] OPTOMETRY [address] [place] [address] Nathalia Allan OD 230 [place] [address] documented as of this encounter Visit Diagnoses Not on filedocumented in this encounter Care Teams Manufacturing Engineering Professor Relationship Specialty Start Date End Date Dory Ray MD 230 [place] [address] PCP - General Family Medicine 01/03/19 Le Us 10/30/24 11/05/24 Jeane Lemons Vice President Of ProcurementStrategy Planning Consultant 11/09/23 documented as of this encounter
--- OUTSIDE RECORDS SUMMARY | 2024-12-18 10:29 | XMS_ITS | Encounter Summary ---
Author Organization [employer] Address [address] [place] [address] 7t [place] [address] Care Team Providers Care Co Founder And Director Name Role Phone Dory Ray MD Primary Care Provide r Le Us Unavailable Reason for Visit * Reason Onset Date Comments PA 07/29/2022 Encounter Details Date Type Department Care Team ([facility] st Contact Info) Description 07/29/2022 Telephone [facility] MEDICINE 230 [place] [address] Dory Ray MD 230 [place] [address] PA Social History Tobacco Use Types Packs/Day [...] 10:45 AM EDT Office Visit [facility] MEDICINE [address] [place] [address] Dory Ray MD 230 [place] [address] 03/22/2025 10:30 AM EST Office Visit [facility] OPTOMETRY [address] [place] [address] Nathalia Allan, OD 230 [place] [address] documented as of this encounter Visit Diagnoses Not on filedocumented in this encounter Care Teams Co Founder And Director Relationship Specialty Start Date End Date Dory Ray MD 230 [place] [address] PCP - General Family Medicine 01/03/19 Le Us 10/30/24 11/05/24 Jeane Lemons Plasma Processing Centrifuge OperatorTechnology Architect 11/09/23 documented as of this encounter
--- OUTSIDE RECORDS SUMMARY | 2024-12-18 10:29 | XMS_ITS | Encounter Summary ---
Author Organization [employer] Address [address] [place] [address] 7 [place] [address] Care Team Providers Care Silk Finisher Name Role Phone Dory Ray MD Primary Care Provide r Le Us Unavailable Reason for Visit * Reason Comments Med Refill Encounter Details Date Type Department Care Team (Late st Contact Info) Description 04/10/2024 Refill [facility] MEDICINE 230 [place] [address] Dory Ray MD 230 [place], [place] [phone] Chronic right-sided low back pain with right-sided [...] with others, in a hotel, in a fdc, living outside on the street, on a beach, in a car, or in a park 08/19/[address] you li ve. Do you have problems with any of the following? None of the above;Lead [place] or Pipes;Pests such as bugs, ants, or [...] Description 01/09/2025 10:45 AM EDT Office Visit [facility] MEDICINE [address] [place] [address] Dory Ray MD 230 [place] [address] 03/22/2025 10:30 AM EST Office Visit [facility] OPTOMETRY [address] [place] [address] Nathalia Allan OD 230 [place] [address] documented as of this encounter Goals Goal [...] documented as of this encounter Care Teams Silk Finisher Relationship Specialty Start Date End Date Dory Ray MD [address] [place] [address] PCP - General Family Medicine 01/03/19 Le Us 10/30/24 11/05/24 Jeane Lemons Entry Level BuyerRepair Department Manager 11/09/23 documented as of this encounter
--- OUTSIDE RECORDS SUMMARY | 2024-12-18 10:29 | XMS_ITS | Encounter Summary ---
Author Organization [employer] Address [address] [place] [address] 7 [place] [address] Care Team Providers Care First Assistant Name Role Phone Dory Ray MD Primary Care Provide r Le Us Unavailable Reason for Visit * Reason Comments Med Refill Encounter Details Date Type Department Care Team (Late Contact Info) Description 07/20/2022 Refill [facility]BILE VACCINE CLINIC 230 [place] [address] Eden Cobb MD 230 [place], [place] [phone] Migraine without status migrainosus, not intractable, unspecified [...] Department Care Team (Late Contact Info) Description 01/09/2025 10:45 AM EDT Office Visit [facility] MEDICINE 230 [place], [place] [phone] Dory Ray MD 230 [place], [place] [phone] 03/22/2025 10:30 AM EST Office Visit [facility] OPTOMETRY [address] [place], [place] [phone] Nathalia Allan, MEDINA 230 [place] [address] documented as of this encounter Visit Diagnoses Diagnosis Migraine without status migrainosus, not intractable, unspecified migraine type documented in this encounter Care Teams First Assistant Relationship Specialty Start Date End Date Dory Ray MD 230 [place], [place] [phone] PCP - General Family Medicine 01/03/19 Le Us 10/30/24 11/05/24 Jeane Lemons Paper FeederWork And Family Life Consultant 11/09/23 documented as of this encounter
--- OUTSIDE RECORDS SUMMARY | 2024-12-18 10:29 | XMS_ITS | Encounter Summary ---
Author Organization [employer] Address [address] [place] [address] 7 [place] [address] Care Team Providers Care Ship Runner Name Role Phone Dory Ray MD Primary Care Provide r Le Us Unavailable Reason for Visit * Reason Comments Med Refill Encounter Details Date Type Department Care Team (Late Contact Info) Description 06/22/2022 Refill [facility] MEDICINE [address] [place] [address] NameSoy MD [address] [place] [address] Recurrent major depressive episodes, moderate (CMS/HCC); Migraine [...] Description 01/09/2025 10:45 AM EDT Office Visit [facility] MED[facility]INE [address] [place] [address] [phone] Dory Ray MD 230 [place], [place] [phone] 03/22/2025 10:30 AM EST Office Visit [facility] OPTOMETRY [address] [place], [place] [phone] Nathalia Allan, OD 230 [place] [address] documented as of this encounter Visit Diagnoses Diagnosis Recurrent major depressive episodes, moderate (CMS/HCC) Major depressive disorder, recurrent episode, moderate Migraine without status migrainosus, not intractable, unspecified migraine type documented in this encounter Care Teams Ship Runner Relationship Specialty Start Date End Date Dory Ray MD 230 [place], [place] [phone] PCP - General Family Medicine 01/03/19 Le Us 10/30/24 11/05/24 Jeane Lemons Material AssemblerSenior Embedded Software Engineer 11/09/23 documented as of this encounter
--- OUTSIDE RECORDS SUMMARY | 2024-12-18 10:30 | XMS_ITS | Encounter Summary ---
Author Organization [employer] Address [address] [place] [address] 7 [place] [address] Care Team Providers Care First Assistant Manager Name Role Phone Dory Ray MD Primary Care Provide r Le Us Unavailable Reason for Visit * Reason Comments Med Refill Encounter Details Date Type Department Care Team ([facility] Contact Info) Description 11/26/2022 Refill [facility] MOBILE VACCINE CLINIC [address] [place] [address] NameSoy MD 230 [place] [address] Migraine without status migrainosus, not intractable, unspecified [...] Description 01/09/2025 10:45 AM EDT Office Visit [facility] MEDICINE [address] [place] [address] Dory Ray MD [address] [place], [place] [phone] 03/22/2025 10:30 AM EST Office Visit [facility] OPTOMETRY [address] [place], [place] [phone] Nathalia Allan, MEDINA 230 [place] [address] documented as of this encounter Visit Diagnoses Diagnosis Migraine without status migrainosus, not intractable, unspecified migraine type documented in this encounter Additional Health Concerns Assessment Noted Time PHQ-9 Depression Total Score: 21 023 9:24 AM EDT documented as of this encounter Care Teams First Assistant Manager Relationship Specialty Start Date End Date Dory Ray MD 230 [place], [place] [phone] PCP - General Family Medicine 01/03/19 Le Us 10/30/24 11/05/24 Jeane Lemons Stave And Bolt EqualizerIce Skater 11/09/23 documented as of this encounter
--- OUTSIDE RECORDS SUMMARY | 2024-12-18 10:30 | XMS_ITS | Encounter Summary ---
Author Organization [employer] Address [address] [facility] 7t [place] [address] Care Team Providers Care Hand Ii Cutter Name Role Phone Dory Ray MD Primary Care Provide r Le Us Unavailable Reason for Visit * Reason Comments Med Refill Encounter Details Date Type Department Care Team (Late st Contact Info) Description 12/29/2022 Refill [facility] CH[facility] MED & PEDS [address] [place] [address] Sunshine James, 230 [place] [address] Strain of neck muscle, initial encounter; Neck [...] it when needed. Will forward message to [facility] f/u with pt. documented in this encounter Plan of Treatment Upcoming Encounters Date Type Department Care Team (Late st Contact Info) Description 01/09/2025 10:45 AM EDT Office Visit [facility] MEDICINE 230 [place] [address] Dory Ray MD 230 [place] [address] 03/22/2025 10:30 AM EST Office Visit [facility] OPTOMETRY [address] [place] [address] Nathalia Allan, OD 230 [place] [address] documented as of this encounter Visit Diagnoses Diagnosis Strain of neck muscle, initial encounter Neck pain Cervicalgia documented in this encounter Additional Health Concerns Assessment Noted Time PHQ-9 Depression Total Score: 24 023 9:07 AM EDT documented as of this encounter Care Teams Hand Ii Cutter Relationship Specialty Start Date End Date Dory Ray MD 230 [place] [address] PCP - General Family Medicine 01/03/19 Le Us 10/30/24 11/05/24 Jeane Lemons Derrick Car OperatorNight Worker 11/09/23 documented as of this encounter
--- OUTSIDE RECORDS SUMMARY | 2024-12-18 10:30 | XMS_ITS | Encounter Summary ---
Author Organization [employer] Address [address] [place] [address] 7 [place] [address] Care Team Providers Care Business Planning Analyst Name Role Phone Dory Ray MD Primary Care Provide r Le Us Unavailable Reason for Visit * Reason Comments Med Change Request Encounter Details Date Type Department Care Team ([facility] st Contact Info) Description 08/01/[address] [facility] MEDICINE 230 [place] [address] Dory Ray MD 230 [place] [address] Social History Tobacco Use Types Packs/Day Years [...] the past 12 months, has t he [email or web address], gas, oil or water company threatened to [...] Description 01/09/2025 10:45 AM EDT Office [facility] MEDICINE [address] [place] [address] Dory Ray MD 230 [place] [address] 03/22/2025 10:30 AM EST Office Visit [facility] OPTOMETRY [address] [place] [address] Nathalia Allan, OD 230 [place] [address] documented as of this encounter Goals Goal [...] documented as of this encounter Care Teams Business Planning Analyst Relationship Specialty Start Date End Date Dory Ray MD 230 [place] [address] PCP - General Family Medicine 01/03/19 Le Us 10/30/24 11/05/24 Jeane Lemons Qa Software TesterBone Glue Maker 11/09/23 documented as of this encounter
--- OUTSIDE RECORDS SUMMARY | 2024-12-18 10:30 | XMS_ITS | Encounter Summary ---
Author Organization [email or web address] Address [address] [place] [address] 7 [place] [address] Care Team Providers Care Entry Level Manufacturing Engineer Name Role Phone Dory Ray MD Primary Care Provide r Magen Le Unavailable Reason for Visit * Reason Comments Med Refill Encounter Details Date Type Department Care Team ([facility] Contact Info) Description 12/09/2022 Refill [facility] [address] [place] [address] [phone] Dory Ray MD [address] [place], [place] [phone] Anxiety Social History Tobacco Use Types Packs/Day [...] Upcoming Encounters Date Type Department Care Team ([facility] Contact Info) Description 01/09/2025 10:45 AM EDT Office Visit [facility] [address] [place] [address] [phone] Dory Ray MD [address] [place], [place] [phone] 03/22/2025 10:30 AM EST Office Visit [facility] [address] [place], [place] [phone] Nathalia Allan, MEDINA [address] [place], [place] [phone] documented as of this encounter Visit Diagnoses Diagnosis Anxiety Anxiety state, unspecified documented in this encounter Additional Health Concerns Assessment Noted Time PHQ-9 Depression Total Score: 21 023 9:24 AM EDT documented as of this encounter Care Teams Entry Level Manufacturing Engineer Relationship Specialty Start Date End Date Dory Ray MD [address] [place], [place] [phone] PCP - General Family Medicine 01/03/19 Le Us 10/30/24 11/05/24 Jeane Lemons Medical PsychotherapistUser Experience Team Lead 11/09/23 documented as of this encounter
--- OUTSIDE RECORDS SUMMARY | 2024-12-18 10:30 | XMS_ITS | Encounter Summary ---
Author Organization [employer] Address [address] [facility] 7t [place] [address] Care Team Providers Care Analog Ic Design Engineer Name Role Phone Dory Ray MD Primary Care Provide r Le Us Unavailable Encounter Details Date Type Department Care Team ([facility] st Contact Info) Description 01/12/2023 Abstract [facility] [address] [place], [place] [phone] Dory Ray MD [address] [place], [place] [phone] Social History Tobacco Use Types Packs/Day Years Used Date Smoking Tobacco: Every Day Cigarettes Smokeless Tobacco: Never Alcohol Use Standard Drinks/Week Comments Never 0 (1 standard drink = 0.6 oz pur e alcohol) Depression Answer Date Recorded Patient Health Questionnaire-9 Score 24 12/14/2022 Housing Stability Answer Date Recorded What is your housing situation today? I have danielito jernigan 01/11/[address] you [...] Description 01/09/2025 10:45 AM EDT Office Visit [facility] [address] [place] [address] Dory Ray MD [address] [place] [address] 03/22/2025 10:30 AM EST Office Visit [facility] [address] [place] [address] Jerrell, Nathalia, OD 230 [place] [address] documented as of this encounter Visit Diagnoses Not on filedocumented in this encounter Additional Health Concerns Assessment Noted Time PHQ-9 Depression Total Score: 24 023 9:07 AM EDT documented as of this encounter Care Teams Analog Ic Design Engineer Relationship Specialty Start Date End Date Dory Ray MD [address] [place] [address] PCP - General Family Medicine 01/03/19 Le Us 10/30/24 11/05/24 Jeane Lemons Wood GougerGear Finisher 11/09/23 documented as of this encounter
--- OUTSIDE RECORDS SUMMARY | 2024-12-18 10:30 | XMS_ITS | Encounter Summary ---
Author Organization [employer] Address [address] [place] [address] 7 [place] [address] Care Team Providers Care Stitch Marker Name Role Phone Dory Ray MD Primary Care Provide r Le Us Unavailable Reason for Visit * Reason Onset Date Comments antibiotic 12/09/2022 Encounter Details Date Type Department Care Team ([facility] st Contact Info) Description 12/09/2022 Telephone [facility] [address] [place] [address] Dashawn Garcia DDS [address] [place], [place] [phone] antibiotic Social History Tobacco Use Types Packs/Day [...] after 6 on 12/09 to speak to communications electrician supervisor and nothing was sent to pharmacy communications electrician supervisor side either. Can something be sent to [...] she can call back and speak to communications electrician supervisor Or go to the emergency room. Patient understood DR documented in this encounter Plan of Treatment Upcoming Encounters Date Type Department Care Team (Late st Contact Info) Description 01/09/2025 10:45 AM EDT Office Visit [facility] [address] [place] [address] Dory Ray MD [address] [place] [address] 03/22/2025 10:30 AM EST Office Visit [facility] [address] [place] [address] Jerrell, Nathalia, OD 230 [place] [address] documented as of this encounter Visit Diagnoses Not on filedocumented in this encounter Additional Health Concerns Assessment Noted Time PHQ-9 Depression Total Score: 21 023 9:24 AM EDT documented as of this encounter Care Teams Stitch Marker Relationship Specialty Start Date End Date Dory Ray MD [address] [place] [address] PCP - General Family Medicine 01/03/19 Le Us 10/30/24 11/05/24 Jeane Lemons Solutions SpecialistInfantry Assaultman 11/09/23 documented as of this encounter
--- OUTSIDE RECORDS SUMMARY | 2024-12-18 10:30 | XMS_ITS | Encounter Summary ---
Author Organization [employer] Address [address] [place] [address] 7 [place] [address] Care Team Providers Care Teacher Of The Visually Impaired Name Role Phone Dory Ray MD Primary Care Provide r Le Us Unavailable Reason for Visit * Reason Comments Med Refill Encounter Details Date Type Department Care Team ([facility] st Contact Info) Description 08/17/2024 Refill [facility] [address] [place] [address] Dory Ray MD [address] [place], [place] [phone] Generalized anxiety disorder Social History Tobacco Use [...] the past 12 months, has t he Craft Dragon, gas, oil or water Geotender threatened to shut off services in your [...] Description 01/09/2025 10:45 AM EDT Office Visit [facility] [address] [place] [address] Dory Ray MD [address] [place] [address] 03/22/2025 10:30 AM EST Office Visit [facility] [address] [place] [address] Nathalia Allan, OD 230 [place] [address] documented as of this encounter Goals Goal Patient Goal Type Associated Problems Recent Progress Patient-Stated? Author Smoking cessation General No change(2023 2:25 PM EDT) No Kiah Cisneros, PharmD Note: Maintain current progress, smoke 8 cigarettes per day or less. documented as of this encounter Visit Diagnoses Diagnosis Generalized anxiety disorder documented in this encounter Additional Health Concerns Assessment Noted Time PHQ-9 Depression Total Score: 24 024 9:01 AM EDT documented as of this encounter Care Teams Teacher Of The Visually Impaired Relationship Specialty Start Date End Date Dory Ray MD [address] [place] [address] PCP - General Family Medicine 01/03/19 Le Us 10/30/24 11/05/24 Jeane Lemons Torsion Spring Coiling Machine SetterPackaging Assembler 11/09/23 documented as of this encounter
--- OUTSIDE RECORDS SUMMARY | 2024-12-18 10:30 | XMS_ITS | Encounter Summary ---
Author Organization [employer] Address [address] [place] [address] 7 [place] [address] Care Team Providers Care Criminal Justice Social Worker Name Role Phone Dory Ray MD Primary Care Provide r Le Us Unavailable Reason for Visit * Reason Comments Med Refill Encounter Details Date Type Department Care Team (Late Contact Info) Description 11/16/2022 Refill [facility] [address] [place] [phone] Eden Cobb MD [address] [place] [address] [phone] Anxiety Social History Tobacco Use Types Packs/Day [...] Description 01/09/2025 10:45 AM EDT Office Visit [facility] [address] [place] [address] [phone] Dory Ray MD 230 [place], [place] [phone] 03/22/2025 10:30 AM EST Office Visit [facility] [address] [place], [place] [phone] Nathalia Allan, MEDINA [address] [place] [address] documented as of this encounter Visit Diagnoses Diagnosis Anxiety Anxiety state, unspecified documented in this encounter Additional Health Concerns Assessment Noted Time PHQ-9 Depression Total Score: 21 023 9:24 AM EDT documented as of this encounter Care Teams Criminal Justice Social Worker Relationship Specialty Start Date End Date Dory Ray MD [address] [place], [place] [phone] PCP - General Family Medicine 01/03/19 Le Us 10/30/24 11/05/24 Jeane Lemons Night ManagerMammography Technologist 11/09/23 documented as of this encounter
--- OUTSIDE RECORDS SUMMARY | 2024-12-18 10:30 | XMS_ITS | Encounter Summary ---
Author Organization [employer] Address [address] [facility] 7t [place] [address] Care Team Providers Care Meat And Seafood Clerk Name Role Phone Dory Ray MD Primary Care Provide r Le Us Unavailable Reason for Visit * Reason Comments Med Refill Encounter Details Date Type Department Care Team (Late st Contact Info) Description 07/29/2024 Refill [facility] [address] [place] [address] Katerine Killian MD 230 [place] [address] Chronic right-sided low back pain with right-sided [...] Description 01/09/2025 10:45 AM EDT Office Visit [facility] [address] [place] [address] Dory Ray MD [address] [place] [address] 03/22/2025 10:30 AM EST Office Visit [facility] [address] [place] [address] Nathalia Allan, OD 230 [place] [address] documented as of this encounter Goals Goal [...] documented as of this encounter Care Teams Meat And Seafood Clerk Relationship Specialty Start Date End Date Dory Ray MD 230 [place] [address] PCP - General Family Medicine 01/03/19 Le Us 10/30/24 11/05/24 Jeane Lemons Motor TesterRetail Department Supervisor 11/09/23 documented as of this encounter
--- OUTSIDE RECORDS SUMMARY | 2024-12-18 10:30 | XMS_ITS | Encounter Summary ---
Author Organization [employer] Address [address] [facility] 7t [place] [address] Care Team Providers Care Broker Name Role Phone Dory Ray MD Primary Care Provide r Le Us Unavailable Encounter Details Date Type Department Care Team ([facility] st Contact Info) Description 01/12/2023 Abstract [facility] [address] [place], [place] [phone] Dory Ray MD [address] [place], [place] [phone] Social History Tobacco Use Types Packs/Day Years [...] Description 01/09/2025 10:45 AM EDT Office Visit [facility] 230 [place] [address] Dory Ray MD [address] [place] [address] 03/22/2025 10:30 AM EST Office Visit [facility] [address] [place] [address] Jerrell, Nathalia, OD 230 [place] [address] documented as of this encounter Visit Diagnoses Not on filedocumented in this encounter Additional Health Concerns Assessment Noted Time PHQ-9 Depression Total Score: 24 023 9:07 AM EDT documented as of this encounter Care Teams Broker Relationship Specialty Start Date End Date Dory Ray MD [address] [place] [address] PCP - General Family Medicine 01/03/19 Le Us 10/30/24 11/05/24 Jeane Lemons Supervisor Nut ProcessingTransportation Dispatcher 11/09/23 documented as of this encounter
--- OUTSIDE RECORDS SUMMARY | 2024-12-18 10:30 | XMS_ITS | Clinical Summary ---
Author Organization [address] [facility] Address [address] [place] [address] Phone Care Team Providers Care Sleeping Room Cleaner Name Role Phone Dory Ray MD [...] Name Administration Dates Next Due Hepatitis B (Kvzkwfg-P-Pbkic , Recombivax HB-Adult) 19yo and older 01/18/2007,08/24/2006 [...] Luo OTHER SURGICAL HISTORY 09/25/2020 Left PROCEDURE: [place] NEUROPLASTY &/TRANSPOSITION ULNAR NERVE ELBOW; COMMENT: Submuscular Transposition, Dr. Luo OTHER SURGICAL HISTORY 04/14/2012 Left PROCEDURE: [place] DCMPRN FASCT F/ARM&WRST FLXR/XTNSR W/O DBRDMT; COMMENT: 1st [place] Compartment/[place]ervain's Release, Dr. Luo Medical History [...] Recently Relevant to Health Maintenance Care Teams Sleeping Room Cleaner Relationship Specialty Start Date End Date Dory Ray MD [address] [place] [phone] PCP - General Internal Medicine 12/30/20
--- OUTSIDE RECORDS SUMMARY | 2024-12-18 10:30 | XMS_ITS | Encounter Summary ---
Author Organization [employer] Address [address] [facility] 7t [place] [address] Care Team Providers Care Double End Tenoner Operator Name Role Phone Dory Ray MD Primary Care Provide r Le Us Unavailable Reason for Visit * Reason Comments Med Refill Encounter Details Date Type Department Care Team ([facility] st Contact Info) Description 01/17/2023 Refill [facility] [address] [place] [address] Dory Ray MD [address] [place], [place] [phone] Migraine without status migrainosus, not intractable, unspecified [...] 10:45 AM EDT Office Visit [facility] [address] [place] [address] Dory Ray MD [address] [place] [address] 03/22/2025 10:30 AM EST Office Visit [facility] OPT[facility] [address] [place] [address] Nathalia Allan, OD 230 [place] [address] documented as of this encounter Visit Diagnoses Diagnosis Migraine without status migrainosus, not intractable, unspecified migraine type Chronic right-sided low back pain with right-sided sciatica documented in this encounter Additional Health Concerns Assessment Noted Time PHQ-9 Depression Total Score: 24 023 9:07 AM EDT documented as of this encounter Care Teams Double End Tenoner Operator Relationship Specialty Start Date End Date Dory Ray MD [address] [place] [phone] PCP - General Family Medicine 01/03/19 Le Us 10/30/24 11/05/24 Jeane Lemons Patient Care SpecialistMock Up Maker 11/09/23 documented as of this encounter
--- OUTSIDE RECORDS SUMMARY | 2024-12-18 10:30 | XMS_ITS | Clinical Summary ---
Author Organization [employer] Address [address] [place] [address] [address] [place] [address] Care Team Providers Care Regulation Supervisor Name Role Phone Dory Ray MD [...] FOR WHEEZING 18 g 1 023 Active Additional Information Patient not taking.Reported on 11/01/2024 albuterol (2.5 MG/3ML) 0.083% nebulizer solutionIndicatio ns:Mild intermittent asthma with exacerbation Take 3 mL (2.5 mg) by nebulization every 4 (four) hours if needed for wheezing. 75 mL 11 023 Active Additional Information Patient not taking.Reason: Needs Refill, Reported on 11/01/2024 chlorhexidine (Peridex) 0.12 % solution USE 15 [...] FOR UP TO 15 DAYS. 30 tablet 09/27/2 023 Active Additional Information Patient not taking.Reported on 11/01/2024 Myrbetriq 50 MG 24 hr tablet TAKE 1 TABLET BY MOUTH EVERY DAY Active Elmiron 100 MG capsule TAKE 2 [...] wash off 8-10 hours later 60 g Active Additional Information Patient not taking.Reported on 11/01/2024 diphenhydrAMINE (BENADryl) 25 MG tabletIndications :Rash and nonspecific skin eruption Take 1 tablet (25 mg) by mouth every 6 (six) hours if needed for itching. 30 tablet Active Additional Information Patient not taking.Reported on 11/01/2024 butalbital-acetam inophen-caffeine 50-325-40 MG tabletIndications :Chronic nonintractable headache, unspecified headache type TAKE 1 TABLET BY MOUTH EVERY 4 HOURS 20 tablet 1 Active Diclofenac Sodium 1 % gel Apply 2 g topically if needed in the morning, at noon, in the evening, and at bedtime (pain). 150 g 3 Active budesonide-formot kori (Symbicort) 160-4.5 MCG/ACT inhalerIndication s:Asthma-chronic obstructive pulmonary disease overlap syndrome (CMS/HCC) Inhale 2 puffs in the morning and at bedtime. Rinse mouth with water after use to reduce aftertaste and incidence of candidiasis. Do not swallow. 1 each Active Additional Information Patient not taking.Reason: Needs Refill, Reported on 11/01/2024 SUMAtriptan (Imitrex) 50 MG tabletIndications :Chronic migraine [...] times daily. 50 g 2 Active nicotine polacrilex (Commit) 4 MG lozenge DISSOLVE 1 LOZENGE (4 MG) IN THE MOUTH EVERY 2 (TWO) HOURS IF NEEDED FOR SMOKING CESSATION. 144 lozenge 5 Active Additional Information Patient not taking.Reported on 11/01/2024 hydrOXYzine HCl (Atarax) 25 MG tablet Take 1-2 tablets by mouth if needed in the morning and at bedtime for anxiety (or insomnia). Active QUEtiapine (SEROquel) 25 MG tablet Take 1-2 tablets by mouth if needed at bedtime (insomina). Active ziprasidone (Geodon) 40 MG capsule Take 1 capsule by mouth with breakfast and with evening meal. Active zolpidem (Ambien) 5 MG tablet Take 5 mg by mouth at bedtime. Active LORazepam (Ativan) 0.5 MG tablet Take 1 tablet by mouth if needed in the morning and at bedtime for anxiety (severe anxiety). Active traZODone (Desyrel) 50 MG tabletIndications :Recurrent major depressive episodes, moderate (CMS/HCC) TAKE 1 TABLET BY MOUTH EVERY DAY AT BEDTIME NEEDED FOR SLEEP 90 tablet 1 Active nicotine (Nicoderm, Step 2) 14 MG/24HR patch PLACE 1 PATCH ON THE SKIN 1 TIME EACH DAY AT THE SAME TIME. 42 patch 1 Active Additional Information Patient not taking.Reported on 11/01/2024 topiramate (Topamax) 50 MG tabletIndications :Chronic migraine with aura without status migrainosus, not intractable Take 3 tablets (150 mg) by mouth at bedtime AND 1 tablet (50 mg) Once per day. 120 tablet 1 025 2025 Active loratadine (Claritin) 10 MG tablet TAKE 1 TABLET BY MOUTH EVERY DAY NEEDED FOR ALLERGIES 90 tablet 3 Active gabapentin (Neurontin) 800 MG tabletIndications :Chronic midline thoracic back pain,Chronic bilateral low back pain with bilateral sciatica TAKE 1 TABLET BY MOUTH THREE TIMES DAILY IN THE MORNING, AT NOON, AND AT BEDTIME 90 tablet 1 Active cyclobenzaprine (Flexeril) 10 MG tabletIndications :Chronic midline thoracic back pain,Neck pain TAKE 1 TABLET BY MOUTH THREE TIMES DAILY IN THE MORNING, AT NOON, AND AT BEDTIME NEEDED FOR MUSCLE SPASMS 60 tablet 2 Active famotidine (Pepcid) 20 MG tabletIndications :Gastroesophageal reflux disease, unspecified whether esophagitis present Take 1 tablet (20 mg) by mouth 2 times daily. 60 tablet 2 025 2025 Active amLODIPine (Norvasc) 2.5 MG tablet Take 1 tablet (2.5 mg) by mouth Once per day. 30 tablet 11 025 2025 Active lidocaine (Lidoderm) 5 % patchIndications: Chronic right-sided low back pain with right-sided sciatica APPLY 1 PATCH TOPICALLY ONCE PER DAY. REMOVE & DISCARD PATCH WITHIN 12 HOURS OR DIRECTED BY MD. 30 patch 1 Active mirtazapine (Remeron) 15 MG tabletIndications :Generalized anxiety disorder TAKE 1 TABLET BY MOUTH AT BEDTIME 30 tablet 2 Active hydroCHLOROthiazi de (HYDRODiuril) 25 MG tabletIndications :Essential hypertension Take 1 tablet (25 mg) by mouth Once per day. 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/2024 Dyspnea on exertion 10/04/2024 Assessment & Plan (10/04/2024 4:55 PM EDT): Cardiology referral printed and given to patient I will order an echocardiogram today patient will be contacted with results ED precautions were reviewed with patient GERD (gastroesophageal reflux disease) Assessment & Plan (10/04/2024 4:56 PM EDT): I advise patient to avoid NSAIDs, spicy and acid food, I advise to eat at the same time every day, I advise to elevate the head of the bed and take medications as prescribe Left hip pain 10/04/2024 Assessment & Plan (10/04/2024 4:57 PM EDT): X-ray of the hip ordered today patient will be contacted with results She may take acetaminophen as needed Bilateral lower extremity edema 10/04/2024 Dizziness 10/04/2024 Assessment & Plan (10/04/2024 4:58 PM EDT): Advised to maintain hydration and avoid the heat Today hemoglobin done at the office is 12.5 blood sugars are 96 I let patient know this numbers are normal, vitals were repeated including orthostatics which were negative Choking sensation 08/31/2024 Assessment & Plan (08/31/2024 10:39 AM EDT): Barium swallow test ordered patient will be contacted with results Diazepam adverse reaction 05/15/2024 Assessment & Plan (05/15/2024 4:26 PM EST): Now is completely resolved it was advised to avoid this medication in the future Chronic migraine with aura w ithout status [...] PRN Indication: bulging lumbar disc, fibromyalgia Last KNIFE SHARPENER Agreement: 03/13/24 Additional considerations/risk factors: BZO Tier II (KNIFE SHARPENER visits Q3 months) - last evaluated Mar 2024 by PCP Assessment & Plan (07/10/2024 2:24 PM EDT): Timeline: - 07/10/24: Group - utox/pill count as expected. Interested consideration of non- opioid pain med. Long-term current use of benzodiazepine 12/13/19 Asymptomatic microscopic hematuria 12/01/2023 Assessment & Plan (12/01/2023 12:33 PM EDT): Continue to follow with urology Abnormal uterine bleeding (AUB) 08/26/2023 Acute right flank pain 08/26/2023 Strain of gastrocnemius tendon of right lower ex tremity 08/26/2023 Abdominal pain 08/26/2023 Assessment & Plan (02/28/2024 4:34 PM EST): C/w current interventions I advise to contact GI office to set up her appointment Bladder pain 08/26/2023 Rash and nonspecific skin eruption 07/15/2023 Bulging lumbar disc 06/14/2023 Assessment & Plan [...] and non-pharm modalities Continues with COT. See hydrographer for urine/pill count. Assessment & Plan (01/10/2024 [...] 10:00 AM EST): Weight reduction was advise Chronic midline thoracic back pain 02/21/2023 Assessment & Plan (08/15/2024 12:42 PM EDT): Tramadol discontinue but she will continue on gabapentin Assessment & Plan (08/30/2023 10:06 AM EDT): [...] incontinence of urine 12/14/2022 Assessment & Plan (08/31/2024 10:39 AM EDT): Wipes will be prescribe for patient Assessment & Plan (12/14/2022 4:24 PM EDT): Urine pads are prescribe today Colon cancer screening 12/14/2022 Interstitial cystitis 11/10/2022 Neck pain 08/12/2022 Assessment & Plan (08/30/2023 10:05 AM EDT): Apply heat on affected area Acetaminophen PRN Flexeril 10mg Q 8hrs (patient knows abut side effects) Lidocaine patch Vascular insufficiency 03/04/2022 Assessment & Plan (10/04/2024 4:55 PM EDT): I advise elevation of legs at the end of the day Patient does not tolerate compression stockings I decided to refer her to vascular Asthma-chronic obstructive p ulmonary disease overlap syndrome 03/04/2022 Assessment & Plan (08/15/2024 12:43 PM EDT): For now under control patient educated to avoid triggers continue with Symbicort and albuterol as needed Heartburn 03/04/2022 Chronic pain of left knee 03/04/2022 Costal chondritis 03/04/2022 Polyp of corpus uteri 03/04/2022 Palpitations 03/04/2022 Assessment & Plan (10/04/2024 4:55 PM EDT): TSH recently checked Cardiology referral printed for patient Assessment & Plan (08/31/2024 10:38 AM EDT): TSH ordered today Cardiology referral Essential hypertension 03/04/2022 Assessment & Plan (10/04/2024 4:55 PM EDT): Today blood pressure is mildly elevated as well as heart rate I advised low-sodium diet and I decided to go up on her blood pressure medication hydrochlorothiazide 50 mg instead of 25 mg daily Assessment & Plan (08/15/2024 12:41 PM EDT): Blood pressure seems to be under control I advised to continue with low-sodium diet and take her medications every day as prescribed Assessment & Plan (05/15/2024 4:28 PM EST): [...] of exercise weekly -ED/urgent care precautions reviewed Anxiety 02/11/2017 Assessment & Plan (12/14/2022 4:23 PM EDT): Continue to follow with therapist Patient reports she takes lorazepam once a day she does not understand why is not on the urine For now I will continue to prescribe lorazepam Chronic low back pain 08/25/2016 Assessment & Plan (08/15/2024 12:42 PM EDT): Tramadol was discontinued Continue with gabapentin 800 mg every 8 hours Assessment & Plan (01/10/2024 1:51 PM EDT): [...] chronic, left 02/10/2016 Generalized anxiety disorder 12/11/2015 Assessment & Plan (08/15/2024 12:42 PM EDT): I will go down on her mirtazapine to 15 mg continue to follow with psychiatrist and therapist Recurrent major depressive episodes, moderate Assessment & [...] Marlene agrees to go in person to [facility] to follow up on status of a therapist. She also agrees to follow up in 2 weeks via telehealth for support. She agrees to come in person if needed, to sign a release for me to speak with [facility]. I also recommended acupuncture and discussed sleep hygiene. PHQ9: 17 GAD7: 17 Paresthesia of foot, bilateral 11/03/2015 Pulmonary nodule 08/11/2015 Fibromyalgia 05/13/2015 Assessment & Plan (10/04/2024 4:56 PM EDT): Counseling done Advised acetaminophen as needed Female dyspareunia 05/13/2015 Tobacco use 05/13/2015 Anemia 11/04/2011 Mixed anxiety and depressive disorder 11/04/2011 Assessment & Plan (01/10/2024 1:53 PM EDT): Patient has upcoming psychiatrist appointment on 02/2024 I will increase for now hydroxyzine to 50mg BID C/w rest of mental health medications Carpal tunnel syndrome 01/02/2009 Resolved Problems Problem Noted Date Diagnosed Date Resolved Date Vaginal discharge 02/28/2024 08/31/2024 Assessment & Plan (02/28/2024 4:36 PM EST): BV panel ordered I will treat empirically with Metrogel Patient will be contacted with results Dysuria 12/01/2023 08/31/2024 Acute maxillary sinusitis 12/01/2023 Tooth infection 08/30/2023 08/31/2024 Hematuria 08/26/2023 08/31/2024 Mouth pain 08/26/2023 08/31/2024 Toothache 08/26/2023 08/31/2024 Vulvovaginitis 08/26/2023 08/31/2024 Urinary frequency 08/26/2023 08/31/2024 Chronic nonintractable headache 07/15/2023 08/31/2024 Encounter for preventive health examination 07/15/2023 08/31/2024 Assessment & Plan (07/15/2023 2:41 PM EDT): See HPI Infected tooth 03/24/2023 07/14/2023 Oral thrush 03/24/2023 07/14/2023 Assessment & Plan (05/31/2023 9:59 AM EST): Nystatin and clotrimazole chewable tablets already prescribed, I will prescribed today fluconazole 200mg for 14 days Smoking 03/24/2023 08/31/2024 Bilateral lower extremity pain 02/21/2023 08/31/2024 Assessment & Plan (02/21/2023 9:46 AM EST): Clinical picture consistent with neuropathy or fibromlagia Acute right ankle pain 01/11/202307/13 Urinary frequency 01/11/2023 07/14/2023 Dental caries 12/07/2022 07/14/2023 Chest discomfort 04/06/2022 08/31/2024 Assessment & Plan (04/06/2022 2:38 PM EST): Likely costochondritis. Recommend ibuprofen prn pain, warm compress, rest. COVID and flu rapid are negative. EKG without evidence of ischemia or infarction. ER precautions discussed. Fibromyositis 03/29/2022 03/29/2022 Chronic bronchitis 03/04/2022 Upper respiratory infection 03/04/2022 03/29/2022 UTI symptoms 03/04/2022 08/31/2024 Assessment & Plan (02/28/2024 4:36 PM EST): UA and culture Chest pain 01/18/2018 03/29/2022 Migraine 01/18/2018 03/29/2022 Pain in female pelvis 08/04/20172024 Wheezing 08/13/2016 03/29/2022 Hand pain 05/13/2015 08/31/2024 Headache 11/04/2011 08/31/2024 Encounters Date Type Department Care Team Description 12/13/2024 Orders Only [facility] External Provider, [facility] 12/02/2024 Refill [facility] [address] [place] [address] Dory Ray MD Chronic right-sided low back pain with right-sided sciatica 11/26/2024 Refill [facility] [address] [place] [address] Dory Ray MD Essential hypertension 11/14/2024 Results Follow-Up [facility] [address] [place] [address] Dory Ray MD [place] Esophagus Barium Swallow 11/10/2024 Refill [facility] [address] [place] [address] Dory Ray MD Generalized anxiety disorder 11/08/2024 Telephone [facility] [address] [place] [address] Dory Ray MD Appointment Request 11/08/2024 Results Follow-Up [facility] [address] [place] [address] Soft Tissue Neck w/ Contrast 11/06/2024 Refill [facility] [address] [place] [address] Dory Ray MD Chronic right-sided low back pain with right-sided sciatica 11/05/2024 Patient Outreach [facility] [address] [place] [address] Dory Ray MD Care Coordination (Communication to PT assigned CP Coordinator ) 11/02/2024 Telephone [facility] [address] [place] [address] Cailin Iverson CNP 11/01/2024 1:00 PM EDT Office Visit [address] [address] Cailin Iverson CNP Folliculitis (Primary Dx); Neck mass 11/01/2024 Travel 10/30/2024 Patient Outreach [facility] [address] [place] [address] Dory Ray MD Care Coordination ([facility] ED F/U) 10/30/2024 Patient Outreach [facility] [address] [place] [phone] Dory Ray MD Care Coordination ([facility] C3/Chart review) 10/30/2024 Patient Outreach [address] [address] Dory Ray MD 10/30/[address] [address] Dory Ray MD Chronic right-sided low back pain with right-sided sciatica 10/29/2024 Orders Only GENERIC EXTERNAL DATA DEPARTMENT Provider, Generic External Data 10/17/2024 Results Follow-Up [address] [address] Dory Ray MD XR Hip 2 or 3 Views Left 10/16/2024 Results Follow-Up [facility] [address] [place], [place] [phone] Amber Orozco MD POCT urinalysis dipstick manually resulted, Bacterial Vaginosis Panel, Culture, Urine, Routine 10/16/[address] [address] Dory Ray MD Nurse Triage 10/09/2024 4:00 PM EDT Office Visit [facility] [address] [place] [phone] Amber Orozco MD Vaginal discharge (Primary Dx); Essential hypertension 10/09/2024 Travel 10/09/2024 Telephone [facility] [address] [place] [phone] Dory Ray MD Nurse Triage 10/05/2024 Orders Only GENERIC EXTERNAL DATA DEPARTMENT Provider, Generic External Data 10/04/2024 2:30 PM EDT Office Visit [facility] [address] [place] [address] Dory Ray MD Dizziness; Palpitations; Dyspnea on exertion; Fibromyalgia; Gastroesophageal reflux disease, unspecified whether esophagitis present; Essential hypertension; Left hip pain; Vascular insufficiency 10/04/[address] [address] Dory Ray MD Essential hypertension 10/04/2024 Travel 10/02/2024 Refill [facility] [address] [place] [address] Dory Ray MD Chronic right-sided low back pain with right-sided sciatica 10/02/[address] [address] Dory Ray MD Nurse Triage from Last 3 Months Immunizations Immunization Administration Dates Next Due Hep B, adult [...] Sign Reading Time Taken Comments Blood Pressure 122/78 11/01/2024 1:04 PM EDT Pulse 88 11/01/2024 1:04 PM EDT Temperature 36.8 C (98.2 F) 11/01/2024 1:04 PM EDT Respiratory Rate 12 11/01/2024 1:04 PM EDT Oxygen Saturation 99% 11/01/2024 1:04 PM EDT Inhaled Oxygen Concentration - - Weight 74.1 kg (163 lb 6 oz) 11/01/2024 1:04 PM EDT Height 165.1 cm (5' 5 ) 11/01/2024 1:04 PM EDT Body Mass Index 27.19 11/01/2024 1:04 PM EDT Plan of Treatment Upcoming Encounters Date Type Department Care Team (Late st Contact Info) Description 01/09/2025 10:45 AM EDT Office Visit [facility] [address] [place] [address] Dory Ray MD [address] [place] [address] 03/22/2025 10:30 AM EST Office Visit [facility] [address] [place] [address] Nathalia Allan, OD [address] [place] [address] Health Maintenance Due Date Last Done Comments CT Colonography 1975 Colonoscopy 1975 Dental Prophylaxis 1975 Dental X-Ray: Full Mouth 1973 FIT 1975 Sigmoidoscopy 1975 Disability Screening 1975 Family Planning (PISQ) 1988 Hepatitis B Vaccines (3 of 3 - 19+ 3-dose series) 03/15/2007 01/18/2007, 08/24/2006 Dental Oral Exam 01/23/2017 07/23/2016, 01/17/2015 Dental X-Ray: Bitewings 10/15/2019 10/13/2018 FOBT 12/28/2023 12/27/2022 Depression Monitoring 07/10/2024 01/10/2024, 024 COVID-19 Vaccine ( season) 2024 01/04/2023, 05/17/2022, 04/05/2021, Additional history exists Alcohol/Substance Use Screening 02/27/2025 02/28/2024 SDOH Screening 05/16/2025 05/16/2024 Mammogram 06/27/2025 06/27/2024, 01/0 09/2024, 05/28/2023, Additional history exists Tobacco Screening 11/01/2025 11/01/2024 Colorectal Cancer Screening 12/27/2025 FIT DNA/Cologuard 12/27/2025 12/27/2022 Pap Smear 02/21/2026 02/21/2023, 02/17/2017 Lipid Panel 06/15/2028 06/16/2023, 07/0 09/2021, 01/28/2021 Cervical Cancer Screening 07/18/2028 HPV/Cotest 07/18/2028 07/19/2023, 02/21/2023 DTaP/Tdap/Td Vaccines (3 - Td or Tdap) 07/14/2033 07/15/2023, 12/10/2011 RSV Patients and Patients Aged 60 years or older (1 - 1-dose 75+ series) 2048 Pneumococcal Vaccine: 50+ Years Completed 09/05/2022, 03/07/2019, 04/17/2014 HIV Screening Completed 06/26/2024 Hepatitis C Screening Completed 06/26/2024 Zoster Vaccines Completed 07/12/2024, 03/13/2024 Influenza Vaccine Completed 12/05/2024, , 01/08/2022, Additional history exists HIB Vaccines Aged Out [...] Procedure Name Priority Date/Time Associated Diagnosis Comments VAS US LOWER EXTREMITY ARTERIAL DUPLEX BILATERAL WITH [place] Routine 12/13/2024 12:40 PM EDT FL ESOPHAGUS BARIUM SWALLOW Routine 11/14/2024 8:30 AM EDT Choking sensation CT SOFT TISSUE NECK W CONTRAST Urgent 11/08/2024 8:49 AM EDT Neck mass POCT RAPID STREP A Routine 11/01/2024 1: 32 PM EDT Folliculitis POCT INFLUENZA B Routine 11/01/2024 1:32 PM EDT Folliculitis POCT INFLUENZA A Routine 11/01/2024 1:32 PM EDT Folliculitis POCT RAPID COVID ANTIGEN Routine 11/01/2024 1:32 PM EDT Folliculitis COMPREHENSIVE METABOLIC PANEL Routine 10/29/2024 11:49 AM EDT CBC WITH AUTO DIFFERENTIAL Routine 10/29/2024 11:49 AM EDT BASIC METABOLIC PANEL Routine 10/17/2024 8:23 AM EDT Essential hypertension XR HIP 2 OR 3 VIEWS LEFT Routine 10/17/2024 8:06 AM EDT Left hip pain POCT URINALYSIS DIPSTICK Routine 10/09/2024 4:20 PM EDT Vaginal discharge CULTURE, URINE, ROUTINE Routine 10/09/2024 4:16 PM EDT Vaginal discharge BACTERIAL VAGINOSIS PANEL Routine 10/09/2024 4:16 PM EDT Vaginal discharge XR CHEST 2 VIEWS Routine 10/05/2024 9:[address] HEAD WO CONTRAST Routine 10/05/2024 8 :55 PM EDT TSH W/REFLEX TO FT4 Routine 10/05/2024 8 :25 PM EDT HIGH SENSITIVITY TROPONIN I Routine 10/05/2024 8:25 PM EDT B TYPE NATRIURETIC PEPTIDE (BNP) Routine 10/05/2024 8:25 PM EDT MAGNESIUM Routine 10/05/2024 8:25 PM EDT BASIC METABOLIC PANEL Routine 10/05/2024 8:25 PM EDT HEPATIC FUNCTION PANEL Routine 10/05/2024 8:25 PM EDT CBC WITH AUTO DIFFERENTIAL Routine 10/05/2024 8:25 PM EDT SARS COV2/INFLUENZA A/B AND RSV RNA QL NAAT Routine 10/05/2024 8:25 PM EDT POCT HEMOGLOBIN Routine 10/04/2024 1:39 PM EDT Dizziness POCT GLUCOSE Routine 10/04/2024 1:38 PM EDT Dizziness BI MAMMOGRAM SCREENING TOMOSYNTHESIS BILATERAL Routine 06/27/2024 11:45 AM EDT HEPATITIS C ANTIBODY Routine 06/26/2024 9:38 AM EDT HIV 1/2 ANTIGEN/ANTIBODY, FOURTH GENERATION W/RFL Routine 06/26/2024 9:38 AM EDT HPV MRNA E6/E7 REFLEX TO HPV 16, 18/45 Routine 07/19/2023 9:21 AM EDT LIPID PANEL, STANDARD Routine 06/16/2023 10:01 AM EDT Essential hypertension PAP SMEAR Routine 02/21/2023 2:25 PM EST LAB COLOGUARD COLON CANCER SCREEN Routine 12/27/2022 9:47 AM EDT Colon cancer screening BITEWING - SINGLE RADIOGRAPHIC IMAGE Routine 10/13/2018 12:00 AM EDT PERIODIC ORAL EVALUATION - ESTABLISHED PATIENT Routine 07/23/2016 12:00 AM EDT from Last 3 Months or Most Recently Relevant to Health Maintenance Results * VASC US Lower Extremity Arterial Duplex Bilateral With [place] (12/13/2024 12:40 PM EDT) 12/13/2024 12:4 0 PM EDT Narrative [facility] - 12/13/2024 2:13 PM EDT [place] [address] Ultrasound Report Signed Patient: Marlene Hicks MR#: [id number] : 1975 Acct:[id number] Age/Sex: 49 / F ADM Date: 12/13/24 Loc: HO.US Attending Dr: Reyes Otero MD Ordering Physician: Reyes Otero MD Date of Service: 12/13/24 Procedure(s): US arterial duplex BI w/ [place] Accession Number(s): [id number] cc: Dory Ray MD; Reyes Otero MD [...] Enrique Sheriff MD 12/13/2024 02:10 PM EDT RP Dictated By: Luis Enrique Figueroa MD Signed By: <Electronically signed by Luis Enrique Blankenship MD in OV> 12/13/24 1410 DD/ 1240 TD/TT: 12/13/24 1310 Swine Extension Field Specialist: Procedure Note Donotuseinterpreter, Image - 12/13/2024 [place] [address] Ultrasound Report Signed Patient: Crissy Hicks#: [id number] : 1975Acct:[id number] Age/Sex: 49 / FADM Date: 12/13/24 Loc: . Attending Dr: Reyes Otero MD Ordering Physician: Reyes Otero MD Date of Service: 12/13/24 Procedure(s): US arterial duplex BI w/ [place] Accession Number(s): [id number] cc: Dory Ray MD; Reyes Otero MD [...] Enrique Sheriff MD 12/13/2024 02:10 PM EDT RP Dictated By: Luis Enrique Figueroa MD Signed By: <Electronically signed by Luis Enrique Blankenship MDin OV> 12/13/24 1410 DD/ 1240 TD/TT: 12/13/24 1310 Swine Extension Field Specialist: [facility] External Provider CV VASC ULAR PROCEDURES Final Result Performing Organization Address City/State/[facility] Co de Phone Number [facility] [address] [place] [address] * [place] Esophagus Barium Swallow (11/14/2024 8:30 AM EDT) Anatomical Region Laterality Modality Head, Neck Radiographic [place] 11/14/2024 8:30 AM EDT Narrative 11/14/2024 9:39 AM EDT [address] [address] Fluoroscopy Report Signed Patient: Marlene Hicks MR#: [id number] : 1975 Acct:[id number] Age/Sex: 49 / F ADM Date: 11/14/24 Loc: [facility] Attending Dr: Dory Wen MD Ordering Physician: Dory Ray MD Date of Service: 11/14/24 Procedure(s): FL barium swallow Accession Number(s): [id number] cc: Dory Ray MD EXAMINATION: XR BARIUM SWALLOW CLINICAL INFORMATION: Difficulty swallowing solids. COMPARISON: None available. TECHNIQUE: Routine barium swallow was performed following oral administration of thick barium and barium coated saltine crackers in upright view and thin barium in prone lying position. FINDINGS: Following oral administration of thin barium in different positions there is normal propagation bolus from the oral cavity through the pharynx, esophagus into stomach without obstruction, narrowing or stricture. No laryngeal penetration or aspiration seen. On oral administration of saltine crackers coated with barium paste there is normal oral mastication and propagation of bolus from the oral cavity through the pharynx, esophagus into stomach. There is slightly diminished peristalsis in the distal esophagus with evidence of tertiary peristalsis. On oral administration of thin barium in prone lying position there is normal esophageal distention and propagation of bolus from the oral cavity through the esophagus into stomach. There is no extrinsic compression. No evidence of gastroesophageal reflux except for a small sliding hiatal hernia in supine position. FLUOROSCOPY TIME: 2.08 minutes DOSE AREA PRODUCT: 1521 uGy-m2 (microgray-meter squared) FL/FL barium swallow IMPRESSION: Small sliding hiatal hernia without reflux. 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 Electronically signed by: Mendez Calle MD 11/14/2024 09:36 AM EDT RP Dictated By: Mendez Calle MD Signed By: <Electronically signed by Mendez Calle MD in OV> 11/14/24 0936 DD/ 0830 TD/TT: 11/14/24 0845 Swine Extension Field Specialist: [facility] [place] Donotuseinterpreter, Image - 11/14/[address] [address] Fluoroscopy Report Signed Patient: Crissy Hicks#: [id number] : 1975Acct:[id number] Age/Sex: 49 / FADM Date: 11/14/24 Loc: HO.XRAY Attending Dr: Dory Wen MD Ordering Physician: Dory Ray MD Date of Service: 11/14/24 Procedure(s): FL barium swallow Accession Number(s): [id number] cc: Dory Ray MD EXAMINATION: XR BARIUM SWALLOW CLINICAL INFORMATION: Difficulty swallowing solids. COMPARISON: None available. TECHNIQUE: Routine barium swallow was performed following oral administration of thick barium and barium coated saltine crackers in upright view and thin barium in prone lying position. FINDINGS: Following oral administration of thin barium in different positions there is normal propagation bolus from the oral cavity through the pharynx, esophagus into stomach without obstruction, narrowing or stricture. No laryngeal penetration or aspiration seen. On oral administration of saltine crackers coated with barium paste there is normal oral mastication and propagation of bolus from the oral cavity through the pharynx, esophagus into stomach. There is slightly diminished peristalsis in the distal esophagus with evidence of tertiary peristalsis. On oral administration of thin barium in prone lying position there is normal esophageal distention and propagation of bolus from the oral cavity through the esophagus into stomach. There is no extrinsic compression. No evidence of gastroesophageal reflux except for a small sliding hiatal hernia in supine position. FLUOROSCOPY TIME: 2.08 minutes DOSE AREA PRODUCT: 1521 uGy-m2 (microgray-meter squared) FL/FL barium swallow IMPRESSION: Small sliding hiatal hernia without reflux. 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 Electronically signed by: Mendez Calle MD 11/14/2024 09:36 AM EDT Dictated By: Mendez Calle MD Signed By: <Electronically signed by Mendez Calle MD in OV> 11/14/24 0936 DD/ 0830 TD/TT: 11/14/24 0845 Swine Extension Field Specialist: [facility] [place] Dory Wen MD IMG FLUOROSCOPY PROCE DURES Final Result * CT Soft Tissue Neck w/ Contrast (11/08/2024 8:49 AM EDT) Anatomical Region Laterality Modality Head, Neck Computed Tomogra phy 11/08/2024 8:49 AM EDT Narrative 11/08/2024 9:18 AM EDT [address] [address] [address] Scan Report Signed Patient: Marlene Hicks MR#: [id number] : 1975 Acct:[id number] Age/Sex: 49 / F ADM Date: 11/08/24 Loc: HO.CT Attending Dr: Cailin Iverson SHOPPER Ordering Physician: Cailin Iverson Date of Service: 11/08/24 Procedure(s): CT soft tissue neck w IV con Accession Number(s): [id number] cc: Dory Ray MD; Cailin Iverson Report Number: [id number]: Total DLP = 216.00 mGy-cm EXAMINATION: CT SOFT TISSUE NECK WITH CONTRAST CLINICAL INFORMATION: 6 cm neck mass versus lymph node on anterolateral neck. COMPARISON: None available. TECHNIQUE: Following the intravenous administration of 60 mL of Omnipaque 350 intravenous contrast, helical imaging was performed in the axial plane with generation of coronal and sagittal reformatted images. This CT examination was performed using dose optimization techniques as appropriate, variously including the following: *Automated exposure control *Adjustment of mA and/or kV according to patient size (this includes techniques or standardized protocols for targeted exams where dose is matched to indication/reason for exam; i.e. extremities or head) *Use of iterative reconstruction technique FINDINGS: Lymph Nodes: -Normal. No abnormal lymphadenopathy. Carotid Sheath Structures: -Normal. Internal jugular veins are patent. Salivary Glands: -Mild fatty change of the parotid glands. No lesions. -Sublingual glands and submandibular glands are normal. Tongue Base/Floor of Mouth: -Normal Mucosal Space: -Normal. No lesions. -Epiglottis and aryepiglottic folds are normal. Visceral Space: -Thyroid gland: Normal. -Larynx and true vocal cords are normal. -Cervical esophagus is normal. -Subglottic trachea is normal. Retropharangeal Space: -Normal. Parapharyngeal Fat Planes: -Normal and undisturbed. Chemical Engineer Spaces: -Normal. Anterior Cervical Space: -Normal. No mass is appreciated. Imaged Intracranial Contents: -No mass effect, edema, or abnormal enhancement. Cortical and dural venous sinuses are patent. The skull base is normal. Globes and Orbits: -Normal. Paranasal Sinuses/Mastoids/Tympanic Spaces: -Normally aerated bilaterally. Lung Apices and Superior Mediastinal Structures: -Imaged lung apices are clear and superior mediastinal structures are normal. Bony Structures: -No suspicious bone lesions. No fractures. -Normal TM joints. -The maxilla is edentulous. CT/CT soft tissue neck w IV con IMPRESSION: 1. No mass or abnormal lymphadenopathy within the neck. Electronically signed by: Michael Dhillon MD 11/08/2024 09:14 AM EDT Dictated By: Michael Dhillon MD Signed By: <Electronically signed by Michael Dhillon MD in OV> 11/08/24913 DD/ 8 TD/TT: 11/08/24 09 Swine Extension Field Specialist: Procedure Note Donotuseinterpreter, Image - 11/08/[address] [address] [address] Scan Report Signed Patient: Crissy Hicks#: [id number] : 1975Acct:[id number] Age/Sex: 49 / FADM Date: 11/08/24 Loc: HO.CT Attending Dr: Cailin Iverson SHOPPER Ordering Physician: Cailin Iverson Date of Service: 11/08/24 Procedure(s): CT soft tissue neck w IV con Accession Number(s): [id number] cc: Dory Ray MD; Cailin Iverson Report Number: [id number]: Total DLP = 216.00 mGy-cm EXAMINATION: CT SOFT TISSUE NECK WITH CONTRAST CLINICAL INFORMATION: 6 cm neck mass versus lymph node on anterolateral neck. COMPARISON: None available. TECHNIQUE: Following the intravenous administration of 60 mL of Omnipaque 350 intravenous contrast, helical imaging was performed in the axial plane with generation of coronal and sagittal reformatted images. This CT examination was performed using dose optimization techniques as appropriate, variously including the following: *Automated exposure control *Adjustment of mA and/or kV according to patient size (this includes techniques or standardized protocols for targeted exams where dose is matched to indication/reason for exam; i.e. extremities or head) *Use of iterative reconstruction technique FINDINGS: Lymph Nodes: -Normal. No abnormal lymphadenopathy. Carotid Sheath Structures: -Normal. Internal jugular veins are patent. Salivary Glands: -Mild fatty change of the parotid glands. No lesions. -Sublingual glands and submandibular glands are normal. Tongue Base/Floor of Mouth: -Normal Mucosal Space: -Normal. No lesions. -Epiglottis and aryepiglottic folds are normal. Visceral Space: -Thyroid gland: Normal. -Larynx and true vocal cords are normal. -Cervical esophagus is normal. -Subglottic trachea is normal. Retropharangeal Space: -Normal. Parapharyngeal Fat Planes: -Normal and undisturbed. Chemical Engineer Spaces: -Normal. Anterior Cervical Space: -Normal. No mass is appreciated. Imaged Intracranial Contents: -No mass effect, edema, or abnormal enhancement. Cortical and dural venous sinuses are patent. The skull base is normal. Globes and Orbits: -Normal. Paranasal Sinuses/Mastoids/Tympanic Spaces: -Normally aerated bilaterally. Lung Apices and Superior Mediastinal Structures: -Imaged lung apices are clear and superior mediastinal structures are normal. Bony Structures: -No suspicious bone lesions. No fractures. -Normal TM joints. -The maxilla is edentulous. CT/CT soft tissue neck w IV con IMPRESSION: 1. No mass or abnormal lymphadenopathy within the neck. Electronically signed by: Michael Dhillon MD 11/08/2024 09:14 AM EDT Dictated By: Michael Dhillon MD Signed By: <Electronically signed by Michael Dhillon MD in OV> 11/08/24 0914 DD/ 0849 TD/TT: 11/08/24 0900 Swine Extension Field Specialist: [facility] IMG CT PROCEDURES Final R esult * POCT Rapid Covid-19 BinaxNOW (11/01/2024 1:32 PM EDT) [facility] Rapid COVID Ag Negative QC Media Lot # [id number] Lot# Expiration Date 58,126 Nimo 11/01/2024 1:32 PM EDT [facility] POINT OF CARE TEST ENTER/ EDIT ORDERABLES Final Result * POCT Rapid Influenza B OSOM (11/01/2024 1:32 PM EDT) [facility] Rapid Influenza B Ag Negative Negative, Indeterminate QC Media Lot # [id number] Lot# Expiration Date 1 Swab 11/01/2024 1:32 PM EDT Result [facility] POINT OF CARE TEST ENTER/ EDIT ORDERABLES Final Result * POCT Rapid Influenza A OSOM (11/01/2024 1:32 PM EDT) [facility] Rapid Influenza A Ag Negative Negative, Indeterminate QC Media Lot # [id number] Lot# Expiration Date 1 Swab Nasopharyngeal structure / Unknown 11/01/2024 1:32 PM EDT Result [facility] POINT OF CARE TEST ENTER/ EDIT ORDERABLES Final Result * POCT Rapid Strep A OSOM (11/01/2024 1:32 PM EDT) [facility] Rapid Strep A Screen Negative Negative, None Detected QC Media Lot # [id number] Lot# Expiration Date 32,026 Swab 11/01/2024 1:32 PM EDT Result [facility] POINT OF CARE TEST ENTER/ EDIT ORDERABLES Final Result * (ABNORMAL) CBC auto differential (10/29/2024 11:49 AM EDT) Only the most recent of2 resultswithin the time period is included. [facility] White Blood Count 8.5 4.8 - 10.8 X10*3/uL [facility] Red Blood Count 3.86(L) 4.20 - 5.50 X10*6/uL [facility] Hemoglobin 12.3 12.0 - 16.0 g/dl [facility] Hematocrit 35.6(L) 37.0 - 47.0 % [facility] Mean Corpuscular Volume 92.2 80.0 - 98.0 fL [facility] Mean Corpuscular Hemoglobin 31.9 27.0 - 33.0 pg [facility] Mean Corpuscular HGB Conc 34.6 31.0 - 35.0 g/dl [facility] Red Cell Distribution Width 13.2 11.0 - 16.0 % [facility] Platelet Count 314 160 - 400 X10*3/uL [facility] Mean Platelet Volume 9.1(L) 9.4 - 12.3 fL [facility] Neutrophils Percent Auto 59.8 45 - 73 % [facility] Imm Gran Pct Auto 0.6(H) 0.0 - 0.4 % [facility] Lymphocytes Percent Auto 33.5 20 - 40 % [facility] Monocytes Percent Auto 5.0 2 - 11 % [facility] Eosinophils Percent Auto 0.9 0 - 4 % [facility] Basophils Percent Auto 0.2 0 - 2 % [facility] NRBC Pct Auto 0.0 0.0 - 0.2 /100WBC [facility] Neutrophils Absolute Auto 5.1 2.0 - 8.3 x10*3/uL [facility] Imm Gran Abs Auto 0.05(H) 0.00 - 0.03 X10*3/uL [facility] Lymphocytes Absolute Auto 2.8 1.2 - 4.9 X10*3/uL [facility] Monocytes Absolute Auto 0.4 0.1 - 1.2 X10*3/uL [facility] Eosinophils Absolute Auto 0.1 0.0 - 0.4 X10*3/uL [facility] Basophils Absolute Auto 0.0 0.0 - 0.2 X10*3/uL [facility] NRBC Abs Auto 0.000 0.0 - 0.012 X10*3/uL [facility] 10/29/2024 11:4 9 AM EDT 10/29/2024 12:01 PM EDT us Generic External Data Provider LAB BLOOD ORDERAB LES Final Result [facility] [address] [place] [address] [phone] * Comprehensive Metabolic Panel (10/29/2024 11:49 AM EDT) Sodium 140 135 - 145 mmol/L [facility] Potassium 3.6 3.3 - 5.1 mmol/L [facility] Chloride 104 96 - 108 mmol/L [facility] Carbon Dioxide 27 22 - 29 mmol/L [facility] Anion Gap 13 12 - 20 [facility] Urea Nitrogen (BUN) 9 9 - 16 mg/dL [facility] Creatinine, Serum 0.81 0.5 - 1.4 mg/dL [facility] Creatinine Clr Calc Pharmacy 80.5 [facility] Comment:Provided height and weight: 162.56 cm,73.1 kg.eGFR (calculated from the MDRD study equation) and eCrCl(calculated from the Cockcroft-Gault equation) are based ondifferent parameters and may not yield comparable results.If eCrCl result is absurd, please check patient'sheight/weight. Estimated Glomerular Filt Rate >60 [facility] Comment:Chronic Kidney Disea se: Estimated GFR < 60 mL/min/1.98l2Rjjjwq Kidney Disease: Estimated GFR < 15 mL/min/1.73m2 Glucose 92 60 - 115 mg/dL [facility] Calcium 9.5 8.4 - 10.2 mg/dL [facility] Bilirubin, Total 0.3 0.0 - 1.0 mg/dL [facility] Aspartate Amino Transferase 26 5 - 31 U/L [facility] Alanine Aminotransferase 18 0 - 31 U/L [facility] Total Protein 7.7 6.5 - 8.0 g/dL [facility] Albumin Level 4.7 3.5 - 5.0 g/dL [facility] Alkaline Phosphatase 47 39 - 117 U/L [facility] 10/29/2024 11:4 9 AM EDT 10/29/2024 12:01 PM EDT us Generic External Data Provider LAB BLOOD ORDERAB LES Final Result Performing Organization Address [facility] Co de Phone Number [facility] [address] [place] [address] [phone] * (ABNORMAL) Basic Metabolic Panel (10/17/2024 8:23 AM EDT) Only the most recent of2 resultswithin the time period is included. Sodium 138 135 - 145 mmol/L [facility] Potassium 4.1 3.3 - 5.1 mmol/L [facility] Chloride 104 96 - 108 mmol/L [facility] Carbon Dioxide 28 22 - 29 mmol/L [facility] Anion Gap 10(L) 12 - 20 [facility] Urea Nitrogen (BUN) 11 9 - 16 mg/dL [facility] Creatinine, Serum 0.76 0.5 - 1.4 mg/dL [facility] Estimated Glomerular Filt Rate >60 [facility] Comment:Chronic Kidney Disea se: Estimated GFR < 60 mL/min/1.44h1Prgaea Kidney Disease: Estimated GFR < 15 mL/min/1.73m2 Glucose 126(H) 60 - 115 mg/dL [facility] Calcium 9.3 8.4 - 10.2 mg/dL [facility] Blood Venous blood specimen / Unknown 10/17/2024 8:23 AM EDT 10/17/2024 11:09 AM EDT us Amber Orozco MD LAB BLOOD ORDERABLES Final Re sult Performing Organization Address City/[facility]/ZIP Co de Phone Number [facility] [address] [place] [phone] * XR Hip 2 or 3 Views Left (10/17/2024 8:06 AM EDT) Anatomical Region Laterality Modality Lower Extremities, Hip Left Radiograp hic Imaging 10/17/2024 8:06 AM EDT Narrative 10/17/2024 9:20 AM EDT [address] [address] XRay Report Signed Patient: Marlene Hicks MR#: [id number] : 1975 Acct:[id number] Age/Sex: 49 / F ADM Date: 10/17/24 Loc: HO.HHCL Attending Dr: Dory Wen MD Ordering Physician: Dory Ray MD Date of Service: 10/17/24 Procedure(s): XR hip LT min 2V Accession Number(s): [id number] cc: Dory Ray MD EXAMINATION: XR HIP, LEFT CLINICAL INFORMATION: pain COMPARISON: July 18, 2019 TECHNIQUE: AP and oblique views of the left hip. FINDINGS: No acute cortical disruption or malalignment. Mild sclerosis along the articular surface of the acetabulum. Slight asymmetric joint space narrowing. No lytic or blastic lesions. Degenerative changes in the symphysis pubis. XR/XR hip LT min 2V IMPRESSION: Mild osteoarthrosis, left hip. Electronically signed by: Luis Enrique Sheriff MD 10/17/2024 09:17 AM EDT Dictated By: Luis Enrique Figueroa MD Signed By: <Electronically signed by Luis Enrique Blankenship MD in OV> 10/17/24 0917 DD/ 0806 TD/TT: 10/17/24 0859 Swine Extension Field Specialist: Procedure Note Donotuseinterpreter, Image - 10/17/[address] [address] XRay Report Signed Patient: Yudith HicksR#: [id number] : 1975Acct:[id number] Age/Sex: 49 / FADM Date: 10/17/24 Loc: HO.HHCL Attending Dr: Dory Wen MD Ordering Physician: Dory Ray MD Date of Service: 10/17/24 Procedure(s): XR hip LT min 2V Accession Number(s): [id number] cc: Dory Ray MD EXAMINATION: XR HIP, LEFT CLINICAL INFORMATION: pain COMPARISON: July 18, 2019 TECHNIQUE: AP and oblique views of the left hip. FINDINGS: No acute cortical disruption or malalignment. Mild sclerosis along the articular surface of the acetabulum. Slight asymmetric joint space narrowing. No lytic or blastic lesions. Degenerative changes in the symphysis pubis. XR/XR hip LT min 2V IMPRESSION: Mild osteoarthrosis, left hip. Electronically signed by: Luis Enrique Sheriff MD 10/17/2024 09:17 AM EDT RP Dictated By: Luis Enrique Figueroa MD Signed By: <Electronically signed by Luis Enrique Blankenship MDin OV> 10/17/24 0917 DD/ 5 TD/TT: 10/17/24 0859 Swine Extension Field Specialist: us Dory Wen MD IMG XR PROCEDURES Fin al Result * (ABNORMAL) POCT urinalysis dipstick manually resulted (10/09/2024 4:20 PM EDT) Color, UA Yellow Clarity, UA Clear Glucose, UA Negative Bilirubin, UA Negative Ketones, UA Negative Spec Grav, UA 1.015 Blood, UA Positive(A) Negative, None Detected Comment:small pH, UA 7.0 Protein, UA Negative Urobilinogen, UA 0.2 Leukocytes, UA Negative Negative, Rare, Trace Nitrite, UA Negative Negative, None Detected Urine 10/09/2024 4:20 PM EDT Amber Orozco MD POINT OF CARE TEST ENTER/EDIT ORDERABLES Final Result * Bacterial Vaginosis Panel (10/09/2024 4:16 PM EDT) TRICHOMONAS VAGINALIS DETECTION BY PCR NOT DETECTED Not Detect [facility] BACTERIAL VAGINOSIS DETECTION BY PCR NEGATIVE Negative [facility] Comment:The BV organism targ ets [...] DETECTION BY PCR NOT DETECTED Not Detect [facility] Maureen glab krusei PCR NOT DETECTED Not Detect [facility] Swab Vaginal structure / Unknown 10/09/2024 4:16 PM EDT 10/10/2024 12:12 PM EDT Amber Orozco MD LAB MICROBIOLOGY - GENERAL OR DERABLES Final Result Performing Organization Address [facility] Co de Phone Number [facility] [address] [place] [phone] * Culture, Urine, Routine (10/09/2024 4:16 PM EDT) Urine Urine specimen obtained by clean catch procedure / Unknown 10/09/2024 4:16 PM EDT 10/10/2024 12:11 PM EDT Comment:UACC Narrative [facility] - 10/11/2024 11:30 AM EDT Urine Culture No growth. Specimen Source: Urine clean catch Amber Orozco MD LAB MICROBIOLOGY - GENERAL OR DERABLES Final Result Performing Organization Address [facility] Co de Phone Number [facility] [address] [place] [phone] * XR Chest 2 Views (10/05/2024 9:17 PM EDT) Anatomical Region Laterality Modality Chest Radiographic [place] 10/05/2024 9:17 PM EDT Narrative 10/05/2024 9:19 PM EDT [address] [address] XRay Report Signed Patient: Marlene Hicks MR#: [id number] : 1975 Acct:[id number] Age/Sex: 49 / F ADM Date: 10/05/24 Loc: .ED Attending Dr: Ordering Physician: Skye Abad Date of Service: 10/05/24 Procedure(s): XR chest 2V Accession Number(s): [id number] cc: Dory Ray MD; Skye Abad CLINICAL HISTORY: CP 2 view chest x-ray Comparison: CR/OK/SR - XR CHEST 2V - 04/12/24 10:08 EST Findings: The lungs are clear. Normal size heart. No acute fracture. IMPRESSION: 1. No acute findings. This document has been electronically signed by: Luke Yu MD on 10/05/2024 21:17:09 Dictated By: Luke Yu MD Signed By: <Electronically signed by Luke Yu MD in OV> 10/05/242117 DD/ 16 TD/TT: 10/05/242116 Swine Extension Field Specialist: Procedure Note Donotuseinterpreter, Image - 10/05/2024 [place] [address] XRay Report Signed Patient: Crissy Hicks#: [id number] : 1975Acct:[id number] Age/Sex: 49 / FADM Date: 10/05/24 Loc: .ED Attending Dr: Ordering Physician: Skye Abad Date of Service: 10/05/24 Procedure(s): XR chest 2V Accession Number(s): [id number] cc: Dory Ray MD; Skye Abad CLINICAL HISTORY: CP 2 view chest x-ray Comparison: CR/OK/SR - XR CHEST 2V - 04/12/24 10:08 EST Findings: The lungs are clear. Normal size heart. No acute fracture. IMPRESSION: 1. No acute findings. This document has been electronically signed by: Luke Yu MD on 10/05/2024 21:17:09 Dictated By: Luke Yu MD Signed By: <Electronically signed by Luke Yu MD in OV> 10/05/242117 DD/ 16 TD/TT: 10/05/242116 Swine Extension Field Specialist: us [facility] External Provider IMG XR PROCEDURES Edited Result - Final * CT Head w/o Contrast (10/05/2024 8:55 PM EDT) Anatomical Region Laterality Modality Head, Neck Computed Tomogra phy 10/05/2024 8:55 PM EDT Narrative 10/05/2024 8:57 PM EDT [address] [address] [address] Scan Report Signed Patient: Marlene Hicks MR#: [id number] : 1975 Acct:[id number] Age/Sex: 49 / F ADM Date: 10/05/24 Loc: HO.ED Attending Dr: Ordering Physician: Skye Abad Date of Service: 10/05/24 Procedure(s): CT head/brain wo IV con Accession Number(s): [id number] cc: Dory Ray MD; Skye Abad Report Number: [id number]: Total DLP = 670.00 mGy-cm CLINICAL HISTORY: headache, high BP CT head without contrast Comparison: CT/SR - CT HEAD FOR STROKE - 04/13/24 17:26 EST Findings: Motion artifact somewhat limits evaluation, with diffuse peripheral hypoattenuation throughout, felt to be artifactual No intra-axial mass, midline shift, hydrocephalus, or acute hemorrhage. No significant atrophy-like change or white matter disease. There is no sinus or mastoid fluid. The orbits are within normal limits. No skull fracture. IMPRESSION: 1. No acute intracranial findings. This document has been electronically signed by: Luke Yu MD on 10/05/2024 20:55:19 Dictated By: Luke Yu MD Signed By: <Electronically signed by Luke Yu MD in OV> 10/05/242055 DD/ 54 TD/TT: 10/05/242054 Swine Extension Field Specialist: Procedure Note Donotuseinterpreter, Image - 10/05/[address] [place] [address] [address] Scan Report Signed Patient: Crissy Hicks#: [id number] : 1975Acct:[id number] Age/Sex: 49 / FADM Date: 10/05/24 Loc: HO.ED Attending Dr: Ordering Physician: Skye Abad Date of Service: 10/05/24 Procedure(s): CT head/brain wo IV con Accession Number(s): [id number] cc: Dory Ray MD; Skye Abad Report Number: [id number]: Total DLP = 670.00 mGy-cm CLINICAL HISTORY: headache, high BP CT head without contrast Comparison: CT/SR - CT HEAD FOR STROKE - 04/13/24 17:26 EST Findings: Motion artifact somewhat limits evaluation, with diffuse peripheral hypoattenuation throughout, felt to be artifactual No intra-axial mass, midline shift, hydrocephalus, or acute hemorrhage. No significant atrophy-like change or white matter disease. There is no sinus or mastoid fluid. The orbits are within normal limits. No skull fracture. IMPRESSION: 1. No acute intracranial findings. This document has been electronically signed by: Luke Yu MD on 10/05/2024 20:55:19 Dictated By: Luke Yu MD Signed By: <Electronically signed by Luke Yu MD in OV> 10/05/242055 DD/ 54 TD/TT: 10/05/242054 Swine Extension Field Specialist: [facility] External Provider IMG CT PROCEDURES Edited Result - Final * High Sensitivity Troponin I (10/05/2024 8:25 PM EDT) TROPONIN I HIGH SENSITIVITY 4.1 <3.5 - 17.0 ng/L [facility] Comment:The [place] high sens itivity Troponin-I results should beused in conjunction with other diagnostic information suchas ECG, clinical observations and information, and patientsymptoms to aid in the diagnosis of NE. 10/05/2024 8:25 PM EDT 10/05/2024 8:28 PM EDT us Generic External Data Provider LAB BLOOD ORDERAB LES Final Result Performing Organization Address City/[facility]/ZIP Co de Phone Number [facility] [address] [place] [address] [phone] * TSH with Reflex to Free T4 (10/05/2024 8:25 PM EDT) TSH reflex Free T4 1.96 0.32 - 4.0 uIU/mL [facility] 10/05/2024 8:25 PM EDT 10/05/2024 8:28 PM EDT Generic External Data Provider LAB BLOOD ORDERAB LES Final Result Performing Organization Address [facility] Co de Phone Number [facility] [address] [place] [address] [phone] * SARS-CoV-2 RNA, Influenza A/B, and RSV RNA, Ql NAAT (10/05/2024 8:25 PM EDT) Influenza A PCR NEGATIVE Negative [facility] Influenza B PCR NEGATIVE Negative [facility] Resp Syncy Virus RNA Qual PCR NEGATIVE Negative [facility] SARS COV2 PCR NEGATIVE Negative [facility] Comment:All test results mus t [...] use by authorized laboratories.Testing performed on the combionic GeneXpert utilizingreal-time RT-PCR.All SARS CoV2 and positive influenza A/B results arereported to [facility]. 10/05/2024 8:25 PM EDT 10/05/2024 8:28 PM EDT us Generic External Data Provider LAB MICROBIOLOGY - GENERAL ORDERABLES Final Result Performing Organization Address [facility] de Phone Number [facility] [address] [place] [address] [phone] * B Type Natriuretic Peptide (BNP) (10/05/2024 8:25 PM EDT) B Type Natriuretic Peptide <10 <100 pg/mL [facility] 10/05/2024 8:25 PM EDT 10/05/2024 8:28 PM EDT Generic External Data Provider LAB BLOOD ORDERAB LES Final Result Performing Organization Address [facility] Phone Number [facility] [address] [place] [address] [phone] * Magnesium (10/05/2024 8:25 PM EDT) Pathologist [facility] Magnesium 2.0 1.6 - 2.6 mg/dL [facility] 10/05/2024 8:25 PM EDT 10/05/2024 8:28 PM EDT Generic External Data Provider LAB BLOOD ORDERAB LES Final Result Performing Organization Address [facility] Co de Phone Number [facility] [address] [place] [address] [phone] * Hepatic Function Panel (10/05/2024 8:25 PM EDT) Bilirubin, Total 0.2 0.0 - 1.0 mg/dL [facility] Bilirubin, Direct <0.2 0.0 - 0.5 mg/dL [facility] Aspartate Amino Transferase 26 5 - 31 U/L [facility] Alanine Aminotransferase 28 0 - 31 U/L [facility] Total Protein 7.7 6.5 - 8.0 g/dL [facility] Albumin Level 4.6 3.5 - 5.0 g/dL [facility] Alkaline Phosphatase 49 39 - 117 U/L [facility] 10/05/2024 8:25 PM EDT 10/05/2024 8:28 PM EDT Generic External Data Provider LAB BLOOD ORDERAB LES Final Result [facility] [address] [place] [phone] * POCT Hemoglobin (10/04/2024 1:39 PM EDT) Hemoglobin 12.5 12.0 - 15.0 QC Media Lot # [id number] Lot# Expiration Date Blood 10/04/2024 1:39 PM EDT Dory Wen MD POINT OF CARE TEST EN TER/EDIT ORDERABLES Final Result * POCT Glucose (10/04/2024 1:38 PM EDT) Glucose Blood, POC 96 60 - 200 mg/dL QC Media Lot # [id number] Lot# Expiration Date Blood Capillary blood specimen / Unknown 10/04/2024 1:38 PM EDT Dory Wen MD POINT OF CARE TEST EN TER/EDIT ORDERABLES Final Result * BI Mammogram Screening Tomosynthesis Bilateral (06/27/2024 11:45 AM EDT) Anatomical Region Laterality Modality Breast Bilateral Mammography 06/27/2024 11:4 5 AM EDT Narrative 07/03/2024 5:46 PM EDT [facility] [address] [place] [address] Mammography Report Signed Patient: Marlene Hicks MR#: [id number] : 1975 Acct:[id number] Age/Sex: 48 / F ADM Date: 06/27/24 Loc: HO.MAMMO Attending Dr: Dory Wen MD Ordering Physician: Dory Ray MD Results: 1Negative Date of Service: 06/27/24 Follow Up: 1 Year From Orig inal Mammogram Procedure(s): MM tomosynthesis screening BI Accession Number(s): [id number] cc: Dory Ray MD EXAMINATION: MM SCREENING [...] 07/03/24 1743 DD/ 1145 TD/TT: 06/27/24 1200 Swine Extension Field Specialist: Procedure Note Donotuseinterpreter, Image - 07/03/2024 [facility] [address] [place] [address] [place] [address] Mammography Report Signed Patient: Crissy Hicks#: [id number] : 1975Acct:[id number] Age/Sex: 48 / FADM Date: 06/27/24 Loc: HO.MAMMO Attending Dr: Dory Wen MD Ordering Physician: Dory Ray MDResults: 1Negative Date of Service: 06/27/24Follow Up: 1 Year From Orig inal Mammogram Procedure(s): MM tomosynthesis screening BI Accession Number(s): [id number] cc: Dory Ray MD EXAMINATION: MM SCREENING [...] 07/03/24 1743 DD/ 1145 TD/TT: 06/27/24 1200 Swine Extension Field Specialist: us Dory Wen MD IMG BI PROCEDURES Fin al Result * Hepatitis C Ab (06/26/2024 9:38 AM EDT) Hepatitis C Antibody Nonreactive Nonreactive [facility] Comment:Antibodies to HCV no t detected; does not exclude early acuteHCV infection. 06/26/2024 9:38 AM EDT 06/26/2024 9:38 AM EDT us Generic External Data Provider LAB BLOOD ORDERAB LES Final Result Performing Organization Address City/[facility]/ZIP Co de Phone Number [facility] [address] [place] [phone] * HIV-1/2 Antigen and Antibodies, Fourth Generation, with Reflexes (06/26/2024 9:38 AM EDT) Pathologist [facility] HIV AB/AG Nonreactive Nonreactive [facility] Comment:HIV-1 p24 Ag and/or HIV-1/HIV-2 Ab not detected.A test result that is nonreactive does not exclude thepossibility of exposure to or infection with HIV-1 and/orHIV-2. Nonreactive results in this assay for individualswith prior exposure to HIV-1 and/or HIV-2 may be due toantigen and antibody levels that are below the limit ofdetection of this assay.The [employer] HIV Ag/Ab Combo assay result andsupplemental assay results should be interpreted inconjunction with the patient's clinical presentation,history and other laboratory results. If the results areinconsistent with clinical evidence, additional testing issuggested to confirm the result. 06/26/2024 9:38 AM EDT 06/26/2024 9:38 AM EDT us Generic External Data Provider LAB BLOOD ORDERAB LES Final Result Performing Organization Address City/[facility]/ZIP Co de Phone Number [facility] [address] [place] [address] [phone] * HPV mRNA E6/E7 w/Reflex to HPV Genotypes 16, 18/45 (07/19/2023 9:21 AM EDT) Pathologist [facility] HPV nRNA E6/E7 Not Detected Not Detected [facility] Comment:Methodology: Transcr iption-Mediated AmplificationThis assay detects E6/E7 viral messenger RNA (mRNA) from 14high-risk HPV types (16,18,31,33,35,39,45,51,52,56,58,59,66,68).Cervical sources are required for HPV testing.If a vaginal source from a patient who has had atotal hysterectomy with removal of cervix wassubmitted, please contact the testing laboratoryfor alternative testing options.For additional information, please refer tohttp://education.[employer]/faq/PIF109t9(This link if provided for information/educational purposes only.)THIS TEST WAS PERFORMED AT:[employer] [place] [phone] WONG MD HPV mRNA E6/E7 [facility] HPV 16 RNA [facility] HPV 18/45 RNA [facility] 07/19/2023 9:21 AM EDT 07/20/2023 9:05 AM EDT us Generic External Data Provider LAB CYTOLOGY NEFTALI ROLLINS Final Result [facility] [address] [place] [address] [phone] * (ABNORMAL) Lipid Panel, Standard (06/16/2023 10:01 AM EDT) Triglycerides 107 <150 mg/dL [facility] Comment:Desirable Triglyceri de: less than 150 mg/dLBorderline High Triglyceride 150-199 mg/dLHigh Triglyceride: 200-499 mg/dLVery High Triglyceride: greater than or equal to 5OO mg/dL Cholesterol 191 <200 mg/dL [facility] Comment:Desirable Cholestero l: less than 200 mg/dLBorderline High Cholesterol: 200-239 mg/dLHigh Cholesterol: greater than 239 mg/dL LDL Cholesterol Calculated 137(H) <100 mg/dL [facility] Comment:Desirable LDL: less than 100 mg/dLNear Optimal/Above Optimal LDL: 110- 129 mg/dLBorderline High LDL: 130-159 mg/dLHigh LDL: 160-189 mg/dLVery High LDL: greater than or equal to 190 mg/dL HDL Cholesterol 33(L) >40 mg/dL [facility] Comment:Desirable HDL: great er than 40 mg/dL Note: This HDL assay may give artificially low results in patients with liver disease. Blood Venous blood specimen / Unknown 06/16/2023 10:01 AM EDT 06/16/2023 11:27 AM EDT us Dory Wen MD LAB BLOOD ORDERABLES Final Result [facility] [address] [place] [address] [phone] * Pap Smear (02/21/2023 2:25 PM EST) 02/21/2023 2:25 PM EST 02/22/2023 10:30 AM EST Narrative [facility] - 03/07/2023 8:53 PM EST ----- ------- Name: Marlene Hicks Age/Sex: 47/F : 1975 Unit#: [id number] Attend Dr: Macho Sarkar MD Re02/21/23 Status: DEP REF Location: [facility] Disch: ----- ------- SPEC : [id number] RECD: 02/22/23 STATUS: JELLY FARRELL NUM: [id number] TREVON: 02/21/234004 [facility] DR: Macho Sarkar MD ENTERED: 02/22/23-1217 SP TYPE: Pap Smr OTHR DR: Dory Ray MD ORDERED: Pap Smear, PAP path review Interpretation General Category: Epithelial cell abnormality. Adequacy: Endocervical component present.k Interpretation: Atypical squamous cells of undetermined significance. Hyperkeratosis. HPV mRNA E6/E7: Not detected This assay detects E6/E7 viral messenger RNA (mRNA) from 14 high-risk HPV types (16, 18, 31, 33, 35, 39, 45, 51, 52, 56, 58, 59, 66, 68) HPV testing performed by [employer], [place], [place]. See reference laboratory portion of the EMR for entire report. Clinical Information LMP: Postmenopausal Previous PAP test: Unknown date/findings Other history: Abnormal uterine and vaginal bleeding. Material Received ThinPrep-Cervical Copies To: Dory Ray MD [address] [place] [address] Macho Sarkar MD [address] [place] [address] [address] [place] [address] ----- ------- Signed (signature on file) Abbie Saunders MD 03/07/232052 ----- ------- END OF REPORT us Generic External Data Provider LAB CYTOLOGY NEFTALI ROLLINS Final Result [facility] [address] [place] [phone] * Cologuard?? colon cancer screening (12/27/2022 9:47 AM EDT) Cologuard Result Negative Negative 01/07/20 5:43 PM EDT [facility] (CLIA #:[id number]) Comment: NEGATIVE TEST RESULT. A negative Cologuard result indicates a low likelihood that a colorectal cancer (CRC) or advanced adenoma (adenomatous polyps with more advanced pre-malignant features) is present. The chance that a person with a negative Cologuard test has a colorectal cancer is less than 1 in 1500 (negative predictive value >99.9%) or has an advanced adenoma is less than 5.3% (negative predictive value 94.7%). These data are based on a prospective cross-sectional study of 10,000 individuals at average risk for colorectal cancer who were screened with both Cologuard and colonoscopy. (Anum Adan al, N Engl J Med 2014;370(14):6312-6620) The normal value (reference range) for this assay is negative. COLOGUARD RE-SCREENING RECOMMENDATION: Periodic colorectal cancer screening is an important part of preventive healthcare for asymptomatic individuals at average risk for colorectal cancer. Following a negative Cologuard result, the [place] Cancer Society and U.S. Multi-Society Task Force screening guidelines recommend a Cologuard re-screening interval of 3 years. References: [place] [employer] Guideline for Colorectal Cancer Screening: https://www.cancer.org/cancer/yjqyp-qqbtrx-tdvwoa/wdjljickz-umdnuxygi-elbavjv/ac s-rec ommendations.html.; Yossi DK, Katja CR, Mona LugoK, Colorectal Cancer Screening: Recommendations for Physicians and Patients from the U.S. Multi-Society Task Force on Colorectal Cancer Screening , Am J Gastroenterology 2017; 112:1067-2101. TEST DESCRIPTION: Composite algorithmic analysis of stool DNA-biomarkers with hemoglobin immunoassay. Quantitative values of individual biomarkers are not [...] (Anum Adan al, N Engl J Med 2014;370(14):1871-2876.) Cologuard may produce a false negative or false positive result (no colorectal cancer or precancerous polyp present at colonoscopy follow up). A negative Cologuard test result does not guarantee the absence of CRC or advanced adenoma (pre-cancer). The current Cologuard screening interval is every 3 years. ([place] [employer] Society and U.S. Multi-Society Task Force). Cologuard performance data in a 10,000 patient pivotal study using colonoscopy as the reference method can be accessed at the following location: www.[employer]/results. Additional description of the Cologuard test process, warnings and precautions can be found at www.[employer].com. Stool specimen (specimen) 12/27/2022 9:47 AM EDT 12/29/2022 7:44 PM EDT Dory Wen MD LAB MOLECULAR DIAGNOS TICS ORDERABLES Final Result [facility] (CLIA #:[id number]) [address] [place] [address], [place] [phone] from Last 3 Months or Most Recently Relevant to Health Maintenance [facility] Care Teams Regulation Supervisor Relationship Specialty Start Date End Date Dory Ray MD [address] [place] [phone] PCP - General Family Medicine 01/03/19 Jeane Lemons Master Sonar TechnicianBlanket Binder 11/09/23
== END 2024-12-18 09:36 | disposition home or self-care (01) ==
LOC: HO.HVS 08:42
PROVIDERS: PCP Internal Medicine; Visit Provider Surgery Vascular Surgery
DX: I73.9 Peripheral vascular disease, unspecified (principal)
CPT/HCPCS: 99214

== ENCOUNTER → 2024-12-18 08:42 | Outpatient (BNVA) | payer MEDICAID, SELFPAY | PROVIDERS: PCP Internal Medicine; Visit Provider Surgery Vascular Surgery | DX: Z71.2 Person consulting for explanation of examination or test findings (principal); M79.605 Pain in left leg; M79.604 Pain in right leg; M54.50 Low back pain, unspecified; E87.6 Hypokalemia | CPT/HCPCS: 99212 ==

== ENCOUNTER 2024-12-28 10:29 | Outpatient (AMB) | payer MEDICAID, SELFPAY ==
--- NOTE | 2024-12-28 10:32 | MHC.OFFVIS ---
Vital Signs 12/28/24 10:38 Height 5 ft 4 in Weight 162 lb BMI 27.8 BP 118/78 Blood Pressure Location Rt brachial Position Sitting Pulse 98 Pulse Source Pulse Oximeter Pulse Oximetry (%) 97 Oxygen Delivery Method Room Air Intake Visit Reasons: Added from cancellation list. Dysphagia exacer. Intake Note: Est pt for eval of exacerbated sx. TARYN 2023. Dysphagia. CC: C.O. dysphagia with any intake regardless of contents. Pt states that she is frequently having to drink water to jodi any food she eats. Pt also reports occasional reflux but states that it is not as frequent as the dysphagia. Interactive Art Director Required: Yes Interactive Art Director Services: Interactive Art Director Offered & Declined Accompanied by: Self / Same As Patient Allergies No Known Allergies Allergy (Verified 12/28/24 10:32) HPI HPI Added from cancellation list. Dysphagia exacer.: Details: LAST VISIT: Screen for colon cancer Plan Patient denies any GI, cardiac or respiratory symptoms.? Occasional acid reflux, uses pantoprazole as needed. Denies any issues with anesthesia in the past.? Denies any history of sleep apnea.? No history infectious diseases in the past or present.? Not on any anticoagulation therapy.? No family or personal history of colon cancer or polyps.? Patient denies melena, hematochezia, unintentional weight loss or ribbon like stools.? Discussed at length the pre-procedure,? prep, diet & medications as well as what to expect prior, during and after the procedure.?? Stressed the importance of good bowel prep.? Recommended the use of Vaseline or Calmoseptine OTC & baby wipes with bowel movements to promote comfort.? ?Patient verbalizes understanding and agrees to plan of care.? She was given the opportunity to ask questions and all questions answered.? We will see her after the procedure.? New bisacodyl (Dulcolax (bisacodyl)) take 4 tabs at noon the day before your colonoscopy 20 mg (4 x 5 mg) PO ONCE 1 day 4 tabs 0RF Z12.11 polyethylene glycol 3350 (Miralax) As directed by gastroenterology department at [facility] 238 grams PO ONCE 238 grams 0RF Z12.11 Discontinued metronidazole Discontinued Reason: Patient Completed Course 500 mg PO BID 7 days 14 tabs 0 COLONOSCOPY Findings: Terminal Ileum-normal Cecum:normal Right sided retroflexion- normal Ascending Colon: moderate diverticulosis Transverse Colon -normal Descending Colon:normal Sigmoid Colon: normal Rectum: Retroflexion with small internal hemorrhoids seen, grade I Anorectum - normal Intervention: none Colon preparation: [place] Bowel Preparation Scale Right colon; 2 Transverse colon: 2 Left colon; 2 (0 = Unprepared colon segment with mucosa not seen due to solid stool that cannot be cleared. 1 = Portion of mucosa of the colon segment seen, but other areas of the colon segment not well seen due to staining, residual stool and/or opaque liquid. 2 = Minor amount of residual staining, small fragments of stool and/or opaque liquid, but mucosa of colon segment seen well. 3 = Entire mucosa of colon segment seen well with no residual staining, small fragments of stool or opaque liquid) Impression and Post Procedure Diagnosis: diverticulosis internal hemorrhoids Plan: High fiber diet leaflet Avoid straining at stool, epsom salts and sitz bath, anusol supps or cream Repeat Colonoscopy in 10 years or earlier if clinically indicated TODAY'S VISIT Last seen over 1 year ago for colonoscopy screening. Colonoscopy normal 03/2024- recommend f/u 10 years and increase dietary fiber. Biggest concern today is worsening dysphagia, has been managing GERD with PCP and is feeling worse. Had a GI barium swallow in November which showed hiatal hernia. Patient taking pantoprazole every day. And famotidine BID. Still feels like she is choking on foods. Epigastric pain daily. Feels like she has to drink a lot of water to gt pills down. Feels like he can only eat little bits at a time due to this. Reports she has bloating, reports eating makes it worse. Reports that she had very excessive bloating a few months ago. Patient reprots that this is very uncomfortable at times.? She reports that she has swelling around her neck at times, had a CT scan last month which showed fatty changes of left salivary glands.? Reports significant constipation that is bothersome. Has tried dulcolax prn with little? improvement. Tries to eat raisins, plums to help go. Bowel movements are small, hard and will go small amounts at a time. But typically goes only every 3-4 days and strains to go.?? Today denies dyspepsia, odynophagia, early satiety, lower abdominal pain, belching, loose stools, melena, hematochezia, excessive flatus, ribbon like stools, nausea, vomiting, unintentional weight loss. No known family history of colon cancer. Has no known adverse reactions to anesthesia. No history SUNITA. No blood thinning medications. [facility] Medical History HTN (hypertension) Asthma Seasonal allergies Nicotine dependence, cigarettes, uncomplicated Fibromyalgia Chronic pain syndrome Anxiety and depression Migraines Constipation Complex ovarian cyst Abnormal uterine bleeding (AUB) Microscopic hematuria Interstitial cystitis Urinary frequency Stress incontinence Female pelvic pain Abdominal mass, left lower quadrant Well woman exam Breast lump Disc degeneration, lumbar Spondylosis of lumbar spine Arthritis Surgical History History of carpal tunnel surgery of left wrist History of cystoscopy History of salpingo-oophorectomy History of loop electrosurgical excision procedure (LEEP) History of bilateral tubal ligation Family History Sister History of breast cancer, Onset Age: 52 Brother History of bone cancer History of blood disorder History of brain cancer Paternal Aunt History of cancer of uterus Mother Hx of cancer of lung Sister Hx of hysterectomy Family/Other Hx of hysterectomy Family/Other Hx of hysterectomy Daughter Hx of thyroid cancer Social History Household Members: Significant Other Housing: Apartment Do you presently have visiting nurse or other home services: Yes (LEATHER STAMPER daily) Alcohol intake: never Patient Tobacco Use Status: Current everyday Tobacco user Tobacco use type: Cigarette Cigarettes Per Day: 10 Years Smoked: (onset 10yo, 1/2-3/4ppd x 38yrs - 20pyh) Second Hand Smoke Exposure: No Substance Use Type: Marijuana service: No Sexual orientation: Straight/Heterosexual Gender identity: Female Female Reproductive History Menstrual Age of Menarche: 9 Review of Systems Const Denies weight gain and Denies weight loss ENT Reports no additional complaints, Denies dysphagia and Denies odynophagia Card Reports no additional complaints Resp Reports no additional complaints GI Denies abdominal pain, Denies belching, Denies melena, Denies bloating, Denies change in bowel habits, Denies dysphagia, Denies excessive flatus, Denies dyspepsia, Denies heartburn, Denies diarrhea, Denies loose stools, Denies nausea, Denies odynophagia and Denies vomiting Musc Reports no additional complaints Neuro Reports no additional complaints Psych Reports no additional complaints Endo Reports no additional complaints Physical Exam Vital Signs: Last Vital Signs Pulse 98 12/28/24 10:38 BP 118/78 12/28/24 10:38 Pulse Ox 97 12/28/24 10:38 Oxygen Delivery Method Room Air 12/28/24 10:38 BMI result Body Mass Index 27.8 Const General: healthy appearing, no acute distress and well developed Nutritional Appearance: well nourished Orientation/consciousness: patient oriented x3 Resp Effort & Inspection: normal respiratory effort, able to speak in complete sentences, no tracheal deviation and symmetric chest movement Auscultation: clear to auscultation bilaterally Cardio Rate: regular rate GI Inspection: Yes normal to inspection and No distended Palpation (GI): Soft to palpation, not firm, nontender and No hepatosplenomegaly present Auscultation: normal bowel sounds General: Yes no CVA tenderness Back/Spine/Pelvis Back: no CVA tenderness Skin General skin exam: elasticity normal, turgor normal and dry skin Neuro General: patient oriented x3 Psych Appearance: grossly normal Mental Status: mental status grossly normal Results Reviewed Results Reviewed: UPPER GI SERIES NOVEMBER 2024 IMPRESSION: Small sliding hiatal hernia without reflux. 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 Assessment & Plan Assessment & Plan (1) GERD (gastroesophageal reflux disease): Code(s): K21.9 - Gastro-esophageal reflux disease without esophagitis Qualifiers: Esophagitis presence: esophagitis presence not specified Qualified Code(s): K21.9 - Gastro-esophageal reflux disease without esophagitis (2) Dysphagia: Code(s): R13.10 - Dysphagia, unspecified Qualifiers: Dysphagia type: pharyngoesophageal phase Qualified Code(s): R13.14 - Dysphagia, pharyngoesophageal phase (3) Postprandial epigastric pain: Code(s): R10.13 - Epigastric pain Plan ? Will order upper endoscopy and labs (B12, TTG IGA, Folate, Lipase, A1c, TSH, vitamin-D). Will order xray of neck for tissue swelling today. Encouraged patient to follow GERD diet and increase dietary fiber. Will take dulcolax daily for constipation. Will stop pantoprazole and try nexium 40 mg daily. Continue with famotidine 20mg PO BID. Avoid dietary triggers in late night snacking. Staying upright for minimum 3 hours after meals discussed with patient. Encouraged FODMAP diet. Will follow up in 1-2 weeks after endoscopy or sooner if needed.? Patient is agreeable to current plan of care and verbalizes understanding of instructions. She was given the opportunity to ask questions and all questions answered. Thank you for allowing me to participate in her care Orders: Orders TSH reflex Free T4 Today K59.00 - Constipation, unspecified XR soft tissue neck Today K22.2 - Esophageal obstruction Lipase Today R10.9 - Unspecified abdominal pain Transglutaminase IgA Today R10.9 - Unspecified abdominal pain Hemoglobin A1c Today Z83.3 - Family history of diabetes mellitus Vitamin B12 and Folate Today R19.7 - Diarrhea, unspecified Vitamin D 25-OH (D2 and D3) Today E55.9 - Vitamin D deficiency, unspecified Referrals GI Procedure Notification R13.10 - Dysphagia, unspecified Medications: New bisacodyl (Dulcolax (bisacodyl)) 10 mg (2 x 5 mg) PO BEDTIME 180 tabs 4RF esomeprazole magnesium (Nexium) 40 mg PO DAILY 30 caps 3RF K21.9 - Gastro-esophageal reflux disease without esophagitis Coding Level of Care Code Est Pt Level 4 (10075) Complex EM visit Add On G2211 Diagnoses Gastroesophageal reflux disease, unspecified whether esophagitis present K21.9 Esophagitis presence: esophagitis presence not specified Pharyngoesophageal dysphagia R13.14 Dysphagia type: pharyngoesophageal phase Postprandial epigastric pain R10.13 Time Spent (min) 40 Comment 25 minute spent with patient and additional 15 minutes spent reviewing her records
[2024-12-28 10:38] VITALS: BP 118/78; PULSE 98; O2SAT 97; BMI 27.8
--- OUTSIDE RECORDS SUMMARY | 2024-12-28 11:55 | XMS_ITS | Encounter Summary ---
Author Organization [email or web address] Address [address] [place] [address] 7 [place] [address] Care Team Providers Care Turret Press Operator Name Role Phone Dory Ray MD Primary Care Provide r Le Us Unavailable Reason for Visit * Reason Comments Med Refill Encounter Details Date Type Department Care Team (Late Contact Info) Description 06/22/2022 Refill [facility] [address] [place] [phone] NameSoy MD [address] [place] [phone] Recurrent major depressive episodes, moderate (CMS/HCC); Migraine [...] AM EDT Office Visit [facility] [address] [place] [address] [phone] Dory Ray MD [address] [place], [place] [phone] 03/22/2025 10:30 AM EST Office Visit [facility] [address] [place], [place] [phone] Nathalia Allan, OD [address] [place] [address] documented as of this encounter Visit Diagnoses Diagnosis Recurrent major depressive episodes, moderate (CMS/HCC) Major depressive disorder, recurrent episode, moderate Migraine without status migrainosus, not intractable, unspecified migraine type documented in this encounter Care Teams Turret Press Operator Relationship Specialty Start Date End Date Dory Ray MD 230 [place], [place] [phone] PCP - General Family Medicine 01/03/19 Le Us 10/30/24 11/05/24 Jeane Lemons Traffic RecorderOperations And Intelligence Assistant 11/09/23 documented as of this encounter
--- OUTSIDE RECORDS SUMMARY | 2024-12-28 11:55 | XMS_ITS | Encounter Summary ---
Author Organization [employer] Address [address] [facility] 7t [place] [address] Care Team Providers Care Airfreight Loading Supervisor Name Role Phone Dory Ray MD Primary Care Provide r Le Us Unavailable Encounter Details Date Type Department Care Team ([facility] Contact Info) Description 04/07/2022 Orders Only [facility] [address] [place] [address] Rohini Middleton MD [address] [place] [address] [phone] Pain (Primary Dx) Social History Tobacco Use [...] Upcoming Encounters Date Type Department Care Team ([facility] Contact Info) Description 01/09/2025 10:45 AM EDT Office Visit [facility] [address] [place] [address] Dory Ray MD [address] [place], [place] [phone] 03/22/2025 10:30 AM EST Office Visit [facility] [address] [place], [place] [phone] Nathalia Allan, OD 230 [place], [place] [phone] documented as of this encounter Visit Diagnoses Diagnosis Pain- Primary Generalized pain documented in this encounter Care Teams Airfreight Loading Supervisor Relationship Specialty Start Date End Date Dory Ray MD [address] [place], [place] [phone] PCP - General Family Medicine 01/03/19 Le Us 10/30/24 11/05/24 Jeane Lemons Abstract ManagerCongregational Care Pastor 11/09/23 documented as of this encounter
--- OUTSIDE RECORDS SUMMARY | 2024-12-28 11:55 | XMS_ITS | Encounter Summary ---
Author Organization [employer] Address [address] [place] [address] 7 [place] [address] Care Team Providers Care Desktop Technician Name Role Phone Dory Ray MD Primary Care Provide r Le Us Unavailable Reason for Visit * Reason Comments Med Refill Encounter Details Date Type Department Care Team ([facility] st Contact Info) Description 09/06/2024 Refill [facility] [address] [place] [address] Katerine Killian MD [address] [place] [address] Social History Tobacco Use Types Packs/Day Years [...] EDT Office Visit [facility] [address] [place] [address] Dory Ray MD [address] [place] [address] 03/22/2025 10:30 AM EST Office Visit [facility] [address] [place] [address] Nathalia Allan, OD [address] [place] [address] documented as of this encounter Goals Goal [...] documented as of this encounter Care Teams Desktop Technician Relationship Specialty Start Date End Date Dory Ray MD [address] [place] [address] PCP - General Family Medicine 01/03/19 Le Us 10/30/24 11/05/24 Jeane Lemons Noc TechnicianBinder Coverstitch 11/09/23 documented as of this encounter
--- OUTSIDE RECORDS SUMMARY | 2024-12-28 11:55 | XMS_ITS | Encounter Summary ---
Author Organization [employer] Address [address] [place] [address] 7t [place] [address] Care Team Providers Care Computer Lab Aide Name Role Phone Dory Ray MD Primary Care Provide r Le Us Unavailable Reason for Visit * Reason Onset Date Comments requesting call back 03/24/2022 Encounter Details Date Type Department Care Team ([facility] st Contact Info) Description 03/24/2022 Telephone [facility] [address] [place] [address] Dory Ray MD [address] [place] [address] requesting call back Social History Tobacco Use [...] pt returning call Please contact pt at [phone] documented in this encounter Plan of Treatment Upcoming Encounters Date Type Department Care Team (Late st Contact Info) Description 01/09/2025 10:45 AM EDT Office Visit [facility] [address] [place] [address] Dory Ray MD [address] [place] [address] 03/22/2025 10:30 AM EST Office Visit [facility] [address] [place] [address] Nathalia Allan OD [address] [place] [address] documented as of this encounter Visit Diagnoses Not on filedocumented in this encounter Care Teams Computer Lab Aide Relationship Specialty Start Date End Date Dory Ray MD [address] [place] [address] PCP - General Family Medicine 01/03/19 Le Us 10/30/24 11/05/24 Jeane Lemons Cutting Torch OperatorCook Relief 11/09/23 documented as of this encounter
--- OUTSIDE RECORDS SUMMARY | 2024-12-28 11:55 | XMS_ITS | Clinical Summary ---
Author Organization [facility] Address [address] [facility] [address] [place] [phone] Phone Care Team Providers Care Infantry Indirect Fire Crewmember Name Role Phone [facility] Primary Care Provider Unavailable Allergies No [...] topic Medical Devices Not on file Insurance [facility] C3 [employer] [facility] [place] [place] [address] [place] [address] [employer]3 ACO [employer] [address] [place] [address] [place] [address] [place] [address] [place] [address] [place] [address] C3 ACO [facility] C3 ACO Care Teams Infantry Indirect Fire Crewmember Relationship Specialty Start Date End Date CenterJesse MD PCP - General 12/24/21 Additional Source Comments The information contained in this document represents components of the legal health record. It is not the complete legal health record.[facility]
--- OUTSIDE RECORDS SUMMARY | 2024-12-28 11:56 | XMS_ITS | Encounter Summary ---
Author Organization [employer] Address [address] [place] [address] 7 [place] [address] Care Team Providers Care Automation Lead Name Role Phone Dory Ray MD Primary Care Provide r Le Us Unavailable Reason for Visit * Reason Comments Med Refill Encounter Details Date Type Department Care Team (Late st Contact Info) Description 04/08/2024 Refill [facility] [address] [place] [address] Dory Ray MD [address] [place] [address] Chronic right-sided low back pain with right-sided [...] of the following? None of the above;Lead [place] or Pipes;Pests such as bugs, ants, [...] 10:45 AM EDT Office Visit [facility] [address] [place] [address] Dory Ray MD [address] [place] [address] 03/22/2025 10:30 AM EST Office Visit [facility] [address] [place] [address] Nathalia Allan OD [address] [place] [address] documented as of this encounter Goals Goal [...] documented as of this encounter Care Teams Automation Lead Relationship Specialty Start Date End Date Dory Ray MD [address] [place] [address] PCP - General Family Medicine 01/03/19 Le Us 10/30/24 11/05/24 Jeane Lemons District Administrative AssistantDeckhand Oyster Dredge 11/09/23 documented as of this encounter
--- OUTSIDE RECORDS SUMMARY | 2024-12-28 11:56 | XMS_ITS | Encounter Summary ---
Author Organization [email or web address] Address [address] [place] [address] [address] [place] [address] Care Team Providers Care Dowel Pointer Name Role Phone Dory Ray MD Primary Care Provide r Magen Le Unavailable Reason for Visit * Reason Comments Med Refill Encounter Details Date Type Department Care Team ([facility] Contact Info) Description 12/09/2022 Refill [facility] [address] [place] [address] [phone] Dory Ray MD [address] [place], [place] [phone] Anxiety Social History Tobacco Use Types Packs/Day [...] Upcoming Encounters Date Type Department Care Team ([facility] Contact Info) Description 01/09/2025 10:45 AM EDT Office Visit [facility] [address] [place] [address] [phone] Dory Ray MD [address] [place], [place] [phone] 03/22/2025 10:30 AM EST Office Visit [facility] [address] [place], [place] [phone] Nathalia Allan, MEDINA 230 [place], [place] [phone] documented as of this encounter Visit Diagnoses Diagnosis Anxiety Anxiety state, unspecified documented in this encounter Additional Health Concerns Assessment Noted Time PHQ-9 Depression Total Score: 21 023 9:24 AM EDT documented as of this encounter Care Teams Dowel Pointer Relationship Specialty Start Date End Date Dory Ray MD [address] [place], [place] [phone] PCP - General Family Medicine 01/03/19 Le Us 10/30/24 11/05/24 Jeane Lemons Director Maternal ChildSales Correspondence Clerk 11/09/23 documented as of this encounter
--- OUTSIDE RECORDS SUMMARY | 2024-12-28 11:56 | XMS_ITS | Encounter Summary ---
Author Organization [employer] Address [address] [place] [address] [address]t [place] [address] Care Team Providers Care Fisher Eel Name Role Phone Dory Ray MD Primary Care Provide r Le Us Unavailable Reason for Visit * Reason Onset Date Comments PA 07/29/2022 Encounter Details Date Type Department Care Team ([facility] st Contact Info) Description 07/29/2022 Telephone [facility] [address] [place] [address] Dory Ray MD [address] [place] [address] PA Social History Tobacco Use Types Packs/Day [...] Description 01/09/2025 10:45 AM EDT Office Visit [facility] [address] [place] [address] Dory Ray MD [address] [place] [address] 03/22/2025 10:30 AM EST Office Visit [facility] [address] [place] [address] Nathalia Allan, OD [address] [place] [address] documented as of this encounter Visit Diagnoses Not on filedocumented in this encounter Care Teams Fisher Eel Relationship Specialty Start Date End Date Dory Rya MD 230 [place] [address] PCP - General Family Medicine 01/03/19 Le Us 10/30/24 11/05/24 Jeane Lemons Fence RepairmanSample Tester Grinder 11/09/23 documented as of this encounter
--- OUTSIDE RECORDS SUMMARY | 2024-12-28 11:56 | XMS_ITS | Encounter Summary ---
Author Organization [employer] Address [address] [facility] [address]t [place] [address] Care Team Providers Care Fitter Up Name Role Phone Dory Ray MD Primary Care Provide r Le Us Unavailable Encounter Details Date Type Department Care Team ([facility] st Contact Info) Description 01/12/2023 Abstract [facility] [address] [place], [place] [phone] Dory Ray MD 230 [place], [place] [phone] Social History Tobacco Use Types Packs/Day Years [...] Description 01/09/2025 10:45 AM EDT Office Visit [facility] [address] [place] [address] Dory Ray MD [address] [place] [address] 03/22/2025 10:30 AM EST Office Visit [facility] [address] [place] [address] Jerrell, Nathalia, OD [address] [place] [address] documented as of this encounter Visit Diagnoses Not on filedocumented in this encounter Additional Health Concerns Assessment Noted Time PHQ-9 Depression Total Score: 24 023 9:07 AM EDT documented as of this encounter Care Teams Fitter Up Relationship Specialty Start Date End Date Dory Ray MD [address] [place] [address] PCP - General Family Medicine 01/03/19 Le Us 10/30/24 11/05/24 Jeane Lemons Manager TherapyServomechanism Assembler 11/09/23 documented as of this encounter
--- OUTSIDE RECORDS SUMMARY | 2024-12-28 11:56 | XMS_ITS | Encounter Summary ---
Author Organization [employer] Address [address] [place] [address] 7 [place] [address] Care Team Providers Care Route Inspector Name Role Phone Dory Ray MD Primary Care Provide r Le Us Unavailable Reason for Visit * Reason Onset Date Comments antibiotic 12/09/2022 Encounter Details Date Type Department Care Team ([facility] st Contact Info) Description 12/09/2022 Telephone [facility] [address] [place] [address] Dashawn Garcia DDS [address] [place], [place] [phone] antibiotic Social History Tobacco Use Types Packs/Day [...] encounter Miscellaneous Notes * Telephone Encounter - Maglaie Cobian - 12/10/2022 9:55 AM EDT Patient called back in again today looking for antibiotic and pain medication. She called in after 6 on 12/09 to speak to director of pediatric rehabilitation and nothing was sent to pharmacy director of pediatric rehabilitation side either. Can something be sent to [...] she can call back and speak to director of pediatric rehabilitation Or go to the emergency room. Patient understood DR documented in this encounter Plan of Treatment Upcoming Encounters Date Type Department Care Team (Late st Contact Info) Description 01/09/2025 10:45 AM EDT Office Visit [facility] [address] [place] [address] Dory Ray MD [address] [place] [address] 03/22/2025 10:30 AM EST Office Visit [facility] OPTOMETRY [address] [place] [address] Jerrell, Nathalia, OD [address] [place] [address] documented as of this encounter Visit Diagnoses Not on filedocumented in this encounter Additional Health Concerns Assessment Noted Time PHQ-9 Depression Total Score: 21 023 9:24 AM EDT documented as of this encounter Care Teams Route Inspector Relationship Specialty Start Date End Date Dory Ray MD [address] [place] [address] PCP - General Family Medicine 01/03/19 Le Us 10/30/24 11/05/24 Jeane Lemons Production Support SupervisorPrice Clerk 11/09/23 documented as of this encounter
--- OUTSIDE RECORDS SUMMARY | 2024-12-28 11:56 | XMS_ITS | Encounter Summary ---
Author Organization [employer] Address [address] [place] [address] 7 [place] [address] Care Team Providers Care Digital Sales Executive Name Role Phone Dory Ray MD Primary Care Provide r Le Us Unavailable Reason for Visit * Reason Comments Med Refill Encounter Details Date Type Department Care Team ([facility] st Contact Info) Description 08/17/2024 Refill [facility] [address] [place] [address] Dory Ray MD 230 [place], [place] [phone] Generalized anxiety disorder Social History Tobacco Use [...] the past 12 months, has t he [employer], gas, oil or water [employer] threatened to shut off services in your [...] Description 01/09/2025 10:45 AM EDT Office Visit [facility] MED[facility] [address] [place] [address] Dory Ray MD [address] [place] [address] 03/22/2025 10:30 AM EST Office Visit [facility] OPTOMETRY [address] [place] [address] Nathalia Allan, OD 230 [place] [address] documented as of this encounter Goals Goal [...] documented as of this encounter Care Teams Digital Sales Executive Relationship Specialty Start Date End Date Dory Ray MD 230 [place] [address] PCP - General Family Medicine 01/03/19 Le Us 10/30/24 11/05/24 Jeane Lemons Ems DriverResistance Welding Machine Operator 11/09/23 documented as of this encounter
--- OUTSIDE RECORDS SUMMARY | 2024-12-28 11:56 | XMS_ITS | Encounter Summary ---
Author Organization [employer] Address [address] [place] [address] 7 [place] [address] Care Team Providers Care Mash Filter Operator Name Role Phone Dory Ray MD Primary Care Provide r Le Us Unavailable Reason for Visit * Reason Comments Med Change Request Encounter Details Date Type Department Care Team ([facility] st Contact Info) Description 08/01/2024 Refill [facility] MEDICINE [address] [place] [address] Dory Ray MD [address] [place] [address] Social History Tobacco Use Types Packs/Day Years [...] the past 12 months, has t he [employer], gas, oil or water company threatened to [...] 01/09/2025 10:45 AM EDT Office Visit [facility] MEDICINE [address] [place] [address] Dory Ray MD [address] [place] [address] 03/22/2025 10:30 AM EST Office Visit [facility] OPTOMETRY [address] [place] [address] Nathalia Allan, OD [address] [place] [address] documented as of this encounter Goals Goal [...] documented as of this encounter Care Teams Mash Filter Operator Relationship Specialty Start Date End Date Dory Ray MD [address] [place] [address] PCP - General Family Medicine 01/03/19 Le Us 10/30/24 11/05/24 Jeane Lemons BusserBeef Cattle Farm Manager 11/09/23 documented as of this encounter
--- OUTSIDE RECORDS SUMMARY | 2024-12-28 11:56 | XMS_ITS | Encounter Summary ---
Author Organization [employer] Address [address] 7t [place] [address] Care Team Providers Care Director Of Creative Services Name Role Phone Dory Ray MD Primary Care Provide r Le Us Unavailable Reason for Visit * Reason Comments Med Refill Encounter Details Date Type Department Care Team ([facility] st Contact Info) Description 05/20/2023 Refill [facility] MED[facility] [address] [place] [address] Dory Ray MD [address] [place], [place] [phone] Chronic pain syndrome Social History Tobacco Use [...] Description 01/09/2025 10:45 AM EDT Office Visit [facility] MEDIC[facility] [address] [place] [address] Dory Ray MD [address] [place] [address] 03/22/2025 10:30 AM EST Office Visit [facility] OPTOMETRY [address] [place] [address] Jerrell, Nathalia, OD 230 [place] [address] documented as of this encounter Goals Goal [...] of this encounter Care Teams Director Of Creative Services Relationship Specialty Start Date End Date Dory Ray MD [address] [place] [address] PCP - General Family Medicine 01/03/19 Le Us 10/30/24 11/05/24 Jeane Lemons Warehouse Stock ClerkPerinatology Physician 11/09/23 documented as of this encounter
--- OUTSIDE RECORDS SUMMARY | 2024-12-28 11:56 | XMS_ITS | Encounter Summary ---
Author Organization [employer] Address [address] [place] [address] 7t [place] [address] Care Team Providers Care Wet Room Supervisor Name Role Phone Dory Ray MD Primary Care Provide r Le Us Unavailable Reason for Visit * Reason Onset Date Comments Nurse Triage 10/11/2022 Encounter Details Date Type Department Care Team ([facility] st Contact Info) Description 10/11/2022 Telephone [facility] MEDICINE 230 [place] [address] Dory Ray MD [address] [place] [address] Nurse Triage Social History Tobacco Use Types [...] 10/11/2022 11:39 AM EDT Triage call with [employer] shorts sifter [place] [id number] Pt calls with numerous concerns but, abdominal [...] accepted this outcome Please contact pt at [phone] (Persian speaker) documented in this encounter Plan of Treatment Upcoming Encounters Date Type Department Care Team (Late st Contact Info) Description 01/09/2025 10:45 AM EDT Office Visit [facility] MEDICINE [address] [place], [place] [phone] Dory Ray MD [address] [place] [address] 03/22/2025 10:30 AM EST Office Visit [facility] OPTOMETRY [address] [place], [place] [phone] Nathalia Allan OD 230 [place] [address] documented as of this encounter Visit Diagnoses Not on filedocumented in this encounter Additional Health Concerns Assessment Noted Time PHQ-9 Depression Total Score: 21 023 9:24 AM EDT documented as of this encounter Care Teams Wet Room Supervisor Relationship Specialty Start Date End Date Dory Ray MD [address] [place] [address] PCP - General Family Medicine 01/03/19 Le Us 10/30/24 11/05/24 Jeane Lemons Rn CorrectionalOutside Plant Engineer 11/09/23 documented as of this encounter
--- OUTSIDE RECORDS SUMMARY | 2024-12-28 11:56 | XMS_ITS | Encounter Summary ---
Author Organization [employer] Address [address] [place] [address] 7 [place] [address] Care Team Providers Care Circulation Clerk Name Role Phone Dory Ray MD Primary Care Provide r Le Us Unavailable Reason for Visit * Reason Comments Med Refill Encounter Details Date Type Department Care Team ([facility] Contact Info) Description 08/05/2022 Refill [facility] MEDICINE [address] [place] [address] [phone] Dory Ray MD [address] [place] [address] [phone] Anxiety Social History Tobacco Use Types Packs/Day [...] Upcoming Encounters Date Type Department Care Team ([facility] Contact Info) Description 01/09/2025 10:45 AM EDT Office Visit [facility] MEDICINE [address] [place] [address] [phone] Dory Ray MD 230 [place], [place] [phone] 03/22/2025 10:30 AM EST Office Visit [facility] OPTOMETRY [address] [place], [place] [phone] Nathalia Allan OD 230 [place], [place] [phone] documented as of this encounter Visit Diagnoses Diagnosis Anxiety Anxiety state, unspecified documented in this encounter Care Teams Circulation Clerk Relationship Specialty Start Date End Date Dory Ray MD 230 [place], [place] [phone] PCP - General Family Medicine 01/03/19 Le Us 10/30/24 11/05/24 Jeane Lemons Plant Breeder ScientistOffice Bookkeeper 11/09/23 documented as of this encounter
--- OUTSIDE RECORDS SUMMARY | 2024-12-28 11:56 | XMS_ITS | Encounter Summary ---
Author Organization [employer] Address [address] [place] [address] 7 [place] [address] Care Team Providers Care Jewelry Casting Model Maker Apprentice Name Role Phone Dory Ray MD Primary Care Provide r Le Us Unavailable Reason for Visit * Reason Comments Med Refill Encounter Details Date Type Department Care Team (Late st Contact Info) Description 04/10/2024 Refill [facility] MEDICINE [address] [place] [address] Dory Ray MD [address] [place], [place] [phone] Chronic right-sided low back pain with right-sided [...] of the following? None of the above;Lead [place] or [place];Pests such as bugs, ants, [...] Description 01/09/2025 10:45 AM EDT Office Visit [facility] MED[facility] [address] [place] [address] Dory Ray MD [address] [place] [address] 03/22/2025 10:30 AM EST Office Visit [facility] OPTOMETRY [address] [place] [address] Nathalia Allan OD 230 [place] [address] documented as of this encounter Goals Goal [...] documented as of this encounter Care Teams Jewelry Casting Model Maker Apprentice Relationship Specialty Start Date End Date Dory Ray MD [address] [place] [phone] PCP - General Family Medicine 01/03/19 Le Us 10/30/24 11/05/24 Jeane Lemons PathologistFlare Stitcher 11/09/23 documented as of this encounter
--- OUTSIDE RECORDS SUMMARY | 2024-12-28 11:56 | XMS_ITS | Encounter Summary ---
Author Organization [employer] Address [address] [facility] 7t [place] [address] Care Team Providers Care Cash Processor Name Role Phone Dory Ray MD Primary Care Provide r Le Us Unavailable Reason for Visit * Reason Comments Med Refill Encounter Details Date Type Department Care Team ([facility] st Contact Info) Description 03/07/2022 Refill [facility] MED[facility]INE [address] [place] [address] Emilia De La Torre, MARIE [address] [place] [address] Fibromyalgia (Primary Dx) Social History Tobacco Use [...] Description 01/09/2025 10:45 AM EDT Office Visit [facility] MED[facility] [address] [place] [address] Dory Ray MD [address] [place] [address] 03/22/2025 10:30 AM EST Office Visit [facility] OPTOMETRY [address] [place] [address] Nathalia Allan OD [address] [place] [address] documented as of this encounter Visit Diagnoses Diagnosis Fibromyalgia- Primary Unspecified myalgia and myositis documented in this encounter Care Teams Cash Processor Relationship Specialty Start Date End Date Dory Ray MD [address] [place] [address] PCP - General Family Medicine 01/03/19 Le Us 10/30/24 11/05/24 Jeane Lemons Public Relations SpecialistSorting Machine Attendant 11/09/23 documented as of this encounter
--- OUTSIDE RECORDS SUMMARY | 2024-12-28 11:56 | XMS_ITS | Encounter Summary ---
Author Organization [employer] Address [address] [place] [address] 7 [place] [address] Care Team Providers Care Traffic Counter Name Role Phone Dory Ray MD Primary Care Provide r Le Us Unavailable Reason for Visit * Reason Comments Med Refill Encounter Details Date Type Department Care Team ([facility] Contact Info) Description 11/26/2022 Refill [facility] [address] [place] [address] NameSoy MD 230 [place] [address] Migraine without status migrainosus, not intractable, unspecified [...] [facility] MED[facility] [address] [place] [address] Dory Ray MD [address] [place], [place] [phone] 03/22/2025 10:30 AM EST Office Visit [facility] OPTOMETRY [address] [place], [place] [phone] Nathalia Allan, MEDINA [address] [place] [address] documented as of this encounter Visit Diagnoses Diagnosis Migraine without status migrainosus, not intractable, unspecified migraine type documented in this encounter Additional Health Concerns Assessment Noted Time PHQ-9 Depression Total Score: 21 023 9:24 AM EDT documented as of this encounter Care Teams Traffic Counter Relationship Specialty Start Date End Date Dory Ray MD 230 [place], [place] [phone] PCP - General Family Medicine 01/03/19 Le Us 10/30/24 11/05/24 Jeane Lemons Bill PeddlerManaged Care Liaison 11/09/23 documented as of this encounter
--- OUTSIDE RECORDS SUMMARY | 2024-12-28 11:56 | XMS_ITS | Encounter Summary ---
Author Organization [employer] Address [address] [place] [address] 7 [place] [address] Care Team Providers Care Television Anchor Name Role Phone Dory Ray MD Primary Care Provide r eL Us Unavailable Reason for Visit * Reason Comments Med Refill Encounter Details Date Type Department Care Team (Late Contact Info) Description 11/16/2022 Refill [facility] MEDICINE [address] [place] [address] Eden Cobb MD [address] [place] [address] [phone] Anxiety Social History Tobacco Use Types Packs/Day [...] 10:45 AM EDT Office Visit [facility] MEDICINE [address] [place] [address] [phone] Dory Ray MD [address] [place], [place] [phone] 03/22/2025 10:30 AM EST Office Visit [facility] OPTOMETRY [address] [place], [place] [phone] Nathalia Allan, MEDINA [address] [place] [address] documented as of this encounter Visit Diagnoses Diagnosis Anxiety Anxiety state, unspecified documented in this encounter Additional Health Concerns Assessment Noted Time PHQ-9 Depression Total Score: 21 023 9:24 AM EDT documented as of this encounter Care Teams Television Anchor Relationship Specialty Start Date End Date Dory Ray MD [address] [place], [place] [phone] PCP - General Family Medicine 01/03/19 Le Us 10/30/24 11/05/24 Jeane Lemons Bindery Machine TenderEtcher Enameling 11/09/23 documented as of this encounter
--- OUTSIDE RECORDS SUMMARY | 2024-12-28 11:56 | XMS_ITS | Encounter Summary ---
Author Organization [employer] Address [address] [place] [address] 7t [place] [address] Care Team Providers Care Dump Truck Driver Name Role Phone Dory Ray MD Primary Care Provide r Le Us Unavailable Reason for Visit * Reason Comments Med Refill Encounter Details Date Type Department Care Team ([facility] Contact Info) Description 10/06/2022 Refill [facility] [address] [place], [place] [phone] Dory aRy MD 230 [place], [place] [phone] Chronic pain syndrome Social History Tobacco Use [...] Upcoming Encounters Date Type Department Care Team ([facility] Contact Info) Description 01/09/2025 10:45 AM EDT Office Visit [facility] MEDICINE [address] [place] [address] [phone] Dory Ray MD [address] [place], [place] [phone] 03/22/2025 10:30 AM EST Office Visit [facility] OPTOMETRY [address] [place], [place] [phone] Nathalia Allan, OD 230 [place], [place] [phone] documented as of this encounter Visit Diagnoses Diagnosis Chronic pain syndrome documented in this encounter Additional Health Concerns Assessment Noted Time PHQ-9 Depression Total Score: 21 023 9:24 AM EDT documented as of this encounter Care Teams Dump Truck Driver Relationship Specialty Start Date End Date Dory Ray MD 230 [place], [place] [phone] PCP - General Family Medicine 01/03/19 Le Us 10/30/24 11/05/24 Jeane Lemons Director UniversitySupervisor Particleboard 11/09/23 documented as of this encounter
--- OUTSIDE RECORDS SUMMARY | 2024-12-28 11:56 | XMS_ITS | Clinical Summary ---
Author Organization [employer] Address [address] [place] [address] [address] [place] [address] Care Team Providers Care Ribbon Cleaner Name Role Phone Dory Ray MD [...] PRN Indication: bulging lumbar disc, fibromyalgia Last CAR PUSHER Agreement: 03/13/24 Additional considerations/risk factors: BZO Tier II (CAR PUSHER visits Q3 months) - last evaluated Mar [...] and non-pharm modalities Continues with COT. See apparel stock checker for urine/pill count. Assessment & Plan (01/10/2024 [...] Marlene agrees to go in person to [facility] to follow up on status of a therapist. She also agrees to follow up in 2 weeks via telehealth for support. She agrees to come in person if needed, to sign a release for me to speak with [facility]. I also recommended acupuncture and discussed [...] Department Care Team Description 12/13/2024 Orders Only [facility] External Provider, [facility] 12/02/2024 Refill [facility] [address] [place] [address] Dory Ray MD Chronic right-sided low back pain with right-sided sciatica 11/26/2024 Refill [facility] [address] [place] [address] Dory Ray MD Essential hypertension 11/14/2024 Results Follow-Up [facility] [address] [place] [address] Dory Ray MD [place] Esophagus Barium Swallow 11/10/2024 Refill [facility] [address] [place] [address] Dory Ray MD Generalized anxiety disorder 11/08/2024 Telephone [facility] [address] [place] [address] Dory Ray MD Appointment Request 11/08/2024 Results Follow-Up [facility] [address] [place] [address] Soft Tissue Neck w/ Contrast 11/06/2024 Refill [facility] [address] [place] [address] Dory Ray MD Chronic right-sided low back pain with right-sided sciatica 11/05/2024 Patient Outreach [facility] [address] [place] [address] Dory Ray MD Care Coordination (Communication to PT assigned CP Coordinator ) 11/02/2024 Telephone [facility] Information Management [address] [place] [address] Cailin Iverson CNP 11/01/2024 1:00 PM EDT Office Visit [address] [address] Cailin Iverson CNP Folliculitis (Primary Dx); Neck mass 11/01/2024 Travel 10/30/2024 Patient Outreach [facility] [address] [place] [address] Dory Ray MD Care Coordination ([facility] ED F/U) 10/30/2024 Patient Outreach [facility] [address] [place] [phone] Dory Ray MD Care Coordination ([facility] C3/Chart review) 10/30/2024 Patient Outreach [address] [address] Dory Ray MD 10/30/[address] [address] Dory Ray MD Chronic right-sided low back pain with right-sided sciatica 10/29/2024 Orders Only GENERIC EXTERNAL DATA DEPARTMENT Provider, Generic External Data 10/17/2024 Results Follow-Up [address] [address] Dory Ray MD XR Hip 2 or 3 Views Left 10/16/2024 Results Follow-Up [facility] [address] [place], [place] [phone] Amber Orozco MD POCT urinalysis dipstick manually resulted, Bacterial Vaginosis Panel, Culture, Urine, Routine 10/16/[address] [address] Dory Ray MD Nurse Triage 10/09/2024 4:00 PM EDT Office Visit [facility] [address] [place] [phone] Amber Orozco MD Vaginal discharge (Primary Dx); Essential hypertension 10/09/2024 Travel 10/09/2024 Telephone [facility] [address] [place] [phone] Dory Ray MD Nurse Triage 10/05/2024 Orders Only GENERIC EXTERNAL DATA DEPARTMENT Provider, Generic External Data 10/04/2024 2:30 PM EDT Office Visit [facility] [address] [place] [phone] Dory Ray MD Dizziness; Palpitations; Dyspnea on exertion; Fibromyalgia; Gastroesophageal reflux disease, unspecified whether esophagitis present; Essential hypertension; Left hip pain; Vascular insufficiency 10/04/[address] [address] Dory Ray MD Essential hypertension 10/04/2024 Travel 10/02/2024 Refill [facility] [address] [place] [address] Dory Ray MD Chronic right-sided low back pain with right-sided sciatica 10/02/[address] [address] Dory Ray MD Nurse Triage from Last [...] [facility] [address] [place] [address] Dory Ray MD [address] [place] [address] 03/22/2025 10:30 AM EST Office Visit [facility] [address] [place] [address] Nathalia Allan, OD [address] [place] [address] Health Maintenance Due Date Last Done Comments [...] EDT) 12/13/2024 12:4 0 PM EDT Narrative [facility] - 12/13/2024 2:13 PM EDT [place] [address] Ultrasound Report Signed Patient: Marelne Hicks MR#: [id number] : 1975 Acct:[id number] Age/Sex: 49 / F ADM Date: 12/13/24 Loc: HO.US Attending Dr: Reyes Otero MD Ordering Physician: Reyes Otero MD Date of Service: 12/13/24 Procedure(s): US arterial duplex BI w/ [place] Accession Number(s): [id number] cc: Dory Ray MD; Reyes Otero MD [...] 12/13/24 1410 DD/ 1240 TD/TT: 12/13/24 1310 Brazing Machine Setter: Procedure Note Donotuseinterpreter, Image - 12/13/2024 [place] [address] Ultrasound Report Signed Patient: Crissy Hicks#: [id number] : 1975Acct:[id number] Age/Sex: 49 / FADM Date: 12/13/24 Loc: . Attending Dr: Reyes Otero MD Ordering Physician: Reyes Otero MD Date of Service: 12/13/24 Procedure(s): US arterial duplex BI w/ [place] Accession Number(s): [id number] cc: Dory Ray MD; Reyes Otero MD [...] 12/13/24 1410 DD/ 1240 TD/TT: 12/13/24 1310 Brazing Machine Setter: [facility] External Provider CV VASC ULAR PROCEDURES Final Result Performing Organization Address City/State/[facility] Co de Phone Number [facility] [address] [place] [address] * [place] Esophagus Barium Swallow (11/14/2024 8:30 AM EDT) Anatomical Region Laterality Modality Head, Neck Radiographic [place] 11/14/2024 8:30 AM EDT Narrative 11/14/2024 9:39 AM EDT [address] [address] Fluoroscopy Report Signed Patient: Marlene Hicks MR#: [id number] : 1975 Acct:[id number] Age/Sex: 49 / F ADM Date: 11/14/24 Loc: CHERRI Attending Dr: Dory Wen MD Ordering Physician: Dory Ray MD Date of Service: 11/14/24 Procedure(s): FL barium swallow Accession Number(s): [id number] cc: Dory Ray MD EXAMINATION: XR BARIUM [...] 11/14/24 0936 DD/ 0830 TD/TT: 11/14/24 0845 Brazing Machine Setter: [facility] Procedure Note Donotuseinterpreter, Image - 11/14/[address] [address] Fluoroscopy Report Signed Patient: Crissy Hicks#: [id number] : 1975Acct:[id number] Age/Sex: 49 / FADM Date: 11/14/24 Loc: HO.XRAY Attending Dr: Dory Wen MD Ordering Physician: Dory Ray MD Date of Service: 11/14/24 Procedure(s): FL barium swallow Accession Number(s): [id number] cc: Dory Ray MD EXAMINATION: XR BARIUM [...] 11/14/24 0936 DD/ 0830 TD/TT: 11/14/24 0845 Brazing Machine Setter: [facility] us Dory Wen MD IMG FLUOROSCOPY PROCE DURES Final Result * CT Soft Tissue Neck w/ Contrast (11/08/2024 8:49 AM EDT) Anatomical Region Laterality Modality Head, Neck Computed Tomogra phy 11/08/2024 8:49 AM EDT Narrative 11/08/2024 9:18 AM EDT [address] [address] [address] Scan Report Signed Patient: Marlene Hicks MR#: [id number] : 1975 Acct:[id number] Age/Sex: 49 / F ADM Date: 11/08/24 Loc: HO.CT Attending Dr: Cailin Iverson TELEPHONE APPOINTMENT CLERK Ordering Physician: Cailin Iverson Date of Service: 11/08/24 Procedure(s): CT soft tissue neck w IV con Accession Number(s): [id number] cc: Dory Ray MD; Cailin Iverson Report Number: [id number]: Total DLP = 216.00 mGy-cm EXAMINATION: CT [...] -Normal. Parapharyngeal Fat Planes: -Normal and undisturbed. Field Administrative Assistant Spaces: -Normal. Anterior Cervical Space: -Normal. No [...] OV> 11/08/[address] DD/ 8 TD/TT: 11/08/24 09 Brazing Machine Setter: Procedure Note Donotuseinterpreter, Image - 11/08/[address] [address] [address] Scan Report Signed Patient: Crissy Hicks#: [id number] : 1975Acct:[id number] Age/Sex: 49 / FADM Date: 11/08/24 Loc: HO.CT Attending Dr: Cailin Iverson TELEPHONE APPOINTMENT CLERK Ordering Physician: Cailin Iverson Date of Service: 11/08/24 Procedure(s): CT soft tissue neck w IV con Accession Number(s): [id number] cc: Dory Ray MD; Cailin Iverson Report Number: [id number]: Total DLP = 216.00 mGy-cm EXAMINATION: CT [...] -Normal. Parapharyngeal Fat Planes: -Normal and undisturbed. Field Administrative Assistant Spaces: -Normal. Anterior Cervical Space: -Normal. No [...] 11/08/24 0914 DD/ 0849 TD/TT: 11/08/24 0900 Brazing Machine Setter: [facility] IMG CT PROCEDURES Final R esult * POCT Rapid Covid-19 BinaxNOW (11/01/2024 1:32 PM EDT) [facility] Rapid COVID Ag Negative QC Media Lot # [id number] Lot# Expiration Date 38,126 Nimo 11/01/2024 1:32 PM EDT [facility] POINT OF CARE TEST ENTER/ EDIT ORDERABLES Final Result * POCT Rapid Influenza B OSOM (11/01/2024 1:32 PM EDT) [facility] Rapid Influenza B Ag Negative Negative, Indeterminate QC Media Lot # [id number] Lot# Expiration Date 1 Swab 11/01/2024 1:32 PM EDT Result [facility] POINT OF CARE TEST ENTER/ EDIT ORDERABLES Final Result * POCT Rapid Influenza A OSOM (11/01/2024 1:32 PM EDT) [facility] Rapid Influenza A Ag Negative Negative, Indeterminate QC Media Lot # [id number] Lot# Expiration Date 1 Swab Nasopharyngeal structure / Unknown 11/01/2024 1:32 PM EDT Result [facility] POINT OF CARE TEST ENTER/ EDIT ORDERABLES Final Result * POCT Rapid Strep A OSOM (11/01/2024 1:32 PM EDT) [facility] Rapid Strep A Screen Negative Negative, None Detected QC Media Lot # [id number] Lot# Expiration Date 32,026 Swab 11/01/2024 1:32 PM EDT Result [facility] POINT OF CARE TEST ENTER/ EDIT ORDERABLES Final Result * (ABNORMAL) CBC auto differential (10/29/2024 11:49 AM EDT) Only the most recent of2 resultswithin the time period is included. [facility] White Blood Count 8.5 4.8 - 10.8 X10*3/uL [facility] Red Blood Count 3.86(L) 4.20 - 5.50 X10*6/uL [facility] Hemoglobin 12.3 12.0 - 16.0 g/dl [facility] Hematocrit 35.6(L) 37.0 - 47.0 % [facility] Mean Corpuscular Volume 92.2 80.0 - 98.0 fL [facility] Mean Corpuscular Hemoglobin 31.9 27.0 - 33.0 pg [facility] Mean Corpuscular HGB Conc 34.6 31.0 - 35.0 g/dl [facility] Red Cell Distribution Width 13.2 11.0 - 16.0 % [facility] Platelet Count 314 160 - 400 X10*3/uL [facility] Mean Platelet Volume 9.1(L) 9.4 - 12.3 fL [facility] Neutrophils Percent Auto 59.8 45 - 73 % [facility] Imm Gran Pct Auto 0.6(H) 0.0 - 0.4 % [facility] Lymphocytes Percent Auto 33.5 20 - 40 % [facility] Monocytes Percent Auto 5.0 2 - 11 % [facility] Eosinophils Percent Auto 0.9 0 - 4 % [facility] Basophils Percent Auto 0.2 0 - 2 % [facility] NRBC Pct Auto 0.0 0.0 - 0.2 /100WBC [facility] Neutrophils Absolute Auto 5.1 2.0 - 8.3 x10*3/uL [facility] Imm Gran Abs Auto 0.05(H) 0.00 - 0.03 X10*3/uL [facility] Lymphocytes Absolute Auto 2.8 1.2 - 4.9 X10*3/uL [facility] Monocytes Absolute Auto 0.4 0.1 - 1.2 X10*3/uL [facility] Eosinophils Absolute Auto 0.1 0.0 - 0.4 X10*3/uL [facility] Basophils Absolute Auto 0.0 0.0 - 0.2 X10*3/uL [facility] NRBC Abs Auto 0.000 0.0 - 0.012 X10*3/uL [facility] 10/29/2024 11:4 9 AM EDT 10/29/2024 12:01 PM EDT us Generic External Data Provider LAB BLOOD ORDERAB LES Final Result [facility] [address] [place] [phone] [phone] * Comprehensive Metabolic Panel (10/29/2024 11:49 AM EDT) Sodium 140 135 - 145 mmol/L [facility] Potassium 3.6 3.3 - 5.1 mmol/L [facility] Chloride 104 96 - 108 mmol/L [facility] Carbon Dioxide 27 22 - 29 mmol/L [facility] Anion Gap 13 12 - 20 [facility] Urea Nitrogen (BUN) 9 9 - 16 mg/dL [facility] Creatinine, Serum 0.81 0.5 - 1.4 mg/dL [facility] Creatinine Clr Calc Pharmacy 80.5 [facility] Comment:Provided height and weight: 162.56 cm,73.1 kg.eGFR (calculated from the MDRD study equation) and eCrCl(calculated from the Cockcroft-Gault equation) are based ondifferent parameters and may not yield comparable results.If eCrCl result is absurd, please check patient'sheight/weight. Estimated Glomerular Filt Rate >60 [facility] Comment:Chronic Kidney Disea se: Estimated GFR < 60 mL/min/1.51f6Aesmdq Kidney Disease: Estimated GFR < 15 mL/min/1.73m2 Glucose 92 60 - 115 mg/dL [facility] Calcium 9.5 8.4 - 10.2 mg/dL [facility] Bilirubin, Total 0.3 0.0 - 1.0 mg/dL [facility] Aspartate Amino Transferase 26 5 - 31 U/L [facility] Alanine Aminotransferase 18 0 - 31 U/L [facility] Total Protein 7.7 6.5 - 8.0 g/dL [facility] Albumin Level 4.7 3.5 - 5.0 g/dL [facility] Alkaline Phosphatase 47 39 - 117 U/L [facility] 10/29/2024 11:4 9 AM EDT 10/29/2024 12:01 PM EDT us Generic External Data Provider LAB BLOOD ORDERAB LES Final Result Performing Organization Address [facility] Co de Phone Number [facility] [address] [place] [address] [phone] * (ABNORMAL) Basic Metabolic Panel (10/17/2024 8:23 AM EDT) Only the most recent of2 resultswithin the time period is included. Sodium 138 135 - 145 mmol/L [facility] Potassium 4.1 3.3 - 5.1 mmol/L [facility] Chloride 104 96 - 108 mmol/L [facility] Carbon Dioxide 28 22 - 29 mmol/L [facility] Anion Gap 10(L) 12 - 20 [facility] Urea Nitrogen (BUN) 11 9 - 16 mg/dL [facility] Creatinine, Serum 0.76 0.5 - 1.4 mg/dL [facility] Estimated Glomerular Filt Rate >60 [facility] Comment:Chronic Kidney Disea se: Estimated GFR < 60 mL/min/1.80z1Prhjtt Kidney Disease: Estimated GFR < 15 mL/min/1.73m2 Glucose 126(H) 60 - 115 mg/dL [facility] Calcium 9.3 8.4 - 10.2 mg/dL [facility] Blood Venous blood specimen / Unknown 10/17/2024 8:23 AM EDT 10/17/2024 11:09 AM EDT us Amber Orozco MD LAB BLOOD ORDERABLES Final Re sult Performing Organization Address City/[facility]/ZIP Co de Phone Number [facility] [address] [place] [phone] * XR Hip 2 or 3 Views Left (10/17/2024 8:06 AM EDT) Anatomical Region Laterality Modality Lower Extremities, Hip Left Radiograp hic Imaging 10/17/2024 8:06 AM EDT Narrative 10/17/2024 9:20 AM EDT [address] [address] XRay Report Signed Patient: Marlene Hicks MR#: [id number] : 1975 Acct:[id number] Age/Sex: 49 / F ADM Date: 10/17/24 Loc: HO.HHCL Attending Dr: Dory Wen MD Ordering Physician: Dory Ray MD Date of Service: 10/17/24 Procedure(s): XR hip LT min 2V Accession Number(s): [id number] cc: Dory Ray MD EXAMINATION: XR HIP, [...] 10/17/24 0917 DD/ 0806 TD/TT: 10/17/24 0859 Brazing Machine Setter: Procedure Note Donotuseinterpreter, Image - 10/17/[address] [address] XRay Report Signed Patient: Yudith HicksR#: [id number] : 1975Acct:[id number] Age/Sex: 49 / FADM Date: 10/17/24 Loc: HO.HHCL Attending Dr: Dory Wen MD Ordering Physician: Dory Ray MD Date of Service: 10/17/24 Procedure(s): XR hip LT min 2V Accession Number(s): [id number] cc: Dory Ray MD EXAMINATION: XR HIP, [...] 10/17/24 0917 DD/ 5 TD/TT: 10/17/24 0859 Brazing Machine Setter: us Dory Wen MD IMG XR PROCEDURES [...] DETECTION BY PCR NOT DETECTED Not Detect [facility] BACTERIAL VAGINOSIS DETECTION BY PCR NEGATIVE Negative [facility] Comment:The BV organism targ ets [...] DETECTION BY PCR NOT DETECTED Not Detect [facility] Maureen glab krusei PCR NOT DETECTED Not Detect [facility] Swab Vaginal structure / Unknown 10/09/2024 4:16 PM EDT 10/10/2024 12:12 PM EDT Amber Orozco MD LAB MICROBIOLOGY - GENERAL OR DERABLES Final Result Performing Organization Address [facility] Co de Phone Number [facility] [address] [place] [phone] * Culture, Urine, Routine (10/09/2024 4:16 PM EDT) Urine Urine specimen obtained by clean catch procedure / Unknown 10/09/2024 4:16 PM EDT 10/10/2024 12:11 PM EDT Comment:UACC Narrative [facility] - 10/11/2024 11:30 AM EDT Urine Culture No growth. Specimen Source: Urine clean catch Amber Orozco MD LAB MICROBIOLOGY - GENERAL OR DERABLES Final Result Performing Organization Address [facility] Co de Phone Number [facility] [address] [place] [phone] * XR Chest 2 Views (10/05/2024 9:17 PM EDT) Anatomical Region Laterality Modality Chest Radiographic [place] 10/05/2024 9:17 PM EDT Narrative 10/05/2024 9:19 PM EDT [address] [address] XRay Report Signed Patient: Marlene Hicks MR#: [id number] : 1975 Acct:[id number] Age/Sex: 49 / F ADM Date: 10/05/24 Loc: .ED Attending Dr: Ordering Physician: Skye Abad Date of Service: 10/05/24 Procedure(s): XR chest 2V Accession Number(s): [id number] cc: Dory Ray MD; Skye Abad CLINICAL HISTORY: CP 2 view chest x-ray Comparison: CR/MI/SR - XR CHEST 2V - 04/12/24 10:08 EST Findings: The lungs are clear. Normal size heart. No acute fracture. IMPRESSION: 1. No acute findings. This document has been electronically signed by: Luke Yu MD on 10/05/2024 21:17:09 Dictated By: Luke Yu MD Signed By: <Electronically signed by Luke Yu MD in OV> 10/05/242117 DD/ 16 TD/TT: 10/05/242116 Brazing Machine Setter: Procedure Note Donotuseinterpreter, Image - 10/05/2024 [place] [address] XRay Report Signed Patient: Crissy Hicks#: [id number] : 1975Acct:[id number] Age/Sex: 49 / FADM Date: 10/05/24 Loc: .ED Attending Dr: Ordering Physician: Skye Abad Date of Service: 10/05/24 Procedure(s): XR chest 2V Accession Number(s): [id number] cc: Dory Ray MD; Skye Abad CLINICAL HISTORY: CP 2 view chest x-ray Comparison: CR/MI/SR - XR CHEST 2V - 04/12/24 10:08 EST Findings: The lungs are clear. Normal size heart. No acute fracture. IMPRESSION: 1. No acute findings. This document has been electronically signed by: Luke Yu MD on 10/05/2024 21:17:09 Dictated By: Luke Yu MD Signed By: <Electronically signed by Luke Yu MD in OV> 10/05/242117 DD/ 16 TD/TT: 10/05/242116 Brazing Machine Setter: us [facility] External Provider IMG XR PROCEDURES Edited Result - Final * CT Head w/o Contrast (10/05/2024 8:55 PM EDT) Anatomical Region Laterality Modality Head, Neck Computed Tomogra phy 10/05/2024 8:55 PM EDT Narrative 10/05/2024 8:57 PM EDT [address] [address] [address] Scan Report Signed Patient: Marlene Hicks MR#: [id number] : 1975 Acct:[id number] Age/Sex: 49 / F ADM Date: 10/05/24 Loc: HO.ED Attending Dr: Ordering Physician: Skye Abad Date of Service: 10/05/24 Procedure(s): CT head/brain wo IV con Accession Number(s): [id number] cc: Dory Ray MD; Skye Abad Report Number: [id number]: Total DLP = 670.00 mGy-cm CLINICAL HISTORY: [...] in OV> 10/05/242055 DD/ 54 TD/TT: 10/05/242054 Brazing Machine Setter: Procedure Note Donotuseinterpreter, Image - 10/05/[address] [address] [address] Scan Report Signed Patient: Crissy Hicks#: [id number] : 1975Acct:[id number] Age/Sex: 49 / FADM Date: 10/05/24 Loc: HO.ED Attending Dr: Ordering Physician: Skye Abad Date of Service: 10/05/24 Procedure(s): CT head/brain wo IV con Accession Number(s): [id number] cc: Dory Ray MD; Skye Abad Report Number: [id number]: Total DLP = 670.00 mGy-cm CLINICAL HISTORY: [...] in OV> 10/05/242055 DD/ 54 TD/TT: 10/05/242054 Brazing Machine Setter: [facility] External Provider IMG CT PROCEDURES Edited Result - Final * High Sensitivity Troponin I (10/05/2024 8:25 PM EDT) TROPONIN I HIGH SENSITIVITY 4.1 <3.5 - 17.0 ng/L [facility] Comment:The Labright high sens itivity Troponin-I results should beused in conjunction with other diagnostic information suchas ECG, clinical observations and information, and patientsymptoms to aid in the diagnosis of [place]. 10/05/2024 8:25 PM EDT 10/05/2024 8:28 PM EDT us Generic External Data Provider LAB BLOOD ORDERAB LES Final Result Performing Organization Address City/[facility]/ZIP Co de Phone Number [facility] [address] [place] [phone] * TSH with Reflex to Free T4 (10/05/2024 8:25 PM EDT) TSH reflex Free T4 1.96 0.32 - 4.0 uIU/mL [facility] 10/05/2024 8:25 PM EDT 10/05/2024 8:28 PM EDT Generic External Data Provider LAB BLOOD ORDERAB LES Final Result Performing Organization Address [facility] Co de Phone Number [facility] [address] [place] [phone] * SARS-CoV-2 RNA, Influenza A/B, and RSV RNA, Ql NAAT (10/05/2024 8:25 PM EDT) Influenza A PCR NEGATIVE Negative [facility] Influenza B PCR NEGATIVE Negative [facility] Resp Syncy Virus RNA Qual PCR NEGATIVE Negative [facility] SARS COV2 PCR NEGATIVE Negative [facility] Comment:All test results mus t [...] use by authorized laboratories.Testing performed on the [employer] GeneXpert utilizingreal-time RT-PCR.All SARS CoV2 and positive influenza A/B results arereported to [facility]. 10/05/2024 8:25 PM EDT 10/05/2024 8:28 PM EDT us Generic External Data Provider LAB MICROBIOLOGY - GENERAL ORDERABLES Final Result Performing Organization Address [facility] de Phone Number [facility] [address] [place] [phone] * B Type Natriuretic Peptide (BNP) (10/05/2024 8:25 PM EDT) B Type Natriuretic Peptide <10 <100 pg/mL [facility] 10/05/2024 8:25 PM EDT 10/05/2024 8:28 PM EDT Generic External Data Provider LAB BLOOD ORDERAB LES Final Result Performing Organization Address [facility] Phone Number [facility] [address] [place] [phone] * Magnesium (10/05/2024 8:25 PM EDT) Pathologist [facility] Magnesium 2.0 1.6 - 2.6 mg/dL [facility] 10/05/2024 8:25 PM EDT 10/05/2024 8:28 PM EDT Generic External Data Provider LAB BLOOD ORDERAB LES Final Result Performing Organization Address [facility] Co de Phone Number [facility] [address] [place] [phone] * Hepatic Function Panel (10/05/2024 8:25 PM EDT) Bilirubin, Total 0.2 0.0 - 1.0 mg/dL [facility] Bilirubin, Direct <0.2 0.0 - 0.5 mg/dL [facility] Aspartate Amino Transferase 26 5 - 31 U/L [facility] Alanine Aminotransferase 28 0 - 31 U/L [facility] Total Protein 7.7 6.5 - 8.0 g/dL [facility] Albumin Level 4.6 3.5 - 5.0 g/dL [facility] Alkaline Phosphatase 49 39 - 117 U/L [facility] 10/05/2024 8:25 PM EDT 10/05/2024 8:28 PM EDT Generic External Data Provider LAB BLOOD ORDERAB LES Final Result [facility] [address] [place] [address] [phone] * POCT Hemoglobin (10/04/2024 1:39 PM [...] AM EDT Narrative 07/03/2024 5:46 PM EDT [facility] [address] [place] [address] Mammography Report Signed Patient: Marlene Hicks MR#: [id number] : 1975 Acct:[id number] Age/Sex: 48 / F ADM Date: 06/27/24 Loc: HO.MAMMO Attending Dr: Dory Wen MD Ordering Physician: Dory Ray MD Results: 1Negative Date of Service: 06/27/24 Follow Up: 1 Year From Orig inal Mammogram Procedure(s): MM tomosynthesis screening BI Accession Number(s): [id number] cc: Dory Ray MD EXAMINATION: MM SCREENING [...] 07/03/24 1743 DD/ 1145 TD/TT: 06/27/24 1200 Brazing Machine Setter: Procedure Note Donotuseinterpreter, Image - 07/03/2024 [facility] [address] [place] [address] [place] [address] Mammography Report Signed Patient: Crissy Hicks#: [id number] : 1975Acct:[id number] Age/Sex: 48 / FADM Date: 06/27/24 Loc: HO.MAMMO Attending Dr: Dory Wen MD Ordering Physician: Dory Ray MDResults: 1Negative Date of Service: 06/27/24Follow Up: 1 Year From Orig inal Mammogram Procedure(s): MM tomosynthesis screening BI Accession Number(s): [id number] cc: Dory Ray MD EXAMINATION: MM SCREENING [...] 07/03/24 1743 DD/ 1145 TD/TT: 06/27/24 1200 Brazing Machine Setter: us Dory Wen MD IMG BI PROCEDURES Fin al Result * Hepatitis C Ab (06/26/2024 9:38 AM EDT) Hepatitis C Antibody Nonreactive Nonreactive [facility] Comment:Antibodies to HCV no t detected; does not exclude early acuteHCV infection. 06/26/2024 9:38 AM EDT 06/26/2024 9:38 AM EDT us Generic External Data Provider LAB BLOOD ORDERAB LES Final Result Performing Organization Address City/[facility]/ZIP Co de Phone Number [facility] [address] [place] [phone] * HIV-1/2 Antigen and Antibodies, Fourth Generation, with Reflexes (06/26/2024 9:38 AM EDT) Pathologist [facility] HIV AB/AG Nonreactive Nonreactive [facility] Comment:HIV-1 p24 Ag and/or HIV-1/HIV-2 Ab not detected.A test result that is nonreactive does not exclude thepossibility of exposure to or infection with HIV-1 and/orHIV-2. Nonreactive results in this assay for individualswith prior exposure to HIV-1 and/or HIV-2 may be due toantigen and antibody levels that are below the limit ofdetection of this assay.The [employer] HIV Ag/Ab Combo assay result andsupplemental assay results should be interpreted inconjunction with the patient's clinical presentation,history and other laboratory results. If the results areinconsistent with clinical evidence, additional testing issuggested to confirm the result. 06/26/2024 9:38 AM EDT 06/26/2024 9:38 AM EDT us Generic External Data Provider LAB BLOOD ORDERAB LES Final Result Performing Organization Address City/[facility]/ZIP Co de Phone Number [facility] [address] [place] [phone] * HPV mRNA E6/E7 w/Reflex to HPV Genotypes 16, 18/45 (07/19/2023 9:21 AM EDT) Pathologist [facility] HPV nRNA E6/E7 Not Detected Not Detected [facility] Comment:Methodology: Transcr iption-Mediated AmplificationThis assay detects E6/E7 viral messenger RNA (mRNA) from 14high-risk HPV types (16,18,31,33,35,39,45,51,52,56,58,59,66,68).Cervical sources are required for HPV testing.If a vaginal source from a patient who has had atotal hysterectomy with removal of cervix wassubmitted, please contact the testing laboratoryfor alternative testing options.For additional information, please refer [email or web address]/SVV417m9(This link if provided for information/educational purposes only.)THIS TEST WAS PERFORMED AT:[facility] [place] [phone] WONG MD HPV mRNA E6/E7 [facility] HPV 16 RNA [facility] HPV 18/45 RNA [facility] 07/19/2023 9:21 AM EDT 07/20/2023 9:05 AM EDT us Generic External Data Provider LAB CYTOLOGY NEFTALI ROLLINS Final Result [facility] [address] [place] [phone] * (ABNORMAL) Lipid Panel, Standard (06/16/2023 10:01 AM EDT) Triglycerides 107 <150 mg/dL [facility] Comment:Desirable Triglyceri de: less than 150 mg/dLBorderline High Triglyceride 150-199 mg/dLHigh Triglyceride: 200-499 mg/dLVery High Triglyceride: greater than or equal to 5OO mg/dL Cholesterol 191 <200 mg/dL [facility] Comment:Desirable Cholestero l: less than 200 mg/dLBorderline High Cholesterol: 200-239 mg/dLHigh Cholesterol: greater than 239 mg/dL LDL Cholesterol Calculated 137(H) <100 mg/dL [facility] Comment:Desirable LDL: less than 100 mg/dLNear Optimal/Above Optimal LDL: 110- 129 mg/dLBorderline High LDL: 130-159 mg/dLHigh LDL: 160-189 mg/dLVery High LDL: greater than or equal to 190 mg/dL HDL Cholesterol 33(L) >40 mg/dL [facility] Comment:Desirable HDL: great er than 40 mg/dL Note: This HDL assay may give artificially low results in patients with liver disease. Blood Venous blood specimen / Unknown 06/16/2023 10:01 AM EDT 06/16/2023 11:27 AM EDT us Dory Wen MD LAB BLOOD ORDERABLES Final Result [facility] [address] [place] [phone] * Pap Smear (02/21/2023 2:25 PM EST) 02/21/2023 2:25 PM EST 02/22/2023 10:30 AM EST Narrative [facility] - 03/07/2023 8:53 PM EST ----- ------- Name: Marlene Hicks Age/Sex: 47/F : 1975 Unit#: [id number] Attend Dr: Macho Sarkar MD Re02/21/23 Status: DEP REF Location: [facility] Disch: ----- ------- SPEC : [id number] RECD: 02/22/23 STATUS: JELLY FARRELL NUM: [id number] TREVON: 02/21/230406 [facility] DR: Macho Sarkar MD ENTERED: 02/22/23-1217 SP [...] 59, 66, 68) HPV testing performed by [employer] [place], [place]. See reference laboratory portion of the EMR for entire report. Clinical Information LMP: Postmenopausal Previous PAP test: Unknown date/findings Other history: Abnormal uterine and vaginal bleeding. Material Received ThinPrep-Cervical Copies To: Dory Ray MD [address] [place] [address] Macho Sarkar MD [address] [place] [address] DrCarolyn [address] [place] [address] ----- ------- Signed (signature on file) Abbie Saunders MD 03/07/232052 ----- ------- END OF REPORT us Generic External Data Provider LAB CYTOLOGY NEFTALI ROLLINS Final Result [facility] [address] [place] [phone] [phone] * Cologuard?? colon cancer screening (12/27/2022 9:47 AM EDT) Cologuard Result Negative Negative 01/07/20 5:43 PM EDT [facility] (CLIA #:[id number]) Comment: NEGATIVE TEST RESULT. A negative Cologuard [...] (Anum Adan al, N Engl J Med 2014;370(14):4206-6502) The normal value (reference range) for this assay is negative. COLOGUARD RE-SCREENING RECOMMENDATION: Periodic colorectal cancer screening is an important part of preventive healthcare for asymptomatic individuals at average risk for colorectal cancer. Following a negative Cologuard result, the French Cancer Society and U.S. Multi-Society Task Force screening guidelines recommend a Cologuard re-screening interval of 3 years. References: French Cancer Society Guideline for Colorectal Cancer Screening: https://www.cancer.org/cancer/gtlgj-vihqdc-clkggo/qmnxsjarq-ijrpwsyms-bkhwupn/ac s-rec ommendations.html.; Yossi DK, Katja CR, Mona LugoK, Colorectal Cancer Screening: Recommendations for Physicians and Patients from the U.S. Multi-Society Task Force on Colorectal Cancer Screening , Am J Gastroenterology 2017; 112:4291-6040. TEST DESCRIPTION: Composite algorithmic analysis of stool [...] (Anum Adan al, N Engl J Med 2014;370(14):6772-5219.) Cologuard may produce a false negative or [...] can be accessed at the following location: www.[employer]/results. Additional description of the Cologuard test process, warnings and precautions can be found at www.BalaBitogArdianrd.com. Stool specimen (specimen) 12/27/2022 9:47 AM EDT 12/29/2022 7:44 PM EDT Dory Wen MD LAB MOLECULAR DIAGNOS TICS ORDERABLES Final Result [facility] (CLIA #:[id number]) [address] [place] [address], [place] [phone] from Last 3 Months or Most Recently Relevant to Health Maintenance Insurance [facility] C3 Care Teams Ribbon Cleaner Relationship Specialty Start Date End Date Dory Ray MD [address] [place] [phone] PCP - General Family Medicine 01/03/19 Jeane Lemons Energy ProfessionalCapacity Planner 11/09/23
--- OUTSIDE RECORDS SUMMARY | 2024-12-28 11:56 | XMS_ITS | Encounter Summary ---
Author Organization [employer] Address [address] [place] [address] 7 [place] [address] Care Team Providers Care Tools Administrator Name Role Phone Dory Ray MD Primary Care Provide r Le Us Unavailable Reason for Visit * Reason Comments Med Refill Encounter Details Date Type Department Care Team (Late Contact Info) Description 07/20/2022 Refill [facility] [address] [place] [address] Eden Cobb MD [address] [place], [place] [phone] Migraine without status migrainosus, not intractable, unspecified [...] Description 01/09/2025 10:45 AM EDT Office Visit [facility] [address] [place], [place] [phone] Dory Ray MD [address] [place], [place] [phone] 03/22/2025 10:30 AM EST Office Visit [facility]OM[facility] [address] [place], [place] [phone] Nathalia Allan, MEDINA [address] [place] [address] documented as of this encounter Visit Diagnoses Diagnosis Migraine without status migrainosus, not intractable, unspecified migraine type documented in this encounter Care Teams Tools Administrator Relationship Specialty Start Date End Date Dory Ray MD [address] [place], [place] [phone] PCP - General Family Medicine 01/03/19 Le Us 10/30/24 11/05/24 Jeane Lemons Stage DriverFish Butcher 11/09/23 documented as of this encounter
--- OUTSIDE RECORDS SUMMARY | 2024-12-28 11:56 | XMS_ITS | Encounter Summary ---
Author Organization [employer] Address [address] [facility] 7t [place] [address] Care Team Providers Care Geomagnetist Name Role Phone Dory Ray MD Primary Care Provide r Encounter Details Date Type Department Care Team ([facility] st Contact Info) Description 11/08/2024 Results Follow-Up [facility] [address] [place] [address] Cailin Iverson, [facility] [address] [place] [address] CT Soft Tissue Neck w/ Contrast Social [...] Description 01/09/2025 10:45 AM EDT Office Visit [facility] [address] [place] [address] Dory Ray MD [address] [place] [address] 03/22/2025 10:30 AM EST Office Visit [facility] [address] [place] [address] Nathalia Allan OD [address] [place] [address] documented as of this encounter Goals Goal [...] documented as of this encounter Care Teams Geomagnetist Relationship Specialty Start Date End Date Dory Ray MD [address] [place] [phone] PCP - General Family Medicine 01/03/19 Jeane Lemons Print Support SpecialistCommunication Skills Instructor 11/09/23 documented as of this encounter
--- OUTSIDE RECORDS SUMMARY | 2024-12-28 11:56 | XMS_ITS | Encounter Summary ---
Author Organization [employer] Address [address] [facility] 7t [place] [address] Care Team Providers Care Roller Maker Name Role Phone Dory Ray MD Primary Care Provide r Le Us Unavailable Reason for Visit * Reason Comments Med Refill Encounter Details Date Type Department Care Team ([facility] st Contact Info) Description 08/06/2023 Refill [facility] [address] [place] [address] Dory Ray MD [address] [place], [place] [phone] Chronic right-sided low back pain with right-sided [...] Description 01/09/2025 10:45 AM EDT Office Visit [facility] [address] [place] [address] Dory Ray MD [address] [place] [address] 03/22/2025 10:30 AM EST Office Visit [facility] OPTOMET[facility] [address] [place] [address] Nathalia Allan, OD 230 [place] [address] documented as of this encounter Goals Goal [...] documented as of this encounter Care Teams Roller Maker Relationship Specialty Start Date End Date Dory Ray MD [address] [place] [address] PCP - General Family Medicine 01/03/19 Le Us 10/30/24 11/05/24 Jeane Lemons Journeyman MillwrightTerritory Supervisor 11/09/23 documented as of this encounter
--- OUTSIDE RECORDS SUMMARY | 2024-12-28 11:56 | XMS_ITS | Encounter Summary ---
Author Organization [employer] Address [address] [place] [address] 7 [place] [address] Care Team Providers Care Vacuum Worker Name Role Phone Dory Ray MD Primary Care Provide r Le Us Unavailable Reason for Visit * Reason Onset Date Comments Durable Medical Equipment 03/21/2024 Encounter Details Date Type Department Care Team (Late st Contact Info) Description 03/21/2024 Telephone [facility] [address] [place] [address] Dory Ray MD [address] [place] [address] Durable Medical Equipment Social History Tobacco Use [...] of the following? None of the above;Lead [place] or Pipes;Pests such as bugs, ants, or [...] requesting DME for Wipes. Contact pt at [phone] documented in this encounter Plan of Treatment Upcoming Encounters Date Type Department Care Team (Late st Contact Info) Description 01/09/2025 10:45 AM EDT Office Visit [facility] [address] [place] [address] Dory Ray MD [address] [place] [address] 03/22/2025 10:30 AM EST Office Visit [facility] OPTOMET[facility] [address] [place], [place] [phone] Nathalia Allan OD [address] [place] [address] documented as of this encounter Goals Goal [...] documented as of this encounter Care Teams Vacuum Worker Relationship Specialty Start Date End Date Dory Ray MD [address] [place] [address] PCP - General Family Medicine 01/03/19 Le Us 10/30/24 11/05/24 Jeane Lemons Armored Car Guard And DriverReal Estate Sales Supervisor 11/09/23 documented as of this encounter
--- OUTSIDE RECORDS SUMMARY | 2024-12-28 11:56 | XMS_ITS | Encounter Summary ---
Author Organization [employer] Address 75 [facility] 7t [place] [address] Care Team Providers Care Clinical Quality Assurance Associate Name Role Phone Dory Ray MD Primary Care Provide r Le Us Unavailable Reason for Visit * Reason Comments Med Refill Encounter Details Date Type Department Care Team ([facility] st Contact Info) Description 01/17/2023 Refill [facility] [address] [place] [address] Dory Ray MD [address] [place], [place] [phone] Migraine without status migrainosus, not intractable, unspecified [...] 01/09/2025 10:45 AM EDT Office Visit [facility] [address] [place] [address] Dory Ray MD [address] [place] [address] 03/22/2025 10:30 AM EST Office Visit [facility] OPTOMETRY [address] [place] [address] Nathalia Allan, OD [address] [place] [address] documented as of this encounter Visit Diagnoses Diagnosis Migraine without status migrainosus, not intractable, unspecified migraine type Chronic right-sided low back pain with right-sided sciatica documented in this encounter Additional Health Concerns Assessment Noted Time PHQ-9 Depression Total Score: 24 023 9:07 AM EDT documented as of this encounter Care Teams Clinical Quality Assurance Associate Relationship Specialty Start Date End Date Dory Ray MD [address] [place] [phone] PCP - General Family Medicine 01/03/19 Le Us 10/30/24 11/05/24 Jeane Lemons Check Out ClerkManager Pulmonary 11/09/23 documented as of this encounter
--- OUTSIDE RECORDS SUMMARY | 2024-12-28 11:56 | XMS_ITS | Encounter Summary ---
Author Organization [employer] Address [address] [place] [address] 7 [place] [address] Care Team Providers Care Production Machine Computer Operator Name Role Phone Dory Ray MD Primary Care Provide r Le Us Unavailable Reason for Visit * Reason Comments Med Refill Encounter Details Date Type Department Care Team ([facility] st Contact Info) Description 08/23/2023 Refill [facility] [address] [place] [address] Dashawn Garcia DDS [address] [place] [address] Social History Tobacco Use Types Packs/Day Years [...] of the following? None of the above;Lead [address] or Pipes;Pests such as bugs, ants, or [...] 01/09/2025 10:45 AM EDT Office Visit [facility] [address] [place], [place] [phone] Dory Ray MD [address] [place] [address] 03/22/2025 10:30 AM EST Office Visit [facility] [address] [place] [address] Nathalia Allan OD [address] [place] [address] documented as of this encounter Goals Goal [...] documented as of this encounter Care Teams Production Machine Computer Operator Relationship Specialty Start Date End Date Dory Ray MD [address] [place] [address] PCP - General Family Medicine 01/03/19 Le Us 10/30/24 11/05/24 Jeane Lemons Division Order AnalystRadio Division Officer 11/09/23 documented as of this encounter
--- OUTSIDE RECORDS SUMMARY | 2024-12-28 11:56 | XMS_ITS | Encounter Summary ---
Author Organization [employer] Address [address] [place] [address] 7 [place] [address] Care Team Providers Care Daycare Manager Name Role Phone Dory Ray MD Primary Care Provide r Le Us Unavailable Reason for Visit * Reason Comments Med Refill Encounter Details Date Type Department Care Team (Late st Contact Info) Description 03/19/[address] [facility] [address] [place] [address] Dory Ray MD [address] [place] [address] Essential hypertension Social History Tobacco Use Types [...] of the following? None of the above;Lead [place] or Pipes;Pests such as bugs, ants, or [...] 10:45 AM EDT Office Visit [facility] [address] [place] [address] Dory Ray MD [address] [place] [address] 03/22/2025 10:30 AM EST Office Visit [facility] OPTOMET[facility] [address] [place] [address] Nathalia Allan OD [address] [place] [address] documented as of this encounter Goals Goal [...] documented as of this encounter Care Teams Daycare Manager Relationship Specialty Start Date End Date Dory Ray MD [address] [place] [address] PCP - General Family Medicine 01/03/19 Le Us 10/30/24 11/05/24 Jeane Lemons Territory Sales Manager MedicalDispensary Technician 11/09/23 documented as of this encounter
--- OUTSIDE RECORDS SUMMARY | 2024-12-28 11:56 | XMS_ITS | Encounter Summary ---
Author Organization [employer] Address [address] [facility] 7t [place] [address] Care Team Providers Care Standards Analyst Name Role Phone Dory Ray MD Primary Care Provide r Le Us Unavailable Reason for Visit * Reason Comments Med Refill Encounter Details Date Type Department Care Team (Late st Contact Info) Description 07/29/[address] [facility] [address] [place] [address] Katerine Killian MD [address] [place] [address] Chronic right-sided low back pain with right-sided [...] 01/09/2025 10:45 AM EDT Office [facility] [address] [place] [address] Dory Ray MD [address] [place] [address] 03/22/2025 10:30 AM EST Office Visit [facility] OPTOM[facility] [address] [place] [address] Nathalia Allan, OD [address] [place] [address] documented as of this encounter Goals Goal [...] documented as of this encounter Care Teams Standards Analyst Relationship Specialty Start Date End Date Dory Ray MD 230 [place] [address] PCP - General Family Medicine 01/03/19 Le Us 10/30/24 11/05/24 Jeane Lemons Lipstick MolderWell Logging Captain 11/09/23 documented as of this encounter
--- OUTSIDE RECORDS SUMMARY | 2024-12-28 11:56 | XMS_ITS | Encounter Summary ---
Author Organization [employer] Address [address] [facility] 7t [place] [address] Care Team Providers Care Deckhand Name Role Phone Dory Ray MD Primary Care Provide r Le Us Unavailable Reason for Visit * Reason Comments Med Refill Encounter Details Date Type Department Care Team ([facility] st Contact Info) Description 02/22/2024 Refill [facility] [address] [place] [address] Dory Ray MD [address] [place] [address] Chronic pain syndrome; Anxiety Social History Tobacco [...] of the following? None of the above;Lead [place] or Pipes;Pests such as bugs, ants, or [...] Description 01/09/2025 10:45 AM EDT Office Visit [facility] MED[facility] 230 [place] [address] Dory Ray MD [address] [place] [address] 03/22/2025 10:30 AM EST Office Visit [facility] OPTOMETRY [address] [place] [address] Nathalia Allan OD 230 [place] [address] documented as of this encounter Goals Goal [...] documented as of this encounter Care Teams Deckhand Relationship Specialty Start Date End Date Dory Ray MD [address] [place] [address] PCP - General Family Medicine 01/03/19 Le Us 10/30/24 11/05/24 Jeane Lemons Plant Health Care TechnicianPipe Fitter Marine 11/09/23 documented as of this encounter
--- OUTSIDE RECORDS SUMMARY | 2024-12-28 11:56 | XMS_ITS | Clinical Summary ---
Author Organization [facility] Address [address] [place] [address] Phone Care Team Providers Care Shuttle Route Vehicle Operator Name Role Phone Dory Ray MD [...] Name Administration Dates Next Due Hepatitis B (Wjydhqc-U-Abyji , Recombivax HB-Adult) 19yo and older 01/18/2007,08/24/2006 [...] Luo OTHER SURGICAL HISTORY 09/25/2020 Left PROCEDURE: DC NEUROPLASTY &/TRANSPOSITION ULNAR NERVE ELBOW; COMMENT: Submuscular Transposition, Dr. Luo OTHER SURGICAL HISTORY 04/14/2012 Left PROCEDURE: DC DCMPRN FASCT F/ARM&WRST FLXR/XTNSR W/O DBRDMT; COMMENT: 1st [place] Compartment/De Quervain's Release, Dr. Luo Medical History [...] Recently Relevant to Health Maintenance Care Teams Shuttle Route Vehicle Operator Relationship Specialty Start Date End Date Dory Ray MD [address] [place] [phone] PCP - General Internal Medicine 12/30/20
--- OUTSIDE RECORDS SUMMARY | 2024-12-28 11:56 | XMS_ITS | Encounter Summary ---
Author Organization [employer] Address [address] [place] [address] 7 [place] [address] Care Team Providers Care Ornamental Plaster Sticker Name Role Phone Dory Ray MD Primary Care Provide r Le Us Unavailable Reason for Visit * Reason Comments Med Refill Encounter Details Date Type Department Care Team (Late st Contact Info) Description 09/06/2024 Refill [facility] [address] [place] [address] Dory Ray MD [address] [place] [address] Chronic right-sided low back pain with right-sided [...] 01/09/2025 10:45 AM EDT Office Visit [facility] [address] [place] [address] Dory Ray MD [address] [place] [address] 03/22/2025 10:30 AM EST Office Visit [facility] OPTOMETRY [address] [place] [address] Nathalia Allan, MEDINA 230 [place] [address] documented as of this encounter Goals Goal [...] documented as of this encounter Care Teams Ornamental Plaster Sticker Relationship Specialty Start Date End Date Dory Ray MD [address] [place] [address] PCP - General Family Medicine 01/03/19 Le Us 10/30/24 11/05/24 Jeane Lemons Senior Infrastructure EngineerPrecision Honing Machine Operator 11/09/23 documented as of this encounter
--- OUTSIDE RECORDS SUMMARY | 2024-12-28 11:56 | XMS_ITS | Encounter Summary ---
Author Organization [employer] Address [address] [facility] 7t [place] [address] Care Team Providers Care Pilot Plant Operator Helper Name Role Phone Dory Ray MD Primary Care Provide r Le Us Unavailable Encounter Details Date Type Department Care Team ([facility] st Contact Info) Description 01/12/2023 Abstract [facility] MEDICINE [address] [place], [place] [phone] Dory Ray MD [address] [place], [place] [phone] Social History Tobacco Use Types Packs/Day Years [...] 10:45 AM EDT Office Visit [facility] MED[facility] [address] [place] [address] Dory Ray MD [address] [place] [address] 03/22/2025 10:30 AM EST Office Visit [facility] OPTOMETRY [address] [place] [address] Jerrell, Nathalia, OD [address] [place] [address] documented as of this encounter Visit Diagnoses Not on filedocumented in this encounter Additional Health Concerns Assessment Noted Time PHQ-9 Depression Total Score: 24 023 9:07 AM EDT documented as of this encounter Care Teams Pilot Plant Operator Helper Relationship Specialty Start Date End Date Dory Ray MD [address] [place] [address] PCP - General Family Medicine 01/03/19 Le Us 10/30/24 11/05/24 Jeane Lemons Chief DispatcherGasoline Dragline Operator 11/09/23 documented as of this encounter
--- OUTSIDE RECORDS SUMMARY | 2024-12-28 11:57 | XMS_ITS | Encounter Summary ---
Author Organization [employer] Address [address] [facility] 7t [place] [address] Care Team Providers Care Seniour Insight Manager Name Role Phone Dory Ray MD Primary Care Provide r Le Us Unavailable Reason for Visit * Reason Comments Med Refill Encounter Details Date Type Department Care Team (Late st Contact Info) Description 12/29/2022 Refill [facility] CHC MED & PEDS [address] [place] [address] Sunshine James, [address] [place] [address] Strain of neck muscle, initial encounter; Neck [...] it when needed. Will forward message to [facility] f/u with pt. documented in this encounter Plan of Treatment Upcoming Encounters Date Type Department Care Team (Late st Contact Info) Description 01/09/2025 10:45 AM EDT Office Visit [facility] MEDICINE [address] [place] [address] Dory Ray MD [address] [place] [address] 03/22/2025 10:30 AM EST Office Visit [facility] OPTOMETRY [address] [place] [address] Nathalia Allan, OD [address] [place] [address] documented as of this encounter Visit Diagnoses Diagnosis Strain of neck muscle, initial encounter Neck pain Cervicalgia documented in this encounter Additional Health Concerns Assessment Noted Time PHQ-9 Depression Total Score: 24 023 9:07 AM EDT documented as of this encounter Care Teams Seniour Insight Manager Relationship Specialty Start Date End Date Dory Ray MD [address] [place] [address] PCP - General Family Medicine 01/03/19 Le Us 10/30/24 11/05/24 Jeane Lemons Crusher And Binder OperatorA R Collections Rep 11/09/23 documented as of this encounter
== END 2024-12-28 11:49 | disposition home or self-care (01) ==
LOC: HO.HGI 10:29
PROVIDERS: PCP Internal Medicine; Visit Provider Nurse Practitioner Family
DX: K21.9 Gastro-esophageal reflux disease without esophagitis (principal); R13.14 Dysphagia, pharyngoesophageal phase; R10.13 Epigastric pain
CPT/HCPCS: 99214

== ENCOUNTER → 2024-12-28 10:29 | Outpatient (BNVA) | payer MEDICAID, SELFPAY | PROVIDERS: PCP Internal Medicine; Visit Provider Nurse Practitioner Family | DX: K21.9 Gastro-esophageal reflux disease without esophagitis (principal); R13.14 Dysphagia, pharyngoesophageal phase; R10.13 Epigastric pain | CPT/HCPCS: 99212 ==

== ENCOUNTER 2025-01-02 08:12 | Outpatient (REF) | payer MEDICAID, SELFPAY ==
--- NOTE | ~2025-01-02 | XR_ITS ---
EXAMINATION: XR SOFT TISSUE NECK CLINICAL INDICATION: K22.2 - Esophageal obstruction; dorsolaterally of left neck pain x5 months, worsening. COMPARISON: 60 CT soft tissue neck 11/08/2024. TECHNIQUE: 2 views of the soft tissue neck were obtained. FINDINGS: Soft tissue films of the neck demonstrate a normal larynx, pharynx and upper trachea. Normal epiglottis and soft palate. No soft tissue swelling or opaque foreign body is demonstrated. Bony structures appear grossly normal. Imaged lung apices are clear. XR/XR soft tissue neck IMPRESSION: Normal examination. Electronically signed by: Michael Dhillon MD 01/02/2025 09:02 AM EDT
--- OUTSIDE RECORDS SUMMARY | 2025-01-02 08:33 | XMS_ITS | Encounter Summary ---
Author Organization [employer] Address 75 [facility] 7t [place] [address] Care Team Providers Care Polishing Machine Tender Name Role Phone Dory Ray MD Primary Care Provide r Le Us Unavailable Encounter Details Date Type Department Care Team ([facility] Contact Info) Description 04/07/2022 Orders Only [facility] MEDICINE [address] [place] [address] Rohini Middleton MD [address] [place] [address] [phone] Pain (Primary Dx) Social History Tobacco Use [...] Upcoming Encounters Date Type Department Care Team ([facility] Contact Info) Description 01/09/2025 10:45 AM EDT Office Visit [facility] MEDICINE [address] [place] [address] Dory Ray MD 230 [place], [place] [phone] 03/22/2025 10:30 AM EST Office Visit [facility] OPTOMETRY [address] [place], [place] [phone] Nathalia Allan, OD 230 [place], [place] [phone] documented as of this encounter Visit Diagnoses Diagnosis Pain- Primary Generalized pain documented in this encounter Care Teams Polishing Machine Tender Relationship Specialty Start Date End Date Dory Ray MD [address] [place], [place] [phone] PCP - General Family Medicine 01/03/19 Le Us 10/30/24 11/05/24 Jeane Lemons Finished Stock InspectorMarketing/Sales Person 11/09/23 documented as of this encounter
--- OUTSIDE RECORDS SUMMARY | 2025-01-02 08:33 | XMS_ITS | Encounter Summary ---
Author Organization [employer] Address [address] [place] [address] 7t [place] [address] Care Team Providers Care Cleaner Carpet And Upholstery Name Role Phone Dory Ray MD Primary Care Provide r Le Us Unavailable Reason for Visit * Reason Onset Date Comments requesting call back 03/24/2022 Encounter Details Date Type Department Care Team ([facility] st Contact Info) Description 03/24/2022 Telephone [facility] MEDICINE [address] [place] [address] Dory Ray MD [address] [place] [address] requesting call back Social History Tobacco Use [...] pt returning call Please contact pt at [phone] documented in this encounter Plan of Treatment Upcoming Encounters Date Type Department Care Team (Late st Contact Info) Description 01/09/2025 10:45 AM EDT Office Visit [facility] MEDICINE [address] [place] [address] Dory Ray MD [address] [place] [address] 03/22/2025 10:30 AM EST Office Visit [facility] OPTOMETRY [address] [place] [address] Nathalia Allan OD [address] [place] [address] documented as of this encounter Visit Diagnoses Not on filedocumented in this encounter Care Teams Cleaner Carpet And Upholstery Relationship Specialty Start Date End Date Dory Ray MD 230 [place] [address] PCP - General Family Medicine 01/03/19 Le Us 10/30/24 11/05/24 Jeane Lemons Cyanide Pot HardenerMaintenance Associate 11/09/23 documented as of this encounter
--- OUTSIDE RECORDS SUMMARY | 2025-01-02 08:33 | XMS_ITS | Encounter Summary ---
Author Organization [employer] Address [address] [place] [address] 7 [place] [address] Care Team Providers Care Feed House Supervisor Name Role Phone Dory Ray MD Primary Care Provide r Le Us Unavailable Reason for Visit * Reason Comments Med Refill Encounter Details Date Type Department Care Team (Late Contact Info) Description 06/22/2022 Refill [facility] MEDICINE [address] [place] [phone] NameSoy MD [address] [place] [phone] Recurrent major depressive episodes, moderate (CMS/HCC); Migraine [...] Description 01/09/2025 10:45 AM EDT Office Visit [facility] MEDICINE [address] [place] [address] [phone] Dory Ray MD 230 [place], [place] [phone] 03/22/2025 10:30 AM EST Office Visit [facility] OPTOMETRY [address] [place], [place] [phone] Nathalia Allan, MEDINA 230 [place], [place] [phone] documented as of this encounter Visit Diagnoses Diagnosis Recurrent major depressive episodes, moderate (CMS/HCC) (HCC) Major depressive disorder, recurrent episode, moderate Migraine without status migrainosus, not intractable, unspecified migraine type documented in this encounter Care Teams Feed House Supervisor Relationship Specialty Start Date End Date Dory Ray MD 230 [place], [place] [phone] PCP - General Family Medicine 01/03/19 Le Us 10/30/24 11/05/24 Jeane Lemons Farm PlannerViticulturist 11/09/23 documented as of this encounter
--- OUTSIDE RECORDS SUMMARY | 2025-01-02 08:33 | XMS_ITS | Clinical Summary ---
Author Organization [facility] Address [address] [facility] [address] [place] [phone] Phone Care Team Providers Care Hack Driver Name Role Phone MoranJaredRoberts [facility] Primary Care Provider Unavailable Allergies [...] topic Medical Devices Not on file Insurance [facility] C3 ACO [facility] [place] [address] [place] [address] C[place] [employer] [address] [place] [address] [place] [address] [place] [address] [place] [address] [place] [address] [address] C3 ACO [facility] C3 ACO Care Teams Hack Driver Relationship Specialty Start Date End Date CenterJesse MD PCP - General 12/24/21 Additional Source Comments The information contained in this document represents components of the legal health record. It is not the complete legal health record.[facility]
--- OUTSIDE RECORDS SUMMARY | 2025-01-02 08:34 | XMS_ITS | Encounter Summary ---
Author Organization [employer] Address [address] [place] [address] 7 [place] [address] Care Team Providers Care Online Advertising Analyst Name Role Phone Dory Ray MD Primary Care Provide r Le Us Unavailable Reason for Visit * Reason Comments Med Refill Encounter Details Date Type Department Care Team (Late st Contact Info) Description 04/10/2024 Refill [facility] MEDICINE [address] [place] [address] Dory Ray MD 230 [place], [place] [phone] Chronic right-sided low back pain with right-sided [...] with others, in a hotel, in a usp, living outside on the street, on a beach, in a car, or in a park 08/19/[address] you li ve. Do you have problems with any of the following? None of the above;Lead [place] or Pipes;Pests such as bugs, ants, or [...] Description 01/09/2025 10:45 AM EDT Office Visit [facility] MEDICINE [address] [place] [address] Dory Ray MD [address] [place] [address] 03/22/2025 10:30 AM EST Office Visit [facility] OPTOMETRY [address] [place] [address] Nathalia Allan OD [address] [place] [address] documented as of this encounter Goals Goal [...] documented as of this encounter Care Teams Online Advertising Analyst Relationship Specialty Start Date End Date Dory Ray MD [address] [place] [address] PCP - General Family Medicine 01/03/19 Le Us 10/30/24 11/05/24 Jeane Lemons Potato Chip Sacking Machine OperatorMotorcycle Builder 11/09/23 documented as of this encounter
--- OUTSIDE RECORDS SUMMARY | 2025-01-02 08:34 | XMS_ITS | Encounter Summary ---
Author Organization [employer] Address [address] [place] [address] 7 [place] [address] Care Team Providers Care Model Engine Mechanic Name Role Phone Dory Ray MD Primary Care Provide r Le Us Unavailable Reason for Visit * Reason Comments Med Refill Encounter Details Date Type Department Care Team ([facility] Contact Info) Description 08/05/2022 Refill [facility] MEDICINE [address] [place] [address] [phone] Dory Ray MD [address] [place] [address] [phone] Anxiety Social History Tobacco Use Types Packs/Day [...] [facility] Contact Info) Description 01/09/2025 10:45 AM EDT Office Visit [facility] MEDICINE [address] [place] [address] [phone] Dory Ray MD 230 [place], [place] [phone] 03/22/2025 10:30 AM EST Office Visit [facility] OPTOMETRY [address] [place], [place] [phone] Nathalia Allan OD [address] [place], [place] [phone] documented as of this encounter Visit Diagnoses Diagnosis Anxiety Anxiety state, unspecified documented in this encounter Care Teams Model Engine Mechanic Relationship Specialty Start Date End Date Dory Ray MD 230 [place], [place] [phone] PCP - General Family Medicine 01/03/19 Le Us 10/30/24 11/05/24 Jeane Lemons Paper Coating SupervisorPumper Gauger 11/09/23 documented as of this encounter
--- OUTSIDE RECORDS SUMMARY | 2025-01-02 08:34 | XMS_ITS | Encounter Summary ---
Author Organization [employer] Address [address] [place] [address] 7 [place] [address] Care Team Providers Care Returned Goods Repairer Name Role Phone Dory Ray MD Primary Care Provide r Le Us Unavailable Reason for Visit * Reason Comments Med Refill Encounter Details Date Type Department Care Team (Late st Contact Info) Description 03/19/2024 Refill [facility] MEDICINE 230 [place] [address] Dory Ray MD 230 [place] [address] Essential hypertension Social History Tobacco Use Types [...] with others, in a hotel, in a fpc, living outside on the street, on a beach, in a car, or in a park 08/19/[address] you li ve. Do you have problems with any of the following? None of the above;Lead [place] or Pipes;Pests such as bugs, ants, or [...] Description 01/09/2025 10:45 AM EDT Office Visit [facility] MEDICINE [address] [place] [address] Dory Ray MD [address] [place] [address] 03/22/2025 10:30 AM EST Office Visit [facility] OPTOMETRY [address] [place] [address] Nathalia Allan OD [address] [place] [address] documented as of this encounter Goals Goal [...] documented as of this encounter Care Teams Returned Goods Repairer Relationship Specialty Start Date End Date Dory Ray MD [address] [place] [address] PCP - General Family Medicine 01/03/19 Le Us 10/30/24 11/05/24 Jeane Lemons Embedded DeveloperUtility Worker Roller Shop 11/09/23 documented as of this encounter
--- OUTSIDE RECORDS SUMMARY | 2025-01-02 08:34 | XMS_ITS | Encounter Summary ---
Author Organization [employer] Address [address] [facility] 7t [place] [address] Care Team Providers Care Orthophotography Technician Name Role Phone Dory Ray MD Primary Care Provide r Le Us Unavailable Reason for Visit * Reason Comments Med Refill Encounter Details Date Type Department Care Team ([facility] st Contact Info) Description 05/20/2023 Refill [facility] MEDICINE [address] [place] [address] Dory Ray MD 230 [place], [place] [phone] Chronic pain syndrome Social History Tobacco Use [...] 01/09/2025 10:45 AM EDT Office Visit [facility] MEDICINE [address] [place] [address] Dory Ray MD [address] [place] [address] 03/22/2025 10:30 AM EST Office Visit [facility] OPTOMETRY [address] [place] [address] Jerrell, Nathalia, OD [address] [place] [address] documented as of this encounter Goals Goal [...] documented as of this encounter Care Teams Orthophotography Technician Relationship Specialty Start Date End Date Dory Ray MD [address] [place] [address] PCP - General Family Medicine 01/03/19 Le Us 10/30/24 11/05/24 Jeane Lemons Pediatrician Active PracticeClinical Registered Nurse 11/09/23 documented as of this encounter
--- OUTSIDE RECORDS SUMMARY | 2025-01-02 08:34 | XMS_ITS | Encounter Summary ---
Author Organization [employer] Address [address] [place] [address] 7 [place] [address] Care Team Providers Care Turkey Picker Name Role Phone Dory Ray MD Primary Care Provide r Le Us Unavailable Reason for Visit * Reason Comments Med Refill Encounter Details Date Type Department Care Team ([facility] st Contact Info) Description 09/06/2024 Refill [facility] MEDICINE [address] [place] [address] Katerine Killian MD [address] [place] [address] Social History Tobacco Use Types Packs/Day Years [...] Description 01/09/2025 10:45 AM EDT Office Visit [facility] MEDICINE [address] [place] [address] Dory Ray MD [address] [place] [address] 03/22/2025 10:30 AM EST Office Visit [facility] OPTOMETRY [address] [place] [address] Nathalia Allan, OD [address] [place] [address] documented as of this encounter Goals Goal [...] documented as of this encounter Care Teams Turkey Picker Relationship Specialty Start Date End Date Dory Ray MD [address] [place] [address] PCP - General Family Medicine 01/03/19 Le Us 10/30/24 11/05/24 Jeane Lemons Securities Research AnalystBed Teacher 11/09/23 documented as of this encounter
--- OUTSIDE RECORDS SUMMARY | 2025-01-02 08:34 | XMS_ITS | Encounter Summary ---
Author Organization [employer] Address [address] [place] [address] 7 [place] [address] Care Team Providers Care Link Wire Fabric Machine Tender Name Role Phone Dory Ray MD Primary Care Provide r Le Us Unavailable Reason for Visit * Reason Comments Med Refill Encounter Details Date Type Department Care Team (Late Contact Info) Description 07/20/2022 Refill [facility] [address] [place] [address] Eden Cobb MD 230 [place], [place] [phone] Migraine without status migrainosus, not intractable, unspecified [...] Description 01/09/2025 10:45 AM EDT Office Visit [facility] MEDICINE [address] [place], [place] [phone] Dory Ray MD [address] [place], [place] [phone] 03/22/2025 10:30 AM EST Office Visit [facility] OPTOMETRY [address] [place], [place] [phone] Nathalia Allan, MEDINA [address] [place] [address] documented as of this encounter Visit Diagnoses Diagnosis Migraine without status migrainosus, not intractable, unspecified migraine type documented in this encounter Care Teams Link Wire Fabric Machine Tender Relationship Specialty Start Date End Date Dory Ray MD 230 [place], [place] [phone] PCP - General Family Medicine 01/03/19 Le Us 10/30/24 11/05/24 Jeane Lemons Safety DirectorElderly Sitter 11/09/23 documented as of this encounter
--- OUTSIDE RECORDS SUMMARY | 2025-01-02 08:34 | XMS_ITS | Encounter Summary ---
Author Organization [employer] Address [address] [place] [address] 7t [place] [address] Care Team Providers Care Mining And Quarrying Machinery Repairer Name Role Phone Dory Ray MD Primary Care Provide r Le Us Unavailable Reason for Visit * Reason Onset Date Comments PA 07/29/2022 Encounter Details Date Type Department Care Team ([facility] st Contact Info) Description 07/29/2022 Telephone [facility] MEDICINE [address] [place] [address] Dory Ray MD [address] [place] [address] PA Social History Tobacco Use Types Packs/Day [...] [facility] [address] [place] [address] Dory Ray MD [address] [place] [address] 03/22/2025 10:30 AM EST Office Visit [facility] OPTOMETRY [address] [place] [address] Nathalia Allan, OD [address] [place] [address] documented as of this encounter Visit Diagnoses Not on filedocumented in this encounter Care Teams Mining And Quarrying Machinery Repairer Relationship Specialty Start Date End Date Dory Ray MD [address] [place] [address] PCP - General Family Medicine 01/03/19 Le Us 10/30/24 11/05/24 Jeane Lemons Digital PhotographerManager Golf 11/09/23 documented as of this encounter
--- OUTSIDE RECORDS SUMMARY | 2025-01-02 08:34 | XMS_ITS | Encounter Summary ---
Author Organization [employer] Address [address] [place] [address] 7 [place] [address] Care Team Providers Care Safety Coordinator Name Role Phone Dory Ray MD Primary Care Provide r Le Us Unavailable Reason for Visit * Reason Onset Date Comments Durable Medical Equipment 03/21/2024 Encounter Details Date Type Department Care Team (Late st Contact Info) Description 03/21/2024 Telephone [facility] MEDICINE [address] [place] [address] Dory Ray MD [address] [place] [address] Durable Medical Equipment Social History Tobacco Use [...] with others, in a hotel, in a longterm, living outside on the street, on a beach, in a car, or in a park 08/19/[address] you li ve. Do you have problems with any of the following? None of the above;Lead [place] or Pipes;Pests such as bugs, ants, or [...] requesting DME for Wipes. Contact pt at [phone] documented in this encounter Plan of Treatment Upcoming Encounters Date Type Department Care Team (Late st Contact Info) Description 01/09/2025 10:45 AM EDT Office Visit [facility] MEDICINE [address] [place] [address] Dory Ray MD [address] [place] [address] 03/22/2025 10:30 AM EST Office Visit [facility] OPTOMETRY [address] [place], [place] [phone] Nathalia Allan OD [address] [place] [address] documented as of this encounter Goals Goal [...] documented as of this encounter Care Teams Safety Coordinator Relationship Specialty Start Date End Date Dory Ray MD [address] [place] [address] PCP - General Family Medicine 01/03/19 Le Us 10/30/24 11/05/24 Jeane Lemons Deployment ManagerSecondary School Teacher Librarian 11/09/23 documented as of this encounter
--- OUTSIDE RECORDS SUMMARY | 2025-01-02 08:34 | XMS_ITS | Encounter Summary ---
Author Organization [employer] Address 75 [facility] 7t [place] [address] Care Team Providers Care Coin Machine Operator Name Role Phone Dory Ray MD Primary Care Provide r Le Us Unavailable Reason for Visit * Reason Comments Med Refill Encounter Details Date Type Department Care Team ([facility] st Contact Info) Description 03/07/2022 Refill [facility] MEDICINE [address] [place] [address] Emilia De La Torre, MARIE [address] [place] [address] Fibromyalgia (Primary Dx) Social History Tobacco Use [...] . Pt stated will be traveling to [place] on 03/10/22. Last seen on 01/20/22. PCP Dr. Garcia documented in this encounter Plan of Treatment Upcoming Encounters Date Type Department Care Team (Late st Contact Info) Description 01/09/2025 10:45 AM EDT Office Visit [facility] MEDICINE [address] [place] [address] Dory Ray MD [address] [place] [address] 03/22/2025 10:30 AM EST Office Visit [facility] OPTOMETRY [address] [place] [address] Nathalia Allan OD [address] [place] [address] documented as of this encounter Visit Diagnoses Diagnosis Fibromyalgia- Primary Unspecified myalgia and myositis documented in this encounter Care Teams Coin Machine Operator Relationship Specialty Start Date End Date Dory Ray MD [address] [place] [address] PCP - General Family Medicine 01/03/19 Le Us 10/30/24 11/05/24 Jeane Lemons Suit MakerWebsphere Commerce Consultant 11/09/23 documented as of this encounter
--- OUTSIDE RECORDS SUMMARY | 2025-01-02 08:34 | XMS_ITS | Encounter Summary ---
Author Organization [employer] Address [address] [place] [address] 7 [place] [address] Care Team Providers Care Assistant Manager Pt Name Role Phone Dory Ray MD Primary Care Provide r Le Us Unavailable Reason for Visit * Reason Comments Med Refill Encounter Details Date Type Department Care Team (Late st Contact Info) Description 09/06/2024 Refill [facility] MEDICINE [address] [place] [address] Dory Ray MD 230 [place] [address] Chronic right-sided low back pain with right-sided [...] 10:45 AM EDT Office Visit [facility] MEDICINE [address] [place] [address] Dory Ray MD [address] [place] [address] 03/22/2025 10:30 AM EST Office Visit [facility] OPTOMETRY [address] [place] [address] Nathalia Allan, MEDINA [address] [place] [address] documented as of this encounter Goals Goal [...] as of this encounter Care Teams Assistant Manager Pt Relationship Specialty Start Date End Date Dory Ray MD [address] [place] [address] PCP - General Family Medicine 01/03/19 Le Us 10/30/24 11/05/24 Jeane Lemons Technical Assistance ConsultantDinner Cook 11/09/23 documented as of this encounter
--- OUTSIDE RECORDS SUMMARY | 2025-01-02 08:34 | XMS_ITS | Encounter Summary ---
Author Organization [employer] Address [address] [facility] 7t [place] [address] Care Team Providers Care Account Installer Name Role Phone Dory Ray MD Primary Care Provide r Encounter Details Date Type Department Care Team ([facility] st Contact Info) Description 11/08/2024 Results Follow-Up [facility] MEDICINE [address] [place] [address] Cailin Iverson, [facility] [address] [place] [address] CT Soft Tissue Neck w/ Contrast Social [...] 10:45 AM EDT Office Visit [facility] MEDICINE [address] [place] [address] Dory Ray MD 230 [place] [address] 03/22/2025 10:30 AM EST Office Visit [facility] OPTOMETRY [address] [place] [address] Nathalia Allan OD [address] [place] [address] documented as of this encounter Goals Goal [...] documented as of this encounter Care Teams Account Installer Relationship Specialty Start Date End Date Dory Ray MD [address] [place] [address] PCP - General Family Medicine 01/03/19 Jeane Lemons Orchestra MusicianStroke Program Coordinator 11/09/23 documented as of this encounter
--- OUTSIDE RECORDS SUMMARY | 2025-01-02 08:34 | XMS_ITS | Encounter Summary ---
Author Organization [employer] Address [address] [facility] 7t [place] [address] Care Team Providers Care Employment Director Name Role Phone Dory Ray MD Primary Care Provide r Le Us Unavailable Reason for Visit * Reason Comments Med Refill Encounter Details Date Type Department Care Team ([facility] st Contact Info) Description 08/06/2023 Refill [facility] MEDICINE [address] [place] [address] Dory Ray MD 230 [place], [place] [phone] Chronic right-sided low back pain with right-sided [...] Office Visit [facility] MEDICINE 230 [place] [address] Dory Ray MD 230 [place] [address] 03/22/2025 10:30 AM EST Office Visit [facility] OPTOMETRY [address] [place] [address] Nathalia Allan, OD 230 [place] [address] documented as of this encounter Goals Goal [...] documented as of this encounter Care Teams Employment Director Relationship Specialty Start Date End Date Dory Ray MD 230 [place] [address] PCP - General Family Medicine 01/03/19 Le Us 10/30/24 11/05/24 Jeane Lemons Smokehouse WorkerYard Engineer 11/09/23 documented as of this encounter
--- OUTSIDE RECORDS SUMMARY | 2025-01-02 08:35 | XMS_ITS | Encounter Summary ---
Author Organization [employer] Address [address] [place] [address] 7t [place] [address] Care Team Providers Care Staff Pharmacist Name Role Phone Dory Ray MD Primary Care Provide r Le Us Unavailable Reason for Visit * Reason Onset Date Comments Nurse Triage 10/11/2022 Encounter Details Date Type Department Care Team ([facility] st Contact Info) Description 10/11/2022 Telephone [facility] MEDICINE 230 [place] [address] Dory Ray MD 230 [place] [address] Nurse Triage Social History Tobacco Use Types [...] 10/11/2022 11:39 AM EDT Triage call with [employer] stock or delivery clerk ID [id number] Pt calls with numerous concerns but, abdominal [...] discomfort. Advised Pt to come to [facility] to be seen and Pt [...] accepted this outcome Please contact pt at [phone] (Trinidadian speaker) documented in this encounter Plan of Treatment Upcoming Encounters Date Type Department Care Team (Late st Contact Info) Description 01/09/2025 10:45 AM EDT Office Visit [facility] MEDICINE [address] [place], [place] [phone] Dory Ray MD 230 [place] [address] 03/22/2025 10:30 AM EST Office Visit [facility] OPTOMETRY [address] [place], [place] [phone] Nathalia Allan OD 230 [place] [address] documented as of this encounter Visit Diagnoses Not on filedocumented in this encounter Additional Health Concerns Assessment Noted Time PHQ-9 Depression Total Score: 21 023 9:24 AM EDT documented as of this encounter Care Teams Staff Pharmacist Relationship Specialty Start Date End Date Dory Ray MD 230 [place] [address] PCP - General Family Medicine 01/03/19 Le Us 10/30/24 11/05/24 Jeane Lemons Yam CurerDrafter Seismograph 11/09/23 documented as of this encounter
--- OUTSIDE RECORDS SUMMARY | 2025-01-02 08:35 | XMS_ITS | Encounter Summary ---
Author Organization [employer] Address [address] [place] [address] 7 [place] [address] Care Team Providers Care Exercise Instruct Name Role Phone Dory Ray MD Primary Care Provide r Magen Le Unavailable Reason for Visit * Reason Comments Med Refill Encounter Details Date Type Department Care Team ([facility] Contact Info) Description 12/09/2022 Refill [facility] MED[facility]INE [address] [place] [phone] Dory Ray MD 230 [place], [place] [phone] Anxiety Social History Tobacco Use Types Packs/Day [...] [facility] Description 01/09/2025 10:45 AM EDT Office Visit [facility] MEDICINE [address] [place] [address] [phone] Dory Ray MD 230 [place], [place] [phone] 03/22/2025 10:30 AM EST Office Visit [facility] OPTOMETRY [address] [place], [place] [phone] Nathalia Allan, MEDINA 230 [place], [place] [phone] documented as of this encounter Visit Diagnoses Diagnosis Anxiety Anxiety state, unspecified documented in this encounter Additional Health Concerns Assessment Noted Time PHQ-9 Depression Total Score: 21 023 9:24 AM EDT documented as of this encounter Care Teams Exercise Instruct Relationship Specialty Start Date End Date Dory Ray MD 230 [place], [place] [phone] PCP - General Family Medicine 01/03/19 Le Us 10/30/24 11/05/24 Jeane Lemons Advanced Registered NurseSecond Watch Sergeant 11/09/23 documented as of this encounter
--- OUTSIDE RECORDS SUMMARY | 2025-01-02 08:35 | XMS_ITS | Encounter Summary ---
Author Organization [employer] Address [address] [facility] 7 [place] [address] Care Team Providers Care Features Reporter Name Role Phone Dory Ray MD Primary Care Provide r Reason for Visit * Reason Comments Pre-visit Planning SDOH screening compl eted on 05/16/2024 Encounter Details Date Type Department Care Team (Late st Contact Info) Description 01/01/2025 Patient Outreach [facility] MEDICINE [address] [place] [address] Rosa M Herring Pre-visit Planning (SDOH screening completed on 05/16/2024) Social History Tobacco Use Types Packs/Day Years [...] as of this encounter Progress Notes * Rosa M Herring - 01/01/2025 2:34 PM EDT CC Rosa M placed successful outbound call to patient for pre-visit planning. Patient name and confirmed. Patient confirms appt date and time, and has transportation. Biggest concern for appointment at this time is none Patient advised to bring to appointment a photo id and insurance card. Appropriate screenings completed in anticipation of appointment. documented in this encounter Plan of Treatment Upcoming Encounters Date Type Department Care Team (Late st Contact Info) Description 01/09/2025 10:45 AM EDT Office Visit [facility] MEDICINE [address] [place] [address] Dory Ray MD 230 [place] [address] 03/22/2025 10:30 AM EST Office Visit [facility] OPTOMETRY [address] [place] [address] Nathalia Allan, OD 230 [place] [address] documented as of this encounter Goals Goal [...] documented as of this encounter Care Teams Features Reporter Relationship Specialty Start Date End Date Dory Ray MD [address] [place] [address] PCP - General Family Medicine 01/03/19 Jeane Lemons Granulator OperatorTemper Mill Operator 11/09/23 documented as of this encounter
--- OUTSIDE RECORDS SUMMARY | 2025-01-02 08:35 | XMS_ITS | Encounter Summary ---
Author Organization [employer] Address 75 [facility] 7t [place] [address] Care Team Providers Care Nipple Machine Operator Name Role Phone Dory Ray MD Primary Care Provide r Le Us Unavailable Reason for Visit * Reason Comments Med Refill Encounter Details Date Type Department Care Team (Late st Contact Info) Description 07/29/2024 Refill [facility] MEDICINE [address] [place] [address] Katerine Killian MD 230 [place] [address] Chronic right-sided low back pain with right-sided [...] Description 01/09/2025 10:45 AM EDT Office Visit [facility] MEDICINE [address] [place] [address] Dory Ray MD [address] [place] [address] 03/22/2025 10:30 AM EST Office Visit [facility] OPTOMETRY [address] [place] [address] Nathalia Allan, OD 230 [place] [address] documented as of this encounter Goals Goal [...] documented as of this encounter Care Teams Nipple Machine Operator Relationship Specialty Start Date End Date Dory Ray MD 230 [place] [address] PCP - General Family Medicine 01/03/19 Le Us 10/30/24 11/05/24 Jeane Lemons Clay Dry Press OperatorWireworker Supervisor 11/09/23 documented as of this encounter
--- OUTSIDE RECORDS SUMMARY | 2025-01-02 08:35 | XMS_ITS | Encounter Summary ---
Author Organization [employer] Address [address] [place] [address] 7 [place] [address] Care Team Providers Care House Builder Name Role Phone Dory Ray MD Primary Care Provide r Le Us Unavailable Reason for Visit * Reason Onset Date Comments antibiotic 12/09/2022 Encounter Details Date Type Department Care Team ([facility] st Contact Info) Description 12/09/2022 Telephone [facility] ADULT DENTAL 230 [place] [address] Dashawn Garcia DDS 230 [place], [place] [phone] antibiotic Social History Tobacco Use Types Packs/Day [...] after 6 on 12/09 to speak to auctioneer art and nothing was sent to pharmacy auctioneer art side either. Can something be sent to [...] she can call back and speak to auctioneer art Or go to the emergency room. Patient understood DR documented in this encounter Plan of Treatment Upcoming Encounters Date Type Department Care Team (Late st Contact Info) Description 01/09/2025 10:45 AM EDT Office Visit [facility] MEDICINE 230 [place] [address] Dory Ray MD 230 [place] [address] 03/22/2025 10:30 AM EST Office Visit [facility] OPTOMETRY [address] [place] [address] Jerrell, Nathalia, OD 230 [place] [address] documented as of this encounter Visit Diagnoses Not on filedocumented in this encounter Additional Health Concerns Assessment Noted Time PHQ-9 Depression Total Score: 21 023 9:24 AM EDT documented as of this encounter Care Teams House Builder Relationship Specialty Start Date End Date Dory Ray MD [address] [place] [address] PCP - General Family Medicine 01/03/19 Le Us 10/30/24 11/05/24 Jeane Lemons Shactor HelperIndustrial Painter 11/09/23 documented as of this encounter
--- OUTSIDE RECORDS SUMMARY | 2025-01-02 08:35 | XMS_ITS | Encounter Summary ---
Author Organization [employer] Address [address] [facility] 7t [place] [address] Care Team Providers Care Manager Treasury Name Role Phone Dory Ray MD Primary Care Provide r Le Us Unavailable Reason for Visit * Reason Comments Med Refill Encounter Details Date Type Department Care Team ([facility] st Contact Info) Description 01/17/2023 Refill [facility] MEDICINE 230 [place] [address] Dory Ray MD 230 [place], [place] [phone] Migraine without status migrainosus, not intractable, unspecified [...] 10:45 AM EDT Office Visit [facility] MEDICINE [address] [place] [address] Dory Ray MD 230 [place] [address] 03/22/2025 10:30 AM EST Office Visit [facility] OPTOMETRY [address] [place] [address] Nathalia Allan, OD 230 [place] [address] documented as of this encounter Visit Diagnoses Diagnosis Migraine without status migrainosus, not intractable, unspecified migraine type Chronic right-sided low back pain with right-sided sciatica documented in this encounter Additional Health Concerns Assessment Noted Time PHQ-9 Depression Total Score: 24 023 9:07 AM EDT documented as of this encounter Care Teams Manager Treasury Relationship Specialty Start Date End Date Dory Ray MD [address] [place] [address] PCP - General Family Medicine 01/03/19 eL Us 10/30/24 11/05/24 Jeane Lemons Gas Golf Cart RepairerCellar Pumper 11/09/23 documented as of this encounter
--- OUTSIDE RECORDS SUMMARY | 2025-01-02 08:35 | XMS_ITS | Encounter Summary ---
Author Organization [employer] Address [address] [place] [address] 7 [place] [address] Care Team Providers Care Office Bookkeeper Name Role Phone Dory Ray MD Primary Care Provide r Le Us Unavailable Reason for Visit * Reason Comments Med Change Request Encounter Details Date Type Department Care Team ([facility] st Contact Info) Description 08/01/2024 Refill [facility] MEDICINE 230 [place] [address] Dory Ray MD 230 [place] [address] Social History Tobacco Use Types Packs/Day Years [...] the past 12 months, has t he Treatful, gas, oil or water company threatened to [...] Description 01/09/2025 10:45 AM EDT Office Visit [facility] MEDICINE 230 [place] [address] Dory Ray MD 230 [place] [address] 03/22/2025 10:30 AM EST Office Visit [facility] OPTOMETRY [address] [place] [address] Nathalia Allan, OD 230 [place] [address] documented as of this encounter Goals Goal [...] documented as of this encounter Care Teams Office Bookkeeper Relationship Specialty Start Date End Date Dory Ray MD 230 [place] [address] PCP - General Family Medicine 01/03/19 Le Us 10/30/24 11/05/24 Jeane Lemons Emergency Room TechEchocardiograph Tech 11/09/23 documented as of this encounter
--- OUTSIDE RECORDS SUMMARY | 2025-01-02 08:35 | XMS_ITS | Encounter Summary ---
Author Organization [employer] Address [address] [place] [address] 7 [place] [address] Care Team Providers Care Sales Operations Coordinator Name Role Phone Dory Ray MD Primary Care Provide r Le Us Unavailable Reason for Visit * Reason Comments Med Refill Encounter Details Date Type Department Care Team (Late Contact Info) Description 11/16/2022 Refill [facility] MEDICINE [address] [place] [address] Eden Cobb MD [address] [place] [address] [phone] Anxiety Social History Tobacco Use Types Packs/Day [...] Description 01/09/2025 10:45 AM EDT Office Visit [facility] MEDICINE [address] [place] [address] [phone] Dory Ray MD 230 [place], [place] [phone] 03/22/2025 10:30 AM EST Office Visit [facility] OPTOMETRY [address] [place], [place] [phone] Nathalia Allan, MEDINA 230 [place] [address] documented as of this encounter Visit Diagnoses Diagnosis Anxiety Anxiety state, unspecified documented in this encounter Additional Health Concerns Assessment Noted Time PHQ-9 Depression Total Score: 21 023 9:24 AM EDT documented as of this encounter Care Teams Sales Operations Coordinator Relationship Specialty Start Date End Date Dory Ray MD 230 [place], [place] [phone] PCP - General Family Medicine 01/03/19 Le Us 10/30/24 11/05/24 Jeane Lemons Cad DeveloperCredit Assessment Analyst 11/09/23 documented as of this encounter
--- OUTSIDE RECORDS SUMMARY | 2025-01-02 08:35 | XMS_ITS | Encounter Summary ---
Author Organization [employer] Address [address] [facility] 7t [place] [address] Care Team Providers Care Washhouse Hand Name Role Phone Dory Ray MD Primary Care Provide r Reason for Visit * Reason Comments Med Refill Encounter Details Date Type Department Care Team ([facility] st Contact Info) Description 01/01/2025 Refill [facility] MEDICINE 230 [place] [address] Dory Ray MD 230 [place] [address] Chronic right-sided low back pain with right-sided [...] Description 01/09/2025 10:45 AM EDT Office Visit [facility] MEDICINE 230 [place] [address] Dory Ray MD 230 [place] [address] 03/22/2025 10:30 AM EST Office Visit [facility] OPTOMETRY [address] [place] [address] Nathalia Allan, OD 230 [place] [address] documented as of this encounter Goals Goal [...] documented as of this encounter Care Teams Washhouse Hand Relationship Specialty Start Date End Date Dory Ray MD 230 [place] [address] PCP - General Family Medicine 01/03/19 Jeane Lemons Admittance AttendantRf Microwave Engineer 11/09/23 documented as of this encounter
--- OUTSIDE RECORDS SUMMARY | 2025-01-02 08:35 | XMS_ITS | Encounter Summary ---
Author Organization [employer] Address 75 [facility] 7t [place] [address] Care Team Providers Care Soil Tester Name Role Phone Dory Ray MD Primary Care Provide r Le Us Unavailable Reason for Visit * Reason Comments Med Refill Encounter Details Date Type Department Care Team ([facility] st Contact Info) Description 02/22/2024 Refill [facility] MED & PEDS [address] [place] [address] Dory Ray MD 230 [place] [address] Chronic pain syndrome; Anxiety Social History Tobacco [...] of the following? None of the above;Lead [place] or Pipes;Pests such as bugs, ants, or [...] 01/09/2025 10:45 AM EDT Office Visit [facility] MEDICINE 230 [place] [address] Dory Ray MD 230 [place] [address] 03/22/2025 10:30 AM EST Office Visit [facility] OPTOMETRY [address] [place] [address] Nathalia Allan OD [address] [place] [address] documented as of this encounter Goals Goal [...] documented as of this encounter Care Teams Soil Tester Relationship Specialty Start Date End Date Dory Ray MD [address] [place] [address] PCP - General Family Medicine 01/03/19 Le Us 10/30/24 11/05/24 Jeane Lemons Foaming Machine OperatorInjection Wax Molder 11/09/23 documented as of this encounter
--- OUTSIDE RECORDS SUMMARY | 2025-01-02 08:35 | XMS_ITS | Encounter Summary ---
Author Organization [employer] Address [address] [place] [address] 7t [place] [address] Care Team Providers Care Interior Design Teacher Name Role Phone Dory Ray MD Primary Care Provide r Le Us Unavailable Reason for Visit * Reason Comments Med Refill Encounter Details Date Type Department Care Team ([facility] Contact Info) Description 10/06/2022 Refill [facility] MED & PEDS [address] [place], [place] [phone] Dory Ray MD 230 [place], [place] [phone] Chronic pain syndrome Social History Tobacco Use [...] Upcoming Encounters Date Type Department Care Team ([facility] Contact Info) Description 01/09/2025 10:45 AM EDT Office Visit [facility] MEDICINE [address] [place] [address] [phone] Dory Ray MD 230 [place], [place] [phone] 03/22/2025 10:30 AM EST Office Visit [facility] OPTOMETRY [address] [place], [place] [phone] Nathalia Allan, OD 230 [place], [place] [phone] documented as of this encounter Visit Diagnoses Diagnosis Chronic pain syndrome documented in this encounter Additional Health Concerns Assessment Noted Time PHQ-9 Depression Total Score: 21 023 9:24 AM EDT documented as of this encounter Care Teams Interior Design Teacher Relationship Specialty Start Date End Date Dory Ray MD 230 [place], [place] [phone] PCP - General Family Medicine 01/03/19 Le Us 10/30/24 11/05/24 Jeane Lemons Metal Sheet Roller OperatorGeothermal Plant Manager 11/09/23 documented as of this encounter
--- OUTSIDE RECORDS SUMMARY | 2025-01-02 08:35 | XMS_ITS | Encounter Summary ---
Author Organization [employer] Address [address] [place] [address] 7 [place] [address] Care Team Providers Care Manager Internet Name Role Phone Dory Ray MD Primary Care Provide r Le Us Unavailable Reason for Visit * Reason Comments Med Refill Encounter Details Date Type Department Care Team ([facility] Contact Info) Description 11/26/2022 Refill [facility] 230 [place] [address] NameSoy MD 230 [place] [address] Migraine without status migrainosus, not intractable, unspecified [...] Description 01/09/2025 10:45 AM EDT Office Visit [facility] MEDICINE 230 [place] [address] Dory Ray MD 230 [place], [place] [phone] 03/22/2025 10:30 AM EST Office Visit [facility] OPTOMETRY [address] [place], [place] [phone] Nathalia Allan, MEDINA 230 [place] [address] documented as of this encounter Visit Diagnoses Diagnosis Migraine without status migrainosus, not intractable, unspecified migraine type documented in this encounter Additional Health Concerns Assessment Noted Time PHQ-9 Depression Total Score: 21 023 9:24 AM EDT documented as of this encounter Care Teams Manager Internet Relationship Specialty Start Date End Date Dory Ray MD 230 [place], [place] [phone] PCP - General Family Medicine 01/03/19 Le Us 10/30/24 11/05/24 Jeane Lemons Human Resources Hr RepresentativeInorganic Chemistry Teacher 11/09/23 documented as of this encounter
--- OUTSIDE RECORDS SUMMARY | 2025-01-02 08:35 | XMS_ITS | Encounter Summary ---
Author Organization [employer] Address [address] [place] [address] 7 [place] [address] Care Team Providers Care Construction Or Leak Gang Laborer Name Role Phone Dory Ray MD Primary Care Provide r Le Us Unavailable Reason for Visit * Reason Comments Med Refill Encounter Details Date Type Department Care Team ([facility] st Contact Info) Description 08/23/2023 Refill [facility] ADULT DENTAL 230 [place] [address] Dashawn Garcia DDS 230 [place] [address] Social History Tobacco Use Types Packs/Day Years [...] of the following? None of the above;Lead [place] or Pipes;Pests such as bugs, ants, or [...] Description 01/09/2025 10:45 AM EDT Office Visit [facility] MEDICINE 230 [place], [place] [phone] Dory Ray MD 230 [place] [address] 03/22/2025 10:30 AM EST Office Visit [facility] OPTOMETRY [address] [place] [address] Nathalia Allan OD 230 [place] [address] documented as of this encounter Goals Goal [...] as of this encounter Care Teams Construction Or Leak Gang Laborer Relationship Specialty Start Date End Date Dory Ray MD 230 [place] [address] PCP - General Family Medicine 01/03/19 Le Us 10/30/24 11/05/24 Jeane Lemons Restaurant LeadPatient Account Analyst 11/09/23 documented as of this encounter
--- OUTSIDE RECORDS SUMMARY | 2025-01-02 08:35 | XMS_ITS | Encounter Summary ---
Author Organization [employer] Address [address] [place] [address] 7 [place] [address] Care Team Providers Care Networks Computer Consultant Name Role Phone Dory Ray MD Primary Care Provide r Le Us Unavailable Reason for Visit * Reason Comments Med Refill Encounter Details Date Type Department Care Team (Late st Contact Info) Description 04/08/2024 Refill [facility] MEDICINE [address] [place] [address] Dory Ray MD 230 [place] [address] Chronic right-sided low back pain with right-sided [...] with others, in a hotel, in a chcf, living outside on the street, on a beach, in a car, or in a park 08/19/[address] you li ve. Do you have problems with any of the following? None of the above;Lead [place] or Pipes;Pests such as bugs, ants, or [...] Office Visit [facility] MEDICINE [address] [place] [address] Dory Ray MD [address] [place] [address] 03/22/2025 10:30 AM EST Office Visit [facility] OPTOMETRY [address] [place] [address] Nathalia Allan OD [address] [place] [address] documented as of this encounter Goals Goal [...] documented as of this encounter Care Teams Networks Computer Consultant Relationship Specialty Start Date End Date Dory Ray MD [address] [place] [address] PCP - General Family Medicine 01/03/19 Le Us 10/30/24 11/05/24 Jeane Lemons Chemical Laboratory AssistantSchool Patrol 11/09/23 documented as of this encounter
--- OUTSIDE RECORDS SUMMARY | 2025-01-02 08:35 | XMS_ITS | Encounter Summary ---
Author Organization [employer] Address [address] [place] [address] 7 [place] [address] Care Team Providers Care Nuclear Weapons Custodian Name Role Phone Dory Ray MD Primary Care Provide r Le Us Unavailable Reason for Visit * Reason Comments Med Refill Encounter Details Date Type Department Care Team ([facility] st Contact Info) Description 08/17/2024 Refill [facility] [address] [place] [address] Dory Ray MD [address] [place], [place] [phone] Generalized anxiety disorder Social History Tobacco Use [...] the past 12 months, has t he [employer], gas, oil or water [employer] threatened to shut off services in your [...] Description 01/09/2025 10:45 AM EDT Office Visit [facility] [address] [place] [address] Dory Ray MD [address] [place] [address] 03/22/2025 10:30 AM EST Office Visit [facility] [address] [place] [address] Nathalia Allan, OD [address] [place] [address] documented as of this encounter Goals Goal [...] as of this encounter Care Teams Nuclear Weapons Custodian Relationship Specialty Start Date End Date Dory Ray MD [address] [place] [address] PCP - General Family Medicine 01/03/19 Le Us 10/30/24 11/05/24 Jeane Lemons Negative AssemblerMachine Shop Lead Man 11/09/23 documented as of this encounter
--- OUTSIDE RECORDS SUMMARY | 2025-01-02 08:35 | XMS_ITS | Encounter Summary ---
Author Organization [employer] Address [address] [facility] [address] [place] [address] Care Team Providers Care Clin Asst Name Role Phone Dory Ray MD Primary Care Provide r Reason for Visit * Reason Onset Date Comments Care Coordination 12/28/2024 ICP Care Plan Encounter Details Date Type Department Care Team ([facility] st Contact Info) Description 12/28/2024 Telephone [facility] [address] [place] [address] Dory Ray MD [address] [place] [address] Care Coordination ([facility]P Care Plan) Social History Tobacco Use Types Packs/Day Years [...] the past 12 months, has t he [employer], gas, oil or water [employer] threatened to shut off services in your [...] encounter Miscellaneous Notes * Telephone Encounter - Le Us - 12/28/2024 1:06 PM EDT PCP Designee has received and reviewed Care Plan from [facility]: Computer Operator: Jeane Lemons Contact Information: [phone] Care Plan scanned into patient???s EHR and notification sent to PCP. documented in this encounter Plan of Treatment Upcoming Encounters Date Type Department Care Team ([facility] st Contact Info) Description 01/09/2025 10:45 AM EDT Office Visit [facility] [address] [place] [address] Dory Ray MD [address] [place] [address] 03/22/2025 10:30 AM EST Office Visit [facility] OPTOMETRY [address] [place] [address] Nathalia Allan OD [address] [place] [address] documented as of this encounter Goals Goal [...] documented as of this encounter Care Teams Clin Asst Relationship Specialty Start Date End Date Dory Ray MD [address] [place] [address] PCP - General Family Medicine 01/03/19 Jeane Lemons [employer] Sales Consultant 11/09/23 documented as of this encounter
--- OUTSIDE RECORDS SUMMARY | 2025-01-02 08:35 | XMS_ITS | Clinical Summary ---
Author Organization [facility] Address [address] [place] [address] Phone Care Team Providers Care Hearing Dog Trainer Name Role Phone Dory Ray MD Primary [...] 09/20/2011 Fibromyalgia 09/20/2011 Panic attack 09/20/2011 Immunizations Immunization Administration Dates Next Due Hepatitis B (Arnctei-I-Lvijb , Recombivax HB-Adult) 19yo and older 01/18/2007,08/24/2006 [...] FASCT F/ARM&WRST FLXR/XTNSR W/O DBRDMT; COMMENT: 1st Reid Compartment/De Quervain's Release, Dr. Luo Medical History [...] Last Done Comments Breast Cancer Screening 1973 Colorectal Cancer Screening: Colonoscopy 1973 Hepatitis B Vaccines (3 of 3 - 19+ 3-dose series) 03/15/2007 01/18/2007, 08/24/2006 Cervical Cancer Screening: P ap Smear 06/08/2014 06/09/2011 Pneumococcal Vaccine: 50+ Years (2 of 2 - PCV) 04/17/2015 04/17/2014 DTaP,Tdap,and Td Vaccines (2 - Td or Tdap) 12/09/2021 12/10/2011 HIV Screening 03/07/2022 Hepatitis C Screening 03/07/2022 Social Influencers of Health Screening 03/07/2022 Zoster Vaccines (1 of 2) 07/26/2023 Depression Screening 04/04/2024 COVID-19 Vaccine ( - 2023-2 5 season) 2024 Influenza Vaccine (#1) 2024 5, 12/10/2011 RSV Immunization Adult Patients (1 - 1-dose 75+ series) 2048 HIB Vaccines Aged Out No longer eligi [...] smear No interpretation , abstracted Historical Provider MD HEALTH MAINTENANCE Final Result from Last 3 Months or Most Recently Relevant to Health Maintenance Care Teams Hearing Dog Trainer Relationship Specialty Start Date End Date Dory Ray MD [address] [place] [phone] PCP - General Internal Medicine 12/30/20
--- OUTSIDE RECORDS SUMMARY | 2025-01-02 08:35 | XMS_ITS | Clinical Summary ---
Author Organization [employer] Address [address] [place] [address] [address] [place] [address] Care Team Providers Care Alarm Field Technician Name Role Phone Dory Ray MD [...] tabletIndications :Recurrent major depressive episodes, moderate (CMS/HCC) (HCC) TAKE 1 TABLET BY MOUTH EVERY DAY [...] bedtime (pain). 150 g 3 024 Active budesonide-formot kori (Symbicort) 160-4.5 MCG/ACT inhalerIndication s:Asthma-chronic obstructive pulmonary disease overlap syndrome (CMS/HCC) (HCC) Inhale 2 puffs in the morning and [...] tabletIndications :Recurrent major depressive episodes, moderate (CMS/HCC) (HCC) TAKE 1 TABLET BY MOUTH EVERY DAY [...] FOR PAIN 90 tablet 025 2024 Discontinued ibuprofen 800 MG tabletIndications :Chronic right-sided low [...] PRN Indication: bulging lumbar disc, fibromyalgia Last STRATEGIC SOURCING MANAGER Agreement: 03/13/24 Additional considerations/risk factors: BZO Tier II (STRATEGIC SOURCING MANAGER visits Q3 months) - last evaluated [...] and non-pharm modalities Continues with COT. See operations and maintenance technician for urine/pill count. Assessment & Plan (01/10/2024 [...] Asthma-chronic obstructive p ulmonary disease overlap syndrome (CMS/HCC) 03/04/2022 Assessment & Plan (08/15/2024 12:43 PM [...] and therapist Recurrent major depressive episodes, moderate (C MS/HCC) 12/11/2015 Assessment & Plan (05/31/2023 9:59 AM EST): [...] Marlene agrees to go in person to [facility] to follow up on status of a therapist. She also agrees to follow up in 2 weeks via telehealth for support. She agrees to come in person if needed, to sign a release for me to speak with [facility]. I also recommended acupuncture and discussed [...] precautions discussed. Fibromyositis 03/29/2022 03/29/2022 Chronic bronchitis (CMS/HCC) 03/04/2022 08/31/2024 Upper respiratory infection 03/04/2022 03/29/2022 UTI symptoms 03/04/2022 08/31/2024 Assessment & Plan (02/28/2024 4:36 PM EST): UA and culture Chest pain 01/18/2018 03/29/2022 Migraine 01/18/2018 03/29/2022 Pain in female pelvis 08/04/20172024 Wheezing 08/13/2016 03/29/2022 Hand pain 05/13/2015 08/31/2024 Headache 11/04/2011 08/31/2024 Encounters Date Type Department Care Team Description 01/01/2025 Patient Outreach [facility] [address] [place] [address] Rosa M Herring Pre-visit Planning (SDOH screening completed on 05/16/2024) 01/01/2025 Refill [facility] [address] [place] [address] Dory Ray MD Chronic right-sided low back pain with right-sided sciatica 12/28/2024 Telephone [facility] & PEDS [address] [place], [place] [phone] Dory Ray MD Care Coordination (ICP Care Plan) 12/13/2024 Orders Only [facility] External Provider, [facility] 12/02/2024 Refill [facility] [address] [place] [address] Dory Ray MD Chronic right-sided low back pain with right-sided sciatica 11/26/2024 Refill [facility] [address] [place] [address] Dory Ray MD Essential hypertension 11/14/2024 Results Follow-Up [facility] [address] [place] [address] Dory Ray MD FL Esophagus Barium Swallow 11/10/2024 Refill [facility] [address] [place] [address] Dory Ray MD Generalized anxiety disorder 11/08/2024 Telephone [facility] [address] [place] [address] Dory Ray MD Appointment Request 11/08/2024 Results Follow-Up [facility] [address] [place] [address] Soft Tissue Neck w/ Contrast 11/06/2024 Refill [facility] [address] [place] [address] Dory Ray MD Chronic right-sided low back pain with right-sided sciatica 11/05/2024 Patient Outreach [facility] [address] [place], [place] [phone] Dory Ray MD Care Coordination (Communication to PT assigned CP Coordinator ) 11/02/2024 Telephone [facility] [address] [place] [address] Cailin Iverson CNP 11/01/2024 1:00 PM EDT Office Visit [address] [address] Cailin Iverson CNP Folliculitis (Primary Dx); Neck mass 11/01/2024 Travel 10/30/2024 Patient Outreach [facility] [address] [place], [place] [phone] Dory Ray MD Care Coordination ([facility] ED F/U) 10/30/2024 Patient Outreach [facility] [address] [place], [place] [phone] Dory Ray MD Care Coordination ([facility] C3/Chart review) 10/30/2024 Patient Outreach [address] [address] Dory Ray MD 10/30/2024 Refill [facility] [address] [place] [address] Dory Ray MD Chronic right-sided low back pain with right-sided sciatica 10/29/2024 Orders Only GENERIC EXTERNAL DATA DEPARTMENT Provider, Generic External Data 10/17/2024 Results Follow-Up [facility] [address] [place] [phone] Dory Ray MD XR Hip 2 or 3 Views Left 10/16/2024 Results Follow-Up [facility] [address] [place] [address] Amber Orozco MD POCT urinalysis dipstick manually resulted, Bacterial Vaginosis Panel, Culture, Urine, Routine 10/16/2024 Telephone [facility] [address] [place] [phone] Dory Ray MD Nurse Triage 10/09/2024 4:00 PM EDT Office Visit [facility] [address] [place] [phone] Amber Orozco MD Vaginal discharge (Primary Dx); Essential hypertension 10/09/2024 Travel 10/09/2024 Telephone [facility] [address] [place] [phone] Dory Ray MD Nurse Triage 10/05/2024 Orders Only GENERIC EXTERNAL DATA DEPARTMENT Provider, Generic External Data 10/04/2024 2:30 PM EDT Office Visit [address] [address] Dory Ray MD Dizziness; Palpitations; Dyspnea on exertion; Fibromyalgia; Gastroesophageal reflux disease, unspecified whether esophagitis present; Essential hypertension; Left hip pain; Vascular insufficiency 10/04/2024 Refill [facility] [address] [place] [phone] Dory Ray MD Essential hypertension 10/04/2024 Travel 10/02/2024 Refill [facility] [address] [place] [phone] Dory Ray MD Chronic right-sided low back pain with right-sided sciatica 10/02/2024 Telephone [facility] [address] [place] [phone] Dory Ray MD Nurse Triage from Last [...] Visit [facility] [address] [place], [place] [phone] Dory Ray MD [address] [place], [place] [phone] 03/22/2025 10:30 AM EST Office Visit [facility] OPTOMET[facility] [address] [place] [address] Nathalia Allan, OD [address] [place] [address] Health Maintenance Due Date Last Done Comments [...] Procedure Name Priority Date/Time Associated Diagnosis Comments VASC US LOWER EXTREMITY ARTERIAL DUPLEX BILATERAL WITH [...] EDT) 12/13/2024 12:4 0 PM EDT Narrative [facility] - 12/13/2024 2:13 PM EDT [address] [address] Ultrasound Report Signed Patient: Marlene Hicks MR#: [id number] : 1975 Acct:[id number] Age/Sex: 49 / F ADM Date: 12/13/24 Loc: HO.US Attending Dr: Reyes Otero MD Ordering Physician: Reyes Otero MD Date of Service: 12/13/24 Procedure(s): US arterial duplex BI w/ [place] Accession Number(s): [id number] cc: Dory Ray MD; Reyes Otero MD [...] 12/13/24 1410 DD/ 1240 TD/TT: 12/13/24 1310 Clerical Associate: Procedure Note Donotuseinterpreter, Image - 12/13/[address] [address] Ultrasound Report Signed Patient: Crissy Hicks#: [id number] : 1975Acct:[id number] Age/Sex: 49 / FADM Date: 12/13/24 Loc: HO.US Attending Dr: Reyes Otero MD Ordering Physician: Reyes Otero MD Date of Service: 12/13/24 Procedure(s): US arterial duplex BI w/ [place] Accession Number(s): [id number] cc: Dory Ray MD; Reyes Otero MD [...] 12/13/24 1410 DD/ 1240 TD/TT: 12/13/24 1310 Clerical Associate: us [facility] External Provider CV VASC ULAR PROCEDURES Final Result [facility] [address] [place] [phone] * FL Esophagus Barium Swallow (11/14/2024 8:30 AM EDT) Anatomical Region Laterality Modality Head, Neck Radiographic [place] 11/14/2024 8:30 AM EDT Narrative 11/14/2024 9:39 AM EDT [address] [address] Fluoroscopy Report Signed Patient: Marlene Hicks MR#: [id number] : 1975 Acct:[id number] Age/Sex: 49 / F ADM Date: 11/14/24 Loc: HO.XRAY Attending Dr: Dory Wen MD Ordering Physician: Dory Ray MD Date of Service: 11/14/24 Procedure(s): FL barium swallow Accession Number(s): [id number] cc: Dory Ray MD EXAMINATION: XR BARIUM [...] signed by Mendez Calle MD in OV> 11/14/2436 DD/ 9 TD/TT: 11/14/24 0845 Clerical Associate: ANTONIO Procedure Note Donotuseinterpreter, Image - 11/14/2024 [place] [address] Fluoroscopy Report Signed Patient: Crissy Hicks#: [id number] : 1975Acct:[id number] Age/Sex: 49 / FADM Date: 11/14/24 Loc: HO.XRAY Attending Dr: Dory Wen MD Ordering Physician: Dory Ray MD Date of Service: 11/14/24 Procedure(s): FL barium swallow Accession Number(s): [id number] cc: Dory Ray MD EXAMINATION: XR BARIUM [...] signed by Mendez Calle MD in OV> 11/14/24935 DD/ 0830 TD/TT: 11/14/24 0845 Clerical Associate: [facility] us Dory Wen MD IMG FLUOROSCOPY PROCE DURES Final Result * CT Soft Tissue Neck w/ Contrast (11/08/2024 8:49 AM EDT) Anatomical Region Laterality Modality Head, Neck Computed Tomogra phy 11/08/2024 8:49 AM EDT Narrative 11/08/2024 9:18 AM EDT [place] [address] CT Scan Report Signed Patient: Marlene Hicks MR#: [id number] : 1975 Acct:[id number] Age/Sex: 49 / F ADM Date: 11/08/24 Loc: HO.CT Attending Dr: Cailin Iverson CHIP LOFT WORKER Ordering Physician: Cailin Iverson Date of Service: 11/08/24 Procedure(s): CT soft tissue neck w IV con Accession Number(s): [id number] cc: Dory Ray MD; aCilin Iverson Report Number: [id number]: Total DLP = 216.00 mGy-cm EXAMINATION: CT [...] -Normal. Parapharyngeal Fat Planes: -Normal and undisturbed. Shell Plater Spaces: -Normal. Anterior Cervical Space: -Normal. No [...] 11/08/24 0914 DD/ 0849 TD/TT: 11/08/24 0900 Clerical Associate: Procedure Note Donotuseinterpreter, Image - 11/08/[address] [address] [address] Scan Report Signed Patient: Crissy Hicks#: [id number] : 1975Acct:[id number] Age/Sex: 49 / FADM Date: 11/08/24 Loc: HO.CT Attending Dr: Cailin Iverson CHIP LOFT WORKER Ordering Physician: Cailin Iverson Date of Service: 11/08/24 Procedure(s): CT soft tissue neck w IV con Accession Number(s): [id number] cc: Dory Ray MD; [facility] Report Number: [id number]: Total DLP = 216.00 mGy-cm EXAMINATION: CT [...] -Normal. Parapharyngeal Fat Planes: -Normal and undisturbed. Shell Plater Spaces: -Normal. Anterior Cervical Space: -Normal. No [...] signed by Michael Dhillon MD in OV> 11/08/2414 DD/ 0849 TD/TT: 11/08/24 0900 Clerical Associate: Result [facility] IMG CT PROCEDURES Final R esult * POCT Rapid Covid-19 BinaxNOW (11/01/2024 1:32 PM EDT) [facility] Rapid COVID Ag Negative QC Media Lot # [id number] Lot# Expiration Date 71,126 Nares 11/01/2024 1:32 PM EDT Result [facility] POINT OF CARE TEST ENTER/ EDIT ORDERABLES Final Result * POCT Rapid Influenza B OSOM (11/01/2024 1:32 PM EDT) [facility] Rapid Influenza B Ag Negative Negative, Indeterminate QC Media Lot # [id number] Lot# Expiration Date 1,327 Swab 11/01/2024 1:32 PM EDT Result [facility] POINT OF CARE TEST ENTER/ EDIT ORDERABLES Final Result * POCT Rapid Influenza A OSOM (11/01/2024 1:32 PM EDT) [facility] Rapid Influenza A Ag Negative Negative, Indeterminate QC Media Lot # [id number] Lot# Expiration Date 1,327 Swab Nasopharyngeal structure / Unknown 11/01/2024 1:32 PM EDT Result [facility] POINT OF CARE TEST ENTER/ EDIT ORDERABLES Final Result * POCT Rapid Strep A OSOM (11/01/2024 1:32 PM EDT) [facility] Rapid Strep A Screen Negative Negative, None Detected QC Media Lot # [id number] Lot# Expiration Date 32,026 Swab 11/01/2024 1:32 PM EDT [facility] POINT OF CARE TEST ENTER/ EDIT ORDERABLES Final Result * (ABNORMAL) CBC auto differential (10/29/2024 11:49 AM EDT) Only the most recent of2 resultswithin the time period is included. White Blood Count 8.5 4.8 - 10.8 X10*3/uL [facility] Red Blood Count 3.86(L) 4.20 - 5.50 X10*6/uL [facility] Hemoglobin 12.3 12.0 - 16.0 g/dl [facility] Hematocrit 35.6(L) 37.0 - 47.0 % [facility] Mean Corpuscular Volume 92.2 80.0 - 98.0 fL [facility] Mean Corpuscular Hemoglobin 31.9 27.0 - 33.0 pg [facility] Mean Corpuscular HGB Conc 34.6 31.0 - 35.0 g/dl [facility] Red Cell Distribution Width 13.2 11.0 - 16.0 % [facility] Platelet Count 314 160 - 400 X10*3/uL [facility] Mean Platelet Volume 9.1(L) 9.4 - 12.3 fL [facility] Neutrophils Percent Auto 59.8 45 - 73 % [facility] Imm Gran Pct Auto 0.6(H) 0.0 - 0.4 % [facility] Lymphocytes Percent Auto 33.5 20 - 40 % [facility] Monocytes Percent Auto 5.0 2 - 11 % [facility] Eosinophils Percent Auto 0.9 0 - 4 % [facility] Basophils Percent Auto 0.2 0 - 2 % [facility] NRBC Pct Auto 0.0 0.0 - 0.2 /100WBC [facility] Neutrophils Absolute Auto 5.1 2.0 - 8.3 x10*3/uL [facility] Imm Gran Abs Auto 0.05(H) 0.00 - 0.03 X10*3/uL [facility] Lymphocytes Absolute Auto 2.8 1.2 - 4.9 X10*3/uL [facility] Monocytes Absolute Auto 0.4 0.1 - 1.2 X10*3/uL [facility] Eosinophils Absolute Auto 0.1 0.0 - 0.4 X10*3/uL [facility] Basophils Absolute Auto 0.0 0.0 - 0.2 X10*3/uL [facility] NRBC Abs Auto 0.000 0.0 - 0.012 X10*3/uL [facility] 10/29/2024 11:4 9 AM EDT 10/29/2024 12:01 PM EDT us Generic External Data Provider LAB BLOOD ORDERAB LES Final Result [facility] [address] [place] [phone] * Comprehensive Metabolic Panel (10/29/2024 11:49 AM EDT) Sodium 140 135 - 145 mmol/L [facility] Potassium 3.6 3.3 - 5.1 mmol/L [facility] Chloride 104 96 - 108 mmol/L [facility] Carbon Dioxide 27 22 - 29 mmol/L [facility] Anion Gap 13 12 - 20 [facility] Urea Nitrogen (BUN) 9 9 - 16 mg/dL [facility] Creatinine, Serum 0.81 0.5 - 1.4 mg/dL [facility] Creatinine Clr Calc Pharmacy 80.5 [facility] Comment:Provided height and weight: 162.56 cm,73.1 kg.eGFR (calculated from the MDRD study equation) and eCrCl(calculated from the Cockcroft-Gault equation) are based ondifferent parameters and may not yield comparable results.If eCrCl result is absurd, please check patient'sheight/weight. Estimated Glomerular Filt Rate >60 [facility] Comment:Chronic Kidney Disea se: Estimated GFR < 60 mL/min/1.59o4Cgeqny Kidney Disease: Estimated GFR < 15 mL/min/1.73m2 Glucose 92 60 - 115 mg/dL [facility] Calcium 9.5 8.4 - 10.2 mg/dL [facility] Bilirubin, Total 0.3 0.0 - 1.0 mg/dL [facility] Aspartate Amino Transferase 26 5 - 31 U/L [facility] Alanine Aminotransferase 18 0 - 31 U/L [facility] Total Protein 7.7 6.5 - 8.0 g/dL [facility] Albumin Level 4.7 3.5 - 5.0 g/dL [facility] Alkaline Phosphatase 47 39 - 117 U/L [facility] 10/29/2024 11:4 9 AM EDT 10/29/2024 12:01 PM EDT us Generic External Data Provider LAB BLOOD ORDERAB LES Final Result [facility] [address] [place] [phone] * (ABNORMAL) Basic Metabolic Panel (10/17/2024 8:23 AM EDT) Only the most recent of2 resultswithin the time period is included. Sodium 138 135 - 145 mmol/L [facility] Potassium 4.1 3.3 - 5.1 mmol/L [facility] Chloride 104 96 - 108 mmol/L [facility] Carbon Dioxide 28 22 - 29 mmol/L [facility] Anion Gap 10(L) 12 - 20 [facility] Urea Nitrogen (BUN) 11 9 - 16 mg/dL [facility] Creatinine, Serum 0.76 0.5 - 1.4 mg/dL [facility] Estimated Glomerular Filt Rate >60 [facility] Comment:Chronic Kidney Disea se: Estimated GFR < 60 mL/min/1.39m1Yxexlo Kidney Disease: Estimated GFR < 15 mL/min/1.73m2 Glucose 126(H) 60 - 115 mg/dL [facility] Calcium 9.3 8.4 - 10.2 mg/dL [facility] Blood Venous blood specimen / Unknown 10/17/2024 8:23 AM EDT 10/17/2024 11:09 AM EDT us Amber Orozco MD LAB BLOOD ORDERABLES Final Re sult [facility] [address] [place] [phone] * XR Hip 2 or 3 Views Left (10/17/2024 8:06 AM EDT) Anatomical Region Laterality Modality Lower Extremities, Hip Left Radiograp hic Imaging 10/17/2024 8:06 AM EDT Narrative 10/17/2024 9:20 AM EDT [address] [address] XRay Report Signed Patient: Marlene Hicks MR#: [id number] : 1975 Acct:[id number] Age/Sex: 49 / F ADM Date: 10/17/24 Loc: HO.HHCL Attending Dr: Dory Wen MD Ordering Physician: Dory Ray MD Date of Service: 10/17/24 Procedure(s): XR hip LT min 2V Accession Number(s): [id number] cc: Dory Ray MD EXAMINATION: XR HIP, [...] by Luis Enrique Blankenship MD in OV> 10/17/24916 DD/ 5 TD/TT: 10/17/24858 Clerical Associate: Procedure Note Donotartemioter, Image - 10/17/[address] [address] XRay Report Signed Patient: Crissy Hicks#: [id number] : 1975Acct:[id number] Age/Sex: 49 / FADM Date: 10/17/24 Loc: HO.HHCL Attending Dr: Dory Wen MD Ordering Physician: Dory Ray MD Date of Service: 10/17/24 Procedure(s): XR hip LT min 2V Accession Number(s): [id number] cc: Dory Ray MD EXAMINATION: XR HIP, [...] signed by Luis Enrique Blankenship MDin OV> 10/17/24916 DD/ 5 TD/TT: 10/17/24858 Clerical Associate: Dory Wen MD IMG XR PROCEDURES Fin [...] DETECTION BY PCR NOT DETECTED Not Detect [facility] BACTERIAL VAGINOSIS DETECTION BY PCR NEGATIVE Negative [facility] Comment:The BV organism targ ets [...] DETECTION BY PCR NOT DETECTED Not Detect [facility] Maureen glab krusei PCR NOT DETECTED Not Detect [facility] Swab Vaginal structure / Unknown 10/09/2024 4:16 PM EDT 10/10/2024 12:12 PM EDT Amber Orozco MD LAB MICROBIOLOGY - GENERAL OR DERABLES Final Result [facility] [address] [place] [phone] * Culture, Urine, Routine (10/09/2024 4:16 PM EDT) Urine Urine specimen obtained by clean catch procedure / Unknown 10/09/2024 4:16 PM EDT 10/10/2024 12:11 PM EDT Comment:UACC Narrative [facility] - 10/11/2024 11:30 AM EDT Urine Culture No growth. Specimen Source: Urine clean catch us Amber Orozco MD LAB MICROBIOLOGY - GENERAL OR DERABLES Final Result [facility] [address] [place] [phone] * XR Chest 2 Views (10/05/2024 9:17 PM EDT) Anatomical Region Laterality Modality Chest Radiographic [place] 10/05/2024 9:17 PM EDT Narrative 10/05/2024 9:19 PM EDT [place] [address] XRay Report Signed Patient: Marlene Hicks MR#: [id number] : 1975 Acct:[id number] Age/Sex: 49 / F ADM Date: 10/05/24 Loc: HO.ED Attending Dr: Ordering Physician: Skye Abad Date of Service: 10/05/24 Procedure(s): XR chest 2V Accession Number(s): [id number] cc: Dory Ray MD; Skye Abad CLINICAL HISTORY: CP 2 view chest x-ray Comparison: CR/CT/SR - XR CHEST 2V - 04/12/24 10:08 EST Findings: The lungs are clear. Normal size heart. No acute fracture. IMPRESSION: 1. No acute findings. This document has been electronically signed by: Luke Yu MD on 10/05/2024 21:17:09 Dictated By: Luke Yu MD Signed By: <Electronically signed by Luke Yu MD in OV> 10/05/242117 DD/ 16 TD/TT: 10/05/242116 Clerical Associate: Procedure Note Donotpriscilainterpreter, Image - 10/05/[address] [address] XRay Report Signed Patient: Yudith HicksR#: [id number] : 1975Acct:[id number] Age/Sex: 49 / FADM Date: 10/05/24 Loc: HO.ED Attending Dr: Ordering Physician: Skye Abad Date of Service: 10/05/24 Procedure(s): XR chest 2V Accession Number(s): [id number] cc: Dory Ray MD; Skye Abad CLINICAL HISTORY: CP 2 view chest x-ray Comparison: CR/CT/SR - XR CHEST 2V - 04/12/24 10:08 EST Findings: The lungs are clear. Normal size heart. No acute fracture. IMPRESSION: 1. No acute findings. This document has been electronically signed by: Luke Yu MD on 10/05/2024 21:17:09 Dictated By: Luke Yu MD Signed By: <Electronically signed by uLke Yu MD in OV> 10/05/242117 DD/ 16 TD/TT: 10/05/242116 Clerical Associate: [facility] External Provider IMG XR PROCEDURES Edited Result - Final * CT Head w/o Contrast (10/05/2024 8:55 PM EDT) Anatomical Region Laterality Modality Head, Neck Computed Tomogra phy 10/05/2024 8:55 PM EDT Narrative 10/05/2024 8:57 PM EDT [place] [address] CT Scan Report Signed Patient: Marlene Hicks MR#: [id number] : 1975 Acct:[id number] Age/Sex: 49 / F ADM Date: 10/05/24 Loc: HO.ED Attending Dr: Ordering Physician: Skye Abad Date of Service: 10/05/24 Procedure(s): CT head/brain wo IV con Accession Number(s): [id number] cc: Dory Ray MD; Skye Abad Report Number: [id number]: Total DLP = 670.00 mGy-cm CLINICAL HISTORY: [...] in OV> 10/05/242055 DD/ 54 TD/TT: 10/05/242054 Clerical Associate: Procedure Note Donotuseinterpreter, Image - 10/05/[address] [place] [address] [address] Scan Report Signed Patient: Crissy Hicks#: [id number] : 1975Acct:[id number] Age/Sex: 49 / FADM Date: 10/05/24 Loc: HO.ED Attending Dr: Ordering Physician: Skye Abad Date of Service: 10/05/24 Procedure(s): CT head/brain wo IV con Accession Number(s): [id number] cc: Dory Ray MD; Skye Abad Report Number: [id number]: Total DLP = 670.00 mGy-cm CLINICAL HISTORY: [...] in OV> 10/05/242055 DD/ 54 TD/TT: 10/05/242054 Clerical Associate: [facility] External Provider IMG CT PROCEDURES Edited Result - Final * High Sensitivity Troponin I (10/05/2024 8:25 PM EDT) [facility] TROPONIN I HIGH SENSITIVITY 4.1 <3.5 - 17.0 ng/L [facility] Comment:The [place] high sens itivity Troponin-I results should beused in conjunction with other diagnostic information suchas ECG, clinical observations and information, and patientsymptoms to aid in the diagnosis of [place]. 10/05/2024 8:25 PM EDT 10/05/2024 8:28 PM EDT Generic External Data Provider LAB BLOOD ORDERAB LES Final Result Performing Organization Address [facility]/ZIP Co de Phone Number [facility] [address] [place] [phone] * TSH with Reflex to Free T4 (10/05/2024 8:25 PM EDT) [facility] TSH reflex Free T4 1.96 0.32 - 4.0 uIU/mL [facility] 10/05/2024 8:25 PM EDT 10/05/2024 8:28 PM EDT Generic External Data Provider LAB BLOOD ORDERAB LES Final Result Performing Organization Address City/[facility]/ZIP Co de Phone Number [facility] [address] [place] [phone] * SARS-CoV-2 RNA, Influenza A/B, and RSV RNA, Ql NAAT (10/05/2024 8:25 PM EDT) Pathologist [facility] Influenza A PCR NEGATIVE Negative [facility] Influenza B PCR NEGATIVE Negative [facility] Resp Syncy Virus RNA Qual PCR NEGATIVE Negative [facility] SARS COV2 PCR NEGATIVE Negative [facility] Comment:All test results mus [...] use by authorized laboratories.Testing performed on the [employer] GeneXpert utilizingreal-time RT-PCR.All SARS CoV2 and positive influenza A/B results arereported to [facility]. 10/05/2024 8:25 PM EDT 10/05/2024 8:28 PM EDT Generic External Data Provider LAB MICROBIOLOGY - GENERAL ORDERABLES Final Result Performing Organization Address [facility]/ZIP Co de Phone Number [facility] [address] [place] [phone] * B Type Natriuretic Peptide (BNP) (10/05/2024 8:25 PM EDT) [facility] [facility] B Type Natriuretic Peptide <10 <100 pg/mL [facility] 10/05/2024 8:25 PM EDT 10/05/2024 8:28 PM EDT Generic External Data Provider LAB BLOOD ORDERAB LES Final Result Performing Organization Address [facility]/ZIP Co de Phone Number [facility] [address] [place] [address] [phone] * Magnesium (10/05/2024 8:25 PM EDT) [facility] Magnesium 2.0 1.6 - 2.6 mg/dL [facility] 10/05/2024 8:25 PM EDT 10/05/2024 8:28 PM EDT us Generic External Data Provider LAB BLOOD ORDERAB LES Final Result Performing Organization Address [facility] Co de Phone Number [facility] [address] [place] [address] [phone] * Hepatic Function Panel (10/05/2024 8:25 PM EDT) Bilirubin, Total 0.2 0.0 - 1.0 mg/dL [facility] Bilirubin, Direct <0.2 0.0 - 0.5 mg/dL [facility] Aspartate Amino Transferase 26 5 - 31 U/L [facility] Alanine Aminotransferase 28 0 - 31 U/L [facility] Total Protein 7.7 6.5 - 8.0 g/dL [facility] Albumin Level 4.6 3.5 - 5.0 g/dL [facility] Alkaline Phosphatase 49 39 - 117 U/L [facility] 10/05/2024 8:25 PM EDT 10/05/2024 8:28 PM EDT us Generic External Data Provider LAB BLOOD ORDERAB LES Final Result Performing Organization Address [facility] de Phone Number [facility] [address] [place] [address] [phone] * POCT Hemoglobin (10/04/2024 1:39 PM EDT) Hemoglobin 12.5 12.0 - 15.0 QC Media Lot # [id number] Lot# Expiration Date 964 Blood 10/04/2024 1:39 PM EDT us Dory Wen MD POINT OF CARE TEST [...] AM EDT Narrative 07/03/2024 5:46 PM EDT [facility] [address] [place] [address] Mammography Report Signed Patient: Marlene Hicks MR#: [id number] : 1975 Acct:[id number] Age/Sex: 48 / F ADM Date: 06/27/24 Loc: HO.MAMMO Attending Dr: Dory Wen MD Ordering Physician: Dory Ray MD Results: 1Negative Date of Service: 06/27/24 Follow Up: 1 Year From [facility] Mammogram Procedure(s): MM tomosynthesis screening BI Accession Number(s): [id number] cc: Dory Ray MD EXAMINATION: MM SCREENING [...] 07/03/24 1743 DD/ 1145 TD/TT: 06/27/24 1200 Clerical Associate: Procedure Note Donotuseinterpreter, Image - 07/03/2024 [facility] [address] [place] [address] Mammography Report Signed Patient: Crissy Hicks#: [id number] : 1975Acct:[id number] Age/Sex: 48 / FADM Date: 06/27/24 Loc: HOCarolynMAMMO Attending Dr: Dory Wen MD Ordering Physician: Dory Ray MDResults: 1Negative Date of Service: 06/27/24Follow Up: 1 Year From Orig inal Mammogram Procedure(s): MM tomosynthesis screening BI Accession Number(s): [id number] cc: Dory Ray MD EXAMINATION: MM SCREENING [...] Saranya Montero DO 07/03/2024 05:43 PM EDT RP Dictated By: Saranya Montero DO Signed By: <Electronically signed by Saranya Montero DO in OV> 07/03/24 1743 DD/ 1145 TD/TT: 06/27/24 1200 Clerical Associate: us Dory Wen MD IMG BI PROCEDURES Fin al Result * Hepatitis C Ab (06/26/2024 9:38 AM EDT) Hepatitis C Antibody Nonreactive Nonreactive [facility] Comment:Antibodies to HCV no t detected; does not exclude early acuteHCV infection. 06/26/2024 9:38 AM EDT 06/26/2024 9:38 AM EDT Generic External Data Provider LAB BLOOD ORDERAB LES Final Result [facility] [address] [place] [address] [phone] * HIV-1/2 Antigen and Antibodies, Fourth Generation, with Reflexes (06/26/2024 9:38 AM EDT) HIV AB/AG Nonreactive Nonreactive [facility] Comment:HIV-1 p24 Ag and/or HIV-1/HIV-2 Ab not detected.A test result that is nonreactive does not exclude thepossibility of exposure to or infection with HIV-1 and/orHIV-2. Nonreactive results in this assay for individualswith prior exposure to HIV-1 and/or HIV-2 may be due toantigen and antibody levels that are below the limit ofdetection of this assay.[employer] HIV Ag/Ab Combo assay result andsupplemental assay results should be interpreted inconjunction with the patient's clinical presentation,history and other laboratory results. If the results areinconsistent with clinical evidence, additional testing issuggested to confirm the result. 06/26/2024 9:38 AM EDT 06/26/2024 9:38 AM EDT Generic External Data Provider LAB BLOOD ORDERAB LES Final Result Performing Organization Address [facility] de Phone Number [facility] [address] [place] [address] [phone] * HPV mRNA E6/E7 w/Reflex to HPV Genotypes 16, 18/45 (07/19/2023 9:21 AM EDT) HPV nRNA E6/E7 Not Detected Not Detected [facility] Comment:Methodology: Transcr iption-Mediated AmplificationThis assay detects E6/E7 viral messenger RNA (mRNA) from 14high-risk HPV types (16,18,31,33,35,39,45,51,52,56,58,59,66,68).Cervical sources are required for HPV testing.If a vaginal source from a patient who has had atotal hysterectomy with removal of cervix wassubmitted, please contact the testing laboratoryfor alternative testing options.For additional information, please refer tohttp://education.[employer]/faq/GZI258w9(This link if provided for information/educational purposes only.)THIS TEST WAS PERFORMED AT:[employer] [place] [phone] WONG MD HPV mRNA E6/E7 [facility] HPV 16 RNA [facility] HPV 18/45 RNA [facility] 07/19/2023 9:21 AM EDT 07/20/2023 9:05 AM EDT Generic External Data Provider LAB CYTOLOGY ORDE RABLES Final Result Performing Organization Address [facility] Co de Phone Number [facility] [address] [place] [address] [phone] * (ABNORMAL) Lipid Panel, Standard (06/16/2023 10:01 AM EDT) Triglycerides 107 <150 mg/dL [facility] Comment:Desirable Triglyceri de: less than 150 mg/dLBorderline High Triglyceride 150-199 mg/dLHigh Triglyceride: 200-499 mg/dLVery High Triglyceride: greater than or equal to 5OO mg/dL Cholesterol 191 <200 mg/dL [facility] Comment:Desirable Cholestero l: less than 200 mg/dLBorderline High Cholesterol: 200-239 mg/dLHigh Cholesterol: greater than 239 mg/dL LDL Cholesterol Calculated 137(H) <100 mg/dL [facility] Comment:Desirable LDL: less than 100 mg/dLNear Optimal/Above Optimal LDL: 110- 129 mg/dLBorderline High LDL: 130-159 mg/dLHigh LDL: 160-189 mg/dLVery High LDL: greater than or equal to 190 mg/dL HDL Cholesterol 33(L) >40 mg/dL [facility] Comment:Desirable HDL: great er than 40 mg/dL Note: This HDL assay may give artificially low results in patients with liver disease. Blood Venous blood specimen / Unknown 06/16/2023 10:01 AM EDT 06/16/2023 11:27 AM EDT us Dory Wen MD LAB BLOOD ORDERABLES Final Result [facility] [address] [place] [address] [phone] * Pap Smear (02/21/2023 2:25 PM EST) 02/21/2023 2:25 PM EST 02/22/2023 10:30 AM EST Narrative [facility] - 03/07/2023 8:53 PM EST ----- ------- Name: Marlene Hicks Age/Sex: 47/F : 1975 Unit#: [id number] Attend Dr: Macho Sarkar MD Re02/21/23 Status: DEP REF Location: [facility] Disch: ----- ------- SPEC : [id number] RECD: 02/22/23-1029 STATUS: JELLY FARRELL NUM: [id number] TREVON: 02/21/23-[address] [facility] [address]: Macho Sarkar MD ENTERED: 02/22/23-121 SP TYPE: Pap Smr OTHR DR: Dory [...] 59, 66, 68) HPV testing performed by [facility] [employer], [place], [place]. See reference laboratory portion of the EMR for entire report. Clinical Information LMP: Postmenopausal Previous PAP test: Unknown date/findings Other history: Abnormal uterine and vaginal bleeding. Material Received ThinPrep-Cervical Copies To: Dory Ray MD [address] [place] [address] [phone] Macho Sarkar MD [address] [place] [address] [address] ----- ------- Signed (signature on file) Abbie Saunders MD 03/07/232052 ----- ------- END OF REPORT us Generic External Data Provider LAB CYTOLOGY NEFTALI SHARIJANAK Final Result [facility] [address] [place] [address] [phone] * Cologuard?? colon cancer screening (12/27/2022 9:47 AM EDT) Pathologist [facility] Cologuard Result Negative Negative 01/07/20 5:43 PM EDT [employer] (CLIA #:[id number]) Comment: NEGATIVE TEST RESULT. A negative Cologuard [...] screened with both Cologuard and colonoscopy. (Anum Garcia, N Engl J Med 2014;370(14):7397-4113) The normal value (reference range) for this assay is negative. COLOGUARD RE-SCREENING RECOMMENDATION: Periodic colorectal cancer screening is an important part of preventive healthcare for asymptomatic individuals at average risk for colorectal cancer. Following a negative Cologuard result, the [place] [employer] and U.S. Multi-Society Task Force screening guidelines recommend a Cologuard re-screening interval of 3 years. References: [place] [employer] Guideline for Colorectal Cancer Screening: https://www.cancer.org/cancer/qhaax-ikvvqk-fwdjot/hxrraqajo-kbntnjdkg-vlqumsr/ac s-rec ommendations.html.; Yossi DK, Katja TELLEZ, Mona LugoK, Colorectal Cancer Screening: Recommendations for Physicians and Patients from the U.S. Multi-Society Task Force on Colorectal Cancer Screening , Am J Gastroenterology 2017; 112:2292-9822. TEST DESCRIPTION: Composite algorithmic analysis of stool [...] Dillon et al, N Engl J Med 2014;370(14):0651-1559.) Cologuard may produce a false negative or false positive result (no colorectal cancer or precancerous polyp present at colonoscopy follow up). A negative Cologuard test result does not guarantee the absence of CRC or advanced adenoma (pre-cancer). The current Cologuard screening interval is every 3 years. ([place] [employer] Society and U.S. Multi-Society Task Force). Cologuard performance data in a 10,000 patient pivotal study using colonoscopy as the reference method can be accessed at the following location: www.[employer]/results. Additional description of the Cologuard test process, warnings and precautions can be found at www.cologuard.com. Stool specimen (specimen) 12/27/2022 9:47 AM EDT 12/29/2022 7:44 PM EDT Dory Wen MD LAB MOLECULAR DIAGNOS TICS ORDERABLES Final Result [employer] (CLIA #:[id number]) [address] [place] [address], from Last 3 Months or Most Recently Relevant to Health Maintenance Insurance [facility] C3 DENTAL-[facility] MEDICAID STAND ADULT Care Teams Alarm Field Technician Relationship Specialty Start Date End Date Dory Ray MD [address] [place] [phone] PCP - General Family Medicine 01/03/19 Jeane Lemons Glove Parts CutterCafe Associate 11/09/23
--- OUTSIDE RECORDS SUMMARY | 2025-01-02 08:36 | XMS_ITS | Encounter Summary ---
Author Organization [employer] Address [address] [facility] [address] [place] [address] Care Team Providers Care Java Portal Developer Name Role Phone Dory Ray MD Primary Care Provide r Le Us Unavailable Reason for Visit * Reason Comments Med Refill Encounter Details Date Type Department Care Team (Late st Contact Info) Description 12/29/2022 Refill [facility] MED [facility] PEDS [address] [place] [address] Sunshine James, [address] [place] [address] Strain of neck muscle, initial encounter; Neck [...] it when needed. Will forward message to [facility] f/u with pt. documented in this encounter Plan of Treatment Upcoming Encounters Date Type Department Care Team (Late st Contact Info) Description 01/09/2025 10:45 AM EDT Office Visit [facility] MEDICINE [address] [place] [address] Dory Ray MD [address] [place] [address] 03/22/2025 10:30 AM EST Office Visit [facility] OPTOMETRY [address] [place] [address] Nathalia Allan, OD [address] [place] [address] documented as of this encounter Visit Diagnoses Diagnosis Strain of neck muscle, initial encounter Neck pain Cervicalgia documented in this encounter Additional Health Concerns Assessment Noted Time PHQ-9 Depression Total Score: 24 023 9:07 AM EDT documented as of this encounter Care Teams Java Portal Developer Relationship Specialty Start Date End Date Dory Ray MD [address] [place] [phone] PCP - General Family Medicine 01/03/19 Le Us 10/30/24 11/05/24 Jeane Lemons Coding Support SpecialistUpper Stitcher 11/09/23 documented as of this encounter
--- OUTSIDE RECORDS SUMMARY | 2025-01-02 08:36 | XMS_ITS | Encounter Summary ---
Author Organization [employer] Address [address] [facility] [address] [place] [address] Care Team Providers Care Drain Tiler Name Role Phone Dory Ray MD Primary Care Provide r Le Us Unavailable Encounter Details Date Type Department Care Team ([facility] st Contact Info) Description 01/12/2023 Abstract [facility] MEDICINE [address] [place], [place] [phone] Dory Ray MD [address] [place], [place] [phone] Social History Tobacco Use Types Packs/Day Years [...] Office Visit [facility] MEDICINE [address] [place] [address] Dory Ray MD [address] [place] [address] 03/22/2025 10:30 AM EST Office Visit [facility] OPTOMETRY [address] [place] [address] Jerrell, Nathalia, OD [address] [place] [address] documented as of this encounter Visit Diagnoses Not on filedocumented in this encounter Additional Health Concerns Assessment Noted Time PHQ-9 Depression Total Score: 24 023 9:07 AM EDT documented as of this encounter Care Teams Drain Tiler Relationship Specialty Start Date End Date Dory Ray MD [address] [place] [address] PCP - General Family Medicine 01/03/19 Le Us 10/30/24 11/05/24 Jeane Lemons College PresidentStore Warehouse Associate 11/09/23 documented as of this encounter
--- OUTSIDE RECORDS SUMMARY | 2025-01-02 08:36 | XMS_ITS | Encounter Summary ---
Author Organization [employer] Address [address] [facility] [address] [place] [address] Care Team Providers Care Concrete Handler Name Role Phone Dory Ray MD Primary Care Provide r Le Us Unavailable Encounter Details Date Type Department Care Team ([facility] st Contact Info) Description 01/12/2023 Abstract [facility] MEDICINE [address] [place], [place] [phone] Dory Ray MD [address] [place], [place] [phone] Social History Tobacco Use Types Packs/Day Years [...] 10:45 AM EDT Office Visit [facility] MEDICINE [address] [place] [address] Dory Ray MD [address] [place] [address] 03/22/2025 10:30 AM EST Office Visit [facility] OPTOMETRY [address] [place] [address] Jerrell, Nathalia, OD [address] [place] [address] documented as of this encounter Visit Diagnoses Not on filedocumented in this encounter Additional Health Concerns Assessment Noted Time PHQ-9 Depression Total Score: 24 023 9:07 AM EDT documented as of this encounter Care Teams Concrete Handler Relationship Specialty Start Date End Date Dory Ray MD [address] [place] [address] PCP - General Family Medicine 01/03/19 Le Us 10/30/24 11/05/24 Jeane Lemons Public Affairs OfficerCinder Block Maker 11/09/23 documented as of this encounter
[2025-01-02 09:52] LABS: Lipase 28 U/L (8-78)
[2025-01-02 10:38] LABS: Folate > 20.0 ng/mL (> or = 4.0); Vitamin B12 291 pg/mL (200-900)
[2025-01-07 17:32] LABS: Vitamin D 25-OH, D2 5 ng/mL; Vitamin D 25-OH, D3 33 ng/mL; Vitamin D 25-OH, Total 38 ng/mL (30-100)
== END 2025-01-02 08:13 | disposition home or self-care (01) ==
LOC: HO.XRAY 08:12
PROVIDERS: PCP Internal Medicine; Visit Provider Nurse Practitioner Family
DX: K22.2 Esophageal obstruction (principal); M54.2 Cervicalgia; E55.9 Vitamin D deficiency, unspecified; R19.7 Diarrhea, unspecified; K59.00 Constipation, unspecified; R10.9 Unspecified abdominal pain; Z83.3 Family history of diabetes mellitus
CPT/HCPCS: 36415; 70360; 82306; 82607; 82746; 83036; 83690; 84443; 86364

== ENCOUNTER → 2025-01-02 08:40 | Outpatient (BNV) | payer MEDICAID, SELFPAY | PROVIDERS: PCP Internal Medicine; Visit Provider Radiology Diagnostic Radiology | DX: K22.2 Esophageal obstruction (principal) | CPT/HCPCS: 70360 ==

== ENCOUNTER 2025-01-08 12:37 | Outpatient (AMB) | payer MEDICAID, SELFPAY ==
[2025-01-08 13:04] VITALS: BP 112/70; PULSE 89; BMI 27.8
--- NOTE | 2025-01-08 13:04 | A.OFFVIS_ITS ---
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 Instructions: bp soft. 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 Today she presents for cardiology consultation. She tells me for the last 4 months she has been having episodes of rapid heartbeat that gives her an agitated feeling in her chest. The episodes can last all day with associated shortness of breath. She has recorded her heart rate as high as 119. She feels this symptom has lessened recently. When she has it she will go outside and this will help her to feel better. She has also been getting a pain in her mid chest, between breasts for the last 1.5 months. It can occur at activity and at rest, no pattern. The episodes last about 30 minutes and resolve without treatment. No PND, orthopnea or edema. No lightheadedness, presyncope, syncope, falls. She tolerates normal ADLs without difficulty. She has stairs in her home and walks her dog routinely. She drinks 4-5 caffeinated coffees per day. She smokes 8 cigarettes per day. Her father and brother have history of heart problems but she is unsure of what. She has not had any diagnosis of heart disease, high cholesterol, diabetes. 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 [facility] Medical History HTN (hypertension) Asthma Seasonal allergies Nicotine dependence, cigarettes, uncomplicated Fibromyalgia Chronic pain syndrome Anxiety and depression Migraines Constipation Complex ovarian cyst Abnormal uterine bleeding (AUB) Microscopic hematuria Interstitial cystitis Urinary frequency Stress incontinence Female pelvic pain Abdominal mass, left lower quadrant Well woman exam Breast lump Disc degeneration, lumbar Spondylosis of lumbar spine Arthritis Surgical History History of carpal tunnel surgery of left wrist History of cystoscopy History of salpingo-oophorectomy History of loop electrosurgical excision procedure (LEEP) History of bilateral tubal ligation Family History Sister History of breast cancer, Onset Age: 52 Brother History of bone cancer History of blood disorder History of brain cancer Heart problem Paternal Aunt History of cancer of uterus Mother Hx of cancer of lung Sister Hx of hysterectomy Family/Other Hx of hysterectomy Family/Other Hx of hysterectomy Daughter Hx of thyroid cancer Father Heart problem Social History Household Members: Significant Other Housing: Apartment Do you presently have visiting nurse or other home services: Yes (BEDSPREAD INSPECTOR daily) Alcohol intake: never Patient Tobacco Use Status: Current everyday Tobacco user Tobacco use type: Cigarette Cigarettes Per Day: 10 Years Smoked: (onset 10yo, 1/2-3/4ppd x 38yrs - 20pyh) Second Hand Smoke Exposure: No Substance Use Type: Marijuana service: No Sexual orientation: Straight/Heterosexual Gender identity: Female Female Reproductive History Menstrual Age of Menarche: 9 Review of Systems Const All systems reviewed & are unremarkable except as noted in HPI and below Denies chills, Denies daytime sleepiness, Denies fatigue, Denies fever(s), Denies poor appetite, Denies snoring, Denies stops breathing during sleep, Denies weight gain and Denies weight loss Eyes Denies loss of vision Card Reports chest pain, Reports chest pain at rest, Reports chest pain with activity, Reports rapid heart rate, Denies claudication, Denies leg edema, Denies lightheadedness, Reports palpitations, Reports dyspnea, Denies dyspnea on exertion and Denies orthopnea Resp Denies cough, Denies excessive phlegm production, Denies pain with cough, Reports dyspnea, Denies dyspnea on exertion, Denies snoring, Denies wheezing and Denies other GI Denies abdominal pain, Denies hematochezia, Denies change in bowel habits, Denies nausea and Denies vomiting Denies urinary frequency and Denies dysuria Musc Denies arthralgias and Denies muscle weakness Skin/Breast Denies nail changes and Denies rash Neuro Denies loss of vision and Denies memory loss Psych Denies depression, Reports difficulty concentrating, Denies auditory hallucinations and Denies memory loss Endo Denies fatigue and Reports palpitations Min/Lymph Denies easy bruising Aller/Immun Denies wheezing Physical Exam Vital Signs: Last Vital Signs Pulse 89 01/08/25 13:04 BP 112/70 01/08/25 13:04 BMI result Body Mass Index 27.8 Const General: cooperative, healthy appearing, comfortable and no acute distress Orientation/consciousness: patient oriented x3 Neck Neck: Yes normal visual inspection Resp Effort & Inspection: normal respiratory effort Auscultation: clear to auscultation bilaterally, no rales, no rhonchi and no wheezes Cardio Rate: regular rate Rhythm: regular rhythm Heart sounds: S1 normal heart sound present, S2 normal heart sound present, no gallops, no murmurs and no rubs Neuro General: patient oriented x3 Extrem General: Yes normal to inspection Psych Appearance: grossly normal Mental Status: mental status grossly normal Speech and movement: Normal speech and movement present Office Procedures EKG Details: Today, read by me, Normal sinus rhythm, rate 89, Qtc 411ms [id number], Complete Assessment & Plan Assessment & Plan (1) Atypical chest pain: Code(s): R07.89 - Other chest pain Category: Medical Plan: Atypical sounding chest discomfort. Cardiac risks of hypertension, smoking. EKG today showing normal sinus rhythm, no ischemic findings, rate 89. Echocardiogram done 10/26/2024 showed EF 55-60%, mild LVH, no regional wall motion abnormality. Will check exercise stress test for further evaluation. Signs and symptoms of angina reviewed with her. Cardiology follow-up 2 months, sooner if needed. (2) Palpitations: Code(s): R00.2 - Palpitations Category: Medical Plan: Reports of heart palpitations, rapid beating causing shortness of breath and agitation in her chest. EKG today shows normal sinus rhythm, normal CA, QRS and QTC intervals, rate 89. Her high caffeine intake can contribute to heart palpitations, discussed with her. Recommended reduction in caffeine intake or change to decaf. Will order Holter monitor for further evaluation. (3) Nicotine dependence, cigarettes, uncomplicated: Comment: (onset 10yo, 1/2-3/4ppd x 38yrs - 20pyh) Code(s): F17.210 - Nicotine dependence, cigarettes, uncomplicated Category: Medical Plan: Current smoking, admits to smoking for the last 30 years, currently 8 cigarettes per day. Cessation recommended. Plan Time spent on chart review, documentation, interview, assessment, orders. Orders: Orders CA stress test Today R07.89 - Other chest pain ECG 3 day holter monitor Today R00.2 - Palpitations Coding Level of Care Code New Pt Level 4 (15968) Complex EM visit Add On G2211 Diagnoses Atypical chest pain R07.89 Palpitations R00.2 Nicotine dependence, cigarettes, uncomplicated F17.210 CPT Codes EKG - CPT: 24170-[id number], Complete ([id number]) Time Spent (min) 30
--- OUTSIDE RECORDS SUMMARY | 2025-01-08 15:28 | XMS_ITS | Encounter Summary ---
Author Organization [employer] Address [address] [facility] 7t [place] [address] Care Team Providers Care School Psychologist Name Role Phone Dory Ray MD Primary Care Provide r Le Us Unavailable Encounter Details Date Type Department Care Team ([facility] Contact Info) Description 04/07/2022 Orders Only [facility] MEDICINE [address] [place] [address] Rohini Middleton MD [address] [place] [address] [id number] Pain (Primary Dx) Social History Tobacco Use [...] Care Team ([facility] Contact Info) Description 01/09/2025 10:45 AM EDT Office Visit [facility] MEDICINE [address] [place] [address] Dory Ray MD [address] [place], [place] [phone] 03/22/2025 10:30 AM EST Office Visit [facility] OPTOMETRY [address] [place], [place] [phone] Nathalia Allan, OD [address] [place], [place] [phone] documented as of this encounter Visit Diagnoses Diagnosis Pain- Primary Generalized pain documented in this encounter Care Teams School Psychologist Relationship Specialty Start Date End Date Dory Ray MD [address] [place], [place] [phone] PCP - General Family Medicine 01/03/19 Le Us 10/30/24 11/05/24 Jeane Lemons Telecommunications Network PlannerJob Tracer 11/09/23 documented as of this encounter
--- OUTSIDE RECORDS SUMMARY | 2025-01-08 15:28 | XMS_ITS | Encounter Summary ---
Author Organization [employer] Address [address] [facility] 7t [place] [address] Care Team Providers Care Roller Maker Name Role Phone Dory Ray MD Primary Care Provide r Reason for Visit * Reason Comments Med Refill Encounter Details Date Type Department Care Team ([facility] st Contact Info) Description 01/07/2025 Refill [facility] MEDICINE [address] [place] [address] Dory Ray MD [address] [place] [address] Chronic right-sided low back pain with right-sided [...] [facility] [address] [place] [address] Dory Ray MD [address] [place] [address] 03/22/2025 10:30 AM EST Office Visit [facility] OPTOMETRY [address] [place] [address] Nathalia Allan, OD [address] [place] [address] documented as of this encounter Goals Goal [...] Date End Date Dory Ray MD [address] [place] [address] PCP - General Family Medicine 01/03/19 Jeane Lemons Application TechnicianManager Reliability 11/09/23 documented as of this encounter
--- OUTSIDE RECORDS SUMMARY | 2025-01-08 15:28 | XMS_ITS | Clinical Summary ---
Author Organization [facility] Address [address] [facility] [address] [place] [phone] Phone Care Team Providers Care Telephone Directory Distributor Driver Name Role Phone [place] [facility] Primary Care Provider Unavailable Allergies No [...] 07/26/2023 INFLUENZA VACCINE (#1) 2024 COVID-19 VACCINE (1 - 2024-2 6 season) 2024 RSV VACCINE (1 - 1-dose 75+ series) 2048 HEPATITIS A VACCINES Aged Out No long [...] topic Medical Devices Not on file Insurance [facility] C3 ACO [facility] [place] [place] [address] [place] [address] [place] [place] [address] [address] [place] [address] [place] [address] [place] [address] [place] [address] [place] [address] [place] [address] C3 ACO [facility] C3 ACO Care Teams Telephone Directory Distributor Driver Relationship Specialty Start Date End Date CenterJesse MD PCP - General 12/24/21 Additional Source Comments The information contained in this document represents components of the legal health record. It is not the complete legal health record.[facility]
--- OUTSIDE RECORDS SUMMARY | 2025-01-08 15:28 | XMS_ITS | Encounter Summary ---
Author Organization [employer] Address [address] [facility] 7t [place] [address] Care Team Providers Care Auto Detailer Name Role Phone Dory Ray MD Primary Care Provide r Le Us Unavailable Reason for Visit * Reason Comments Med Refill Encounter Details Date Type Department Care Team ([facility] st Contact Info) Description 03/07/2022 Refill [facility] MEDICINE [address] [place] [address] Emilia De La Torre, MARIE [address] [place] [address] Fibromyalgia (Primary Dx) Social History Tobacco Use [...] [facility] MEDICINE [address] [place] [address] Dory Ray MD [address] [place] [address] 03/22/2025 10:30 AM EST Office Visit [facility] OPTOMETRY [address] [place] [address] Nathalia Allan OD [address] [place] [address] documented as of this encounter Visit Diagnoses Diagnosis Fibromyalgia- Primary Unspecified myalgia and myositis documented in this encounter Care Teams Auto Detailer Relationship Specialty Start Date End Date Dory Ray MD [address] [place] [address] PCP - General Family Medicine 01/03/19 Le Us 10/30/24 11/05/24 Jeane Lemons Clamp Forklift OperatorCreative Arts Therapist 11/09/23 documented as of this encounter
--- OUTSIDE RECORDS SUMMARY | 2025-01-08 15:28 | XMS_ITS | Encounter Summary ---
Author Organization [employer] Address [address] [place] [address] 7t [place] [address] Care Team Providers Care Clinical Project Assistant Name Role Phone Dory Ray MD Primary Care Provide r Le Us Unavailable Reason for Visit * Reason Onset Date Comments requesting call back 03/24/2022 Encounter Details Date Type Department Care Team ([facility] st Contact Info) Description 03/24/[address] [facility] MEDICINE [address] [place] [address] Dory Ray MD [address] [place] [address] requesting call back Social History Tobacco Use [...] pt returning call Please contact pt at [phone] documented in this encounter Plan of Treatment Upcoming Encounters Date Type Department Care Team (Late st Contact Info) Description 01/09/2025 10:45 AM EDT Office Visit [facility] MEDICINE [address] [place] [address] Dory Ray MD [address] [place] [address] 03/22/2025 10:30 AM EST Office Visit [facility] OPTOMETRY [address] [place] [address] Nathalia Allan OD [address] [place] [address] documented as of this encounter Visit Diagnoses Not on filedocumented in this encounter Care Teams Clinical Project Assistant Relationship Specialty Start Date End Date Dory Ray MD [address] [place] [address] PCP - General Family Medicine 01/03/19 Le Us 10/30/24 11/05/24 Jeane Lemons Capper Machine OperatorFlavoring Oil Filterer 11/09/23 documented as of this encounter
--- OUTSIDE RECORDS SUMMARY | 2025-01-08 15:28 | XMS_ITS | Encounter Summary ---
Author Organization [employer] Address [address] [place] [address] 7 [place] [address] Care Team Providers Care Community Health Education Coordinator Name Role Phone Dory Ray MD Primary Care Provide r Le Us Unavailable Reason for Visit * Reason Comments Med Refill Encounter Details Date Type Department Care Team (Late Contact Info) Description 06/22/2022 Refill [facility] MEDICINE [address] [place] [address] NameSoy MD [address] [place] [address] Recurrent major depressive episodes, moderate (CMS/HCC); Migraine [...] Description 01/09/2025 10:45 AM EDT Office Visit [facility] MEDICINE [address] [place] [address] [phone] Dory Ray MD [address] [place], [place] [phone] 03/22/2025 10:30 AM EST Office Visit [facility] OPTOMETRY [address] [place], [place] [phone] Nathalia Allan, MEDINA [address] [place], [place] [phone] documented as of this encounter Visit Diagnoses Diagnosis Recurrent major depressive episodes, moderate (CMS/HCC) (HCC) Major depressive disorder, recurrent episode, moderate Migraine without status migrainosus, not intractable, unspecified migraine type documented in this encounter Care Teams Community Health Education Coordinator Relationship Specialty Start Date End Date Dory Ray MD [address] [place], [place] [phone] PCP - General Family Medicine 01/03/19 Le Us 10/30/24 11/05/24 Jeane Lemons Powerhouse OilerLeaf Blender 11/09/23 documented as of this encounter
--- OUTSIDE RECORDS SUMMARY | 2025-01-08 15:28 | XMS_ITS | Encounter Summary ---
Author Organization [employer] Address [address] [facility] 7t [place] [address] Care Team Providers Care Bass String Winder Name Role Phone Dory Ray MD Primary Care Provide r Le Us Unavailable Reason for Visit * Reason Comments Med Refill Encounter Details Date Type Department Care Team (Late st Contact Info) Description 09/06/2024 Refill [facility] MEDICINE [address] [place] [address] Dory Ray MD [address] [place] [address] Chronic right-sided low back pain with right-sided [...] 10:45 AM EDT Office Visit [facility] MEDICINE [address] [place] [address] Dory Ray MD [address] [place] [address] 03/22/2025 10:30 AM EST Office Visit [facility] OPTOMETRY [address] [place] [address] Nathalia Allan, MEDINA [address] [place] [address] documented as of this encounter Goals Goal [...] documented as of this encounter Care Teams Bass String Winder Relationship Specialty Start Date End Date Dory Ray MD [address] [place] [address] PCP - General Family Medicine 01/03/19 Le Us 10/30/24 11/05/24 Jeane Lemons Electric Meter TesterSurgical Assistant 11/09/23 documented as of this encounter
--- OUTSIDE RECORDS SUMMARY | 2025-01-08 15:28 | XMS_ITS | Encounter Summary ---
Author Organization [employer] Address [address] [facility] 7t [place] [address] Care Team Providers Care Milling Machinist Name Role Phone Dory Ray MD Primary Care Provide r Reason for Visit * Reason Comments Med Refill Encounter Details Date Type Department Care Team ([facility] st Contact Info) Description 01/03/2025 Refill [facility] MEDICINE [address] [place] [address] Dory Ray MD [address] [place] [address] Gastroesophageal reflux disease, unspecified whether esophagitis present Social History Tobacco Use Types Packs/Day Years [...] Description 01/09/2025 10:45 AM EDT Office Visit [facility] MEDICINE [address] [place] [address] Dory Ray MD [address] [place] [address] 03/22/2025 10:30 AM EST Office Visit [facility] OPTOMETRY [address] [place] [address] Nathalia Allan, OD [address] [place] [address] documented as of this encounter Goals Goal Patient Goal Type Associated Problems Recent Progress Patient-Stated? Author Smoking cessation General No change(2023 2:25 PM EDT) No Kiah Cisneros, PharmD Note: Maintain current progress, smoke 8 cigarettes per day or less. documented as of this encounter Visit Diagnoses Diagnosis Gastroesophageal reflux disease, unspecified whether esophagitis present documented in this encounter Additional Health Concerns Assessment Noted Time PHQ-9 Depression Total Score: 24 024 9:01 AM EDT documented as of this encounter Care Teams Milling Machinist Relationship Specialty Start Date End Date Dory Ray MD [address] [place] [address] PCP - General Family Medicine 01/03/19 Jeane Lemons Sas Programmer AnalystSharepoint Trainer 11/09/23 documented as of this encounter
--- OUTSIDE RECORDS SUMMARY | 2025-01-08 15:28 | XMS_ITS | Encounter Summary ---
Author Organization [employer] Address [address] [place] [address] 7t [place] [address] Care Team Providers Care Property Clerk Name Role Phone Dory Ray MD Primary Care Provide r Le Us Unavailable Reason for Visit * Reason Comments Med Refill Encounter Details Date Type Department Care Team ([facility] st Contact Info) Description 09/06/2024 Refill [facility] MEDICINE [address] [place] [address] Katerine Killian MD [address] [place] [address] Social History Tobacco Use Types Packs/Day Years [...] [facility] MEDICINE [address] [place] [address] Dory Ray MD [address] [place] [address] 03/22/2025 10:30 AM EST Office Visit [facility] OPTOMETRY [address] [place] [address] Nathalia Allan, OD [address] [place] [address] documented as of this encounter Goals Goal [...] documented as of this encounter Care Teams Property Clerk Relationship Specialty Start Date End Date Dory Ray MD [address] [place] [address] PCP - General Family Medicine 01/03/19 Le Us 10/30/24 11/05/24 Jeane Lemons Nocturnist PhysicianCloth Beamer 11/09/23 documented as of this encounter
--- OUTSIDE RECORDS SUMMARY | 2025-01-08 15:29 | XMS_ITS | Encounter Summary ---
Author Organization [employer] Address [address] [place] [address] 7t [place] [address] Care Team Providers Care Rod Puller And Coiler Name Role Phone Dory Ray MD Primary Care Provide r Le Us Unavailable Reason for Visit * Reason Onset Date Comments Nurse Triage 10/11/2022 Encounter Details Date Type Department Care Team ([facility] st Contact Info) Description 10/11/2022 Telephone [facility] MEDICINE [address] [place] [address] Dory Ray MD [address] [place] [address] Nurse Triage Social History Tobacco Use Types [...] 10/11/2022 11:39 AM EDT Triage call with HDmessaging hvac designer [place] [id number] Pt calls with numerous concerns but, abdominal [...] abdominal discomfort. Advised Pt to come to [facility] to be seen and Pt reports [...] accepted this outcome Please contact pt at [phone] (Malaysian speaker) documented in this encounter Plan of Treatment Upcoming Encounters Date Type Department Care Team (Late st Contact Info) Description 01/09/2025 10:45 AM EDT Office Visit [facility] MEDICINE [address] [place], [place] [phone] Dory Ray MD [address] [place] [address] 03/22/2025 10:30 AM EST Office Visit [facility] OPTOMETRY [address] [place], [place] [phone] Nathalia Allan OD [address] [place] [address] documented as of this encounter Visit Diagnoses Not on filedocumented in this encounter Additional Health Concerns Assessment Noted Time PHQ-9 Depression Total Score: 21 023 9:24 AM EDT documented as of this encounter Care Teams Rod Puller And Coiler Relationship Specialty Start Date End Date Dory Ray MD [address] [place] [address] PCP - General Family Medicine 01/03/19 Le Us 10/30/24 11/05/24 Jeane Lemons Drum TesterGold Prospector 11/09/23 documented as of this encounter
--- OUTSIDE RECORDS SUMMARY | 2025-01-08 15:29 | XMS_ITS | Encounter Summary ---
Author Organization [employer] Address [address] [facility] 7t [place] [address] Care Team Providers Care Welding Machine Operator Ultrasonic Name Role Phone Dory Ray MD Primary Care Provide r Le Us Unavailable Reason for Visit * Reason Comments Med Refill Encounter Details Date Type Department Care Team (Late st Contact Info) Description 07/29/2024 Refill [facility] MEDICINE [address] [place] [address] Katerine Killian MD [address] [place] [address] Chronic right-sided low back pain with right-sided [...] AM EDT Office Visit [facility] MEDICINE [address] [place] [address] Dory Ray MD [address] [place] [address] 03/22/2025 10:30 AM EST Office Visit [facility] OPTOMETRY [address] [place] [address] Nathalia Allan, OD [address] [place] [address] documented as of this encounter Goals Goal [...] documented as of this encounter Care Teams Welding Machine Operator Ultrasonic Relationship Specialty Start Date End Date Dory Ray MD [address] [place] [address] PCP - General Family Medicine 01/03/19 Le Us 10/30/24 11/05/24 Jeane Lemons Back WinderEvp Sales 11/09/23 documented as of this encounter
--- OUTSIDE RECORDS SUMMARY | 2025-01-08 15:29 | XMS_ITS | Encounter Summary ---
Author Organization [employer] Address [address] [place] [address] 7 [place] [address] Care Team Providers Care Big Data Platform Architect Name Role Phone Dory Ray MD Primary Care Provide r Le Us Unavailable Reason for Visit * Reason Comments Med Refill Encounter Details Date Type Department Care Team (Late st Contact Info) Description 03/19/2024 Refill [facility] MEDICINE [address] [place] [address] Dory Ray MD [address] [place] [address] Essential hypertension Social History Tobacco Use Types [...] of the following? None of the above;Lead [place] or Pipes;Pests such as bugs, ants, or [...] [facility] [address] [place] [address] Dory Ray MD [address] [place] [address] 03/22/2025 10:30 AM EST Office Visit [facility] OPTOMETRY [address] [place] [address] Nathalia Allan OD 230 [place] [address] documented as of this encounter Goals Goal [...] documented as of this encounter Care Teams Big Data Platform Architect Relationship Specialty Start Date End Date Dory Ray MD [address] [place] [id number] PCP - General Family Medicine 01/03/19 Le Us 10/30/24 11/05/24 Jeane Lemons Interim ControllerSql Engineer 11/09/23 documented as of this encounter
--- OUTSIDE RECORDS SUMMARY | 2025-01-08 15:29 | XMS_ITS | Encounter Summary ---
Author Organization [employer] Address [address] [facility] 7 [place] [address] Care Team Providers Care Extruder Operator Name Role Phone Dory Ray MD Primary Care Provide r Le Us Unavailable Reason for Visit * Reason Comments Med Refill Encounter Details Date Type Department Care Team ([facility] st Contact Info) Description 08/23/2023 Refill [facility] [address] [place] [address] Dashawn Garcia DDS [address] [place] [address] Social History Tobacco Use Types Packs/Day Years [...] of the following? None of the above;Lead [place] or Pipes;Pests such as bugs, ants, or [...] Description 01/09/2025 10:45 AM EDT Office Visit [facility] [address] [place], [place] [phone] Dory Ray MD 230 [place] [address] 03/22/2025 10:30 AM EST Office Visit [facility] [address] [place] [address] Nathalia Allan OD 230 [place] [address] documented as of this encounter Goals Goal [...] documented as of this encounter Care Teams Extruder Operator Relationship Specialty Start Date End Date Dory Ray MD [address] [place] [address] PCP - General Family Medicine 01/03/19 Le Us 10/30/24 11/05/24 Jeane Lemons Sinker PullerInternational Sourcing Manager 11/09/23 documented as of this encounter
--- OUTSIDE RECORDS SUMMARY | 2025-01-08 15:29 | XMS_ITS | Encounter Summary ---
Author Organization [employer] Address [address] [place] [address] 7t [place] [address] Care Team Providers Care Deputy Clerk Of Superior Court Name Role Phone Dory Ray MD Primary Care Provide r Le Us Unavailable Reason for Visit * Reason Onset Date Comments PA 07/29/2022 Encounter Details Date Type Department Care Team ([facility] st Contact Info) Description 07/29/2022 Telephone [facility] MEDICINE [address] [place] [address] Dory Ray MD [address] [place] [address] PA Social History Tobacco Use Types Packs/Day [...] EDT Office Visit [facility] MEDICINE [address] [place] [address] Dory Ray MD [address] [place] [address] 03/22/2025 10:30 AM EST Office Visit [facility] OPTOMETRY [address] [place] [address] Nathalia Allan, OD 230 [place] [address] documented as of this encounter Visit Diagnoses Not on filedocumented in this encounter Care Teams Deputy Clerk Of Superior [address] Relationship Specialty Start Date End Date Dory Ray MD [address] [place] [address] PCP - General Family Medicine 01/03/19 Le Us 10/30/24 11/05/24 Jeane Lemons Home AttendantCanoe Inspector 11/09/23 documented as of this encounter
--- OUTSIDE RECORDS SUMMARY | 2025-01-08 15:29 | XMS_ITS | Encounter Summary ---
Author Organization [employer] Address [address] [place] [address] 7 [place] [address] Care Team Providers Care Enterprise Account Manager Name Role Phone Dory Ray MD Primary Care Provide r Le Us Unavailable Reason for Visit * Reason Comments Med Refill Encounter Details Date Type Department Care Team (Late st Contact Info) Description 04/10/2024 Refill [facility] [address] [place] [address] Dory Ray MD 230 [place], [place] [phone] Chronic right-sided low back pain with right-sided [...] of the following? None of the above;Lead [place] or Pipes;Pests such as bugs, ants, or [...] AM EDT Office Visit [facility] [address] [place] [address] Dory Ray MD [address] [place] [address] 03/22/2025 10:30 AM EST Office Visit [facility] OPTOMETRY [address] [place] [address] Nathalia Allan OD 230 [place] [address] documented as of this encounter Goals Goal [...] documented as of this encounter Care Teams Enterprise Account Manager Relationship Specialty Start Date End Date Dory Ray MD [address] [place] [address] PCP - General Family Medicine 01/03/19 Le Us 10/30/24 11/05/24 Jeane Lemons Mask Design EngineerTechnical Solution Architect 11/09/23 documented as of this encounter
--- OUTSIDE RECORDS SUMMARY | 2025-01-08 15:29 | XMS_ITS | Encounter Summary ---
Author Organization [employer] Address [address] [facility] 7t [place] [address] Care Team Providers Care Employment Assistant Name Role Phone Dory Ray MD Primary Care Provide r Le Us Unavailable Reason for Visit * Reason Comments Med Refill Encounter Details Date Type Department Care Team ([facility] st Contact Info) Description 05/20/2023 Refill [facility] [address] [place] [address] Dory Ray MD [address] [place], [place] [phone] Chronic pain syndrome Social History Tobacco Use [...] EDT Office Visit [facility] [address] [place] [address] Dory Ray MD [address] [place] [address] 03/22/2025 10:30 AM EST Office Visit [facility] OPTOMETRY [address] [place] [address] Jerrell, Nathalia, OD [address] [place] [address] documented as of this encounter Goals Goal [...] as of this encounter Care Teams Employment Assistant Relationship Specialty Start Date End Date Dory Ray MD [address] [place] [id number] PCP - General Family Medicine 01/03/19 Le Us 10/30/24 11/05/24 Jeane Lemons Press Feeder BroomcornProduct Controller 11/09/23 documented as of this encounter
--- OUTSIDE RECORDS SUMMARY | 2025-01-08 15:29 | XMS_ITS | Encounter Summary ---
Author Organization [employer] Address [address] [facility] 7t [place] [address] Care Team Providers Care Principal Solutions Architect Name Role Phone Dory Ray MD Primary Care Provide r Le Us Unavailable Reason for Visit * Reason Comments Med Refill Encounter Details Date Type Department Care Team ([facility] st Contact Info) Description 01/17/2023 Refill [facility] MEDICINE [address] [place] [address] Dory Ray MD 230 [place], [place] [phone] Migraine without status migrainosus, not intractable, unspecified [...] Office Visit [facility] MEDICINE [address] [place] [address] Dory Ray MD [address] [place] [address] 03/22/2025 10:30 AM EST Office Visit [facility] OPTOMETRY [address] [place] [address] Nathalia Allan, OD [address] [place] [address] documented as of this encounter Visit Diagnoses Diagnosis Migraine without status migrainosus, not intractable, unspecified migraine type Chronic right-sided low back pain with right-sided sciatica documented in this encounter Additional Health Concerns Assessment Noted Time PHQ-9 Depression Total Score: 24 023 9:07 AM EDT documented as of this encounter Care Teams Principal Solutions Architect Relationship Specialty Start Date End Date Dory Ray MD [address] [place] [address] PCP - General Family Medicine 01/03/19 Le Us 10/30/24 11/05/24 Jeane Lemons Volunteer FirefighterSilverware Cleaner 11/09/23 documented as of this encounter
--- OUTSIDE RECORDS SUMMARY | 2025-01-08 15:29 | XMS_ITS | Encounter Summary ---
Author Organization [employer] Address [address] [place] [address] 7 [place] [address] Care Team Providers Care Internet Media Planner Name Role Phone Dory Ray MD Primary Care Provide r Le Us Unavailable Reason for Visit * Reason Onset Date Comments Durable Medical Equipment 03/21/2024 Encounter Details Date Type Department Care Team (Late st Contact Info) Description 03/21/2024 Telephone [facility] MEDICINE [address] [place] [address] Doyr Ray MD [address] [place] [address] Durable Medical Equipment Social History Tobacco Use [...] of the following? None of the above;Lead [place] or Pipes;Pests such as bugs, ants, or [...] requesting DME for Wipes. Contact pt at [phone] documented in this encounter Plan of Treatment Upcoming Encounters Date Type Department Care Team (Late st Contact Info) Description 01/09/2025 10:45 AM EDT Office Visit [facility] MEDICINE [address] [place] [address] Dory Ray MD [address] [place] [address] 03/22/2025 10:30 AM EST Office Visit [facility] OPTOMETRY [address] [place], [place] [phone] Nathalia Allan OD 230 [place] [address] documented as of this encounter Goals Goal [...] documented as of this encounter Care Teams Internet Media Planner Relationship Specialty Start Date End Date Dory Ray MD [address] [place] [address] PCP - General Family Medicine 01/03/19 Le Us 10/30/24 11/05/24 Jeane Lemons Manager EnergyInstructional Technology Facilitator 11/09/23 documented as of this encounter
--- OUTSIDE RECORDS SUMMARY | 2025-01-08 15:29 | XMS_ITS | Encounter Summary ---
Author Organization [employer] Address [address] [facility] 7t [place] [address] Care Team Providers Care Electric Power Superintendent Name Role Phone Dory Ray MD Primary Care Provide r Encounter Details Date Type Department Care Team ([facility] st Contact Info) Description 11/08/2024 Results Follow-Up [facility] MEDICINE [address] [place] [address] Cailin Iverson, [facility] [address] [place] [address] CT Soft Tissue Neck w/ Contrast Social [...] Description 01/09/2025 10:45 AM EDT Office Visit [facility] MEDICINE [address] [place] [address] Dory Ray MD [address] [place] [address] 03/22/2025 10:30 AM EST Office Visit [facility] OPTOMETRY [address] [place] [address] Nathalia Allan OD [address] [place] [address] documented as of this encounter Goals Goal [...] documented as of this encounter Care Teams Electric Power Superintendent Relationship Specialty Start Date End Date Dory Ray MD [address] [place] [address] PCP - General Family Medicine 01/03/19 Jeane Lemons Production Broaching Machine OperatorProduct Evangelist 11/09/23 documented as of this encounter
--- OUTSIDE RECORDS SUMMARY | 2025-01-08 15:29 | XMS_ITS | Encounter Summary ---
Author Organization [employer] Address [address] [facility] 7t [place] [address] Care Team Providers Care Hiv Counselor Name Role Phone Dory Ray MD Primary Care Provide r Le Us Unavailable Reason for Visit * Reason Comments Med Refill Encounter Details Date Type Department Care Team ([facility] st Contact Info) Description 08/17/2024 Refill [facility] MEDICINE [address] [place] [address] Dory Ray MD 230 [place], [place] [phone] Generalized anxiety disorder Social History Tobacco Use [...] the past 12 months, has t he [employer], gas, oil or water [employer] threatened to shut off services in your [...] [facility] [address] [place] [address] Dory Ray MD 230 [place] [address] 03/22/2025 10:30 AM EST Office Visit [facility] OPTOMETRY [address] [place] [address] Nathalia Allan, OD [address] [place] [address] documented as of this encounter Goals Goal [...] documented as of this encounter Care Teams Hiv Counselor Relationship Specialty Start Date End Date Dory Ray MD 230 [place] [address] PCP - General Family Medicine 01/03/19 Le Us 10/30/24 11/05/24 Jeane Lemons Online Affiliate Marketing ManagerEnvironmental Intern 11/09/23 documented as of this encounter
--- OUTSIDE RECORDS SUMMARY | 2025-01-08 15:29 | XMS_ITS | Clinical Summary ---
Author Organization [employer] Address [address] [place] [address] 7[address] [place] [address] Care Team Providers Care Director Call Center Sales Name Role Phone Dory Ray MD Primary [...] DAY NEEDED FOR ALLERGIES 90 tablet 3 025 Active gabapentin (Neurontin) 800 MG tabletIndications :Chronic midline thoracic back pain,Chronic bilateral low back pain with bilateral sciatica TAKE 1 TABLET BY MOUTH THREE TIMES DAILY IN THE MORNING, AT NOON, AND AT BEDTIME 90 tablet 1 025 Active cyclobenzaprine (Flexeril) 10 MG tabletIndications :Chronic midline thoracic back pain,Neck pain TAKE 1 TABLET BY MOUTH THREE TIMES DAILY IN THE MORNING, AT NOON, AND AT BEDTIME NEEDED FOR MUSCLE SPASMS 60 tablet 2 025 Active amLODIPine (Norvasc) 2.5 MG tablet Take 1 tablet (2.5 mg) by mouth Once per day. 30 tablet 11 025 2025 Active mirtazapine (Remeron) 15 MG tabletIndications :Generalized anxiety disorder TAKE 1 TABLET BY MOUTH AT BEDTIME 30 tablet 2 025 Active hydroCHLOROthiazi de (HYDRODiuril) 25 MG tabletIndications :Essential hypertension Take 1 tablet (25 mg) by mouth Once per day. 90 tablet 3 025 2025 Active ibuprofen 800 MG tabletIndications :Chronic right-sided low back pain with right-sided sciatica TAKE 1 TABLET BY MOUTH EVERY 8 HOURS NEEDED FOR PAIN 90 tablet 025 Active famotidine (Pepcid) 20 MG tabletIndications :Gastroesophageal reflux disease, unspecified whether esophagitis present TAKE 1 TABLET BY MOUTH TWICE A DAY 180 tablet 025 Active lidocaine (Lidoderm) 5 % patchIndications: Chronic right-sided low back pain with right-sided sciatica APPLY 1 PATCH TOPICALLY ONCE PER DAY. REMOVE & DISCARD PATCH WITHIN 12 HOURS OR DIRECTED BY MD. 30 patch 1 025 Active famotidine (Pepcid) 20 MG tabletIndications :Gastroesophageal reflux disease, unspecified whether esophagitis present Take 1 tablet (20 mg) by mouth 2 times daily. 60 tablet 2 025 2024 Discontinued lidocaine (Lidoderm) 5 % patchIndications: Chronic right-sided low back pain with right-sided sciatica APPLY 1 PATCH TOPICALLY ONCE PER DAY. REMOVE & DISCARD PATCH WITHIN 12 HOURS OR DIRECTED BY MD. 30 patch 1 025 2024 Discontinued ibuprofen 800 MG tabletIndications [...] PRN Indication: bulging lumbar disc, fibromyalgia Last FAMILY AND CONSUMER EDUCATION TEACHER Agreement: 03/13/24 Additional considerations/risk factors: BZO Tier II (FAMILY AND CONSUMER EDUCATION TEACHER visits Q3 months) - last evaluated Mar [...] and non-pharm modalities Continues with COT. See chip person for urine/pill count. Assessment & Plan (01/10/2024 [...] Marlene agrees to go in person to [facility] to follow up on status of a therapist. She also agrees to follow up in 2 weeks via telehealth for support. She agrees to come in person if needed, to sign a release for me to speak with [facility]. I also recommended acupuncture and [...] Encounters Date Type Department Care Team Description 01/07/2025 Refill [facility] [address] [place] [address] Dory Ray MD Chronic right-sided low back pain with right-sided sciatica 01/03/2025 Refill [facility] [address], [place] [phone] Dory Ray MD Gastroesophageal reflux disease, unspecified whether esophagitis present 01/02/2025 Orders Only GENERIC EXTERNAL DATA DEPARTMENT Provider, Generic External Data 01/01/2025 Patient Outreach [facility] [address] [place], [place] [phone] Rosa M Herring Pre-visit Planning ([facility] screening completed on 05/16/2024) 01/01/2025 Refill [facility] [address], [place] [phone] Dory Ray MD Chronic right-sided low back pain with right-sided sciatica 12/28/2024 Telephone [facility] [address] [place] [address] Dory Ray MD Care Coordination (ICP Care Plan) 12/13/2024 Orders Only [facility] External Provider, [facility] 12/02/2024 Refill [facility] [address] [place] [address] Dory Ray MD Chronic right-sided low back pain with right-sided sciatica 11/26/2024 Refill [facility] [address] [place] [address] Dory Ray MD Essential hypertension 11/14/2024 Results Follow-Up [facility] [address] [place] [address] Dory Ray MD [place] Esophagus Barium Swallow 11/10/2024 Refill [facility] [address] [place] [address] Dory Ray MD Generalized anxiety disorder 11/08/2024 Telephone [facility] [address] [place] [address] Dory Ray MD Appointment Request 11/08/2024 Results Follow-Up [address] [address] Soft Tissue Neck w/ Contrast 11/06/2024 Refill [facility] [address] [place] [address] Dory Ray MD Chronic right-sided low back pain with right-sided sciatica 11/05/2024 Patient Outreach [facility] [address] [place] [address] Dory Ray MD Care Coordination (Communication to PT assigned CP Coordinator ) 11/02/2024 Telephone [facility] [address] [place] [address] Cailin Iverson CNP 11/01/2024 1:00 PM EDT Office Visit [facility] [address] [place] [phone] Cailin Iverson CNP Folliculitis (Primary Dx); Neck mass 11/01/2024 Travel 10/30/2024 Patient Outreach [facility] [address] [place] [address] Dory Ray MD Care Coordination ([facility] ED F/U) 10/30/2024 Patient Outreach [facility] [address] [place] [address] Dory Ray MD Care Coordination ([facility] C3/Chart review) 10/30/2024 Patient Outreach [facility] [address] [place] [phone] Dory Ray MD 10/30/[address] [address] Dory Ray MD Chronic right-sided low back pain with right-sided sciatica 10/29/2024 Orders Only GENERIC EXTERNAL DATA DEPARTMENT Provider, Generic External Data 10/17/2024 Results Follow-Up [address] [address] Dory Ray MD XR Hip 2 or 3 Views Left 10/16/2024 Results Follow-Up [facility] [address] [place] [address] Amber Orozco MD POCT urinalysis dipstick manually resulted, Bacterial Vaginosis Panel, Culture, Urine, Routine 10/16/[address] [address] Dory Ray MD Nurse Triage 10/09/2024 4:00 PM EDT Office Visit [facility] [address] [place] [phone] Amber Orozco MD Vaginal discharge (Primary Dx); Essential hypertension 10/09/2024 Travel 10/09/[address] [address] Dory Ray MD Nurse Triage from Last [...] Description 01/09/2025 10:45 AM EDT Office Visit [facility] [address] [place] [address] Dory Ray MD [address] [place] [address] 03/22/2025 10:30 AM EST Office Visit [facility] [address] [place] [address] Nathalia Allan, OD [address] [place] [address] Health Maintenance Due Date Last Done Comments [...] Cancer Screening 12/27/2025 FIT DNA/Cologuard 12/27/2025 12/27/2022 Diabetes: Hemoglobin A1C 01/02/2026 025, 11/11/2022, 10/07/2021 Pap Smear 02/21/2026 02/21/2023, 02/17/2017 Lipid Panel [...] Procedure Name Priority Date/Time Associated Diagnosis Comments XR NECK SOFT TISSUE Routine 01/02/2025 8 :51 AM EDT VITAMIN D 25-OH (D2 AND D3) Routine 01/02/2025 8:30 AM EDT TISSUE TRANSGLUTAMINASE AB, IGA Routine 01/02/2025 8:30 AM EDT VITAMIN B12/FOLATE, SERUM PANEL Routine 01/02/2025 8:30 AM EDT TSH W/REFLEX TO FT4 Routine 01/02/2025 8 :30 AM EDT LIPASE Routine 01/02/2025 8:30 AM EDT HEMOGLOBIN A1C Routine 01/02/2025 8:30 AM EDT VASC US LOWER EXTREMITY ARTERIAL DUPLEX BILATERAL [...] EDT Folliculitis POCT RAPID COVID ANTIGEN Routine 025 1:32 PM EDT Folliculitis COMPREHENSIVE METABOLIC PANEL Routine 10/29/2024 11:49 AM EDT CBC WITH AUTO DIFFERENTIAL Routine 10/29/2024 11:49 AM EDT BASIC METABOLIC PANEL Routine 10/17/2024 8:23 AM EDT Essential hypertension XR HIP 2 OR 3 VIEWS LEFT Routine 025 8:06 AM EDT Left hip pain POCT URINALYSIS DIPSTICK Routine 025 4:20 PM EDT Vaginal discharge CULTURE, URINE, ROUTINE Routine 10/10/19 25 4:16 PM EDT Vaginal discharge BACTERIAL VAGINOSIS PANEL Routine 10/09/2024 4:16 PM EDT Vaginal discharge BI MAMMOGRAM SCREENING TOMOSYNTHESIS BILATERAL Routine 06/27/2024 [...] Recently Relevant to Health Maintenance Results * XR Neck Soft Tissue (01/02/2025 8:51 AM EDT) Anatomical Region Laterality Modality Head, Neck Radiographic [place] 01/02/2025 8:51 AM EDT Narrative 01/02/2025 9:04 AM EDT [address] [address] XRay Report Signed Patient: Marlene Hicks MR#: [id number] : 1975 Acct:[id number] Age/Sex: 49 / F ADM Date: 01/02/25 Loc: [facility] Attending Dr: Xiao SALAZAR-CARLOS Ordering Physician: Colleen,Xiao D ROUGE PRESSER-BC Date of Service: 01/02/25 Procedure(s): XR soft tissue neck Accession Number(s): [id number] cc: Dory Ray MD; Xiao Macias ROUGE PRESSER-BC Reason for Exam: K22.2 - Esophageal obstruction EXAMINATION: XR SOFT TISSUE NECK CLINICAL INDICATION: K22.2 - Esophageal obstruction; dorsolaterally of left neck pain x5 months, worsening. COMPARISON: 60 CT soft tissue neck 11/08/2024. TECHNIQUE: 2 views of the soft tissue neck were obtained. FINDINGS: Soft tissue films of the neck demonstrate a normal larynx, pharynx and upper trachea. Normal epiglottis and soft palate. No soft tissue swelling or opaque foreign body is demonstrated. Bony structures appear grossly normal. Imaged lung apices are clear. XR/XR soft tissue neck IMPRESSION: Normal examination. Electronically signed by: Michael Dhillon MD 01/02/2025 09:02 AM EDT RP Dictated By: Michael Dhillon MD Signed By: <Electronically signed by Michael Dhillon MD in OV> 01/02/25 0902 DD/ 0851 TD/TT: 01/02/25 0855 Gospel Worker: Procedure Note Donotuseinterpreter, Image - 01/02/2025 [place] [address] XRay Report Signed Patient: Crissy Hicks#: [id number] : 1975Acct:[id number] Age/Sex: 49 / FADM Date: 01/02/25 Loc: [facility] Attending Dr: Xiao Macias ROUGE PRESSER-BC Ordering Physician: Xiao Macias ROUGE PRESSER-BC Date of Service: 01/02/25 Procedure(s): XR soft tissue neck Accession Number(s): [id number] cc: Dory Ray MD; Xiao Macias ROUGE PRESSER-BC Reason for Exam: K22.2 - Esophageal obstruction EXAMINATION: XR SOFT TISSUE NECK CLINICAL INDICATION: K22.2 - Esophageal obstruction; dorsolaterally of left neck pain x5 months, worsening. COMPARISON: 60 CT soft tissue neck 11/08/2024. TECHNIQUE: 2 views of the soft tissue neck were obtained. FINDINGS: Soft tissue films of the neck demonstrate a normal larynx, pharynx and upper trachea. Normal epiglottis and soft palate. No soft tissue swelling or opaque foreign body is demonstrated. Bony structures appear grossly normal. Imaged lung apices are clear. XR/XR soft tissue neck IMPRESSION: Normal examination. Electronically signed by: Michael Dhillon MD 01/02/2025 09:02 AM EDT RP Dictated By: Michael Dhillon MD Signed By: <Electronically signed by Michael Dhillon MD in OV> 01/02/25901 DD/ 0 TD/TT: 01/02/25854 Gospel Worker: [facility] External Provider IMG XR PROCEDURES Final Result * VITAMIN D 25-OH (D2 AND D3) (01/02/2025 8:30 AM EDT) Vitamin D, 25-OH, D2 5 ng/mL [facility] Comment:This test was develo ped and its analytical performancecharacteristics have been determined by [employer], [place]. It hasnot been cleared or approved by the U.S. Food and DrugAdministration. This assay has been validated pursuantto the CLIA regulations and is used for clinicalpurposes.THIS TEST WAS PERFORMED AT:[employer] [id number] [place] [address]QVYLRXFTEJAL HANSEN MD,PHD Vitamin D, 25-OH, D3 33 ng/mL [facility] Comment:This test was develo ped and its analytical performancecharacteristics have been determined by [employer] [place], [place]. It hasnot been cleared or approved by the U.S. Food and DrugAdministration. This assay has been validated pursuantto the CLIA regulations and is used for clinicalpurposes. Vitamin D, 25-OH, Total 38 30 - 100 ng/mL [facility] Comment:Vitamin D, 25-Hydrox y reports concentrations of twocommon forms, 25-OHD2 and 25-OHD3. 25-OHD3 indicatesboth endogenous production and supplementation.25-OHD2 is an indicator of exogenous sources such asdiet or supplementation. Therapy is based onmeasurement of Total 25-OHD, with levels <20 ng/mLindicative of Vitamin D deficiency, while levelsbetween 20 ng/mL and 30 ng/mL suggest insufficiency.Optimal levels are > or = 30 ng/mL.For additional information, please refer tohttp://education.Wiziva/faq/GUE041(This link is being provided for informational/educational purposes only.) 01/02/2025 8:30 AM EDT 01/02/2025 8:37 AM EDT us Generic External Data Provider LAB BLOOD ORDERAB LES Final Result Performing Organization Address [facility] Co de Phone Number [facility] [address] [place] [phone] * Vitamin B12 (Cobalamin) and Folate Panel, Serum (01/02/2025 8:30 AM EDT) Vitamin B12 291 200 - 900 pg/mL [facility] Comment:NORMAL 200-900 PG/ML INDETERMINATE 160-199 PG/ML DEFICIENT < 160 PG/ML Folate >20.0 > or = 4.0 ng/mL [facility] Comment:Reference Values:> o r = 4.0 ng/mL< 4.0 ng/mL suggests folate deficiency Methotrexate, aminopterin and folinic acid(leucovorin) are chemotherapeutic agents whose molecularstructures are similar to folate; therefore, the Architectfolate assay cannot be used for patients using these drugs. 01/02/2025 8:30 AM EDT 01/02/2025 8:37 AM EDT us Generic External Data Provider LAB BLOOD ORDERAB LES Final Result Performing Organization Address [facility] Co de Phone Number [facility] [address] [place] [phone] * TSH with Reflex to Free T4 (01/02/2025 8:30 AM EDT) TSH reflex Free T4 2.00 0.32 - 4.0 uIU/mL [facility] 01/02/2025 8:30 AM EDT 01/02/2025 8:37 AM EDT Generic External Data Provider LAB BLOOD ORDERAB LES Final Result Performing Organization Address [facility] de Phone Number [facility] [address] [place] [phone] * Tissue Transglutaminase Antibody, IgA (01/02/2025 8:30 AM EDT) Transglutaminase IgA <1.0 U/mL [facility] Comment:Value Interpretation ----- <15.0 Antibody not detected> or = 15.0 Antibody detectedTHIS TEST WAS PERFORMED AT:[employer] [address] [address]KJHSATHOMAS WONG MD 01/02/2025 8:30 AM EDT 01/02/2025 8:37 AM EDT us Generic External Data Provider LAB BLOOD ORDERAB LES Final Result Performing Organization Address [facility] de Phone Number [facility] [address] [place] [phone] * Lipase (01/02/2025 8:30 AM EDT) Lipase 28 8 - 78 U/L [facility] 01/02/2025 8:30 AM EDT 01/02/2025 8:37 AM EDT Generic External Data Provider LAB BLOOD ORDERAB LES Final Result Performing Organization Address [facility]/ZIP Co de Phone Number [facility] [address] [place] [phone] [phone] * Hemoglobin A1c (01/02/2025 8:30 AM EDT) Hemoglobin A1c 5.7 <6.0 % [facility] Comment:Hemoglobin A1C Refer ence Range Adults: 4.8 - 6.0 % Non diabetic: < 6.0 % Goal: < 7.0 %Additional Action Suggested: > 8.0 %Note: Hemoglobin A1c results are invalid for patients with abnormal amounts of HbF. Blood transfusions may impact the HbA1c concentration in the patient sample. Estimated Average Glucose 117 mg/dL [facility] Comment:eAG = Estimated ave rage glucose which is %A1C expressed asaverage glucose, using the formula of the D0I-XlomxmyKjkvhng Glucose study (ADAG), Diabetes Care, Vol.31,#8,2007 01/02/2025 8:30 AM EDT 01/02/2025 8:37 AM EDT us Generic External Data Provider LAB BLOOD ORDERAB LES Final Result Performing Organization Address [facility] Co de Phone Number [facility] [address] [place] [phone] * [facility] US Lower Extremity Arterial Duplex Bilateral With [place] (12/13/2024 12:40 PM EDT) 12/13/2024 12:4 0 PM EDT Narrative [facility] - 12/13/2024 2:13 PM EDT [address] [address] Ultrasound Report Signed Patient: Marlene Hicks MR#: [id number] : 1975 Acct:[id number] Age/Sex: 49 / F ADM Date: 12/13/24 Loc: .US Attending Dr: Reyes Otero MD Ordering Physician: Reyes Otero MD Date of Service: 12/13/24 Procedure(s): US arterial duplex BI w/ [place] Accession Number(s): [id number] cc: Dory Ray MD; Reyes Otero MD [...] 12/13/24 1410 DD/ 1240 TD/TT: 12/13/24 1310 Gospel Worker: Procedure Note Donotuseinterpreter, Image - 12/13/2024 [place] [address] Ultrasound Report Signed Patient: Crissy Hicks#: [id number] : 1975Acct:[id number] Age/Sex: 49 / FADM Date: 12/13/24 Loc: HO.US Attending Dr: Reyes Otero MD Ordering Physician: Reyes Otero MD Date of Service: 12/13/24 Procedure(s): US arterial duplex BI w/ [place] Accession Number(s): [id number] cc: Dory Ray MD; Reyes Otero MD [...] 12/13/24 1410 DD/ 1240 TD/TT: 12/13/24 1310 Gospel Worker: us [facility] External Provider CV VASC ULAR PROCEDURES Final Result [facility] [address] [place] [address] * [place] Esophagus Barium Swallow (11/14/2024 8:30 AM EDT) Anatomical Region Laterality Modality Head, Neck Radiographic [place]waa ging 11/14/2024 8:30 AM EDT Narrative 11/14/2024 9:39 AM EDT [address] [address] Fluoroscopy Report Signed Patient: Marlene Hicks MR#: [id number] : 1975 Acct:[id number] Age/Sex: 49 / F ADM Date: 11/14/24 Loc: [facility] Attending Dr: Dory Wen MD Ordering Physician: Dory Ray MD Date of Service: 11/14/24 Procedure(s): FL barium swallow Accession Number(s): [id number] cc: Dory Ray MD EXAMINATION: XR BARIUM [...] 11/14/24 0936 DD/ 0830 TD/TT: 11/14/24 0845 Gospel Worker: [facility] Procedure Note Donotuseinterpreter, Image - 11/14/2024 [place] [address] Fluoroscopy Report Signed Patient: Crissy Hicks#: [id number] : 1975Acct:[id number] Age/Sex: 49 / FADM Date: 11/14/24 Loc: HO.XRAY Attending Dr: Dory Wen MD Ordering Physician: Dory Ray MD Date of Service: 11/14/24 Procedure(s): FL barium swallow Accession Number(s): [id number] cc: Dory Ray MD EXAMINATION: XR BARIUM [...] 11/14/24 0936 DD/ 0830 TD/TT: 11/14/24 0845 Gospel Worker: [facility] us Dory Wen MD IMG FLUOROSCOPY PROCE DURES Final Result * CT Soft Tissue Neck w/ Contrast (11/08/2024 8:49 AM EDT) Anatomical Region Laterality Modality Head, Neck Computed Tomogra phy 11/08/2024 8:49 AM EDT Narrative 11/08/2024 9:18 AM EDT [address] [address] [address] Scan Report Signed Patient: Marlene Hicks MR#: [id number] : 1975 Acct:[id number] Age/Sex: 49 / F ADM Date: 11/08/24 Loc: HO.CT Attending Dr: Cailin Iverson CONTINUOUS IMPROVEMENT CONSULTANT Ordering Physician: Cailin Iverson Date of Service: 11/08/24 Procedure(s): CT soft tissue neck w IV con Accession Number(s): [id number] cc: Dory Ray MD; Cailin Iverson Report Number: [id number]: Total DLP = 216.00 mGy-cm EXAMINATION: CT [...] -Normal. Parapharyngeal Fat Planes: -Normal and undisturbed. Knitted Garment Finisher Spaces: -Normal. Anterior Cervical Space: -Normal. No [...] OV> 11/08/249[address] DD/ 8 TD/TT: 11/08/24 09 Gospel Worker: Procedure Note Donotuseinterpreter, Image - 11/08/[address] [place] [address] [address] Scan Report Signed Patient: Crissy Hicks#: [id number] : 1975Acct:[id number] Age/Sex: 49 / FADM Date: 11/08/24 Loc: HO.CT Attending Dr: Cailin Iverson CONTINUOUS IMPROVEMENT CONSULTANT Ordering Physician: Cailin Iverson Date of Service: 11/08/24 Procedure(s): CT soft tissue neck w IV con Accession Number(s): [id number] cc: Dory Ray MD; Cailin Iverson Report Number: [id number]: Total DLP = 216.00 mGy-cm EXAMINATION: CT [...] -Normal. Parapharyngeal Fat Planes: -Normal and undisturbed. Knitted Garment Finisher Spaces: -Normal. Anterior Cervical Space: -Normal. No [...] lymphadenopathy within the neck. Electronically signed by: Michale Dhillon MD 11/08/2024 09:14 AM EDT Dictated By: Michael Dhillon MD Signed By: <Electronically signed by Michael Dhillon MD in OV> 11/08/24 0914 DD/ 0849 TD/TT: 11/08/24 0900 Gospel Worker: [facility] IMG CT PROCEDURES Final R esult * POCT Rapid Covid-19 BinaxNOW (11/01/2024 1:32 PM EDT) [facility] Rapid COVID Ag Negative QC Media Lot # [id number] Lot# Expiration Date 71,126 Nimo 11/01/2024 1:32 PM EDT Result [facility] POINT OF CARE TEST ENTER/ EDIT ORDERABLES Final Result * POCT Rapid Influenza B OSOM (11/01/2024 1:32 PM EDT) [facility] Rapid Influenza B Ag Negative Negative, Indeterminate QC Media Lot # [id number] Lot# Expiration Date 1 Swab 11/01/2024 1:32 PM EDT Result [facility] POINT OF CARE TEST ENTER/ EDIT ORDERABLES Final Result * POCT Rapid Influenza A OSOM (11/01/2024 1:32 PM EDT) [facility] Rapid Influenza A Ag Negative Negative, Indeterminate QC Media Lot # [id number] Lot# Expiration Date 1 Swab Nasopharyngeal structure / Unknown 11/01/2024 1:32 PM EDT Result [facility] POINT OF CARE TEST ENTER/ EDIT ORDERABLES Final Result * POCT Rapid Strep A OSOM (11/01/2024 1:32 PM EDT) [facility] Rapid Strep A Screen Negative Negative, None Detected QC Media Lot # [id number] Lot# Expiration Date 32,026 Swab 11/01/2024 1:32 PM EDT Result [facility] POINT OF CARE TEST ENTER/ EDIT ORDERABLES Final Result * (ABNORMAL) CBC auto differential (10/29/2024 11:49 AM EDT) [facility] White Blood Count 8.5 4.8 - 10.8 X10*3/uL [facility] Red Blood Count 3.86(L) 4.20 - 5.50 X10*6/uL [facility] Hemoglobin 12.3 12.0 - 16.0 g/dl [facility] Hematocrit 35.6(L) 37.0 - 47.0 % [facility] Mean Corpuscular Volume 92.2 80.0 - 98.0 fL [facility] Mean Corpuscular Hemoglobin 31.9 27.0 - 33.0 pg [facility] Mean Corpuscular HGB Conc 34.6 31.0 - 35.0 g/dl [facility] Red Cell Distribution Width 13.2 11.0 - 16.0 % [facility] Platelet Count 314 160 - 400 X10*3/uL [facility] Mean Platelet Volume 9.1(L) 9.4 - 12.3 fL [facility] Neutrophils Percent Auto 59.8 45 - 73 % [facility] Imm Gran Pct Auto 0.6(H) 0.0 - 0.4 % [facility] Lymphocytes Percent Auto 33.5 20 - 40 % [facility] Monocytes Percent Auto 5.0 2 - 11 % [facility] Eosinophils Percent Auto 0.9 0 - 4 % [facility] Basophils Percent Auto 0.2 0 - 2 % [facility] NRBC Pct Auto 0.0 0.0 - 0.2 /100WBC [facility] Neutrophils Absolute Auto 5.1 2.0 - 8.3 x10*3/uL [facility] Imm Gran Abs Auto 0.05(H) 0.00 - 0.03 X10*3/uL [facility] Lymphocytes Absolute Auto 2.8 1.2 - 4.9 X10*3/uL [facility] Monocytes Absolute Auto 0.4 0.1 - 1.2 X10*3/uL [facility] Eosinophils Absolute Auto 0.1 0.0 - 0.4 X10*3/uL [facility] Basophils Absolute Auto 0.0 0.0 - 0.2 X10*3/uL [facility] NRBC Abs Auto 0.000 0.0 - 0.012 X10*3/uL [facility] 10/29/2024 11:4 9 AM EDT 10/29/2024 12:01 PM EDT us Generic External Data Provider LAB BLOOD ORDERAB LES Final Result [facility] [address] [place] [phone] * Comprehensive Metabolic Panel (10/29/2024 11:49 AM EDT) Sodium 140 135 - 145 mmol/L [facility] Potassium 3.6 3.3 - 5.1 mmol/L [facility] Chloride 104 96 - 108 mmol/L [facility] Carbon Dioxide 27 22 - 29 mmol/L [facility] Anion Gap 13 12 - 20 [facility] Urea Nitrogen (BUN) 9 9 - 16 mg/dL [facility] Creatinine, Serum 0.81 0.5 - 1.4 mg/dL [facility] Creatinine Clr Calc Pharmacy 80.5 [facility] Comment:Provided height and weight: 162.56 cm,73.1 kg.eGFR (calculated from the MDRD study equation) and eCrCl(calculated from the Cockcroft-Gault equation) are based ondifferent parameters and may not yield comparable results.If eCrCl result is absurd, please check patient'sheight/weight. Estimated Glomerular Filt Rate >60 [facility] Comment:Chronic Kidney Disea se: Estimated GFR < 60 mL/min/1.58k4Zvezhg Kidney Disease: Estimated GFR < 15 mL/min/1.73m2 Glucose 92 60 - 115 mg/dL [facility] Calcium 9.5 8.4 - 10.2 mg/dL [facility] Bilirubin, Total 0.3 0.0 - 1.0 mg/dL [facility] Aspartate Amino Transferase 26 5 - 31 U/L [facility] Alanine Aminotransferase 18 0 - 31 U/L [facility] Total Protein 7.7 6.5 - 8.0 g/dL [facility] Albumin Level 4.7 3.5 - 5.0 g/dL [facility] Alkaline Phosphatase 47 39 - 117 U/L [facility] 10/29/2024 11:4 9 AM EDT 10/29/2024 12:01 PM EDT us Generic External Data Provider LAB BLOOD ORDERAB LES Final Result Performing Organization Address [facility] Co de Phone Number [facility] [address] [place] [address] [phone] * (ABNORMAL) Basic Metabolic Panel (10/17/2024 8:23 AM EDT) Sodium 138 135 - 145 mmol/L [facility] Potassium 4.1 3.3 - 5.1 mmol/L [facility] Chloride 104 96 - 108 mmol/L [facility] Carbon Dioxide 28 22 - 29 mmol/L [facility] Anion Gap 10(L) 12 - 20 [facility] Urea Nitrogen (BUN) 11 9 - 16 mg/dL [facility] Creatinine, Serum 0.76 0.5 - 1.4 mg/dL [facility] Estimated Glomerular Filt Rate >60 [facility] Comment:Chronic Kidney Disea se: Estimated GFR < 60 mL/min/1.62n9Eantsy Kidney Disease: Estimated GFR < 15 mL/min/1.73m2 Glucose 126(H) 60 - 115 mg/dL [facility] Calcium 9.3 8.4 - 10.2 mg/dL [facility] Blood Venous blood specimen / Unknown 10/17/2024 8:23 AM EDT 10/17/2024 11:09 AM EDT us Amber Orozco MD LAB BLOOD ORDERABLES Final Re sult Performing Organization Address City/[facility]/ZIP Co de Phone Number [facility] [address] [place] [address] [phone] * XR Hip 2 or 3 Views Left (10/17/2024 8:06 AM EDT) Anatomical Region Laterality Modality Lower Extremities, Hip Left Radiograp hic Imaging 10/17/2024 8:06 AM EDT Narrative 10/17/2024 9:20 AM EDT [address] [address] XRay Report Signed Patient: Marlene Hicks MR#: [id number] : 1975 Acct:[id number] Age/Sex: 49 / F ADM Date: 10/17/24 Loc: HO.HHCL Attending Dr: Dory Wen MD Ordering Physician: Dory Ray MD Date of Service: 10/17/24 Procedure(s): XR hip LT min 2V Accession Number(s): [id number] cc: Dory Ray MD EXAMINATION: XR HIP, [...] 10/17/24 0917 DD/ 0806 TD/TT: 10/17/24 0859 Gospel Worker: Procedure Note Donotuseinterpreter, Image - 10/17/[address] [address] XRay Report Signed Patient: Yudith HicksR#: [id number] : 1975Acct:[id number] Age/Sex: 49 / FADM Date: 10/17/24 Loc: HO.HHCL Attending Dr: Dory Wen MD Ordering Physician: Dory Ray MD Date of Service: 10/17/24 Procedure(s): XR hip LT min 2V Accession Number(s): [id number] cc: Dory Ray MD EXAMINATION: XR HIP, [...] signed by Luis Enrique Blankenship MDin OV> 10/17/2417 DD/ 5 TD/TT: 10/17/24 0859 Gospel Worker: Dory Wen MD IMG XR PROCEDURES Fin [...] DETECTION BY PCR NOT DETECTED Not Detect [facility] BACTERIAL VAGINOSIS DETECTION BY PCR NEGATIVE Negative [facility] Comment:The BV organism targ ets of [...] DETECTION BY PCR NOT DETECTED Not Detect [facility] Maureen glab krusei PCR NOT DETECTED Not Detect [facility] Swab Vaginal structure / Unknown 10/09/2024 4:16 PM EDT 10/10/2024 12:12 PM EDT Amber Orozco MD LAB MICROBIOLOGY - GENERAL OR DERABLES Final Result Performing Organization Address [facility]/ZIP Co de Phone Number [facility] [address] [place] [phone] * Culture, Urine, Routine (10/09/2024 4:16 PM EDT) Urine Urine specimen obtained by clean catch procedure / Unknown 10/09/2024 4:16 PM EDT 10/10/2024 12:11 PM EDT Comment:UACC Narrative [facility] - 10/11/2024 11:30 AM EDT Urine Culture No growth. Specimen Source: Urine clean catch Amber Orozco MD LAB MICROBIOLOGY - GENERAL OR DERABLES Final Result Performing Organization Address [facility] Co de Phone Number [facility] [address] [place] [phone] * BI Mammogram Screening Tomosynthesis Bilateral (06/27/2024 11:45 AM EDT) Anatomical Region Laterality Modality Breast Bilateral Mammography 06/27/2024 11:4 5 AM EDT Narrative 07/03/2024 5:46 PM EDT [facility] [address] [place] [address] Mammography Report Signed Patient: Marlene Hicks MR#: [id number] : 1975 Acct:[id number] Age/Sex: 48 / F ADM Date: 06/27/24 Loc: MAMMO Attending Dr: Dory Wen MD Ordering Physician: Dory Ray MD Results: 1Negative Date of Service: 06/27/24 Follow Up: 1 Year From Orig inal Mammogram Procedure(s): MM tomosynthesis screening BI Accession Number(s): [id number] cc: Dory Ray MD EXAMINATION: MM SCREENING [...] 07/03/24 1743 DD/ 1145 TD/TT: 06/27/24 1200 Gospel Worker: Procedure Note Donotuseinterpreter, Image - 07/03/2024 [facility] [address] [place] [address] Dr. Molina, JONY [address] Mammography Report Signed Patient: Crissy Hicks#: [id number] : 1975Acct:[id number] Age/Sex: 48 / FADM Date: 06/27/24 Loc: HO.MAMMO Attending Dr: Dory Wen MD Ordering Physician: Dory Ray MDResults: 1Negative Date of Service: 06/27/24Follow Up: 1 Year From Orig inal Mammogram Procedure(s): MM tomosynthesis screening BI Accession Number(s): [id number] cc: Dory Ray MD EXAMINATION: MM SCREENING [...] 07/03/24 1743 DD/ 1145 TD/TT: 06/27/24 1200 Gospel Worker: us Dory Wen MD IMG BI PROCEDURES Fin al Result * Hepatitis C Ab (06/26/2024 9:38 AM EDT) Hepatitis C Antibody Nonreactive Nonreactive [facility] Comment:Antibodies to HCV no t detected; does not exclude early acuteHCV infection. 06/26/2024 9:38 AM EDT 06/26/2024 9:38 AM EDT us Generic External Data Provider LAB BLOOD ORDERAB LES Final Result Performing Organization Address City/[facility]/ZIP Co de Phone Number [facility] [address] [place] [address] [phone] * HIV-1/2 Antigen and Antibodies, Fourth Generation, with Reflexes (06/26/2024 9:38 AM EDT) HIV AB/AG Nonreactive Nonreactive [facility] Comment:HIV-1 p24 Ag and/or HIV-1/HIV-2 Ab not detected.A test result that is nonreactive does not exclude thepossibility of exposure to or infection with HIV-1 and/orHIV-2. Nonreactive results in this assay for individualswith prior exposure to HIV-1 and/or HIV-2 may be due toantigen and antibody levels that are below the limit ofdetection of this assay.[facility] HIV Ag/Ab Combo assay result andsupplemental assay results should be interpreted inconjunction with the patient's clinical presentation,history and other laboratory results. If the results areinconsistent with clinical evidence, additional testing issuggested to confirm the result. 06/26/2024 9:38 AM EDT 06/26/2024 9:38 AM EDT us Generic External Data Provider LAB BLOOD ORDERAB LES Final Result Performing Organization Address City/[facility]/ZIP Co de Phone Number [facility] [address] [place] [phone] * HPV mRNA E6/E7 w/Reflex to HPV Genotypes 16, 18/45 (07/19/2023 9:21 AM EDT) HPV nRNA E6/E7 Not Detected Not Detected [facility] Comment:Methodology: Transcr iption-Mediated AmplificationThis assay detects E6/E7 viral messenger RNA (mRNA) from 14high-risk HPV types (16,18,31,33,35,39,45,51,52,56,58,59,66,68).Cervical sources are required for HPV testing.If a vaginal source from a patient who has had atotal hysterectomy with removal of cervix wassubmitted, please contact the testing laboratoryfor alternative testing options.For additional information, please refer tohttp://[email or web address]/faq/PHI808w5(This link if provided for information/educational purposes only.)THIS TEST WAS PERFORMED AT:[email or web address] [place] [phone] WONG MD HPV mRNA E6/E7 [facility] HPV 16 RNA [facility] HPV 18/45 RNA [facility] 07/19/2023 9:21 AM EDT 07/20/2023 9:05 AM EDT us Generic External Data Provider LAB CYTOLOGY NEFTALI ROLLINS Final Result [facility] [address] [place] [phone] [phone] * (ABNORMAL) Lipid Panel, Standard (06/16/2023 10:01 AM EDT) Triglycerides 107 <150 mg/dL [facility] Comment:Desirable Triglyceri de: less than 150 mg/dLBorderline High Triglyceride 150-199 mg/dLHigh Triglyceride: 200-499 mg/dLVery High Triglyceride: greater than or equal to 5OO mg/dL Cholesterol 191 <200 mg/dL [facility] Comment:Desirable Cholestero l: less than 200 mg/dLBorderline High Cholesterol: 200-239 mg/dLHigh Cholesterol: greater than 239 mg/dL LDL Cholesterol Calculated 137(H) <100 mg/dL [facility] Comment:Desirable LDL: less than 100 mg/dLNear Optimal/Above Optimal LDL: 110- 129 mg/dLBorderline High LDL: 130-159 mg/dLHigh LDL: 160-189 mg/dLVery High LDL: greater than or equal to 190 mg/dL HDL Cholesterol 33(L) >40 mg/dL [facility] Comment:Desirable HDL: great er than 40 mg/dL Note: This HDL assay may give artificially low results in patients with liver disease. Blood Venous blood specimen / Unknown 06/16/2023 10:01 AM EDT 06/16/2023 11:27 AM EDT us Dory Wen MD LAB BLOOD ORDERABLES Final Result [facility] [address] [place] [phone] * Pap Smear (02/21/2023 2:25 PM EST) 02/21/2023 2:25 PM EST 02/22/2023 10:30 AM EST Narrative [facility] - 03/07/2023 8:53 PM EST ----- ------- Name: Marlene Hicks Age/Sex: 47/F : 1975 [id number]#: [id number] Attend Dr: Macho Sarkar MD Re02/21/23 Status: DEP REF Location: HO.LNP Disch: ----- ------- SPEC : [id number] RECD: 02/22/23-1029 STATUS: JELLY FARRELL NUM: [id number] TREVON: 02/21/23-[address] [facility] [address]: Macho Sarkar MD ENTERED: 02/22/23-1217 SP [...] 59, 66, 68) HPV testing performed by [facility], [place], [place]. See reference laboratory portion of the EMR for entire report. Clinical Information LMP: Postmenopausal Previous PAP test: Unknown date/findings Other history: Abnormal uterine and vaginal bleeding. Material Received ThinPrep-Cervical Copies To: Dory Ray MD [address] [place] [address] Macho Sarkar MD [address] [place] [address] [address] ----- ------- Signed (signature on file) Abbie Saunders MD 03/07/232052 ----- ------- END OF REPORT us Generic External Data Provider LAB CYTOLOGY NEFTALI ROLLINS Final Result [facility] [address] [place] [phone] * Cologuard?? colon cancer screening (12/27/2022 9:47 AM EDT) [facility] Signature Cologuard Result Negative Negative 01/07/20 5:43 PM EDT [facility] (CLIA #:[id number]) Comment: NEGATIVE TEST RESULT. A negative Cologuard [...] Dillon et al, N Engl J Med 2014;370(14):0560-6636) The normal value (reference range) for this assay is negative. COLOGUARD RE-SCREENING RECOMMENDATION: Periodic colorectal cancer screening is an important part of preventive healthcare for asymptomatic individuals at average risk for colorectal cancer. Following a negative Cologuard result, the [place] Cancer Society and U.S. Multi-Society Task Force screening guidelines recommend a Cologuard re-screening interval of 3 years. References: [place] [employer] Guideline for Colorectal Cancer Screening: https://www.cancer.org/cancer/ppwop-wpbejn-jjqzwv/isbjqrzhz-ediealyno-snripbq/ac s-rec ommendations.html.; Yossi OWEN, Katja TELLEZ, Mona LugoK, Colorectal Cancer Screening: Recommendations for Physicians and Patients from the U.S. Multi-Society Task Force on Colorectal Cancer Screening , Am J Gastroenterology 2017; 112:0909-2823. TEST DESCRIPTION: Composite algorithmic analysis of stool [...] Dillon et al, N Engl J Med 2014;370(14):9125-2525.) Cologuard may produce a false negative or false positive result (no colorectal cancer or precancerous polyp present at colonoscopy follow up). A negative Cologuard test result does not guarantee the absence of CRC or advanced adenoma (pre-cancer). The current Cologuard screening interval is every 3 years. ([place] Cancer Society and U.S. Multi-Society Task Force). Cologuard performance data in a 10,000 patient pivotal study using colonoscopy as the reference method can be accessed at the following location: www.Cartagenia/results. Additional description of the Cologuard test process, warnings and precautions can be found at www.ZAP GroupogCheckPoint HRrd.com. Stool specimen (specimen) 12/27/2022 9:47 AM EDT 12/29/2022 7:44 PM EDT Dory Wen MD LAB MOLECULAR DIAGNOS TICS ORDERABLES Final Result [facility] (CLIA #:[id number]) [place] [address], [place] [phone] from Last 3 Months or Most Recently Relevant to Health Maintenance [facility] MED[facility] STAND ADULT Care Teams Director Call Center Sales Relationship Specialty Start Date End Date Dory Ray MD [address] [place] [phone] PCP - General Family Medicine 01/03/19 Jeane Lemons Recreational Vehicle Resort ManagerRegistered Nurse Cardiovascular Icu 11/09/23
--- OUTSIDE RECORDS SUMMARY | 2025-01-08 15:29 | XMS_ITS | Encounter Summary ---
Author Organization [employer] Address [address] [place] [address] 7 [place] [address] Care Team Providers Care Quarrying Manager Name Role Phone Dory Ray MD Primary Care Provide r Le Us Unavailable Reason for Visit * Reason Comments Med Refill Encounter Details Date Type Department Care Team (Late st Contact Info) Description 04/08/2024 Refill [facility] [address] [place] [address] Dory Ray MD [address] [place] [address] Chronic right-sided low back pain with right-sided [...] of the following? None of the above;Lead [place] or Pipes;Pests such as bugs, ants, [...] 01/09/2025 10:45 AM EDT Office Visit [facility] [address] [place] [address] Dory Ray MD [address] [place] [address] 03/22/2025 10:30 AM EST Office Visit [facility] [address] [place] [address] Nathalia Allan OD [address] [place] [address] documented as of this encounter Goals Goal [...] documented as of this encounter Care Teams Quarrying Manager Relationship Specialty Start Date End Date Dory Ray MD [address] [place] [phone] PCP - General Family Medicine 01/03/19 Le Us 10/30/24 11/05/24 Jeane Lemons Party DemonstratorEmployment Specialist 11/09/23 documented as of this encounter
--- OUTSIDE RECORDS SUMMARY | 2025-01-08 15:29 | XMS_ITS | Encounter Summary ---
Author Organization [employer] Address [address] [place] [address] 7t [place] [address] Care Team Providers Care Hand I Blocker Name Role Phone Dory Ray MD Primary Care Provide r Le Us Unavailable Reason for Visit * Reason Comments Med Refill Encounter Details Date Type Department Care Team ([facility] Contact Info) Description 10/06/2022 Refill [facility] [address] [place], [place] [phone] Dory Ray MD [address] [place], [place] [phone] Chronic pain syndrome Social History Tobacco Use [...] Encounters Date Type Department Care Team ([facility] Contact Info) Description 01/09/2025 10:45 AM EDT Office Visit [facility] [address] [place] [phone] Dory Ray MD [address] [place], [place] [phone] 03/22/2025 10:30 AM EST Office Visit [facility] OPTOM[facility] [address] [place], [place] [phone] Nathalia Allan, OD [address] [place], [place] [phone] documented as of this encounter Visit Diagnoses Diagnosis Chronic pain syndrome documented in this encounter Additional Health Concerns Assessment Noted Time PHQ-9 Depression Total Score: 21 023 9:24 AM EDT documented as of this encounter Care Teams Hand I Blocker Relationship Specialty Start Date End Date Dory Ray MD [address] [place], [place] [phone] PCP - General Family Medicine 01/03/19 Le Us 10/30/24 11/05/24 Jeane Lemons Supervisor GarageCertified Indoor Environmentalist 11/09/23 documented as of this encounter
--- OUTSIDE RECORDS SUMMARY | 2025-01-08 15:29 | XMS_ITS | Encounter Summary ---
Author Organization [employer] Address [address] [facility] 7t [place] [address] Care Team Providers Care Financial Aid Advisor Name Role Phone Dory Ray MD Primary Care Provide r Le Us Unavailable Reason for Visit * Reason Comments Med Refill Encounter Details Date Type Department Care Team ([facility] st Contact Info) Description 02/22/2024 Refill [facility] [address] [place] [address] Dory Ray MD [address] [place] [address] Chronic pain syndrome; Anxiety Social History Tobacco [...] of the following? None of the above;Lead [place] or Pipes;Pests such as bugs, ants, or [...] Description 01/09/2025 10:45 AM EDT Office Visit [facility] [address] [place] [address] Dory Ray MD [address] [place] [address] 03/22/2025 10:30 AM EST Office Visit [facility] [address] [place] [address] Nathalia Allan OD [address] [place] [address] documented as of this encounter Goals Goal [...] documented as of this encounter Care Teams Financial Aid Advisor Relationship Specialty Start Date End Date Dory Ray MD [address] [place] [phone] PCP - General Family Medicine 01/03/19 Le Us 10/30/24 11/05/24 Jeane Lemons Enlisted Aircrew/Aerial Observer/GunnerHarness Cutter 11/09/23 documented as of this encounter
--- OUTSIDE RECORDS SUMMARY | 2025-01-08 15:29 | XMS_ITS | Encounter Summary ---
Author Organization [employer] Address [address] [facility] 7t [place] [address] Care Team Providers Care Vise Hand Name Role Phone Dory Ray MD Primary Care Provide r Le Us Unavailable Reason for Visit * Reason Comments Med Refill Encounter Details Date Type Department Care Team ([facility] st Contact Info) Description 08/06/2023 Refill [facility] [address] [place] [address] Dory Ray MD [address] [place], [place] [phone] Chronic right-sided low back pain with right-sided [...] Visit [facility] [address] [place] [address] Dory Ray MD [address] [place] [address] 03/22/2025 10:30 AM EST Office Visit [facility] OPTOMETRY [address] [place] [address] Nathalia Allan, OD [address] [place] [address] documented as of this encounter Goals Goal [...] documented as of this encounter Care Teams Vise Hand Relationship Specialty Start Date End Date Dory Ray MD [address] [place] [address] PCP - General Family Medicine 01/03/19 Le Us 10/30/24 11/05/24 Jeane Lemons Manager Managed CareResearch Professor Of Biostatistics 11/09/23 documented as of this encounter
--- OUTSIDE RECORDS SUMMARY | 2025-01-08 15:29 | XMS_ITS | Encounter Summary ---
Author Organization [employer] Address [address] [place] [address] 7 [place] [address] Care Team Providers Care Malt Liquors Sales Supervisor Name Role Phone Dory Ray MD Primary Care Provide r Le Us Unavailable Reason for Visit * Reason Comments Med Refill Encounter Details Date Type Department Care Team ([facility] Contact Info) Description 08/05/2022 Refill [facility] [address] [place] [address] [phone] Dory Ray MD [address] [place] [address] [phone] Anxiety Social History Tobacco Use Types Packs/Day [...] Upcoming Encounters Date Type Department Care Team ([facility] Contact Info) Description 01/09/2025 10:45 AM EDT Office Visit [facility] [address] [place] [address] [phone] Dory Ray MD [address] [place], [place] [phone] 03/22/2025 10:30 AM EST Office Visit [facility] OPTOM[facility] [address] [place], [place] [phone] Nathalia Allan OD [address] [place], [place] [phone] documented as of this encounter Visit Diagnoses Diagnosis Anxiety Anxiety state, unspecified documented in this encounter Care Teams Malt Liquors Sales Supervisor Relationship Specialty Start Date End Date Dory Ray MD [address] [place], [place] [phone] PCP - General Family Medicine 01/03/19 Le Us 10/30/24 11/05/24 Jeane Lemons Senior Supplier Quality EngineerCore Microarchitect 11/09/23 documented as of this encounter
--- OUTSIDE RECORDS SUMMARY | 2025-01-08 15:29 | XMS_ITS | Clinical Summary ---
Author Organization [facility] Address [address] [place] [address] Phone Care Team Providers Care Landscape Account Manager Name Role Phone Dory Ray [...] Immunization Administration Dates Next Due Hepatitis B (Maztcdn-B-Pwgjn , Recombivax HB-Adult) 19yo and older 01/18/2007,08/24/2006 [...] Luo OTHER SURGICAL HISTORY 09/25/2020 Left PROCEDURE: [place] NEUROPLASTY &/TRANSPOSITION ULNAR NERVE ELBOW; COMMENT: Submuscular Transposition, Dr. Luo OTHER SURGICAL HISTORY 04/14/2012 Left PROCEDURE: NC DCMPRN FASCT F/ARM&WRST FLXR/XTNSR W/O DBRDMT; COMMENT: 1st [place] Compartment/De Quervain's Release, Dr. Luo Medical History [...] Recently Relevant to Health Maintenance Care Teams Landscape Account Manager Relationship Specialty Start Date End Date Dory Ray MD [address] [place] [phone] PCP - General Internal Medicine 12/30/20
--- OUTSIDE RECORDS SUMMARY | 2025-01-08 15:29 | XMS_ITS | Encounter Summary ---
Author Organization [employer] Address [address] [place] [address] 7 [place] [address] Care Team Providers Care Paraprofessional Aide Teacher Name Role Phone Dory Ray MD Primary Care Provide r Le Us Unavailable Reason for Visit * Reason Comments Med Refill Encounter Details Date Type Department Care Team (Late Contact Info) Description 07/20/2022 Refill [facility] [address] [place] [address] Eden Cobb MD [address] [place], [place] [phone] Migraine without status migrainosus, not intractable, unspecified [...] 10:45 AM EDT Office Visit [facility] [address] [place], [place] [phone] Dory Ray MD [address] [place], [place] [phone] 03/22/2025 10:30 AM EST Office Visit [facility] [address] [place], [place] [phone] Nathalia Allan, MEDINA [address] [place] [address] documented as of this encounter Visit Diagnoses Diagnosis Migraine without status migrainosus, not intractable, unspecified migraine type documented in this encounter Care Teams Paraprofessional Aide Teacher Relationship Specialty Start Date End Date Dory Ray MD [address] [place], [place] [phone] PCP - General Family Medicine 01/03/19 Le Us 10/30/24 11/05/24 Jeane Lemons Fat Pressroom WorkerCurtain Drier 11/09/23 documented as of this encounter
--- OUTSIDE RECORDS SUMMARY | 2025-01-08 15:29 | XMS_ITS | Encounter Summary ---
Author Organization [employer] Address [address] [place] [address] 7 [place] [address] Care Team Providers Care Varnish Maker Name Role Phone Dory Ray MD Primary Care Provide r Le Us Unavailable Reason for Visit * Reason Comments Med Change Request Encounter Details Date Type Department Care Team ([facility] st Contact Info) Description 08/01/2024 Refill [facility] MED[facility] [address] [place] [address] Dory Ray MD 230 [place] [address] Social History Tobacco Use Types Packs/Day Years [...] the past 12 months, has t he DealerRater, gas, oil or water company threatened to [...] Description 01/09/2025 10:45 AM EDT Office Visit [facility] [address] [place] [address] Dory Ray MD 230 [place] [address] 03/22/2025 10:30 AM EST Office Visit [facility] OPTOMETRY [address] [place] [address] Nathalia Allan, OD 230 [place] [address] documented as of this encounter Goals Goal [...] documented as of this encounter Care Teams Varnish Maker Relationship Specialty Start Date End Date Dory Ray MD 230 [place] [address] PCP - General Family Medicine 01/03/19 Le Us 10/30/24 11/05/24 Jeane Lemons Information Technology ArchitectTeaching Fellow 11/09/23 documented as of this encounter
--- OUTSIDE RECORDS SUMMARY | 2025-01-08 15:30 | XMS_ITS | Encounter Summary ---
Author Organization [employer] Address [address] [facility] 7t [place] [address] Care Team Providers Care Clinical Laboratory Science Professor Name Role Phone Dory Ray MD Primary Care Provide r Le Us Unavailable Reason for Visit * Reason Comments Med Refill Encounter Details Date Type Department Care Team (Late st Contact Info) Description 12/29/2022 Refill [facility] MED & PEDS [address] [place] [address] Sunshine James, 230 [place] [address] Strain of neck muscle, initial encounter; Neck [...] it when needed. Will forward message to [facility] f/u with pt. documented in this encounter Plan of Treatment Upcoming Encounters Date Type Department Care Team (Late st Contact Info) Description 01/09/2025 10:45 AM EDT Office Visit [facility] MEDICINE 230 [place] [address] Dory Ray MD 230 [place] [address] 03/22/2025 10:30 AM EST Office Visit [facility] OPTOMETRY [address] [place] [address] Nathalia Allan, OD 230 [place] [address] documented as of this encounter Visit Diagnoses Diagnosis Strain of neck muscle, initial encounter Neck pain Cervicalgia documented in this encounter Additional Health Concerns Assessment Noted Time PHQ-9 Depression Total Score: 24 023 9:07 AM EDT documented as of this encounter Care Teams Clinical Laboratory Science Professor Relationship Specialty Start Date End Date Dory Ray MD 230 [place] [address] PCP - General Family Medicine 01/03/19 Le Us 10/30/24 11/05/24 Jeane Lemons Fish Processing SupervisorCleaning Attendant 11/09/23 documented as of this encounter
--- OUTSIDE RECORDS SUMMARY | 2025-01-08 15:30 | XMS_ITS | Encounter Summary ---
Author Organization [employer] Address [address] [place] [address] 7 [place] [address] Care Team Providers Care Bindery Manager Name Role Phone Dory Ray MD Primary Care Provide r Le Us Unavailable Reason for Visit * Reason Comments Med Refill Encounter Details Date Type Department Care Team ([facility] Contact Info) Description 11/26/2022 Refill [facility] [address] [place] [address] NameSoy MD 230 [place] [address] Migraine without status migrainosus, not intractable, unspecified [...] 01/09/2025 10:45 AM EDT Office Visit [facility] MEDICINE [address] [place] [address] Dory Ray MD [address] [place], [place] [phone] 03/22/2025 10:30 AM EST Office Visit [facility] OPTOMETRY [address] [place], [place] [phone] Nathalia Allan, MEDINA 230 [place] [address] documented as of this encounter Visit Diagnoses Diagnosis Migraine without status migrainosus, not intractable, unspecified migraine type documented in this encounter Additional Health Concerns Assessment Noted Time PHQ-9 Depression Total Score: 21 023 9:24 AM EDT documented as of this encounter Care Teams Bindery Manager Relationship Specialty Start Date End Date Dory Ray MD 230 [place], [place] [phone] PCP - General Family Medicine 01/03/19 Le Us 10/30/24 11/05/24 Jeane Lemons Shipping/Receiving ManagerMedia Producer 11/09/23 documented as of this encounter
--- OUTSIDE RECORDS SUMMARY | 2025-01-08 15:30 | XMS_ITS | Encounter Summary ---
Author Organization [email or web address] Address [address] [facility] 7t [place] [address] Care Team Providers Care Jumpbasting Collar Baster Name Role Phone Dory Ray MD Primary Care Provide r Le Us Unavailable Encounter Details Date Type Department Care Team ([facility] st Contact Info) Description 01/12/2023 Abstract [facility] MEDICINE 230 [place], [place] [phone] Dory Ray MD 230 [place], [place] [phone] Social History Tobacco Use Types Packs/Day Years [...] Office Visit [facility] [address] [place] [address] Dory Ray MD 230 [place] [address] 03/22/2025 10:30 AM EST Office Visit [facility] OPTOMETRY [address] [place] [address] Jerrell, Nathalia, OD 230 [place] [address] documented as of this encounter Visit Diagnoses Not on filedocumented in this encounter Additional Health Concerns Assessment Noted Time PHQ-9 Depression Total Score: 24 023 9:07 AM EDT documented as of this encounter Care Teams Jumpbasting Collar Baster Relationship Specialty Start Date End Date Dory Ray MD 230 [place] [address] PCP - General Family Medicine 01/03/19 Le Us 10/30/24 11/05/24 Jeane Lemons Supervisor Sewing RoomPrimer Charger 11/09/23 documented as of this encounter
--- OUTSIDE RECORDS SUMMARY | 2025-01-08 15:30 | XMS_ITS | Encounter Summary ---
Author Organization [employer] Address [address] [place] [address] 7 [place] [address] Care Team Providers Care Loop Drier Operator Name Role Phone Dory Ray MD Primary Care Provide r Le Us Unavailable Reason for Visit * Reason Comments Med Refill Encounter Details Date Type Department Care Team (Late Contact Info) Description 11/16/2022 Refill [facility] MEDICINE [address] [place] [address] Eden Cobb MD [address] [place] [address] [phone] Anxiety Social History Tobacco Use Types Packs/Day [...] Description 01/09/2025 10:45 AM EDT Office Visit [facility] MED[facility] [address] [place] [address] [phone] Dory Ray MD 230 [place], [place] [phone] 03/22/2025 10:30 AM EST Office Visit [facility] OPTOMETRY [address] [place], [place] [phone] Nathalia Allan, MEDINA 230 [place] [address] documented as of this encounter Visit Diagnoses Diagnosis Anxiety Anxiety state, unspecified documented in this encounter Additional Health Concerns Assessment Noted Time PHQ-9 Depression Total Score: 21 023 9:24 AM EDT documented as of this encounter Care Teams Loop Drier Operator Relationship Specialty Start Date End Date Dory Ray MD 230 [place], [place] [phone] PCP - General Family Medicine 01/03/19 Le Us 10/30/24 11/05/24 Jeane Lemons Eyelet RiveterPaper Handler 11/09/23 documented as of this encounter
--- OUTSIDE RECORDS SUMMARY | 2025-01-08 15:30 | XMS_ITS | Encounter Summary ---
Author Organization [employer] Address [address] [facility] 7t [place] [address] Care Team Providers Care Personal Driver Name Role Phone Dory Ray MD Primary Care Provide r Le Us Unavailable Encounter Details Date Type Department Care Team ([facility] st Contact Info) Description 01/12/2023 Abstract [facility] MEDICINE 230 [place], [place] [phone] Dory Ray MD [address] [place], [place] [phone] Social History Tobacco Use Types Packs/Day Years [...] 01/09/2025 10:45 AM EDT Office Visit [facility] MEDICINE 230 [place] [address] Dory Ray MD [address] [place] [address] 03/22/2025 10:30 AM EST Office Visit [facility] OPTOMETRY [address] [place] [address] Jerrell, Nathalia, OD 230 [place] [address] documented as of this encounter Visit Diagnoses Not on filedocumented in this encounter Additional Health Concerns Assessment Noted Time PHQ-9 Depression Total Score: 24 023 9:07 AM EDT documented as of this encounter Care Teams Personal Driver Relationship Specialty Start Date End Date Dory Ray MD [address] [place] [address] PCP - General Family Medicine 01/03/19 Le Us 10/30/24 11/05/24 Jeane Lemons Peoplesoft FinancialsPresident College Or University 11/09/23 documented as of this encounter
--- OUTSIDE RECORDS SUMMARY | 2025-01-08 15:30 | XMS_ITS | Encounter Summary ---
Author Organization [employer] Address [address] [place] [address] 7 [place] [address] Care Team Providers Care Project Reservoir Engineer Name Role Phone Dory Ray MD Primary Care Provide r Magen Le Unavailable Reason for Visit * Reason Comments Med Refill Encounter Details Date Type Department Care Team ([facility] Contact Info) Description 12/09/2022 Refill [facility] MEDICINE [address] [place] [address] [phone] Dory Ray MD 230 [place], [place] [phone] Anxiety Social History Tobacco Use Types Packs/Day [...] [facility] Contact Info) Description 01/09/2025 10:45 AM EDT Office Visit [facility] MEDICINE [address] [place] [address] [phone] Dory Ray MD [address] [place], [place] [phone] 03/22/2025 10:30 AM EST Office Visit [facility] OPTOMETRY [address] [place], [place] [phone] Nathalia Allan, MEDINA 230 [place], [place] [phone] documented as of this encounter Visit Diagnoses Diagnosis Anxiety Anxiety state, unspecified documented in this encounter Additional Health Concerns Assessment Noted Time PHQ-9 Depression Total Score: 21 023 9:24 AM EDT documented as of this encounter Care Teams Project Reservoir Engineer Relationship Specialty Start Date End Date Dory Ray MD 230 [place], [place] [phone] PCP - General Family Medicine 01/03/19 Le Us 10/30/24 11/05/24 Jeane Lemons Electro Mechanical TechnologistSoftware Sales Manager 11/09/23 documented as of this encounter
--- OUTSIDE RECORDS SUMMARY | 2025-01-08 15:30 | XMS_ITS | Encounter Summary ---
Author Organization [employer] Address [address] [place] [address] 7t [place] [address] Care Team Providers Care Tank Wagon Driver Name Role Phone Dory Ray MD Primary Care Provide r Le Us Unavailable Reason for Visit * Reason Onset Date Comments antibiotic 12/09/2022 Encounter Details Date Type Department Care Team ([facility] st Contact Info) Description 12/09/2022 Telephone [facility] ADULT DENTAL [address] [place] [address] Dashawn Garcia DDS [address] [place], [place] [phone] antibiotic Social History Tobacco Use Types Packs/Day [...] after 6 on 12/09 to speak to health commissioner and nothing was sent to pharmacy health commissioner side either. Can something be sent to [...] she can call back and speak to health commissioner Or go to the emergency room. Patient understood DR documented in this encounter Plan of Treatment Upcoming Encounters Date Type Department Care Team (Late st Contact Info) Description 01/09/2025 10:45 AM EDT Office Visit [facility] MEDICINE [address] [place] [address] Dory Ray MD 230 [place] [address] 03/22/2025 10:30 AM EST Office Visit [facility] OPTOMETRY [address] [place] [address] Jerrell, Nathalia, OD 230 [place] [address] documented as of this encounter Visit Diagnoses Not on filedocumented in this encounter Additional Health Concerns Assessment Noted Time PHQ-9 Depression Total Score: 21 023 9:24 AM EDT documented as of this encounter Care Teams Tank Wagon Driver Relationship Specialty Start Date End Date Dory Ray MD 230 [place] [address] PCP - General Family Medicine 01/03/19 Le Us 10/30/24 11/05/24 Jeane Lemons Manager ContractingSod Farmer 11/09/23 documented as of this encounter
== END 2025-01-08 13:43 | disposition home or self-care (01) ==
LOC: HO.HCS 12:38
PROVIDERS: PCP Internal Medicine; Visit Provider Nurse Practitioner Family
DX: R07.89 Other chest pain (principal); R00.2 Palpitations; F17.210 Nicotine dependence, cigarettes, uncomplicated
CPT/HCPCS: 93010; 99204

== ENCOUNTER → 2025-01-08 12:37 | Outpatient (BNVA) | payer MEDICAID, SELFPAY | PROVIDERS: PCP Internal Medicine; Visit Provider Nurse Practitioner Family | DX: R00.2 Palpitations (principal); R07.89 Other chest pain; F17.210 Nicotine dependence, cigarettes, uncomplicated | CPT/HCPCS: 93005; 99212 ==

== ENCOUNTER 2025-01-17 09:00 | Outpatient (RCR) | payer MEDICAID, SELFPAY ==
--- NOTE | 2024-12-24 08:10 | MHC.PT.EP ---
[facility] [place] [facility] [address] Armando Garcia [address] [phone] F: [phone] F: [phone] F: [phone] F: [phone] Physical Therapy Plan of Care Date of Evaluation: 12/20/24 Date of Surgery: Diagnosis: Trochanteric bursitis, left hip Assessment: Pt is a pleasant and motivated 49yo F who presents to PT with L hip pain. Pain occasional radiates into LLE. She recently had a left hip injection with good relief. She presents to PT with current impairments in pain, decreased ROM, soft tissue restrictions, decreased muscle length, decreased strength, impaired posture, and impaired gait. She is limited functionally by prolonged standing, walking, stair navigation, and sleeping. She is a good candidate for skilled PT in order to address current impairments to facilitate return to PLOF. She is recommended to be seen 2x/week for 4 weeks and will be reassessed Frequency and Duration: The patient will be seen 2x/week for 4 weeks Short Term Goals: Pt will be I with HEP to promote self management of symptoms Pt will improve L hip IR rotation strength to at least 4/5 Flower Buncher Or Picker Goals: Pt will tolerate prolonged standing and walking > 30 minutes with minimal to no pain Pt will ascend/descend 1 flight of stairs with reciprocal pattern without pain Pt will demonstrate improvements in function as evidenced by statistically significant improvement in LEFI outcome measure Treatment Plan: Modalities to reduce pain, spasms and effusion. Manual therapy to restore motion and function. Therapeutic exercise to improve strength and flexibility. Neuromuscular re-education for posture and balance. Therapeutic activities to return to functional activities of daily living. Electronically signed by: Margarita Jarquin, PT, DPT Please sign and return to therapist. Thank you for your referral.
--- NOTE | 2025-01-17 12:32 | MHC.PT.DC ---
[facility] [place] Office [place] Office [place] Office [address] Armando Garcia [address] [phone] F: [phone] F: [phone] F: [phone] F: [phone] Physical Therapy Discharge Report Diagnosis: Trochanteric bursitis, left hip Date of Surgery: Date of Evaluation: 12/20/24 Date of Discharge: 01/17/25 Treatments to Date: 5 Cancellations to Date: No Shows to Date: 3 Discharge Status: Improved Function Independent with HEP Discharge Summary: Pt has had fair attendance with PT and had 3 no show appointments since SOC. She has made progress with PT. She has had a decrease in pain and has improved her score on LEFI outcome measure from 32/80 on initial PT evaluation to 52/80 today. She demonstrates independence with HEP. She is being D/C to HEP at this time. I provided her with printed, updated copy of HEP Electronically signed by: Margarita Bernabe, PT, DPT Please sign and return to therapist. Thank you for your referral.
== END 2025-01-17 12:32 | disposition home or self-care (01) ==
LOC: HO.PT 09:00
PROVIDERS: PCP Internal Medicine; Visit Provider Physician Assistant
DX: M70.62 Trochanteric bursitis, left hip (principal)
CPT/HCPCS: 97110; 97162

== ENCOUNTER → 2025-01-21 08:44 | Outpatient (REF) | payer MEDICAID, SELFPAY ==
--- NOTE | 2025-01-21 08:47 | HM_ITS ---
* Total monitoring time 2 days and 21 hours. * Underlying rhythm is sinus with an average rate of 94/Min. About 30% of the time, rate > 100/Min. * Rare supraventricular ectopy. * Rare ventricular ectopy. * No significant pauses or high-grade AV blocks. * No patient markers or diary events. MTDD
--- OUTSIDE RECORDS SUMMARY | 2025-01-21 09:39 | XMS_ITS | Encounter Summary ---
Author Organization [employer] Address [address] [facility] 7t [place] [address] Care Team Providers Care Delivery Crew Member Name Role Phone Dory Ray MD Primary Care Provide r Le Us Unavailable Encounter Details Date Type Department Care Team ([facility] Contact Info) Description 04/07/2022 Orders Only [facility] MEDICINE 230 [place] [address] Rohini Middleton MD [address] [place] [address] Pain (Primary Dx) Social History Tobacco Use [...] Upcoming Encounters Date Type Department Care Team ([facility] Contact Info) Description 03/22/2025 10:30 AM EST Office Visit [facility] OPTOMETRY [address] [place] [address] Nathalia Allan MEDINA 230 [place] [address] documented as of this encounter Visit Diagnoses Diagnosis Pain- Primary Generalized pain documented in this encounter Care Teams Delivery Crew Member Relationship Specialty Start Date End Date Dory Ray MD 230 [place], [place] [phone] PCP - General Family Medicine 01/03/19 Le Us 10/30/24 11/05/24 Jeane Lemons Crop Quantitative GeneticistDirector Rehabilitation Program 11/09/23 documented as of this encounter
--- OUTSIDE RECORDS SUMMARY | 2025-01-21 09:40 | XMS_ITS | Encounter Summary ---
Author Organization [employer] Address [address] [place] [address] 7 [place] [address] Care Team Providers Care Safety Security Officer Name Role Phone Dory Ray MD Primary Care Provide r Le Us Unavailable Reason for Visit * Reason Comments Med Refill Encounter Details Date Type Department Care Team (Late Contact Info) Description 06/22/2022 Refill [facility] MEDICINE 230 [place] [address] Name, MD Soy 230 [place] [address] Recurrent major depressive episodes, moderate (CMS/HCC); Migraine [...] Department Care Team (Late Contact Info) Description 03/22/2025 10:30 AM EST Office Visit [facility] OPTOMETRY [address] [place] [address] Nathalia Allan, OD 230 [place] [address] documented as of this encounter Visit Diagnoses Diagnosis Recurrent major depressive episodes, moderate (CMS/HCC) (HCC) Major depressive disorder, recurrent episode, moderate Migraine without status migrainosus, not intractable, unspecified migraine type documented in this encounter Care Teams Safety Security Officer Relationship Specialty Start Date End Date Dory Ray MD 230 [place] [address] PCP - General Family Medicine 01/03/19 Le Us 10/30/24 11/05/24 Jeane Lemons Train PlannerReligious Leader 11/09/23 documented as of this encounter
--- OUTSIDE RECORDS SUMMARY | 2025-01-21 09:40 | XMS_ITS | Encounter Summary ---
Author Organization [employer] Address [address] [place] [address] 7t [place] [address] Care Team Providers Care Casting Machine Operator Helper Name Role Phone Dory Ray MD Primary Care Provide r Le Us Unavailable Reason for Visit * Reason Onset Date Comments requesting call back 03/24/2022 Encounter Details Date Type Department Care Team ([facility] st Contact Info) Description 03/24/2022 Telephone [facility] MEDICINE 230 [place] [address] Dory Ray MD 230 [place] [address] requesting call back Social History Tobacco Use [...] pt returning call Please contact pt at [phone] documented in this encounter Plan of Treatment Upcoming Encounters Date Type Department Care Team (Late st Contact Info) Description 03/22/2025 10:30 AM EST Office Visit [facility] OPTOMETRY [address] [place] [address] Nathalia Allan, OD 230 [place] [address] documented as of this encounter Visit Diagnoses Not on filedocumented in this encounter Care Teams Casting Machine Operator Helper Relationship Specialty Start Date End Date Dory Ray MD 230 [place] [address] PCP - General Family Medicine 01/03/19 Le Us 10/30/24 11/05/24 Jeane Lemons Lead Etl DeveloperBusiness Services Associate 11/09/23 documented as of this encounter
--- OUTSIDE RECORDS SUMMARY | 2025-01-21 09:41 | XMS_ITS | Encounter Summary ---
Author Organization [employer] Address [address] [place] [address] 7 [place] [address] Care Team Providers Care Building Appraiser Name Role Phone Dory Ray MD Primary Care Provide r Le Us Unavailable Reason for Visit * Reason Comments Med Refill Encounter Details Date Type Department Care Team (Late st Contact Info) Description 09/06/2024 Refill [facility] MEDICINE [address] [place] [address] Dory Ray MD 230 [place] [address] Chronic right-sided low back pain with right-sided [...] Description 03/22/2025 10:30 AM EST Office Visit [facility] OPTOMETRY [address] [place] [address] Jerrell, Nathalia, OD [address] [place] [address] documented as of this encounter Goals Goal [...] documented as of this encounter Care Teams Building Appraiser Relationship Specialty Start Date End Date Barciona Wen, Lindy, MD [address] [place] [address] PCP - General Family Medicine 01/03/19 Le Us 10/30/24 11/05/24 Jeane Lemons Setup OperatorDevelopment Mgr 11/09/23 documented as of this encounter
--- OUTSIDE RECORDS SUMMARY | 2025-01-21 09:41 | XMS_ITS | Encounter Summary ---
Author Organization [employer] Address [address] [place] [address] 7 [place] [address] Care Team Providers Care Data Analyst Report Writer Name Role Phone Dory Ray MD Primary Care Provide r Le Us Unavailable Reason for Visit * Reason Comments Med Refill Encounter Details Date Type Department Care Team ([facility] st Contact Info) Description 09/06/2024 Refill [facility] MEDICINE [address] [place] [address] Katerine Killian MD [address] [place] [address] Social History Tobacco Use Types Packs/Day Years [...] 10:30 AM EST Office Visit [facility] OPTOMETRY [address] [place] [address] Jerrell, Megan, OD 230 [place] [address] documented as of this encounter Goals Goal [...] as of this encounter Care Teams Data Analyst Report Writer Relationship Specialty Start Date End Date Dory Ray MD [address] [place] [address] PCP - General Family Medicine 01/03/19 Le Us 10/30/24 11/05/24 Jeane Lemons Licensed Clinical Social WorkerRoad Oiler 11/09/23 documented as of this encounter
--- OUTSIDE RECORDS SUMMARY | 2025-01-21 09:41 | XMS_ITS | Encounter Summary ---
Author Organization [employer] Address [address] [place] [address] 7 [place] [address] Care Team Providers Care Dish Carrier Name Role Phone Dory Ray MD Primary Care Provide r Le Us Unavailable Reason for Visit * Reason Comments Med Refill Encounter Details Date Type Department Care Team (Late st Contact Info) Description 03/19/2024 Refill [facility] MEDICINE 230 [place] [address] Dory Ray MD [address] [place] [address] Essential hypertension Social History Tobacco Use Types [...] of the following? None of the above;Lead [place] or Pipes;Pests such as bugs, ants, or [...] Description 03/22/2025 10:30 AM EST Office Visit [facility] OPTOMETRY [address] [place] [address] Jerrell, Nathalia, OD [address] [place] [address] documented as of this encounter Goals Goal [...] documented as of this encounter Care Teams Dish Carrier Relationship Specialty Start Date End Date Barciona Wen, Lindy, MD 230 [place] [address] PCP - General Family Medicine 01/03/19 Le Us 10/30/24 11/05/24 Jeane Lemons Etcher HandCall Circuit Worker 11/09/23 documented as of this encounter
--- OUTSIDE RECORDS SUMMARY | 2025-01-21 09:41 | XMS_ITS | Encounter Summary ---
Author Organization [employer] Address [address] [place] [address] 7 [place] [address] Care Team Providers Care Enterprise Software Developer Name Role Phone Dory Ray MD Primary Care Provide r Le Us Unavailable Reason for Visit * Reason Onset Date Comments Durable Medical Equipment 03/21/2024 Encounter Details Date Type Department Care Team (Late st Contact Info) Description 03/21/2024 Telephone [facility] MEDICINE [address] [place] [address] Dory Ray MD [address] [place] [address] Durable Medical Equipment Social History Tobacco Use [...] of the following? None of the above;Lead [place] or Pipes;Pests such as bugs, ants, [...] requesting DME for Wipes. Contact pt at [phone] documented in this encounter Plan of Treatment Upcoming Encounters Date Type Department Care Team (Late st Contact Info) Description 03/22/2025 10:30 AM EST Office Visit [facility] OPTOMETRY [address] [place] [address] Nathalia Allan, OD [address] [place] [address] documented as of this encounter Goals Goal [...] as of this encounter Care Teams Enterprise Software Developer Relationship Specialty Start Date End Date Dory Ray MD [address] [place] [address] PCP - General Family Medicine 01/03/19 Le Us 10/30/24 11/05/24 Jeane Lemons Tool Grinder Set Up Operator GearPolice Justice 11/09/23 documented as of this encounter
--- OUTSIDE RECORDS SUMMARY | 2025-01-21 09:41 | XMS_ITS | Encounter Summary ---
Author Organization [employer] Address [address] [place] [address] 7 [place] [address] Care Team Providers Care Roughing Mill Operator Name Role Phone Dory Ray MD Primary Care Provide r Le Us Unavailable Reason for Visit * Reason Comments Med Refill Encounter Details Date Type Department Care Team (Late st Contact Info) Description 04/10/2024 Refill [facility] MED[facility]INE 230 [place] [address] Dory Ray MD 230 [place], [place] [phone] Chronic right-sided low back pain with right-sided [...] of the following? None of the above;Lead [place] or Pipes;Pests such as bugs, ants, or [...] Description 03/22/2025 10:30 AM EST Office Visit [facility] OPTOMETRY [address] [place] [address] Jerrell, Nathalia, OD [address] [place] [address] documented as of this encounter Goals Goal [...] documented as of this encounter Care Teams Roughing Mill Operator Relationship Specialty Start Date End Date Dory Ray MD [address] [place] [address] PCP - General Family Medicine 01/03/19 Le Us 10/30/24 11/05/24 Jeane Lemons Child Center AssistantCytopathologist 11/09/23 documented as of this encounter
--- OUTSIDE RECORDS SUMMARY | 2025-01-21 09:41 | XMS_ITS | Encounter Summary ---
Author Organization [employer] Address [address] [facility] 7t [place] [address] Care Team Providers Care Candle Extrusion Machine Operator Name Role Phone Dory Ray MD Primary Care Provide r Le Us Unavailable Reason for Visit * Reason Comments Med Refill Encounter Details Date Type Department Care Team ([facility] st Contact Info) Description 03/07/2022 Refill [facility] MEDICINE [address] [place] [address] Emilia De La Torre, MARIE [address] [place] [address] Fibromyalgia (Primary Dx) Social History Tobacco Use [...] . Pt stated will be traveling to [place] on 03/10/22. Last seen on 01/20/22. PCP Dr. Garcia documented in this encounter Plan of Treatment Upcoming Encounters Date Type Department Care Team (Late st Contact Info) Description 03/22/2025 10:30 AM EST Office Visit [facility] OPTOMETRY [address] [place] [address] Nathalia Allan, OD [address] [place] [address] documented as of this encounter Visit Diagnoses Diagnosis Fibromyalgia- Primary Unspecified myalgia and myositis documented in this encounter Care Teams Candle Extrusion Machine Operator Relationship Specialty Start Date End Date Dory Ray MD 230 [place] [address] PCP - General Family Medicine 01/03/19 Le Us 10/30/24 11/05/24 Jeane Lemons National SecretaryMetalworker 11/09/23 documented as of this encounter
--- OUTSIDE RECORDS SUMMARY | 2025-01-21 09:42 | XMS_ITS | Encounter Summary ---
Author Organization [employer] Address [address] [place] [address] 7 [place] [address] Care Team Providers Care Tiler Name Role Phone Dory Ray MD Primary Care Provide r Le Us Unavailable Reason for Visit * Reason Comments Med Refill Encounter Details Date Type Department Care Team (Late Contact Info) Description 08/05/2022 Refill [facility] MEDICINE [address] [place] [address] Dory Ray MD [address] [place] [address] Anxiety Social History Tobacco Use Types Packs/Day [...] Upcoming Encounters Date Type Department Care Team ([facility] Contact Info) Description 03/22/2025 10:30 AM EST Office Visit [facility] OPTOMETRY [address] [place] [address] Jerrell, Nathalia, OD [address] [place] [address] documented as of this encounter Visit Diagnoses Diagnosis Anxiety Anxiety state, unspecified documented in this encounter Care Teams Tiler Relationship Specialty Start Date End Date Dory Ray MD [address] [place] [address] PCP - General Family Medicine 01/03/19 Le Us 10/30/24 11/05/24 Jeane Lemons Supervising ProducerClinical Nurse Manager 11/09/23 documented as of this encounter
--- OUTSIDE RECORDS SUMMARY | 2025-01-21 09:42 | XMS_ITS | Encounter Summary ---
Author Organization [employer] Address [address] [facility] 7t [place] [address] Care Team Providers Care Custom Protection Officer Name Role Phone Dory Ray MD Primary Care Provide r Le Us Unavailable Reason for Visit * Reason Comments Med Refill Encounter Details Date Type Department Care Team ([facility] st Contact Info) Description 05/20/2023 Refill [facility] MEDICINE [address] [place] [address] Dory Ray MD [address] [place], [place] [phone] Chronic pain syndrome Social History Tobacco Use [...] Description 03/22/2025 10:30 AM EST Office Visit [facility] OPTOMETRY [address] [place], [place] [phone] Nathalia Allan, OD 230 [place] [address] documented as of this encounter Goals Goal [...] documented as of this encounter Care Teams Custom Protection Officer Relationship Specialty Start Date End Date Dory Ray MD [address] [place] [address] PCP - General Family Medicine 01/03/19 Le Us 10/30/24 11/05/24 Jeane Lemons Ceramics InstructorExtracorporeal Technician 11/09/23 documented as of this encounter
--- OUTSIDE RECORDS SUMMARY | 2025-01-21 09:42 | XMS_ITS | Encounter Summary ---
Author Organization [employer] Address [address] [place] [address] 7 [place] [address] Care Team Providers Care Vp Packaging Name Role Phone Dory Ray MD Primary Care Provide r Le Us Unavailable Reason for Visit * Reason Comments Med Refill Encounter Details Date Type Department Care Team (Late Contact Info) Description 07/20/2022 Refill [facility] [address] [place] [address] Eden Cobb MD [address] [place] [address] Migraine without status migrainosus, not intractable, unspecified [...] Description 03/22/2025 10:30 AM EST Office Visit [facility] OPTOMETRY [address] [place] [address] Nathalia Allan, OD [address] [place] [address] documented as of this encounter Visit Diagnoses Diagnosis Migraine without status migrainosus, not intractable, unspecified migraine type documented in this encounter Care Teams Vp Packaging Relationship Specialty Start Date End Date Dory Ray MD [address] [place] [address] PCP - General Family Medicine 01/03/19 Le Us 10/30/24 11/05/24 Jeane Lemons Network PlannerResourcing Consultant 11/09/23 documented as of this encounter
--- OUTSIDE RECORDS SUMMARY | 2025-01-21 09:42 | XMS_ITS | Encounter Summary ---
Author Organization [employer] Address [address] [place] [address] 7t [place] [address] Care Team Providers Care Physician Internist Name Role Phone Dory Ray MD Primary Care Provide r Le Us Unavailable Reason for Visit * Reason Onset Date Comments PA 07/29/2022 Encounter Details Date Type Department Care Team ([facility] st Contact Info) Description 07/29/2022 Telephone [facility] MEDICINE [address] [place] [address] Dory Ray MD [address] [place] [address] PA Social History Tobacco Use Types Packs/Day [...] [facility] [address] [place], [place] [phone] Nathalia Allan, MEDINA [address] [place] [address] documented as of this encounter Visit Diagnoses Not on filedocumented in this encounter Care Teams Physician Internist Relationship Specialty Start Date End Date Dory Ray MD [address] [place] [address] PCP - General Family Medicine 01/03/19 Le Us 10/30/24 11/05/24 Jeane Lemons Grain Wafer Machine OperatorKiln Maintenance 11/09/23 documented as of this encounter
--- OUTSIDE RECORDS SUMMARY | 2025-01-21 09:43 | XMS_ITS | Encounter Summary ---
Author Organization [employer] Address [address] [facility] 7t [place] [address] Care Team Providers Care Cloth Handler Name Role Phone Dory Ray MD Primary Care Provide r Le Us Unavailable Reason for Visit * Reason Comments Med Refill Encounter Details Date Type Department Care Team ([facility] st Contact Info) Description 02/22/2024 Refill [facility] CHC MED & PEDS [address] [place] [address] Dory Ray MD [address] [place] [address] Chronic pain syndrome; Anxiety Social History Tobacco [...] of the following? None of the above;Lead [place] or Pipes;Pests such as bugs, ants, or [...] Description 03/22/2025 10:30 AM EST Office Visit [facility] OPTOMETRY [address] [place] [address] Jerrell, Nathalia, OD [address] [place] [address] documented as of this encounter Goals Goal [...] documented as of this encounter Care Teams Cloth Handler Relationship Specialty Start Date End Date Dory Ray MD [address] [place] [address] PCP - General Family Medicine 01/03/19 Le Us 10/30/24 11/05/24 Jaene Lemons Assistant Manager/EmbalmerIt Sales Executive 11/09/23 documented as of this encounter
--- OUTSIDE RECORDS SUMMARY | 2025-01-21 09:43 | XMS_ITS | Encounter Summary ---
Author Organization [employer] Address [address] [place] [address] 7t [place] [address] Care Team Providers Care Loading Inspector Name Role Phone Dory Ray MD Primary Care Provide r Le Us Unavailable Reason for Visit * Reason Onset Date Comments Nurse Triage 10/11/2022 Encounter Details Date Type Department Care Team ([facility] st Contact Info) Description 10/11/2022 Telephone [facility] MEDICINE [address] [place] [address] Dory Ray MD 230 [place] [address] Nurse Triage Social History Tobacco Use Types [...] 10/11/2022 11:39 AM EDT Triage call with [employer] 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 Advised Pt to come to [facility] to be seen and Pt [...] accepted this outcome Please contact pt at [phone] (Kazakh speaker) documented in this encounter Plan of Treatment Upcoming Encounters Date Type Department Care Team (Late st Contact Info) Description 03/22/2025 10:30 AM EST Office Visit [facility] OPTOMETRY [address] [place] [address] Nathalia Allan, OD [address] [place] [address] documented as of this encounter Visit Diagnoses Not on filedocumented in this encounter Additional Health Concerns Assessment Noted Time PHQ-9 Depression Total Score: 21 023 9:24 AM EDT documented as of this encounter Care Teams Loading Inspector Relationship Specialty Start Date End Date Dory Ray MD [address] [place] [address] PCP - General Family Medicine 01/03/19 Le Us 10/30/24 11/05/24 Jeane Lemons Bolt SorterFinish Painter 11/09/23 documented as of this encounter
--- OUTSIDE RECORDS SUMMARY | 2025-01-21 09:43 | XMS_ITS | Encounter Summary ---
Author Organization [employer] Address [address] [facility] 7t [place] [address] Care Team Providers Care Supervisor Lime Name Role Phone Dory Ray MD Primary Care Provide r Le Us Unavailable Reason for Visit * Reason Comments Med Refill Encounter Details Date Type Department Care Team ([facility] st Contact Info) Description 08/06/2023 Refill [facility] MEDICINE [address] [place] [address] Dory Ray MD 230 [place], [place] [phone] Chronic right-sided low back pain with right-sided [...] Description 03/22/2025 10:30 AM EST Office Visit [facility] OPTOMETRY [address] [place], [place] [phone] Nathalia Allan OD 230 [place] [address] documented as of this encounter Goals Goal [...] as of this encounter Care Teams Supervisor Lime Relationship Specialty Start Date End Date Dory Ray MD [address] [place] [address] PCP - General Family Medicine 01/03/19 Le Us 10/30/24 11/05/24 Jeane Lemons Transportation SupervisorHuman Resource Intern 11/09/23 documented as of this encounter
--- OUTSIDE RECORDS SUMMARY | 2025-01-21 09:43 | XMS_ITS | Encounter Summary ---
Author Organization [employer] Address [address] [place] [address] 7 [place] [address] Care Team Providers Care Hosiery Repairer Name Role Phone Dory Ray MD Primary Care Provide r Le Us Unavailable Reason for Visit * Reason Comments Med Refill Encounter Details Date Type Department Care Team ([facility] st Contact Info) Description 08/23/2023 Refill [facility] ADULT DENTAL [address] [place] [address] Dashawn Garcia DDS [address] [place] [address] Social History Tobacco Use Types Packs/Day Years [...] of the following? None of the above;Lead [place] or Pipes;Pests such as bugs, ants, or [...] Description 03/22/2025 10:30 AM EST Office Visit [facility] OPTOMETRY [address] [place] [address] Nathalia Allan, OD 230 [facility] [place] [address] documented as of this encounter Goals Goal [...] documented as of this encounter Care Teams Hosiery Repairer Relationship Specialty Start Date End Date Dory Ray MD [address] [place] [address] PCP - General Family Medicine 01/03/19 Le Us 10/30/24 11/05/24 Jeane Lemons Installation TechnicianTelecasting Technician 11/09/23 documented as of this encounter
--- OUTSIDE RECORDS SUMMARY | 2025-01-21 09:43 | XMS_ITS | Encounter Summary ---
Author Organization [employer] Address [address] [place] [address] 7t [place] [address] Care Team Providers Care Owner [employer] Name Role Phone Dory Ray MD Primary Care Provide r Le Us Unavailable Reason for Visit * Reason Comments Med Refill Encounter Details Date Type Department Care Team (Late Contact Info) Description 10/06/2022 Refill [facility] CHC MED & PEDS [address] [place] [address] Dory Ray MD [address] [place] [address] Chronic pain syndrome Social History Tobacco Use [...] Description 03/22/2025 10:30 AM EST Office Visit [facility] OPT[facility]RY [address] [place], [place] [phone] Nathalia Allan OD [address] [place] [address] documented as of this encounter Visit Diagnoses Diagnosis Chronic pain syndrome documented in this encounter Additional Health Concerns Assessment Noted Time PHQ-9 Depression Total Score: 21 023 9:24 AM EDT documented as of this encounter Care Teams Owner [employer] Relationship Specialty Start Date End Date Dory Ray MD [address] [place] [address] PCP - General Family Medicine 01/03/19 Le Us 10/30/24 11/05/24 Jeane Lemons Rn AdviceSignal Wirer 11/09/23 documented as of this encounter
--- OUTSIDE RECORDS SUMMARY | 2025-01-21 09:43 | XMS_ITS | Encounter Summary ---
Author Organization [employer] Address [address] [place] [address] 7 [place] [address] Care Team Providers Care Sausage Mixer Name Role Phone Dory Ray MD Primary Care Provide r Le sU Unavailable Reason for Visit * Reason Comments Med Refill Encounter Details Date Type Department Care Team (Late st Contact Info) Description 04/08/2024 Refill [facility] MEDICINE [address] [place] [address] Dory Ray MD [address] [place] [address] Chronic right-sided low back pain with right-sided [...] of the following? None of the above;Lead [place] or Pipes;Pests such as bugs, ants, or [...] Description 03/22/2025 10:30 AM EST Office Visit [facility] OPTOMETRY [address] [place] [address] Jerrell, Nathalia, OD [address] [place] [address] documented as of this encounter Goals Goal [...] documented as of this encounter Care Teams Sausage Mixer Relationship Specialty Start Date End Date Dory Ray MD [address] [place] [address] PCP - General Family Medicine 01/03/19 Le Us 10/30/24 11/05/24 Jeane Lemons Geospatial Intelligence AnalystMed Specialist 11/09/23 documented as of this encounter
--- OUTSIDE RECORDS SUMMARY | 2025-01-21 09:44 | XMS_ITS | Encounter Summary ---
Author Organization [employer] Address [address] [place] [address] 7 [place] [address] Care Team Providers Care Theoretical Physicist Name Role Phone Dory Ray MD Primary Care Provide r Le Us Unavailable Reason for Visit * Reason Comments Med Change Request Encounter Details Date Type Department Care Team ([facility] st Contact Info) Description 08/01/2024 Refill [facility] MEDICINE [address] [place] [address] Dory Ray MD [address] [place] [address] Social History Tobacco Use Types Packs/Day Years [...] 03/22/2025 10:30 AM EST Office Visit [facility] OPTOMETRY [address] [place] [address] Jerrell, Nathalia, OD [address] [place] [address] documented as of this encounter Goals Goal [...] documented as of this encounter Care Teams Theoretical Physicist Relationship Specialty Start Date End Date Dory Ray MD [address] [place] [address] PCP - General Family Medicine 01/03/19 Le Us 10/30/24 11/05/24 Jeane Lemons Heel Seat PounderTrainer 11/09/23 documented as of this encounter
--- OUTSIDE RECORDS SUMMARY | 2025-01-21 09:44 | XMS_ITS | Clinical Summary ---
Author Organization [employer] Address [address] [place] [address] [address] [place] [address] Care Team Providers Care Swinging Cut Off Saw Operator Name Role Phone Dory Ray MD Primary Care Provide r Allergies No known active allergies Medications * This document contains information received from the source organization and may not represent a complete record from that organization. chlorhexidine (Peridex) 0.12 % solution USE 15 ML IN THE MOUTH OR THROAT IF NEEDED IN THE MORNING, AT NOON, AND AT BEDTIME (PROPHYLAXIS) FOR UP TO 5 DAYS. 473 mL 023 Active Myrbetriq 50 MG 24 hr [...] THE MORNING 90 tablet 1 024 Active butalbital-acetam inophen-caffeine 50-325-40 MG tabletIndications :Chronic nonintractable headache, unspecified headache type TAKE 1 TABLET BY MOUTH EVERY 4 HOURS 20 tablet 1 024 Active Diclofenac Sodium 1 % gel Apply 2 g topically if needed in the morning, at noon, in the evening, and at bedtime (pain). 150 g 3 024 Active SUMAtriptan (Imitrex) 50 MG tabletIndications :Chronic [...] crush, chew, or split. 30 tablet 11 Active betamethasone, augmented, (Diprolene) 0.05 % ointmentIndicatio ns:Dermatitis Apply topically 2 times daily. 50 g 2 024 Active hydrOXYzine HCl (Atarax) 25 MG tablet Take 1-2 tablets by mouth if needed in the morning and at bedtime for anxiety (or insomnia). Active QUEtiapine (SEROquel) 25 MG tablet Take 1-2 tablets by mouth if needed at bedtime (insomina). 025 Active LORazepam (Ativan) 0.5 MG tablet Take 1 tablet by mouth if needed in the morning and at bedtime for anxiety (severe anxiety). Active traZODone (Desyrel) 50 MG tabletIndications :Recurrent major depressive episodes, moderate (CMS/HCC) (HCC) TAKE 1 TABLET BY MOUTH EVERY DAY AT BEDTIME NEEDED FOR SLEEP 90 tablet 1 025 Active topiramate (Topamax) [...] HOURS NEEDED FOR PAIN 90 tablet Active famotidine (Pepcid) 20 MG tabletIndications :Gastroesophageal reflux disease, unspecified whether esophagitis present TAKE 1 TABLET BY MOUTH TWICE A DAY 180 tablet Active lidocaine (Lidoderm) 5 % patchIndications: Chronic right-sided low back pain with right-sided sciatica APPLY 1 PATCH TOPICALLY ONCE PER DAY. REMOVE & DISCARD PATCH WITHIN 12 HOURS OR DIRECTED BY MD. 30 patch 1 025 Active albuterol (Ventolin HFA) 108 (90 Base) MCG/ACT inhalerIndication s:Asthma-chronic obstructive pulmonary disease overlap syndrome (CMS/HCC) (HCC) Inhale 2 puffs every 4 (four) hours if needed for wheezing. 18 g 2 Active fluticasone (Flonase Allergy Relief) 50 MCG/ACT nasal spray Administer 2 sprays into affected nostril(s) at bed time. 022 2024 Discontinued Ventolin HFA 108 (90 Base) MCG/ACT inhalerIndication s:Mild intermittent asthma without complication INHALE 2 PUFFS BY MOUTH EVERY 4 HOURS NEEDED FOR WHEEZING 18 g 1 023 2024 Discontinued(R eorder (will not trigger notification to Pharmacy)) albuterol (2.5 MG/3ML) 0.083% nebulizer solutionIndicatio ns:Mild intermittent asthma with exacerbation Take 3 mL (2.5 mg) by nebulization every 4 (four) hours if needed for wheezing. 75 mL 11 023 2024 Discontinued baclofen (Lioresal) 10 MG tabletIndications :Strain of neck muscle, initial encounter,Neck pain TAKE 1 TABLET BY MOUTH EVERY 12 (TWELVE) HOURS IF NEEDED FOR MUSCLE SPASMS FOR UP TO 15 DAYS. 30 tablet 023 2024 Discontinued permethrin (Elimite) 5 % creamIndications: Rash and nonspecific skin eruption apply to skin from hairline to toes and wash off 8-10 hours later 60 g 024 2024 Discontinued diphenhydrAMINE (BENADryl) 25 MG tabletIndications :Rash and nonspecific skin eruption Take 1 tablet (25 mg) by mouth every 6 (six) hours if needed for itching. 30 tablet 024 2024 Discontinued budesonide-formot kori (Symbicort) 160-4.5 MCG/ACT inhalerIndication s:Asthma-chronic obstructive pulmonary disease overlap syndrome (CMS/HCC) (HCC) Inhale 2 puffs in the morning and at bedtime. Rinse mouth with water after use to reduce aftertaste and incidence of candidiasis. Do not swallow. 1 each 2024 Discontinued nicotine polacrilex (Commit) 4 MG lozenge DISSOLVE 1 LOZENGE (4 MG) IN THE MOUTH EVERY 2 (TWO) HOURS IF NEEDED FOR SMOKING CESSATION. 144 lozenge 5 2024 Discontinued ziprasidone (Geodon) 40 MG capsule Take 1 capsule by mouth with breakfast and with evening meal. 025 2024 Discontinued zolpidem (Ambien) 5 MG tablet Take 5 mg by mouth at bedtime. 2024 Discontinued nicotine (Nicoderm, Step 2) 14 MG/24HR patch PLACE 1 PATCH ON THE SKIN 1 TIME EACH DAY AT THE SAME TIME. 42 patch 1 2024 Discontinued famotidine (Pepcid) 20 MG tabletIndications :Gastroesophageal reflux [...] 8 HOURS NEEDED FOR PAIN 90 tablet 2024 Discontinued Active Problems Problem Noted Date Diagnosed Date Encounter for preventive care 01/09/2025 Assessment & Plan (01/09/2025 2:05 PM EDT): See HPI Presbyesophagus 11/14/2024 Dyspnea on exertion 10/04/2024 Assessment [...] PRN Indication: bulging lumbar disc, fibromyalgia Last DIRECTOR OF MATH Agreement: 03/13/24 Additional considerations/risk factors: BZO Tier II (DIRECTOR OF MATH visits Q3 months) - last evaluated Mar [...] and non-pharm modalities Continues with COT. See enrober for urine/pill count. Assessment & Plan (01/10/2024 [...] declines local injections and pain management referral Urinary frequency 01/11/2023 Assessment & Plan (01/09/2025 2:08 PM EDT): Problem is chronic patient reports she missed her appointment with urology and will re-schedule it Weight gain 12/14/2022 Assessment & Plan (05/31/2023 [...] overlap syndrome (CMS/HCC) 03/04/2022 Assessment & Plan (01/09/2025 2:04 PM EDT): Smoking cessation counseling done today Patient reports she has sometimes symptoms at night specially at night coughing but tells me albuterol really helps when this happens, I will refilled her albuterol inhaler today and I also juvenile counselor about avoiding triggers Assessment & Plan (08/15/2024 12:43 PM EDT): [...] referral Essential hypertension 03/04/2022 Assessment & Plan (01/09/2025 1:59 PM EDT): I advised: - Aerobic exercise to reduce BP. Initial [...] consulting health care provider Assessment & Plan (10/04/2024 4:55 PM EDT): [...] low back pain 08/25/2016 Assessment & Plan (01/09/2025 2:06 PM EDT): Patient will c/w PT and pain meds PRN Assessment & Plan (08/15/2024 12:42 PM EDT): [...] Marlene agrees to go in person to [facility] to follow up on status of a therapist. She also agrees to follow up in 2 weeks via telehealth for support. She agrees to come in person if needed, to sign a release for me to speak with [facility]. I also recommended acupuncture and discussed [...] or fibromlagia Acute right ankle pain 01/11/202307/13 Dental caries 12/07/2022 07/14/2023 Chest discomfort 04/06/2022 [...] Encounters Date Type Department Care Team Description 01/17/2025 Telephone [facility] [address] [place] [address] Dory Ray MD Letter Request (I called the patient, regarding a request for a letter for a first floor apartment. She stated that she lives on a second floor, but has difficulty negotiating stairs. She is also requesting for the bathtub in her current apartment to be replaced, because it is very old; she has difficulty getting in and out, and there are no grab bars in the bathroom. She also needs to have the rugs removed, because there is a flores and mice infestation in her building. She constantly uses bug spray, which is caus) 01/09/2025 10:45 AM EDT Office Visit [facility] [address] [place] [address] Dory Ray MD Essential hypertension (Primary Dx); Asthma-chronic obstructive pulmonary disease overlap syndrome (CMS/HCC) (HCC); Encounter for preventive care; Chronic bilateral low back pain with bilateral sciatica; Urinary frequency 01/09/2025 Travel 01/08/2025 Telephone [facility] [address], [place] [phone] Dory Ray MD CHART PREP 01/07/2025 Refill [facility] [address] [place] [address] Dory Ray MD Chronic right-sided low back pain with right-sided sciatica 01/03/2025 Refill [facility] [address] [place] [address] Dory Ray MD Gastroesophageal reflux disease, unspecified whether esophagitis present 01/02/2025 Orders Only GENERIC EXTERNAL DATA DEPARTMENT Provider, Generic External Data 01/01/2025 Patient Outreach [facility] [address] [place] [address] Nevaeh Rosa M Pre-visit Planning (SDOH screening completed on 05/16/2024) 01/01/2025 Refill [facility] [address] [place] [address] Dory Ray MD Chronic right-sided low back pain with right-sided sciatica 12/28/2024 Telephone [facility] [address] [place], [place] [phone] Dory Ray MD Care Coordination (ICP Care Plan) 12/13/2024 Orders Only [facility] External Provider, [facility] 12/02/2024 Refill [facility] [address] [place] [address] Dory Ray MD Chronic right-sided low back pain with right-sided sciatica 11/26/2024 Refill [facility] [address] [place] [address] Dory Ray MD Essential hypertension 11/14/2024 Results Follow-Up [facility] [address] [place] [address] Dory Ray MD FL Esophagus Barium Swallow 11/10/2024 Refill [facility] [address] [place] [address] Dory Ray MD Generalized anxiety disorder 11/08/2024 Telephone [facility] [address] [place] [address] Dory Ray MD Appointment Request 11/08/2024 Results Follow-Up [facility] [address] [place] [address] Soft Tissue Neck w/ Contrast 11/06/2024 Refill [facility] [address] [place] [address] Dory Ray MD Chronic right-sided low back pain with right-sided sciatica 11/05/2024 Patient Outreach [facility] [address] [place] [address] Dory Ray MD Care Coordination (Communication to PT assigned CP Coordinator ) 11/02/2024 Telephone [facility] [employer] [facility] [address] [place], [place] [phone] Cailin Iverson CNP 11/01/2024 1:00 PM EDT Office Visit [facility] [address] [place] [phone] Cailin Iverson CNP Folliculitis (Primary Dx); Neck mass 11/01/2024 Travel 10/30/2024 Patient Outreach [facility] [address] [place], [place] [phone] Dory Ray MD Care Coordination ([facility] ED F/U) 10/30/2024 Patient Outreach [facility] [address], [place] [phone] Dory Ray MD Care Coordination ([facility] C3/Chart review) 10/30/2024 Patient Outreach [facility] [address] [place] [phone] Dory Ray MD 10/30/2024 Refill [facility] [address] [place] [phone] Dory Ray MD Chronic right-sided low back pain with right-sided sciatica 10/29/2024 Orders Only GENERIC EXTERNAL DATA DEPARTMENT Provider, Generic External Data from Last 3 Months Immunizations Immunization Administration Dates Next Due Hep B, adult 01/18/2007,08/24/2006 Influenza High-dose Quadriva lent Preservative Free 04/17/2014 Influenza injectable quadriv alent IIV4 with preservative 01/07/2017 Influenza injectable quadriv alent preservative free 01/08/2022,02/26/2020,03/07/2019,05/13 Influenza, IIV3, injectable 04/17/2014, 2 Influenza, Injectable, MDCK, preservative free 03/13/2024 Influenza, Recombinant, inje ctable, preservative free 12/05/2024 Influenza, injectable, quadr ivalent, preservative free, pediatric 12/10/2011 Moderna Covid-19 Vaccine 12+ 04/05/2021,08/31/19 21,08/06/2020 Pfizer Covid-19 Vaccine 12+ 01/04/2023 Pfizer Covid-19 Vaccine 12+ Bivalent 05/17/2022 Pneumococcal Conjugate PCV 20 09/05/2022 Pneumococcal Polysaccharide PPSV23 03/07/2019, RSV Bivalent 12/05/2024 Tdap 07/15/2023,12/10/2011 Zoster, Recombinant 07/12/2024,03/13/2024 Family History Medical History Relation Name Comments [...] Answer Date Recorded Patient Health Questionnaire-9 Score 6 01/09/2025 Patient Health Questionnaire-9 Score 6 01/09/2025 Last PHQ-9: Questionnaire Data Not on file [...] Answer Date Recorded Patient Health Questionnaire-2 Score 1 01/09/2025 Internet Access Answer Date Recorded Internet Access [...] Sign Reading Time Taken Comments Blood Pressure 120/78 01/09/2025 10:45 AM EDT Pulse 88 01/09/2025 10:45 AM EDT Temperature 35.9 C (96.7 F) 01/09/2025 10:45 AM EDT Respiratory Rate 21 01/09/2025 10:45 AM EDT Oxygen Saturation 94% 01/09/2025 10:45 AM EDT Inhaled Oxygen Concentration - - Weight 74.4 kg (164 lb) 01/09/2025 10:45 AM EDT Height 162.6 cm (5' 4 ) 01/09/2025 10:45 AM EDT Body Mass Index 28.15 01/09/2025 10:45 AM EDT Plan of Treatment Upcoming Encounters Date Type Department Care Team (Late st Contact Info) Description 03/22/2025 10:30 AM EST Office Visit [facility] [address] [place] [address] Jerrell, Nathalia, OD [address] [place] [address] Health Maintenance Due Date Last Done Comments CT Colonography 1975 Colonoscopy 1975 Dental Prophylaxis 1975 Dental X-Ray: Full Mouth 1975 FIT 1975 Sigmoidoscopy 1975 Disability Screening 1975 Family Planning (PISQ) 1988 Hepatitis B Vaccines (3 of 3 - 19+ 3-dose series) 03/15/2007 01/18/2007, 08/24/2006 Dental Oral Exam 01/23/2017 07/23/2016, 01/17/2015 Dental X-Ray: Bitewings 10/15/2019 10/13/2018 FOBT 12/28/2023 12/27/2022 COVID-19 Vaccine ( season) 2024 01/04/2023, 05/17/2022, 04/05/2021, Additional history exists SDOH Screening 05/16/2025 05/16/2024 Mammogram 06/27/2025 06/27/2024, 01/0 09/2024, 05/28/2023, Additional history exists Colorectal Cancer Screening 12/27/2025 FIT DNA/Cologuard 12/27/2025 12/27/2022 Diabetes: Hemoglobin A1C 01/02/2026 025, 11/11/2022, 10/07/2021 Alcohol/Substance Use Screening 01/09/2026 01/09/2025 Depression Screening 01/09/2026 01/09/2025, 01/10/20 Tobacco Screening 01/09/2026 01/09/2025 Pap Smear 02/21/2026 02/21/2023, 02/17/2017 Lipid Panel 06/15/2028 06/16/2023, 07/0 09/2021, 01/28/2021 Cervical Cancer Screening 07/18/2028 HPV/Cotest 07/18/2028 07/19/2023, 02/21/2023 DTaP/Tdap/Td Vaccines (3 - Td or Tdap) 07/14/2033 07/15/2023, 12/10/2011 Pneumococcal Vaccine: 50+ Years Completed 09/05/2022, 03/07/2019, 04/17/2014 HIV Screening Completed 06/26/2024 Hepatitis C Screening Completed 06/26/2024 Zoster Vaccines Completed 07/12/2024, 03/13/2024 Influenza Vaccine Completed 12/05/2024, , 01/08/2022, Additional history exists RSV Patients and Patients Aged 60 years or older Completed 12/05/2024 HIB Vaccines Aged Out No longer eligi [...] AUTO DIFFERENTIAL Routine 10/29/2024 11:49 AM EDT BI MAMMOGRAM SCREENING TOMOSYNTHESIS BILATERAL [...] AM EDT Narrative 01/02/2025 9:04 AM EDT [place] [address] XRay Report Signed Patient: Marlene Hicks MR#: [id number] : 1975 Acct:[id number] Age/Sex: 49 / F ADM Date: 01/02/25 Loc: [facility] Attending Dr: Xiao Macias [facility] Ordering Physician: Xiao Macias [id number] Date of Service: 01/02/25 Procedure(s): XR soft tissue neck Accession Number(s): [id number] cc: Dory Ray MD; Xiao Macias [facility] Reason for Exam: K22.2 - Esophageal obstruction [...] Michael Dhillon MD 01/02/2025 09:02 AM EDT Dictated By: Michael Dhillon MD Signed By: <Electronically signed by Michael Dhillon MD in OV> 01/02/25 0902 DD/ TD/TT: 01/02/25 0855 Cabin Equipment Supervisor: Procedure Note Donotuseinterpreter, Image - 01/02/2025 [place] [address] [place] [address] XRay Report Signed Patient: Crissy Hicks#: [id number] : 1975Acct:[id number] Age/Sex: 49 / FADM Date: 01/02/25 Loc: HO.VINAY Attending Dr: Xiao Macias [facility]- Ordering Physician: Xiao Macias [facility] Date of Service: 01/02/25 Procedure(s): XR soft tissue neck Accession Number(s): [id number] cc: Dory Ray MD; Xiao Macias [facility] Reason for Exam: K22.2 - Esophageal obstruction [...] Michael Dhillon MD 01/02/2025 09:02 AM EDT Dictated By: Michael Dhillon MD Signed By: <Electronically signed by Michael Dhillon MD in OV> 01/02/25 09 DD/ 0851 TD/TT: 01/02/25 0855 Cabin Equipment Supervisor: [facility] External Provider IMG XR PROCEDURES Final Result * VITAMIN D 25-OH (D2 AND D3) (01/02/2025 8:30 AM EDT) Vitamin D, 25-OH, D2 5 ng/mL [facility] Comment:This test was charly ramos and its analytical performancecharacteristics have been determined by [place]. It hasnot been cleared or approved by the U.S. Food and DrugAdministration. This assay has been validated pursuantto the CLIA regulations and is used for clinicalpurposes.THIS TEST WAS PERFORMED AT:[email or web address] [email or web address] [place] [address]MOGNZFETEJAL HANSEN MD,PHD Vitamin D, 25-OH, D3 33 ng/mL [facility] Comment:This test was develo ped and its analytical performancecharacteristics have been determined by [employer] [place], [place]. It hasnot been cleared or approved by the U.S. Food and DrugAdministration. This assay has been validated pursuantto the CLIA regulations and is used for clinicalpurposes. Vitamin D, 25-OH, Total 38 30 - 100 ng/mL [facility] Comment:Vitamin D, 25-Hydrox y reports concentrations [...] = 30 ng/mL.For additional information, please refer tohttp://[email or web address].TouchFrame/faq/JWU663(This link is being provided for informational/educational purposes only.) 01/02/2025 8:30 AM EDT 01/02/2025 8:37 AM EDT us Generic External Data Provider LAB BLOOD ORDERAB LES Final Result [facility] [address] [place] [phone] * Vitamin B12 (Cobalamin) and Folate Panel, Serum (01/02/2025 8:30 AM EDT) Vitamin B12 291 200 - 900 pg/mL [facility] Comment:NORMAL 200-900 PG/ML INDETERMINATE 160-199 PG/ML DEFICIENT < 160 PG/ML Folate >20.0 > or = 4.0 ng/mL [facility] Comment:Reference Values:> o r = 4.0 ng/mL< 4.0 ng/mL suggests folate deficiency Methotrexate, aminopterin and folinic acid(leucovorin) are chemotherapeutic agents whose molecularstructures are similar to folate; therefore, the Architectfolate assay cannot be used for patients using these drugs. 01/02/2025 8:30 AM EDT 01/02/2025 8:37 AM EDT Generic External Data Provider LAB BLOOD ORDERAB LES Final Result Performing Organization Address [facility] Co de Phone Number [facility] [address] [place] [phone] * TSH with Reflex to Free T4 (01/02/2025 8:30 AM EDT) TSH reflex Free T4 2.00 0.32 - 4.0 uIU/mL [facility] 01/02/2025 8:30 AM EDT 01/02/2025 8:37 AM EDT Generic External Data Provider LAB BLOOD ORDERAB LES Final Result Performing Organization Address [facility] Co de Phone Number [facility] [address] [place] [phone] * Tissue Transglutaminase Antibody, IgA (01/02/2025 8:30 AM EDT) Transglutaminase IgA <1.0 U/mL [facility] Comment:Value Interpretation ----- <15.0 Antibody not detected> or = 15.0 Antibody detectedTHIS TEST WAS PERFORMED AT:[employer] [place] [id number] WONG MD 01/02/2025 8:30 AM EDT 01/02/2025 8:37 AM EDT us Generic External Data Provider LAB BLOOD ORDERAB LES Final Result [facility] [address] [place] [phone] * Lipase (01/02/2025 8:30 AM EDT) Lipase 28 8 - 78 U/L [facility] 01/02/2025 8:30 AM EDT 01/02/2025 8:37 AM EDT us Generic External Data Provider LAB BLOOD ORDERAB LES Final Result Performing Organization Address [facility] Co de Phone Number [facility] [address] [place] [phone] * Hemoglobin A1c (01/02/2025 8:30 AM EDT) Hemoglobin A1c 5.7 <6.0 % [facility] Comment:Hemoglobin A1C Refer ence Range Adults: 4.8 - 6.0 % Non diabetic: < 6.0 % Goal: < 7.0 %Additional Action Suggested: > 8.0 %Note: Hemoglobin A1c results are invalid for patients with abnormal amounts of HbF. Blood transfusions may impact the HbA1c concentration in the patient sample. Estimated Average Glucose 117 mg/dL [facility] Comment:eAG = Estimated ave rage glucose which is %A1C expressed asaverage glucose, using the formula of the J5S-VjpqrglQucyarr Glucose study (ADAG), Diabetes Care, Vol.31,#8,Nov. 2007 01/02/2025 8:30 AM EDT 01/02/2025 8:37 AM EDT Generic External Data Provider LAB BLOOD ORDERAB LES Final Result Performing Organization Address [facility] Co de Phone Number [facility] [address] [place] [phone] * [facility] US Lower Extremity Arterial Duplex Bilateral With [place] (12/13/2024 12:40 PM EDT) 12/13/2024 12:4 0 PM EDT Narrative [facility] - 12/13/2024 2:13 PM EDT [address] [address] Ultrasound Report Signed Patient: Marlene Hicks MR#: [id number] : 1975 Acct:[id number] Age/Sex: 49 / F ADM Date: 12/13/24 Loc: HO.US Attending Dr: Reyes Otero MD Ordering Physician: Reyes Otero MD Date of Service: 12/13/24 Procedure(s): US arterial duplex BI w/ [place] Accession Number(s): [id number] cc: Dory Ray MD; Reyes Otero MD [...] 12/13/24 1410 DD/ 1240 TD/TT: 12/13/24 1310 Cabin Equipment Supervisor: Procedure Note Donotuseinterpreter, Image - 12/13/2024 [place] [address] Ultrasound Report Signed Patient: Crissy Hicks#: [id number] : 1975Acct:[id number] Age/Sex: 49 / FADM Date: 12/13/24 Loc: HO.US Attending Dr: Reyes Otero MD Ordering Physician: Reyes Otero MD Date of Service: 12/13/24 Procedure(s): US arterial duplex BI w/ [place] Accession Number(s): [id number] cc: Dory Ray MD; Reyes Otero MD [...] 12/13/24 1410 DD/ 1240 TD/TT: 12/13/24 1310 Cabin Equipment Supervisor: us [facility] External Provider CV VASC ULAR PROCEDURES Final Result [facility] [address] [place] [phone] * [place] Esophagus Barium Swallow (11/14/2024 8:30 AM EDT) Anatomical Region Laterality Modality Head, Neck Radiographic [place] 11/14/2024 8:30 AM EDT Narrative 11/14/2024 9:39 AM EDT [place] [address] Fluoroscopy Report Signed Patient: Marlene Hicks MR#: [id number] : 1975 Acct:[id number] Age/Sex: 49 / F ADM Date: 11/14/24 Loc: HO.DANNY Attending Dr: Dory Wen MD Ordering Physician: Dory Ray MD Date of Service: 11/14/24 Procedure(s): FL barium swallow Accession Number(s): [id number] cc: Dory Ray MD EXAMINATION: XR BARIUM [...] OV> 11/14/2436 DD/ 9 TD/TT: 11/14/24 0845 Cabin Equipment Supervisor: [facility] Procedure Note Donotuseinterpreter, Image - 11/14/[address] [address] Fluoroscopy Report Signed Patient: Crissy Hicks#: [id number] : 1975Acct:[id number] Age/Sex: 49 / FADM Date: 11/14/24 Loc: HO.XRAY Attending Dr: Dory Wen MD Ordering Physician: Dory Ray MD Date of Service: 11/14/24 Procedure(s): FL barium swallow Accession Number(s): [id number] cc: Dory Ray MD EXAMINATION: XR BARIUM [...] Mendez Calle MD in OV> 11/14/24935 DD/ 9 TD/TT: 11/14/24 0845 Cabin Equipment Supervisor: [facility] us Dory Wen MD IMG FLUOROSCOPY PROCE DURES Final Result * CT Soft Tissue Neck w/ Contrast (11/08/2024 8:49 AM EDT) Anatomical Region Laterality Modality Head, Neck Computed Tomogra phy 11/08/2024 8:49 AM EDT Narrative 11/08/2024 9:18 AM EDT [place] [address] CT Scan Report Signed Patient: Marlene Hicks MR#: [id number] : 1975 Acct:[id number] Age/Sex: 49 / F ADM Date: 11/08/24 Loc: HO.CT Attending Dr: Cailin Iverson PLUGGING MACHINE OPERATOR Ordering Physician: Cailin Iverson Date of Service: 11/08/24 Procedure(s): CT soft tissue neck w IV con Accession Number(s): [id number] cc: Dory Ray MD; Cailin Iverson Report Number: [id number]: Total DLP = 216.00 mGy-cm EXAMINATION: CT [...] -Normal. Parapharyngeal Fat Planes: -Normal and undisturbed. Retail Presentation Specialist Spaces: -Normal. Anterior Cervical Space: -Normal. No [...] 11/08/24 0914 DD/ 0849 TD/TT: 11/08/24 0900 Cabin Equipment Supervisor: Procedure Note Donotuseinterpreter, Image - 11/08/[address] [address] [address] Scan Report Signed Patient: Crissy Hicks#: [id number] : 1975Acct:[id number] Age/Sex: 49 / FADM Date: 11/08/24 Loc: HO.CT Attending Dr: Cailin Iverson PLUGGING MACHINE OPERATOR Ordering Physician: Cailin Iverson Date of Service: 11/08/24 Procedure(s): CT soft tissue neck w IV con Accession Number(s): [id number] cc: Dory Ray MD; Cailin Iverson Report Number: [id number]: Total DLP = 216.00 mGy-cm EXAMINATION: CT [...] -Normal. Parapharyngeal Fat Planes: -Normal and undisturbed. Retail Presentation Specialist Spaces: -Normal. Anterior Cervical Space: -Normal. No [...] Michael Dhillon MD in OV> 11/08/24913 DD/ 0849 TD/TT: 11/08/24 0900 Cabin Equipment Supervisor: Result [facility] IMG CT PROCEDURES Final R esult * POCT Rapid Covid-19 BinaxNOW (11/01/2024 1:32 PM EDT) [facility] Rapid COVID Ag Negative QC Media Lot # [id number] Lot# Expiration Date 71,126 Nares 11/01/2024 1:32 PM EDT Result [facility] POINT OF CARE TEST ENTER/ EDIT ORDERABLES Final Result * POCT Rapid Influenza B OSOM (11/01/2024 1:32 PM EDT) [facility] Rapid Influenza B Ag Negative Negative, Indeterminate QC Media Lot # [id number] Lot# Expiration Date Swab 11/01/2024 1:32 PM EDT Result [facility] POINT OF CARE TEST ENTER/ EDIT ORDERABLES Final Result * POCT Rapid Influenza A OSOM (11/01/2024 1:32 PM EDT) [facility] Rapid Influenza A Ag Negative Negative, Indeterminate QC Media Lot # [id number] Lot# Expiration Date 1 Swab Nasopharyngeal structure / Unknown 11/01/2024 1:32 PM EDT Result [facility] POINT OF CARE TEST ENTER/ EDIT ORDERABLES Final Result * POCT Rapid Strep A OSOM (11/01/2024 1:32 PM EDT) [facility] Rapid Strep A Screen Negative Negative, None Detected QC Media Lot # [id number] Lot# Expiration Date 32,026 Swab 11/01/2024 1:32 PM EDT [facility] POINT OF CARE TEST ENTER/ EDIT ORDERABLES Final Result * (ABNORMAL) CBC auto differential (10/29/2024 11:49 AM EDT) White Blood Count 8.5 4.8 - 10.8 X10*3/uL [facility] Red Blood Count 3.86(L) 4.20 - 5.50 X10*6/uL [facility] Hemoglobin 12.3 12.0 - 16.0 g/dl [facility] Hematocrit 35.6(L) 37.0 - 47.0 % [facility] Mean Corpuscular Volume 92.2 80.0 - 98.0 fL [facility] Mean Corpuscular Hemoglobin 31.9 27.0 - 33.0 pg [facility] Mean Corpuscular HGB Conc 34.6 31.0 - 35.0 g/dl [facility] Red Cell Distribution Width 13.2 11.0 - 16.0 % [facility] Platelet Count 314 160 - 400 X10*3/uL [facility] Mean Platelet Volume 9.1(L) 9.4 - 12.3 fL [facility] Neutrophils Percent Auto 59.8 45 - 73 % [facility] Imm Gran Pct Auto 0.6(H) 0.0 - 0.4 % [facility] Lymphocytes Percent Auto 33.5 20 - 40 % [facility] Monocytes Percent Auto 5.0 2 - 11 % [facility] Eosinophils Percent Auto 0.9 0 - 4 % [facility] Basophils Percent Auto 0.2 0 - 2 % [facility] NRBC Pct Auto 0.0 0.0 - 0.2 /100WBC [facility] Neutrophils Absolute Auto 5.1 2.0 - 8.3 x10*3/uL [facility] Imm Gran Abs Auto 0.05(H) 0.00 - 0.03 X10*3/uL [facility] Lymphocytes Absolute Auto 2.8 1.2 - 4.9 X10*3/uL [facility] Monocytes Absolute Auto 0.4 0.1 - 1.2 X10*3/uL [facility] Eosinophils Absolute Auto 0.1 0.0 - 0.4 X10*3/uL [facility] Basophils Absolute Auto 0.0 0.0 - 0.2 X10*3/uL [facility] NRBC Abs Auto 0.000 0.0 - 0.012 X10*3/uL [facility] 10/29/2024 11:4 9 AM EDT 10/29/2024 12:01 PM EDT us Generic External Data Provider LAB BLOOD ORDERAB LES Final Result [facility] [address] [place] [phone] * Comprehensive Metabolic Panel (10/29/2024 11:49 AM EDT) Sodium 140 135 - 145 mmol/L [facility] Potassium 3.6 3.3 - 5.1 mmol/L [facility] Chloride 104 96 - 108 mmol/L [facility] Carbon Dioxide 27 22 - 29 mmol/L [facility] Anion Gap 13 12 - 20 [facility] Urea Nitrogen (BUN) 9 9 - 16 mg/dL [facility] Creatinine, Serum 0.81 0.5 - 1.4 mg/dL [facility] Creatinine Clr Calc Pharmacy 80.5 [facility] Comment:Provided height and weight: 162.56 cm,73.1 kg.eGFR (calculated from the MDRD study equation) and eCrCl(calculated from the Cockcroft-Gault equation) are based ondifferent parameters and may not yield comparable results.If eCrCl result is absurd, please check patient'sheight/weight. Estimated Glomerular Filt Rate >60 [facility] Comment:Chronic Kidney Disea se: Estimated GFR < 60 mL/min/1.41x9Sqnekl Kidney Disease: Estimated GFR < 15 mL/min/1.73m2 Glucose 92 60 - 115 mg/dL [facility] Calcium 9.5 8.4 - 10.2 mg/dL [facility] Bilirubin, Total 0.3 0.0 - 1.0 mg/dL [facility] Aspartate Amino Transferase 26 5 - 31 U/L [facility] Alanine Aminotransferase 18 0 - 31 U/L [facility] Total Protein 7.7 6.5 - 8.0 g/dL [facility] Albumin Level 4.7 3.5 - 5.0 g/dL [facility] Alkaline Phosphatase 47 39 - 117 U/L [facility] 10/29/2024 11:4 9 AM EDT 10/29/2024 12:01 PM EDT us Generic External Data Provider LAB BLOOD ORDERAB LES Final Result Performing Organization Address City/State/[facility] Co de Phone Number [facility] [address] [place] [phone] * BI Mammogram Screening Tomosynthesis Bilateral (06/27/2024 11:45 AM EDT) Anatomical Region Laterality Modality Breast Bilateral Mammography 06/27/2024 11:4 5 AM EDT Narrative 07/03/2024 5:46 PM EDT [facility] [address] [place] [address] Mammography Report Signed Patient: Marlene Hicks MR#: [id number] : 1975 Acct:[id number] Age/Sex: 48 / F ADM Date: 06/27/24 Loc: HAL Attending Dr: Dory Wen MD Ordering Physician: Dory Ray MD Results: 1Negative Date of Service: 06/27/24 Follow Up: 1 Year From Orig inal Mammogram Procedure(s): MM tomosynthesis screening BI Accession Number(s): [id number] cc: Dory Ray MD EXAMINATION: MM SCREENING [...] 07/03/24 1743 DD/ 1145 TD/TT: 06/27/24 1200 Cabin Equipment Supervisor: Procedure Note Donotuseinterpreter, Image - 07/03/2024 [facility] [address] [place] [address] Mammography Report Signed Patient: Crissy Hicks#: [id number] : 1975Acct:[id number] Age/Sex: 48 / FADM Date: 06/27/24 Loc: HO.MAMMO Attending Dr: Dory Wen MD Ordering Physician: Dory Ray MDResults: 1Negative Date of Service: 06/27/24Follow Up: 1 Year From Orig inal Mammogram Procedure(s): MM tomosynthesis screening BI Accession Number(s): [id number] cc: Dory Ray MD EXAMINATION: MM SCREENING [...] 07/03/24 1743 DD/ 1145 TD/TT: 06/27/24 1200 Cabin Equipment Supervisor: us Dory Wen MD IMG BI PROCEDURES Fin al Result * Hepatitis C Ab (06/26/2024 9:38 AM EDT) Hepatitis C Antibody Nonreactive Nonreactive [facility] Comment:Antibodies to HCV no t detected; does not exclude early acuteHCV infection. 06/26/2024 9:38 AM EDT 06/26/2024 9:38 AM EDT us Generic External Data Provider LAB BLOOD ORDERAB LES Final Result [facility] [address] [place] [phone] * HIV-1/2 Antigen and Antibodies, Fourth Generation, with Reflexes (06/26/2024 9:38 AM EDT) HIV AB/AG Nonreactive Nonreactive [facility] Comment:HIV-1 p24 Ag and/or HIV-1/HIV-2 Ab not detected.A test result that is nonreactive does not exclude thepossibility of exposure to or infection with HIV-1 and/orHIV-2. Nonreactive results in this assay for individualswith prior exposure to HIV-1 and/or HIV-2 may be due toantigen and antibody levels that are below the limit ofdetection of this assay.The [employer] HIV Ag/Ab Combo assay result andsupplemental assay results should be interpreted inconjunction with the patient's clinical presentation,history and other laboratory results. If the results areinconsistent with clinical evidence, additional testing issuggested to confirm the result. 06/26/2024 9:38 AM EDT 06/26/2024 9:38 AM EDT us Generic External Data Provider LAB BLOOD ORDERAB LES Final Result [facility] [address] [place] [phone] * HPV mRNA E6/E7 w/Reflex to HPV Genotypes 16, 18/45 (07/19/2023 9:21 AM EDT) Pathologist [facility] [place] HPV nRNA E6/E7 Not Detected Not Detected [facility] Comment:Methodology: Transcr iption-Mediated AmplificationThis assay detects E6/E7 viral messenger RNA (mRNA) from 14high-risk HPV types (16,18,31,33,35,39,45,51,52,56,58,59,66,68).Cervical sources are required for HPV testing.If a vaginal source from a patient who has had atotal hysterectomy with removal of cervix wassubmitted, please contact the testing laboratoryfor alternative testing options.For additional information, please refer tohttp://education.[facility]/faq/AFF793e4(This link if provided for information/educational purposes only.)THIS TEST WAS PERFORMED AT:[employer] [place] [phone] WONG MD HPV mRNA E6/E7 TNP [facility] HPV 16 RNA [facility] HPV 18/45 RNA [facility] 07/19/2023 9:21 AM EDT 07/20/2023 9:05 AM EDT us Generic External Data Provider LAB CYTOLOGY ORDE RABLES Final Result Performing Organization Address [facility] Co de Phone Number [facility] [address] [place] [phone] * (ABNORMAL) Lipid Panel, Standard (06/16/2023 10:01 AM EDT) Triglycerides 107 <150 mg/dL [facility] Comment:Desirable Triglyceri de: less than 150 mg/dLBorderline High Triglyceride 150-199 mg/dLHigh Triglyceride: 200-499 mg/dLVery High Triglyceride: greater than or equal to 5OO mg/dL Cholesterol 191 <200 mg/dL [facility] Comment:Desirable Cholestero l: less than 200 mg/dLBorderline High Cholesterol: 200-239 mg/dLHigh Cholesterol: greater than 239 mg/dL LDL Cholesterol Calculated 137(H) <100 mg/dL [facility] Comment:Desirable LDL: less than 100 mg/dLNear Optimal/Above Optimal LDL: 110- 129 mg/dLBorderline High LDL: 130-159 mg/dLHigh LDL: 160-189 mg/dLVery High LDL: greater than or equal to 190 mg/dL HDL Cholesterol 33(L) >40 mg/dL [facility] Comment:Desirable HDL: great er than 40 mg/dL Note: This HDL assay may give artificially low results in patients with liver disease. Blood Venous blood specimen / Unknown 06/16/2023 10:01 AM EDT 06/16/2023 11:27 AM EDT us Dory Wen MD LAB BLOOD ORDERABLES Final Result Performing Organization Address City/[facility]/ZIP Co de Phone Number [facility] [address] [place] [phone] * Pap Smear (02/21/2023 2:25 PM EST) 02/21/2023 2:25 PM EST 02/22/2023 10:30 AM EST Narrative [facility] - 03/07/2023 8:53 PM EST ----- ------- Name: Marlene Hicks Age/Sex: 47/F : 1975 Unit#: [id number] Attend Dr: Macho Sarkar MD Re02/21/23 Status: DEP REF Location: HO.LNP Disch: ----- ------- SPEC : [id number] RECD: 02/22/230 STATUS: JELLY FARRELL NUM: [id number] TREVON: 02/21/23-[address] [facility] [address]: Macho Sarkar MD ENTERED: 02/22/23-1217 SP [...] 59, 66, 68) HPV testing performed by [employer], [place], [place]. See reference laboratory portion of the EMR for entire report. Clinical Information LMP: Postmenopausal Previous PAP test: Unknown date/findings Other history: Abnormal uterine and vaginal bleeding. Material Received ThinPrep-Cervical Copies To: Dory Ray MD [address] [place] [address] Macho Sarkar MD [address] [place] [address] Dr. [place]uluaga [address] [place] [phone] ----- ------- Signed (signature on file) Abbie Saunders MD 03/07/232052 ----- ------- END OF REPORT us Generic External Data Provider LAB CYTOLOGY NEFTALI ROLLINS Final Result [facility] [address] [place] [phone] * Cologuard?? colon cancer screening (12/27/2022 9:47 AM EDT) Cologuard Result Negative Negative 01/07/20 5:43 PM EDT [facility] (CLIA #:[id number]) Comment: NEGATIVE TEST RESULT. A negative Cologuard [...] Dillon et al, N Engl J Med 2014;370(14):0186-4491) The normal value (reference range) for this assay is negative. COLOGUARD RE-SCREENING RECOMMENDATION: Periodic colorectal cancer screening is an important part of preventive healthcare for asymptomatic individuals at average risk for colorectal cancer. Following a negative Cologuard result, the [place] [employer] and U.S. Multi-Society Task Force screening guidelines recommend a Cologuard re-screening interval of 3 years. References: [place] [employer] Guideline for Colorectal Cancer Screening: https://www.cancer.org/cancer/vegru-ejoprz-iglzyb/hbaabpiec-ioxbaunbm-nkqxgte/ac s-rec ommendations.html.; Yossi DK, Katja TELLEZ, Mona LugoK, Colorectal Cancer Screening: Recommendations for Physicians and Patients from the U.S. Multi-Society Task Force on Colorectal Cancer Screening , Am J Gastroenterology 2017; 112:6887-6986. TEST DESCRIPTION: Composite algorithmic analysis of stool [...] colonoscopy. (Anum Garcia, N Engl J Med 2014;370(14):9884-8208.) Cologuard may produce a false negative or false positive result (no colorectal cancer or precancerous polyp present at colonoscopy follow up). A negative Cologuard test result does not guarantee the absence of CRC or advanced adenoma (pre-cancer). The current Cologuard screening interval is every 3 years. ([place] [employer] and U.S. Multi-Society Task Force). Cologuard performance data in a 10,000 patient pivotal study using colonoscopy as the reference method can be accessed at the following location: www.[employer] [facility].TouchFrame/results. Additional description of the Cologuard test process, warnings and precautions can be found at www.CertiVoxoguard.com. Stool specimen (specimen) 12/27/2022 9:47 AM EDT 12/29/2022 7:44 PM EDT Dory Wen MD LAB MOLECULAR DIAGNOS TICS ORDERABLES Final Result [facility] (CLIA #:[id number]) [place] [address], from Last 3 Months or Most Recently Relevant to Health Maintenance [facility] Care Teams Swinging Cut Off Saw Operator Relationship Specialty Start Date End Date Dory Ray MD [address] [place] [phone] PCP - General Family Medicine 01/03/19 Jeane Lemons Reporting ManagerStockholder 11/09/23
--- OUTSIDE RECORDS SUMMARY | 2025-01-21 09:44 | XMS_ITS | Encounter Summary ---
Author Organization [employer] Address [address] [place] [address] 7 [place] [address] Care Team Providers Care Behavioral Psychologist Name Role Phone Dory Ray MD Primary Care Provide r Le Us Unavailable Reason for Visit * Reason Comments Med Refill Encounter Details Date Type Department Care Team ([facility] st Contact Info) Description 08/17/2024 Refill [facility] MEDICINE [address] [place] [address] Dory Ray MD [address] [place], [place] [phone] Generalized anxiety disorder Social History Tobacco Use [...] Description 03/22/2025 10:30 AM EST Office Visit [facility] OPTOMETRY [address] [place] [address] Jerrell, Megan, OD [address] [place] [address] documented as of this encounter Goals Goal [...] documented as of this encounter Care Teams Behavioral Psychologist Relationship Specialty Start Date End Date Dory Ray MD [address] [place] [address] PCP - General Family Medicine 01/03/19 Le Us 10/30/24 11/05/24 Jeane Lemons Trimmer HandSupervisor P[employer] 11/09/23 documented as of this encounter
--- OUTSIDE RECORDS SUMMARY | 2025-01-21 09:44 | XMS_ITS | Clinical Summary ---
Author Organization [facility] Address [address] [place] [phone] Phone Care Team Providers Care Construction Lineman Name Role Phone Dory Ray MD Primary [...] Immunization Administration Dates Next Due Hepatitis B (Bizxstn-G-Libnd , Recombivax HB-Adult) 19yo and older 01/18/2007,08/24/2006 [...] FASCT F/ARM&WRST FLXR/XTNSR W/O DBRDMT; COMMENT: [address] [facility] Compartment/[place]'s Release, Dr. Luo Medical History [...] 03/07/2022 Social Influencers of Health Screening 03/07/2022 RSV Immunization Adult Patients (1 - Risk 50-74 years 1-dose series) 07/26/2023 Zoster Vaccines (1 of 2) 07/26/2023 Depression [...] Recently Relevant to Health Maintenance Care Teams Construction Lineman Relationship Specialty Start Date End Date Dory Ray MD [address] [place] [phone] PCP - General Internal Medicine 12/30/20
--- OUTSIDE RECORDS SUMMARY | 2025-01-21 09:44 | XMS_ITS | Encounter Summary ---
Author Organization [employer] Address [address] [facility] 7[address] [place] [address] Care Team Providers Care Granite Installer Name Role Phone oDry Ray MD Primary Care Provide r Le sU Unavailable Reason for Visit * Reason Comments Med Refill Encounter Details Date Type Department Care Team (Late st Contact Info) Description 07/29/2024 Refill [facility] MEDICINE [address] [place] [address] Katerine Killian MD [address] [place] [address] Chronic right-sided low back pain with right-sided [...] [facility] [address] [place] [address] Jerrell, Nathalia, OD [address] [place] [address] documented as of this encounter Goals Goal [...] documented as of this encounter Care Teams Granite Installer Relationship Specialty Start Date End Date Dory Ray MD [address] [place] [address] PCP - General Family Medicine 01/03/19 Le Us 10/30/24 11/05/24 Jeane Lemons Video EditorRestaurant Inspector 11/09/23 documented as of this encounter
--- OUTSIDE RECORDS SUMMARY | 2025-01-21 09:44 | XMS_ITS | Encounter Summary ---
Author Organization [employer] Address [address] [facility] 7t [place] [address] Care Team Providers Care Building Code Administrator Name Role Phone Dory Ray MD Primary Care Provide r Le Us Unavailable Reason for Visit * Reason Comments Med Refill Encounter Details Date Type Department Care Team ([facility] st Contact Info) Description 01/17/2023 Refill [facility] MEDICINE [address] [place] [address] Dory Ray MD [address] [place], [place] [phone] Migraine without status migrainosus, not intractable, unspecified [...] Office Visit [facility] OPTOMETRY [address] [place] [address] Nathalia Allan, MEDINA [address] [place] [address] documented as of this encounter Visit Diagnoses Diagnosis Migraine without status migrainosus, not intractable, unspecified migraine type Chronic right-sided low back pain with right-sided sciatica documented in this encounter Additional Health Concerns Assessment Noted Time PHQ-9 Depression Total Score: 24 023 9:07 AM EDT documented as of this encounter Care Teams Building Code Administrator Relationship Specialty Start Date End Date Dory Ray MD [address] [place] [address] PCP - General Family Medicine 01/03/19 Le Us 10/30/24 11/05/24 Jeane Lemons Hydraulic Punch Press OperatorSenior Trial Attorney 11/09/23 documented as of this encounter
--- OUTSIDE RECORDS SUMMARY | 2025-01-21 09:45 | XMS_ITS | Encounter Summary ---
Author Organization [employer] Address [address] [place] [address] 7 [place] [address] Care Team Providers Care Counter Intelligence Agent Name Role Phone Dory Ray MD Primary Care Provide r Le Us Unavailable Reason for Visit * Reason Comments Med Refill Encounter Details Date Type Department Care Team (Late Contact Info) Description 11/26/2022 Refill [facility] [address] [place] [address] Name, MD Soy [address] [place] [address] Migraine without status migrainosus, not intractable, unspecified [...] Description 03/22/2025 10:30 AM EST Office Visit [facility] OPTOMETRY [address] [place], [place] [phone] Nathalia Allan, OD [address] [place] [address] documented as of this encounter Visit Diagnoses Diagnosis Migraine without status migrainosus, not intractable, unspecified migraine type documented in this encounter Additional Health Concerns Assessment Noted Time PHQ-9 Depression Total Score: 21 023 9:24 AM EDT documented as of this encounter Care Teams Counter Intelligence Agent Relationship Specialty Start Date End Date Dory Ray MD [address] [place] [phone] PCP - General Family Medicine 01/03/19 Le Us 10/30/24 11/05/24 Jeane Lemons Tennis Ball Coverer HandSample Checker 11/09/23 documented as of this encounter
--- OUTSIDE RECORDS SUMMARY | 2025-01-21 09:45 | XMS_ITS | Encounter Summary ---
Author Organization [employer] Address [address] [place] [address] [address] [place] [address] Care Team Providers Care Autoglazier Name Role Phone Dory Ray MD Primary Care Provide r Le Us Unavailable Reason for Visit * Reason Comments Med Refill Encounter Details Date Type Department Care Team (Late Contact Info) Description 12/09/2022 Refill [facility] MEDICINE [address] [place] [address] Dory Ray MD [address] [place] [address] Anxiety Social History Tobacco Use Types Packs/Day [...] Description 03/22/2025 10:30 AM EST Office Visit [facility] OPTOMETRY [address] [place] [address] Nathalai Allan OD [address] [place] [address] documented as of this encounter Visit Diagnoses Diagnosis Anxiety Anxiety state, unspecified documented in this encounter Additional Health Concerns Assessment Noted Time PHQ-9 Depression Total Score: 21 023 9:24 AM EDT documented as of this encounter Care Teams Autoglazier Relationship Specialty Start Date End Date Dory Ray MD [address] [place] [address] PCP - General Family Medicine 01/03/19 Le Us 10/30/24 11/05/24 Jeane Lemons Associate Professor PhysicianPleasure Craft Sailor 11/09/23 documented as of this encounter
--- OUTSIDE RECORDS SUMMARY | 2025-01-21 09:45 | XMS_ITS | Encounter Summary ---
Author Organization [employer] Address [address] [place] [address] 7 [place] [address] Care Team Providers Care Machine Mover Name Role Phone Dory Ray MD Primary Care Provide r Le Us Unavailable Reason for Visit * Reason Onset Date Comments antibiotic 12/09/2022 Encounter Details Date Type Department Care Team ([facility] st Contact Info) Description 12/09/2022 Telephone [facility] ADULT DENTAL [address] [place] [address] Dashawn Garcia DDS [address] [place], [place] [phone] antibiotic Social History Tobacco Use Types Packs/Day [...] after 6 on 12/09 to speak to instrument/control technician and nothing was sent to pharmacy instrument/control technician side either. Can something be sent to [...] she can call back and speak to instrument/control technician Or go to the emergency room. Patient understood DR documented in this encounter Plan of Treatment Upcoming Encounters Date Type Department Care Team (Late st Contact Info) Description 03/22/2025 10:30 AM EST Office Visit [facility] OPTOMETRY [address] [place] [address] Nathalia Allan, OD [address] [place] [address] documented as of this encounter Visit Diagnoses Not on filedocumented in this encounter Additional Health Concerns Assessment Noted Time PHQ-9 Depression Total Score: 21 023 9:24 AM EDT documented as of this encounter Care Teams Machine Mover Relationship Specialty Start Date End Date Dory Ray MD [address] [place] [address] PCP - General Family Medicine 01/03/19 Le Us 10/30/24 11/05/24 Jeane Lemons Track Template MakerExecutive Candidate Developer 11/09/23 documented as of this encounter
--- OUTSIDE RECORDS SUMMARY | 2025-01-21 09:45 | XMS_ITS | Encounter Summary ---
Author Organization [employer] Address [address] [place] [address] 7 [place] [address] Care Team Providers Care Mobile Game Engineer Name Role Phone Dory Ray MD Primary Care Provide r Le Us Unavailable Reason for Visit * Reason Comments Med Refill Encounter Details Date Type Department Care Team (Late Contact Info) Description 11/16/2022 Refill [facility] MEDICINE [address] [place] [address] Eden Cobb MD [address] [place] [address] Anxiety Social History Tobacco Use Types Packs/Day [...] Description 03/22/2025 10:30 AM EST Office Visit [facility] OPTOMETRY [address] [place] [address] Nathalia Allan, OD [address] [place] [address] documented as of this encounter Visit Diagnoses Diagnosis Anxiety Anxiety state, unspecified documented in this encounter Additional Health Concerns Assessment Noted Time PHQ-9 Depression Total Score: 21 023 9:24 AM EDT documented as of this encounter Care Teams Mobile Game Engineer Relationship Specialty Start Date End Date Dory Ray MD [address] [place] [address] PCP - General Family Medicine 01/03/19 Le Us 10/30/24 11/05/24 Jeane Lemons Aws Solution ArchitectIcing Machine Operator 11/09/23 documented as of this encounter
--- OUTSIDE RECORDS SUMMARY | 2025-01-21 09:45 | XMS_ITS | Encounter Summary ---
Author Organization [employer] Address [address] [facility] [address] [place] [address] Care Team Providers Care Brake Repair Supervisor Name Role Phone Dory Ray MD Primary Care Provide r Reason for Visit * Reason Onset Date Comments Letter Request 01/17/2025 I called the pat ient, regarding a request for a letter for [...] She constantly uses bug spray, which is caus Encounter Details Date Type Department Care Team ([facility] st Contact Info) Description 01/17/2025 Telephone [facility] MEDICINE [address] [place] [address] Dory Ray MD [address] [place], [place] [phone] Letter Request (I called the patient, regarding [...] constantly uses bug spray, which is caus) Social History Tobacco Use Types Packs/Day Years [...] encounter Miscellaneous Notes * Telephone Encounter - Gabby Marte [place] - 01/17/2025 3:47 PM EDT I called the patient, regarding a request for a letter for a first floor apartment. She stated thatgale lives on a second floor, but has [...] She constantly uses bug spray, which is causing her to become ill, and she is developing sores in her nose. She states that she and the other tenants have made complaints to the landlord, but instead of solving the problem, they have sold the property to someone else. documented in this encounter Plan of Treatment Upcoming Encounters Date Type Department Care Team (Late st Contact Info) Description 03/22/2025 10:30 AM EST Office Visit [facility] OPTOMETRY [address] [place], [place] [phone] Nathalia Allan, OD [address] [place] [address] documented as of this encounter Goals Goal Patient Goal Type Associated Problems Recent Progress Patient-Stated? Author Smoking cessation General No change(2023 2:25 PM EDT) No Kiah Cisneros, MichaelD Note: Maintain current progress, smoke 8 cigarettes per day or less. documented as of this encounter Visit Diagnoses Not on filedocumented in this encounter Additional Health Concerns Assessment Noted Time PHQ-9 Depression Total Score: 6 01/10/20 25 10:47 AM EDT documented as of this encounter Care Teams Brake Repair Supervisor Relationship Specialty Start Date End Date Dory Ray MD [address] [place] [address] PCP - General Family Medicine 01/03/19 Jeane Lemons Poultry VeterinarianGlass Installer Technician 11/09/23 documented as of this encounter
--- OUTSIDE RECORDS SUMMARY | 2025-01-21 09:46 | XMS_ITS | Encounter Summary ---
Author Organization [employer] Address [address] [facility] [address] [place] [address] Care Team Providers Care Index Editor Name Role Phone Dory Ray MD Primary Care Provide r Le Us Unavailable Reason for Visit * Reason Comments Med Refill Encounter Details Date Type Department Care Team (Late st Contact Info) Description 12/29/2022 Refill [facility] MED & PEDS [address] [place] [address] Sunshine James, [address] [place] [address] Strain of neck muscle, initial encounter; Neck [...] Description 03/22/2025 10:30 AM EST Office Visit [facility] OPTOMETRY [address] [place], [place] [phone] Nathalia Allan, MEDINA [address] [place], [place] [phone] documented as of this encounter Visit Diagnoses Diagnosis Strain of neck muscle, initial encounter Neck pain Cervicalgia documented in this encounter Additional Health Concerns Assessment Noted Time PHQ-9 Depression Total Score: 24 023 9:07 AM EDT documented as of this encounter Care Teams Index Editor Relationship Specialty Start Date End Date Dory Ray MD [address] [place] [address] PCP - General Family Medicine 01/03/19 Le Us 10/30/24 11/05/24 Jeane Lemons Supervisor Case LoadingRailroad Detective 11/09/23 documented as of this encounter
--- OUTSIDE RECORDS SUMMARY | 2025-01-21 09:46 | XMS_ITS | Encounter Summary ---
Author Organization [employer] Address [address] [facility] [address] [place] [address] Care Team Providers Care Microsoft Dynamics Consultant Name Role Phone Dory Ray MD Primary Care Provide r Le Us Unavailable Encounter Details Date Type Department Care Team ([facility] st Contact Info) Description 01/12/2023 Abstract [facility] [address] [place], [place] [phone] Dory Ray MD [address] [place], [place] [phone] Social History Tobacco Use Types Packs/Day Years [...] 10:30 AM EST Office Visit [facility] OPTOMETRY [address] [place], [place] [phone] Nathalia Allan, OD [address] [place] [address] documented as of this encounter Visit Diagnoses Not on filedocumented in this encounter Additional Health Concerns Assessment Noted Time PHQ-9 Depression Total Score: 24 023 9:07 AM EDT documented as of this encounter Care Teams Microsoft Dynamics Consultant Relationship Specialty Start Date End Date Dory Ray MD [address] [place] [address] PCP - General Family Medicine 01/03/19 Le Us 10/30/24 11/05/24 Jeane Lemons Stone BreakerClothing Busheler 11/09/23 documented as of this encounter
--- OUTSIDE RECORDS SUMMARY | 2025-01-21 09:46 | XMS_ITS | Encounter Summary ---
Author Organization [employer] Address [address] [facility] [address] [place] [address] Care Team Providers Care Sleeve Setter Name Role Phone Dory Ray MD Primary Care Provide r Le Us Unavailable Encounter Details Date Type Department Care Team ([facility] st Contact Info) Description 01/12/2023 Abstract [facility] MEDICINE [address] [place], [place] [phone] Dory Ray MD [address] [place], [place] [phone] Social History Tobacco Use Types Packs/Day Years [...] [facility] OPTOMETRY [address] [place], [place] [phone] Nathalia Allan, OD [address] [place] [address] documented as of this encounter Visit Diagnoses Not on filedocumented in this encounter Additional Health Concerns Assessment Noted Time PHQ-9 Depression Total Score: 24 023 9:07 AM EDT documented as of this encounter Care Teams Sleeve Setter Relationship Specialty Start Date End Date Dory Ray MD [address] [place] [address] PCP - General Family Medicine 01/03/19 Le Us 10/30/24 11/05/24 Jeane Lemons Material EngineerElevator Installer 11/09/23 documented as of this encounter
== END ==
LOC: HO.CARD 08:44
PROVIDERS: PCP Internal Medicine; Visit Provider Nurse Practitioner Family
DX: R00.2 Palpitations (principal)
CPT/HCPCS: 93242

== ENCOUNTER → 2025-01-21 08:47 | Outpatient (BNV) | payer MEDICAID, SELFPAY | PROVIDERS: PCP Internal Medicine; Visit Provider Internal Medicine | DX: I49.3 Ventricular premature depolarization (principal); I47.10 Supraventricular tachycardia, unspecified | CPT/HCPCS: 93244 ==